=== PATIENT | female | born 1955 | race Caucasian/White ===

== ENCOUNTER → 2018-12-05 16:39 | Outpatient (CLI) | payer OTHER, SELFPAY ==
--- NOTE | 2018-12-05 16:43 | US_ITS ---
STUDY: RENAL ULTRASOUND - COMPLETE REASON FOR EXAM: Female, 63 years old. Recurrent UTI TECHNIQUE: Ultrasound evaluation of the kidneys was performed with real-time and static garcia-scale imaging. COMPARISON: None. FINDINGS: RIGHT KIDNEY: Normal location of the right kidney, which is normal in size. The right kidney measures 11.5 x 6.8 x 6.7 cm. There is a normal cortex of the right kidney. The renal cortex measures 1.5 cm. There is no right renal mass or cyst. There are no right renal calculi. There is moderate hydronephrosis of the right kidney. DISTAL RIGHT URETER: There is non-visualization of the distal right ureter. There is no demonstrated right ureterovesical junction calculus. There is a visualized right ureteral jet. LEFT KIDNEY: Normal location of the left kidney, which is normal in size. The left kidney measures 11.8 x 6.5 x 5.5 cm. There is a normal cortex of the left kidney. The renal cortex measures 1.5 cm. There is no left renal mass or cyst. There are no left renal calculi. There is no left hydronephrosis. DISTAL LEFT URETER: There is non-visualization of the distal left ureter. There is no demonstrated left ureterovesical junction calculus. There is a visualized left ureteral jet. AORTA: There is no demonstrated aneurysm.. I.V.C.: The IVC is patent. BLADDER: The distended urinary bladder has a volume of 147 ml. The empty urinary bladder has a volume of 7.4 ml. There is a normal wall thickness of the distended urinary bladder. There is no demonstrated mass within the urinary bladder. There are no demonstrated bladder calculi. US/Kidney and Bladder IMPRESSION: Moderate right-sided hydronephrosis persistent after voiding. Electronically Signed: Russell Rondon, at 8:15 EDT Tel , Service support ,
== END ==
PROVIDERS: Family Provider Family Medicine; PCP Family Medicine; Referring Provider Urology; Visit Provider Urology
DX: Z87.440 Personal history of urinary (tract) infections (principal)
CPT/HCPCS: 76770

== ENCOUNTER 2018-12-14 08:37 | Inpatient (IN) | payer OTHER, SELFPAY ==
[2018-12-14] VITALS (8 sets, daily range): BP systolic 93–168; BP diastolic 66–82; PULSE 62–121; RESP 16–18; TEMP 36.8–37.2; O2SAT 94–98; BMI 37.3; BMI 101.7
--- NOTE | 2018-12-14 08:52 | CT_ITS ---
STUDY: CT ABDOMEN AND PELVIS WITHOUT CONTRAST REASON FOR EXAM: Female, 63 years old. Left abdominal pain. Recurrent UTIs. RADIATION DOSAGE (If Supplied By Facility): CTDIvol = ( 21.76 ) mGy, DLP = ( 1174.31 ) mGycm TECHNIQUE: Transaxial images were obtained from the dome of the diaphragm to the symphysis pubis without oral contrast, and without intravenous contrast. Sagittal and coronal images were reconstructed. Individualized dose optimization techniques were used for this CT. COMPARISON: Renal ultrasound, December 04, 2018. FINDINGS: The visualized lung bases are unremarkable. The visualized portions of the heart are within normal limits. Liver is mildly enlarged but uniform in density. Normal gallbladder and extrahepatic biliary system. Normal spleen. Normal pancreas. There is a 1.8 x 0.9 x 1 cm hypodense mass in the right adrenal gland. There is a 2.4 x 2.2 x 2.1 cm hypoechoic mass in left adrenal gland. Both suggest adenomas. The right kidney is of normal size cortical thickness. There is marked hydronephrosis. There is a 1.7 x 1.1 x 1.2 cm obstructing calculus at the UPJ. Normal distal ureter. The left kidney is of normal size and cortical thickness. There is mild stranding of the perinephric fat. There is mild hydronephrosis with a 8 mm obstructing calculus in the upper ureter at the level of the L3 vertebra (image 94, series 2). The distal ureter is unremarkable. There is evidence of gastric bypass surgery. Normal small intestine. Normal colon. The appendix is visualized and appears normal. There is diffuse atherosclerotic calcification of the abdominal aorta, without a demonstrated aneurysm. There is an IVC filter in place. Normal retroperitoneum. Normal urinary bladder. S is small in size with multiple calcifications along its periphery and within the broad ligament. No adnexal mass. There is no pelvic lymphadenopathy. No free air or free fluid is seen within the peritoneal cavity. Surgical clips in the right lower abdominal wall. The abdominal wall is otherwise unremarkable. There is flattening of the lumbar lordosis with diffuse degenerative changes. There are mild degenerative changes bilateral hips. CT/Abdomen/Pelvis without Cont IMPRESSION: 1. Large obstructing right UPJ calculus with marked right obstructive uropathy. 2. Left upper ureteral calculus with mild left obstructive uropathy. 3. Bilateral adrenal adenomas 4. Status post gastric bypass surgery. 5. Degenerative changes of the lumbar spine and hips. N.B. : The above information has been verbally conveyed by Dell Burnett DO to Asad Kline MD, on 12/14/2018 09:37:02 (ET). Electronically Signed: Dell Burnett DO at 9:37 EDT Tel [phone], Service support ,
--- NOTE | 2018-12-14 08:53 | ED.VISSUMM ---
- ER Visit Summary Date of Service: 12/14/18 Chief Complaint: Abdominal pain History of Present Illness: The patient is a 63 F with left lower quadrant and left flank pain. Symptoms started fairly suddenly last night around 7 PM. Associated with nausea, hematuria, chills. Patient has a history of kidney stones. She tried Tylenol with no improvement. Patient also reports a history of UTIs and also a right kidney blockage. She sees Dr. Wharton. Physical Examination: Afebrile and vital signs unremarkable. Patient alert and oriented. No acute distress. Heart regular. Lungs clear. Abdomen tender in the left lower quadrant. No guarding or rebound. Skin appears normal without pallor or jaundice. Test Results: Laboratory studies, urinalysis, CT abdomen/pelvis pending. Emergency Department Course and Treatment: Patient treated with morphine and Zofran and IV fluids while awaiting results. CBC unremarkable. Glucose 133, BUN 20, creatinine 1.13. Urine shows leukocyte esterase, 5-10 white cells and 0-[address] shows a large right UPJ calculus measuring 1.7 cm. Left ureteral calculus measuring 8 mm. Bilateral adrenal adenomas and postoperative changes. Patient required multiple doses of pain medication and had continued severe pain. I attempted to call her urologist who was out of town. I spoke with Dr. Allen who will admit for further care. Treatment Plan: As above Disposition: Admission Impression: 1. Ureteral colic This note was generated with [email or web address] dictation software. It may contain incorrect words, spelling, and punctuation that were not noted in review of the chart prior to signing ED Disposition - Plan for ED Patient: Referrals: Jeet Diaz III, MD [Primary Care Provider] -
[2018-12-14] MEDS: 0.9% Normal Saline 1,000 ML 1000 ML IV (08:58)
[2018-12-14] MEDS: Morphine 4 MG/ML Syringe IV (08:58)
[2018-12-14] MEDS: Ondansetron 4 MG/2 ML Vial IV (08:59)
[2018-12-14 09:06] LABS: Bacteria 0 SEEN /hpf (None Seen); Mucous, Urine 0 SEEN /hpf (<or=2+)
[2018-12-14 09:12] LABS: Absolute Lymphocyte Count 2.08 X10^3/ul (0.83-4.51); Absolute Neutrophil Count 7.4 X10^3/uL (2.0-7.7); Basophil# 0.03 X10^3/uL; Basophil% 0.3 % (0-1); Eosinophil# 0.07 X10^3/uL; Eosinophils% 0.7 % (0-5); Hematocrit 39.5 % (37-47); Hemoglobin 13.7 g/dl (12.0-15.0); Lymphocyte # 2.08 X10^3/ul (4.0); Lymphocyte % 20.1 % (19-41); Mean Corp Hgb Conc 34.7 g/gl (32-36); Mean Corpuscular Hgb 31.1 pg (27.0-32.0); Mean Corpuscular Volume 89.8 fL (81-99); Mean Platelet Vol. 9.6 fl (6.2-12.0); Monocyte# 0.74 X10^3/uL; Monocyte% 7.2 % (0-10); Neutrophil # 7.39 X10^3/uL (2.7-7.7); Neutrophil % 71.5 % (47-70); POSITIVE COUNT NO; POSITIVE DIFFERENTIAL NO; POSITIVE MORPHOLOGY NO; Platelet Count 252 K/mm3 (150-450); RBC Distribution Width CV 13.5 % (11.6-14.6); White Blood Count 10.3 K/mm3 (4.4-11.0)
[2018-12-14 09:16] LABS: Color, Urine Yellow (Yellow); Glucose, Dipstick Normal (Normal); Ketone-Dipstick Negative (Negative); Leukocyte Esterase-Dipstick 500 /ul (Negative); Nitrite-Dipstick Negative (Negative); Occult Blood-Urine 150 /ul (Negative); Protein-Dipstick Negative (Negative); Urine Bilirubin Dipstick Negative (Negative); Urine Clarity Clear (Clear); Urine Urobilinogen Normal (Normal)
[2018-12-14 09:23] LABS: Squamous Epithelial Cells - UA 0-5 SEEN /hpf (5-10); White Blood Cells 5-10 SEEN /hpf (0-5)
[2018-12-14 09:24] LABS: Red Blood Cells-Urine 0-5 SEEN /hpf (0-5)
[2018-12-14 09:25] LABS: Anion Gap 7 (5-15); BUN 20 mg/dL (7-18); BUN/Creat Ratio 17.7 RATIO (10-20); Calcium,Total 9.3 mg/dL (8.5-10.1); Chloride 100 mmol/L (98-107); Creatinine, Serum 1.13 mg/dL (0.55-1.02); EST Glomerular Filtration Rate 52 mL/min (>60); Est Glom Filt Rate - Afr Amer 63 mL/min (>60); Estimated Creatinine Clearance 46.45 ml/min; Glucose 133 mg/dL (74-106); Potassium 3.5 mmol/L (3.5-5.1); Sodium Level 137 mmol/L (136-145)
[2018-12-14] MEDS: HYDROmorphone 1 MG/ML Syringe IV ×2 (09:25→10:29)
--- NOTE | 2018-12-14 10:11 | NURSING ---
Admission orders called in by Dr. Allen to this RN
--- NOTE | 2018-12-14 10:52 | PCM.HP.STD ---
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 admit for pain control, plan to placed stents today Past Medical History Allergies No Known Allergies Allergy (Verified 12/14/18 08:38) Home Medications: Ambulatory Orders Medication Instructions Recorded Biotin [Emil Biotin] 5,000 mcg PO DAILY 02/11/14 Calcium Citrate/Vitamin D3 1 each PO BID 02/11/14 [Calcium Citrate-Vit D3 Caplet] Cyanocobalamin [Vitamin B12] 500 mcg PO DAILY@79902/11/14 Ferrous Sulfate 325 mg PO DAILY@79902/11/14 Lisinopril/Hydrochlorothiazide 1 tablet PO DAILY 02/11/14 [Zestoretic 10/12.5 Tablet] Multivitamins,Therapeutic 1 tablet PO DAILY 02/11/14 [Multivitamin] Omeprazole [Prilosec] 20 mg PO BID 02/11/14 Venlafaxine HCl [Effexor] 75 mg PO BID 02/11/14 traZODone [Desyrel] 50 mg PO QHS 02/11/14 Apixaban [Eliquis] 5 mg PO BID 01/18/17 Cephalexin 250 mg PO QHS 12/14/18 Surgical History: no surgical history EMPLOYMENT EDUCATIONAL COORD History: No pertinent EMPLOYMENT EDUCATIONAL COORD history Lives: With Family Smoking Status: Former smoker Tobacco Use: Non-smoker Alcohol: None Drugs: None - *Family History Maternal History Items: No pertinent history Review of Systems Constitutional: Denies: Chills, Fever, Weight Change HEENT: Denies: Head Aches, Sinus Congestion, Sinus Drainage Cardiovascular: Denies: Chest Pain, Palpitations Respiratory: Denies: Cough, Shortness of breath at rest, Sputum production Gastrointestinal: Reports: Abdominal Pain. Denies: Nausea, Vomiting Genitourinary: Denies: Dysuria Musculoskeletal: Denies: Joint Pain, Joint Tenderness Skin: Denies: Rash, Wounds Neurological: Denies: Numbness, Tingling, Focal weakness Psychiatric: Denies: Anxiety, Depression, Homicidal Ideations, Suicidal Ideations Hematologic/ Lymphatic: Denies: Easy Bruising, Easy Bleeding VTE Information - Inpt Only VTE Present on Admission: No VTE Mechan Device Prophylaxis: SCD's Patient Problems: Active and Suspected Problems Renal calculus, bilateral (Acute) bilateral stones h/o DVT has IVC filter - Physical Exam General: Alert, Oriented x3, Cooperative HEENT: Atraumatic, PERRLA, EOMI, Normocephalic Neck: Supple, No JVD, Negative Carotid Bruits Lungs: Clear to auscultation, Normal air movement Cardiovascular: Regular rate, No murmurs Abdomen: Bowel Sounds Present, Soft, Non Tender Extremities: No edema, Capillary Refill Less than 3 Seconds Skin: No rashes, No breakdown Musculoskeletal: No Tenderness to Palpation of Joints or Extremities Neurological: Cranial nerves II-XII grossly intact Psych/Mental Status: Normal Affect, Appropriate Vital Signs Temp Pulse Resp BP Pulse Ox 98.4 F 121 H 17 163/73 H 96 12/14/18 09:41 12/14/18 09:41 12/14/18 08:41 12/14/18 09:41 12/14/18 09:41 Oxygen Delivery Method Room Air Weight: 101.6 kg Body Mass Index (BMI) 37.3 Finger Stick Blood Glucose 156 Laboratory Tests Past 24 Hrs 12/14/18 12/14/18 12/14/18 08:50 08:50 08:55 WBC 10.3 RBC 4.40 Hgb 13.7 Hct 39.5 MCV 89.8 MCH 31.1 MCHC 34.7 RDW 13.5 RDW Differential 44.0 H Plt Count 252 MPV 9.6 Immature Gran % (Auto) 0.200 Neut % (Auto) 71.5 H Lymph % (Auto) 20.1 [place] % (Auto) 7.2 Eos % (Auto) 0.7 Baso % (Auto) 0.3 Absolute Neuts (auto) 7.4 Absolute Lymphs (auto) 2.08 Total Counted Not Reportable Sodium 137 Potassium 3.5 Chloride 100 Carbon Dioxide 30.0 Anion Gap 7 BUN 20 H Creatinine 1.13 H Estim Creat Clear Calc 46.45 Est GFR (MDRD) Af Amer 63 Est GFR (MDRD) Non-Af 52 L BUN/Creatinine Ratio 17.7 Glucose 133 H Calcium 9.3 Urine Color Yellow Urine Clarity Clear Urine pH 5.0 Ur Specific [place] 1.010 Urine Protein Negative Urine Glucose (UA) Normal Urine Ketones Negative Urine Occult Blood 150 H Urine Nitrite Negative Urine Bilirubin Negative Urine Urobilinogen Normal Ur Leukocyte Esterase 500 H Urine RBC 0-5 SEEN Urine WBC 5-10 SEEN Ur Squamous Epith Cells 0-5 SEEN Urine Bacteria 0 SEEN Urine Mucus 0 SEEN Assessment/Plan All Active Problems Renal calculus, bilateral (Acute) NPO consult medical for medical management plan for stent placement b/L late today. obtain consent.
[2018-12-14] MEDS: Ketorolac 15 MG/ML Vial IV ×2 (11:18→18:10)
[2018-12-14] MEDS: 0.9% Normal Saline 1,000 ML 100 ML IV ×2 (11:19→21:23)
--- NOTE | 2018-12-14 11:31 | EKG12_ITS ---
Test Reason : PREOP Blood Pressure : / mmHG Vent. Rate : 052 BPM Atrial Rate : 052 BPM P-R Int : 226 ms QRS Dur : 096 ms QT Int : 422 ms P-R-T Axes : 063 047 033 degrees QTc Int : 392 ms Sinus bradycardia with 1st degree A-V block Otherwise normal ECG When compared with ECG of 20-JAN-2016 16:05, [place] interval has increased Confirmed by IVÁN ROONEY, ALAN ([id number]), restaurant expeditor YARIEL LEBRON ([id number]) on 12/23/2018 2:47:23 PM Referred By: Rajani Wharton Confirmed By:ALAN MINOR MD
[2018-12-14 12:21] LABS: Hemoglobin A1c 6.5 % (4.2-6.3)
[2018-12-14 12:32] LABS: Anion Gap 6 (5-15); BUN 21 mg/dL (7-18); BUN/Creat Ratio 17.9 RATIO (10-20); Calcium,Total 8.7 mg/dL (8.5-10.1); Chloride 103 mmol/L (98-107); Creatinine, Serum 1.17 mg/dL (0.55-1.02); EST Glomerular Filtration Rate 50 mL/min (>60); Est Glom Filt Rate - Afr Amer 60 mL/min (>60); Estimated Creatinine Clearance 44.86 ml/min; Glucose 134 mg/dL (74-106); Potassium 3.6 mmol/L (3.5-5.1); Sodium Level 140 mmol/L (136-145)
--- NOTE | 2018-12-14 12:54 | PCM.PN.HOSP ---
Patient Problems: Active and Suspected Problems Renal calculus, bilateral (Acute) bilateral stones h/o DVT has IVC filter Subjective: 63-year-old female with a history of anxiety and depression, high blood pressure, iron deficiency anemia, and a history of DVT status post IVC filter and is currently on Eliquis, presents to the hospital with left flank pain. It started around 7:00 last night and has not improved. In the ER she had a CT scan of her abdomen and pelvis which demonstrated a right UPJ and a left ureteral calculus. The one on the right is 1.7 cm and the one on the left is 8 mm. She was admitted to Dr. Allen for intervention and stent placement, and medicine was consulted for medical management. She states that she is in her usual health and has not had any changes in her current medical history. Her blood pressures are controlled at home on her current medication and her lab work is unremarkable, she does have a slight increase in her troponin, not enough to indicate an AK I however given her bilateral stones is likely due to obstructive uropathy. She denies any chest pain or an excessive history of bleeding prior to being started on Eliquis. Vitals/I&O's: Vital Signs Temp Pulse Resp BP Pulse Ox 98.5 F 62 18 168/81 H 94 12/14/18 10:52 12/14/18 10:52 12/14/18 10:52 12/14/18 10:52 12/14/18 10:52 Oxygen Delivery Method Room Air Weight: 224 lb 3.362 oz Body Mass Index (BMI) 37.3 Finger Stick Blood Glucose 156 General: Alert, Oriented x3, Cooperative, No apparent distress HEENT: Atraumatic, PERRLA, EOMI, Normocephalic Oral: Moist Mucosa Neck: Supple, No JVD Lungs: Clear to auscultation, Normal air movement, No rhonchi, No wheeze, No rales Cardiovascular: Regular rate, Regular Rhythm, Normal S1, Normal S2, No murmurs Abdomen: Soft, Non Tender, Non-Distended, No Hepato-splenomegaly Extremities: No edema, Capillary Refill Less than 3 Seconds Skin: No rashes, No breakdown Neurological: Neuro grossly intact, Sensory exam intact to light touch and pain Psych/Mental Status: Normal Affect, Appropriate Laboratory Results 12/14/18 08:50: WBC 10.3, RBC 4.40, Hgb 13.7, Hct 39.5, MCV 89.8, MCH 31.1, MCHC 34.7, RDW 13.5, RDW Differential 44.0 H, Plt Count 252, MPV 9.6, Immature Gran % (Auto) 0.200, Neut % (Auto) 71.5 H, Lymph % (Auto) 20.1, [place] % (Auto) 7.2, Eos % (Auto) 0.7, Baso % (Auto) 0.3, Absolute Neuts (auto) 7.4, Absolute Lymphs (auto) 2.08, Total Counted Not Reportable 12/14/18 08:50: Sodium 137, Potassium 3.5, Chloride 100, Carbon Dioxide 30.0, Anion Gap 7, BUN 20 H, Creatinine 1.13 H, Estim Creat Clear Calc 46.45, Est GFR (MDRD) Af Amer 63, Est GFR (MDRD) Non-Af 52 L, BUN/Creatinine Ratio 17.7, Glucose 133 H, Calcium 9.3 12/14/18 08:52: Hemoglobin A1c 6.5 H 12/14/18 08:55: Urine Color Yellow, Urine Clarity Clear, Urine pH 5.0, Ur Specific [place] 1.010, Urine Protein Negative, Urine Glucose (UA) Normal, Urine Ketones Negative, Urine Occult Blood 150 H, Urine Nitrite Negative, Urine Bilirubin Negative, Urine Urobilinogen Normal, Ur Leukocyte Esterase 500 H, Urine RBC 0-5 SEEN, Urine WBC 5-10 SEEN, Ur Squamous Epith Cells 0-5 SEEN, Urine Bacteria 0 SEEN, Urine Mucus 0 SEEN 12/14/18 11:30: Sodium 140, Potassium 3.6, Chloride 103, Carbon Dioxide 31.0, Anion Gap 6, BUN 21 H, Creatinine 1.17 H, Estim Creat Clear Calc 44.86, Est GFR (MDRD) Af Amer 60, Est GFR (MDRD) Non-Af 50 L, BUN/Creatinine Ratio 17.9, Glucose 134 H, Calcium 8.7 Current Medications Acetaminophen (Tylenol) 500 mg PO Q4H PRN PRN PRN Reason: Pain/Headache Docusate Sodium (Colace) 100 mg PO BID DANYELL Enoxaparin Sodium (Lovenox) 40 mg SC BID DANYELL Sodium Chloride () 1,000 mls @ 100 mls/hr IV .Q10H [facility] Last Admin: 12/14/18 11:19 Dose: 100 mls/hr Sodium Chloride () 1,000 mls @ 75 mls/hr IV .[id number] [facility] Last Admin: 12/14/18 12:27 Dose: Not Given Cefazolin Sodium () 1 gm in 50 mls @ 150 mls/hr IV SEND TO OR W/PATIENT ONE Stop: 12/14/18 13:19 Ketorolac Tromethamine (Toradol) 15 mg IV Q6H PRN PRN PRN Reason: PAIN Stop: 12/19/18 10:14 Last Admin: 12/14/18 11:18 Dose: 15 mg Magnesium Hydroxide (Milk Of Magnesia) 15 ml PO DAILY [facility] Morphine Sulfate () 2 - 4 mg IV Q3H PRN PRN PRN Reason: SEVERE PAIN (6-10/10) Ondansetron HCl (Zofran) 4 mg IV Q6H PRN PRN PRN Reason: NAUSEA Sodium Chloride () 5 - 15 ml IV UD PRN PRN Reason: SALINE FLUSH Medical Necessity - Tobacco Use Smoking Status: Former smoker Tobacco Use: Non-smoker Assessment/Plan All Active Problems Renal calculus, bilateral (Acute) 1. Right UPJ stone and left ureteral stone/worsening renal function -Pain meds per primary, proceed with stent placement low risk for surgery -Could likely discharge tonight if she recovers from anesthesia and is feeling well -Anticipate renal function returned to baseline once the stones are removed -Not quite bad enough to be considered an ORION. 2. History of DVT -She has an IVC filter in place can continue with Eliquis if okay with urology -I discussed with her that because she has had 2 provoked blood clots that she may not necessarily need to be on lifelong Eliquis and to follow-up with a slack cooper on discharge 3. HTN -Stable, there is a slight increase likely secondary to pain -Continue with her lisinopril and hydrochlorothiazide 4. Iron deficiency anemia -Hemoglobin is stable at 13.7 -Continue with home iron 5. GERD -Stable -Continue with home PPI 6. Depression/anxiety -Stable -Continue with Effexor and trazodone DVT: Eliquis Code Visit Inpatient E&M: [id number] [place] [address]
--- NOTE | 2018-12-14 13:01 | PN_ITS ---
Patient Problems: Active and Suspected Problems Renal calculus, bilateral (Acute) bilateral stones h/o DVT has IVC filter Subjective: 63-year-old female with a history of anxiety and depression, high blood pressure, iron deficiency anemia, and a history of DVT status post IVC filter and is currently on Eliquis, presents to the hospital with left flank pain. It started around 7:00 last night and has not improved. In the ER she had a CT scan of her abdomen and pelvis which demonstrated a right UPJ and a left ureteral calculus. The one on the right is 1.7 cm and the one on the left is 8 mm. She was admitted to Dr. Allen for intervention and stent placement, and medicine was consulted for medical management. She states that she is in her usual health and has not had any changes in her current medical history. Her blood pressures are controlled at home on her current medication and her lab work is unremarkable, she does have a slight increase in her troponin, not enough to indicate an AK I however given her bilateral stones is likely due to obstructive uropathy. She denies any chest pain or an excessive history of bleeding prior to being started on Eliquis. Vitals/I&O's: Vital Signs Temp Pulse Resp BP Pulse Ox 98.5 F 62 18 168/81 H 94 12/14/18 10:52 12/14/18 10:52 12/14/18 10:52 12/14/18 10:52 12/14/18 10:52 Oxygen Delivery Method Room Air Weight: 224 lb 3.362 oz Body Mass Index (BMI) 37.3 Finger Stick Blood Glucose 156 General: Alert, Oriented x3, Cooperative, No apparent distress HEENT: Atraumatic, PERRLA, EOMI, Normocephalic Oral: Moist Mucosa Neck: Supple, No JVD Lungs: Clear to auscultation, Normal air movement, No rhonchi, No wheeze, No rales Cardiovascular: Regular rate, Regular Rhythm, Normal S1, Normal S2, No murmurs Abdomen: Soft, Non Tender, Non-Distended, No Hepato-splenomegaly Extremities: No edema, Capillary Refill Less than 3 Seconds Skin: No rashes, No breakdown Neurological: Neuro grossly intact, Sensory exam intact to light touch and pain Psych/Mental Status: Normal Affect, Appropriate Laboratory Results 12/14/18 08:50: WBC 10.3, RBC 4.40, Hgb 13.7, Hct 39.5, MCV 89.8, MCH 31.1, MCHC 34.7, RDW 13.5, RDW Differential 44.0 H, Plt Count 252, MPV 9.6, Immature Gran % (Auto) 0.200, Neut % (Auto) 71.5 H, Lymph % (Auto) 20.1, [place] % (Auto) 7.2, Eos % (Auto) 0.7, Baso % (Auto) 0.3, Absolute Neuts (auto) 7.4, Absolute Lymphs (auto) 2.08, Total Counted Not Reportable 12/14/18 08:50: Sodium 137, Potassium 3.5, Chloride 100, Carbon Dioxide 30.0, Anion Gap 7, BUN 20 H, Creatinine 1.13 H, Estim Creat Clear Calc 46.45, Est GFR (MDRD) Af Amer 63, Est GFR (MDRD) Non-Af 52 L, BUN/Creatinine Ratio 17.7, Glucose 133 H, Calcium 9.3 12/14/18 08:52: Hemoglobin A1c 6.5 H 12/14/18 08:55: Urine Color Yellow, Urine Clarity Clear, Urine pH 5.0, Ur Specific [place] 1.010, Urine Protein Negative, Urine Glucose (UA) Normal, Urine Ketones Negative, Urine Occult Blood 150 H, Urine Nitrite Negative, Urine Bilirubin Negative, Urine Urobilinogen Normal, Ur Leukocyte Esterase 500 H, Urine RBC 0-5 SEEN, Urine WBC 5-10 SEEN, Ur Squamous Epith Cells 0-5 SEEN, Urine Bacteria 0 SEEN, Urine Mucus 0 SEEN 12/14/18 11:30: Sodium 140, Potassium 3.6, Chloride 103, Carbon Dioxide 31.0, Anion Gap 6, BUN 21 H, Creatinine 1.17 H, Estim Creat Clear Calc 44.86, Est GFR (MDRD) Af Amer 60, Est GFR (MDRD) Non-Af 50 L, BUN/Creatinine Ratio 17.9, Glucose 134 H, Calcium 8.7 Current Medications Acetaminophen (Tylenol) 500 mg PO Q4H PRN PRN PRN Reason: Pain/Headache Docusate Sodium (Colace) 100 mg PO BID DANYELL Enoxaparin Sodium (Lovenox) 40 mg SC BID DANYELL Sodium Chloride () 1,000 mls @ 100 mls/hr IV .Q10H [facility] Last Admin: 12/14/18 11:19 Dose: 100 mls/hr Sodium Chloride () 1,000 mls @ 75 mls/hr IV .[id number] [facility] Last Admin: 12/14/18 12:27 Dose: Not Given Cefazolin Sodium () 1 gm in 50 mls @ 150 mls/hr IV SEND TO OR W/PATIENT ONE Stop: 12/14/18 13:19 Ketorolac Tromethamine (Toradol) 15 mg IV Q6H PRN PRN PRN Reason: PAIN Stop: 12/19/18 10:14 Last Admin: 12/14/18 11:18 Dose: 15 mg Magnesium Hydroxide (Milk Of Magnesia) 15 ml PO DAILY [facility] Morphine Sulfate () 2 - 4 mg IV Q3H PRN PRN PRN Reason: SEVERE PAIN (6-10/10) Ondansetron HCl (Zofran) 4 mg IV Q6H PRN PRN PRN Reason: NAUSEA Sodium Chloride () 5 - 15 ml IV UD PRN PRN Reason: SALINE FLUSH Medical Necessity - Tobacco Use Smoking Status: Former smoker Tobacco Use: Non-smoker Assessment/Plan All Active Problems Renal calculus, bilateral (Acute) 1. Right UPJ stone and left ureteral stone/worsening renal function -Pain meds per primary, proceed with stent placement low risk for surgery -Could likely discharge tonight if she recovers from anesthesia and is feeling well -Anticipate renal function returned to baseline once the stones are removed -Not quite bad enough to be considered an ORION. 2. History of DVT -She has an IVC filter in place can continue with Eliquis if okay with urology -I discussed with her that because she has had 2 provoked blood clots that she may not necessarily need to be on lifelong Eliquis and to follow-up with a loftsman/woman on discharge 3. HTN -Stable, there is a slight increase likely secondary to pain -Continue with her lisinopril and hydrochlorothiazide 4. Iron deficiency anemia -Hemoglobin is stable at 13.7 -Continue with home iron 5. GERD -Stable -Continue with home PPI 6. Depression/anxiety -Stable -Continue with Effexor and trazodone DVT: Eliquis Code Visit Inpatient E&M: [id number] [place] [id number]
--- NOTE | 2018-12-14 14:18 | CM.UR ---
RN CM Assessment Met face to face with patient for initial transition planning/care coordination assessment. Introduced myself and my role. Verb understanding and agreement for assessment. Presentation: Left lower abd and left flank pain PCP: shiva Specialists: none previously Preferred [facility]acy: [facility] Insurance: [employer] Prescription Benefit: yes able to afford medications. LNOK: [place] Home: 1 story, 3 steps in--able to complete w/o difficulty. ADLs: Independent with all ADLs. Transportation: Drives self DME: cpap from [facility]. SNF/HHC: none Passport/waiver delivery mgr: NA Advance Directives: None on file. DPOA is Neymar. He was previously notified to bring them in. DC PLAN: Home, no needs anticipated. Elisabeth Chase RN, CCM.
[2018-12-14 14:48] LABS: Anion Gap 4 (5-15); BUN 20 mg/dL (7-18); BUN/Creat Ratio 17.4 RATIO (10-20); Calcium,Total 8.6 mg/dL (8.5-10.1); Chloride 105 mmol/L (98-107); Creatinine, Serum 1.15 mg/dL (0.55-1.02); EST Glomerular Filtration Rate 51 mL/min (>60); Est Glom Filt Rate - Afr Amer 62 mL/min (>60); Estimated Creatinine Clearance 45.64 ml/min; Glucose 106 mg/dL (74-106); Potassium 3.9 mmol/L (3.5-5.1); Sodium Level 140 mmol/L (136-145)
--- NOTE | 2018-12-14 15:45 | CALC_PTH ---
PATIENT: ART BLUE LOC: MS3 U#:[id number] AGE/SX: 63/F ROOM: MS305 RE12/14/[address]: Dr. Denzel Allen MD : [id number] BED: 1 DIS: 12/15/2018 SPEC #: [id number] RECD: 12/17/18 09:32 STATUS: WINTER STEPHEN #: [id number] CLAUDIO: 12/14/18 15:[address]: Denzel Allen DEPT: SURGICAL PATHOLOGY RECD BY: Nikos Peters ENTERED: 12/17/18 12:19 SP TYPE: Calculi OTHR DR: MD Dr. Kenney Talavera III, MD Tissues: CALCULI Procedures: Surgery Specimen Level I HEADER OPERATION: Cysto, insertion stent, laser stone lithotripsy, balloon dilation PRE-OP DIAGNOSIS: Bilateral renal calculus TISSUE SUBMITTED: Ureteral calculi GROSS DIAGNOSIS Ureteral calculus, removal: Unremarkable calculus (gross diagnosis only). AM:farzaneh 12/18/18 COMMENT If chemical analysis is requested on this specimen, please notify the laboratory. GROSS DESCRIPTION Received in fixative is one container labeled with the patient's name and designated ureteral calculus. The specimen consists of a single irregular dark rodriguez calculus measuring 0.2 x 0.1 x 0.1 cm. / AM:farzaneh 12/17/18 CPT: 52331
[2018-12-14 17:21] LABS: Anion Gap 2 (5-15); BUN 22 mg/dL (7-18); BUN/Creat Ratio 17.3 RATIO (10-20); Calcium,Total 8.9 mg/dL (8.5-10.1); Chloride 106 mmol/L (98-107); Creatinine, Serum 1.27 mg/dL (0.55-1.02); EST Glomerular Filtration Rate 45 mL/min (>60); Est Glom Filt Rate - Afr Amer 55 mL/min (>60); Estimated Creatinine Clearance 41.33 ml/min; Glucose 101 mg/dL (74-106); Potassium 4.3 mmol/L (3.5-5.1); Sodium Level 141 mmol/L (136-145)
[2018-12-14] MEDS: 0.9% NaCl Peripheral Flush Adult/Peds IV (18:11)
[2018-12-14 19:02] LABS: Anion Gap 4 (5-15); BUN 22 mg/dL (7-18); BUN/Creat Ratio 15.9 RATIO (10-20); Calcium,Total 8.7 mg/dL (8.5-10.1); Chloride 104 mmol/L (98-107); Creatinine, Serum 1.38 mg/dL (0.55-1.02); EST Glomerular Filtration Rate 41 mL/min (>60); Est Glom Filt Rate - Afr Amer 50 mL/min (>60); Estimated Creatinine Clearance 38.03 ml/min; Glucose 125 mg/dL (74-106); Sodium Level 139 mmol/L (136-145)
[2018-12-14] MEDS: Ciprofloxacin 400 MG/200 ML BAG 200 MG IV (21:23)
[2018-12-14] MEDS: Morphine 2 MG/ML Syringe IV (21:30)
[2018-12-14 21:31] LABS: Anion Gap 3 (5-15); BUN 23 mg/dL (7-18); BUN/Creat Ratio 15.5 RATIO (10-20); Calcium,Total 8.4 mg/dL (8.5-10.1); Chloride 105 mmol/L (98-107); Creatinine, Serum 1.48 mg/dL (0.55-1.02); EST Glomerular Filtration Rate 38 mL/min (>60); Est Glom Filt Rate - Afr Amer 46 mL/min (>60); Estimated Creatinine Clearance 35.46 ml/min; Glucose 123 mg/dL (74-106); Potassium 3.8 mmol/L (3.5-5.1); Sodium Level 138 mmol/L (136-145)
[2018-12-14 22:54] LABS: Anion Gap 4 (5-15); BUN 23 mg/dL (7-18); BUN/Creat Ratio 15.1 RATIO (10-20); Calcium,Total 8.3 mg/dL (8.5-10.1); Chloride 104 mmol/L (98-107); Creatinine, Serum 1.52 mg/dL (0.55-1.02); EST Glomerular Filtration Rate 37 mL/min (>60); Est Glom Filt Rate - Afr Amer 45 mL/min (>60); Estimated Creatinine Clearance 34.53 ml/min; Glucose 129 mg/dL (74-106); Potassium 3.8 mmol/L (3.5-5.1); Sodium Level 138 mmol/L (136-145)
[2018-12-15] VITALS (7 sets, daily range): BP systolic 121–144; BP diastolic 52–74; PULSE 59–82; RESP 16–18; TEMP 36.3–37.1; O2SAT 94–99; BMI 37.3; BMI 101.7
[2018-12-15] MEDS: Ketorolac 15 MG/ML Vial IV ×2 (00:19→06:27)
[2018-12-15] MEDS: Morphine 2 MG/ML Syringe IV (05:34)
[2018-12-15 06:03] LABS: Hemoglobin 11.4 g/dl (12.0-15.0); Mean Corp Hgb Conc 32.6 g/gl (32-36); Mean Corpuscular Hgb 30.2 pg (27.0-32.0); Mean Corpuscular Volume 92.6 fL (81-99); Platelet Count 222 K/mm3 (150-450); RBC Distribution Width CV 13.6 % (11.6-14.6); Red Blood Count 3.78 M/mm3 (4.2-5.4); White Blood Count 7.2 K/mm3 (4.4-11.0)
[2018-12-15 06:15] LABS: Scan Indicated on CBC? Y/N NO
--- NOTE | 2018-12-15 07:01 | PCM.PROGNOTE ---
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 This morning we plan to proceed with surgery we will go ahead and laser the stone since she has been off the Eliquis for 24 hours - Physical Exam General: Alert, Oriented x3, Cooperative HEENT: Atraumatic, PERRLA, EOMI, Normocephalic Neck: Supple, No JVD, Negative Carotid Bruits Lungs: Clear to auscultation, Normal air movement Cardiovascular: Regular rate, No murmurs Abdomen: Bowel Sounds Present, Soft, Non Tender Extremities: No edema, Capillary Refill Less than 3 Seconds Skin: No rashes, No breakdown Musculoskeletal: No Tenderness to Palpation of Joints or Extremities Neurological: Cranial nerves II-XII grossly intact Psych/Mental Status: Normal Affect, Appropriate Vital Signs Temp Pulse Resp BP Pulse Ox 98.8 F 60 16 144/72 H 98 12/15/18 06:28 12/15/18 06:28 12/15/18 06:28 12/15/18 06:28 12/15/18 06:28 Oxygen Delivery Method Room Air Weight: 101.7 kg Body Mass Index (BMI) 37.3 Finger Stick Blood Glucose 156 Intake and Output for Last 24 Hours 12/13/18 12/14/18 12/15/18 23:59 23:59 23:59 Intake Total 945 / 945 2127 / 2127 Output Total 1000 / 1000 675 / 675 Balance -55 / -55 1452 / 1452 Laboratory Tests Past 24 Hrs 12/14/18 12/14/18 12/14/18 08:50 08:50 08:52 WBC 10.3 RBC 4.40 Hgb 13.7 Hct 39.5 MCV 89.8 MCH 31.1 MCHC 34.7 RDW 13.5 RDW Differential 44.0 H Plt Count 252 MPV 9.6 Immature Gran % (Auto) 0.200 Neut % (Auto) 71.5 H Lymph % (Auto) 20.1 Marion % (Auto) 7.2 Eos % (Auto) 0.7 Baso % (Auto) 0.3 Absolute Neuts (auto) 7.4 Absolute Lymphs (auto) 2.08 Total Counted Not Reportable Sodium 137 Potassium 3.5 Chloride 100 Carbon Dioxide 30.0 Anion Gap 7 BUN 20 H Creatinine 1.13 H Estim Creat Clear Calc 46.45 Est GFR (MDRD) Af Amer 63 Est GFR (MDRD) Non-Af 52 L BUN/Creatinine Ratio 17.7 Glucose 133 H Hemoglobin A1c 6.5 H Calcium 9.3 Urine Color Urine Clarity Urine pH Ur Specific [place] Urine Protein Urine Glucose (UA) Urine Ketones Urine Occult Blood Urine Nitrite Urine Bilirubin Urine Urobilinogen Ur Leukocyte Esterase Urine RBC Urine WBC Ur Squamous Epith Cells Urine Bacteria Urine Mucus 12/14/18 12/14/18 12/14/18 08:55 11:30 14:20 WBC RBC Hgb Hct MCV MCH MCHC RDW RDW Differential Plt Count MPV Immature Gran % (Auto) Neut % (Auto) Lymph % (Auto) Marion % (Auto) Eos % (Auto) Baso % (Auto) Absolute Neuts (auto) Absolute Lymphs (auto) Total Counted Sodium 140 140 Potassium 3.6 3.9 Chloride 103 105 Carbon Dioxide 31.0 31.0 Anion Gap 6 4 L BUN 21 H 20 H Creatinine 1.17 H 1.15 H Estim Creat Clear Calc 44.86 45.64 Est GFR (MDRD) Af Amer 60 62 Est GFR (MDRD) Non-Af 50 L 51 L BUN/Creatinine Ratio 17.9 17.4 Glucose 134 H 106 Hemoglobin A1c Calcium 8.7 8.6 Urine Color Yellow Urine Clarity Clear Urine pH 5.0 Ur Specific [place] 1.010 Urine Protein Negative Urine Glucose (UA) Normal Urine Ketones Negative Urine Occult Blood 150 H Urine Nitrite Negative Urine Bilirubin Negative Urine Urobilinogen Normal Ur Leukocyte Esterase 500 H Urine RBC 0-5 SEEN Urine WBC 5-10 SEEN Ur Squamous Epith Cells 0-5 SEEN Urine Bacteria 0 SEEN Urine Mucus 0 SEEN 12/14/18 12/14/18 12/14/18 16:55 18:35 20:55 WBC RBC Hgb Hct MCV MCH MCHC RDW RDW Differential Plt Count MPV Immature Gran % (Auto) Neut % (Auto) Lymph % (Auto) Marion % (Auto) Eos % (Auto) Baso % (Auto) Absolute Neuts (auto) Absolute Lymphs (auto) Total Counted Sodium 141 139 138 Potassium 4.3 4.0 3.8 Chloride 106 104 105 Carbon Dioxide 33.0 H 31.0 30.0 Anion Gap 2 L 4 L 3 L BUN 22 H 22 H 23 H Creatinine 1.27 H 1.38 H 1.48 H Estim Creat Clear Calc 41.33 38.03 35.46 Est GFR (MDRD) Af Amer 55 L 50 L 46 L Est GFR (MDRD) Non-Af 45 L 41 L 38 L BUN/Creatinine Ratio 17.3 15.9 15.5 Glucose 101 125 H 123 H Hemoglobin A1c Calcium 8.9 8.7 8.4 L Urine Color Urine Clarity Urine pH Ur Specific [place] Urine Protein Urine Glucose (UA) Urine Ketones Urine Occult Blood Urine Nitrite Urine Bilirubin Urine Urobilinogen Ur Leukocyte Esterase Urine RBC Urine WBC Ur Squamous Epith Cells Urine Bacteria Urine Mucus 12/14/18 12/15/18 22:35 05:35 WBC 7.2 RBC 3.78 L Hgb 11.4 L Hct 35.0 L MCV 92.6 MCH 30.2 MCHC 32.6 RDW 13.6 RDW Differential 45.0 H Plt Count 222 MPV 10.0 Immature Gran % (Auto) Neut % (Auto) Lymph % (Auto) Marion % (Auto) Eos % (Auto) Baso % (Auto) Absolute Neuts (auto) Absolute Lymphs (auto) Total Counted Sodium 138 Potassium 3.8 Chloride 104 Carbon Dioxide 30.0 Anion Gap 4 L BUN 23 H Creatinine 1.52 H Estim Creat Clear Calc 34.53 Est GFR (MDRD) Af Amer 45 L Est GFR (MDRD) Non-Af 37 L BUN/Creatinine Ratio 15.1 Glucose 129 H Hemoglobin A1c Calcium 8.3 L Urine Color Urine Clarity Urine pH Ur Specific [place] Urine Protein Urine Glucose (UA) Urine Ketones Urine Occult Blood Urine Nitrite Urine Bilirubin Urine Urobilinogen Ur Leukocyte Esterase Urine RBC Urine WBC Ur Squamous Epith Cells Urine Bacteria Urine Mucus Medical Necessity - Tobacco Use Smoking Status: Former smoker Tobacco Use: Non-smoker Assessment/Plan All Active Problems Renal calculus, bilateral (Acute) 63-year-old female with bilateral renal calculi history of DVT and 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 Possible discharge later today this afternoon the patient is doing well.
--- NOTE | 2018-12-15 07:04 | DCINST_ITS ---
Discharge Diet: Light diet - advance as tolerated Discharge Activity: Return to Normal Activity Call your doctor if your incision/area has: Continuous Slow Oozing, Sudden Increased Bleeding, Increased Pain/ Swelling, Increased Redness, Foul Smelling Discharge, Swelling at the incision site Call your doctor if you observe: Fever of 101 or Higher, Inability to have a bowel movement, Calf discomfort, Uncontrolled pain Suture Line Care: Avoid Pulling/Pushing, Avoid Pinching/Bending Allergies/Adverse Reactions: Allergies No Known Allergies Allergy (Verified 12/14/18 08:38) Medications to take at Discharge Biotin [Emil Biotin] 5,000 mcg PO DAILY 02/11/14 Calcium Citrate/Vitamin D3 [Calcium Citrate-Vit D3 Caplet] 1 each PO BIDCM 02/11/14 Cyanocobalamin [Vitamin B12] 500 mcg PO DAILY@79902/11/14 Ferrous Sulfate 325 mg PO DAILY@79902/11/14 Lisinopril/Hydrochlorothiazide [Zestoretic 10/12.5 Tablet] 1 tablet PO DAILY 02/11/14 Multivitamins,Therapeutic [Multivitamin] 1 tablet PO DAILY 02/11/14 Omeprazole [Prilosec] 20 mg PO BID 02/11/14 Venlafaxine HCl [Effexor] 75 mg PO BID 02/11/14 traZODone [Desyrel] 50 mg PO QHS 02/11/14 Apixaban [Eliquis] 5 mg PO BID 01/18/17 Cephalexin 250 mg PO QHS 12/14/18 Primary Care Physician: Jeet Diaz III, MD [Primary Care Provider] - Test Results: Test results from this visit will be discussed in further detail at your follow- up appointment, if applicable. Please Follow Up With: Denzel Allen MD When: please call to make an appointment, to remove stent, KUB before.
[2018-12-15 07:05] LABS: Bedside Glucose 115 mg/dL (70-110)
[2018-12-15] MEDS: Cefazolin 1 GM/50 ML BAG IV (07:05)
--- NOTE | 2018-12-15 09:11 | OP.PCM_ITS ---
Problem List (1) Renal calculus, bilateral Status: Acute Comment: bilateral stones h/o DVT has IVC filter Report of Operation Date of Procedure: 12/15/18 Pre-Operative Diagnosis: Left ureteral calculi causing obstruction, hydronephrosis, severe pain, right ureteral calculi proximal causing obstruction and hydronephrosis and pain, history of recurrent bladder infections. Post-Operative Diagnosis: Same Surgery/Procedure Performed:: Cystoscopy, left retrograde pyelogram, balloon dilation of the left ureter, left ureteroscopy laser lithotripsy of stones, interpretation of fluoroscopic images, left stent placement. Cystoscopy, balloon dilation of the right ureter, right ureteroscopy laser lithotripsy of a very large stone in the proximal right ureter interpretation of fluoroscopic i mages, placement of a right axis sheath and right stent placement. Description of Surgical Findings:: Indication 63-year-old female admitted to the hospital bilateral obstruction with a stone coming down the left side and the large obstructing stone in the right kidney she was admitted for pain control her blood thinners were held for 24 hours and then we proceeded with surgery to laser the stones on both sides she was agreeable with proceeding with the procedure and agreeable with having the stones lasered the other option discussed with the patient was just placed in a stent and interval laser the stones at a later setting we talked about these options but she wanted to proceed with laser lithotripsy at this point I thought it be safe to proceed since she has been off her Eliquis for at least 24 hours. 63-year-old female taken back to the operating room at the smooth induction of general anesthesia she was placed in dorsolithotomy position the urethra vaginal area were prepped and draped in usual sterile fashion went into the bladder and performed a cystoscopy identified the left and right ureteral orifice identified the bladder trigone the bladder wall left and right posterior and anterior dome were all clear of any tumors no signs of any abnormalities into the bladder the urethra was normal vaginal area was a little mild atrophy normal for age. No significant rectocele or cystocele noted. I then cannulated the left ureteral orifice with a Glidewire and immediately got in a reflux of bloody urine from the left side could feel the wire hit the stone under fluoroscopy the stone had moved down to the distal ureter I then balloon dilated the distal ureter with a 15 Bulgarian 10 cm balloon dilator left the wire in place went up with a repeat ure teroscope and immediately encountered a stone about 6 mm in size in the distal left ureter. A 270 ?m laser fiber was then used to laser the stone little tiny pieces all the pieces then passed out of the ureter and had a basket some of the fragments in the distal ureter I then performed a retrograde pyelogram interpreted fluoroscopic images look like the contrast was going up nicely, went all the way to the kidney with the ureteroscope that and inspected the upper pole midpole lower pole no other major fragments of sloughing tissue within the knee but no other major stone seen in the left side worked my way down the ureter over the wire then backloaded the scope and place a stent in the left side stent left the string of the stent for extraction in the future. I then went to the other side on the right side identified the right ureteral orifice advanced a wire up could see the wire go up to the stone the wire then coiled did not go past the stone this is a very large 1.2 cm stone impacted in the proximal right ureter right at the UPJ I then advanced a 0.035 wire next to this 1 and this wire went past the stone and coiled in the kidney left is wire in place as a safety wire then over the working wire I balloon dilated the distal ureter but after balloon dilated the distal ureter I advanced an access sheath over the working wire the access sheath reached the stone in the UPJ but not past it I then pulled out the wire and the stylette within the access sheath and then went through the access sheath with the ureteroscope in order to get the stone started lasering the stone with a 270 ?m laser fiber used energy settings of 0.6 J and 6 Hz slowly increased by power up to 1 J and 10 Hz kept lasering focusing only on the middle part of the stone as the stone was impacted and with all the stone impacted in the ureter on the edges did not want did not want to laser the edges to avoid injury to the mucosa and the ureter as well as lasering the stone in the middle finally I reached the other side of the stone was able to break the stone in half when this happened and the stone broke loose from the ureter and migrated up into the kidney then I continued lasering the stone li ttle tiny fragments able to pick some smaller fragments trapped the center calyx and laser the little tiny fragments and then the much larger fragment was laser little tiny fragments again put the patient in Trendelenburg had all the stones migrated to the upper pole and then tracked the stone in the upper pole and then basically internally stones a tiny pieces of dust lasering for quite some long time after an extensive amount of lasering performed a retrograde pyelogram could see the anatomy interpreted the fluoroscopic images then backloaded pulled out the stylette worked my way down the ureter check the ureter with the ureteroscope no major injury or trauma along the course of the ureter then over the wire I place a stent it was a 6 Bulgarian by 26 cm stent stent coiled in the kidney bladder good position left the string on the stent drained the patient's bladder the patient is currently being extubated from anesthesia plan to see her back in 1 week we will let the stents leaving for 1 week to lateral stone fragments pass will need to see her in the office with an x-ray of the x-rays clear then we can pull the strings of the stent to get rid of the stent on both sides. She will be kept in the hospital for the rest of the day but if clinically she is doing well discharge her later today. Type of Anesthesia:: General - Admit VTE Documentation VTE Present on Admission: No VTE Mechan Device Prophylaxis: SCD's
[2018-12-15] MEDS: Ipratropium/Albuterol Sulfate 3 ML AMPUL.NEB INHALATION (09:30)
[2018-12-15 09:36] LABS: Bedside Glucose 141 mg/dL (70-110)
[2018-12-15] MEDS: 0.9% Normal Saline 1,000 ML 100 ML IV (12:25)
[2018-12-15] MEDS: Ciprofloxacin 400 MG/200 ML BAG 200 MG IV (12:28)
--- NOTE | 2018-12-15 12:58 | PCM.PN.HOSP ---
Patient Problems: Active and Suspected Problems Renal calculus, bilateral (Acute) bilateral stones h/o DVT has IVC filter Subjective: Doing well feels much better after her procedure. She states her diarrhea was secondary to the fact that she took a lot of milk of mag when she did not know why she was having abdominal pain Vitals/I&O's: Vital Signs Temp Pulse Resp BP Pulse Ox 97.8 F 59 L 18 121/52 H 94 12/15/18 10:15 12/15/18 10:15 12/15/18 10:15 12/15/18 10:15 12/15/18 10:15 Oxygen Flow Rate (L/min) 2 Oxygen Delivery Method Nasal Cannula Weight: 224 lb 3.362 oz Body Mass Index (BMI) 37.3 Finger Stick Blood Glucose 141 Intake and Output for Last 24 Hours 12/13/18 12/14/18 12/15/18 23:59 23:59 23:59 Intake Total 945 / 945 3182 / 3182 Output Total 1000 / 1000 1075 / 1075 Balance -55 / -55 2106 / 2106 General: Alert, Oriented x3, Cooperative, No apparent distress HEENT: Atraumatic, PERRLA, EOMI, Normocephalic Oral: Moist Mucosa Neck: Supple, No JVD Lungs: Clear to auscultation, Normal air movement, No rhonchi, No wheeze, No rales Cardiovascular: Regular rate, Regular Rhythm, Normal S1, Normal S2, No murmurs Abdomen: Soft, Non Tender, Non-Distended, No Hepato-splenomegaly Extremities: No edema, Capillary Refill Less than 3 Seconds Skin: No rashes, No breakdown Neurological: Neuro grossly intact, Sensory exam intact to light touch and pain Psych/Mental Status: Normal Affect, Appropriate Microbiology Past 72 Hours 12/15/18 04:36 Stool Stool Occult Blood (RIN) - Final Occult Blood Positive 12/15/18 04:36 Stool Stool Lactoferrin - Final 12/15/18 04:36 Stool C. difficile DNA Amplification - Final Laboratory Results 12/14/18 14:20: Sodium 140, Potassium 3.9, Chloride 105, Carbon Dioxide 31.0, Anion Gap 4 L, BUN 20 H, Creatinine 1.15 H, Estim Creat Clear Calc 45.64, Est GFR (MDRD) Af Amer 62, Est GFR (MDRD) Non-Af 51 L, BUN/Creatinine Ratio 17.4, Glucose 106, Calcium 8.6 12/14/18 16:55: Sodium 141, Potassium 4.3, Chloride 106, Carbon Dioxide 33.0 H, Anion Gap 2 L, BUN 22 H, Creatinine 1.27 H, Estim Creat Clear Calc 41.33, Est GFR (MDRD) Af Amer 55 L, Est GFR (MDRD) Non-Af 45 L, BUN/Creatinine Ratio 17.3, Glucose 101, Calcium 8.9 12/14/18 18:35: Sodium 139, Potassium 4.0, Chloride 104, Carbon Dioxide 31.0, Anion Gap 4 L, BUN 22 H, Creatinine 1.38 H, Estim Creat Clear Calc 38.03, Est GFR (MDRD) Af Amer 50 L, Est GFR (MDRD) Non-Af 41 L, BUN/Creatinine Ratio 15.9, Glucose 125 H, Calcium 8.7 12/14/18 20:55: Sodium 138, Potassium 3.8, Chloride 105, Carbon Dioxide 30.0, Anion Gap 3 L, BUN 23 H, Creatinine 1.48 H, Estim Creat Clear Calc 35.46, Est GFR (MDRD) Af Amer 46 L, Est GFR (MDRD) Non-Af 38 L, BUN/Creatinine Ratio 15.5, Glucose 123 H, Calcium 8.4 L 12/14/18 22:35: Sodium 138, Potassium 3.8, Chloride 104, Carbon Dioxide 30.0, Anion Gap 4 L, BUN 23 H, Creatinine 1.52 H, Estim Creat Clear Calc 34.53, Est GFR (MDRD) Af Amer 45 L, Est GFR (MDRD) Non-Af 37 L, BUN/Creatinine Ratio 15.1, Glucose 129 H, Calcium 8.3 L 12/15/18 05:35: WBC 7.2, RBC 3.78 L, Hgb 11.4 L, Hct 35.0 L, MCV 92.6, MCH 30.2, MCHC 32.6, RDW 13.6, RDW Differential 45.0 H, Plt Count 222, MPV 10.0 12/15/18 06:41: POC Glucose 115 H 12/15/18 09:26: POC Glucose 141 H Current Medications Acetaminophen (Tylenol) 500 mg PO Q4H PRN PRN PRN Reason: Pain/Headache Docusate Sodium (Colace) 100 mg PO BID [facility] Last Admin: 12/15/18 12:28 Dose: Not Given Sodium Chloride () 1,000 mls @ 100 mls/hr IV .Q10H [facility] Last Admin: 12/15/18 12:25 Dose: 100 mls/hr Sodium Chloride () 1,000 mls @ 75 mls/hr IV .[id number] [facility] Last Admin: 12/15/18 00:11 Dose: Not Given Ciprofloxacin (Cipro) 400 mg in 200 mls @ 200 mls/hr IV Q12 [facility] Last Admin: 12/15/18 12:28 Dose: 200 mls/hr Ketorolac Tromethamine (Toradol) 15 mg IV Q6H PRN PRN PRN Reason: PAIN Stop: 12/19/18 10:14 Last Admin: 12/15/18 06:27 Dose: 15 mg Magnesium Hydroxide (Milk Of Magnesia) 15 ml PO DAILY [facility] Last Admin: 12/15/18 12:31 Dose: Not Given Morphine Sulfate () 2 - 4 mg IV Q3H PRN PRN PRN Reason: SEVERE PAIN (6-10/10) Last Admin: 12/15/18 05:34 Dose: 2 mg Ondansetron HCl (Zofran) 4 mg IV Q6H PRN PRN PRN Reason: NAUSEA Sodium Chloride () 5 - 15 ml IV UD PRN PRN Reason: SALINE FLUSH Last Admin: 12/14/18 18:11 Dose: 10 ml Medical Necessity - Tobacco Use Smoking Status: Former smoker Tobacco Use: Non-smoker Assessment/Plan All Active Problems Renal calculus, bilateral (Acute) 1. Right UPJ stone and left ureteral stone/worsening renal function -Pain meds per primary, proceed with stent placement low risk for surgery -Okay to DC today after surgery -Anticipate renal function returned to baseline once the stones are removed -We will need an outpatient BMP from her PCP 2. History of DVT -She has an IVC filter in place can continue with Eliquis if okay with urology -I discussed with her that because she has had 2 provoked blood clots that she may not necessarily need to be on lifelong Eliquis and to follow-up with a bucket operator on discharge 3. HTN -Stable, there is a slight increase likely secondary to pain -Continue with her lisinopril and hydrochlorothiazide 4. Iron deficiency anemia -Hemoglobin is stable at 13.7 -Continue with home iron 5. GERD -Stable -Continue with home PPI 6. Depression/anxiety -Stable -Continue with Effexor and trazodone 7. Diarrhea -C. difficile and lactoferrin were negative -She took significant amount of milk of mag prior to coming in -Stool occult blood was positive, she needs to follow-up with her primary care physician as an outpatient for further evaluation and characterization DVT: Eliquis Code Visit Inpatient E&M: 64388 Subs Hosp L2
--- NOTE | 2018-12-15 13:01 | PN_ITS ---
Patient Problems: Active and Suspected Problems Renal calculus, bilateral (Acute) bilateral stones h/o DVT has IVC filter Subjective: Doing well feels much better after her procedure. She states her diarrhea was secondary to the fact that she took a lot of milk of mag when she did not know why she was having abdominal pain Vitals/I&O's: Vital Signs Temp Pulse Resp BP Pulse Ox 97.8 F 59 L 18 121/52 H 94 12/15/18 10:15 12/15/18 10:15 12/15/18 10:15 12/15/18 10:15 12/15/18 10:15 Oxygen Flow Rate (L/min) 2 Oxygen Delivery Method Nasal Cannula Weight: 224 lb 3.362 oz Body Mass Index (BMI) 37.3 Finger Stick Blood Glucose 141 Intake and Output for Last 24 Hours 12/13/18 12/14/18 12/15/18 23:59 23:59 23:59 Intake Total 945 / 945 3182 / 3182 Output Total 1000 / 1000 1075 / 1075 Balance -55 / -55 2106 / 2106 General: Alert, Oriented x3, Cooperative, No apparent distress HEENT: Atraumatic, PERRLA, EOMI, Normocephalic Oral: Moist Mucosa Neck: Supple, No JVD Lungs: Clear to auscultation, Normal air movement, No rhonchi, No wheeze, No rales Cardiovascular: Regular rate, Regular Rhythm, Normal S1, Normal S2, No murmurs Abdomen: Soft, Non Tender, Non-Distended, No Hepato-splenomegaly Extremities: No edema, Capillary Refill Less than 3 Seconds Skin: No rashes, No breakdown Neurological: Neuro grossly intact, Sensory exam intact to light touch and pain Psych/Mental Status: Normal Affect, Appropriate Microbiology Past 72 Hours 12/15/18 04:36 Stool Stool Occult Blood (RIN) - Final Occult Blood Positive 12/15/18 04:36 Stool Stool Lactoferrin - Final 12/15/18 04:36 Stool C. difficile DNA Amplification - Final Laboratory Results 12/14/18 14:20: Sodium 140, Potassium 3.9, Chloride 105, Carbon Dioxide 31.0, Anion Gap 4 L, BUN 20 H, Creatinine 1.15 H, Estim Creat Clear Calc 45.64, Est GFR (MDRD) Af Amer 62, Est GFR (MDRD) Non-Af 51 L, BUN/Creatinine Ratio 17.4, Glucose 106, Calcium 8.6 12/14/18 16:55: Sodium 141, Potassium 4.3, Chloride 106, Carbon Dioxide 33.0 H, Anion Gap 2 L, BUN 22 H, Creatinine 1.27 H, Estim Creat Clear Calc 41.33, Est GFR (MDRD) Af Amer 55 L, Est GFR (MDRD) Non-Af 45 L, BUN/Creatinine Ratio 17.3, Glucose 101, Calcium 8.9 12/14/18 18:35: Sodium 139, Potassium 4.0, Chloride 104, Carbon Dioxide 31.0, Anion Gap 4 L, BUN 22 H, Creatinine 1.38 H, Estim Creat Clear Calc 38.03, Est GFR (MDRD) Af Amer 50 L, Est GFR (MDRD) Non-Af 41 L, BUN/Creatinine Ratio 15.9, Glucose 125 H, Calcium 8.7 12/14/18 20:55: Sodium 138, Potassium 3.8, Chloride 105, Carbon Dioxide 30.0, Anion Gap 3 L, BUN 23 H, Creatinine 1.48 H, Estim Creat Clear Calc 35.46, Est GFR (MDRD) Af Amer 46 L, Est GFR (MDRD) Non-Af 38 L, BUN/Creatinine Ratio 15.5, Glucose 123 H, Calcium 8.4 L 12/14/18 22:35: Sodium 138, Potassium 3.8, Chloride 104, Carbon Dioxide 30.0, Anion Gap 4 L, BUN 23 H, Creatinine 1.52 H, Estim Creat Clear Calc 34.53, Est GFR (MDRD) Af Amer 45 L, Est GFR (MDRD) Non-Af 37 L, BUN/Creatinine Ratio 15.1, Glucose 129 H, Calcium 8.3 L 12/15/18 05:35: WBC 7.2, RBC 3.78 L, Hgb 11.4 L, Hct 35.0 L, MCV 92.6, MCH 30.2, MCHC 32.6, RDW 13.6, RDW Differential 45.0 H, Plt Count 222, MPV 10.0 12/15/18 06:41: POC Glucose 115 H 12/15/18 09:26: POC Glucose 141 H Current Medications Acetaminophen (Tylenol) 500 mg PO Q4H PRN PRN PRN Reason: Pain/Headache Docusate Sodium (Colace) 100 mg PO BID [facility] Last Admin: 12/15/18 12:28 Dose: Not Given Sodium Chloride () 1,000 mls @ 100 mls/hr IV .Q10H [facility] Last Admin: 12/15/18 12:25 Dose: 100 mls/hr Sodium Chloride () 1,000 mls @ 75 mls/hr IV .[id number] [facility] Last Admin: 12/15/18 00:11 Dose: Not Given Ciprofloxacin (Cipro) 400 mg in 200 mls @ 200 mls/hr IV Q12 [facility] Last Admin: 12/15/18 12:28 Dose: 200 mls/hr Ketorolac Tromethamine (Toradol) 15 mg IV Q6H PRN PRN PRN Reason: PAIN Stop: 12/19/18 10:14 Last Admin: 12/15/18 06:27 Dose: 15 mg Magnesium Hydroxide (Milk Of Magnesia) 15 ml PO DAILY [facility] Last Admin: 12/15/18 12:31 Dose: Not Given Morphine Sulfate () 2 - 4 mg IV Q3H PRN PRN PRN Reason: SEVERE PAIN (6-10/10) Last Admin: 12/15/18 05:34 Dose: 2 mg Ondansetron HCl (Zofran) 4 mg IV Q6H PRN PRN PRN Reason: NAUSEA Sodium Chloride () 5 - 15 ml IV UD PRN PRN Reason: SALINE FLUSH Last Admin: 12/14/18 18:11 Dose: 10 ml Medical Necessity - Tobacco Use Smoking Status: Former smoker Tobacco Use: Non-smoker Assessment/Plan All Active Problems Renal calculus, bilateral (Acute) 1. Right UPJ stone and left ureteral stone/worsening renal function -Pain meds per primary, proceed with stent placement low risk for surgery -Okay to DC today after surgery -Anticipate renal function returned to baseline once the stones are removed -We will need an outpatient BMP from her PCP 2. History of DVT -She has an IVC filter in place can continue with Eliquis if okay with urology -I discussed with her that because she has had 2 provoked blood clots that she may not necessarily need to be on lifelong Eliquis and to follow-up with a line construction engineer on discharge 3. HTN -Stable, there is a slight increase likely secondary to pain -Continue with her lisinopril and hydrochlorothiazide 4. Iron deficiency anemia -Hemoglobin is stable at 13.7 -Continue with home iron 5. GERD -Stable -Continue with home PPI 6. Depression/anxiety -Stable -Continue with Effexor and trazodone 7. Diarrhea -C. difficile and lactoferrin were negative -She took significant amount of milk of mag prior to coming in -Stool occult blood was positive, she needs to follow-up with her primary care physician as an outpatient for further evaluation and characterization DVT: Eliquis Code Visit Inpatient E&M: 49945 Subs Hosp L2
--- NOTE | 2018-12-15 14:23 | NURSING ---
pt is getting dressed to go home. Pt ate Lunch, tolerated it and has had no pain. Has voided 3 times since coming up to the floor. This nurse saw Dr. Vizcarra progress note and it stated that she can go from a medical stand point.
--- NOTE | 2018-12-17 14:09 | CASEMGMT ---
GURVINDER BOYER DC PHONE CALL DC DATE: 12/15/18 DC Disposition: Home LACE/STRATA: 03/25 Intro role of CM to patient. Pt states she is doing well, has urgency still, and does not feel like she is emptying her bladder. Continues to have pain, but has not taken pain medication. Denies bloody urine and states she does have urine flow. GURVINDER BOYER recommended if symptoms continue of feeling like she is not emptying her bladder or pain increases to notify Dr. Allen's nurse and may need to be seen sooner in office. Lillie MCDANIELN RN ACM
== END 2018-12-15 14:28 | disposition home or self-care (01) | DRG 661 ==
LOC: ED 08:58 → MS3 10:57
PROVIDERS: Anesthesiology; Admitting Provider Urology; Emergency Provider Emergency Medicine; Family Provider Family Medicine; PCP Family Medicine; Visit Provider Urology
DX: N13.2 Hydronephrosis with renal and ureteral calculous obstruction (principal); R31.9 Hematuria, unspecified; E11.9 Type 2 diabetes mellitus without complications; I10 Essential (primary) hypertension; D50.9 Iron deficiency anemia, unspecified; R19.7 Diarrhea, unspecified; G47.30 Sleep apnea, unspecified; K21.9 Gastro-esophageal reflux disease without esophagitis; F32.9 Major depressive disorder, single episode, unspecified; F41.9 Anxiety disorder, unspecified; Z78.0 Asymptomatic menopausal state; Z79.01 Long term (current) use of anticoagulants; Z79.899 Other long term (current) drug therapy; Z87.442 Personal history of urinary calculi; Z87.440 Personal history of urinary (tract) infections; Z86.711 Personal history of pulmonary embolism; Z86.718 Personal history of other venous thrombosis and embolism; Z87.11 Personal history of peptic ulcer disease; Z87.891 Personal history of nicotine dependence
CPT/HCPCS: 36415; 74176; 76000; 80048; 81001; 82274; 82962; 83036; 83630; 85025; 85027; 87493; 87506; 88300; 93005; 94640; 99284; J7030; A4216; C1726; C1769; C2617; J0744; J2405

== ENCOUNTER → 2018-12-23 14:17 | Outpatient (CLI) | payer OTHER, SELFPAY ==
[2018-12-15 06:28] VITALS: BMI 37.3
--- NOTE | 2018-12-23 14:21 | RAD_ITS ---
HISTORY: Bilateral kidney stones. 2 views of the abdomen. Most recent comparison is made 2018 CT scan. Findings: The IVC filter is unchanged. Bilateral ureteric stents are new. The right UPJ stone seen on the CT scan is not identified. Left upper quadrant and surgical clips related to gastric bypass persists. The left UPJ stone is not identified within the region of the left renal hilum. Multilevel degenerative disc disease. Levoscoliosis. Hip arthritis. Within the left hemipelvis, lateral to the left ureteric stent, there is a 4 mm calcification. This could represent the left UPJ stone from the CT scan. RAD/Abdomen Single View IMPRESSION: Apparent adequate position of bilateral ureteric stents. Large right UPJ stone not perceived. Left lateral to the left ureteric stent is a 4 mm calcification. It is feasible this is the left UPJ stone on CT scan of December 14, 2018. It is less likely that this is a left hemipelvic phlebolith. Many phleboliths were present on the previous CT. at 0150 Reported and signed by: Trell Connolly MD Electronically Signed: Trell Connolly MD at 1:49 EDT Tel , Service support ,
== END ==
PROVIDERS: Family Provider Family Medicine; PCP Family Medicine; Referring Provider Urology; Visit Provider Urology
DX: N20.0 Calculus of kidney (principal)
CPT/HCPCS: 74018

== ENCOUNTER → 2019-05-28 16:44 | Outpatient (CLI) | payer OTHER, SELFPAY ==
[2018-12-15 06:28] VITALS: BMI 37.3
[2019-05-28 19:15] LABS: M R Staph aureus DNA By PCR Negative (Negative); Probe Check PASS; Specimen Processing Control PASS; Staph aureus DNA By PCR NEGATIVE (Negative)
== END ==
PROVIDERS: Family Provider Family Medicine; PCP Family Medicine; Referring Provider Podiatrist; Visit Provider Podiatrist
DX: L60.0 Ingrowing nail (principal)
CPT/HCPCS: 87070; 87075; 87205; 87640

== ENCOUNTER → 2019-07-01 14:53 | Outpatient (CLI) | payer OTHER, SELFPAY ==
[2018-12-15 06:28] VITALS: BMI 37.3
--- NOTE | 2019-07-01 14:55 | RAD_ITS ---
STUDY: X-RAY - ABDOMEN/PELVIS REASON FOR EXAM: Female, 63 years old. Kidney stone follow-up TECHNIQUE: 3 AP supine views of the abdomen and pelvis. COMPARISON: December 23, 2018 FINDINGS: Normal visualized lung bases. There is moderate stool in the colon. There are persistent gaseous appearing loops of bowel in the left upper quadrant. This postoperative change in the pelvis. There is an IVC filter at the level of L1-L2. There is no demonstrated free abdominal air. The kidneys are obscured by bowel gas. The liver appears within normal limits of size. There are diffuse degenerative changes of the visualized lumbar spine. RAD/Abdomen Single View IMPRESSION: Kidneys are obscured by bowel gas. There is constipation possible mild ileus. Postoperative change. IVC filter. Electronically Signed: Malinda Randle MD at 18:04 EST Tel , Service support ,
== END ==
PROVIDERS: Family Provider Family Medicine; PCP Family Medicine; Referring Provider Urology; Visit Provider Urology
DX: N20.0 Calculus of kidney (principal)
CPT/HCPCS: 74018

== ENCOUNTER → 2019-08-12 08:48 | Outpatient (CLI) | payer OTHER, SELFPAY ==
[2018-12-15 06:28] VITALS: BMI 37.3
== END ==
PROVIDERS: PCP Family Medicine; Referring Provider Family Medicine; Visit Provider Family Medicine
DX: E11.9 Type 2 diabetes mellitus without complications (principal); E04.1 Nontoxic single thyroid nodule; I10 Essential (primary) hypertension; Z98.84 Bariatric surgery status
CPT/HCPCS: 36415

== ENCOUNTER → 2019-08-25 12:21 | Outpatient (CLI) | payer OTHER, SELFPAY ==
[2018-12-15 06:28] VITALS: BMI 37.3
--- NOTE | 2019-08-25 12:25 | US_ITS ---
STUDY: THYROID ULTRASOUND REASON FOR EXAM: Female, 63 years old. NODULES TECHNIQUE: Ultrasound evaluation of the thyroid was performed with real-time and static barrera-scale imaging. COMPARISON: CTA chest May 06, 2013 FINDINGS: RIGHT LOBE: The right lobe of the thyroid gland measures 5.6 x 2.4 x 2.3 cm. There is a homogeneous echotexture. There are number of nonspecific subcentimeter hypoechoic nodules or complicated cysts. Also seen is a complex, heterogeneous 2.6 x 1.6 x 2.0 cm nodule in the posterior midpole. LEFT LOBE: The left lobe of the thyroid gland measures 4.6 x 1.9 x 1.5 cm. There is a homogeneous echotexture. There is a well-defined 7 x 6 x 4 mm solid nodule with a hypoechoic rim in the lower pole. ISTHMUS: The isthmus measures 3 mm. The regional lymph nodes are normal. US/Thyroid IMPRESSION: Bilateral thyroid nodules, as described, more numerous on the right. Dominant 2.6 cm heterogeneous nodule also seen in the posterior right mid pole. This correlates to a TI-RADS score of 4, and due to its size, ultrasound-guided biopsy is advised. If additional imaging is clinically indicated, one could also consider nuclear medicine thyroid uptake and scan. Electronically Signed: Waldemar Zurita MD at 18:51 EST , Service support ,
== END ==
PROVIDERS: PCP Family Medicine; Referring Provider Family Medicine; Visit Provider Family Medicine
DX: E04.1 Nontoxic single thyroid nodule (principal)
CPT/HCPCS: 76536

== ENCOUNTER → 2019-09-18 | Outpatient (CLI) | payer OTHER, SELFPAY ==
--- NOTE | 2019-09-18 13:40 | ASPS_PTH ---
PATIENT: ART BLUE [facility] U#:[id number] AGE/SX: 63/F ROOM: RE09/18/[address]: Dr. Asad Guerin MD : [id number] BED: DIS: 09/18/2019 SPEC #: [id number] RECD: 09/18/19 15:47 STATUS: WINTER REHi #: [id number] CLAUDIO: 09/18/19 13:[address]: Asad Guerin DEPT: CYTOLOGY RECD BY: Jarad Gonzalez ENTERED: 09/19/19 08:51 SP TYPE: ASPIRATION OTHR DR: Dr. Milton Almanzar MD Tissues: Thyroid gland, NOS Procedures: Special Stain Group II Cytology Other HEADER OPERATION: Ultrasound-guided fine needle aspiration right thyroid PRE-OP DIAGNOSIS: Nontoxic multinodular goiter E04.2 TISSUE SUBMITTED: Fine needle aspiration right thyroid slides x12 DIAGNOSIS CYTOLOGY Right thyroid nodule, ultrasound-guided FNA (smears): Consistent with benign colloid nodule. Adequate for evaluation. See comment. KOSTA:farzaneh 09/22/19 COMMENT Correlation with clinical, radiologic findings and appropriate follow up are necessary. CYTOLOGY STUDY Slides are reviewed. CYTOLOGY GROSS Received are 12 smears labeled with the patient's name and designated per the requisition as right thyroid. Submitted for staining. / farzaneh 09/19/19 TC:5 CPT: 49399
[2019-09-18 13:43] VITALS: BMI 37.3
== END | disposition home or self-care (01) ==
LOC: LABSPEC 16:02
PROVIDERS: PCP Family Medicine; Referring Provider Surgery; Visit Provider Surgery
DX: E04.2 Nontoxic multinodular goiter (principal)
CPT/HCPCS: 88161; 88313

== ENCOUNTER → 2020-03-03 08:24 | Outpatient (CLI) | payer OTHER, SELFPAY ==
[2019-09-18 13:43] VITALS: BMI 37.3
[2020-03-03 10:04] LABS: Absolute Lymphocyte Count 2.39 X10^3/uL (0.83-4.51); Basophil# 0.04 X10^3/uL; Basophil% 0.6 % (0-1); Eosinophils% 1.4 % (0-5); Hematocrit 43.4 % (37-47); Lymphocyte # 2.39 X10^3/ul (4.0); Lymphocyte % 34.1 % (19-41); Mean Corp Hgb Conc 32.3 g/dL (32-36); Mean Corpuscular Hgb 30.8 pg (27.0-32.0); Mean Corpuscular Volume 95.4 fL (81-99); Mean Platelet Vol. 9.7 fl (6.2-12.0); Monocyte# 0.46 X10^3/uL; Monocyte% 6.6 % (0-10); NRBC Flagged by Analyzer 0 % (0-5); Neutrophil # 3.97 X10^3/uL (2.7-7.7); Neutrophil % 56.6 % (47-70); Platelet Count 279 K/mm3 (150-450); RBC Distribution Width CV 13.8 % (11.6-14.6); RBC Distribution Width SD 48.7 fl (35.1-43.9); Red Blood Count 4.55 M/mm3 (4.2-5.4)
[2020-03-03 10:45] LABS: Anion Gap 8 (5-15); BUN 20 mg/dL (7-18); BUN/Creat Ratio 26.6 RATIO (10-20); Calcium,Total 8.7 mg/dL (8.5-10.1); Chloride 102 mmol/L (98-107); Creatinine, Serum 0.75 mg/dL (0.55-1.02); EST Glomerular Filtration Rate 83 mL/min (>60); Est Glom Filt Rate - Afr Amer 100 mL/min (>60); Glucose 106 mg/dL (74-106); Potassium 4.1 mmol/L (3.5-5.1); Sodium Level 139 mmol/L (136-145)
== END ==
PROVIDERS: PCP Family Medicine; Referring Provider Family Medicine; Visit Provider Family Medicine
DX: I10 Essential (primary) hypertension (principal)
CPT/HCPCS: 36415; 80048; 85025

== ENCOUNTER → 2020-03-22 09:02 | Outpatient (CLI) | payer OTHER, SELFPAY ==
[2019-09-18 13:43] VITALS: BMI 37.3
== END ==
PROVIDERS: PCP Family Medicine; Referring Provider Family Medicine; Visit Provider Nurse Practitioner Family
DX: R53.83 Other fatigue (principal); R06.00 Dyspnea, unspecified
CPT/HCPCS: 36415

== ENCOUNTER → 2020-03-24 14:26 | Outpatient (CLI) | payer OTHER, SELFPAY ==
[2019-09-18 13:43] VITALS: BMI 37.3
== END ==
PROVIDERS: PCP Family Medicine; Referring Provider Family Medicine; Visit Provider Family Medicine
DX: R06.00 Dyspnea, unspecified (principal); R53.83 Other fatigue

== ENCOUNTER → 2020-04-06 06:10 | Outpatient (CLI) | payer OTHER, SELFPAY ==
[2019-09-18 13:43] VITALS: BMI 37.3
--- NOTE | 2020-04-06 08:38 | STRESSREP_ITS ---
Stress Test Report Date: 04-06-2020 Procedure: Pharmacologic stress nuclear imaging study Indications: Chest pain; this of breath/dyspnea; history of DVT/PE Consent: Per the patient Procedure: The patient underwent pharmacologic (Regadenoson) evaluation with a peak heart rate of 88 beats per minute (56 %predicted maximal heart rate) and a peak blood pressure of 122/70 mmHg. The baseline ECG demonstrated sinus bradycardia. The peak pharmacologic ECG demonstrated no obvious ECG changes. There were no cardiac dysrhythmias pretest, during pharmacologic infusion, or recovery. There was no complaint of chest discomfort during pharmacologic infusion or recovery. The examination was discontinued secondary to completion of protocol. Impression: 1. Pharmacologic (Regadenoson) evaluation 2. Peak pharmacologic ECG with no obvious ECG changes. 3. There were no cardiac dysrhythmias pretest, during pharmacologic infusion, or recovery. 4. Nuclear images pending Myocardial perfusion imaging study: Technique: The patient was injected with 14.5 millicuries of technetium 99m Cardiolite and subsequently rest SPECT Cardiolite nuclear imaging was obtained in the horizontal long, vertical long, and short axis views. The patient underwent pharmacologic (Regadenoson) evaluation with a peak heart rate of 88 beats per minute (56 % percent predicted maximal heart rate) and a peak blood pressure of 122/70 mmHg. The patient was injected with 44.6 millicuries of technetium 99m Cardiolite and subsequently stress SPECT Cardiolite nuclear imaging was obtained in the horizontal long, vertical long, and short axis views. A gated Cardiolite study at peak stress was obtained. Interpretation: Rest and stress SPECT Cardiolite nuclear imaging status post realignment, normalization, and attenuation correction demonstrate relative uniform tracer uptake and myocardial perfusion appearing within normal limits. There is end systolic thickening and brightening. The gated Cardiolite study demonstrates myocardial thickening and inward wall motion. The reported LVEF is 78 %. Impression: 1. Rest and stress SPECT Cardiolite nuclear imaging demonstrate relative uniform tracer uptake and myocardial perfusion appearing within normal limits. 2. The gated Cardiolite study reports an LVEF of 78 %. This note was generated with [employer] software. It may contain incorrect words, spelling, and punctuation that were not noted in checking the note before signing.
== END ==
PROVIDERS: PCP Family Medicine; Referring Provider Nurse Practitioner Family; Visit Provider Nurse Practitioner Family
DX: R07.89 Other chest pain (principal)
CPT/HCPCS: 78452; 93017; A9500; A4216; J2785

== ENCOUNTER → 2020-05-07 10:11 | Outpatient (CLI) | payer OTHER, SELFPAY ==
[2019-09-18 13:43] VITALS: BMI 37.3
== END ==
PROVIDERS: PCP Family Medicine; Referring Provider Family Medicine; Visit Provider Family Medicine
DX: E11.9 Type 2 diabetes mellitus without complications (principal); Z98.84 Bariatric surgery status
CPT/HCPCS: 36415

== ENCOUNTER → 2020-08-12 12:21 | Outpatient (CLI) | payer OTHER, SELFPAY ==
[2019-09-18 13:43] VITALS: BMI 37.3
--- NOTE | 2020-08-12 12:24 | RAD_ITS ---
HISTORY: NECK AND BILATERAL SHOULDER PAIN (MOSTLY LEFT) FOR 14 DAYS. NO INJURY. COMPARISON: None FINDINGS: # of images incl. paperwork: 6 XR Spine Cervical 4 or 5 Views: Calcific plaque within both carotid bulbs. Uncovertebral hypertrophy and mild facet arthropathy contribute to mild neural foraminal stenosis, on the left at the C4-C5, and C5-C6 levels, All 7 cervical vertebral bodies are identified. No acute cervical spine fracture or subluxation. Normal cervical spine alignment. Odontoid is intact. Klein some uncovertebral hypertrophy is present. This is mild RAD/Cerv Spine 4 or 5 Views IMPRESSION: No acute cervical spine fracture or subluxation. Some uncovertebral hypertrophy. Mild facet arthropathy. These contribute to Cause some neural foraminal stenosis, greatest on the left at the C4-C5 and C5-C6 levels at 0448 Reported and signed by: Trell Connolly MD Electronically Signed: Trell Connolly MD at 4:47 EST Tel , Service support ,
--- NOTE | 2020-08-12 12:24 | RAD_ITS ---
HISTORY: NECK AND SOME RIGHT SHOULDER PAIN FOR 14 DAYS. NO INJURY. Exam: Right Shoulder 4 views of the right shoulder. COMPARISON: None FINDINGS: # of images incl. paperwork: 4 XR Shoulder Min 2 Views: Calcific tendinosis at the insertion of the supraspinatus is mild The humeral head is well-positioned within the glenoid fossa. No fracture or subluxation. The acromioclavicular joint is mildly arthritic. The adjacent chest is unremarkable. RAD/Shoulder min 2 Views IMPRESSION: Minimal degenerative changes to the right shoulder without acute fracture or dislocation. at 0449 Reported and signed by: Trell Connolly MD Electronically Signed: Trell Connolly MD at 4:48 EST Tel , Service support ,
--- NOTE | 2020-08-12 12:30 | RAD_ITS ---
NECK AND LEFT SHOULDER PAIN FOR 14 DAYS. NO INJURY. COMPARISON: None FINDINGS: # of images incl. paperwork: 4 XR Shoulder Min 2 Views: Left BONE AND JOINTS: No acute fracture or subluxation. Mild acromioclavicular arthropathy. SOFT TISSUES: Unremarkable. No radiopaque foreign body. Visualized left upper lobe was unremarkable RAD/Shoulder min 2 Views IMPRESSION: No acute pathology Mild acromioclavicular arthropathy at 0459 Reported and signed by: Malinda Ulloa DO Electronically Signed: Malinda Ulloa DO at 4:58 EST Tel , Service support ,
== END ==
PROVIDERS: PCP Family Medicine; Visit Provider Family Medicine
DX: M54.12 Radiculopathy, cervical region (principal); M25.519 Pain in unspecified shoulder
CPT/HCPCS: 72050; 73030

== ENCOUNTER → 2020-10-27 10:14 | Outpatient (CLI) | payer OTHER, SELFPAY ==
[2020-09-15 08:55] VITALS: BMI 42.2
== END ==
PROVIDERS: PCP Family Medicine; Referring Provider Family Medicine; Visit Provider Family Medicine
DX: E11.9 Type 2 diabetes mellitus without complications (principal); I10 Essential (primary) hypertension; Z98.84 Bariatric surgery status
CPT/HCPCS: 36415

== ENCOUNTER → 2020-11-03 12:48 | Outpatient (CLI) | payer OTHER, SELFPAY ==
[2020-09-15 08:55] VITALS: BMI 42.2
--- NOTE | 2020-11-03 12:51 | US_ITS ---
STUDY: THYROID ULTRASOUND REASON FOR EXAM: Female, 64 years old. NODULES TECHNIQUE: Ultrasound evaluation of the thyroid was performed with real-time and static barrera-scale imaging. COMPARISON: 08/25/2019 FINDINGS: RIGHT LOBE: The right lobe of the thyroid gland measures 5.0 x 2.3 x 2.5 cm. There is a homogeneous echotexture. Nodule 1: No change in the 24 x 20 x 16 mm solid hypoechoic wider than tall smoothly marginated nodule with punctate echogenic foci (TR 5) for which ultrasound-guided biopsy is recommended if never performed. LEFT LOBE: The left lobe of the thyroid gland measures 4.8 x 1.5 x 1.2 cm. There is a homogeneous echotexture. Nodule 2: No change in the 7 x 4 x 6 mm solid hypoechoic wider than tall smoothly marginated nodule with no echogenic foci (TR 4) in the anterior left lobe consistent with an adenoma. ISTHMUS: The isthmus measures 3 mm thick. . The regional lymph nodes are normal. US/Thyroid IMPRESSION: No change in multinodular thyroid gland with a dominant 24 mm solid nodule right lobe for which ultrasound-guided biopsy is recommended if never performed. Electronically Signed: Clemente Young MD at 9:07 EDT Tel , Service support ,
== END ==
PROVIDERS: PCP Family Medicine; Referring Provider Family Medicine; Visit Provider Family Medicine
DX: E04.2 Nontoxic multinodular goiter (principal)
CPT/HCPCS: 76536

== ENCOUNTER → 2020-12-27 07:20 | Outpatient (CLI) | payer OTHER, SELFPAY ==
[2020-09-15 08:55] VITALS: BMI 42.2
--- NOTE | 2020-12-27 08:40 | NEURO ---
NCS and/or EMG Patient Report Ordering Doctor: Sean Vasquez DATE OF SERVICE: 12/27/20 Indication: Remote history of bilateral carpal tunnel syndrome status post decompression and resolution of symptoms. Recently, several months of left-sided neck and shoulder pain which has gradually subsided. Now with intermittent aching of the posterior are as well as tinging of the first three digits. Evaluate for cervical radiculopathy. Findings: Nerve conduction studies were performed in the left upper extremity. The left median motor study recording the abductor pollicis brevis showed a borderline amplitude, prolonged distal latency and borderline conduction velocity. The left ulnar motor study recording the abductor digiti minimi showed a normal amplitude, normal distal latency and normal conduction velocity. No conduction block or focal slowing was present across the elbow. The left median sensory response recording digit two showed a reduced amplitude, prolonged latency and markedly slowed conduction velocity. The left ulnar sensory response recording digit five showed a normal amplitude, latency and conduction velocity. The left radial sensory response recording over the extensor snuff box showed a normal amplitude, latency and conduction velocity. Left median ulnar lumbrical / interosseous motor latencies showed a prolongation compared to the ulnar response. Needle EMG of the left upper extremity muscles was performed. The cervical paraspinal muscles were not examined as the patient is on anticoagulation. No denervation was seen in any muscle. In the left abductor pollicis brevis, motor units were slightly large amplitude, long duration with slightly reduced recruitment. All other examined muscles revealed normal motor unit morphology, activation and recruitment patterns. Impression: This is an abnormal study. 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 The pathophysiology is predominantly demyelinating with some evidence of secondary sensory axonal loss. These findings are compatible with the clinical diagnosis of carpal tunnel syndrome. It is important to note that nerve conduction studies may never entirely normalize even following successful carpal tunnel release surgery. Neuromuscular ultrasound has been proven to be a reliable test to determine if impingement has recurred and could be considered in this case. There is no evidence of a superimposed left cervical radiculopathy. Please note: the electrodiagnosis of radiculopathy is made on the basis of excluding peripheral nerve lesions on nerve conduction studies and the needle EMG demonstrating denervation and/or reinnervation in the distribution of one or more nerve roots (i.e., acute and/or chronic axonal loss). Thus, electrodiagnostic studies are insensitive in detecting radiculopathy in the absence of axonal loss (e.g., in the setting of compression resulting in intermittent ischemia or mechanical deformation; or demyelination without axonal loss). Thus, clinical correlation is required in the interpretation of this negative electrodiagnostic study for radiculopathy. Jesse Puentes D.O.
== END ==
PROVIDERS: PCP Family Medicine; Referring Provider Orthopaedic Surgery; Visit Provider Orthopaedic Surgery
DX: M48.02 Spinal stenosis, cervical region (principal)
CPT/HCPCS: 95886; 95910

== ENCOUNTER → 2021-03-18 08:38 | Outpatient (CLI) | payer OTHER, SELFPAY | PROVIDERS: Visit Provider Family Medicine | DX: E11.9 Type 2 diabetes mellitus without complications (principal) ==

== ENCOUNTER → 2021-03-30 17:27 | Outpatient (CLI) | payer OTHER, SELFPAY ==
--- NOTE | 2021-03-30 18:01 | MRI_ITS ---
STUDY: MRI BRAIN WITH AND WITHOUT CONTRAST REASON FOR EXAM: Female, 65 years old. MENINGIOMA TECHNIQUE: Standardized multiplanar fat and water weighted pulse sequences were obtained. IV DOTAREM 22ML was administered for the contrast portion of the examination. COMPARISON: None. FINDINGS: Normal size of the ventricles and extra-axial spaces for the patient''s age. Normal white matter tracts of the supratentorial brain. Multiple T2/FLAIR hyperintensities throughout the subcortical and periventricular white matter. Mildly irregular appearance of the corpus callosum. There is no evidence for recent intracranial ischemia or other cause of cytotoxic edema on diffusion weighted imaging (DWI). Normal bilateral basal ganglia. Normal thalami. There is no extra-axial fluid accumulation. Normal flow voids within the major intracranial circulation suggesting patency by spin echo criteria. Normal venous enhancement. 6 x 5 x 4 mm enhancing dural based nodule over the high right frontal convexity. Normal sella turcica, pituitary gland, infundibular stalk, optic chiasm and hypothalamus. Normal tectal plate and pineal gland. Normal midbrain, floresita and medulla. Normal cerebellum. Normal basal cisterns. Normal bilateral temporal bones. Normal bilateral internal auditory canals. No demonstrated orbital abnormality, within the constraints of a routine brain study. Normal visualized paranasal sinuses. Normal calvarium and skull base. Normal visualized soft tissue structures. Normal visualized upper cervical spine. MRI/Brain W/WO Contrast IMPRESSION: Multiple T2/FLAIR hyperintensities throughout the subcortical and periventricular white matter and mild irregularity of the corpus callosum is concerning for demyelinating disease, though FLAIR hyperintensities can also be seen in migraines and chronic microvascular ischemic disease. 6 mm high right frontal convexity meningioma. Electronically Signed: Daren Sarmiento MD at 5:02 EDT Tel , Service support ,
== END ==
PROVIDERS: PCP Family Medicine; Visit Provider Family Medicine
DX: D32.9 Benign neoplasm of meninges, unspecified (principal)
CPT/HCPCS: 70553; A9575

== ENCOUNTER 2021-11-03 09:27 | Outpatient (CLI) | payer MEDICARE, OTHER, SELFPAY ==
--- NOTE | 2021-11-03 09:34 | RAD_ITS ---
STUDY: X-RAY CHEST REASON FOR EXAM: Female, 65 years old. ACUTE BRONCHITIS TECHNIQUE: PA and lateral views of the chest. COMPARISON: None. FINDINGS: The lungs are clear and expanded. There is no demonstrated pleural abnormality. Normal size heart. Normal mediastinum and luda. Normal visualized pulmonary arteries. There is atherosclerotic calcification of the aortic arch with tortuosity. There are degenerative changes of the visualized thoracic spine. Normal visualized ribs, clavicles, and shoulders. There is no demonstrated abnormality of the visualized soft tissue structures of the upper abdomen. RAD/Chest PA and Lateral IMPRESSION: No acute abnormality is seen. Electronically Signed: Karlo Portillo MD at 12:43 EDT ,
== END 2021-11-03 23:59 | disposition home or self-care (01) ==
LOC: MTRAD 09:30
PROVIDERS: PCP Family Medicine; Referring Provider Family Medicine; Visit Provider Family Medicine
DX: J20.9 Acute bronchitis, unspecified (principal)
CPT/HCPCS: 71046

== ENCOUNTER → 2021-11-23 | Outpatient (CLI) | payer MEDICARE, OTHER, SELFPAY ==
[2021-11-23 08:34] LABS: Mucous, Urine 0 SEEN /hpf (<or=2+); Red Blood Cells-Urine 0 SEEN /hpf (0-5)
[2021-11-23 10:00] LABS: Absolute Lymphocyte Count 2.07 X10^3/uL (0.83-4.51); Absolute Neutrophil Count 4.2 X10^3/uL (2.0-7.7); Basophil# 0.04 X10^3/uL; Basophil% 0.6 % (0-1); Eosinophil# 0.13 X10^3/uL; Eosinophils% 1.9 % (0-5); Hematocrit 39.1 % (37-47); Hemoglobin 12.5 g/dL (12.0-15.0); Lymphocyte # 2.07 X10^3/ul (0.83-4.51); Lymphocyte % 29.9 % (19-41); Mean Corpuscular Hgb 30.1 pg (27.0-32.0); Mean Corpuscular Volume 94.2 fL (81-99); Mean Platelet Vol. 10.6 fl (6.2-12.0); Monocyte# 0.46 X10^3/uL; Monocyte% 6.6 % (0-10); NRBC Flagged by Analyzer 0 % (0-5); Neutrophil % 60.6 % (47-70); Platelet Count 299 K/mm3 (150-450); RBC Distribution Width CV 13.7 % (11.6-14.6); RBC Distribution Width SD 47.2 fl (35.1-43.9); Red Blood Count 4.15 M/mm3 (4.2-5.4); White Blood Count 6.9 K/mm3 (4.4-11.0)
[2021-11-23 10:02] LABS: Color, Urine Yellow (Yellow); Glucose, Dipstick Normal (Normal); Ketone-Dipstick Negative (Negative); Leukocyte Esterase-Dipstick 500 /ul (Negative); Nitrite-Dipstick Negative (Negative); Occult Blood-Urine 10 /ul (Negative); Protein-Dipstick Negative (Negative); Urine Bilirubin Dipstick Negative (Negative); Urine Clarity Clear (Clear); Urine Urobilinogen Normal (Normal)
[2021-11-23 10:17] LABS: Vitamin B12 1434 pg/mL (211-911)
[2021-11-23 10:18] LABS: Microalbumin,Random Urine 15.1 mg/L (NO RANGE EST.)
[2021-11-23 10:19] LABS: Bacteria RARE /hpf (None Seen); Squamous Epithelial Cells - UA 5-10 SEEN /hpf (5-10); White Blood Cells 5-10 SEEN /hpf (0-5)
[2021-11-23 10:31] LABS: ALB/GLOB Ratio 0.8 RATIO (0.9-2.4); AST(SGOT) 23 U/L (15-37); Alanine Aminotransfer ALT/SGPT 38 U/L (13-56); Albumin, Serum 3.5 g/dL (3.2-5.0); Alkaline Phosphatase 64 U/L (45-117); Anion Gap 8 (5-15); BUN 19 mg/dL (7-18); BUN/Creat Ratio 23.1 RATIO (10-20); Calcium,Total 8.5 mg/dL (8.5-10.1); Chloride 103 mmol/L (98-107); Cholesterol 212 mg/dL (200); Creatinine, Serum 0.82 mg/dL (0.55-1.02); EST Glomerular Filtration Rate 74 mL/min (>60); Est Glom Filt Rate - Afr Amer 90 mL/min (>60); Ferritin 174 ng/mL (8-252); Globulin 4.2 g/dL (2.2-4.2); Glucose 138 mg/dL (74-106); High Density Lipoprotein 45 mg/dL; Iron 44 ug/dL (50-170); Magnesium 2.3 mg/dL (1.6-2.6); Phosphorus 3.4 mg/dL (2.5-4.9); Potassium 3.7 mmol/L (3.5-5.1); Protein, Total 7.7 g/dL (6.4-8.2); Sodium Level 138 mmol/L (136-145); Thyroid Stim Hormone (TSH) 1.69 uIU/mL (0.358-3.74); Triglycerides 201 mg/dL; Very Low Density Lipoprotein 40 mg/dL (5-40)
[2021-11-23 10:35] LABS: Hemoglobin A1c 6.3 % (3.8-5.6)
[2021-11-28 09:50] LABS: Zinc, Plasma or Serum 84 ug/dL (44-115)
== END | disposition home or self-care (01) ==
LOC: MFPLAB 08:30
PROVIDERS: PCP Family Medicine; Referring Provider Family Medicine; Visit Provider Family Medicine
DX: E11.9 Type 2 diabetes mellitus without complications (principal); Z98.84 Bariatric surgery status
CPT/HCPCS: 36415; 80053; 80061; 81001; 82043; 82570; 82607; 82728; 83036; 83540; 83735; 84100; 84443; 84630; 85025

== ENCOUNTER → 2021-12-06 | Outpatient (CLI) | payer MEDICARE, OTHER, SELFPAY ==
--- NOTE | 2021-12-06 12:56 | US_ITS ---
STUDY: THYROID ULTRASOUND REASON FOR EXAM: Female, 66 years old. MULTI THYROID NODULES TECHNIQUE: Ultrasound evaluation of the thyroid was performed with real-time and static barrera-scale imaging. COMPARISON: 11/03/2020 FINDINGS: RIGHT LOBE: The right lobe of the thyroid gland measures 5.1 x 2.2 x 2.4 cm. There is a homogeneous echotexture. Nodule 1: No change in the 24 x 17 x 17 mm solid hypoechoic wider than tall smoothly marginated nodule with no echogenic foci (TR 4) in the posterior right lobe for which ultrasound-guided biopsy is recommended if never performed. Nodule 2: No change in a 10 x 9 x 9 mm solid hypoechoic wider than tall ill-defined marginated nodular no echogenic foci (TR 4) in the posterior right lobe posterior to the larger nodule and follow-up ultrasound is recommended in 1 year. LEFT LOBE: The left lobe of the thyroid gland measures 4.6 x 1.6 x 1.2 cm. There is a homogeneous echotexture. Nodule 3: No change in 8 x 4 x 6 mm solid hypoechoic wider than tall ill-defined margin nodule no echogenic foci (TR 4) in the lateral left lobe consistent with an adenoma. ISTHMUS: The isthmus measures 4 mm thick. . The regional lymph nodes are normal. US/Thyroid IMPRESSION: No change in multinodular thyroid gland with a dominant nodule in the right lobe for which ultrasound-guided biopsy is recommended if never performed. Follow-up ultrasound is recommended in 1 year. Electronically Signed: Clemente Young MD at 17:39 EDT ,
== END | disposition home or self-care (01) ==
LOC: US 12:55
PROVIDERS: PCP Family Medicine; Visit Provider Family Medicine
DX: E04.2 Nontoxic multinodular goiter (principal)
CPT/HCPCS: 76536

== ENCOUNTER → 2022-02-14 | Outpatient (CLI) | payer MEDICARE, OTHER, SELFPAY ==
[2022-02-16 22:07] LABS: Free Kappa Light Chains 33.4 mg/L (3.3-19.4); Free Lambda Light Chains 25.9 mg/L (5.7-26.3)
== END | disposition home or self-care (01) ==
LOC: MTLAB 14:37
PROVIDERS: PCP Family Medicine; Referring Provider Psychiatry & Neurology Neurology; Visit Provider Psychiatry & Neurology Neurology
DX: G62.9 Polyneuropathy, unspecified (principal)
CPT/HCPCS: 36415; 82746; 83883

== ENCOUNTER → 2022-04-13 | Outpatient (CLI) | payer MEDICARE, OTHER, SELFPAY ==
--- NOTE | 2022-04-13 10:14 | BI_ITS ---
MAMMOGRAPHY - BILATERAL SCREENING 3-D TOMOSYNTHESIS REASON FOR EXAM: Female, 66 years old. screening PERTINENT HISTORY: No significant family history. TECHNIQUE: 2-D mammograms and 3-D Tomosynthesis of the breast (s) were performed. CAD was performed. COMPARISON: None. FINDINGS: The breast composition is composed of scattered fibroglandular density. Scattered benign calcifications are seen. No dense spiculated masses or suspicious microcalcifications are identified. No architectural distortion is identified. There is no skin thickening or retraction. There has been no significant change since the prior study. BI/SCRN MAMM (CAD)W/GAL BILAT IMPRESSION: No mammographic signs of malignancy. Routine yearly mammograms recommended. ASSESSMENT CATEGORY: BIRADS Category 1: Negative. A letter regarding these results will be sent to the patient by the facility within 30 days. FOLLOW UP RECOMMENDATION: Yearly follow up mammogram recommended. (A) Approximately 10% of breast cancers are not detected by mammography. A normal mammogram should not delay biopsy of a clinically suspicious abnormality. Electronically Signed: Clemente Young MD at 14:50 EDT ,
--- NOTE | 2022-04-13 10:15 | BD_ITS ---
STUDY: DUAL ENERGY X-RAY ABSORPTIOMETRY / DXA REASON FOR EXAM: Female, 66 years old. M810 TECHNIQUE: Bone Mineral Density (BMD) measurements of lumbar spine and bilateral hips were obtained. COMPARISON: None. FINDINGS: Lumbar Spine (L1-L4): g/cm2 (1.265) / T-score (2.1) / Z-score (3.9) Findings are suggestive of normal bone density with a low fracture risk. Left Femur Total: g/cm2 (1.031) / T-score (0.7) / Z-score (2.0) Left Femoral Neck: g/cm2 (0.888) / T-score (0.4) / Z-score (1.9) Right Femur Total: g/cm2 (1.070) / T-score (1.0) / Z-score (2.3) Right Femoral Neck: g/cm2 (0.865) / T-score (0.1) / Z-score (1.7) BD/Dexa Bone Density Study IMPRESSION: The patient is considered normal as outlined below according to World [employer] Organization (WHO) criteria with a low fracture risk. Reference Information: The T-score is the number of standard deviations above or below the standard which is normal for young adults at their peak bone mineral density. The World Health Organization (WHO) interprets the T-scores as follows: Above -1 Normal bone density Between -1 and -2.5 Osteopenia Equal to / or below -2.5 Osteoporosis As a practical clinical guideline, osteopenia may be graded as follows: Mild -1 through -1.5 Moderate -1.6 through -2.0 Severe -2.1 through -2.4 The Z-score is the number of standard deviations above or below age-matched controls. A Z-score of less than -1.5 would be considered abnormal. References: 1. NIH Osteoporosis and Related Bone Diseases www osteo.org 2. International Society for Clinical Densitometry www iscd.org 3. National Osteoporosis Foundation www nof.org Electronically Signed: Karlo Portillo MD at 15:42 EDT ,
== END | disposition home or self-care (01) ==
LOC: OPBD 10:11
PROVIDERS: PCP Family Medicine; Visit Provider Nurse Practitioner Family
DX: Z12.31 Encounter for screening mammogram for malignant neoplasm of breast (principal); M81.0 Age-related osteoporosis without current pathological fracture; Z13.820 Encounter for screening for osteoporosis
CPT/HCPCS: 77063; 77067; 77080

== ENCOUNTER → 2022-05-15 | Outpatient (CLI) | payer MEDICARE, OTHER, SELFPAY ==
[2022-05-18 15:08] LABS: Albumin 3.3 g/dL (2.9-4.4); Alpha-1-Globulins 0.2 g/dL (0.0-0.4); Alpha-2-Globulins 0.9 g/dL (0.4-1.0); Gamma Globulin 1.2 g/dL (0.4-1.8); Immunoglobulin A 173 mg/dL (87-352); Immunoglobulin G 1117 mg/dL (586-1602); Immunoglobulin M 109 mg/dL (26-217); PROEL- TOTAL PROTEIN 6.7 g/dL (6.0-8.5)
[2022-05-19 15:43] LABS: IMMUNOFIXATION RESULT,S Comment: (.); Immunofixation Urine Comment: (.)
== END | disposition home or self-care (01) ==
LOC: MTLAB 13:58
PROVIDERS: PCP Family Medicine; Referring Provider Psychiatry & Neurology Neurology; Visit Provider Psychiatry & Neurology Neurology
DX: G62.9 Polyneuropathy, unspecified (principal)
CPT/HCPCS: 36415; 82784; 84165; 86334; 86335

== ENCOUNTER → 2022-06-08 | Outpatient (CLI) | payer MEDICARE, OTHER, SELFPAY ==
--- NOTE | 2022-06-08 14:08 | RAD_ITS ---
STUDY: X-RAY - LUMBAR SPINE REASON FOR EXAM: Female, 66 years old. FACET ARTHROPATHY TECHNIQUE: 4 view(s) of the lumbar spine were obtained. COMPARISON: None FINDINGS: Normal lumbar lordosis. There is mild levo scoliosis. There is a normal alignment of the vertebrae. No acute fracture or subluxation. There is multilevel disc space narrowing and endplate spurring. There is multilevel spinal stenosis which appears to be aggravated by facet arthropathy at L4-5 and L5-S1... Inferior vena caval filter is noted. There is diffuse vascular opacification without evidence for aneurysm RAD/L/S Spine Min 4 Views IMPRESSION: Scoliosis and degenerative changes with probable multilevel spinal stenosis This may be further assessed with CT or MRI if indicated Electronically Signed: Sean Sims MD at 17:42 EST ,
--- NOTE | 2022-06-08 14:08 | RAD_ITS ---
STUDY: X-RAY - PELVIS AND BILATERAL HIPS REASON FOR EXAM: Female, 66 years old. HIP PAIN TECHNIQUE: AP view of the pelvis.? 2 views of the right hip, and 2 views of the left hip were obtained. COMPARISON: None. FINDINGS: There is a non-specific bowel gas pattern. Normal visualized soft tissue structures. Normal bilateral iliac wings, sacroiliac joints and visualized sacrum. Normal bilateral superior and inferior pubic rami. Normal pubic symphysis. Normal bilateral ischial tuberosities. Normal visualized right femoral head. Mild acetabular spurring is noted.. Narrowed superolateral aspect of the right hip joint. Normal visualized left femoral head. Minor acetabular spurring.. Normal left hip joint. RAD/Hips B/L min 2 views w/ Pelvis IMPRESSION: Degenerative osteoarthritic changes of the hips more severe on the right No acute fracture or other significant bony pathology. Electronically Signed: Sean Sims MD at 17:39 EST ,
[2022-06-08 18:01] LABS: Absolute Lymphocyte Count 2.62 X10^3/uL (0.83-4.51); Absolute Neutrophil Count 4.2 X10^3/uL (2.0-7.7); Basophil# 0.04 X10^3/uL; Basophil% 0.5 % (0-1); Eosinophil# 0.14 X10^3/uL; Eosinophils% 1.9 % (0-5); Hematocrit 38.9 % (37-47); Hemoglobin 12.5 g/dL (12.0-15.0); Lymphocyte # 2.62 X10^3/ul (0.83-4.51); Lymphocyte % 34.7 % (19-41); Mean Corp Hgb Conc 32.1 g/dL (32-36); Mean Corpuscular Hgb 30.2 pg (27.0-32.0); Mean Platelet Vol. 10.5 fl (6.2-12.0); Monocyte# 0.53 X10^3/uL; NRBC Flagged by Analyzer 0 % (0-5); Neutrophil # 4.18 X10^3/uL (2.7-7.7); Neutrophil % 55.5 % (47-70); Platelet Count 318 K/mm3 (150-450); RBC Distribution Width CV 13.6 % (11.6-14.6); RBC Distribution Width SD 46.7 fl (35.1-43.9); Red Blood Count 4.14 M/mm3 (4.2-5.4); White Blood Count 7.5 K/mm3 (4.4-11.0)
[2022-06-08 18:16] LABS: ALB/GLOB Ratio 0.9 RATIO (0.9-2.4); AST(SGOT) 24 U/L (15-37); Alanine Aminotransfer ALT/SGPT 33 U/L (13-56); Albumin, Serum 3.5 g/dL (3.2-5.0); Alkaline Phosphatase 67 U/L (45-117); Anion Gap 8 (5-15); BUN 21 mg/dL (7-18); BUN/Creat Ratio 26.8 RATIO (10-20); Calcium,Total 9.1 mg/dL (8.5-10.1); Chloride 104 mmol/L (98-107); Cholesterol 203 mg/dL (200); Creatinine, Serum 0.78 mg/dL (0.55-1.02); EST Glomerular Filtration Rate 78 mL/min (>60); Est Glom Filt Rate - Afr Amer 95 mL/min (>60); Ferritin 107 ng/mL (8-252); Globulin 4.1 g/dL (2.2-4.2); Glucose 139 mg/dL (74-106); High Density Lipoprotein 51 mg/dL; Iron 50 ug/dL (50-170); Magnesium 2.1 mg/dL (1.6-2.6); Potassium 3.6 mmol/L (3.5-5.1); Protein, Total 7.6 g/dL (6.4-8.2); Sodium Level 138 mmol/L (136-145); Triglycerides 168 mg/dL; Very Low Density Lipoprotein 34 mg/dL (5-40)
[2022-06-08 18:22] LABS: Hemoglobin A1c 7.1 % (3.8-5.6)
[2022-06-08 18:28] LABS: Vitamin B12 1183 pg/mL (211-911)
[2022-06-13 16:20] LABS: Zinc, Plasma or Serum 85 ug/dL (44-115)
== END | disposition home or self-care (01) ==
PROVIDERS: PCP Family Medicine; Referring Provider Family Medicine; Visit Provider Family Medicine
DX: M47.816 Spondylosis without myelopathy or radiculopathy, lumbar region (principal); E11.9 Type 2 diabetes mellitus without complications; M16.0 Bilateral primary osteoarthritis of hip; M41.9 Scoliosis, unspecified; M51.36 Other intervertebral disc degeneration, lumbar region; M25.559 Pain in unspecified hip; Z98.84 Bariatric surgery status
CPT/HCPCS: 36415; 72110; 73521; 80053; 80061; 82607; 82728; 83036; 83540; 83735; 84100; 84630; 85025

== ENCOUNTER → 2022-07-24 | Outpatient (CLI) | payer MEDICARE, OTHER, SELFPAY ==
--- NOTE | 2022-07-24 08:07 | MRI_ITS ---
HISTORY: Follow-up meningioma; mild cognitive impairment. TECHNIQUE: Multiplanar and multisequence MR images of the brain were obtained before and after the intravenous administration of 22 mL Clariscan. 352 images. COMPARISON: 03/30/2021. FINDINGS: BRAIN PARENCHYMA: Moderate chronic white matter changes again noted. No abnormal focus of restricted diffusion. No acute intracranial hemorrhage identified. CSF SPACES: Mild generalized volume loss similar to prior. No significant midline shift or other mass effect. 4 x 4 x 5 mm solidly enhancing and dural based extra-axial lesion of the right posterior frontal region again noted. No extra-axial fluid collection. VASCULAR SYSTEM: Major intracranial flow voids are maintained. PARANASAL SINUSES AND MASTOID AIR CELLS: No significant air fluid levels. ORBITS: Symmetric contents. MRI/Brain W/WO Contrast IMPRESSION: No significant interval change in size of small right posterior frontal meningioma. No evidence for acute infarct. Chronic involutional and white matter changes. Electronically Signed: Shikha Avendaño MD at 15:57 EST ,
[2022-07-25 07:55] LABS: CREATININE FINGERSTICK < 0.9 mg/dL (0.55-1.02); EGFR FINGERSTICK > 60.0000 mL/min (>60)
== END | disposition home or self-care (01) ==
PROVIDERS: PCP Family Medicine; Referring Provider Psychiatry & Neurology Neurology; Visit Provider Psychiatry & Neurology Neurology
DX: D32.0 Benign neoplasm of cerebral meninges (principal); G31.84 Mild cognitive impairment of uncertain or unknown etiology
CPT/HCPCS: 70553; A9575

== ENCOUNTER → 2022-08-31 | Outpatient (CLI) | payer MEDICARE, OTHER, SELFPAY ==
[2022-09-05 15:08] LABS: Albumin 3.4 g/dL (2.9-4.4); Alpha-1-Globulins 0.3 g/dL (0.0-0.4); Alpha-2-Globulins 0.9 g/dL (0.4-1.0); Free Lambda Light Chains 27.3 mg/L (5.7-26.3); Gamma Globulin 1.3 g/dL (0.4-1.8); Immunoglobulin A 184 mg/dL (87-352); Immunoglobulin G 1167 mg/dL (586-1602); Immunoglobulin M 103 mg/dL (26-217); PROEL- TOTAL PROTEIN 6.9 g/dL (6.0-8.5)
[2022-09-05 18:24] LABS: IMMUNOFIXATION RESULT,S Comment: (.)
== END | disposition home or self-care (01) ==
LOC: MFPLAB 10:33
PROVIDERS: PCP Family Medicine; Referring Provider Family Medicine; Visit Provider Psychiatry & Neurology Neurology
DX: G62.9 Polyneuropathy, unspecified (principal); G31.84 Mild cognitive impairment of uncertain or unknown etiology
CPT/HCPCS: 36415; 82784; 83883; 84165; 84425; 86334; 86335

== ENCOUNTER → 2022-11-06 | Outpatient (CLI) | payer MEDICARE, OTHER, SELFPAY ==
[2022-11-06 15:40] LABS: Hematocrit 38.5 % (37-47); Hemoglobin 12.5 g/dL (12.0-15.0); Mean Corp Hgb Conc 32.5 g/dL (32-36); Mean Corpuscular Hgb 31.3 pg (27.0-32.0); Mean Corpuscular Volume 96.3 fL (81-99); Mean Platelet Vol. 10.4 fl (6.2-12.0); Platelet Count 288 K/mm3 (150-450); RBC Distribution Width CV 13.2 % (11.6-14.6); RBC Distribution Width SD 47.3 fl (35.1-43.9); White Blood Count 8.5 K/mm3 (4.4-11.0)
[2022-11-06 16:13] LABS: Ferritin 143 ng/mL (8-252); Iron 58 ug/dL (50-170)
== END | disposition home or self-care (01) ==
LOC: MFPLAB 14:13
PROVIDERS: PCP Family Medicine; Visit Provider Psychiatry & Neurology Neurology
DX: Z86.39 Personal history of other endocrine, nutritional and metabolic disease (principal); Z86.2 Personal history of diseases of the blood and blood-forming organs and certain disorders involving the immune mechanism
CPT/HCPCS: 36415; 82728; 83540; 85027

== ENCOUNTER → 2022-12-25 | Outpatient (CLI) | payer MEDICARE, OTHER, SELFPAY ==
[2022-12-25 15:58] LABS: Thyroid Stim Hormone (TSH) 0.81 uIU/mL (0.358-3.74)
[2022-12-27 14:10] LABS: Albumin 3.4 g/dL (2.9-4.4); Alpha-1-Globulins 0.2 g/dL (0.0-0.4); Alpha-2-Globulins 0.9 g/dL (0.4-1.0); Immunoglobulin A 157 mg/dL (87-352); Immunoglobulin G 1074 mg/dL (586-1602); Immunoglobulin M 96 mg/dL (26-217); PROEL- TOTAL PROTEIN 6.6 g/dL (6.0-8.5)
== END | disposition home or self-care (01) ==
LOC: MFPLAB 11:28
PROVIDERS: PCP Family Medicine; Visit Provider Psychiatry & Neurology Neurology
DX: G31.84 Mild cognitive impairment of uncertain or unknown etiology (principal); G62.9 Polyneuropathy, unspecified
CPT/HCPCS: 36415; 82746; 82784; 84165; 84443; 86334

== ENCOUNTER 2023-01-18 14:00 | Outpatient (RCR) | payer MEDICARE, OTHER, SELFPAY ==
--- NOTE | 2022-12-27 11:33 | HP.PTEVAL ---
Patient's Visit Information ART BLUE is a 67 year old F referred to Physical Therapy by Dr. Jose Ramon Terry DO with a diagnosis of OA R HIP. Date of Evaluation: 12/27/22 Physical Therapist: Isabella Garcia PT, Cert MDT - Visit Plan Frequency: 2-3x /Week Duration: 4-6 Weeks Plan: AQUATIC THERAPY FOR PAIN RELEIF, POSTURE CORRECTION/STRENGTHENING, INSTRUCTION IN APPROPRIATE BODY MECHANICS AND ACTIVITY MODIFICATIONS. GAIT TRAINING. DLS STARTING WITH A NEUTRAL SPINE PROGRESSING ROM TOLERATED. ANA LE ROM, STRETCHING AND STRENGTHENING. HEP INSTRUCTION. - Subjective Work/Leisure: RETIRED. Disability: NO. Present symptoms: RIGHT HIP PAIN. R GROIN PAIN. PAIN SOMETIMES RADIATES TO KNEE IF HIP REALLY CATCHES. DIABETIC NEUROPATHY. Present since: ON AND OFF FOR YEARS BUT OVER THE LAST YEAR WORSENING AND BECOMING MORE CONSTANT. Pain Scale: WORST 8/10, LEAST 3/10. Currently: 3/10. Is it getting better, worse or staying the same: GETTING WORSE. Commenced as a result of: NO APPARENT REASON. Symptoms at onset: R GROIN PAIN. Worse: WALKING, TWISTING. Better: SITTING, LYING DOWN. Disturbed sleep: NO. Previous history/Previous treatment: NONE. Treatment this episode: 3 RIGHT HIP INJECTIONS BY DR. CRISOSTOMO WITH THE LAST ONE BEING A FEW MONTHS AGO. VERY TEMPORARY RELIEF THEREFORE REFERRED TO DR. TERRY. ONE CONSULT WITH DR. TERRY. WANTS HER TO TRY PT FOR 6 WKS THEN FOLLOW BACK UP WITH HIM TO ASSESS NEED FOR THR. X-RAY IS NOT BONE ON BONE PER PATIENT REPORT. Gait: GETTING AROUND WITH CANE AND FURNITURE WALKING FOR THE MOST PART. Bowel or Bladder Dysfunction: NO. Accidents: NO. Unexplained weight loss: NO. Imaging: R HIP X-RAY SHOWING ARTHRITIS PER PATIENT REPORT. PMH/Recent major surgery: NIDDM, DIABETIC NEUROPATHY, H/O DVT AND PE THEREFORE ON BLOOD THINNER, GASTRIC BYPASS, HTN, SLEEP APNEA. - Objective Sitting/Standing Posture: POOR. REDUCED LORDOSIS BUT NO RELEVANT LATERAL LUMBAR SHIFT. Active Correction of posture: NE. Other Observations: INDEP GAIT INTO PT LIMPING ON R LE AND USING STRAIGHT CANE INAPPROPRIATELY. Sensory deficit: ANA LE LIGHT TOUCH SENSATION GROSSLY INTACT AND SYMMETRICAL BUT PATIENT REPORTS ALTERED SENSATION FROM NEUROPATHY. ROM deficit: TIGHT ANA HIP ROTATORS AND C/O R GROIN PAIN WITH R HIP TESTING. Motor deficit: R LE: HIP 3+/5, KNEE 4/5, ANKLE 5/5. L LE: HIP 4/5, KNEE 4/5, ANKLE 5/5. Dural Signs: NEGATIVE ANA LE'S. Lumbar mvmt loss: flex - MIN. ext - BELEN. R SG - MOD. L SG - MOD. PATIENT C/O INCREASED R GROIN PAIN WITH LUMBAR ROM TESTING ALL PLANES. Core strength: POOR. TREATMENT: GAIT TRAINING WITH STRAIGHT CANE ON LEVEL SURFACES AND UP AND DOWN STEPS WITH STEP TO PATTERN. PATIENT COMMUNICATED/DEMONSTRATED A GOOD UNDERSTANDING OF ALL INSTRUCTIONS AFTER GIVEN AND NOTED IMPROVEMENT WITH PROPER TECHNIQUE. - Balance/Special Test Scores Lower Extremity Functional Score: 34 TUG Test Time Seconds: 23.70 30 Second Chair Rise Test Seconds: 5 - Goals Goal 1:: DECREASE C/O R HIP PAIN Goal Time Frame: 4-6 Weeks Goal 2:: PATIENT WILL COMPLETE 8 STANDS IN 30 SECS TO DEMONSTRATE IMPROVED FUNCTIONAL STRENGTH Goal 3:: PATIENT WILL COMPLETE TUG IN < 15 SECS TO DEMONSTRATE IMPROVED GAIT STABILITY Goal 4:: PATIENT WILL DEMONSTRATED INDEP AND SAFE GAIT UP AND DOWN STEPS RECIPRICALLY WITH LEAST ASSISTIVE DEVICE. Goal 5:: PATIENT WILL BE INDEP WITH A HEP FOR CONTINUED IMPROVEMENT ONCE FORMAL PHYSICAL THERAPY CONCLUDES. - Anticipated Interventions Patient/Client Instruction: Educate patient on: Condition, Plan of Care, Risk Factors For the Purpose of:: To improve self management Therapeutic Exercise to Include: Strength training, Body mechanics, Postural training, Flexibilty training, Gait and locomotor training, Neuromotor development, In an aquatic setting, Dynamic Lumbar Stabilization For the Purpose of:: To decrease pain, To increase ROM, To improve muscle performance and motor function, To increase tolerance to activity/condition/position, To improve ability of physical actions for home/community/work/leisure, To improve gait and locomotor functions Thank you for the opportunity to evaluate your patient. For Medicare and Medicare HMO plans, please review the plan of care and approve it. It will need to be FAXED BACK to us at [phone] for Medicare purposes. For Medicare only, by signing this I certify the plan of care. Please let me know if there are questions or concerns regarding this plan of care. Physician Signature: Date:
--- NOTE | 2023-01-31 13:59 | HP.PT.NRP ---
Patient Information Patient Information: ART BLUE was seen in my office for initial evaluation on 12/27/22. The following Plan of Care was established for this patient: POC Established Initial Frequency: 2-3x /Week Initial Duration: 4-6 Weeks Anticipated Interventions Patient/Client Instruction: Educate patient on: Condition, Plan of Care and Risk Factors For the Purpose of:: To improve self management Therapeutic Exercise to Include: Strength training, Body mechanics, Postural training, Flexibilty training, Gait and locomotor training, Neuromotor development, In an aquatic setting and Dynamic Lumbar Stabilization For the Purpose of:: To decrease pain, To increase ROM, To improve muscle performance and motor function, To increase tolerance to activity/condition/position, To improve ability of physical actions for home/community/work/leisure and To improve gait and locomotor functions Last Seen Last Seen: This patient was last seen in our office . Pertinent comments regarding their Physical therapy will appear below: PATIENT CALLED TO CANCEL REMAINING PT DUE TO PNEUMONIA. SHE APPEARED TO BE IMPROVING WITH PT PRIOR TO GETTING SICK. At this point I will be discontinuing this patient from physical therapy. I would be happy to see this patient again in the future if found appropriate by the physician. Thank you! Isabella Garcia, PT, Cert MDT Balance/Gait/Functional tests Balance/Special Test Scores Lower Extremity Functional Score: 34 TUG Test Time Seconds: 23.70 Tug Test: 20-30sec.=variable mobility 30 Second Chair Rise Test Seconds: 5
== END 2023-01-18 19:00 | disposition home or self-care (01) ==
LOC: PT 14:00
PROVIDERS: PCP Family Medicine; Referring Provider Orthopaedic Surgery; Visit Provider Orthopaedic Surgery
DX: M16.11 Unilateral primary osteoarthritis, right hip (principal)
CPT/HCPCS: 97113; 97116; 97162

== ENCOUNTER 2023-01-20 11:22 | Emergency (ER) | payer MEDICARE, OTHER, SELFPAY ==
[2023-01-20 11:23] VITALS: BP 130/64; PULSE 82; RESP 18; TEMP 37.1; O2SAT 94; BMI 40.1
--- NOTE | 2023-01-20 11:36 | CT_ITS ---
STUDY: CTA CHEST REASON FOR EXAM: Female, 67 years old. Back pain, SOB, H/O PE RADIATION DOSAGE (If Supplied By Facility): CTDIvol = ( 44.71 ) mGy, DLP = ( 531.34 ) mGycm TECHNIQUE: The examination was performed with the intravenous administration of IV 100mL Isovue-370. Post-processing of the angiographic images was performed, with multiplanar reformation and 3D reconstruction. Individualized dose optimization techniques were used for this CT. COMPARISON: Prior CT chests of 05/06/2013. FINDINGS: Normal enhancement of the main pulmonary artery and right and left pulmonary arteries. Normal enhancement of the bilateral peripheral pulmonary arteries. There is no demonstrated pulmonary embolism. Calcifications of the aortic root. Atherosclerotic calcifications of the thoracic aorta without evidence of aneurysm. There is no demonstrated aortic dissection. Normal heart and pericardium. Coronary calcifications. Normal mediastinum. Normal hilar regions. Normal visualized trachea and bronchi. Moderate stranding and atelectatic changes in both lower lobes markedly worse on the right side. Difficult to exclude underlying mass. Small right pleural effusion. Vague patchy small opacity in the right middle lobe could be due to scarring. Normal chest wall structures. No demonstrated acute osseous changes. Stable 2.8 cm left adrenal mass consistent with adenoma. 1.7 cm nodule in the right adrenal gland with small calcification again likely due to adenoma not included on the previous examination. CT/CTA Chest W/WO Contrast IMPRESSION: 1. No evidence of pulmonary embolism or aortic dissection. 2. Atelectatic changes in the right lower lobe. Follow-up exam is recommended to exclude underlying pulmonary nodule. 3. Coronary calcifications. 4. Left adrenal adenoma unchanged. Small right adrenal nodule probably due to adenoma.. Electronically Signed: Farhan Sams MD at 13:15 EDT ,
--- NOTE | 2023-01-20 11:36 | EKG12_ITS ---
Test Reason : sob Blood Pressure : / mmHG Vent. Rate : 068 BPM Atrial Rate : 068 BPM P-R Int : 186 ms QRS Dur : 086 ms QT Int : 362 ms P-R-T Axes : 063 057 035 degrees QTc Int : 384 ms Normal sinus rhythm Normal ECG Confirmed by IVÁN ROONEY, ALAN ([id number]), editor newspaper CLARI JAUREGUI ([id number]) on 01/22/2023 12:41:03 PM Referred By: Jovita Confirmed By:ALAN MINOR MD
--- NOTE | 2023-01-20 11:38 | EX.ED.DYSGE1 ---
HPI History of Present Illness Chief Complaint: Shortness of Breath Detail of Chief Complaint: Back pain, shortness of breath, fever Informant: patient Onset/Context/Timing Onset: Days Context: Gradual Onset Narrative Narrative: Patient presents with a 3-day history of right mid back pain with mild shortness of breath and fever. She reports her temperature up to 102.7 at home. She is had a very mild dry cough. She went to urgent care today and because of her history of pulmonary embolism was referred to the emergency room. She is currently on Coumadin. She denies any other obvious source of fever. [facility] Medical History Anxiety and depression Diabetes Gastric ulcer GERD (gastroesophageal reflux disease) Glaucoma High cholesterol History of DVT (deep vein thrombosis) History of kidney stones History of pneumonia History of UTI HTN (hypertension) Neuropathy Home Medications cyanocobalamin (vitamin B-12) 500 mcg tablet 500 mcg PO DAILY@0800 SUPPLEMENT 02/11/14 [History Last Taken 12/14/18] ferrous sulfate 325 mg (65 mg iron) tablet 325 mg PO DAILY@0800 SUPPLEMENT 02/11/14 [History Last Taken 12/14/18] lisinopril 10 mg-hydrochlorothiazide 12.5 mg tablet 1 tab PO DAILY BLOOD PRESSURE 02/11/14 [History Last Taken 12/14/18] multivitamin with folic acid 400 mcg tablet 1 tab PO DAILY SUPPLEMENT 02/11/14 [History Last Taken 12/14/18] omeprazole 20 mg capsule,delayed release 20 mg PO BID REFLUX 02/11/14 [History Last Taken 12/14/18] trazodone 50 mg tablet 50 mg PO QHS SLEEP 02/11/14 [History Last Taken 12/13/18] venlafaxine 75 mg tablet 75 mg PO BID DEPRESSION 02/11/14 [History Last Taken 12/14/18] biotin 10,000 mcg capsule 10,000 mcg PO DAILY HAIR LOSS 05/30/21 [History Last Taken Unknown] buspirone 5 mg tablet 5 mg PO TID PRN 05/30/21 [History Last Taken Unknown] calcium carbonate 600 mg-vitamin D3 12.5 mcg (500 unit) capsule (Calcium 600 with Vitamin D3) 1 cap PO BID 05/30/21 [History Last Taken Unknown] gabapentin 300 mg capsule 300 mg PO BID 05/30/21 [History Last Taken Unknown] metformin 1,000 mg tablet 1,000 mg PO DAILY 05/30/21 [History Last Taken Unknown] warfarin 10 mg tablet 10 mg PO DAILY 05/30/21 [History Last Taken Unknown] warfarin 3 mg tablet 3 mg PO .COMPLEX 05/30/21 [History Last Taken Unknown] baclofen 10 mg tablet 10 mg PO TID PRN restless legs #30 tabs 10/30/22 [Rx Last Taken Unknown] ropinirole 2 mg tablet 2 mg PO QHS #90 tabs 10/30/22 [Rx Last Taken Unknown] meclizine 25 mg tablet 25 mg PO BID PRN dizziness #60 tabs 12/26/22 [Rx Last Taken Unknown] doxycycline monohydrate 100 mg capsule 100 mg PO BID #20 CAPSULES 01/20/23 [Rx Last Taken Unknown] Allergy/AdvReac Type Severity Reaction Status Date / Time amoxicillin Allergy Mild rash Verified 01/20/23 11:26 atorvastatin AdvReac Mild myalgiias Verified 01/20/23 11:26 levofloxacin [From Levaquin] AdvReac Unknown Nausea Verified 01/20/23 11:26 Family History Mother Heart disease Hypertension Father Heart disease CVA (cerebral vascular accident) Brother Cancer Surgical History History of carpal tunnel release of both wrists History of colonoscopy (~2014) History of dilation and curettage History of [place]-en-Y gastric bypass History of umbilical hernia repair Status post biopsy of thyroid gland (~08/2019) Status post panniculectomy Social History household members: spouse housing: house Smoking Status: Former smoker Tobacco: How many years used: 40 Electronic Cigarette Use: not used how long ago did patient quit smoking: about a year and half ago second hand exposure: No alcohol intake: never substance use type: does not use what type of physical activity do you participate in: none do you feel safe at home: Yes ROS ROS ED Constitutional Constitutional ED: Reports fever(s); Denies chills Eyes Eyes: Denies change in vision or discharge from eye(s) ENT ENT ED: Denies discharge from eye(s), rhinorrhea or sore throat Cardiovascular Cardiovascular: Reports chest pain; Denies palpitations Respiratory/Chest Respiratory/Chest: Reports cough and dyspnea Gastrointestinal Gastrointestinal: Denies abdominal pain, nausea or vomiting Genitourinary Genitourinary ED: Denies difficulty urinating or dysuria Musculoskeletal Musculoskeletal: Reports back pain; Denies extremity pain Integumentary Denies Abrasions or rash Neurologic Neurologic: Denies headache(s) or weakness Psychiatric Psychiatric: Denies anxiety or depression Allergic/Immunologic Allergic/Immunologic ED: Denies lip swelling or urticaria EXAM Physical Exam Const Vital Signs: 01/20/23 11:23 01/20/23 11:55 01/20/23 11:55 Temperature 98.8 F 97.8 F Temperature Source Oral Temporal Pulse Rate 82 72 Respiratory Rate 18 18 Respiratory Effort Short of Breath Blood Pressure 130/64 H 132/81 H Blood Pressure Mean 86 98 Pulse Ox 94 90 Oxygen Delivery Method Room Air Room Air Room Air Positive well nourished and well developed General Appearance ED: well developed HEENT Reports moist mucous membranes Eyes PERRL and EOMs intact bilaterally Chest Wall inspection of chest normal and palpation of chest normal Resp normal respiratory effort and clear to auscultation bilaterally Cardio regular rate and regular rhythm GI non-tender Auscultation: normoactive bowel sounds Extremity normal to inspection Neuro oriented x3 and no sensory deficits noted Motor Exam: strength 5/5 throughout Psych mental status grossly normal Skin no rashes or lesions noted MDM MDM MDM Narrative Medical decision making narrative: 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 EKG obtained to evaluate for cardiac arrhythmia/ischemia. Labwork obtained to evaluate for leukocytosis, anemia, and electrolyte derangement. Given her history of pulmonary emboli a CTA of the chest was obtained to evaluate for infiltrate versus embolus. Lab Data Attestation: I reviewed the patient's lab results. Labs: Laboratory Results - last 24 hr 01/20/23 11:55 WBC 10.5 RBC 3.61 L Hgb 11.3 L Hct 34.6 L MCV 95.8 MCH 31.3 MCHC 32.7 RDW Std Deviation 49.1 H RDW Coeff of Les 13.9 Plt Count 262 MPV 10.1 Immature Gran % (Auto) 1.300 H Neut % (Auto) 68.6 Lymph % (Auto) 20.2 [place] % (Auto) 9.0 Eos % (Auto) 0.6 Baso % (Auto) 0.3 Absolute Neuts (auto) 7.2 Absolute Lymphs (auto) 2.12 Nucleated RBC % 0 PT 25.5 H INR 2.3 Sodium 138 Potassium 4.5 Chloride 106 Carbon Dioxide 29.0 Anion Gap 3 L BUN 35 H Creatinine 1.15 H Estim Creat Clear Calc 43.30 Est GFR (MDRD) Af Amer 61 Est GFR (MDRD) Non-Af 50 L BUN/Creatinine Ratio 30.4 H Glucose 112 H Calcium 9.0 Troponin I High Sens < 3 L Radiography Diagnostic Testing: Clinical Impression(s) from Imaging Studies Chest CTA 01/20/23 11:36 IMPRESSION: 1. No evidence of pulmonary embolism or aortic dissection. 2. Atelectatic changes in the right lower lobe. Follow-up exam is recommended to exclude underlying pulmonary nodule. 3. Coronary calcifications. 4. Left adrenal adenoma unchanged. Small right adrenal nodule probably due to adenoma.. Electronically Signed: Farhan Sams MD at 13:15 EDT , EKG Initial EKG: Attestation: I personally reviewed and interpreted this EKG as follows: Interpretation: Sinus Rhythm (Sinus at 68 with no acute ischemia. QTc is 384.) Differential Diagnosis Chest pain/SOB: pulmonary embolism Reason(s) PE less likely: Positive for patient taking oral anticoagulants and Other (No evidence of embolus on imaging studies.), ACS ACS: Positive for no evidence of ACS based on cardiac biomarkers and EKG without ischemia and pneumothorax Reason(s) pneumothorax less likely: Positive for bilateral breath sounds and Other (No evidence of pneumothorax on imaging studies.) Treatment and Re-Evaluation :: CBC was normal white count at 10.5 with 68% neutrophils. Hemoglobin is 11.3. INR is therapeutic at 2.3. Chemistry studies reveal a BUN of 35 and a creatinine 1.15. This is slightly elevated above her baseline. Troponin is less than 3. CTA of the chest reveals atelectasis with no evidence of pulmonary embolism. Given the patient's fever, shortness of breath, location of pain, and localized atelectasis in this area I will cover her for pneumonia. Given her antibiotic allergies she will be treated with doxycycline. Return instructions are given. Discharge Plan Triage Chief Complaint: Shortness of Breath ED Provider: Osiris Arana Dx/Rx/DC Orders Clinical Impression: Pneumonia Instructions: ED Pneumonia (Adult) Prescriptions: New doxycycline monohydrate 100 mg capsule 100 mg PO BID Qty: 20 0RF No Action buspirone 5 mg tablet 5 mg PO TID PRN warfarin 10 mg tablet 10 mg PO DAILY metformin 1,000 mg tablet 1,000 mg PO DAILY calcium carbonate-vitamin D3 [Calcium 600 with Vitamin D3] 600 mg(1,500mg) -500 unit capsule 1 cap PO BID warfarin 3 mg tablet 3 mg PO .COMPLEX Rx Instructions: 3 mg PO; TUES, THURS, SAT, SUN gabapentin 300 mg capsule 300 mg PO BID Patient Comments: TAKE 1 CAPSULE TWICE DAILY FOR 28 DAYS ropinirole 2 mg tablet 2 mg PO QHS Qty: 90 1RF baclofen 10 mg tablet 10 mg PO TID PRN (Reason: restless legs) Qty: 30 5RF venlafaxine 75 MG tablet 75 mg PO BID Patient Comments: ANXIETY/DEPRESSION trazodone 50 MG tablet 50 mg PO QHS Patient Comments: INSOMINIA cyanocobalamin (vitamin B-12) 500 MCG tablet 500 mcg PO DAILY@0800 Patient Comments: SUPPLEMENT ferrous sulfate 325 MG tablet 325 mg PO DAILY@0800 Patient Comments: SUPPLEMENT omeprazole 20 MG capsule 20 mg PO BID Patient Comments: ACID REFLUX lisinopril-hydrochlorothiazide 1 TABLET tablet 1 tab PO DAILY Patient Comments: BLOOD PRESSURE multivitamin with folic acid 1 TABLET tablet 1 tab PO DAILY Patient Comments: SUPPLEMENT biotin 10,000 mcg capsule 10,000 mcg PO DAILY Patient Comments: SUPPLEMENT meclizine 25 mg tablet 25 mg PO BID PRN (Reason: dizziness) Qty: 60 3RF Primary Care Provider: Deysi Castro Referrals: Deysi Castro, [Primary Care Provider] - 1-2 Weeks Disposition Disposition: Home, Self Care
[2023-01-20 11:55] VITALS: BP 132/81; PULSE 72; RESP 18; TEMP 36.6; O2SAT 90; O2SAT 93
[2023-01-20 12:05] LABS: Absolute Lymphocyte Count 2.12 X10^3/uL (0.83-4.51); Absolute Neutrophil Count 7.2 X10^3/uL (2.0-7.7); Basophil# 0.03 X10^3/uL; Basophil% 0.3 % (0-1); Eosinophil# 0.06 X10^3/uL; Eosinophils% 0.6 % (0-5); Hematocrit 34.6 % (37-47); Hemoglobin 11.3 g/dL (12.0-15.0); Lymphocyte # 2.12 X10^3/ul (0.83-4.51); Lymphocyte % 20.2 % (19-41); Mean Corp Hgb Conc 32.7 g/dL (32-36); Mean Corpuscular Hgb 31.3 pg (27.0-32.0); Mean Corpuscular Volume 95.8 fL (81-99); Mean Platelet Vol. 10.1 fl (6.2-12.0); Monocyte# 0.95 X10^3/uL; NRBC Flagged by Analyzer 0 % (0-5); Neutrophil # 7.21 X10^3/uL (2.7-7.7); Neutrophil % 68.6 % (47-70); Platelet Count 262 K/mm3 (150-450); RBC Distribution Width CV 13.9 % (11.6-14.6); RBC Distribution Width SD 49.1 fl (35.1-43.9); Red Blood Count 3.61 M/mm3 (4.2-5.4); White Blood Count 10.5 K/mm3 (4.4-11.0)
[2023-01-20 12:15] LABS: International Normalized Ratio 2.3; Prothrombin Time (Protime)PT. 25.5 SECONDS (11.7-14.9)
[2023-01-20 12:19] LABS: Anion Gap 3 (5-15); BUN 35 mg/dL (7-18); BUN/Creat Ratio 30.4 RATIO (10-20); Chloride 106 mmol/L (98-107); Creatinine, Serum 1.15 mg/dL (0.55-1.02); EST Glomerular Filtration Rate 50 mL/min (>60); Est Glom Filt Rate - Afr Amer 61 mL/min (>60); Glucose 112 mg/dL (74-106); Potassium 4.5 mmol/L (3.5-5.1); Sodium Level 138 mmol/L (136-145); Troponin-I HS < 3 pg/mL (3.0-54.0)
[2023-01-20] MEDS: 0.9% Normal Saline 1,000 ML 150 ML IV (12:44)
[2023-01-20 13:29] VITALS: PULSE 84; RESP 18; O2SAT 95
[2023-01-20] MEDS: Doxycycline 100 MG CAPSULE PO (13:34)
== END 2023-01-20 13:42 | disposition home or self-care (01) ==
PROVIDERS: Emergency Provider Emergency Medicine; PCP Family Medicine; Visit Provider Emergency Medicine
DX: J18.9 Pneumonia, unspecified organism (principal); E11.40 Type 2 diabetes mellitus with diabetic neuropathy, unspecified; M54.9 Dorsalgia, unspecified; E78.00 Pure hypercholesterolemia, unspecified; I10 Essential (primary) hypertension; Z87.891 Personal history of nicotine dependence; Z79.01 Long term (current) use of anticoagulants; Z86.711 Personal history of pulmonary embolism
CPT/HCPCS: 96360; 99285; 71275; 80048; 84484; 85025; 85610; 93005; J7030; Q9967; A4216

== ENCOUNTER 2023-01-23 03:02 | Inpatient (IN) | payer MEDICARE, OTHER, SELFPAY ==
[2023-01-23] VITALS (9 sets, daily range): BP systolic 118–171; BP diastolic 51–79; PULSE 73–95; RESP 15–20; TEMP 36.6–38.1; O2SAT 88–100; BMI 40.9; BMI 41.1
--- NOTE | 2023-01-23 03:29 | CT_ITS ---
EXAM: CT ANGIOGRAPHY CHEST WITHOUT AND WITH INTRAVENOUS CONTRAST CLINICAL INDICATION: Chest pain with inspiration/? Pulmonary infarction TECHNIQUE: Helically acquired angiography images were obtained of the chest without and with intravenous contrast. This CT exam was performed using one or more of the following dose reduction techniques: automated exposure control, adjustment of the mA and/or kV according to patient size, and/or use of iterative reconstruction technique. MIP reconstructed images were created and reviewed. CONTRAST: IV 100mL Isovue-370 RADIATION DOSE: Total DLP: 521.55 mGy-cm. COMPARISON: CTA of 3 days ago, 01/20/2023. FINDINGS: PULMONARY ARTERIES: Unremarkable. Normal in caliber. No evidence of pulmonary embolism. AORTA: Calcific thoracic aorta. Normal in caliber. No evidence of dissection. GREAT VESSELS OF AORTIC ARCH: Unremarkable. Normal in caliber. No evidence of dissection. LUNGS AND PLEURAL SPACES: Right pleural effusion has enlarged with a moderate large right pleural effusion now present. There is a small loculated collections of pleural fluid in the right major fissure, known as pseudotumors. There is increasing consolidation within the right lower lobe adjacent to the enlarging pleural effusion, most likely atelectasis though there could also be pneumonia in the right lower lobe. Discoid atelectasis noted within the dependent portion of the left lung. Multiple small foci of groundglass opacity have developed within the left upper lobe, more central than subpleural. No cavitary pulmonary lesions. No left pleural effusion. HEART: Coronary artery calcification is present. No significant pericardial effusion. MEDIASTINUM: Interval development of mild right hilar adenopathy. A borderline enlarged precarinal node is present, with this node showing a benign fatty hilum. Esophagus is unremarkable. No hiatal hernia. THYROID: Unremarkable. No thyroid lesions. BONES/JOINTS: Thoracic degenerative spurring. No suspicious lytic or blastic abnormality. UPPER abd: Liver demonstrates fatty infiltration. Visualized portions of the gallbladder, pancreas, spleen and left renal upper pole are unremarkable. Bilateral adrenal nodules are again noted, larger on the left, both of these adrenal nodule shows CT attenuation of near water, consistent with benign adrenal adenomas. There is been previous gastric surgery. No pneumoperitoneum. CT/CTA Chest W/WO Contrast IMPRESSION: Negative for PE. Enlarging right pleural effusion with increasing right lower lobe infiltrate due to compressive atelectasis and possible pneumonia. Groundglass opacities within the left upper lobe, primarily central, most likely due to developing pneumonia, possibly Covid pneumonia. Interval development of mild right hilar adenopathy. Electronically Signed: Manuel Bassett MD at 5:20 EDT ,
[2023-01-23 03:49] LABS: Absolute Neutrophil Count 7.5 X10^3/uL (2.0-7.7); Basophil# 0.05 X10^3/uL; Basophil% 0.5 % (0-1); Eosinophil# 0.19 X10^3/uL; Eosinophils% 1.9 % (0-5); Hematocrit 32.1 % (37-47); Hemoglobin 10.4 g/dL (12.0-15.0); Lymphocyte % 11.3 % (19-41); Mean Corp Hgb Conc 32.4 g/dL (32-36); Mean Corpuscular Hgb 30.8 pg (27.0-32.0); Mean Platelet Vol. 9.4 fl (6.2-12.0); Monocyte# 0.83 X10^3/uL; Monocyte% 8.5 % (0-10); NRBC Flagged by Analyzer 0 % (0-5); Neutrophil # 7.53 X10^3/uL (2.7-7.7); Neutrophil % 77.1 % (47-70); Platelet Count 293 K/mm3 (150-450); RBC Distribution Width CV 13.6 % (11.6-14.6); RBC Distribution Width SD 47.4 fl (35.1-43.9); Red Blood Count 3.38 M/mm3 (4.2-5.4); White Blood Count 9.8 K/mm3 (4.4-11.0)
[2023-01-23] MEDS: Ondansetron 4 MG/2 ML Vial IV (03:53)
[2023-01-23] MEDS: 0.9% Normal Saline 1,000 ML 999 ML IV (03:53)
[2023-01-23] MEDS: Morphine 4 MG/ML Syringe IV (03:53)
[2023-01-23] MEDS: Acetaminophen 500 MG Tablet 1000 MG PO ×3 (03:54→21:01)
[2023-01-23 03:57] LABS: Prothrombin Time (Protime)PT. 31.5 SECONDS (11.7-14.9)
[2023-01-23 03:59] LABS: Partial Thromboplast Time 80.7 Seconds (24.1-36.2)
[2023-01-23 04:11] LABS: Anion Gap 5 (5-15); BUN 21 mg/dL (7-18); BUN/Creat Ratio 24.6 RATIO (10-20); Calcium,Total 8.4 mg/dL (8.5-10.1); Chloride 103 mmol/L (98-107); Creatinine, Serum 0.86 mg/dL (0.55-1.02); EST Glomerular Filtration Rate 71 mL/min (>60); Est Glom Filt Rate - Afr Amer 85 mL/min (>60); Glucose 258 mg/dL (74-106); Potassium 3.9 mmol/L (3.5-5.1); Sodium Level 135 mmol/L (136-145)
[2023-01-23 04:12] LABS: Lactic Acid 1.6 mmol/L (0.4-1.9)
[2023-01-23] MEDS: HYDROmorphone 1 MG/ML Syringe IV (04:57)
[2023-01-23 05:33] LABS: AST(SGOT) 9 U/L (15-37); Alanine Aminotransfer ALT/SGPT 15 U/L (13-56); Albumin, Serum 2.4 g/dL (3.2-5.0); Alkaline Phosphatase 67 U/L (45-117); Bilirubin, Direct 0.12 mg/dL (0.00-0.30); Globulin 4.4 g/dL (2.2-4.2); Protein, Total 6.8 g/dL (6.4-8.2)
[2023-01-23] MEDS: Ketorolac 15 MG/ML Vial IV (05:43)
--- NOTE | 2023-01-23 07:35 | EDS_ITS ---
HPI History of Present Illness Chief Complaint: Shortness of Breath Informant: patient and spouse/S.O. Narrative Narrative: Patient is a 67-year-old female with past medical history of DVT and PE currently on Coumadin. She states on she began developing right-sided back pain/rib pain that was worse with inspiration. She states that she has been taking her blood thinner as directed and that there was no trauma or excessive activity. She states that she then developed a fever and with concern that she had developed a repeat blood clot came to the hospital on Sunday. She had a CT scan at that time which showed no PE but pneumonia and she was st arted on doxycycline and discharged home. Patient states she has had persistent low-grade fever with persistent and worsening right-sided chest/back pain that is worse with inspiration and increased shortness of breath and therefore returns for repeat evaluation. Patient denies any history of lung disorder or need for supplemental oxygen [facility] Medical History Anxiety and depression Diabetes Gastric ulcer GERD (gastroesophageal reflux disease) Glaucoma High cholesterol History of DVT (deep vein thrombosis) History of kidney stones History of pneumonia History of UTI HTN (hypertension) Neuropathy Home Medications cyanocobalamin (vitamin B-12) 500 mcg tablet 500 mcg PO DAILY@0800 SUPPLEMENT 02/11/14 [History Last Taken 01/22/23] ferrous sulfate 325 mg (65 mg iron) tablet 325 mg PO DAILY@0800 SUPPLEMENT 02/11/14 [History Last Taken 01/22/23] multivitamin with folic acid 400 mcg tablet 1 tab PO DAILY SUPPLEMENT 02/11/14 [History Last Taken 01/22/23] omeprazole 20 mg capsule,delayed release 20 mg PO BID REFLUX 02/11/14 [History Last Taken 01/22/23] trazodone 50 mg tablet 50 mg PO QHS SLEEP 02/11/14 [History Last Taken 01/22/23] venlafaxine 75 mg tablet 75 mg PO BID DEPRESSION 02/11/14 [History Last Taken 01/22/23] biotin 10,000 mcg capsule 10,000 mcg PO DAILY HAIR LOSS 05/30/21 [History Last Taken 01/22/23] buspirone 5 mg tablet 5 mg PO TID PRN anxiety 05/30/21 [History Last Taken 01/22/23] calcium carbonate 600 mg-vitamin D3 12.5 mcg (500 unit) capsule (Calcium 600 with Vitamin D3) 1 cap PO BID 05/30/21 [History Last Taken 01/22/23] gabapentin 300 mg capsule 300 mg PO BID 05/30/21 [History Last Taken 01/22/23] metformin 1,000 mg tablet 1,000 mg PO DAILY 05/30/21 [History Last Taken 01/22/23] warfarin 10 mg tablet 10 mg PO SUTUTHFRSA 05/30/21 [History Last Taken 01/21/23] baclofen 10 mg tablet 10 mg PO TID PRN restless legs #30 tabs 10/30/22 [Rx Last Taken Unknown] ropinirole 2 mg tablet 2 mg PO QHS #90 tabs 10/30/22 [Rx Last Taken 01/22/23] meclizine 25 mg tablet 25 mg PO BID PRN dizziness #60 tabs 12/26/22 [Rx Last Taken 01/22/23] doxycycline monohydrate 100 mg capsule 100 mg PO BID #20 CAPSULES 01/20/23 [Rx Last Taken 01/22/23] lisinopril 20 mg-hydrochlorothiazide 25 mg tablet 1 tab PO DAILY BP 01/23/23 [History Last Taken 01/22/23] warfarin 5 mg tablet (Jantoven) 7.5 mg PO MOWE 01/23/23 [History Last Taken 01/22/23] Allergy/AdvReac Type Severity Reaction Status Date / Time amoxicillin Allergy Mild rash Verified 01/23/23 03:07 atorvastatin AdvReac Mild myalgiias Verified 01/23/23 03:07 levofloxacin [From Levaquin] AdvReac Unknown Nausea Verified 01/23/23 03:07 Family History Mother Heart disease Hypertension Father Heart disease CVA (cerebral vascular accident) Brother Cancer Surgical History History of carpal tunnel release of both wrists History of colonoscopy (~2014) History of dilation and curettage History of [place]-en-Y gastric bypass History of umbilical hernia repair Status post biopsy of thyroid gland (~08/2019) Status post panniculectomy Social History household members: spouse housing: house Smoking Status: Former smoker Tobacco: How many years used: 40 Electronic Cigarette Use: not used how long ago did patient quit smoking: about a year and half ago second hand exposure: No alcohol intake: never substance use type: does not use what type of physical activity do you participate in: none do you feel safe at home: Yes ROS ROS ED Constitutional Constitutional ED: Reports fever(s); Denies chills ENT ENT ED: Denies sore throat Cardiovascular Cardiovascular: Reports chest pain; Denies palpitations or racing heartbeat Respiratory/Chest Respiratory/Chest: Reports cough and dyspnea Gastrointestinal Gastrointestinal: Denies abdominal pain, diarrhea, nausea or vomiting Genitourinary Genitourinary ED: Denies dysuria Musculoskeletal Musculoskeletal: Reports back pain; Denies myalgias Integumentary Denies rash Neurologic Neurologic: Denies headache(s) Hematologic/Lymphatic Hematologic/Lymphatic: Reports easy bleeding and easy bruising EXAM Physical Exam Const Vital Signs: 01/23/23 03:03 01/23/23 03:03 01/23/23 03:06 Temperature 100.5 F H 100.5 F H Temperature Source Oral Temporal Pulse Rate 95 93 Respiratory Rate 20 H 20 H Respiratory Effort Short of Breath Blood Pressure 171/70 H 171/70 H Blood Pressure Mean 103 103 Pulse Ox 92 91 Oxygen Delivery Method 01/23/23 05:48 Temperature Temperature Source Pulse Rate 81 Respiratory Rate 15 Respiratory Effort Blood Pressure 152/57 H Blood Pressure Mean 88 Pulse Ox 88 Oxygen Delivery Method Room Air Positive well nourished, well developed and obese General Appearance ED: well developed Nutritional Appearance: obese HEENT Reports moist mucous membranes HEENT Narrative: No tongue or lip swelling no oral lesions no airway edema or compromise Eyes PERRL and EOMs intact bilaterally General Eye ED: Negative for scleral icterus Neck supple and no JVD Chest Wall palpation of chest normal Resp Resp Narrative: Patient is tachypneic with shallow inspirations and splinting. Breath sounds a re diminished on the right with faint crackles. No nasal flaring retractions or accessory muscle use noted however. Cardio regular rate and regular rhythm Rate: other Other Details: Radial pulses are plus 2 out of 4 bilaterally are equal and symmetric GI normal to inspection, nondistended, normoactive bowel sounds, non-tender, non- distended and no masses GI Narrative: No voluntary guarding or rigidity no pulsatile mass or fluid wave Auscultation: normoactive bowel sounds Palpation: soft Extremity normal to inspection Extremity Narrative: Negative Homans' sign bilaterally Neuro oriented x3 and CN's II-XII intact bilaterally Sensorium / Orientation: alert Psych mental status grossly normal Skin no rashes or lesions noted General Skin Exam: Negative for jaundice MDM MDM MDM Narrative Medical decision making narrative: Patient presented to the ER with low-grade fever and tachypnea and a pulse ox of 88 to 90% on room air. She had previous history of DVT and PE and is currently on Coumadin but there was concern that she had a missed PE or pulmonary infarction from the previous day or potentially pneumothorax or worsening pneumonia or pleural effusion. A basic work-up was obtained and shows normal white count and lactic acid value. Her INR is therapeutic at 3. CTA revealed no PE or infarction but showed worsening pleural effusion and potential pneumonia. There is a concern this could be viral in nature based on the groundglass appearance so a rapid influenza and COVID test were obtained which were negative. As the patient desats to 88% at rest and does not have oxygen at home I do not feel she is safe to return home especially with her persistent pain and worsening symptoms and just a few days. Therefore medicine was contacted and after discussing the case they do agree to accept the patient at this time. They agree that symptoms could be viral in nature but as patient has a possibility of failing outpatient antibiotic therapy they recommend she be given Rocephin and Zithromax in the ER. This plan of care was discussed with the patient and she is agreeable to it History & Record Review Discussion w/independent historian: Patient Lab Data Labs: Laboratory Results - last 24 hr 01/23/23 03:40 WBC 9.8 RBC 3.38 L Hgb 10.4 L Hct 32.1 L MCV 95.0 MCH 30.8 MCHC 32.4 RDW Std Deviation 47.4 H RDW Coeff of Les 13.6 Plt Count 293 MPV 9.4 Immature Gran % (Auto) 0.700 Neut % (Auto) 77.1 H Lymph % (Auto) 11.3 L [place] % (Auto) 8.5 Eos % (Auto) 1.9 Baso % (Auto) 0.5 Absolute Neuts (auto) 7.5 Absolute Lymphs (auto) 1.10 Nucleated RBC % 0 PT 31.5 H INR 3.0 APTT 80.7 H Sodium 135 L Potassium 3.9 Chloride 103 Carbon Dioxide 27.0 Anion Gap 5 BUN 21 H Creatinine 0.86 Estim Creat Clear Calc 57.90 Est GFR (MDRD) Af Amer 85 Est GFR (MDRD) Non-Af 71 BUN/Creatinine Ratio 24.6 H Glucose 258 H Lactic Acid 1.6 Calcium 8.4 L Total Bilirubin 0.20 Direct Bilirubin 0.12 AST 9 L ALT 15 Alkaline Phosphatase 67 Total Protein 6.8 Albumin 2.4 L Globulin 4.4 H Radiography Diagnostic Testing: Clinical Impression(s) from Imaging Studies Chest CTA 01/23/23 03:29 IMPRESSION: Negative for PE. Enlarging right pleural effusion with increasing right lower lobe infiltrate due to compressive atelectasis and possible pneumonia. Groundglass opacities within the left upper lobe, primarily central, most likely due to developing pneumonia, possibly Covid pneumonia. Interval development of mild right hilar adenopathy. Electronically Signed: Manuel Bassett MD at 5:20 EDT , Discharge Plan Triage Chief Complaint: Shortness of Breath ED Provider: Max Lara Dx/Rx/DC Orders Clinical Impression: Pleural effusion, Hypoxia, Pneumonia Prescriptions: No Action buspirone 5 mg tablet 5 mg PO TID PRN (Reason: anxiety) warfarin 10 mg tablet 10 mg PO SUTUTHFRSA metformin 1,000 mg tablet 1,000 mg PO DAILY calcium carbonate-vitamin D3 [Calcium 600 with Vitamin D3] 600 mg(1,500mg) - 500 unit capsule 1 cap PO BID gabapentin 300 mg capsule 300 mg PO BID Patient Comments: TAKE 1 CAPSULE TWICE DAILY FOR 28 DAYS ropinirole 2 mg tablet 2 mg PO QHS Qty: 90 1RF baclofen 10 mg tablet 10 mg PO TID PRN (Reason: restless legs) Qty: 30 5RF venlafaxine 75 MG tablet 75 mg PO BID Patient Comments: ANXIETY/DEPRESSION trazodone 50 MG tablet 50 mg PO QHS Patient Comments: INSOMINIA cyanocobalamin (vitamin B-12) 500 MCG tablet 500 mcg PO DAILY@0800 Patient Comments: SUPPLEMENT ferrous sulfate 325 MG tablet 325 mg PO DAILY@0800 Patient Comments: SUPPLEMENT omeprazole 20 MG capsule 20 mg PO BID Patient Comments: ACID REFLUX multivitamin with folic acid 1 TABLET tablet 1 tab PO DAILY Patient Comments: SUPPLEMENT biotin 10,000 mcg capsule 10,000 mcg PO DAILY Patient Comments: SUPPLEMENT doxycycline monohydrate 100 mg capsule 100 mg PO BID Qty: 20 0RF Patient Comments: 7 DAYS REMAINING IN 10 DAY COURSE PER PT warfarin [Jantoven] 5 mg tablet 7.5 mg PO MOWE lisinopril-hydrochlorothiazide 20-25 mg tablet 1 tab PO DAILY meclizine 25 mg tablet 25 mg PO BID PRN (Reason: dizziness) Qty: 60 3RF Primary Care Provider: Deysi Castro Referrals: Deysi Castro, [Primary Care Provider] - Disposition Disposition: Acute Care Hospital [facility]
[2023-01-23] MEDS: Ceftriaxone 1 GM/50 ML BAG IV (08:38)
--- NOTE | 2023-01-23 10:58 | PCM.HP.STD ---
HPI - General General Date of Admission: 01/23/23 HPI Narrative ART BLUE, is a 67 F who presents to the hospital with some back pain. She was recently in the hospital and got a prescription for doxycycline secondary to what appears to be community-acquired pneumonia. She is taken about 3 days of this antibiotic and continues to have some back pain so she represented to the hospital. She did not have any hypoxia as the lowest her oxygen saturations were 88% while on room air. We will broaden her antibiotics given that doxycycline alone is not often successful. Of note she also had an interval enlargement of a right pleural effusion with possible loculation. [facility] Medical History Anxiety and depression Diabetes Gastric ulcer GERD (gastroesophageal reflux disease) Glaucoma High cholesterol History of DVT (deep vein thrombosis) History of kidney stones History of pneumonia History of UTI HTN (hypertension) Neuropathy Home Medications cyanocobalamin (vitamin B-12) 500 mcg tablet 500 mcg PO DAILY@0800 SUPPLEMENT 02/11/14 [History Last Taken 01/22/23] ferrous sulfate 325 mg (65 mg iron) tablet 325 mg PO BID SUPPLEMENT 02/11/14 [History Last Taken 01/22/23] multivitamin with folic acid 400 mcg tablet 1 tab PO DAILY SUPPLEMENT 02/11/14 [History Last Taken 01/22/23] omeprazole 20 mg capsule,delayed release 20 mg PO BID REFLUX 02/11/14 [History Last Taken 01/22/23] trazodone 50 mg tablet 50 mg PO QHS SLEEP 02/11/14 [History Last Taken 01/22/23] venlafaxine 75 mg tablet 75 mg PO BID DEPRESSION 02/11/14 [History Last Taken 01/22/23] biotin 10,000 mcg capsule 10,000 mcg PO DAILY HAIR LOSS 05/30/21 [History Last Taken 01/22/23] buspirone 5 mg tablet 5 mg PO TID PRN anxiety 05/30/21 [History Last Taken 01/22/23] calcium carbonate 600 mg-vitamin D3 12.5 mcg (500 unit) capsule (Calcium 600 with Vitamin D3) 1 cap PO BID 05/30/21 [History Last Taken 01/22/23] gabapentin 300 mg capsule 300 mg PO BID 05/30/21 [History Last Taken 01/22/23] metformin 1,000 mg tablet 500 mg PO BID 05/30/21 [History Last Taken 01/22/23] warfarin 10 mg tablet 10 mg PO SUTUTHFRSA 05/30/21 [History Last Taken 01/21/23] baclofen 10 mg tablet 10 mg PO TID PRN restless legs #30 tabs 10/30/22 [Rx Last Taken Unknown] ropinirole 2 mg tablet 2 mg PO QHS #90 tabs 10/30/22 [Rx Last Taken 01/22/23] meclizine 25 mg tablet 25 mg PO BID PRN dizziness #60 tabs 12/26/22 [Rx Last Taken 01/22/23] doxycycline monohydrate 100 mg capsule 100 mg PO BID #20 CAPSULES 01/20/23 [Rx Last Taken 01/22/23] lisinopril 20 mg-hydrochlorothiazide 25 mg tablet 1 tab PO DAILY BP 01/23/23 [History Last Taken 01/22/23] warfarin 5 mg tablet (Jantoven) 7.5 mg PO MOWE 01/23/23 [History Last Taken 01/22/23] Allergy/AdvReac Type Severity Reaction Status Date / Time amoxicillin Allergy Mild rash Verified 01/23/23 03:07 atorvastatin AdvReac Mild myalgiias Verified 01/23/23 03:07 levofloxacin [From Levaquin] AdvReac Unknown Nausea Verified 01/23/23 03:07 Family History Mother Heart disease Hypertension Father Heart disease CVA (cerebral vascular accident) Brother Cancer Surgical History History of carpal tunnel release of both wrists History of colonoscopy (~2014) History of dilation and curettage History of [place]-en-Y gastric bypass History of umbilical hernia repair Status post biopsy of thyroid gland (~08/2019) Status post panniculectomy Social History household members: spouse housing: house Smoking Status: Former smoker Tobacco: How many years used: 40 Electronic Cigarette Use: not used how long ago did patient quit smoking: about a year and half ago second hand exposure: No alcohol intake: never substance use type: does not use what type of physical activity do you participate in: none do you feel safe at home: Yes ROS Constitutional Constitutional: Denies chills, fatigue, fever(s) or malaise Eyes Eyes: Denies blurry vision ENT HEENT: Denies headache(s) or nasal discharge Cardiovascular Cardiovascular: Denies chest pain, dyspnea on exertion or syncope Respiratory/Chest Respiratory/Chest: Reports cough and shortness of breath at rest; Denies shortness of breath with exertion Gastrointestinal Gastrointestinal: Denies constipation, diarrhea, nausea or vomiting Genitourinary Genitourinary: Denies dysuria Neurologic Neurologic: Denies focal weakness, numbness or tremor(s) Psychiatric Psychiatric: Denies anxiety or depression Vital Signs Vital Signs Vital Signs: 01/23/23 03:03 01/23/23 03:03 01/23/23 03:06 Temperature 100.5 F H 100.5 F H Temperature Source Oral Temporal Pulse Rate 95 93 Respiratory Rate 20 H 20 H Respiratory Effort Short of Breath Respiratory Depth Respiratory Pattern Blood Pressure 171/70 H 171/70 H Blood Pressure Mean 103 103 Pulse Ox 92 91 Oxygen Delivery Method Oxygen Flow Rate (L/min) 01/23/23 05:48 01/23/23 08:39 01/23/23 09:35 Temperature 98 F Temperature Source Oral Pulse Rate 81 84 Respiratory Rate 15 17 Respiratory Effort Normal Non-Labored Respiratory Depth Normal Respiratory Pattern Normal Blood Pressure 152/57 H 138/79 H Blood Pressure Mean 88 98 Pulse Ox 88 95 98 Oxygen Delivery Method Room Air Nasal Cannula Oxygen Flow Rate (L/min) 2 Weight Weight: 246 lb 14.684 oz Body Mass Index (BMI) 41.1 Physical Exam Narrative General: Alert, Oriented x3, Cooperative, No apparent distress HEENT: Atraumatic, PERRLA, EOMI, Normocephalic Oral: Moist Mucosa Neck: Supple, No JVD Lungs: Diminished, Normal air movement, No rhonchi, No wheeze, No rales Cardiovascular: Regular rate, Regular Rhythm, Normal S1, Normal S2, No murmurs Abdomen: Soft, Non Tender, Non-Distended, No Hepato-splenomegaly Extremities: No edema, Capillary Refill Less than 3 Seconds Skin: No rashes, No breakdown Musculoskeletal: No Tenderness to Palpation of Joints or Extremities Neurological: Cranial nerves II-XII grossly intact, Motor Exam 5/5 strength throughout, Sensory exam intact to light touch and pain Psych/Mental Status: Normal Affect, Appropriate Results Lab / Micro Data 01/23/23 03:40 01/23/23 03:40 Labs: Laboratory Results - last 24 hr 01/23/23 03:40: WBC 9.8, RBC 3.38 L, Hgb 10.4 L, Hct 32.1 L, MCV 95.0, MCH 30.8, MCHC 32.4, RDW Std Deviation 47.4 H, RDW Coeff of Les 13.6, Plt Count 293, MPV 9.4, Immature Gran % (Auto) 0.700, Neut % (Auto) 77.1 H, Lymph % (Auto) 11.3 L, [place] % (Auto) 8.5, Eos % (Auto) 1.9, Baso % (Auto) 0.5, Absolute Neuts (auto) 7.5, Absolute Lymphs (auto) 1.10, Nucleated RBC % 0, PT 31.5 H, INR 3.0, APTT 80.7 H, Sodium 135 L, Potassium 3.9, Chloride 103, Carbon Dioxide 27.0, Anion Gap 5, BUN 21 H, Creatinine 0.86, Estim Creat Clear Calc 57.90, Est GFR (MDRD) Af Amer 85, Est GFR (MDRD) Non-Af 71, BUN/Creatinine Ratio 24.6 H, Glucose 258 H, Lactic Acid 1.6, Calcium 8.4 L, Total Bilirubin 0.20, Direct Bilirubin 0.12, AST 9 L, ALT 15, Alkaline Phosphatase 67, Total Protein 6.8, Albumin 2.4 L, Globulin 4.4 H Micro: Microbiology 01/23/23 05:45 Nasal Secretion SARS-CoV-2 & FLU Antigen (Rapid) - Final Radiology Impression Chest CTA 01/23/23 03:29 IMPRESSION: Negative for PE. Enlarging right pleural effusion with increasing right lower lobe infiltrate due to compressive atelectasis and possible pneumonia. Groundglass opacities within the left upper lobe, primarily central, most likely due to developing pneumonia, possibly Covid pneumonia. Interval development of mild right hilar adenopathy. Electronically Signed: Manuel Bassett MD at 5:20 EDT , Assessment & Plan Assessment/Plan (1) Pneumonia: PLAN: Plan 1. Community-acquired pneumonia with pleural effusion possible loculation ? We will schedule for thoracentesis and give her vitamin K since her INR is 3.0 with a recheck in the morning for possible procedure ? We will place her on cefepime and azithromycin ? She has had 2 CTAs in the last couple of days we will monitor renal function, both CTAs are negative for PEs given that she is therapeutic on her INR 2. History of DVT -She has an IVC filter in place can continue with Coumadin 3. HTN -Blood pressures are stable -Continue with her lisinopril and hydrochlorothiazide 4. Iron deficiency anemia -Hemoglobin is stable at 10.4 -Continue with home iron 5. GERD -Stable -Continue with home PPI 6. Depression/anxiety -Stable -Continue with Effexor and trazodone, as well as BuSpar 7. DM2 ? We will hold metformin ? Sliding scale insulin ? Accu-Cheks ACHS ? We will monitor and make adjustments as necessary DVT: Therapeutic INR 75 minutes was spent on direct patient care as well as chart review and collaboration with colleagues Charges/Coding Visit Charges Inpatient E&M: 00029 Init Hosp L3
[2023-01-23] MEDS: Venlafaxine HCl 75 MG Tablet PO ×2 (11:44→21:01)
[2023-01-23] MEDS: hydroCHLOROthiazide 25 MG Tablet PO (11:44)
[2023-01-23] MEDS: Calcium Carb/Vitamin D 1 TABLET Tablet PO ×2 (11:44→21:00)
[2023-01-23] MEDS: Pantoprazole Sodium 20 MG Tablet PO ×2 (11:44→21:01)
[2023-01-23 11:45] LABS: Bedside Glucose 282 mg/dL (74-106)
[2023-01-23] MEDS: Lisinopril 20 MG Tablet PO (11:45)
[2023-01-23] MEDS: Insulin Lispro 100 UNIT/ML INSULN.PEN SC ×2 (11:48→21:01)
[2023-01-23] MEDS: Gabapentin 300 MG Capsule PO ×2 (11:48→18:14)
--- NOTE | 2023-01-23 12:02 | US_ITS ---
PROCEDURE: ULTRASOUND GUIDED THORACENTESIS. DATE: January 24, 2023. INDICATION: Female, 67 years old. Right pleural effusion PHYSICIAN: Karlo Portillo M.D. PROCEDURE: The risks, benefits, and alternatives to the procedure were explained to the patient. The specific risks of bleeding, infection, and pneumothorax requiring chest tube insertion were discussed and accepted. Written informed consent was obtained. Ultrasonographic evaluation of the right lower pleural space was carried out. An adequate pocket was identified. The patient was placed in the sitting, upright position. The overlying skin was prepped and draped in sterile fashion. 1% lidocaine was administered subcutaneously for local anesthesia. Under ultrasound guidance, a 5 Nepali thoracentesis needle/catheter system was advanced into the right posterior lower pleural fluid collection. Approximately 240 mL of sheyla-colored fluid was drained. The catheter was removed, and a sterile dressing was applied. A specimen was collected and sent to the laboratory for analysis, as requested by the referring clinician. The patient tolerated the procedure well. A chest x-ray was ordered. US/Thoracentesis W US IMPRESSION: Ultrasound-guided right thoracentesis. Electronically Signed: Karlo Portillo MD at 14:37 EDT ,
[2023-01-23] MEDS: Phytonadione (Vit K1) 5 MG TABLET PO (12:59)
[2023-01-23 17:33] LABS: Bedside Glucose 101 mg/dL (74-106)
[2023-01-23] MEDS: traZODone 50 MG Tablet PO (21:00)
[2023-01-23] MEDS: Pramipexole Di-HCl 1 MG Tablet PO (21:01)
[2023-01-24] VITALS (9 sets, daily range): BP systolic 123–152; BP diastolic 55–74; PULSE 74–94; RESP 18–22; TEMP 36.3–37.3; O2SAT 93–96
--- NOTE | 2023-01-24 | FLU_PTH ---
PATIENT: ART BLUE LOC: MS3 U#:[id number] AGE/SX: 67/F ROOM: AR318 RE01/23/[address]: Dr. Neymar Masters DO : [id number] BED: 1 DIS: 01/25/2023 SPEC #: [id number] RECD: 01/24/23 14:01 STATUS: WINTER MITCHELL #: [id number] CLAUDIO: 01/24/23 00:[address]: Neymar Masters DEPT: CYTOLOGY RECD BY: Jarad Gonzalez ENTERED: 01/25/23 08:11 SP TYPE: Fluid OTHR DR: DO Dr. Kenney Cerrato MD Tissues: THORACIC FLUID Procedures: Special Stain Group II Surgery Specimen Level IV Cytospin Fluid HEADER OPERATION: Ultrasound-guided thoracentesis right PRE-OP DIAGNOSIS: Pleural effusion TISSUE SUBMITTED: Thoracentesis fluid for cytology DIAGNOSIS CYTOLOGY Thoracentesis fluid for cytology (cytospin and cell block): Negative for malignant cells. Acute inflammation. See comment. KOSTA:farzaneh 01/26/2023 COMMENT Correlation with clinical findings and appropriate follow up are necessary. CYTOLOGY STUDY Slides are reviewed. CYTOLOGY GROSS Received is 80 ml of hazy yellow fluid labeled with the patient's name and and designated per the requisition as thoracentesis. Submitted for cytology preparation including cell block. / farzaneh 01/25/2023 TC:2 CPT: 35177, 02094
[2023-01-24 01:55] LABS: Bedside Glucose 161 mg/dL (74-106)
[2023-01-24 05:02] LABS: Absolute Lymphocyte Count 1.54 X10^3/uL (0.83-4.51); Absolute Neutrophil Count 7.1 X10^3/uL (2.0-7.7); Basophil# 0.06 X10^3/uL; Basophil% 0.6 % (0-1); Eosinophil# 0.33 X10^3/uL; Eosinophils% 3.3 % (0-5); Hematocrit 32.7 % (37-47); Hemoglobin 10.4 g/dL (12.0-15.0); Lymphocyte # 1.54 X10^3/ul (0.83-4.51); Lymphocyte % 15.5 % (19-41); Mean Corp Hgb Conc 31.8 g/dL (32-36); Mean Corpuscular Hgb 30.5 pg (27.0-32.0); Mean Corpuscular Volume 95.9 fL (81-99); Mean Platelet Vol. 9.2 fl (6.2-12.0); Monocyte# 0.88 X10^3/uL; Monocyte% 8.9 % (0-10); NRBC Flagged by Analyzer 0 % (0-5); Neutrophil # 7.05 X10^3/uL (2.7-7.7); Neutrophil % 71.1 % (47-70); Platelet Count 328 K/mm3 (150-450); RBC Distribution Width CV 13.6 % (11.6-14.6); RBC Distribution Width SD 48.3 fl (35.1-43.9); Red Blood Count 3.41 M/mm3 (4.2-5.4); White Blood Count 9.9 K/mm3 (4.4-11.0)
[2023-01-24 05:20] LABS: Prothrombin Time (Protime)PT. 22.9 SECONDS (11.7-14.9)
[2023-01-24] MEDS: Acetaminophen 500 MG Tablet 1000 MG PO ×3 (05:27→22:48)
[2023-01-24 05:47] LABS: Anion Gap 2 (5-15); BUN 14 mg/dL (7-18); BUN/Creat Ratio 20.7 RATIO (10-20); Calcium,Total 8.3 mg/dL (8.5-10.1); Chloride 107 mmol/L (98-107); Creatinine, Serum 0.68 mg/dL (0.55-1.02); EST Glomerular Filtration Rate 93 mL/min (>60); Est Glom Filt Rate - Afr Amer 112 mL/min (>60); Glucose 144 mg/dL (74-106); LDH 159 U/L (84-246); Potassium 4.3 mmol/L (3.5-5.1); Sodium Level 138 mmol/L (136-145)
[2023-01-24] MEDS: Insulin Lispro 100 UNIT/ML INSULN.PEN SC ×2 (06:36→11:38)
[2023-01-24 06:49] LABS: Bedside Glucose 150 mg/dL (74-106)
--- NOTE | 2023-01-24 09:06 | PN.HOSP_ITS ---
Subjective Subjective Doing well, still having chest pain though the Tylenol has helped some Objective Data Objective Data Vital Signs: Vital Signs Temp Pulse Resp BP Pulse Ox O2 Del Method O2 Flow Rate 98.8 F 88 20 H 149/74 H 94 Nasal Cannula 2 01/24/23 08:03 01/24/23 08:03 01/24/23 08:03 01/24/23 08:03 01/24/23 08:03 01/24/23 08:03 01/24/23 08:03 Oxygen Flow Rate (L/min) 2 Oxygen Delivery Method Nasal Cannula Weight: 246 lb 14.684 oz Body Mass Index (BMI) 41.1 Intake & Output: Intake and Output for Last 24 Hours 01/23/23 01/24/23 01/25/23 03:59 03:59 03:59 Intake Total 2385 / 2385 60 / 60 Balance 2385 / 2385 60 / 60 Lab / Micro Data 01/24/23 04:40 01/24/23 04:40 Labs: Laboratory Results - last 24 hr 01/23/23 11:25: POC Glucose 282 H 01/23/23 17:10: POC Glucose 101 01/23/23 20:59: POC Glucose 161 H 01/24/23 04:40: WBC 9.9, RBC 3.41 L, Hgb 10.4 L, Hct 32.7 L, MCV 95.9, MCH 30.5, MCHC 31.8 L, RDW Std Deviation 48.3 H, RDW Coeff of Les 13.6, Plt Count 328, MPV 9.2, Immature Gran % (Auto) 0.600, Neut % (Auto) 71.1 H, Lymph % (Auto) 15.5 L, [place] % (Auto) 8.9, Eos % (Auto) 3.3, Baso % (Auto) 0.6, Absolute Neuts (auto) 7.1, Absolute Lymphs (auto) 1.54, Nucleated RBC % 0, PT 22.9 H, INR 2.0, Sodium 138, Potassium 4.3, Chloride 107, Carbon Dioxide 29.0, Anion Gap 2 L, BUN 14, Creatinine 0.68, Estim Creat Clear Calc 49.80, Est GFR (MDRD) Af Amer 112, Est GFR (MDRD) Non-Af 93, BUN/Creatinine Ratio 20.7 H, Glucose 144 H, Calcium 8.3 L, Lactate Dehydrogenase 159 01/24/23 06:30: POC Glucose 150 H Micro: Microbiology 01/23/23 05:45 Nasal Secretion SARS-CoV-2 & FLU Antigen (Rapid) - Final Physical Exam Narrative General: Alert, Oriented x3, Cooperative, No apparent distress HEENT: Atraumatic, PERRLA, EOMI, Normocephalic Oral: Moist Mucosa Neck: Supple, No JVD Lungs: Diminished, Normal air movement, No rhonchi, No wheeze, No rales Cardiovascular: Regular rate, Regular Rhythm, Normal S1, Normal S2, No murmurs Abdomen: Soft, Non Tender, Non-Distended, No Hepato-splenomegaly Extremities: No edema, Capillary Refill Less than 3 Seconds Skin: No rashes, No breakdown Musculoskeletal: No Tenderness to Palpation of Joints or Extremities Neurological: Cranial nerves II-XII grossly intact, Motor Exam 5/5 strength throughout, Sensory exam intact to light touch and pain Psych/Mental Status: Normal Affect, Appropriate Assessment & Plan Assessment/Plan (1) Pneumonia: PLAN: Plan 1. Community-acquired pneumonia with pleural effusion possible loculation ?Plan for thoracentesis today, INR is 2.0 after the 5 of vitamin K yesterday ? We will place her on cefepime and azithromycin ? She has had 2 CTAs in the last couple of days we will monitor renal function, both CTAs are negative for PEs given that she is therapeutic on her INR 2. History of DVT -She has an IVC filter in place can continue with Coumadin after thoracentesis 3. HTN -Blood pressures are stable -Continue with her lisinopril and hydrochlorothiazide 4. Iron deficiency anemia -Hemoglobin is stable at 10.4 -Continue with home iron 5. GERD -Stable -Continue with home PPI 6. Depression/anxiety -Stable -Continue with Effexor and trazodone, as well as BuSpar 7. DM2 ? We will hold metformin ? Sliding scale insulin ? Accu-Cheks ACHS ? We will monitor and make adjustments as necessary DVT: Therapeutic INR Charges/Coding Visit Charges Inpatient E&M: 24256 Subs Hosp L2
[2023-01-24] MEDS: Gabapentin 300 MG Capsule PO ×2 (09:22→18:23)
[2023-01-24] MEDS: Cyanocobalamin 500 MCG Tablet PO (09:22)
[2023-01-24] MEDS: Calcium Carb/Vitamin D 1 TABLET Tablet PO ×2 (09:23→22:48)
[2023-01-24] MEDS: hydroCHLOROthiazide 25 MG Tablet PO (09:23)
[2023-01-24] MEDS: Ferrous Sulfate 325 MG Tablet PO (09:23)
[2023-01-24] MEDS: Pantoprazole Sodium 20 MG Tablet PO ×2 (09:23→22:48)
[2023-01-24] MEDS: Venlafaxine HCl 75 MG Tablet PO ×2 (09:23→22:48)
[2023-01-24] MEDS: Lisinopril 20 MG Tablet PO (09:23)
[2023-01-24 11:54] LABS: Bedside Glucose 211 mg/dL (74-106)
--- NOTE | 2023-01-24 13:30 | RAD_ITS ---
STUDY: X-RAY CHEST REASON FOR EXAM: Female, 67 years old. Pneumothorax TECHNIQUE: A PA inspiration expiration views. COMPARISON: Comparison is made with prior chest radiograph dated November 03, 2021. FINDINGS: The patient is status post right thoracentesis. There is no evidence of pneumothorax. Pleural-parenchymal changes are seen at the right lung base. RAD/Chest Insp/Exp 2 View IMPRESSION: Status post right thoracentesis. No evidence of pneumothorax. Residual pleural parenchymal changes are seen at the right lung base. Electronically Signed: Karlo Portillo MD at 14:36 EDT ,
[2023-01-24] MEDS: Lidocaine 2% (20 ml mdv) 20 ML Vial INFILT (13:42)
--- NOTE | 2023-01-24 15:08 | CASEMGMT ---
GURVINDER BOYER Assessment: Face to Face with pt for initial transition planning/care coordination assessment. RN ROSALIND introduced self and role at [facility], pt voices understanding and consents to assessment. Pt is A/O x4 and answers all questions appropriately at this time. Pt sitting up in bed with oxygen on in no distress. Care providers, pharmacy, and demographics verified/updated. Admitting Dx: pna PCP:Matthew Specialists:Grady, neuro; [place]connor, eyes [facility]erred [facility] Insurance: [facility] Prescription Benefit: yes LNOK: Neymar Natarajan, Living Arrangements: Pt lives with in a single story home with 1 step to enter. Pt reports they are looking to add a rail to the entrance. She states she is I in ADL' s and denies concerns at home. Transportation: Pt drives self and denies concerns with transportation. DME/HHC/SNF: Pt has a CPAP. She does not use AD but has canes and walkers available should she need them. Pt states she has a BGM but it is very old and she does not have supplies. Pt would like rx for new one. Pt denies hx of HHC or SNF stays. Pt states no concerns with going home at time of dc. Pt had been going to [facility] for water therapy and would like to get back to this. Pt states no further concerns/needs. CM to follow. Advised pt to ask CM if any further question/concerns/needs arise, voices understanding. Pt Goal: Home and return to [facility] Plan: Home, follow for oxygen, rx for BGM
[2023-01-24 15:55] LABS: LDH,Body Fluid 669 Units/l (Not Establ.)
[2023-01-24 15:59] LABS: Body Fluid Mononuclear WBC # 0.403 10^3/uL; Body Fluid Mononuclear WBC % 27.3 %; Body Fluid Polynuclear WBC # 1.073 10^3/uL; Body Fluid Polynuclear WBC % 72.7 %; Body Fluid Total Cells Counted 1.476 10^3/ul; Red Cell Count/Body Fluid 0.003 10^6/ul; White Blood Count/Body Fluid 1.476 10^3/uL
[2023-01-24 16:12] LABS: Appearance/Body Fluid SL CLDY; Auto B Fluid Analyzer BKGD Ct COUNTS W/IN LIMITS (W/IN LIMITS); Color/Body Fluid LT YEL; Source- Body Fluid THORACENTESIS
[2023-01-24 16:14] LABS: Body Fluid QC Type(s) BF3Q
[2023-01-24] MEDS: traMADol 50 MG Tablet PO (16:40)
[2023-01-24 17:23] LABS: Bedside Glucose 127 mg/dL (74-106)
[2023-01-24] MEDS: traZODone 50 MG Tablet PO (22:48)
[2023-01-24] MEDS: Pramipexole Di-HCl 1 MG Tablet PO (22:48)
[2023-01-25 00:17] LABS: Bedside Glucose 136 mg/dL (74-106)
[2023-01-25 02:30] VITALS: BP 120/61; PULSE 74; RESP 20; TEMP 36.6; O2SAT 95
[2023-01-25 02:35] VITALS: RESP 20
[2023-01-25] MEDS: traMADol 50 MG Tablet PO ×2 (03:49→11:02)
[2023-01-25] MEDS: Acetaminophen 500 MG Tablet 1000 MG PO ×2 (06:35→13:39)
[2023-01-25 06:57] LABS: Bedside Glucose 146 mg/dL (74-106)
[2023-01-25 07:21] LABS: Absolute Lymphocyte Count 1.55 X10^3/uL (0.83-4.51); Absolute Neutrophil Count 7.3 X10^3/uL (2.0-7.7); Basophil# 0.05 X10^3/uL; Basophil% 0.5 % (0-1); Eosinophil# 0.28 X10^3/uL; Eosinophils% 2.7 % (0-5); Hematocrit 33.8 % (37-47); Hemoglobin 10.9 g/dL (12.0-15.0); Lymphocyte # 1.55 X10^3/ul (0.83-4.51); Lymphocyte % 14.7 % (19-41); Mean Corp Hgb Conc 32.2 g/dL (32-36); Mean Corpuscular Hgb 30.7 pg (27.0-32.0); Mean Corpuscular Volume 95.2 fL (81-99); Mean Platelet Vol. 9.4 fl (6.2-12.0); Monocyte# 1.01 X10^3/uL; Monocyte% 9.6 % (0-10); NRBC Flagged by Analyzer 0 % (0-5); Neutrophil # 7.29 X10^3/uL (2.7-7.7); Neutrophil % 69.2 % (47-70); Platelet Count 359 K/mm3 (150-450); RBC Distribution Width CV 13.3 % (11.6-14.6); RBC Distribution Width SD 47.3 fl (35.1-43.9); Red Blood Count 3.55 M/mm3 (4.2-5.4); White Blood Count 10.5 K/mm3 (4.4-11.0)
[2023-01-25 07:33] LABS: International Normalized Ratio 1.4; Prothrombin Time (Protime)PT. 16.9 SECONDS (11.7-14.9)
[2023-01-25 07:56] LABS: Anion Gap 5 (5-15); BUN 13 mg/dL (7-18); BUN/Creat Ratio 18.3 RATIO (10-20); Calcium,Total 8.4 mg/dL (8.5-10.1); Chloride 104 mmol/L (98-107); Creatinine, Serum 0.71 mg/dL (0.55-1.02); EST Glomerular Filtration Rate 88 mL/min (>60); Est Glom Filt Rate - Afr Amer 106 mL/min (>60); Glucose 137 mg/dL (74-106); Sodium Level 139 mmol/L (136-145)
[2023-01-25] MEDS: Cyanocobalamin 500 MCG Tablet PO (08:26)
[2023-01-25] MEDS: Ferrous Sulfate 325 MG Tablet PO (08:26)
[2023-01-25] MEDS: Calcium Carb/Vitamin D 1 TABLET Tablet PO (08:26)
[2023-01-25 08:30] VITALS: BP 132/70; PULSE 70; RESP 18; TEMP 37; O2SAT 95
[2023-01-25] MEDS: Baclofen 10 MG Tablet PO (08:30)
[2023-01-25] MEDS: Gabapentin 300 MG Capsule PO (08:30)
[2023-01-25] MEDS: hydroCHLOROthiazide 25 MG Tablet PO (11:03)
[2023-01-25] MEDS: busPIRone 5 MG Tablet PO (11:03)
[2023-01-25] MEDS: Lisinopril 20 MG Tablet PO (11:04)
[2023-01-25] MEDS: Venlafaxine HCl 75 MG Tablet PO (11:04)
[2023-01-25] MEDS: Pantoprazole Sodium 20 MG Tablet PO (11:04)
[2023-01-25] MEDS: Insulin Lispro 100 UNIT/ML INSULN.PEN SC (11:39)
[2023-01-25 12:01] LABS: Bedside Glucose 177 mg/dL (74-106)
--- NOTE | 2023-01-25 13:03 | PCM.DC ---
Discharge Instructions Diet Discharge Diet: 1800 Calorie Control Diet Activity Discharge Activity: Return to Normal Activity Weight Bearing Status: Full weight bearing Follow Up Care Test Results: Test results from this visit will be discussed in further detail at your follow-up appointment, if applicable. Discharge Plan Admission Admit Date/Time: 01/23/23 08:02 Primary Reason for Your Visit: hypoxia, right oleural effusion Attending Provider: Neymar Masters Primary Care Provider: Deysi Castro Consulting Providers: Kenney Vizcarra Instructions Patient Instructions: SARIAH RN Thoracentesis Dc Additional Instructions / Restrictions: Oxygen at 3 L/min via nasal cannula while ambulating Oxygen not needed at rest Discharge Orders/Prescriptions Prescriptions: New tramadol 50 mg Tablet 50 mg PO Q6H PRN (Reason: Pain Score 6-10) Qty: 25 0RF cefdinir 300 mg capsule 300 mg PO BID Qty: 15 0RF Rx Instructions: start in the evening of 01/25/23 Continued buspirone 5 mg tablet 5 mg PO TID PRN (Reason: anxiety) warfarin 10 mg tablet 10 mg PO SUTUTHFRSA metformin 1,000 mg tablet 500 mg PO BID calcium carbonate-vitamin D3 [Calcium 600 with Vitamin D3] 600 mg(1,500mg) -500 unit capsule 1 cap PO BID gabapentin 300 mg capsule 300 mg PO BID Patient Comments: TAKE 1 CAPSULE TWICE DAILY FOR 28 DAYS ropinirole 2 mg tablet 2 mg PO QHS Qty: 90 1RF baclofen 10 mg tablet 10 mg PO TID PRN (Reason: restless legs) Qty: 30 5RF Hold Instructions: not taking venlafaxine 75 MG tablet 75 mg PO BID Patient Comments: ANXIETY/DEPRESSION trazodone 50 MG tablet 50 mg PO QHS Patient Comments: INSOMINIA cyanocobalamin (vitamin B-12) 500 MCG tablet 500 mcg PO DAILY@0800 Patient Comments: SUPPLEMENT ferrous sulfate 325 MG tablet 325 mg PO BID Patient Comments: SUPPLEMENT omeprazole 20 MG capsule 20 mg PO BID Patient Comments: ACID REFLUX multivitamin with folic acid 1 TABLET tablet 1 tab PO DAILY Patient Comments: SUPPLEMENT biotin 10,000 mcg capsule 10,000 mcg PO DAILY Patient Comments: SUPPLEMENT warfarin [Jantoven] 5 mg tablet 7.5 mg PO MOWE lisinopril-hydrochlorothiazide 20-25 mg tablet 1 tab PO DAILY meclizine 25 mg tablet 25 mg PO BID PRN (Reason: dizziness) Qty: 60 3RF Discontinued doxycycline monohydrate 100 mg capsule 100 mg PO BID Qty: 20 0RF Patient Comments: 7 DAYS REMAINING IN 10 DAY COURSE PER PT Referrals / Follow Up: Deysi Castro DO [Primary Care Provider] - In 1 Week Disposition Disposition (needs filled in before D/C Order can be placed): Home, Self Care
[2023-01-25 13:07] VITALS: O2SAT 84; O2SAT 90; O2SAT 94
--- NOTE | 2023-01-25 13:18 | DS.PCM_ITS ---
Providers Date of Admission: 01/23/23 Date of Discharge: 01/25/23 Primary Care Physician: Deysi Castro DO Reason For Visit: PNEUMONIA Diagnosis Discharge Diagnosis (1) Pneumonia: Status: Inactive Code(s): J18.9 - Pneumonia, unspecified organism Plan 1. 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 #10 morbid obesity Medications at Discharge Home Medications cyanocobalamin (vitamin B-12) 500 mcg tablet 500 mcg PO DAILY@0800 SUPPLEMENT 02/11/14 ferrous sulfate 325 mg (65 mg iron) tablet 325 mg PO BID SUPPLEMENT 02/11/14 multivitamin with folic acid 400 mcg tablet 1 tab PO DAILY SUPPLEMENT 02/11/14 omeprazole 20 mg capsule,delayed release 20 mg PO BID REFLUX 02/11/14 trazodone 50 mg tablet 50 mg PO QHS SLEEP 02/11/14 venlafaxine 75 mg tablet 75 mg PO BID DEPRESSION 02/11/14 biotin 10,000 mcg capsule 10,000 mcg PO DAILY HAIR LOSS 05/30/21 buspirone 5 mg tablet 5 mg PO TID PRN anxiety 05/30/21 calcium carbonate 600 mg-vitamin D3 12.5 mcg (500 unit) capsule (Calcium 600 with Vitamin D3) 1 cap PO BID 05/30/21 gabapentin 300 mg capsule 300 mg PO BID 05/30/21 metformin 1,000 mg tablet 500 mg PO BID 05/30/21 warfarin 10 mg tablet 10 mg PO SUTUTHFRSA 05/30/21 baclofen 10 mg tablet 10 mg PO TID PRN restless legs #30 tabs 10/30/22 ropinirole 2 mg tablet 2 mg PO QHS #90 tabs 10/30/22 meclizine 25 mg tablet 25 mg PO BID PRN dizziness #60 tabs 12/26/22 lisinopril 20 mg-hydrochlorothiazide 25 mg tablet 1 tab PO DAILY BP 01/23/23 warfarin 5 mg tablet (Jantoven) 7.5 mg PO MOWE 01/23/23 cefdinir 300 mg capsule 300 mg PO BID #15 caps 01/25/23 tramadol 50 mg tablet 50 mg PO Q6H PRN Pain Score 6-10 #25 tabs 01/25/23 Hospital Course Operations None Procedures Thoracentesis (Right thoracentesis) Summary of Care Provided Minutes Spent on Discharge: 32 Hospital Course: This 67-year-old white female was seen in the emergency room at [facility] with complaints of right-sided chest discomfort and right- sided back pain. She also complained of a fever. She was recently seen in the emergency room and was given antibiotics secondary to a diagnosis of community- acquired pneumonia. She came back to the ER for evaluation of continued right- sided back pain. Work-up in the emergency room showed a white blood cell count to be normal at 9.8, hemoglobin was slightly low at 10.4, CT of the chest was performed which showed worsening right pleural effusion and potential right lung pneumonia, rapid influenza and COVID test were negative, patient's pulse ox was 88% at rest, she did not have oxygen at home and the emergency room physician felt it was necessary to admit her due to her hypoxia and worsening pneumonia. Patient was admitted to [place] [address], she was placed on IV Rocephin and Zithromax, she underwent a right thoracentesis with removal of 240 cc of sheyla-colored fluid. There were no complications from the thoracentesis. On 01/25/2023, patient was seen and examined: On examination she appeared in good health and spirits, she does not appear to be in any distress. Vital signs as documented. Skin warm and dry and without overt rashes. Neck without JVD, thyr oid appears normal, trachea is midline, neck is supple. Lungs-there was decreased breath sounds at the right base, no wheezes or rhonchi were noted. Heart exam notable for regular rhythm, normal sounds and absence of murmurs, rubs or gallops. Abdomen unremarkable and without evidence of organomegaly, masses, or abdominal aortic enlargement, bowel sounds are present in all 4 quadrants, no abdominal tenderness was noted. Extremities nonedematous, no cyanosis was noted, no clubbing was noted. Neuro: Cranial nerves II through XII are grossly intact, no focal motor deficits were noted, sensation to light touch and pinprick is intact, motor exam 5/5 throughout. Psych: Patient is alert and oriented x3, she does not appear anxious or depressed, she does not appear agitated. Patient appears stable for discharge home on 01/25/2023, unfortunately she needed 3 L of oxygen on ambulation only and this was set up for the patient. The exact organism which caused the patient's pneumonia was unclear. Patient was expected to use her oxygen during activities of daily living and an outside her home. Weight / BMI Weight Weight: 112 kg Body Mass Index (BMI) 41.1 ABG / Lab / Microbiology Data 01/25/23 06:33 01/25/23 06:33 Laboratory: Laboratory Results - last 24 hr 01/24/23 08:00: Fluid Glucose 126 H, Fluid Total Protein 4.0, Fluid LDH 669 01/24/23 16:44: POC Glucose 127 H 01/24/23 22:47: POC Glucose 136 H 01/24/23 : Fluid Source THORACENTESIS, Fluid Color LT YEL, Fluid Appearance SL CLDY, Fluid WBC 1.476, Fluid RBC 0.003, Fluid Tot Cell Count 1.476 H, Fld Polynuclear WBCs # 1.073, Fld Polynuclear WBCs % 72.7, Fluid Mononuclear WBCs 0.403, Fld Mononuclear WBCs % 27.3, Fl Pathologist Comment May follow, Fluid Comment 2 SEE COMMENT 01/25/23 06:33: WBC 10.5, RBC 3.55 L, Hgb 10.9 L, Hct 33.8 L, MCV 95.2, MCH 30.7, MCHC 32.2, RDW Std Deviation 47.3 H, RDW Coeff of Les 13.3, Plt Count 359, MPV 9.4, Immature Gran % (Auto) 3.300 H, Neut % (Auto) 69.2, Lymph % (Auto) 14.7 L, [place] % (Auto) 9.6, Eos % (Auto) 2.7, Baso % (Auto) 0.5, Absolute Neuts (auto) 7.3, Absolute Lymphs (auto) 1.55, Nucleated RBC % 0, PT 16.9 H, INR 1.4, Sodium 139, Potassium 4.0, Chloride 104, Carbon Dioxide 30.0, Anion Gap 5, BUN 13, Creatinine 0.71, Estim Creat Clear Calc 49.80, Est GFR (MDRD) Af Amer 106, Est GFR (MDRD) Non-Af 88, BUN/Creatinine Ratio 18.3, Glucose 137 H, Calcium 8.4 L 01/25/23 06:34: POC Glucose 146 H 01/25/23 11:36: POC Glucose 177 H Microbiology: Microbiology 01/24/23 Unknown Fluid - Pleural (Lung) Gram Stain - Final 01/23/23 05:45 Nasal Secretion SARS-CoV-2 & FLU Antigen (Rapid) - Final Radiography Diagnostic Testing: Radiology Impression Thoracentesis Ultrasound 01/23/23 12:02 IMPRESSION: Ultrasound-guided right thoracentesis. Electronically Signed: Karlo Portillo MD at 14:37 EDT , Chest X-Ray 01/24/23 13:30 IMPRESSION: Status post right thoracentesis. No evidence of pneumothorax. Residual pleural parenchymal changes are seen at the right lung base. Electronically Signed: Karlo Portillo MD at 14:36 EDT , D/C Instructions Discharge Diet: 1800 Calorie Control Diet Weight Bearing Status: Full weight bearing Meaningful Use Info Meaningful Use Diagnoses (Choose all that apply): None applicable Discharge Plan Admission Admit Date/Time: 01/23/23 08:02 Primary Reason for Your Visit: hypoxia, right oleural effusion Attending Provider: Neymar Masters Primary Care Provider: Deysi Castro Consulting Providers: Kenney Vizcarra Instructions Patient Instructions: SARIAH RN Thoracentesis Dc Additional Instructions / Restrictions: Oxygen at 3 L/min via nasal cannula while ambulating Oxygen not needed at rest Discharge Orders/Prescriptions Prescriptions: New tramadol 50 mg Tablet 50 mg PO Q6H PRN (Reason: Pain Score 6-10) Qty: 25 0RF cefdinir 300 mg capsule 300 mg PO BID Qty: 15 0RF Rx Instructions: start in the evening of 01/25/23 Continued buspirone 5 mg tablet 5 mg PO TID PRN (Reason: anxiety) warfarin 10 mg tablet 10 mg PO SUTUTHFRSA metformin 1,000 mg tablet 500 mg PO BID calcium carbonate-vitamin D3 [Calcium 600 with Vitamin D3] 600 mg(1,500mg) - 500 unit capsule 1 cap PO BID gabapentin 300 mg capsule 300 mg PO BID Patient Comments: TAKE 1 CAPSULE TWICE DAILY FOR 28 DAYS ropinirole 2 mg tablet 2 mg PO QHS Qty: 90 1RF baclofen 10 mg tablet 10 mg PO TID PRN (Reason: restless legs) Qty: 30 5RF Hold Instructions: not taking venlafaxine 75 MG tablet 75 mg PO BID Patient Comments: ANXIETY/DEPRESSION trazodone 50 MG tablet 50 mg PO QHS Patient Comments: INSOMINIA cyanocobalamin (vitamin B-12) 500 MCG tablet 500 mcg PO DAILY@0800 Patient Comments: SUPPLEMENT ferrous sulfate 325 MG tablet 325 mg PO BID Patient Comments: SUPPLEMENT omeprazole 20 MG capsule 20 mg PO BID Patient Comments: ACID REFLUX multivitamin with folic acid 1 TABLET tablet 1 tab PO DAILY Patient Comments: SUPPLEMENT biotin 10,000 mcg capsule 10,000 mcg PO DAILY Patient Comments: SUPPLEMENT warfarin [Jantoven] 5 mg tablet 7.5 mg PO MOWE lisinopril-hydrochlorothiazide 20-25 mg tablet 1 tab PO DAILY meclizine 25 mg tablet 25 mg PO BID PRN (Reason: dizziness) Qty: 60 3RF Discontinued doxycycline monohydrate 100 mg capsule 100 mg PO BID Qty: 20 0RF Patient Comments: 7 DAYS REMAINING IN 10 DAY COURSE PER PT Referrals / Follow Up: Deysi Castro DO [Primary Care Provider] - In 1 Week Disposition Disposition (needs filled in before D/C Order can be placed): Home, Self Care Charges/Coding Visit Charges Inpatient E&M: 37930 Disch Hosp >30min
--- NOTE | 2023-01-25 14:15 | CASEMGMT ---
Addendum entered by Linda Jade 01/25/23 14:44: GURVINDER BOYER into pt room, pt is agreeable to using [employer]. Pt has a pox at home. Referral sent to [employer] via [facility] at this time. Addendum entered by Linda Jade 01/25/23 14:40: TC to [facility], spoke with Umm, she is aware of [facility] and that pt is dc'ing today. They do not have anyone who can set up oxygen for pt today. Addendum entered by Linda Jade 01/25/23 14:35: Ref[facility] to [facility] at [facility] time. Original Note: GURVINDER BOYER into pt room, pt aware that she qualifies for home oxygen. Provided pt with a verbal local list of DME companies, pt [facility]. Discussed homegoing oxygen instructions with pt. Pt verbalized understanding. Provided pt with a rx for BGM. Pt denies further homegoing needs.
[2023-01-25 15:51] VITALS: BP 134/80; PULSE 74; RESP 18; TEMP 37.1; O2SAT 95
--- NOTE | 2023-01-25 16:32 | PCM.HOSP.N ---
Hospitalist Note Patient was ambulated on room air today, her pulse ox was 84%, her pulse ox at rest without oxygen was 90%. Patient required 3 L of oxygen via nasal cannula to maintain her pulse ox at 94% when ambulating. Patient is expected to wear her oxygen in her home and outside of her home during activities of daily living, she will require portable oxygen to fulfill this. Patient is aware and has agreed to use the oxygen accordingly.
[2023-01-26 10:19] LABS: Pathologist Comment/Body Fluid Reviewed
[2023-01-31 15:54] LABS: Glucose, Body Fluid 124 mg/dL (40-70)
== END 2023-01-25 16:43 | disposition home or self-care (01) | DRG 194 ==
LOC: ED 08:12 → MS3 13:15
PROVIDERS: Admitting Provider Family Medicine; Emergency Provider Emergency Medicine; PCP Family Medicine; Visit Provider Internal Medicine
DX: J15.9 Unspecified bacterial pneumonia (principal); Z68.41 Body mass index [BMI] 40.0-44.9, adult; J91.8 Pleural effusion in other conditions classified elsewhere; E11.40 Type 2 diabetes mellitus with diabetic neuropathy, unspecified; E78.00 Pure hypercholesterolemia, unspecified; D50.9 Iron deficiency anemia, unspecified; E66.9 Obesity, unspecified; I10 Essential (primary) hypertension; K21.9 Gastro-esophageal reflux disease without esophagitis; M54.9 Dorsalgia, unspecified; F32.A Depression, unspecified; F41.9 Anxiety disorder, unspecified; R09.02 Hypoxemia; Z79.84 Long term (current) use of oral hypoglycemic drugs; Z79.01 Long term (current) use of anticoagulants; Z20.822 Contact with and (suspected) exposure to COVID-19; Z87.891 Personal history of nicotine dependence; Z86.718 Personal history of other venous thrombosis and embolism; Z86.711 Personal history of pulmonary embolism
CPT/HCPCS: 32555; 36415; 71046; 71275; 80048; 80076; 82945; 82962; 83605; 83615; 84157; 84484; 85025; 85610; 85730; 87070; 87075; 87205; 87428; 88108; 88305; 88313; 89050; 93005; 96360; 99283; 99285; J7030; Q9967; A4216; J2405

== ENCOUNTER → 2023-01-30 | Outpatient (CLI) | payer MEDICARE, OTHER, SELFPAY ==
[2023-01-30 14:09] LABS: Erythrocyte Sedimentation Rate 36 mm/hr (0-30)
[2023-01-30 14:11] LABS: Absolute Lymphocyte Count 1.78 X10^3/uL (0.83-4.51); Absolute Neutrophil Count 10.5 X10^3/uL (2.0-7.7); Basophil# 0.07 X10^3/uL; Basophil% 0.5 % (0-1); Eosinophil# 0.13 X10^3/uL; Hematocrit 33.4 % (37-47); Hemoglobin 10.5 g/dL (12.0-15.0); Lymphocyte # 1.78 X10^3/ul (0.83-4.51); Lymphocyte % 13.3 % (19-41); Mean Corp Hgb Conc 31.4 g/dL (32-36); Mean Corpuscular Volume 95.4 fL (81-99); Mean Platelet Vol. 9.3 fl (6.2-12.0); Monocyte# 0.72 X10^3/uL; Monocyte% 5.4 % (0-10); NRBC Flagged by Analyzer 0 % (0-5); Neutrophil # 10.45 X10^3/uL (2.7-7.7); Neutrophil % 77.8 % (47-70); POSITIVE MORPHOLOGY YES; Platelet Count 301 K/mm3 (150-450); RBC Distribution Width CV 13.9 % (11.6-14.6); RBC Distribution Width SD 48.5 fl (35.1-43.9); White Blood Count 13.4 K/mm3 (4.4-11.0)
[2023-01-30 14:13] LABS: Differential Indicated SCAN CRITERIA MET
[2023-01-30 14:42] LABS: Differential Comment SCANNED
[2023-01-30 16:47] LABS: AST(SGOT) 14 U/L (15-37); Alanine Aminotransfer ALT/SGPT 27 U/L (13-56); Albumin, Serum 1.9 g/dL (3.2-5.0); Alkaline Phosphatase 99 U/L (45-117); Bilirubin, Direct 0.18 mg/dL (0.00-0.30); Globulin 5.8 g/dL (2.2-4.2); Protein, Total 7.7 g/dL (6.4-8.2); Rheumatoid Factor < 10.0 IU/mL (<15)
[2023-01-31 13:08] LABS: ANTINUCLEAR ANTIBODIES DIRECT Negative (Negative); Anti-Jo <0.2 AI (0.0-0.9); Anti-Scleroderma-70 AB <0.2 AI (0.0-0.9); Anti-dsDNA Ab <1 IU/mL (0-9); RNP Ab <0.2 AI (0.0-0.9); SJOGREN'S Anti-SS-A test < 0.2 AI (0.0-0.9); SJOGREN'S Anti-SS-B test < 0.2 AI (0.0-0.9)
[2023-02-01 08:12] LABS: Angiotensin Convert Enzyme 16 U/L (14-82); Anti-Smooth Muscle ABS 18 Units (0-19); CCP IgG Antibodies 7 units (0-19); Cytoplasmic Ab (C-ANCA) <1:20 titer (Neg:<1:20); Perinuclear Ab (P-ANCA) <1:20 titer (Neg:<1:20)
== END | disposition home or self-care (01) ==
LOC: MFPLAB 10:38
PROVIDERS: PCP Family Medicine; Visit Provider Internal Medicine Pulmonary Disease
DX: R07.1 Chest pain on breathing (principal); J91.8 Pleural effusion in other conditions classified elsewhere
CPT/HCPCS: 36415; 80076; 82164; 83516; 85025; 85652; 86038; 86140; 86200; 86225; 86235; 86256; 86431

== ENCOUNTER → 2023-02-02 | Outpatient (CLI) | payer MEDICARE, OTHER, SELFPAY ==
--- NOTE | 2023-02-02 12:44 | RAD_ITS ---
STUDY: X-RAY CHEST REASON FOR EXAM: Female, 67 years old. CHEST PAIN TECHNIQUE: PA and lateral views of the chest. COMPARISON: Comparison is made with prior study dated January 24, 2023. FINDINGS: Small right pleural effusion with infiltration in the right lower lobe and right middle lobe. Normal size heart. Normal mediastinum and luda. Normal visualized pulmonary arteries. There is atherosclerotic calcification of the aortic arch with tortuosity. There are diffuse degenerative changes of the visualized thoracic spine. Normal visualized ribs, clavicles, and shoulders. There is no demonstrated abnormality of the visualized soft tissue structures of the upper abdomen. RAD/Chest PA and Lateral IMPRESSION: Small right pleural effusion with underlying infiltration in the right lower lobe and right middle lobe. Electronically Signed: Karlo Portillo MD at 14:29 EDT ,
--- NOTE | 2023-02-02 12:48 | RAD_ITS ---
STUDY: X-RAY CHEST REASON FOR EXAM: Female, 67 years old. Pleural effusion -- R DECUB TECHNIQUE: [id number] decubitus view COMPARISON: Comparison is made with prior study done earlier today. FINDINGS: Small right pleural effusion with underlying atelectasis and/or infiltrate. RAD/Special CXR (Obl/Decub/A/L) IMPRESSION: Small right pleural effusion with underlying atelectasis and/or infiltrate. Electronically Signed: Karlo Portillo MD at 14:29 EDT ,
--- NOTE | 2023-02-02 12:50 | RAD_ITS ---
STUDY: X-RAY CHEST REASON FOR EXAM: Female, 67 years old. PLEURAL EFFUSION -- L TECHNIQUE: Left lateral decubitus. COMPARISON: Comparison is made with prior study done earlier. FINDINGS: No left pleural effusion is seen. Stable right pleural-parenchymal changes. RAD/Special CXR (Obl/Decub/A/L) IMPRESSION: No evidence of left pleural effusion. Electronically Signed: Karlo Portillo MD at 14:30 EDT ,
[2023-02-02 16:40] LABS: Color, Urine Yellow (Yellow); Glucose, Dipstick Normal (Normal); Ketone-Dipstick Negative (Negative); Leukocyte Esterase-Dipstick Negative /ul (Negative); Nitrite-Dipstick Negative (Negative); Occult Blood-Urine Negative /ul (Negative); Protein-Dipstick 15 mg/dl (Negative); Urine Bilirubin Dipstick Negative (Negative); Urine Clarity Clear (Clear); Urine Urobilinogen Normal (Normal)
== END | disposition home or self-care (01) ==
LOC: MTLAB 12:41
PROVIDERS: PCP Family Medicine; Referring Provider Internal Medicine Pulmonary Disease; Visit Provider Internal Medicine Pulmonary Disease
DX: R07.9 Chest pain, unspecified (principal); J91.8 Pleural effusion in other conditions classified elsewhere
CPT/HCPCS: 71046; 81002

== ENCOUNTER → 2023-02-22 | Outpatient (CLI) | payer MEDICARE, OTHER, SELFPAY ==
--- NOTE | 2023-02-22 11:56 | RAD_ITS ---
STUDY: X-RAY CHEST REASON FOR EXAM: Female, 67 years old. Recent pneumonia. Follow-up. TECHNIQUE: Frontal and lateral views of the chest. COMPARISON: Decubitus chest dated February 02, 2023 and chest x-ray dated February 02, 2023. FINDINGS: Stable cardiomegaly. Aortic tortuosity with calcification, unchanged. Decrease in right pleural effusion with minimal right pleural fluid remaining. No abnormality of the visualized soft tissue structures of the upper abdomen. RAD/Chest PA and Lateral IMPRESSION: Cardiomegaly with decreased right pleural effusion. Small right effusion remains. No active or acute cardiopulmonary disease. Electronically Signed: Chevy Benitez MD at 13:38 EDT ,
--- NOTE | 2023-02-22 12:56 | VDLE_ITS ---
Reason For Study: Hx DVT RIGHT GSV is normal. CFV is compressible, spontaneous, phasic, competent and demonstrates normal augmentation. FV is compressible, spontaneous, phasic, competent and demonstrates normal augmentation. POP V is compressible, spontaneous, phasic, competent and demonstrates normal augmentation. T/P Trunk is compressible. PTV is compressible. RT PerV is compressible. Procedure This is a venous duplex using B-mode, color flow and spectral Doppler. Exam performed in department. The exam was abbreviated due to the COVID 19 protocol. The exam was diagnostic. A preliminary report was called and/or faxed to Dr. Zepeda. VL/Venous Duplex US, Unilateral Interpretation Summary Deep veins of the right lower extremity are patent and compressible segmentally . There is no evidence of right lower extremity deep vein thrombosis. Valvular competence otilia ears intact within the proximal deep venous system on the right . The right great saphenous vein a ppears patent and compressible segmentally. Ordering Physician: Meir Zepeda Performed By: Dao Abdi RVT
== END | disposition home or self-care (01) ==
LOC: CVS 12:53
PROVIDERS: PCP Family Medicine; Referring Provider Family Medicine; Visit Provider Family Medicine
DX: Z86.718 Personal history of other venous thrombosis and embolism (principal); Z87.01 Personal history of pneumonia (recurrent)
CPT/HCPCS: 71046; 93971

== ENCOUNTER → 2023-03-12 | Outpatient (CLI) | payer MEDICARE, OTHER, SELFPAY ==
--- NOTE | 2023-03-12 10:35 | RAD_ITS ---
STUDY: X-RAY CHEST REASON FOR EXAM: Female, 67 years old. Shortness of breath. TECHNIQUE: Frontal and lateral views of the chest. COMPARISON: Chest dated February 22, 2023. FINDINGS: Interval development of right lower lobe opacity and moderate-sized right pleural effusion. Findings compatible with pneumonia and follow up chest imaging to resolution recommended. Normal size heart. Normal mediastinum and luda. Normal visualized pulmonary arteries. Normal visualized aortic arch and descending thoracic aorta. Normal visualized thoracic spine. Normal visualized ribs, clavicles, and shoulders. No abnormality of the visualized soft tissue structures of the upper abdomen. RAD/Chest PA and Lateral IMPRESSION: Findings compatible with right lower lobe pneumonia with effusion. Follow-up chest imaging to resolution recommended. Electronically Signed: Chevy Benitez MD at 11:57 EDT ,
[2023-03-12 12:46] LABS: Absolute Lymphocyte Count 2.46 X10^3/uL (0.83-4.51); Absolute Neutrophil Count 11.2 X10^3/uL (2.0-7.7); Basophil# 0.08 X10^3/uL; Basophil% 0.5 % (0-1); Eosinophil# 0.09 X10^3/uL; Eosinophils% 0.6 % (0-5); Hematocrit 32.8 % (37-47); Lymphocyte # 2.46 X10^3/ul (0.83-4.51); Lymphocyte % 16.2 % (19-41); Mean Corp Hgb Conc 30.5 g/dL (32-36); Mean Corpuscular Hgb 28.2 pg (27.0-32.0); Mean Corpuscular Volume 92.4 fL (81-99); Mean Platelet Vol. 9.7 fl (6.2-12.0); Monocyte# 1.26 X10^3/uL; Monocyte% 8.3 % (0-10); NRBC Flagged by Analyzer 0 % (0-5); Neutrophil % 73.5 % (47-70); Platelet Count 444 K/mm3 (150-450); RBC Distribution Width CV 14.7 % (11.6-14.6); RBC Distribution Width SD 49.7 fl (35.1-43.9); Red Blood Count 3.55 M/mm3 (4.2-5.4); White Blood Count 15.2 K/mm3 (4.4-11.0)
[2023-03-12 14:08] LABS: Anion Gap 9 (5-15); BUN 21 mg/dL (7-18); BUN/Creat Ratio 22.3 RATIO (10-20); Chloride 100 mmol/L (98-107); Creatinine, Serum 0.94 mg/dL (0.55-1.02); EST Glomerular Filtration Rate 63 mL/min (>60); Est Glom Filt Rate - Afr Amer 77 mL/min (>60); Glucose 191 mg/dL (74-106); Potassium 4.1 mmol/L (3.5-5.1); Sodium Level 133 mmol/L (136-145)
[2023-03-12 20:36] LABS: BNP,B-Type NATRIURETIC PEPTIDE 34.7 pg/mL (0-100)
== END | disposition home or self-care (01) ==
LOC: MTLAB 10:27
PROVIDERS: PCP Family Medicine; Referring Provider Nurse Practitioner Family; Visit Provider Nurse Practitioner Family
DX: R06.09 Other forms of dyspnea (principal)
CPT/HCPCS: 36415; 71046; 80048; 83880; 85025

== ENCOUNTER 2023-03-13 15:25 | Outpatient (CLI) | payer MEDICARE, OTHER, SELFPAY ==
[2023-03-13 18:07] LABS: INR Fingerstick 2.5; Prothrombin Time Fingerstick 27.2 SEC (11.7-14.9)
== END 2023-03-13 23:59 | disposition home or self-care (01) ==
LOC: PAT 04-12 15:25
PROVIDERS: PCP Family Medicine; Referring Provider Family Medicine; Visit Provider Internal Medicine Pulmonary Disease
DX: Z01.818 Encounter for other preprocedural examination (principal)
CPT/HCPCS: 36416; 85610

== ENCOUNTER → 2023-03-13 | Outpatient (CLI) | payer MEDICARE, OTHER, SELFPAY ==
--- NOTE | 2023-03-13 13:12 | CT_ITS ---
INDICATION: Shortness of breath EXAMINATION: CT CHEST WITHOUT CONTRAST TECHNIQUE: Helically acquired images were obtained of the chest. A radiation dose optimization technique was used for this scan. IV Contrast dosage and agent: None. RADIATION DOSAGE (If Supplied By Facility): CTDIvol = ( 20.14 ) mGy, DLP = ( 694.64 ) mGycm COMPARISON: CT of the chest of 02/02/2023. FINDINGS: LUNGS, PLEURA AND LARGE AIRWAYS: Persistent loculated right pleural effusion essentially unchanged since prior examination. Small pocket of air within the right pleural space likely due to recent intervention. Compressive atelectatic changes in the right lower lung. Right middle lobe focal stranding could be due to scarring. THYROID: No thyroid lesions. HEART AND PERICARDIUM: Heart size is normal. Calcifications of the mitral annulus. No pericardial effusion. Possible mild pericardial calcifications. CORONARY ARTERIES: Coronary artery calcification are seen. VESSELS: Atherosclerotic excretions of the thoracic aorta without evidence of aneurysm. MEDIASTINUM AND FABIOLA: Small mediastinal nodes. No evidence of adenopathy. Esophagus is unremarkable. No hiatal hernia. UPPER ABDOMEN: No acute pathology. BONES: No suspicious lytic or blastic abnormality. CT/Chest without Contrast IMPRESSION: 1. Persistent loculated right pleural effusion. 2. Compressive atelectatic changes in right lower lung. 3. Small pockets of air within the right pleural space could be due to recent intervention. 4. No new infiltrate is seen. Electronically Signed: Farhan Sams MD at 14:58 EDT ,
== END | disposition home or self-care (01) ==
LOC: CT 13:12
PROVIDERS: PCP Family Medicine; Referring Provider Internal Medicine Pulmonary Disease; Visit Provider Internal Medicine Pulmonary Disease
DX: J18.9 Pneumonia, unspecified organism (principal); J91.8 Pleural effusion in other conditions classified elsewhere; R06.02 Shortness of breath
CPT/HCPCS: 71250

== ENCOUNTER → 2023-03-28 | Outpatient (CLI) | payer MEDICARE, OTHER, SELFPAY ==
[2023-03-28 12:32] LABS: Hemoglobin 9.4 g/dL (12.0-15.0); Mean Corp Hgb Conc 30.3 g/dL (32-36); Mean Corpuscular Hgb 28.1 pg (27.0-32.0); Mean Corpuscular Volume 92.8 fL (81-99); Mean Platelet Vol. 9.1 fl (6.2-12.0); Platelet Count 525 K/mm3 (150-450); RBC Distribution Width CV 14.7 % (11.6-14.6); RBC Distribution Width SD 50.4 fl (35.1-43.9); Red Blood Count 3.34 M/mm3 (4.2-5.4); White Blood Count 8.4 K/mm3 (4.4-11.0)
[2023-03-28 12:37] LABS: Anion Gap 7 (5-15); BUN 27 mg/dL (7-18); BUN/Creat Ratio 17.3 RATIO (10-20); Calcium,Total 8.6 mg/dL (8.5-10.1); Chloride 108 mmol/L (98-107); Creatinine, Serum 1.56 mg/dL (0.55-1.02); EST Glomerular Filtration Rate 35 mL/min (>60); Est Glom Filt Rate - Afr Amer 43 mL/min (>60); Glucose 112 mg/dL (74-106); Potassium 3.9 mmol/L (3.5-5.1); Sodium Level 141 mmol/L (136-145)
== END | disposition home or self-care (01) ==
LOC: MFPLAB 10:03
PROVIDERS: PCP Family Medicine; Visit Provider Nurse Practitioner Family
DX: N17.9 Acute kidney failure, unspecified (principal); D64.9 Anemia, unspecified
CPT/HCPCS: 36415; 80048; 85027

== ENCOUNTER 2023-04-19 15:44 | Outpatient (CLI) | payer MEDICARE, OTHER, SELFPAY ==
--- NOTE | 2023-04-19 15:48 | RAD_ITS ---
STUDY: X-RAY CHEST REASON FOR EXAM: Female, 67 years old. PLEURAL EFFUSION TECHNIQUE: Frontal and lateral views of the chest. COMPARISON: 03/12/2023. FINDINGS: Grossly stable complex pulmonary densities in the lower right hemithorax consisting of probable pleural effusion and atelectasis or infiltrate. Findings appear chronic and there is probable pleural parenchymal scarring. Left lung remains clear. Normal size heart. Normal mediastinum and luda. Normal visualized pulmonary arteries. There is atherosclerotic calcification of the aortic arch with tortuosity. Normal visualized thoracic spine. Normal visualized ribs, clavicles, and shoulders. There is no demonstrated abnormality of the visualized soft tissue structures of the upper abdomen. RAD/Chest PA and Lateral IMPRESSION: No change. Stable complex pulmonary opacities in the lower right hemithorax. Electronically Signed: Tra Sherman MD at 19:58 EDT ,
== END 2023-04-19 23:59 | disposition home or self-care (01) ==
LOC: MTRAD 15:46
PROVIDERS: PCP Family Medicine; Referring Provider Internal Medicine Pulmonary Disease; Visit Provider Internal Medicine Pulmonary Disease
DX: J90 Pleural effusion, not elsewhere classified (principal); J91.8 Pleural effusion in other conditions classified elsewhere
CPT/HCPCS: 71046

== ENCOUNTER 2023-05-18 08:30 | Outpatient (RCR) | payer MEDICARE, OTHER, SELFPAY ==
[2023-04-27 10:48] VITALS: BP 152/63; PULSE 83; RESP 18; TEMP 35.8; BMI 39.1
--- NOTE | 2023-04-27 15:19 | HP.PCM_ITS ---
History of Present Illness Date of Service: 04/27/23 Chief Complaint: right lateral chest wound History of Wound: Elsa is a 67 yo woman that presents to the wound center today for evaluation and treatment of a nonhealing wound of her right chest wall from a chest tube. She was hospitalized the end of February and discharged on Mar.24 from [facility] for pneumonia and pleural effusion which need surgical debridement. The wound has not healed since the chest tube was removed Mar. . She has been applying Bacitracin. She states there is light drainage, no erythema or odor or fever or chills. [facility] Medical History Anemia Anxiety and depression Cerebral convexity meningioma Cerebrovascular small vessel disease Cervical radiculitis Claustrophobia CPAP (continuous positive airway pressure) dependence Depression Diabetes DVT (deep venous thrombosis) Encounter for screening for COVID-19 Fatigue Former smoker Gastric ulcer GERD (gastroesophageal reflux disease) Glaucoma High cholesterol History of DVT (deep vein thrombosis) History of edema History of iron deficiency History of kidney stones History of pneumonia History of stress test (~04/06/20) History of ulceration History of UTI HTN (hypertension) Hypoxia Leg cramps Mild cognitive impairment Neuropathy Peripheral vestibulopathy Pneumonia Post-menopausal Preop testing Pulmonary embolism Renal calculus, bilateral Right hip pain Shortness of breath on exertion Sleep apnea Wears glasses Home Medications cyanocobalamin (vitamin B-12) 500 mcg tablet 500 mcg PO DAILY@0800 SUPPLEMENT 02/11/14 [History Last Taken 01/22/23] ferrous sulfate 325 mg (65 mg iron) tablet 325 mg PO BID SUPPLEMENT 02/11/14 [History Last Taken 01/22/23] multivitamin with folic acid 400 mcg tablet 1 tab PO DAILY SUPPLEMENT 02/11/14 [History Last Taken 01/22/23] omeprazole 20 mg capsule,delayed release 20 mg PO BID REFLUX 02/11/14 [History Last Taken 01/22/23] trazodone 50 mg tablet 50 mg PO QHS SLEEP 02/11/14 [History Last Taken 01/22/23] venlafaxine 75 mg tablet 75 mg PO BID DEPRESSION 02/11/14 [History Last Taken 01/22/23] biotin 10,000 mcg capsule 10,000 mcg PO DAILY HAIR LOSS 05/30/21 [History Last T kai 01/22/23] buspirone 5 mg tablet 5 mg PO TID PRN anxiety 05/30/21 [History Last Taken 01/22/23] calcium carbonate 600 mg-vitamin D3 12.5 mcg (500 unit) capsule (Calcium 600 with Vitamin D3) 1 cap PO BID 05/30/21 [History Last Taken 01/22/23] gabapentin 300 mg capsule 100 mg PO BID 05/30/21 [History Last Taken 01/22/23] metformin 1,000 mg tablet 500 mg PO BID 05/30/21 [History Last Taken 01/22/23] lisinopril 20 mg-hydrochlorothiazide 25 mg tablet 1 tab PO DAILY BP 01/23/23 [History Last Taken 01/22/23] [facility] 7.5 mg PO DAILY 01/23/23 [History Last Taken 01/22/23] tramadol 50 mg tablet 50 mg PO Q6H PRN Pain Score 6-10 #25 tabs 01/25/23 [Rx Last Taken Unknown] meclizine 25 mg tablet 25 mg PO BID PRN dizziness #60 tabs 02/27/23 [Rx Last Taken Unknown] ropinirole 2 mg tablet 2 mg PO .COMPLEX #180 tabs 02/27/23 [Rx Last Taken Unknown] prednisone 10 mg tablets in a dose pack See Rx Instructions PO PER PKG DIR #21 tabs 03/11/23 [Rx Last Taken Unknown] Allergy/AdvReac Type Severity Reaction Status Date / Time amoxicillin Allergy Mild rash Verified 04/19/23 10:59 atorvastatin AdvReac Mild myalgiias Verified 04/19/23 10:59 levofloxacin [From Levaquin] AdvReac Unknown Nausea Verified 04/19/23 10:59 Family History Mother Heart disease Hypertension Father Heart disease CVA (cerebral vascular accident) Brother Cancer Surgical History History of carpal tunnel release of both wrists History of colonoscopy (~2014) History of dilation and curettage History of [place]-en-Y gastric bypass History of umbilical hernia repair Status post biopsy of thyroid gland (~08/2019) Status post panniculectomy Social History household members: spouse housing: house Smoking Status: Never smoker Tobacco: How many years used: 40 Electronic Cigarette Use: not used how long ago did patient quit smoking: about a year and half ago second hand exposure: No alcohol intake: never substance use type: does not use what type of physical activity do you participate in: none do you feel safe at home: Yes ROS Constitutional Constitutional: Denies chills, fatigue or fever(s) Eyes Eyes: Denies blurry vision, change in vision or loss of vision ENT HEENT: Denies dysphagia, hearing loss or sore throat Cardiovascular Cardiovascular: Denies chest pain, edema or palpitations Respiratory/Chest Respiratory/Chest: Denies dry cough, dyspnea, dyspnea on exertion, productive cough or wheezing Gastrointestinal Gastrointestinal: Denies diarrhea, nausea or vomiting Genitourinary Genitourinary: Denies dysuria or polyuria Musculoskeletal Musculoskeletal: Denies arthralgias, joint stiffness or muscle weakness Integumentary Integumentary: Reports erythema and wounds Neurologic Neurologic: Denies dizziness, memory loss or weakness Psychiatric Psychiatric: Denies homicidal ideation or suicidal ideation Endocrine Endocrinology: Denies polydipsia, polyphagia or polyuria Hematologic/Lymphatic Hematologic/Lymphatic: Denies easy bleeding or easy bruising Allergic/Immunologic Allergic/Immunologic: Denies throat swelling, tongue swelling or urticaria Vital Signs Vital Signs Vital Signs: 04/27/23 10:48 Temperature 96.4 F L Temperature Source Temporal Pulse Rate 83 Respiratory Rate 18 Blood Pressure 152/63 H Blood Pressure Mean 92 Blood Pressure Source Monitor Blood Pressure Position Semi-Fowlers Blood Pressure Location Left Arm Weight Weight: 106.594 kg Body Mass Index (BMI) 39.1 Physical Exam Const alert, oriented x3 and no apparent distress General Appearance: cooperative and comfortable HEENT normocephalic and head/scalp atraumatic Resp normal respiratory effort Effort and Inspection: able to speak in complete sentences Cardio regular rate and regular rhythm Skin Wounds: wounds noted Wound Narrative: as in clinical panel Psych mental status grossly normal, thought process normal, cooperative and affect normal Debridement Note Debridement Note Wound debrided: right chest wall Laterality: Right Type of Debridement: Excisional debridement Anesthesia Used: 4% Lidocaine Solution and 5% Lidocaine Gel Depth: Down to and including healthy tissue and in the subcutaneous layer Percentage of wound debrided: 100 Instrument Used: 3mm curette Tissue Removed: yellow slough, devitalized tissue Severity: Fat Layer Exposed Amount of bleeding with debridement: Mild Bleeding Controlled with: Compression and gauze Patient tolerated procedure: Patient tolerated procedure well Post-Debridement Measurements and Additional Note: Post-Debridement Measurements/Treatment WC - Nurse 1 - General Ulcer Assessment Start: 04/27/23 10:45 Freq: Status: Active Protocol: [email or web address] Activity Type Activity Date Activity User E-sign Co-sign Detail Recorded Client Recorded Date Recorded By Document 04/27/23 10:48 RB Desktop 04/27/23 10:54 RB Edit Result 04/27/23 10:48 RB (1) Desktop 04/27/23 11:25 RB (1) Height => 5 ft 5 in Weight => 106.594 kg Weight in Pounds => 235.0 lbs Body Mass Index (BMI) => 39.1 BMI Classification => Obese BSA - June => 2.12 04/27/23 10:48 WC - Today's Visit Information Type of service Initial Visit Arrival Mode Ambulatory Transfer Assistance None Patient Identification Verified (Name & Yes ) Patient Requires Transmission-Based No Precautions Height and Weight Height 5 ft 5 in Weight 106.594 kg Weight in Pounds 235.0 lbs Body Mass Index (BMI) 39.1 BMI Classification Obese BSA - June 2.12 Vital Signs Temperature (97.8 F-99.1 F) 96.4 F L Temperature Source Temporal Pulse Rate (60-100) 83 Pulse Location Monitor Respiratory Rate (12-18) 18 Respiratory rate source Observation Blood Pressure (90/60-120/80) 152/63 H Blood Pressure Mean 92 Source Monitor Position Semi-Fowlers Blood Pressure Location Left Arm History Since Last Visit- (Skip if this is Patient's initial visit) Have you changed medications since your No last visit? Any new allergies or adverse reactions No Had a fall/change in ADL's that may No increase risk of falls Signs or symptoms of abuse and/or No neglect since last visit Have you been in the hospital since your No last visit? Has dressing in place as prescribed Yes Has compression in place as prescribed No Has offloadiing in place as prescribed No Experienced any changes in pain level or No management Pain Scale: 0-10 Numeric Is Patient Pain Free? Yes Communication Assessment Preferred language [place] It Security Consulting Director Required No Able to Read Yes Able to Write Yes Communication Tools None Right Hearing Abillity Normal Left Hearing Abillity Normal Visual Assistive Devices Glasses Teaching Assessment Preferences Verbal,Written, Demonstration Barriers to Learning None Readiness To Learn Excellent Willingness to Engage in Self Management Med Activies Readiness to Engage in Self Management Med Activities Anxiety Level Calm Cooperation Cooperative Perception Coherent Interest in Health Problem Asks Questions Education Importance Acknowledges Need Does Patient Smoke tobacco or other No substances Smoking Status Never smoker Is Patient Diabetic Yes Functional Assessment Recent Decline in Ability to Perform Denies Any Declines Assistive Device With Patient No Culture/Methodist/Bag Bleacher Cultural/Methodist Needs that may affect No Treatment Plan Would you allow our hospital fisher pot to No meet you for the purpose of spiritual/ emotional support? Bag Bleacher to contact place of hinduism No Teaching: Wound Center *Welcome to the Wound Center -Person Taught Patient -Teaching Method Discussion -Response to teaching Verbalize understanding WC - Nurse 1 - General Ulcer Measurement Start: 04/27/23 10:45 Freq: Status: Active Protocol: Activity Type Activity Date Activity User E-sign Co-sign Detail Recorded Client Recorded Date Recorded By Document 04/27/23 10:48 RB Desktop 04/27/23 10:54 RB 04/27/23 10:48 Wound Center Nurse 1 1. R chest (rib cage) -Combined with other wound No -Current Size (cm) - Length 0.5 -Current Size (cm) - Width 1 -Current Size (cm) - Depth 0.1 -Total Square Cm 0.5 -Photo Taken Yes -Tunneling No -Undermining/Tunneling No -Circular Undermining No -Exudate Amt Medium -Exudate Type Serosanguineous -Wound Margin Distinct, Outline Attached -Granulation Amt Medium (34-66%) -Granulation Quality [place] -Slough/Fibrin Yes -Necrosis Amt Medium (34-66%) -Necrotic Tissue Type Adherent Slough -Structure Exposed N/A -Texture (Sybil-wound Skin Appearance) Assessed -Moisture (Sybil-wound Skin Appearance) Assessed -Color (Sybil-wound Skin Appearance) Assessed -Temperature (Sybil-wound Skin No Abnormality Appearance) (Pt Warm) -Tenderness on Palpation (Sybil-wound No Skin Appearance) -Ulcer Cleansing Wound Cleanser -Foul Odor after Cleansing No -Anesthetic Used 5% Lidocaine Gel CHERYL - Nurse 2 - General Ulcer CM Notes Start: 04/27/23 10:45 Freq: Status: Active Protocol: Activity Type Activity Date Activity User E-sign Co-sign Detail Recorded Client Recorded Date Recorded By Document 04/27/23 11:13 Desktop 04/27/23 11:19 04/27/23 11:13 Wound Center Nurse 2 -Time 11:13 -Correct Patient Yes -Correct Side, Site, Position Yes -Correct Procedure Yes -Procedure Performed Yes -Type of Procedure Debridement -Clinical Debridement Subcutaneous -Tissue Removed Subcutaneous -Post Debridement (cm) - Length 0.4 -Post Debridement (cm) - Width 0.9 -Post Debridement (cm) - Depth 0.1 -Total Square (Post) (cm) 0.36 -Area of Debridement (cm) - Length 0.4 -Area of Debridement (cm) - Width 0.9 -Total Square (Area) (cm) 0.36 -Wound/Ulcer Outcome Not Healed -Ulcer Cleansing Rinsed/ Irrigated with Saline -Foul Odor after Cleansing No -Bioengineered Tissue No -Bleeding Controlled with Pressure -Treatment Response Procedure Tolerated Well -Debridement - Subq, 1st 20sq cm Yes Pain Scale: 0-10 Numeric Is Patient Pain Free? Yes - Nurse 3 - General Ulcer D/C NN Start: 04/27/23 10:45 Freq: Status: Active Protocol: Activity Type Activity Date Activity User E-sign Co-sign Detail Recorded Client Recorded Date Recorded By Document 04/27/23 12:27 RB [id number] 04/27/23 12:28 RB 04/27/23 12:27 Wound Care Center Nurse 3 1. R chest (rib cage) -Ulcer Cleansing Rinsed/ Irrigated with Saline -Primary Dressing Applied Mepilex Border -Other Dressing hydrogel -Mepilex Border 4 Treatment Response Procedure Tolerated Well Pain Scale: 0-10 Numeric Is Patient Pain Free? Yes Teaching: Wound Center Dressing Your Wound -Person Taught Patient -Teaching Method Discussion, Demonstration -Response to teaching Verbalize understanding WC - Visit Discharge Discharge Condition Stable Ambulatory Status Ambulatory Transportation Private Auto Medication Reconcilliation completed & No provided to patient/care provider Clinical Summary of Care Provided Yes Assessment/Plan Assessment/Plan (1) Open wound of right chest wall: CODE(S): S21.101A - Unspecified open wound of right front wall of thorax without penetration into thoracic cavity, initial encounter QUALIFIERS: Encounter type: subsequent encounter Qualified Code(s): S21.101D - Unspecified open wound of right front wall of thorax without penetration into thoracic cavity, subsequent encounter (2) Nonhealing nonsurgical wound with fat layer exposed: CODE(S): T14.8XXA - Other injury of unspecified body region, initial encounter (3) Obesity: CODE(S): E66.9 - Obesity, unspecified QUALIFIERS: Obesity type: unspecified obesity type Obesity classification: adult class 2 (BMI 35 - 39.9) Serious obesity comorbidity presence: without serious comorbidity Body mass index: BMI 39.0-39.9 Qualified Code(s): E66.9 - Obesity, unspecified; Z68.39 - Body mass index [BMI] 39.0-39.9, adult (4) COPD (chronic obstructive pulmonary disease): CODE(S): J44.9 - Chronic obstructive pulmonary disease, unspecified QUALIFIERS: COPD type: unspecified COPD Qualified Code(s): J44.9 - Chronic obstructive pulmonary disease, unspecified PLAN: Plan Debridement performed today in clinic as annotated above. At home wound-care instructions: Apply hydrogel and foam dressing every other day. Keep dressing clean and dry. Off-loading: The patient was instructed to avoid pressure and friction on the affected areas. Reposition every 2 hours at minimum. Avoid prolonged standing and/or dangling of legs. When seated, feet should be elevated at chest level. Frequent ambulation is encouraged. Diet: Patient encouraged to increase protein intake while taking caution to avoid high carbohydrate and/or sugar intake. Labs/cultures/imaging: Follow-up: Return in 1 week for wound care follow up. Return sooner or report to the emergency room should symptoms worsen, or new symptoms arise. Note: [employer] speech recognition sausage maker software was used to create portions of this document. Sound-alike and misspelled words, as well as other sausage maker errors may be contained in the documentation.
[2023-05-04 10:33] VITALS: BP 135/56; PULSE 91; RESP 18; TEMP 36.2; BMI 39.1
--- NOTE | 2023-05-04 12:49 | PN.PCM_ITS ---
History of Present Illness Date of Service: 05/04/23 Chief Complaint: right lateral chest wound History of Wound: Elsa is a 67 yo woman that presents to the wound center today for evaluation and treatment of a nonhealing wound of her right chest wall from a chest tube. She was hospitalized the end of February and discharged on Mar.24 from [facility] for pneumonia and pleural effusion which need surgical debridement. The wound has not healed since the chest tube was removed Mar.24. She has been applying Bacitracin. She states there is light drainage, no erythema or odor or fever or chills. Subjective Subjective Elsa is here today for follow up of nonhealing wounds at site of chest tube insertion. She tolerated the hydrogel and the foam dressings well and the one area is healed. The other area is still open and draining lightly. She denies fever, chills, increased pain or erythema. Objective Data Objective Data Vital Signs: Vital Signs Temp Pulse Resp BP O2 Del Method 97.1 F L 91 18 135/56 H Room Air 05/04/23 10:33 05/04/23 10:33 05/04/23 10:33 05/04/23 10:33 05/04/23 10:33 Oxygen Delivery Method Room Air Weight: 106.594 kg Body Mass Index (BMI) 39.1 Physical Exam Const alert, oriented x3 and no apparent distress General Appearance: cooperative and comfortable HEENT normocephalic and head/scalp atraumatic Resp normal respiratory effort Effort and Inspection: able to speak in complete sentences Cardio regular rate and regular rhythm Skin Wounds: wounds noted Wound Narrative: as in clinical panel Psych mental status grossly normal, thought process normal, cooperative and affect normal Debridement Note Debridement Note Wound debrided: right chest wall Laterality: Right Type of Debridement: Selective debridement Anesthesia Used: 4% Lidocaine Solution and 5% Lidocaine Gel Depth: Down to and including healthy tissue and in the subcutaneous layer Percentage of wound debrided: 100 Instrument Used: - (gauze) Tissue Removed: yellow slough, devitalized tissue Severity: Fat Layer Exposed Amount of bleeding with debridement: Mild Bleeding Controlled with: Compression and gauze Patient tolerated procedure: Patient tolerated procedure well Post-Debridement Measurements and Additional Note: Post-Debridement Measurements/Treatment CHERYL - Nurse 1 - General Ulcer Assessment Start: 04/27/23 10:45 Freq: Status: Active Protocol: WC.LOWEXT Activity Type Activity Date Activity User E-sign Co-sign Detail Recorded Client Recorded Date Recorded By Document 04/27/23 10:48 RB Desktop 04/27/23 10:54 RB Edit Result 04/27/23 10:48 RB (1) Desktop 04/27/23 11:25 RB Document 05/04/23 10:33 KW Desktop 05/04/23 10:44 KW (1) Height => 5 ft 5 in Weight => 106.594 kg Weight in Pounds => 235.0 lbs Body Mass Index (BMI) => 39.1 BMI Classification => Obese BSA - June => 2.12 04/27/23 05/04/23 10:48 10:33 WC - Today's Visit Information Type of service Initial Visit Follow-up Visit (Physician/[employer] ) Arrival Mode Ambulatory Ambulatory Transfer Assistance None Patient Identification Verified (Name & Yes Yes ) Patient Requires Transmission-Based No Precautions Finger Stick Blood Sugar(mg/dl) (if 121 indicated): Blood Sugar Stated by Patient Height and Weight Height 5 ft 5 in Weight 106.594 kg Weight in Pounds 235.0 lbs Body Mass Index (BMI) 39.1 39.1 BMI Classification Obese Obese BSA - June 2.12 Vital Signs Temperature (97.8 F-99.1 F) 96.4 F L 97.1 F L Temperature Source Temporal Temporal Pulse Rate (60-100) 83 91 Pulse Location Monitor Monitor Respiratory Rate (12-18) 18 18 Respiratory rate source Observation Observation Oxygen Delivery Method Room Air Blood Pressure (90/60-120/80) 152/63 H 135/56 H Blood Pressure Mean (mm Hg) 92 82 Source Monitor Monitor Position Semi-Fowlers Semi-Fowlers Blood Pressure Location Left Arm Left Arm History Since Last Visit- (Skip if this is Patient's initial visit) Have you changed medications since your No No last visit? Any new allergies or adverse reactions No No Had a fall/change in ADL's that may No No increase risk of falls Signs or symptoms of abuse and/or No No neglect since last visit Have you been in the hospital since your No No last visit? Has dressing in place as prescribed Yes Yes Has compression in place as prescribed No N/A Has offloadiing in place as prescribed No N/A Experienced any changes in pain level or No management Left Footwear Regular Shoe Right Footwear Regular Shoe Pain Scale: 0-10 Numeric Is Patient Pain Free? Yes Yes Communication Assessment Preferred language Arabic Lead Caster Helper Required No Able to Read Yes Able to Write Yes Communication Tools None Right Hearing Abillity Normal Left Hearing Abillity Normal Visual Assistive Devices Glasses Teaching Assessment Preferences Verbal,Written, Demonstration Barriers to Learning None Readiness To Learn Excellent Willingness to Engage in Self Management Med Activies Readiness to Engage in Self Management Med Activities Anxiety Level Calm Cooperation Cooperative Perception Coherent Interest in Health Problem Asks Questions Education Importance Acknowledges Need Does Patient Smoke tobacco or other No substances Smoking Status Never smoker Is Patient Diabetic Yes Functional Assessment Recent Decline in Ability to Perform Denies Any Declines Assistive Device With Patient No Culture/Protestant/Towel Inspector Cultural/Protestant Needs that may affect No Treatment Plan Would you allow our hospital account manager b2b to No meet you for the purpose of spiritual/ emotional support? Towel Inspector to contact place of jainism No Teaching: Wound Center *Welcome to the Wound Center -Person Taught Patient -Teaching Method Discussion -Response to teaching Verbalize understanding WC - Nurse 1 - General Ulcer Measurement Start: 04/27/23 10:45 Freq: Status: Active Protocol: Activity Type Activity Date Activity User E-sign Co-sign Detail Recorded Client Recorded Date Recorded By Document 04/27/23 10:48 RB Desktop 04/27/23 10:54 RB Document 05/04/23 10:33 KW Desktop 05/04/23 10:44 KW 04/27/23 05/04/23 10:48 10:33 Wound Center Nurse 1 1. R chest (rib cage) -Combined with other wound No -Current Size (cm) - Length 0.5 0.5 -Current Size (cm) - Width 1 0.6 -Current Size (cm) - Depth 0.1 0.1 -Total Square Cm 0.5 0.30 -Photo Taken Yes -Tunneling No -Undermining/Tunneling No -Circular Undermining No -Exudate Amt Medium Small -Exudate Type Serosanguineous Yellow/Green -Wound Margin Distinct, Distinct, Outline Outline Attached Attached -Granulation Amt Medium (34-66%) Medium (34-66%) -Granulation Quality [place] Red -Slough/Fibrin Yes -Necrosis Amt Medium (34-66%) Small (1-33%) -Necrotic Tissue Type Adherent Slough Adherent Slough -Structure Exposed N/A -Texture (Sybil-wound Skin Appearance) Assessed Assessed, Localized Edema -Moisture (Sybil-wound Skin Appearance) Assessed Assessed -Color (Sybil-wound Skin Appearance) Assessed Assessed -Temperature (Sybil-wound Skin No Abnormality No Abnormality Appearance) (Pt Warm) (Pt Warm) -Tenderness on Palpation (Sybil-wound No Skin Appearance) -Ulcer Cleansing Wound Cleanser Rinsed/ Irrigated with Saline -Foul Odor after Cleansing No No -Anesthetic Used 5% Lidocaine 5% Lidocaine Gel Gel WC - Nurse 2 - General Ulcer CM Notes Start: 04/27/23 10:45 Freq: Status: Active Protocol: Activity Type Activity Date Activity User E-sign Co-sign Detail Recorded Client Recorded Date Recorded By Document 04/27/23 11:13 GM Desktop 04/27/23 11:19 GM Document 05/04/23 10:50 GM Desktop 05/04/23 10:56 GM 04/27/23 05/04/23 11:13 10:50 Wound Center Nurse 2 1. R chest (rib cage) -Time 11:13 10:50 -Correct Patient Yes Yes -Correct Side, Site, Position Yes Yes -Correct Procedure Yes Yes -Procedure Performed Yes Yes -Type of Procedure Debridement Debridement -Clinical Debridement Subcutaneous Subcutaneous -Tissue Removed Subcutaneous Subcutaneous -Post Debridement (cm) - Length 0.4 0.4 -Post Debridement (cm) - Width 0.9 0.5 -Post Debridement (cm) - Depth 0.1 0.1 -Total Square (Post) (cm) 0.36 0.20 -Area of Debridement (cm) - Length 0.4 0.4 -Area of Debridement (cm) - Width 0.9 0.5 -Total Square (Area) (cm) 0.36 0.20 -Tunneling No -Undermining/Tunneling No -Circular Undermining No -Wound/Ulcer Outcome Not Healed Not Healed -Ulcer Cleansing Rinsed/ Rinsed/ Irrigated with Irrigated with Saline Saline -Foul Odor after Cleansing No No -Bioengineered Tissue No No -Bleeding Controlled with Pressure Pressure -Treatment Response Procedure Procedure Tolerated Well Tolerated Well -Debridement - Subq, 1st 20sq cm Yes Yes Pain Scale: 0-10 Numeric Is Patient Pain Free? Yes Yes CHERYL - Nurse 3 - General Ulcer D/C NN Start: 04/27/23 10:45 Freq: Status: Active Protocol: Activity Type Activity Date Activity User E-sign Co-sign Detail Recorded Client Recorded Date Recorded By Document 04/27/23 12:27 RB [id number] 04/27/23 12:28 RB Document 05/04/23 11:01 Desktop 05/04/23 11:02 04/27/23 05/04/23 12:27 11:01 Wound Care Center Nurse 3 1. R chest (rib cage) -Ulcer Cleansing Rinsed/ Not Cleansed Irrigated with Saline -Foul Odor after Cleansing No -Primary Dressing Applied Mepilex Border Mepilex Border, Promogran -Other Dressing hydrogel -Mepilex Border 4 1 -Promogran 1 Treatment Response Procedure Tolerated Well Pain Scale: 0-10 Numeric Is Patient Pain Free? Yes Yes Teaching: Wound Center Dressing Your Wound -Person Taught Patient -Teaching Method Discussion, Demonstration -Response to teaching Verbalize understanding WC - Visit Discharge Discharge Condition Stable Stable Ambulatory Status Ambulatory Ambulatory Transportation Private Auto Private Auto Medication Reconcilliation completed & No provided to patient/care provider Clinical Summary of Care Provided Yes Assessment/Plan Assessment/Plan (1) Open wound of right chest wall: CODE(S): S21.101A - Unspecified open wound of right front wall of thorax without penetration into thoracic cavity, initial encounter QUALIFIERS: Encounter type: subsequent encounter Qualified Code(s): S21.101D - Unspecified open wound of right front wall of thorax without penetration into thoracic cavity, subsequent encounter (2) Nonhealing nonsurgical wound with fat layer exposed: CODE(S): T14.8XXA - Other injury of unspecified body region, initial encounter (3) Obesity: CODE(S): E66.9 - Obesity, unspecified QUALIFIERS: Obesity type: unspecified obesity type Obesity classification: adult class 2 (BMI 35 - 39.9) Serious obesity comorbidity presence: without serious comorbidity Body mass index: BMI 39.0-39.9 Qualified Code(s): E66.9 - Obesity, unspecified; Z68.39 - Body mass index [BMI] 39.0-39.9, adult (4) COPD (chronic obstructive pulmonary disease): CODE(S): J44.9 - Chronic obstructive pulmonary disease, unspecified QUALIFIERS: COPD type: unspecified COPD Qualified Code(s): J44.9 - Chronic obstructive pulmonary disease, unspecified PLAN: Plan Debridement performed today in clinic as annotated above. At home wound-care instructions: Apply Promogran and foam dressing every other day. Keep dressing clean and dry. Off-loading: The patient was instructed to avoid pressure and friction on the affected areas. Reposition every 2 hours at minimum. Avoid prolonged standing and/or dangling of legs. When seated, feet should be elevated at chest level. Frequent ambulation is encouraged. Diet: Patient encouraged to increase protein intake while taking caution to avoid high carbohydrate and/or sugar intake. Labs/cultures/imaging: Follow-up: Return in 1 week for wound care follow up. Return sooner or report to the emergency room should symptoms worsen, or new symptoms arise. Note: [employer] speech recognition renal technician software was used to create portions of this document. Sound-alike and misspelled words, as well as other renal technician errors may be contained in the documentation.
[2023-05-11 10:16] VITALS: BP 165/66; PULSE 78; RESP 18; TEMP 36.2; BMI 39.1
--- NOTE | 2023-05-11 11:04 | PN.PCM_ITS ---
History of Present Illness Date of Service: 05/11/23 Chief Complaint: right lateral chest wound History of Wound: Elsa is a 67 yo woman that presents to the wound center today for evaluation and treatment of a nonhealing wound of her right chest wall from a chest tube. She was hospitalized the end of February and discharged on Mar.24 from [facility] for pneumonia and pleural effusion which need surgical debridement. The wound has not healed since the chest tube was removed Mar.24. She has been applying Bacitracin. She states there is light drainage, no erythema or odor or fever or chills. Subjective Subjective Elsa is here today for follow up of nonhealing wounds at site of chest tube insertion. She did not tolerate the Promogran. It caused pain and burning so she went back to using hydrogel and foam dressing. The area is still open and draining lightly. She denies fever, chills, increased pain or erythema. Objective Data Objective Data Vital Signs: Vital Signs Temp Pulse Resp BP O2 Del Method 97.2 F L 78 18 165/66 H Room Air 05/11/23 10:16 05/11/23 10:16 05/11/23 10:16 05/11/23 10:16 05/04/23 10:33 Oxygen Delivery Method Room Air Weight: 106.594 kg Body Mass Index (BMI) 39.1 Physical Exam Const alert, oriented x3 and no apparent distress General Appearance: cooperative and comfortable HEENT normocephalic and head/scalp atraumatic Resp normal respiratory effort Effort and Inspection: able to speak in complete sentences Cardio regular rate and regular rhythm Skin Wounds: wounds noted Wound Narrative: as in clinical panel Psych mental status grossly normal, thought process normal, cooperative and affect normal Debridement Note Debridement Note Wound debrided: right chest wall Laterality: Right Type of Debridement: Selective debridement Anesthesia Used: 4% Lidocaine Solution and 5% Lidocaine Gel Depth: Down to and including healthy tissue and in the subcutaneous layer Percentage of wound debrided: 100 Instrument Used: - (gauze) Tissue Removed: yellow slough, devitalized tissue Severity: Fat Layer Exposed Amount of bleeding with debridement: Mild Bleeding Controlled with: Compression and gauze Patient tolerated procedure: Patient tolerated procedure well Post-Debridement Measurements and Additional Note: Post-Debridement Measurements/Treatment CHERYL - Nurse 1 - General Ulcer Assessment Start: 04/27/23 10:45 Freq: Status: Active Protocol: TONYAEXT Activity Type Activity Date Activity User E-sign Co-sign Detail Recorded Client Recorded Date Recorded By Document 04/27/23 10:48 RB Desktop 04/27/23 10:54 RB Edit Result 04/27/23 10:48 RB (1) Desktop 04/27/23 11:25 RB Document 05/04/23 10:33 KW Desktop 05/04/23 10:44 KW Document 05/11/23 10:16 RB Desktop 05/11/23 10:18 RB (1) Height => 5 ft 5 in Weight => 106.594 kg Weight in Pounds => 235.0 lbs Body Mass Index (BMI) => 39.1 BMI Classification => Obese BSA - June => 2.12 04/27/23 05/04/23 05/11/23 10:48 10:33 10:16 WC - Today's Visit Information Type of service Initial Visit Follow-up Visit Follow-up Visit (Physician/CREATIVE/ART DIRECTOR (Physician/CREATIVE/ART DIRECTOR ) ) Arrival Mode Ambulatory Ambulatory Ambulatory Transfer Assistance None None Patient Identification Verified (Name & Yes Yes Yes ) Patient Requires Transmission-Based No No Precautions Finger Stick Blood Sugar(mg/dl) (if 121 indicated): Blood Sugar Stated by Patient Height and Weight Height 5 ft 5 in Weight 106.594 kg Weight in Pounds 235.0 lbs Body Mass Index (BMI) 39.1 39.1 39.1 BMI Classification Obese Obese Obese BSA - June 2.12 Vital Signs Temperature (97.8 F-99.1 F) 96.4 F L 97.1 F L 97.2 F L Temperature Source Temporal Temporal Temporal Pulse Rate (60-100) 83 91 78 Pulse Location Monitor Monitor Monitor Respiratory Rate (12-18) 18 18 18 Respiratory rate source Observation Observation Observation Oxygen Delivery Method Room Air Blood Pressure (90/60-120/80) 152/63 H 135/56 H 165/66 H Blood Pressure Mean (mm Hg) 92 82 99 Source Monitor Monitor Monitor Position Semi-Fowlers Semi-Fowlers Semi-Fowlers Blood Pressure Location Left Arm Left Arm Left Arm History Since Last Visit- (Skip if this is Patient's initial visit) Have you changed medications since your No No No last visit? Any new allergies or adverse reactions No No No Had a fall/change in ADL's that may No No No increase risk of falls Signs or symptoms of abuse and/or No No No neglect since last visit Have you been in the hospital since your No No No last visit? Has dressing in place as prescribed Yes Yes Yes Has compression in place as prescribed No N/A No Has offloadiing in place as prescribed No N/A No Experienced any changes in pain level or No No management Left Footwear Regular Shoe Right Footwear Regular Shoe Pain Scale: 0-10 Numeric Is Patient Pain Free? Yes Yes Yes Communication Assessment Preferred language Malay Certified Credit Counselor Required No Able to Read Yes Able to Write Yes Communication Tools None Right Hearing Abillity Normal Left Hearing Abillity Normal Visual Assistive Devices Glasses Teaching Assessment Preferences Verbal,Written, Demonstration Barriers to Learning None Readiness To Learn Excellent Willingness to Engage in Self Management Med Activies Readiness to Engage in Self Management Med Activities Anxiety Level Calm Cooperation Cooperative Perception Coherent Interest in Health Problem Asks Questions Education Importance Acknowledges Need Does Patient Smoke tobacco or other No substances Smoking Status Never smoker Is Patient Diabetic Yes Functional Assessment Recent Decline in Ability to Perform Denies Any Declines Assistive Device With Patient No Culture/Orthodox/Chief Inspector Cultural/Orthodox Needs that may affect No Treatment Plan Would you allow our hospital elevator examiner and adjuster to No meet you for the purpose of spiritual/ emotional support? Chief Inspector to contact place of rastafarian No Teaching: Wound Center *Welcome to the Wound Center -Person Taught Patient -Teaching Method Discussion -Response to teaching Verbalize understanding WC - Nurse 1 - General Ulcer Measurement Start: 04/27/23 10:45 Freq: Status: Active Protocol: Activity Type Activity Date Activity User E-sign Co-sign Detail Recorded Client Recorded Date Recorded By Document 04/27/23 10:48 RB Desktop 04/27/23 10:54 RB Document 05/04/23 10:33 KW Desktop 05/04/23 10:44 KW Document 05/11/23 10:16 RB Desktop 05/11/23 10:18 RB 04/27/23 05/04/23 05/11/23 10:48 10:33 10:16 Wound Center Nurse 1 1. R chest (rib cage) -Combined with other wound No No -Current Size (cm) - Length 0.5 0.5 0.4 -Current Size (cm) - Width 1 0.6 0.5 -Current Size (cm) - Depth 0.1 0.1 0.1 -Total Square Cm 0.5 0.30 0.20 -Photo Taken Yes -Tunneling No No -Undermining/Tunneling No No -Circular Undermining No No -Exudate Amt Medium Small Medium -Exudate Type Serosanguineous Yellow/Green Serosanguineous -Wound Margin Distinct, Distinct, Distinct, Outline Outline Outline Attached Attached Attached -Granulation Amt Medium (34-66%) Medium (34-66%) Medium (34-66%) -Granulation Quality Prosper Red Prosper -Slough/Fibrin Yes Yes -Necrosis Amt Medium (34-66%) Small (1-33%) Medium (34-66%) -Necrotic Tissue Type Adherent Slough Adherent Slough Adherent Slough -Structure Exposed N/A N/A -Texture (Sybil-wound Skin Appearance) Assessed Assessed, Assessed, Localized Edema Scarring -Moisture (Sybil-wound Skin Appearance) Assessed Assessed Assessed -Color (Sybil-wound Skin Appearance) Assessed Assessed Assessed -Temperature (Sybil-wound Skin No Abnormality No Abnormality No Abnormality Appearance) (Pt Warm) (Pt Warm) (Pt Warm) -Tenderness on Palpation (Sybil-wound No No Skin Appearance) -Ulcer Cleansing Wound Cleanser Rinsed/ Wound Cleanser Irrigated with Saline -Foul Odor after Cleansing No No No -Anesthetic Used 5% Lidocaine 5% Lidocaine 5% Lidocaine Gel Gel Gel WC - Nurse 2 - General Ulcer CM Notes Start: 04/27/23 10:45 Freq: Status: Active Protocol: Activity Type Activity Date Activity User E-sign Co-sign Detail Recorded Client Recorded Date Recorded By Document 04/27/23 11:13 Desktop 04/27/23 11:19 Document 05/04/23 10:50 Desktop 05/04/23 10:56 Document 05/11/23 10:33 Desktop 05/11/23 10:38 04/27/23 05/04/23 05/11/23 11:13 10:50 10:33 Wound Center Nurse 2 1. R chest (rib cage) -Time 11:13 10:50 10:33 -Correct Patient Yes Yes Yes -Correct Side, Site, Position Yes Yes Yes -Correct Procedure Yes Yes Yes -Procedure Performed Yes Yes No -Type of Procedure Debridement Debridement -Clinical Debridement Subcutaneous Subcutaneous -Tissue Removed Subcutaneous Subcutaneous -Post Debridement (cm) - Length 0.4 0.4 0.3 -Post Debridement (cm) - Width 0.9 0.5 0.7 -Post Debridement (cm) - Depth 0.1 0.1 0.1 -Total Square (Post) (cm) 0.36 0.20 0.21 -Area of Debridement (cm) - Length 0.4 0.4 -Area of Debridement (cm) - Width 0.9 0.5 -Total Square (Area) (cm) 0.36 0.20 -Tunneling No -Undermining/Tunneling No -Circular Undermining No -Wound/Ulcer Outcome Not Healed Not Healed Not Healed -Ulcer Cleansing Rinsed/ Rinsed/ Rinsed/ Irrigated with Irrigated with Irrigated with Saline Saline Saline -Foul Odor after Cleansing No No No -Bioengineered Tissue No No No -Bleeding Controlled with Pressure Pressure Pressure -Treatment Response Procedure Procedure Procedure Tolerated Well Tolerated Well Tolerated Well -Debridement - Subq, 1st 20sq cm Yes Yes Pain Scale: 0-10 Numeric Is Patient Pain Free? Yes Yes Yes WC - Nurse 3 - General Ulcer D/C NN Start: 04/27/23 10:45 Freq: Status: Active Protocol: Activity Type Activity Date Activity User E-sign Co-sign Detail Recorded Client Recorded Date Recorded By Document 04/27/23 12:27 [id number] 04/27/23 12:28 RB Document 05/04/23 11:01 GM Desktop 05/04/23 11:02 GM Document 05/11/23 10:46 MW Desktop 05/11/23 10:46 MW 04/27/23 05/04/23 05/11/23 12:27 11:01 10:46 Wound Care Center Nurse 3 1. R chest (rib cage) -Ulcer Cleansing Rinsed/ Not Cleansed Rinsed/ Irrigated with Irrigated with Saline Saline -Foul Odor after Cleansing No No -Negative Pressure Wound Therapy N/A -Primary Dressing Applied Mepilex Border Mepilex Border, Aquacel Extra, Promogran Mepilex Border -Other Dressing hydrogel -Aquacel Extra 1 -Mepilex Border 4 1 1 -Promogran 1 Treatment Response Procedure Procedure Tolerated Well Tolerated Well Pain Scale: 0-10 Numeric Is Patient Pain Free? Yes Yes Yes Teaching: Wound Center Dressing Your Wound -Person Taught Patient Patient -Teaching Method Discussion, Discussion Demonstration -Response to teaching Verbalize Verbalize understanding understanding WC - Visit Discharge Discharge Condition Stable Stable Stable Ambulatory Status Ambulatory Ambulatory Ambulatory Transportation Private Auto Private Auto Private Auto Accompanied by self Medication Reconcilliation completed & No No provided to patient/care provider Clinical Summary of Care Provided Yes Yes Assessment/Plan Assessment/Plan (1) Open wound of right chest wall: CODE(S): S21.101A - Unspecified open wound of right front wall of thorax without penetration into thoracic cavity, initial encounter QUALIFIERS: Encounter type: subsequent encounter Qualified Code(s): S21.101D - Unspecified open wound of right front wall of thorax without penetration into thoracic cavity, subsequent encounter (2) Nonhealing nonsurgical wound with fat layer exposed: CODE(S): T14.8XXA - Other injury of unspecified body region, initial encou nter (3) Obesity: CODE(S): E66.9 - Obesity, unspecified QUALIFIERS: Obesity type: unspecified obesity type Obesity classification: adult class 2 (BMI 35 - 39.9) Serious obesity comorbidity presence: without serious comorbidity Body mass index: BMI 39.0-39.9 Qualified Code(s): E66.9 - Obesity, unspecified; Z68.39 - Body mass index [BMI] 39.0-39.9, adult (4) COPD (chronic obstructive pulmonary disease): CODE(S): J44.9 - Chronic obstructive pulmonary disease, unspecified QUALIFIERS: COPD type: unspecified COPD Qualified Code(s): J44.9 - Chronic obstructive pulmonary disease, unspecified PLAN: Plan Debridement performed today in clinic as annotated above. At home wound-care instructions: Apply hydrogel, then Aquacel extra and foam dressing every other day. Keep dressing clean and dry. Off-loading: The patient was instructed to avoid pressure and friction on the affected areas. Reposition every 2 hours at minimum. Avoid prolonged standing and/or dangling of legs. When seated, feet should be elevated at chest level. Frequent ambulation is encouraged. Diet: Patient encouraged to increase protein intake while taking caution to avoid high carbohydrate and/or sugar intake. Labs/cultures/imaging: Follow-up: Return in 1 week for wound care follow up. Return sooner or report to the emergency room should symptoms worsen, or new symptoms arise. Note: [employer] speech recognition learning and development administrator software was used to create portions of this document. Sound-alike and misspelled words, as well as other learning and development administrator errors may be contained in the documentation.
[2023-05-18 08:30] VITALS: BP 138/69; PULSE 74; RESP 18; TEMP 35.8; BMI 39.1
--- NOTE | 2023-05-18 13:53 | PCM.WC.PN ---
History of Present Illness Date of Service: 05/18/23 Chief Complaint: right lateral chest wound History of Wound: Elsa is a 67 yo woman that presents to the wound center today for evaluation and treatment of a nonhealing wound of her right chest wall from a chest tube. She was hospitalized the end of February and discharged on Mar.24 from [facility] for pneumonia and pleural effusion which need surgical debridement. The wound has not healed since the chest tube was removed Mar.24. She has been applying Bacitracin. She states there is light drainage, no erythema or odor or fever or chills. Subjective Subjective Elsa is here today for follow up of nonhealing wounds at site of chest tube insertion. She did ok with Aquacel but threw it away accidentally and she returned to using Promogran using hydrogel and foam dressing. The area is still open and draining lightly. She denies fever, chills, increased pain or erythema. Objective Data Objective Data Vital Signs: Vital Signs Temp Pulse Resp BP O2 Del Method 96.5 F L 74 18 138/69 H Room Air 05/18/23 08:30 05/18/23 08:30 05/18/23 08:30 05/18/23 08:30 05/18/23 08:30 Oxygen Delivery Method Room Air Weight: 106.594 kg Body Mass Index (BMI) 39.1 Physical Exam Const alert, oriented x3 and no apparent distress General Appearance: cooperative and comfortable HEENT normocephalic and head/scalp atraumatic Resp normal respiratory effort Effort and Inspection: able to speak in complete sentences Cardio regular rate and regular rhythm Skin Wounds: wounds noted Wound Narrative: as in clinical panel Psych mental status grossly normal, thought process normal, cooperative and affect normal Debridement Note Debridement Note Wound debrided: right chest wall Laterality: Right Type of Debridement: Excisional debridement Anesthesia Used: 4% Lidocaine Solution and 5% Lidocaine Gel Depth: Down to and including healthy tissue and in the subcutaneous layer Percentage of wound debrided: 100 Instrument Used: 3mm curette Tissue Removed: yellow slough, devitalized tissue Severity: Fat Layer Exposed Amount of bleeding with debridement: Mild Bleeding Controlled with: Compression and gauze Patient tolerated procedure: Patient tolerated procedure well Post-Debridement Measurements and Additional Note: Post-Debridement Measurements/Treatment WC - Nurse 1 - General Ulcer Assessment Start: 04/27/23 10:45 Freq: Status: Active Protocol: WC.LOWEXT Activity Type Activity Date Activity User E-sign Co-sign Detail Recorded Client Recorded Date Recorded By Document 04/27/23 10:48 RB Desktop 04/27/23 10:54 RB Edit Result 04/27/23 10:48 RB (1) Desktop 04/27/23 11:25 RB Document 05/04/23 10:33 KW Desktop 05/04/23 10:44 KW Document 05/11/23 10:16 RB Desktop 05/11/23 10:18 RB Document 05/18/23 08:30 MT Desktop 05/18/23 08:38 MT (1) Height => 5 ft 5 in Weight => 106.594 kg Weight in Pounds => 235.0 lbs Body Mass Index (BMI) => 39.1 BMI Classification => Obese BSA - June => 2.12 04/27/23 05/04/23 05/11/23 10:48 10:33 10:16 WC - Today's Visit Information Type of service Initial Visit Follow-up Visit Follow-up Visit (Physician/CASINO OPERATIONS SUPERVISOR (Physician/CASINO OPERATIONS SUPERVISOR ) ) Arrival Mode Ambulatory Ambulatory Ambulatory Transfer Assistance None None Accompanied by Patient Identification Verified (Name & Yes Yes Yes ) Patient Requires Transmission-Based No No Precautions Safety Precautions Finger Stick Blood Sugar(mg/dl) (if 121 indicated): Blood Sugar Stated by Patient Height and Weight Height 5 ft 5 in Weight 106.594 kg Weight in Pounds 235.0 lbs Body Mass Index (BMI) 39.1 39.1 39.1 BMI Classification Obese Obese Obese BSA - June 2.12 Vital Signs Temperature (97.8 F-99.1 F) 96.4 F L 97.1 F L 97.2 F L Temperature Source Temporal Temporal Temporal Pulse Rate (60-100) 83 91 78 Pulse Location Monitor Monitor Monitor Respiratory Rate (12-18) 18 18 18 Respiratory rate source Observation Observation Observation Oxygen Delivery Method Room Air Blood Pressure (90/60-120/80) 152/63 H 135/56 H 165/66 H Blood Pressure Mean (mm Hg) 92 82 99 Source Monitor Monitor Monitor Position Semi-Fowlers Semi-Fowlers Semi-Fowlers Blood Pressure Location Left Arm Left Arm Left Arm History Since Last Visit- (Skip if this is Patient's initial visit) Have you changed medications since your No No No last visit? Any new allergies or adverse reactions No No No Had a fall/change in ADL's that may No No No increase risk of falls Signs or symptoms of abuse and/or No No No neglect since last visit Have you been in the hospital since your No No No last visit? Has dressing in place as prescribed Yes Yes Yes Has compression in place as prescribed No N/A No Has offloadiing in place as prescribed No N/A No Experienced any changes in pain level or No No management Left Footwear Regular Shoe Right Footwear Regular Shoe Pain Scale: 0-10 Numeric Is Patient Pain Free? Yes Yes Yes Communication Assessment Preferred language Slovak Repairer Hairspring Required No Able to Read Yes Able to Write Yes Communication Tools None Right Hearing Abillity Normal Left Hearing Abillity Normal Visual Assistive Devices Glasses Teaching Assessment Preferences Verbal,Written, Demonstration Barriers to Learning None Readiness To Learn Excellent Willingness to Engage in Self Management Med Activies Readiness to Engage in Self Management Med Activities Anxiety Level Calm Cooperation Cooperative Perception Coherent Interest in Health Problem Asks Questions Education Importance Acknowledges Need Does Patient Smoke tobacco or other No substances Smoking Status Never smoker Is Patient Diabetic Yes Functional Assessment Recent Decline in Ability to Perform Denies Any Declines Assistive Device With Patient No Culture/Latter-Day/Box Person Cultural/Latter-Day Needs that may affect No Treatment Plan Would you allow our hospital signaler to No meet you for the purpose of spiritual/ emotional support? Box Person to contact place of zoroastrian No Teaching: Wound Center *Welcome to the Wound Center -Person Taught Patient -Teaching Method Discussion -Response to teaching Verbalize understanding 05/18/23 08:30 WC - Today's Visit Information Type of service Follow-up Visit (Physician/CASINO OPERATIONS SUPERVISOR ) Arrival Mode Ambulatory Transfer Assistance Accompanied by self Patient Identification Verified (Name & Yes ) Patient Requires Transmission-Based Precautions Safety Precautions Fall Prevention Finger Stick Blood Sugar(mg/dl) (if indicated): Blood Sugar Height and Weight Height Weight Weight in Pounds Body Mass Index (BMI) 39.1 BMI Classification Obese BSA - June Vital Signs Temperature (97.8 F-99.1 F) 96.5 F L Temperature Source Temporal Pulse Rate (60-100) 74 Pulse Location Monitor Respiratory Rate (12-18) 18 Respiratory rate source Observation Oxygen Delivery Method Room Air Blood Pressure (90/60-120/80) 138/69 H Blood Pressure Mean (mm Hg) 92 Source Monitor Position Sitting Blood Pressure Location Left Arm History Since Last Visit- (Skip if this is Patient's initial visit) Have you changed medications since your last visit? Any new allergies or adverse reactions Had a fall/change in ADL's that may increase risk of falls Signs or symptoms of abuse and/or neglect since last visit Have you been in the hospital since your last visit? Has dressing in place as prescribed Yes Has compression in place as prescribed N/A Has offloadiing in place as prescribed N/A Experienced any changes in pain level or No management Left Footwear Regular Shoe Right Footwear Regular Shoe Pain Scale: 0-10 Numeric Is Patient Pain Free? Yes Communication Assessment Preferred microfilm technician Required Able to Read Able to Write Communication Tools Right Hearing Abillity Left Hearing Abillity Visual Assistive Devices Teaching Assessment Preferences Barriers to Learning Readiness To Learn Willingness to Engage in Self Management Activies Readiness to Engage in Self Management Activities Anxiety Level Cooperation Perception Interest in Health Problem Education Importance Does Patient Smoke tobacco or other substances Smoking Status Is Patient Diabetic Functional Assessment Recent Decline in Ability to Perform Assistive Device With Patient Culture/Latter-Day/Box Person Cultural/Latter-Day Needs that may affect Treatment Plan Would you allow our hospital signaler to meet you for the purpose of spiritual/ emotional support? Box Person to contact place of zoroastrian Teaching: Wound Center *Welcome to the Wound Center -Person Taught -Teaching Method -Response to teaching WC - Nurse 1 - General Ulcer Measurement Start: 04/27/23 10:45 Freq: Status: Active Protocol: Activity Type Activity Date Activity User E-sign Co-sign Detail Recorded Client Recorded Date Recorded By Document 04/27/23 10:48 RB Desktop 04/27/23 10:54 RB Document 05/04/23 10:33 KW Desktop 05/04/23 10:44 KW Document 05/11/23 10:16 RB Desktop 05/11/23 10:18 RB Document 05/18/23 08:30 MT Desktop 05/18/23 08:38 MT 04/27/23 05/04/23 05/11/23 10:48 10:33 10:16 Wound Center Nurse 1 1. R chest (rib cage) -Combined with other wound No No -Current Size (cm) - Length 0.5 0.5 0.4 -Current Size (cm) - Width 1 0.6 0.5 -Current Size (cm) - Depth 0.1 0.1 0.1 -Total Square Cm 0.5 0.30 0.20 -Photo Taken Yes -Tunneling No No -Undermining/Tunneling No No -Circular Undermining No No -Exudate Amt Medium Small Medium -Exudate Type Serosanguineous Yellow/Green Serosanguineous -Wound Margin Distinct, Distinct, Distinct, Outline Outline Outline Attached Attached Attached -Granulation Amt Medium (34-66%) Medium (34-66%) Medium (34-66%) -Granulation Quality Jardine Red Jardine -Slough/Fibrin Yes Yes -Necrosis Amt Medium (34-66%) Small (1-33%) Medium (34-66%) -Necrotic Tissue Type Adherent Slough Adherent Slough Adherent Slough -Structure Exposed N/A N/A -Texture (Sybil-wound Skin Appearance) Assessed Assessed, Assessed, Localized Edema Scarring -Moisture (Sybil-wound Skin Appearance) Assessed Assessed Assessed -Color (Sybil-wound Skin Appearance) Assessed Assessed Assessed -Temperature (Sybil-wound Skin No Abnormality No Abnormality No Abnormality Appearance) (Pt Warm) (Pt Warm) (Pt Warm) -Tenderness on Palpation (Sybil-wound No No Skin Appearance) -Ulcer Cleansing Wound Cleanser Rinsed/ Wound Cleanser Irrigated with Saline -Foul Odor after Cleansing No No No -Anesthetic Used 5% Lidocaine 5% Lidocaine 5% Lidocaine Gel Gel Gel Lower Limb Edema Present 05/18/23 08:30 Wound Center Nurse 1 1. R chest (rib cage) -Combined with other wound -Current Size (cm) - Length 0.9 -Current Size (cm) - Width 1.6 -Current Size (cm) - Depth 0.1 -Total Square Cm 1.44 -Photo Taken -Tunneling No -Undermining/Tunneling No -Circular Undermining No -Exudate Amt Small -Exudate Type Serous -Wound Margin Flat & Intact -Granulation Amt Large (67-100%) -Granulation Quality Pale,Jardine,Red -Slough/Fibrin -Necrosis Amt None Present (0 %) -Necrotic Tissue Type -Structure Exposed -Texture (Sybil-wound Skin Appearance) Assessed -Moisture (Sybil-wound Skin Appearance) Assessed -Color (Sybil-wound Skin Appearance) Assessed -Temperature (Sybil-wound Skin No Abnormality Appearance) (Pt Warm) -Tenderness on Palpation (Sybil-wound No Skin Appearance) -Ulcer Cleansing -Foul Odor after Cleansing No -Anesthetic Used 5% Lidocaine Gel Lower Limb Edema Present NA WC - Nurse 2 - General Ulcer CM Notes Start: 04/27/23 10:45 Freq: Status: Active Protocol: Activity Type Activity Date Activity User E-sign Co-sign Detail Recorded Client Recorded Date Recorded By Document 04/27/23 11:13 GM Desktop 04/27/23 11:19 GM Document 05/04/23 10:50 GM Desktop 05/04/23 10:56 GM Document 05/11/23 10:33 GM Desktop 05/11/23 10:38 GM Document 05/18/23 09:05 GM Desktop 05/18/23 09:16 GM 04/27/23 05/04/23 05/11/23 11:13 10:50 10:33 Wound Center Nurse 2 1. R chest (rib cage) -Time 11:13 10:50 10:33 -Correct Patient Yes Yes Yes -Correct Side, Site, Position Yes Yes Yes -Correct Procedure Yes Yes Yes -Procedure Performed Yes Yes No -Type of Procedure Debridement Debridement -Clinical Debridement Subcutaneous Subcutaneous -Tissue Removed Subcutaneous Subcutaneous -Post Debridement (cm) - Length 0.4 0.4 0.3 -Post Debridement (cm) - Width 0.9 0.5 0.7 -Post Debridement (cm) - Depth 0.1 0.1 0.1 -Total Square (Post) (cm) 0.36 0.20 0.21 -Area of Debridement (cm) - Length 0.4 0.4 -Area of Debridement (cm) - Width 0.9 0.5 -Total Square (Area) (cm) 0.36 0.20 -Tunneling No -Undermining/Tunneling No -Circular Undermining No -Wound/Ulcer Outcome Not Healed Not Healed Not Healed -Ulcer Cleansing Rinsed/ Rinsed/ Rinsed/ Irrigated with Irrigated with Irrigated with Saline Saline Saline -Foul Odor after Cleansing No No No -Bioengineered Tissue No No No -Bleeding Controlled with Pressure Pressure Pressure -Treatment Response Procedure Procedure Procedure Tolerated Well Tolerated Well Tolerated Well -Debridement - Subq, 1st 20sq cm Yes Yes Pain Scale: 0-10 Numeric Is Patient Pain Free? Yes Yes Yes 05/18/23 09:05 Wound Center Nurse 2 1. R chest (rib cage) -Time 09:05 -Correct Patient Yes -Correct Side, Site, Position Yes -Correct Procedure Yes -Procedure Performed Yes -Type of Procedure Debridement -Clinical Debridement Subcutaneous -Tissue Removed Subcutaneous -Post Debridement (cm) - Length 0.8 -Post Debridement (cm) - Width 1.4 -Post Debridement (cm) - Depth 0.1 -Total Square (Post) (cm) 1.12 -Area of Debridement (cm) - Length 0.8 -Area of Debridement (cm) - Width 1.4 -Total Square (Area) (cm) 1.12 -Tunneling No -Undermining/Tunneling No -Circular Undermining No -Wound/Ulcer Outcome Not Healed -Ulcer Cleansing Rinsed/ Irrigated with Saline -Foul Odor after Cleansing No -Bioengineered Tissue No -Bleeding Controlled with Pressure -Treatment Response Procedure Tolerated Well -Debridement - Subq, 1st 20sq cm Yes Pain Scale: 0-10 Numeric Is Patient Pain Free? Yes - Nurse 3 - General Ulcer D/C NN Start: 04/27/23 10:45 Freq: Status: Active Protocol: Activity Type Activity Date Activity User E-sign Co-sign Detail Recorded Client Recorded Date Recorded By Document 04/27/23 12:27 RB [id number] 04/27/23 12:28 RB Document 05/04/23 11:01 Desktop 05/04/23 11:02 GM Document 05/11/23 10:46 MW Desktop 05/11/23 10:46 MW Document 05/18/23 09:25 RB Desktop 05/18/23 09:25 RB 04/27/23 05/04/23 05/11/23 12:27 11:01 10:46 Wound Care Center Nurse 3 1. R chest (rib cage) -Ulcer Cleansing Rinsed/ Not Cleansed Rinsed/ Irrigated with Irrigated with Saline Saline -Foul Odor after Cleansing No No -Negative Pressure Wound Therapy N/A -Primary Dressing Applied Mepilex Border Mepilex Border, Aquacel Extra, Promogran Mepilex Border -Other Dressing hydrogel -Aquacel Extra 1 -Mepilex Border 4 1 1 -Promogran 1 Treatment Response Procedure Procedure Tolerated Well Tolerated Well Pain Scale: 0-10 Numeric Is Patient Pain Free? Yes Yes Yes Teaching: Wound Center Dressing Your Wound -Person Taught Patient Patient -Teaching Method Discussion, Discussion Demonstration -Response to teaching Verbalize Verbalize understanding understanding WC - Visit Discharge Discharge Condition Stable Stable Stable Ambulatory Status Ambulatory Ambulatory Ambulatory Transportation Private Auto Private Auto Private Auto Accompanied by self Medication Reconcilliation completed & No No provided to patient/care provider Clinical Summary of Care Provided Yes Yes 05/18/23 09:25 Wound Care Center Nurse 3 1. R chest (rib cage) -Ulcer Cleansing Rinsed/ Irrigated with Saline -Foul Odor after Cleansing -Negative Pressure Wound Therapy -Primary Dressing Applied Aquacel Extra, Mepilex Border -Other Dressing -Aquacel Extra 1 -Mepilex Border 1 -Promogran Treatment Response Procedure Tolerated Well Pain Scale: 0-10 Numeric Is Patient Pain Free? Yes Teaching: Wound Center Dressing Your Wound -Person Taught Patient -Teaching Method Discussion, Demonstration -Response to teaching Verbalize understanding WC - Visit Discharge Discharge Condition Stable Ambulatory Status Ambulatory Transportation Private Auto Accompanied by Medication Reconcilliation completed & No provided to patient/care provider Clinical Summary of Care Provided Yes Assessment/Plan Assessment/Plan (1) Open wound of right chest wall: CODE(S): S21.101A - Unspecified open wound of right front wall of thorax without penetration into thoracic cavity, initial encounter QUALIFIERS: Encounter type: subsequent encounter Qualified Code(s): S21.101D - Unspecified open wound of right front wall of thorax without penetration into thoracic cavity, subsequent encounter (2) Nonhealing nonsurgical wound with fat layer exposed: CODE(S): T14.8XXA - Other injury of unspecified body region, initial encounter (3) Obesity: CODE(S): E66.9 - Obesity, unspecified QUALIFIERS: Obesity type: unspecified obesity type Obesity classification: adult class 2 (BMI 35 - 39.9) Serious obesity comorbidity presence: without serious comorbidity Body mass index: BMI 39.0-39.9 Qualified Code(s): E66.9 - Obesity, unspecified; Z68.39 - Body mass index [BMI] 39.0-39.9, adult (4) COPD (chronic obstructive pulmonary disease): CODE(S): J44.9 - Chronic obstructive pulmonary disease, unspecified QUALIFIERS: COPD type: unspecified COPD Qualified Code(s): J44.9 - Chronic obstructive pulmonary disease, unspecified PLAN: Plan Debridement performed today in clinic as annotated above. At home wound-care instructions: Apply Aquacel extra and foam dressing every other day. Keep dressing clean and dry. Off-loading: The patient was instructed to avoid pressure and friction on the affected areas. Reposition every 2 hours at minimum. Avoid prolonged standing and/or dangling of legs. When seated, feet should be elevated at chest level. Frequent ambulation is encouraged. Diet: Patient encouraged to increase protein intake while taking caution to avoid high carbohydrate and/or sugar intake. Labs/cultures/imaging: Wound culture taken. Follow-up: Return in 1 week for wound care follow up. Return sooner or report to the emergency room should symptoms worsen, or new symptoms arise. Note: The [employer] speech recognition licensed professional counselor software was used to create portions of this document. Sound-alike and misspelled words, as well as other licensed professional counselor errors may be contained in the documentation.
== END 2023-05-22 23:59 | disposition home or self-care (01) ==
LOC: WC 08:30
PROVIDERS: PCP Family Medicine; Referring Provider Internal Medicine Pulmonary Disease; Visit Provider Family Medicine
DX: T81.89XA Other complications of procedures, not elsewhere classified, initial encounter (principal); J44.9 Chronic obstructive pulmonary disease, unspecified; E11.40 Type 2 diabetes mellitus with diabetic neuropathy, unspecified; S21.101A Unspecified open wound of right front wall of thorax without penetration into thoracic cavity, initial encounter; Y83.8 Other surgical procedures as the cause of abnormal reaction of the patient, or of later complication, without mention of misadventure at the time of the procedure; I10 Essential (primary) hypertension; E78.00 Pure hypercholesterolemia, unspecified; E66.9 Obesity, unspecified; Z68.39 Body mass index [BMI] 39.0-39.9, adult; Z79.84 Long term (current) use of oral hypoglycemic drugs; Z79.01 Long term (current) use of anticoagulants; Z79.52 Long term (current) use of systemic steroids; Z79.899 Other long term (current) drug therapy; Z87.891 Personal history of nicotine dependence
CPT/HCPCS: 11042; 87070; 87075; 87077; 87186; 87205; 99213; G0463

== ENCOUNTER 2023-06-08 08:30 | Outpatient (RCR) | payer MEDICARE, OTHER, SELFPAY ==
[2023-05-23 00:24] VITALS: BP 138/69; PULSE 74; RESP 18; TEMP 35.8; BMI 39.1
[2023-05-25 09:18] VITALS: BP 151/68; PULSE 83; RESP 16; TEMP 35.9; BMI 39.1
--- NOTE | 2023-05-25 14:20 | PCM.WC.PN ---
History of Present Illness Date of Service: 05/25/23 Chief Complaint: right lateral chest wound History of Wound: Elsa is a 67 yo woman that presents to the wound center today for evaluation and treatment of a nonhealing wound of her right chest wall from a chest tube. She was hospitalized the end of February and discharged on Mar.24 from [facility] for pneumonia and pleural effusion which need surgical debridement. The wound has not healed since the chest tube was removed Mar.24. She has been applying Bacitracin. She states there is light drainage, no erythema or odor or fever or chills. Subjective Subjective Elsa is here today for follow up of nonhealing wounds at site of chest tube insertion. She has been tolerating Aquacel and foam dressing. The area is still open and draining moderately. Wound culture was positive for Prevotella anaerobe and Staph epidermidis. She was started on Clindamycin and is tolerating this well. She denies fever, chills, increased pain or erythema. Objective Data Objective Data Vital Signs: Vital Signs Temp Pulse Resp BP O2 Del Method 96.6 F L 83 16 151/68 H Room Air 05/25/23 09:18 05/25/23 09:18 05/25/23 09:18 05/25/23 09:18 05/25/23 09:18 Oxygen Delivery Method Room Air Weight: 106.594 kg Body Mass Index (BMI) 39.1 Physical Exam Const alert, oriented x3 and no apparent distress General Appearance: cooperative and comfortable HEENT normocephalic and head/scalp atraumatic Resp normal respiratory effort Effort and Inspection: able to speak in complete sentences Cardio regular rate and regular rhythm Skin Wounds: wounds noted Wound Narrative: as in clinical panel Psych mental status grossly normal, thought process normal, cooperative and affect normal Debridement Note Debridement Note Wound debrided: right chest wall Laterality: Right Type of Debridement: Excisional debridement Anesthesia Used: 4% Lidocaine Solution and 5% Lidocaine Gel Depth: Down to and including healthy tissue and in the subcutaneous layer Percentage of wound debrided: 100 Instrument Used: 3mm curette Tissue Removed: yellow slough, devitalized tissue Severity: Fat Layer Exposed Amount of bleeding with debridement: Mild Bleeding Controlled with: Compression and gauze Patient tolerated procedure: Patient tolerated procedure well Post-Debridement Measurements and Additional Note: Post-Debridement Measurements/Treatment WC - Nurse 1 - General Ulcer Assessment Start: 05/25/23 09:18 Freq: Status: Active Protocol: DARRYL Activity Type Activity Date Activity User E-sign Co-sign Detail Recorded Client Recorded Date Recorded By Document 05/25/23 09:18 [facility] [employer] 05/25/23 09:27 [facility] 05/25/23 09:18 - Today's Visit Information Type of service 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 ) Arrival Mode Ambulatory Transfer Assistance None Patient Identification Verified (Name & Yes ) Patient Requires Transmission-Based No Precautions Height and Weight Body Mass Index (BMI) 39.1 BMI Classification Obese Vital Signs Temperature (97.8 F-99.1 F) 96.6 F L Temperature Source Temporal Pulse Rate (60-100) 83 Pulse Location Monitor Respiratory Rate (12-18) 16 Respiratory rate source Observation Oxygen Delivery Method Room Air Blood Pressure (90/60-120/80) 151/68 H Blood Pressure Mean (mm Hg) 95 Source Monitor Position Sitting Blood Pressure Location Right Arm History Since Last Visit- (Skip if this is Patient's initial visit) Have you changed medications since your No last visit? Any new allergies or adverse reactions No Had a fall/change in ADL's that may No increase risk of falls Signs or symptoms of abuse and/or No neglect since last visit Have you been in the hospital since your No last visit? Has dressing in place as prescribed Yes Has compression in place as prescribed N/A Has offloadiing in place as prescribed N/A Experienced any changes in pain level or No management Left Footwear Regular Shoe Right Footwear Regular Shoe Pain Scale: 0-10 Numeric Is Patient Pain Free? Yes - Nurse 1 - General Ulcer Measurement Start: 05/25/23 09:18 Freq: Status: Active Protocol: Activity Type Activity Date Activity User E-sign Co-sign Detail Recorded Client Recorded Date Recorded By Document 05/25/23 09:18 [facility] [employer] 05/25/23 09:27 [facility] 05/25/23 09:18 Wound Center Nurse 1 1. R chest (rib cage) -Combined with other wound No -Current Size (cm) - Length 0.6 -Current Size (cm) - Width 1 -Current Size (cm) - Depth 0.1 -Total Square Cm 0.6 -Photo Taken No -Tunneling No -Undermining/Tunneling No -Circular Undermining No -Exudate Amt Medium -Exudate Type Serosanguineous -Wound Margin Distinct, Outline Attached -Granulation Amt Large (67-100%) -Granulation Quality Red -Slough/Fibrin No -Necrosis Amt None Present (0 %) -Texture (Sybil-wound Skin Appearance) Assessed, Scarring -Moisture (Sybil-wound Skin Appearance) Assessed -Color (Sybil-wound Skin Appearance) Assessed -Temperature (Sybil-wound Skin No Abnormality Appearance) (Pt Warm) -Tenderness on Palpation (Sybil-wound No Skin Appearance) -Ulcer Cleansing Rinsed/ Irrigated with Saline -Foul Odor after Cleansing No -Anesthetic Used 5% Lidocaine Gel - Nurse 2 - General Ulcer CM Notes Start: 05/25/23 09:18 Freq: Status: Active Protocol: Activity Type Activity Date Activity User E-sign Co-sign Detail Recorded Client Recorded Date Recorded By Document 05/25/23 10:00 Desktop 05/25/23 10:02 05/25/23 10:00 Wound Center Nurse 2 -Time 10:00 -Correct Patient Yes -Correct Side, Site, Position Yes -Correct Procedure Yes -Procedure Performed No -Type of Procedure Debridement -Post Debridement (cm) - Length 0.6 -Post Debridement (cm) - Width 1.0 -Post Debridement (cm) - Depth 0.1 -Total Square (Post) (cm) 0.60 -Area of Debridement (cm) - Length 0.6 -Area of Debridement (cm) - Width 1.0 -Total Square (Area) (cm) 0.60 -Wound/Ulcer Outcome Not Healed -Ulcer Cleansing Rinsed/ Irrigated with Saline -Foul Odor after Cleansing No Pain Scale: 0-10 Numeric Is Patient Pain Free? Yes - Nurse 3 - General Ulcer D/C NN Start: 05/25/23 09:18 Freq: Status: Active Protocol: Activity Type Activity Date Activity User E-sign Co-sign Detail Recorded Client Recorded Date Recorded By Document 05/25/23 10:14 RB Desktop 05/25/23 10:15 RB 05/25/23 10:14 Wound Care Center Nurse 3 1. R chest (rib cage) -Ulcer Cleansing Rinsed/ Irrigated with Saline -Primary Dressing Applied Aquacel Extra, Mepilex Border -Aquacel Extra 1 -Mepilex Border 1 Treatment Response Procedure Tolerated Well Pain Scale: 0-10 Numeric Is Patient Pain Free? Yes WC - Visit Discharge Discharge Condition Stable Ambulatory Status Ambulatory Transportation Private Auto Medication Reconcilliation completed & No provided to patient/care provider Clinical Summary of Care Provided Yes Assessment/Plan Assessment/Plan (1) Open wound of right chest wall: CODE(S): S21.101A - Unspecified open wound of right front wall of thorax without penetration into thoracic cavity, initial encounter QUALIFIERS: Encounter type: subsequent encounter Qualified Code(s): S21.101D - Unspecified open wound of right front wall of thorax without penetration into thoracic cavity, subsequent encounter (2) Nonhealing nonsurgical wound with fat layer exposed: CODE(S): T14.8XXA - Other injury of unspecified body region, initial encounter (3) Obesity: CODE(S): E66.9 - Obesity, unspecified QUALIFIERS: Obesity type: unspecified obesity type Obesity classification: adult class 2 (BMI 35 - 39.9) Serious obesity comorbidity presence: without serious comorbidity Body mass index: BMI 39.0-39.9 Qualified Code(s): E66.9 - Obesity, unspecified; Z68.39 - Body mass index [BMI] 39.0-39.9, adult (4) COPD (chronic obstructive pulmonary disease): CODE(S): J44.9 - Chronic obstructive pulmonary disease, unspecified QUALIFIERS: COPD type: unspecified COPD Qualified Code(s): J44.9 - Chronic obstructive pulmonary disease, unspecified (5) Ulcer of chest wall with fat layer exposed: CODE(S): L98.492 - Non-pressure chronic ulcer of skin of other sites with fat layer exposed PLAN: Plan Debridement performed today in clinic as annotated above. At home wound-care instructions: Apply Aquacel extra and foam dressing every other day. Keep dressing clean and dry. Off-loading: The patient was instructed to avoid pressure and friction on the affected areas. Reposition every 2 hours at minimum. Avoid prolonged standing and/or dangling of legs. When seated, feet should be elevated at chest level. Frequent ambulation is encouraged. Diet: Patient encouraged to increase protein intake while taking caution to avoid high carbohydrate and/or sugar intake. Labs/cultures/imaging: Wound culture positive for Prevotella and Staph epidermidis, taking Clindamycin. Follow-up: Return in 1 week for wound care follow up. Return sooner or report to the emergency room should symptoms worsen, or new symptoms arise. Note: [employer] speech recognition patient support tech software was used to create portions of this document. Sound-alike and misspelled words, as well as other patient support tech errors may be contained in the documentation.
[2023-06-01 10:02] VITALS: BP 140/60; PULSE 87; RESP 18; TEMP 35.8; BMI 39.1
--- NOTE | 2023-06-01 10:26 | PCM.WC.PN ---
History of Present Illness Date of Service: 06/01/23 Chief Complaint: right lateral chest wound History of Wound: Elsa is a 67 yo woman that presents to the wound center today for evaluation and treatment of a nonhealing wound of her right chest wall from a chest tube. She was hospitalized the end of February and discharged on Mar.24 from [facility] for pneumonia and pleural effusion which need surgical debridement. The wound has not healed since the chest tube was removed Mar.24. She has been applying Bacitracin. She states there is light drainage, no erythema or odor or fever or chills. Subjective Subjective Elsa is here today for follow up of nonhealing wounds at site of chest tube insertion. She has been tolerating Aquacel and foam dressing. The area is still open and draining moderately. Wound culture was positive for Prevotella anaerobe and Staph epidermidis. She was started on Clindamycin and is tolerating this well. She denies fever, chills, increased pain or erythema. Objective Data Objective Data Vital Signs: Vital Signs Temp Pulse Resp BP O2 Del Method 96.4 F L 87 18 140/60 H Room Air 06/01/23 10:02 06/01/23 10:02 06/01/23 10:02 06/01/23 10:02 05/25/23 09:18 Oxygen Delivery Method Room Air Weight: 106.594 kg Body Mass Index (BMI) 39.1 Physical Exam Const alert, oriented x3 and no apparent distress General Appearance: cooperative and comfortable HEENT normocephalic and head/scalp atraumatic Resp normal respiratory effort Effort and Inspection: able to speak in complete sentences Cardio regular rate and regular rhythm Skin Wounds: wounds noted Wound Narrative: as in clinical panel Psych mental status grossly normal, thought process normal, cooperative and affect normal Debridement Note Debridement Note Post-Debridement Measurements and Additional Note: Post-Debridement Measurements/Treatment WC - Nurse 1 - General Ulcer Assessment Start: 05/25/23 09:18 Freq: Status: Active Protocol: DARRYL Activity Type Activity Date Activity User E-sign Co-sign Detail Recorded Client Recorded Date Recorded By Document 05/25/23 09:18 [facility] Desktop 05/25/23 09:27 BMF Document 06/01/23 10:02 RB Desktop 06/01/23 10:03 RB 05/25/23 06/01/23 09:18 10:02 - Today's Visit Information Type of service Follow-up Visit 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 ) ) Arrival Mode Ambulatory Ambulatory Transfer Assistance None None Patient Identification Verified (Name & Yes Yes ) Patient Requires Transmission-Based No No Precautions Height and Weight Body Mass Index (BMI) 39.1 39.1 BMI Classification Obese Obese Vital Signs Temperature (97.8 F-99.1 F) 96.6 F L 96.4 F L Temperature Source Temporal Temporal Pulse Rate (60-100) 83 87 Pulse Location Monitor Monitor Respiratory Rate (12-18) 16 18 Respiratory rate source Observation Observation Oxygen Delivery Method Room Air Blood Pressure (90/60-120/80) 151/68 H 140/60 H Blood Pressure Mean (mm Hg) 95 86 Source Monitor Monitor Position Sitting Semi-Fowlers Blood Pressure Location Right Arm Left Arm History Since Last Visit- (Skip if this is Patient's initial visit) Have you changed medications since your No No last visit? Any new allergies or adverse reactions No No Had a fall/change in ADL's that may No No increase risk of falls Signs or symptoms of abuse and/or No No neglect since last visit Have you been in the hospital since your No No last visit? Has dressing in place as prescribed Yes Yes Has compression in place as prescribed N/A No Has offloadiing in place as prescribed N/A No Experienced any changes in pain level or No No management Left Footwear Regular Shoe Right Footwear Regular Shoe Pain Scale: 0-10 Numeric Is Patient Pain Free? Yes Yes - Nurse 1 - General Ulcer Measurement Start: 05/25/23 09:18 Freq: Status: Active Protocol: Activity Type Activity Date Activity User E-sign Co-sign Detail Recorded Client Recorded Date Recorded By Document 05/25/23 09:18 [facility] Desktop 05/25/23 09:27 BM Document 06/01/23 10:02 RB Desktop 06/01/23 10:03 RB 05/25/23 06/01/23 09:18 10:02 Wound Center Nurse 1 1. R chest (rib cage) -Combined with other wound No No -Current Size (cm) - Length 0.6 0.5 -Current Size (cm) - Width 1 0.6 -Current Size (cm) - Depth 0.1 0.1 -Total Square Cm 0.6 0.30 -Photo Taken No Yes -Tunneling No No -Undermining/Tunneling No No -Circular Undermining No No -Exudate Amt Medium Medium -Exudate Type Serosanguineous Serosanguineous -Wound Margin Distinct, Distinct, Outline Outline Attached Attached -Granulation Amt Large (67-100%) Medium (34-66%) -Granulation Quality Red [place] -Slough/Fibrin No Yes -Necrosis Amt None Present (0 Medium (34-66%) %) -Necrotic Tissue Type Adherent Slough -Structure Exposed N/A -Texture (Sybil-wound Skin Appearance) Assessed, Assessed Scarring -Moisture (Sybil-wound Skin Appearance) Assessed Assessed -Color (Sybil-wound Skin Appearance) Assessed Assessed -Temperature (Sybil-wound Skin No Abnormality No Abnormality Appearance) (Pt Warm) (Pt Warm) -Tenderness on Palpation (Sybil-wound No No Skin Appearance) -Ulcer Cleansing Rinsed/ Wound Cleanser Irrigated with Saline -Foul Odor after Cleansing No No -Anesthetic Used 5% Lidocaine 5% Lidocaine Gel Gel WC - Nurse 2 - General Ulcer CM Notes Start: 05/25/23 09:18 Freq: Status: Active Protocol: Activity Type Activity Date Activity User E-sign Co-sign Detail Recorded Client Recorded Date Recorded By Document 05/25/23 10:00 Desktop 05/25/23 10:02 Document 06/01/23 10:06 Desktop 06/01/23 10:13 05/25/23 06/01/23 10:00 10:06 Wound Center Nurse 2 1. R chest (rib cage) -Time 10:00 10:07 -Correct Patient Yes Yes -Correct Side, Site, Position Yes Yes -Correct Procedure Yes Yes -Procedure Performed No Yes -Type of Procedure Debridement Debridement -Clinical Debridement Subcutaneous -Tissue Removed Subcutaneous -Post Debridement (cm) - Length 0.6 0.7 -Post Debridement (cm) - Width 1.0 0.7 -Post Debridement (cm) - Depth 0.1 0.1 -Total Square (Post) (cm) 0.60 0.49 -Area of Debridement (cm) - Length 0.6 0.7 -Area of Debridement (cm) - Width 1.0 0.7 -Total Square (Area) (cm) 0.60 0.49 -Tunneling No -Undermining/Tunneling No -Circular Undermining No -Wound/Ulcer Outcome Not Healed Not Healed -Ulcer Cleansing Rinsed/ Rinsed/ Irrigated with Irrigated with Saline Saline -Foul Odor after Cleansing No No -Bleeding Controlled with Pressure -Treatment Response Procedure Tolerated Well -Debridement - Subq, 1st 20sq cm Yes Pain Scale: 0-10 Numeric Is Patient Pain Free? Yes Yes WC - Nurse 3 - General Ulcer D/C NN Start: 05/25/23 09:18 Freq: Status: Active Protocol: Activity Type Activity Date Activity User E-sign Co-sign Detail Recorded Client Recorded Date Recorded By Document 05/25/23 10:14 RB Desktop 05/25/23 10:15 RB 05/25/23 10:14 Wound Care Center Nurse 3 1. R chest (rib cage) -Ulcer Cleansing Rinsed/ Irrigated with Saline -Primary Dressing Applied Aquacel Extra, Mepilex Border -Aquacel Extra 1 -Mepilex Border 1 Treatment Response Procedure Tolerated Well Pain Scale: 0-10 Numeric Is Patient Pain Free? Yes WC - Visit Discharge Discharge Condition Stable Ambulatory Status Ambulatory Transportation Private Auto Medication Reconcilliation completed & No provided to patient/care provider Clinical Summary of Care Provided Yes Assessment/Plan Assessment/Plan (1) Open wound of right chest wall: CODE(S): S21.101A - Unspecified open wound of right front wall of thorax without penetration into thoracic cavity, initial encounter QUALIFIERS: Encounter type: subsequent encounter Qualified Code(s): S21.101D - Unspecified open wound of right front wall of thorax without penetration into thoracic cavity, subsequent encounter (2) Nonhealing nonsurgical wound with fat layer exposed: CODE(S): T14.8XXA - Other injury of unspecified body region, initial encounter (3) Obesity: CODE(S): E66.9 - Obesity, unspecified QUALIFIERS: Obesity type: unspecified obesity type Obesity classification: adult class 2 (BMI 35 - 39.9) Serious obesity comorbidity presence: without serious comorbidity Body mass index: BMI 39.0-39.9 Qualified Code(s): E66.9 - Obesity, unspecified; Z68.39 - Body mass index [BMI] 39.0-39.9, adult (4) COPD (chronic obstructive pulmonary disease): CODE(S): J44.9 - Chronic obstructive pulmonary disease, unspecified QUALIFIERS: COPD type: unspecified COPD Qualified Code(s): J44.9 - Chronic obstructive pulmonary disease, unspecified (5) Ulcer of chest wall with fat layer exposed: CODE(S): L98.492 - Non-pressure chronic ulcer of skin of other sites with fat layer exposed PLAN: Plan Debridement performed today in clinic as annotated above. At home wound-care instructions: Apply Aquacel extra and foam dressing every other day. Keep dressing clean and dry. Due to delayed healing with traditional wound care, she would benefit from application of advanced wound care product such as Epifix to promote and expedite healing of her nonhealing surgical wound. We will apply for approval to use this with her insurance. Off-loading: The patient was instructed to avoid pressure and friction on the affected areas. Reposition every 2 hours at minimum. Avoid prolonged standing and/or dangling of legs. When seated, feet should be elevated at chest level. Frequent ambulation is encouraged. Diet: Patient encouraged to increase protein intake while taking caution to avoid high carbohydrate and/or sugar intake. Labs/cultures/imaging: She will complete Clindamycin today. Follow-up: Return in 1 week for wound care follow up. Return sooner or report to the emergency room should symptoms worsen, or new symptoms arise. Note: [employer] speech recognition topographical surveyor software was used to create portions of this document. Sound-alike and misspelled words, as well as other topographical surveyor errors may be contained in the documentation.
[2023-06-08 08:29] VITALS: BP 153/72; PULSE 76; RESP 20; TEMP 36.2; BMI 39.1
--- NOTE | 2023-06-08 15:13 | PN.PCM_ITS ---
History of Present Illness Date of Service: 06/08/23 Chief Complaint: right lateral chest wound History of Wound: Elsa is a 67 yo woman that presents to the wound center today for evaluation and treatment of a nonhealing wound of her right chest wall from a chest tube. She was hospitalized the end of February and discharged on Mar.24 from [facility] for pneumonia and pleural effusion which need surgical debridement. The wound has not healed since the chest tube was removed Mar.24. She has been applying Bacitracin. She states there is light drainage, no erythema or odor or fever or chills. Subjective Subjective Elsa is here today for follow up of nonhealing wounds at site of chest tube insertion. She has been tolerating Aquacel and foam dressing. The area is still open and draining moderately. Wound culture was positive for Prevotella anaerobe and Staph epidermidis. She was started on Clindamycin and she tolerated this well. She reports increased pain this week and drainage. She denies fever, chills, increased pain or erythema. Objective Data Objective Data Vital Signs: Vital Signs Temp Pulse Resp BP O2 Del Method 97.1 F L 76 20 H 153/72 H Room Air 06/08/23 08:29 06/08/23 08:29 06/08/23 08:29 06/08/23 08:29 05/25/23 09:18 Oxygen Delivery Method Room Air Weight: 106.594 kg Body Mass Index (BMI) 39.1 Physical Exam Const alert, oriented x3 and no apparent distress General Appearance: cooperative and comfortable HEENT normocephalic and head/scalp atraumatic Resp normal respiratory effort Effort and Inspection: able to speak in complete sentences Cardio regular rate and regular rhythm Skin Wounds: wounds noted Wound Narrative: as in clinical panel Psych mental status grossly normal, thought process normal, cooperative and affect normal Debridement Note Debridement Note Wound debrided: right chest wall Laterality: Right Type of Debridement: Excisional debridement Anesthesia Used: 5% Lidocaine Gel, Cetacaine and - (6 ml lidocaine 1% without epi) Depth: Down to and including healthy tissue and in the subcutaneous layer Percentage of wound debrided: 100 Instrument Used: 3mm curette, #15 blade and Forceps Tissue Removed: yellow slough, devitalized tissue, overlying skin above undermining Severity: Fat Layer Exposed Amount of bleeding with debridement: Mild Bleeding Controlled with: Compression and gauze Patient tolerated procedure: Patient tolerated procedure well Post-Debridement Measurements and Additional Note: Post-Debridement Measurements/Treatment WC - Nurse 1 - General Ulcer Assessment Start: 05/25/23 09:18 Freq: Status: Active Protocol: DARRYL Activity Type Activity Date Activity User E-sign Co-sign Detail Recorded Client Recorded Date Recorded By Document 05/25/23 09:18 BMF Desktop 05/25/23 09:27 BMF Document 06/01/23 10:02 RB Desktop 06/01/23 10:03 RB Document 06/08/23 08:29 DL Desktop 06/08/23 08:35 DL 05/25/23 06/01/23 06/08/23 09:18 10:02 08:29 WC - Today's Visit Information Type of service Follow-up Visit Follow-up Visit Follow-up Visit (Physician/COLD REDUCTION ROLLER (Physician/COLD REDUCTION ROLLER (Physician/COLD REDUCTION ROLLER ) ) ) Arrival Mode Ambulatory Ambulatory Ambulatory Transfer Assistance None None None Patient Identification Verified (Name & Yes Yes Yes ) Patient Requires Transmission-Based No No No Precautions Height and Weight Body Mass Index (BMI) 39.1 39.1 39.1 BMI Classification Obese Obese Obese Vital Signs Temperature (97.8 F-99.1 F) 96.6 F L 96.4 F L 97.1 F L Temperature Source Temporal Temporal Temporal Pulse Rate (60-100) 83 87 76 Pulse Location Monitor Monitor Monitor Respiratory Rate (12-18) 16 18 20 H Respiratory rate source Observation Observation Observation Oxygen Delivery Method Room Air Blood Pressure (90/60-120/80) 151/68 H 140/60 H 153/72 H Blood Pressure Mean (mm Hg) 95 86 99 Source Monitor Monitor Monitor Position Sitting Semi-Fowlers Blood Pressure Location Right Arm Left Arm History Since Last Visit- (Skip if this is Patient's initial visit) Have you changed medications since your No No No last visit? Any new allergies or adverse reactions No No No Had a fall/change in ADL's that may No No No increase risk of falls Signs or symptoms of abuse and/or No No No neglect since last visit Have you been in the hospital since your No No No last visit? Has dressing in place as prescribed Yes Yes Yes Has compression in place as prescribed N/A No N/A Has offloadiing in place as prescribed N/A No N/A Experienced any changes in pain level or No No No management Left Footwear Regular Shoe Right Footwear Regular Shoe Pain Scale: 0-10 Numeric Is Patient Pain Free? Yes Yes Yes WC - Nurse 1 - General Ulcer Measurement Start: 05/25/23 09:18 Freq: Status: Active Protocol: Activity Type Activity Date Activity User E-sign Co-sign Detail Recorded Client Recorded Date Recorded By Document 05/25/23 09:18 BMF Desktop 05/25/23 09:27 BMF Document 06/01/23 10:02 RB Desktop 06/01/23 10:03 RB Document 06/08/23 08:29 DL Desktop 06/08/23 08:35 DL 05/25/23 06/01/23 06/08/23 09:18 10:02 08:29 Wound Center Nurse 1 1. R chest (rib cage) -Combined with other wound No No -Current Size (cm) - Length 0.6 0.5 0.7 -Current Size (cm) - Width 1 0.6 1.5 -Current Size (cm) - Depth 0.1 0.1 0.1 -Total Square Cm 0.6 0.30 1.05 -Photo Taken No Yes -Tunneling No No -Undermining/Tunneling No No -Circular Undermining No No -Exudate Amt Medium Medium Small -Exudate Type Serosanguineous Serosanguineous -Wound Margin Distinct, Distinct, Distinct, Outline Outline Outline Attached Attached Attached -Granulation Amt Large (67-100%) Medium (34-66%) Large (67-100%) -Granulation Quality Red Atlantic Atlantic -Slough/Fibrin No Yes -Necrosis Amt None Present (0 Medium (34-66%) None Present (0 %) %) -Necrotic Tissue Type Adherent Slough -Structure Exposed N/A N/A -Texture (Sybil-wound Skin Appearance) Assessed, Assessed Scarring Scarring -Moisture (Sybil-wound Skin Appearance) Assessed Assessed No Abnormality -Color (Sybil-wound Skin Appearance) Assessed Assessed Erythema -Temperature (Sybil-wound Skin No Abnormality No Abnormality No Abnormality Appearance) (Pt Warm) (Pt Warm) (Pt Warm) -Tenderness on Palpation (Sybil-wound No No Yes Skin Appearance) -Ulcer Cleansing Rinsed/ Wound Cleanser Rinsed/ Irrigated with Irrigated with Saline Saline -Foul Odor after Cleansing No No No -Anesthetic Used 5% Lidocaine 5% Lidocaine 5% Lidocaine Gel Gel Gel WC - Nurse 2 - General Ulcer CM Notes Start: 05/25/23 09:18 Freq: Status: Active Protocol: Activity Type Activity Date Activity User E-sign Co-sign Detail Recorded Client Recorded Date Recorded By Document 05/25/23 10:00 GM Desktop 05/25/23 10:02 GM Document 06/01/23 10:06 GM Desktop 06/01/23 10:13 GM Edit Result 06/01/23 10:06 GM (1) [id number] 06/01/23 10:32 GM Document 06/08/23 09:42 GM Desktop 06/08/23 09:48 GM (1) 1. R chest (rib cage) - Post Debridement (cm) - Length 0.7 => 1.0 - Post Debridement (cm) - Width 0.7 => 1.0 - Total Square (Post) (cm) 0.49 => 1.00 - Area of Debridement (cm) - Length 0.7 => 1.0 - Area of Debridement (cm) - Width 0.7 => 1.0 - Total Square (Area) (cm) 0.49 => 1.00 05/25/23 06/01/23 06/08/23 10:00 10:06 09:42 Wound Center Nurse 2 1. R chest (rib cage) -Time 10:00 10:07 09:30 -Correct Patient Yes Yes Yes -Correct Side, Site, Position Yes Yes Yes -Correct Procedure Yes Yes Yes -Procedure Performed No Yes Yes -Type of Procedure Debridement Debridement Debridement -Clinical Debridement Subcutaneous Subcutaneous -Tissue Removed Subcutaneous Subcutaneous -Post Debridement (cm) - Length 0.6 1.0 1.4 -Post Debridement (cm) - Width 1.0 1.0 1.8 -Post Debridement (cm) - Depth 0.1 0.1 0.3 -Total Square (Post) (cm) 0.60 1.00 2.52 -Area of Debridement (cm) - Length 0.6 1.0 1.4 -Area of Debridement (cm) - Width 1.0 1.0 1.8 -Total Square (Area) (cm) 0.60 1.00 2.52 -Tunneling No No -Undermining/Tunneling No No -Circular Undermining No No -Wound/Ulcer Outcome Not Healed Not Healed Not Healed -Ulcer Cleansing Rinsed/ Rinsed/ Rinsed/ Irrigated with Irrigated with Irrigated with Saline Saline Saline -Foul Odor after Cleansing No No No -Bioengineered Tissue No -Injectable Lidocaine w/ Epi (mls) 6 -Bleeding Controlled with Pressure Pressure -Treatment Response Procedure Procedure Tolerated Well Tolerated Well -Debridement - Subq, 1st 20sq cm Yes Yes Pain Scale: 0-10 Numeric Is Patient Pain Free? Yes Yes Yes - Nurse 3 - General Ulcer D/C NN Start: 05/25/23 09:18 Freq: Status: Active Protocol: Activity Type Activity Date Activity User E-sign Co-sign Detail Recorded Client Recorded Date Recorded By Document 05/25/23 10:14 RB Desktop 05/25/23 10:15 RB Document 06/01/23 10:25 NH Desktop 06/01/23 10:26 MT Document 06/08/23 09:56 RB Desktop 06/08/23 09:58 05/25/23 06/01/23 06/08/23 10:14 10:25 09:56 Wound Care Center Nurse 3 1. R chest (rib cage) -Ulcer Cleansing Rinsed/ Rinsed/ Irrigated with Irrigated with Saline Saline -Primary Dressing Applied Aquacel Extra, Mepilex Border Mepilex Border -Other Dressing aquacel extra bordered foam dressing -Aquacel Extra 1 -Mepilex Border 1 1 Treatment Response Procedure Procedure Tolerated Well Tolerated Well Pain Scale: 0-10 Numeric Is Patient Pain Free? Yes Yes Yes Teaching: Wound Center Dressing Your Wound -Person Taught Patient -Teaching Method Discussion -Response to teaching Verbalize understanding - Visit Discharge Discharge Condition Stable Stable Stable Ambulatory Status Ambulatory Ambulatory Ambulatory Transportation Private Auto Private Auto Private Auto Medication Reconcilliation completed & No No No provided to patient/care provider Clinical Summary of Care Provided Yes Yes Yes Assessment/Plan Assessment/Plan (1) Open wound of right chest wall: CODE(S): S21.101A - Unspecified open wound of right front wall of thorax without penetration into thoracic cavity, initial encounter QUALIFIERS: Encounter type: subsequent encounter Qualified Code(s): S21.101D - Unspecified open wound of right front wall of thorax without penetration into thoracic cavity, subsequent encounter (2) Nonhealing nonsurgical wound with fat layer exposed: CODE(S): T14.8XXA - Other injury of unspecified body region, initial encounter (3) Obesity: CODE(S): E66.9 - Obesity, unspecified QUALIFIERS: Obesity type: unspecified obesity type Obesity classification: adult class 2 (BMI 35 - 39.9) Serious obesity comorbidity presence: without serious comorbidity Body mass index: BMI 39.0-39.9 Qualified Code(s): E66.9 - Obesity, unspecified; Z68.39 - Body mass index [BMI] 39.0-39.9, adult (4) COPD (chronic obstructive pulmonary disease): CODE(S): J44.9 - Chronic obstructive pulmonary disease, unspecified QUALIFIERS: COPD type: unspecified COPD Qualified Code(s): J44.9 - Chronic obstructive pulmonary disease, unspecified (5) Ulcer of chest wall with fat layer exposed: CODE(S): L98.492 - Non-pressure chronic ulcer of skin of other sites with fat layer exposed PLAN: Plan Debridement performed today in clinic as annotated above. At home wound-care instructions: Apply Aquacel extra and foam dressing every other day. Keep dressing clean and dry. Due to delayed healing with traditional wound care, she would benefit from application of advanced wound care product such as Epifix to promote and expedite healing of her nonhealing surgical wound. We will apply for approval to use this with her insurance. Epifix was not started today due to increased drainage and pain and suspicion of infection. Larger excisional debridement of the ulcer was performed to expose the wound bed and clear out slough, a old blood that was trapped. Patient tolerated this well . Off-loading: The patient was instructed to avoid pressure and friction on the affected areas. Reposition every 2 hours at minimum. Avoid prolonged standing and/or dangling of legs. When seated, feet should be elevated at chest level. Frequent ambulation is encouraged. Diet: Patient encouraged to increase protein intake while taking caution to avoid high carbohydrate and/or sugar intake. Labs/cultures/imaging: Wound culture taken again today. Will treat based on results. Follow-up: Return in 2 weeks for wound care follow up. Return sooner or report to the emergency room should symptoms worsen, or new symptoms arise. Note: [employer] speech recognition barrel tester software was used to create portions of this document. Sound-alike and misspelled words, as well as other barrel tester errors may be contained in the documentation.
--- NOTE | 2023-06-13 08:36 | WC ---
Contacted patient with results of wound culture and to let her know that Dr. Veliz has ordered Flagyl 500 mg, 1 tab twice a day for 10 days. Rx was called to [facility] in [place], [place].
== END 2023-06-21 23:59 | disposition home or self-care (01) ==
LOC: WC 08:30
PROVIDERS: PCP Family Medicine; Referring Provider Internal Medicine Pulmonary Disease; Visit Provider Family Medicine
DX: T81.89XA Other complications of procedures, not elsewhere classified, initial encounter (principal); L98.492 Non-pressure chronic ulcer of skin of other sites with fat layer exposed; J44.9 Chronic obstructive pulmonary disease, unspecified; Y83.8 Other surgical procedures as the cause of abnormal reaction of the patient, or of later complication, without mention of misadventure at the time of the procedure; S21.101A Unspecified open wound of right front wall of thorax without penetration into thoracic cavity, initial encounter; E66.9 Obesity, unspecified; Z68.39 Body mass index [BMI] 39.0-39.9, adult; Z79.01 Long term (current) use of anticoagulants; Z79.84 Long term (current) use of oral hypoglycemic drugs; Z79.899 Other long term (current) drug therapy
CPT/HCPCS: 11042; 87070; 87075; 87077; 87205; 99213; G0463

== ENCOUNTER 2023-06-22 08:27 | Outpatient (RCR) | payer MEDICARE, OTHER, SELFPAY ==
[2023-06-22 00:37] VITALS: BP 153/72; PULSE 76; RESP 20; TEMP 36.2; BMI 39.1
[2023-06-22 10:09] VITALS: BP 137/61; PULSE 83; RESP 16; TEMP 35.9; BMI 39.1
--- NOTE | 2023-06-22 14:02 | PCM.WC.PN ---
History of Present Illness Date of Service: 06/22/23 Chief Complaint: right lateral chest wound History of Wound: Elsa is a 67 yo woman that presents to the wound center today for evaluation and treatment of a nonhealing wound of her right chest wall from a chest tube. She was hospitalized the end of February and discharged on Mar.24 from [facility] for pneumonia and pleural effusion which need surgical debridement. The wound has not healed since the chest tube was removed Mar.24. She has been applying Bacitracin. She states there is light drainage, no erythema or odor or fever or chills. Subjective Subjective Elsa is here today for follow up of nonhealing wounds at site of chest tube insertion. She has been tolerating Aquacel and foam dressing. The area is closed and there is no more drainage. She denies fever, chills, increased pain or erythema. Objective Data Objective Data Vital Signs: Vital Signs Temp Pulse Resp BP O2 Del Method 96.6 F L 83 16 137/61 H Room Air 06/22/23 10:06/22/23 10:06/22/23 10:09 06/22/23 10:09 06/22/23 10:09 Oxygen Delivery Method Room Air Weight: 106.594 kg Body Mass Index (BMI) 39.1 Physical Exam Const alert, oriented x3 and no apparent distress General Appearance: cooperative and comfortable HEENT normocephalic and head/scalp atraumatic Resp normal respiratory effort Effort and Inspection: able to speak in complete sentences Cardio regular rate and regular rhythm Skin Wounds: wounds noted Wound Narrative: as in clinical panel Psych mental status grossly normal, thought process normal, cooperative and affect normal Debridement Note Debridement Note Wound debrided: right chest wall Laterality: Right No debridement was completed: No debridement was completed today (wound healed) Post-Debridement Measurements and Additional Note: Post-Debridement Measurements/Treatment CHERYL - Nurse 1 - General Ulcer Assessment Start: 06/22/23 10:08 Freq: Status: Active Protocol: DARRYL Activity Type Activity Date Activity User E-sign Co-sign Detail Recorded Client Recorded Date Recorded By Document 06/22/23 10:09 [facility] Desktop 06/22/23 10:17 [facility] 06/22/23 10:09 - Today's Visit Information Type of service Follow-up Visit (Physician/MERCHANDISE SHOPPER ) Arrival Mode Ambulatory Transfer Assistance None Patient Identification Verified (Name & Yes ) Patient Requires Transmission-Based No Precautions Height and Weight Body Mass Index (BMI) 39.1 BMI Classification Obese Vital Signs Temperature (97.8 F-99.1 F) 96.6 F L Temperature Source Temporal Pulse Rate (60-100) 83 Pulse Location Monitor Respiratory Rate (12-18) 16 Respiratory rate source Observation Oxygen Delivery Method Room Air Blood Pressure (90/60-120/80) 137/61 H Blood Pressure Mean (mm Hg) 86 Source Monitor Position Sitting Blood Pressure Location Left Arm History Since Last Visit- (Skip if this is Patient's initial visit) Have you changed medications since your No last visit? Any new allergies or adverse reactions No Had a fall/change in ADL's that may No increase risk of falls Signs or symptoms of abuse and/or No neglect since last visit Have you been in the hospital since your No last visit? Has dressing in place as prescribed Yes Has compression in place as prescribed N/A Has offloadiing in place as prescribed N/A Experienced any changes in pain level or No management Left Footwear Regular Shoe Right Footwear Regular Shoe Pain Scale: 0-10 Numeric Is Patient Pain Free? Yes WC - Nurse 1 - General Ulcer Measurement Start: 06/22/23 10:08 Freq: Status: Active Protocol: Activity Type Activity Date Activity User E-sign Co-sign Detail Recorded Client Recorded Date Recorded By Document 06/22/23 10:09 [facility] Desktop 06/22/23 10:17 [facility] 06/22/23 10:09 Wound Center Nurse 1 1. R chest (rib cage) -Combined with other wound No -Current Size (cm) - Length 0.1 -Current Size (cm) - Width 0.1 -Current Size (cm) - Depth 0.1 -Total Square Cm 0.01 -Photo Taken No -Epithelialization Large 67-100% -Tunneling No -Undermining/Tunneling No -Circular Undermining No -Exudate Amt None Present -Texture (Sybil-wound Skin Appearance) Assessed, Scarring -Moisture (Sybil-wound Skin Appearance) Assessed -Color (Sybil-wound Skin Appearance) Assessed -Temperature (Sybil-wound Skin No Abnormality Appearance) (Pt Warm) -Tenderness on Palpation (Sybil-wound No Skin Appearance) -Ulcer Cleansing Rinsed/ Irrigated with Saline -Foul Odor after Cleansing No -Anesthetic Used 5% Lidocaine Gel - Nurse 2 - General Ulcer CM Notes Start: 06/22/23 10:08 Freq: Status: Active Protocol: Activity Type Activity Date Activity User E-sign Co-sign Detail Recorded Client Recorded Date Recorded By Document 06/22/23 10:29 Desktop 06/22/23 10:30 06/22/23 10:29 Wound Center Nurse 2 -Time 10:29 -Correct Patient Yes -Correct Side, Site, Position Yes -Correct Procedure Yes -Procedure Performed Yes -Type of Procedure Debridement -Clinical Debridement Epidermis / Dermis -Tissue Removed Epidermis -Post Debridement (cm) - Length 0.1 -Post Debridement (cm) - Width 0.1 -Post Debridement (cm) - Depth 0.1 -Total Square (Post) (cm) 0.01 -Area of Debridement (cm) - Length 0.1 -Area of Debridement (cm) - Width 0.1 -Total Square (Area) (cm) 0.01 -Tunneling No -Undermining/Tunneling No -Circular Undermining No -Wound/Ulcer Outcome Healed- Epithelialized -Ulcer Cleansing Rinsed/ Irrigated with Saline -Foul Odor after Cleansing No -Bioengineered Tissue No -Debridement - Open, 1st 20sq cm Yes Pain Scale: 0-10 Numeric Is Patient Pain Free? Yes - Nurse 3 - General Ulcer D/C NN Start: 06/22/23 10:08 Freq: Status: Active Protocol: Activity Type Activity Date Activity User E-sign Co-sign Detail Recorded Client Recorded Date Recorded By Document 06/22/23 10:31 [facility] 06/22/23 10:34 06/22/23 10:31 Wound Care Center Nurse 3 1. R chest (rib cage) -Ulcer Cleansing Not Cleansed -Foul Odor after Cleansing No -Negative Pressure Wound Therapy N/A -Primary Dressing Applied Mepilex Border -Mepilex Border 1 Pain Scale: 0-10 Numeric Is Patient Pain Free? Yes - Visit Discharge Discharge Condition Stable Ambulatory Status Ambulatory Transportation Private Auto Medication Reconcilliation completed & Yes provided to patient/care provider Clinical Summary of Care Provided Yes Assessment/Plan Assessment/Plan (1) Open wound of right chest wall: CODE(S): S21.101A - Unspecified open wound of right front wall of thorax without penetration into thoracic cavity, initial encounter QUALIFIERS: Encounter type: subsequent encounter Qualified Code(s): S21.101D - Unspecified open wound of right front wall of thorax without penetration into thoracic cavity, subsequent encounter (2) Nonhealing nonsurgical wound with fat layer exposed: CODE(S): T14.8XXA - Other injury of unspecified body region, initial encounter (3) Obesity: CODE(S): E66.9 - Obesity, unspecified QUALIFIERS: Obesity type: unspecified obesity type Obesity classification: adult class 2 (BMI 35 - 39.9) Serious obesity comorbidity presence: without serious comorbidity Body mass index: BMI 39.0-39.9 Qualified Code(s): E66.9 - Obesity, unspecified; Z68.39 - Body mass index [BMI] 39.0-39.9, adult (4) COPD (chronic obstructive pulmonary disease): CODE(S): J44.9 - Chronic obstructive pulmonary disease, unspecified QUALIFIERS: COPD type: unspecified COPD Qualified Code(s): J44.9 - Chronic obstructive pulmonary disease, unspecified (5) Ulcer of chest wall with fat layer exposed: CODE(S): L98.492 - Non-pressure chronic ulcer of skin of other sites with fat layer exposed PLAN: Plan Evaluation performed today in clinic as annotated above. It is possible that the area of the wound has an underlying sebaceous cyst or hidradenitis that has complicated her healing and it may return. We discussed this possibility and that surgical excision may be needed in the future if she continues to have problems in this area. At home wound-care instructions: Wound is healed. Pad and protect for the next week. Off-loading: The patient was instructed to avoid pressure and friction on the affected areas. Reposition every 2 hours at minimum. Avoid prolonged standing and/or dangling of legs. When seated, feet should be elevated at chest level. Frequent ambulation is encouraged. Diet: Patient encouraged to increase protein intake while taking caution to avoid high carbohydrate and/or sugar intake. Labs/cultures/imaging: Follow-up: She is discharged from treatment today and would be happy to see her in the future if needed. Note: [employer] speech recognition medical transcriptionist software was used to create portions of this document. Sound-alike and misspelled words, as well as other medical transcriptionist errors may be contained in the documentation.
== END 2023-06-25 15:26 | disposition home or self-care (01) ==
LOC: WC 08:27
PROVIDERS: PCP Family Medicine; Referring Provider Internal Medicine Pulmonary Disease; Visit Provider Family Medicine
DX: Z09 Encounter for follow-up examination after completed treatment for conditions other than malignant neoplasm (principal); J44.9 Chronic obstructive pulmonary disease, unspecified; E66.9 Obesity, unspecified; Z68.39 Body mass index [BMI] 39.0-39.9, adult
CPT/HCPCS: 97597

== ENCOUNTER → 2023-07-02 | Outpatient (CLI) | payer MEDICARE, OTHER, SELFPAY ==
--- NOTE | 2023-07-02 09:03 | RAD_ITS ---
STUDY: X-RAY - PELVIS REASON FOR EXAM: Female, 67 years old. Pain. Evaluate for inflammatory arthropathy. TECHNIQUE: One view of the pelvis was obtained. COMPARISON: December 25, 2022 FINDINGS: There is a non-specific bowel gas pattern. Clips projected over the pelvis and phleboliths. Osteopenia. Mild arthrosis of both sacroiliac joints. Mild arthrosis of the symphysis pubis. Moderate arthrosis of both hips. No acute abnormality or erosive changes. RAD/Pelvis 1 or 2 Views IMPRESSION: Stable osteopenia with osteoarthritic changes. No acute abnormality or erosive changes. Electronically Signed: Chevy Benitez MD at 12:42 EST ,
[2023-07-02 09:42] LABS: EXAGEN MAILED SPECIMEN
[2023-07-02 09:58] LABS: Absolute Lymphocyte Count 2.19 X10^3/uL (0.83-4.51); Absolute Neutrophil Count 5.7 X10^3/uL (2.0-7.7); Basophil# 0.04 X10^3/uL; Basophil% 0.5 % (0-1); Eosinophil# 0.11 X10^3/uL; Eosinophils% 1.3 % (0-5); Hematocrit 39.1 % (37-47); Hemoglobin 12.4 g/dL (12.0-15.0); Lymphocyte # 2.19 X10^3/ul (0.83-4.51); Lymphocyte % 25.5 % (19-41); Mean Corp Hgb Conc 31.7 g/dL (32-36); Mean Corpuscular Hgb 28.5 pg (27.0-32.0); Mean Corpuscular Volume 89.9 fL (81-99); Mean Platelet Vol. 9.8 fl (6.2-12.0); Monocyte# 0.51 X10^3/uL; Monocyte% 5.9 % (0-10); NRBC Flagged by Analyzer 0 % (0-5); Neutrophil # 5.68 X10^3/uL (2.7-7.7); Neutrophil % 66.2 % (47-70); Platelet Count 298 K/mm3 (150-450); RBC Distribution Width CV 15.4 % (11.6-14.6); RBC Distribution Width SD 51.2 fl (35.1-43.9); Red Blood Count 4.35 M/mm3 (4.2-5.4); White Blood Count 8.6 K/mm3 (4.4-11.0)
[2023-07-02 10:00] LABS: Erythrocyte Sedimentation Rate 29 mm/hr (0-30)
[2023-07-02 10:14] LABS: Color, Urine Yellow (Yellow); Glucose, Dipstick Normal (Normal); Ketone-Dipstick Negative (Negative); Leukocyte Esterase-Dipstick 100 /ul (Negative); Nitrite-Dipstick Negative (Negative); Occult Blood-Urine 10 /ul (Negative); Protein-Dipstick Negative (Negative); Urine Bilirubin Dipstick Negative (Negative); Urine Clarity Clear (Clear); Urine Urobilinogen Normal (Normal)
[2023-07-02 10:24] LABS: Protein:Creat Ratio 120 mg/g CRE (0-200)
[2023-07-02 10:49] LABS: Hepatitis B Surface Antibody Non-Reactive; Hepatitis B Surface Antigen Non-Reactive (Nonreactive); Hepatitis C Antibody Non-Reactive (Nonreactive)
[2023-07-02 11:02] LABS: ALB/GLOB Ratio 0.8 RATIO (0.9-2.4); AST(SGOT) 13 U/L (15-37); Alanine Aminotransfer ALT/SGPT 28 U/L (13-56); Albumin, Serum 3.3 g/dL (3.2-5.0); Alkaline Phosphatase 66 U/L (45-117); Anion Gap 7 (5-15); BUN 24 mg/dL (7-18); Calcium,Total 8.8 mg/dL (8.5-10.1); Chloride 104 mmol/L (98-107); Creatinine, Serum 0.92 mg/dL (0.55-1.02); EST Glomerular Filtration Rate 65 mL/min (>60); Est Glom Filt Rate - Afr Amer 78 mL/min (>60); Globulin 4.1 g/dL (2.2-4.2); Glucose 174 mg/dL (74-106); Protein, Total 7.4 g/dL (6.4-8.2); Sodium Level 138 mmol/L (136-145)
== END | disposition home or self-care (01) ==
LOC: MTLAB 08:37
PROVIDERS: PCP Family Medicine; Referring Provider Internal Medicine Rheumatology; Visit Provider Internal Medicine Rheumatology
DX: M06.4 Inflammatory polyarthropathy (principal); M79.7 Fibromyalgia; R76.8 Other specified abnormal immunological findings in serum; M47.897 Other spondylosis, lumbosacral region
CPT/HCPCS: 36415; 72170; 80053; 81002; 82570; 84156; 85025; 85652; 86140; 86706; 86803; 87340

== ENCOUNTER → 2023-07-25 | Outpatient (CLI) | payer MEDICARE, OTHER, SELFPAY | END | disposition home or self-care (01) | LOC: LABSPEC 10:59 | PROVIDERS: PCP Family Medicine; Referring Provider Internal Medicine Medical Oncology; Visit Provider Internal Medicine Medical Oncology | DX: R31.9 Hematuria, unspecified (principal) ==

== ENCOUNTER → 2023-09-24 | Outpatient (CLI) | payer MEDICARE, OTHER, SELFPAY ==
[2023-09-24 15:01] LABS: Absolute Lymphocyte Count 3.22 X10^3/uL (0.83-4.51); Absolute Neutrophil Count 5.1 X10^3/uL (2.0-7.7); Basophil# 0.06 X10^3/uL; Basophil% 0.7 % (0-1); Eosinophil# 0.14 X10^3/uL; Eosinophils% 1.5 % (0-5); Lymphocyte # 3.22 X10^3/ul (0.83-4.51); Lymphocyte % 35.4 % (19-41); Mean Corp Hgb Conc 32.5 g/dL (32-36); Mean Corpuscular Hgb 30.1 pg (27.0-32.0); Mean Corpuscular Volume 92.6 fL (81-99); Mean Platelet Vol. 9.7 fl (6.2-12.0); Monocyte# 0.55 X10^3/uL; Monocyte% 6.1 % (0-10); NRBC Flagged by Analyzer 0 % (0-5); Neutrophil # 5.07 X10^3/uL (2.7-7.7); Neutrophil % 55.7 % (47-70); Platelet Count 339 K/mm3 (150-450); RBC Distribution Width CV 13.5 % (11.6-14.6); RBC Distribution Width SD 46.1 fl (35.1-43.9); Red Blood Count 4.32 M/mm3 (4.2-5.4); White Blood Count 9.1 K/mm3 (4.4-11.0)
[2023-09-24 15:21] LABS: ALB/GLOB Ratio 0.8 RATIO (0.9-2.4); AST(SGOT) 20 U/L (15-37); Alanine Aminotransfer ALT/SGPT 29 U/L (13-56); Albumin, Serum 3.7 g/dL (3.2-5.0); Alkaline Phosphatase 70 U/L (45-117); Anion Gap 5 (5-15); BUN 31 mg/dL (7-18); Calcium,Total 9.7 mg/dL (8.5-10.1); Chloride 100 mmol/L (98-107); EST Glomerular Filtration Rate 59 mL/min (>60); Est Glom Filt Rate - Afr Amer 71 mL/min (>60); Globulin 4.4 g/dL (2.2-4.2); Glucose 120 mg/dL (74-106); LDH 169 U/L (84-246); Potassium 4.2 mmol/L (3.5-5.1); Protein, Total 8.1 g/dL (6.4-8.2); Sodium Level 136 mmol/L (136-145)
[2023-09-26 16:10] LABS: Albumin 3.7 g/dL (2.9-4.4); Alpha-1-Globulins 0.3 g/dL (0.0-0.4); Free Kappa Light Chains 43.3 mg/L (3.3-19.4); Free Lambda Light Chains 32.4 mg/L (5.7-26.3); Gamma Globulin 1.2 g/dL (0.4-1.8); Immunoglobulin A 208 mg/dL (87-352); Immunoglobulin G 1235 mg/dL (586-1602); Immunoglobulin M 124 mg/dL (26-217); PROEL- TOTAL PROTEIN 7.3 g/dL (6.0-8.5)
== END | disposition home or self-care (01) ==
LOC: MFPLAB 11:44
PROVIDERS: Internal Medicine Medical Oncology; PCP Family Medicine; Visit Provider Family Medicine
DX: D35.01 Benign neoplasm of right adrenal gland (principal); D35.02 Benign neoplasm of left adrenal gland; R31.21 Asymptomatic microscopic hematuria; R76.8 Other specified abnormal immunological findings in serum
CPT/HCPCS: 36415; 80053; 82784; 83615; 83883; 84165; 85025; 86334

== ENCOUNTER → 2023-10-01 | Outpatient (CLI) | payer MEDICARE, OTHER, SELFPAY ==
--- NOTE | 2023-10-01 08:30 | CT_ITS ---
STUDY: CT ABDOMEN AND PELVIS WITH CONTRAST REASON FOR EXAM: Female, 67 years old. BILATERAL ADRENAL ADENOMAS RADIATION DOSAGE (If Supplied By Facility): CTDIvol = ( 19.34 ) mGy, DLP = ( 2657.58 ) mGycm TECHNIQUE: Transaxial images were obtained from the dome of the diaphragm to the symphysis pubis without oral contrast. IV 100mL Isovue-300 was administered. Sagittal and coronal images were reconstructed. Individualized dose optimization techniques were used for this CT. COMPARISON: Comparison is made with prior study December 14, 2018. FINDINGS: The visualized lung bases are unremarkable. Coronary artery calcification. Prior aortic valve replacement. There is decreased attenuation of the liver consistent with steatosis. Hepatomegaly. Normal gallbladder and extrahepatic biliary system. Normal spleen. Normal pancreas. There is a small, circumscribed, smooth, low attenuation left adrenal mass, consistent with an adrenal adenoma. This measures 2.7 cm x 1.8 cm. This is essentially unchanged. Subtle signs of 1.5 cm x 1 cm hypodense nodule in the right adrenal gland. Stable bilateral adrenal adenomas. Adrenal gland. 4 mm nonobstructive calculus in the midpole calyx of the right kidney. Normal left kidney. Subtotal gastrectomy with gastric bypass surgery. Normal small intestine. Normal colon. The appendix is visualized and appears normal. There is scattered atherosclerotic calcification of the abdominal aorta, without a demonstrated aneurysm. There is an IVC filter in place. Normal retroperitoneum. Normal urinary bladder. There is evidence of prior anterior abdominal wall hernia repair. There are degenerative changes of the visualized lumbar spine. CT/Abdomen/Pelvis W IV Cont ONLY IMPRESSION: Mild hepatomegaly and diffuse fatty infiltration of the liver. Nonobstructive right intrarenal calculus. Stable bilateral fat containing nodules in both adrenal glands and kidneys with bilateral adenomas. Electronically Signed: Karlo Portillo MD at 15:18 EDT ,
== END | disposition home or self-care (01) ==
LOC: CT 08:17
PROVIDERS: PCP Family Medicine; Referring Provider Internal Medicine Medical Oncology; Visit Provider Internal Medicine Medical Oncology
DX: D35.02 Benign neoplasm of left adrenal gland (principal); D35.01 Benign neoplasm of right adrenal gland
CPT/HCPCS: 74177; Q9967; A4216

== ENCOUNTER → 2023-10-19 | Outpatient (CLI) | payer MEDICARE, OTHER, SELFPAY ==
[2023-10-19 09:59] LABS: Absolute Neutrophil Count 3.9 X10^3/uL (2.0-7.7); Basophil# 0.05 X10^3/uL; Basophil% 0.7 % (0-1); Eosinophil# 0.12 X10^3/uL; Eosinophils% 1.7 % (0-5); Hematocrit 38.1 % (37-47); Hemoglobin 12.2 g/dL (12.0-15.0); Lymphocyte % 35.4 % (19-41); Mean Corpuscular Volume 93.6 fL (81-99); Mean Platelet Vol. 9.8 fl (6.2-12.0); Monocyte# 0.42 X10^3/uL; Monocyte% 5.9 % (0-10); NRBC Flagged by Analyzer 0 % (0-5); Neutrophil # 3.94 X10^3/uL (2.7-7.7); Neutrophil % 55.9 % (47-70); Platelet Count 311 K/mm3 (150-450); RBC Distribution Width CV 13.2 % (11.6-14.6); RBC Distribution Width SD 45.4 fl (35.1-43.9); Red Blood Count 4.07 M/mm3 (4.2-5.4); White Blood Count 7.1 K/mm3 (4.4-11.0)
[2023-10-19 10:50] LABS: ALB/GLOB Ratio 0.8 RATIO (0.9-2.4); AST(SGOT) 18 U/L (15-37); Alanine Aminotransfer ALT/SGPT 26 U/L (13-56); Albumin, Serum 3.5 g/dL (3.2-5.0); Alkaline Phosphatase 67 U/L (45-117); Anion Gap 9 (5-15); BUN 19 mg/dL (7-18); BUN/Creat Ratio 19.8 RATIO (10-20); Calcium,Total 9.1 mg/dL (8.5-10.1); Chloride 101 mmol/L (98-107); Creatinine, Serum 0.96 mg/dL (0.55-1.02); EST Glomerular Filtration Rate 62 mL/min (>60); Est Glom Filt Rate - Afr Amer 75 mL/min (>60); Globulin 4.2 g/dL (2.2-4.2); Glucose 153 mg/dL (74-106); Potassium 3.8 mmol/L (3.5-5.1); Protein, Total 7.7 g/dL (6.4-8.2); Sodium Level 138 mmol/L (136-145); Thyroid Stim Hormone (TSH) 1.23 uIU/mL (0.358-3.74)
[2023-10-19 17:26] LABS: Bacteria 0 SEEN /hpf (None Seen); Mucous, Urine 0 SEEN /hpf (<or=2+); Squamous Epithelial Cells - UA 0 SEEN /hpf (5-10)
[2023-10-19 17:54] LABS: Glucose, Dipstick Normal (Normal); Ketone-Dipstick 5 mg/dl (Negative); Leukocyte Esterase-Dipstick 100 /ul (Negative); Nitrite-Dipstick Positive (Negative); Occult Blood-Urine 250 /ul (Negative); Protein-Dipstick 100 mg/dl (Negative); Specific Gravity, Urine 1.015 (1.002-1.030); Urine Clarity Cloudy (Clear); Urine Urobilinogen 1 mg/dl (Normal)
[2023-10-19 18:04] LABS: Color, Urine SEE COMMENT BELOW (Yellow); Urine Bilirubin Dipstick 1 mg/dL (Negative)
[2023-10-19 18:06] LABS: Red Blood Cells-Urine > 100 SEEN /hpf (0-5); White Blood Cells 10-25 SEEN /hpf (0-5)
== END | disposition home or self-care (01) ==
PROVIDERS: Physician Assistant Surgical; PCP Family Medicine; Referring Provider Internal Medicine Rheumatology; Visit Provider Internal Medicine Rheumatology
DX: M06.4 Inflammatory polyarthropathy (principal); R76.8 Other specified abnormal immunological findings in serum; M79.7 Fibromyalgia; R30.0 Dysuria; Z79.899 Other long term (current) drug therapy
CPT/HCPCS: 36415; 80053; 81001; 84443; 85025; 87086; 87088

== ENCOUNTER 2023-11-05 09:46 | Outpatient (RCR) | payer MEDICARE, OTHER, SELFPAY | END 2023-11-20 23:59 | LOC: NS 09:46 | PROVIDERS: PCP Family Medicine; Referring Provider Nurse Practitioner Family; Visit Provider Nurse Practitioner Family | DX: Z71.3 Dietary counseling and surveillance (principal); E11.59 Type 2 diabetes mellitus with other circulatory complications; E16.9 Disorder of pancreatic internal secretion, unspecified; E66.9 Obesity, unspecified; Z68.41 Body mass index [BMI] 40.0-44.9, adult | CPT/HCPCS: 97802 ==

== ENCOUNTER → 2023-11-17 | Outpatient (CLI) | payer MEDICARE, OTHER, SELFPAY ==
--- NOTE | 2023-11-17 08:55 | MRI_ITS ---
STUDY: MRI LUMBAR SPINE WITHOUT CONTRAST REASON FOR EXAM: Female, 68 years old. Pain TECHNIQUE: Standardized fat and water weighted pulse sequences were obtained in the sagittal and axial planes. COMPARISON: X-ray November 08, 2023 FINDINGS: The generalized signal intensity of the osseous structures is intact. There is no fracture. There is hemangioma of the L3 vertebra. T12-L1: Normal endplates. Normal disc height, hydration and morphology. Normal bilateral facet joints. Normal central canal and bilateral lateral recesses. Normal bilateral intervertebral neural foramina. Normal lumbar lordosis. There is no substantial scoliosis. Normal conus medullaris that terminates at the L1 level. L1-2: Normal endplates. Normal disc height, hydration and morphology. There is mild spurring of the bilateral facet joints. Normal central canal and bilateral lateral recesses. Normal bilateral intervertebral neural foramina. L2-3: Disc space narrowing. Disc bulge and spurring. Facet spurring with ligamentum flavum hypertrophy. Moderate canal stenosis. Mild foraminal narrowing. L3-4: Disc bulge and spurring. Facet and ligamentum flavum upper chest. Mild canal stenosis. Mild foraminal narrowing. L4-5: Disc bulge and spurring with central disc protrusion, series 10 image 12. Facet spurring and ligamentum flavum upper chest. Moderate canal stenosis. Bilateral foraminal narrowing. L5-S1: Disc bulge with central right paracentral disc protrusion displacing the descending S1 nerve root, series 10 image 6. Facet spurring and ligamentum flavum hypertrophy. Moderate canal stenosis. Right greater than left foraminal narrowing. Normal visualized sacral ala. Normal visualized paraspinous soft tissue structures. MRI/Spine Lumbar (Routine) IMPRESSION: Degenerative change with disc herniations, canal stenosis, and foraminal narrowing. Electronically Signed: Jorge Daigle MD at 11:57 EDT ,
== END | disposition home or self-care (01) ==
LOC: MRI 08:45
PROVIDERS: PCP Family Medicine; Referring Provider Orthopaedic Surgery Orthopaedic Surgery of the Spine; Visit Provider Orthopaedic Surgery Orthopaedic Surgery of the Spine
DX: M54.16 Radiculopathy, lumbar region (principal)
CPT/HCPCS: 72148

== ENCOUNTER → 2023-11-20 | Outpatient (CLI) | payer MEDICARE, OTHER, SELFPAY ==
--- NOTE | 2023-11-20 15:15 | RAD_ITS ---
EXAM: XR ABDOMEN, 1 VIEW CLINICAL INDICATION: KUB- KIDNEY STONE TECHNIQUE: Frontal supine view of the abdomen/pelvis. COMPARISON: No relevant prior studies available. FINDINGS: LOWER THORAX: Lung bases are clear as imaged. GASTROINTESTINAL TRACT: Limited assessment for urolithiasis due to extensive overlying stool and bowel gas which can be seen in volume fecal retention in the colon consistent with constipation. Surgical clips project over the area of the GE junction/stomach. Non-obstructive. No bowel or stomach distention. ORGANS: Infrarenal IVC filter identified. No organomegaly. No abnormal calcifications. BONES/JOINTS: Moderate hip osteoarthrosis bilaterally. Degenerative changes of the spine. Enthesopathy along the iliac crests. SOFT TISSUES: Surgical clips are identified involving the lower abdomen bilaterally and right pelvis. VASCULATURE: Multiple phleboliths in the pelvis. RAD/Abdomen Single View IMPRESSION: Very limited access for urolithiasis due to extensive overlying stool and bowel gas. If still concerned, recommend stone protocol CT abdomen pelvis. Electronically Signed: Max Bautista MD at 4:57 EDT ,
[2023-11-20 15:37] LABS: Absolute Lymphocyte Count 3.19 X10^3/uL (0.83-4.51); Absolute Neutrophil Count 5.1 X10^3/uL (2.0-7.7); Basophil# 0.04 X10^3/uL; Basophil% 0.4 % (0-1); Eosinophil# 0.15 X10^3/uL; Eosinophils% 1.7 % (0-5); Hemoglobin 12.2 g/dL (12.0-15.0); Lymphocyte # 3.19 X10^3/ul (0.83-4.51); Lymphocyte % 35.2 % (19-41); Mean Corp Hgb Conc 32.1 g/dL (32-36); Mean Corpuscular Hgb 29.7 pg (27.0-32.0); Mean Corpuscular Volume 92.5 fL (81-99); Mean Platelet Vol. 9.8 fl (6.2-12.0); Monocyte% 5.5 % (0-10); NRBC Flagged by Analyzer 0 % (0-5); Neutrophil # 5.12 X10^3/uL (2.7-7.7); Neutrophil % 56.6 % (47-70); Platelet Count 309 K/mm3 (150-450); RBC Distribution Width CV 13.5 % (11.6-14.6); RBC Distribution Width SD 45.8 fl (35.1-43.9); Red Blood Count 4.11 M/mm3 (4.2-5.4); White Blood Count 9.1 K/mm3 (4.4-11.0)
[2023-11-20 15:59] LABS: ALB/GLOB Ratio 0.8 RATIO (0.9-2.4); AST(SGOT) 16 U/L (15-37); Alanine Aminotransfer ALT/SGPT 27 U/L (13-56); Albumin, Serum 3.4 g/dL (3.2-5.0); Alkaline Phosphatase 61 U/L (45-117); Anion Gap 6 (5-15); BUN 33 mg/dL (7-18); BUN/Creat Ratio 33.2 RATIO (10-20); Calcium,Total 9.2 mg/dL (8.5-10.1); Chloride 102 mmol/L (98-107); EST Glomerular Filtration Rate 59 mL/min (>60); Est Glom Filt Rate - Afr Amer 72 mL/min (>60); Globulin 4.1 g/dL (2.2-4.2); Glucose 177 mg/dL (74-106); Protein, Total 7.5 g/dL (6.4-8.2); Sodium Level 135 mmol/L (136-145)
== END | disposition home or self-care (01) ==
PROVIDERS: PCP Family Medicine; Referring Provider Internal Medicine Rheumatology; Visit Provider Internal Medicine Rheumatology
DX: M06.4 Inflammatory polyarthropathy (principal); M79.7 Fibromyalgia; R76.8 Other specified abnormal immunological findings in serum; N20.0 Calculus of kidney; Z79.899 Other long term (current) drug therapy
CPT/HCPCS: 36415; 74018; 80053; 85025

== ENCOUNTER → 2023-12-10 | Outpatient (CLI) | payer MEDICARE, OTHER, SELFPAY ==
--- NOTE | 2023-12-10 | CYSPIN_PTH ---
PATIENT: ART BLUE [facility] U#:[id number] AGE/SX: 68/F ROOM: RE12/10/[address]: Dr. Rajani Wharton MD : [id number] BED: DIS: 12/10/2023 SPEC #: [id number] RECD: 12/11/23 10:07 STATUS: WINTER MITCHELL #: [id number] CLAUDIO: 12/10/23 00:[address]: Rajani Wharton DEPT: CYTOLOGY RECD BY: Maria L Carr Tissues: Urine Procedures: Pap Stain (control) Special Stain Group II Cytospin Fluid HEADER OPERATION: Not noted PRE-OP DIAGNOSIS: Gross hematuria TISSUE SUBMITTED: Urine for cytology DIAGNOSIS CYTOLOGY Urine for cytology (cytospin): Negative for high-grade urothelial carcinoma. Abundant fungal organisms present. Acute inflammation. See comment. TAVIA/ 12/11/2023 COMMENT The Aniya System Category II for urine cytology diagnostic categorization was used in the evaluation of this case. CYTOLOGY STUDY Slides are reviewed. CYTOLOGY GROSS Received is 30 ml of gold cloudy fluid labeled with the patient's name and and designated per the requisition as urine. Submitted for cytology preparation. Mr 12/11/2023 TC:2 CPT: 33922
[2023-12-10 18:11] LABS: Cytology, Body Fluid / CSF SEE PATHOLOGY REPORT
== END | disposition home or self-care (01) ==
PROVIDERS: PCP Urology; Referring Provider Urology; Visit Provider Urology
DX: R31.0 Gross hematuria (principal)
CPT/HCPCS: 88108; 88313

== ENCOUNTER 2024-01-11 11:00 | Outpatient (RCR) | payer MEDICARE, OTHER, SELFPAY ==
--- NOTE | 2023-12-14 16:23 | HP.PTEVAL_ITS ---
Patient's Visit Information Visit Information Visit Information: ART BLUE is a 68 year old F referred to Physical Therapy by Dr. Juve Johnson MD with a diagnosis of LUMBAR RADICULOPATHY. Date of Evaluation: 12/14/23 Physical Therapist: Isabella Garcia PT, Cert MDT Visit Plan Frequency: 2-3x /Week Duration: 4-6 Months Plan: AQUATIC THERAPY FOR PAIN RELEIF, POSTURE CORRECTION/STRENGTHENING, IN STRUCTION IN APPROPRIATE BODY MECHANICS AND ACTIVITY MODIFICATIONS. GAIT TRAINING. DLS STARTING WITH A NEUTRAL SPINE PROGRESSING ROM TOLERATED. ANA LE ROM, STRETCHING AND STRENGTHENING. HEP INSTRUCTION. Subjective Subjective: Work/Leisure: RETIRED Present symptoms: INTERMITTENT LOW BACK PAIN. ANA LEG PAIN ESPECIALLY IN CALVES. DIABETIC NEUROPATHY - TINGLING IN TOES. R>L HIP PAIN AND R GROIN PAIN. Present since: CHRONIC Pain Scale: WORST 8/10, LEAST 3/10 Currently: 5/10 Is it getting better, worse or staying the same: STAYING THE SAME Commenced as a result of: RA/FIBROMYALGIA Worse: LEANING OVER TO DO DISHES, STANDING, WALKING, SWEEPING Better: RECLINER, TRAMADOL, AQUATIC THERAPY IN THE PAST Disturbed sleep: NOT LATELY Previous history/Previous treatment: AQUATIC THERAPY, MEDICATION, JESS'S FROM DR. CRISOSTOMO - STOPPED HELPING - LAST WAS A FEW YEARS AGO - DR. CRISOSTOMO RECOMMENDED A SURGEON. NO BACK SURGERY. NO HIP SURGERY. Treatment this episode: TRAMADOL, RA MEDICATIONS. NO SURGERY RECOMMENDED AT THIS TIME. Coughing/sneezing/straining: NEGATIVE FOR INCREASED PAIN. Gait: NO AD'S. TIME AND DISTANCE LIMITED DUE TO PAIN. STEPS ARE PAINFUL. ONE AT A TIME. HAS TO HAVE HR. Bowel or Bladder Dysfunction: NO Accidents: NO Unexplained weight loss: NO Imaging: Degenerative change with disc herniations, canal stenosis, and foraminal narrowing. PMH/Recent major surgery: RA, NIDDM, DIABETIC NEUROPATHY, H/O DVT AND PE THEREFORE ON BLOOD THINNER, GASTRIC BYPASS, HTN, SLEEP APNEA. FIBROMYALGIA. Objective Objective: Sitting/Standing Posture: POOR. REDUCED LORDOSIS BUT NO RELEVANT LATERAL LUMBAR SHIFT. R ILIAC CREST HIGHER THAN L. Other Observations: INDEP GAIT INTO PT WITH A MILD LIMP ON THE R LE AND NO AD. NO LOB. Sensory deficit: ANA LE LIGHT TOUCH SENSATION GROSSLY INTACT AND SYMMETRICAL BUT PATIENT REPORTS ALTERED SENSATION FROM NEUROPATHY. ROM deficit: TIGHT ANA HIP ROTATORS AND C/O R GROIN PAIN WITH R HIP TESTING. Motor deficit: R LE: HIP 4-/5, KNEE 4/5, ANKLE 5/5. L LE: HIP 4/5, KNEE 4/5, ANKLE 5/5. Dural Signs: NEGATIVE ANA LE'S. Lumbar mvmt loss: flex - MIN. ext - BELEN. R SG - MOD. L SG - MOD. PATIENT C/O INCREASED R GROIN PAIN WITH LUMBAR ROM TESTING INTO L SG. Core strength: POOR. Palpation: TENDERNESS WITH PALPATION OF R LATERAL HIP REGION. 30 SEC STS TEST: 6 WITH ONE UE ASSIST. Balance/Special Test Scores Oswestry Low Back Score: 19 Goals Goal 1:: DECREASE C/O LOW BACK AND ANA LE PAIN BY AT LEAST 25% TO EASE ADL'S. Goal Time Frame: 4-6 Weeks Goal 2:: PATIENT WILL COMPLETE 8 STANDS IN 30 SECS WITHOUT UE ASSIST TO DEMONSTRATE IMPROVED FUNCTIONAL STRENGTH Goal Time Frame: 4-6 Weeks Goal 3:: PATIENT WILL SCORE AT LEAST 5 POINTS HIGHER ON THE BACK OSWESTRY QUESTIONNAIRE Goal Time Frame: 4-6 Weeks Goal 4:: PATIENT WILL BE INDEP WITH A WATER AND/OR HEP FOR CONTINUED IMPROVEMENT ONCE FORMAL PHYSICAL THERAPY CONCLUDES. Goal Time Frame: 4-6 Weeks Rehabilitation Potential Physical Therapy Diagnosis: LOW BACK AND LE STIFFNESS. CORE AND LE WEAKNESS. Rehabilitation Potential: Fair Anticipated Interventions Patient/Client Instruction: Educate patient on: Condition, Plan of Care and Risk Factors For the Purpose of:: To improve self management Therapeutic Exercise to Include: Strength training, Body mechanics, Postural training, Flexibilty training, Neuromotor development, In an aquatic setting and Dynamic Lumbar Stabilization For the Purpose of:: To decrease pain, To improve muscle performance and motor function, To increase tolerance to activity/condition/position, To improve ability of physical actions for home/community/work/leisure, To improve gait and locomotor functions and To increase flexibility/ROM Text: Thank you for the opportunity to evaluate your patient. For Medicare and Medicare HMO plans, please review the plan of care and approve it. It will need to be FAXED BACK to us at [phone] for Medicare purposes. For Medicare only, by signing this I certify the plan of care. Please let me know if there are questions or concerns regarding this plan of care. Physician Signature: D ate:
--- NOTE | 2024-01-11 12:01 | HP.PTREVAL ---
Re-Evaluation Intro: Dr. Juve Johnson MD, It has been my pleasure to treat ART BLUE over the last 8 visits for LUMBAR RADICULOPATHY. Please see the progress note below for an update on the physical therapy plan of care! Subjective Subjective: PATIENT REPORTS THE WATER EX HAS BEEN HELPING HER ANA CALF PAIN. SHE REPORTS SHE FEELS STRONGER AND HER BALANCE EVEN FEELS BETTER. APPT WITH DR. SHEIKH NEXT SUNDAY FOR R HIP PAIN (HAS BEEN 1 YEAR SINCE SHE SAW HIM). STATES HER R HIP PAIN IS CONTINUING TO GET WORSE DESPITE THE WATER THERAPY. Objective Objective/Function: THIS PATIENT PRESENTS TO PT LIMPING ON HER R LE. SHE REPORTS SHE HAS A CANE AND A WALKER AT HOME AND SHE USES THEM OFF AND ON IN THE HOUSE BUT NOT OUT IN PUBLIC. SHE STATES SHE DOESN'T REALLY KNOW HOW TO USE THEM. UPON EXAM TODAY HER TEST RESULTS ARE SIMILAR TO INITIAL EVAL EXCEPT SHE IS HAVING GREATER PAIN, WEAKNESS AND STIFFNESS IN THE R HIP. ROM deficit: TIGHT ANA HIP ROTATORS AND C/O R GROIN PAIN WITH R HIP TESTING IR > ER. Motor deficit: R LE: HIP 3+/5, KNEE 4/5, ANKLE 5/5. L LE: HIP 4/5, KNEE 4/5, ANKLE 5/5. Dural Signs: NEGATIVE ANA LE'S. Lumbar mvmt loss: flex - MOD. ext - BELEN. R SG - MOD. L SG - MOD. PATIENT C/O INCREASED R GROIN PAIN WITH LUMBAR ROM TESTING INTO L SG AND R LATERAL HIP PAIN WITH LUMBAR FLEXION TESTING TODAY. Core strength: FAIR Palpation: TENDERNESS WITH PALPATION OF R LATERAL HIP REGION. 30 SEC STS TEST: NT DUE TO R HIP PAIN TODAY. ABLE TO TRANSFER SIT TO STAND WITH ONE UE ASSIST BUT INCREASES R HIP PAIN. PATIENT RECEPTIVE TO GAIT TRAINING AND DEMO'S MUCH IMPROVED GAIT PATTERN AND PAIN REDUCTION WITH USE OF CANE. Plan Plan Plan: HOLD PT PENDING OUTCOME OF ORTHO CONSULT. PATIENT AGREEABLE. RE-CHECK WITH PT IF FURTHER PT ORDERED FOR NEW POC. Balance/Gait/Functional tests Balance/Special Test Scores Oswestry Low Back Score: 21 Goals Goals Goal 1:: DECREASE C/O LOW BACK AND ANA LE PAIN BY AT LEAST 25% TO EASE ADL'S. Goal Time Frame: 4-6 Weeks Goal Progress: R HIP IS GETTING WORSE Goal 2:: PATIENT WILL COMPLETE 8 STANDS IN 30 SECS WITHOUT UE ASSIST TO DEMONSTRATE IMPROVED FUNCTIONAL STRENGTH Goal Time Frame: 4-6 Weeks Goal Progress: Not Progressing Goal 3:: PATIENT WILL SCORE AT LEAST 5 POINTS HIGHER ON THE BACK OSWESTRY QUESTIONNAIRE Goal Time Frame: 4-6 Weeks Goal Progress: Not Progressing Goal 4:: PATIENT WILL BE INDEP WITH A WATER AND/OR HEP FOR CONTINUED IMPROVEMENT ONCE FORMAL PHYSICAL THERAPY CONCLUDES. Goal Time Frame: 4-6 Weeks Goal Progress: Not Progressing Anticipated Interventions Anticipated Interventions Patient/Client Instruction: Educate patient on: Condition, Plan of Care and Risk Factors For the Purpose of:: To improve self management Therapeutic Exercise to Include: Strength training, Body mechanics, Postural training, Flexibilty training, Neuromotor development, In an aquatic setting and Dynamic Lumbar Stabilization For the Purpose of:: To decrease pain, To improve muscle performance and motor function, To increase tolerance to activity/condition/position, To improve ability of physical actions for home/community/work/leisure, To improve gait and locomotor functions and To increase flexibility/ROM Re-Evaluation Ending Re-evaluation ending: Please do not hesitate to contact me at [phone] by phone or if you have questions or concerns regarding this new plan of care! Sincerely, Isabella Garcia, PT, Cert MDT
--- NOTE | 2024-05-29 15:26 | HP.PT.NRP ---
Patient Information Patient Information: ART BLUE was seen in my office for initial evaluation on 12/14/23. The following Plan of Care was established for this patient: POC Established Initial Frequency: 2-3x /Week Initial Duration: 4-6 Months Anticipated Interventions Patient/Client Instruction: Educate patient on: Condition, Plan of Care and Risk Factors For the Purpose of:: To improve self management Therapeutic Exercise to Include: Strength training, Body mechanics, Postural training, Flexibilty training, Neuromotor development, In an aquatic setting and Dynamic Lumbar Stabilization For the Purpose of:: To decrease pain, To improve muscle performance and motor function, To increase tolerance to activity/condition/position, To improve ability of physical actions for home/community/work/leisure, To improve gait and locomotor functions and To increase flexibility/ROM Last Seen Last Seen: This patient was last seen in our office 01/11/24. Pertinent comments regarding their Physical therapy will appear below: It has been my pleasure to see this patient for a total of 8 visits. This patient has not returned to Physical Therapy for more visits and is appropriate to return to MD for further follow-up as needed. At this point I will be discontinuing this patient from physical therapy. I would be happy to see this patient again in the future if found appropriate by the physician. Thank you! Isabella Garcia, PT, Cert MDT Balance/Gait/Functional tests Balance/Special Test Scores Oswestry Low Back Score: 21
== END 2024-01-11 19:00 | disposition home or self-care (01) ==
LOC: PT 11:00
PROVIDERS: PCP Urology; Referring Provider Orthopaedic Surgery Orthopaedic Surgery of the Spine; Visit Provider Orthopaedic Surgery Orthopaedic Surgery of the Spine
DX: M54.16 Radiculopathy, lumbar region (principal)
CPT/HCPCS: 97113; 97162; 97530

== ENCOUNTER → 2024-01-21 | Outpatient (CLI) | payer MEDICARE, OTHER, SELFPAY ==
[2024-01-21 12:21] LABS: Absolute Lymphocyte Count 2.22 X10^3/uL (0.83-4.51); Absolute Neutrophil Count 5.1 X10^3/uL (2.0-7.7); Basophil# 0.05 X10^3/uL; Basophil% 0.6 % (0-1); Eosinophil# 0.14 X10^3/uL; Eosinophils% 1.7 % (0-5); Hematocrit 38.5 % (37-47); Hemoglobin 12.5 g/dL (12.0-15.0); Lymphocyte # 2.22 X10^3/ul (0.83-4.51); Lymphocyte % 27.7 % (19-41); Mean Corp Hgb Conc 32.5 g/dL (32-36); Mean Corpuscular Hgb 30.6 pg (27.0-32.0); Mean Corpuscular Volume 94.4 fL (81-99); Mean Platelet Vol. 9.7 fl (6.2-12.0); Monocyte# 0.51 X10^3/uL; Monocyte% 6.4 % (0-10); NRBC Flagged by Analyzer 0 % (0-5); Neutrophil # 5.06 X10^3/uL (2.7-7.7); Neutrophil % 63.2 % (47-70); Platelet Count 321 K/mm3 (150-450); RBC Distribution Width CV 14.5 % (11.6-14.6); RBC Distribution Width SD 49.8 fl (35.1-43.9); Red Blood Count 4.08 M/mm3 (4.2-5.4)
[2024-01-21 12:36] LABS: ALB/GLOB Ratio 0.9 RATIO (0.9-2.4); AST(SGOT) 13 U/L (15-37); Alanine Aminotransfer ALT/SGPT 29 U/L (13-56); Albumin, Serum 3.4 g/dL (3.2-5.0); Alkaline Phosphatase 71 U/L (45-117); Anion Gap 3 (5-15); BUN 18 mg/dL (7-18); Calcium,Total 9.2 mg/dL (8.5-10.1); Chloride 102 mmol/L (98-107); Creatinine, Serum 0.95 mg/dL (0.55-1.02); EST Glomerular Filtration Rate 63 mL/min (>60); Est Glom Filt Rate - Afr Amer 76 mL/min (>60); Globulin 3.9 g/dL (2.2-4.2); Glucose 112 mg/dL (74-106); Potassium 4.1 mmol/L (3.5-5.1); Protein, Total 7.3 g/dL (6.4-8.2); Sodium Level 137 mmol/L (136-145)
== END | disposition home or self-care (01) ==
LOC: MTLAB 10:52
PROVIDERS: PCP Urology; Referring Provider Internal Medicine Rheumatology; Visit Provider Internal Medicine Rheumatology
DX: M06.4 Inflammatory polyarthropathy (principal); R76.8 Other specified abnormal immunological findings in serum; M79.7 Fibromyalgia; Z79.899 Other long term (current) drug therapy
CPT/HCPCS: 36415; 80053; 85025

== ENCOUNTER → 2024-03-17 | Outpatient (CLI) | payer MEDICARE, OTHER, SELFPAY ==
[2024-03-17 10:23] LABS: Absolute Neutrophil Count 4.4 X10^3/uL (2.0-7.7); Basophil# 0.04 X10^3/uL; Basophil% 0.6 % (0-1); Eosinophil# 0.13 X10^3/uL; Eosinophils% 1.9 % (0-5); Hematocrit 35.6 % (37-47); Hemoglobin 11.3 g/dL (12.0-15.0); Lymphocyte % 28.5 % (19-41); Mean Corp Hgb Conc 31.7 g/dL (32-36); Mean Corpuscular Hgb 30.2 pg (27.0-32.0); Mean Corpuscular Volume 95.2 fL (81-99); Mean Platelet Vol. 9.7 fl (6.2-12.0); Monocyte# 0.38 X10^3/uL; Monocyte% 5.4 % (0-10); NRBC Flagged by Analyzer 0 % (0-5); Neutrophil # 4.43 X10^3/uL (2.7-7.7); Platelet Count 281 K/mm3 (150-450); RBC Distribution Width CV 14.3 % (11.6-14.6); RBC Distribution Width SD 49.5 fl (35.1-43.9); Red Blood Count 3.74 M/mm3 (4.2-5.4)
[2024-03-17 10:51] LABS: ALB/GLOB Ratio 0.8 RATIO (0.9-2.4); AST(SGOT) 20 U/L (15-37); Alanine Aminotransfer ALT/SGPT 34 U/L (13-56); Alkaline Phosphatase 66 U/L (45-117); Anion Gap 8 (5-15); BUN 27 mg/dL (7-18); BUN/Creat Ratio 32.3 RATIO (10-20); Calcium,Total 8.6 mg/dL (8.5-10.1); Chloride 103 mmol/L (98-107); Creatinine, Serum 0.84 mg/dL (0.55-1.02); EST Glomerular Filtration Rate 72 mL/min (>60); Est Glom Filt Rate - Afr Amer 87 mL/min (>60); Glucose 184 mg/dL (74-106); Potassium 3.8 mmol/L (3.5-5.1); Sodium Level 139 mmol/L (136-145)
== END | disposition home or self-care (01) ==
LOC: MTLAB 08:58
PROVIDERS: PCP Family Medicine; Referring Provider Internal Medicine Rheumatology; Visit Provider Internal Medicine Rheumatology
DX: M06.4 Inflammatory polyarthropathy (principal); R76.8 Other specified abnormal immunological findings in serum; M79.7 Fibromyalgia; Z79.899 Other long term (current) drug therapy
CPT/HCPCS: 36415; 80053; 85025

== ENCOUNTER → 2024-04-09 | Outpatient (CLI) | payer MEDICARE, OTHER, SELFPAY ==
--- NOTE | 2024-04-09 10:37 | RAD_ITS ---
STUDY: X-RAY CHEST REASON FOR EXAM: Female, 68 years old. Shortness of breath with cough. TECHNIQUE: Frontal and lateral views of the chest. COMPARISON: April 19, 2023 FINDINGS: The lungs are clear and expanded. Resolution of right pleural effusion is present study. Mild cardiomegaly unchanged. Normal mediastinum and luda. Normal visualized pulmonary arteries. Aortic tortuosity with calcification unchanged. Normal visualized thoracic spine. Normal visualized ribs, clavicles, and shoulders. No abnormality of the visualized soft tissue structures of the upper abdomen. RAD/Chest PA and Lateral IMPRESSION: Resolution of right pleural effusion. At present, no active or acute cardiopulmonary disease. Electronically Signed: Chevy Benitez MD at 10:58 EDT ,
== END | disposition home or self-care (01) ==
PROVIDERS: PCP Family Medicine; Referring Provider Internal Medicine Pulmonary Disease; Visit Provider Internal Medicine Pulmonary Disease
DX: R06.02 Shortness of breath (principal); R05.9 Cough, unspecified
CPT/HCPCS: 71046; 87070; 87205

== ENCOUNTER → 2024-05-16 | Outpatient (CLI) | payer MEDICARE, OTHER, SELFPAY ==
--- NOTE | 2024-05-16 11:44 | RAD_ITS ---
INDICATION: TOE INJURY 2nd toe pain on left foot- luggage fell on it EXAMINATION/TECHNIQUE: X-RAY - LEFT FOOT XR Toes Min 2 Views 3 VIEWS COMPARISON: No relevant prior comparison study available FINDINGS: BONES: No acute fracture midshaft distal phalanx of the second digit not significantly displaced. Flexion at the PIP joints/hammertoe deformity of the second digit. JOINTS: No dislocation. SOFT TISSUES: Unremarkable. RAD/Toe(s) Min 2 Views IMPRESSION: Acute nondisplaced fracture distal phalanx second digit. Electronically Signed: Maia Mckee MD at 22:20 EDT ,
--- NOTE | 2024-05-16 11:44 | RAD_ITS ---
INDICATION: COUGH EXAMINATION/TECHNIQUE: X-RAY - XR Chest 2 Views COMPARISON: Prior study dated: 04/09/2024 FINDINGS: LINES/DEVICES: None. LUNGS: No consolidation. No pneumothorax. MEDIASTINUM: Aorta is atherosclerotic. CARDIAC SILHOUETTE: Not enlarged. BONES AND SOFT TISSUES: No acute abnormalities. RAD/Chest PA and Lateral IMPRESSION: No evidence of active intrathoracic disease. Electronically Signed: Maia Mckee MD at 22:17 EDT ,
== END | disposition home or self-care (01) ==
LOC: MTRAD 11:43
PROVIDERS: PCP Family Medicine; Referring Provider Family Medicine; Visit Provider Family Medicine
DX: R05.8 Other specified cough (principal); S99.922A Unspecified injury of left foot, initial encounter; X58.XXXA Exposure to other specified factors, initial encounter
CPT/HCPCS: 71046; 73660

== ENCOUNTER → 2024-06-06 | Outpatient (CLI) | payer MEDICARE, OTHER, SELFPAY ==
[2024-06-06 12:30] LABS: ALB/GLOB Ratio 0.9 RATIO (0.9-2.4); AST(SGOT) 24 U/L (15-37); Alanine Aminotransfer ALT/SGPT 27 U/L (13-56); Albumin, Serum 3.3 g/dL (3.2-5.0); Alkaline Phosphatase 66 U/L (45-117); Anion Gap 7 (5-15); BUN 23 mg/dL (7-18); BUN/Creat Ratio 22.8 RATIO (10-20); Calcium,Total 8.7 mg/dL (8.5-10.1); Chloride 105 mmol/L (98-107); Creatinine, Serum 1.01 mg/dL (0.55-1.02); EST Glomerular Filtration Rate 58 mL/min (>60); Est Glom Filt Rate - Afr Amer 70 mL/min (>60); Globulin 3.7 g/dL (2.2-4.2); Glucose 152 mg/dL (74-106); Potassium 4.2 mmol/L (3.5-5.1); Sodium Level 141 mmol/L (136-145)
[2024-06-06 12:37] LABS: Absolute Lymphocyte Count 2.54 X10^3/uL (0.83-4.51); Absolute Neutrophil Count 5.9 X10^3/uL (2.0-7.7); Basophil# 0.06 X10^3/uL; Basophil% 0.6 % (0-1); Eosinophil# 0.14 X10^3/uL; Eosinophils% 1.5 % (0-5); Hematocrit 35.6 % (37-47); Hemoglobin 11.6 g/dL (12.0-15.0); Lymphocyte # 2.54 X10^3/ul (0.83-4.51); Lymphocyte % 27.1 % (19-41); Mean Corp Hgb Conc 32.6 g/dL (32-36); Mean Corpuscular Hgb 31.9 pg (27.0-32.0); Mean Corpuscular Volume 97.8 fL (81-99); Monocyte# 0.65 X10^3/uL; Monocyte% 6.9 % (0-10); NRBC Flagged by Analyzer 0 % (0-5); Neutrophil # 5.89 X10^3/uL (2.7-7.7); Neutrophil % 62.7 % (47-70); Platelet Count 339 K/mm3 (150-450); RBC Distribution Width CV 14.7 % (11.6-14.6); RBC Distribution Width SD 52.5 fl (35.1-43.9); Red Blood Count 3.64 M/mm3 (4.2-5.4); White Blood Count 9.4 K/mm3 (4.4-11.0)
== END | disposition home or self-care (01) ==
LOC: MTLAB 10:51
PROVIDERS: PCP Family Medicine; Referring Provider Internal Medicine Rheumatology; Visit Provider Internal Medicine Rheumatology
DX: M06.4 Inflammatory polyarthropathy (principal); R76.8 Other specified abnormal immunological findings in serum; M79.7 Fibromyalgia; Z79.899 Other long term (current) drug therapy
CPT/HCPCS: 36415; 80053; 85025

== ENCOUNTER → 2024-07-07 | Outpatient (CLI) | payer MEDICARE, OTHER, SELFPAY ==
--- NOTE | 2024-07-07 12:54 | CT_ITS ---
EXAM: CT CHEST, LUNG CANCER SCREENING WITHOUT INTRAVENOUS CONTRAST CLINICAL INDICATION: screening TECHNIQUE: Helically acquired images were obtained of the chest without intravenous contrast using low dose (LDCT) lung cancer screening protocol. This CT exam was performed using one or more of the following dose reduction techniques: automated exposure control, adjustment of the mA and/or kV according to patient size, and/or use of iterative reconstruction technique. COMPARISON: No relevant prior studies available. FINDINGS: LUNGS AND PLEURAL SPACES: There is mild scarring in the lung bases. No mass. No pleural effusion or thickening. No pneumothorax. HEART: Unremarkable. Heart size is normal. No pericardial effusion. No significant coronary artery calcifications. MEDIASTINUM: Unremarkable. No mediastinal or hilar adenopathy. Esophagus is unremarkable. No hiatal hernia. THYROID: Unremarkable. No thyroid lesions. BONES/JOINTS: Unremarkable. No suspicious lytic or blastic abnormality. VASCULATURE: Unremarkable. Thoracic aorta is non-dilated. LYMPH NODES: Unremarkable. No enlarged lymph nodes. CT/Low Dose CT Lung Screening IMPRESSION: Minimal scarring lung bases. There is no acute pulmonary abnormality. Lung-RADS score: 1 - Recommend continued annual screening with a low-dose CT (LDCT) in 12 months. Electronically Signed: Willie Hua MD at 17:02 [facility] ,
== END | disposition home or self-care (01) ==
LOC: CT 12:51
PROVIDERS: PCP Family Medicine; Referring Provider Nurse Practitioner Family; Visit Provider Nurse Practitioner Family
DX: Z12.2 Encounter for screening for malignant neoplasm of respiratory organs (principal); F17.210 Nicotine dependence, cigarettes, uncomplicated
CPT/HCPCS: 71271

== ENCOUNTER → 2024-07-09 | Outpatient (CLI) | payer MEDICARE, OTHER, SELFPAY ==
[2024-07-09 14:19] LABS: Synovial Fld Mononuclear WBC # 0.268 10^3/ul; Synovial Fld Mononuclear WBC % 45.5 %; Synovial Fld Polynuclear WBC # 0.322 10^3/uL; Synovial Fld Polynuclear WBC % 54.5 %
[2024-07-09 14:44] LABS: AUTO B FLUID DILUENT BKGD CT WBC <0.1 RBC <0.01 (W<.1,R<.01); Appearance /Synovial Fluid Cloudy (CLEAR); Color / Synovial Fluid Red (Pale Yellow); Source / Synovial Fluid RIGHT HIP
[2024-07-09 15:17] LABS: Body Fluid QC Type(s) BF1Q; Lymph 11 %; Monocyte /Synovial Fluid 13 %; Neutrophil 68 % (0-25); Other Cell /Synovial Fluid 8 %
[2024-07-11 13:55] LABS: Pathologist Comment Reviewed
== END | disposition home or self-care (01) ==
LOC: LABSPEC 12:07
PROVIDERS: PCP Family Medicine; Referring Provider Internal Medicine Rheumatology; Visit Provider Internal Medicine Rheumatology
DX: M06.4 Inflammatory polyarthropathy (principal); M25.551 Pain in right hip; R76.8 Other specified abnormal immunological findings in serum; M79.7 Fibromyalgia
CPT/HCPCS: 89050; 89051

== ENCOUNTER → 2024-08-01 | Outpatient (CLI) | payer MEDICARE, OTHER, SELFPAY ==
[2024-08-01 15:23] LABS: Absolute Lymphocyte Count 2.59 X10^3/uL (0.83-4.51); Absolute Neutrophil Count 3.4 X10^3/uL (2.0-7.7); Basophil# 0.07 X10^3/uL; Eosinophil# 0.15 X10^3/uL; Eosinophils% 2.2 % (0-5); Hemoglobin 12.2 g/dL (12.0-15.0); Lymphocyte # 2.59 X10^3/ul (0.83-4.51); Mean Corpuscular Hgb 31.1 pg (27.0-32.0); Mean Corpuscular Volume 94.4 fL (81-99); Mean Platelet Vol. 9.7 fl (6.2-12.0); Monocyte# 0.51 X10^3/uL; Monocyte% 7.5 % (0-10); NRBC Flagged by Analyzer 0 % (0-5); Neutrophil # 3.43 X10^3/uL (2.7-7.7); Neutrophil % 50.3 % (47-70); Platelet Count 382 K/mm3 (150-450); RBC Distribution Width CV 14.5 % (11.6-14.6); RBC Distribution Width SD 49.3 fl (35.1-43.9); Red Blood Count 3.92 M/mm3 (4.2-5.4); White Blood Count 6.8 K/mm3 (4.4-11.0)
[2024-08-01 15:39] LABS: Vitamin B12 > 2000 pg/mL (211-911)
[2024-08-01 15:47] LABS: Iron 57 ug/dL (50-170); Iron Binding Capacity,Total 304 ug/dL (250-450); PERCENT IRON SATURATION 18.8 % (15.0-55.0)
[2024-08-01 19:41] LABS: Hemoglobin A1c 7.2 % (3.8-5.6)
== END | disposition home or self-care (01) ==
LOC: MFPLAB 11:38
PROVIDERS: PCP Family Medicine; Referring Provider Family Medicine; Visit Provider Family Medicine
DX: D64.9 Anemia, unspecified (principal); E11.9 Type 2 diabetes mellitus without complications
CPT/HCPCS: 36415; 82607; 83036; 83540; 83550; 85025

== ENCOUNTER → 2024-08-04 | Outpatient (CLI) | payer MEDICARE, OTHER, SELFPAY ==
--- NOTE | 2024-08-04 10:42 | BD_ITS ---
STUDY: DUAL ENERGY X-RAY ABSORPTIOMETRY / DXA REASON FOR EXAM: Female, 68 years old. V76.12ScreeningBONE DENSITY REASON FOR EXAM TECHNIQUE: Bone Mineral Density (BMD) measurements of lumbar spine and bilateral hips were obtained. COMPARISON: Comparison is made with prior study April 13, 2022. FINDINGS: Lumbar Spine (L1-L4): g/cm2 (1.330) / T-score (2.1) / Z-score (4.1) Findings are suggestive of normal bone density with a low fracture risk. Left Femur Total: g/cm2 (1.069) / T-score (1.0) / Z-score (2.4) Left Femoral Neck: g/cm2 (0.882) / T-score (0.3) / Z-score (2.0) Right Femur Total: g/cm2 (1.070) / T-score (1.0) / Z-score (2.4) Right Femoral Neck: g/cm2 (0.881) / T-score (0.3) / Z-score (2.0) The T-Scores on the most recent prior examination were: Lumbar Spine (L1-L4): There has been improvement of bone density since the previous examination. Left Femur Total: which represents an improvement of 3.6%. Right Femur Total: which represents no significant change. . BD/Dexa Bone Density Study IMPRESSION: The patient is considered normal as outlined below according to World [employer] Organization (WHO) criteria with a low fracture risk. There has been improvement of bone density since the previous examination. Reference Information: The T-score is the number of standard deviations above or below the standard which is normal for young adults at their peak bone mineral density. The World Health Organization (WHO) interprets the T-scores as follows: Above -1 Normal bone density Between -1 and -2.5 Osteopenia Equal to / or below -2.5 Osteoporosis As a practical clinical guideline, osteopenia may be graded as follows: Mild -1 through -1.5 Moderate -1.6 through -2.0 Severe -2.1 through -2.4 The Z-score is the number of standard deviations above or below age-matched controls. A Z-score of less than -1.5 would be considered abnormal. References: 1. NIH Osteoporosis and Related Bone Diseases www osteo.org 2. International Society for Clinical Densitometry www iscd.org 3. National Osteoporosis Foundation www nof.org Electronically Signed: Karlo Portillo MD at 14:42 EST ,
== END | disposition home or self-care (01) ==
LOC: OPBD 10:41
PROVIDERS: PCP Family Medicine; Referring Provider Nurse Practitioner Family; Visit Provider Nurse Practitioner Family
DX: Z13.820 Encounter for screening for osteoporosis (principal); M81.0 Age-related osteoporosis without current pathological fracture
CPT/HCPCS: 77080

== ENCOUNTER → 2024-08-28 | Outpatient (CLI) | payer MEDICARE, OTHER, SELFPAY ==
[2024-08-28 15:30] LABS: Absolute Lymphocyte Count 2.19 X10^3/uL (0.83-4.51); Absolute Neutrophil Count 5.8 X10^3/uL (2.0-7.7); Basophil# 0.05 X10^3/uL; Basophil% 0.6 % (0-1); Eosinophil# 0.15 X10^3/uL; Eosinophils% 1.7 % (0-5); Hematocrit 36.8 % (37-47); Hemoglobin 11.9 g/dL (12.0-15.0); Lymphocyte # 2.19 X10^3/ul (0.83-4.51); Lymphocyte % 25.2 % (19-41); Mean Corp Hgb Conc 32.3 g/dL (32-36); Mean Corpuscular Hgb 31.1 pg (27.0-32.0); Mean Corpuscular Volume 96.1 fL (81-99); Mean Platelet Vol. 10.3 fl (6.2-12.0); Monocyte% 4.6 % (0-10); NRBC Flagged by Analyzer 0 % (0-5); Neutrophil # 5.84 X10^3/uL (2.7-7.7); Neutrophil % 67.3 % (47-70); Platelet Count 329 K/mm3 (150-450); RBC Distribution Width CV 15.1 % (11.6-14.6); RBC Distribution Width SD 51.8 fl (35.1-43.9); Red Blood Count 3.83 M/mm3 (4.2-5.4); White Blood Count 8.7 K/mm3 (4.4-11.0)
[2024-08-28 15:49] LABS: ALB/GLOB Ratio 0.8 RATIO (0.9-2.4); AST(SGOT) 18 U/L (15-37); Alanine Aminotransfer ALT/SGPT 30 U/L (13-56); Albumin, Serum 3.4 g/dL (3.2-5.0); Alkaline Phosphatase 62 U/L (45-117); Anion Gap 8 (5-15); BUN 14 mg/dL (7-18); BUN/Creat Ratio 13.6 RATIO (10-20); Calcium,Total 9.1 mg/dL (8.5-10.1); Chloride 102 mmol/L (98-107); Creatinine, Serum 1.03 mg/dL (0.55-1.02); EST Glomerular Filtration Rate 57 mL/min (>60); Est Glom Filt Rate - Afr Amer 69 mL/min (>60); Glucose 180 mg/dL (74-106); Potassium 4.2 mmol/L (3.5-5.1); Protein, Total 7.4 g/dL (6.4-8.2); Sodium Level 136 mmol/L (136-145)
== END | disposition home or self-care (01) ==
LOC: MTLAB 11:00
PROVIDERS: PCP Family Medicine; Referring Provider Internal Medicine Rheumatology; Visit Provider Internal Medicine Rheumatology
DX: M06.4 Inflammatory polyarthropathy (principal); Z79.899 Other long term (current) drug therapy
CPT/HCPCS: 36415; 80053; 85025

== ENCOUNTER → 2024-09-29 | Outpatient (CLI) | payer MEDICARE, OTHER, SELFPAY ==
--- NOTE | 2024-09-29 13:45 | CT_ITS ---
EXAM: CT Abdomen and Pelvis With Intravenous Contrast CLINICAL INDICATION: TECHNIQUE: Axial computed tomography images of the abdomen and pelvis with intravenous contrast. This CT exam was performed using one or more of the following dose reduction techniques: automated exposure control, adjustment of the mA and/or kV according to patient size, and/or use of iterative reconstruction technique. COMPARISON: CT Abdomen Pelvis dated 10/01/2023 FINDINGS: LUNG BASES: Partially visualized lung emphysema. No consolidation. ABDOMEN: LIVER: Hepatomegaly with fatty infiltration. GALLBLADDER AND BILE DUCTS: Unremarkable. No calcified stones. No ductal dilation. PANCREAS: Unremarkable. No mass. No ductal dilation. SPLEEN: Unremarkable. No splenomegaly. ADRENALS: Unremarkable. No mass. KIDNEYS AND URETERS: 5 mm calculus of the right renal pelvis without obstruction. STOMACH AND BOWEL: Colonic diverticulosis without acute diverticulitis. No obstruction. PELVIS: APPENDIX: No findings to suggest acute appendicitis. BLADDER: Unremarkable. No mass. REPRODUCTIVE: Unremarkable as visualized. ABDOMEN and PELVIS: INTRAPERITONEAL SPACE: Unremarkable. No free air. No significant fluid collection. BONES/JOINTS: Degenerative disc disease throughout the lumbar spine. Degenerative facet arthropathy throughout the lumbar spine, most prominent in the lower lumbar spine. No acute fracture. No dislocation. SOFT TISSUES: Unremarkable. VASCULATURE: Indwelling IVC filter. Scattered calcified atherosclerotic disease of aorta. No abdominal aortic aneurysm. LYMPH NODES: Unremarkable. No enlarged lymph nodes. CT/Abdomen/Pelvis W IV Cont ONLY IMPRESSION: 1. Hepatomegaly with fatty infiltration. 2. 5 mm calculus of the right renal pelvis without obstruction. 3. Colonic diverticulosis without acute diverticulitis. 4. Degenerative changes lumbar spine as described. Reading [facility]
== END | disposition home or self-care (01) ==
LOC: CT 13:44
PROVIDERS: PCP Family Medicine; Referring Provider Internal Medicine Medical Oncology; Visit Provider Internal Medicine Medical Oncology
DX: R16.0 Hepatomegaly, not elsewhere classified (principal); N20.0 Calculus of kidney; K57.90 Diverticulosis of intestine, part unspecified, without perforation or abscess without bleeding
CPT/HCPCS: 74177

== ENCOUNTER → 2024-10-23 | Outpatient (CLI) | payer MEDICARE, OTHER, SELFPAY ==
[2024-10-23 16:17] LABS: Absolute Lymphocyte Count 2.17 X10^3/uL (0.83-4.51); Basophil# 0.05 X10^3/uL; Basophil% 0.4 % (0-1); Eosinophil# 0.13 X10^3/uL; Eosinophils% 1.2 % (0-5); Hematocrit 38.1 % (37-47); Hemoglobin 12.6 g/dL (12.0-15.0); Lymphocyte # 2.17 X10^3/ul (0.83-4.51); Lymphocyte % 19.5 % (19-41); Mean Corp Hgb Conc 33.1 g/dL (32-36); Mean Corpuscular Volume 93.8 fL (81-99); Mean Platelet Vol. 10.4 fl (6.2-12.0); Monocyte# 0.69 X10^3/uL; Monocyte% 6.2 % (0-10); NRBC Flagged by Analyzer 0 % (0-5); Neutrophil # 8.01 X10^3/uL (2.7-7.7); Neutrophil % 71.8 % (47-70); Platelet Count 362 K/mm3 (150-450); RBC Distribution Width CV 14.7 % (11.6-14.6); Red Blood Count 4.06 M/mm3 (4.2-5.4); White Blood Count 11.2 K/mm3 (4.4-11.0)
[2024-10-23 16:54] LABS: ALB/GLOB Ratio 1.4 RATIO (0.9-2.4); AST(SGOT) 21 U/L (<=31); Alanine Aminotransfer ALT/SGPT 20 U/L (<=34); Albumin, Serum 4.3 g/dL (3.4-4.8); Alkaline Phosphatase 57 U/L (35-104); Anion Gap 15 (5-15); BUN 18 mg/dL (4-19); BUN/Creat Ratio 21.9 RATIO (10-20); Calcium,Total 9.5 mg/dL (7.6-11.0); Carbon Dioxide 23.9 mmol/L (21.0-32.0); Chloride 100 mmol/L (98-108); Creatinine, Serum 0.84 mg/dL (0.70-1.20); EST Glomerular Filtration Rate 76 (>60); Globulin 3.2 g/dL (2.2-4.2); Glucose 124 mg/dL (70-99); Potassium 4.2 mmol/L (3.3-5.1); Protein, Total 7.4 g/dL (5.9-8.4); Sodium Level 139 mmol/L (133-145); Total Bilirubin 0.27 mg/dL (0.00-1.30)
== END | disposition home or self-care (01) ==
LOC: MTLAB 11:37
PROVIDERS: PCP Family Medicine; Referring Provider Internal Medicine Rheumatology; Visit Provider Internal Medicine Rheumatology
DX: M06.4 Inflammatory polyarthropathy (principal); M25.551 Pain in right hip; R76.8 Other specified abnormal immunological findings in serum; M79.7 Fibromyalgia
CPT/HCPCS: 36415; 80053; 85025

== ENCOUNTER → 2024-11-13 | Outpatient (CLI) | payer MEDICARE, OTHER, SELFPAY ==
[2024-11-13 13:01] LABS: International Normalized Ratio 1.1; Prothrombin Time (Protime)PT. 13.9 SECONDS (11.7-14.9)
== END | disposition home or self-care (01) ==
LOC: MTLAB 08:58
PROVIDERS: PCP Family Medicine; Referring Provider Clinical Nurse Specialist Adult Health; Visit Provider Clinical Nurse Specialist Adult Health
DX: Z79.01 Long term (current) use of anticoagulants (principal)
CPT/HCPCS: 36415; 85610

== ENCOUNTER → 2025-01-07 | Outpatient (CLI) | payer MEDICARE, OTHER, SELFPAY ==
--- NOTE | 2025-01-07 15:19 | RAD_ITS ---
PROCEDURE: ABDOMEN SINGLE VIEW 01/07/2025 REASON FOR EXAM: LOOKING FOR KIDNEY STONES TECHNIQUE: ABDOMEN SINGLE VIEW COMPARISON: 09/29/2024. FINDINGS: Suspected 4 mm right renal stone. No definite calcifications overlying the left kidney. Normal visualized lung bases. There is an unremarkable bowel gas pattern. There is no demonstrated free abdominal air. Normal visualized liver. Normal visualized spleen. Metallic clips are noted in the pelvis. The soft tissue structures of the pelvis are unremarkable. Diffuse spondylosis. Degenerative joint disease. RAD/Abdomen Single View IMPRESSION: Suspected 4 mm right renal stone. No definite calcifications overlying the left kidney. Reading [facility]
[2025-01-07 17:58] LABS: Hematocrit 36.1 % (37-47); Hemoglobin 11.9 g/dL (12.0-15.0); Mean Corpuscular Hgb 30.7 pg (27.0-32.0); Mean Corpuscular Volume 93.3 fL (81-99); Mean Platelet Vol. 10.2 fl (6.2-12.0); Platelet Count 345 K/mm3 (150-450); RBC Distribution Width CV 14.6 % (11.6-14.6); RBC Distribution Width SD 49.4 fl (35.1-43.9); Red Blood Count 3.87 M/mm3 (4.2-5.4); White Blood Count 8.4 K/mm3 (4.4-11.0)
[2025-01-07 18:33] LABS: ALB/GLOB Ratio 1.4 RATIO (0.9-2.4); AST(SGOT) 20 U/L (<=31); Alanine Aminotransfer ALT/SGPT 19 U/L (<=34); Albumin, Serum 4.2 g/dL (3.4-4.8); Alkaline Phosphatase 61 U/L (35-104); Anion Gap 14 (5-15); BUN 20 mg/dL (4-19); Calcium,Total 9.3 mg/dL (7.6-11.0); Chloride 98 mmol/L (98-108); Creatinine, Serum 0.79 mg/dL (0.70-1.20); EST Glomerular Filtration Rate 81 (>60); Globulin 2.9 g/dL (2.2-4.2); Glucose 135 mg/dL (70-99); Potassium 3.8 mmol/L (3.3-5.1); Protein, Total 7.1 g/dL (5.9-8.4); Sodium Level 138 mmol/L (133-145); Total Bilirubin 0.29 mg/dL (0.00-1.30)
--- OUTSIDE RECORDS SUMMARY | 2025-01-07 22:18 | XMS RPT_ITS | CCD ---
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 Autumn Almanzar Primary Care Provider Dr. Autumn Almanzar Referring Provider Dr. Gilberto Rasmussen Attending Provider Autumn Almanzar Primary Care Provider OSIRIS KIM Attending UnavailALLYSON Beasley Referring Unavailable AUTUMN ALMANZAR Primary Care UnavailAutumn Espana Primary Care Provider Dr. Autumn Almanzar Primary Care Provider Dr. Autumn Almanzar Referring Provider Dr. Gilberto Rasmussen Attending Provider Dr. Gilberto Rasmussen Attending Provider Dr. Gilberto Rasmussen Referring Provider DO Deysi Castro Primary Care Provider DO Deysi Castro Referring Provider Dr. Jose Ramon Terry Attending Provider Dr. Librado Benjamin Attending Provider Dr. Max Lara Emergency Provider Dr. Kenney Vizcarra Admit Provider Dr. Kenney Vizcarra Attending Provider Dr. Kenney Vizcarra Other Provider Dr. Neymar Mastesr Attending Provider Dr. Neymar Masters Other Provider Autumn Almanzar Primary Care Provider Gerard South Unavailable Matthew, DO Deysi M Primary Care Provider Dr. Gilberto Rasmussen Attending Provider Dr. Gilberto Rasmussen Referring Provider Roof ASSOCIATE BIOLOGICAL SALES, ASSOCIATE BIOLOGICAL SALES-C Autumn Tanner Attending Provider COTY Guevara Cristina Attending Provider Unavailable Doreen Baig ([facility]) Primary Care Provider Maryam vailable Matthew, DO Deysi M Primary Care Provider Dr. Gilberto Rasmussen Attending Provider Dr. Gilberto Rasmussen Referring Provider Dr. Jose Ramon Mckenzie Attending Provider Matthew, DO Deysi M Primary Care Provider Dr. Gilberto Rasmussen Attending Provider Dr. Gilberto Rasmussen Referring Provider Matthew, DO Deysi M Referring Provider Matthew, DO Deysi M Primary Care Provider Dr. Gilberto Rasmussen Attending Provider Dr. Gilberto Rasmussen Referring Provider Matthew, DO Deysi M Referring Provider Roof ASSOCIATE BIOLOGICAL SALES, ASSOCIATE BIOLOGICAL SALES-C Autumn Tanner Attending Provider COTY Guevara Cristina Attending Provider Unavailable Dr. Jose Ramon Mckenzie Attending Provider Matthew, DO Deysi M Primary Care Provider Matthew, DO Deysi M Referring Provider Dr. Gilberto Rasmussen Attending Provider Dr. Gilberto Rasmussen Referring Provider Scott LANE PA Jovan Baeza Attending Provider Matthew, DO Deysi M Primary Care Provider Matthew, DO Deysi M Referring Provider Matthew, DO Deysi M Primary Care Provider Dr. Gilberto Rasmussen Attending Provider Dr. Gilberto Rasmussen Referring Provider Matthew, DO Deysi M Referring Provider ARIANA Ackerman Attending Provider Dr. Jose Ramon Mckenzie Attending Provider ARIANA Leija Attending Provider Matthew, DO Deyis M Primary Care Provider Dr. Gilberto Rasmussen Attending Provider Dr. Gilberto Rasmussen Referring Provider Dr. Juve Johnson Attending Provider Dr. Librado Benjamin Attending Provider Matthew, DO Deysi M Primary Care Provider Matthew, DO Deysi M Referring Provider Matthew, DO Deysi M Primary Care Provider Meir Zepeda MD Primary Care Provider Aj ASSOCIATE BIOLOGICAL SALES-C, Josefa Attending Provider Aj ASSOCIATE BIOLOGICAL SALES-C, Josefa Referring Provider Dr. Doris Yip MD Attending Provider Dr. Doris Yip MD Referring Provider Dr. Gilberto Rasmussen MD Attending Provider Dr. Gilberto Rasmussen MD Referring Provider Meir Zepeda MD Attending Provider Meir Zepeda MD Referring Provider [phone] Deysi Castro DO Primary Care Provider [phone] Magaly ROONEY, Dr. Albright Attending Provider Magaly ROONEY, Dr. Albright Referring Provider Rachelle ROONEY, Meir Primary Care Provider Aj ASSOCIATE BIOLOGICAL SALES-C, Josefa Attending Provider Aj ASSOCIATE BIOLOGICAL SALES-C, Josefa Referring Provider Theodora ROONEY, Dr. George Attending Provider Theodora ROONEY, Dr. George Referring Provider Alex ROONEY, Dr. An Attending Provider Cassidy ROONEY, Dr. Pavon Attending Provider MUSA Diaz. Candida Attending Provider [phone] MUSA Diaz. [facility] Referring Provider Rachelle ROONEY, [facility] Primary Care Provider [phone] Grady ROONEY, Dr. Macias Attending Provider [phone] Grady ROONEY, Dr. Macias Referring Provider [phone] Rachelle ROONEY, Meir Referring Provider [phone] Dr. Jose Ramon Terry DO Attending Provider Rachelle ROONEY, Meir Primary Care Provider [phone] RACHELLE, CHALON Primary Care Unavailable MOOMAW, LEONARDO Attending Unavailable RACHELLE, CHALON Primary Care Unavailable MOOMAW, LEONARDO Referring Unavailable Wyneski, Rajani Primary Care Unavailable Juve Johnson Attending Unavailable Juve Johnson Referring Unavailable Rachelle, Chalon Primary Care Unavailable Doris Yip Referring Unavailable Doris Yip Attending Unavailable Rachelle, Chalon Primary Care Unavailable Gilberto Rasmussen Referring Unavailable Gilberto Rasmussen Attending Unavailable Rachelle, Chalon Referring Unavailable Rachelle, Chaldaniel Attending Unavailable Rachelle, Chalon Primary Care Unavailable Rachelle, Chalon Primary Care Unavailable Jose Ramon Terry Attending Unavailable Jose Ramon Terry Referring Unavailable Rachelle, Chalon Primary Care Unavailable Aj ASSOCIATE BIOLOGICAL SALES, Josefa Attending Unavailable Aj ASSOCIATE BIOLOGICAL SALES, Josefa Referring Unavailable Rachelle, Chalon Primary Care Unavailable Aj ASSOCIATE BIOLOGICAL SALES, Josefa Attending Unavailable Aj ASSOCIATE BIOLOGICAL SALES, Josefa Referring Unavailable Librado Benjamin Attending Unavailable Wyneski, Rajani Primary Care Unavailable Wyneski, Rajani Primary Care Unavailable Baddour, Gilberto Referring Unavailable Baddour, Gilberto Attending Unavailable Wyneski, Rajani Primary Care Unavailable Wyneski, Rajani Referring Unavailable Jose Ramon Terry Attending Unavailable Rachelle, Chalon Referring Unavailable Rachelle, Chalon Primary Care Unavailable PraJose Ramon tanner Attending Unavailable Rachelle, Chalon Attending Unavailable Rachelle, Chalon Referring Unavailable Rachelle, Chalon Primary Care Unavailable Rachelle, Chalon Primary Care Unavailable Vellanki, Doris Attending Unavailable Vellanki, Doris Referring Unavailable Rachelle, Chalon Primary Care Unavailable Vellanki, Doris Referring Unavailable Vellanki, Doris Attending Unavailable Burbank, Candida Attending Unavailable Burbank, Candida Referring Unavailable Rachelle, Chalon Primary Care Unavailable Rachelle, Chalon Primary Care Unavailable Vellanki, Doris Referring Unavailable Vellanki, Doris Attending Unavailable Jose Ramon Mckenzie Attending Unavailable PraJose Ramon tanner Referring Unavailable Deysi Castro Primary Care Unavailable Rachelle, Chalon Primary Care Unavailable Baddour, Gilberto Attending Unavailable Baddour, Gilberto Referring Unavailable Rachelle, Chalon Primary Care Unavailable Baddour, Gilberto Referring Unavailable Baddour, Gilberto Attending Unavailable Rachelle, Chalon Primary Care Unavailable Baddour, Gilberto Referring Unavailable Baddour, Gilberto Attending Unavailable Juve Johnson Attending Unavailable Rachelle, Chalon Referring Unavailable Rachelle, Chalon Primary Care Unavailable Rachelle, Chalon Primary Care Unavailable Vellanki, Doris Referring Unavailable Vellanki, Doris Attending Unavailable Vellanki, Doris Referring Unavailable Vellanki, Doris Attending Unavailable Wyneski, Rajani Primary Care Unavailable Rachelle, Chalon Referring Unavailable Rachelle, Chalon Primary Care Unavailable Baddour, Gilberto Attending Unavailable Rachelle, Chalon Primary Care Unavailable Baddour, Gilberto Referring Unavailable Baddour, Gilberto Attending Unavailable Rachelle, Chalon Primary Care Unavailable Baddour, Gilberto Referring Unavailable Baddour, Gilberto Attending Unavailable Rachelle, Chalon Primary Care Unavailable Librado Benjamin Attending Unavailable Rachelle, Chalon Referring Unavailable Rachelle, Chalon Primary Care Unavailable Jose Ramon Terry Attending Unavailable Archelle, Chalon Primary Care Unavailable Librado Benjamin Attending Unavailable Rachelle, Chalon Primary Care Unavailable Gilberto Rasmussen Referring Unavailable Gilberto Rasmussen Attending Unavailable Rachelle, Chalon Primary Care Unavailable Gilberto Rasmussen Attending Unavailable Gilberto Rasmussen Referring Unavailable Rachelle, Chalon Primary Care Unavailable SibiliaGerard V Attending Unavailable SibGerard tafoya V Referring Unavailable Rachelle, Chalon Primary Care Unavailable Jose Ramon Mckenzie Attending Unavailable Jose Ramon Mckenzie Referring Unavailable Allergies Allergy Classification Reported Allergen(s) Allergy Type Date of Onset Reaction(s) Facility (20 sources) Amoxicillin Drug Allergy 1 [facility] (20 sources) atorvastatin Drug Allergy 1 myalgiias [facility] Comment on above: muscle pain (20 sources) levoFLOXacin; Translations: [LEVOFLOXACIN] Drug Allergy 1 GI Upset, Vomiting [facility] Work Phone: (6 sources) Amoxicillin / Clavulanate; Translations: [AMOXICILLIN-POT CLAVULANATE] Drug Allergy 5 Rash [facility] Work Phone: (15 sources) atorvastatin; Translations: [ATORVASTATIN CALCIUM] Drug Allergy 5 Myalgia [facility] (15 sources) Sulfamethoxazole / Trimethoprim; Translations: [SULFAMETHOXAZOLE-TR IMETHOPRIM] Drug Allergy 9 GI Upset [facility] (1 source) Amoxicillin Drug Allergy 5 [facility] (1 source) atorvastatin Drug Allergy 5 [facility] (1 source) levoFLOXacin Drug Allergy 5 [facility] Medications Current Medications Medication Drug Class(es) Dates Sig (Normalized) Sig (Original) acetaminophen 325 mg / HYDROcodone bitartrate 5 mg oral tablet (20 sources) Opioid Agonist Start: 03-24-2023 End: 03-31-2023 take 1 tablet by mouth every six hours as needed for pain HYDROcodone-acetami nophen (NORCO) 5-325 mg per tablet Indications: Empyema (HCC) , Postoperative pain , Pain, acute post-thoracotomy Take 1 tablet by mouth every 6 hours as needed for pain for up to 7 days. 28 tablet 0 03/24/2023 03/31/2023 Active Start: 12-15-2018 End: 09-10-2019 Hydrocodone-Acetaminophen 1 EACH tablet Discontinued 1 NMA PO EVERY 4 HOURS NEEDED as needed for Pain December 15, 2018 7:04am September 10, 2019 2:41pm Start: 12-15-2018 End: 09-10-2019 Hydrocodone-Acetaminophen Di scontinued 1 EACH PO EVERY 4 HOURS NEEDED December 15, 2018 7:04am September 10, 2019 2:41pm Comment on above: Take 1 tablet by surjit every 6 hours as needed for pain for up to 7 days. amoxicillin 875 mg / clavulanate 125 mg oral tablet (3 sources) Penicillin-class Antibacterial Start: 3 End: 3 take 1 tablet by mouth twice daily amoxicillin-clav ulanic acid (AUGMENTIN) 875-125 mg per tablet Take 1 tablet by mouth twice daily for 18 days. 36 tablet 0 03/24/2023 04/11/2023 Active Comment on above: Take 1 tablet by surjit twice daily for 18 days. biotin 10 mg oral capsule (20 sources) Start: 4 take 1 capsule by mouth once daily Biotin 10,000 mcg cap Take 1 capsule by mouth once daily. 0 05/13/2014 Active Start: 02-11-2014 End: 05-30-2021 Biotin 10,000 MCG capsule Discontinued 5000 ug PO DAILY February 11, 2014 12:00am May 30, 2021 9:22am Start: 02-11-2014 End: 05-30-2021 take 5000 ug by mouth once daily Biotin Discontinued 5000 MCG PO DAILY February 11, 2014 12:00am May 30, 2021 9:22am Comment on above: Take by mouth. Take 1 capsule by mo [facility] once daily. calcium carbonate 1500 mg / cholecalciferol 500 unt oral capsule (20 sources) Vitamin D Start: 05-30-2021 Calcium Carbonate-Vitamin D3 (Calcium 600 With Vitamin D3) 600 mg(1,500mg) -500 unit capsule Active 1 NMA PO TWICE A DAY May 30, 2021 1:00am Start: 05-30-2021 take 1 capsule by mo [facility] twice daily Calcium Carbonate-Vitamin D3 (Calcium 600 With Vitamin D3) 600 mg(1,500mg) -500 unit capsule Active 1 CAP PO TWICE A DAY May 30, 2021 1:00am Start: 03-28-2007 take 1 tablet by surjit th twice daily Calcium Carb-Cholecalciferol (VINCENT-600 WITH VITAMIN D) 600 (1,500)-200 mg-unit ORAL Tab Take one(1) tablet twice daily. 0 03/28/2007 Active Comment on above: Take one(1) tablet t wice daily. COMPOUNDED PRESCRIPTION (13 sources) Start: 015 COMPOUNDED PRESCRIPTION cpap supplies: DX: sleep apnea 1 Each 0 04/28/2015 Active Comment on above: cpap supplies: DX: s leep apnea dapagliflozin 10 mg oral tablet (3 sources) Sodium-Glucose Cotransporter 2 Inhibitor take 1 tablet by mouth once daily at breakfast dapagliflozin propanediol (FARXIGA) 10 mg tablet Take 10 mg by mouth daily with breakfast. Active DULoxetine 60 mg delayed release oral capsule (7 sources) Serotonin and Norepinephrine Reuptake Inhibitor Start: 024 take 1 capsule by mouth once daily Duloxetine (Cymbalta) 60 mg capsule,delayed release(DR/EC) Active 60 mg PO DAILY January 18, 2024 12:00am ferrous sulfate 325 mg oral tablet (20 sources) Start: 014 take 1 tablet by mouth twice daily Ferrous Sulfate 325 MG tablet Active 325 mg PO TWICE A DAY February 11, 2014 12:00am Start: 02-11-2014 take 325 mg by mouth once viviana y Ferrous Sulfate Active 325 MG PO DAILY@0800 February 11, 2014 12:00am Start: 08-15-2010 take 1 tablet by surjit th twice daily at mealtime Ferrous Sulfate 325 mg (65 mg Iron) ORAL tablet Take 1 tablet by mouth twice daily. TAKE WITH FOOD 0 08/15/2010 Active Start: 08-15-2010 take 1 tablet by surjit th once daily at mealtime Ferrous Sulfate 325 mg (65 mg Iron) ORAL tablet Take one(1) tablet daily with food. 0 08/15/2010 Active Comment on above: Take one(1) tablet d aily with food. Take 1 tablet by surjit th twice daily. TAKE WITH FOOD gabapentin 300 mg oral capsule (20 sources) Anti-epileptic Agent Start: 10-06-2024 take 1 capsule by mouth three times daily Gabapentin 300 mg capsule Active 300 mg PO THREE TIMES A DAY October 06, 2024 11:32am Start: 01-18-2024 End: 10-06-2024 take 1 capsule by mouth once daily Gabapentin 300 mg capsule Discontinued 300 mg PO DAILY January 18, 2024 12:00am October 06, 2024 11:36am Start: 03-24-2023 End: 04-23-2023 take 1 capsule by mouth every twelve hours in the evening gabapentin (NEURONTIN) 100 mg capsule Take 1 capsule by mouth every 12 hours for 30 days. 60 capsule 03/24/2023 3:09 PM EDT 03/24/2023 Active Start: 05-30-2021 End: 07-10-2023 Gabapentin 300 mg capsule Discontinued 100 mg PO TWICE A DAY May 30, 2021 1:00am July 10, 2023 3:06pm Start: 05-30-2021 End: 07-10-2023 take 100 mg by mouth twice daily Gabapentin Discontinued 100 MG PO TWICE A DAY May 30, 2021 1:00am July 10, 2023 3:06pm Start: 05-30-2021 take 300 mg by mouth twice daily Gabapentin Active 300 MG PO TWICE A DAY May 30, 2021 1:00am Comment on above: Take 1 capsule by mo [facility] every 12 hours for 30 days. hydroCHLOROthiazide 12.5 mg / lisinopril 20 mg oral tablet (20 sources) Thiazide Diuretic, Angiotensin Converting Enzyme Inhibitor Start: 10-06-2024 Lisinopril-Hydroc hlorothiazide 20-12.5 mg tablet Active 1 {tbl} PO daily October 06, 2024 12:00am Start: 01-23-2023 End: 10-06-2024 Lisinopril-Hydrochlorothiazi de 20-25 mg tablet Discontinued 1 {tbl} PO DAILY January 23, 2023 12:00am October 06, 2024 11:33am Start: 01-23-2023 [facility] Lisinopril-Hydrochlorothiazide Active 1 TABLET PO DAILY January 23, 2023 12:00am Start: 11-01-2018 take 10-12.5 mg by mouth once lisinopril-hydrochlorothiazide (PRINZIDE,ZESTORETIC) 10-12.5 mg per tablet Take 1 tablet by mouth once daily. 90 tablet 3 11/01/2018 Active Start: 02-11-2014 End: 01-23-2023 Lisinopril-Hydrochlorothiazi de 1 TABLET tablet Discontinued 1 {tbl} PO DAILY February 11, 2014 12:00am January 23, 2023 8:01am Start: 02-11-2014 End: 01-23-2023 take 1 tablet by mouth once daily Lisinopril-Hydrochlorothiazide Discontin ued 1 TABLET PO DAILY February 11, 2014 12:00am January 23, 2023 8:01am Comment on above: Take 1 tablet by surjit th once daily. hydroxychloroquine sulfate 200 mg oral tablet (11 sources) Antimalarial, Antirheumatic Agent Start: 07-03-20 End: 10-07-19 hydrOXYchloroQUINE (PLAQUENIL) 200 mg tablet 07/03/2023 Active Start: 07-03-2023 take 1 tablet by surjit th twice daily Hydroxychloroquine 200 mg tablet Active 200 mg PO TWICE A DAY January 18, 2024 12:00am loratadine 10 mg oral tablet (4 sources) Start: 08-01-2024 take 1 tablet by mouth once daily as needed Loratadine 10 mg tablet Active 10 mg PO daily as needed for sinus symptoms/ear pressure 90 August 01, 2024 1:00am meclizine hydrochloride 25 mg oral tablet (20 sources) Antiemetic Start: 02-14-2022 End: 08-01-2024 take 1 tablet by mouth twice daily meclizine (ANTIVERT) 25 mg tab Take 25 mg by mouth twice daily. 02/28/2023 Active Comment on above: Take 25 mg by mouth twice daily. metFORMIN hydrochloride 1000 mg oral tablet (20 sources) Biguanide Start: 10-06-2024 take 1 tablet by mouth twice daily Metformin 1,000 mg tablet Active 1000 mg PO TWICE A DAY October 06, 2024 11:33am Start: 02-11-2022 take 1 tablet by surjit th twice daily at mealtime metFORMIN (GLUCOPHAGE) 500 mg tablet Take 500 mg by mouth twice daily with meals. 02/11/2022 Active Start: 05-30-2021 End: 10-06-2024 Metformin 1,000 mg tablet Discontinued 500 mg PO TWICE A DAY May 30, 2021 1:00am October 06, 2024 11:36am Start: 05-30-2021 take 500 mg by mouth twice kvng ly Metformin Active 500 MG PO TWICE A DAY May 30, 2021 1:00am Start: 05-30-2021 take 1000 mg by mouth once kvng ly Metformin Active 1000 MG PO DAILY May 30, 2021 1:00am Comment on above: Take 500 mg by mouth twice daily with meals. multivitamin (DAILY VITAMIN) ORAL Tab (13 sources) Start: 03-28-2007 take 1 tablet by mouth once daily multivitamin (DAILY VITAMIN) ORAL Tab Take 1 tablet by mouth once daily. 0 03/28/2007 Active Start: 03-28-2007 take 1 tablet by surjit th once daily multivitamin (DAILY VITAMIN) ORAL Tab Take one(1) tablet daily. 0 03/28/2007 Active Comment on above: Take one(1) tablet d aily. Take 1 tablet by surjit th once daily. Multivitamin With Folic Acid (20 sources) Start: 02-11-2014 take 1 tablet by mouth once daily Multivitamin With Folic Acid Active 1 TABLET PO DAILY February 11, 2014 9:06am Start: 02-11-2014 take 1 tablet by surjit th once daily Multivitamin With Folic Acid Active 1 TABLET PO DAILY February 10, 2014 11:00pm Start: 02-11-2014 take 1 tablet by surjit th once daily Multivitamin With Folic Acid Active 1 TABLET PO DAILY February 11, 2014 12:00am Multivitamin With Folic Acid 1 TABLET tablet (4 sources) Start: 02-11-2014 take 1 tablet by mouth once daily Multivitamin With Folic Acid 1 TABLET tablet Active 1 {tbl} PO DAILY February 11, 2014 12:00am omeprazole 20 mg delayed release oral capsule (20 sources) Proton Pump Inhibitor Start: 02-11-2014 End: 11-07-2024 omeprazole (PRILOSEC) 20 mg capsule TAKE 1 CAPSULE TWICE A DAY 30 MINUTES BEFORE MEALS 180 capsule 3 11/01/2018 Active Comment on above: TAKE 1 CAPSULE TWICE A DAY 30 MINUTES BEFORE MEALS polyethylene glycol 3350 67953 mg powder for oral solution (13 sources) Osmotic Laxative Start: 10-26-2015 polyethylene glycol 3350 (MIRALAX) 17 gram/dose powder 17 g/8 oz water daily as needed for constipation 1 Bottle 5 10/26/2015 Active Comment on above: 17 g/8 oz water viviana y as needed for constipation polyethylene glycol 3350 949482 mg / potassium chloride 2970 mg / sodium bicarbonate 6740 mg / sodium chloride 5860 mg / sodium sulfate 56799 mg powder for oral solution (1 source) Osmotic Laxative Start: 04-28-2022 End: 04-28-2022 peg 3350-Electrolytes (GOLYTELY) 236-22.74-6.74 -5.86 gram suspension Take 4,000 mL by mouth one time only for 1 dose. 1 Each 0 04/28/2022 04/28/2022 Active Comment on above: Take 4,000 mL by surjit th one time only for 1 dose. rOPINIRole 2 mg oral tablet (20 sources) Nonergot Dopamine Agonist Start: 04-25-2022 End: 08-21-2024 take 2 tablets by mouth once daily at bedtime rOPINIRole (REQUIP) 2 mg tablet Take 4 mg by mouth daily at bedtime. 03/08/2023 Active Start: 02-14-2022 End: 04-25-2022 take 1 tablet by mouth once daily Ropinirole 0.5 mg tablet Discontinued 0.5 mg PO DAILY February 14, 2022 12:00am April 25, 2022 4:41pm Start: 10-21-2018 rOPINIRole (RE QUIP) 0.5 mg tablet Take by mouth twice daily. 0 10/21/2018 Active Comment on above: Take by mouth twice daily. Take 4 mg by mouth d aily at bedtime. tiZANidine 4 mg oral tablet (20 sources) Central alpha-2 Adrenergic Agonist Start: 11-06-2023 End: 08-21-2024 take 2 tablets by mouth at bedtime Tizanidine 4 mg tablet Active 8 mg PO AT BEDTIME August 21, 2024 4:42pm Start: 11-06-2023 take 8 mg by mouth at bedtime Tizanidine Active 8 MG PO AT BEDTIME November 06, 2023 2:19pm Start: 07-10-2023 End: 11-06-2023 take 1-2 tablets by mouth at bedtime as needed Tizanidine 4 mg tablet Discontinued 0 PO AT BEDTIME as needed for muscle spasticity/leg restlessness July 10, 2023 1:00am November 06, 2023 2:21pm Take 1 to 2 tablets orally at bedtime PRN Start: 07-10-2023 End: 11-06-2023 take 1-2 tablets by mouth at bedtime as needed Tizanidine Discontinued 0 PO AT BEDTIME 180 July 10, 2023 1:00am November 06, 2023 2:21pm Take 1 to 2 tablets orally at bedtime PRN traMADol hydrochloride 50 mg oral tablet (20 sources) Opioid Agonist Start: 01-25-2023 take 1 tablet by mouth every six hours as needed for pain Tramadol 50 mg Tablet Active 50 mg PO EVERY 6 HOURS as needed for Pain Score 6-10 January 25, 2023 12:00am On Hold: Ordered traZODone hydrochloride 50 mg oral tablet (20 sources) Serotonin Reuptake Inhibitor Start: 02-11-2014 take 1 tablet by mouth once daily at bedtime traZODone (DESYREL) 50 mg tablet Take 1 tablet by mouth daily at bedtime. 90 tablet 3 11/01/2018 Active take 1 tablet by surjit th once daily at bedtime traZODone (DESYREL) 100 mg tablet Take 1 00 mg by mouth daily at bedtime. Active Comment on above: Take 1 tablet by surjit th daily at bedtime. vitamin b12 0.5 mg oral tablet (20 sources) Vitamin B12 Start: End: take 1 tablet by mouth once daily cyanocobalamin 500 mcg ORAL Tab Take one (1) tablet daily 0 08/15/2010 Active Comment on above: Take one (1) tablet daily warfarin sodium 5 mg oral tablet (20 sources) Vitamin K Antagonist Start: take 2 tablets by mouth once daily Warfarin (Jantoven) 5 mg tablet Active 10 mg PO DAILY October 06, 2024 11:35am Start: 01-23-2023 Warfarin (Warf skyalr 5 Mg Tablet) 5 mg tablet Active 7.5 MG PO MOWE January 23, 2023 12:00am Start: 05-30-2021 Warfarin Activ e 3 MG PO .COMPLEX May 30, 2021 1:00am 3 mg PO; TUES, THURS, SAT, SUN Start: 09-15-2020 End: 05-30-2021 Warfarin 10 mg tablet Discon tinued 10 mg PO .COMPLEX September 15, 2020 1:00am May 30, 2021 9:22am 10 mg PO Tuesdays and ; on Tuesdays and Saturdays Start: 09-15-2020 End: 05-30-2021 Warfarin 7.5 mg tablet Disco ntinued 7.5 mg PO .all other days September 15, 2020 1:00am May 30, 2021 9:20am Start: 10-21-2018 take 9 mg by mouth once daily warfarin (COUMADIN) 5 mg tablet Take 9 mg by mouth once daily. 10/21/2018 Active Start: 10-21-2018 End: 10-06-2024 take 7.5 mg by mouth once daily Warfarin (Jantoven) 5 mg tablet Discontinued 7.5 mg PO DAILY January 23, 2023 12:00am October 06, 2024 11:36am Start: 10-21-2018 warfarin (COUM SUSHMA) 5 mg tablet Comment on above: Take 7.5 mg by mouth once daily. Completed/Discontinued Medications Medication Drug Class(es) Dates Sig (Normalized) Sig (Original) ALPRAZolam 0.5 mg oral tablet (20 sources) Benzodiazepine Start: 06-29-2022 End: 10-30-2022 Alprazolam 0.5 mg tablet Discontinued 0.5 mg PO .COMPLEX 1 June 29, 2022 1:00am October 30, 2022 2:24pm 0.5 mg orally x1 to be taken 30 minutes prior to MRI apixaban 5 mg oral tablet (20 sources) Factor Xa Inhibitor Start: 01-18-2017 End: 04-28-2022 take 1 tablet by mouth twice daily Apixaban 5 MG tablet Discontinued 5 mg PO TWICE A DAY January 18, 2017 12:00am September 15, 2020 10:02am Comment on above: Take 1 tablet by surjit twice daily. baclofen 20 mg oral tablet (20 sources) gamma-Aminobutyric Acid-ergic Agonist Start: 02-27-2023 End: 03-01-2023 take 1 tablet by mouth three times daily Baclofen 20 mg tablet Discontinued 20 mg PO THREE TIMES A DAY 270 February 27, 2023 12:00am March 01, 2023 3:11pm Start: 10-30-2022 End: 02-27-2023 take 1 tablet by mouth three times daily as needed Baclofen 10 mg tablet Discontinued 10 mg PO THREE TIMES A DAY as needed for restless legs October 30, 2022 12:00am February 27, 2023 10:49pm busPIRone hydrochloride 5 mg oral tablet (20 sources) Start: 03-10-2019 End: 05-30-2021 take 1 tablet by mouth three times daily Buspirone 5 mg tablet Discontinued 5 mg PO THREE TIMES A DAY September 10, 2019 1:00am May 30, 2021 9:22am take 1 tablet by surjit th every twelve hours as needed busPIRone (BUSPAR) 15 mg tablet Take 15 mg by mouth twice daily as needed (anxiety). Active Comment on above: TAKE 1 TABLET BY SURJIT TH THREE TIMES DAILY NEEDED (ANXIETY). Take 15 mg by mouth twice daily as needed (anxiety). calcium citrate 1500 mg / cholecalciferol 250 unt oral tablet (20 sources) Vitamin D Start: 02-11-2014 End: 05-30-2021 Calcium Citrate-Vitamin D3 1 EACH tablet Discontinued 1 NMA PO TWICE DAILY WITH MEALS February 11, 2014 12:00am May 30, 2021 9:21am Start: 02-11-2014 End: 05-30-2021 Calcium Citrate-Vitamin D3 D iscontinued 1 EACH PO TWICE DAILY WITH MEALS February 11, 2014 12:00am May 30, 2021 9:21am cefdinir 300 mg oral capsule (20 sources) Cephalosporin Antibacterial Start: 01-25-2023 End: 03-11-2023 take 1 capsule by mouth twice daily in the evening Cefdinir 300 mg capsule Discontinued 300 mg PO TWICE A DAY January 25, 2023 12:00am March 11, 2023 9:27am start in the evening of 01/25/23 cephalexin 250 mg oral capsule (20 sources) Cephalosporin Antibacterial Start: 01-18-2024 End: 10-06-2024 take 1 capsule by mouth at bedtime Cephalexin 250 mg capsule Discontinued 250 mg PO AT BEDTIME January 18, 2024 12:00am October 06, 2024 11:32am Start: 12-14-2018 End: 09-10-2019 take 1 capsule by mouth at bedtime Cephalexin 250 MG capsule Discontinued 250 mg PO AT BEDTIME December 14, 2018 12:00am September 10, 2019 2:41pm ciprofloxacin 500 mg oral tablet (20 sources) Quinolone Antimicrobial Start: 12-15-2018 End: 09-10-2019 take 1 tablet by mouth twice daily Ciprofloxacin Hcl 500 MG tablet Discontinued 500 mg PO TWICE A DAY December 15, 2018 12:00am September 10, 2019 2:41pm dexamethasone 4 mg oral tablet (20 sources) Corticosteroid Start: 06-13-2021 End: 06-27-2022 take 1 tablet by mouth once daily Dexamethasone 4 mg tablet Discontinued 4 mg PO DAILY June 13, 2021 1:00am June 27, 2022 9:37am doxycycline monohydrate 100 mg oral capsule (20 sources) Tetracycline-class Drug Start: 01-20-2023 End: 01-25-2023 take 1 capsule by mouth twice daily Doxycycline Monohydrate 100 mg capsule Discontinued 100 mg PO TWICE A DAY January 20, 2023 12:00am January 25, 2023 1:06pm Estradiol (4 sources) Estrogen Start: 01-18-2024 End: 11-07-2024 Estradiol 0.01 % (0.1 mg/gram) cream Discontinued VAGINAL January 18, 2024 12:00am November 07, 2024 1:52pm Start: 01-18-2024 Estradiol 0.01 % (0.1 mg/gram) cream Active VAGINAL January 18, 2024 12:00am furosemide 40 mg oral tablet (1 source) Loop Diuretic Start: 11-01-2018 End: 04-28-2022 take 1 tablet by mouth once daily furosemide (LASIX) 40 mg tablet Take 1 tablet by mouth once daily. 90 tablet 3 11/01/2018 04/28/2022 Discontinued (Other) Comment on above: Take 1 tablet by surjit once daily. 3 ml insulin lispro 100 unt/ml pen injector (4 sources) Insulin Analog Start: 03-24-2023 insulin lispro (HUMALOG KWIKPEN INSULIN) 100 unit/mL Inject 0-10 Units subcutaneously three times daily before meals. If Blood Glucose (mg/dL) is 111-150 Give 0 units 151-200 Give 2 unit 201-250 Give 4 units 251-300 Give 6 units 301-350 Give 8 units 351-400 Give 10 units 301-350 Give 8 units 351-400 Give 10 units >400 give 10units and notify PCP 15 mL 1 03/24/2023 Active Comment on above: Inject 0-10 Units eagle bcutaneously three times daily before meals. If Blood Glucose (mg/dL) is <110 Give 0 units 111-150 Give 0 units 151-200 Give 2 unit 201-250 Give 4 units 251-300 Give 6 units 301-350 Give 8 units 351-400 Give 10 units 301-350 Give 8 units 351-400 Give 10 units >400 give 10units and notify PCP methotrexate 2.5 mg oral tablet (7 sources) Folate Analog Metabolic Inhibitor Start: 10-06-2024 End: 11-07-2024 Methotrexate Sodium 2.5 mg tablet Discontinued 0 PO .qsat October 06, 2024 12:00am November 07, 2024 1:52pm 8 tabs orally QSAT; Start: 09-01-2024 methotrexate 2 .5 mg tablet 09/01/2024 Active methylPREDNISolone acetate 40 mg/ml injectable suspension (3 sources) Corticosteroid Start: 09-15-2020 End: 09-15-2020 Depo-Medrol (methylprednisolone acetate) 40 mg/mL suspension for injection Discontinued 40 MG INTRAARTIC ONCE 1 September 15, 2020 9:50am September 15, 2020 10:25am Mupirocin (1 source) RNA Synthetase Inhibitor Antibacterial Start: 03-10-2019 End: 04-28-2022 mupirocin (BACTROBAN) 2% oint Use 0.5 g in the nose twice daily. 6 g 1 03/10/2019 04/28/2022 Discontinued Comment on above: Use 0.5 g in the nos e twice daily. nitrofurantoin, macrocrystals 25 mg / nitrofurantoin, monohydrate 75 mg oral capsule (19 sources) Nitrofuran Antibacterial Start: 10-19-2023 End: 10-26-2023 take 1 capsule by mouth every twelve hours at mealtime Nitrofurantoin Monohyd/M-Cryst 100 mg capsule Discontinued 1 NMA PO Q12H 14 7 October 19, 2023 12:00am October 25, 2023 12:00am October 26, 2023 12:06am administer with a meal/food; swallow whole; do not open, crush, dissolve , or chew Start: 07-25-2023 End: 07-30-2023 take 1 capsule by mouth every twelve hours at mealtime Nitrofurantoin Monohyd/M-Cryst (Macrobid) 100 mg capsule Discontinued 100 mg PO Q12H 10 July 25, 2023 1:00am July 29, 2023 1:00am July 30, 2023 1:04am must administer with a meal/food Drug Treatment Unknown - unknown (1 source) No information a vailable. predniSONE 10 mg oral tablet (18 sources) Start: 03-11-2023 End: 10-06-2024 Prednisone 10 mg tablets,dos e pack Discontinued 0 PO per package directions March 11, 2023 12:00am October 06, 2024 11:34am On Hold: DUE TO UPCOMING PROCEDURE PO PER PKG DIR Start: 03-11-2023 Prednisone Act zach 0 PO per package directions March 10, 2023 11:00pm On Hold: DUE TO UPCOMING PROCEDURE PO PER PKG DIR Start: 03-11-2023 Prednisone Act zach 0 PO per package directions March 11, 2023 12:00am On Hold: DUE TO UPCOMING PROCEDURE PO PER PKG DIR varenicline 1 mg oral tablet (1 source) Partial Cholinergic Nicotinic Agonist Start: 04-22-2019 End: 04-28-2022 take 1 tablet by mouth twice daily varenicline (CHANTIX CONTINUING MONTH BOX) 1 mg tablet Indications: Tobacco use disorder Take 1 tablet by mouth twice daily. 1 Package 1 04/22/2019 04/28/2022 Discontinued Comment on above: Take 1 tablet by surjit th twice daily. venlafaxine 75 mg oral tablet (20 sources) Serotonin and Norepinephrine Reuptake Inhibitor Start: 02-11-2014 End: 07-10-2023 take 1 tablet by mouth twice daily Venlafaxine 75 MG tablet Discontinued 75 mg PO TWICE A DAY February 11, 2014 12:00am July 10, 2023 3:07pm Comment on above: Take 1 tablet by surjit th twice daily. Problems Active Problems Problem Classification Problem Date Documented Date Episodic/Chronic Anxiety disorders (20 sources) Claustrophobia; Translations: [Claustrophobia] Onset: 08-15-2010 06-29-2022 Chronic Calculus of urinary tract (20 sources) Kidney stone; Translations: [Calculus of kidney] 12-14-2018 Episodic Comment on above: bilateral stonesh/o DVT has IVC filter Chronic obstructive pulmonary disease and bronchiectasis (20 sources) Chronic obstructive lung disease; Translations: [Chronic obstructive pulmonary disease, unspecified] Onset: 05-13-2014 Resolved: 09-02-2016 04-27-2023 Chronic Chronic ulcer of skin (20 sources) Skin ulcer; Translations: [Non-pressure chronic ulcer of skin of other sites with fat layer exposed] 05-25-2023 Chronic Diabetes mellitus with complications (16 sources) Type 2 diabetes mellitus; Translations: [Type 2 diabetes mellitus with other diabetic kidney complication] Onset: 06-15-2015 06-15-2015 Chronic Diabetes mellitus without complication (5 sources) Type 2 diabetes mellitus without complication; Translations: [Type 2 diabetes mellitus without complications] Onset: 06-15-2015 03-17-2023 Chronic Diseases of white blood cells (8 sources) Leukocytosis; Translations: [Elevated white blood cell count, unspecified] Onset: 03-17-2023 03-17-2023 Chronic Disorders of lipid metabolism (13 sources) Hyperlipidemia; Translations: [Hyperlipidemia, unspecified] Onset: 05-13-2014 03-15-2015 Chronic Esophageal disorders (13 sources) Gastroesophageal reflux disease; Translations: [Gastro-esophageal reflux disease without esophagitis] Onset: 03-14-2012 03-14-2012 Chronic Essential hypertension (13 sources) Benign essential hypertension; Translations: [Essential (primary) hypertension] Onset: 08-15-2010 08-15-2010 Chronic Genitourinary symptoms and ill-defined conditions (20 sources) Blood in urine; Translations: [Hematuria, unspecified] 04-19-2023 Episodic Immunizations and screening for infectious disease (20 sources) Patient encounter status; Translations: [Encounter for screening for COVID-19] Episodic Comment on above: Labs 10/01/2023 revie wed. [facility] mildly elevated.No M-spike. Labs 09/29/2024 revie wed. [facility] mildly elevated.No M-spike. Malaise and fatigue (1 source) Chronic fatigue, unspecified; Translations: [Chronic fatigue, unspecified] Onset: 12-08-2024 Chronic Malaise and fatigue (20 sources) Fatigue; Translations: [Other fatigue] Onset: 10-06-2024 10-30-2022 Episodic Mood disorders (5 sources) Depressive disorder; Translations: [Depression] Onset: 08-15-2010 08-15-2010 Chronic Neoplasms of unspecified nature or uncertain behavior (20 sources) Monoclonal gammopathy (clinical); Translations: [Monoclonal gammopathy] Onset: 10-06-2024 02-27-2023 Chronic Nutritional deficiencies (20 sources) Iron deficiency; Translations: [Iron deficiency] Episodic Open wounds of head; neck; and trunk (20 sources) Open wound of right chest wall; Translations: [Unspecified open wound of right front wall of thorax without penetration into thoracic cavity, initial encounter] 04-27-2023 Episodic Osteoarthritis (20 sources) Unilateral primary osteoarthritis, right hip; Translations: [Osteoarthrosis, unspecified whether generalized or localized, pelvic region and thigh] Onset: 11-21-2024 12-25-2022 Chronic Other aftercare (2 sources) Surgical follow-up; Translations: [Encounter for follow-up examination after completed treatment for conditions other than malignant neoplasm] 03-30-2023 Episodic Other aftercare (1 source) snf (current) use of anticoagulants; Translations: [snf (current) use of anticoagulants] Onset: 11-18-2024 Episodic Other and ill-defined cerebrovascular disease (20 sources) Small vessel cerebrovascular disease; Translations: [Cerebrovascular disease, unspecified] 02-14-2022 Chronic Other and ill-defined cerebrovascular disease (10 sources) Cerebrovascular disease, unspecified; Translations: [Unspecified cerebrovascular disease] Chronic Other and unspecified benign neoplasm (5 sources) Cerebral meningioma; Translations: [Benign neoplasm of cerebral meninges] Chronic Other and unspecified benign neoplasm (10 sources) Benign neoplasm of cerebral meninges; Translations: [Benign neoplasm of cerebral meninges] Chronic Other and unspecified benign neoplasm (13 sources) Neoplasm of meninges; Translations: [Benign neoplasm of meninges, unspecified] Onset: 12-26-2017 12-26-2017 Chronic Other and unspecified benign neoplasm (20 sources) Intracranial meningioma; Translations: [Benign neoplasm of cerebral meninges] 02-14-2022 Chronic Other and unspecified benign neoplasm (2 sources) History of polyp of colon; Translations: [Personal history of colonic polyps] Episodic Other and unspecified benign neoplasm (1 source) Personal history of colonic polyps; Translations: [History of colonic polyps] Onset: 06-28-2022 Episodic Other and unspecified benign neoplasm (20 sources) Bilateral adenoma of adrenal glands; Translations: [Benign neoplasm of right adrenal gland] 04-19-2023 Episodic Comment on above: CT 10/01/2023 reviewe d, shows R pleural thickening and stable bilateral adrenal nodules. CT 09/29/2024 reviewe d, shows fatty liver and no adrenal mass. Other and unspecified benign neoplasm (11 sources) Benign neoplasm of right adrenal gland; Translations: [Benign neoplasm of adrenal gland] Onset: 10-06-2024 04-19-2023 Episodic Other and unspecified benign neoplasm (1 source) Benign neoplasm of left adrenal gland; Translations: [Benign neoplasm of left adrenal gland] Onset: 10-06-2024 Episodic Other connective tissue disease (19 sources) Pain in right lower limb; Translations: [Pain in right leg] 02-27-2023 Episodic Other connective tissue disease (19 sources) Neurogenic claudication; Translations: [Other symptoms and signs involving the nervous system] 02-27-2023 Episodic Other connective tissue disease (18 sources) Muscle pain; Translations: [Myalgia, unspecified site] 03-01-2023 Episodic Other connective tissue disease (6 sources) Myalgia, unspecified site; Translations: [Myalgia and myositis, unspecified] 03-01-2023 Episodic Other connective tissue disease (4 sources) Trochanteric bursitis; Translations: [Trochanteric bursitis, right hip] 01-18-2024 Episodic Other hereditary and degenerative nervous system conditions (20 sources) Restless legs; Translations: [Restless legs syndrome] 06-29-2022 Chronic Other hereditary and degenerative nervous system conditions (20 sources) Restless legs syndrome; Translations: [Restless legs syndrome (RLS)] Onset: 08-21-2024 Chronic Other hereditary and degenerative nervous system conditions (20 sources) Impaired cognition; Translations: [Mild cognitive impairment, so stated] 06-29-2022 Chronic Other hereditary and degenerative nervous system conditions (2 sources) Mild cognitive impairment, so stated; Translations: [Mild cognitive impairment, so stated] 06-27-2022 Chronic Other injuries and conditions due to external causes (11 sources) Open wound with complication; Translations: [Other injury of unspecified body region, initial encounter] 04-27-2023 Episodic Other injuries and conditions due to external causes (16 sources) Other injury of unspecified body region, initial encounter; Translations: [Open wound(s) (multiple) of unspecified site(s), complicated] 05-22-2023 Episodic Other injuries and conditions due to external causes (4 sources) Open wound; Translations: [Other injury of unspecified body region, initial encounter] 04-27-2023 Episodic Other liver diseases (6 sources) Steatosis of liver; Translations: [Fatty (change of) liver, not elsewhere classified] 10-10-2024 Chronic Other liver diseases (1 source) Hepatomegaly, not elsewhere classified; Translations: [Hepatomegaly, not elsewhere classified] Onset: 10-07-2024 Episodic Other lower respiratory disease (1 source) Pleuritic pain; Translations: [Pleurodynia] Episodic Other lower respiratory disease (20 sources) Hypoxia; Translations: [Hypoxemia] 01-23-2023 Episodic Other lower respiratory disease (2 sources) Hypoxemia; Translations: [Hypoxemia] 01-23-2023 Episodic Other lower respiratory disease (18 sources) Dyspnea on exertion; Translations: [Other forms of dyspnea] 03-11-2023 Episodic Other nervous system disorders (20 sources) Polyneuropathy; Translations: [Polyneuropathy, unspecified] 02-14-2022 Chronic Other nervous system disorders (20 sources) Polyneuropathy, unspecified; Translations: [Unspecified hereditary and idiopathic peripheral neuropathy] Chronic Other non-traumatic joint disorders (20 sources) Hip pain; Translations: [Pain in right hip] 12-25-2022 Episodic Other non-traumatic joint disorders (4 sources) Acute ankle pain; Translations: [Pain in left ankle and joints of left foot] 12-27-2024 Episodic Other non-traumatic joint disorders (1 source) Pain in left ankle and joints of left foot; Translations: [Acute left ankle pain] Onset: 12-27-2024 Episodic Other nutritional; endocrine; and metabolic disorders (14 sources) Obese class II; Translations: [Obesity, unspecified] Onset: 09-09-2018 09-09-2018 Chronic Other nutritional; endocrine; and metabolic disorders (20 sources) Obesity, unspecified; Translations: [Obesity, unspecified] Onset: 09-10-2018 12-25-2022 Chronic Other nutritional; endocrine; and metabolic disorders (20 sources) Obesity; Translations: [Obesity, unspecified] 12-25-2022 Chronic Other nutritional; endocrine; and metabolic disorders (8 sources) Body mass index 40+ - severely obese; Translations: [Morbid (severe) obesity due to excess calories] Onset: 03-21-2023 03-21-2023 Chronic Other nutritional; endocrine; and metabolic disorders (20 sources) History of iron deficiency; Translations: [Personal history of other endocrine, nutritional and metabolic disease] 10-30-2022 Episodic Other nutritional; endocrine; and metabolic disorders (20 sources) Personal history of other endocrine, nutritional and metabolic disease; Translations: [Personal history of diseases of blood and blood-forming organs] 10-30-2022 Episodic Rheumatoid arthritis and related disease (1 source) Inflammatory polyarthropathy; Translations: [Inflammatory polyarthropathy] Onset: 10-28-2024 Chronic Spondylosis; intervertebral disc disorders; other back problems (13 sources) Degeneration of lumbar intervertebral disc; Translations: [Other intervertebral disc degeneration, lumbar region] 11-08-2023 Chronic Spondylosis; intervertebral disc disorders; other back problems (20 sources) Cervical radiculitis; Translations: [Radiculopathy, cervical region] 09-15-2020 Episodic Unclassified (1 source) No current problems or disability 02-15-2017 Unclassified (13 sources) Chronic deep venous thrombosis of lower extremity; Translations: [DVT, recurrent, lower extremity, chronic] Onset: 08-19-2015 08-19-2015 Unclassified (2 sources) Primary osteoarthritis of right hip; Translations: [M16.11 - Unilateral primary osteoarthritis, right hip] Unclassified (1 source) Low back pain, unspecified; Translations: [Low back pain, unspecified] Onset: 11-07-2024 Unclassified (1 source) Other specified cough; Translations: [Other specified cough] Onset: 06-09-2024 Past or Other Problems Problem Classification Problem Date Documented Da te Episodic/Chronic Abdominal hernia (3 sources) Disorder of abdominal wall; Translations: [Ventral hernia without obstruction or gangrene] Onset: 08-15-2010 Resolved: 05-13-2014 05-13-2014 Episodic Acute and unspecified renal failure (8 sources) Acute injury of kidney; Translations: [Acute kidney failure, unspecified] Onset: 03-19-2023 03-20-2023 Episodic Acute posthemorrhagic anemia (8 sources) Acute posthemorrhagic anemia; Translations: [Acute posthemorrhagic anemia] Onset: 03-17-2023 03-17-2023 Episodic Bacterial infection; unspecified site (8 sources) Streptococcal infectious disease; Translations: [Streptococcal infection, unspecified site] Onset: 03-17-2023 03-18-2023 Episodic Conditions associated with dizziness or vertigo (20 sources) Vertiginous syndrome; Translations: [Unspecified disorder of vestibular function, unspecified ear] Onset: 08-21-2024 Episodic Deficiency and other anemia (1 source) Anemia, unspecified; Translations: [Anemia, unspecified] Onset: 08-28-2024 Episodic Gastroduodenal ulcer (except hemorrhage) (3 sources) Acute gastrojejunal ulcer; Translations: [Acute gastrojejunal ulcer without hemorrhage or perforation] Onset: 06-16-2008 Resolved: 12-28-2014 12-28-2014 Episodic Other aftercare (13 sources) Long-term current use of anticoagulant; Translations: [snf (current) use of anticoagulants] Onset: 02-08-2016 02-08-2016 Episodic Other aftercare (8 sources) Insulin dose changed; Translations: [snf (current) use of insulin] Onset: 03-23-2023 03-23-2023 Episodic Other connective tissue disease (3 sources) Tendinitis of wrist; Translations: [Other enthesopathies, not elsewhere classified] Onset: 12-11-2013 Resolved: 05-13-2014 05-13-2014 Episodic Other connective tissue disease (3 sources) Right rotator cuff syndrome; Translations: [Unspecified rotator cuff tear or rupture of right shoulder, not specified as traumatic] Onset: 10-16-2016 Resolved: 09-09-2018 09-09-2018 Episodic Other connective tissue disease (3 sources) Pain in bilateral legs; Translations: [Pain in right leg] Onset: 11-22-2016 Resolved: 09-09-2018 09-09-2018 Episodic Other connective tissue disease (3 sources) Radicular pain; Translations: [Neuralgia and neuritis, unspecified] Onset: 03-30-2017 Resolved: 09-09-2018 09-09-2018 Episodic Other lower respiratory disease (7 sources) Other forms of dyspnea; Translations: [Other respiratory abnormalities] 03-11-2023 Episodic Other lower respiratory disease (1 source) Shortness of breath; Translations: [Shortness of breath] Onset: 05-06-2024 Episodic Other nervous system disorders (3 sources) Carpal tunnel syndrome of left wrist; Translations: [Carpal tunnel syndrome, left upper limb] Onset: 10-31-2013 Resolved: 05-13-2014 05-13-2014 Chronic Other nervous system disorders (3 sources) Carpal tunnel syndrome of right wrist; Translations: [Carpal tunnel syndrome, right upper limb] Onset: 05-13-2014 Resolved: 09-09-2018 09-09-2018 Chronic Other nervous system disorders (8 sources) Postoperative pain ; Translations: [Other acute postprocedural pain] Onset: 03-16-2023 03-17-2023 Episodic Other non-traumatic joint disorders (1 source) Pain in right hip; Translations: [Pain in right hip] Onset: 01-18-2024 Episodic Other nutritional; endocrine; and metabolic disorders (3 sources) Morbid obesity; Translations: [Morbid (severe) obesity due to excess calories] Onset: 08-15-2010 Resolved: 09-09-2018 09-09-2018 Chronic Other nutritional; endocrine; and metabolic disorders (3 sources) Excess panniculus of abdomen; Translations: [Localized adiposity] Onset: 03-15-2015 Resolved: 09-09-2018 09-09-2018 Chronic Other screening for suspected conditions (not mental disorders or infectious disease) (20 sources) Encounter for screening for malignant neoplasm of colon; Translations: [Serum total protein abnormal] Onset: 06-28-2022 04-12-2023 Episodic Comment on above: Discussed evaluation of abnormal serum protein, evaluation and management, Pt agrees to proceed. Otitis media and related conditions (3 sources) Disorder of left Eustachian tube; Translations: [Unspecified Eustachian tube disorder, left ear] Onset: 11-05-2017 Resolved: 09-09-2018 09-09-2018 Episodic Phlebitis; thrombophlebitis and thromboembolism (20 sources) Deep venous thrombosis of lower extremity; Translations: [Acute embolism and thrombosis of right femoral vein] Onset: 06-15-2015 06-15-2015 Episodic Pleurisy; pneumothorax; pulmonary collapse (20 sources) Pleural effusion; Translations: [Pleural effusion, not elsewhere classified] Onset: 03-14-2023 01-23-2023 Episodic Pneumonia (except that caused by tuberculosis or sexually transmitted disease) (20 sources) Pneumonia; Translations: [Pneumonia, unspecified organism] Onset: 03-17-2023 01-20-2023 Episodic Pulmonary heart disease (13 sources) H/O: pulmonary embolus; Translations: [Personal history of pulmonary embolism] Onset: 06-15-2015 06-15-2015 Episodic Residual codes; unclassified (13 sources) Other specified health status; Translations: [Other drug allergy] Onset: 10-16-2016 10-16-2016 Episodic Screening and history of mental health and substance abuse codes (8 sources) Tobacco use and exposure - finding; Translations: [Personal history of nicotine dependence] Onset: 03-14-2023 03-17-2023 Episodic Results Test Name Value Interpretation Reference Range Facility OV 12-27-2024 [facility] Office Visit ([facility]) ART BLUE ([id number]) 1955 F Date Time Provider Department 12/27/24 10:00 AM LEONARDO DHILLON [facility] During your visit today, we recorded the following information about you: Temperature Pulse Respiration Blood pressure 97.1 degrees 86/minute 21/minute 110/58 Weight 106.8 kg Leonardo Dhillon APRN.CNP 12/27/2024 12:59 PM Signed This note was created using [employer]birds[employer]. Subjective Art Blue is a 69 year old female. HPI Patient complains of ongoing left ankle pain over the last 5 months however about 2 days ago she fell and then while walking she felt a popping sensation in her left ankle. She does note a history of osteoarthritis in that ankle and notes that her right hip is scheduled for replacement. Review of Systems As above Objective BP 110/58 Pulse 86 Temp 36.2 ?C (97.1 ?F) Resp 21 Wt 106.8 kg (235 lb 7.2 oz) SpO2 96% BMI 38.59 kg/m? Physical Exam Vitals and nursing note reviewed. Constitutional: General: She is not in acute distress. Appearance: Normal appearance. She is not ill-appearing. HENT: Head: Normocephalic. Pulmonary: Effort: Pulmonary effort is normal. Musculoskeletal: General: Normal range of motion. Comments: Diffuse tenderness of the left ankle with no obvious swelling or deformities noted. No pain on the tibia or left knee Skin: General: Skin is warm. Neurological: General: No focal deficit present. Mental Status: She is alert and oriented to person, place, and time. Psychiatric: Mood and Affect: Mood normal. Behavior: Behavior normal. Assessment and Plan ASSESSMENT/PLAN: 1. Acute left ankle pain - ICD9: 719.47, ICD10: M25.572 X-ray of the left ankle showed no acute abnormalities. Discussed with patient that symptoms are most likely related to some sort of a sprain/strain combined with her history of arthritis in that ankle. Recommended slowly resuming activities as tolerated and using ibuprofen or Tylenol as needed for pain. Patient comfortable with plan. - XR ANKLE GENERAL 3V AP/LAT/OBL LEFT Leonardo Dhillon APRN.DYNAMICS AX CONSULTANT Allergies As of Date: 12/27/2024 Noted Allergy Reaction BACTRIM (SULFAMETHOXAZOLE-TR IMETH*09/13/2018 8 - GI Upset LEVOFLOXACIN 05/30/2021 8 - GI Upset 11 - Vomiting LIPITOR (ATORVASTATIN CALCIUM) 03/18/2015 17 - Myalgia Date Reviewed: 12/27/2024 Reviewed by: Leonardo Dhillon APRN.DYNAMICS AX CONSULTANT - Fully Assessed Reason for Visit: Minor Injuries (Sprains, Strains, Minor Joint Pain) [4230] Cmt: Left ankle pain x 5 months, fell 2 days ago and now pain is worse Primary Visit Diagnosis:Acute left ankle pain [M25.572] Order(s):XR ANKLE GENERAL 3V AP/LAT/OBL LEFT [6417920] Order #: [id number] FUTURE Prescriptions as of 12/27/2024 - hydrOXYchloroQUINE (PLAQUENIL) 200 mg tablet - methotrexate 2.5 mg tablet - DULoxetine (CYMBALTA) 60 mg capsule Take 60 mg by mouth once daily. - traZODone (DESYREL) 100 mg tablet Take 100 mg by mouth daily at bedtime. - dapagliflozin propanediol (FARXIGA) 10 mg tablet Take 10 mg by mouth daily with breakfast. - gabapentin (NEURONTIN) 100 mg capsule Take 1 capsule by mouth every 12 hours for 30 days. - meclizine (ANTIVERT) 25 mg tab Take 25 mg by mouth twice daily. - rOPINIRole (REQUIP) 2 mg tablet Take 4 mg by mouth daily at bedtime. - busPIRone (BUSPAR) 15 mg tablet Take 15 mg by mouth twice daily as needed (anxiety). - lisinopril-hydroCHLO ROthiazide (ZESTORETIC) 20-25 mg per tablet Take 1 tablet by mouth once daily. - metFORMIN (GLUCOPHAGE) 500 mg tablet Take 500 mg by mouth twice daily with meals. - warfarin (COUMADIN) 5 mg tablet Take 9 mg by mouth once daily. - traZODone (DESYREL) 50 mg tablet Take 1 tablet by mouth daily at bedtime. - omeprazole (PRILOSEC) 20 mg capsule TAKE 1 CAPSULE TWICE A DAY 30 MINUTES BEFORE MEALS - polyethylene glycol 3350 (MIRALAX) 17 gram/dose powder 17 g/8 oz water daily as needed for constipation - COMPOUNDED PRESCRIPTION cpap supplies: DX: sleep apnea - Biotin 10,000 mcg cap Take 1 capsule by mouth once daily. - Ferrous Sulfate 325 mg (65 mg Iron) ORAL tablet Take 1 tablet by mouth twice daily. TAKE WITH FOOD - cyanocobalamin 500 mcg ORAL Tab Take one (1) tablet daily - multivitamin (DAILY VITAMIN) ORAL Tab Take 1 tablet by mouth once daily. - Calcium Carb-Cholecalciferol (VINCENT-600 WITH VITAMIN D) 600 (1,500)-200 mg-unit ORAL Tab Take one(1) tablet twice daily. Problem List As Of Date 12/27/2024 Noted Resolved ULCER GASTROJEJUNAL, ACUTE( Without obstruction*06/16/20 08 12/28/2014 Primary hypertension [I10] 08/15/2010 Anxiety and depression [F41.9, F32.A] 08/15/2010 Morbid obesity (HCC) [E66.01] 08/15/2010 09/09/2018 Abdominal wall hernia [K43.9] 08/15/2010 05/13/2014 GERD (gastroesophageal reflux disease) [K21.9] 03/14/2012 Left carpal tunnel syndrome [G56.02] 10/31/2013 05/13/2014 W (more content not included)... Normal [facility] XR ANKLE 3V AP/LAT/OBL LTon 12-27-2024 XR ANKLE 3V AP/LAT/OBL LT * * *Final Rep ort* * * DATE OF EXAM: Dec 27 2024 10:37AM WOX 5298 - XR ANKLE 3V AP/LAT/OBL LT / PROCEDURE REASON: Acute left ankle pain * * * * Physician Interpretation * * * * EXAMINATION: Left ankle HISTORY: Recent injury TECHNIQUE: 3 views RESULTS: Ankle mortise is normal. No swelling or joint effusion. No fracture. Calcaneal spurring. IMPRESSION: No acute bony or joint space wound care nurse: [facility] Transcribe Date/Time: Dec 27 2024 12:42P Dictated by : GURWINDER MCKEE MD This examination was interpreted and the report reviewed and electronically signed by: GURWINDER MCKEE MD on Dec 27 2024 12:42PM EST [id number] Normal [facility] XR Ankle - left AP and Later al and obliqueon 12-27-2024 IMPRESSION: No acute bony or joint space wound care nurse: [facility] Transcribe Date/Time: Dec 27 2024 12:42P Dictated by : GURWINDER MCKEE MD This examination was interpreted and the report reviewed and electronically signed by: GURWINDER MCKEE MD on Dec 27 2024 12:42PM EST DIVISION OF RADIOLOGY * * *Final Report* * * DATE OF EXAM: Dec 27 2024 10:37AM WOX 5298 - XR ANKLE 3V AP/LAT/OBL LT / PROCEDURE REASON: Acute left ankle pain * * * * Physician Interpretation * * * * EXAMINATION: Left ankle HISTORY: Recent injury TECHNIQUE: 3 views RESULTS: Ankle mortise is normal. No swelling or joint effusion. No fracture. Calcaneal spurring. DIVISION OF RADIOLOGY Provider, [facility] [place] - 12/27/2024 * * *Final Report* * * DATE OF EXAM: Dec 27 2024 10:37AM WOX 5298 - XR ANKLE 3V AP/LAT/OBL LT / PROCEDURE REASON: Acute left ankle pain * * * * Physician Interpretation * * * * EXAMINATION: Left ankle HISTORY: Recent injury TECHNIQUE: 3 views RESULTS: Ankle mortise is normal. No swelling or joint effusion. No fracture. Calcaneal spurring. IMPRESSION IMPRESSION: No acute bony or joint space wound care nurse: [facility] Transcribe Date/Time: Dec 27 2024 12:42P Dictated by : GURWINDER MCKEE MD This examination was interpreted and the report reviewed and electronically signed by: GURWINDER MCKEE MD on Dec 27 2024 12:42PM EST [facility] Radiology Study observation (narrative) [facility] XR Ankle - left AP and Later al and obliqueOrdered By: [facility] Provider on 12-27-2024 [facility] Inital Evaluation (1) - PTon 12-16-2024 Inital Evaluation (1) - PT [facility] [address] [place] [address]. [address] [place] [address] / REHABILITATION SERVICES INITIAL EVALUATION MR#: [id number] Acct: [id number] Name: ART BLUE Rep #: [id number] : 1955 69 From: Jesse Thrasher DPT Referring Dr.: Dr. Jose Ramon Terry DO Status: R EG RCR Insurance: MEDICARE PART A B [facility] Patient's Visit Information Visit Information Visit Information: ART BLUE is a 69 year old F referred to Physical Therapy by Dr. Jose Ramon Terry DO with a diagnosis of R hip OA. Date of Evaluation: 12/11/24 Physical Therapist: Jesse Thrasher DPT Visit Plan Frequency: 2x /Week Duration: 6 Weeks Plan: In aquatic settin) hip and core strengthening. PRogress as tolerated. 2) add in functional strengthening in pool. Subjective Subjective: Pt. is here today with her initial evaluation with R hip OA. Pt. reports having increasing pain for the past few months, both groin and her lateral hip as well. pt. reports a few months back getting an injection in her lateral hip which did help the lateral pain, did not help her groin pain. She was instructed to go to PT to improve her strength and ROM prior to having surgical intervention. Pt. has difficulty sleeping as well. Pt. is hopeful to reduce symptoms in order to get back to all household activities without limitations.. Pain R hip: Pain Intensity (Out of 10): 7 Pain Intensity Range: 2 and 7 Objective Objective: POSTURE: Pt. has a general flexed posture in stance. Increased wt. shift to L side in stance as well. Lacks hip extension. PALPATION: Pt. has marked tenderness at R greater trochanter and gluteral musculature. pt. has hip flexor pain as well. NEURO: pt. has normal sensation in BLEs and normal DTR. Pt. does have peripheral neuropathy. ROM: R hip: flexion 90deg increase NW, IR at 90deg of flex 5deg increase NW, ER 40at 90deg of flexion. Normal HS length. MMT: RLE: knee: ext 34.0#, flexion 28.5#; hip: flexion 7.9#, abd 3# LLE: knee: ext 34.6#, flexion 32.5#; hip: flex 20.0#, abd 15# GAIT: Pt. ambulates with SPC today (but typically uses rollator). Pt. has trunk sway to R side during R stance phase. Pt. TU.1sec with SPC 30sec sit to stand rep test: 6 with use of UEs. STAIRS: Pt. is able to complete with step to pattern loading LLE only with use of BHR. Balance/Special Test Scores Lower Extremity Functional Score: 24 Goals Goal 1:: LTG: Pt to be I with HEP. Goal Time Frame: 4-6 Weeks Goal 2:: LTG: Pt. to be able to ambulate without antalgic pattern Goal Time Frame: 4-6 Weeks Goal 3:: LTG: pt. to have symmetrical BLE strength. Goal Time Frame: 4-6 Weeks Goal 4:: LTG: Pt. to complete 30sec sit to stand rep test with at least 13 reps Goal Time Frame: 4-6 Weeks Goal 5:: LTG: Pt. to complete TUG with time less than 20sec. Goal Time Frame: 4-6 Weeks Rehabilitation Potential Physical Therapy Diagnosis: Pt. has signs and symptoms consistent with R hip OA. Pt. has marked hypomobility, weakness, difficulty with walking. Pt. Rehabilitation Potential: Good Anticipated Interventions Patient/Client Instruction: Educate patient on: Condition, Plan of Care, Risk Factors and Benefits of Fitness Program For the Purpose of:: To facilitate caregiver knowledge, To improve self management, To prevent re- injury and To improve ability to perform tasks related to life management Therapeutic Exercise to Include: Strength training, Endurance training, Balance training, Coordination, Postural training, Flexibilty training, Gait and locomotor training, In an aquatic setting, Passive ROM and Active ROM For the Purpose of:: To decrease pain, To increase ROM, To increase oxygenation perfusion, To improve muscle performance and motor function, To improve ability to perform ADL's and To increase tolerance to activity/condition/p osition Text: Thank you for the opportunity to evaluate your patient. For Medicare and Medicare HMO plans, please review the plan of care and approve it. It will need to be FAXED BACK to us at [phone] for Medicare purposes. For Medicare only, by signing this I certify the plan of care. Please let me know if there are questions or concerns regarding this plan of care. Physician Signature: D ate: 12/16/24 1308 CC: Dr. Meir Zepeda MD; Dr. Jose Ramon Terry DO CLS Signed Normal [facility] Office Visit Reporton 2024 Office Visit Report [facility] [address] [place] [address] OFFICE VISIT Date of Service: 12/08/24 MR#: [id number] Acct: [id number] Patient: ART BLUE Rep #: [id number] : 1955 Provider: Dr. Gilberto maynard MD Age/Sex: 69/F Location: [facility] Status: Signed Intake Vital Signs 11/21/24 10:15 12/08/24 11:57 Height 5 ft 5 in Weight: 230 lb 8 oz BMI 38.3 BP 147/71 H Blood Pressure Location Rt brachial Position Sitting Respiration 17 Pulse 80 Pulse Source Monitor Temp 98.0 F Temp Source Temporal Pulse Oximetry (%) 96 Oxygen Delivery Method room air Intake Visit Reasons: B12 inject Chief Complaint: Allergies amoxicillin Allergy (Mild, Verified 11/21/24 10:16) rash atorvastatin Adverse Reaction (Mild, Verified 11/21/24 10:16) myalgiias levofloxacin (From Levaquin) Adverse Reaction (Unknown, Verified 11/21/24 10:16) Nausea Have you fallen in the past year?: No Office Meds cyanocobalamin (vitamin B-12) 1,000 mcg/mL injection solution Performing Provider: Gilberto Rasmussen MD Performing Location: [facility] Administered by: Chinyere Mandel on 12/08/24 11:42 Dose Route Admin Location Dispensed Lot Number Expiration Date [facility] Man ufacturer 1,500 mcg IM left deltoid 1.5 mL [id number] 12/20/26 [id number] SANDOVAL HENSON Comments: The patient presents for B12 injection for treatment of fatigue. She has fatigue. Her last B12 injection was of benefit for fatigue. The patient is awake and alert. B12 1500mcg IM was administered today. There were no complications Assessment and Plan Assessment and Plan (1) Fatigue: Status: Chronic Qualifiers: Fatigue type: chronic, unspecified Qualified Code(s): R53.82 - Chronic fatigue, unspecified Orders: Orders Vitamin B12 Today R53.82 - Chronic fatigue, unspecified Clinical Quality Measures Falls Risk Screening/Assistive Devices Have you fallen in the past year?: No 12/08/24 1745 Date Gilberto Rasmussen MD Cosigner Signature: Date (if applicable) CC: Normal [facility] HIP, UNI W/ Pelvis 2-3 Views on 11-21-2024 HIP, UNI W/ Pelvis 2-3 Views [facility] Services [address], [place] [address] HIP, UNI W/ Pelvis 2-3 Views MR#: [id number] Acct: [id number] Name: ART BLUE Rep #: [id number] : 1955 F 69 From: Gerard Roman MD PCP: Dr. Meir Zepeda MD Status: DEP AMB Study: HIP, UNI W/ Pelvis 2-3 Views Date of Exam: 09/16 Exam# [id number] Ordering Dr: Jose Ramon Terry DO PROCEDURE: HIP, UNI W/ PELVIS 2-3 VIEWS 11/21/2024 REASON FOR EXAM: CHRONIC PAIN TECHNIQUE: AP pelvis and two views right hip, 3 total images COMPARISON: 01/18/2024 FINDINGS: No fracture or dislocation. The SI joints and pubic symphysis appear within limits. Osteoarthrosis at the right hip now appears severe with lateral idhr-ke-vfkz appearing contact and sclerosis with marginal osteophyte formation. Partially imaged what appears to be an inferior vena cava filter suggested. L2-3 and L3-4 spondylosis/discogen ic change suggested. RAD/HIP, UNI W/ Pelvis 2-3 Views IMPRESSION: Osteoarthrosis at the right hip now appears severe with lateral prcf-kr-wcso appearing contact and sclerosis with marginal osteophyte formation. Reading Location: [facility] CC: Dr. Meir Zepeda MD; Dr. Jose Ramon Terry DO Tube Builder: Signed Normal [facility] Orthopedic Visit Reporton Orthopedic Visit Report [facility] [address] [place] [address] OFFICE VISIT Date of Service: 11/21/24 MR#: [id number] Acct: [id number] Name: ART BLUE Rep #: [id number] : 1955 Provider: Dr. Jose Ramon evans DO Age/Sex: 69/F Location: [facility] Status: Signed Intake Vital Signs 11/06/24 11:37 11/21/24 10:15 Height 5 ft 5 in 5 ft 5 in Weight: 230 lb 8 oz BMI 38.3 Intake Visit Reasons: RIGHT HIP Chief Complaint: Allergies amoxicillin Allergy (Mild, Verified 11/21/24 10:16) rash atorvastatin Adverse Reaction (Mild, Verified 11/21/24 10:16) myalgiias levofloxacin (From Levaquin) Adverse Reaction (Unknown, Verified 11/21/24 10:16) Nausea Medications ???Medication ???Instructions ???Recorded ???Confirmed ???Type ferrous sulfate 325 mg (65 mg 325 mg PO BID SUPPLEMENT 02/11/14 11/21/24 History iron) tablet multivitamin with folic acid 400 1 tab PO DAILY SUPPLEMENT 02/11/14 11/21/24 History mcg tablet trazodone 50 mg tablet 50 mg PO QHS SLEEP 02/11/14 History Held on 04/27/23. Instructions: MD Ordered biotin 10,000 mcg capsule 10,000 mcg PO DAILY HAIR LOSS 03/1211/21/24 History buspirone 5 mg tablet 5 mg PO TID PRN anxiety 05/30/21 0 11/21/24 History calcium 600 mg (as 1 cap PO BID 05/30/21 11/21/24 His tory carbonate)-vitamin D3 12.5 mcg (500 unit) capsule (Calcium with Vit D3) tramadol 50 mg tablet 50 mg PO Q6H PRN Pain Score 6-10 0 01/25/23 11/21/24 Rx Held on 04/27/23. #25 tabs Instructions: MD Ordered duloxetine 60 mg capsule,delayed 60 mg PO DAILY 01/18/24 11/21/24 H istory release (Cymbalta) hydroxychloroquine 200 mg tablet 200 mg PO BID 01/18/24 11/21/24 Hi story loratadine 10 mg tablet 10 mg PO QDAY PRN sinus 08/01/24 0 11/21/24 Rx symptoms/ear pressure #90 tabs meclizine 25 mg tablet 25 mg PO BID PRN dizziness #180 11/21/24 Rx tabs ropinirole 2 mg tablet 2 mg PO .COMPLEX #180 tabs 08/21/ 5 11/21/24 Rx tizanidine 4 mg tablet 8 mg (2 x 4 mg) PO QHS muscle 07/2511/21/24 Rx spasticity/leg restlessness #180 tabs gabapentin 300 mg capsule 300 mg PO TID 10/06/24 11/21/24 Hi story lisinopril 20 1 tab PO QDAY 10/06/24 11/21/24 Hi story mg-hydrochlorothiazi de 12.5 mg tablet metformin 1,000 mg tablet 1,000 mg PO BID 10/06/24 11/21/24 History warfarin 5 mg tablet (Jantoven) 10 mg PO DAILY 10/06/24 11/21/24 H istory Have you fallen in the past year?: Yes PFSH Medical History Contact with or exposure to other viral diseases Preop testing Post-menopausal Wears glasses Depression Anemia Pulmonary embolism DVT (deep venous thrombosis) History of ulceration CPAP (continuous positive airway pressure) dependence Sleep apnea Former smoker Shortness of breath on exertion Leg cramps History of edema History of stress test ( 04/06/20) Hypoxia Pneumonia Right hip pain History of iron deficiency Fatigue Claustrophobia Mild cognitive impairment Peripheral vestibulopathy Encounter for screening for COVID-19 Cerebrovascular small vessel disease Cerebral convexity meningioma Neuropathy History of pneumonia History of kidney stones High cholesterol Glaucoma History of UTI Cervical radiculitis History of DVT (deep vein thrombosis) Diabetes Anxiety and depression HTN (hypertension) Gastric ulcer GERD (gastroesophageal reflux disease) Renal calculus, bilateral Surgical History Status post biopsy of thyroid gland ( 08/2019) History of colonoscopy ( 2014) History of dilation and curettage History of carpal tunnel release of both wrists Status post panniculectomy History of [place]-en-Y gastric bypass History of umbilical hernia repair Family History Mother Heart disease Hypertension Father Heart disease CVA (cerebral vascular accident) Brother Cancer Social History household members: spouse housing: house Smoking Status: Former smoker Tobacco: How many years used: 40 Electronic Cigarette Use: not used how long ago did patient quit smoking: about a year and half ago second hand exposure: No alcohol intake: never substance use type: does not use what type of physical activity do you participate in: none do you feel safe at home: Yes HPI RIGHT HIP Details: This documentation accurately reflects the service provided and the decisions made by me, Dr. Jose Ramon Terry, 11/21/24 0753. Part of today???s visit was documented by Zuri TYLER, acting as scribe. ART BLUE is a 69 year old F here today for vasile (more content not included)... Normal [facility] normalized rat io (INR) calculationOrdered By: Candida Diaz on 2024 INR Coag (Bld) [Relative time] 1.1 {INR} [facility] Prothrombin Time w/INRon INR Coag (PPP) [Relative time] 1.1 {INR} Normal [facility] Comment on above: Performed By: #### L 300.3900 ####[facility] [id number] [place], [address] PT Coag (PPP) [Time] 13.9 s Normal 11.7-14.9 [facility] Comment on above: Performed By: #### L 300.3900 ####[facility] [id number] [place], [address] Prothrombin timeOrdered By: Candida Diaz on 2024 PT Coag (PPP) [Time] 13.9 s 11.7-14.9 [facility] L/S Spine Min 4 Viewson 10-21 L/S Spine Min 4 Views [facility] Imaging Services [address] [place] [address] L/S Spine Min 4 Views MR#: [id number] Acct: [id number] Name: ART BLUE Rep #: [id number] : 1955 F 68 From: Gerard Roman MD PCP: Dr. Meir Zepeda MD Status: DEP AMB Study: L/S Spine Min 4 Views Date of Exam: 11/07/24 Exam# [id number] Ordering Dr: Angela Bailey PROCEDURE: L/S SPINE MIN 4 VIEWS 11/07/2024 REASON FOR EXAM: CHRONIC PAIN TECHNIQUE: Four views, AP, lateral and flexion-extension views FINDINGS: 5 teb-ifq-agnokbq lumbar vertebral body types identified. Note of an inferior vena cava filter and surgical clips along the left of the thoracolumbar spine. Slight leftward curvature. No fracture or malalignment. L2-3 moderate disc space narrowing with degenerative endplate changes. L3-4 moderate disc space narrowing with degenerative endplate changes. Spondylosis/discogen ic change at L5-S1. Heavy appearing aortoiliac atherosclerotic calcification. No instability is identified on the flexion-extension views however there is not much change in degree of positioning between the neutral, flexion or extension. Bilateral hip osteoarthrosis appears greater on the right with possible tpgb-xa-rgxa contact, not well evaluated. RAD/L/S Spine Min 4 Views IMPRESSION: Spondylosis/discogen ic changes above. Reading Location: [id number] CC: ARIANA Field; Dr. Meir Zepeda MD Tube Builder: Signed Normal [facility] Orthopedic Visit Reporton Orthopedic Visit Report [facility] [address] [place] [address] OFFICE VISIT Date of Service: 11/07/24 MR#: [id number] Acct: [id number] Name: ART BLUE Rep #: [id number] : 1955 Provider: Dr. Juve Johnson MD Age/Sex: 68/F Location: [facility] Status: Signed Intake Vital Signs 10/06/24 11:30 11/06/24 11:37 Height 5 ft 5 in 5 ft 5 in Weight: 235 lb BMI 39.1 BP 112/60 Blood Pressure Location Lt brachial Position Sitting Respiration 17 Pulse 99 Pulse Source Monitor Temp 97.8 F Temp Source Temporal Pulse Oximetry (%) 96 Oxygen Delivery Method room air Intake Visit Reasons: LUMBAR SPINE Chief Complaint: School Office Assistant Required: No Accompanied by: Self Is patient in pain?: Yes (low back pain, BLE) Pain scale (1-10): 7 Allergies amoxicillin Allergy (Mild, Verified 11/07/24 13:51) rash atorvastatin Adverse Reaction (Mild, Verified 11/07/24 13:51) myalgiias levofloxacin (From Levaquin) Adverse Reaction (Unknown, Verified 11/07/24 13:51) Nausea Medications ???Medication ???Instructions ???Recorded ???Confirmed ???Type ferrous sulfate 325 mg (65 mg 325 mg PO BID SUPPLEMENT 02/11/14 11/07/24 History iron) tablet multivitamin with folic acid 400 1 tab PO DAILY SUPPLEMENT 02/11/14 11/07/24 History mcg tablet trazodone 50 mg tablet 50 mg PO QHS SLEEP 02/11/14 History Held on 04/27/23. Instructions: MD Ordered biotin 10,000 mcg capsule 10,000 mcg PO DAILY HAIR LOSS 03/1211/07/24 History buspirone 5 mg tablet 5 mg PO TID PRN anxiety 05/30/21 0 11/07/24 History calcium 600 mg (as 1 cap PO BID 05/30/21 11/07/24 His tory carbonate)-vitamin D3 12.5 mcg (500 unit) capsule (Calcium with Vit D3) tramadol 50 mg tablet 50 mg PO Q6H PRN Pain Score 6-10 0 01/25/23 11/07/24 Rx Held on 04/27/23. #25 tabs Instructions: MD Ordered duloxetine 60 mg capsule,delayed 60 mg PO DAILY 01/18/24 11/07/24 H istory release (Cymbalta) hydroxychloroquine 200 mg tablet 200 mg PO BID 01/18/24 11/07/24 Hi story loratadine 10 mg tablet 10 mg PO QDAY PRN sinus 08/01/24 0 11/07/24 Rx symptoms/ear pressure #90 tabs meclizine 25 mg tablet 25 mg PO BID PRN dizziness #180 11/07/24 Rx tabs ropinirole 2 mg tablet 2 mg PO .COMPLEX #180 tabs 08/21/2 5 11/07/24 Rx tizanidine 4 mg tablet 8 mg (2 x 4 mg) PO QHS muscle 07/2511/07/24 Rx spasticity/leg restlessness #180 tabs gabapentin 300 mg capsule 300 mg PO TID 10/06/24 11/07/24 Hi story lisinopril 20 1 tab PO QDAY 10/06/24 11/07/24 Hi story mg-hydrochlorothiazi de 12.5 mg tablet metformin 1,000 mg tablet 1,000 mg PO BID 10/06/24 11/07/24 History warfarin 5 mg tablet (Jantoven) 10 mg PO DAILY 10/06/24 11/07/24 H istory Have you fallen in the past year?: Yes PFSH Medical History Contact with or exposure to other viral diseases Preop testing Post-menopausal Wears glasses Depression Anemia Pulmonary embolism DVT (deep venous thrombosis) History of ulceration CPAP (continuous positive airway pressure) dependence Sleep apnea Former smoker Shortness of breath on exertion Leg cramps History of edema History of stress test ( 04/06/20) Hypoxia Pneumonia Right hip pain History of iron deficiency Fatigue Claustrophobia Mild cognitive impairment Peripheral vestibulopathy Encounter for screening for COVID-19 Cerebrovascular small vessel disease Cerebral convexity meningioma Neuropathy History of pneumonia History of kidney stones High cholesterol Glaucoma History of UTI Cervical radiculitis History of DVT (deep vein thrombosis) Diabetes Anxiety and depression HTN (hypertension) Gastric ulcer GERD (gastroesophageal reflux disease) Renal calculus, bilateral Surgical History Status post biopsy of thyroid gland ( 08/2019) History of colonoscopy ( 2014) History of dilation and curettage History of carpal tunnel release of both wrists Status post panniculectomy History of [place]-en-Y gastric bypass History of umbilical hernia repair Family History Mother Heart disease Hypertension Father Heart disease CVA (cerebral vascular accident) Brother Cancer Social History (Updated 11/07/24 @ 13:53 by Grace Laboy) household members: spouse housing: house Smoking Status: Former smoker Tobacco: How many years used: 40 Electronic Cigarette Use: not used how long ago did patient quit smoking: about a year and half ago second hand exposure: No alcohol intake: never substance use type: does not use what type of physical acti (more content not included)... Normal [facility] Office Visit Reporton 2024 Office Visit Report [facility] [address] [place] [address] OFFICE VISIT Date of Service: 11/06/24 MR#: [id number] Acct: [id number] Patient: ART BLUE Rep #: [id number] : 1955 Provider: Dr. Gilberto maynard MD Age/Sex: 68/F Location: [facility] Status: Signed Intake Vital Signs 09/02/24 11:00 10/06/24 11:30 11/06/24 11:37 Height 5 ft 5 in 5 ft 5 in 5 ft 5 in Weight: 242 lb 235 lb BMI 40.2 39.1 BP 117/73 112/60 Blood Pressure Location Lt brachial Lt brachial Position Sitting Sitting Respiration 18 17 Pulse 79 99 Pulse Source Monitor Monitor Temp 98.2 F 97.8 F Temp Source Temporal Pulse Oximetry (%) 96 96 Oxygen Delivery Method room air room air Intake Visit Reasons: B12 inject Chief Complaint: Allergies amoxicillin Allergy (Mild, Verified 10/06/24 11:31) rash atorvastatin Adverse Reaction (Mild, Verified 10/06/24 11:31) myalgiias levofloxacin (From Levaquin) Adverse Reaction (Unknown, Verified 10/06/24 11:31) Nausea Have you fallen in the past year?: Yes Office Meds cyanocobalamin (vitamin B-12) 1,000 mcg/mL injection solution Performing Provider: Gilberto Rasmussen MD Performing Location: [facility] Administered by: Chinyere Mandel on 11/06/24 11:40 Dose Route Admin Location Dispensed Lot Number Expiration Date NDC Man ufacturer 1,500 mcg IM left deltoid 1.5 mL [id number] 10/20/26 99322-292-44 SANDOVAL HENSON Comments: The patient presents for B12 injection for treatment of fatigue. She has fatigue. Her last B12 injection was of benefit for fatigue. The patient is awake and alert. B12 1500mcg IM was a dministered today. There were no complications. Assessment and Plan Assessment and Plan (1) Fatigue: Status: Chronic Qualifiers: Fatigue type: chronic, unspecified Qualified Code(s): R53.82 - Chronic fatigue, unspecified Orders: Orders Vitamin B12 Today R53.82 - Chronic fatigue, unspecified Clinical Quality Measures Falls Risk Screening/Assistive Devices Have you fallen in the past year?: Yes 11/06/24 1503 Date Gilberto Steward Signature: Date (if applicable) CC: Normal [facility] Absolute lymphocyte countOrd ered By: Doris Yip on 10-23-2024 Lymphocytes Auto (Unsp spec) [#/Vol] 2.17 10*3/uL 0.83-4.51 [facility] Absolute neutrophil countOrd ered By: Doris Yip on 10-23-2024 Neutrophils (Bld) [#/Vol] 8.0 10*3/uL High 2.0-7.7 [facility] Anion gap in Serum or Plasma Ordered By: Doris Yip on 10-23-2024 Anion gap [Moles/Vol] 15 mmol/L 5-15 [facility] Automated lymphocyte count a s percentage of total leukocytesOrdered By: Doris Yip on 10-23-2024 Lymphocytes/100 WBC Auto (Unsp spec) 19.5 % 19-41 [facility] BUN/creatinine ratioOrdered By: [facility] Theodora on 10-23-2024 Urea nitrogen/Creatinine [Mass ratio] 21.9 mg/mg High 10-20 [facility] Basophil percentageOrdered B y: Doris Yip on 10-23-2024 Basophils/100 WBC (Bld) 0.4 % 0-1 [facility] Bilirubin, totalOrdered By: Dorisasher Yip on 10-23-2024 Bilirubin [Mass/Vol] 0.27 mg/dL 0.00-1.30 [facility] CBC W/Diff, Automatedon Absolute Lymph 2.17 X10 3/uL Normal 0.83-4.51 [facility] Comment on above: Performed By: #### L 100.0100, L500.4050 ####[facility] [address] [place], [address] Absolute Neut 8.0 X10 3/uL High 2.0-7.7 [facility] Comment on above: Performed By: #### L 100.0100, L500.4050 ####[facility] [address] [place], [address] Basophils/100 WBC (Bld) 0.4 % Normal 0-1 [facility] Comment on above: Performed By: #### L 100.0100, L500.4050 ####[facility] [address] [place], [address] Eosinophils/100 WBC (Bld) 1.2 % Normal 0-5 [facility] Comment on above: Performed By: #### L 100.0100, L500.4050 ####[facility] [address] [place], [address] Erythrocyte distribution width (RBC) [Ratio] 14.7 % High 11.6-14.6 [facility] Comment on above: Performed By: #### L 100.0100, L500.4050 ####[facility] [address] [place], [address] Hematocrit (Bld) [Volume fraction] 38.1 % Normal 37-47 [facility] Comment on above: Performed By: #### L 100.0100, L500.4050 ####[facility] [address] [place], [address] Hemoglobin (Bld) [Mass/Vol] 12.6 g/dL Normal 12.0-15. 0 [facility] Comment on above: Performed By: #### L 100.0100, L500.4050 ####[facility] [address] [place], [address] IG% 0.900 Normal 0.0-0.9 [facility] Comment on above: Result Comment: IG% - Immature Granulocytes (promyelocytes, myelocytes and metamyelocytes) > 1% indicates that a LEFT SHIFT is Present. Performed By: #### L 100.0100, L500.4050 ####[facility] [address] [place], [address] Lymphocytes/100 WBC (Bld) 19.5 % Normal 19-41 [facility] Comment on above: Performed By: #### L 100.0100, L500.4050 ####[facility] [address] [place], [address] MCH (RBC) [Entitic mass] 31.0 pg Normal 27.0-32.0 [facility] Comment on above: Performed By: #### L 100.0100, L500.4050 ####[facility] [address] [place], [address] MCHC (RBC) [Mass/Vol] 33.1 g/dL Normal 32-36 [facility] Comment on above: Performed By: #### L 100.0100, L500.4050 ####[facility] [address] [place], [address] MCV (RBC) [Entitic vol] 93.8 fL Normal 81-99 [facility] Comment on above: Performed By: #### L 100.0100, L500.4050 ####[facility] [address] [place], [address] Monocytes/100 WBC (Bld) 6.2 % Normal 0-10 [facility] Comment on above: Performed By: #### L 100.0100, L500.4050 ####[facility] [address] [place], [address] Neutrophils/100 WBC (Bld) 71.8 % High 47-70 [facility] Comment on above: Performed By: #### L 100.0100, L500.4050 ####[facility] [address] [place], [address] Nucleated RBC (Bld) [#/Vol] 0 10*3/uL Normal 0-5 [facility] Comment on above: Performed By: #### L 100.0100, L500.4050 ####[facility] [address] [place], [address] Platelet mean volume (Bld) [Entitic vol] 10.4 fL Normal 6.2-12.0 [facility] Comment on above: Performed By: #### L 100.0100, L500.4050 ####[facility] [address] [place], [address] Platelets (Bld) [#/Vol] 362 10*3/uL Normal 150-450 [facility] Comment on above: Performed By: #### L 100.0100, L500.4050 ####[facility] [address] [place], [address] RBC (Bld) [#/Vol] 4.06 10*6/uL Low 4.2-5.4 [facility] Comment on above: Performed By: #### L 100.0100, L500.4050 ####[facility] [address] [place], [address] RDW SD 50.0 fl High 35.1-43.9 [facility] Comment on above: Performed By: #### L 100.0100, L500.4050 ####[facility] [address] [place], [address] WBC (Bld) [#/Vol] 11.2 10*3/uL High 4.4-11.0 [facility] Comment on above: Performed By: #### L 100.0100, L500.4050 ####[facility] [address] [place], [address] Carbon dioxide, total [Moles /volume] in Central venous bloodOrdered By: Doris Yip on 10-23-2024 CO2 [Moles/Vol] 23.9 mmol/L 21.0-32.0 [facility] Chloride assayOrdered By: Ariana Yip on 10-23-2024 Chloride [Moles/Vol] 100 mmol/L 98-108 [facility] Prof ilon 10-23-2024 Albumin [Mass/Vol] 4.3 g/dL Normal 3.4-4.8 [facility] Comment on above: Performed By: #### L 100.0100, L500.4050 ####[facility] [address] [place], [address] Albumin/Globulin [Mass ratio] 1.4 {ratio} Normal 0.9-2.4 [facility] Comment on above: Performed By: #### L 100.0100, L500.4050 ####[facility] [address] [place], [address] ALK PHOS 57 U/L Normal 35-104 [facility] Comment on above: Performed By: #### L 100.0100, L500.4050 ####[facility] [address] [place], [address] ALT [Catalytic activity/Vol] 20 U/L Normal <=34 [facility] Comment on above: Performed By: #### L 100.0100, L500.4050 ####[facility] [address] [place], [address] AST [Catalytic activity/Vol] 21 U/L Normal <=31 [facility] Comment on above: Performed By: #### L 100.0100, L500.4050 ####[facility] [address] [place], [address] Bilirubin [Mass/Vol] 0.27 mg/dL Normal 0.00-1.30 [facility] Comment on above: Performed By: #### L 100.0100, L500.4050 ####[facility] [address] [place], [address] BUN/CRE 21.9 RATIO High 10-20 [facility] Comment on above: Performed By: #### L 100.0100, L500.4050 ####[facility] [address] [place], [address] Calcium [Mass/Vol] 9.5 mg/dL Normal 7.6-11.0 [facility] Comment on above: Performed By: #### L 100.0100, L500.4050 ####[facility] [address] [place], [address] Chloride [Moles/Vol] 100 mmol/L Normal 98-108 [facility] Comment on above: Performed By: #### L 100.0100, L500.4050 ####[facility] [address] [place], [address] CO2 [Moles/Vol] 23.9 mmol/L Normal 21.0-32.0 [facility] Comment on above: Performed By: #### L 100.0100, L500.4050 ####[facility] [address] [place], [address] Creatinine [Mass/Vol] 0.84 mg/dL Normal 0.70-1.20 [facility] Comment on above: Performed By: #### L 100.0100, L500.4050 ####[facility] [address] [place], [address] GAP 15 Normal 5-15 [facility] Comment on above: Performed By: #### L 100.0100, L500.4050 ####[facility] [address] [place], [address] GFR/1.73 sq M.predicted among non-blacks MDRD (S/P/Bld) [Vol rate/Area] 76 mL/min/{1.73_m2} Normal >60 [facility] Comment on above: Result Comment: mL/m in/1.73m2 CKD-EPI Creatinine Equation (2020) Performed By: #### L 100.0100, L500.4050 ####[facility] [address] [place], [address] Globulin (S) [Mass/Vol] 3.2 g/dL Normal 2.2-4.2 [facility] Comment on above: Performed By: #### L 100.0100, L500.4050 ####[facility] [address] [place], [address] Glucose [Mass/Vol] 124 mg/dL High 70-99 [facility] Comment on above: Performed By: #### L 100.0100, L500.4050 ####[facility] [address] [place], [address] Potassium [Moles/Vol] 4.2 mmol/L Normal 3.3-5.1 [facility] Comment on above: Performed By: #### L 100.0100, L500.4050 ####[facility] [address] [place], [address] Sodium [Moles/Vol] 139 mmol/L Normal 133-145 [facility] Comment on above: Performed By: #### L 100.0100, L500.4050 ####[facility] [address] [place], [address] T PROT 7.4 g/dL Normal 5.9-8.4 [facility] Comment on above: Performed By: #### L 100.0100, L500.4050 ####[facility] [address] [place], [address] Urea nitrogen [Mass/Vol] 18 mg/dL Normal 4-19 [facility] Comment on above: Performed By: #### L 100.0100, L500.4050 ####[facility] [address] [place], [address] Eosinophil percentageOrdered By: Doris Yip on 10-23-2024 Eosinophils/100 WBC (Bld) 1.2 % 0-5 [facility] Erythrocyte distribution wid th (RBC) [Ratio]Ordered By: Doris Yip on 10-23-2024 Erythrocyte distribution width (RBC) [Entitic vol] 50.0 fL High 35.1-43.9 [facility] Erythrocyte distribution wid th ratioOrdered By: Doris Yip on 10-23-2024 Erythrocyte distribution width (RBC) [Ratio] 14.7 % High 11.6-14.6 [facility] Erythrocyte distribution wid th standard deviationOrdered By: Doris Yip on 10-23-2024 Erythrocyte distribution width (RBC) [Ratio] 50.0 fl High 35.1-43.9 [facility] GFR/1.73 sq M.predicted [place] g non-blacks MDRD (S/P/Bld) [Vol rate/Area]Ordered By: Doris Yip on 10-23-2024 Estimated GFR (MDRD) Non-Af Amer 76 >60 [facility] Comment on above: mL/min/1.73m2 CKD-EP I Creatinine Equation (2020) Glomerular filtration rate ( GFR) estimation/1.73 sq m using serum, plasma, or whole bOrdered By: Doris Yip on 10-23-2024 GFR/1.73 sq M.predicted among non-blacks MDRD (S/P/Bld) [Vol rate/Area] 76 mL/min/{1.73_m2} >60 [facility] Comment on above: mL/min/1.73m2 CKD-EP I Creatinine Equation (2020) Hematocrit Auto (Bld) [Volum e fraction]Ordered By: Doris Yip on 10-23-2024 Hematocrit (Bld) [Volume fraction] 38.1 % 37-47 [facility] Hemoglobin measurementOrdere d By: Doris Yip on 10-23-2024 Hemoglobin (Bld) [Mass/Vol] 12.6 g/dL 12.0-15. 0 [facility] Immature granulocytes/100 WB C Auto (Bld)Ordered By: Doris Yip on 10-23-2024 Immature granulocytes/100 WBC (Bld) 0.900 % 0.0-0.9 [facility] Comment on above: IG% - Immature Granu locytes (promyelocytes, myelocytes and metamyelocytes) > 1% indicates that a LEFT SHIFT is Present. Laboratory - Chemistry and C hemistry - challengeOrdered By: Doris Yip on 10-23-2024 AST [Catalytic activity/Vol] 21 U/L <32 [facility] Lymphocytes Auto (Unsp spec) [#/Vol]Ordered By: Doris Yip on 10-23-2024 Lymphocytes (Bld) [#/Vol] 2.17 10*3/uL 0.83-4.5 1 [facility] Lymphocytes/100 WBC Auto (Un sp spec)Ordered By: Doris Yip on 10-23-2024 Lymphocytes/100 WBC (Bld) 19.5 % 19-41 [facility] MCV (mean corpuscular volume ) determinationOrdered By: Doris Yip on 10-23-2024 MCV (RBC) [Entitic vol] 93.8 fL 81-99 [facility] Mean corpuscular hemoglobin (MCH) determinationOrdered By: Doris Yip on 10-23-2024 MCH (RBC) [Entitic mass] 31.0 pg 27.0-32.0 [facility] Mean corpuscular hemoglobin concentration (MCHC) determinationOrdered By: Doris Yip on 10-23-2024 MCHC (RBC) [Mass/Vol] 33.1 g/dL 32-36 [facility] Mean platelet volume determi nationOrdered By: Doris Yip on 10-23-2024 Platelet mean volume (Bld) [Entitic vol] 10.4 fL 6.2-12.0 [facility] Monocyte percentageOrdered B y: Doris Yip on 10-23-2024 Monocytes/100 WBC (Bld) 6.2 % 0-10 [facility] Neutrophil percentageOrdered By: Doris Yip on 10-23-2024 Neutrophils/100 WBC (Bld) 71.8 % High 47-70 [facility] Nucleated red blood cell per centageOrdered By: Doris Yip on 10-23-2024 Nucleated RBC/100 WBC (Bld) [Ratio] 0 % 0-5 [facility] Platelet countOrdered By: Ariana Yip on 10-23-2024 Platelets (Bld) [#/Vol] 362 10*3/uL 150-450 [facility] Potassium (Unsp spec) [Mass/ Vol]Ordered By: Doris Yip on 10-23-2024 Potassium [Moles/Vol] 4.2 mmol/L 3.3-5.1 [facility] Potassium measurement (mass/ volume)Ordered By: Doris Yip on 10-23-2024 Potassium (Unsp spec) [Mass/Vol] 4.2 mmol/L 3.3-5.1 [facility] RBC Auto (Bld) [#/Vol]Ordere d By: Doris Yip on 10-23-2024 RBC (Bld) [#/Vol] 4.06 10*6/uL Low 4.2-5.4 [facility] Serum creatinine measurement (mass/volume)Ordered By: Doris Yip on 10-23-2024 Creatinine [Mass/Vol] 0.84 mg/dL 0.70-1.20 [facility] Serum globulin measurementOr dered By: Doris Yip on 10-23-2024 Globulin (S) [Mass/Vol] 3.2 g/dL 2.2-4.2 [facility] Serum glucose measurement (m ass/volume)Ordered By: Doris Yip on 10-23-2024 Glucose [Mass/Vol] 124 mg/dL High 70-99 [facility] Serum or plasma alanine reyes otransferase (ALT) measurementOrdered By: Doris Yip on 10-23-2024 ALT [Catalytic activity/Vol] 20 U/L <35 [facility] Serum or plasma albumin jatin urement (mass/volume)Ordered By: Doris Yip on 10-23-2024 Albumin [Mass/Vol] 4.3 g/dL 3.4-4.8 [facility] Serum or plasma albumin/glob ulin mass ratioOrdered By: Doris Yip on 10-23-2024 Albumin/Globulin [Mass ratio] 1.4 {ratio} 0.9-2.4 [facility] Serum or plasma alkaline lana sphatase measurementOrdered By: Doris Yip on 10-23-2024 ALP [Catalytic activity/Vol] 57 U/L 35-104 [facility] Serum or plasma calcium jatin urement (mass/volume)Ordered By: Doris Yip on 10-23-2024 Calcium [Mass/Vol] 9.5 mg/dL 7.6-11.0 [facility] Serum or plasma urea nitroge n measurement (mass/volume)Ordered By: Doris Yip on 10-23-2024 Urea nitrogen [Mass/Vol] 18 mg/dL 4-19 [facility] Sodium levelOrdered By: Katherine Yip on 10-23-2024 Sodium [Moles/Vol] 139 mmol/L 133-145 [facility] Total proteinOrdered By: Liyah Yip on 10-23-2024 Protein [Mass/Vol] 7.4 g/dL 5.9-8.4 [facility] White blood cell (WBC) count Ordered By: Doris Yip on 10-23-2024 WBC (Bld) [#/Vol] 11.2 10*3/uL High 4.4-11.0 [facility] Oncology Visit Reporton 09-20 Oncology Visit Report [facility] [address] [place] [id number] OFFICE VISIT Date of Service: 10/06/24 1128 MR#: [id number] Acct: [id number] Name: ART BLUE Rep #: [id number] : 1955 From: Jose Ramon Mckenzie MD Age/Sex: 68/F Location: [facility] Status: Signed HPI Subjective Date of Service 10/06/24 Chief Complaint F/u for bilateral adenoma History of Present Illness 68y.o. woman was found to have abnormal serum proteins and referred for further evaluation. She was admitted at [facility] for pneumonia and pleural effusion, had chest tube placed in February 2023. Was found to have abnormal Free light chains, bilateral adrenal nodules. Had CT on 10/04/2023 which showed fatty infiltration, stable bilateral fat containing nodules in both adrenal glands. She is on observation, comes for follow-up. And blood work and comes for follow up. Feeling better now. [facility] Medical History Contact with or exposure to other viral diseases Preop testing Post-menopausal Wears glasses Depression Anemia Pulmonary embolism DVT (deep venous thrombosis) History of ulceration CPAP (continuous positive airway pressure) dependence Sleep apnea Former smoker Shortness of breath on exertion Leg cramps History of edema History of stress test ( 04/06/20) Hypoxia Pneumonia Right hip pain History of iron deficiency Fatigue Claustrophobia Mild cognitive impairment Peripheral vestibulopathy Encounter for screening for COVID-19 Cerebrovascular small vessel disease Cerebral convexity meningioma Neuropathy History of pneumonia History of kidney stones High cholesterol Glaucoma History of UTI Cervical radiculitis History of DVT (deep vein thrombosis) Diabetes Anxiety and depression HTN (hypertension) Gastric ulcer GERD (gastroesophageal reflux disease) Renal calculus, bilateral Surgical History Status post biopsy of thyroid gland ( 08/2019) History of colonoscopy ( 2014) History of dilation and curettage History of carpal tunnel release of both wrists Status post panniculectomy History of [place]-en-Y gastric bypass History of umbilical hernia repair Family History Mother Heart disease Hypertension Father Heart disease CVA (cerebral vascular accident) Brother Cancer Social History household members: spouse housing: house Smoking Status: Never smoker Tobacco: How many years used: 40 Electronic Cigarette Use: not used how long ago did patient quit smoking: about a year and half ago second hand exposure: No alcohol intake: never substance use type: does not use what type of physical activity do you participate in: none do you feel safe at home: Yes Intake Vital Signs 07/31/24 13:30 10/02/24 11:48 10/06/24 11:30 Height 5 ft 5 in 5 ft 5 in 5 ft 5 in Weight: 109.769 kg BMI 40.2 BP 117/73 Blood Pressure Location Lt brachial Position Sitting Respiration 18 Pulse 79 Pulse Source Monitor Temp 98.2 F Temperature Source Temporal Artery Pulse Oximetry (%) 96 Oxygen Delivery Method room air Intake Is patient in pain?: Yes (bilateral legs (Chronic)) Pain scale (1-10): 6 Allergies amoxicillin Allergy (Mild, Verified 10/06/24 11:31) rash atorvastatin Adverse Reaction (Mild, Verified 10/06/24 11:31) myalgiias levofloxacin (From Levaquin) Adverse Reaction (Unknown, Verified 10/06/24 11:31) Nausea Medications ???Medication ???Instructions ???Recorded ???Confirmed ???Type ferrous sulfate 325 mg (65 mg 325 mg PO BID SUPPLEMENT 02/11/14 10/06/24 History iron) tablet multivitamin with folic acid 400 1 tab PO DAILY SUPPLEMENT 02/11/14 10/06/24 History mcg tablet omeprazole 20 mg capsule,delayed 20 mg PO BID REFLUX 02/11/1410/06 History release trazodone 50 mg tablet 50 mg PO QHS SLEEP 02/11/14 History Held on 04/27/23. Instructions: MD Ordered biotin 10,000 mcg capsule 10,000 mcg PO DAILY HAIR LOSS 03/1210/06/24 History buspirone 5 mg tablet 5 mg PO TID PRN anxiety 05/30/21 0 10/06/24 History calcium 600 mg (as 1 cap PO BID 05/30/21 10/06/24 His tory carbonate)-vitamin D3 12.5 mcg (500 unit) capsule (Calcium with Vit D3) tramadol 50 mg tablet 50 mg PO Q6H PRN Pain Score 6-10 0 01/25/23 10/06/24 Rx Held on 04/27/23. #25 tabs Instructions: Ordered duloxetine 60 mg capsule,delayed 60 mg PO DAILY 01/18/24 10/06/24 H istory release (Cymbalta) estradiol 0.01% (0.1 mg/gram) vaginal 01/18/24 10/06/24 History vaginal cream hydroxychloroquine 200 mg tablet 200 mg PO BID 01/18/24 10/06/24 Hi s (more content not included)... Normal [facility] Office Visit Reporton 2024 Office Visit Report [facility] [address] [place] [address] OFFICE VISIT Date of Service: 10/02/24 MR#: [id number] Acct: [id number] Patient: ART BLUE Rep #: [id number] : 1955 Provider: Dr. Gilberto maynard MD Age/Sex: 68/F Location: [facility] Status: Signed Intake Vital Signs 07/31/24 13:30 09/02/24 11:00 10/02/24 11:48 Height 5 ft 5 in 5 ft 5 in 5 ft 5 in Weight: 243 lb 240 lb BMI 40.4 39.9 BP 114/50 L 118/58 L Blood Pressure Location Lt brachial Lt brachial Position Sitting Sitting Respiration 17 17 Pulse 107 H 80 Pulse Source Monitor Monitor Temp 97.8 F 97.8 F Temp Source Temporal Temporal Pulse Oximetry (%) 96 97 Oxygen Delivery Method room air room air Intake Visit Reasons: B12 inject Chief Complaint: Allergies amoxicillin Allergy (Mild, Verified 07/31/24 13:34) rash atorvastatin Adverse Reaction (Mild, Verified 07/31/24 13:34) myalgiias levofloxacin (From Levaquin) Adverse Reaction (Unknown, Verified 07/31/24 13:34) Nausea Patient : Yes Have you fallen in the past year?: Yes Office Meds cyanocobalamin (vitamin B-12) 1,000 mcg/mL injection solution Performing Provider: Gilberto Rasmussen MD Performing Location: [facility] Administered by: Chinyere Mandel on 10/02/24 11:54 Dose Route Admin Location Dispensed Lot Number Expiration Date SCC Man ufacturer 1,500 mcg IM right deltoid 1.5 mL [id number] 10/20/26 23915-625-87 VITRUVI THERA Comments: The patient presents for B12 injection for treatment of fatigue. She has fatigue. Her last B12 injection was of benefit for fatigue. The patient is awake and alert. B12 1500mcg IM was administered today. There were no complications. Assessment and Plan Assessment and Plan (1) Fatigue: Status: Chronic Qualifiers: Fatigue type: chronic, unspecified Qualified Code(s): R53.82 - Chronic fatigue, unspecified Orders: Orders Vitamin B12 Today R53.82 - Chronic fatigue, unspecified Clinical Quality Measures Falls Risk Screening/Assistive Devices Have you fallen in the past year?: Yes 10/02/24 1617 Date Gilberto Steward Signature: Date (if applicable) CC: Normal [facility] OVIDIO + Protein Elect, Serumon 10-01-2024 Albumin [Mass/Vol] 3.3 g/dL Normal 2.9-4.4 [facility] Comment on above: Order Comment: N Performed By: #### L 3130.0010, L3100.3425, L501.9520, L500.4050, L504.2610, L100.0100, L506.0400 ####[facility] [address] [place], [address] Albumin/Globulin [Mass ratio] 1.0 {ratio} Normal 0.7-1.7 [facility] Comment on above: Order Comment: N Performed By: #### L 3130.0010, L3100.3425, L501.9520, L500.4050, L504.2610, L100.0100, L506.0400 ####[facility] [address] [place], [address] QBWLU-9-MXAL 0.3 g/dL Normal 0.0-0.4 [facility] Comment on above: Order Comment: N Performed By: #### L 3130.0010, L3100.3425, L501.9520, L500.4050, L504.2610, L100.0100, L506.0400 ####[facility] [address] [place], [address] ALDAH-5-HVNZ 1.1 g/dL High 0.4-1.0 [facility] Comment on above: Order Comment: N Performed By: #### L 3130.0010, L3100.3425, L501.9520, L500.4050, L504.2610, L100.0100, L506.0400 ####[facility] [address] [place], [address] BETA GLOBULIN 1.2 g/dL Normal 0.7-1.3 [facility] Comment on above: Order Comment: N Performed By: #### L 3130.0010, L3100.3425, L501.9520, L500.4050, L504.2610, L100.0100, L506.0400 ####[facility] [address] [place], [place], [phone] GAMMA GLOBULIN 1.1 g/dL Normal 0.4-1.8 [facility] Comment on above: Order Comment: N Performed By: #### L 3130.0010, L3100.3425, L501.9520, L500.4050, L504.2610, L100.0100, L506.0400 ####[facility] [address] [place], [place], [phone] Globulin (S) [Mass/Vol] 3.6 g/dL Normal 2.2-3.9 [facility] Comment on above: Order Comment: N Performed By: #### L 3130.0010, L3100.3425, L501.9520, L500.4050, L504.2610, L100.0100, L506.0400 ####[facility] [address] [place], [address] OVIDIO RESULT,S Comment: Normal . [facility] Comment on above: Order Comment: N Result Comment: Pres ence of monoclonal protein is unclear at this time. Suggest repeat in 3 to 6 months if clinically indicated. Performed By: #### L 3130.0010, L3100.3425, L501.9520, L500.4050, L504.2610, L100.0100, L506.0400 ####[facility] [address] [place], [address] IMMUNOGLOB A QN 158 mg/dL Normal 87-352 [facility] Comment on above: Order Comment: N Performed By: #### L 3130.0010, L3100.3425, L501.9520, L500.4050, L504.2610, L100.0100, L506.0400 ####[facility] [address] [place], [address] IMMUNOGLOB G QN 1030 mg/dL Normal 586-1602 [facility] Comment on above: Order Comment: N Performed By: #### L 3130.0010, L3100.3425, L501.9520, L500.4050, L504.2610, L100.0100, L506.0400 ####[facility] [address] [place], [address] IMMUNOGLOB M QN 95 mg/dL Normal 26-217 [facility] Comment on above: Order Comment: N Performed By: #### L 3130.0010, L3100.3425, L501.9520, L500.4050, L504.2610, L100.0100, L506.0400 ####[facility] [address] [place], [address] M-Thomas Comment: Normal Not Observed [facility] Comment on above: Order Comment: N Result Comment: SPE shows an asymmetrical gamma. Performed By: #### L 3130.0010, L3100.3425, L501.9520, L500.4050, L504.2610, L100.0100, L506.0400 ####[facility] [address] [place], [place], [id number] NOTE: Comment Normal . [facility] Comment on above: Order Comment: N Result Comment: Prot ein electrophoresis scan will follow via computer, mail, or machine fastener delivery. Performed By: #### L 3130.0010, L3100.3425, L501.9520, L500.4050, L504.2610, L100.0100, L506.0400 ####[facility] [address] [place], [address] Protein [Mass/Vol] 6.9 g/dL Normal 6.0-8.5 [facility] Comment on above: Order Comment: N Performed By: #### L 3130.0010, L3100.3425, L501.9520, L500.4050, L504.2610, L100.0100, L506.0400 ####[facility] [address] [place], [address] [place] [employer] Chainson 10-01-2024 FR KAPPA LT CHN 33.6 mg/L Abnormal 3.3-19.4 [facility] Comment on above: Performed By: #### L 3130.0010, L3100.3425, L501.9520, L500.4050, L504.2610, L100.0100, L506.0400 ####[facility] [address] [place], [address] FR LAMBDA LT CH 27.4 mg/L Abnormal 5.7-26.3 [facility] Comment on above: Performed By: #### L 3130.0010, L3100.3425, L501.9520, L500.4050, L504.2610, L100.0100, L506.0400 ####[facility] [address] [place], [address] KAPPA/LAMBDA % 1.23 Normal 0.26-1.65 [facility] Comment on above: Result Comment: Perf ormed at: - [facility] [place] [id number] Hand Carver: Herb Kincaid PhD, Phone: [phone] Performed By: #### L 2485.5990, L3100.2245, L501.1820, L500.4050, L504.2610, L100.0100, L506.0400 ####[facility] [address] [place], [place], [address] Abdomen/Pelvis W IV Cont ONL Yon 09-29-2024 Abdomen/Pelvis W IV Cont ONLY [facility] Imaging Services [address] [place], [place] [id number] Abdomen/Pelvis W IV Cont ONLY MR#: [id number] Acct: [id number] Name: ART BLUE Rep #: [id number] : [id number] F 68 From: Neymar Rueda MD PCP: Dr. Meir Zepeda MD Status: REG CLI Study: Abdomen/Pelvis W IV Cont ONLY Date of Exam: Exam# [id number] Ordering Dr: Jose Ramon Mckenzie MD EXAM: CT Abdomen and Pelvis With Intravenous Contrast CLINICAL INDICATION: TECHNIQUE: Axial computed tomography images of the abdomen and pelvis with intravenous contrast. This CT exam was performed using one or more of the following dose reduction techniques: automated exposure control, adjustment of the mA and/or kV according to patient size, and/or use of iterative reconstruction technique. COMPARISON: CT Abdomen Pelvis dated 10/01/2023 FINDINGS: LUNG BASES: Partially visualized lung emphysema. No consolidation. ABDOMEN: LIVER: Hepatomegaly with fatty infiltration. GALLBLADDER AND BILE DUCTS: Unremarkable. No calcified stones. No ductal dilation. PANCREAS: Unremarkable. No mass. No ductal dilation. SPLEEN: Unremarkable. No splenomegaly. ADRENALS: Unremarkable. No mass. KIDNEYS AND URETERS: 5 mm calculus of the right renal pelvis without obstruction. STOMACH AND BOWEL: Colonic diverticulosis without acute diverticulitis. No obstruction. PELVIS: APPENDIX: No findings to suggest acute appendicitis. BLADDER: Unremarkable. No mass. REPRODUCTIVE: Unremarkable as visualized. ABDOMEN and PELVIS: INTRAPERITONEAL SPACE: Unremarkable. No free air. No significant fluid collection. BONES/JOINTS: Degenerative disc disease throughout the lumbar spine. Degenerative facet arthropathy throughout the lumbar spine, most prominent in the lower lumbar spine. No acute fracture. No dislocation. SOFT TISSUES: Unremarkable. VASCULATURE: Indwelling IVC filter. Scattered calcified atherosclerotic disease of aorta. No abdominal aortic aneurysm. LYMPH NODES: Unremarkable. No enlarged lymph nodes. CT/Abdomen/Pelvis W IV Cont ONLY IMPRESSION: 1. Hepatomegaly with fatty infiltration. 2. 5 mm calculus of the right renal pelvis without obstruction. 3. Colonic diverticulosis without acute diverticulitis. 4. Degenerative changes lumbar spine as described. Reading Location: [facility] CC: Dr. Meir Zepeda MD; Dr. Jose Ramon Mckenzie MD Tube Builder: Signed Normal [facility] Absolute lymphocyte countOrd ered By: Jose Ramon Mckenzie on 09-29-2024 Lymphocytes Auto (Unsp spec) [#/Vol] 2.28 10*3/uL 0.83-4.51 [facility] Absolute neutrophil countOrd ered By: Jose Ramon Mckenzie on 09-29-2024 Neutrophils (Bld) [#/Vol] 6.2 10*3/uL 2.0-7.7 [facility] Addendum DocumentOrdered By: Jose Ramon Mckenzie on 09-29-2024 Serum Immunofixation Comments Comment . [facility] Comment on above: Protein electrophore sis scan will follow via computer,mail, or machine fastener delivery. Albumin Elph [Mass/Vol]Order ed By: Jose Ramon Mckenzie on 09-29-2024 Albumin [Mass/Vol] 3.3 g/dL 2.9-4.4 [facility] Alpha 1 globulin Elph [Mass/ Vol]Ordered By: Jose Ramon Mckenzie on 09-29-2024 Ldxnl-5-Qpdisadlk (OVIDIO) 0.3 g/dL 0.0-0.4 [facility] Xovsl-5-Yxxprhmja (OVIDIO) 1.1 g/dL High 0.4-1.0 [facility] Anion gap in Serum or Plasma Ordered By: Jose Ramon Mckenzie on 09-29-2024 Anion gap [Moles/Vol] 13 mmol/L 5-15 [facility] Automated lymphocyte count a s percentage of total leukocytesOrdered By: Jose Ramon Mckenzie on 09-29-2024 Lymphocytes/100 WBC Auto (Unsp spec) 25.0 % - [facility] BUN/creatinine ratioOrdered By: Jose Ramon Mckenzie on 09-29-2024 Urea nitrogen/Creatinine [Mass ratio] 16.0 mg/mg - [facility] Basophil percentageOrdered B y: Jose Ramon Mckenzie on 09-29-2024 Basophils/100 WBC (Bld) 0.5 % 0-1 [facility] Beta globulin Elph [Mass/Vol ]Ordered By: Jose Ramon Grovekristian on 09-29-2024 Beta-Globulins (OVIDIO) 1.2 g/dL 0.7-1.3 [facility] Bilirubin, totalOrdered By: Jose Ramon Grovekristian on 09-29-2024 Bilirubin [Mass/Vol] 0.32 mg/dL 0.00-1.30 [facility] CBC W/Diff, Automatedon 09-20 Absolute Lymph 2.28 X10 3/uL Normal 0.83-4.51 [facility] Comment on above: Performed By: #### L 3130.0010, L3100.3425, L501.9520, L500.4050, L504.2610, L100.0100, L506.0400 #### [facility] [address] [place], [address] Absolute Neut 6.2 X10 3/uL Normal 2.0-7.7 [facility] Comment on above: Performed By: #### L 3130.0010, L3100.3425, L501.9520, L500.4050, L504.2610, L100.0100, L506.0400 #### [facility] [address] [place], [address] Basophils/100 WBC (Bld) 0.5 % Normal 0-1 [facility] Comment on above: Performed By: #### L 3130.0010, L3100.3425, L501.9520, L500.4050, L504.2610, L100.0100, L506.0400 #### [facility] [address] [place], [address] Eosinophils/100 WBC (Bld) 1.4 % Normal 0-5 [facility] Comment on above: Performed By: #### L 3130.0010, L3100.3425, L501.9520, L500.4050, L504.2610, L100.0100, L506.0400 #### [facility] [address] [place], [address] Erythrocyte distribution width (RBC) [Ratio] 15.4 % High 11.6-14.6 [facility] Comment on above: Performed By: #### L 3130.0010, L3100.3425, L501.9520, L500.4050, L504.2610, L100.0100, L506.0400 #### [facility] [address] [place], [address] Hematocrit (Bld) [Volume fraction] 37.3 % Normal 37-47 [facility] Comment on above: Performed By: #### L 3130.0010, L3100.3425, L501.9520, L500.4050, L504.2610, L100.0100, L506.0400 #### [facility] [address] [place], [address] Hemoglobin (Bld) [Mass/Vol] 12.2 g/dL Normal 12.0-15. 0 [facility] Comment on above: Performed By: #### L 3130.0010, L3100.3425, L501.9520, L500.4050, L504.2610, L100.0100, L506.0400 #### [facility] [address] [place], [address] IG% 0.400 Normal 0.0-0.9 [facility] Comment on above: Result Comment: IG% - Immature Granulocytes (promyelocytes, myelocytes and metamyelocytes) > 1% indicates that a LEFT SHIFT is Present. Performed By: #### L 3130.0010, L3100.3425, L501.9520, L500.4050, L504.2610, L100.0100, L506.0400 #### [facility] [address] [place], [address] Lymphocytes/100 WBC (Bld) 25.0 % Normal 19-41 [facility] Comment on above: Performed By: #### L 3130.0010, L3100.3425, L501.9520, L500.4050, L504.2610, L100.0100, L506.0400 #### [facility] [address] [place], [address] MCH (RBC) [Entitic mass] 31.0 pg Normal 27.0-32.0 [facility] Comment on above: Performed By: #### L 3130.0010, L3100.3425, L501.9520, L500.4050, L504.2610, L100.0100, L506.0400 #### [facility] [address] [place], [address] MCHC (RBC) [Mass/Vol] 32.7 g/dL Normal 32-36 [facility] Comment on above: Performed By: #### L 3130.0010, L3100.3425, L501.9520, L500.4050, L504.2610, L100.0100, L506.0400 #### [facility] [address] [place], [address] MCV (RBC) [Entitic vol] 94.7 fL Normal 81-99 [facility] Comment on above: Performed By: #### L 3130.0010, L3100.3425, L501.9520, L500.4050, L504.2610, L100.0100, L506.0400 #### [facility] [address] [place], [address] Monocytes/100 WBC (Bld) 4.5 % Normal 0-10 [facility] Comment on above: Performed By: #### L 3130.0010, L3100.3425, L501.9520, L500.4050, L504.2610, L100.0100, L506.0400 #### [facility] [address] [place], [address] Neutrophils/100 WBC (Bld) 68.2 % Normal 47-70 [facility] Comment on above: Performed By: #### L 3130.0010, L3100.3425, L501.9520, L500.4050, L504.2610, L100.0100, L506.0400 #### [facility] [address] [place], [address] Nucleated RBC (Bld) [#/Vol] 0 10*3/uL Normal 0-5 [facility] Comment on above: Performed By: #### L 3130.0010, L3100.3425, L501.9520, L500.4050, L504.2610, L100.0100, L506.0400 #### [facility] [address], [address] Platelet mean volume (Bld) [Entitic vol] 9.4 fL Normal 6.2-12.0 [facility] Comment on above: Performed By: #### L 3130.0010, L3100.3425, L501.9520, L500.4050, L504.2610, L100.0100, L506.0400 #### [facility] [address] [place], [address] Platelets (Bld) [#/Vol] 335 10*3/uL Normal 150-450 [facility] Comment on above: Performed By: #### L 3130.0010, L3100.3425, L501.9520, L500.4050, L504.2610, L100.0100, L506.0400 #### [facility] [address] [place], [address] RBC (Bld) [#/Vol] 3.94 10*6/uL Low 4.2-5.4 [facility] Comment on above: Performed By: #### L 3130.0010, L3100.3425, L501.9520, L500.4050, L504.2610, L100.0100, L506.0400 #### [facility] [address] [place], [address] RDW SD 53.1 fl High 35.1-43.9 [facility] Comment on above: Performed By: #### L 3130.0010, L3100.3425, L501.9520, L500.4050, L504.2610, L100.0100, L506.0400 #### [facility] [address] [place], [address] WBC (Bld) [#/Vol] 9.1 10*3/uL Normal 4.4-11.0 [facility] Comment on above: Performed By: #### L 3130.0010, L3100.3425, L501.9520, L500.4050, L504.2610, L100.0100, L506.0400 #### [facility] [address] [place], [address] Carbon dioxide, total [Moles /volume] in Central venous bloodOrdered By: Jose Ramon Mckenzie on 09-29-2024 CO2 [Moles/Vol] 26.5 mmol/L 21.0-32.0 [facility] Chloride assayOrdered By: Lilly Mckenzie on 09-29-2024 Chloride [Moles/Vol] 100 mmol/L 98-108 [facility] Comprehensive Metabolic Prof ilon 09-29-2024 Albumin [Mass/Vol] 4.2 g/dL Normal 3.4-4.8 [facility] Comment on above: Performed By: #### L 3130.0010, L3100.3425, L501.9520, L500.4050, L504.2610, L100.0100, L506.0400 #### [facility] [address] [place], [address] Albumin/Globulin [Mass ratio] 1.4 {ratio} Normal 0.9-2.4 [facility] Comment on above: Performed By: #### L 3130.0010, L3100.3425, L501.9520, L500.4050, L504.2610, L100.0100, L506.0400 #### [facility] [address] [place], [address] ALK PHOS 65 U/L Normal 35-104 [facility] Comment on above: Performed By: #### L 3130.0010, L3100.3425, L501.9520, L500.4050, L504.2610, L100.0100, L506.0400 #### [facility] [address] [place], [address] ALT [Catalytic activity/Vol] 22 U/L Normal <=34 [facility] Comment on above: Performed By: #### L 3130.0010, L3100.3425, L501.9520, L500.4050, L504.2610, L100.0100, L506.0400 #### [facility] [address] [place], [address] AST [Catalytic activity/Vol] 22 U/L Normal <=31 [facility] Comment on above: Performed By: #### L 3130.0010, L3100.3425, L501.9520, L500.4050, L504.2610, L100.0100, L506.0400 #### [facility] [address] [place], [address] Bilirubin [Mass/Vol] 0.32 mg/dL Normal 0.00-1.30 [facility] Comment on above: Performed By: #### L 3130.0010, L3100.3425, L501.9520, L500.4050, L504.2610, L100.0100, L506.0400 #### [facility] [address] [place], [address] BUN/CRE 16.0 RATIO Normal 10-20 [facility] Comment on above: Performed By: #### L 3130.0010, L3100.3425, L501.9520, L500.4050, L504.2610, L100.0100, L506.0400 #### [facility] [address] [place], [address] Calcium [Mass/Vol] 9.5 mg/dL Normal 7.6-11.0 [facility] Comment on above: Performed By: #### L 3130.0010, L3100.3425, L501.9520, L500.4050, L504.2610, L100.0100, L506.0400 #### [facility] [address] [place], [address] Chloride [Moles/Vol] 100 mmol/L Normal 98-108 [facility] Comment on above: Performed By: #### L 3130.0010, L3100.3425, L501.9520, L500.4050, L504.2610, L100.0100, L506.0400 #### [facility] [address] [place], [address] CO2 [Moles/Vol] 26.5 mmol/L Normal 21.0-32.0 [facility] Comment on above: Performed By: #### L 3130.0010, L3100.3425, L501.9520, L500.4050, L504.2610, L100.0100, L506.0400 #### [facility] [address] [place], [address] Creatinine [Mass/Vol] 0.93 mg/dL Normal 0.70-1.20 [facility] Comment on above: Performed By: #### L 3130.0010, L3100.3425, L501.9520, L500.4050, L504.2610, L100.0100, L506.0400 #### [facility] [address] [place], [address] ECRCL 72.90 ml/min Normal 50-250 [facility] Comment on above: Performed By: #### L 3130.0010, L3100.3425, L501.9520, L500.4050, L504.2610, L100.0100, L506.0400 #### [facility] [address] [place], [address] GAP 13 Normal 5-15 [facility] Comment on above: Performed By: #### L 3130.0010, L3100.3425, L501.9520, L500.4050, L504.2610, L100.0100, L506.0400 #### [facility] [address] [place], [address] GFR/1.73 sq M.predicted among non-blacks MDRD (S/P/Bld) [Vol rate/Area] 68 mL/min/{1.73_m2} Normal >60 [facility] Comment on above: Result Comment: mL/m in/1.73m2 CKD-EPI Creatinine Equation (2020) Performed By: #### L 3130.0010, L3100.3425, L501.9520, L500.4050, L504.2610, L100.0100, L506.0400 #### [facility] [address] [place], [address] Globulin (S) [Mass/Vol] 3.0 g/dL Normal 2.2-4.2 [facility] Comment on above: Performed By: #### L 3130.0010, L3100.3425, L501.9520, L500.4050, L504.2610, L100.0100, L506.0400 #### [facility] [address] [place], [address] Glucose [Mass/Vol] 138 mg/dL High 70-99 [facility] Comment on above: Performed By: #### L 3130.0010, L3100.3425, L501.9520, L500.4050, L504.2610, L100.0100, L506.0400 #### [facility] [address] [place], [address] Potassium [Moles/Vol] 4.0 mmol/L Normal 3.3-5.1 [facility] Comment on above: Performed By: #### L 3130.0010, L3100.3425, L501.9520, L500.4050, L504.2610, L100.0100, L506.0400 #### [facility] [address] [place], [address] Sodium [Moles/Vol] 139 mmol/L Normal 133-145 [facility] Comment on above: Performed By: #### L 3130.0010, L3100.3425, L501.9520, L500.4050, L504.2610, L100.0100, L506.0400 #### [facility] [address] [place], [address] T PROT 7.2 g/dL Normal 5.9-8.4 [facility] Comment on above: Performed By: #### L 3130.0010, L3100.3425, L501.9520, L500.4050, L504.2610, L100.0100, L506.0400 #### [facility] [address] [place], [address] Urea nitrogen [Mass/Vol] 15 mg/dL Normal 4-19 [facility] Comment on above: Performed By: #### L 3130.0010, L3100.3425, L501.9520, L500.4050, L504.2610, L100.0100, L506.0400 #### [facility] [address] [place], [address] Eosinophil percentageOrdered By: Jose Ramon Mckenzie on 09-29-2024 Eosinophils/100 WBC (Bld) 1.4 % 0-5 [facility] Erythrocyte distribution wid th ratioOrdered By: Jose Ramon Mckenzie on 09-29-2024 Erythrocyte distribution width (RBC) [Ratio] 15.4 % High 11.6-14.6 [facility] Erythrocyte distribution wid th standard deviationOrdered By: Jose Ramon Mckenzie on 09-29-2024 Erythrocyte distribution width (RBC) [Entitic vol] 53.1 fL High 35.1-43.9 [facility] Erythrocyte distribution width (RBC) [Ratio] 53.1 fl High 35.1-43.9 [facility] Estimation of creatinine lillian aranceOrdered By: Jose Ramon Mckenzie on 09-29-2024 Estimated Creatinine Clearance Calc 72.90 ml/min 50-250 [facility] GFR/1.73 sq M.predicted [place] g non-blacks MDRD (S/P/Bld) [Vol rate/Area]Ordered By: Jose Ramon Mckenzie on 09-29-2024 Estimated GFR (MDRD) Non-Af Amer 68 >60 [facility] Comment on above: mL/min/1.73m2 CKD-EP I Creatinine Equation (2020) Gamma globulin Elph [Mass/Vo l]Ordered By: Jose Ramon Mckenzie on 09-29-2024 Gamma Globulins (OVIDIO) 1.1 g/dL 0.4-1.8 [facility] Glomerular filtration rate ( GFR) estimation/1.73 sq m using serum, plasma, or whole bOrdered By: Jose Ramon Mckenzie on 09-29-2024 GFR/1.73 sq M.predicted among non-blacks MDRD (S/P/Bld) [Vol rate/Area] 68 mL/min/{1.73_m2} >60 [facility] Comment on above: mL/min/1.73m2 CKD-EP I Creatinine Equation (2020) Hematocrit Auto (Bld) [Volum e fraction]Ordered By: Jose Ramon Mckenzie on 09-29-2024 Hematocrit (Bld) [Volume fraction] 37.3 % 37-47 [facility] Hemoglobin measurementOrdere d By: Jose Ramon Mckenzie on 09-29-2024 Hemoglobin (Bld) [Mass/Vol] 12.2 g/dL 12.0-15. 0 [facility] IgA [Mass/Vol]Ordered By: Lilly Grove on 09-29-2024 Immunoglobulin A 158 mg/dL 87-352 [facility] IgG [Mass/Vol]Ordered By: Lilly [place] on 09-29-2024 Immunoglobulin G 1030 mg/dL [phone] [facility] Immature granulocytes/100 WB C Auto (Bld)Ordered By: Jose Ramon Mckenzie on 09-29-2024 Immature granulocytes/100 WBC (Bld) 0.400 % 0.0-0.9 [facility] Comment on above: IG% - Immature Granu locytes (promyelocytes, myelocytes and metamyelocytes) > 1% indicates that a LEFT SHIFT is Present. Immunoglobulin M measurement Ordered By: Jose Ramon Mckenzie on 09-29-2024 Immunoglobulin M 95 mg/dL 26-217 [facility] Immunoglobulin light chains. kappa [Mass/Vol]Ordered By: Jose Ramon Mckenzie on 09-29-2024 Free [place] Light Chains, Quant 33.6 mg/L High 3.3-19.4 [facility] Immunoglobulin light chains. kappa/Immunoglobulin light chains.lambda (S) [Mass ratio]Ordered By: Jose Ramon Mckenzie on 09-29-2024 Free [place]/Lambda Light Chain Ratio 1.23 0.26-1.65 [facility] Comment on above: Performed at: [address] [id number] Director: Herb Kincaid PhD, Phone: [phone] Interpretation IEP [Interp]O rdered By: Jose Ramon Mckenzie on 09-29-2024 Immunofixation Screen Comment: . [facility] Comment on above: Presence of monoclon al protein is unclear at this time. Suggestrepeat in 3 to 6 months if clinically indicated. Interpretation of serum or p lasma protein pattern by immunofixation (narrative resultOrdered By: Jose Ramon Mckenzie on 09-29-2024 Protein Fractions Immunofixation Arnav [Interp] Comment: g/dL Not Observed [facility] Comment on above: SPE shows an asymmet rical gamma. LDHon 09-29-2024 LDH 167 U/L Normal 84-246 [facility] Comment on above: Order Comment: 1 Performed By: #### L 3130.0010, L3100.3425, L501.9520, L500.4050, L504.2610, L100.0100, L506.0400 #### [facility] [address] [place], [address] Laboratory - Chemistry and C hemistry - challengeOrdered By: Jose Ramon Mckenzie on 09-29-2024 AST [Catalytic activity/Vol] 22 U/L <32 [facility] Lactate dehydrogenase (LDH) measurementOrdered By: Jose Ramon Mckenzie on 09-29-2024 LDH [Catalytic activity/Vol] 167 U/L 84-246 [facility] Lambda free light chain jatin urementOrdered By: Jose Ramon Mckenzie on 09-29-2024 Free Lambda Light Chains, Quant 27.4 mg/L High 5.7-26.3 [facility] Lymphocytes Auto (Unsp spec) [#/Vol]Ordered By: Jose Ramon Mckenzie on 09-29-2024 Lymphocytes (Bld) [#/Vol] 2.28 10*3/uL 0.83-4.5 1 [facility] Lymphocytes/100 WBC Auto (Un sp spec)Ordered By: Jose Ramon Mckenzie on 09-29-2024 Lymphocytes/100 WBC (Bld) 25.0 % 19-41 [facility] MCV (mean corpuscular volume ) determinationOrdered By: Jose Ramon Mckenzie on 09-29-2024 MCV (RBC) [Entitic vol] 94.7 fL 81-99 [facility] Mean corpuscular hemoglobin (MCH) determinationOrdered By: Jose Ramon Mckenzie on 09-29-2024 MCH (RBC) [Entitic mass] 31.0 pg 27.0-32.0 [facility] Mean corpuscular hemoglobin concentration (MCHC) determinationOrdered By: Jose Ramon Mckenzie on 09-29-2024 MCHC (RBC) [Mass/Vol] 32.7 g/dL 32-36 [facility] Mean platelet volume determi nationOrdered By: Jose Ramon Mckenzie on 09-29-2024 Platelet mean volume (Bld) [Entitic vol] 9.4 fL 6.2-12.0 [facility] Monocyte percentageOrdered B y: Jose Ramon Mckenzie on 09-29-2024 Monocytes/100 WBC (Bld) 4.5 % 0-10 [facility] Neutrophil percentageOrdered By: Jose Ramon Mckenzie on 09-29-2024 Neutrophils/100 WBC (Bld) 68.2 % 47-70 [facility] No Panel InformationOrdered By: Jose Ramon Mckenzie on 09-29-2024 Addendum Document Comment . [facility] Comment on above: Protein electrophore sis scan will follow via computer,mail, or machine fastener delivery. Nucleated red blood cell per centageOrdered By: Joes Ramon Mckenzie on 09-29-2024 Nucleated RBC/100 WBC (Bld) [Ratio] 0 % 0-5 [facility] Platelet countOrdered By: Lilly Mckenzie on 09-29-2024 Platelets (Bld) [#/Vol] 335 10*3/uL 150-450 [facility] Potassium (Unsp spec) [Mass/ Vol]Ordered By: Jose Ramon Mckenzie on 09-29-2024 Potassium [Moles/Vol] 4.0 mmol/L 3.3-5.1 [facility] Potassium measurement (mass/ volume)Ordered By: Jose Ramon Mckenzie on 09-29-2024 Potassium (Unsp spec) [Mass/Vol] 4.0 mmol/L 3.3-5.1 [facility] Protein Fractions Immunofixa tion Arnav [Interp]Ordered By: Jose Ramon Mckenzie on 09-29-2024 M-Thomas (OVIDIO) Comment: g/dL Not Observed [facility] Comment on above: SPE shows an asymmet rical gamma. RBC Auto (Bld) [#/Vol]Ordere d By: Jose Ramon Mckenzie on 09-29-2024 RBC (Bld) [#/Vol] 3.94 10*6/uL Low 4.2-5.4 [facility] Serum albumin/globulin ratio Ordered By: Jose Ramon Mckenzie on 09-29-2024 Albumin/Globulin (OVIDIO) 1.0 0.7-1.7 [facility] Serum creatinine measurement (mass/volume)Ordered By: Jose Ramon Mckenzie on 09-29-2024 Creatinine [Mass/Vol] 0.93 mg/dL 0.70-1.20 [facility] Serum globulin measurement ( mass/volume)Ordered By: Jose Ramon Mckenzie on 09-29-2024 Globulin (S) [Mass/Vol] 3.6 g/dL 2.2-3.9 [facility] Serum glucose measurement (m ass/volume)Ordered By: Jose Ramon Mckenzie on 09-29-2024 Glucose [Mass/Vol] 138 mg/dL High 70-99 [facility] Serum immunoglobulin kappa l ight chains/immunoglobulin lambda light chains mass ratioOrdered By: Jose Ramon Mckenzie on 09-29-2024 Immunoglobulin light chains.kappa/Immunoglobulin light chains.lambda (S) [Mass ratio] 1.23 0.26-1.65 [facility] Comment on above: Performed at: [address] Director: Herb Kincaid PhD, Phone: [phone] Serum or plasma IgA measurem ent (mass/volume)Ordered By: Jose Ramon Mckenzie on 09-29-2024 IgA [Mass/Vol] 158 mg/dL 87-352 [facility] Serum or plasma IgG measurem ent (mass/volume)Ordered By: Jose Ramon Mckenzie on 09-29-2024 IgG [Mass/Vol] 1030 mg/dL [phone] [facility] Serum or plasma alanine reyes otransferase (ALT) measurementOrdered By: Jose Ramon Mckenzie on 09-29-2024 ALT [Catalytic activity/Vol] 22 U/L <35 [facility] Serum or plasma albumin jatin urement (mass/volume)Ordered By: Jose Ramon Mckenzie on 09-29-2024 Albumin [Mass/Vol] 4.2 g/dL 3.4-4.8 [facility] Serum or plasma albumin/glob ulin mass ratioOrdered By: Jose Ramon Mckenzie on 09-29-2024 Albumin/Globulin [Mass ratio] 1.4 {ratio} 0.9-2.4 [facility] Serum or plasma alkaline lana sphatase measurementOrdered By: Jose Ramon Mckenzie on 09-29-2024 ALP [Catalytic activity/Vol] 65 U/L 35-104 [facility] Serum or plasma alpha 1 glob ulin measurement by electrophoresis (mass/volume)Ordered By: Jose Ramon Mckenzie on 09-29-2024 Alpha 1 globulin Elph [Mass/Vol] 0.3 g/dL 0.0-0.4 [facility] Alpha 1 globulin Elph [Mass/Vol] 1.1 g/dL High 0.4-1.0 [facility] Serum or plasma beta globuli n measurement by electrophoresis (mass/volume)Ordered By: Jose Ramon Mckenzie on 09-29-2024 Beta globulin Elph [Mass/Vol] 1.2 g/dL 0.7-1.3 [facility] Serum or plasma calcium jatin urement (mass/volume)Ordered By: Jose Ramon Mckenzie on 09-29-2024 Calcium [Mass/Vol] 9.5 mg/dL 7.6-11.0 [facility] Serum or plasma gamma globul in measurement by electrophoresis (mass/volume)Ordered By: Jose Ramon Mckenzie on 09-29-2024 Gamma globulin Elph [Mass/Vol] 1.1 g/dL 0.4-1.8 [facility] Serum or plasma immunoelectr ophoresis interpretation (nominal result)Ordered By: Jose Ramon Mckenzie on 09-29-2024 Interpretation IEP [Interp] Comment: . [facility] Comment on above: Presence of monoclon al protein is unclear at this time. Suggestrepeat in 3 to 6 months if clinically indicated. Serum or plasma immunoglobul in kappa light chains measurement (mass/volume)Ordered By: Jose Ramon Mckenzie on 09-29-2024 Immunoglobulin light chains.kappa [Mass/Vol] 33.6 mg/L High 3.3-19.4 [facility] Serum or plasma protein jatin urement (mass/volume)Ordered By: Jose Ramon Mckenzie on 09-29-2024 Protein [Mass/Vol] 6.9 g/dL 6.0-8.5 [facility] Serum or plasma urea nitroge n measurement (mass/volume)Ordered By: Jose Ramon Mckenzie on 09-29-2024 Urea nitrogen [Mass/Vol] 15 mg/dL 4-19 [facility] Sodium levelOrdered By: Pancho Mckenzie on 09-29-2024 Sodium [Moles/Vol] 139 mmol/L 133-145 [facility] T4 Free Directon 09-29-2024 T4 FREE DIRECT 1.00 ng/dL Normal 0.76-1.46 [facility] Comment on above: Performed By: #### L 3130.0010, L3100.3425, L501.9520, L500.4050, L504.2610, L100.0100, L506.0400 #### [facility] [address] [place], [address] T4 freeOrdered By: Jose Ramon allan on 09-29-2024 Free T4 [Mass/Vol] 1.00 ng/dL 0.76-1.46 [facility] TSH DL <= 0.005 mIU/L QnOrde red By: Jose Ramon Mckenzie on 09-29-2024 Thyroid Stimulating Hormone (TSH) 0.814 uIU/mL 0.300-4.200 [facility] TSH Qn 0.814 uIU/mL 0.300-4.200 [facility] Thyroid Stim Hormone (TSH)on 09-29-2024 TSH 0.814 uIU/mL Normal 0.300-4.200 [facility] Comment on above: Performed By: #### L 3130.0010, L3100.3425, L501.9520, L500.4050, L504.2610, L100.0100, L506.0400 #### [facility] [address] [place], [address] Total proteinOrdered By: Eugene Mckenzie on 09-29-2024 Protein [Mass/Vol] 7.2 g/dL 5.9-8.4 [facility] White blood cell (WBC) count Ordered By: Jose Ramon Mckenzie on 09-29-2024 WBC (Bld) [#/Vol] 9.1 10*3/uL 4.4-11.0 Robyn ulloa [facility] Office Visit Reporton 2024 Office Visit Report [facility] [address] [address] OFFICE VISIT Date of Service: 09/02/24 MR#: [id number] Acct: [id number] Patient: ART BLUE Rep #: [id number] Provider: Dr. Gilberto maynard MD Age/Sex: 68/F Location: [facility] Status: Signed Intake Vital Signs 07/31/24 13:30 09/02/24 11:00 Height 5 ft 5 in 5 ft 5 in Weight: 243 lb BMI 40.4 BP 114/50 L Blood Pressure Location Lt brachial Position Sitting Respiration 17 Pulse 107 H Pulse Source Monitor Temp 97.8 F Temp Source Temporal Pulse Oximetry (%) 96 Oxygen Delivery Method room air Intake Visit Reasons: B12 inject Chief Complaint: Allergies amoxicillin Allergy (Mild, Verified 07/31/24 13:34) rash atorvastatin Adverse Reaction (Mild, Verified 07/31/24 13:34) myalgiias levofloxacin (From Levaquin) Adverse Reaction (Unknown, Verified 07/31/24 13:34) Nausea Have you fallen in the past year?: Yes Office Meds cyanocobalamin (vitamin B-12) 1,000 mcg/mL injection solution Performing Provider: Gilberto Rasmussen MD Performing Location: [facility] Administered by: Chinyere Mandel on 09/02/24 11:02 Dose Route Admin Location Dispensed Lot Number Expiration Date [facility] Man ufacturer 1,500 mcg IM left deltoid 1.5 mL [id number] 10/20/26 59036-980-22 SANDOVAL HENSON Comments: The patient presents for B12 injection for treatment of fatigue. She has fatigue. Her last B12 injection was of benefit for fatigue. The patient is awake and alert. B12 1500mcg IM was administered today. Assessment and Plan Assessment and Plan (1) Fatigue: Status: Chronic Qualifiers: Fatigue type: chronic, unspecified Qualified Code(s): R53.82 - Chronic fatigue, unspecified Orders: Orders Vitamin B12 Today R53.82 - Chronic fatigue, unspecified Clinical Quality Measures Falls Risk Screening/Assistive Devices Have you fallen in the past year?: Yes 09/02/241824 Date Gilberto Steward Signature: Date (if applicable) CC: Normal [facility] Absolute lymphocyte countOrd ered By: Doris Yip on 08-28-2024 Lymphocytes Auto (Unsp spec) [#/Vol] 2.19 10*3/uL 0.83-4.51 [facility] Absolute neutrophil countOrd ered By: Doris Yip on 08-28-2024 Neutrophils (Bld) [#/Vol] 5.8 10*3/uL 2.0-7.7 [facility] Albumin to globulin ratioOrd ered By: Doris Yip on 08-28-2024 Albumin/Globulin [Mass ratio] 0.8 {ratio} Low 0.9-2.4 [facility] Automated lymphocyte count a s percentage of total leukocytesOrdered By: Doris Yip on 08-28-2024 Lymphocytes/100 WBC Auto (Unsp spec) 25.2 % 19-41 [facility] Basophil percentageOrdered B y: Doris Yip on 08-28-2024 Basophils/100 WBC (Bld) 0.6 % 0-1 [facility] Bilirubin, totalOrdered By: Doris Yip on 08-28-2024 Bilirubin [Mass/Vol] 0.30 mg/dL 0.20-1.00 [facility] Comment on above: For patients on eltr ombopag therapy, use of Dim[place] TBIL is not recommended. Blood urea nitrogen (BUN)/cr eatinine ratioOrdered By: Doris Yip on 08-28-2024 Urea nitrogen/Creatinine [Mass ratio] 13.6 mg/mg 10-20 [facility] CBC W/Diff, Automatedon Absolute Lymph 2.19 X10 3/uL Normal 0.83-4.51 [facility] Comment on above: Performed By: #### L 500.4050, L100.0100 #### [facility] [address] [place], [address] Absolute Neut 5.8 X10 3/uL Normal 2.0-7.7 [facility] Comment on above: Performed By: #### L 500.4050, L100.0100 #### [facility] [address] [place], [address] Basophils/100 WBC (Bld) 0.6 % Normal 0-1 [facility] Comment on above: Performed By: #### L 500.4050, L100.0100 #### [facility] [address] [place], [address] Eosinophils/100 WBC (Bld) 1.7 % Normal 0-5 [facility] Comment on above: Performed By: #### L 500.4050, L100.0100 #### [facility] [address] [place], [address] Erythrocyte distribution width (RBC) [Ratio] 15.1 % High 11.6-14.6 [facility] Comment on above: Performed By: #### L 500.4050, L100.0100 #### [facility] [address] [place], [address] Hematocrit (Bld) [Volume fraction] 36.8 % Low 37-47 [facility] Comment on above: Performed By: #### L 500.4050, L100.0100 #### [facility] [address] [place], [address] Hemoglobin (Bld) [Mass/Vol] 11.9 g/dL Low 12.0-15. 0 [facility] Comment on above: Performed By: #### L 500.4050, L100.0100 #### [facility] [address] [place], [address] IG% 0.600 Normal 0.0-0.9 [facility] Comment on above: Result Comment: IG% - Immature Granulocytes (promyelocytes, myelocytes and metamyelocytes) > 1% indicates that a LEFT SHIFT is Present. Performed By: #### L 500.4050, L100.0100 #### [facility] [address] [place], [address] Lymphocytes/100 WBC (Bld) 25.2 % Normal 19-41 [facility] Comment on above: Performed By: #### L 500.4050, L100.0100 #### [facility] [address] [place], [address] MCH (RBC) [Entitic mass] 31.1 pg Normal 27.0-32.0 [facility] Comment on above: Performed By: #### L 500.4050, L100.0100 #### [facility] [address] [place], [address] MCHC (RBC) [Mass/Vol] 32.3 g/dL Normal 32-36 [facility] Comment on above: Performed By: #### L 500.4050, L100.0100 #### [facility] [address] [place], [address] MCV (RBC) [Entitic vol] 96.1 fL Normal 81-99 [facility] Comment on above: Performed By: #### L 500.4050, L100.0100 #### [facility] [address] [place], [address] Monocytes/100 WBC (Bld) 4.6 % Normal 0-10 [facility] Comment on above: Performed By: #### L 500.4050, L100.0100 #### [facility] [address] [place], [address] Neutrophils/100 WBC (Bld) 67.3 % Normal 47-70 [facility] Comment on above: Performed By: #### L 500.4050, L100.0100 #### [facility] [address] [place], [address] Nucleated RBC (Bld) [#/Vol] 0 10*3/uL Normal 0-5 [facility] Comment on above: Performed By: #### L 500.4050, L100.0100 #### [facility] [address] [place], [address] Platelet mean volume (Bld) [Entitic vol] 10.3 fL Normal 6.2-12.0 [facility] Comment on above: Performed By: #### L 500.4050, L100.0100 #### [facility] [address] [place], [address] Platelets (Bld) [#/Vol] 329 10*3/uL Normal 150-450 [facility] Comment on above: Performed By: #### L 500.4050, L100.0100 #### [facility] [address] [place], [address] RBC (Bld) [#/Vol] 3.83 10*6/uL Low 4.2-5.4 [facility] Comment on above: Performed By: #### L 500.4050, L100.0100 #### [facility] [address] [place], [address] RDW SD 51.8 fl High 35.1-43.9 [facility] Comment on above: Performed By: #### L 500.4050, L100.0100 #### [facility] [address] [place], [address] WBC (Bld) [#/Vol] 8.7 10*3/uL Normal 4.4-11.0 [facility] Comment on above: Performed By: #### L 500.4050, L100.0100 #### [facility] [address] [place], [address] Carbon dioxide measurementOr dered By: Doris Yip on 08-28-2024 CO2 [Moles/Vol] 26.0 mmol/L 21.0-32.0 [facility] Chloride measurementOrdered By: Doris Yip on 08-28-2024 Chloride [Moles/Vol] 102 mmol/L 98-107 [facility] Comprehensive Metabolic Prof ilon 08-28-2024 Albumin [Mass/Vol] 3.4 g/dL Normal 3.2-5.0 [facility] Comment on above: Performed By: #### L 500.4050, L100.0100 #### [facility] [address] [place], [address] Albumin/Globulin [Mass ratio] 0.8 {ratio} Low 0.9-2.4 [facility] Comment on above: Performed By: #### L 500.4050, L100.0100 #### [facility] [address] [place], [address] ALK P 62 U/L Normal 45-117 [facility] Comment on above: Performed By: #### L 500.4050, L100.0100 #### [facility] [address] [place], [address] ALT [Catalytic activity/Vol] 30 U/L Normal 13-56 [facility] Comment on above: Performed By: #### L 500.4050, L100.0100 #### [facility] [address] [place], [address] AST [Catalytic activity/Vol] 18 U/L Normal 15-37 [facility] Comment on above: Performed By: #### L 500.4050, L100.0100 #### [facility] [address] [place], [address] Bilirubin [Mass/Vol] 0.30 mg/dL Normal 0.20-1.00 [facility] Comment on above: Result Comment: For patients on eltrombopag therapy, use of Dim[place] TBIL is not recommended. Performed By: #### L 500.4050, L100.0100 #### [facility] [address] [place], [address] BUN/CRE 13.6 RATIO Normal 10-20 [facility] Comment on above: Performed By: #### L 500.4050, L100.0100 #### [facility] [address] [place], [address] CA,Total 9.1 mg/dL Normal 8.5-10.1 [facility] Comment on above: Performed By: #### L 500.4050, L100.0100 #### [facility] [address] [place], [address] Chloride [Moles/Vol] 102 mmol/L Normal 98-107 [facility] Comment on above: Performed By: #### L 500.4050, L100.0100 #### [facility] [address] [place], [address] CO2 [Moles/Vol] 26.0 mmol/L Normal 21.0-32.0 [facility] Comment on above: Performed By: #### L 500.4050, L100.0100 #### [facility] [address] [place], [address] Creatinine [Mass/Vol] 1.03 mg/dL High 0.55-1.02 [facility] Comment on above: Result Comment: The validity of the calculated GFR GFRAA in patients over 70 years has not been determined. Clinical correlation is essential. Performed By: #### L 500.4050, L100.0100 #### [facility] [address] [place], [address] EST GFR - AA 69 mL/min Normal >60 [facility] Comment on above: Result Comment: Afri can [place] GFR Calc Performed By: #### L 500.4050, L100.0100 #### [facility] [address] [place], [address] GAP 8 Normal 5-15 [facility] Comment on above: Performed By: #### L 500.4050, L100.0100 #### [facility] [address] [place], [address] GFR/1.73 sq M.predicted among non-blacks MDRD (S/P/Bld) [Vol rate/Area] 57 mL/min/{1.73_m2} Low >60 [facility] Comment on above: Result Comment: Non- GFR Calc Performed By: #### L 500.4050, L100.0100 #### [facility] [address] [place], [address] Globulin (S) [Mass/Vol] 4.0 g/dL Normal 2.2-4.2 [facility] Comment on above: Performed By: #### L 500.4050, L100.0100 #### [facility] [address] [place], [address] Glucose [Mass/Vol] 180 mg/dL High 74-106 [facility] Comment on above: Result Comment: Fast ing Glucose result greater than or equal to 126 mg/dL suggests DIABETES MELLITUS per A.D.A. criteria. Performed By: #### L 500.4050, L100.0100 #### [facility] [address] [place], [address] Potassium [Moles/Vol] 4.2 mmol/L Normal 3.5-5.1 [facility] Comment on above: Performed By: #### L 500.4050, L100.0100 #### [facility] [address] [place], [address] Sodium [Moles/Vol] 136 mmol/L Normal 136-145 [facility] Comment on above: Performed By: #### L 500.4050, L100.0100 #### [facility] [address] [place], [address] T PROT 7.4 g/dL Normal 6.4-8.2 [facility] Comment on above: Performed By: #### L 500.4050, L100.0100 #### [facility] [address] [place], [address] Urea nitrogen [Mass/Vol] 14 mg/dL Normal 7-18 [facility] Comment on above: Performed By: #### L 500.4050, L100.0100 #### [facility] [address] [place], [address] Eosinophil percentageOrdered By: Doris Yip on 08-28-2024 Eosinophils/100 WBC (Bld) 1.7 % 0-5 [facility] Erythrocyte distribution wid th ratioOrdered By: Doris Yip on 08-28-2024 Erythrocyte distribution width (RBC) [Ratio] 15.1 % High 11.6-14.6 [facility] Erythrocyte distribution wid th standard deviationOrdered By: Doris Yip on 08-28-2024 Erythrocyte distribution width (RBC) [Entitic vol] 51.8 fL High 35.1-43.9 [facility] Erythrocyte distribution width (RBC) [Ratio] 51.8 fl High 35.1-43.9 [facility] Estimated glomerular filtrat ion rate (GFR) AmericanOrdered By: Doris Yip on 08-28-2024 Estimated GFR (MDRD) Amer 69 mL/min >60 [facility] Comment on above: GFR Calc Glomerular filtration rate ( GFR) estimationOrdered By: Doris Yip on 08-28-2024 Estimated GFR (MDRD) Non-Af Amer 57 mL/min Low >60 [facility] Comment on above: Non- GFR Calc GFR/1.73 sq M.predicted among non-blacks MDRD (S/P/Bld) [Vol rate/Area] 57 mL/min/{1.73_m2} Low >60 [facility] Comment on above: Non- GFR Calc Glucose measurementOrdered B y: Doris Yip on 08-28-2024 Glucose [Mass/Vol] 180 mg/dL High 74-106 [facility] Comment on above: Fasting Glucose resu lt greater than or equal to 126 mg/dL suggests DIABETES MELLITUS per A.D.A. criteria. Hematocrit Auto (Bld) [Volum e fraction]Ordered By: Doris Yip on 08-28-2024 Hematocrit (Bld) [Volume fraction] 36.8 % Low 37-47 [facility] Hemoglobin measurementOrdere d By: Doris Yip on 08-28-2024 Hemoglobin (Bld) [Mass/Vol] 11.9 g/dL Low 12.0-15. 0 [facility] Immature granulocytes/100 WB C Auto (Bld)Ordered By: Doris Yip on 08-28-2024 Immature granulocytes/100 WBC (Bld) 0.600 % 0.0-0.9 [facility] Comment on above: IG% - Immature Granu locytes (promyelocytes, myelocytes and metamyelocytes) > 1% indicates that a LEFT SHIFT is Present. Laboratory - Chemistry and C hemistry - challengeOrdered By: Doris Yip on 08-28-2024 AST [Catalytic activity/Vol] 18 U/L 15-37 [facility] Lymphocytes Auto (Unsp spec) [#/Vol]Ordered By: Doris Yip on 08-28-2024 Lymphocytes (Bld) [#/Vol] 2.19 10*3/uL 0.83-4.5 1 [facility] Lymphocytes/100 WBC Auto (Un sp spec)Ordered By: Doris Yip on 08-28-2024 Lymphocytes/100 WBC (Bld) 25.2 % 19-41 [facility] MCV (mean corpuscular volume ) determinationOrdered By: Doris Yip on 08-28-2024 MCV (RBC) [Entitic vol] 96.1 fL 81-99 [facility] Mean corpuscular hemoglobin (MCH) determinationOrdered By: Doris Yip on 08-28-2024 MCH (RBC) [Entitic mass] 31.1 pg 27.0-32.0 [facility] Mean corpuscular hemoglobin concentration (MCHC) determinationOrdered By: Doris Yip on 08-28-2024 MCHC (RBC) [Mass/Vol] 32.3 g/dL 32-36 [facility] Mean platelet volume determi nationOrdered By: Doris Yip on 08-28-2024 Platelet mean volume (Bld) [Entitic vol] 10.3 fL 6.2-12.0 [facility] Monocyte percentageOrdered B y: Doris Yip on 08-28-2024 Monocytes/100 WBC (Bld) 4.6 % 0-10 [facility] Neutrophil percentageOrdered By: Doris Yip on 08-28-2024 Neutrophils/100 WBC (Bld) 67.3 % 47-70 [facility] Nucleated red blood cell per centageOrdered By: Doris Yip on 08-28-2024 Nucleated RBC/100 WBC (Bld) [Ratio] 0 % 0-5 [facility] Platelet countOrdered By: Ariana Yip on 08-28-2024 Platelets (Bld) [#/Vol] 329 10*3/uL 150-450 [facility] Potassium measurementOrdered By: Doris Yip on 08-28-2024 Potassium [Moles/Vol] 4.2 mmol/L 3.5-5.1 [facility] RBC Auto (Bld) [#/Vol]Ordere d By: Doris Yip on 08-28-2024 RBC (Bld) [#/Vol] 3.83 10*6/uL Low 4.2-5.4 [facility] Serum anion gap measurementO rdered By: Doris Yip on 08-28-2024 Anion gap [Moles/Vol] 8 mmol/L 5-15 [facility] Serum globulin measurementOr dered By: Doris Yip on 08-28-2024 Globulin (S) [Mass/Vol] 4.0 g/dL 2.2-4.2 [facility] Serum or plasma alanine reyes otransferase (ALT) measurementOrdered By: Doris Yip on 08-28-2024 ALT [Catalytic activity/Vol] 30 U/L 13-56 [facility] Serum or plasma albumin jatin urement (mass/volume)Ordered By: Doris Yip on 08-28-2024 Albumin [Mass/Vol] 3.4 g/dL 3.2-5.0 [facility] Serum or plasma alkaline lana sphatase measurementOrdered By: Doris Yip on 08-28-2024 ALP [Catalytic activity/Vol] 62 U/L 45-117 [facility] Serum or plasma calcium jatin urement (mass/volume)Ordered By: Doris Yip on 08-28-2024 Calcium [Mass/Vol] 9.1 mg/dL 8.5-10.1 [facility] Serum or plasma creatinine m easurement (mass/volume)Ordered By: Doris Yip on 08-28-2024 Creatinine [Mass/Vol] 1.03 mg/dL High 0.55-1.02 [facility] Comment on above: The validity of the calculated GFR & GFRAA in patients over 70 years has not been determined. Clinical correlation is essential. Serum or plasma urea nitroge n measurement (mass/volume)Ordered By: Doris Yip on 08-28-2024 Urea nitrogen [Mass/Vol] 14 mg/dL 7-18 [facility] Sodium levelOrdered By: Katherine Yip on 08-28-2024 Sodium [Moles/Vol] 136 mmol/L 136-145 [facility] Total proteinOrdered By: Liyah Yip on 08-28-2024 Protein [Mass/Vol] 7.4 g/dL 6.4-8.2 [facility] White blood cell (WBC) count Ordered By: Doris Yip on 08-28-2024 WBC (Bld) [#/Vol] 8.7 10*3/uL 4.4-11.0 [facility] Dexa Bone Density Studyon Dexa Bone Density Study [facility] Imaging Services [address] [place] [id number] Dexa Bone Density Study MR#: [id number] Acct: [id number] Name: ART BLUE Rep #: [id number] : 1955 F 68 From: Karlo moran MD PCP: Dr. Meir Zepeda MD Status: [facility] Study: Dexa Bone Density Study Date of Exam: 08/04/24 Exam# [id number] Ordering Dr: Josefa Rocha NP [employer] [id number] STUDY: DUAL ENERGY X-RAY ABSORPTIOMETRY / DXA REASON FOR EXAM: Female, 68 years old. V76.12ScreeningBONE DENSITY REASON FOR EXAM TECHNIQUE: Bone Mineral Density (BMD) measurements of lumbar spine and bilateral hips were obtained. COMPARISON: Comparison is made with prior study April 13, 2022. FINDINGS: Lumbar Spine (L1-L4): g/cm2 (1.330) / T-score (2.1) / Z-score (4.1) Findings are suggestive of normal bone density with a low fracture risk. Left Femur Total: g/cm2 (1.069) / T-score (1.0) / Z-score (2.4) Left Femoral Neck: g/cm2 (0.882) / T-score (0.3) / Z-score (2.0) Right Femur Total: g/cm2 (1.070) / T-score (1.0) / Z-score (2.4) Right Femoral Neck: g/cm2 (0.881) / T-score (0.3) / Z-score (2.0) The T-Scores on the most recent prior examination were: Lumbar Spine (L1-L4): There has been improvement of bone density since the previous examination. Left Femur Total: which represents an improvement of 3.6%. Right Femur Total: which represents no significant change. . BD/Dexa Bone Density Study IMPRESSION: The patient is considered normal as outlined below according to World [employer] Organization (WHO) criteria with a low fracture risk. There has been improvement of bone density since the previous examination. Reference Information: The T-score is the number of standard deviations above or below the standard which is normal for young adults at their peak bone mineral density. The World Health Organization (WHO) interprets the T-scores as follows: Above -1 Normal bone density Between -1 and -2.5 Osteopenia Equal to / or below -2.5 Osteoporosis As a practical clinical guideline, osteopenia may be graded as follows: Mild -1 through -1.5 Moderate -1.6 through -2.0 Severe -2.1 through -2.4 The Z-score is the number of standard deviations above or below age-matched controls. A Z-score of less than -1.5 would be considered abnormal. References: 1. NIH Osteoporosis and Related Bone Diseases www osteo.org 2. International Society for Clinical Densitometry www iscd.org 3. National Osteoporosis Foundation www nof.org Electronically Signed: Karlo Portillo MD at 14:42 EST , CC: UTE Rocha; Dr. Meir Zepeda MD Tube Builder: Signed Normal [facility] Absolute neutrophil countOrd ered By: Meir Zepeda on 08-01-2024 Neutrophils (Bld) [#/Vol] 3.4 10*3/uL 2.0-7.7 [facility] Basophil percentageOrdered B y: Meir Zepeda on 08-01-2024 Basophils/100 WBC (Bld) 1.0 % 0-1 [facility] CBC W/Diff, Automatedon 07-23 Absolute Lymph 2.59 X10 3/uL Normal 0.83-4.51 [facility] Comment on above: Order Comment: Order Date: 08/01/24Order Info: 0184-1 - CBCD Performed By: #### L 100.0100, L503.0105, L503.6030, L501.9985 ####[facility] [address] [place], [address] Absolute Neut 3.4 X10 3/uL Normal 2.0-7.7 [facility] Comment on above: Order Comment: Order Date: 08/01/24Order Info: 0184-1 - CBCD Performed By: #### L 100.0100, L503.0105, L503.6030, L501.9985 ####[facility] [address] [place], [address] Basophils/100 WBC (Bld) 1.0 % Normal 0-1 [facility] Comment on above: Order Comment: Order Date: 08/01/24Order Info: 0184-1 - CBCD Performed By: #### L 100.0100, L503.0105, L503.6030, L501.9985 ####[facility] [address] [place], [address] Eosinophils/100 WBC (Bld) 2.2 % Normal 0-5 [facility] Comment on above: Order Comment: Order Date: 08/01/24Order Info: 0184-1 - CBCD Performed By: #### L 100.0100, L503.0105, L503.6030, L501.9985 ####[facility] [address] [place], [address] Erythrocyte distribution width (RBC) [Ratio] 14.5 % Normal 11.6-14.6 [facility] Comment on above: Order Comment: Order Date: 08/01/24Order Info: 0184-1 - CBCD Performed By: #### L 100.0100, L503.0105, L503.6030, L501.9985 ####[facility] [address] [place], [address] Hematocrit (Bld) [Volume fraction] 37.0 % Normal 37-47 [facility] Comment on above: Order Comment: Order Date: 08/01/24Order Info: 0184-1 - CBCD Performed By: #### L 100.0100, L503.0105, L503.6030, L501.9985 ####[facility] [address] [place], [address] Hemoglobin (Bld) [Mass/Vol] 12.2 g/dL Normal 12.0-15. 0 [facility] Comment on above: Order Comment: Order Date: 08/01/24Order Info: 0184-1 - CBCD Performed By: #### L 100.0100, L503.0105, L503.6030, L501.9985 ####[facility] [address] [place], [address] IG% 1.000 High 0.0-0.9 [facility] Comment on above: Order Comment: Order Date: 08/01/24Order Info: 0184-1 - CBCD Result Comment: IG% - Immature Granulocytes (promyelocytes, myelocytes and metamyelocytes) > 1% indicates that a LEFT SHIFT is Present. Performed By: #### L 100.0100, L503.0105, L503.6030, L501.9985 ####[facility] [address] [place], [address] Lymphocytes/100 WBC (Bld) 38.0 % Normal 19-41 [facility] Comment on above: Order Comment: Order Date: 08/01/24Order Info: 0184-1 - CBCD Performed By: #### L 100.0100, L503.0105, L503.6030, L501.9985 ####[facility] [address] [place], [address] MCH (RBC) [Entitic mass] 31.1 pg Normal 27.0-32.0 [facility] Comment on above: Order Comment: Order Date: 08/01/24Order Info: 0184-1 - CBCD Performed By: #### L 100.0100, L503.0105, L503.6030, L501.9985 ####[facility] [address] [place], [address] MCHC (RBC) [Mass/Vol] 33.0 g/dL Normal 32-36 [facility] Comment on above: Order Comment: Order Date: 08/01/24Order Info: 0184-1 - CBCD Performed By: #### L 100.0100, L503.0105, L503.6030, L501.9985 ####[facility] [address] [place], [address] MCV (RBC) [Entitic vol] 94.4 fL Normal 81-99 [facility] Comment on above: Order Comment: Order Date: 08/01/24Order Info: 0184-1 - CBCD Performed By: #### L 100.0100, L503.0105, L503.6030, L501.9985 ####[facility] [address] [place], [address] Monocytes/100 WBC (Bld) 7.5 % Normal 0-10 [facility] Comment on above: Order Comment: Order Date: 08/01/24Order Info: 0184-1 - CBCD Performed By: #### L 100.0100, L503.0105, L503.6030, L501.9985 ####[facility] [address] [place], [address] Neutrophils/100 WBC (Bld) 50.3 % Normal 47-70 [facility] Comment on above: Order Comment: Order Date: 08/01/24Order Info: 0184-1 - CBCD Performed By: #### L 100.0100, L503.0105, L503.6030, L501.9985 ####[facility] [address] [place], [address] Nucleated RBC (Bld) [#/Vol] 0 10*3/uL Normal 0-5 [facility] Comment on above: Order Comment: Order Date: 08/01/24Order Info: 0184-1 - CBCD Performed By: #### L 100.0100, L503.0105, L503.6030, L501.9985 ####[facility] [address] [place], [address] Platelet mean volume (Bld) [Entitic vol] 9.7 fL Normal 6.2-12.0 [facility] Comment on above: Order Comment: Order Date: 08/01/24Order Info: 0184-1 - CBCD Performed By: #### L 100.0100, L503.0105, L503.6030, L501.9985 ####[facility] [address] [place], [address] Platelets (Bld) [#/Vol] 382 10*3/uL Normal 150-450 [facility] Comment on above: Order Comment: Order Date: 08/01/24Order Info: 0184-1 - CBCD Performed By: #### L 100.0100, L503.0105, L503.6030, L501.9985 ####[facility] [address] [place], [address] RBC (Bld) [#/Vol] 3.92 10*6/uL Low 4.2-5.4 [facility] Comment on above: Order Comment: Order Date: 08/01/24Order Info: 0184-1 - CBCD Performed By: #### L 100.0100, L503.0105, L503.6030, L501.9985 ####[facility] [address] [place], [address] RDW SD 49.3 fl High 35.1-43.9 [facility] Comment on above: Order Comment: Order Date: 08/01/24Order Info: 0184-1 - CBCD Performed By: #### L 100.0100, L503.0105, L503.6030, L501.9985 ####[facility] [address] [place], [address] WBC (Bld) [#/Vol] 6.8 10*3/uL Normal 4.4-11.0 [facility] Comment on above: Order Comment: Order Date: 08/01/24Order Info: 0184-1 - CBCD Performed By: #### L 100.0100, L503.0105, L503.6030, L501.9985 ####[facility] [address] [place], [address] Eosinophil percentageOrdered By: Meir Zepeda on 08-01-2024 Eosinophils/100 WBC (Bld) 2.2 % 0-5 [facility] Erythrocyte distribution wid th ratioOrdered By: Meir Zepeda on 08-01-2024 Erythrocyte distribution width (RBC) [Ratio] 14.5 % 11.6-14.6 [facility] Erythrocyte distribution wid th standard deviationOrdered By: Meir Rachelle on 08-01-2024 Erythrocyte distribution width (RBC) [Entitic vol] 49.3 fL High 35.1-43.9 [facility] Hematocrit Auto (Bld) [Volum e fraction]Ordered By: Meir Rachelle on 08-01-2024 Hematocrit (Bld) [Volume fraction] 37.0 % 37-47 [facility] Hemoglobin A1con 08-01-2024 HbA1c (Bld) [Mass fraction] 7.2 % High 3.8-5.6 [facility] Comment on above: Order Comment: Order Date: 08/01/24Order Info: [id number] - A1C Result Comment: Norm al < 5.7 % Prediabetic 5.7 - 6.4 % Diabetic >or= 6.5 % Please note range changes. Performed By: #### L 100.0100, L503.0105, L503.6030, L501.9985 ####[facility] [address] [place], [address] Hemoglobin A1c percentageOrd ered By: Meir Braunke on 08-01-2024 HbA1c (Bld) [Mass fraction] 7.2 % High 3.8-5.6 [facility] Comment on above: Normal < 5.7 % Predi abetic 5.7 - 6.4 % Diabetic >or= 6.5 % Please note range changes. Hemoglobin measurementOrdere d By: Meir Rachelle on 08-01-2024 Hemoglobin (Bld) [Mass/Vol] 12.2 g/dL 12.0-15. 0 [facility] Immature granulocytes/100 WB C Auto (Bld)Ordered By: Gladisdaniel Rachelle on 08-01-2024 Immature granulocytes/100 WBC (Bld) 1.000 % High 0.0-0.9 [facility] Comment on above: IG% - Immature Granu locytes (promyelocytes, myelocytes and metamyelocytes) > 1% indicates that a LEFT SHIFT is Present. Iron (Unsp spec) [Mass/Mass] Ordered By: Meir Zepeda on 08-01-2024 Iron [Mass/Vol] 57 ug/dL 50-170 [facility] Iron saturation [Mass fracti on]Ordered By: Gladisdaniel Rachelle on 08-01-2024 Iron Saturation 18.8 % 15.0-55.0 [facility] Iron+Iron Binding Capacityon 08-01-2024 Iron [Mass/Vol] 57 ug/dL Normal 50-170 [facility] Comment on above: Order Comment: Order Date: 08/01/24Order Info: [id number] - IBC Performed By: #### L 100.0100, L503.0105, L503.6030, L501.9985 ####[facility] [address] [place], [place], [id number] IRON SATURATION 18.8 Normal 15.0-55.0 [facility] Comment on above: Order Comment: Order Date: 08/01/24Order Info: [id number] - IBC Performed By: #### L 100.0100, L503.0105, L503.6030, L501.9985 ####[facility] [address] [place], [address] TIBC 304 ug/dL Normal 250-450 [facility] Comment on above: Order Comment: Order Date: 08/01/24Order Info: [id number] - IBC Performed By: #### L 100.0100, L503.0105, L503.6030, L501.9985 ####[facility] [address] [place], [address] Lymphocytes Auto (Unsp spec) [#/Vol]Ordered By: Meir Zepeda on 08-01-2024 Lymphocytes (Bld) [#/Vol] 2.59 10*3/uL 0.83-4.5 1 [facility] Lymphocytes/100 WBC Auto (Un sp spec)Ordered By: Meir Zepeda on 08-01-2024 Lymphocytes/100 WBC (Bld) 38.0 % 19-41 [facility] MCV (mean corpuscular volume ) determinationOrdered By: Meir Zepeda on 08-01-2024 MCV (RBC) [Entitic vol] 94.4 fL 81-99 [facility] Mean corpuscular hemoglobin (MCH) determinationOrdered By: Meir Zepeda on 08-01-2024 MCH (RBC) [Entitic mass] 31.1 pg 27.0-32.0 [facility] Mean corpuscular hemoglobin concentration (MCHC) determinationOrdered By: Meir Zepeda on 08-01-2024 MCHC (RBC) [Mass/Vol] 33.0 g/dL 32-36 [facility] Mean platelet volume determi nationOrdered By: Meir Zepeda on 08-01-2024 Platelet mean volume (Bld) [Entitic vol] 9.7 fL 6.2-12.0 [facility] Monocyte percentageOrdered B y: Meir Zepeda on 08-01-2024 Monocytes/100 WBC (Bld) 7.5 % 0-10 [facility] Neutrophil percentageOrdered By: Meir Zepeda on 08-01-2024 Neutrophils/100 WBC (Bld) 50.3 % 47-70 [facility] Nucleated red blood cell per centageOrdered By: Meir Zepeda on 08-01-2024 Nucleated RBC/100 WBC (Bld) [Ratio] 0 % 0-5 [facility] Platelet countOrdered By: Jose Zepeda on 08-01-2024 Platelets (Bld) [#/Vol] 382 10*3/uL 150-450 [facility] RBC Auto (Bld) [#/Vol]Ordere d By: Meir Zepeda on 08-01-2024 RBC (Bld) [#/Vol] 3.92 10*6/uL Low 4.2-5.4 [facility] TIBCOrdered By: Meir Zepeda on 08-01-2024 Total Iron Binding Capacity 304 ug/dL 250-450 [facility] Vitamin B12on 08-01-2024 Cobalamin (Vitamin B12) [Mass/Vol] pg/mL High 211-911 [facility] Comment on above: Order Comment: Order Date: 08/01/24Order Info: [id number] - B12 Performed By: #### L 100.0100, L503.0105, L503.6030, L501.9985 ####[facility] [address] [place], [place], [id number] Vitamin B12 measurementOrder ed By: Meir Zepeda on 08-01-2024 Vitamin B12 Level > 2000 pg/mL High 211-911 [facility] White blood cell (WBC) count Ordered By: Meir Zepeda on 08-01-2024 WBC (Bld) [#/Vol] 6.8 10*3/uL 4.4-11.0 [facility] Neurology Visit Reporton Neurology Visit Report [facility] [address] [place] [address], [address] [place], [place] [address] OFFICE VISIT Date of Service: 07/31/24 MR#: [id number] Acct: [id number] Name: ART BLUE Rep #: [id number] : 1955 Provider: Dr. Gilberto maynard MD Age/Sex: 68/F Location: [facility]. Status: Signed HPI HPI Chief Complaint: Details: Interim History: Art returns for follow-up visit. She has a history of hypertension, diabetes mellitus, hyperlipidemia, obstructive sleep apnea on CPAP, [place]-en-Y gastric bypass surgery in 2007 for treatment of morbid obesity, pulmonary embolism in 2007, status post IVC filter placement, lower extremity DVT in 2014, gastric ulcer and renal calculi. In 2018, she had headaches that, for a period of time, occurred daily. Her headaches were frontal headaches. She did not have associated photophobia, phonophobia or nausea. She was having neck pain at that time. She received physical therapy for her neck pain and her daily headaches subsided after about 1 month. Ajovy was of benefit however was discontinued due to cost. Since 2018, she has been having only mild headaches and these have diminished and generally occur about 2 days per month. Her headaches are relieved with acetaminophen. She denied having any significant headaches prior to 2018. She states that her chronic neck pain has subsided. She previously had left upper extremity radicular pain, numbness and tingling. She previously saw a painter and decorator apprentice, Dr. Johnson, and received a cervical injection and her neck pain diminished. She had had some left upper extremity radicular pain, numbness and tingling. Gabapentin, initiated in 2020, has been of benefit for her pain. She has occasional pain in the knees and ankles. She has had right hip pain for which she has had a hip injection. She was seen by an orthopedic surgeon in 2022 and physical therapy was recommended; right hip replacement may be a future consideration. Since January 2023, she has been experiencing right calf region pain that occurs when she stands for more than 10 minutes; this pain subsides when she sits. She denied having low back pain. A right lower extremity venous ultrasound did not reveal evidence of a DVT. She reported having had 4 falls in 2022. She stated that her right leg becomes tremulous prior to her falls she is otherwise vague with regard to other precipitating symptoms though she may be experiencing some slight lightheadedness prior to the falls. She had community-acquired pneumonia in January 2023 with associated right pleural effusion for which she was hospitalized and was treated with an antibiotic and underwent thoracentesis. She has occasional momentary vertigo and disequilibrium with rapid position change and had an exacerbation of the symptoms in 2021; these symptoms have diminished in frequency. Meclizine was of benefit; she now uses this medication infrequently. She had had periods of exacerbations of positional vertigo and lightheadedness over prior years. She reports having periods of pressure sensation in the ears. 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 A head MRI in March 2021 revealed a right frontal convexity meningioma measuring 6 mm and moderate bilateral periventricular and subcortical chronic small vessel ischemic changes. She does not have any history of clinically manifested stroke. She denied having any history of acute vision loss. She has narrow angle glaucoma and mild cataracts. She has restless legs syndrome; her leg restlessness is worse in the evening and night. Ropinirole has been of modest benefit in reducing her leg restlessness however her leg restlessness remains prominent at times and increasing her dose of ropinirole from 2 mg nightly to 2 mg q5PM and 2 mg nightly was not of added benefit however she wishes to retry this dose increase. Baclofen was not well-tolerated and was discontinued. Tizanidine is of benefit for her leg restlessness. Her serum iron level was at the low end of the normal range. She is taking an ffsi-erf-bmrhcxc oral iron supplement for a history of iron deficiency. A prior serum immunofixation revealed an IgG monoclonal protein, lambda type. Her last serum immunofixation (September 2023) was normal. She is on warfarin for her history of DVT and pulmonary embolism. Mini-Mental status exam score was 29/30 in June 2022. She is seeing a beater out and has been diagnosed with fibromyalgia and rheumatoid arthritis. She takes methotrexate, hydroxychloroquine, and tramadol. She takes duloxetine and trazodone. She takes gabapentin 100 mg twice daily for musculoskeletal pain (300 mg 3 times daily was not of added benefit). Aquatic therapy was of benefit for her hip pain. B12 1500 mcg IM injections have been of benefit for her fatigue. She has fatig (more content not included)... Normal [facility] Synovial Fluid RBC, WBC AND Diffon 07-11-2024 PATH COM/Ushi Reviewed Normal [facility] Comment on above: Result Comment: Nega tive for malignant cells. BLOODY SPECIMEN Clinical correlation necessary. Gonzalez Benavidez M.D. 07/11/24 AMENDED REPORT 07/11/24 1355 PATH COM/SYFL previously reported as: May follow Performed By: #### L 200.0400 ####[facility] [address] [place], [address] Appearance (Syn fld)Ordered By: Doris Yip on 07-09-2024 Synovial Fluid Appearance Cloudy CLEAR [facility] Cells Counted Total (Syn fld ) [#]Ordered By: Doris Yip on 07-09-2024 Synovial Fluid Total Cells Counted 0.6350 10^3/uL High 0.000-0.000 [facility] Comment on above: This is the Total Nu mber of Nucleated Cell Types in the Body Fluid. Color (Syn fld)Ordered By: Sheyla Yip on 07-09-2024 Synovial Fluid Color Red Pale Yellow [facility] Lymphocytes/100 WBC (Bld)Ord ered By: Doris Yip on 07-09-2024 Synovial Fluid Lymphocytes 11 % [facility] Monocytes/100 WBC (Syn fld)O rdered By: Doris Yip on 07-09-2024 Synovial Fluid Monocytes 13 % [facility] Mononuclear cells Auto (Syn fld) [#/Vol]Ordered By: Doris Yip on 07-09-2024 Synovial Fluid Mononuclear WBCs 0.268 10^3/ul [facility] Mononuclear cells/100 WBC (S yn fld)Ordered By: Doris Yip on 07-09-2024 Synovial Fluid Mononuclear WBCs % 45.5 % [facility] Neutrophils/100 WBC (Syn fld )Ordered By: Doris Yip on 07-09-2024 Synovial Fluid Neutrophils 68 % High 0-25 [facility] Other cells/100 WBC Nom (Syn fld)Ordered By: Doris Yip on 07-09-2024 Synovial Fluid Other Cells 8 % [facility] Pathologist review Arnav (Unsp spec) [Interp]Ordered By: Doris Yip on 07-09-2024 Synovial Fluid Pathologist Comment Reviewed [facility] Comment on above: Previous reported re sult: May follow Edited by: AYLIN on 07/11/24:1355Negative for malignant cells.BLOODY SPECIMENClinical correlation necessary.Gonzalez Benavidez M.D. 07/11/24 AMENDED REPORT 07/11/24 8055 PATH COM/SYFL previously reported as: May follow Polymorphonuclear cells Auto (Syn fld) [#/Vol]Ordered By: Doris Yip on 07-09-2024 Synovial Fluid Polynuclear WBCs 0.322 10^3/uL [facility] Polymorphonuclear cells/100 WBC Auto (Syn fld)Ordered By: Doris Yip on 07-09-2024 Synovial Fluid Polynuclear WBCs % 54.5 % [facility] RBC (Syn fld) [#/Vol]Ordered By: Doris Yip on 07-09-2024 Synovial Fluid RBC 0.190 10^6/uL High 0-0 [facility] Specimen source Nom (Body fl d)Ordered By: Doris Yip on 07-09-2024 Synovial Fluid Source RIGHT HIP [facility] WBC Auto (Syn fld) [#/Vol]Or dered By: Doris Yip on 07-09-2024 Synovial Fluid WBC 0.5900 10^3/uL High 0.000-0.002 [facility] Low Dose CT Lung Screeningon 07-07-[address] Lung Screening [facility] Imaging Services [address] [place], [place] [address] Low Dose CT Lung Screening MR#: [id number] Acct: [id number] Name: ART BLUE Rep #: [id number] : 1955 F 68 From: Willie Hua MD PCP: Dr. Meir Zepeda MD Status: [facility] Study: Low Dose CT Lung Screening Date of Exam: 07/07 Exam# [id number] Ordering Dr: Josefa Rocha ASSOCIATE [employer]ICAL SALES ASSOCIATE [employer]-C [id number] EXAM: CT CHEST, LUNG CANCER SCREENING WITHOUT INTRAVENOUS CONTRAST CLINICAL INDICATION: screening TECHNIQUE: Helically acquired images were obtained of the chest without intravenous contrast using low dose (LDCT) lung cancer screening protocol. This CT exam was performed using one or more of the following dose reduction techniques: automated exposure control, adjustment of the mA and/or kV according to patient size, and/or use of iterative reconstruction technique. COMPARISON: No relevant prior studies available. FINDINGS: LUNGS AND PLEURAL SPACES: There is mild scarring in the lung bases. No mass. No pleural effusion or thickening. No pneumothorax. HEART: Unremarkable. Heart size is normal. No pericardial effusion. No significant coronary artery calcifications. MEDIASTINUM: Unremarkable. No mediastinal or hilar adenopathy. Esophagus is unremarkable. No hiatal hernia. THYROID: Unremarkable. No thyroid lesions. BONES/JOINTS: Unremarkable. No suspicious lytic or blastic abnormality. VASCULATURE: Unremarkable. Thoracic aorta is non-dilated. LYMPH NODES: Unremarkable. No enlarged lymph nodes. CT/Low Dose CT Lung Screening IMPRESSION: Minimal scarring lung bases. There is no acute pulmonary abnormality. Lung-RADS score: 1 - Recommend continued annual screening with a low-dose CT (LDCT) in 12 months. Electronically Signed: Willie Hua MD at 17:02 EST , CC: UTE Rocha; Dr. Meir Zepeda MD Tube Builder: Signed Normal [facility] CBC W/Diff, Automatedon 05-23 Absolute Lymph 2.54 X10 3/uL Normal 0.83-4.51 [facility] Comment on above: Performed By: #### L 500.4050, L100.0100 ####[facility] [address] [place], [address] Absolute Neut 5.9 X10 3/uL Normal 2.0-7.7 [facility] Comment on above: Performed By: #### L 500.4050, L100.0100 ####[facility] [address] [place], [address] Basophils/100 WBC (Bld) 0.6 % Normal 0-1 [facility] Comment on above: Performed By: #### L 500.4050, L100.0100 ####[facility] [address] [place], [address] Eosinophils/100 WBC (Bld) 1.5 % Normal 0-5 [facility] Comment on above: Performed By: #### L 500.4050, L100.0100 ####[facility] [address] [place], [address] Erythrocyte distribution width (RBC) [Ratio] 14.7 % High 11.6-14.6 [facility] Comment on above: Performed By: #### L 500.4050, L100.0100 ####[facility] [address] [place], [address] Hematocrit (Bld) [Volume fraction] 35.6 % Low 37-47 [facility] Comment on above: Performed By: #### L 500.4050, L100.0100 ####[facility] [address] [place], [address] Hemoglobin (Bld) [Mass/Vol] 11.6 g/dL Low 12.0-15. 0 [facility] Comment on above: Performed By: #### L 500.4050, L100.0100 ####[facility] [address] [place], [address] IG% 1.200 High 0.0-0.9 [facility] Comment on above: Result Comment: IG% - Immature Granulocytes (promyelocytes, myelocytes and metamyelocytes) > 1% indicates that a LEFT SHIFT is Present. Performed By: #### L 500.4050, L100.0100 ####[facility] [address] [place], [address] Lymphocytes/100 WBC (Bld) 27.1 % Normal 19-41 [facility] Comment on above: Performed By: #### L 500.4050, L100.0100 ####[facility] [address] [place], [address] MCH (RBC) [Entitic mass] 31.9 pg Normal 27.0-32.0 [facility] Comment on above: Performed By: #### L 500.4050, L100.0100 ####[facility] [address] [place], [address] MCHC (RBC) [Mass/Vol] 32.6 g/dL Normal 32-36 [facility] Comment on above: Performed By: #### L 500.4050, L100.0100 ####[facility] [address] [place], [address] MCV (RBC) [Entitic vol] 97.8 fL Normal 81-99 [facility] Comment on above: Performed By: #### L 500.4050, L100.0100 ####[facility] [address] [place], [address] Monocytes/100 WBC (Bld) 6.9 % Normal 0-10 [facility] Comment on above: Performed By: #### L 500.4050, L100.0100 ####[facility] [address] [place], [address] Neutrophils/100 WBC (Bld) 62.7 % Normal 47-70 [facility] Comment on above: Performed By: #### L 500.4050, L100.0100 ####[facility] [address] [place], [address] Nucleated RBC (Bld) [#/Vol] 0 10*3/uL Normal 0-5 [facility] Comment on above: Performed By: #### L 500.4050, L100.0100 ####[facility] [address] [place], [address] Platelet mean volume (Bld) [Entitic vol] 10.0 fL Normal 6.2-12.0 [facility] Comment on above: Performed By: #### L 500.4050, L100.0100 ####[facility] [address] [place], [address] Platelets (Bld) [#/Vol] 339 10*3/uL Normal 150-450 [facility] Comment on above: Performed By: #### L 500.4050, L100.0100 ####[facility] [address] [place], [address] RBC (Bld) [#/Vol] 3.64 10*6/uL Low 4.2-5.4 [facility] Comment on above: Performed By: #### L 500.4050, L100.0100 ####[facility] [address] [place], [address] RDW SD 52.5 fl High 35.1-43.9 [facility] Comment on above: Performed By: #### L 500.4050, L100.0100 ####[facility] [address] [place], [address] WBC (Bld) [#/Vol] 9.4 10*3/uL Normal 4.4-11.0 [facility] Comment on above: Performed By: #### L 500.4050, L100.0100 ####[facility] [address] [place], [address] Comprehensive Metabolic Prof [facility] 06-06-2024 Albumin [Mass/Vol] 3.3 g/dL Normal 3.2-5.0 [facility] Comment on above: Performed By: #### L 500.4050, L100.0100 ####[facility] [address] [place], [address] Albumin/Globulin [Mass ratio] 0.9 {ratio} Normal 0.9-2.4 [facility] Comment on above: Performed By: #### L 500.4050, L100.0100 ####[facility] [address] [place], [address] ALK P 66 U/L Normal 45-117 [facility] Comment on above: Performed By: #### L 500.4050, L100.0100 ####[facility] [address] [place], [address] ALT [Catalytic activity/Vol] 27 U/L Normal 13-56 [facility] Comment on above: Performed By: #### L 500.4050, L100.0100 ####[facility] [address] [place], [address] AST [Catalytic activity/Vol] 24 U/L Normal 15-37 [facility] Comment on above: Performed By: #### L 500.4050, L100.0100 ####[facility] [address] [place], [address] Bilirubin [Mass/Vol] 0.30 mg/dL Normal 0.20-1.00 [facility] Comment on above: Result Comment: For patients on eltrombopag therapy, use of Dimension [place] TBIL is not recommended. Performed By: #### L 500.4050, L100.0100 ####[facility] [address] [place], [address] BUN/CRE 22.8 RATIO High 10-20 [facility] Comment on above: Performed By: #### L 500.4050, L100.0100 ####[facility] [address] [place], [address] CA,Total 8.7 mg/dL Normal 8.5-10.1 [facility] Comment on above: Performed By: #### L 500.4050, L100.0100 ####[facility] [address] [place], [address] Chloride [Moles/Vol] 105 mmol/L Normal 98-107 [facility] Comment on above: Performed By: #### L 500.4050, L100.0100 ####[facility] [address] [place], [address] CO2 [Moles/Vol] 29.0 mmol/L Normal 21.0-32.0 [facility] Comment on above: Performed By: #### L 500.4050, L100.0100 ####[facility] [address] [place], [address] Creatinine [Mass/Vol] 1.01 mg/dL Normal 0.55-1.02 [facility] Comment on above: Result Comment: The validity of the calculated GFR GFRAA in patients over 70 years has not been determined. Clinical correlation is essential. Performed By: #### L 500.4050, L100.0100 ####[facility] [address] [place], [address] EST GFR - AA 70 mL/min Normal >60 [facility] Comment on above: Result Comment: Afri can [place] GFR Calc Performed By: #### L 500.4050, L100.0100 ####[facility] [address] [place], [address] GAP 7 Normal 5-15 [facility] Comment on above: Performed By: #### L 500.4050, L100.0100 ####[facility] [address] [place], [address] GFR/1.73 sq M.predicted among non-blacks MDRD (S/P/Bld) [Vol rate/Area] 58 mL/min/{1.73_m2} Low >60 [facility] Comment on above: Result Comment: Non- GFR Calc Performed By: #### L 500.4050, L100.0100 ####[facility] [address] [place], [address] Globulin (S) [Mass/Vol] 3.7 g/dL Normal 2.2-4.2 [facility] Comment on above: Performed By: #### L 500.4050, L100.0100 ####[facility] [address] [place], [address] Glucose [Mass/Vol] 152 mg/dL High 74-106 [facility] Comment on above: Result Comment: Fast ing Glucose result greater than or equal to 126 mg/dL suggests DIABETES MELLITUS per A.D.A. criteria. Performed By: #### L 500.4050, L100.0100 ####[facility] [address] [place], [address] Potassium [Moles/Vol] 4.2 mmol/L Normal 3.5-5.1 [facility] Comment on above: Performed By: #### L 500.4050, L100.0100 ####[facility] [address] [place], [address] Sodium [Moles/Vol] 141 mmol/L Normal 136-145 [facility] Comment on above: Performed By: #### L 500.4050, L100.0100 ####[facility] [address] [place], [address] T PROT 7.0 g/dL Normal 6.4-8.2 [facility] Comment on above: Performed By: #### L 500.4050, L100.0100 ####[facility] [address] [place], [address] Urea nitrogen [Mass/Vol] 23 mg/dL High 7-18 [facility] Comment on above: Performed By: #### L 500.4050, L100.0100 ####[facility] [address] [place], [address] Office Visit Reporton 2023 Office Visit Report [facility] [address] [place] [address] OFFICE VISIT Date of Service: 05/22/24 MR#: [id number] Acct: [id number] Patient: ART BLUE Rep #: [id number] : 1955 Provider: Dr. Gilberto maynard MD Age/Sex: 68/F Location: [facility] Status: Signed Intake Vital Signs 03/18/24 11:00 04/21/24 10:59 05/22/24 11:33 Height 5 ft 5 in 5 ft 5 in 5 ft 5 in Weight: 249 lb BMI 41.4 BP 122/70 H 162/76 H Blood Pressure Location Lt brachial Lt brachial Position Sitting Sitting Respiration 17 17 Pulse 76 94 Pulse Source Monitor Monitor Temp 97.8 F 97.8 F Temp Source Temporal Temporal Pulse Oximetry (%) 96 96 Oxygen Delivery Method room air room air Intake Visit Reasons: B12 inject Chief Complaint: Allergies amoxicillin Allergy (Mild, Verified 01/18/24 09:24) rash atorvastatin Adverse Reaction (Mild, Verified 01/18/24 09:24) myalgiias levofloxacin (From Levaquin) Adverse Reaction (Unknown, Verified 01/18/24 09:24) Nausea Have you fallen in the past year?: No Office Meds cyanocobalamin (vitamin B-12) 1,000 mcg/mL injection solution Performing Provider: Gilberto Rasmussen MD Performing Location: [facility] Administered by: Chinyere Mandel on 05/22/24 11:05 Dose Route Admin Location Dispensed Lot Number Expiration Date NDC Man ufacturer 1,500 mcg IM left deltoid 1.5 mL [id number] 08/22/26 50235-765-43 SORAYA HENSNO Comments: The patient presents for B12 injection for treatment of fatigue. She has fatigue. Her last B12 injection was of benefit for fatigue. The patient is awake and alert. B12 1500mcg IM was administered today. There were no complications. Assessment and Plan Assessment and Plan (1) Fatigue: Status: Chronic Qualifiers: Fatigue type: chronic, unspecified Qualified Code(s): R53.82 - Chronic fatigue, unspecified Orders: Orders Vitamin B12 Today R53.82 - Chronic fatigue, unspecified Clinical Quality Measures Falls Risk Screening/Assistive Devices Have you fallen in the past year?: No 05/22/24 1639 Date Gilberto Steward Signature: Date (if applicable) CC: Normal [facility] Chest PA and Lateralon 05-16 Chest PA and Lateral [facility] Imaging Services [address] [place] [address] Chest PA and Lateral MR#: [id number] Acct: [id number] Name: ART BLUE Rep #: [id number] : 1955 F 68 From: Maia Caldwell PCP: Dr. Meir Zepeda MD Status: [facility] Study: Chest PA and Lateral Date of Exam: 05/16/24 Exam# [id number] Ordering Dr: Meir Zepeda MD [id number] INDICATION: COUGH EXAMINATION/TECHNIQU E: X-RAY - XR Chest 2 Views COMPARISON: Prior study dated: 04/09/2024 ____ FINDINGS: LINES/DEVICES: None. LUNGS: No consolidation. No pneumothorax. MEDIASTINUM: Aorta is atherosclerotic. CARDIAC SILHOUETTE: Not enlarged. BONES AND SOFT TISSUES: No acute abnormalities. ____ RAD/Chest PA and Lateral IMPRESSION: No evidence of active intrathoracic disease. Electronically Signed: Maia Mckee MD at 22:17 EDT , CC: Dr. Meir Zepeda MD Tube Builder: Signed Normal [facility] Toe(s) Min 2 Viewson 024 Toe(s) Min 2 Views [facility] Imaging Services [address] [place] [address] Toe(s) Min 2 Views MR#: [id number] Acct: [id number] Name: ART BLUE Rep #: [id number] : 1955 F 68 From: Maia Caldwell PCP: Dr. Meir Zepeda MD Status: REG CLI Study: Toe(s) Min 2 Views Date of Exam: 05/16/24 Exam# [id number] Ordering Dr: Meir Zepeda MD [id number] INDICATION: TOE INJURY 2nd toe pain on left foot- luggage fell on it EXAMINATION/TECHNIQU E: X-RAY - LEFT FOOT XR Toes Min 2 Views 3 VIEWS COMPARISON: No relevant prior comparison study available ____ FINDINGS: BONES: No acute fracture midshaft distal phalanx of the second digit not significantly displaced. Flexion at the PIP joints/hammertoe deformity of the second digit. JOINTS: No dislocation. SOFT TISSUES: Unremarkable. ____ RAD/Toe(s) Min 2 Views IMPRESSION: Acute nondisplaced fracture distal phalanx second digit. Electronically Signed: Maia Mckee MD at 22:20 EDT , CC: Dr. Meir Zepeda MD Tube Builder: Signed Normal [facility] Office Visit Reporton 2023 Office Visit Report [facility] Services [address] [address] OFFICE VISIT Date of Service: 04/21/24 MR#: [id number] Acct: [id number] Patient: ART BLUE Rep #: [id number] : 1955 Provider: Dr. Gilberto maynard MD Age/Sex: 68/F Location: [facility] Status: Signed Intake Vital Signs 02/19/24 10:02 03/18/24 11:00 04/21/24 10:59 Height 5 ft 5 in 5 ft 5 in 5 ft 5 in Weight: 252 lb 249 lb BMI 41.9 41.4 BP 116/60 122/70 H Blood Pressure Location Lt brachial Lt brachial Position Sitting Sitting Respiration 17 17 Pulse 85 76 Pulse Source Monitor Monitor Temp 98.0 F 97.8 F Temp Source Temporal Temporal Pulse Oximetry (%) 95 96 Oxygen Delivery Method room air room air Intake Visit Reasons: B12 inject Chief Complaint: Allergies amoxicillin Allergy (Mild, Verified 01/18/24 09:24) rash atorvastatin Adverse Reaction (Mild, Verified 01/18/24 09:24) myalgiias levofloxacin (From Levaquin) Adverse Reaction (Unknown, Verified 01/18/24 09:24) Nausea Have you fallen in the past year?: No Office Meds cyanocobalamin (vitamin B-12) 1,000 mcg/mL injection solution Performing Provider: Gilberto Rasmussen MD Performing Location: [facility] Administered by: Chinyere Mandel on 04/21/24 11:06 Dose Route Admin Location Dispensed Lot Number Expiration Date NDC Man ufacturer 1,500 mcg IM right deltoid 1.5 mL [id number] 05/22/26 80678-969-32 SORAYA HENSON Comments: The patient presents for B12 injection for treatment of fatigue. She has fatigue. Her last B12 injection was of benefit for fatigue. The patient is awake and alert. B12 1500mcg IM was administered today. There were no complications. Assessment and Plan Assessment and Plan (1) Fatigue: Status: Chronic Qualifiers: Fatigue type: chronic, unspecified Qualified Code(s): R53.82 - Chronic fatigue, unspecified Orders: Orders Vitamin B12 Today R53.82 - Chronic fatigue, unspecified Clinical Quality Measures Falls Risk Screening/Assistive Devices Have you fallen in the past year?: No 04/21/24 1651 Date Gilberto Rasmussen MD Cosigner Signature: Date (if applicable) CC: Normal [facility] Respiratory Cultureon 2023 RESPC Mixed normal respiratory maine. No Streptococcus pneumoniae, beta-hemolytic Streptococcus or Staphylococcus aureus isolated. Normal [facility] Comment on above: Performed By: #### M 100.2400, M100.1999 ####[facility] [address] [facility] [place], [address] Chest PA and Lateralon 04-09 Chest PA and Lateral [facility] Imaging Services [address] [place], [place] [address] Chest PA and Lateral MR#: [id number] Acct: [id number] Name: ART BLUE Rep #: [id number] : 1955 F 68 From: Chevy Benitez MD PCP: Dr. Meir Zepeda MD Status: [facility] CLI Study: Chest PA and Lateral Date of Exam: 04/09/24 Exam# [id number] Ordering Dr: Gerard Pereyra MD [id number] STUDY: X-RAY CHEST REASON FOR EXAM: Female, 68 years old. Shortness of breath with cough. TECHNIQUE: Frontal and lateral views of the chest. COMPARISON: April 19, 2023 FINDINGS: The lungs are clear and expanded. Resolution of right pleural effusion is present study. Mild cardiomegaly unchanged. Normal mediastinum and luda. Normal visualized pulmonary arteries. Aortic tortuosity with calcification unchanged. Normal visualized thoracic spine. Normal visualized ribs, clavicles, and shoulders. No abnormality of the visualized soft tissue structures of the upper abdomen. RAD/Chest PA and Lateral IMPRESSION: Resolution of right pleural effusion. At present, no active or acute cardiopulmonary disease. Electronically Signed: Chevy Benitez MD at 10:58 EDT Reading Location ID and State: [facility] / [place] , Service support , CC: Dr. Meir Zepeda MD; Dr. Gerard Pereyra MD Tube Builder: Signed Normal [facility] Gram Stainon 04-09-2024 GS Acceptable Specimen? Yes (<25 Epithelial cells per/lpf) Gram Stain 4+ White Blood Cells Rare Gram positive cocci Rare Epithelial cells Normal [facility] Comment on above: Performed By: #### M 100.5150, M100.2000 ####[facility] [address] [place], [address] Office Visit Reporton 2023 Office Visit Report [facility] [address] [address] OFFICE VISIT Date of Service: 03/18/24 MR#: [id number] Acct: [id number] Patient: ART BLUE Rep #: [id number] : 1955 Provider: Dr. Gilberto maynard MD Age/Sex: 68/F Location: [facility] Status: Signed Intake Vital Signs 01/17/24 10:15 02/19/24 10:02 03/18/24 11:00 Height 5 ft 5 in 5 ft 5 in 5 ft 5 in Weight: 245 lb 3 oz 252 lb BMI 40.8 41.9 BP 118/60 116/60 Blood Pressure Location Lt brachial Lt brachial Position Sitting Sitting Respiration 17 17 Pulse 90 85 Pulse Source Monitor Monitor Temp 97.8 F 98.0 F Temp Source Temporal Temporal Pulse Oximetry (%) 97 95 Oxygen Delivery Method room air room air Intake Visit Reasons: B12 Chief Complaint: Allergies amoxicillin Allergy (Mild, Verified 01/18/24 09:24) rash atorvastatin Adverse Reaction (Mild, Verified 01/18/24 09:24) myalgiias levofloxacin (From Levaquin) Adverse Reaction (Unknown, Verified 01/18/24 09:24) Nausea Have you fallen in the past year?: No Office Meds cyanocobalamin (vitamin B-12) 1,000 mcg/mL injection solution Performing Provider: Gilberto Rasmussen MD Performing Location: [facility] Administered by: Chinyere Mandel on 03/18/24 11:01 Dose Route Admin Location Dispensed Lot Number Expiration Date [facility] Man ufacturer 1,500 mcg IM left deltoid 1.5 mL [id number] 05/22/26 37712-795-71 SORAYA HENSON Comments: The patient presents for B12 injection for treatment of fatigue. She has fatigue. Her last B12 injection was of benefit for fatigue. The patient is awake and alert. B12 1500mcg IM was administered today. There were no complications Assessment and Plan Assessment and Plan (1) Fatigue: Status: Chronic Qualifiers: Fatigue type: chronic, unspecified Qualified Code(s): R53.82 - Chronic fatigue, unspecified Orders: Orders Vitamin B12 Today R53.82 - Chronic fatigue, unspecified Clinical Quality Measures Falls Risk Screening/Assistive Devices Have you fallen in the past year?: No 03/18/24 1156 Date Gilberto Rasmussen MD [facility] Signature: Date (if applicable) CC: Normal [facility] CBC W/Diff, Automatedon 08- Absolute Lymph 2.00 X10 3/uL Normal 0.83-4.51 [facility] Comment on above: Performed By: #### L 100.0100, L500.4050 ####[facility] [address] [place], [address] Absolute Neut 4.4 X10 3/uL Normal 2.0-7.7 [facility] Comment on above: Performed By: #### L 100.0100, L500.4050 ####[facility] [address] [place], [address] Basophils/100 WBC (Bld) 0.6 % Normal 0-1 [facility] Comment on above: Performed By: #### L 100.0100, L500.4050 ####[facility] [address] [place], [address] Eosinophils/100 WBC (Bld) 1.9 % Normal 0-5 [facility] Comment on above: Performed By: #### L 100.0100, L500.4050 ####[facility] [address] [place], [address] Erythrocyte distribution width (RBC) [Ratio] 14.3 % Normal 11.6-14.6 [facility] Comment on above: Performed By: #### L 100.0100, L500.4050 ####[facility] [address] [place], [address] Hematocrit (Bld) [Volume fraction] 35.6 % Low 37-47 [facility] Comment on above: Performed By: #### L 100.0100, L500.4050 ####[facility] [address] [place], [address] Hemoglobin (Bld) [Mass/Vol] 11.3 g/dL Low 12.0-15. 0 [facility] Comment on above: Performed By: #### L 100.0100, L500.4050 ####[facility] [address] [place], [address] IG% 0.600 Normal 0.0-0.9 [facility] Comment on above: Result Comment: IG% - Immature Granulocytes (promyelocytes, myelocytes and metamyelocytes) > 1% indicates that a LEFT SHIFT is Present. Performed By: #### L 100.0100, L500.4050 ####[facility] [address] [place], [address] Lymphocytes/100 WBC (Bld) 28.5 % Normal 19-41 [facility] Comment on above: Performed By: #### L 100.0100, L500.4050 ####[facility] [address] [place], [address] MCH (RBC) [Entitic mass] 30.2 pg Normal 27.0-32.0 [facility] Comment on above: Performed By: #### L 100.0100, L500.4050 ####[facility] [address] [place], [address] MCHC (RBC) [Mass/Vol] 31.7 g/dL Low 32-36 [facility] Comment on above: Performed By: #### L 100.0100, L500.4050 ####[facility] [address] [place], [address] MCV (RBC) [Entitic vol] 95.2 fL Normal 81-99 [facility] Comment on above: Performed By: #### L 100.0100, L500.4050 ####[facility] [address] [place], [address] Monocytes/100 WBC (Bld) 5.4 % Normal 0-10 [facility] Comment on above: Performed By: #### L 100.0100, L500.4050 ####[facility] [address] [place], [address] Neutrophils/100 WBC (Bld) 63.0 % Normal 47-70 [facility] Comment on above: Performed By: #### L 100.0100, L500.4050 ####[facility] [address] [place], [address] Nucleated RBC (Bld) [#/Vol] 0 10*3/uL Normal 0-5 [facility] Comment on above: Performed By: #### L 100.0100, L500.4050 ####[facility] [address] [place], [address] Platelet mean volume (Bld) [Entitic vol] 9.7 fL Normal 6.2-12.0 [facility] Comment on above: Performed By: #### L 100.0100, L500.4050 ####[facility] [address] [place], [address] Platelets (Bld) [#/Vol] 281 10*3/uL Normal 150-450 [facility] Comment on above: Performed By: #### L 100.0100, L500.4050 ####[facility] [address] [place], [address] RBC (Bld) [#/Vol] 3.74 10*6/uL Low 4.2-5.4 [facility] Comment on above: Performed By: #### L 100.0100, L500.4050 ####[facility] [address] [place], [address] RDW SD 49.5 fl High 35.1-43.9 [facility] Comment on above: Performed By: #### L 100.0100, L500.4050 ####[facility] [address] [place], [address] WBC (Bld) [#/Vol] 7.0 10*3/uL Normal 4.4-11.0 [facility] Comment on above: Performed By: #### L 100.0100, L500.4050 ####[facility] [address] [place], [address] Comprehensive Metabolic Prof ildaniel 03-17-2024 Albumin [Mass/Vol] 3.0 g/dL Low 3.2-5.0 [facility] Comment on above: Performed By: #### L 100.0100, L500.4050 ####[facility] [address] [place], [address] Albumin/Globulin [Mass ratio] 0.8 {ratio} Low 0.9-2.4 [facility] Comment on above: Performed By: #### L 100.0100, L500.4050 ####[facility] [address] [place], [address] ALK P 66 U/L Normal 45-117 [facility] Comment on above: Performed By: #### L 100.0100, L500.4050 ####[facility] [address] [place], [address] ALT [Catalytic activity/Vol] 34 U/L Normal 13-56 [facility] Comment on above: Performed By: #### L 100.0100, L500.4050 ####[facility] [address] [place], [address] AST [Catalytic activity/Vol] 20 U/L Normal 15-37 [facility] Comment on above: Performed By: #### L 100.0100, L500.4050 ####[facility] [address] [place], [address] Bilirubin [Mass/Vol] 0.20 mg/dL Normal 0.20-1.00 [facility] Comment on above: Result Comment: For patients on eltrombopag therapy, use of Dimension [place] TBIL is not recommended. Performed By: #### L 100.0100, L500.4050 ####[facility] [address] [place], [address] BUN/CRE 32.3 RATIO High 10-20 [facility] Comment on above: Performed By: #### L 100.0100, L500.4050 ####[facility] [address] [place], [address] CA,Total 8.6 mg/dL Normal 8.5-10.1 [facility] Comment on above: Performed By: #### L 100.0100, L500.4050 ####[facility] [address] [place], [address] Chloride [Moles/Vol] 103 mmol/L Normal 98-107 [facility] Comment on above: Performed By: #### L 100.0100, L500.4050 ####[facility] [address] [place], [address] CO2 [Moles/Vol] 28.0 mmol/L Normal 21.0-32.0 [facility] Comment on above: Performed By: #### L 100.0100, L500.4050 ####[facility] [address] [place], [address] Creatinine [Mass/Vol] 0.84 mg/dL Normal 0.55-1.02 [facility] Comment on above: Result Comment: The validity of the calculated GFR GFRAA in patients over 70 years has not been determined. Clinical correlation is essential. Performed By: #### L 100.0100, L500.4050 ####[facility] [address] [place], [address] EST GFR - AA 87 mL/min Normal >60 [facility] Comment on above: Result Comment: Afri can [place] GFR Calc Performed By: #### L 100.0100, L500.4050 ####[facility] [address] [place], [address] GAP 8 Normal 5-15 [facility] Comment on above: Performed By: #### L 100.0100, L500.4050 ####[facility] [address] [place], [address] GFR/1.73 sq M.predicted among non-blacks MDRD (S/P/Bld) [Vol rate/Area] 72 mL/min/{1.73_m2} Normal >60 [facility] Comment on above: Result Comment: Non- GFR Calc Performed By: #### L 100.0100, L500.4050 ####[facility] [address] [place], [address] Globulin (S) [Mass/Vol] 4.0 g/dL Normal 2.2-4.2 [facility] Comment on above: Performed By: #### L 100.0100, L500.4050 ####[facility] [address] [place], [address] Glucose [Mass/Vol] 184 mg/dL High 74-106 [facility] Comment on above: Result Comment: Fast ing Glucose result greater than or equal to 126 mg/dL suggests DIABETES MELLITUS per A.D.A. criteria. Performed By: #### L 100.0100, L500.4050 ####[facility] [address] [place], [address] Potassium [Moles/Vol] 3.8 mmol/L Normal 3.5-5.1 [facility] Comment on above: Performed By: #### L 100.0100, L500.4050 ####[facility] [address] [place], [address] Sodium [Moles/Vol] 139 mmol/L Normal 136-145 [facility] Comment on above: Performed By: #### L 100.0100, L500.4050 ####[facility] [address] [place], [address] T PROT 7.0 g/dL Normal 6.4-8.2 [facility] Comment on above: Performed By: #### L 100.0100, L500.4050 ####[facility] [address] [place], [address] Urea nitrogen [Mass/Vol] 27 mg/dL High 7-18 [facility] Comment on above: Performed By: #### L 100.0100, L500.4050 ####[facility] [address] [place], [address] Office Visit Reporton 2023 Office Visit Report [facility] [address] [place] [address] OFFICE VISIT Date of Service: 02/19/24 MR#: [id number] Acct: [id number] Patient: ART BLUE Rep #: [id number] : 1955 Provider: Dr. Gilberto maynard MD Age/Sex: 68/F Location: [facility] Status: Signed Intake Vital Signs 12/10/23 14:03 01/17/24 10:15 02/19/24 10:02 Height 5 ft 5 in 5 ft 5 in 5 ft 5 in Weight: 245 lb 245 lb 3 oz BMI 40.7 40.8 BP 108/60 118/60 Blood Pressure Location Lt brachial Lt brachial Position Sitting Sitting Respiration 17 17 Pulse 90 90 Pulse Source Monitor Monitor Temp 97.8 F 97.8 F Temp Source Temporal Temporal Pulse Oximetry (%) 97 97 Oxygen Delivery Method room air room air Intake Visit Reasons: B12 inject Chief Complaint: Allergies amoxicillin Allergy (Mild, Verified 01/18/24 09:24) rash atorvastatin Adverse Reaction (Mild, Verified 01/18/24 09:24) myalgiias levofloxacin (From Levaquin) Adverse Reaction (Unknown, Verified 01/18/24 09:24) Nausea Have you fallen in the past year?: No Office Meds cyanocobalamin (vitamin B-12) 1,000 mcg/mL injection solution Performing Provider: Gilberto Rasmussen MD Performing Location: [facility] Administered by: Chinyere Mandel on 02/19/24 10:04 Dose Route Admin Location Dispensed Lot Number Expiration Date ANDREASC Андрей ufacturer 1,500 mcg IM right deltoid 1.5 mL [id number] 05/22/26 [id number] SORAYA HENSON Comments: The patient presents for B12 injection for treatment of fatigue. She has fatigue. Her last B12 injection was of benefit for fatigue. The patient is awake and alert. B12 1500mcg IM was administered today. There were no complications. Assessment and Plan Assessment and Plan (1) Fatigue: Status: Chronic Qualifiers: Fatigue type: chronic, unspecified Qualified Code(s): R53.82 - Chronic fatigue, unspecified Orders: Orders Vitamin B12 Today R53.82 - Chronic fatigue, unspecified Clinical Quality Measures Falls Risk Screening/Assistive Devices Have you fallen in the past year?: No 02/19/24 1050 Date Gilberto Steward Signature: Date (if applicable) CC: Normal [facility] CBC W/Diff, Automatedon 07-0 Absolute Lymph 2.22 X10 3/uL Normal 0.83-4.51 [facility] Comment on above: Performed By: #### L 500.4050, L100.0100 ####[facility] [address] [place], [address] Absolute Neut 5.1 X10 3/uL Normal 2.0-7.7 [facility] Comment on above: Performed By: #### L 500.4050, L100.0100 ####[facility] [address] [place], [address] Basophils/100 WBC (Bld) 0.6 % Normal 0-1 [facility] Comment on above: Performed By: #### L 500.4050, L100.0100 ####[facility] [address] [place], [address] Eosinophils/100 WBC (Bld) 1.7 % Normal 0-5 [facility] Comment on above: Performed By: #### L 500.4050, L100.0100 ####[facility] [address] [place], [address] Erythrocyte distribution width (RBC) [Ratio] 14.5 % Normal 11.6-14.6 [facility] Comment on above: Performed By: #### L 500.4050, L100.0100 ####[facility] [address] [place], [address] Hematocrit (Bld) [Volume fraction] 38.5 % Normal 37-47 [facility] Comment on above: Performed By: #### L 500.4050, L100.0100 ####[facility] [address] [place], [address] Hemoglobin (Bld) [Mass/Vol] 12.5 g/dL Normal 12.0-15. 0 [facility] Comment on above: Performed By: #### L 500.4050, L100.0100 ####[facility] [address] [place], [address] IG% 0.400 Normal 0.0-0.9 [facility] Comment on above: Result Comment: IG% - Immature Granulocytes (promyelocytes, myelocytes and metamyelocytes) > 1% indicates that a LEFT SHIFT is Present. Performed By: #### L 500.4050, L100.0100 ####[facility] [address] [place], [address] Lymphocytes/100 WBC (Bld) 27.7 % Normal 19-41 [facility] Comment on above: Performed By: #### L 500.4050, L100.0100 ####[facility] [address] [place], [address] MCH (RBC) [Entitic mass] 30.6 pg Normal 27.0-32.0 [facility] Comment on above: Performed By: #### L 500.4050, L100.0100 ####[facility] [address] [place], [address] MCHC (RBC) [Mass/Vol] 32.5 g/dL Normal 32-36 [facility] Comment on above: Performed By: #### L 500.4050, L100.0100 ####[facility] [address] [place], [address] MCV (RBC) [Entitic vol] 94.4 fL Normal 81-99 [facility] Comment on above: Performed By: #### L 500.4050, L100.0100 ####[facility] [address] [place], [address] Monocytes/100 WBC (Bld) 6.4 % Normal 0-10 [facility] Comment on above: Performed By: #### L 500.4050, L100.0100 ####[facility] [address] [place], [address] Neutrophils/100 WBC (Bld) 63.2 % Normal 47-70 [facility] Comment on above: Performed By: #### L 500.4050, L100.0100 ####[facility] [address] [place], [address] Nucleated RBC (Bld) [#/Vol] 0 10*3/uL Normal 0-5 [facility] Comment on above: Performed By: #### L 500.4050, L100.0100 ####[facility] [address] [place], [address] Platelet mean volume (Bld) [Entitic vol] 9.7 fL Normal 6.2-12.0 [facility] Comment on above: Performed By: #### L 500.4050, L100.0100 ####[facility] [address] [place], [address] Platelets (Bld) [#/Vol] 321 10*3/uL Normal 150-450 [facility] Comment on above: Performed By: #### L 500.4050, L100.0100 ####[facility] [address] [place], [address] RBC (Bld) [#/Vol] 4.08 10*6/uL Low 4.2-5.4 [facility] Comment on above: Performed By: #### L 500.4050, L100.0100 ####[facility] [address] [place], [address] RDW SD 49.8 fl High 35.1-43.9 [facility] Comment on above: Performed By: #### L 500.4050, L100.0100 ####[facility] [address] [place], [address] WBC (Bld) [#/Vol] 8.0 10*3/uL Normal 4.4-11.0 [facility] Comment on above: Performed By: #### L 500.4050, L100.0100 ####[facility] [address] [place], [address] Comprehensive Metabolic Prof [facility] 01-21-2024 Albumin [Mass/Vol] 3.4 g/dL Normal 3.2-5.0 [facility] Comment on above: Performed By: #### L 500.4050, L100.0100 ####[facility] [address] [place], [address] Albumin/Globulin [Mass ratio] 0.9 {ratio} Normal 0.9-2.4 [facility] Comment on above: Performed By: #### L 500.4050, L100.0100 ####[facility] [address] [place], [address] ALK P 71 U/L Normal 45-117 [facility] Comment on above: Performed By: #### L 500.4050, L100.0100 ####[facility] [address] [place], [address] ALT [Catalytic activity/Vol] 29 U/L Normal 13-56 [facility] Comment on above: Performed By: #### L 500.4050, L100.0100 ####[facility] [address] [place], [address] AST [Catalytic activity/Vol] 13 U/L Low 15-37 [facility] Comment on above: Performed By: #### L 500.4050, L100.0100 ####[facility] [address] [place], [address] Bilirubin [Mass/Vol] 0.30 mg/dL Normal 0.20-1.00 [facility] Comment on above: Result Comment: For patients on eltrombopag therapy, use of Dimension [place] TBIL is not recommended. Performed By: #### L 500.4050, L100.0100 ####[facility] [address] [place], [address] BUN/CRE 19.0 RATIO Normal 10-20 [facility] Comment on above: Performed By: #### L 500.4050, L100.0100 ####[facility] [address] [place], [address] CA,Total 9.2 mg/dL Normal 8.5-10.1 [facility] Comment on above: Performed By: #### L 500.4050, L100.0100 ####[facility] [address] [place], [address] Chloride [Moles/Vol] 102 mmol/L Normal 98-107 [facility] Comment on above: Performed By: #### L 500.4050, L100.0100 ####[facility] [address] [place], [address] CO2 [Moles/Vol] 32.0 mmol/L Normal 21.0-32.0 [facility] Comment on above: Performed By: #### L 500.4050, L100.0100 ####[facility] [address] [place], [address] Creatinine [Mass/Vol] 0.95 mg/dL Normal 0.55-1.02 [facility] Comment on above: Result Comment: The validity of the calculated GFR GFRAA in patients over 70 years has not been determined. Clinical correlation is essential. Performed By: #### L 500.4050, L100.0100 ####[facility] [address] [place], [address] EST GFR - AA 76 mL/min Normal >60 [facility] Comment on above: Result Comment: Afri can [place] GFR Calc Performed By: #### L 500.4050, L100.0100 ####[facility] [address] [place], [address] GAP 3 Low 5-15 [facility] Comment on above: Performed By: #### L 500.4050, L100.0100 ####[facility] [address] [place], [address] GFR/1.73 sq M.predicted among non-blacks MDRD (S/P/Bld) [Vol rate/Area] 63 mL/min/{1.73_m2} Normal >60 [facility] Comment on above: Result Comment: Non- GFR Calc Performed By: #### L 500.4050, L100.0100 ####[facility] [address] [place], [address] Globulin (S) [Mass/Vol] 3.9 g/dL Normal 2.2-4.2 [facility] Comment on above: Performed By: #### L 500.4050, L100.0100 ####[facility] [address] [place], [address] Glucose [Mass/Vol] 112 mg/dL High 74-106 [facility] Comment on above: Result Comment: Fast ing Glucose result from 100 to 125 mg/dL suggests IMPAIRED HOMEOSTASIS per A.D.A. criteria. Performed By: #### L 500.4050, L100.0100 ####[facility] [address] [place], [address] Potassium [Moles/Vol] 4.1 mmol/L Normal 3.5-5.1 [facility] Comment on above: Performed By: #### L 500.4050, L100.0100 ####[facility] [address] [place], [address] Sodium [Moles/Vol] 137 mmol/L Normal 136-145 [facility] Comment on above: Performed By: #### L 500.4050, L100.0100 ####[facility] [address] [place], [address] T PROT 7.3 g/dL Normal 6.4-8.2 [facility] Comment on above: Performed By: #### L 500.4050, L100.0100 ####[facility] [address] [place], [address] Urea nitrogen [Mass/Vol] 18 mg/dL Normal 7-18 [facility] Comment on above: Performed By: #### L 500.4050, L100.0100 ####[facility] [address] [place], [address] HIP, UNI W/ Pelvis 2-3 Views on 01-18-2024 HIP, UNI W/ Pelvis 2-3 Views [facility] [address] [place] [address] HIP, UNI W/ Pelvis 2-3 Views MR#: [id number] Acct: [id number] Name: ART BLUE Rep #: [id number] : 1955 F 68 From: Chevy Benitez MD PCP: Dr. Rajani Wharton MD Status: DEP AMB Study: HIP, UNI W/ Pelvis 2-3 Views Date of Exam: Exam# [id number] Ordering Dr: Jose Ramon Terry DO [id number] STUDY: X-RAY - PELVIS AND RIGHT HIP REASON FOR EXAM: Female, 68 years old. Pain. TECHNIQUE: 3 views of the pelvis and hip. COMPARISON: X-ray of the pelvis dated July 02, 2023 X-rays of the right hip dated December 25, 2022 FINDINGS: Normal bowel gas pattern with air seen to the rectosigmoid. Phleboliths. Clips projected over pelvis. Vascular calcification. Osteopenia. Mild lower lumbosacral spondylosis. Stable mild arthrosis of both sacroiliac joints. Stable mild arthrosis of the symphysis pubis. Moderate arthrosis of both hips unchanged.. RAD/HIP, UNI W/ Pelvis 2-3 Views IMPRESSION: Stable osteopenia with osteoarthritic changes as described. No interval acute abnormality or erosive changes. Electronically Signed: Chevy Benitez MD at 10:35 EDT , CC: Dr. Rajani Wharton MD; Dr. Jose Ramon Terry DO Tube Builder: Signed Normal [facility] Orthopedic Visit Reporton Orthopedic Visit Report [facility] [address] [facility] [address] [address] [place] [address] OFFICE VISIT Date of Service: 01/18/24 MR#: [id number] Acct: [id number] Name: ART BLUE Rep #: [id number] : 1955 Provider: Dr. Jose Ramon evans DO Age/Sex: 68/F [facility] [place] Status: Signed Intake Vital Signs 12/10/23 14:03 01/17/24 10:15 Height 5 ft 5 in 5 ft 5 in Weight: 245 lb BMI 40.7 BP 108/60 Blood Pressure Location Lt brachial Position Sitting Respiration 17 Pulse 90 Pulse Source Monitor Temp 97.8 F Temp Source Temporal Pulse Oximetry (%) 97 Oxygen Delivery Method room air Intake Visit Reasons: RIGHT HIP Chief Complaint: Accompanied by: Self Allergies amoxicillin Allergy (Mild, Verified 01/18/24 09:24) rash atorvastatin Adverse Reaction (Mild, Verified 01/18/24 09:24) myalgiias levofloxacin (From Levaquin) Adverse Reaction (Unknown, Verified 01/18/24 09:24) Nausea Medications ???Medication ???Instructions ???Recorded ???Confirmed ???Type ferrous sulfate 325 mg (65 mg 325 mg PO BID SUPPLEMENT 02/11/14 11/08/23 History iron) tablet multivitamin with folic acid 400 1 tab PO DAILY SUPPLEMENT 02/11/14 11/08/23 History mcg tablet omeprazole 20 mg capsule,delayed 20 mg PO BID REFLUX 02/11/14 01/18/24 History release trazodone 50 mg tablet 50 mg PO QHS SLEEP 02/11/14 01/18/24 History biotin 10,000 mcg capsule 10,000 mcg PO DAILY HAIR LOSS 05/30/21 11/08/23 History buspirone 5 mg tablet 5 mg PO TID PRN anxiety 05/30/21 11/08/23 History calcium carbonate 600 mg-vitamin 1 cap PO BID 05/30/21 11/08/23 History D3 12.5 mcg (500 unit) capsule (Calcium 600 with Vitamin D3) metformin 1,000 mg tablet 500 mg PO BID 05/30/21 01/18/24 History lisinopril 20 1 tab PO DAILY BP 01/23/23 01/18/24 History mg-hydrochlorothiazi de 25 mg tablet warfarin 5 mg tablet () 7.5 mg PO DAILY 01/23/23 01/18/24 History tramadol 50 mg tablet 50 mg PO Q6H PRN Pain Score 6-10 01/25/23 11/08/23 Rx #25 tabs prednisone 10 mg tablets in a dose See Rx Instructions PO PER PKG DIR 03/11/23 11/08/23 Rx pack #21 tabs meclizine 25 mg tablet 25 mg PO BID PRN dizziness #180 07/10/23 01/18/24 Rx tabs ropinirole 2 mg tablet 2 mg PO QHS #90 tabs 11/06/23 01/18/24 Rx tizanidine 4 mg tablet 8 mg (2 x 4 mg) PO QHS muscle 11/06/23 11/08/23 Rx spasticity/leg restlessness #180 tabs cephalexin 250 mg capsule 250 mg PO QHS 01/18/24 01/18/24 History duloxetine 60 mg capsule,delayed 60 mg PO DAILY 01/18/24 01/18/24 History release (Cymbalta) estradiol 0.01% (0.1 mg/gram) vaginal 01/18/24 01/18/24 History vaginal cream gabapentin 300 mg capsule 300 mg PO DAILY 01/18/24 01/18/24 History hydroxychloroquine 200 mg tablet 200 mg PO BID 01/18/24 01/18/24 History hydroxychloroquine 200 mg tablet 200 mg PO DAILY 01/18/24 01/18/24 History (Plaquenil) Have you fallen in the past year?: No [facility] Medical History Contact with or exposure to other viral diseases Preop testing Post-menopausal Wears glasses Depression Anemia Pulmonary embolism DVT (deep venous thrombosis) History of ulceration CPAP (continuous positive airway pressure) dependence Sleep apnea Former smoker Shortness of breath on exertion Leg cramps History of edema History of stress test ( 04/06/20) Hypoxia Pneumonia Right hip pain History of iron deficiency Fatigue Claustrophobia Mild cognitive impairment Peripheral vestibulopathy Encounter for screening for COVID-19 Cerebrovascular small vessel disease Cerebral convexity meningioma Neuropathy History of pneumonia History of kidney stones High cholesterol Glaucoma History of UTI Cervical radiculitis History of DVT (deep vein thrombosis) Diabetes Anxiety and depression HTN (hypertension) Gastric ulcer GERD (gastroesophageal reflux disease) Renal calculus, bilateral Surgical History Status post biopsy of thyroid gland ( 08/2019) History of colonoscopy ( 2014) History of dilation and curettage History of carpal tunnel release of both wrists Status post panniculectomy History of [place]-en-Y gastric bypass History of umbilical hernia repair Family History Mother Heart disease Hypertension Father Heart disease CVA (cerebral vascular accident) Brother Cancer Social History household members: spouse housing: house Smoking Status: Never smoker Tobacco: How many years used: 40 Electronic Cigarette Use: not used how long ago did patient quit smoking: about a year and half ago second hand exposure: No al (more content not included)... Normal [facility] Office Visit Reporton 2023 Office Visit Report [facility] [address] [place] [address] OFFICE VISIT Date of Service: 01/17/24 MR#: [id number] Acct: [id number] Patient: ART BLUE Rep #: [id number] : 1955 Provider: Dr. Gilberto maynard MD Age/Sex: 68/F Location: [facility] [place] Status: Signed Intake Vital Signs 11/06/23 13:53 12/10/23 14:03 01/17/24 10:15 Height 5 ft 5 in 5 ft 5 in 5 ft 5 in Weight: 241 lb 6 oz 245 lb BMI 40.1 40.7 BP 102/60 108/60 Blood Pressure Location Lt brachial Lt brachial Position Sitting Sitting Respiration 17 17 Pulse 88 90 Pulse Source Monitor Monitor Temp 97.8 F 97.8 F Temp Source Temporal Temporal Pulse Oximetry (%) 96 97 Oxygen Delivery Method room air room air Intake Visit Reasons: B12 inject Chief Complaint: Allergies amoxicillin Allergy (Mild, Verified 11/23/23 10:22) rash atorvastatin Adverse Reaction (Mild, Verified 11/23/23 10:22) myalgiias levofloxacin (From Levaquin) Adverse Reaction (Unknown, Verified 11/23/23 10:22) Nausea Have you fallen in the past year?: No Office Meds cyanocobalamin (vitamin B-12) 1,000 mcg/mL injection solution Performing Provider: Gilberto Rasmussen MD Performing Location: [facility] Administered by: Chinyerealexandre Mandel on 01/17/24 10:24 Dose Route Admin Location Dispensed Lot Number Expiration Date [facility] Man ufacturer 1,500 mcg IM LEFT DELTOID 1.5 mL [id number] 04/21/26 [id number] SORAYA HENSON Comments: The patient presents for B12 injection for treatment of fatigue. She has fatigue. Her last B12 injection was of benefit for fatigue. The patient is awake and alert. B12 1500mcg IM was administered today. There were no complications. Assessment and Plan Assessment and Plan (1) Fatigue: Status: Chronic Qualifiers: Fatigue type: chronic, unspecified Qualified Code(s): R53.82 - Chronic fatigue, unspecified Orders: Orders Vitamin B12 Today R53.82 - Chronic fatigue, unspecified Clinical Quality Measures Falls Risk Screening/Assistive Devices Have you fallen in the past year?: No 01/17/24 1418 Date Gilberto Rasmussen MD Cosigner Signature: Date (if applicable) CC: Normal [facility] Re-Evaluation - PT (1)on Re-Evaluation - PT (1) [facility] Physical Therapy Health[address] [place] [address] / REEVALUATION / MEDICARE RECERTIFICATION PHYSICAL THERAPY MR#: [id number] Acct: [id number] Name: ART BLUE Rep #: [id number] : 1955 68 From: Isabella Garcia PT, Cert. MDT Referring Dr.: Dr. Juve Johnson MD Status:REG RCR Insurance: MEDICARE PART A B [facility] Re-Evaluation Intro: Dr. Juve Johnson MD, It has been my pleasure to treat ART BLUE over the last 8 visits for LUMBAR RADICULOPATHY. Please see the progress note below for an update on the physical therapy plan of care! Subjective Subjective: PATIENT REPORTS THE WATER EX HAS BEEN HELPING HER ANA CALF PAIN. SHE REPORTS SHE FEELS STRONGER AND HER BALANCE EVEN FEELS BETTER. APPT WITH DR. TERRY NEXT SUNDAY FOR R HIP PAIN (HAS BEEN 1 YEAR SINCE SHE SAW HIM). STATES HER R HIP PAIN IS CONTINUING TO GET WORSE DESPITE THE WATER THERAPY. Objective Objective/Function: THIS PATIENT PRESENTS TO PT LIMPING ON HER R LE. SHE REPORTS SHE HAS A CANE AND A WALKER AT HOME AND SHE USES THEM OFF AND ON IN THE HOUSE BUT NOT OUT IN PUBLIC. SHE STATES SHE DOESN'T REALLY KNOW HOW TO USE THEM. UPON EXAM TODAY HER TEST RESULTS ARE SIMILAR TO INITIAL EVAL EXCEPT SHE IS HAVING GREATER PAIN, WEAKNESS AND STIFFNESS IN THE R HIP. ROM deficit: TIGHT ANA HIP ROTATORS AND C/O R GROIN PAIN WITH R HIP TESTING IR > ER. Motor deficit: R LE: HIP 3+/5, KNEE 4/5, ANKLE 5/5. L LE: HIP 4/5, KNEE 4/5, ANKLE 5/5. Dural Signs: NEGATIVE ANA LE'S. Lumbar mvmt loss: flex - MOD. ext - BELEN. R SG - MOD. L SG - MOD. PATIENT C/O INCREASED R GROIN PAIN WITH LUMBAR ROM TESTING INTO L SG AND R LATERAL HIP PAIN WITH LUMBAR FLEXION TESTING TODAY. Core strength: FAIR Palpation: TENDERNESS WITH PALPATION OF R LATERAL HIP REGION. 30 SEC STS TEST: NT DUE TO R HIP PAIN TODAY. ABLE TO TRANSFER SIT TO STAND WITH ONE UE ASSIST BUT INCREASES R HIP PAIN. PATIENT RECEPTIVE TO GAIT TRAINING AND DEMO'S MUCH IMPROVED GAIT PATTERN AND PAIN REDUCTION WITH USE OF CANE. Plan Plan Plan: HOLD PT PENDING OUTCOME OF ORTHO CONSULT. PATIENT AGREEABLE. RE-CHECK WITH PT IF FURTHER PT ORDERED FOR NEW POC. Balance/Gait/Functio nal tests Balance/Special Test Scores Oswestry Low Back Score: 21 Goals Goals Goal 1:: DECREASE C/O LOW BACK AND ANA LE PAIN BY AT LEAST 25% TO EASE ADL'S. Goal Time Frame: 4-6 Weeks Goal Progress: R HIP IS GETTING WORSE Goal 2:: PATIENT WILL COMPLETE 8 STANDS IN 30 SECS WITHOUT UE ASSIST TO DEMONSTRATE IMPROVED FUNCTIONAL STRENGTH Goal Time Frame: 4-6 Weeks Goal Progress: Not Progressing Goal 3:: PATIENT WILL SCORE AT LEAST 5 POINTS HIGHER ON THE BACK OSWESTRY QUESTIONNAIRE Goal Time Frame: 4-6 Weeks Goal Progress: Not Progressing Goal 4:: PATIENT WILL BE INDEP WITH A WATER AND/OR HEP FOR CONTINUED IMPROVEMENT ONCE FORMAL PHYSICAL THERAPY CONCLUDES. Goal Time Frame: 4-6 Weeks Goal Progress: Not Progressing Anticipated Interventions Anticipated Interventions Patient/Client Instruction: Educate patient on: Condition, Plan of Care and Risk Factors For the Purpose of:: To improve self management Therapeutic Exercise to Include: Strength training, Body mechanics, Postural training, Flexibilty training, Neuromotor development, In an aquatic setting and Dynamic Lumbar Stabilization For the Purpose of:: To decrease pain, To improve muscle performance and motor function, To increase tolerance to activity/condition/p osition, To improve ability of physical actions for home/community/work/ leisure, To improve gait and locomotor functions and To increase flexibility/ROM Re-Evaluation Ending Re-evaluation ending: Please do not hesitate to contact me at [phone] by phone or if you have questions or concerns regarding this new plan of care! Sincerely, Isabella Garcia, PT, Cert MDT 01/11/24 1202 CC: Dr. Juve Johnson MD; Dr. Rajani Wharton MD RYAN Signed For Medicare only, by signing this I certify the plan of care. Physicians Signature Date Normal [facility] Absolute lymphocyte countOrd ered By: Doris Yip on 11-20-2023 Lymphocytes Auto (Unsp spec) [#/Vol] 3.19 10*3/uL 0.83-4.51 [facility] Automated lymphocyte count a s percentage of total leukocytesOrdered By: Doris Yip on 11-20-2023 Lymphocytes/100 WBC Auto (Unsp spec) 35.2 % 19-41 [facility] Basophil percentageOrdered B y: Doris Yip on 11-20-2023 Basophils/100 WBC (Bld) 0.4 % 0-1 [facility] Bilirubin [Mass/Vol] 0.30 mg/dL 0.20-1.00 [facility] Comment on above: For patients on eltr ombopag therapy, use of Dimension [place] TBIL is not recommended. Chloride [Moles/Vol] 102 mmol/L 98-107 [facility] Eosinophils/100 WBC (Bld) 1.7 % 0-5 [facility] Glucose [Mass/Vol] 177 mg/dL 74-106 [facility] Comment on above: Fasting Glucose resu lt greater than or equal to 126 mg/dL suggests DIABETES MELLITUS per A.D.A. criteria. Hemoglobin (Bld) [Mass/Vol] 12.2 g/dL 12.0-15. 0 [facility] Monocytes/100 WBC (Bld) 5.5 % 0-10 [facility] Neutrophils (Bld) [#/Vol] 5.1 10*3/uL 2.0-7.7 [facility] Neutrophils/100 WBC (Bld) 56.6 % 47-70 [facility] Potassium [Moles/Vol] 4.0 mmol/L 3.5-5.1 [facility] Protein [Mass/Vol] 7.5 g/dL 6.4-8.2 [facility] Sodium [Moles/Vol] 135 mmol/L 136-145 [facility] WBC (Bld) [#/Vol] 9.1 10*3/uL 4.4-11.0 [facility] Determination of erythrocyte mean corpuscular volume (MCV)Ordered By: Doris Yip on 11-20-2023 MCV (RBC) [Entitic vol] 92.5 fL 81-99 [facility] Erythrocyte distribution wid th ratioOrdered By: Doris Yip on 11-20-2023 Erythrocyte distribution width (RBC) [Ratio] 13.5 % 11.6-14.6 [facility] Erythrocyte distribution wid th standard deviationOrdered By: Doris Yip on 11-20-2023 Erythrocyte distribution width (RBC) [Entitic vol] 45.8 fL 35.1-43.9 [facility] Hematocrit Auto (Bld) [Volum e fraction]Ordered By: Doris Yip on 11-20-2023 Hematocrit (Bld) [Volume fraction] 38.0 % 37-47 [facility] Immature granulocytes/100 WB C Auto (Bld)Ordered By: Dorisasher Yip on 11-20-2023 Immature granulocytes/100 WBC (Bld) 0.600 % 0.0-0.9 [facility] Comment on above: IG% - Immature Granu locytes (promyelocytes, myelocytes and metamyelocytes) > 1% indicates that a LEFT SHIFT is Present. Laboratory - Chemistry and C hemistry - challengeOrdered By: [facility] Theodora on 11-20-2023 Albumin/Globulin [Mass ratio] 0.8 {ratio} 0.9-2.4 [facility] ALP [Catalytic activity/Vol] 61 U/L 45-117 [facility] ALT [Catalytic activity/Vol] 27 U/L 13-56 [facility] CO2 [Moles/Vol] 27.0 mmol/L 21.0-32.0 [facility] Globulin (S) [Mass/Vol] 4.1 g/dL 2.2-4.2 [facility] Urea nitrogen/Creatinine [Mass ratio] 33.2 mg/mg 10-20 [facility] Laboratory - Hematology and Cell countsOrdered By: Dorisasher Yip on 11-20-2023 MCH (RBC) [Entitic mass] 29.7 pg 27.0-32.0 [facility] MCHC (RBC) [Mass/Vol] 32.1 g/dL 32-36 [facility] Nucleated RBC/100 WBC (Bld) [Ratio] 0 % 0-5 [facility] Platelet mean volume (Bld) [Entitic vol] 9.8 fL 6.2-12.0 [facility] Platelets (Bld) [#/Vol] 309 10*3/uL 150-450 [facility] No Panel InformationOrdered By: Doris Yip on 11-20-2023 Estimated GFR (MDRD) Amer 72 mL/min >60 [facility] Comment on above: GFR Calc Estimated GFR (MDRD) Non-Af Amer 59 mL/min >60 [facility] Comment on above: Non- GFR Calc RBC Auto (Bld) [#/Vol]Ordere d By: Doris Yip on 11-20-2023 RBC (Bld) [#/Vol] 4.11 10*6/uL 4.2-5.4 [facility] Serum or plasma calcium jatin urement (mass/volume)Ordered By: Doris Yip on 11-20-2023 Calcium [Mass/Vol] 9.2 mg/dL 8.5-10.1 [facility] Serum or plasma creatinine m easurement (mass/volume)Ordered By: Doris Yip on 11-20-2023 Creatinine [Mass/Vol] 1.00 mg/dL 0.55-1.02 [facility] Comment on above: The validity of the calculated GFR & GFRAA in patients over 70 years has not been determined. Clinical correlation is essential. Serum or plasma urea nitroge n measurement (mass/volume)Ordered By: Doris Yip on 11-20-2023 Urea nitrogen [Mass/Vol] 33 mg/dL 7-18 [facility] Thin prep Papanicolaou smear with manual screeningOrdered By: Doris Yip on 11-20-2023 Thin prep Papanicolaou smear with manual screening 3.4 g/dL 3.2-5.0 [facility] Thin prep Papanicolaou smear with manual screening 16 U/L 15-37 [facility] Thin prep Papanicolaou smear with manual screening 6 5-15 [facility] Absolute lymphocyte countOrd ered By: Doris Yip on 10-19-2023 Lymphocytes Auto (Unsp spec) [#/Vol] 2.50 10*3/uL 0.83-4.51 [facility] Automated lymphocyte count a s percentage of total leukocytesOrdered By: Doris Yip on 10-19-2023 Lymphocytes/100 WBC Auto (Unsp spec) 35.4 % 19-41 [facility] Basophil percentageOrdered B y: Bernard Dawn on 10-19-2023 Basophil percentage 10-25 SEEN /hpf 0-5 [facility] Basophil percentageOrdered B y: Doris Yip on 10-19-2023 Basophils/100 WBC (Bld) 0.7 % 0-1 [facility] Bilirubin [Mass/Vol] 0.50 mg/dL 0.20-1.00 [facility] Comment on above: For patients on eltr ombopag therapy, use of Dim[place] TBIL is not recommended. Chloride [Moles/Vol] 101 mmol/L 98-107 [facility] Eosinophils/100 WBC (Bld) 1.7 % 0-5 [facility] Glucose [Mass/Vol] 153 mg/dL 74-106 [facility] Comment on above: Fasting Glucose resu lt greater than or equal to 126 mg/dL suggests DIABETES MELLITUS per A.D.A. criteria. Hemoglobin (Bld) [Mass/Vol] 12.2 g/dL 12.0-15. 0 [facility] Monocytes/100 WBC (Bld) 5.9 % 0-10 [facility] Neutrophils (Bld) [#/Vol] 3.9 10*3/uL 2.0-7.7 [facility] Neutrophils/100 WBC (Bld) 55.9 % 47-70 [facility] Potassium [Moles/Vol] 3.8 mmol/L 3.5-5.1 [facility] Protein [Mass/Vol] 7.7 g/dL 6.4-8.2 [facility] Sodium [Moles/Vol] 138 mmol/L 136-145 [facility] WBC (Bld) [#/Vol] 7.1 10*3/uL 4.4-11.0 [facility] Bilirubin Test strip Ql (U)O rdered By: Bernard Dawn on 10-19-2023 Bilirubin Ql (U) 1 mg/dL Negative [facility] Comment on above: COLOR OF URINE MAY A FFECT DIPSTICK RESULTS. Culture, urineOrdered By: Karen Dawn on 10-19-2023 Bacteria identified Cx Nom (U) Mixed Gram Pos & Gram Neg Org [facility] Determination of erythrocyte mean corpuscular volume (MCV)Ordered By: Doris Yip on 10-19-2023 MCV (RBC) [Entitic vol] 93.6 fL 81-99 [facility] Erythrocyte distribution wid th ratioOrdered By: Doris Yip on 10-19-2023 Erythrocyte distribution width (RBC) [Ratio] 13.2 % 11.6-14.6 [facility] Erythrocyte distribution wid th standard deviationOrdered By: Dorisasher Yip on 10-19-2023 Erythrocyte distribution width (RBC) [Entitic vol] 45.4 fL 35.1-43.9 [facility] Hematocrit Auto (Bld) [Volum e fraction]Ordered By: Dorisasher Yip on 10-19-2023 Hematocrit (Bld) [Volume fraction] 38.1 % 37-47 [facility] Immature granulocytes/100 WB C Auto (Bld)Ordered By: [facility] Theodora on 10-19-2023 Immature granulocytes/100 WBC (Bld) 0.400 % 0.0-0.9 [facility] Comment on above: IG% - Immature Granu locytes (promyelocytes, myelocytes and metamyelocytes) > 1% indicates that a LEFT SHIFT is Present. Ketones Test strip Ql (U)Ord ered By: Bernard Dawn on 10-19-2023 Ketones Ql (U) 5 mg/dl Negative [facility] Laboratory - Chemistry and C hemistry - challengeon 10-19-2023 Bilirubin Ql (U) Negative [facility] Glucose Ql (U) Negative [facility] Ketones Ql (U) Negative [facility] pH (U) 6.0 [pH] [facility] Specific gravity (U) [Rel density] 1.030 [facility] Urobilinogen (U) [Mass/Vol] 0.7535274 mg/dL [facility] Laboratory - Chemistry and C hemistry - challengeOrdered By: Doris Yip on 10-19-2023 Albumin/Globulin [Mass ratio] 0.8 {ratio} 0.9-2.4 [facility] ALP [Catalytic activity/Vol] 67 U/L 45-117 [facility] ALT [Catalytic activity/Vol] 26 U/L 13-56 [facility] CO2 [Moles/Vol] 28.0 mmol/L 21.0-32.0 [facility] Globulin (S) [Mass/Vol] 4.2 g/dL 2.2-4.2 [facility] Urea nitrogen/Creatinine [Mass ratio] 19.8 mg/mg 10-20 [facility] Laboratory - Hematology and Cell countson 10-19-2023 Hemoglobin Ql (U) Hemolyzed [facility] Laboratory - Hematology and Cell countsOrdered By: Doris Yip on 10-19-2023 MCH (RBC) [Entitic mass] 30.0 pg 27.0-32.0 [facility] MCHC (RBC) [Mass/Vol] 32.0 g/dL 32-36 [facility] Nucleated RBC/100 WBC (Bld) [Ratio] 0 % 0-5 [facility] Platelet mean volume (Bld) [Entitic vol] 9.8 fL 6.2-12.0 [facility] Platelets (Bld) [#/Vol] 311 10*3/uL 150-450 [facility] Laboratory - Specimen inform ationon 10-19-2023 Clarity (U) Cloudy [facility] Color (U) RED [facility] Laboratory - Urinalysison Nitrite Ql (U) Negative [facility] Protein Ql (U) 2+ [facility] Mucus LM Ql (Urine sed)Order ed By: Bernard Dawn on 10-19-2023 Mucus Ql (Urine sed) 0 SEEN /hpf [facility] Nitrite Test strip Ql (U)Ord ered By: Bernard Dawn on 10-19-2023 Nitrite Ql (U) Positive Negative [facility] No Panel InformationOrdered By: Bernard Dawn on 10-19-2023 Urine RBC > 100 SEEN /hpf 0-5 [facility] No Panel Informationon 10-18 Urine Leukocytes Positive [facility] Urine Non-Hemolyzed Blood Large [facility] No Panel InformationOrdered By: Doris Yip on 10-19-2023 Estimated GFR (MDRD) Amer 75 mL/min >60 [facility] Comment on above: GFR Calc Estimated GFR (MDRD) Non-Af Amer 62 mL/min >60 [facility] Comment on above: Non- GFR Calc Protein Test strip Ql (U)Ord ered By: Bernard Dawn on 10-19-2023 Protein Ql (U) 100 mg/dl Negative [facility] RBC Auto (Bld) [#/Vol]Ordere d By: Doris Yip on 10-19-2023 RBC (Bld) [#/Vol] 4.07 10*6/uL 4.2-5.4 [facility] Serum or plasma calcium jatin urement (mass/volume)Ordered By: Doris Yip on 10-19-2023 Calcium [Mass/Vol] 9.1 mg/dL 8.5-10.1 [facility] Serum or plasma creatinine m easurement (mass/volume)Ordered By: Doris Yip on 10-19-2023 Creatinine [Mass/Vol] 0.96 mg/dL 0.55-1.02 [facility] Comment on above: The validity of the calculated GFR & GFRAA in patients over 70 years has not been determined. Clinical correlation is essential. Serum or plasma thyroid stim ulating hormone (TSH) measurement (units/volume)Ordered By: Doris Yip on 10-19-2023 TSH Qn 1.23 uIU/mL 0.358-3.74 [facility] Serum or plasma urea nitroge n measurement (mass/volume)Ordered By: Doris Yip on 10-19-2023 Urea nitrogen [Mass/Vol] 19 mg/dL 7-18 [facility] Squamous epithelial cells de tection in urine sediment by light microscopyOrdered By: Bernard Dawn on 10-19-2023 Epithelial cells.squamous LM Ql (Urine sed) 0 SEEN /hpf 5-10 [facility] Thin prep Papanicolaou smear with manual screeningOrdered By: Doris Yip on 10-19-2023 Thin prep Papanicolaou smear with manual screening 3.5 g/dL 3.2-5.0 [facility] Thin prep Papanicolaou smear with manual screening 18 U/L 15-37 [facility] Thin prep Papanicolaou smear with manual screening 9 5-15 [facility] Urine blood detectionOrdered By: Bernard Dawn on 10-19-2023 RBC Ql (U) 250 /ul Negative [facility] Urine clarityOrdered By: Constantine Dawn on 10-19-2023 Clarity (U) Cloudy Clear [facility] Urine color determinationOrd ered By: Bernard Dawn on 10-19-2023 Color (U) SEE COMMENT BELOW Yellow [facility] Comment on above: Visual Urine Color: YELLOW RED Urine glucose detectionOrder ed By: Bernard Dawn on 10-19-2023 Glucose Ql (U) Normal mg/dl Normal [facility] Urine leukocyte esterase det ection by dipstickOrdered By: Bernard Dawn on 10-19-2023 Leukocyte esterase Test strip Ql (U) 100 /ul Negative [facility] Urine pHOrdered By: Bernard morales on 10-19-2023 pH (U) 5.0 [pH] 5.0 - 8.0 [facility] Urine sediment bacteria coun t by microscopy (number/high power field)Ordered By: Bernard Dawn on 10-19-2023 Bacteria LM.HPF (Urine sed) [#/Area] 0 /[HPF] None Seen [facility] Urine specific gravity measu rementOrdered By: Bernard Dawn on 10-19-2023 Specific gravity (U) [Rel density] 1.015 1.002-1.030 [facility] Urine urobilinogen measureme ntOrdered By: Bernard Dawn on 10-19-2023 Urobilinogen Ql (U) 1 mg/dl Normal [facility] Basophil percentageOrdered B y: Jose Ramon Mckenzie on 10-08-2023 Basophil percentage 0-5 SEEN /hpf 0-5 [facility] Bilirubin Test strip Ql (U)O rdered By: Jose Ramon Mckenzie on 10-08-2023 Bilirubin Ql (U) Negative Negative [facility] Epithelial cells.squamous LM Ql (Urine sed)Ordered By: Jose Ramon Mckenzie on 10-08-2023 Epithelial cells.squamous LM.HPF (Urine sed) [#/Area] 0 /[HPF] 5-10 [facility] Glucose Ql (U)Ordered By: Lilly Mckenzie on 10-08-2023 Urine Glucose (UA) Normal mg/dl Normal [facility] Ketones Test strip Ql (U)Ord ered By: Jose Ramon Mckenzie on 10-08-2023 Ketones Ql (U) Negative Negative [facility] Microscopic analysis of urin e for red blood cells (RBC)Ordered By: Jose Ramon Mckenzie on 10-08-2023 Microscopic analysis of urine for red blood cells (RBC) 0-5 SEEN /hpf 0-5 [facility] Urine RBC 0-5 SEEN /hpf 0-5 [facility] Mucus LM Ql (Urine sed)Order ed By: Jose Ramon Mckenzie on 10-08-2023 Mucus Ql (Urine sed) 0 SEEN /hpf [facility] Nitrite Test strip Ql (U)Ord ered By: Jose Ramon Mckenzie on 10-08-2023 Nitrite Ql (U) Negative Negative [facility] Protein Test strip Ql (U)Ord ered By: Jose Ramon Mckenzie on 10-08-2023 Protein Ql (U) 15 mg/dl High Negative [facility] Squamous epithelial cells de tection in urine sediment by light microscopyOrdered By: Jose Ramon Mckenzie on 10-08-2023 Epithelial cells.squamous LM Ql (Urine sed) 0-5 SEEN /hpf 5-10 [facility] Urine blood detectionOrdered By: Jose Ramon Mckenzie on 10-08-2023 RBC Ql (U) 10 /ul Negative [facility] Urine Occult Blood 10 /ul High Negative [facility] Urine clarityOrdered By: Eugene Mckenzie on 10-08-2023 Clarity (U) Sl. Cloudy Clear [facility] Urine color determinationOrd ered By: Jose Ramon Mckenzie on 10-08-2023 Color (U) Yellow Yellow [facility] Urine glucose detectionOrder ed By: Jose Ramon Mckenzie on 10-08-2023 Glucose Ql (U) Normal mg/dl Normal [facility] Urine leukocyte esterase det ection by dipstickOrdered By: Jose Ramon Mckenzie on 10-08-2023 Leukocyte esterase Test strip Ql (U) 25 /ul High Negative [facility] Urine pHOrdered By: Jose Ramon meyer on 10-08-2023 pH (U) 5.0 [pH] 5.0 - 8.0 [facility] Urine sediment bacteria coun t by microscopy (number/high power field)Ordered By: Jose Ramon Mckenzie on 10-08-2023 Bacteria LM.HPF (Urine sed) [#/Area] 0 /[HPF] None Seen [facility] Urine specific gravity measu rementOrdered By: Jose Ramon Mckenzie on 10-08-2023 Specific gravity (U) [Rel density] 1.015 1.002-1.030 [facility] Urine urobilinogen measureme ntOrdered By: Jose Ramon Mckenzie on 10-08-2023 Urobilinogen Ql (U) Normal mg/dl Normal [facility] Urobilinogen Ql (U)Ordered B y: Jose Ramon Mckenzie on 10-08-2023 Urine Urobilinogen Normal mg/dl Normal [facility] White blood cell countOrdere d By: Jose Ramon Mckenzie on 10-08-2023 Urine WBC 0-5 SEEN /hpf 0-5 [facility] Absolute lymphocyte countOrd ered By: Jose Ramon [facility] on 10-01-2023 Lymphocytes Auto (Unsp spec) [#/Vol] 2.62 10*3/uL 0.83-4.51 [facility] Albumin Elph [Mass/Vol]Order ed By: Jose Ramon [facility] on 10-01-2023 Albumin [Mass/Vol] 3.5 g/dL 2.9-4.4 [facility] Automated lymphocyte count a s percentage of total leukocytesOrdered By: Jose Ramon [place] on 10-01-2023 Lymphocytes/100 WBC Auto (Unsp spec) 34.5 % 19-41 [facility] Basophil percentageOrdered B y: Jose Ramon [facility] on 10-01-2023 Basophils/100 WBC (Bld) 0.5 % 0-1 [facility] Bilirubin [Mass/Vol] 0.50 mg/dL 0.20-1.00 [facility] Comment on above: For patients on eltr ombopag therapy, use of Dim[place] TBIL is not recommended. Chloride [Moles/Vol] 103 mmol/L 98-107 [facility] Eosinophils/100 WBC (Bld) 1.8 % 0-5 [facility] Glucose [Mass/Vol] 154 mg/dL 74-106 [facility] Comment on above: Fasting Glucose resu lt greater than or equal to 126 mg/dL suggests DIABETES MELLITUS per A.D.A. criteria. Hemoglobin (Bld) [Mass/Vol] 12.2 g/dL 12.0-15. 0 [facility] LDH [Catalytic activity/Vol] 158 U/L 84-246 [facility] Monocytes/100 WBC (Bld) 5.5 % 0-10 [facility] Neutrophils (Bld) [#/Vol] 4.3 10*3/uL 2.0-7.7 [facility] Neutrophils/100 WBC (Bld) 57.2 % 47-70 [facility] Potassium [Moles/Vol] 3.7 mmol/L 3.5-5.1 [facility] Protein [Mass/Vol] 7.8 g/dL 6.4-8.2 [facility] Sodium [Moles/Vol] 140 mmol/L 136-145 [facility] WBC (Bld) [#/Vol] 7.6 10*3/uL 4.4-11.0 [facility] Determination of erythrocyte mean corpuscular volume (MCV)Ordered By: Jose Ramon Mckenzie on 10-01-2023 MCV (RBC) [Entitic vol] 92.8 fL 81-99 [facility] Erythrocyte distribution wid th ratioOrdered By: Jose Ramon Mckenzie on 10-01-2023 Erythrocyte distribution width (RBC) [Ratio] 13.4 % 11.6-14.6 [facility] Erythrocyte distribution wid th standard deviationOrdered By: Jose Ramon Mckenzie on 10-01-2023 Erythrocyte distribution width (RBC) [Entitic vol] 45.7 fL 35.1-43.9 [facility] Hematocrit Auto (Bld) [Volum e fraction]Ordered By: Jose Ramon Mckenzie on 10-01-2023 Hematocrit (Bld) [Volume fraction] 37.1 % 37-47 [facility] Immature granulocytes/100 WB C Auto (Bld)Ordered By: Jose Ramon Mckenzie on 10-01-2023 Immature granulocytes/100 WBC (Bld) 0.500 % 0.0-0.9 [facility] Comment on above: IG% - Immature Granu locytes (promyelocytes, myelocytes and metamyelocytes) > 1% indicates that a LEFT SHIFT is Present. Interpretation of serum or p lasma protein pattern by immunofixation (narrative resultOrdered By: Jose Ramon Mckenzie on 10-01-2023 Protein Fractions Immunofixation Arnav [Interp] Not Observed g/dL Not Observed [facility] Laboratory - Chemistry and C hemistry - challengeOrdered By: Jose Ramon Mckenzie on 10-01-2023 Albumin/Globulin [Mass ratio] 0.8 {ratio} 0.9-2.4 [facility] ALP [Catalytic activity/Vol] 68 U/L 45-117 [facility] ALT [Catalytic activity/Vol] 27 U/L 13-56 [facility] CO2 [Moles/Vol] 32.0 mmol/L 21.0-32.0 [facility] Urea nitrogen/Creatinine [Mass ratio] 29.5 mg/mg 10-20 [facility] Laboratory - Hematology and Cell countsOrdered By: Jose Ramon Mckenzie on 10-01-2023 MCH (RBC) [Entitic mass] 30.5 pg 27.0-32.0 [facility] MCHC (RBC) [Mass/Vol] 32.9 g/dL 32-36 [facility] Nucleated RBC/100 WBC (Bld) [Ratio] 0 % 0-5 [facility] Platelet mean volume (Bld) [Entitic vol] 9.2 fL 6.2-12.0 [facility] Platelets (Bld) [#/Vol] 296 10*3/uL 150-450 [facility] No Panel InformationOrdered By: Jose Ramon Mckenzie on 10-01-2023 Addendum Document Comment . [facility] Comment on above: Protein electrophore sis scan will follow via computer,mail, or machine fastener delivery. Estimated Creatinine Clearance Calc 64.84 ml/min [facility] Estimated GFR (MDRD) Amer 67 mL/min >60 [facility] Comment on above: GFR Calc Estimated GFR (MDRD) Non-Af Amer 56 mL/min >60 [facility] Comment on above: Non- GFR Calc Free Lambda Light Chains, Quant 31.5 mg/L 5.7-26.3 [facility] Immunoglobulin M 112 mg/dL 26-217 [facility] RBC Auto (Bld) [#/Vol]Ordere d By: Jose Ramon Mckenzie on 10-01-2023 RBC (Bld) [#/Vol] 4.00 10*6/uL 4.2-5.4 [facility] Serum [id number]-[id number] measu rement by electrophoresisOrdered By: Jose Ramon Mckenzie on 10-01-2023 Alpha 1 globulin Elph [Mass/Vol] 0.2 g/dL 0.0-0.4 [facility] Alpha 1 globulin Elph [Mass/Vol] 1.0 g/dL 0.4-1.0 [facility] Serum globulin measurement ( mass/volume)Ordered By: Jose Ramon Mckenzie on 10-01-2023 Globulin (S) [Mass/Vol] 3.4 g/dL 2.2-3.9 [facility] Serum immunoglobulin kappa l ight chains/immunoglobulin lambda light chains mass ratioOrdered By: Jose Ramon Mckenzie on 10-01-2023 Immunoglobulin light chains.kappa/Immunoglobulin light chains.lambda (S) [Mass ratio] 1.32 0.26-1.65 [facility] Comment on above: Performed at: [address] [id number] Director: Herb Kincaid PhD, Phone: [phone] Serum or plasma IgA measurem ent (mass/volume)Ordered By: Jose Ramon Mckenzie on 10-01-2023 IgA [Mass/Vol] 192 mg/dL 87-352 [facility] Serum or plasma IgG measurem ent (mass/volume)Ordered By: Jose Ramon Mckenzie on 10-01-2023 IgG [Mass/Vol] 1099 mg/dL [phone] [facility] Serum or plasma beta globuli n measurement by electrophoresis (mass/volume)Ordered By: Jose Ramon Mckenzie on 10-01-2023 Beta globulin Elph [Mass/Vol] 1.1 g/dL 0.7-1.3 [facility] Serum or plasma calcium jatin urement (mass/volume)Ordered By: Jose Ramon Mckenzie on 10-01-2023 Calcium [Mass/Vol] 9.1 mg/dL 8.5-10.1 [facility] Serum or plasma creatinine m easurement (mass/volume)Ordered By: Jose Ramon Mckenzie on 10-01-2023 Creatinine [Mass/Vol] 1.05 mg/dL 0.55-1.02 [facility] Comment on above: The validity of the calculated GFR & GFRAA in patients over 70 years has not been determined. Clinical correlation is essential. Serum or plasma gamma globul in measurement by electrophoresis (mass/volume)Ordered By: Jose Ramon Mckenzie on 10-01-2023 Gamma globulin Elph [Mass/Vol] 1.1 g/dL 0.4-1.8 [facility] Serum or plasma immunoelectr ophoresis interpretation (nominal result)Ordered By: Jose Ramon Mckenzie on 10-01-2023 Interpretation IEP [Interp] Comment . [facility] Comment on above: No monoclonality det ected. Serum or plasma immunoglobul in kappa light chains measurement (mass/volume)Ordered By: Jose Ramon Mckenzie on 10-01-2023 Immunoglobulin light chains.kappa [Mass/Vol] 41.6 mg/L 3.3-19.4 [facility] Serum or plasma urea nitroge n measurement (mass/volume)Ordered By: Jose Ramon Mckenzie on 10-01-2023 Urea nitrogen [Mass/Vol] 31 mg/dL 7-18 [facility] Thin prep Papanicolaou smear with manual screeningOrdered By: Jose Ramon Mckenzie on 10-01-2023 Thin prep Papanicolaou smear with manual screening 3.4 g/dL 3.2-5.0 [facility] Thin prep Papanicolaou smear with manual screening 13 U/L 15-37 [facility] Thin prep Papanicolaou smear with manual screening 5 5-15 [facility] Thin prep Papanicolaou smear with manual screening 1.1 0.7-1.7 [facility] Total protein bloodOrdered B y: Jose Ramon Mckenzie on 10-01-2023 Protein [Mass/Vol] 6.9 g/dL 6.0-8.5 [facility] Absolute lymphocyte countOrd ered By: Jose Ramon Mckenzie on 09-24-2023 Lymphocytes Auto (Unsp spec) [#/Vol] 3.22 10*3/uL 0.83-4.51 [facility] Albumin Elph [Mass/Vol]Order ed By: Jose Ramon Mckenzie on 09-24-2023 Albumin [Mass/Vol] 3.7 g/dL 2.9-4.4 [facility] Automated lymphocyte count a s percentage of total leukocytesOrdered By: Jose Ramon Mckenzie on 09-24-2023 Lymphocytes/100 WBC Auto (Unsp spec) 35.4 % 19-41 [facility] Basophil percentageOrdered B y: Jose Ramon Mckenzie on 09-24-2023 Basophils/100 WBC (Bld) 0.7 % 0-1 [facility] Bilirubin [Mass/Vol] 0.50 mg/dL 0.20-1.00 [facility] Comment on above: For patients on eltr ombopag therapy, use of [place] TBIL is not recommended. Chloride [Moles/Vol] 100 mmol/L 98-107 [facility] Eosinophils/100 WBC (Bld) 1.5 % 0-5 [facility] Glucose [Mass/Vol] 120 mg/dL 74-106 [facility] Comment on above: Fasting Glucose resu lt from 100 to 125 mg/dL suggests IMPAIRED HOMEOSTASIS per A.D.A. criteria. Hemoglobin (Bld) [Mass/Vol] 13.0 g/dL 12.0-15. 0 [facility] LDH [Catalytic activity/Vol] 169 U/L 84-246 [facility] Monocytes/100 WBC (Bld) 6.1 % 0-10 [facility] Neutrophils (Bld) [#/Vol] 5.1 10*3/uL 2.0-7.7 [facility] Neutrophils/100 WBC (Bld) 55.7 % 47-70 [facility] Potassium [Moles/Vol] 4.2 mmol/L 3.5-5.1 [facility] Protein [Mass/Vol] 8.1 g/dL 6.4-8.2 [facility] Sodium [Moles/Vol] 136 mmol/L 136-145 [facility] WBC (Bld) [#/Vol] 9.1 10*3/uL 4.4-11.0 [facility] Determination of erythrocyte mean corpuscular volume (MCV)Ordered By: Jose Ramon Mckenzie on 09-24-2023 MCV (RBC) [Entitic vol] 92.6 fL 81-99 [facility] Erythrocyte distribution wid th ratioOrdered By: Jose Ramon Mckenzie on 09-24-2023 Erythrocyte distribution width (RBC) [Ratio] 13.5 % 11.6-14.6 [facility] Erythrocyte distribution wid th standard deviationOrdered By: Jose Ramon Mckenzie on 09-24-2023 Erythrocyte distribution width (RBC) [Entitic vol] 46.1 fL 35.1-43.9 [facility] Hematocrit Auto (Bld) [Volum e fraction]Ordered By: Jose Ramon Mckenzie on 09-24-2023 Hematocrit (Bld) [Volume fraction] 40.0 % 37-47 [facility] Immature granulocytes/100 WB C Auto (Bld)Ordered By: Jose Ramon Mckenzie on 09-24-2023 Immature granulocytes/100 WBC (Bld) 0.600 % 0.0-0.9 [facility] Comment on above: IG% - Immature Granu locytes (promyelocytes, myelocytes and metamyelocytes) > 1% indicates that a LEFT SHIFT is Present. Interpretation of serum or p lasma protein pattern by immunofixation (narrative resultOrdered By: Jose Ramon Mckenzie on 09-24-2023 Protein Fractions Immunofixation Arnav [Interp] Not Observed g/dL Not Observed [facility] Laboratory - Chemistry and C hemistry - challengeOrdered By: Jose Ramon Mckenzie on 09-24-2023 Albumin/Globulin [Mass ratio] 0.8 {ratio} 0.9-2.4 [facility] ALP [Catalytic activity/Vol] 70 U/L 45-117 [facility] ALT [Catalytic activity/Vol] 29 U/L 13-56 [facility] CO2 [Moles/Vol] 31.0 mmol/L 21.0-32.0 [facility] Urea nitrogen/Creatinine [Mass ratio] 31.0 mg/mg 10-20 [facility] Laboratory - Hematology and Cell countsOrdered By: Jose Ramon Mckenzie on 09-24-2023 MCH (RBC) [Entitic mass] 30.1 pg 27.0-32.0 [facility] MCHC (RBC) [Mass/Vol] 32.5 g/dL 32-36 [facility] Nucleated RBC/100 WBC (Bld) [Ratio] 0 % 0-5 [facility] Platelet mean volume (Bld) [Entitic vol] 9.7 fL 6.2-12.0 [facility] Platelets (Bld) [#/Vol] 339 10*3/uL 150-450 [facility] No Panel InformationOrdered By: Jose Ramon Mckenzie on 09-24-2023 Addendum Document Comment . [facility] Comment on above: Protein electrophore sis scan will follow via computer,mail, or machine fastener delivery. Estimated GFR (MDRD) Amer 71 mL/min >60 [facility] Comment on above: GFR Calc Estimated GFR (MDRD) Non-Af Amer 59 mL/min >60 [facility] Comment on above: Non- GFR Calc Free Lambda Light Chains, Quant 32.4 mg/L 5.7-26.3 [facility] Immunoglobulin M 124 mg/dL 26-217 [facility] RBC Auto (Bld) [#/Vol]Ordere d By: Jose Ramon Mckenzie on 09-24-2023 RBC (Bld) [#/Vol] 4.32 10*6/uL 4.2-5.4 [facility] Serum inaqe-0-cuwktnax measu rement by electrophoresisOrdered By: Jose Ramon Mckenzie on 09-24-2023 Alpha 1 globulin Elph [Mass/Vol] 0.3 g/dL 0.0-0.4 [facility] Alpha 1 globulin Elph [Mass/Vol] 1.0 g/dL 0.4-1.0 [facility] Serum globulin measurement ( mass/volume)Ordered By: Jose Ramon Mckenzie on 09-24-2023 Globulin (S) [Mass/Vol] 3.6 g/dL 2.2-3.9 [facility] Serum immunoglobulin kappa l ight chains/immunoglobulin lambda light chains mass ratioOrdered By: Jose Ramon Mckenzie on 09-24-2023 Immunoglobulin light chains.kappa/Immunoglobulin light chains.lambda (S) [Mass ratio] 1.34 0.26-1.65 [facility] Comment on above: Performed at: [address] [id number] Director: Herb Kincaid PhD, Phone: [phone] Serum or plasma IgA measurem ent (mass/volume)Ordered By: Jose Ramon Mckenzie on 09-24-2023 IgA [Mass/Vol] 208 mg/dL 87-352 [facility] Serum or plasma IgG measurem ent (mass/volume)Ordered By: Jose Ramon Mckenzie on 09-24-2023 IgG [Mass/Vol] 1235 mg/dL [phone] [facility] Serum or plasma beta globuli n measurement by electrophoresis (mass/volume)Ordered By: Jose Ramon Mckenzie on 09-24-2023 Beta globulin Elph [Mass/Vol] 1.1 g/dL 0.7-1.3 [facility] Serum or plasma calcium jatin urement (mass/volume)Ordered By: Jose Ramon Mckenzie on 09-24-2023 Calcium [Mass/Vol] 9.7 mg/dL 8.5-10.1 [facility] Serum or plasma creatinine m easurement (mass/volume)Ordered By: Jose Ramon Mckenzie on 09-24-2023 Creatinine [Mass/Vol] 1.00 mg/dL 0.55-1.02 [facility] Comment on above: The validity of the calculated GFR & GFRAA in patients over 70 years has not been determined. Clinical correlation is essential. Serum or plasma gamma globul in measurement by electrophoresis (mass/volume)Ordered By: Jose Ramon Mckenzie on 09-24-2023 Gamma globulin Elph [Mass/Vol] 1.2 g/dL 0.4-1.8 [facility] Serum or plasma immunoelectr ophoresis interpretation (nominal result)Ordered By: Jose Ramon Mckenzie on 09-24-2023 Interpretation IEP [Interp] Comment . [facility] Comment on above: No monoclonality det ected. Serum or plasma immunoglobul in kappa light chains measurement (mass/volume)Ordered By: Jose Ramon Mckenzie on 09-24-2023 Immunoglobulin light chains.kappa [Mass/Vol] 43.3 mg/L 3.3-19.4 [facility] Serum or plasma urea nitroge n measurement (mass/volume)Ordered By: Jose Ramon Mckenzie on 09-24-2023 Urea nitrogen [Mass/Vol] 31 mg/dL 7-18 [facility] Thin prep Papanicolaou smear with manual screeningOrdered By: Jose Ramon Mckenzie on 09-24-2023 Thin prep Papanicolaou smear with manual screening 3.7 g/dL 3.2-5.0 [facility] Thin prep Papanicolaou smear with manual screening 20 U/L 15-37 [facility] Thin prep Papanicolaou smear with manual screening 5 5-15 [facility] Thin prep Papanicolaou smear with manual screening 1.1 0.7-1.7 [facility] Total protein bloodOrdered B y: Jose Ramon Mckenzie on 09-24-2023 Protein [Mass/Vol] 7.3 g/dL 6.0-8.5 [facility] Laboratory - Chemistry and C hemistry - challengeon 07-25-2023 Bilirubin Ql (U) Negative [facility] Glucose Ql (U) Negative [facility] Ketones Ql (U) Negative [facility] pH (U) 6.5 [pH] [facility] Specific gravity (U) [Rel density] 1.010 [facility] Urobilinogen (U) [Mass/Vol] Negative [facility] Laboratory - Hematology and Cell countson 07-25-2023 Hemoglobin Ql (U) Negative [facility] Laboratory - Specimen inform ationon 07-25-2023 Clarity (U) Clear [facility] Color (U) YELLOW [facility] Laboratory - Urinalysison Nitrite Ql (U) Negative [facility] Protein Ql (U) Negative [facility] No Panel Informationon 07-25 Influenza Types A,B Rapid (Clinic) Negative [facility] POC SARS CoV-2 Antigen Negative [facility] Urine Leukocytes Positive [facility] Urine Non-Hemolyzed Blood [facility] Absolute lymphocyte countOrd ered By: Doris Yip on 07-02-2023 Lymphocytes Auto (Unsp spec) [#/Vol] 2.19 10*3/uL 0.83-4.51 [facility] Basophil percentageOrdered B y: Doris Yip on 07-02-2023 Basophils/100 WBC (Bld) 0.5 % 0-1 [facility] Bilirubin [Mass/Vol] 0.30 mg/dL 0.20-1.00 [facility] Comment on above: For patients on eltr ombopag therapy, use of Dim[place] TBIL is not recommended. Chloride [Moles/Vol] 104 mmol/L 98-107 [facility] Eosinophils/100 WBC (Bld) 1.3 % 0-5 [facility] Glucose [Mass/Vol] 174 mg/dL 74-106 [facility] Comment on above: Fasting Glucose resu lt greater than or equal to 126 mg/dL suggests DIABETES MELLITUS per A.D.A. criteria. Neutrophils (Bld) [#/Vol] 5.7 10*3/uL 2.0-7.7 [facility] Neutrophils/100 WBC (Bld) 66.2 % 47-70 [facility] Potassium [Moles/Vol] 4.0 mmol/L 3.5-5.1 [facility] Protein [Mass/Vol] 7.4 g/dL 6.4-8.2 [facility] Sodium [Moles/Vol] 138 mmol/L 136-145 [facility] WBC (Bld) [#/Vol] 8.6 10*3/uL 4.4-11.0 [facility] Bilirubin Test strip Ql (U)O rdered By: Doris Yip on 07-02-2023 Bilirubin Ql (U) Negative Negative [facility] Blood erythrocytes count (nu mber/volume)Ordered By: Doris Yip on 07-02-2023 RBC (Bld) [#/Vol] 4.35 10*6/uL 4.2-5.4 [facility] Blood hemoglobin measurement (mass/volume)Ordered By: Doris Yip on 07-02-2023 Hemoglobin (Bld) [Mass/Vol] 12.4 g/dL 12.0-15. 0 [facility] Blood lymphocytes/100 leukoc ytesOrdered By: Doris Yip on 07-02-2023 Lymphocytes/100 WBC (Bld) 25.5 % 19-41 [facility] Blood monocytes/100 leukocyt esOrdered By: Doris Yip on 07-02-2023 Monocytes/100 WBC (Bld) 5.9 % 0-10 [facility] Blood platelet mean volumeOr dered By: Doris Yip on 07-02-2023 Platelet mean volume (Bld) [Entitic vol] 9.8 fL 6.2-12.0 [facility] Determination of erythrocyte mean corpuscular volume (MCV)Ordered By: Doris Yip on 07-02-2023 MCV (RBC) [Entitic vol] 89.9 fL 81-99 [facility] Erythrocyte sedimentation ra teOrdered By: Doris Yip on 07-02-2023 ESR (Bld) [Velocity] 29 mm/h 0-30 [facility] Hematocrit Auto (Bld) [Volum e fraction]Ordered By: Doris Yip on 07-02-2023 Hematocrit (Bld) [Volume fraction] 39.1 % 37-47 [facility] Ketones Test strip Ql (U)Ord ered By: Doris Yip on 07-02-2023 Ketones Ql (U) Negative Negative [facility] Laboratory - Chemistry and C hemistry - challengeOrdered By: Doris Yip on 07-02-2023 ALP [Catalytic activity/Vol] 66 U/L 45-117 [facility] ALT [Catalytic activity/Vol] 28 U/L 13-56 [facility] CO2 [Moles/Vol] 27.0 mmol/L 21.0-32.0 [facility] Globulin (S) [Mass/Vol] 4.1 g/dL 2.2-4.2 [facility] Urea nitrogen/Creatinine [Mass ratio] 26.0 mg/mg 10-20 [facility] Laboratory - Hematology and Cell countsOrdered By: Doris Yip on 07-02-2023 Erythrocyte distribution width (RBC) [Entitic vol] 51.2 fL 35.1-43.9 [facility] Erythrocyte distribution width (RBC) [Ratio] 15.4 % 11.6-14.6 [facility] Immature granulocytes/100 WBC (Bld) 0.600 % 0.0-0.9 [facility] Comment on above: IG% - Immature Granu locytes (promyelocytes, myelocytes and metamyelocytes) > 1% indicates that a LEFT SHIFT is Present. MCH (RBC) [Entitic mass] 28.5 pg 27.0-32.0 [facility] Nucleated RBC/100 WBC (Bld) [Ratio] 0 % 0-5 [facility] MCHC Auto (RBC) [Mass/Vol]Or dered By: Doris Yip on 07-02-2023 MCHC (RBC) [Mass/Vol] 31.7 g/dL 32-36 [facility] Nitrite Test strip Ql (U)Ord ered By: Doris Yip on 07-02-2023 Nitrite Ql (U) Negative Negative [facility] No Panel InformationOrdered By: Doris Yip on 07-02-2023 Miscellaneous Test Comment MAILED SPECIMEN [facility] Estimated GFR (MDRD) Amer 78 mL/min >60 [facility] Comment on above: GFR Calc Estimated GFR (MDRD) Non-Af Amer 65 mL/min >60 [facility] Comment on above: Non- GFR Calc Hepatitis B Surface Antigen Non-Reactive Nonrea ctive [facility] Hepatitis C Antibody Non-Reactive Nonreactive [facility] [facility] Comment on above: Non Reactive: < 0.8 Equivocal: >/= 0.8 to < 1.0 Reactive: >/= 1.0The CDC recommends that a reactive/equivocal HCV antibody result be followed up by the HCV Nucleic Acid Amplificationtest (445593) Platelets bldOrdered By: Liyah Yip on 07-02-2023 Platelets (Bld) [#/Vol] 298 10*3/uL 150-450 [facility] Protein Test strip Ql (U)Ord ered By: Doris Yip on 07-02-2023 Protein Ql (U) Negative Negative [facility] Serum hepatitis B virus surf regi antibody IgG detectionOrdered By: Doris Yip on 07-02-2023 HBV surface IgG Ql (S) Non-Reactive [facility] Comment on above: Non Reactive: Incons istent with immunity less than <10 mIU/mL Reactive: Consistent with immunity greater than or equal to 10 mIU/mL Serum or plasma C reactive p rotein measurement (mass/volume)Ordered By: Doris Yip on 07-02-2023 CRP [Mass/Vol] 11.40 mg/L 0.0-3.0 [facility] Comment on above: C-Reactive Protein ( CRP) provides useful information for thediagnosis, therapy and monitoring of inflammatory processesand associated diseases. For the evaluation of Relative Riskfor Cardiovascular Disease, a High Sensitivity CRP (HSCRP)should be ordered. Serum or plasma albumin jatin urement (mass/volume)Ordered By: Doris Yip on 07-02-2023 Albumin [Mass/Vol] 3.3 g/dL 3.2-5.0 [facility] Serum or plasma albumin/glob ulin mass ratioOrdered By: Doris Yip on 07-02-2023 Albumin/Globulin [Mass ratio] 0.8 {ratio} 0.9-2.4 [facility] Serum or plasma calcium jatin urement (mass/volume)Ordered By: Doris Yip on 07-02-2023 Calcium [Mass/Vol] 8.8 mg/dL 8.5-10.1 [facility] Serum or plasma creatinine m easurement (mass/volume)Ordered By: Doris Ypi on 07-02-2023 Creatinine [Mass/Vol] 0.92 mg/dL 0.55-1.02 [facility] Comment on above: The validity of the calculated GFR & GFRAA in patients over 70 years has not been determined. Clinical correlation is essential. Serum or plasma urea nitroge n measurement (mass/volume)Ordered By: Doris Yip on 07-02-2023 Urea nitrogen [Mass/Vol] 24 mg/dL 7-18 [facility] Thin prep Papanicolaou smear with manual screeningOrdered By: Doris Yip on 07-02-2023 Thin prep Papanicolaou smear with manual screening 13 U/L 15-37 [facility] Thin prep Papanicolaou smear with manual screening 7 5-15 [facility] Urine blood detectionOrdered By: Doris Yip on 07-02-2023 RBC Ql (U) 10 /ul Negative [facility] Urine clarityOrdered By: Liyah Yip on 07-02-2023 Clarity (U) Clear Clear [facility] Urine color determinationOrd ered By: Doris Yip on 07-02-2023 Color (U) Yellow Yellow [facility] Urine creatinine measurement (mass/volume)Ordered By: Doris Yip on 07-02-2023 Creatinine (U) [Mass/Vol] 100.00 mg/dL NO RANGE EST. [facility] Urine glucose detectionOrder ed By: Doris Yip on 07-02-2023 Glucose Ql (U) Normal mg/dl Normal [facility] Urine leukocyte esterase det ection by dipstickOrdered By: Doris Yip on 07-02-2023 Leukocyte esterase Test strip Ql (U) 100 /ul Negative [facility] Urine pHOrdered By: Doris berman on 07-02-2023 pH (U) 5.0 [pH] 5.0 - 8.0 [facility] Urine protein measurement (m ass/volume)Ordered By: Doris Yip on 07-02-2023 Protein (U) [Mass/Vol] 12.0 mg/dL 0.0-11.8 [facility] Urine protein/creatinine mas s ratioOrdered By: Doris Yip on 07-02-2023 Protein/Creatinine (U) [Mass ratio] 120 mg/g CRE 0-200 [facility] Urine specific gravity measu rementOrdered By: Doris Yip on 07-02-2023 Specific gravity (U) [Rel density] 1.020 1.002-1.030 [facility] Urobilinogen Auto test strip Ql (U)Ordered By: Doris Yip on 07-02-2023 Urobilinogen Ql (U) Normal mg/dl Normal [facility] Anaerobic cultureOrdered By: Mari Veliz on 06-08-2023 Bacteria identified Anaer cx Nom (Unsp spec) [facility] Bacteria identified Anaer cx Nom (Unsp spec) [facility] Bacteria identified Cx Nom ( Wound)Ordered By: Mari Veliz on 06-08-2023 Wound Culture Corynebacterium minutissimum [facility] Wound Culture Corynebacterium minutissum [facility] Gram stain for investigation of transfusion reactionOrdered By: Mari Veliz on 06-08-2023 Microscopic observation Gram stain Nom (Unsp spec) [facility] Microscopic observation Gram stain Nom (Unsp spec) [facility] Bacteria identified Anaer cx Nom (Unsp spec)Ordered By: Mari Veliz on 05-18-2023 Anaerobic Culture Prevotella bivia [facility] Bacteria identified Cx Nom ( Wound)Ordered By: Mari Veliz on 05-18-2023 Wound Culture Staphylococcus epidermidis [facility] Wound Culture Staphylococcus epidermidis [facility] Gram stain for investigation of transfusion reactionOrdered By: Mari Veliz on 05-18-2023 Microscopic observation Gram stain Nom (Unsp spec) [facility] Microscopic observation Gram stain Nom (Unsp spec) [facility] XR CHEST 2V FRONTAL/LATon [facility] Absolute lymphocyte countOrd ered By: Jose Ramon Mckenzie on 04-13-2023 Lymphocytes Auto (Unsp spec) [#/Vol] 2.40 10*3/uL 0.83-4.51 [facility] Basophil percentageOrdered B y: Jose Ramon Mckenzie on 04-13-2023 Basophil percentage 0-5 SEEN /hpf 0-5 [facility] Basophil percentage 3.4 mg/dL 2.5-4.9 [facility] Basophils/100 WBC (Bld) 0.5 % 0-1 [facility] Bilirubin [Mass/Vol] 0.30 mg/dL 0.20-1.00 [facility] Comment on above: For patients on eltr ombopag therapy, use of Dimension [place] TBIL is not recommended. Chloride [Moles/Vol] 105 mmol/L 98-107 [facility] Eosinophils/100 WBC (Bld) 1.8 % 0-5 [facility] Glucose [Mass/Vol] 144 mg/dL 74-106 [facility] Comment on above: Fasting Glucose resu lt greater than or equal to 126 mg/dL suggests DIABETES MELLITUS per A.D.A. criteria. LDH [Catalytic activity/Vol] 166 U/L 84-246 [facility] Neutrophils (Bld) [#/Vol] 3.2 10*3/uL 2.0-7.7 [facility] Neutrophils/100 WBC (Bld) 50.5 % 47-70 [facility] Potassium [Moles/Vol] 3.9 mmol/L 3.5-5.1 [facility] Protein [Mass/Vol] 7.9 g/dL 6.4-8.2 [facility] Sodium [Moles/Vol] 138 mmol/L 136-145 [facility] WBC (Bld) [#/Vol] 6.3 10*3/uL 4.4-11.0 [facility] Bilirubin Test strip Ql (U)O rdered By: Jose Ramon Mckenzie on 04-13-2023 Bilirubin Ql (U) Negative Negative [facility] Blood erythrocytes count (nu mber/volume)Ordered By: Jose Ramon Mckenzie on 04-13-2023 RBC (Bld) [#/Vol] 3.96 10*6/uL 4.2-5.4 [facility] Blood hemoglobin measurement (mass/volume)Ordered By: Jose Ramon Mckenzie on 04-13-2023 Hemoglobin (Bld) [Mass/Vol] 10.9 g/dL 12.0-15. 0 [facility] Blood lymphocytes/100 leukoc ytesOrdered By: Jose Ramon Mckenzie on 04-13-2023 Lymphocytes/100 WBC (Bld) 38.4 % 19-41 [facility] Blood monocytes/100 leukocyt esOrdered By: Jose Ramon Mckenzie on 04-13-2023 Monocytes/100 WBC (Bld) 8.0 % 0-10 [facility] Blood platelet mean volumeOr dered By: Jose Ramon Mckenzie on 04-13-2023 Platelet mean volume (Bld) [Entitic vol] 9.1 fL 6.2-12.0 [facility] Determination of erythrocyte mean corpuscular volume (MCV)Ordered By: Jose Ramon Mckenzie on 04-13-2023 MCV (RBC) [Entitic vol] 89.1 fL 81-99 [facility] Erythropoietin (EPO) QnOrder ed By: Jose Ramon Mckenzie on 04-13-2023 Erythropoietin 25.8 mIU/mL High 2.6-18.5 [facility] Comment on above: [employer] el DxI 800 Immunoassay SystemValues obtained with different assay methods or kits cannotbe used interchangeably. Results cannot be interpreted asabsolute evidence of the presence or absence of malignantdisease.Performed at: [facility] [id number] Director: Herb Kincaid PhD, Phone: [phone] Folate [Mass/Vol]Ordered By: Jose Ramon Mckenzie on 04-13-2023 Folate 23.70 ng/mL 3.1-55.4 [facility] HBV core Ab Ql (S)Ordered By : Jose Ramon Mckenzie on 04-13-2023 Hepatitis B Core Total Antibody Negative Negative [facility] HBV surface Ag IA QlOrdered By: Jose Ramon Mckenzie on 04-13-2023 Hepatitis B Surface Antigen Negative Negative [facility] Hematocrit Auto (Bld) [Volum e fraction]Ordered By: Jose Ramon Mckenzie on 04-13-2023 Hematocrit (Bld) [Volume fraction] 35.3 % 37-47 [facility] Hemoglobin (Reticulocytes) [ Entitic mass]Ordered By: Jose Ramon Mckenzie on 04-13-2023 Reticulocyte Hemoglobin Equivalent 32.3 pg 30-35 [facility] Hemoglobin in reticulocytes (mass per reticulocyte)Ordered By: Jose Ramon Mckenzie on 04-13-2023 Hemoglobin (Reticulocytes) [Entitic mass] 32.3 pg 30-35 [facility] Interpretation of serum or p lasma protein pattern by immunofixation (narrative resultOrdered By: Jose Ramon Mckenzie on 04-13-2023 Protein Fractions Immunofixation Arnav [Interp] See comment [facility] Comment on above: NOT OBSERVED Iron (Unsp spec) [Mass/Mass] Ordered By: Jose Ramon Mckenzie on 04-13-2023 Iron [Mass/Vol] 55 ug/dL 50-170 [facility] Iron measurement (mass/mass) Ordered By: Jose Ramon Mckenzie on 04-13-2023 Iron (Unsp spec) [Mass/Mass] 55 ug/dL 50-170 [facility] Iron saturation [Mass fracti on]Ordered By: Jose Ramon Mckenzie on 04-13-2023 Iron Saturation 20.3 % 15.0-55.0 [facility] Ketones Test strip Ql (U)Ord ered By: Jose Ramon Mckenzie on 04-13-2023 Ketones Ql (U) Negative Negative [facility] Laboratory - Chemistry and C hemistry - challengeOrdered By: Jose Ramon Mckenzie on 04-13-2023 ALP [Catalytic activity/Vol] 103 U/L 45-117 [facility] ALT [Catalytic activity/Vol] 23 U/L 13-56 [facility] Amylase [Catalytic activity/Vol] 40 U/L 5-55 [facility] CO2 [Moles/Vol] 28.0 mmol/L 21.0-32.0 [facility] Cobalamin (Vitamin B12) [Mass/Vol] 936 pg/mL High 211-911 [facility] Free T4 [Mass/Vol] 0.98 ng/dL 0.76-1.46 [facility] Magnesium [Mass/Vol] 1.9 mg/dL 1.6-2.6 [facility] Urea nitrogen/Creatinine [Mass ratio] 22.8 mg/mg 10-20 [facility] Laboratory - Hematology and Cell countsOrdered By: Jose Ramon Mckenzie on 04-13-2023 Erythrocyte distribution width (RBC) [Entitic vol] 51.5 fL 35.1-43.9 [facility] Erythrocyte distribution width (RBC) [Ratio] 15.8 % 11.6-14.6 [facility] Immature granulocytes/100 WBC (Bld) 0.800 % 0.0-0.9 [facility] Comment on above: IG% - Immature Granu locytes (promyelocytes, myelocytes and metamyelocytes) > 1% indicates that a LEFT SHIFT is Present. MCH (RBC) [Entitic mass] 27.5 pg 27.0-32.0 [facility] Nucleated RBC/100 WBC (Bld) [Ratio] 0 % 0-5 [facility] MCHC Auto (RBC) [Mass/Vol]Or dered By: Jose Ramon Mckenzie on 04-13-2023 MCHC (RBC) [Mass/Vol] 30.9 g/dL 32-36 [facility] Mucus LM Ql (Urine sed)Order ed By: Jose Ramon Mckenzie on 04-13-2023 Mucus Ql (Urine sed) 0 SEEN /hpf [facility] Nitrite Test strip Ql (U)Ord ered By: Jose Ramon Mckenzie on 04-13-2023 Nitrite Ql (U) Negative Negative [facility] No Panel InformationOrdered By: Jose Ramon Mckenzie on 04-13-2023 Addendum Document Comment . [facility] Comment on above: Protein electrophore sis scan will follow via computer,mail, or machine fastener delivery. Estimated GFR (MDRD) Amer 70 mL/min >60 [facility] Comment on above: GFR Calc Estimated GFR (MDRD) Non-Af Amer 58 mL/min >60 [facility] Comment on above: Non- GFR Calc Free Lambda Light Chains, Quant 37.5 mg/L 5.7-26.3 [facility] Free Triiodothyronine (T3) pg/dL 3.1 pg/mL 2.18-3.98 [facility] Hepatitis B Surface Antibody Non-Reactive . [facility] Comment on above: Non Reactive: Incons istent with immunity, less than 10 mIU/mL Reactive: Consistent with immunity, greater than 9.9 mIU/mL Hepatitis C Antibody Comment Comment . [facility] Comment on above: Not infected with HC V unless early or acute infection issuspected (which may be delayed in an immunocompromisedindividual), or other evidence exists to indicate HCVinfection. Immature Reticulocyte Fraction 21.40 % High 3.00-15.90 [facility] Reticulocyte Count 2.47 % High 0.5-1.5 [facility] Thyroid Stimulating Hormone (TSH) 1.48 uIU/mL 0.358-3.74 [facility] Total Iron Binding Capacity 271 ug/dL 250-450 [facility] Platelets bldOrdered By: Eugene Mckenzie on 04-13-2023 Platelets (Bld) [#/Vol] 281 10*3/uL 150-450 [facility] Protein Test strip Ql (U)Ord ered By: Jose Ramon Mckenzie on 04-13-2023 Protein Ql (U) 15 mg/dl Negative [facility] Serum [id number] measu rement by electrophoresisOrdered By: Jose Ramon Mckenzie on 04-13-2023 Alpha 1 globulin Elph [Mass/Vol] 0.3 g/dL 0.0-0.4 [facility] Alpha 1 globulin Elph [Mass/Vol] 1.1 g/dL 0.4-1.0 [facility] Serum globulin measurement ( mass/volume)Ordered By: Jose Ramon Mckenzie on 04-13-2023 Globulin (S) [Mass/Vol] 4.1 g/dL 2.2-3.9 [facility] Serum hepatitis B virus core antibody detectionOrdered By: Jose Ramon Mckenzie on 04-13-2023 HBV core Ab Ql (S) Negative Negative [facility] Serum immunoglobulin kappa l ight chains/immunoglobulin lambda light chains mass ratioOrdered By: Jose Ramon Mckenzie on 04-13-2023 Immunoglobulin light chains.kappa/Immunoglobulin light chains.lambda (S) [Mass ratio] 1.55 0.26-1.65 [facility] Serum or plasma IgA measurem ent (mass/volume)Ordered By: Jose Ramon Mckenzie on 04-13-2023 IgA [Mass/Vol] 274 mg/dL 87-352 [facility] Serum or plasma IgG measurem ent (mass/volume)Ordered By: Jose Ramon Mckenzie on 04-13-2023 IgG [Mass/Vol] 1459 mg/dL 586-1602 [facility] Serum or plasma IgM measurem ent (mass/volume)Ordered By: Jose Ramon Mckenzie on 04-13-2023 IgM [Mass/Vol] 121 mg/dL 26-217 [facility] Serum or plasma albumin jatin urement (mass/volume)Ordered By: Jose Ramon Mckenzie on 04-13-2023 Albumin [Mass/Vol] 3.0 g/dL 2.9-4.4 [facility] Serum or plasma albumin/glob ulin mass ratioOrdered By: Jose Ramon Mckenzie on 04-13-2023 Albumin/Globulin [Mass ratio] 0.6 {ratio} 0.9-2.4 [facility] Serum or plasma beta globuli n measurement by electrophoresis (mass/volume)Ordered By: Jose Ramon Mckenzie on 04-13-2023 Beta globulin Elph [Mass/Vol] 1.1 g/dL 0.7-1.3 [facility] Serum or plasma calcium jatin urement (mass/volume)Ordered By: Jose Ramon [place] on 04-13-2023 Calcium [Mass/Vol] 8.9 mg/dL 8.5-10.1 [facility] Serum or plasma creatinine m easurement (mass/volume)Ordered By: Jose Ramon Mckenzie on 04-13-2023 Creatinine [Mass/Vol] 1.01 mg/dL 0.55-1.02 [facility] Comment on above: The validity of the calculated GFR & GFRAA in patients over 70 years has not been determined. Clinical correlation is essential. Serum or plasma erythropoiet in (EPO) measurement (units/volume)Ordered By: Jose Ramon [place] on 04-13-2023 Erythropoietin (EPO) Qn 25.8 mIU/mL [facility] 2.6-18.5 [facility] Comment on above: [employer] DxI 800 Immunoassay SystemValues obtained with different assay methods or kits cannotbe used interchangeably. Results cannot be interpreted asabsolute evidence of the presence or absence of malignantdisease.Performed at: [facility] [id number] Director: Herb Kincaid PhD, Phone: [phone] Serum or plasma ferritin karina surement (mass/volume)Ordered By: Jose Ramon Mckenzie on 04-13-2023 Ferritin [Mass/Vol] 334 ng/mL High 8-252 [facility] Serum or plasma folate measu rement (mass/volume)Ordered By: Jose Ramon Mckenzie on 04-13-2023 Folate [Mass/Vol] 23.70 ng/mL 3.1-55.4 [facility] Serum or plasma gamma globul in measurement by electrophoresis (mass/volume)Ordered By: Jose Ramon Mckenzie on 04-13-2023 Gamma globulin Elph [Mass/Vol] 1.5 g/dL 0.4-1.8 [facility] Serum or plasma hepatitis B virus surface antigen detection by immunoassayOrdered By: Jose Ramon Mckenzie on 04-13-2023 HBV surface Ag IA Ql Negative Negative [facility] Serum or plasma immunoelectr ophoresis interpretation (nominal result)Ordered By: Jose Ramon Mckenzie on 04-13-2023 Interpretation IEP [Interp] Comment . [facility] Comment on above: No monoclonality det ected. Serum or plasma immunoglobul in kappa light chains measurement (mass/volume)Ordered By: Jose Ramon Mckenzie on 04-13-2023 Immunoglobulin light chains.kappa [Mass/Vol] 58.1 mg/L 3.3-19.4 [facility] Serum or plasma iron saturat ion measurement (mass fraction)Ordered By: Jose Ramon Mckenzie on 04-13-2023 Iron saturation [Mass fraction] 20.3 % 15.0-55.0 [facility] Serum or plasma urea nitroge n measurement (mass/volume)Ordered By: Jose Ramon Mckenzie on 04-13-2023 Urea nitrogen [Mass/Vol] 23 mg/dL 7-18 [facility] Squamous epithelial cells de tection in urine sediment by light microscopyOrdered By: Jose Ramon Mckenzie on 04-13-2023 Epithelial cells.squamous LM Ql (Urine sed) 0-5 SEEN /hpf 5-10 [facility] Thin prep Papanicolaou smear with manual screeningOrdered By: Jose Ramon Mckenzie on 04-13-2023 Thin prep Papanicolaou smear with manual screening 13 U/L 15-37 [facility] Thin prep Papanicolaou smear with manual screening 5 5-15 [facility] Thin prep Papanicolaou smear with manual screening 0.8 0.7-1.7 [facility] Total protein bloodOrdered B y: Jose Ramon Mckenzie on 04-13-2023 Protein [Mass/Vol] 7.1 g/dL 6.0-8.5 [facility] Trichomonas screening testOr dered By: Jose Ramon Mckenzie on 04-13-2023 Phosphorus Level 3.4 mg/dL 2.5-4.9 [facility] Urine blood detectionOrdered By: Jose Ramon Mckenzie on 04-13-2023 RBC Ql (U) 10 /ul Negative [facility] RBC Ql (U) 0-5 SEEN /hpf 0-5 [facility] Urine clarityOrdered By: Eugene Mckenzie on 04-13-2023 Clarity (U) Sl. Cloudy Clear [facility] Urine color determinationOrd ered By: Jose Ramon Mckenzie on 04-13-2023 Color (U) Yellow Yellow [facility] Urine glucose detectionOrder ed By: Jose Ramon Mckenzie on 04-13-2023 Glucose Ql (U) Normal mg/dl Normal [facility] Urine leukocyte esterase det ection by dipstickOrdered By: Jose Ramon Mckenzie on 04-13-2023 Leukocyte esterase Test strip Ql (U) 25 /ul Negative [facility] Urine pHOrdered By: Jose Ramon meyer on 04-13-2023 pH (U) 6.0 [pH] 5.0 - 8.0 [facility] Urine sediment bacteria coun t by microscopy (number/high power field)Ordered By: Jose Ramon Mckenzie on 04-13-2023 Bacteria LM.HPF (Urine sed) [#/Area] 0 /[HPF] None Seen [facility] Urine specific gravity measu rementOrdered By: Jose Ramon Mckenzie on 04-13-2023 Specific gravity (U) [Rel density] 1.015 1.002-1.030 [facility] Urobilinogen Auto test strip Ql (U)Ordered By: Jose Ramon Mckenzie on 04-13-2023 Urobilinogen Ql (U) Normal mg/dl Normal [facility] XR CHEST 2V FRONTAL/LATon [facility] Basophil percentageOrdered B y: Kathleen De Leon on 03-28-2023 Chloride [Moles/Vol] 108 mmol/L 98-107 [facility] Glucose [Mass/Vol] 112 mg/dL 74-106 [facility] Comment on above: Fasting Glucose resu lt from 100 to 125 mg/dL suggests IMPAIRED HOMEOSTASIS per A.D.A. criteria. Potassium [Moles/Vol] 3.9 mmol/L 3.5-5.1 [facility] Sodium [Moles/Vol] 141 mmol/L 136-145 [facility] WBC (Bld) [#/Vol] 8.4 10*3/uL 4.4-11.0 [facility] Blood erythrocytes count (nu mber/volume)Ordered By: Kathleen De Leon on 03-28-2023 RBC (Bld) [#/Vol] 3.34 10*6/uL 4.2-5.4 [facility] Blood hemoglobin measurement (mass/volume)Ordered By: Kathleen De Leon on 03-28-2023 Hemoglobin (Bld) [Mass/Vol] 9.4 g/dL 12.0-15. 0 [facility] Blood platelet mean volumeOr dered By: Kathleen De Leon on 03-28-2023 Platelet mean volume (Bld) [Entitic vol] 9.1 fL 6.2-12.0 [facility] Determination of erythrocyte mean corpuscular volume (MCV)Ordered By: Kathleen De Leon on 03-28-2023 MCV (RBC) [Entitic vol] 92.8 fL 81-99 [facility] Hematocrit Auto (Bld) [Volum e fraction]Ordered By: Kathleen De Leon on 03-28-2023 Hematocrit (Bld) [Volume fraction] 31.0 % 37-47 [facility] Laboratory - Chemistry and C hemistry - challengeOrdered By: Kathleen De Leon on 03-28-2023 CO2 [Moles/Vol] 26.0 mmol/L 21.0-32.0 [facility] Urea nitrogen/Creatinine [Mass ratio] 17.3 mg/mg 10-20 [facility] - Hematology and Cell countsOrdered By: Kathleen De Leon on 03-28-2023 Erythrocyte distribution width (RBC) [Entitic vol] 50.4 fL 35.1-43.9 [facility] Erythrocyte distribution width (RBC) [Ratio] 14.7 % 11.6-14.6 [facility] MCH (RBC) [Entitic mass] 28.1 pg 27.0-32.0 [facility] MCHC Auto (RBC) [Mass/Vol]Or dered By: Kathleen De Leon on 03-28-2023 MCHC (RBC) [Mass/Vol] 30.3 g/dL 32-36 [facility] No Panel InformationOrdered By: Kathleen De Leon on 03-28-2023 Estimated GFR (MDRD) Amer 43 mL/min >60 [facility] Comment on above: GFR Calc Estimated GFR (MDRD) Non-Af Amer 35 mL/min >60 [facility] Comment on above: Non- GFR Calc Platelets bldOrdered By: Greg gomez [place] on 03-28-2023 Platelets (Bld) [#/Vol] 525 10*3/uL 150-450 [facility] Serum or plasma calcium jatin urement (mass/volume)Ordered By: Kathleen De Leon on 03-28-2023 Calcium [Mass/Vol] 8.6 mg/dL 8.5-10.1 [facility] Serum or plasma creatinine m easurement (mass/volume)Ordered By: Kathleen De Leon on 03-28-2023 Creatinine [Mass/Vol] 1.56 mg/dL 0.55-1.02 [facility] Comment on above: The validity of the calculated GFR & GFRAA in patients over 70 years has not been determined. Clinical correlation is essential. Serum or plasma urea nitroge n measurement (mass/volume)Ordered By: Kathleen De Leon on 03-28-2023 Urea nitrogen [Mass/Vol] 27 mg/dL 7-18 [facility] Thin prep Papanicolaou smear with manual screeningOrdered By: Kathleen De Leon on 03-28-2023 Thin prep Papanicolaou smear with manual screening 7 5-15 [facility] Laboratory - CoagulationOrde red By: Gerard Pereyra on 03-13-2023 INR Coag (Bld) [Relative time] 2.5 {INR} [facility] Comment on above: Critical Value > 4.0 Whole blood prothrombin time Ordered By: Gerard Pereyra on 03-13-2023 PT Coag (Bld) [Time] 27.2 s 11.7-14.9 [facility] Absolute lymphocyte countOrd ered By: Autumn Caldwell on 03-12-2023 Lymphocytes Auto (Unsp spec) [#/Vol] 2.46 10*3/uL 0.83-4.51 [facility] Basophil percentageOrdered B y: Autumn Caldwell on 03-12-2023 Basophils/100 WBC (Bld) 0.5 % 0-1 [facility] Chloride [Moles/Vol] 100 mmol/L 98-107 [facility] Eosinophils/100 WBC (Bld) 0.6 % 0-5 [facility] Glucose [Mass/Vol] 191 mg/dL 74-106 [facility] Comment on above: Fasting Glucose resu lt greater than or equal to 126 mg/dL suggests DIABETES MELLITUS per A.D.A. criteria. Neutrophils (Bld) [#/Vol] 11.2 10*3/uL 2.0-7.7 [facility] Neutrophils/100 WBC (Bld) 73.5 % 47-70 [facility] Potassium [Moles/Vol] 4.1 mmol/L 3.5-5.1 [facility] Sodium [Moles/Vol] 133 mmol/L 136-145 [facility] WBC (Bld) [#/Vol] 15.2 10*3/uL 4.4-11.0 [facility] Blood erythrocytes count (nu mber/volume)Ordered By: Autumn Caldwell on 03-12-2023 RBC (Bld) [#/Vol] 3.55 10*6/uL 4.2-5.4 [facility] Blood hemoglobin measurement (mass/volume)Ordered By: Autumn Caldwell on 03-12-2023 Hemoglobin (Bld) [Mass/Vol] 10.0 g/dL 12.0-15. 0 [facility] Blood lymphocytes/100 leukoc ytesOrdered By: Autumn Caldwell on 03-12-2023 Lymphocytes/100 WBC (Bld) 16.2 % 19-41 [facility] Blood monocytes/100 leukocyt esOrdered By: Autumn Caldwell on 03-12-2023 Monocytes/100 WBC (Bld) 8.3 % 0-10 [facility] Blood platelet mean volumeOr dered By: Autumn Caldwell on 03-12-2023 Platelet mean volume (Bld) [Entitic vol] 9.7 fL 6.2-12.0 [facility] Determination of erythrocyte mean corpuscular volume (MCV)Ordered By: Autumn Caldwell on 03-12-2023 MCV (RBC) [Entitic vol] 92.4 fL 81-99 [facility] Hematocrit Auto (Bld) [Volum e fraction]Ordered By: Autumn Caldwell on 03-12-2023 Hematocrit (Bld) [Volume fraction] 32.8 % 37-47 [facility] Laboratory - Chemistry and C hemistry - challengeOrdered By: Autumn Caldwell on 03-12-2023 CO2 [Moles/Vol] 24.0 mmol/L 21.0-32.0 [facility] Natriuretic peptide B (Bld) [Mass/Vol] 34.7 pg/mL 0-100 [facility] Urea nitrogen/Creatinine [Mass ratio] 22.3 mg/mg 10-20 [facility] Laboratory - Hematology and Cell countsOrdered By: Autumn Caldwell on 03-12-2023 Erythrocyte distribution width (RBC) [Entitic vol] 49.7 fL 35.1-43.9 [facility] Erythrocyte distribution width (RBC) [Ratio] 14.7 % 11.6-14.6 [facility] Immature granulocytes/100 WBC (Bld) 0.900 % 0.0-0.9 [facility] Comment on above: IG% - Immature Granu locytes (promyelocytes, myelocytes and metamyelocytes) > 1% indicates that a LEFT SHIFT is Present. MCH (RBC) [Entitic mass] 28.2 pg 27.0-32.0 [facility] Nucleated RBC/100 WBC (Bld) [Ratio] 0 % 0-5 [facility] MCHC Auto (RBC) [Mass/Vol]Or dered By: Autumn Caldwell on 03-12-2023 MCHC (RBC) [Mass/Vol] 30.5 g/dL 32-36 [facility] No Panel InformationOrdered By: Autumn Caldwell on 03-12-2023 Estimated GFR (MDRD) Amer 77 mL/min >60 [facility] Comment on above: GFR Calc Estimated GFR (MDRD) Non-Af Amer 63 mL/min >60 [facility] Comment on above: Non- GFR Calc Platelets bldOrdered By: Wilmer Caldwell on 03-12-2023 Platelets (Bld) [#/Vol] 444 10*3/uL 150-450 [facility] Serum or plasma calcium jatin urement (mass/volume)Ordered By: Autumn Caldwell on 03-12-2023 Calcium [Mass/Vol] 9.0 mg/dL 8.5-10.1 [facility] Serum or plasma creatinine m easurement (mass/volume)Ordered By: Autumn Caldwell on 03-12-2023 Creatinine [Mass/Vol] 0.94 mg/dL 0.55-1.02 [facility] Comment on above: The validity of the calculated GFR & GFRAA in patients over 70 years has not been determined. Clinical correlation is essential. Serum or plasma urea nitroge n measurement (mass/volume)Ordered By: Autumn Caldwell on 03-12-2023 Urea nitrogen [Mass/Vol] 21 mg/dL 7-18 [facility] Thin prep Papanicolaou smear with manual screeningOrdered By: Autumn Caldwell on 03-12-2023 Thin prep Papanicolaou smear with manual screening 9 5-15 [facility] Bilirubin Test strip Ql (U)O rdered By: Gerard Pereyra on 02-02-2023 Bilirubin Ql (U) Negative Negative [facility] Ketones Test strip Ql (U)Ord ered By: Gerard Pereyra on 02-02-2023 Ketones Ql (U) Negative Negative [facility] Nitrite Test strip Ql (U)Ord ered By: Gerard Pereyra on 02-02-2023 Nitrite Ql (U) Negative Negative [facility] Protein Test strip Ql (U)Ord ered By: Gerard Pereyra on 02-02-2023 Protein Ql (U) 15 mg/dl Negative [facility] Urine blood detectionOrdered By: Gerard Pereyra on 02-02-2023 RBC Ql (U) Negative Negative [facility] Urine clarityOrdered By: Christo Pereyra on 02-02-2023 Clarity (U) Clear Clear [facility] Urine color determinationOrd ered By: Gerard Pereyra on 02-02-2023 Color (U) Yellow Yellow [facility] Urine glucose detectionOrder ed By: Gerard Pereyra on 02-02-2023 Glucose Ql (U) Normal mg/dl Normal [facility] Urine leukocyte esterase det ection by dipstickOrdered By: Gerard Pereyra on 02-02-2023 Leukocyte esterase Test strip Ql (U) Negative Negative [facility] Urine pHOrdered By: Gerard garcia on 02-02-2023 pH (U) 7.0 [pH] 5.0 - 8.0 [facility] Urine specific gravity measu rementOrdered By: Gerard Pereyra on 02-02-2023 Specific gravity (U) [Rel density] 1.010 1.002-1.030 [facility] Urobilinogen Auto test strip Ql (U)Ordered By: Gerard Pereyra on 02-02-2023 Urobilinogen Ql (U) Normal mg/dl Normal [facility] Absolute lymphocyte countOrd ered By: Gerard Pereyra on 01-30-2023 Lymphocytes Auto (Unsp spec) [#/Vol] 1.78 10*3/uL 0.83-4.51 [facility] Atypical perinuclear antineu trophil cytoplasmic antibodies measurementOrdered By: Gerard Pereyra on 01-30-2023 Neutrophil cytoplasmic Ab.perinuclear.atypical IF (S) [Titer] 1:320 titer Neg:<1:20 [facility] Comment on above: The atypical pANCA p attern has been observed in asignificant percentage of patients with ulcerative colitis,primary sclerosing cholangitis and autoimmune hepatitis. Basophil percentageOrdered B y: Gerard Pereyra on 01-30-2023 Basophil percentage < 0.2 AI 0.0-0.9 [facility] Basophils/100 WBC (Bld) 0.5 % 0-1 [facility] Bilirubin [Mass/Vol] 0.40 mg/dL 0.20-1.00 [facility] Comment on above: For patients on eltr ombopag therapy, use of Dim[place] TBIL is not recommended. Eosinophils/100 WBC (Bld) 1.0 % 0-5 [facility] Neutrophils (Bld) [#/Vol] 10.5 10*3/uL 2.0-7.7 [facility] Neutrophils/100 WBC (Bld) 77.8 % 47-70 [facility] Protein [Mass/Vol] 7.7 g/dL 6.4-8.2 [facility] WBC (Bld) [#/Vol] 13.4 10*3/uL 4.4-11.0 [facility] Blood erythrocytes count (nu mber/volume)Ordered By: Gerard Pereyra on 01-30-2023 RBC (Bld) [#/Vol] 3.50 10*6/uL 4.2-5.4 [facility] Blood hemoglobin measurement (mass/volume)Ordered By: Gerard Pereyra on 01-30-2023 Hemoglobin (Bld) [Mass/Vol] 10.5 g/dL 12.0-15. 0 [facility] Blood lymphocytes/100 leukoc ytesOrdered By: Gerard Pereyra on 01-30-2023 Lymphocytes/100 WBC (Bld) 13.3 % 19-41 [facility] Blood manual differential co mment interpretation (narrative result)Ordered By: Gerard Pereyra on 01-30-2023 Manual differential comment Arnav (Bld) [Interp] SCANNED [facility] Blood monocytes/100 leukocyt esOrdered By: Gerard Pereyra on 01-30-2023 Monocytes/100 WBC (Bld) 5.4 % 0-10 [facility] Blood platelet mean volumeOr dered By: Gerard Pereyra on 01-30-2023 Platelet mean volume (Bld) [Entitic vol] 9.3 fL 6.2-12.0 [facility] Determination of erythrocyte mean corpuscular volume (MCV)Ordered By: Gerard Pereyra on 01-30-2023 MCV (RBC) [Entitic vol] 95.4 fL 81-99 [facility] Direct bilirubinOrdered By: Gerard Pereyra on 01-30-2023 Bilirubin.direct [Mass/Vol] 0.18 mg/dL 0.00-0.3 0 [facility] Erythrocyte sedimentation ra teOrdered By: Gerard Pereyra on 01-30-2023 ESR (Bld) [Velocity] 36 mm/h 0-30 [facility] Hematocrit Auto (Bld) [Volum e fraction]Ordered By: Gerard Pereyra on 01-30-2023 Hematocrit (Bld) [Volume fraction] 33.4 % 37-47 [facility] Laboratory - Chemistry and C hemistry - challengeOrdered By: Gerard Pereyra on 01-30-2023 ALP [Catalytic activity/Vol] 99 U/L 45-117 [facility] ALT [Catalytic activity/Vol] 27 U/L 13-56 [facility] Globulin (S) [Mass/Vol] 5.8 g/dL 2.2-4.2 [facility] Laboratory - Hematology and Cell countsOrdered By: Gerard Pereyra on 01-30-2023 Erythrocyte distribution width (RBC) [Entitic vol] 48.5 fL 35.1-43.9 [facility] Erythrocyte distribution width (RBC) [Ratio] 13.9 % 11.6-14.6 [facility] Immature granulocytes/100 WBC (Bld) 2.000 % 0.0-0.9 [facility] Comment on above: IG% - Immature Granu locytes (promyelocytes, myelocytes and metamyelocytes) > 1% indicates that a LEFT SHIFT is Present. MCH (RBC) [Entitic mass] 30.0 pg 27.0-32.0 [facility] Nucleated RBC/100 WBC (Bld) [Ratio] 0 % 0-5 [facility] MCHC Auto (RBC) [Mass/Vol]Or dered By: Gerard Pereyra on 01-30-2023 MCHC (RBC) [Mass/Vol] 31.4 g/dL 32-36 [facility] No Panel InformationOrdered By: Gerard Pereyra on 01-30-2023 Anti-Nuclear Antibody Screen Negative Negative [facility] Comment on above: Performed at: [facility] [place] [id number] Director: Herb Kincaid PhD, Phone: [phone] [employer] Antibody <0.2 AI 0.0-0.9 [facility] Platelets bldOrdered By: Christo Pereyra on 01-30-2023 Platelets (Bld) [#/Vol] 301 10*3/uL 150-450 [facility] Serum DNA double strand anti body assay (units/volume)Ordered By: Gerard Pereyra on 01-30-2023 DNA double strand Ab Qn (S) [IU]/mL 0-9 [facility] Comment on above: Negative <5 Equivoca l 5 - 9 Positive >9 Serum Lilly-1 antibody assay (u nits/volume)Ordered By: Gerard Pereyra on 01-30-2023 Lilly-1 extractable nuclear Ab Qn (S) <0.2 AI 0.0-0.9 [facility] Serum Scl-70 extractable nuc lear antibody assay (units/volume)Ordered By: Gerard Pereyra on 01-30-2023 SCL-70 extractable nuclear Ab Qn (S) <0.2 AI 0.0-0.9 [facility] Serum classic neutrophil cyt oplasmic antibody assay (units/volume)Ordered By: Gerard Pereyra on 01-30-2023 Neutrophil cytoplasmic Ab.classic Qn (S) <1:20 titer Neg:<1:20 [facility] Serum cyclic citrullinated p eptide IgG antibody assay (units/volume)Ordered By: Gerard Pereyra on 01-30-2023 Cyclic citrullinated peptide IgG Qn 7 units 0-19 [facility] Comment on above: Negative <20 Weak po sitive 20 - 39 Moderate positive 40 - 59 Strong positive >59Performed at: [facility] [place] [id number] Director: Herb Kincaid PhD, Phone: [phone] Serum or plasma C reactive p rotein measurement (mass/volume)Ordered By: Gerard Pereyra on 01-30-2023 CRP [Mass/Vol] 278.00 mg/L 0.0-3.0 [facility] Comment on above: C-Reactive Protein ( CRP) provides useful information for thediagnosis, therapy and monitoring of inflammatory processesand associated diseases. For the evaluation of Relative Riskfor Cardiovascular Disease, a High Sensitivity CRP (HSCRP)should be ordered. Serum or plasma actin IgG an tibody assay (units/volume)Ordered By: Gerard Pereyra on 01-30-2023 Actin IgG Qn 18 Units 0-19 [facility] Comment on above: Negative 0 - 19 Weak positive 20 - 30 Moderate to strong positive >30 Actin Antibodies are found in 52-85% of patients with autoimmune hepatitis or chronic active hepatitis and in 22% of patients with primary biliary cirrhosis. Serum or plasma albumin jatin urement (mass/volume)Ordered By: Gerard Pereyra on 01-30-2023 Albumin [Mass/Vol] 1.9 g/dL 3.2-5.0 [facility] Serum or plasma angiotensin converting enzyme measurement (enzymatic activity/volume)Ordered By: Gerard Pereyra on 01-30-2023 Angiotensin converting enzyme [Catalytic activity/Vol] 16 U/L 14-82 [facility] Serum perinuclear neutrophil cytoplasmic antibody titer by immunofluorescenceOrdered By: Gerard Pereyra on 01-30-2023 Neutrophil cytoplasmic Ab.perinuclear IF (S) [Titer] <1:20 titer Neg:<1:20 [facility] Comment on above: The presence of posi tive fluorescence exhibiting P-ANCA orC-ANCA patterns alone is not specific for the diagnosis ofWegener's Granulomatosis (WG) or microscopic polyangiitis.Decisions about treatment should not be based solely onANCA IFA results. The [employer]CA [employer] Consensusrecommends follow up testing of positive sera with both ID-3 and MPO-ANCA enzyme immunoassays. As many as 5% serumsamples are positive only by EIA. Ref. AM J Clin [id number];111:507-513. Serum rheumatoid factor dete ctionOrdered By: Gerard Pereyra on 01-30-2023 Rheumatoid factor Ql (S) < 10.0 IU/mL <15 [facility] Thin prep Papanicolaou smear with manual screeningOrdered By: Wales Hafsa on 01-30-2023 Thin prep Papanicolaou smear with manual screening 14 U/L 15-37 [facility] Absolute lymphocyte countOrd ered By: Kenney Vizcarra on 01-25-2023 Lymphocytes Auto (Unsp spec) [#/Vol] 1.55 10*3/uL 0.83-4.51 [facility] Basophil percentageOrdered B y: Kenney Vizcarra on 01-25-2023 Basophils/100 WBC (Bld) 0.5 % 0-1 [facility] Chloride [Moles/Vol] 104 mmol/L 98-107 [facility] Eosinophils/100 WBC (Bld) 2.7 % 0-5 [facility] Glucose [Mass/Vol] 137 mg/dL 74-106 [facility] Comment on above: Fasting Glucose resu lt greater than or equal to 126 mg/dL suggests DIABETES MELLITUS per A.D.A. criteria. Neutrophils (Bld) [#/Vol] 7.3 10*3/uL 2.0-7.7 [facility] Neutrophils/100 WBC (Bld) 69.2 % 47-70 [facility] Potassium [Moles/Vol] 4.0 mmol/L 3.5-5.1 [facility] Sodium [Moles/Vol] 139 mmol/L 136-145 [facility] WBC (Bld) [#/Vol] 10.5 10*3/uL 4.4-11.0 [facility] Blood erythrocytes count (nu mber/volume)Ordered By: Kenney Vizcarra on 01-25-2023 RBC (Bld) [#/Vol] 3.55 10*6/uL 4.2-5.4 [facility] Blood hemoglobin measurement (mass/volume)Ordered By: Kenney Vizcarra on 01-25-2023 Hemoglobin (Bld) [Mass/Vol] 10.9 g/dL 12.0-15. 0 [facility] Blood lymphocytes/100 leukoc ytesOrdered By: Kenney Vizcarra on 01-25-2023 Lymphocytes/100 WBC (Bld) 14.7 % 19-41 [facility] Blood monocytes/100 leukocyt esOrdered By: Kenney Vizcarra on 01-25-2023 Monocytes/100 WBC (Bld) 9.6 % 0-10 [facility] Blood platelet mean volumeOr dered By: Kenney Vizcarra on 01-25-2023 Platelet mean volume (Bld) [Entitic vol] 9.4 fL 6.2-12.0 [facility] Determination of erythrocyte mean corpuscular volume (MCV)Ordered By: Kenney Vizcarra on 01-25-2023 MCV (RBC) [Entitic vol] 95.2 fL 81-99 [facility] Glucose Glucometer (BldC) [M ass/Vol]Ordered By: Neymar Masters on 01-25-2023 Glucose [Mass/Vol] 177 mg/dL 74-106 [facility] Comment on above: MANAGEMENT OF PATIEN T CARE PER NURSING PROTOCOL Hematocrit Auto (Bld) [Volum e fraction]Ordered By: Kenney Vizcarra on 01-25-2023 Hematocrit (Bld) [Volume fraction] 33.8 % 37-47 [facility] INR in Blood by Coagulation assayOrdered By: Kenney Vizcarra on 01-25-2023 INR Coag (Bld) [Relative time] 1.4 {INR} [facility] Laboratory - Chemistry and C hemistry - challengeOrdered By: Kenney Vizcarra on 07-06-2023 CO2 [Moles/Vol] 30.0 mmol/L 21.0-32.0 [facility] Urea nitrogen/Creatinine [Mass ratio] 18.3 mg/mg 10-20 [facility] Laboratory - CoagulationOrde red By: Kenney Vizcarra on 01-25-2023 PT Coag (PPP) [Time] 16.9 s 11.7-14.9 [facility] Laboratory - Hematology and Cell countsOrdered By: Kenney Vizcarra on 01-25-2023 Erythrocyte distribution width (RBC) [Entitic vol] 47.3 fL 35.1-43.9 [facility] Erythrocyte distribution width (RBC) [Ratio] 13.3 % 11.6-14.6 [facility] Immature granulocytes/100 WBC (Bld) 3.300 % 0.0-0.9 [facility] Comment on above: IG% - Immature Granu locytes (promyelocytes, myelocytes and metamyelocytes) > 1% indicates that a LEFT SHIFT is Present. MCH (RBC) [Entitic mass] 30.7 pg 27.0-32.0 [facility] Nucleated RBC/100 WBC (Bld) [Ratio] 0 % 0-5 [facility] MCHC Auto (RBC) [Mass/Vol]Or dered By: Kenney Vizcarra on 01-25-2023 MCHC (RBC) [Mass/Vol] 32.2 g/dL 32-36 [facility] No Panel InformationOrdered By: Kenney Vizcarra on 01-25-2023 Estimated Creatinine Clearance Calc 49.80 ml/min [facility] Estimated GFR (MDRD) Amer 106 mL/min >60 [facility] Comment on above: GFR Calc Estimated GFR (MDRD) Non-Af Amer 88 mL/min >60 [facility] Comment on above: Non- GFR Calc Platelets bldOrdered By: Brian Vizcarra on 01-25-2023 Platelets (Bld) [#/Vol] 359 10*3/uL 150-450 [facility] Serum or plasma calcium jatin urement (mass/volume)Ordered By: Kenney Vizcarra on 01-25-2023 Calcium [Mass/Vol] 8.4 mg/dL 8.5-10.1 [facility] Serum or plasma creatinine m easurement (mass/volume)Ordered By: Kenney Vizcarra on 01-25-2023 Creatinine [Mass/Vol] 0.71 mg/dL 0.55-1.02 [facility] Comment on above: The validity of the calculated GFR & GFRAA in patients over 70 years has not been determined. Clinical correlation is essential. Serum or plasma urea nitroge n measurement (mass/volume)Ordered By: Kenney Vizcarra on 01-25-2023 Urea nitrogen [Mass/Vol] 13 mg/dL 7-18 [facility] Thin prep Papanicolaou smear with manual screeningOrdered By: Kenney Vizcarra on 01-25-2023 Thin prep Papanicolaou smear with manual screening 5 5-15 [facility] Anaerobic cultureOrdered By: Kenney Vizcarra on 01-24-2023 Bacteria identified Anaer cx Nom (Unsp spec) No growth in 5 days. [facility] Bacterial body fluid culture Ordered By: Kenney Vizcarra on 01-24-2023 Bacteria identified Cx Nom (Body fld) No growth aerobically. [facility] Basophil percentageOrdered B y: Kenney Vizcarra on 01-24-2023 LDH [Catalytic activity/Vol] 159 U/L 84-246 [facility] Body fluid appearanceOrdered By: Kenney Vizcarra on 01-24-2023 Appearance (Body fld) SL CLDY [facility] Body fluid color determinati onOrdered By: Kenney Vizcarra on 01-24-2023 Color (Body fld) LT YEL [facility] Body fluid erythrocytes coun t (number/volume)Ordered By: Kenney Vizcarra on 01-24-2023 RBC (Body fld) [#/Vol] 3 10*3/uL [facility] Body fluid lactate dehydroge nase measurement (enzymatic activity/volume) by pyruvateOrdered By: Kenney Vizcarra on 01-24-2023 LDH Pyruvate to lactate reaction (Body fld) [Catalytic activity/Vol] 669 Units/l Not Establ. [facility] Body fluid leukocytes count (number/volume)Ordered By: Kenney Vizcarra on 01-24-2023 WBC (Body fld) [#/Vol] 1.476 10*3/uL [facility] Body fluid protein measureme nt (mass/volume)Ordered By: Kenney Vizcarra on 01-24-2023 Protein (Body fld) [Mass/Vol] 4.0 g/dL Not Establ. [facility] Gram stain for investigation of transfusion reactionOrdered By: Kenney Vizcarra on 01-24-2023 Microscopic observation Gram stain Nom (Unsp spec) [facility] Mononuclear cells Auto (Body fld) [#/Vol]Ordered By: Kenney Vizcarra on 01-24-2023 Mononuclear cells (Body fld) [#/Vol] 0.403 10*3/uL [facility] No Panel InformationOrdered By: Kenney Vizcarra on 01-24-2023 Body Fluid Comment 2 SEE COMMENT [facility] Body Fluid Mononuclear WBCs (%) 27.3 % [facility] Body Fluid Pathologist Comment May follow [facility] Body Fluid Pathologist Comment Reviewed [facility] Comment on above: Previous reported re sult: May follow Edited by: HILARY on 01/26/23:1019Negative for malignant cells.Acute inflammation.Gonzalez Benavidez M.D. 01/26/23 AMENDED REPORT 01/26/23 1019 PATH COMM/BF previously reported as: May follow Body Fluid Polynuclear WBCs (#) 1.073 10^3/uL [facility] Body Fluid Polynuclear WBCs (%) 72.7 % [facility] Body Fluid Glucose 126 mg/dL 40-70 [facility] Body Fluid Glucose 124 mg/dL 40-70 [facility] Comment on above: Previous reported re sult: 126 mg/dLEdited by: MARCIA on 01/31/23:1554 AMENDED REPORT 01/31/23 1554 GLU,BF previously reported as: 126 H mg/dL Specimen source identificati on of body fluidOrdered By: Kenney Vizcarra on 01-24-2023 Specimen source Nom (Body fld) THORACENTESIS [facility] Total cell countOrdered By: Kenney Vizcarra on 01-24-2023 Cells counted Molgen (Bld/Tiss) [#] 1.476 10^3/ul 0.000-0.000 [facility] Comment on above: This is the Total Nu mber of Nucleated Cell Types in the Body Fluid. Absolute lymphocyte countOrd ered By: Max Lara on 01-23-2023 Lymphocytes Auto (Unsp spec) [#/Vol] 1.10 10*3/uL 0.83-4.51 [facility] Basophil percentageOrdered B y: Max Lara on 01-23-2023 Basophils/100 WBC (Bld) 0.5 % 0-1 [facility] Bilirubin [Mass/Vol] 0.20 mg/dL 0.20-1.00 [facility] Comment on above: For patients on eltr ombopag therapy, use of Dim[place] TBIL is not recommended. Chloride [Moles/Vol] 103 mmol/L 98-107 [facility] Eosinophils/100 WBC (Bld) 1.9 % 0-5 [facility] Glucose [Mass/Vol] 258 mg/dL 74-106 [facility] Comment on above: Glucose result great er than or equal to 200 mg/dLsuggests DIABETES MELLITUS per A.D.A. criteria. Lactate [Moles/Vol] 1.6 mmol/L 0.4-2.0 [facility] Neutrophils (Bld) [#/Vol] 7.5 10*3/uL 2.0-7.7 [facility] Neutrophils/100 WBC (Bld) 77.1 % 47-70 [facility] Potassium [Moles/Vol] 3.9 mmol/L 3.5-5.1 [facility] Protein [Mass/Vol] 6.8 g/dL 6.4-8.2 [facility] Sodium [Moles/Vol] 135 mmol/L 136-145 [facility] WBC (Bld) [#/Vol] 9.8 10*3/uL 4.4-11.0 [facility] Blood erythrocytes count (nu mber/volume)Ordered By: Max Lara on 01-23-2023 RBC (Bld) [#/Vol] 3.38 10*6/uL 4.2-5.4 [facility] Blood hemoglobin measurement (mass/volume)Ordered By: Max Lara on 01-23-2023 Hemoglobin (Bld) [Mass/Vol] 10.4 g/dL 12.0-15. 0 [facility] Blood lymphocytes/100 leukoc ytesOrdered By: Max Lara on 01-23-2023 Lymphocytes/100 WBC (Bld) 11.3 % 19-41 [facility] Blood monocytes/100 leukocyt esOrdered By: Max Lara on 01-23-2023 Monocytes/100 WBC (Bld) 8.5 % 0-10 [facility] Blood platelet mean volumeOr dered By: Max Lara on 01-23-2023 Platelet mean volume (Bld) [Entitic vol] 9.4 fL 6.2-12.0 [facility] Determination of erythrocyte mean corpuscular volume (MCV)Ordered By: Max Lara on 01-23-2023 MCV (RBC) [Entitic vol] 95.0 fL 81-99 [facility] Direct bilirubinOrdered By: Max Lara on 01-23-2023 Bilirubin.direct [Mass/Vol] 0.12 mg/dL 0.00-0.3 0 [facility] Hematocrit Auto (Bld) [Volum e fraction]Ordered By: Max Lara on 01-23-2023 Hematocrit (Bld) [Volume fraction] 32.1 % 37-47 [facility] INR in Blood by Coagulation assayOrdered By: Max Lara on 01-23-2023 INR Coag (Bld) [Relative time] 3.0 {INR} [facility] Influenza virus A and B and SARS-CoV-2 (COVID-19) Ag panel - Upper respiratory specimOrdered By: Max Lara on 01-23-2023 SARS-CoV-2 (COVID-19) RNA SEEMA+probe Ql (Resp) [facility] Laboratory - Chemistry and C hemistry - challengeOrdered By: Max Lara on 01-23-2023 ALP [Catalytic activity/Vol] 67 U/L 45-117 [facility] ALT [Catalytic activity/Vol] 15 U/L 13-56 [facility] CO2 [Moles/Vol] 27.0 mmol/L 21.0-32.0 [facility] Globulin (S) [Mass/Vol] 4.4 g/dL 2.2-4.2 [facility] Urea nitrogen/Creatinine [Mass ratio] 24.6 mg/mg 10-20 [facility] - CoagulationOrde red By: Max Lara on 01-23-2023 aPTT Coag (Bld) [Time] 80.7 s 24.1-36.2 [facility] PT Coag (PPP) [Time] 31.5 s 11.7-14.9 [facility] - Hematology and Cell countsOrdered By: Max Lara on 01-23-2023 Erythrocyte distribution width (RBC) [Entitic vol] 47.4 fL 35.1-43.9 [facility] Erythrocyte distribution width (RBC) [Ratio] 13.6 % 11.6-14.6 [facility] Immature granulocytes/100 WBC (Bld) 0.700 % 0.0-0.9 [facility] Comment on above: IG% - Immature Granu locytes (promyelocytes, myelocytes and metamyelocytes) > 1% indicates that a LEFT SHIFT is Present. MCH (RBC) [Entitic mass] 30.8 pg 27.0-32.0 [facility] Nucleated RBC/100 WBC (Bld) [Ratio] 0 % 0-5 [facility] MCHC Auto (RBC) [Mass/Vol]Or dered By: Max Lara on 01-23-2023 MCHC (RBC) [Mass/Vol] 32.4 g/dL 32-36 [facility] No Panel InformationOrdered By: Max Lara on 01-23-2023 Estimated Creatinine Clearance Calc 57.90 ml/min [facility] Estimated GFR (MDRD) Amer 85 mL/min >60 [facility] Comment on above: GFR Calc Estimated GFR (MDRD) Non-Af Amer 71 mL/min >60 [facility] Comment on above: Non- GFR Calc Platelets bldOrdered By: Felix Lara on 01-23-2023 Platelets (Bld) [#/Vol] 293 10*3/uL 150-450 [facility] Serum or plasma albumin jatin urement (mass/volume)Ordered By: Max Lara on 01-23-2023 Albumin [Mass/Vol] 2.4 g/dL 3.2-5.0 [facility] Serum or plasma calcium jatin urement (mass/volume)Ordered By: Max Lara on 01-23-2023 Calcium [Mass/Vol] 8.4 mg/dL 8.5-10.1 [facility] Serum or plasma creatinine m easurement (mass/volume)Ordered By: Max Lara on 01-23-2023 Creatinine [Mass/Vol] 0.86 mg/dL 0.55-1.02 [facility] Comment on above: The validity of the calculated GFR & GFRAA in patients over 70 years has not been determined. Clinical correlation is essential. Serum or plasma urea nitroge n measurement (mass/volume)Ordered By: Max Lara on 01-23-2023 Urea nitrogen [Mass/Vol] 21 mg/dL 7-18 [facility] Thin prep Papanicolaou smear with manual screeningOrdered By: Max Lara on 01-23-2023 Thin prep Papanicolaou smear with manual screening 9 U/L 15-37 [facility] Thin prep Papanicolaou smear with manual screening 5 5-15 [facility] Absolute lymphocyte countOrd ered By: Osiris Arana on 01-20-2023 Lymphocytes Auto (Unsp spec) [#/Vol] 2.12 10*3/uL 0.83-4.51 [facility] Basophil percentageOrdered B y: Osiris Arana on 01-20-2023 Basophils/100 WBC (Bld) 0.3 % 0-1 [facility] Chloride [Moles/Vol] 106 mmol/L 98-107 [facility] Eosinophils/100 WBC (Bld) 0.6 % 0-5 [facility] Glucose [Mass/Vol] 112 mg/dL 74-106 [facility] Comment on above: Fasting Glucose resu lt from 100 to 125 mg/dL suggests IMPAIRED HOMEOSTASIS per A.D.A. criteria. Neutrophils (Bld) [#/Vol] 7.2 10*3/uL 2.0-7.7 [facility] Neutrophils/100 WBC (Bld) 68.6 % 47-70 [facility] Potassium [Moles/Vol] 4.5 mmol/L 3.5-5.1 [facility] Sodium [Moles/Vol] 138 mmol/L 136-145 [facility] WBC (Bld) [#/Vol] 10.5 10*3/uL 4.4-11.0 [facility] Blood erythrocytes count (nu mber/volume)Ordered By: Osiris Arana on 01-20-2023 RBC (Bld) [#/Vol] 3.61 10*6/uL 4.2-5.4 [facility] Blood hemoglobin measurement (mass/volume)Ordered By: Osiris Arana on 01-20-2023 Hemoglobin (Bld) [Mass/Vol] 11.3 g/dL 12.0-15. 0 [facility] Blood lymphocytes/100 leukoc ytesOrdered By: Osiris Arana on 01-20-2023 Lymphocytes/100 WBC (Bld) 20.2 % 19-41 [facility] Blood monocytes/100 leukocyt esOrdered By: Osiris Arana on 01-20-2023 Monocytes/100 WBC (Bld) 9.0 % 0-10 [facility] Blood platelet mean volumeOr dered By: Osiris Arana on 01-20-2023 Platelet mean volume (Bld) [Entitic vol] 10.1 fL 6.2-12.0 [facility] Determination of erythrocyte mean corpuscular volume (MCV)Ordered By: Osiris Arana on 01-20-2023 MCV (RBC) [Entitic vol] 95.8 fL 81-99 [facility] Hematocrit Auto (Bld) [Volum e fraction]Ordered By: Osiris Arana on 01-20-2023 Hematocrit (Bld) [Volume fraction] 34.6 % 37-47 [facility] INR in Blood by Coagulation assayOrdered By: Osiris Arana on 01-20-2023 INR Coag (Bld) [Relative time] 2.3 {INR} [facility] - Chemistry and C hemistry - challengeOrdered By: Osiris Arana on 01-20-2023 CO2 [Moles/Vol] 29.0 mmol/L 21.0-32.0 [facility] Urea nitrogen/Creatinine [Mass ratio] 30.4 mg/mg 10-20 [facility] - CoagulationOrde red By: Osiris Arana on 01-20-2023 PT Coag (PPP) [Time] 25.5 s 11.7-14.9 [facility] - Hematology and Cell countsOrdered By: Osiris Arana on 01-20-2023 Erythrocyte distribution width (RBC) [Entitic vol] 49.1 fL 35.1-43.9 [facility] Erythrocyte distribution width (RBC) [Ratio] 13.9 % 11.6-14.6 [facility] Immature granulocytes/100 WBC (Bld) 1.300 % 0.0-0.9 [facility] Comment on above: IG% - Immature Granu locytes (promyelocytes, myelocytes and metamyelocytes) > 1% indicates that a LEFT SHIFT is Present. MCH (RBC) [Entitic mass] 31.3 pg 27.0-32.0 [facility] Nucleated RBC/100 WBC (Bld) [Ratio] 0 % 0-5 [facility] MCHC Auto (RBC) [Mass/Vol]Or dered By: Osiris Arana on 01-20-2023 MCHC (RBC) [Mass/Vol] 32.7 g/dL 32-36 [facility] No Panel InformationOrdered By: Osiris Arana on 01-20-2023 Estimated Creatinine Clearance Calc 43.30 ml/min [facility] Estimated GFR (MDRD) Amer 61 mL/min >60 [facility] Comment on above: GFR Calc Estimated GFR (MDRD) Non-Af Amer 50 mL/min >60 [facility] Comment on above: Non- GFR Calc Troponin I High Sensitivity < 3 pg/mL 3.0-54.0 [facility] Comment on above: Please Note: New Arti t Units and Gender Specific Reference Ranges. For more information see Policy Stat Procedure [place] High Sensitivity Troponin (TNIH) and attachments. Platelets bldOrdered By: Anastacia Arana on 01-20-2023 Platelets (Bld) [#/Vol] 262 10*3/uL 150-450 [facility] Serum or plasma calcium jatin urement (mass/volume)Ordered By: Osiris Arana on 01-20-2023 Calcium [Mass/Vol] 9.0 mg/dL 8.5-10.1 [facility] Serum or plasma creatinine m easurement (mass/volume)Ordered By: Osiris Arana on 01-20-2023 Creatinine [Mass/Vol] 1.15 mg/dL 0.55-1.02 [facility] Comment on above: The validity of the calculated GFR & GFRAA in patients over 70 years has not been determined. Clinical correlation is essential. Serum or plasma urea nitroge n measurement (mass/volume)Ordered By: Osiris Arana on 01-20-2023 Urea nitrogen [Mass/Vol] 35 mg/dL 7-18 [facility] Thin prep Papanicolaou smear with manual screeningOrdered By: Osiris Arana on 01-20-2023 Thin prep Papanicolaou smear with manual screening 3 5-15 [facility] Albumin Elph [Mass/Vol]Order ed By: Dr. Rasmussen on 12-25-2022 Albumin [Mass/Vol] 3.4 g/dL 2.9-4.4 [facility] Interpretation of serum or p lasma protein pattern by immunofixation (narrative resultOrdered By: Dr. Rasmussen on 12-25-2022 Protein Fractions Immunofixation Arnav [Interp] See comment [facility] Comment on above: Due to the small yelena ntity of monoclonal protein, unable toquantitate the M-spike. No Panel InformationOrdered By: Dr. Rasmussen on 12-25-2022 Addendum Document Comment . [facility] Comment on above: Protein electrophore sis scan will follow via computer,mail, or machine fastener delivery.Performed at: - [facility] [id number] Director: Herb Kincaid PhD, Phone: [phone] Thyroid Stimulating Hormone (TSH) 0.81 uIU/mL 0.358-3.74 [facility] Serum [id number] measu rement by electrophoresisOrdered By: Dr. Rasmussen on 12-25-2022 Alpha 1 globulin Elph [Mass/Vol] 0.2 g/dL 0.0-0.4 [facility] Alpha 1 globulin Elph [Mass/Vol] 0.9 g/dL 0.4-1.0 [facility] Serum globulin measurement ( mass/volume)Ordered By: Dr. Rasmussen on 12-25-2022 Globulin (S) [Mass/Vol] 3.2 g/dL 2.2-3.9 [facility] Serum or plasma IgA measurem ent (mass/volume)Ordered By: Dr. Rasmussen on 12-25-2022 IgA [Mass/Vol] 157 mg/dL 87-352 [facility] Serum or plasma IgG measurem ent (mass/volume)Ordered By: Dr. Rasmussen on 12-25-2022 IgG [Mass/Vol] 1074 mg/dL 586-1602 [facility] Serum or plasma IgM measurem ent (mass/volume)Ordered By: Dr. Rasmussen on 12-25-2022 IgM [Mass/Vol] 96 mg/dL 26-217 [facility] Serum or plasma beta globuli n measurement by electrophoresis (mass/volume)Ordered By: Dr. Rasmussen on 12-25-2022 Beta globulin Elph [Mass/Vol] 1.0 g/dL 0.7-1.3 [facility] Serum or plasma folate measu rement (mass/volume)Ordered By: Dr. Rasmussen on 12-25-2022 Folate [Mass/Vol] 18.90 ng/mL 3.1-55.4 [facility] Serum or plasma gamma globul in measurement by electrophoresis (mass/volume)Ordered By: Dr. Rasmussen on 12-25-2022 Gamma globulin Elph [Mass/Vol] 1.0 g/dL 0.4-1.8 [facility] Serum or plasma immunoelectr ophoresis interpretation (nominal result)Ordered By: Dr. Rasmussen on 12-25-2022 Interpretation IEP [Interp] Comment . [facility] Comment on above: Immunofixation shows IgG monoclonal protein with lambdalight chain specificity. Thin prep Papanicolaou smear with manual screeningOrdered By: Dr. Rasmussen on 12-25-2022 Thin prep Papanicolaou smear with manual screening 1.1 0.7-1.7 [facility] Total protein bloodOrdered B y: Dr. Rasmussen on 12-25-2022 Protein [Mass/Vol] 6.6 g/dL 6.0-8.5 [facility] Basophil percentageOrdered B y: Dr. Rasmussen on 11-06-2022 WBC (Bld) [#/Vol] 8.5 10*3/uL 4.4-11.0 [facility] Blood erythrocytes count (nu mber/volume)Ordered By: Dr. Rasmussen on 11-06-2022 RBC (Bld) [#/Vol] 4.00 10*6/uL 4.2-5.4 [facility] Blood hemoglobin measurement (mass/volume)Ordered By: Dr. Rasmussen on 11-06-2022 Hemoglobin (Bld) [Mass/Vol] 12.5 g/dL 12.0-15. 0 [facility] Blood platelet mean volumeOr dered By: Dr. Rasmussen on 11-06-2022 Platelet mean volume (Bld) [Entitic vol] 10.4 fL 6.2-12.0 [facility] Determination of erythrocyte mean corpuscular volume (MCV)Ordered By: Dr. Rasmussen on 11-06-2022 MCV (RBC) [Entitic vol] 96.3 fL 81-99 [facility] Hematocrit Auto (Bld) [Volum e fraction]Ordered By: Dr. Rasmussen on 11-06-2022 Hematocrit (Bld) [Volume fraction] 38.5 % 37-47 [facility] Iron measurement (mass/mass) Ordered By: Dr. Rasmussen on 11-06-2022 Iron (Unsp spec) [Mass/Mass] 58 ug/dL 50-170 [facility] - Hematology and Cell countsOrdered By: Dr. Rasmussen on 11-06-2022 Erythrocyte distribution width (RBC) [Entitic vol] 47.3 fL 35.1-43.9 [facility] Erythrocyte distribution width (RBC) [Ratio] 13.2 % 11.6-14.6 [facility] MCH (RBC) [Entitic mass] 31.3 pg 27.0-32.0 [facility] MCHC Auto (RBC) [Mass/Vol]Or dered By: Dr. Rasmussen on 11-06-2022 MCHC (RBC) [Mass/Vol] 32.5 g/dL 32-36 [facility] Platelets bldOrdered By: Dr. Rasmussen on 11-06-2022 Platelets (Bld) [#/Vol] 288 10*3/uL 150-450 [facility] Serum or plasma ferritin karina surement (mass/volume)Ordered By: Dr. Rasmussen on 11-06-2022 Ferritin [Mass/Vol] 143 ng/mL 8-252 [facility] Albumin Elph [Mass/Vol]Order ed By: Dr. Rasmussen on 08-31-2022 Albumin [Mass/Vol] 3.4 g/dL 2.9-4.4 [facility] Basophil percentageOrdered B y: Dr. Rasmussen on 08-31-2022 Basophil percentage Comment . [facility] Comment on above: No monoclonality det ected.Performed at: [facility] [id number] Director: Herb Kincaid PhD, Phone: [phone] at: [facility] [id number] Director: Kimberly Langford MD, Phone: [phone] Interpretation of serum or p lasma protein pattern by immunofixation (narrative resultOrdered By: Dr. Rasmussen on 08-31-2022 Protein Fractions Immunofixation Arnav [Interp] See comment [facility] Comment on above: NOT OBSERVED No Panel InformationOrdered By: Dr. Rasmussen on 08-31-2022 Addendum Document Comment . [facility] Comment on above: Protein electrophore sis scan will follow via computer,mail, or machine fastener delivery. Free Lambda Light Chains, Quant 27.3 mg/L 5.7-26.3 [facility] Whole Blood Vitamin B1 Level 191.0 nmol/L 66.5-200.0 [facility] Serum [id number]-[id number] measu rement by electrophoresisOrdered By: Dr. Rasmussen on 08-31-2022 Alpha 1 globulin Elph [Mass/Vol] 0.3 g/dL 0.0-0.4 [facility] Alpha 1 globulin Elph [Mass/Vol] 0.9 g/dL 0.4-1.0 [facility] Serum globulin measurement ( mass/volume)Ordered By: Dr. Rasmussen on 08-31-2022 Globulin (S) [Mass/Vol] 3.5 g/dL 2.2-3.9 [facility] Serum immunoglobulin kappa l ight chains/immunoglobulin lambda light chains mass ratioOrdered By: Dr. Rasmussen on 08-31-2022 Immunoglobulin light chains.kappa/Immunoglobulin light chains.lambda (S) [Mass ratio] 1.47 0.26-1.65 [facility] Serum or plasma IgA measurem ent (mass/volume)Ordered By: Dr. Rasmussen on 08-31-2022 IgA [Mass/Vol] 184 mg/dL 87-352 [facility] Serum or plasma IgG measurem ent (mass/volume)Ordered By: Dr. Rasmussen on 08-31-2022 IgG [Mass/Vol] 1167 mg/dL 586-1602 [facility] Serum or plasma IgM measurem ent (mass/volume)Ordered By: Dr. Rasmussen on 08-31-2022 IgM [Mass/Vol] 103 mg/dL 26-217 [facility] Serum or plasma beta globuli n measurement by electrophoresis (mass/volume)Ordered By: Dr. Rasmussen on 08-31-2022 Beta globulin Elph [Mass/Vol] 1.0 g/dL 0.7-1.3 [facility] Serum or plasma gamma globul in measurement by electrophoresis (mass/volume)Ordered By: Dr. Rasmussen on 08-31-2022 Gamma globulin Elph [Mass/Vol] 1.3 g/dL 0.4-1.8 [facility] Serum or plasma immunoelectr ophoresis interpretation (nominal result)Ordered By: Dr. Rasmussen on 08-31-2022 Interpretation IEP [Interp] Comment: . [facility] Comment on above: Presence of monoclon al protein is unclear at this time. Suggestrepeat in 3 to 6 months if clinically indicated. Serum or plasma immunoglobul in kappa light chains measurement (mass/volume)Ordered By: Dr. Rasmussen on 08-31-2022 Immunoglobulin light chains.kappa [Mass/Vol] 40.0 mg/L 3.3-19.4 [facility] Thin prep Papanicolaou smear with manual screeningOrdered By: Dr. Rasmussen on 08-31-2022 Thin prep Papanicolaou smear with manual screening 1.0 0.7-1.7 [facility] Total protein bloodOrdered B y: Dr. Rasmussen on 08-31-2022 Protein [Mass/Vol] 6.9 g/dL 6.0-8.5 [facility] Basophil percentageOrdered B y: Dr. Rasmussen on 07-24-2022 Basophil percentage < 0.9 mg/dL 0.55-1.02 [facility] No Panel InformationOrdered By: Dr. Rasmussen on 07-24-2022 Bedside Estimated GFR (eGFR) > 60.0000 mL/min >60 [facility] ANES POSTPROC EVALon 022 ANES POSTPROC EVAL HNO ID: [id number] Author: Osiris Kim MD Service: ? Author Type: Anesthesiologist Type: Anesthesia Postprocedure Evaluation Filed: 06/28/2022 1:23 PM Note Text: POST ANESTHESIA EVALUATION NOTE : 1955 Procedure Summary Date: 06/28/22 Room / Location: [facility] Endoscopy Anesthesia Start: 1132 Anesthesia Stop: 1221 Procedure: COLONOSCOPY SCREENING Diagnosis: History of colonic polyps (High risk colon cancer surveillance: Personal history of colonic polyps) Scheduled Providers: Asad Guerin MD; Nuris Lazcano APRN.SECURITIES SUPERVISOR; Osiris Kim MD Responsible Provider: Osiris Kim MD Anesthesia Type: MAC ASA Status: 3 Anesthesia Type: MAC Last Vitals Vitals Value Taken Time BP 138/63 06/28/22 1245 Temp 36.8 ?C (98.2 ?F) 06/28/22 1219 Pulse 63 06/28/22 1250 Resp 27 06/28/22 1249 SpO2 93 % 06/28/22 1250 Vitals shown include unvalidated device data. Post Anesthesia Patient Status Patient Evaluation: PACU. PACU/ICU Patient Condition: stable. Anticipated Disposition: phase 2 then home. Neurological Status: aware and responsive. Pulmonary Status: breathing comfortably on room air Airway Control: returned to baseline unsupported. Cardiovascular Status: stable. Pain Management: clinically adequate - multimodal analgesia pain management approach Postoperative Hydration: acceptable. Intraoperative Events: no significant anesthesia events Post Operative Nausea/Vomiting Status: no significant post operative nausea or vomiting Recommendation: continue current plan of care. Anesthesia Observations No Documentation SIGNATURE: Osiris Kim MD PATIENT NAME: Art Blue DATE: June 28, 2022 TIME: 1:23 PM CSN: [id number] Normal [facility] ANES PRE-OPon 06-28-2022 ANES PRE-OP HNO ID: [id number] Author: Osiris Kim MD Service: ? Author Type: Anesthesiologist Type: Anesthesia Preprocedure Evaluation Filed: 06/28/2022 10:52 AM Note Text: ANESTHESIOLOGY DAY OF SURGERY NOTE : 1955 Procedure Information Date/Time: 06/28/22 1300 Scheduled providers: Asad Guerin MD; Nuris Lazcano APRN.SECURITIES SUPERVISOR; Osiris Kim MD Procedure: COLONOSCOPY SCREENING Location: [facility] Endoscopy Estimated body mass index is 41.1 kg/m? as calculated from the following: Height as of 05/10/22: 165.1 cm (5' 5). Weight as of 05/10/22: 112 kg (247 lb). 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 Tracheostomy tube not present Mallampati: II. TM distance: >3 FB. Neck ROM: full ROM without neurological symptoms. Mouth opening: adequate. Short neck: no. Thick neck: no Rodriguez present: no DENTAL Dental findings: teeth intact. Additional exam findings: yes. CARDIOVASCULAR Rhythm: regular Rate: normal PULMONARY Breath sounds clear to auscultation. ABDOMINAL Obese: obesity present. II - ANESTHESIA PLAN ASA Score: 3 Anesthetic Plan: MAC The patient is not a current smoker. NPO Status: adequate Beta Gracie Monitoring Plan Monitoring plan: standard ASA. Post Procedure Analgesic Plan Postoperative analgesic plan: multimodal analgesia. Informed Consent Anesthetic risks, benefits, alternatives, personnel and consent discussed: yes. Patient / Responsible Democrat agrees to proceed: yes Patient / Surrogate agrees to blood products: blood products not planned DNR status not reviewed with patient and/or family prior to surgery. Significant changes in the patient condition since the History and Physical, not otherwise documented in primary service progress note: no. Potential Anesthesia issues that may suggest increased risk of complications or contraindication to planned procedure: none. Vitals Value Taken Time BP 143/69 06/28/22 1048 Pulse 73 06/28/22 1048 Resp 16 06/28/22 1048 Temp 36.1 ?C (97 ?F) 06/28/22 1044 SpO2 96 % 06/28/22 1048 Outpatient Medications as of 06/28/2022 Medication Sig - metFORMIN (GLUCOPHAGE) 500 mg tablet - warfarin (COUMADIN) 5 mg tablet - gabapentin (NEURONTIN) 300 mg capsule - rOPINIRole (REQUIP) 0.5 mg tablet Take by mouth twice daily. - venlafaxine (EFFEXOR) 75 mg tablet Take 1 tablet by mouth twice daily. - lisinopril-hydrochlo rothiazide (PRINZIDE,ZESTORETIC ) 10-12.5 mg per tablet Take 1 tablet by mouth once daily. - traZODone (DESYREL) 50 mg tablet Take 1 tablet by mouth daily at bedtime. - omeprazole (PRILOSEC) 20 mg capsule TAKE 1 CAPSULE TWICE A DAY 30 MINUTES BEFORE MEALS - Calcium Carb-Cholecalciferol (VINCENT-600 WITH VITAMIN D) 600 (1,500)-200 mg-unit ORAL Tab Take one(1) tablet twice daily. - busPIRone (BUSPAR) 5 mg tablet TAKE 1 TABLET BY MOUTH THREE TIMES DAILY NEEDED (ANXIETY). - polyethylene glycol 3350 (MIRALAX) 17 gram/dose powder 17 g/8 oz water daily as needed for constipation - COMPOUNDED PRESCRIPTION cpap supplies: DX: sleep apnea - Biotin 10,000 mcg cap Take by mouth. - Ferrous Sulfate 325 mg (65 mg Iron) ORAL tablet Take one(1) tablet daily with food. - cyanocobalamin 500 mcg ORAL Tab Take one (1) tablet daily - multivitamin (DAILY VITAMIN) ORAL Tab Take one(1) tablet daily. Facility-Administere d Medications as of 06/28/2022 Medication Dose Route Frequency - lactated ringers iv infusion 30 mL/hr INTRAVENOUS CONTINUOUS I have interviewed and examined the patient. I have reviewed the medical record and/or the pre-anesthesia evaluation, pertinent labs, and test results. This contains updated information obtained within 48 hours of Surgery/Procedure. SIGNATURE: Osiris Kim MD PATIENT NAME: Art Blue DATE: June 28, 2022 TIME: 10:50 AM CSN: [id number] Normal [facility] COLONOSCOPY SCREENINGon 12-0 [facility] Colonoscopyon 06-28-2022 Colonoscopy [facility] Gastrointestinal Endoscopy Patient Name: Art Blue Procedure Date: 06/28/2022 11:25 AM Date of : 1955 Admit Type: Outpatient Age: 66 Room: [facility] Gender: Female Note Status: Finalized Attending MD: Asad Guerin MD Procedure: Colonoscopy Indications: High risk colon cancer surveillance: Personal history of colonic polyps Providers: Asad Guerin MD Patient Profile: This is a 66 year old female. Refer to note in patient chart for documentation of history and physical. Last Colonoscopy: December 2013. Referring Physician: Allyson Whitmore (pa) (Referring MD) Medicines: See the Anesthesia note for documentation of the administered medications Complications: No immediate complications. Estimated blood loss: None. Requesting Provider: Procedure: Pre-Anesthesia Assessment: - Prior to the procedure, a History and Physical was performed, and patient medications and allergies were reviewed. The patient's tolerance of previous anesthesia was also reviewed. The risks and benefits of the procedure and the sedation options and risks were discussed with the patient. All questions were answered, and informed consent was obtained. Prior Anticoagulants: The patient has taken Coumadin (warfarin), last dose was 1 day prior to procedure. ASA Grade Assessment: III - A patient with severe systemic disease. After reviewing the risks and benefits, the patient was deemed in satisfactory condition to undergo the procedure. After I obtained informed consent, the scope was passed under direct vision. Throughout the procedure, the patient's blood pressure, pulse, and oxygen saturations were monitored continuously. The Colonoscope was introduced through the anus with the intention of advancing to the cecum. The scope was advanced to the hepatic flexure before the procedure was aborted. Medications were given. The colonoscopy was extremely difficult due to a tortuous colon. Successful completion of the procedure was aided by using manual pressure. The patient tolerated the procedure well. The quality of the bowel preparation was good. No anatomical landmarks were photographed. Moderate Sedation: MAC anesthesia was administered by the anesthesia team. Total Procedure Duration: 0 hours 34 minutes 20 seconds Findings: The perianal and digital rectal examinations were normal. A few small-mouthed diverticula were found in the sigmoid colon. The exam was otherwise without abnormality. Impression: - Diverticulosis in the sigmoid colon. - The examination was otherwise normal. - No specimens collected. Recommendation: - Patient has a contact number available for emergencies. The signs and symptoms of potential delayed complications were discussed with the patient. Return to normal activities tomorrow. Written discharge instructions were provided to the patient. - Resume previous diet. - Continue present medications. - Repeat colonoscopy in 5 years for surveillance. - Perform an air contrast barium enema today. - Resume anticoagulant at prior dose. Procedure Code(s): --- Professional --- 69071, 53, Colonoscopy, flexible; diagnostic, including collection of specimen(s) by brushing or washing, when performed (separate procedure) Diagnosis Code(s): --- Professional --- Z12.11, Encounter for screening for malignant neoplasm of colon Z86.010, Personal history of colonic polyps K57.30, Diverticulosis of large intestine without perforation or abscess without bleeding CPT copyright 2020 [employer]. All rights reserved. The codes documented in this report are preliminary and upon psychiatric aides teacher review may be revised to meet current compliance requirements. Attending Participation: I personally performed the entire procedure. Scope In: 11:38:38 AM Scope Out: 12:12:58 PM MD Asad Carrillo MD 06/28/2022 12:22:59 PM This report has been signed electronically by Asad Guerin MD Number of Addenda: 0 Note Initiated On: 06/28/2022 11:25 AM Estimated Blood Loss: Estimated blood loss: none. Normal [facility] GLUCOSE, BLOOD (POC)on 06-28 Glucose [Mass/Vol] 122 mg/dL Abnormal 74 - 99 mg/dL [facility] HISTORY PHYSICALon 2 HISTORY PHYSICAL HNO ID: [id number] Author: Asad Guerin MD Service: General Surgery Author Type: Physician Type: HANDP Filed: 06/28/2022 11:34 AM Note Text: HISTORY AND PHYSICAL Art Blue 1955 REFERRING PHYSICIAN: Autumn Almanzar, * CHIEF COMPLAINT: Consult (colonoscopy) HPI: The patient is a 66 year old female referred for endoscopy. Art notes a history of colon polyps. Patient denies any change in bowel habits, weight changes, blood in stools, black tarry stools or abdominal pain. Denies family history of colon issues. The patient notes no upper GI complaints. Art has undergone prior endoscopy. The patient had a colonoscopy in December [address] Guerin with removal of adenomatous polyp. She also had a colonoscopy with Dr. Guerin in 2016 at [facility] which was incomplete. Per operative report, the scope could not be advanced past the hepatic flexure at that time and patient required a completion barium enema. Report of barium enema not available for review. Patient did not recall difficulties from that colonoscopy or any abnormalities with the barium enema. Patient's past medical history is significant for chronic kidney disease, diabetes, hypertension, GERD, DVT, PE, meningioma. She follows with Dr. Almanzar in primary care. Patient denies chest pain, shortness of breath or recent hospitalizations. Denies problems with sedation in the past. 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 Essential hypertension, benign 08/15/2010 GERD (gastroesophageal reflux disease) 03/14/2012 Hemorrhage of gastrointestinal tract, unspecified Hyperlipidemia LDL goal < 100 05/13/2014 Incisional hernia 02/12/14 Meningioma (HCC) 12/26/2017 12/26/17: 5 mm. 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) 06/15/2015 Type II or unspecified type diabetes mellitus without mention of complication, uncontrolled PAST SURGICAL HISTORY PAST SURGICAL HISTORY Procedure Laterality Date ESOPHAGOGASTRODUODEN OSCOPY TRANSORAL DIAGNOSTIC 05/27/08 GASTRIC BYPASS 05/28/2006 IRIDOTOMY/IRIDECTOMY BY LASER 2004 bilat NEUROPLASTY AND/TRANSPOS MEDIAN NRV CARPAL TUNNE 10/31/2013 Carpal tunnel decomp Left PAST SURGICAL HISTORY OF abdiel REPAIR INCISIONAL HERNIA 02/12/[address] Guerin CURRENT MEDICATIONS Current Outpatient Medications Medication Sig metFORMIN (GLUCOPHAGE) 500 mg tablet warfarin (COUMADIN) 5 mg tablet gabapentin (NEURONTIN) 300 mg capsule rOPINIRole (REQUIP) 0.5 mg tablet Take by mouth twice daily. busPIRone (BUSPAR) 5 mg tablet TAKE 1 TABLET BY MOUTH THREE TIMES DAILY NEEDED (ANXIETY). venlafaxine (EFFEXOR) 75 mg tablet Take 1 tablet by mouth twice daily. lisinopril-hydrochlo rothiazide (PRINZIDE,ZESTORETIC ) 10-12.5 mg per tablet Take 1 tablet by mouth once daily. traZODone (DESYREL) 50 mg tablet Take 1 tablet by mouth daily at bedtime. omeprazole (PRILOSEC) 20 mg capsule TAKE 1 CAPSULE TWICE A DAY 30 MINUTES BEFORE MEALS COMPOUNDED PRESCRIPTION cpap supplies: DX: sleep apnea Biotin 10,000 mcg cap Take by mouth. Ferrous Sulfate 325 mg (65 mg Iron) ORAL tablet Take one(1) tablet daily with food. cyanocobalamin 500 mcg ORAL Tab Take one (1) tablet daily multivitamin (DAILY VITAMIN) ORAL Tab Take one(1) tablet daily. Calcium Carb-Cholecalciferol (VINCENT-600 WITH VITAMIN D) 600 (1,500)-200 mg-unit ORAL Tab Take one(1) tablet twice daily. polyethylene glycol 3350 (MIRALAX) 17 gram/dose powder 17 g/8 oz water daily as needed for constipation No current facility-administere d medications for this visit. ALLERGIES: Augmentin [Amoxicillin-Pot Clavulanate], Bactrim [Sulfamethoxazole-Tr imethoprim], and Lipitor [Atorvastatin Calcium] PERSONAL HISTORY: SOCIAL HISTORY Social History Tobacco Use Smoking status: Former Packs/day: 1.50 Years: 35.00 Pack years: 52.50 Types: Cigarettes, Cigars Smokeless tobacco: Never Tobacco comments: 01/20/14 Vaping Use Vaping Use: Never used Substance Use Topics Alcohol use: No Drug use: No FAMILY HISTORY: FAMILY HISTORY FAMILY HISTORY Problem Relation Age of Onset Hypertension Mother Arthritis Mother Heart Father Hypertension Father Hypertension Brother Cancer Brother something in his face REVIEW OF SYMPTOMS: The review of systems data was entered by the nurse and reviewed by hi Nursing Notes: Em Park RN 04/28/2022 11:01 AM Signed REVIEW OF SYSTEMS: General: The patient NOTES fatigue, denies weight loss, denies weight gain, NOTES feeling hot, and denies feelings of (more content not included)... [facility] XR COLON ROUTINE DOUBLE CONT [facility] 06-28-2022 XR COLON ROUTINE DOUBLE CONTRAST * * *Final Report* * * DATE OF EXAM: Jun 28 2022 2:20PM MDX [id number] - XR COLON ROUTINE DOUBLE CONTRAST / PROCEDURE REASON: FAILED COLONSCOPY * * * * Physician Interpretation * * * * PROCEDURE: Air contrast barium enema INDICATION: FAILED COLONOSCOPY.. Screening for colon cancer COMPARISON: None Fluoroscopic Radiation Summary: Plane A, Air Kerma: 246.0 mGy Dose Area Product (DAP): 0.0 mGy*cm^2 Fluoro time: 2:19 min:sec FINDINGS: The fashion design professor image demonstrates a large amount of colonic gas from earlier colonoscopy. This made filling of the colon difficult. However, thick barium was instilled using gravity through the rectum. After turning the patient multiple times, contrast did reach the cecum and filled the appendix. IVC filter is noted. There are a few scattered sigmoid and right colonic diverticula. No mass, sizable polyp or stricture is seen. IMPRESSION: Mild colonic diverticulosis. Tube Builder: PSCB Transcribe Date/Time: Jun 28 2022 4:25P Dictated by : RAMONITA GONZALEZ MD This examination was interpreted and the report reviewed and electronically signed by: RAMONITA GONZALEZ MD on Jun 28 2022 4:29PM EST [id number] CN [facility] Absolute lymphocyte countOrd ered By: Dr. Almanzar on 06-08-2022 Lymphocytes Auto (Unsp spec) [#/Vol] 2.62 10*3/uL 0.83-4.51 [facility] Basophil percentageOrdered B y: Dr. Almanzar on 06-08-2022 Basophil percentage 3.0 mg/dL 2.5-4.9 [facility] Basophils/100 WBC (Bld) 0.5 % 0-1 [facility] Bilirubin [Mass/Vol] 0.30 mg/dL 0.20-1.00 [facility] Comment on above: For patients on eltr ombopag therapy, use of Dimension [place] TBIL is not recommended. Chloride [Moles/Vol] 104 mmol/L 98-107 [facility] Cholesterol [Mass/Vol] 203 mg/dL <200 [facility] Comment on above: <200 mg/dL Desirable 200-240 mg/dL Borderline >240 mg/dL High Risk Eosinophils/100 WBC (Bld) 1.9 % 0-5 [facility] Glucose [Mass/Vol] 139 mg/dL 74-106 [facility] Comment on above: Fasting Glucose resu lt greater than or equal to 126 mg/dL suggests DIABETES MELLITUS per A.D.A. criteria. Neutrophils (Bld) [#/Vol] 4.2 10*3/uL 2.0-7.7 [facility] Neutrophils/100 WBC (Bld) 55.5 % 47-70 [facility] Potassium [Moles/Vol] 3.6 mmol/L 3.5-5.1 [facility] Protein [Mass/Vol] 7.6 g/dL 6.4-8.2 [facility] Sodium [Moles/Vol] 138 mmol/L 136-145 [facility] Triglyceride [Mass/Vol] 168 mg/dL <199 [facility] Comment on above: The drugs N-Acetylcy steine and Metamizole may falsely depress this assay.Serum Triglycerides Reference Interval Normal <150 mg/dL Borderline high 150 - 199 mg/dL High 200 - 499 mg/dL Very High > or = 500 mg/dL WBC (Bld) [#/Vol] 7.5 10*3/uL 4.4-11.0 [facility] Blood erythrocytes count (nu mber/volume)Ordered By: Dr. Almanzar on 06-08-2022 RBC (Bld) [#/Vol] 4.14 10*6/uL 4.2-5.4 [facility] Blood hemoglobin measurement (mass/volume)Ordered By: Dr. Almanzar on 06-08-2022 Hemoglobin (Bld) [Mass/Vol] 12.5 g/dL 12.0-15. 0 [facility] Blood lymphocytes/100 leukoc ytesOrdered By: Dr. Almanzar on 06-08-2022 Lymphocytes/100 WBC (Bld) 34.7 % 19-41 [facility] Blood monocytes/100 leukocyt esOrdered By: Dr. Almanzar on 06-08-2022 Monocytes/100 WBC (Bld) 7.0 % 0-10 [facility] Blood platelet mean volumeOr dered By: Dr. Almanzar on 06-08-2022 Platelet mean volume (Bld) [Entitic vol] 10.5 fL 6.2-12.0 [facility] Determination of erythrocyte mean corpuscular volume (MCV)Ordered By: Dr. Almanzar on 06-08-2022 MCV (RBC) [Entitic vol] 94.0 fL 81-99 [facility] Hematocrit Auto (Bld) [Volum e fraction]Ordered By: Dr. Almanzar on 06-08-2022 Hematocrit (Bld) [Volume fraction] 38.9 % 37-47 [facility] Iron measurement (mass/mass) Ordered By: Dr. Almanzar on 06-08-2022 Iron (Unsp spec) [Mass/Mass] 50 ug/dL 50-170 [facility] Laboratory - Chemistry and C hemistry - challengeOrdered By: Dr. Almanzar on 06-08-2022 ALP [Catalytic activity/Vol] 67 U/L 45-117 [facility] ALT [Catalytic activity/Vol] 33 U/L 13-56 [facility] CO2 [Moles/Vol] 26.0 mmol/L 21.0-32.0 [facility] Cobalamin (Vitamin B12) [Mass/Vol] 1183 pg/mL 211-911 [facility] Globulin (S) [Mass/Vol] 4.1 g/dL 2.2-4.2 [facility] Magnesium [Mass/Vol] 2.1 mg/dL 1.6-2.6 [facility] Urea nitrogen/Creatinine [Mass ratio] 26.8 mg/mg 10-20 [facility] Laboratory - Hematology and Cell countsOrdered By: Dr. Almanzar on 06-08-2022 Erythrocyte distribution width (RBC) [Entitic vol] 46.7 fL 35.1-43.9 [facility] Erythrocyte distribution width (RBC) [Ratio] 13.6 % 11.6-14.6 [facility] Immature granulocytes/100 WBC (Bld) 0.400 % 0.0-0.9 [facility] Comment on above: IG% - Immature Granu locytes (promyelocytes, myelocytes and metamyelocytes) > 1% indicates that a LEFT SHIFT is Present. MCH (RBC) [Entitic mass] 30.2 pg 27.0-32.0 [facility] Nucleated RBC/100 WBC (Bld) [Ratio] 0 % 0-5 [facility] MCHC Auto (RBC) [Mass/Vol]Or dered By: Dr. Almanzar on 06-08-2022 MCHC (RBC) [Mass/Vol] 32.1 g/dL 32-36 [facility] No Panel InformationOrdered By: Dr. Almanzar on 06-08-2022 Estimated GFR (MDRD) Amer 95 mL/min >60 [facility] Comment on above: GFR Calc Estimated GFR (MDRD) Non-Af Amer 78 mL/min >60 [facility] Comment on above: Non- GFR Calc Platelets bldOrdered By: Dr. Almanzar on 06-08-2022 Platelets (Bld) [#/Vol] 318 10*3/uL 150-450 [facility] Serum or plasma albumin jatin urement (mass/volume)Ordered By: Dr. Almanzar on 06-08-2022 Albumin [Mass/Vol] 3.5 g/dL 3.2-5.0 [facility] Serum or plasma albumin/glob ulin mass ratioOrdered By: Dr. Almanzar on 06-08-2022 Albumin/Globulin [Mass ratio] 0.9 {ratio} 0.9-2.4 [facility] Serum or plasma calcium jatin urement (mass/volume)Ordered By: Dr. Almanzar on 06-08-2022 Calcium [Mass/Vol] 9.1 mg/dL 8.5-10.1 [facility] Serum or plasma cholesterol in HDL measurement (mass/volume)Ordered By: Dr. Almanzar on 06-08-2022 Cholesterol in HDL [Mass/Vol] 51 mg/dL >40 [facility] Comment on above: The drugs N-Acetylcy steine and Metamizole may falsely depress this assay. Reference Range HDL <40 mg/dL Low HDL Cholesterol HDL >or= 60 mg/dL High HDL Cholesterol Serum or plasma cholesterol in VLDL measurement (mass/volume)Ordered By: Dr. Almanzar on 06-08-2022 Cholesterol in VLDL [Mass/Vol] 34 mg/dL 5-40 [facility] Serum or plasma creatinine m easurement (mass/volume)Ordered By: Dr. Almanzar on 06-08-2022 Creatinine [Mass/Vol] 0.78 mg/dL 0.55-1.02 [facility] Comment on above: The validity of the calculated GFR & GFRAA in patients over 70 years has not been determined. Clinical correlation is essential. Serum or plasma ferritin karina surement (mass/volume)Ordered By: Dr. Almanzar on 06-08-2022 Ferritin [Mass/Vol] 107 ng/mL 8-252 [facility] Serum or plasma low density lipoprotein (LDL) cholesterol measurement (mass/volume)Ordered By: Dr. Almanzar on 06-08-2022 Cholesterol in LDL [Mass/Vol] 118 mg/dL 0-130 [facility] Serum or plasma urea nitroge n measurement (mass/volume)Ordered By: Dr. Almanzar on 06-08-2022 Urea nitrogen [Mass/Vol] 21 mg/dL 7-18 [facility] Serum or plasma zinc measure ment (mass/volume)Ordered By: Dr. Almanzar on 06-08-2022 Zinc [Mass/Vol] 85 ug/dL 44-115 [facility] Comment on above: Detection Limit = 5P erformed at: - [facility] [id number] Director: Kimberly Langford MD, Phone: [phone] Thin prep Papanicolaou smear with manual screeningOrdered By: Dr. Almanzar on 06-08-2022 Thin prep Papanicolaou smear with manual screening 24 U/L 15-37 [facility] Thin prep Papanicolaou smear with manual screening 8 5-15 [facility] Whole blood hemoglobin A1c/t otal hemoglobin ratio (mass fraction)Ordered By: Dr. Almanzar on 06-08-2022 HbA1c (Bld) [Mass fraction] 7.1 % 3.8-5.6 [facility] Comment on above: Normal < 5.7 % Predi abetic 5.7 - 6.4 % Diabetic >or= 6.5 % Please note range changes. Albumin Elph [Mass/Vol]Order ed By: Dr. Rasmussen on 05-15-2022 Albumin [Mass/Vol] 3.3 g/dL 2.9-4.4 [facility] Basophil percentageOrdered B y: Dr. Rasmussen on 05-15-2022 Basophil percentage Comment: . [facility] Comment on above: Presence of monoclon al protein is unclear at this time. Suggestrepeat in 3 to 6 months if clinically indicated.Performed at: [facility] [id number] Director: Herb Kincaid PhD, Phone: [phone] Interpretation of serum or p lasma protein pattern by immunofixation (narrative resultOrdered By: Dr. Rasmussen on 05-15-2022 Protein Fractions Immunofixation Arnav [Interp] See comment [facility] Comment on above: Result: Not Observed No Panel InformationOrdered By: Dr. Rasmussen on 05-15-2022 Addendum Document Comment . [facility] Comment on above: Protein electrophore sis scan will follow via computer,mail, or machine fastener delivery. Serum [id number] measu rement by electrophoresisOrdered By: Dr. Rasmussen on 05-15-2022 Alpha 1 globulin Elph [Mass/Vol] 0.2 g/dL 0.0-0.4 [facility] Alpha 1 globulin Elph [Mass/Vol] 0.9 g/dL 0.4-1.0 [facility] Serum globulin measurement ( mass/volume)Ordered By: Dr. Rasmussen on 05-15-2022 Globulin (S) [Mass/Vol] 3.4 g/dL 2.2-3.9 [facility] Serum or plasma IgA measurem ent (mass/volume)Ordered By: Dr. Rasmussen on 05-15-2022 IgA [Mass/Vol] 173 mg/dL 87-352 [facility] Serum or plasma IgG measurem ent (mass/volume)Ordered By: Dr. Rasmussen on 05-15-2022 IgG [Mass/Vol] 1117 mg/dL 586-1602 [facility] Serum or plasma IgM measurem ent (mass/volume)Ordered By: Dr. Rasmussen on 05-15-2022 IgM [Mass/Vol] 109 mg/dL 26-217 [facility] Serum or plasma beta globuli n measurement by electrophoresis (mass/volume)Ordered By: Dr. Rasmussen on 05-15-2022 Beta globulin Elph [Mass/Vol] 1.1 g/dL 0.7-1.3 [facility] Serum or plasma gamma globul in measurement by electrophoresis (mass/volume)Ordered By: Dr. Rasmussen on 05-15-2022 Gamma globulin Elph [Mass/Vol] 1.2 g/dL 0.4-1.8 [facility] Serum or plasma immunoelectr ophoresis interpretation (nominal result)Ordered By: Dr. Rasmussen on 05-15-2022 Interpretation IEP [Interp] Comment: . [facility] Comment on above: Presence of monoclon al protein is unclear at this time. Suggestrepeat in 3 to 6 months if clinically indicated. Thin prep Papanicolaou smear with manual screeningOrdered By: Dr. Rasmussen on 05-15-2022 Thin prep Papanicolaou smear with manual screening 1.0 0.7-1.7 [facility] Total protein bloodOrdered B y: Dr. Rasmussen on 05-15-2022 Protein [Mass/Vol] 6.7 g/dL 6.0-8.5 [facility] No Panel Informationon 02-14 Free Lambda Light Chains, Quant 25.9 mg/L 5.7-26.3 [facility] Work Phone: Serum immunoglobulin kappa l ight chains/immunoglobulin lambda light chains mass ratioon 02-14-2022 Immunoglobulin light chains.kappa/Immunoglobulin light chains.lambda (S) [Mass ratio] 1.29 0.26-1.65 [facility] Work Phone: Comment on above: Performed at: - [address] [id number] Director: eHrb Kincaid PhD, Phone: [phone] Serum or plasma folate measu rement (mass/volume)on 02-14-2022 Folate [Mass/Vol] 38.00 ng/mL 3.1-55.4 [facility] Work Phone: Comment on above: Slight Hemolysis, Re sult may be falsely increased. Serum or plasma immunoglobul in kappa light chains measurement (mass/volume)on 02-14-2022 Immunoglobulin light chains.kappa [Mass/Vol] 33.4 mg/L 3.3-19.4 [facility] Work Phone: Absolute lymphocyte counton 11-23-2021 Lymphocytes Auto (Unsp spec) [#/Vol] 2.07 10*3/uL 0.83-4.51 [facility] Work Phone: Basophil percentageon 2021 Basophil percentage 5-10 SEEN /hpf 0-5 [facility] Work Phone: Basophil percentage 3.4 mg/dL 2.5-4.9 [facility] Work Phone: Basophils/100 WBC (Bld) 0.6 % 0-1 [facility] Work Phone: Bilirubin [Mass/Vol] 0.40 mg/dL 0.20-1.00 [facility] Work Phone: Comment on above: For patients on eltr ombopag therapy, use of Dimension [place] TBIL is not recommended. Chloride [Moles/Vol] 103 mmol/L 98-107 [facility] Work Phone: Cholesterol [Mass/Vol] 212 mg/dL <200 [facility] Work Phone: Comment on above: <200 mg/dL Desirable 200-240 mg/dL Borderline >240 mg/dL High Risk Eosinophils/100 WBC (Bld) 1.9 % 0-5 [facility] Work Phone: Glucose [Mass/Vol] 138 mg/dL 74-106 [facility] Work Phone: Comment on above: Fasting Glucose resu lt greater than or equal to 126 mg/dL suggests DIABETES MELLITUS per A.D.A. criteria. Neutrophils (Bld) [#/Vol] 4.2 10*3/uL 2.0-7.7 [facility] Work Phone: Neutrophils/100 WBC (Bld) 60.6 % 47-70 [facility] Work Phone: Potassium [Moles/Vol] 3.7 mmol/L 3.5-5.1 [facility] Work Phone: Protein [Mass/Vol] 7.7 g/dL 6.4-8.2 [facility] Work Phone: Sodium [Moles/Vol] 138 mmol/L 136-145 [facility] Work Phone: Triglyceride [Mass/Vol] 201 mg/dL <199 [facility] Work Phone: Comment on above: The drugs N-Acetylcy steine and Metamizole may falsely depress this assay.Serum Triglycerides Reference Interval Normal <150 mg/dL Borderline high 150 - 199 mg/dL High 200 - 499 mg/dL Very High > or = 500 mg/dL WBC (Bld) [#/Vol] 6.9 10*3/uL 4.4-11.0 [facility] Work Phone: Bilirubin Test strip Ql (U)o n 11-23-2021 Bilirubin Ql (U) Negative Negative [facility] Work Phone: Blood erythrocytes count (nu mber/volume)on 11-23-2021 RBC (Bld) [#/Vol] 4.15 10*6/uL 4.2-5.4 [facility] Work Phone: Blood hemoglobin measurement (mass/volume)on 11-23-2021 Hemoglobin (Bld) [Mass/Vol] 12.5 g/dL 12.0-15. 0 [facility] Work Phone: Blood lymphocytes/100 leukoc yteson 11-23-2021 Lymphocytes/100 WBC (Bld) 29.9 % 19-41 [facility] Work Phone: Blood monocytes/100 leukocyt eson 11-23-2021 Monocytes/100 WBC (Bld) 6.6 % 0-10 [facility] Work Phone: Blood platelet mean volumeon 11-23-2021 Platelet mean volume (Bld) [Entitic vol] 10.6 fL 6.2-12.0 [facility] Work Phone: Determination of erythrocyte mean corpuscular volume (MCV)on 11-23-2021 MCV (RBC) [Entitic vol] 94.2 fL 81-99 [facility] Work Phone: Hematocrit Auto (Bld) [Volum e fraction]on 11-23-2021 Hematocrit (Bld) [Volume fraction] 39.1 % 37-47 [facility] Work Phone: Iron measurement (mass/mass) on 11-23-2021 Iron (Unsp spec) [Mass/Mass] 44 ug/dL 50-170 [facility] Work Phone: Ketones Test strip Ql (U)on 11-23-2021 Ketones Ql (U) Negative Negative [facility] Work Phone: Laboratory - Chemistry and C hemistry - challengeon 11-23-2021 ALP [Catalytic activity/Vol] 64 U/L 45-117 [facility] Work Phone: ALT [Catalytic activity/Vol] 38 U/L 13-56 [facility] Work Phone: CO2 [Moles/Vol] 27.0 mmol/L 21.0-32.0 [facility] Work Phone: [phone] Cobalamin (Vitamin B12) [Mass/Vol] 1434 pg/mL 211-911 [facility] Work Phone: Globulin (S) [Mass/Vol] 4.2 g/dL 2.2-4.2 [facility] Work Phone: Magnesium [Mass/Vol] 2.3 mg/dL 1.6-2.6 [facility] Work Phone: Urea nitrogen/Creatinine [Mass ratio] 23.1 mg/mg 10-20 [facility] Work Phone: Laboratory - Hematology and Cell countson 11-23-2021 Erythrocyte distribution width (RBC) [Entitic vol] 47.2 fL 35.1-43.9 [facility] Work Phone: Erythrocyte distribution width (RBC) [Ratio] 13.7 % 11.6-14.6 [facility] Work Phone: Immature granulocytes/100 WBC (Bld) 0.400 % 0.0-0.9 [facility] Work Phone: Comment on above: IG% - Immature Granu locytes (promyelocytes, myelocytes and metamyelocytes) > 1% indicates that a LEFT SHIFT is Present. MCH (RBC) [Entitic mass] 30.1 pg 27.0-32.0 [facility] Work Phone: Nucleated RBC/100 WBC (Bld) [Ratio] 0 % 0-5 [facility] Work Phone: MCHC Auto (RBC) [Mass/Vol]on 11-23-2021 MCHC (RBC) [Mass/Vol] 32.0 g/dL 32-36 [facility] Work Phone: Mucus LM Ql (Urine sed)on Mucus Ql (Urine sed) 0 SEEN /hpf [facility] Work Phone: Nitrite Test strip Ql (U)on 11-23-2021 Nitrite Ql (U) Negative Negative [facility] Work Phone: No Panel Informationon 11-23 Estimated GFR (MDRD) Amer 90 mL/min >60 [facility] Work Phone: Comment on above: GFR Calc Estimated GFR (MDRD) Non-Af Amer 74 mL/min >60 [facility] Work Phone: Comment on above: Non- GFR Calc Thyroid Stimulating Hormone (TSH) 1.69 uIU/mL 0.358-3.74 [facility] Work Phone: Urine Microalbumin/Creatinine Ratio 33.0 mg/g CRE <30 [facility] Work Phone: Platelets bldon 11-23-2021 Platelets (Bld) [#/Vol] 299 10*3/uL 150-450 [facility] Work Phone: Protein Test strip Ql (U)on 11-23-2021 Protein Ql (U) Negative Negative [facility] Work Phone: Serum or plasma albumin jatin urement (mass/volume)on 11-23-2021 Albumin [Mass/Vol] 3.5 g/dL 3.2-5.0 [facility] Work Phone: Serum or plasma albumin/glob ulin mass ratioon 11-23-2021 Albumin/Globulin [Mass ratio] 0.8 {ratio} 0.9-2.4 [facility] Work Phone: Serum or plasma calcium jatin urement (mass/volume)on 11-23-2021 Calcium [Mass/Vol] 8.5 mg/dL 8.5-10.1 [facility] Work Phone: Serum or plasma cholesterol in HDL measurement (mass/volume)on 11-23-2021 Cholesterol in HDL [Mass/Vol] 45 mg/dL >40 [facility] Work Phone: Comment on above: The drugs N-Acetylcy steine and Metamizole may falsely depress this assay. Reference Range HDL <40 mg/dL Low HDL Cholesterol HDL >or= 60 mg/dL High HDL Cholesterol Serum or plasma cholesterol in VLDL measurement (mass/volume)on 11-23-2021 Cholesterol in VLDL [Mass/Vol] 40 mg/dL 5-40 [facility] Work Phone: Serum or plasma creatinine m easurement (mass/volume)on 11-23-2021 Creatinine [Mass/Vol] 0.82 mg/dL 0.55-1.02 [facility] Work Phone: Comment on above: The validity of the calculated GFR & GFRAA in patients over 70 years has not been determined. Clinical correlation is essential. Serum or plasma ferritin karina surement (mass/volume)on 11-23-2021 Ferritin [Mass/Vol] 174 ng/mL 8-252 [facility] Work Phone: Serum or plasma low density lipoprotein (LDL) cholesterol measurement (mass/volume)on 11-23-2021 Cholesterol in LDL [Mass/Vol] 127 mg/dL 0-130 [facility] Work Phone: Serum or plasma urea nitroge n measurement (mass/volume)on 11-23-2021 Urea nitrogen [Mass/Vol] 19 mg/dL 7-18 [facility] Work Phone: Serum or plasma zinc measure ment (mass/volume)on 11-23-2021 Zinc [Mass/Vol] 84 ug/dL 44-115 [facility] Work Phone: Comment on above: Detection Limit = 5P erformed at: - Lab[address] [id number] Director: Kimberly Langford MD, Phone: [phone] Squamous epithelial cells de tection in urine sediment by light microscopyon 11-23-2021 Epithelial cells.squamous LM Ql (Urine sed) 5-10 SEEN /hpf 5-10 [facility] Work Phone: Thin prep Papanicolaou smear with manual screeningon 11-23-2021 Thin prep Papanicolaou smear with manual screening 23 U/L 15-37 [facility] Work Phone: Thin prep Papanicolaou smear with manual screening 8 5-15 [facility] Work Phone: Thin prep Papanicolaou smear with manual screening 15.1 mg/L NO RANGE EST. [facility] Work Phone: Urine blood detectionon RBC Ql (U) 10 /ul Negative [facility] Work Phone: RBC Ql (U) 0 SEEN /hpf 0-5 [facility] Work Phone: Urine clarityon 11-23-2021 Clarity (U) Clear Clear [facility] Work Phone: Urine color determinationon 11-23-2021 Color (U) Yellow Yellow [facility] Work Phone: Urine creatinine measurement (mass/volume)on 11-23-2021 Creatinine (U) [Mass/Vol] 45.70 mg/dL NO RANGE EST. [facility] Work Phone: Urine glucose detectionon Glucose Ql (U) Normal mg/dl Normal [facility] Work Phone: Urine leukocyte esterase det ection by dipstickon 11-23-2021 Leukocyte esterase Test strip Ql (U) 500 /ul Negative [facility] Work Phone: Urine pHon 11-23-2021 pH (U) 6.0 [pH] 5.0 - 8.0 [facility] Work Phone: Urine sediment bacteria coun t by microscopy (number/high power field)on 11-23-2021 Bacteria LM.HPF (Urine sed) [#/Area] RARE /hpf None Seen [facility] Work Phone: Urine specific gravity measu rementon 11-23-2021 Specific gravity (U) [Rel density] 1.010 1.002-1.030 [facility] Work Phone: Urobilinogen Auto test strip Ql (U)on 11-23-2021 Urobilinogen Ql (U) Normal mg/dl Normal [facility] Work Phone: Whole blood hemoglobin A1c/t otal hemoglobin ratio (mass fraction)on 11-23-2021 HbA1c (Bld) [Mass fraction] 6.3 % 3.8-5.6 [facility] Work Phone: Comment on above: Normal < 5.7 % Predi abetic 5.7 - 6.4 % Diabetic >or= 6.5 % Please note range changes. COVID PCR, SCREENING CONGREG ATE01-15-2020 CORONAVIRUS 2019,PCR NOT DETECTED Normal Not Detected [facility] Comment on above: Result Comment: This assay is designed to detect the N, ORF1ab and/or S genes of SARS-CoV-2 via nucleic acid amplification. A Negative (NOT DETECTED) result does not preclude 2019-nCoV infection since the adequacy of sample collection and/or low viral burden may result in presence of viral nucleic acids below the clinical sensitivity of this test method. Negative (NOT DETECTED) result should not be used as the sole basis for treatment or other patient management decisions. Rather negative results should be combined with clinical observations, patient history, and epidemiological information to make patient management decisions. Fact sheet for providers: https://www.fda.gov/media/450046/download Fact sheet for patients: https://www.fda.gov/media/197508/download This test has received FDA Emergency Use Authorization (EUA) and has been verified by [facility] ([facility]). This test is only authorized for the duration of time that circumstances exist to justify the authorization of the emergency use of in vitro diagnostic tests for the detection of SARS-CoV-2 virus and/or diagnosis of COVID-19 infection under section 564(b)(1) of the Act, 21 U.S.C. 360bbb-3(b)(1), unless the authorization is terminated or revoked sooner. [facility] ([facility]) is certified under CLIA-88 as qualified to perform high complexity testing. This tests analytical performance characteristics have been determined by [facility]. Testing is performed at [facility] is located at [address] [place] [address] (CLIA License #[id number], CAP #[id number]). Performed By: #### C VCLA #### [facility] [address] [place] [address] COVID PCR, SCREENING CONGREG ATE01-14-2020 Lab Specimen Source Nasal, Nasopharyngeal Normal [facility] Comment on above: Performed By: #### C VCLA #### [facility] [address] [place] [address] Lab Report: Bedside Glucoseo n 01-24-2017 Glucose 118 mg/dL High 70-110 [facility] Work Phone: Vital Signs Date Time Vital Sign Value Performing Clinician Facility 12-27-2024 10:17-0400 Body mass index (BMI) [Ratio] 38.59 kg/m2 Leonardo Moomaw SE[employer]ER P[employer] PR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.[employer] CONSULTANT Work Phone: [facility] 12-27-2024 10:17-0400 Body temperature 97.11 [degF] Leonardo Moomaw SEWER PIPE PR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.[employer] CONSULTANT Work Phone: [facility] 12-27-2024 10:17-0400 Body weight 106.8 kg Leonardo Moomaw SEWER PIPE PR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.DY[employer] CONSULTANT Work Phone: [facility] 12-27-2024 10:17-0400 Diastolic blood pressure 58 mm[Hg] Leonardo Moomaw SEWER PIPE PR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.DY[employer] CONSULTANT Work Phone: [facility] 12-27-2024 10:17-0400 Heart rate 86 /min Leonardo Moomaw SEWER PIPE PR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.DYNAM[employer] AX CONSULTANT Work Phone: [facility] 12-27-2024 10:17-0400 Respiratory rate 21 /min Leonardo Moomaw SEWER PIPE PR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.DY[employer] AX CONSULTANT Work Phone: [facility] 12-27-2024 10:17-0400 SaO2% (BldA) [Mass fraction] 96 % Leonardo Moomaw SEWER PIPE PR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.DY[employer] AX CONSULTANT Work Phone: [facility] 12-27-2024 10:17-0400 Systolic blood pressure 110 mm[Hg] Leonardo Moomaw SEWER PIPE PR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.DYNAM[employer] AX CONSULTANT Work Phone: [facility] 12-08-2024 11:57-0400 Body temperature 98 [degF] Meir Zepeda MD Work Phone: [facility] 12-08-2024 11:57-0400 Diastolic blood pressure 71 mm[Hg] Meir Zepeda MD Work Phone: [facility] 12-08-2024 11:57-0400 Heart rate 80 /min Meir Zepeda MD Work Phone: [facility] 12-08-2024 11:57-0400 Respiratory rate 17 /min Meir Zepeda MD Work Phone: [facility] 12-08-2024 11:57-0400 SaO2% (BldA) [Mass fraction] 96 % Meir Zepeda MD Work Phone: [facility] 12-08-2024 11:57-0400 Systolic blood pressure 147 mm[Hg] Meir Zepeda MD Work Phone: [facility] 11-21-2024 10:15-0400 Body height 165.1 cm Meir Zepeda MD Work Phone: [facility] 11-21-2024 10:15-0400 Body mass index (BMI) [Ratio] 38.3 kg/m2 Meir Zepeda MD Work Phone: [facility] 11-21-2024 10:15-0400 Body weight 104.55 kg Meir Zepeda MD Work Phone: [facility] 11-06-2024 11:37-0400 Body height 165.[address] Gilberto Rasmussen MD Work Phone: [facility] 11-06-2024 11:37-0400 Body mass index (BMI) [Ratio] 39.1 kg/m2 Dr. Gilberto Rasmussen MD Work Phone: [facility] 11-06-2024 11:37-0400 Body temperature 97.8 [degF] Dr. Gilberto Rasmussen MD Work Phone: [facility] 11-06-2024 11:37-0400 Body weight 106.[address] Gilberto Rasmussen MD Work Phone: [facility] 11-06-2024 11:37-0400 Diastolic blood pressure 60 mm[Hg] Dr. Gilberto Rasmussen MD Work Phone: [facility] 11-06-2024 11:37-0400 Heart rate 99 /min Dr. Gilberto Rasmussen MD Work Phone: [facility] 11-06-2024 11:37-0400 Respiratory rate 17 /min Dr. Gilberto Rasmussen MD Work Phone: [facility] 11-06-2024 11:37-0400 SaO2% (BldA) [Mass fraction] 96 % Dr. Gilberto Rasmussen MD Work Phone: [facility] 11-06-2024 11:37-0400 Systolic blood pressure 112 mm[Hg] Dr. Gilberto Rasmussen MD Work Phone: [facility] 10-06-2024 11:30-0400 Body height 165.1 cm Meir Zepeda MD Work Phone: [facility] 10-06-2024 11:30-0400 Body mass index (BMI) [Ratio] 40.2 kg/m2 Meir Zepeda MD Work Phone: [facility] 10-06-2024 11:30-0400 Body temperature 98.2 [degF] Meir Zepeda MD Work Phone: [facility] 10-06-2024 11:30-0400 Body weight 109.76 kg Meir Zepeda MD Work Phone: [facility] 10-06-2024 11:30-0400 Diastolic blood pressure 73 mm[Hg] Meir Zepeda MD Work Phone: [facility] 10-06-2024 11:30-0400 Heart rate 79 /min Meir Zepeda MD Work Phone: [facility] 10-06-2024 11:30-0400 Respiratory rate 18 /min Meir Zepeda MD Work Phone: [facility] 10-06-2024 11:30-0400 SaO2% (BldA) [Mass fraction] 96 % Meir Zepeda MD Work Phone: [facility] 10-06-2024 11:30-0400 Systolic blood pressure 117 mm[Hg] Meir Zepeda MD Work Phone: [facility] 10-02-2024 11:48-0400 Body mass index (BMI) [Ratio] 39.9 kg/m2 Meir Zepeda MD Work Phone: [facility] 10-02-2024 11:48-0400 Body temperature 97.8 [degF] Meir Zepeda MD Work Phone: [facility] 10-02-2024 11:48-0400 Body weight 108.86 kg Meir Zepeda MD Work Phone: [facility] 10-02-2024 11:48-0400 Diastolic blood pressure 58 mm[Hg] Meir Zepeda MD Work Phone: [facility] 10-02-2024 11:48-0400 Heart rate 80 /min Meir Zepeda MD Work Phone: [facility] 10-02-2024 11:48-0400 Respiratory rate 17 /min Meir Zepeda MD Work Phone: [facility] 10-02-2024 11:48-0400 SaO2% (BldA) [Mass fraction] 97 % Meir Zepeda MD Work Phone: [facility] 10-02-2024 11:48-0400 Systolic blood pressure 118 mm[Hg] Meir Zepeda MD Work Phone: [facility] 09-02-2024 11:00-0500 Body mass index (BMI) [Ratio] 40.4 kg/m2 Meri Zepeda MD Work Phone: [facility] 09-02-2024 11:00-0500 Body temperature 97.8 [degF] Meir Zepeda MD Work Phone: [facility] 09-02-2024 11:00-0500 Body weight 110.22 kg Meir Zepeda MD Work Phone: [facility] 09-02-2024 11:00-0500 Diastolic blood pressure 50 mm[Hg] Meir Zepeda MD Work Phone: [facility] 09-02-2024 11:00-0500 Heart rate 107 /min Meir Zepeda MD Work Phone: [facility] 09-02-2024 11:00-0500 Respiratory rate 17 /min Meir Zepeda MD Work Phone: [facility] 09-02-2024 11:00-0500 SaO2% (BldA) [Mass fraction] 96 % Meir Zepeda MD Work Phone: [facility] 09-02-2024 11:00-0500 Systolic blood pressure 114 mm[Hg] Meir Zepeda MD Work Phone: [facility] 07-31-2024 14:23-0500 Diastolic blood pressure 76 mm[Hg] Meir Zepeda MD Work Phone: [facility] 07-31-2024 14:23-0500 Heart rate 96 /min Meir Zepeda MD Work Phone: [facility] 07-31-2024 14:23-0500 Systolic blood pressure 148 mm[Hg] Meir Zepeda MD Work Phone: [facility] 07-31-2024 13:30-0500 Body mass index (BMI) [Ratio] 41.1 kg/m2 Meir Zepeda MD Work Phone: [facility] 07-31-2024 13:30-0500 Body temperature 97.3 [degF] Meir Zepeda MD Work Phone: [facility] 07-31-2024 13:30-0500 Body weight 112.03 kg Meir Zepeda MD Work Phone: [facility] 07-31-2024 13:30-0500 Respiratory rate 15 /min Meir Zepeda MD Work Phone: [facility] 07-31-2024 13:30-0500 SaO2% (BldA) [Mass fraction] 97 % Meir Zepeda MD Work Phone: [facility] 11-06-2023 13:53-0400 Body height 165.1 cm DO Deysi Castro Work Phone: [facility] 11-06-2023 13:53-0400 Body mass index (BMI) [Ratio] 39.9 kg/m2 DO Deysi Matthew Work Phone: [facility] 11-06-2023 13:53-0400 Body temperature 97.8 [degF] DO Deysi Matthew Work Phone: [facility] 11-06-2023 13:53-0400 Body weight 108.86 kg DO Deysi Matthew Work Phone: [facility] 11-06-2023 13:53-0400 Diastolic blood pressure 50 mm[Hg] DO Deysi Matthew Work Phone: [facility] 11-06-2023 13:53-0400 Heart rate 88 /min DO Deysi Matthew Work Phone: [facility] 11-06-2023 13:53-0400 Respiratory rate 17 /min DO Deysi Matthew Work Phone: [facility] 11-06-2023 13:53-0400 SaO2% (BldA) [Mass fraction] 98 % DO Deysi Matthew Work Phone: [facility] 11-06-2023 13:53-0400 Systolic blood pressure 110 mm[Hg] DO Deysi Matthew Work Phone: [facility] 11-05-2023 10:00-0400 Body weight 109.13 kg DO Deysi Matthew Work Phone: [facility] 10-19-2023 16:09-0400 Body height 165.1 cm DO Deysi Matthew Work Phone: [facility] 10-19-2023 16:09-0400 Body mass index (BMI) [Ratio] 39.9 kg/m2 DO Deysi Matthew Work Phone: [facility] 10-19-2023 16:09-0400 Body temperature 98 [degF] DO Deysi Matthew Work Phone: [facility] 10-19-2023 16:09-0400 Body weight 108.86 kg DO Edysi Matthew Work Phone: [facility] 10-19-2023 16:09-0400 Heart rate 74 /min DO Deysi Matthew Work Phone: [facility] 10-19-2023 16:09-0400 Respiratory rate 17 /min DO Deysi Matthew Work Phone: [facility] 10-19-2023 16:09-0400 SaO2% (BldA) [Mass fraction] 98 % DO Deysi Matthew Work Phone: [facility] 10-11-2023 13:15-0400 Body mass index (BMI) [Ratio] 41.2 kg/m2 DO Deysi Matthew Work Phone: [facility] 10-11-2023 13:15-0400 Body temperature 97.8 [degF] DO Deysi Matthew Work Phone: [facility] 10-11-2023 13:15-0400 Body weight 112.49 kg DO Deysi Matthew Work Phone: [facility] 10-11-2023 13:15-0400 Diastolic blood pressure 70 mm[Hg] DO Deysi Matthew Work Phone: [facility] 10-11-2023 13:15-0400 Heart rate 89 /min DO Deysi Matthew Work Phone: [facility] 10-11-2023 13:15-0400 Respiratory rate 17 /min DO Deysi Matthew Work Phone: [facility] 10-11-2023 13:15-0400 SaO2% (BldA) [Mass fraction] 95 % DO Deysi Matthew Work Phone: [facility] 10-11-2023 13:15-0400 Systolic blood pressure 138 mm[Hg] DO Deysi Matthew Work Phone: [facility] 10-08-2023 11:29-0400 Body mass index (BMI) [Ratio] 40.8 kg/m2 DO Deysi Matthew Work Phone: [facility] 10-08-2023 11:29-0400 Body temperature 98.2 [degF] DO Deysi Matthew Work Phone: [facility] 10-08-2023 11:29-0400 Body weight 111.15 kg DO Deysi Matthew Work Phone: [facility] 10-08-2023 11:29-0400 Diastolic blood pressure 73 mm[Hg] DO Deysi Matthew Work Phone: [facility] 10-08-2023 11:29-0400 Heart rate 79 /min DO Deysi Matthew Work Phone: [facility] 10-08-2023 11:29-0400 Respiratory rate 18 /min DO Deysi Matthew Work Phone: [facility] 10-08-2023 11:29-0400 SaO2% (BldA) [Mass fraction] 97 % DO Deysi Matthew Work Phone: [facility] 10-08-2023 11:29-0400 Systolic blood pressure 107 mm[Hg] DO Deysi Matthew Work Phone: [facility] 09-11-2023 13:20-0500 Body height 165.1 cm DO Deysi Matthew Work Phone: [facility] 09-11-2023 13:20-0500 Body mass index (BMI) [Ratio] 39.9 kg/m2 DO Deysi Matthew Work Phone: [facility] 09-11-2023 13:20-0500 Body temperature 97.8 [degF] DO Deysi Matthew Work Phone: [facility] 09-11-2023 13:20-0500 Body weight 108.86 kg DO Deysi Matthew Work Phone: [facility] 09-11-2023 13:20-0500 Diastolic blood pressure 60 mm[Hg] DO Deysi Matthew Work Phone: [facility] 09-11-2023 13:20-0500 Heart rate 91 /min DO Deysi Matthew Work Phone: [facility] 09-11-2023 13:20-0500 Respiratory rate 17 /min DO Deysi Matthew Work Phone: [facility] 09-11-2023 13:20-0500 SaO2% (BldA) [Mass fraction] 97 % DO Deysi Matthew Work Phone: [facility] 09-11-2023 13:20-0500 Systolic blood pressure 116 mm[Hg] DO Deysi Matthew Work Phone: [facility] 08-09-2023 13:08-0500 Body temperature 98 [degF] DO Deysi Matthew Work Phone: [facility] 08-09-2023 13:08-0500 Body weight 110.73 kg DO Deysi Matthew Work Phone: [facility] 08-09-2023 13:08-0500 Diastolic blood pressure 77 mm[Hg] DO Deysi Matthew Work Phone: [facility] 08-09-2023 13:08-0500 Heart rate 98 /min DO Deysi Matthew Work Phone: [facility] 08-09-2023 13:08-0500 Respiratory rate 14 /min DO Deysi Matthew Work Phone: [facility] 08-09-2023 13:08-0500 SaO2% (BldA) [Mass fraction] 98 % DO Deysi Matthew Work Phone: [facility] 08-09-2023 13:08-0500 Systolic blood pressure 118 mm[Hg] DO Deysi Matthew Work Phone: [facility] 07-25-2023 08:45-0500 Body temperature 97.9 [degF] DO Deysi Matthew Work Phone: [facility] 07-25-2023 08:45-0500 Diastolic blood pressure 72 mm[Hg] DO Deysi Matthew Work Phone: [facility] 07-25-2023 08:45-0500 Heart rate 96 /min DO Deysi Matthew Work Phone: [facility] 07-25-2023 08:45-0500 Respiratory rate 17 /min DO Deysi Matthew Work Phone: [facility] 07-25-2023 08:45-0500 SaO2% (BldA) [Mass fraction] 96 % DO Deysi Matthew Work Phone: [facility] 07-25-2023 08:45-0500 Systolic blood pressure 148 mm[Hg] DO Deysi Matthew Work Phone: [facility] 07-10-2023 13:31-0500 Body height 165.1 cm DO Deysi Matthew Work Phone: [facility] 07-10-2023 13:31-0500 Body mass index (BMI) [Ratio] 41.5 kg/m2 DO Deysi Matthew Work Phone: [facility] 07-10-2023 13:31-0500 Body temperature 97.8 [degF] DO Deysi Matthew Work Phone: [facility] 07-10-2023 13:31-0500 Body weight 113.11 kg DO Deysi Matthew Work Phone: [facility] 07-10-2023 13:31-0500 Diastolic blood pressure 60 mm[Hg] DO Deysi Matthew Work Phone: [facility] 07-10-2023 13:31-0500 Heart rate 81 /min DO Deysi Matthew Work Phone: [facility] 07-10-2023 13:31-0500 Respiratory rate 17 /min DO Deysi Matthew Work Phone: [facility] 07-10-2023 13:31-0500 SaO2% (BldA) [Mass fraction] 97 % DO Deysi Matthew Work Phone: [facility] 07-10-2023 13:31-0500 Systolic blood pressure 138 mm[Hg] DO Deysi Matthew Work Phone: [facility] 06-22-2023 10:09-0500 Body mass index (BMI) [Ratio] 39.1 kg/m2 DO Deysi Matthew Work Phone: [facility] 06-22-2023 10:09-0500 Body temperature 96.6 [degF] DO Deysi Matthew Work Phone: [facility] 06-22-2023 10:09-0500 Diastolic blood pressure 61 mm[Hg] DO Deysi Matthew Work Phone: [facility] 06-22-2023 10:09-0500 Heart rate 83 /min DO Deysi Matthew Work Phone: [facility] 06-22-2023 10:09-0500 Respiratory rate 16 /min DO Deysi Matthew Work Phone: [facility] 06-22-2023 10:09-0500 Systolic blood pressure 137 mm[Hg] DO Deysi Matthew Work Phone: [facility] 06-22-2023 00:37-0500 Body weight 106.59 kg DO Deysi Matthew Work Phone: [facility] 06-08-2023 08:29-0500 Body mass index (BMI) [Ratio] 39.1 kg/m2 DO Deysi Matthew Work Phone: [facility] 06-08-2023 08:29-0500 Body temperature 97.1 [degF] DO Deysi Matthew Work Phone: [facility] 06-08-2023 08:29-0500 Diastolic blood pressure 72 mm[Hg] DO Deysi Matthew Work Phone: [facility] 06-08-2023 08:29-0500 Heart rate 76 /min DO Deysi Matthew Work Phone: [facility] 06-08-2023 08:29-0500 Respiratory rate 20 /min DO Deysi Matthew Work Phone: [facility] 06-08-2023 08:29-0500 Systolic blood pressure 153 mm[Hg] DO Deysi Matthew Work Phone: [facility] 05-23-2023 00:24-0400 Body weight 106.59 kg DO Deysi Matthew Work Phone: [facility] 05-18-2023 08:30-0400 Body mass index (BMI) [Ratio] 39.1 kg/m2 DO Deysi Matthew Work Phone: [facility] 05-18-2023 08:30-0400 Body temperature 96.5 [degF] DO Deysi Matthew Work Phone: [facility] 05-18-2023 08:30-0400 Diastolic blood pressure 69 mm[Hg] DO Deysi Matthew Work Phone: [facility] 05-18-2023 08:30-0400 Heart rate 74 /min DO Deysi Matthew Work Phone: [facility] 05-18-2023 08:30-0400 Respiratory rate 18 /min DO Deyis Matthew Work Phone: [facility] 05-18-2023 08:30-0400 Systolic blood pressure 138 mm[Hg] DO Deysi Matthew Work Phone: [facility] 04-27-2023 10:48-0400 Body height 165.1 cm DO Deysi Mattehw Work Phone: [facility] 04-27-2023 10:48-0400 Body weight 106.59 kg DO Deysi Matthew Work Phone: [facility] 04-19-2023 10:57-0400 Body height 165.1 cm DO Deysi Matthew Work Phone: [facility] 04-19-2023 10:57-0400 Body mass index (BMI) [Ratio] 40.1 kg/m2 DO Deysi Matthew Work Phone: [facility] 04-19-2023 10:57-0400 Body temperature 98.3 [degF] DO Deysi Matthew Work Phone: [facility] 04-19-2023 10:57-0400 Body weight 109.31 kg DO Deysi Matthew Work Phone: [facility] 04-19-2023 10:57-0400 Diastolic blood pressure 71 mm[Hg] DO Deysi Mathtew Work Phone: [facility] 04-19-2023 10:57-0400 Heart rate 82 /min DO Deysi Matthew Work Phone: [facility] 04-19-2023 10:57-0400 Respiratory rate 16 /min DO Deysi Matthew Work Phone: [facility] 04-19-2023 10:57-0400 SaO2% (BldA) [Mass fraction] 97 % DO Deysi Matthew Work Phone: [facility] 04-19-2023 10:57-0400 Systolic blood pressure 139 mm[Hg] DO Deysi Matthew Work Phone: [facility] 04-12-2023 15:50-0400 Body mass index (BMI) [Ratio] 39.9 kg/m2 DO Deysi Matthew Work Phone: [facility] 04-12-2023 15:50-0400 Body temperature 98.3 [degF] DO Deysi Matthew Work Phone: [facility] 04-12-2023 15:50-0400 Body weight 108.86 kg DO Deysi Matthew Work Phone: [facility] 04-12-2023 15:50-0400 Diastolic blood pressure 89 mm[Hg] DO Deysi Castro Work Phone: [facility] 04-12-2023 15:50-0400 Heart rate 81 /min DO Deysi Castro Work Phone: [facility] 04-12-2023 15:50-0400 Respiratory rate 18 /min DO Deysi Castro Work Phone: [facility] 04-12-2023 15:50-0400 SaO2% (BldA) [Mass fraction] 97 % DO Deysi Castro Work Phone: [facility] 04-12-2023 15:50-0400 Systolic blood pressure 156 mm[Hg] DO Deysi Castro Work Phone: [facility] 04-06-2023 10:09-0400 Body height 165.1 cm Chanel Martinez APRN.[employer] CONSULTANT Work Phone: [facility] 04-06-2023 10:09-0400 Body temperature 97.5 [degF] Chanel Martinez SEWER PIPE PR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.[employer] CONSULTANT Work Phone: [facility] 04-06-2023 10:09-0400 Body weight 109.77 kg Chanel Martinez APRN.[employer] AX CONSULTANT Work Phone: [facility] 04-06-2023 10:09-0400 Diastolic blood pressure 83 mm[Hg] Chanel Mratinez APRN.[employer] CONSULTANT Work Phone: [facility] 04-06-2023 10:09-0400 Heart rate 83 /min Chanel Martinez APRN.[employer] CONSULTANT Work Phone: [facility] 04-06-2023 10:09-0400 Respiratory rate 14 /min Chanel Martinez APRN.[employer] CONSULTANT Work Phone: [facility] 04-06-2023 10:09-0400 SaO2% (BldA) [Mass fraction] 96 % Chanel Martinez APRN.[employer] AX CONSULTANT Work Phone: [facility] 09-15-2023 10:09-0400 Systolic blood pressure 172 mm[Hg] Chanel Martinez APRNDiamondDYNAMICS AX CONSULTANT Work Phone: [facility] 03-11-2023 09:26-0400 Body height 165.1 cm DO Deysi Matthew Work Phone: [facility] 03-11-2023 09:26-0400 Body mass index (BMI) [Ratio] 40.2 kg/m2 DO Deysi Matthew Work Phone: [facility] 03-11-2023 09:26-0400 Body temperature 98.6 [degF] DO Deysimindi Mayfieldnger Work Phone: [facility] 03-11-2023 09:26-0400 Body weight 109.79 kg DO Deysi Matthew Work Phone: [facility] 03-11-2023 09:26-0400 Diastolic blood pressure 70 mm[Hg] DO Deysimindi Mayfieldnger Work Phone: [facility] 03-11-2023 09:26-0400 Heart rate 103 /min DO Deysi Mayfieldnger Work Phone: [facility] 03-11-2023 09:26-0400 Respiratory rate 17 /min DO Deysimindi Mayfieldnger Work Phone: [facility] 03-11-2023 09:26-0400 SaO2% (BldA) [Mass fraction] 90 % DO Deysi Matthew Work Phone: [facility] 03-11-2023 09:26-0400 Systolic blood pressure 122 mm[Hg] DO Deysimindi Mayfieldnger Work Phone: [facility] 03-01-2023 14:19-0400 Body mass index (BMI) [Ratio] 40.8 kg/m2 DO Deysi Matthew Work Phone: [facility] 03-01-2023 14:19-0400 Body temperature 97.8 [degF] DO Deysimindi Mayfieldnger Work Phone: [facility] 03-01-2023 14:19-0400 Body weight 111.41 kg DO Deysi Matthew Work Phone: [facility] 03-01-2023 14:19-0400 Diastolic blood pressure 60 mm[Hg] DO Deysi Matthew Work Phone: [facility] 03-01-2023 14:19-0400 Heart rate 92 /min DO Deysi Matthew Work Phone: [facility] 03-01-2023 14:19-0400 Respiratory rate 17 /min DO Deysi Matthew Work Phone: [facility] 03-01-2023 14:19-0400 SaO2% (BldA) [Mass fraction] 96 % DO Deysi Matthew Work Phone: [facility] 03-01-2023 14:19-0400 Systolic blood pressure 122 mm[Hg] DO Deysi Matthew Work Phone: [facility] 02-27-2023 14:39-0400 Body height 165.1 cm DO Deysi Matthew Work Phone: [facility] 02-27-2023 14:39-0400 Body mass index (BMI) [Ratio] 40.8 kg/m2 DO Deysi Matthew Work Phone: [facility] 02-27-2023 14:39-0400 Body temperature 98.2 [degF] DO Deysi Matthew Work Phone: [facility] 02-27-2023 14:39-0400 Body weight 111.41 kg DO Deysi Matthew Work Phone: [facility] 02-27-2023 14:39-0400 Diastolic blood pressure 54 mm[Hg] DO Deysi Matthew Work Phone: [facility] 02-27-2023 14:39-0400 Heart rate 96 /min DO Deysi Matthew Work Phone: [facility] 02-27-2023 14:39-0400 Respiratory rate 17 /min DO Deysi Matthew Work Phone: [facility] 02-27-2023 14:39-0400 SaO2% (BldA) [Mass fraction] 96 % DO Deysi Castro Work Phone: [facility] 02-27-2023 14:39-0400 Systolic blood pressure 118 mm[Hg] DO Deysi Castro Work Phone: [facility] 01-25-2023 15:51-0400 Body temperature 98.8 [degF] Dr. Gilberto Rasmussen Work Phone: [facility] 01-25-2023 15:51-0400 Diastolic blood pressure 80 mm[Hg] Dr. Gilberto Rasmussen Work Phone: [facility] 01-25-2023 15:51-0400 Heart rate 74 /min Dr. Gilberto Rasmussen Work Phone: [facility] 01-25-2023 15:51-0400 Inhaled oxygen flow rate 3 L/min Dr. Gilberto Rasmussen Work Phone: [facility] 01-25-2023 15:51-0400 Respiratory rate 18 /min Dr. Gilberto Rasmussen Work Phone: [facility] 01-25-2023 15:51-0400 SaO2% (BldA) [Mass fraction] 95 % Dr. Gilberto Rasmussen Work Phone: [facility] 01-25-2023 15:51-0400 Systolic blood pressure 134 mm[Hg] Dr. Gilberto Rasmussen Work Phone: [facility] 01-23-2023 09:35-0400 Body height 165.[address] Gilberto Rasmussen Work Phone: [facility] 01-23-2023 09:35-0400 Body mass index (BMI) [Ratio] 41.1 kg/m2 Dr. Gilberto Rasmussen Work Phone: [facility] 01-23-2023 09:35-0400 Body weight [address] Gilberto Rasmussen Work Phone: 5(143)168-115810 [place] [address] 01-23-2023 08:39-0400 Body temperature 98 [degF] Dr. Gilberto Rasmussen Work Phone: 7(798)165-616910 [place] [address] 01-23-2023 08:39-0400 Diastolic blood pressure 79 mm[Hg] Dr. Gilberto Rasmussen Work Phone: 6(883)756-251710 [place] [address] 01-23-2023 08:39-0400 Heart rate 84 /min Dr. Gilberto Rasmussen Work Phone: 1(686)084-385910 [place] [address] 01-23-2023 08:39-0400 Respiratory rate 17 /min Dr. Gilberto Rasmussen Work Phone: 5(335)623-205710 [place] [address] 01-23-2023 08:39-0400 SaO2% (BldA) [Mass fraction] 95 % Dr. Gilberto Rasmussen Work Phone: 4(402)175-160610 [place] [address] 01-23-2023 08:39-0400 Systolic blood pressure 138 mm[Hg] Dr. Gilberto Rasmussen Work Phone: 9(039)610-991410 [place] [address] 01-23-2023 03:03-0400 Body height 165.[address] Gilberto Rasmussen Work Phone: 9(664)833-969010 [place] [address] 01-23-2023 03:03-0400 Body mass index (BMI) [Ratio] 40.9 kg/m2 Dr. Gilberto Rasmussen Work Phone: 2(964)249-326510 [place] [address] 01-23-2023 03:03-0400 Body weight 111.[address] Gilberto Rasmussen Work Phone: 9(092)872-540710 [place] [address] 01-20-2023 13:29-0400 Heart rate 84 /min Dr. Gilberto Rasmussen Work Phone: 3(083)966-057410 [place] [address] 01-20-2023 13:29-0400 Respiratory rate 18 /min Dr. Gilberto Rasmussen Work Phone: 4(780)131-249810 [place] [address] 01-20-2023 13:29-0400 SaO2% (BldA) [Mass fraction] 95 % Dr. Gilberto Rasmussen Work Phone: [facility] 01-20-2023 11:55-0400 Body temperature 97.8 [degF] Dr. Gilberto Rasmussen Work Phone: [facility] 01-20-2023 11:55-0400 Diastolic blood pressure 81 mm[Hg] Dr. Gilberto Rasmussen Work Phone: [facility] 01-20-2023 11:55-0400 Systolic blood pressure 132 mm[Hg] Dr. Gilberto Rasmussen Work Phone: [facility] 01-20-2023 11:23-0400 Body height 165.[address] Gilberto Rasmussen Work Phone: [facility] 01-20-2023 11:23-0400 Body mass index (BMI) [Ratio] 40.1 kg/m2 Dr. Gilberto Rasmussen Work Phone: [facility] 01-20-2023 11:23-0400 Body weight 109.[address] Gilberto Rasmussen Work Phone: [facility] 01-20-2023 11:06-0400 Body temperature 97.7 [degF] Sean Villalba APRN.[employer] AX CONSULTANT Work Phone: [facility] 01-20-2023 11:06-0400 Body weight 109.77 kg Sean Villalba APRN.DYNAM[employer] AX CONSULTANT Work Phone: [facility] 01-20-2023 11:06-0400 Diastolic blood pressure 60 mm[Hg] Sean Villalba SEWER PIPE PR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.[employer] AX CONSULTANT Work Phone: [facility] 01-20-2023 11:06-0400 Heart rate 95 /min Sean Villalba SEWER PIPE PR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.DY[employer] AX CONSULTANT Work Phone: [facility] 01-20-2023 11:06-0400 Respiratory rate 20 /min Sean Villalba SEWER PIPE PR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.DY[employer] AX CONSULTANT Work Phone: [facility] 01-20-2023 11:06-0400 SaO2% (BldA) [Mass fraction] 94 % Sean Villalba SEWER PIPE PR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.DY[employer] AX CONSULTANT Work Phone: [facility] 01-20-2023 11:06-0400 Systolic blood pressure 116 mm[Hg] Sean Estesramón SEWER PIPE PR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.DYNAM[employer] AX CONSULTANT Work Phone: [facility] 01-01-2023 09:19-0400 Body mass index (BMI) [Ratio] 39.3 kg/m2 Dr. Gilberto Rasmussen Work Phone: [facility] 01-01-2023 09:19-0400 Body temperature 97.8 [degF] Dr. Gilberto Rasmussen Work Phone: [facility] 01-01-2023 09:19-0400 Body weight 107.[address] Gilberto Rasmussen Work Phone: [facility] 01-01-2023 09:19-0400 Diastolic blood pressure 68 mm[Hg] Dr. Gilberto Rasmussen Work Phone: [facility] 01-01-2023 09:19-0400 Heart rate 110 /min Dr. Gilberto Rasmussen Work Phone: [facility] 01-01-2023 09:19-0400 Respiratory rate 17 /min Dr. Gilberto Rasmussen Work Phone: [facility] 01-01-2023 09:19-0400 SaO2% (BldA) [Mass fraction] 97 % Dr. Gilberto Rasmussen Work Phone: [facility] 01-01-2023 09:19-0400 Systolic blood pressure 110 mm[Hg] Dr. Gilberto Rasmussen Work Phone: [facility] 11-29-2022 09:18-0400 Body height 165.[address] Gilberto Rasmussen Work Phone: [facility] 11-29-2022 09:18-0400 Body mass index (BMI) [Ratio] 39.9 kg/m2 Dr. Gilberto Rasmussen Work Phone: 1(163)784-605610 [place] [address] 11-29-2022 09:18-0400 Body temperature 97.8 [degF] Dr. Gilberto Rasmussen Work Phone: 7(452)875-142710 [place] [address] 11-29-2022 09:18-0400 Body weight 109.[address] Gilberto Rasmussen Work Phone: 8(456)400-357410 [place] [address] 11-29-2022 09:18-0400 Diastolic blood pressure 60 mm[Hg] Dr. Gilberto Rasmussen Work Phone: 9(167)935-720510 [place] [address] 11-29-2022 09:18-0400 Heart rate 81 /min Dr. Gilberto Rasmussen Work Phone: 5(450)368-321010 [place] [address] 11-29-2022 09:18-0400 Respiratory rate 17 /min Dr. Gilberto Rasmussen Work Phone: 5(237)417-748510 [place] [address] 11-29-2022 09:18-0400 SaO2% (BldA) [Mass fraction] 94 % Dr. Gilberto Rasmussen Work Phone: 4(354)856-811110 [place] [address] 11-29-2022 09:18-0400 Systolic blood pressure 108 mm[Hg] Dr. Gilberto Rasmussen Work Phone: 3(808)002-081310 [place] [address] 10-30-2022 14:18-0400 Body mass index (BMI) [Ratio] 40.7 kg/m2 Dr. Gilberto Rasmussen Work Phone: 5(345)850-206810 [place] [address] 10-30-2022 14:18-0400 Body temperature 97.8 [degF] Dr. Gilberto Rasmussen Work Phone: 2(265)591-469010 [place] [address] 10-30-2022 14:18-0400 Body weight 111.[address] Gilberto Rasmussen Work Phone: 2(766)796-493810 [place] [address] 10-30-2022 14:18-0400 Diastolic blood pressure 60 mm[Hg] Dr. Gilberto Rasmussen Work Phone: 0(625)897-974310 [place] [address] 10-30-2022 14:18-0400 Heart rate 88 /min Dr. Gilberto Rasmussen Work Phone: [facility] 10-30-2022 14:18-0400 Respiratory rate 16 /min Dr. Gilberto Rasmussen Work Phone: [facility] 10-30-2022 14:18-0400 SaO2% (BldA) [Mass fraction] 96 % Dr. Gilberto Rasmussen Work Phone: [facility] 10-30-2022 14:18-0400 Systolic blood pressure 118 mm[Hg] Dr. Gilberto Rasmussen Work Phone: [facility] 06-28-2022 12:45-0500 Diastolic blood pressure 63 mm[Hg] Asad Guerin MD Work Phone: [facility] 06-28-2022 12:45-0500 Heart rate 74 /min Asad Guerin MD Work Phone: [facility] 06-28-2022 12:45-0500 Respiratory rate 29 /min Asad Guerin MD Work Phone: [facility] 06-28-2022 12:45-0500 SaO2% (BldA) [Mass fraction] 94 % Asad Guerin MD Work Phone: [facility] 06-28-2022 12:45-0500 Systolic blood pressure 138 mm[Hg] Asad Guerin MD Work Phone: [facility] 06-28-2022 12:19-0500 Body temperature 98.2 [degF] Asad Guerin MD Work Phone: [facility] 06-27-2022 08:31-0500 Body height 165.[address] Autumn Almanzar Work Phone: [facility] 06-27-2022 08:31-0500 Body mass index (BMI) [Ratio] 41.2 kg/m2 Dr. Autumn Almanzar Work Phone: [facility] 06-27-2022 08:31-0500 Body temperature 98.2 [degF] Dr. Autumn Almanzar Work Phone: [facility] 06-27-2022 08:31-0500 Body weight 112.[address] Autumn Almanzar Work Phone: [facility] 06-27-2022 08:31-0500 Diastolic blood pressure 60 mm[Hg] Dr. Autumn Almanzar Work Phone: [facility] 06-27-2022 08:31-0500 Heart rate 86 /min Dr. Autumn Almanzar Work Phone: [facility] 06-27-2022 08:31-0500 Respiratory rate 16 /min Dr. Autumn Almanzar Work Phone: [facility] 06-27-2022 08:31-0500 SaO2% (BldA) [Mass fraction] 96 % Dr. Autumn Almanzar Work Phone: [facility] 06-27-2022 08:31-0500 Systolic blood pressure 120 mm[Hg] Dr. Autumn Almanzar Work Phone: [facility] 05-10-2022 10:24-0400 Body height 165.1 cm Manuela Dukes APRN.[employer] AX CONSULTANT Work Phone: [facility] 05-10-2022 10:24-0400 Body weight 112.04 kg Manuela Dukes APRN.DYNAM[employer] AX CONSULTANT Work Phone: [facility] 05-10-2022 10:24-0400 Diastolic blood pressure 68 mm[Hg] Manuela Dukes APRN.DYNAM[employer] AX CONSULTANT Work Phone: [facility] 05-10-2022 10:24-0400 Systolic blood pressure 124 mm[Hg] Manuela Dukes APRN.DYNAM[employer] AX CONSULTANT Work Phone: [facility] 04-28-2022 10:59-0400 Body height 165.1 cm Allyson Whitmore PA-C Work Phone: [facility] 04-28-2022 10:59-0400 Body temperature 97.3 [degF] Allyson Whitmore PA-C Work Phone: [facility] 04-28-2022 10:59-0400 Body weight 112.58 kg Allyson Greshamf PA-C Work Phone: [facility] 04-28-2022 10:59-0400 Diastolic blood pressure 76 mm[Hg] Allysonlamar Greshamf PA-C Work Phone: [facility] 04-28-2022 10:59-0400 Heart rate 81 /min Allysonlamar Greshamf PA-C Work Phone: [facility] 04-28-2022 10:59-0400 SaO2% (BldA) [Mass fraction] 94 % Allysonlamar Greshamf PA-C Work Phone: [facility] 04-28-2022 10:59-0400 Systolic blood pressure 124 mm[Hg] Allyosn Whitmore PA-C Work Phone: [facility] 02-14-2022 20:17-0400 Diastolic blood pressure 68 mm[Hg] Dr. Autumn Almanzar Work Phone: [facility] Work Phone: 02-14-2022 20:17-0400 Systolic blood pressure 142 mm[Hg] Dr. Autumn Almanzar Work Phone: [facility] Work Phone: 02-14-2022 13:50-0400 Body temperature 98.2 [degF] Dr. Autumn Almanzar Work Phone: [facility] Work Phone: 02-14-2022 13:50-0400 Heart rate 73 /min Dr. Autumn Almanzar Work Phone: [facility] Work Phone: 02-14-2022 13:50-0400 Respiratory rate 14 /min Dr. Autumn Almanzar Work Phone: [facility] Work Phone: 02-14-2022 13:50-0400 SaO2% (BldA) [Mass fraction] 96 % Dr. Autumn Almanzar Work Phone: [facility] Work Phone: Encounters Encounter Date Encounter Type Care Provider Facility Start: 01-01-2025 ambulatory [facility] Facility:[facility] Start: 12-27-2024 End: 12-29-2024 Follow-up encounter Leonardo Dhillon APRN.[employer] AX CONSULTANT Work Phone: [facility] Start: 12-27-2024 End: 12-27-2024 Subsequent hospital visit by physician [facility] Work Phone: Radiology Comment on above: Acute left ankle bebo n [M25.572] Start: 12-27-2024 End: 12-27-2024 Patient encounter procedure Leonardo Dhillon APRN.DYNAM[employer] AX CONSULTANT Work Phone: [facility] Comment on above: Acute left ankle bebo n (Primary Dx) Start: 12-27-2024 End: 12-27-2024 ambulatory [facility] Facility:[facility] Start: 12-08-2024 End: 12-08-[address] Gilberto Rasmussen MD -[facility] Work Phone: Start: 12-08-2024 End: 12-08-2024 ambulatory Meir Zepeda MD Work Phone: [facility] Work Phone: Start: 11-21-2024 End: 11-21-[address] Jose Ramon Terry DO -[facility] Work Phone: Start: 11-21-2024 End: 11-21-2024 ambulatory [facility] Facility:[facility] Start: 2024 End: [address] Gilberto Rasmussen MD Work Phone: [facility] Work Phone: Start: 2024 End: 2024 Patient encounter procedure Candida Diaz [place] Work Phone: Start: 2024 End: 2024 ambulatory Candida Burbank Facility:[facility] Start: 11-07-2024 End: 11-07-[address] Juve Johnson MD -[facility] Work Phone: Start: 11-07-2024 End: 11-07-2024 ambulatory Juve Johnson Facility:[facility] Start: 11-06-2024 End: 11-06-[address] Gilberto Rasmussen MD -[facility] Work Phone: Start: 11-06-2024 End: 11-06-2024 ambulatory Chalon Rachelle Facility:[facility] Start: 10-23-2024 End: 10-23-2024 ambulatory Meir Zepeda MD Work Phone: [facility] Work Phone: Start: 10-23-2024 End: 10-23-[address] Doris Yip MD -[facility] Work Phone: Start: 10-23-2024 End: 10-23-2024 ambulatory Chalon Rachelle Facility:[facility] Start: 10-06-2024 End: 10-06-[address] Jose Ramon Mckenzie MD -[facility] Work Phone: Start: 10-06-2024 End: 10-06-2024 ambulatory Chalon Rachelle Facility:[facility] Start: 10-02-2024 End: 10-02-[address] Gilberto Rasmussen MD -[facility] Work Phone: Start: 10-02-2024 End: 10-02-2024 ambulatory Chalon Rachelle Facility:[facility] Start: 09-29-2024 End: 09-29-[address] Jose Ramon Mckenzie MD -[facility] Work Phone: Start: 09-29-[address] Jose Ramon Mckenzie MD -[facility] Start: 09-29-2024 End: 09-29-2024 ambulatory Meir Zepeda MD Work Phone: [facility] Work Phone: Start: 09-29-2024 End: 09-29-2024 ambulatory Chalon Rachelle Facility:[facility] Start: 09-02-2024 End: 09-02-[address] Gilberto Rasmussen MD -[facility] Work Phone: Start: 09-02-2024 End: 09-02-2024 ambulatory Chalon Rachelle Facility:[facility] Start: 08-28-2024 End: 08-28-[address] Doris Yip MD -Laboratory, [place] Work Phone: Start: 08-28-2024 End: 08-28-2024 ambulatory Chalon Rachelle Facility:[facility] Start: 08-04-2024 End: 08-04-2024 Patient encounter procedure Josefa UNGER -[facility] Work Phone: Start: 08-04-2024 End: 08-04-2024 ambulatory Chalon Archelle Facility:[facility] Start: 08-01-2024 End: 08-01-[address] [facility] Start: 07-31-2024 End: 07-31-[address] Gilberto Rasmussen MD -[facility] Work Phone: Start: 07-31-2024 End: 08-01-2024 ambulatory Chalon Rachelle Facility:[facility] Start: 07-09-2024 End: 07-09-[address] Doris Yip MD -[facility], [facility] Work Phone: Start: 07-09-2024 End: 07-09-2024 ambulatory Chalon Rachelle Facility:[facility] Start: 07-07-2024 End: 07-07-2024 Patient encounter procedure Josefa UNGER -Cat Scan, [facility] Work Phone: Start: 07-07-2024 End: 07-07-2024 ambulatory Chalon Rachelle Facility:[facility] Start: 06-06-2024 End: 06-06-2024 ambulatory Chalon Rachelle Facility:[facility] Start: 05-22-2024 End: 05-22-2024 ambulatory Chalon Rachelle Facility:[facility] Start: 05-16-2024 End: 05-16-2024 ambulatory Chalon Rachelle Facility:[facility] Start: 04-21-2024 End: 04-21-2024 ambulatory Chalon Rachelle Facility:[facility] Start: 04-09-2024 End: 04-09-2024 ambulatory Chalon Rachelle Facility:[facility] Start: 03-18-2024 End: 03-18-2024 ambulatory Chalon Rachelle Facility:[facility] Start: 03-17-2024 End: 03-17-2024 ambulatory Chalon Rachelle Facility:[facility] Start: 02-19-2024 End: 02-19-2024 ambulatory Chalon Rachelle Facility:[facility] Start: 01-21-2024 End: 01-21-2024 ambulatory Doris Yip Facility:[facility] Start: 01-18-2024 End: 01-18-2024 ambulatory Rajani Dio Facility:[facility] Start: 01-17-2024 End: 01-17-2024 ambulatory Rajani Wharton Facility:[facility] Start: 01-11-2024 End: 01-11-2024 ambulatory Rajanigerber Wharton Facility:[facility] Start: 11-23-2023 End: 11-23-2023 Patient encounter procedure DO Deysi Castro Work Phone: [facility] Work Phone: Start: 11-20-2023 End: 11-20-2023 ambulatory DO Deysi Castro Work Phone: [facility] Work Phone: Start: 11-20-2023 End: 11-20-2023 Patient encounter procedure DO Deysi Castro Work Phone: [facility] Work Phone: Start: 11-17-2023 End: 11-17-2023 ambulatory DO Deysi Castro Work Phone: [facility] Work Phone: Start: 11-17-2023 End: 11-17-2023 Patient encounter procedure DO Deysi Mayfieldnger Work Phone: [facility] Work Phone: Start: 11-08-2023 End: 11-08-2023 Patient encounter procedure DO Deysi Mayfieldnger Work Phone: [facility] Work Phone: Start: 11-06-2023 End: 11-06-2023 Patient encounter procedure DO Deysi Mayfieldnger Work Phone: [facility] Work Phone: Start: 11-05-2023 End: 11-20-2023 ambulatory DO Deysi Castro Work Phone: [facility] Work Phone: Start: 11-05-2023 End: 11-20-2023 Discharged Recurring DO [facility] Castro [facility] Start: 10-19-2023 End: 10-19-2023 Patient encounter procedure DO Deysi Matthew Work Phone: [facility] Work Phone: Start: 10-19-2023 End: 10-19-2023 ambulatory DO Deysi Albaer Work Phone: [facility] Work Phone: Start: 10-19-2023 End: 10-19-2023 Patient encounter procedure DO Deysi Albaer Work Phone: [facility] Work Phone: Start: 10-11-2023 End: 10-11-2023 Patient encounter procedure DO Deysi Albaer Work Phone: [facility] Work Phone: Start: 10-08-2023 Registered Recurring DO Jennie n Matthew Work Phone: [facility] Start: 10-08-2023 End: 10-08-2023 Patient encounter procedure DO Deysi Mayfieldnger Work Phone: [facility] Work Phone: Start: 10-01-2023 End: 10-01-2023 ambulatory DO Deysi Albaer Work Phone: [facility] Work Phone: Start: 10-01-2023 End: 10-01-2023 Patient encounter procedure DO Deysi Albaer Work Phone: [facility] Work Phone: Start: 10-01-2023 Registered Recurring DO Jennie merrill Matthew Work Phone: [facility] Start: 09-24-2023 End: 09-24-2023 ambulatory DO Deysi Albaer Work Phone: [facility] Work Phone: Start: 09-24-2023 End: 09-24-2023 Patient encounter procedure DO Deysi Albaer Work Phone: [facility] Start: 09-11-2023 End: 09-11-2023 Patient encounter procedure DO Deysi Albaer Work Phone: [facility] Work Phone: Start: 08-09-2023 End: 08-09-2023 Patient encounter procedure DO Deysi Albaer Work Phone: [facility] Work Phone: Start: 07-25-2023 End: 07-25-2023 ambulatory DO Deysi M Matthew Work Phone: [facility] Work Phone: Start: 07-25-2023 End: 07-25-2023 Patient encounter procedure DO Deysi Castro [facility] Work [facility]: Start: 07-25-2023 End: 07-25-2023 Patient encounter procedure DO Deysi Castro Work Phone: [facility] Work Phone: Start: 07-10-2023 End: 07-10-2023 Patient encounter procedure DO Deysi Castro Work Phone: [facility] Work Phone: Start: 07-02-2023 End: 07-02-2023 ambulatory DO Deysi Castro Work Phone: [facility] Work Phone: Start: 07-02-2023 End: 07-02-2023 Patient encounter procedure DO Deysi Castro Work Phone: [facility] [place] Work Phone: Start: 06-22-2023 End: 06-25-2023 ambulatory DO Deysi Castro Work Phone: [facility] Work Phone: Start: 06-22-2023 End: 06-25-2023 Discharged Recurring DO Deysi Castro Work Phone: [facility] Work Phone: Start: 06-08-2023 End: 06-21-2023 ambulatory DO Deysi Castro Work Phone: [facility] Work Phone: Start: 06-08-2023 End: 06-21-2023 Discharged Recurring DO Deysi Albaer Work Phone: [facility] Work Phone: Start: 05-18-2023 End: 05-22-2023 ambulatory DO Deysi Albaer Work Phone: [facility] Work Phone: Start: 05-18-2023 End: 05-22-2023 Discharged Recurring DO Deysi Mayfieldnger [facility] Phone: [facility] Work Phone: Start: 05-03-2023 End: 05-03-2023 Subsequent hospital visit by physician Xr [facility] Work Phone: Radiology Comment on above: Empyema with no fist alicia (HCC) [J86.9] Start: 04-19-2023 End: 04-19-2023 Patient encounter procedure DO Deysi Mayfieldnger Work Phone: [facility] Work Phone: Start: 04-19-2023 End: 04-19-2023 Patient encounter procedure DO Deysi Mayfieldnger Work Phone: [facility] Work Phone: Start: 04-17-2023 REFILL - MYCMJT Sophia Christiansen Medical Records Comment on above: Medication Refill De nied Start: 04-13-2023 Registered Recurring DO Jennie Castro Work Phone: [facility] Start: 04-12-2023 End: 04-12-2023 Patient encounter procedure DO Deysimindi Mayfieldnger Work Phone: [facility] Work Phone: Start: 04-06-2023 End: 04-06-2023 Patient encounter procedure Chanel Martinez APRN.CNP Work Phone: [facility] Comment on above: Empyema with no fist alicia (HCC) (Primary Dx) Start: 04-06-2023 End: 04-06-2023 Subsequent hospital visit by physician Xr Chest [facility] J1 Work Phone: Radiology Comment on above: Surgery follow-up [Z 09] Start: 03-30-2023 Follow-up encounter Jeanne ashby MD Work Phone: [facility] Comment on above: Surgery follow-up (P rimary Dx) Start: 03-28-2023 End: 03-28-2023 Patient encounter procedure DO Deysi Castro Work Phone: [facility] Start: 03-15-2023 Non-patient / Non-visit DO Micaela Castro Work Phone: [facility] Work Phone: Start: 03-13-2023 End: 03-13-2023 ambulatory DO Deysi Castro Work Phone: [facility] Work Phone: Start: 03-13-2023 End: 03-13-2023 Patient encounter procedure DO Deysi Castro Work Phone: [facility]-Pre-Admission Testing Work Phone: Start: 03-13-2023 End: 03-13-2023 ambulatory DO Deysi Castro Work Phone: [facility] Work Phone: Start: 03-13-2023 End: 03-13-2023 Patient encounter procedure DO Deysi Castro Work Phone: [facility] Work Phone: Start: 03-12-2023 End: 03-12-2023 ambulatory DO Deysi Castro Work Phone: [facility] Work Phone: Start: 03-12-2023 End: 03-12-2023 Patient encounter procedure DO Deysi Castro Work Phone: [facility] Work Phone: Start: 03-11-2023 End: 03-11-2023 Patient encounter procedure DO Deysi Castro Work Phone: [facility] Work Phone: Start: 03-01-2023 End: 03-01-2023 Patient encounter procedure DO Deysi Castro Work Phone: [facility] Work Phone: Start: 02-27-2023 End: 02-27-2023 Patient encounter procedure DO Deysi Castro Work Phone: [facility] Work Phone: Start: 02-22-2023 End: 02-22-2023 ambulatory DO Deysi Castro Work Phone: [facility] Work Phone: Start: 02-22-2023 End: 02-22-2023 Patient encounter procedure DO Deysi Castro [facility] Work [facility]: Start: 02-20-2023 Telephone encounter Autumn Almanzar Work Phone: NOC Comment on above: Appointment Start: 02-02-2023 End: 02-02-[address] Gilberto Rasmussen Work Phone: [facility] Work Phone: Start: 02-02-2023 End: 02-02-[address] Gilberto Rasmussen Work Phone: [facility] Work Phone: Start: 01-30-2023 End: 01-30-[address] Gilberto Rasmussen Work Phone: [facility] Work Phone: Start: 01-30-2023 End: 01-30-[address] Gilberto Rasmussen Work Phone: [facility] Start: 01-25-2023 Non-patient / Non-visit Dr. Ra sarah Rasmussen Work Phone: [facility] Work Phone: Start: 01-24-2023 Non-patient / Non-visit Dr. Ra sarah Rasmussen Work Phone: [facility] Work Phone: Start: 01-23-2023 Non-patient / Non-visit Dr. Ra sarah Rasmussen Work Phone: [facility] Work Phone: Start: 01-23-2023 End: 01-25-2023 Evaluation and management of inpatient Dr. Gilberto Rasmussen [facility] Work Phone: Start: 01-23-[address] Manasa Rasmussen Work Phone: [facility] Work Phone: Start: 01-20-2023 End: 01-20-2023 Emergency department patient visit Dr. Gilberto Rasmussen Work Phone: [facility]-Emergency Department Work Phone: Start: 01-20-2023 End: 01-20-2023 Patient encounter procedure Sean Villalba APRN.DYNAMICS AX CONSULTANT Work Phone: [facility] Comment on above: Pleuritic pain (Prim jazmyn Dx) Start: 01-18-2023 End: 01-18-[address] Gilberto Rasmussen Work Phone: [facility] Work Phone: Start: 01-18-2023 End: 01-18-[address] Gilberto Rasmussen Work Phone: [facility]-Physical Therapy Work Phone: Start: 01-18-[address] Junior Rasmussen [facility] Start: 01-01-2023 End: 01-01-[address] Gilberto Rasmussen Work Phone: [facility] Work Phone: Start: 12-27-[address] Junior Rasmussen Work Phone: [facility]-Physical Therapy Start: 12-25-2022 End: 12-25-[address] Gilberto Rasmussen Work Phone: [facility] Work Phone: Start: 12-25-2022 End: 12-25-[address] Gilberto Rasmussen Work Phone: [facility] Start: 12-25-2022 End: 12-25-[address] Gilberto Rasmussen Work Phone: [facility] Start: 11-29-2022 End: 11-29-[address] Gilberto Rasmussen Work Phone: [facility] Neurology Start: 11-06-2022 End: 11-06-[address] Gilberto Rasmussen Work Phone: [facility] Start: 10-30-2022 End: 10-30-[address] Gilberto Rasmussen Work Phone: [facility] Start: 08-31-2022 End: 08-31-[address] Autumn Almanzar Work Phone: [facility] Work Phone: Start: 08-31-2022 End: 08-31-[address] Autumn Almanzar Work Phone: [facility] Start: 07-24-2022 End: 07-24-[address] Autumn Almanzar Work Phone: [facility] Work Phone: Start: 07-24-2022 End: 07-24-[address] Autumn Almanzar Work Phone: [facility] Start: 06-28-2022 ambulatory OSIRIS ARIANA SANCHEZ Fa cility:[facility] Start: 06-28-2022 End: 06-28-2022 Subsequent hospital visit by physician Asad Guerin MD Work Phone: [facility] Endoscopy Comment on above: History of colonic p olyps [Z86.010] Start: 06-27-2022 End: 06-27-[address] Autumn Almanzar Work Phone: [facility] Start: 06-08-2022 End: 06-08-2022 ambulatory [facility] Work Phone: Start: 06-08-2022 End: 06-08-2022 Patient encounter procedure [facility] Start: 05-15-2022 End: 05-15-[address] Autumn Almanzar Work Phone: [facility] Work Phone: Start: 05-15-2022 End: 05-15-[address] Autumn Almanzar Work Phone: [facility] Start: 05-10-2022 End: 05-10-2022 Patient encounter procedure Manuela Dukes APRN.[employer] CONSULTANT Work Phone: OB/Gynecology Comment on above: Encounter for routin e gynecologic examination in Medicare patient (Primary Dx); Encounter for Papanicolaou smear for cervical cancer screening Start: 05-10-2022 End: 05-10-2022 Patient encounter status Manuela Dukes APRN.[employer] CONSULTANT Work Phone: OB/Gynecology Start: 04-28-2022 End: 04-28-2022 Patient encounter procedure Allyson Whitmore PA-C Work Phone: General Surgery Comment on above: History of colonic p olyps (Primary Dx); Encounter for screening for malignant neoplasm of colon Start: 04-13-2022 End: 04-13-[address] Autumn Almaznar Work Phone: [facility] Work Phone: Start: 04-13-2022 End: 04-13-[address] Autumn Almanzar Work Phone: [facility]-Outpatient Bone Densitometry Start: 02-14-2022 End: 02-14-[address] 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 Gilberto Rasmussen MD Work Phone: Start: 09-29-2024 Computed tomography of abdomen and pelvis with intravenous contrast Meir Zepeda MD Work Phone: Start: 09-29-2024 Albumin/Globulin ratio Meir Zepeda MD Work Phone: Start: 09-29-2024 Estimated creatinine clearance Meir Zepeda MD Work Phone: Start: 09-29-2024 Immunoglobulin M measurement Meir Zepeda MD Work Phone: Start: 09-29-2024 Urine lambda light c mary measurement Meir Zepeda MD Work Phone: Start: 08-28-2024 Measurement of renal function Meir Zepeda MD Work Phone: Comment on above: GFR Calc Start: 08-04-2024 Dual energy X-ray absorptiometry Meir Zepeda MD Work Phone: Start: 07-09-2024 Anaerobic microbial culture Meir Zepeda MD Work Phone: Start: 07-09-2024 Bacterial culture Mendel Zepeda MD Work Phone: Start: 07-09-2024 Gram stain microscopy C paoal Zepeda MD Work Phone: Start: 07-07-2024 CT of chest Meir bennett MD Work Phone: Start: 11-20-2023 Diagnostic radiograp hy of abdomen DO Deysi Castro Work Phone: Start: 11-17-2023 MRI of lumbar spine DO Deysi Castro Work Phone: Start: 11-08-2023 X-ray of lumbosacral spine DO Deysi Castro Work Phone: Start: 10-19-2023 Urine culture DO Jennie Castro Work Phone: Start: 10-08-2023 Urnls dip stick/tabl et reagent auto microscopy Meir Zepeda MD Work Phone: Start: 10-01-2023 Computed tomography of abdomen and pelvis with intravenous contrast DO Deysi Albaer Work Phone: Start: 07-02-2023 Pelvis X-ray DO Deysi Albaer Work Phone: Start: 06-08-2023 Anaerobic microbial culture DO Deysi Albaer Work Phone: Start: 06-08-2023 Investigation of transfusion reaction DO Deysi Albaer Work Phone: Start: 06-08-2023 Microbial culture, routine DO Deysi Albaer Work Phone: Start: 05-18-2023 Anaerobic microbial culture DO Deysi Albaer Work Phone: Start: 05-18-2023 Investigation of transfusion reaction DO Deysi Castro Work Phone: Start: 05-18-2023 Microbial culture, routine DO Deysi Castro Work Phone: Start: 05-03-2023 Radiologic exam ches t 2 views Chanel Martinez DYNAMICS AX CONSULTANT Work Phone: Start: 04-19-2023 Plain chest X-ray DO Medhat Castro Work Phone: Start: 04-13-2023 Trichomonas screening test Meir Zepeda MD Work Phone: Start: 04-06-2023 Radiologic exam ches t 2 views Jeanne Ellison MD Work Phone: Start: 03-13-2023 CT of chest without contrast DO Deysi Castro Work Phone: Start: 03-12-2023 Plain chest X-ray DO Medhat Castro Work Phone: Start: 02-22-2023 Plain chest X-ray DO Medhat Castro Work Phone: Start: 02-02-2023 End: 02-02-2023 Plain chest X-ray Dr. Gilberto Rasmussen Work Phone: Start: 01-24-[address] Gilberto Rasmussen Work Phone: Start: 01-24-[address] Laverne Rasmussen Work Phone: Start: 01-24-2023 Investigation of transfusion reaction Dr. Gilberto Rasmussen Work Phone: Start: 01-24-2023 Plain chest X-ray Dr. Laverne Rasmussen Work Phone: Start: 01-23-2023 SARS-CoV-2 & FLU Ant igen (Rapid) Dr. Gilberto Rasmussen Work Phone: Start: 01-23-2023 Ultrasonic guidance for thoracentesis Dr. Gilberto Rasmussen Work Phone: Start: 01-23-2023 CT angiography of ch est with contrast Dr. Gilberto Rasmussen Work Phone: Start: 01-20-2023 CT angiography of ch est with contrast Dr. Gilberto Rasmussen Work Phone: Start: 12-25-2022 Plain x-ray of pelvi s and lower extremity Dr. Gilberto Rasmussen Work Phone: Start: 07-24-2022 MRI of brain with contrast Dr. Autmun Almanzar Work Phone: Start: 06-28-2022 Radiologic exam colo n double contrast study Asad Guerin MD Work Phone: Start: 06-28-2022 Gluc bld gluc mntr d ev cleared fda spec home use Osiris Kim MD Work Phone: Start: 06-28-2022 Colonoscopy flx dx w /collj spec when pfrmd Allyson Whitmore PA-C Work Phone: Start: 06-28-2022 Colonoscopy Asad perez MD Work Phone: Start: 06-08-2022 Plain x-ray of pelvi s and lower extremity Start: 06-08-2022 X-ray of lumbosacral spine Start: 04-13-2022 Dual energy X-ray absorptiometry Dr. Autumn Almanzar Work Phone: Start: 04-13-2022 Screening mammography Paulette Almanzar Work Phone: Start: 12-06-2021 US scan of thyroid Start: 11-03-2021 Plain chest X-ray Start: 06-18-2019 Mammography Allyson quinonez PA-C Work Phone: Start: 01-24-2017 Colonoscopy Allyson quinonez PA-C Work Phone: Plan of Treatment Date Care Activity Detail Author Start: 06-28-2027 Colonoscopy COLONOSCOPY [facility] Start: 06-28-2027 COLORECTAL CANCER SCREENING COLORECTAL CANCER SCREENING [facility] Start: 06-28-2027 Screening for malign ant neoplasm of colon [facility] Start: 12-27-2025 BP Controlled (<130/80) BP Controlle d (<130/80) [facility] Start: 06-28-2025 Colonoscopy COLONOSCOPY [facility] Start: 06-28-2025 COLORECTAL CANCER SCREENING COLORECTAL CANCER SCREENING [facility] Start: 11-21-2024 Patient referral [facility] Work Phone: Start: 07-23-2024 Advance Directive Discussion Advance Directive Discussion [facility] Start: 03-23-2024 Covid-19 Vaccine () Covid-19 Vaccine () [facility] Start: 03-13-2024 3 comp foot exam completed DIABETIC FOOT EXAM [facility] Start: 03-13-2024 Diabetic foot examination Diabetic F oot Exam [facility] Start: 01-21-2024 BP CONTROLLED (<130/80) BP CONTROLLE D (<130/80) [facility] Start: 11-20-2023 Diagnostic radiograp hy of abdomen Abdomen Single View [facility] Start: 11-20-2023 XR Abdomen Single view [facility] Start: 11-08-2023 Patient referral [facility] Work Phone: Start: 06-14-2023 Hemoglobin A1c measurement HbA1C [facility] Start: 06-14-2023 Hemoglobin A1c/Hemoglobin.total in Blood HBA1C [facility] Start: 06-09-2023 Urine microalbumin profile [facility] Start: 05-18-2023 Anaerobic microbial culture Anaerobic Culture [facility] Start: 05-10-2023 BP CONTROLLED (<130/80) BP CONTROLLE D (<130/80) [facility] Start: 05-10-2023 Screening for malign ant neoplasm of cervix Cervical Cancer Screening [facility] Start: 04-28-2023 BP CONTROLLED (<130/80) BP CONTROLLE D (<130/80) [facility] Start: 04-19-2023 Patient referral [facility] Work Phone: Start: 03-23-2023 Covid-19 Vaccine () Covid-19 Vaccine () [facility] Start: 03-23-2023 Influenza vaccination C [facility] Start: 02-27-2023 Patient referral [facility] Work Phone: Start: 01-30-2023 [facility] Start: 01-26-2023 Prothrombin time [facility] Start: 01-25-2023 Patient discharge [facility] Start: 01-24-2023 [facility] Start: 01-24-2023 Anaerobic Culture Anaerobic Culture [facility] Start: 01-24-2023 Body Fluid Culture Body Fluid Cultur e [facility] Start: 01-24-2023 Vital signs measurements [facility] Start: 01-23-2023 Following clinical pathway protocol [facility] Start: 01-23-2023 Ambulation without limitation [facility] Start: 01-23-2023 Assessment of risk o f venous thromboembolism [facility] Start: 01-23-2023 Care regimes management [facility] Start: 01-23-2023 Insertion of cathete r into peripheral vein [facility] Start: 01-23-2023 Providing care accor ding to standard [facility] Start: 01-23-2023 [facility] Start: 01-23-2023 Verification routine [facility] Start: 01-23-2023 Admission procedure [facility] Start: 01-20-2023 Emergency dept visit high severity&threat funcj EMERGENCY DEPT VISIT HI MDM [facility] Start: 01-20-2023 Iv infusion hydratio n initial 31 min-1 hour HYDRATION IV INFUSION INIT [facility] Start: 12-25-2022 Patient referral [facility] Work Phone: Start: 12-14-2022 Shingrix Vaccine (2 of 2) Aguillon grix Vaccine (2 of 2) [facility] Start: 09-16-2022 COVID-19 VACCINE (5 - Moderna series) COVID-19 VACCINE (5 - Moderna series) [facility] Start: 07-23-2022 ADVANCE DIRECTIVE DISCUSSION ADVANCE DIRECTIVE DISCUSSION [facility] Start: 04-13-2022 Dual energy X-ray absorptiometry Dexa Bone Density Study [facility] Work Phone: Start: 02-14-2022 [place] and lambda lig ht chains [facility] Work Phone: Start: 2021 ADVANCE DIRECTIVE DISCUSSION ADVANCE DIRECTIVE DISCUSSION [facility] Start: 2021 BONE DENSITY BONE DENSITY [facility] Start: 2021 Bone Density Screening Bone Density Screening [facility] Start: 2021 Screening for osteoporosis Bone Density Screening [facility] Start: 07-29-2021 COVID-19 VACCINE (4 - Booster for Moderna series) COVID-19 VACCINE (4 - Booster for Moderna series) [facility] Start: 06-18-2020 Mammography [facility] Start: 06-18-2020 Screening for malign ant neoplasm of breast Mammogram Screening [facility] Start: 04-11-2020 ANNUAL PCP TEAM 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 MANAGER BRIAN DISEASE VISIT ANNUAL PCP TEAM CHRONIC DISEASE VISIT [facility] Start: 04-04-2020 Glaucoma screening Dilated Retinal E xam [facility] Start: 04-04-2020 Hepatitis C antibody , confirmatory test DILATED RETINAL EXAM [facility] Start: 03-14-2020 Hepatitis B screening URINE ALBUMIN:CREATININE RATIO [facility] Start: 03-10-2020 3 comp foot exam completed DIABETIC FOOT EXAM [facility] Start: 01-25-2020 Colonoscopy COLONOSCOPY [facility] Start: 01-25-2020 COLORECTAL CANCER SCREENING COLORECTAL CANCER SCREENING [facility] Start: 09-14-2019 Hemoglobin A1c/Hemoglobin.total in Blood HBA1C [facility] Start: 09-14-2019 Hepatitis B surface antibody level LDL CHOLESTEROL [facility] Start: 2016 Hepatitis B Vaccine (1 of 3 - Risk 3-dose series) Hepatitis B Vaccine (1 of 3 - Risk 3-dose series) [facility] Start: 2016 RSV Vaccine (1 - 1-d ose 60+ series) RSV Vaccine (1 - 1-dose 60+ series) [facility] Start: 2006 SHINGRIX VACCINE (1 of 2) AGUILLON GRIX VACCINE (1 of 2) [facility] Start: 2001 COLOGUARD (FIT-DNA) COLOGUARD (FIT-D NA) [facility] Start: [address] COLONOGRAPHY [facility] Start: 2001 FECAL OCCULT BLOOD FECAL OCCULT BLOO D [facility] Start: 2001 Screening for malign ant neoplasm of colon [facility] Start: 2001 SIGMOIDOSCOPY SIGMOIDOSCOPY [facility] Start: 1974 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 Annual PCP Team Chronic Disease Visit [facility] Start: 1974 BP Controlled (<130/80) BP Controlle d (<130/80) [facility] Start: 1974 HIV SCREENING HIV SCREENING [facility] Start: 1962 Pneumococcal Vaccine : 65+ (1 - PCV) Pneumococcal Vaccine: 65+ (1 - PCV) [facility] Start: 1962 PNEUMOCOCCAL: 65+ (1 - PCV) PNEUMOCOCCAL: 65+ (1 - PCV) [facility] Angiotensin converti ng enzyme [Enzymatic activity/volume] in Serum or Plasma [facility] Bacteria identified in Body fluid by Culture [facility] Bacteria identified in Unspecified specimen by Anaerobe culture [facility] Cyclic citrullinated peptide IgG Ab [Units/volume] in Serum or Plasma [facility] Folate [Mass/volume] in Serum or Plasma [facility] INR in Blood by Coagulation assay [facility] [place] and lambda lig ht chains [facility] [place]/lambda light c mary ratio [facility] Work Phone: Lambda light chains. free [Mass/volume] in Serum or Plasma [facility] Work Phone: Neutrophil cytoplasm ic Ab.classic [Units/volume] in Serum [facility] P-ANCA measurement [facility] PAP FLUID CERVICAL SCREENING PAP FLUID CERVICAL SCREENING Lab Routine Encounter for routine gynecologic examination in Medicare patient Encounter for Papanicolaou smear for cervical cancer screening Ordered: 05/10/2022 [facility] Work Phone: Comment on above: Ordered: 05/10/2022 Patient Education [facility] Work Phone: Patient referral [facility] Work Phone: End: 04-28-2024 Radiologic exam chest 2 views XR CHEST 2V FRONTAL/LAT Radiology Routine Surgery follow-up 1 Occurrences starting 03/30/2023 until 04/28/2024 [facility] Work Phone: Comment on above: 1 Occurrences starti ng 03/30/2023 until 04/28/2024 End: 05-05-2024 Radiologic exam chest 2 views XR CHEST 2V FRONTAL/LAT Radiology Routine 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) 1 Occurrences starting 04/06/2023 until 05/05/2024 [facility] Work Phone: Comment on above: 1 Occurrences starti ng 04/06/2023 until 05/05/2024 Serum immunofixation [facility] Smooth muscle Ab [Presence] in Serum [facility] Thiamine measurement [facility] Thyroid stimulating hormone measurement [facility] Urine immunofixation [facility] Urine kappa light ch ain measurement [facility] Work Phone: [facility] Work Phone: [facility] Immunizations Immunization Date Immunization Notes Care Provider Kyler joyner 10-19-[address] Gilberto Rasmussen Work Phone: [facility] 04-21-2022 influenza, injectabl e, quadrivalent, preservative free DO Deysi Castro Work Phone: [facility] 04-21-2022 influenza, seasonal, injectable Dr. Gilberto Rasmussen Work Phone: [facility] 04-21-2022 influenza virus vaccine, unspecified formulation Chanel Martinez APRN.CNP Work Phone: [facility] 06-03-2021 Covid (Moderna) Dr. Gilberto Rasmussen Work Phone: [facility] 04-01-2021 Influenza, injectabl e, Madin Lashae Canine Kidney, preservative free, quadrivalent Dr. Gilberto Rasmussen Work Phone: [facility] 10-29-2020 Stephanid (Moderna) Dr. Gilberto Rasmussen Work Phone: [facility] 10-01-2020 Covid (Moderna) Dr. Gilberto Rasmussen Work Phone: [facility] 04-23-2020 influenza, injectabl e, quadrivalent, preservative free DO Deysi Matthew Work Phone: [facility] 04-23-2020 influenza, seasonal, injectable Dr. Gilberto Rasmussen Work Phone: [facility] 06-03-2018 influenza, injectabl e, quadrivalent, preservative free DO Deysi Matthew Work Phone: [facility] 06-03-2018 influenza, seasonal, injectable Allyson Haim PA-C Work Phone: [facility] 04-16-2016 influenza, injectabl e, quadrivalent, preservative free Allyson Haim PA-C Work Phone: [facility] 04-16-2016 influenza, seasonal, injectable Dr. Gilberto Rasmussen Work Phone: [facility] 05-22-2014 influenza, injectabl e, quadrivalent, preservative free DO Deysi Matthew Work Phone: [facility] 05-22-2014 influenza, seasonal, injectable Allyson Haim PA-C Work Phone: [facility] 06-09-2013 influenza virus vaccine, unspecified formulation Allyson Haim PA-C Work Phone: [facility] 06-09-2013 tetanus toxoid, redu bryanna diphtheria toxoid, and acellular pertussis vaccine, adsorbed Allyson Haim PA-C Work Phone: [facility] Payers Date Payer Category Payer Self-pay [id number] 2021 Medicare [id number] 2021 Private Health Insurance [id number] 2021 Medicare [id number] 2021 Unknown [id number] 2013 Unknown [id number] Private Health Insurance [id number] Unknown [id number] Unknown [id number] Unknown [id number] 2.16.8 40.1.042601.3.579.2.462 Unknown [id number] 2.16.8 40.1.479917.3.579.2.462 Unknown [id number] 2.16.8 40.1.077131.3.579.2.462 Unknown [id number] 2.16.8 40.1.995735.3.579.2.462 Unknown [id number] 2.16.8 40.1.851479.3.579.2.462 Unknown [id number] 2.16.8 40.1.872484.3.579.2.462 Unknown [id number] 2.16.8 40.1.844123.3.579.2.462 Unknown [id number] 2.16.8 40.1.411165.3.579.2.462 Unknown [id number] 2.16.8 40.1.819605.3.579.2.462 Unknown [id number] 2.16.8 40.1.006721.3.579.2.462 Unknown [id number] 2.16.8 40.1.389649.3.579.2.462 Unknown [id number] 2.16.8 40.1.045008.3.579.2.462 Unknown [id number] 2.16.8 40.1.945662.3.579.2.462 Unknown [id number] 2.16.8 40.1.306065.3.579.2.462 Unknown [id number] 2.16.8 40.1.455596.3.579.2.462 Unknown [id number] 2.16.8 40.1.841109.3.579.2.462 Unknown [id number] 2.16.8 40.1.268528.3.579.2.462 Unknown [id number] 2.16.8 40.1.217143.3.579.2.462 Unknown [id number] 2.16.8 40.1.325498.3.579.2.462 Unknown [id number] 2.16.8 40.1.111279.3.579.2.462 Unknown [id number] 2.16.8 40.1.138855.3.579.2.462 Unknown [id number] 2.16.8 40.1.893968.3.579.2.462 Unknown [id number] 2.16.8 40.1.706143.3.579.2.462 Unknown [id number] 2.16.8 40.1.159038.3.579.2.462 Unknown [id number] 2.16.8 40.1.548727.3.579.2.462 Unknown [id number] 2.16.8 40.1.923777.3.579.2.462 Unknown [id number] 2.16.8 40.1.212625.3.579.2.462 Unknown [id number] 2.16.8 40.1.969730.3.579.2.462 Unknown [id number] 2.16.8 40.1.891675.3.579.2.462 Unknown [id number] 2.16.8 40.1.477316.3.579.2.462 Unknown [id number] 2.16.8 40.1.018873.3.579.2.462 Unknown [id number] 2.16.8 40.1.806013.3.579.2.462 Unknown [id number] 2.16.8 40.1.297111.3.579.2.462 Social History Date Type Detail Facility Start: 06-13-2021 End: 04-27-2023 Tobacco smoking status NHIS Unknown if ever smoked [facility] Start: 12-14-2018 None [facility] Start: 12-14-2018 With Family [facility] Start: 12-15-2018 Non-smoker [facility] Start: 1955 Sex Assigned At Female C [facility] Start: 11-05-2017 End: 01-20-2023 Tobacco smoking status NHIS Ex-smoker [facility] History of tobacco use Current smoker [facility] History of tobacco use Cigarette Smoker C [facility] History of tobacco use Cigar Smoker [facility] Start: 11-05-2017 End: 03-14-2023 Cigarettes smoked current (pack per day) - Reported 1.5 [facility] Start: 11-05-2017 End: 01-20-2023 Tobacco use and exposure Smokeless tobacco non-user [facility] Start: 04-28-2022 End: 04-23-2023 Alcohol intake Current non-drinker of alcohol (finding) [facility] Start: 05-18-2014 End: 01-20-2023 Tobacco Comment 01/20/14 [facility] Start: 04-18-2022 End: 04-28-2022 Exposure to SARS-CoV-2 (event) Not sure [facility] Start: 01-20-2023 End: 03-14-2023 Tobacco use panel [facility] Adult Depression Screening Assessment 0 [facility] Start: 12-26-2021 Gender identity Identifies as female gender (finding) [facility] Start: 12-26-2021 Sexual orientation Heterosexual (fin maryjane) [facility] Start: 11-06-2023 Tobacco smoking stat us NHIS Never smoked tobacco (finding) [facility] Start: 10-07-2024 End: 11-18-2024 Sex Female (finding) [facility] Medical Equipment Procedure Code Equipment Code Equipment Origin al Text Equipment Identifier Dates Cystoscopic insertion of stent STENT,URETERAL 6FR PIG 6X26 FDA Start: 12-14-2018 Cystoscopic insertion of stent STENT,URETERAL 6FR PIG 6X26 FDA Start: 12-14-2018 Cystoscopic insertion of stent STENT,URETERAL 6FR PIG 6X26 FDA Start: 12-14-2018 Cystoscopic insertion of stent STENT,URETERAL 6FR PIG 6X26 FDA Start: 12-14-2018 Cystoscopic insertion of stent STENT,URETERAL 6FR PIG 6X26 FDA Start: 12-14-2018 Cystoscopic insertion of stent STENT,URETERAL 6FR PIG 6X26 FDA Start: 12-14-2018 Cystoscopic insertion of stent STENT,URETERAL 6FR PIG 6X26 FDA Start: 12-14-2018 Cystoscopic insertion of stent STENT,URETERAL 6FR PIG 6X26 FDA Start: 12-14-2018 Cystoscopic insertion of stent STENT,URETERAL 6FR PIG 6X26 FDA Start: 12-14-2018 Cystoscopic insertion of stent STENT,URETERAL 6FR PIG 6X26 FDA Start: 12-14-2018 Cystoscopic insertion of stent STENT,URETERAL 6FR PIG 6X26 FDA Start: 12-14-2018 Cystoscopic insertion of stent STENT,URETERAL 6FR PIG 6X26 FDA Start: 12-14-2018 Cystoscopic insertion of stent STENT,URETERAL 6FR PIG 6X26 FDA Start: 12-14-2018 Cystoscopic insertion of stent STENT,URETERAL 6FR PIG 6X26 FDA Start: 12-14-2018 Cystoscopic insertion of stent STENT,URETERAL 6FR PIG 6X26 FDA Start: 12-14-2018 Cystoscopic insertion of stent STENT,URETERAL 6FR PIG 6X26 FDA Start: 12-14-2018 Cystoscopic insertion of stent STENT,URETERAL 6FR PIG 6X26 FDA Start: 12-14-2018 Cystoscopic insertion of stent STENT,URETERAL 6FR PIG 6X26 FDA Start: 12-14-2018 Cystoscopic insertion of stent STENT,URETERAL 6FR PIG 6X26 FDA Start: 12-14-2018 Cystoscopic insertion of stent STENT,URETERAL 6FR PIG 6X26 FDA Start: 12-14-2018 Cystoscopic insertion of stent STENT,URETERAL 6FR PIG 6X26 FDA Start: 12-14-2018 Cystoscopic insertion of stent STENT,URETERAL 6FR PIG 6X26 FDA Start: 12-14-2018 Cystoscopic insertion of stent STENT,URETERAL 6FR PIG 6X26 FDA Start: 12-14-2018 Cystoscopic insertion of stent STENT,URETERAL 6FR PIG 6X26 FDA Start: 12-14-2018 Cystoscopic insertion of stent STENT,URETERAL 6FR PIG 6X26 FDA Start: 12-14-2018 Cystoscopic insertion of stent STENT,URETERAL 6FR PIG 6X26 FDA Start: 12-14-2018 Cystoscopic insertion of stent STENT,URETERAL 6FR PIG 6X26 FDA Start: 12-14-2018 Cystoscopic insertion of stent STENT,URETERAL 6FR PIG 6X26 FDA Start: 12-14-2018 Cystoscopic insertion of stent STENT,URETERAL 6FR PIG 6X26 FDA Start: 12-14-2018 Cystoscopic insertion of stent STENT,URETERAL 6FR PIG 6X26 FDA Start: 12-14-2018 Cystoscopic insertion of stent STENT,URETERAL 6FR PIG 6X26 FDA Start: 12-14-2018 Cystoscopic insertion of stent STENT,URETERAL 6FR PIG 6X26 FDA Start: 12-14-2018 Cystoscopic insertion of stent STENT,URETERAL 6FR PIG 6X26 FDA Start: 12-14-2018 Cystoscopic insertion of stent STENT,URETERAL 6FR PIG 6X26 FDA Start: 12-14-2018 Cystoscopic insertion of stent STENT,URETERAL 6FR PIG 6X26 FDA Start: 12-14-2018 Cystoscopic insertion of stent STENT,URETERAL 6FR PIG 6X26 FDA Start: 12-14-2018 Cystoscopic insertion of stent STENT,URETERAL 6FR PIG 6X26 FDA Start: 12-14-2018 Cystoscopic insertion of stent STENT,URETERAL 6FR PIG 6X26 FDA Start: 12-14-2018 Cystoscopic insertion of stent STENT,URETERAL 6FR PIG 6X26 FDA Start: 12-14-2018 Cystoscopic insertion of stent STENT,URETERAL 6FR PIG 6X26 FDA Start: 12-14-2018 Cystoscopic insertion of stent STENT,URETERAL 6FR PIG 6X26 FDA Start: 12-14-2018 Cystoscopic insertion of stent STENT,URETERAL 6FR PIG 6X26 FDA Start: 12-14-2018 Cystoscopic insertion of stent STENT,URETERAL 6FR PIG 6X26 FDA Start: 12-14-2018 Cystoscopic insertion of stent STENT,URETERAL 6FR PIG 6X26 FDA Start: 12-14-2018 Cystoscopic insertion of stent STENT,URETERAL 6FR PIG 6X26 FDA Start: 12-14-2018 Cystoscopic insertion of stent STENT,URETERAL 6FR PIG 6X26 FDA Start: 12-14-2018 Cystoscopic insertion of stent STENT,URETERAL 6FR PIG 6X26 FDA Start: 12-14-2018 Cystoscopic insertion of stent STENT,URETERAL 6FR PIG 6X26 FDA Start: 12-14-2018 Cystoscopic insertion of stent STENT,URETERAL 6FR PIG 6X26 FDA Start: 12-14-2018 Cystoscopic insertion of stent STENT,URETERAL 6FR PIG 6X26 FDA Start: 12-14-2018 Cystoscopic insertion of stent STENT,URETERAL 6FR PIG 6X26 FDA Start: 12-14-2018 Cystoscopic insertion of stent STENT,URETERAL 6FR PIG 6X26 FDA Start: 12-14-2018 Cystoscopic insertion of stent STENT,URETERAL 6FR PIG 6X26 FDA Start: 12-14-2018 Cystoscopic insertion of stent STENT,URETERAL 6FR PIG 6X26 FDA Start: 12-14-2018 Cystoscopic insertion of stent STENT,URETERAL 6FR PIG 6X26 FDA Start: 12-14-2018 Cystoscopic insertion of stent STENT,URETERAL 6FR PIG 6X26 FDA Start: 12-14-2018 Cystoscopic insertion of stent STENT,URETERAL 6FR PIG 6X26 FDA Start: 12-14-2018 Cystoscopic insertion of stent STENT,URETERAL 6FR PIG 6X26 FDA Start: 12-14-2018 Cystoscopic insertion of stent STENT,URETERAL 6FR PIG 6X26 FDA Start: 12-14-2018 Cystoscopic insertion of stent STENT,URETERAL 6FR PIG 6X26 FDA Start: 12-14-2018 Cystoscopic insertion of stent STENT,URETERAL 6FR PIG 6X26 FDA Start: 12-14-2018 Cystoscopic insertion of stent STENT,URETERAL 6FR PIG 6X26 FDA Start: 12-14-2018 Cystoscopic insertion of stent STENT,URETERAL 6FR PIG 6X26 FDA Start: 12-14-2018 Cystoscopic insertion of stent STENT,URETERAL 6FR PIG 6X26 FDA Start: 12-14-2018 Cystoscopic insertion of stent STENT,URETERAL 6FR PIG 6X26 FDA Start: 12-14-2018 Cystoscopic insertion of stent STENT,URETERAL 6FR PIG 6X26 FDA Start: 12-14-2018 Cystoscopic insertion of stent STENT,URETERAL 6FR PIG 6X26 FDA Start: 12-14-2018 Cystoscopic insertion of stent STENT,URETERAL 6FR PIG 6X26 FDA Start: 12-14-2018 Cystoscopic insertion of stent STENT,URETERAL 6FR PIG 6X26 FDA Start: 12-14-2018 Cystoscopic insertion of stent STENT,URETERAL 6FR PIG 6X26 FDA Start: 12-14-2018 use 3 times a da y or as directedwith insulin pens Start: 03-24-2023 Comment on above: use 3 times a day or as directedwith insulin pens Goals Date Patient Goal Desired Activity /State Functional Status Date Assessment Result Facility 03-24-2023 Are you deaf, or do you have serious difficulty hearing No 03/24/2023 3:30 PM EDLudmila Kendrick RN No [facility] 03-24-2023 Are you blind, or do you have serious difficulty seeing, even when wearing glasses No 03/24/2023 3:30 PM EDLudmila Kendrick, GURVINDER No [facility] 03-24-2023 Do you have serious difficulty walking or climbing stairs No 03/24/2023 3:30 PM EDT Ludmila Mlaone, GURVINDER No [facility] 03-24-2023 Do you have difficul ty dressing or bathing No 03/24/2023 3:30 PM EDT Ludmila Malone, GURVINDER No [facility] 03-24-2023 Because of a physica l, mental, or emotional condition, do you have difficulty doing errands alone such as visiting a physician's office or shopping No 03/24/2023 3:30 PM EDLudmila Kendrick, GURVINDER No [facility] 01-25-2023 Functional status Ambulates [facility] Work Phone: Mental Status Date Assessment Result Facility 03-24-2023 Because of a physica l, mental, or emotional condition, do you have serious difficulty concentrating, remembering, or making decisions No 03/24/2023 3:30 PM EDT Ludmila Malone RN No [facility] 01-25-2023 Cognitive function Voice/Name [facility] Work Phone: 01-24-2023 Cognitive function Level Of Cons ciousness Awake;Alert;Appropriate;Fol lows Commands [facility] Work Phone: Clinical Notes 11-05-2017 to 12-29-2024 Telephone Encounter - Lucy Trujillo RN - 12/29/2024 8:46 AM EDTTelephone Encounter - Lucy Trujillo RN - 12/29/2024 8:46 AM EDTCMohit pena RT(R) - 12/27/2024 10:30 AM EDT Note Date & Type Note Facility 12-29-2024 Telephone encounter Note Patient notified of results and provider's instructions. Patient verbalizes understanding. Lucy Trujillo RN [facility] 12-29-2024 Miscellaneous Notes Patient notified of results and provider's instructions. Patient verbalizes understanding. Lucy Trujillo RN Left message for patient to return call for results.Larisa West LPN Attempted to contact patient to inform her that the x-ray of her ankle showed no sign of fracture or dislocation. I do feel that symptoms are more consistent with a generalized sprain/strain and she should resume activities as tolerated and follow-up with her family doctor as needed. documented in this encounter [facility] 12-29-2024 Telephone encounter Note Left message for patient to return call for results.Larisa West LPN [facility] 12-27-2024 Telephone encounter Note Attempted to contact patient to inform her that the x-ray of her ankle showed no sign of fracture or dislocation. I do feel that symptoms are more consistent with a generalized sprain/strain and she should resume activities as tolerated and follow-up with her family doctor as needed. [facility] Work Phone: 12-27-2024 History of Presen t illness Narrative Radiology Service Progress Note PATIENT NAME: Art Blue DATE OF SERVICE: December 27, 2024 TIME: 10:31 AM PATIENT IDENTITY VERIFICATION COMPLETED USING TWO (2) IDENTIFIERS: Name and Date of confirmed by patient verbally. FALL SCREENING: Has the patient had 2 falls in the last year or 1 fall with injury or currently using an Ambulatory Assistive Device (Walker, Cane, Wheelchair, Crutches, etc.)? Yes, Patient High Risk for Falls What interventions were put in place to prevent falls during this visit? Increased Observations by Caregivers PATIENT GENDER DATA: Assigned female at . status: : No status: NO. PATIENT RELEVANT IMPLANT DATA REVIEWED: Not Applicable PATIENT PRESENTS WITH AN IMPLANTABLE OR ATTACHED RETAIL EXPERIENCE SPECIALIST: No RADIOLOGY DEPARTMENT: General X-ray: Exam(s) Completed: Lower Extremity X-Ray(s): Ankle, Left PERIPHERAL IV DATA: Not applicable SIGNED BY: RT Muna(Laverne) December 27, 2024 10:31 AM documented in this encounter [facility] 12-27-2024 Note HNO ID: [id number] Author: [place] RT(Laverne) Service: ? Author Type: Technologist Type: Progress Notes Filed: 12/27/2024 10:37 Note Text: Radiology Service Progress Note PATIENT NAME: Art Blue DATE OF SERVICE: December 27, 2024 TIME: 10:31 AM PATIENT IDENTITY VERIFICATION COMPLETED USING TWO (2) IDENTIFIERS: Name and Date of confirmed by patient verbally. FALL SCREENING: Has the patient had 2 falls in the last year or 1 fall with injury or currently using an Ambulatory Assistive Device (Walker, Cane, Wheelchair, Crutches, etc.)? Yes, Patient High Risk for Falls What interventions were put in place to prevent falls during this visit? Increased Observations by Caregivers PATIENT GENDER DATA: Assigned female at . status: : No status: NO. PATIENT RELEVANT IMPLANT DATA REVIEWED: Not Applicable PATIENT PRESENTS WITH AN IMPLANTABLE OR ATTACHED RETAIL EXPERIENCE SPECIALIST: No RADIOLOGY DEPARTMENT: General X-ray: Exam(s) Completed: Lower Extremity X-Ray(s): Ankle, Left PERIPHERAL IV DATA: Not applicable SIGNED BY: RT Muna(R) December 27, 2024 10:31 AM [facility] 12-27-2024 Note HNO ID: [id number] Author: LEONARDO DHILLON APRN.DYNAMICS AX CONSULTANT Service: ? Author Type: Nurse Practitioner Type: Progress Notes Filed: 12/27/2024 12:59 Note Text: This note was created using [email or web address]. Subjective Art Blue is a 69 year old female. HPI Patient complains of ongoing left ankle pain over the last 5 months however about 2 days ago she fell and then while walking she felt a popping sensation in her left ankle. She does note a history of osteoarthritis in that ankle and notes that her right hip is scheduled for replacement. Review of Systems As above Objective BP 110/58 Pulse 86 Temp 36.2 ?C (97.1 ?F) Resp 21 Wt 106.8 kg (235 lb 7.2 oz) SpO2 96% BMI 38.59 kg/m? Physical Exam Vitals and nursing note reviewed. Constitutional: General: She is not in acute distress. Appearance: Normal appearance. She is not ill-appearing. HENT: Head: Normocephalic. Pulmonary: Effort: Pulmonary effort is normal. Musculoskeletal: General: Normal range of motion. Comments: Diffuse tenderness of the left ankle with no obvious swelling or deformities noted. No pain on the tibia or left knee Skin: General: Skin is warm. Neurological: General: No focal deficit present. Mental Status: She is alert and oriented to person, place, and time. Psychiatric: Mood and Affect: Mood normal. Behavior: Behavior normal. Assessment and Plan ASSESSMENT/PLAN: 1. Acute left ankle pain - ICD9: 719.47, ICD10: M25.572 X-ray of the left ankle showed no acute abnormalities. Discussed with patient that symptoms are most likely related to some sort of a sprain/strain combined with her history of arthritis in that ankle. Recommended slowly resuming activities as tolerated and using ibuprofen or Tylenol as needed for pain. Patient comfortable with plan. - XR ANKLE GENERAL 3V AP/LAT/OBL LEFT Leonardo Dhillon APRN.CNP [facility] 12-27-2024 History of Presen t illness Narrative This note was created using [email or web address]. Subjective Art Blue is a 69 year old female. HPI Patient complains of ongoing left ankle pain over the last 5 months however about 2 days ago she fell and then while walking she felt a popping sensation in her left ankle. She does note a history of osteoarthritis in that ankle and notes that her right hip is scheduled for replacement. Review of Systems As above Objective BP 110/58 Pulse 86 Temp 36.2 C (97.1 F) Resp 21 Wt 106.8 kg (235 lb 7.2 oz) SpO2 96% BMI 38.59 kg/m Physical Exam Vitals and nursing note reviewed. Constitutional: General: She is not in acute distress. Appearance: Normal appearance. She is not ill-appearing. HENT: Head: Normocephalic. Pulmonary: Effort: Pulmonary effort is normal. Musculoskeletal: General: Normal range of motion. Comments: Diffuse tenderness of the left ankle with no obvious swelling or deformities noted. No pain on the tibia or left knee Skin: General: Skin is warm. Neurological: General: No focal deficit present. Mental Status: She is alert and oriented to person, place, and time. Psychiatric: Mood and Affect: Mood normal. Behavior: Behavior normal. Assessment and Plan ASSESSMENT/PLAN: 1. Acute left ankle pain - ICD9: 719.47, ICD10: M25.572 X-ray of the left ankle showed no acute abnormalities. Discussed with patient that symptoms are most likely related to some sort of a sprain/strain combined with her history of arthritis in that ankle. Recommended slowly resuming activities as tolerated and using ibuprofen or Tylenol as needed for pain. Patient comfortable with plan. - XR ANKLE GENERAL 3V AP/LAT/OBL LEFT Leonardo Dhillon APRN.ERAN documented in this encounter [facility] 09-29-2024 Radiology Diagnostic study note [facility] Imaging Services [address] [place] [address] Abdomen/Pelvis W IV Cont ONLY MR#: [id number] Acct: [id number] Name: ART BLUE Rep #: [id number] : [id number] F 68 From: Candice Rueda MD PCP: Dr. Meir Zepeda MD Status: REG CL I Study:Abdomen/Pelvis W IV Cont ONLY Date of E xam: 09/29/24 Exam# [id number] Ordering Dr: Eugene Mckenzie MD EXAM: CT Abdomen and Pelvis With Intravenous Contrast CLINICAL INDICATION: TECHNIQUE: Axial computed tomography images of the abdomen and pelvis with intravenous contrast. This CT exam was performed using one or more of the following dose reduction techniques: automated exposure control, adjustment of the mA and/or kV according to patient size, and/or use of iterative reconstruction technique. COMPARISON: CT Abdomen Pelvis dated 10/01/2023 FINDINGS: LUNG BASES: Partially visualized lung emphysema. No consolidation. ABDOMEN: LIVER: Hepatomegaly with fatty infiltration. GALLBLADDER AND BILE DUCTS: Unremarkable. No calcified stones. No ductal dilation. PANCREAS: Unremarkable. No mass. No ductal dilation. SPLEEN: Unremarkable. No splenomegaly. ADRENALS: Unremarkable. No mass. KIDNEYS AND URETERS: 5 mm calculus of the right renal pelvis without obstruction. STOMACH AND BOWEL: Colonic diverticulosis without acute diverticulitis. No obstruction. PELVIS: APPENDIX: No findings to suggest acute appendicitis. BLADDER: Unremarkable. No mass. REPRODUCTIVE: Unremarkable as visualized. ABDOMEN and PELVIS: INTRAPERITONEAL SPACE: Unremarkable. No free air. No significant fluid collection. BONES/JOINTS: Degenerative disc disease throughout the lumbar spine. Degenerative facet arthropathy throughout the lumbar spine, most prominent in the lower lumbar spine. No acute fracture. No dislocation. SOFT TISSUES: Unremarkable. VASCULATURE: Indwelling IVC filter. Scattered calcified atherosclerotic disease of aorta. No abdominal aortic aneurysm. LYMPH NODES: Unremarkable. No enlarged lymph nodes. CT/Abdomen/Pelvis W IV Cont ONLY IMPRESSION: 1. Hepatomegaly with fatty infiltration. 2. 5 mm calculus of the right renal pelvis without obstruction. 3. Colonic diverticulosis without acute diverticulitis. 4. Degenerative changes lumbar spine as described. Reading Location: [facility] CC: Dr. Meir Zepeda MD; Dr. Jose Ramon Mckenzie MD ~ Tube Builder: Signed [facility] 09-02-2024 Evaluation note Diagnosis Onset Date Resolution Fatigue chronic September 02, 2024 10:44am Fatigue chronic October 02 11:25am Bilateral adrenal adenomas chronic October 06, 2024 10:58am Elevated serum immunoglobulin free light chain level chronic October 06 10:58am Fatty liver chronic October 06 025 10:58am Fatigue chronic November 06 11:28am Lumbar radiculopathy acute Apr l 2024 1:47pm Other intervertebral disc degeneration, lumbar region acute November 07, 2024 1:47pm Primary osteoarthritis of right hip acute November 07, 2024 1:47pm Spinal stenosis of lumbar region with neurogenic claudication acute November 072024 1:47pm Obesity acute November 21, 2024 9:59am Primary osteoarthritis of right hip acute November 21, 2024 9: 59am Spinal stenosis of lumbar region with neurogenic claudication acute November 21, 2024 9:59am Polyneuropathy chronic November 21, 025 9:59am [facility] Work Phone: 1(744) 419-101101-09-2025 Evaluation note* Diagnosis Onset Date Resolution Status Admit Date Peripheral vestibulopathy acute July 31, 2024 1:29pm Fatigue chronic July 31 025 1:29pm Restless legs syndrome chronic [facility] 2024 1:29pm Fatigue chronic September 02, 2024 10:44am Fatigue chronic October 02 11:25am Hematuria acute October 06 10:58am Bilateral adrenal adenomas chronic October 06, 2024 10:58am Elevated serum immunoglobuli n free light chain level chronic September 10:58am [facility] Work Phone: 1(848) 573-856501-09-2025 Evaluation note* Diagnosis Onset Date Resolution Status Admit Date Peripheral vestibulopathy acute July 31, 2024 1:29pm Fatigue chronic July 31, 2 025 1:29pm Restless legs syndrome chronic [facility] 2024 1:29pm Fatigue chronic September 02, 2024 10:44am Fatigue chronic October 02 11:25am Bilateral adrenal adenomas chronic October 06, 2024 10:58am Elevated serum immunoglobuli n free light chain level chronic September 10:58am Fatty liver chronic October 06 10:58am [facility] Work Phone: 1([phone]) 818-894301-09-2025 Evaluation note* Diagnosis Onset Date Resolution Status Admit Date Peripheral vestibulopathy acute July 31, 2024 1:29pm Fatigue chronic July 31 1:29pm Restless legs syndrome chronic [facility] 2024 1:29pm Fatigue chronic September 02, 2024 10:44am Fatigue chronic October 02 11:25am Bilateral adrenal adenomas chronic October 06, 2024 10:58am Elevated serum immunoglobuli n free light chain level chronic September 10:58am Fatty liver chronic October 06 10:58am Fatigue chronic November 06 11:28am Lumbar radiculopathy acute [facility] 2024 1:47pm Other intervertebral disc degeneration, lumbar region acute [facility] 2024 1:47pm Primary osteoarthritis of ri ght hip acute November 07, 2024 1:47pm Spinal stenosis of lumbar region with neurogenic claudication acute November 07, 2024 1:47pm [facility] Work Phone: 1(550) 327-339112-01-2023 Progress note Author Mari Veliz [facility] June 22, 2023 2:08pm Note Date/Time June 22, 2023 2 :08pm [facility] [address] [place] [phone] Progress Note - Wound Care 06/22/23 1402 MR#: [id number] Acct: [id number] Name: ART BLUE Rep #:[id number] : 1955 67 From: Mari Veliz DO PCP: Deysi Castro DO Status:REG R CR Location: History of Present Illness Date of Service: 06/22/23 Chief Complaint: right lateral chest wound History of Wound: Art is a 67 yo woman that presents to the wound center today for evaluation and treatment of a nonhealing wound of her right chest wallfrom a chest tube. She was hospitalized the end of February and discharged on Mar.24 from [facility] for pneumonia and pleural effusion which need surgical debridement. The wound has not healed since the chest tube was removed Mar.24. She has been applying Bacitracin. She states there is light drainage, no erythema or odor or fever or chills. Subjective Subjective Art is here today for follow up of nonhealing wounds at site of chest tube insertion. She has been tolerating Aquacel and foam dressing. The area is closedand there is no more drainage. She denies fever, chills, increased pain or erythema. Objective Data Objective Data Vital Signs: Vital Signs Temp Pulse Resp BP O2 Del Method 96.6 F L 83 16 137/61 H Room Air 06/22/23 10:06/22/23 10:06/22/23 10:06/22/23 10:06/22/23 10:09 Oxygen Delivery Method Room Air Weight: 106.594 kg Body Mass Index (BMI) 39.1 Physical Exam Const alert, oriented x3 and no apparent distress General Appearance: cooperative and comfortable HEENT normocephalic and head/scalp atraumatic Resp normal respiratory effort Effort and Inspection: able to speak in complete sentences Cardio regular rate and regular rhythm Skin Wounds: wounds noted Wound Narrative: as in clinical panel Psych mental status grossly normal, thought process normal, cooperative and affect normal Debridement Note Debridement Note Wound debrided: right chest wall Laterality: Right No debridement was completed: No debridement was completed today (wound healed) Post-Debridement Measurements and Additional Note: Post-Debridement Measurements/Treatment - Nurse 1 - General Ulcer Assessment Start: 06/22/23 10:08 Freq: Status: Active Protocol: WC.LOWEXT Activity Type Activity Date Activity User E-sign Co-sign Detail Recorded Client Recorded Date Recorded By Document 06/22/23 10:09 [facility] Desktop 06/22/23 10:17 [facility] 06/22/23 10:09 - Today's Visit Information Type of service Follow-up Visit (Physician/DYNAMICS AX CONSULTANT ) Arrival Mode Ambulatory Transfer Assistance None Patient Identification Verified (Name & Yes ) Patient Requires Transmission-Based No Precautions Height and Weight Body Mass Index (BMI) 39.1 BMI Classification Obese Vital Signs Temperature (97.8 F-99.1 F) 96.6 F L Temperature Source Temporal Pulse Rate (60-100) 83 Pulse Location Monitor Respiratory Rate (12-18) 16 Respiratory rate source Observation Oxygen Delivery Method Room Air Blood Pressure (90/60-120/80) 137/61 H Blood Pressure Mean (mm Hg) 86 Source Monitor Position Sitting Blood Pressure Location Left Arm History Since Last Visit- (Skip if this is Patient's initial visit) Have you changed medications since your No last visit? Any new allergies or adverse reactions No Had a fall/change in ADL's that may No increase risk of falls Signs or symptoms of abuse and/or No neglect since last visit Have you been in the hospital since your No last visit? Has dressing in place as prescribed Yes Has compression in place as prescribed N/A Has offloadiing in place as prescribed N/A Experienced any changes in pain level or No management Left Footwear Regular Shoe Right Footwear Regular Shoe Pain Scale: 0-10 Numeric Is Patient Pain Free? Yes WC - Nurse 1 - General Ulcer Measurement Start: 06/22/23 10:08 Freq: Status: Active Protocol: Activity Type Activity Date Activity User E-sign Co-sign Detail Recorded Client Recorded Date Recorded By Document 06/22/23 10:09 [facility] Desktop 06/22/23 10:17 [facility] 06/22/23 10:09 Wound Center Nurse 1 1. R chest (rib cage) -Combined with other wound No -Current Size (cm) - Length 0.1 -Current Size (cm) - Width 0.1 -Current Size (cm) - Depth 0.1 -Total Square Cm 0.01 -Photo Taken No -Epithelialization Large 67-100% -Tunneling No -Undermining/Tunneling No -Circular Undermining No -Exudate Amt None Present -Texture (Sybil-wound Skin Appearance) Assessed, Scarring -Moisture (Sybil-wound Skin Appearance) Assessed -Color (Sybil-wound Skin Appearance) Assessed -Temperature (Sybil-wound Skin No Abnormality Appearance) (Pt Warm) -Tenderness on Palpation (Sybil-wound No Skin Appearance) -Ulcer Cleansing Rinsed/ Irrigated with Saline -Foul Odor after Cleansing No -Anesthetic Used 5% Lidocaine Gel WC - Nurse 2 - General Ulcer CM Notes Start: 06/22/23 10:08 Freq: Status: Active Protocol: Activity Type Activity Date Activity User E-sign Co-sign Detail Recorded Client Recorded Date Recorded By Document 06/22/23 10:29 Desktop 06/22/23 10:30 GM 06/22/23 10:29 Wound Center Nurse 2 -Time 10:29 -Correct Patient Yes -Correct Side, Site, Position Yes -Correct Procedure Yes -Procedure Performed Yes -Type of Procedure Debridement -Clinical Debridement Epidermis / Dermis -Tissue Removed Epidermis -Post Debridement (cm) - Length 0.1 -Post Debridement (cm) - Width 0.1 -Post Debridement (cm) - Depth 0.1 -Total Square (Post) (cm) 0.01 -Area of Debridement (cm) - Length 0.1 -Area of Debridement (cm) - Width 0.1 -Total Square (Area) (cm) 0.01 -Tunneling No -Undermining/Tunneling No -Circular Undermining No -Wound/Ulcer Outcome Healed- Epithelialized -Ulcer Cleansing Rinsed/ Irrigated with Saline -Foul Odor after Cleansing No -Bioengineered Tissue No -Debridement - Open, 1st 20sq cm Yes Pain Scale: 0-10 Numeric Is Patient Pain Free? Yes - Nurse 3 - General Ulcer D/C NN Start: 06/22/23 10:08 Freq: Status: Active Protocol: Activity Type Activity Date Activity User E-sign Co-sign Detail Recorded Client Recorded Date Recorded By Document 06/22/23 10:31 Desktop 06/22/23 10:34 06/22/23 10:31 Wound Care Center Nurse 3 1. R chest (rib cage) -Ulcer Cleansing Not Cleansed -Foul Odor after Cleansing No -Negative Pressure Wound Therapy N/A -Primary Dressing Applied Mepilex Border -Mepilex Border 1 Pain Scale: 0-10 Numeric Is Patient Pain Free? Yes WC - Visit Discharge Discharge Condition Stable Ambulatory Status Ambulatory Transportation Private Auto Medication Reconcilliation completed & Yes provided to patient/care provider Clinical Summary of Care Provided Yes Assessment/Plan Assessment/Plan (1) Open wound of right chest wall: CODE(S): S21.101A - Unspecified open wound of right front wall of thorax without penetration into thoracic cavity, initial encounter QUALIFIERS: Encounter type: subsequent encounter Qualified Code(s): S21.101D - Unspecified open wound of right front wall of thorax withoutpenetration into thoracic cavity, subsequent encounter (2) Nonhealing nonsurgical wound with fat layer exposed: CODE(S): T14.8XXA - Other injury of unspecified body region, initial encounter (3) Obesity: CODE(S): E66.9 - Obesity, unspecified QUALIFIERS: Obesity type: unspecified obesity type Obesity classification: adult class 2 (BMI 35 - 39.9) Serious obesity comorbidity presence: without serious comorbidity Body mass index: BMI 39.0-39.9 QualifiedCode(s): E66.9 - Obesity, unspecified; Z68.39 - Body mass index [BMI] 39.0-39.9, adult (4) COPD (chronic obstructive pulmonary disease): CODE(S): J44.9 - Chronic obstructive pulmonary disease, unspecified QUALIFIERS: COPD type: unspecified COPD Qualified Code(s): J44.9 - Chronic obstructive pulmonary disease, unspecified (5) Ulcer of chest wall with fat layer exposed: CODE(S): L98.492 - Non-pressure chronic ulcer of skin of other sites with fat layer exposed PLAN: Plan Evaluation performed today in clinic as annotated above. It is possible that the area of the wound has an underlying sebaceous cyst or hidradenitis that has complicated her healing and it may return. We discussed this possibility and that surgical excision may be needed in the future if she continues to have problems in this area. At home wound-care instructions: Wound is healed. Pad and protect for the next week. Off-loading: The patient was instructed to avoid pressure and friction on the affected areas. Reposition every 2 hours at minimum. Avoid prolonged standing and/or dangling of legs. When seated, feet should be elevated at chest level. Frequent ambulation is encouraged. Diet: Patient encouraged to increase protein intake while taking caution to avoid high carbohydrate and/or sugar intake. Labs/cultures/imaging: Follow-up: She is discharged from treatment today and would be happy to see her in the future if needed. Note: [employer] speech recognition home visits nurse software was used to create portions of this document. Sound-alike and misspelled words, as well as other home visits nurse errors may be contained in the documentation. 06/22/23 1408 <Electronically signed by Mari Veliz DO> Cosigner Signature (if applicable): CC: ~ Signed [facility] Work Phone: 1(156) 864-742311-17-2023 Progress note Author Mari Veliz [facility] June 08, 2023 3:20pm Note Date/Time June 08, 2023 3:15pm [facility] [address] [place] [address] Progress Note - Wound Care 06/08/23 1513 MR#: [id number] Acct: [id number] Name: ART BLUE Rep #:[id number] : 1955 67 From: Mari Veliz DO PCP: Deysi Castro DO Status:REG R CR Location: History of Present Illness Date of Service: 06/08/23 Chief Complaint: right lateral chest wound History of Wound: Art is a 67 yo woman that presents to the wound center today for evaluation and treatment of a nonhealing wound of her right chest wallfrom a chest tube. She was hospitalized the end of February and discharged on Mar.24 from [facility] for pneumonia and pleural effusion which need surgical debridement. The wound has not healed since the chest tube was removed Mar.24. She has been applying Bacitracin. She states there is light drainage, no erythema or odor or fever or chills. Subjective Subjective Art is here today for follow up of nonhealing wounds at site of chest tube insertion. She has been tolerating Aquacel and foam dressing. The area is still open and draining moderately. Wound culture was positive for Prevotella anaerobeand Staph epidermidis. She was started on Clindamycin and she tolerated this well. She reports increased pain this week and drainage. She denies fever, chills, increased pain or erythema. Objective Data Objective Data Vital Signs: Vital Signs Temp Pulse Resp BP O2 Del Method 97.1 F L 76 20 H 153/72 H Room Air 06/08/23 08:29 06/08/23 08:29 06/08/23 08:29 06/08/23 08:29 05/25/23 09:18 Oxygen Delivery Method Room Air Weight: 106.594 kg Body Mass Index (BMI) 39.1 Physical Exam Const alert, oriented x3 and no apparent distress General Appearance: cooperative and comfortable HEENT normocephalic and head/scalp atraumatic Resp normal respiratory effort Effort and Inspection: able to speak in complete sentences Cardio regular rate and regular rhythm Skin Wounds: wounds noted Wound Narrative: as in clinical panel Psych mental status grossly normal, thought process normal, cooperative and affect normal Debridement Note Debridement Note Wound debrided: right chest wall Laterality: Right Type of Debridement: Excisional debridement Anesthesia Used: 5% Lidocaine Gel, Cetacaine and - (6 ml lidocaine 1% without epi) Depth: Down to and including healthy tissue and in the subcutaneous layer Percentage of wound debrided: 100 Instrument Used: 3mm curette, #15 blade and Forceps Tissue Removed: yellow slough, devitalized tissue, overlying skin above undermining Severity: Fat Layer Exposed Amount of bleeding with debridement: Mild Bleeding Controlled with: Compression and gauze Patient tolerated procedure: Patient tolerated procedure well Post-Debridement Measurements and Additional Note: Post-Debridement Measurements/Treatment - Nurse 1 - General Ulcer Assessment Start: 05/25/23 09:18 Freq: Status: Active Protocol: DARRYL Activity Type Activity Date Activity User E-sign Co-sign Detail Recorded Client Recorded Date Recorded By Document 05/25/23 09:18 [facility] Desktop 05/25/23 09:27 BMF Document 06/01/23 10:02 RB Desktop 06/01/23 10:03 RB Document 06/08/23 08:29 DL Desktop 06/08/23 08:35 DL 05/25/23 06/01/23 06/08/23 09:18 10:02 08:29 - Today's Visit Information Type of service Follow-up Visit Follow-up Visit Follow-up Visit (Physician/DYNAMICS AX CONSULTANT (Physician/DYNAMICS AX CONSULTANT (Physician/DYNAMICS AX CONSULTANT ) ) ) Arrival Mode Ambulatory Ambulatory Ambulatory Transfer Assistance None None None Patient Identification Verified (Name & Yes Yes Yes ) Patient Requires Transmission-Based No No No Precautions Height and Weight Body Mass Index (BMI) 39.1 39.1 39.1 BMI Classification Obese Obese Obese Vital Signs Temperature (97.8 F-99.1 F) 96.6 F L 96.4 F L 97.1 F L Temperature Source Temporal Temporal Temporal Pulse Rate (60-100) 83 87 76 Pulse Location Monitor Monitor Monitor Respiratory Rate (12-18) 16 18 20 H Respiratory rate source Observation Observation Observation Oxygen Delivery Method Room Air Blood Pressure (90/60-120/80) 151/68 H 140/60 H 153/72 H Blood Pressure Mean (mm Hg) 95 86 99 Source Monitor Monitor Monitor Position Sitting Semi-Fowlers Blood Pressure Location Right Arm Left Arm History Since Last Visit- (Skip if this is Patient's initial visit) Have you changed medications since your No No No last visit? Any new allergies or adverse reactions No No No Had a fall/change in ADL's that may No No No increase risk of falls Signs or symptoms of abuse and/or No No No neglect since last visit Have you been in the hospital since your No No No last visit? Has dressing in place as prescribed Yes Yes Yes Has compression in place as prescribed N/A No N/A Has offloadiing in place as prescribed N/A No N/A Experienced any changes in pain level or No No No management Left Footwear Regular Shoe Right Footwear Regular Shoe Pain Scale: 0-10 Numeric Is Patient Pain Free? Yes Yes Yes WC - Nurse 1 - General Ulcer Measurement Start: 05/25/23 09:18 Freq: Status: Active Protocol: Activity Type Activity Date Activity User E-sign Co-sign Detail Recorded Client Recorded Date Recorded By Document 05/25/23 09:18 [facility] Desktop 05/25/23 09:27 BM Document 06/01/23 10:02 RB Desktop 06/01/23 10:03 RB Document 06/08/23 08:29 DL Desktop 06/08/23 08:35 DL 05/25/23 06/01/23 06/08/23 09:18 10:02 08:29 Wound Center Nurse 1 1. R chest (rib cage) -Combined with other wound No No -Current Size (cm) - Length 0.6 0.5 0.7 -Current Size (cm) - Width 1 0.6 1.5 -Current Size (cm) - Depth 0.1 0.1 0.1 -Total Square Cm 0.6 0.30 1.05 -Photo Taken No Yes -Tunneling No No -Undermining/Tunneling No No -Circular Undermining No No -Exudate Amt Medium Medium Small -Exudate Type Serosanguineous Serosanguineous -Wound Margin Distinct, Distinct, Distinct, Outline Outline Outline Attached Attached Attached -Granulation Amt Large (67-100%) Medium (34-66%) Large (67-100%) -Granulation Quality Red Wanchese Wanchese -Slough/Fibrin No Yes -Necrosis Amt None Present (0 Medium (34-66%) None Present (0 %) %) -Necrotic Tissue Type Adherent Slough -Structure Exposed N/A N/A -Texture (Sybil-wound Skin Appearance) Assessed, Assessed Scarring Scarring -Moisture (Sybil-wound Skin Appearance) Assessed Assessed No Abnormality -Color (Sybil-wound Skin Appearance) Assessed Assessed Erythema -Temperature (Sybil-wound Skin No Abnormality No Abnormality No Abnormality Appearance) (Pt Warm) (Pt Warm) (Pt Warm) -Tenderness on Palpation (Sybil-wound No No Yes Skin Appearance) -Ulcer Cleansing Rinsed/ Wound Cleanser Rinsed/ Irrigated with Irrigated with Saline Saline -Foul Odor after Cleansing No No No -Anesthetic Used 5% Lidocaine 5% Lidocaine 5% Lidocaine Gel Gel Gel WC - Nurse 2 - General Ulcer CM Notes Start: 05/25/23 09:18 Freq: Status: Active Protocol: Activity Type Activity Date Activity User E-sign Co-sign Detail Recorded Client Recorded Date Recorded By Document 05/25/23 10:00 GM Desktop 05/25/23 10:02 GM Document 06/01/23 10:06 GM Desktop 06/01/23 10:13 GM Edit Result 06/01/23 10:06 GM (1) [id number] 06/01/23 10:32 GM Document 06/08/23 09:42 GM Desktop 06/08/23 09:48 GM (1) 1. R chest (rib cage) - Post Debridement (cm) - Length 0.7 => 1.0 - Post Debridement (cm) - Width 0.7 => 1.0 - Total Square (Post) (cm) 0.49 => 1.00 - Area of Debridement (cm) - Length 0.7 => 1.0 - Area of Debridement (cm) - Width 0.7 => 1.0 - Total Square (Area) (cm) 0.49 => 1.00 05/25/23 06/01/23 06/08/23 10:00 10:06 09:42 Wound Center Nurse 2 1. R chest (rib cage) -Time 10:00 10:07 09:30 -Correct Patient Yes Yes Yes -Correct Side, Site, Position Yes Yes Yes -Correct Procedure Yes Yes Yes -Procedure Performed No Yes Yes -Type of Procedure Debridement Debridement Debridement -Clinical Debridement Subcutaneous Subcutaneous -Tissue Removed Subcutaneous Subcutaneous -Post Debridement (cm) - Length 0.6 1.0 1.4 -Post Debridement (cm) - Width 1.0 1.0 1.8 -Post Debridement (cm) - Depth 0.1 0.1 0.3 -Total Square (Post) (cm) 0.60 1.00 2.52 -Area of Debridement (cm) - Length 0.6 1.0 1.4 -Area of Debridement (cm) - Width 1.0 1.0 1.8 -Total Square (Area) (cm) 0.60 1.00 2.52 -Tunneling No No -Undermining/Tunneling No No -Circular Undermining No No -Wound/Ulcer Outcome Not Healed Not Healed Not Healed -Ulcer Cleansing Rinsed/ Rinsed/ Rinsed/ Irrigated with Irrigated with Irrigated with Saline Saline Saline -Foul Odor after Cleansing No No No -Bioengineered Tissue No -Injectable Lidocaine w/ Epi (mls) 6 -Bleeding Controlled with Pressure Pressure -Treatment Response Procedure Procedure Tolerated Well Tolerated Well -Debridement - Subq, 1st 20sq cm Yes Yes Pain Scale: 0-10 Numeric Is Patient Pain Free? Yes Yes Yes - Nurse 3 - General Ulcer D/C NN Start: 05/25/23 09:18 Freq: Status: Active Protocol: Activity Type Activity Date Activity User E-sign Co-sign Detail Recorded Client Recorded Date Recorded By Document 05/25/23 10:14 Desktop 05/25/23 10:15 RB Document 06/01/23 10:25 NM Desktop 06/01/23 10:26 NM Document 06/08/23 09:56 Desktop 06/08/23 09:58 RB 05/25/23 06/01/23 06/08/23 10:14 10:25 09:56 Wound Care Center Nurse 3 1. R chest (rib cage) -Ulcer Cleansing Rinsed/ Rinsed/ Irrigated with Irrigated with Saline Saline -Primary Dressing Applied Aquacel Extra, Mepilex Border Mepilex Border -Other Dressing aquacel extra bordered foam dressing -Aquacel Extra 1 -Mepilex Border 1 1 Treatment Response Procedure Procedure Tolerated Well Tolerated Well Pain Scale: 0-10 Numeric Is Patient Pain Free? Yes Yes Yes Teaching: Wound Center Dressing Your Wound -Person Taught Patient -Teaching Method Discussion -Response to teaching Verbalize understanding WC - Visit Discharge Discharge Condition Stable Stable Stable Ambulatory Status Ambulatory Ambulatory Ambulatory Transportation Private Auto Private Auto Private Auto Medication Reconcilliation completed & No No No provided to patient/care provider Clinical Summary of Care Provided Yes Yes Yes Assessment/Plan Assessment/Plan (1) Open wound of right chest wall: CODE(S): S21.101A - Unspecified open wound of right front wall of thorax without penetration into thoracic cavity, initial encounter QUALIFIERS: Encounter type: subsequent encounter Qualified Code(s): S21.101D - Unspecified open wound of right front wall of thorax withoutpenetration into thoracic cavity, subsequent encounter (2) Nonhealing nonsurgical wound with fat layer exposed: CODE(S): T14.8XXA - Other injury of unspecified body region, initial encounter (3) Obesity: CODE(S): E66.9 - Obesity, unspecified QUALIFIERS: Obesity type: unspecified obesity type Obesity classification: adult class 2 (BMI 35 - 39.9) Serious obesity comorbidity presence: without serious comorbidity Body mass index: BMI 39.0-39.9 QualifiedCode(s): E66.9 - Obesity, unspecified; Z68.39 - Body mass index [BMI] 39.0-39.9, adult (4) COPD (chronic obstructive pulmonary disease): CODE(S): J44.9 - Chronic obstructive pulmonary disease, unspecified QUALIFIERS: COPD type: unspecified COPD Qualified Code(s): J44.9 - Chronic obstructive pulmonary disease, unspecified (5) Ulcer of chest wall with fat layer exposed: CODE(S): L98.492 - Non-pressure chronic ulcer of skin of other sites with fat layer exposed PLAN: Plan Debridement performed today in clinic as annotated above. At home wound-care instructions: Apply Aquacel extra and foam dressing every other day. Keep dressing clean and dry. Due to delayed healing with traditional wound care, she would benefit from application of advanced wound care product such as Epifix to promote and expedite healing of her nonhealing surgical wound. We will apply for approval to use this with her insurance. Epifix was not started today due to increased drainage and pain and suspicion of infection. Larger excisional debridement of the ulcer was performed to expose the wound bed and clear out slough, a old blood that was trapped. Patient tolerated this well. Off-loading: The patient was instructed to avoid pressure and friction on the affected areas. Reposition every 2 hours at minimum. Avoid prolonged standing and/or dangling of legs. When seated, feet should be elevated at chest level. Frequent ambulation is encouraged. Diet: Patient encouraged to increase protein intake while taking caution to avoid high carbohydrate and/or sugar intake. Labs/cultures/imaging: Wound culture taken again today. Will treat based on results. Follow-up: Return in 2 weeks for wound care follow up. Return sooner or report to the emergency room should symptoms worsen, or new symptoms arise. Note: [employer] speech recognition home visits nurse software was used to create portions of this document. Sound-alike and misspelled words, as well as other home visits nurse errors may be contained in the documentation. 06/08/23 1520 <Electronically signed by Mari Veliz DO> Cosigner Signature (if applicable): CC: ~ Signed [facility] Work Phone: 1(432) 475-873011-10-2023 Progress note Author Mari Veliz [facility] June 01, 2023 12:17pm Note Date/Time June 01, 2023 10:29am [facility] [address] [place] [id number] Progress Note - Wound Care 06/01/23 1026 MR#: [id number] Acct: [id number] Name: ART BLUE Rep #:[id number] 3 : 1955 67 From: Mari Veliz DO PCP: Deysi Castro DO Status:REG R CR Location: History of Present Illness Date of Service: 06/01/23 Chief Complaint: right lateral chest wound History of Wound: Art is a 67 yo woman that presents to the wound center today for evaluation and treatment of a nonhealing wound of her right chest wallfrom a chest tube. She was hospitalized the end of February and discharged on Mar.24 from [facility] for pneumonia and pleural effusion which need surgical debridement. The wound has not healed since the chest tube was removed Mar.24. She has been applying Bacitracin. She states there is light drainage, no erythema or odor or fever or chills. Subjective Subjective Art is here today for follow up of nonhealing wounds at site of chest tube insertion. She has been tolerating Aquacel and foam dressing. The area is still open and draining moderately. Wound culture was positive for Prevotella anaerobeand Staph epidermidis. She was started on Clindamycin and is tolerating this well. She denies fever, chills, increased pain or erythema. Objective Data Objective Data Vital Signs: Vital Signs Temp Pulse Resp BP O2 Del Method 96.4 F L 87 18 140/60 H Room Air 06/01/23 10:02 06/01/23 10:02 06/01/23 10:02 06/01/23 10:02 05/25/23 09:18 Oxygen Delivery Method Room Air Weight: 106.594 kg Body Mass Index (BMI) 39.1 Physical Exam Const alert, oriented x3 and no apparent distress General Appearance: cooperative and comfortable HEENT normocephalic and head/scalp atraumatic Resp normal respiratory effort Effort and Inspection: able to speak in complete sentences Cardio regular rate and regular rhythm Skin Wounds: wounds noted Wound Narrative: as in clinical panel Psych mental status grossly normal, thought process normal, cooperative and affect normal Debridement Note Debridement Note Post-Debridement Measurements and Additional Note: Post-Debridement Measurements/Treatment - Nurse 1 - General Ulcer Assessment Start: 05/25/23 09:18 Freq: Status: Active Protocol: [email or web address] Activity Type Activity Date Activity User E-sign Co-sign Detail Recorded Client Recorded Date Recorded By Document 05/25/23 09:18 [facility] Desktop 05/25/23 09:27 [facility] Document 06/01/23 10:02 RB Desktop 06/01/23 10:03 05/25/23 06/01/23 09:18 10:02 - Today's Visit Information Type of service Follow-up Visit Follow-up Visit (Physician/DYNAMICS AX CONSULTANT (Physician/DYNAMICS AX CONSULTANT ) ) Arrival Mode Ambulatory Ambulatory Transfer Assistance None None Patient Identification Verified (Name & Yes Yes ) Patient Requires Transmission-Based No No Precautions Height and Weight Body Mass Index (BMI) 39.1 39.1 BMI Classification Obese Obese Vital Signs Temperature (97.8 F-99.1 F) 96.6 F L 96.4 F L Temperature Source Temporal Temporal Pulse Rate (60-100) 83 87 Pulse Location Monitor Monitor Respiratory Rate (12-18) 16 18 Respiratory rate source Observation Observation Oxygen Delivery Method Room Air Blood Pressure (90/60-120/80) 151/68 H 140/60 H Blood Pressure Mean (mm Hg) 95 86 Source Monitor Monitor Position Sitting Semi-Fowlers Blood Pressure Location Right Arm Left Arm History Since Last Visit- (Skip if this is Patient's initial visit) Have you changed medications since your No No last visit? Any new allergies or adverse reactions No No Had a fall/change in ADL's that may No No increase risk of falls Signs or symptoms of abuse and/or No No neglect since last visit Have you been in the hospital since your No No last visit? Has dressing in place as prescribed Yes Yes Has compression in place as prescribed N/A No Has offloadiing in place as prescribed N/A No Experienced any changes in pain level or No No management Left Footwear Regular Shoe Right Footwear Regular Shoe Pain Scale: 0-10 Numeric Is Patient Pain Free? Yes Yes WC - Nurse 1 - General Ulcer Measurement Start: 05/25/23 09:18 Freq: Status: Active Protocol: Activity Type Activity Date Activity User E-sign Co-sign Detail Recorded Client Recorded Date Recorded By Document 05/25/23 09:18 [facility] Desktop 05/25/23 09:27 [facility] Document 06/01/23 10:02 RB Desktop 06/01/23 10:03 RB 05/25/23 06/01/23 09:18 10:02 Wound Center Nurse 1 1. R chest (rib cage) -Combined with other wound No No -Current Size (cm) - Length 0.6 0.5 -Current Size (cm) - Width 1 0.6 -Current Size (cm) - Depth 0.1 0.1 -Total Square Cm 0.6 0.30 -Photo Taken No Yes -Tunneling No No -Undermining/Tunneling No No -Circular Undermining No No -Exudate Amt Medium Medium -Exudate Type Serosanguineous Serosanguineous -Wound Margin Distinct, Distinct, Outline Outline Attached Attached -Granulation Amt Large (67-100%) Medium (34-66%) -Granulation Quality [place] -Slough/Fibrin No Yes -Necrosis Amt None Present (0 Medium (34-66%) %) -Necrotic Tissue Type Adherent Slough -Structure Exposed N/A -Texture (Sybil-wound Skin Appearance) Assessed, Assessed Scarring -Moisture (Sybil-wound Skin Appearance) Assessed Assessed -Color (Sybil-wound Skin Appearance) Assessed Assessed -Temperature (Sybil-wound Skin No Abnormality No Abnormality Appearance) (Pt Warm) (Pt Warm) -Tenderness on Palpation (Sybil-wound No No Skin Appearance) -Ulcer Cleansing Rinsed/ Wound Cleanser Irrigated with Saline -Foul Odor after Cleansing No No -Anesthetic Used 5% Lidocaine 5% Lidocaine Gel Gel CHERYL - Nurse 2 - General Ulcer CM Notes Start: 05/25/23 09:18 Freq: Status: Active Protocol: Activity Type Activity Date Activity User E-sign Co-sign Detail Recorded Client Recorded Date Recorded By Document 05/25/23 10:00 GM Desktop 05/25/23 10:02 GM Document 06/01/23 10:06 GM Desktop 06/01/23 10:13 GM 05/25/23 06/01/23 10:00 10:06 Wound Center Nurse 2 1. R chest (rib cage) -Time 10:00 10:07 -Correct Patient Yes Yes -Correct Side, Site, Position Yes Yes -Correct Procedure Yes Yes -Procedure Performed No Yes -Type of Procedure Debridement Debridement -Clinical Debridement Subcutaneous -Tissue Removed Subcutaneous -Post Debridement (cm) - Length 0.6 0.7 -Post Debridement (cm) - Width 1.0 0.7 -Post Debridement (cm) - Depth 0.1 0.1 -Total Square (Post) (cm) 0.60 0.49 -Area of Debridement (cm) - Length 0.6 0.7 -Area of Debridement (cm) - Width 1.0 0.7 -Total Square (Area) (cm) 0.60 0.49 -Tunneling No -Undermining/Tunneling No -Circular Undermining No -Wound/Ulcer Outcome Not Healed Not Healed -Ulcer Cleansing Rinsed/ Rinsed/ Irrigated with Irrigated with Saline Saline -Foul Odor after Cleansing No No -Bleeding Controlled with Pressure -Treatment Response Procedure Tolerated Well -Debridement - Subq, 1st 20sq cm Yes Pain Scale: 0-10 Numeric Is Patient Pain Free? Yes Yes CHERYL - Nurse 3 - General Ulcer D/C NN Start: 05/25/23 09:18 Freq: Status: Active Protocol: Activity Type Activity Date Activity User E-sign Co-sign Detail Recorded Client Recorded Date Recorded By Document 05/25/23 10:14 RB Desktop 05/25/23 10:15 RB 05/25/23 10:14 Wound Care Center Nurse 3 1. R chest (rib cage) -Ulcer Cleansing Rinsed/ Irrigated with Saline -Primary Dressing Applied Aquacel Extra, Mepilex Border -Aquacel Extra 1 -Mepilex Border 1 Treatment Response Procedure Tolerated Well Pain Scale: 0-10 Numeric Is Patient Pain Free? Yes WC - Visit Discharge Discharge Condition Stable Ambulatory Status Ambulatory Transportation Private Auto Medication Reconcilliation completed & No provided to patient/care provider Clinical Summary of Care Provided Yes Assessment/Plan Assessment/Plan (1) Open wound of right chest wall: CODE(S): S21.101A - Unspecified open wound of right front wall of thorax without penetration into thoracic cavity, initial encounter QUALIFIERS: Encounter type: subsequent encounter Qualified Code(s): S21.101D - Unspecified open wound of right front wall of thorax withoutpenetration into thoracic cavity, subsequent encounter (2) Nonhealing nonsurgical wound with fat layer exposed: CODE(S): T14.8XXA - Other injury of unspecified body region, initial encounter (3) Obesity: CODE(S): E66.9 - Obesity, unspecified QUALIFIERS: Obesity type: unspecified obesity type Obesity classification: adult class 2 (BMI 35 - 39.9) Serious obesity comorbidity presence: without serious comorbidity Body mass index: BMI 39.0-39.9 QualifiedCode(s): E66.9 - Obesity, unspecified; Z68.39 - Body mass index [BMI] 39.0-39.9, adult (4) COPD (chronic obstructive pulmonary disease): CODE(S): J44.9 - Chronic obstructive pulmonary disease, unspecified QUALIFIERS: COPD type: unspecified COPD Qualified Code(s): J44.9 - Chronic obstructive pulmonary disease, unspecified (5) Ulcer of chest wall with fat layer exposed: CODE(S): L98.492 - Non-pressure chronic ulcer of skin of other sites with fat layer exposed PLAN: Plan Debridement performed today in clinic as annotated above. At home wound-care instructions: Apply Aquacel extra and foam dressing every other day. Keep dressing clean and dry. Due to delayed healing with traditional wound care, she would benefit from application of advanced wound care product such as Epifix to promote and expedite healing of her nonhealing surgical wound. We will apply for approval to use this with her insurance. Off-loading: The patient was instructed to avoid pressure and friction on the affected areas. Reposition every 2 hours at minimum. Avoid prolonged standing and/or dangling of legs. When seated, feet should be elevated at chest level. Frequent ambulation is encouraged. Diet: Patient encouraged to increase protein intake while taking caution to avoid high carbohydrate and/or sugar intake. Labs/cultures/imaging: She will complete Clindamycin today. Follow-up: Return in 1 week for wound care follow up. Return sooner or report to the emergency room should symptoms worsen, or new symptoms arise. Note: [employer] speech recognition home visits nurse software was used to create portions of this document. Sound-alike and misspelled words, as well as other home visits nurse errors may be contained in the documentation. 06/01/23 1217 <Electronically signed by Mari Veliz DO> Cosigner Signature (if applicable): CC: ~ Signed [facility] Work Phone: 1(974) 465-781511-03-2023 Progress note [facility] May 25, 2023 2:25pm Note Date/Time May 25, 2023 2 :25pm [facility] [address] [place] [id number] Progress Note - Wound Care 05/25/23 1420 MR#: [id number] Acct: [id number] Name: ART BLUE Rep #:[id number] 1 : 1955 67 From: Mari Veliz DO PCP: Deysi Castro DO Status:REG R CR Location: History of Present Illness Date of Service: 05/25/23 Chief Complaint: right lateral chest wound History of Wound: Art is a 67 yo woman that presents to the wound center today for evaluation and treatment of a nonhealing wound of her right chest wallfrom a chest tube. She was hospitalized the end of February and discharged on Mar.24 from [facility] for pneumonia and pleural effusion which need surgical debridement. The wound has not healed since the chest tube was removed Mar.24. She has been applying Bacitracin. She states there is light drainage, no erythema or odor or fever or chills. Subjective Subjective Art is here today for follow up of nonhealing wounds at site of chest tube insertion. She has been tolerating Aquacel and foam dressing. The area is still open and draining moderately. Wound culture was positive for Prevotella anaerobeand Staph epidermidis. She was started on Clindamycin and is tolerating this well. She denies fever, chills, increased pain or erythema. Objective Data Objective Data Vital Signs: Vital Signs Temp Pulse Resp BP O2 Del Method 96.6 F L 83 16 151/68 H Room Air 05/25/23 09:18 05/25/23 09:18 05/25/23 09:18 05/25/23 09:18 05/25/23 09:18 Oxygen Delivery Method Room Air Weight: 106.594 kg Body Mass Index (BMI) 39.1 Physical Exam Const alert, oriented x3 and no apparent distress General Appearance: cooperative and comfortable HEENT normocephalic and head/scalp atraumatic Resp normal respiratory effort Effort and Inspection: able to speak in complete sentences Cardio regular rate and regular rhythm Skin Wounds: wounds noted Wound Narrative: as in clinical panel Psych mental status grossly normal, thought process normal, cooperative and affect normal Debridement Note Debridement Note Wound debrided: right chest wall Laterality: Right Type of Debridement: Excisional debridement Anesthesia Used: 4% Lidocaine Solution and 5% Lidocaine Gel Depth: Down to and including healthy tissue and in the subcutaneous layer Percentage of wound debrided: 100 Instrument Used: 3mm curette Tissue Removed: yellow slough, devitalized tissue Severity: Fat Layer Exposed Amount of bleeding with debridement: Mild Bleeding Controlled with: Compression and gauze Patient tolerated procedure: Patient tolerated procedure well Post-Debridement Measurements and Additional Note: Post-Debridement Measurements/Treatment - Nurse 1 - General Ulcer Assessment Start: 05/25/23 09:18 Freq: Status: Active Protocol: DARRYL Activity Type Activity Date Activity User E-sign Co-sign Detail Recorded Client Recorded Date Recorded By Document 05/25/23 09:18 [facility] Desktop 05/25/23 09:27 [facility] 05/25/23 09:18 - Today's Visit Information Type of service Follow-up Visit (Physician/DYNAMICS AX CONSULTANT ) Arrival Mode Ambulatory Transfer Assistance None Patient Identification Verified (Name & Yes ) Patient Requires Transmission-Based No Precautions Height and Weight Body Mass Index (BMI) 39.1 BMI Classification Obese Vital Signs Temperature (97.8 F-99.1 F) 96.6 F L Temperature Source Temporal Pulse Rate (60-100) 83 Pulse Location Monitor Respiratory Rate (12-18) 16 Respiratory rate source Observation Oxygen Delivery Method Room Air Blood Pressure (90/60-120/80) 151/68 H Blood Pressure Mean (mm Hg) 95 Source Monitor Position Sitting Blood Pressure Location Right Arm History Since Last Visit- (Skip if this is Patient's initial visit) Have you changed medications since your No last visit? Any new allergies or adverse reactions No Had a fall/change in ADL's that may No increase risk of falls Signs or symptoms of abuse and/or No neglect since last visit Have you been in the hospital since your No last visit? Has dressing in place as prescribed Yes Has compression in place as prescribed N/A Has offloadiing in place as prescribed N/A Experienced any changes in pain level or No management Left Footwear Regular Shoe Right Footwear Regular Shoe Pain Scale: 0-10 Numeric Is Patient Pain Free? Yes WC - Nurse 1 - General Ulcer Measurement Start: 05/25/23 09:18 Freq: Status: Active Protocol: Activity Type Activity Date Activity User E-sign Co-sign Detail Recorded Client Recorded Date Recorded By Document 05/25/23 09:18 [facility] Desktop 05/25/23 09:27 [facility] 05/25/23 09:18 Wound Center Nurse 1 1. R chest (rib cage) -Combined with other wound No -Current Size (cm) - Length 0.6 -Current Size (cm) - Width 1 -Current Size (cm) - Depth 0.1 -Total Square Cm 0.6 -Photo Taken No -Tunneling No -Undermining/Tunneling No -Circular Undermining No -Exudate Amt Medium -Exudate Type Serosanguineous -Wound Margin Distinct, Outline Attached -Granulation Amt Large (67-100%) -Granulation Quality Red -Slough/Fibrin No -Necrosis Amt None Present (0 %) -Texture (Sybil-wound Skin Appearance) Assessed, Scarring -Moisture (Sybil-wound Skin Appearance) Assessed -Color (Sybil-wound Skin Appearance) Assessed -Temperature (Sybil-wound Skin No Abnormality Appearance) (Pt Warm) -Tenderness on Palpation (Sybil-wound No Skin Appearance) -Ulcer Cleansing Rinsed/ Irrigated with Saline -Foul Odor after Cleansing No -Anesthetic Used 5% Lidocaine Gel - Nurse 2 - General Ulcer CM Notes Start: 05/25/23 09:18 Freq: Status: Active Protocol: Activity Type Activity Date Activity User E-sign Co-sign Detail Recorded Client Recorded Date Recorded By Document 05/25/23 10:00 Desktop 05/25/23 10:02 05/25/23 10:00 Wound Center Nurse 2 -Time 10:00 -Correct Patient Yes -Correct Side, Site, Position Yes -Correct Procedure Yes -Procedure Performed No -Type of Procedure Debridement -Post Debridement (cm) - Length 0.6 -Post Debridement (cm) - Width 1.0 -Post Debridement (cm) - Depth 0.1 -Total Square (Post) (cm) 0.60 -Area of Debridement (cm) - Length 0.6 -Area of Debridement (cm) - Width 1.0 -Total Square (Area) (cm) 0.60 -Wound/Ulcer Outcome Not Healed -Ulcer Cleansing Rinsed/ Irrigated with Saline -Foul Odor after Cleansing No Pain Scale: 0-10 Numeric Is Patient Pain Free? Yes - Nurse 3 - General Ulcer D/C NN Start: 05/25/23 09:18 Freq: Status: Active Protocol: Activity Type Activity Date Activity User E-sign Co-sign Detail Recorded Client Recorded Date Recorded By Document 05/25/23 10:14 Desktop 05/25/23 10:15 05/25/23 10:14 Wound Care Center Nurse 3 1. R chest (rib cage) -Ulcer Cleansing Rinsed/ Irrigated with Saline -Primary Dressing Applied Aquacel Extra, Mepilex Border -Aquacel Extra 1 -Mepilex Border 1 Treatment Response Procedure Tolerated Well Pain Scale: 0-10 Numeric Is Patient Pain Free? Yes - Visit Discharge Discharge Condition Stable Ambulatory Status Ambulatory Transportation Private Auto Medication Reconcilliation completed & No provided to patient/care provider Clinical Summary of Care Provided Yes Assessment/Plan Assessment/Plan (1) Open wound of right chest wall: CODE(S): S21.101A - Unspecified open wound of right front wall of thorax without penetration into thoracic cavity, initial encounter QUALIFIERS: Encounter type: subsequent encounter Qualified Code(s): S21.101D - Unspecified open wound of right front wall of thorax withoutpenetration into thoracic cavity, subsequent encounter (2) Nonhealing nonsurgical wound with fat layer exposed: CODE(S): T14.8XXA - Other injury of unspecified body region, initial encounter (3) Obesity: CODE(S): E66.9 - Obesity, unspecified QUALIFIERS: Obesity type: unspecified obesity type Obesity classification: adult class 2 (BMI 35 - 39.9) Serious obesity comorbidity presence: without serious comorbidity Body mass index: BMI 39.0-39.9 QualifiedCode(s): E66.9 - Obesity, unspecified; Z68.39 - Body mass index [BMI] 39.0-39.9, adult (4) COPD (chronic obstructive pulmonary disease): CODE(S): J44.9 - Chronic obstructive pulmonary disease, unspecified QUALIFIERS: COPD type: unspecified COPD Qualified Code(s): J44.9 - Chronic obstructive pulmonary disease, unspecified (5) Ulcer of chest wall with fat layer exposed: CODE(S): L98.492 - Non-pressure chronic ulcer of skin of other sites with fat layer exposed PLAN: Plan Debridement performed today in clinic as annotated above. At home wound-care instructions: Apply Aquacel extra and foam dressing every other day. Keep dressing clean and dry. Off-loading: The patient was instructed to avoid pressure and friction on the affected areas. Reposition every 2 hours at minimum. Avoid prolonged standing and/or dangling of legs. When seated, feet should be elevated at chest level. Frequent ambulation is encouraged. Diet: Patient encouraged to increase protein intake while taking caution to avoid high carbohydrate and/or sugar intake. Labs/cultures/imaging: Wound culture positive for Prevotella and Staph epidermidis, taking Clindamycin. Follow-up: Return in 1 week for wound care follow up. Return sooner or report to the emergency room should symptoms worsen, or new symptoms arise. Note: [employer] speech recognition home visits nurse software was used to create portions of this document. Sound-alike and misspelled words, as well as other home visits nurse errors may be contained in the documentation. 05/25/23 6524 <Electronically signed by Mari Veliz DO> Cosigner Signature (if applicable): CC: ~ Signed [facility] Work Phone: 1(387) 222-283010-27-2023 Progress note Author Mari Veliz [facility] May 18, 2023 1:56pm Note Date/Time May 18, 2023 1 :56pm [facility] [address] [place] [address] Progress Note - Wound Care 05/18/23 1353 MR#: [id number] Acct: [id number] Name: ART BLUE Rep #:[id number] : 1955 67 From: Mari Veliz DO PCP: Deysi Castro, DO Status:REG R CR Location: History of Present Illness Date of Service: 05/18/23 Chief Complaint: right lateral chest wound History of Wound: Art is a 67 yo woman that presents to the wound center today for evaluation and treatment of a nonhealing wound of her right chest wallfrom a chest tube. She was hospitalized the end of February and discharged on Mar.24 from [facility] for pneumonia and pleural effusion which need surgical debridement. The wound has not healed since the chest tube was removed Mar.24. She has been applying Bacitracin. She states there is light drainage, no erythema or odor or fever or chills. Subjective Subjective Art is here today for follow up of nonhealing wounds at site of chest tube insertion. She did ok with Aquacel but threw it away accidentally and she returned to using Promogran using hydrogel and foam dressing. The area is still open and draining lightly. She denies fever, chills, increased pain or erythema. Objective Data Objective Data Vital Signs: Vital Signs Temp Pulse Resp BP O2 Del Method 96.5 F L 74 18 138/69 H Room Air 05/18/23 08:30 05/18/23 08:30 05/18/23 08:30 05/18/23 08:30 05/18/23 08:30 Oxygen Delivery Method Room Air Weight: 106.594 kg Body Mass Index (BMI) 39.1 Physical Exam Const alert, oriented x3 and no apparent distress General Appearance: cooperative and comfortable HEENT normocephalic and head/scalp atraumatic Resp normal respiratory effort Effort and Inspection: able to speak in complete sentences Cardio regular rate and regular rhythm Skin Wounds: wounds noted Wound Narrative: as in clinical panel Psych mental status grossly normal, thought process normal, cooperative and affect normal Debridement Note Debridement Note Wound debrided: right chest wall Laterality: Right Type of Debridement: Excisional debridement Anesthesia Used: 4% Lidocaine Solution and 5% Lidocaine Gel Depth: Down to and including healthy tissue and in the subcutaneous layer Percentage of wound debrided: 100 Instrument Used: 3mm curette Tissue Removed: yellow slough, devitalized tissue Severity: Fat Layer Exposed Amount of bleeding with debridement: Mild Bleeding Controlled with: Compression and gauze Patient tolerated procedure: Patient tolerated procedure well Post-Debridement Measurements and Additional Note: Post-Debridement Measurements/Treatment - Nurse 1 - General Ulcer Assessment Start: 04/27/23 10:45 Freq: Status: Active Protocol: DARRYL Activity Type Activity Date Activity User E-sign Co-sign Detail Recorded Client Recorded Date Recorded By Document 04/27/23 10:48 RB Desktop 04/27/23 10:54 RB Edit Result 04/27/23 10:48 RB (1) Desktop 04/27/23 11:25 RB Document 05/04/23 10:33 KW Desktop 05/04/23 10:44 KW Document 05/11/23 10:16 RB Desktop 05/11/23 10:18 RB Document 05/18/23 08:30 MT Desktop 05/18/23 08:38 MT (1) Height => 5 ft 5 in Weight => 106.594 kg Weight in Pounds => 235.0 lbs Body Mass Index (BMI) => 39.1 BMI Classification => Obese BSA - June => 2.12 04/27/23 05/04/23 05/11/23 10:48 10:33 10:16 - Today's Visit Information Type of service Initial Visit Follow-up Visit Follow-up Visit (Physician/DYNAMICS AX CONSULTANT (Physician/DYNAMICS AX CONSULTANT ) ) Arrival Mode Ambulatory Ambulatory Ambulatory Transfer Assistance None None Accompanied by Patient Identification Verified (Name & Yes Yes Yes ) Patient Requires Transmission-Based No No Precautions Safety Precautions Finger Stick Blood Sugar(mg/dl) (if 121 indicated): Blood Sugar Stated by Patient Height and Weight Height 5 ft 5 in Weight 106.594 kg Weight in Pounds 235.0 lbs Body Mass Index (BMI) 39.1 39.1 39.1 BMI Classification Obese Obese Obese BSA - June 2.12 Vital Signs Temperature (97.8 F-99.1 F) 96.4 F L 97.1 F L 97.2 F L Temperature Source Temporal Temporal Temporal Pulse Rate (60-100) 83 91 78 Pulse Location Monitor Monitor Monitor Respiratory Rate (12-18) 18 18 18 Respiratory rate source Observation Observation Observation Oxygen Delivery Method Room Air Blood Pressure (90/60-120/80) 152/63 H 135/56 H 165/66 H Blood Pressure Mean (mm Hg) 92 82 99 Source Monitor Monitor Monitor Position Semi-Fowlers Semi-Fowlers Semi-Fowlers Blood Pressure Location Left Arm Left Arm Left Arm History Since Last Visit- (Skip if this is Patient's initial visit) Have you changed medications since your No No No last visit? Any new allergies or adverse reactions No No No Had a fall/change in ADL's that may No No No increase risk of falls Signs or symptoms of abuse and/or No No No neglect since last visit Have you been in the hospital since your No No No last visit? Has dressing in place as prescribed Yes Yes Yes Has compression in place as prescribed No N/A No Has offloadiing in place as prescribed No N/A No Experienced any changes in pain level or No No management Left Footwear Regular Shoe Right Footwear Regular Shoe Pain Scale: 0-10 Numeric Is Patient Pain Free? Yes Yes Yes Communication Assessment Preferred language Citizen Of [place] [employer] Office Assistant Required No Able to Read Yes Able to Write Yes Communication Tools None Right Hearing Abillity Normal Left Hearing Abillity Normal Visual Assistive Devices Glasses Teaching Assessment Preferences Verbal,Written, Demonstration Barriers to Learning None Readiness To Learn Excellent Willingness to Engage in Self Management Med Activies Readiness to Engage in Self Management Med Activities Anxiety Level Calm Cooperation Cooperative Perception Coherent Interest in Health Problem Asks Questions Education Importance Acknowledges Need Does Patient Smoke tobacco or other No substances Smoking Status Never smoker Is Patient Diabetic Yes Functional Assessment Recent Decline in Ability to Perform Denies Any Declines Assistive Device With Patient No Culture/Pentecostalism/Claims Adjuster Cultural/Pentecostalism Needs that may affect No Treatment Plan Would you allow our hospital technical mgr to No meet you for the purpose of spiritual/ emotional support? Claims Adjuster to contact place of gnosticist No Teaching: Wound Center *Welcome to the Wound Center -Person Taught Patient -Teaching Method Discussion -Response to teaching Verbalize understanding 05/18/23 08:30 WC - Today's Visit Information Type of service Follow-up Visit (Physician/DYNAMICS AX CONSULTANT ) Arrival Mode Ambulatory Transfer Assistance Accompanied by self Patient Identification Verified (Name & Yes ) Patient Requires Transmission-Based Precautions Safety Precautions Fall Prevention Finger Stick Blood Sugar(mg/dl) (if indicated): Blood Sugar Height and Weight Height Weight Weight in Pounds Body Mass Index (BMI) 39.1 BMI Classification Obese BSA - June Vital Signs Temperature (97.8 F-99.1 F) 96.5 F L Temperature Source Temporal Pulse Rate (60-100) 74 Pulse Location Monitor Respiratory Rate (12-18) 18 Respiratory rate source Observation Oxygen Delivery Method Room Air Blood Pressure (90/60-120/80) 138/69 H Blood Pressure Mean (mm Hg) 92 Source Monitor Position Sitting Blood Pressure Location Left Arm History Since Last Visit- (Skip if this is Patient's initial visit) Have you changed medications since your last visit? Any new allergies or adverse reactions Had a fall/change in ADL's that may increase risk of falls Signs or symptoms of abuse and/or neglect since last visit Have you been in the hospital since your last visit? Has dressing in place as prescribed Yes Has compression in place as prescribed N/A Has offloadiing in place as prescribed N/A Experienced any changes in pain level or No management Left Footwear Regular Shoe Right Footwear Regular Shoe Pain Scale: 0-10 Numeric Is Patient Pain Free? Yes Communication Assessment Preferred office 365 consultant Required Able to Read Able to Write Communication Tools Right Hearing Abillity Left Hearing Abillity Visual Assistive Devices Teaching Assessment Preferences Barriers to Learning Readiness To Learn Willingness to Engage in Self Management Activies Readiness to Engage in Self Management Activities Anxiety Level Cooperation Perception Interest in Health Problem Education Importance Does Patient Smoke tobacco or other substances Smoking Status Is Patient Diabetic Functional Assessment Recent Decline in Ability to Perform Assistive Device With Patient Culture/Pentecostalism/Claims Adjuster Cultural/Pentecostalism Needs that may affect Treatment Plan Would you allow our hospital technical mgr to meet you for the purpose of spiritual/ emotional support? Claims Adjuster to contact place of gnosticist Teaching: Wound Center *Welcome to the Wound Center -Person Taught -Teaching Method -Response to teaching - Nurse 1 - General Ulcer Measurement Start: 04/27/23 10:45 Freq: Status: Active Protocol: Activity Type Activity Date Activity User E-sign Co-sign Detail Recorded Client Recorded Date Recorded By Document 04/27/23 10:48 RB Desktop 04/27/23 10:54 RB Document 05/04/23 10:33 KW Desktop 05/04/23 10:44 KW Document 05/11/23 10:16 RB Desktop 05/11/23 10:18 RB Document 05/18/23 08:30 MT Desktop 05/18/23 08:38 MT 04/27/23 05/04/23 05/11/23 10:48 10:33 10:16 Wound Center Nurse 1 1. R chest (rib cage) -Combined with other wound No No -Current Size (cm) - Length 0.5 0.5 0.4 -Current Size (cm) - Width 1 0.6 0.5 -Current Size (cm) - Depth 0.1 0.1 0.1 -Total Square Cm 0.5 0.30 0.20 -Photo Taken Yes -Tunneling No No -Undermining/Tunneling No No -Circular Undermining No No -Exudate Amt Medium Small Medium -Exudate Type Serosanguineous Yellow/Green Serosanguineous -Wound Margin Distinct, Distinct, Distinct, Outline Outline Outline Attached Attached Attached -Granulation Amt Medium (34-66%) Medium (34-66%) Medium (34-66%) -Granulation Quality Wanchese Red Wanchese -Slough/Fibrin Yes Yes -Necrosis Amt Medium (34-66%) Small (1-33%) Medium (34-66%) -Necrotic Tissue Type Adherent Slough Adherent Slough Adherent Slough -Structure Exposed N/A N/A -Texture (Sybil-wound Skin Appearance) Assessed Assessed, Assessed, Localized Edema Scarring -Moisture (Sybil-wound Skin Appearance) Assessed Assessed Assessed -Color (Sybil-wound Skin Appearance) Assessed Assessed Assessed -Temperature (Sybil-wound Skin No Abnormality No Abnormality No Abnormality Appearance) (Pt Warm) (Pt Warm) (Pt Warm) -Tenderness on Palpation (Sybil-wound No No Skin Appearance) -Ulcer Cleansing Wound Cleanser Rinsed/ Wound Cleanser Irrigated with Saline -Foul Odor after Cleansing No No No -Anesthetic Used 5% Lidocaine 5% Lidocaine 5% Lidocaine Gel Gel Gel Lower Limb Edema Present 05/18/23 08:30 Wound Center Nurse 1 1. R chest (rib cage) -Combined with other wound -Current Size (cm) - Length 0.9 -Current Size (cm) - Width 1.6 -Current Size (cm) - Depth 0.1 -Total Square Cm 1.44 -Photo Taken -Tunneling No -Undermining/Tunneling No -Circular Undermining No -Exudate Amt Small -Exudate Type Serous -Wound Margin Flat & Intact -Granulation Amt Large (67-100%) -Granulation Quality Pale,Wanchese,Red -Slough/Fibrin -Necrosis Amt None Present (0 %) -Necrotic Tissue Type -Structure Exposed -Texture (Sybil-wound Skin Appearance) Assessed -Moisture (Sybil-wound Skin Appearance) Assessed -Color (Sybil-wound Skin Appearance) Assessed -Temperature (Sybil-wound Skin No Abnormality Appearance) (Pt Warm) -Tenderness on Palpation (Sybil-wound No Skin Appearance) -Ulcer Cleansing -Foul Odor after Cleansing No -Anesthetic Used 5% Lidocaine Gel Lower Limb Edema Present NA WC - Nurse 2 - General Ulcer CM Notes Start: 04/27/23 10:45 Freq: Status: Active Protocol: Activity Type Activity Date Activity User E-sign Co-sign Detail Recorded Client Recorded Date Recorded By Document 04/27/23 11:13 GM Desktop 04/27/23 11:19 GM Document 05/04/23 10:50 GM Desktop 05/04/23 10:56 GM Document 05/11/23 10:33 GM Desktop 05/11/23 10:38 GM Document 05/18/23 09:05 GM Desktop 05/18/23 09:16 GM 04/27/23 05/04/23 05/11/23 11:13 10:50 10:33 Wound Center Nurse 2 1. R chest (rib cage) -Time 11:13 10:50 10:33 -Correct Patient Yes Yes Yes -Correct Side, Site, Position Yes Yes Yes -Correct Procedure Yes Yes Yes -Procedure Performed Yes Yes No -Type of Procedure Debridement Debridement -Clinical Debridement Subcutaneous Subcutaneous -Tissue Removed Subcutaneous Subcutaneous -Post Debridement (cm) - Length 0.4 0.4 0.3 -Post Debridement (cm) - Width 0.9 0.5 0.7 -Post Debridement (cm) - Depth 0.1 0.1 0.1 -Total Square (Post) (cm) 0.36 0.20 0.21 -Area of Debridement (cm) - Length 0.4 0.4 -Area of Debridement (cm) - Width 0.9 0.5 -Total Square (Area) (cm) 0.36 0.20 -Tunneling No -Undermining/Tunneling No -Circular Undermining No -Wound/Ulcer Outcome Not Healed Not Healed Not Healed -Ulcer Cleansing Rinsed/ Rinsed/ Rinsed/ Irrigated with Irrigated with Irrigated with Saline Saline Saline -Foul Odor after Cleansing No No No -Bioengineered Tissue No No No -Bleeding Controlled with Pressure Pressure Pressure -Treatment Response Procedure Procedure Procedure Tolerated Well Tolerated Well Tolerated Well -Debridement - Subq, 1st 20sq cm Yes Yes Pain Scale: 0-10 Numeric Is Patient Pain Free? Yes Yes Yes 05/18/23 09:05 Wound Center Nurse 2 1. R chest (rib cage) -Time 09:05 -Correct Patient Yes -Correct Side, Site, Position Yes -Correct Procedure Yes -Procedure Performed Yes -Type of Procedure Debridement -Clinical Debridement Subcutaneous -Tissue Removed Subcutaneous -Post Debridement (cm) - Length 0.8 -Post Debridement (cm) - Width 1.4 -Post Debridement (cm) - Depth 0.1 -Total Square (Post) (cm) 1.12 -Area of Debridement (cm) - Length 0.8 -Area of Debridement (cm) - Width 1.4 -Total Square (Area) (cm) 1.12 -Tunneling No -Undermining/Tunneling No -Circular Undermining No -Wound/Ulcer Outcome Not Healed -Ulcer Cleansing Rinsed/ Irrigated with Saline -Foul Odor after Cleansing No -Bioengineered Tissue No -Bleeding Controlled with Pressure -Treatment Response Procedure Tolerated Well -Debridement - Subq, 1st 20sq cm Yes Pain Scale: 0-10 Numeric Is Patient Pain Free? Yes - Nurse 3 - General Ulcer D/C NN Start: 04/27/23 10:45 Freq: Status: Active Protocol: Activity Type Activity Date Activity User E-sign Co-sign Detail Recorded Client Recorded Date Recorded By Document 04/27/23 12:27 RB [id number] 04/27/23 12:28 RB Document 05/04/23 11:01 GM Desktop 05/04/23 11:02 GM Document 05/11/23 10:46 MW Desktop 05/11/23 10:46 MW Document 05/18/23 09:25 RB Desktop 05/18/23 09:25 RB 04/27/23 05/04/23 05/11/23 12:27 11:01 10:46 Wound Care Center Nurse 3 1. R chest (rib cage) -Ulcer Cleansing Rinsed/ Not Cleansed Rinsed/ Irrigated with Irrigated with Saline Saline -Foul Odor after Cleansing No No -Negative Pressure Wound Therapy N/A -Primary Dressing Applied Mepilex Border Mepilex Border, Aquacel Extra, Promogran Mepilex Border -Other Dressing hydrogel -Aquacel Extra 1 -Mepilex Border 4 1 1 -Promogran 1 Treatment Response Procedure Procedure Tolerated Well Tolerated Well Pain Scale: 0-10 Numeric Is Patient Pain Free? Yes Yes Yes Teaching: Wound Center Dressing Your Wound -Person Taught Patient Patient -Teaching Method Discussion, Discussion Demonstration -Response to teaching Verbalize Verbalize understanding understanding WC - Visit Discharge Discharge Condition Stable Stable Stable Ambulatory Status Ambulatory Ambulatory Ambulatory Transportation Private Auto Private Auto Private Auto Accompanied by self Medication Reconcilliation completed & No No provided to patient/care provider Clinical Summary of Care Provided Yes Yes 05/18/23 09:25 Wound Care Center Nurse 3 1. R chest (rib cage) -Ulcer Cleansing Rinsed/ Irrigated with Saline -Foul Odor after Cleansing -Negative Pressure Wound Therapy -Primary Dressing Applied Aquacel Extra, Mepilex Border -Other Dressing -Aquacel Extra 1 -Mepilex Border 1 -Promogran Treatment Response Procedure Tolerated Well Pain Scale: 0-10 Numeric Is Patient Pain Free? Yes Teaching: Wound Center Dressing Your Wound -Person Taught Patient -Teaching Method Discussion, Demonstration -Response to teaching Verbalize understanding WC - Visit Discharge Discharge Condition Stable Ambulatory Status Ambulatory Transportation Private Auto Accompanied by Medication Reconcilliation completed & No provided to patient/care provider Clinical Summary of Care Provided Yes Assessment/Plan Assessment/Plan (1) Open wound of right chest wall: CODE(S): S21.101A - Unspecified open wound of right front wall of thorax without penetration into thoracic cavity, initial encounter QUALIFIERS: Encounter type: subsequent encounter Qualified Code(s): S21.101D - Unspecified open wound of right front wall of thorax withoutpenetration into thoracic cavity, subsequent encounter (2) Nonhealing nonsurgical wound with fat layer exposed: CODE(S): T14.8XXA - Other injury of unspecified body region, initial encounter (3) Obesity: CODE(S): E66.9 - Obesity, unspecified QUALIFIERS: Obesity type: unspecified obesity type Obesity classification: adult class 2 (BMI 35 - 39.9) Serious obesity comorbidity presence: without serious comorbidity Body mass index: BMI 39.0-39.9 QualifiedCode(s): E66.9 - Obesity, unspecified; Z68.39 - Body mass index [BMI] 39.0-39.9, adult (4) COPD (chronic obstructive pulmonary disease): CODE(S): J44.9 - Chronic obstructive pulmonary disease, unspecified QUALIFIERS: COPD type: unspecified COPD Qualified Code(s): J44.9 - Chronic obstructive pulmonary disease, unspecified PLAN: Plan Debridement performed today in clinic as annotated above. At home wound-care instructions: Apply Aquacel extra and foam dressing every other day. Keep dressing clean and dry. Off-loading: The patient was instructed to avoid pressure and friction on the affected areas. Reposition every 2 hours at minimum. Avoid prolonged standing and/or dangling of legs. When seated, feet should be elevated at chest level. Frequent ambulation is encouraged. Diet: Patient encouraged to increase protein intake while taking caution to avoid high carbohydrate and/or sugar intake. Labs/cultures/imaging: Wound culture taken. Follow-up: Return in 1 week for wound care follow up. Return sooner or report to the emergency room should symptoms worsen, or new symptoms arise. Note: [employer] speech recognition home visits nurse software was used to create portions of this document. Sound-alike and misspelled words, as well as other home visits nurse errors may be contained in the documentation. 05/18/23 1356 <Electronically signed by Mari Veliz DO> Cosigner Signature (if applicable): CC: ~ Signed [facility] Work Phone: [phone] [phone] Progress note Author Mari Veliz [facility] May 11, 2023 11:07am Note Date/Time May 11, 2023 1 1:07am [facility] [address] [place] [id number] Progress Note - Wound Care 05/11/23 1104 MR#: [id number] Acct: [id number] Name: ART BLUE Rep #:[id number] 4 : 1955 67 From: Mari Veliz DO PCP: Deysi Castro, DO Status:REG R CR Location: History of Present Illness Date of Service: 05/11/23 Chief Complaint: right lateral chest wound History of Wound: Art is a 67 yo woman that presents to the wound center today for evaluation and treatment of a nonhealing wound of her right chest wallfrom a chest tube. She was hospitalized the end of February and discharged on Mar.24 from [facility] for pneumonia and pleural effusion which need surgical debridement. The wound has not healed since the chest tube was removed Mar.24. She has been applying Bacitracin. She states there is light drainage, no erythema or odor or fever or chills. Subjective Subjective Art is here today for follow up of nonhealing wounds at site of chest tube insertion. She did not tolerate the Promogran. It caused pain and burning so shewent back to using hydrogel and foam dressing. The area is still open and draining lightly. She denies fever, chills, increased pain or erythema. Objective Data Objective Data Vital Signs: Vital Signs Temp Pulse Resp BP O2 Del Method 97.2 F L 78 18 165/66 H Room Air 05/11/23 10:16 05/11/23 10:16 05/11/23 10:16 05/11/23 10:16 05/04/23 10:33 Oxygen Delivery Method Room Air Weight: 106.594 kg Body Mass Index (BMI) 39.1 Physical Exam Const alert, oriented x3 and no apparent distress General Appearance: cooperative and comfortable HEENT normocephalic and head/scalp atraumatic Resp normal respiratory effort Effort and Inspection: able to speak in complete sentences Cardio regular rate and regular rhythm Skin Wounds: wounds noted Wound Narrative: as in clinical panel Psych mental status grossly normal, thought process normal, cooperative and affect normal Debridement Note Debridement Note Wound debrided: right chest wall Laterality: Right Type of Debridement: Selective debridement Anesthesia Used: 4% Lidocaine Solution and 5% Lidocaine Gel Depth: Down to and including healthy tissue and in the subcutaneous layer Percentage of wound debrided: 100 Instrument Used: - (gauze) Tissue Removed: yellow slough, devitalized tissue Severity: Fat Layer Exposed Amount of bleeding with debridement: Mild Bleeding Controlled with: Compression and gauze Patient tolerated procedure: Patient tolerated procedure well Post-Debridement Measurements and Additional Note: Post-Debridement Measurements/Treatment WC - Nurse 1 - General Ulcer Assessment Start: 04/27/23 10:45 Freq: Status: Active Protocol: DARRYL Activity Type Activity Date Activity User E-sign Co-sign Detail Recorded Client Recorded Date Recorded By Document 04/27/23 10:48 RB Desktop 04/27/23 10:54 RB Edit Result 04/27/23 10:48 RB (1) Desktop 04/27/23 11:25 RB Document 05/04/23 10:33 KW Desktop 05/04/23 10:44 KW Document 05/11/23 10:16 RB Desktop 05/11/23 10:18 RB (1) Height => 5 ft 5 in Weight => 106.594 kg Weight in Pounds => 235.0 lbs Body Mass Index (BMI) => 39.1 BMI Classification => Obese BSA - Juen => 2.12 04/27/23 05/04/23 05/11/23 10:48 10:33 10:16 - Today's Visit Information Type of service Initial Visit Follow-up Visit Follow-up Visit (Physician/DYNAMICS AX CONSULTANT (Physician/DYNAMICS AX CONSULTANT ) ) Arrival Mode Ambulatory Ambulatory Ambulatory Transfer Assistance None None Patient Identification Verified (Name & Yes Yes Yes ) Patient Requires Transmission-Based No No Precautions Finger Stick Blood Sugar(mg/dl) (if 121 indicated): Blood Sugar Stated by Patient Height and Weight Height 5 ft 5 in Weight 106.594 kg Weight in Pounds 235.0 lbs Body Mass Index (BMI) 39.1 39.1 39.1 BMI Classification Obese Obese Obese BSA - June 2.12 Vital Signs Temperature (97.8 F-99.1 F) 96.4 F L 97.1 F L 97.2 F L Temperature Source Temporal Temporal Temporal Pulse Rate (60-100) 83 91 78 Pulse Location Monitor Monitor Monitor Respiratory Rate (12-18) 18 18 18 Respiratory rate source Observation Observation Observation Oxygen Delivery Method Room Air Blood Pressure (90/60-120/80) 152/63 H 135/56 H 165/66 H Blood Pressure Mean (mm Hg) 92 82 99 Source Monitor Monitor Monitor Position Semi-Fowlers Semi-Fowlers Semi-Fowlers Blood Pressure Location Left Arm Left Arm Left Arm History Since Last Visit- (Skip if this is Patient's initial visit) Have you changed medications since your No No No last visit? Any new allergies or adverse reactions No No No Had a fall/change in ADL's that may No No No increase risk of falls Signs or symptoms of abuse and/or No No No neglect since last visit Have you been in the hospital since your No No No last visit? Has dressing in place as prescribed Yes Yes Yes Has compression in place as prescribed No N/A No Has offloadiing in place as prescribed No N/A No Experienced any changes in pain level or No No management Left Footwear Regular Shoe Right Footwear Regular Shoe Pain Scale: 0-10 Numeric Is Patient Pain Free? Yes Yes Yes Communication Assessment Preferred language Citizen Of [place] School Office Assistant Required No Able to Read Yes Able to Write Yes Communication Tools None Right Hearing Abillity Normal Left Hearing Abillity Normal Visual Assistive Devices Glasses Teaching Assessment Preferences Verbal,Written, Demonstration Barriers to Learning None Readiness To Learn Excellent Willingness to Engage in Self Management Med Activies Readiness to Engage in Self Management Med Activities Anxiety Level Calm Cooperation Cooperative Perception Coherent Interest in Health Problem Asks Questions Education Importance Acknowledges Need Does Patient Smoke tobacco or other No substances Smoking Status Never smoker Is Patient Diabetic Yes Functional Assessment Recent Decline in Ability to Perform Denies Any Declines Assistive Device With Patient No Culture/Pentecostalism/Claims Adjuster Cultural/Pentecostalism Needs that may affect No Treatment Plan Would you allow our hospital technical mgr to No meet you for the purpose of spiritual/ emotional support? Claims Adjuster to contact place of gnosticist No Teaching: Wound Center *Welcome to the Wound Center -Person Taught Patient -Teaching Method Discussion -Response to teaching Verbalize understanding WC - Nurse 1 - General Ulcer Measurement Start: 04/27/23 10:45 Freq: Status: Active Protocol: Activity Type Activity Date Activity User E-sign Co-sign Detail Recorded Client Recorded Date Recorded By Document 04/27/23 10:48 RB Desktop 04/27/23 10:54 RB Document 05/04/23 10:33 KW Desktop 05/04/23 10:44 KW Document 05/11/23 10:16 RB Desktop 05/11/23 10:18 RB 04/27/23 05/04/23 05/11/23 10:48 10:33 10:16 Wound Center Nurse 1 1. R chest (rib cage) -Combined with other wound No No -Current Size (cm) - Length 0.5 0.5 0.4 -Current Size (cm) - Width 1 0.6 0.5 -Current Size (cm) - Depth 0.1 0.1 0.1 -Total Square Cm 0.5 0.30 0.20 -Photo Taken Yes -Tunneling No No -Undermining/Tunneling No No -Circular Undermining No No -Exudate Amt Medium Small Medium -Exudate Type Serosanguineous Yellow/Green Serosanguineous -Wound Margin Distinct, Distinct, Distinct, Outline Outline Outline Attached Attached Attached -Granulation Amt Medium (34-66%) Medium (34-66%) Medium (34-66%) -Granulation Quality Wanchese Red Wanchese -Slough/Fibrin Yes Yes -Necrosis Amt Medium (34-66%) Small (1-33%) Medium (34-66%) -Necrotic Tissue Type Adherent Slough Adherent Slough Adherent Slough -Structure Exposed N/A N/A -Texture (Sybil-wound Skin Appearance) Assessed Assessed, Assessed, Localized Edema Scarring -Moisture (Sybil-wound Skin Appearance) Assessed Assessed Assessed -Color (Sybil-wound Skin Appearance) Assessed Assessed Assessed -Temperature (Sybil-wound Skin No Abnormality No Abnormality No Abnormality Appearance) (Pt Warm) (Pt Warm) (Pt Warm) -Tenderness on Palpation (Sybil-wound No No Skin Appearance) -Ulcer Cleansing Wound Cleanser Rinsed/ Wound Cleanser Irrigated with Saline -Foul Odor after Cleansing No No No -Anesthetic Used 5% Lidocaine 5% Lidocaine 5% Lidocaine Gel Gel Gel WC - Nurse 2 - General Ulcer CM Notes Start: 04/27/23 10:45 Freq: Status: Active Protocol: Activity Type Activity Date Activity User E-sign Co-sign Detail Recorded Client Recorded Date Recorded By Document 04/27/23 11:13 GM Desktop 04/27/23 11:19 GM Document 05/04/23 10:50 Desktop 05/04/23 10:56 GM Document 05/11/23 10:33 GM Desktop 05/11/23 10:38 GM 04/27/23 05/04/23 05/11/23 11:13 10:50 10:33 Wound Center Nurse 2 1. R chest (rib cage) -Time 11:13 10:50 10:33 -Correct Patient Yes Yes Yes -Correct Side, Site, Position Yes Yes Yes -Correct Procedure Yes Yes Yes -Procedure Performed Yes Yes No -Type of Procedure Debridement Debridement -Clinical Debridement Subcutaneous Subcutaneous -Tissue Removed Subcutaneous Subcutaneous -Post Debridement (cm) - Length 0.4 0.4 0.3 -Post Debridement (cm) - Width 0.9 0.5 0.7 -Post Debridement (cm) - Depth 0.1 0.1 0.1 -Total Square (Post) (cm) 0.36 0.20 0.21 -Area of Debridement (cm) - Length 0.4 0.4 -Area of Debridement (cm) - Width 0.9 0.5 -Total Square (Area) (cm) 0.36 0.20 -Tunneling No -Undermining/Tunneling No -Circular Undermining No -Wound/Ulcer Outcome Not Healed Not Healed Not Healed -Ulcer Cleansing Rinsed/ Rinsed/ Rinsed/ Irrigated with Irrigated with Irrigated with Saline Saline Saline -Foul Odor after Cleansing No No No -Bioengineered Tissue No No No -Bleeding Controlled with Pressure Pressure Pressure -Treatment Response Procedure Procedure Procedure Tolerated Well Tolerated Well Tolerated Well -Debridement - Subq, 1st 20sq cm Yes Yes Pain Scale: 0-10 Numeric Is Patient Pain Free? Yes Yes Yes - Nurse 3 - General Ulcer D/C NN Start: 04/27/23 10:45 Freq: Status: Active Protocol: Activity Type Activity Date Activity User E-sign Co-sign Detail Recorded Client Recorded Date Recorded By Document 04/27/23 12:27 RB [id number] 04/27/23 12:28 RB Document 05/04/23 11:01 Desktop 05/04/23 11:02 Document 05/11/23 10:46 MW Desktop 05/11/23 10:46 MW 04/27/23 05/04/23 05/11/23 12:27 11:01 10:46 Wound Care Center Nurse 3 1. R chest (rib cage) -Ulcer Cleansing Rinsed/ Not Cleansed Rinsed/ Irrigated with Irrigated with Saline Saline -Foul Odor after Cleansing No No -Negative Pressure Wound Therapy N/A -Primary Dressing Applied Mepilex Border Mepilex Border, Aquacel Extra, Promogran Mepilex Border -Other Dressing hydrogel -Aquacel Extra 1 -Mepilex Border 4 1 1 -Promogran 1 Treatment Response Procedure Procedure Tolerated Well Tolerated Well Pain Scale: 0-10 Numeric Is Patient Pain Free? Yes Yes Yes Teaching: Wound Center Dressing Your Wound -Person Taught Patient Patient -Teaching Method Discussion, Discussion Demonstration -Response to teaching Verbalize Verbalize understanding understanding WC - Visit Discharge Discharge Condition Stable Stable Stable Ambulatory Status Ambulatory Ambulatory Ambulatory Transportation Private Auto Private Auto Private Auto Accompanied by self Medication Reconcilliation completed & No No provided to patient/care provider Clinical Summary of Care Provided Yes Yes Assessment/Plan Assessment/Plan (1) Open wound of right chest wall: CODE(S): S21.101A - Unspecified open wound of right front wall of thorax without penetration into thoracic cavity, initial encounter QUALIFIERS: Encounter type: subsequent encounter Qualified Code(s): S21.101D - Unspecified open wound of right front wall of thorax withoutpenetration into thoracic cavity, subsequent encounter (2) Nonhealing nonsurgical wound with fat layer exposed: CODE(S): T14.8XXA - Other injury of unspecified body region, initial encounter (3) Obesity: CODE(S): E66.9 - Obesity, unspecified QUALIFIERS: Obesity type: unspecified obesity type Obesity classification: adult class 2 (BMI 35 - 39.9) Serious obesity comorbidity presence:without serious comorbidity Body mass index: BMI 39.0-39.9 Qualified Code(s): E66.9 - Obesity, unspecified; Z68.39 - Body mass index [BMI] 39.0-39.9, adult (4) COPD (chronic obstructive pulmonary disease): CODE(S): J44.9 - Chronic obstructive pulmonary disease, unspecified QUALIFIERS: COPD type: unspecified COPD Qualified Code(s): J44.9 - Chronic obstructive pulmonary disease, unspecified PLAN: Plan Debridement performed today in clinic as annotated above. At home wound-care instructions: Apply hydrogel, then Aquacel extra and foam dressing every other day. Keep dressing clean and dry. Off-loading: The patient was instructed to avoid pressure and friction on the affected areas. Reposition every 2 hours at minimum. Avoid prolonged standing and/or dangling of legs. When seated, feet should be elevated at chest level. Frequent ambulation is encouraged. Diet: Patient encouraged to increase protein intake while taking caution to avoid high carbohydrate and/or sugar intake. Labs/cultures/imaging: Follow-up: Return in 1 week for wound care follow up. Return sooner or report to the emergency room should symptoms worsen, or new symptoms arise. Note: [employer] speech recognition home visits nurse software was used to create portions of this document. Sound-alike and misspelled words, as well as other home visits nurse errors may be contained in the documentation. 05/11/23 1107 <Electronically signed by Mari Veliz DO> Cosigner Signature (if applicable): CC: ~ Signed [facility] Work Phone: 1(624) 358-182910-13-[address] [facility] May 04, 2023 12:52pm Note Date/Time May 04, 2023 1 2:52pm [facility] [address] [place] [address] Progress Note - Wound Care 05/04/23 1249 MR#: [id number] Acct: [id number] Name: ART BLUE Rep #:[id number] : 1955 67 From: Mari Veliz DO PCP: Deysi Castro DO Status:REG R CR Location: History of Present Illness Date of Service: 05/04/23 Chief Complaint: right lateral chest wound History of Wound: Art is a 67 yo woman that presents to the wound center today for evaluation and treatment of a nonhealing wound of her right chest wallfrom a chest tube. She was hospitalized the end of February and discharged on Mar.24 from [facility] for pneumonia and pleural effusion which need surgical debridement. The wound has not healed since the chest tube was removed Mar.24. She has been applying Bacitracin. She states there is light drainage, no erythema or odor or fever or chills. Subjective Subjective Art is here today for follow up of nonhealing wounds at site of chest tube insertion. She tolerated the hydrogel and the foam dressings well and the one area is healed. The other area is still open and draining lightly. She denies fever, chills, increased pain or erythema. Objective Data Objective Data Vital Signs: Vital Signs Temp Pulse Resp BP O2 Del Method 97.1 F L 91 18 135/56 H Room Air 05/04/23 10:33 05/04/23 10:33 05/04/23 10:33 05/04/23 10:33 05/04/23 10:33 Oxygen Delivery Method Room Air Weight: 106.594 kg Body Mass Index (BMI) 39.1 Physical Exam Const alert, oriented x3 and no apparent distress General Appearance: cooperative and comfortable HEENT normocephalic and head/scalp atraumatic Resp normal respiratory effort Effort and Inspection: able to speak in complete sentences Cardio regular rate and regular rhythm Skin Wounds: wounds noted Wound Narrative: as in clinical panel Psych mental status grossly normal, thought process normal, cooperative and affect normal Debridement Note Debridement Note Wound debrided: right chest wall Laterality: Right Type of Debridement: Selective debridement Anesthesia Used: 4% Lidocaine Solution and 5% Lidocaine Gel Depth: Down to and including healthy tissue and in the subcutaneous layer Percentage of wound debrided: 100 Instrument Used: - (gauze) Tissue Removed: yellow slough, devitalized tissue Severity: Fat Layer Exposed Amount of bleeding with debridement: Mild Bleeding Controlled with: Compression and gauze Patient tolerated procedure: Patient tolerated procedure well Post-Debridement Measurements and Additional Note: Post-Debridement Measurements/Treatment - Nurse 1 - General Ulcer Assessment Start: 04/27/23 10:45 Freq: Status: Active Protocol: DARRYL Activity Type Activity Date Activity User E-sign Co-sign Detail Recorded Client Recorded Date Recorded By Document 04/27/23 10:48 RB Desktop 04/27/23 10:54 RB Edit Result 04/27/23 10:48 RB (1) Desktop 04/27/23 11:25 RB Document 05/04/23 10:33 KW Desktop 05/04/23 10:44 KW (1) Height => 5 ft 5 in Weight => 106.594 kg Weight in Pounds => 235.0 lbs Body Mass Index (BMI) => 39.1 BMI Classification => Obese BSA - June => 2.12 04/27/23 05/04/23 10:48 10:33 - Today's Visit Information Type of service Initial Visit Follow-up Visit (Physician/DYNAMICS AX CONSULTANT ) Arrival Mode Ambulatory Ambulatory Transfer Assistance None Patient Identification Verified (Name & Yes Yes ) Patient Requires Transmission-Based No Precautions Finger Stick Blood Sugar(mg/dl) (if 121 indicated): Blood Sugar Stated by Patient Height and Weight Height 5 ft 5 in Weight 106.594 kg Weight in Pounds 235.0 lbs Body Mass Index (BMI) 39.1 39.1 BMI Classification Obese Obese BSA - June 2.12 Vital Signs Temperature (97.8 F-99.1 F) 96.4 F L 97.1 F L Temperature Source Temporal Temporal Pulse Rate (60-100) 83 91 Pulse Location Monitor Monitor Respiratory Rate (12-18) 18 18 Respiratory rate source Observation Observation Oxygen Delivery Method Room Air Blood Pressure (90/60-120/80) 152/63 H 135/56 H Blood Pressure Mean (mm Hg) 92 82 Source Monitor Monitor Position Semi-Fowlers Semi-Fowlers Blood Pressure Location Left Arm Left Arm History Since Last Visit- (Skip if this is Patient's initial visit) Have you changed medications since your No No last visit? Any new allergies or adverse reactions No No Had a fall/change in ADL's that may No No increase risk of falls Signs or symptoms of abuse and/or No No neglect since last visit Have you been in the hospital since your No No last visit? Has dressing in place as prescribed Yes Yes Has compression in place as prescribed No N/A Has offloadiing in place as prescribed No N/A Experienced any changes in pain level or No management Left Footwear Regular Shoe Right Footwear Regular Shoe Pain Scale: 0-10 Numeric Is Patient Pain Free? Yes Yes Communication Assessment Preferred language Citizen Of [place] School Office Assistant Required No Able to Read Yes Able to Write Yes Communication Tools None Right Hearing Abillity Normal Left Hearing Abillity Normal Visual Assistive Devices Glasses Teaching Assessment Preferences Verbal,Written, Demonstration Barriers to Learning None Readiness To Learn Excellent Willingness to Engage in Self Management Med Activies Readiness to Engage in Self Management Med Activities Anxiety Level Calm Cooperation Cooperative Perception Coherent Interest in Health Problem Asks Questions Education Importance Acknowledges Need Does Patient Smoke tobacco or other No substances Smoking Status Never smoker Is Patient Diabetic Yes Functional Assessment Recent Decline in Ability to Perform Denies Any Declines Assistive Device With Patient No Culture/Pentecostalism/Claims Adjuster Cultural/Pentecostalism Needs that may affect No Treatment Plan Would you allow our hospital technical mgr to No meet you for the purpose of spiritual/ emotional support? Claims Adjuster to contact place of gnosticist No Teaching: Wound Center *Welcome to the Wound Center -Person Taught Patient -Teaching Method Discussion -Response to teaching Verbalize understanding WC - Nurse 1 - General Ulcer Measurement Start: 04/27/23 10:45 Freq: Status: Active Protocol: Activity Type Activity Date Activity User E-sign Co-sign Detail Recorded Client Recorded Date Recorded By Document 04/27/23 10:48 RB Desktop 04/27/23 10:54 RB Document 05/04/23 10:33 KW Desktop 05/04/23 10:44 KW 04/27/23 05/04/23 10:48 10:33 Wound Center Nurse 1 1. R chest (rib cage) -Combined with other wound No -Current Size (cm) - Length 0.5 0.5 -Current Size (cm) - Width 1 0.6 -Current Size (cm) - Depth 0.1 0.1 -Total Square Cm 0.5 0.30 -Photo Taken Yes -Tunneling No -Undermining/Tunneling No -Circular Undermining No -Exudate Amt Medium Small -Exudate Type Serosanguineous Yellow/Green -Wound Margin Distinct, Distinct, Outline Outline Attached Attached -Granulation Amt Medium (34-66%) Medium (34-66%) -Granulation Quality [place] Red -Slough/Fibrin Yes -Necrosis Amt Medium (34-66%) Small (1-33%) -Necrotic Tissue Type Adherent Slough Adherent Slough -Structure Exposed N/A -Texture (Sybil-wound Skin Appearance) Assessed Assessed, Localized Edema -Moisture (Sybil-wound Skin Appearance) Assessed Assessed -Color (Sybil-wound Skin Appearance) Assessed Assessed -Temperature (Sybil-wound Skin No Abnormality No Abnormality Appearance) (Pt Warm) (Pt Warm) -Tenderness on Palpation (Sybil-wound No Skin Appearance) -Ulcer Cleansing Wound Cleanser Rinsed/ Irrigated with Saline -Foul Odor after Cleansing No No -Anesthetic Used 5% Lidocaine 5% Lidocaine Gel Gel WC - Nurse 2 - General Ulcer CM Notes Start: 04/27/23 10:45 Freq: Status: Active Protocol: Activity Type Activity Date Activity User E-sign Co-sign Detail Recorded Client Recorded Date Recorded By Document 04/27/23 11:13 Desktop 04/27/23 11:19 Document 05/04/23 10:50 Desktop 05/04/23 10:56 04/27/23 05/04/23 11:13 10:50 Wound Center Nurse 2 1. R chest (rib cage) -Time 11:13 10:50 -Correct Patient Yes Yes -Correct Side, Site, Position Yes Yes -Correct Procedure Yes Yes -Procedure Performed Yes Yes -Type of Procedure Debridement Debridement -Clinical Debridement Subcutaneous Subcutaneous -Tissue Removed Subcutaneous Subcutaneous -Post Debridement (cm) - Length 0.4 0.4 -Post Debridement (cm) - Width 0.9 0.5 -Post Debridement (cm) - Depth 0.1 0.1 -Total Square (Post) (cm) 0.36 0.20 -Area of Debridement (cm) - Length 0.4 0.4 -Area of Debridement (cm) - Width 0.9 0.5 -Total Square (Area) (cm) 0.36 0.20 -Tunneling No -Undermining/Tunneling No -Circular Undermining No -Wound/Ulcer Outcome Not Healed Not Healed -Ulcer Cleansing Rinsed/ Rinsed/ Irrigated with Irrigated with Saline Saline -Foul Odor after Cleansing No No -Bioengineered Tissue No No -Bleeding Controlled with Pressure Pressure -Treatment Response Procedure Procedure Tolerated Well Tolerated Well -Debridement - Subq, 1st 20sq cm Yes Yes Pain Scale: 0-10 Numeric Is Patient Pain Free? Yes Yes - Nurse 3 - General Ulcer D/C NN Start: 04/27/23 10:45 Freq: Status: Active Protocol: Activity Type Activity Date Activity User E-sign Co-sign Detail Recorded Client Recorded Date Recorded By Document 04/27/23 12:27 RB [id number] 04/27/23 12:28 RB Document 05/04/23 11:01 Desktop 05/04/23 11:02 04/27/23 05/04/23 12:27 11:01 Wound Care Center Nurse 3 1. R chest (rib cage) -Ulcer Cleansing Rinsed/ Not Cleansed Irrigated with Saline -Foul Odor after Cleansing No -Primary Dressing Applied Mepilex Border Mepilex Border, Promogran -Other Dressing hydrogel -Mepilex Border 4 1 -Promogran 1 Treatment Response Procedure Tolerated Well Pain Scale: 0-10 Numeric Is Patient Pain Free? Yes Yes Teaching: Wound Center Dressing Your Wound -Person Taught Patient -Teaching Method Discussion, Demonstration -Response to teaching Verbalize understanding - Visit Discharge Discharge Condition Stable Stable Ambulatory Status Ambulatory Ambulatory Transportation Private Auto Private Auto Medication Reconcilliation completed & No provided to patient/care provider Clinical Summary of Care Provided Yes Assessment/Plan Assessment/Plan (1) Open wound of right chest wall: CODE(S): S21.101A - Unspecified open wound of right front wall of thorax without penetration into thoracic cavity, initial encounter QUALIFIERS: Encounter type: subsequent encounter Qualified Code(s): S21.101D - Unspecified open wound of right front wall of thorax withoutpenetration into thoracic cavity, subsequent encounter (2) Nonhealing nonsurgical wound with fat layer exposed: CODE(S): T14.8XXA - Other injury of unspecified body region, initial encounter (3) Obesity: CODE(S): E66.9 - Obesity, unspecified QUALIFIERS: Obesity type: unspecified obesity type Obesity classification: adult class 2 (BMI 35 - 39.9) Serious obesity comorbidity presence: without serious comorbidity Body mass index: BMI 39.0-39.9 QualifiedCode(s): E66.9 - Obesity, unspecified; Z68.39 - Body mass index [BMI] 39.0-39.9, adult (4) COPD (chronic obstructive pulmonary disease): CODE(S): J44.9 - Chronic obstructive pulmonary disease, unspecified QUALIFIERS: COPD type: unspecified COPD Qualified Code(s): J44.9 - Chronic obstructive pulmonary disease, unspecified PLAN: Plan Debridement performed today in clinic as annotated above. At home wound-care instructions: Apply Promogran and foam dressing every other day. Keep dressing clean and dry. Off-loading: The patient was instructed to avoid pressure and friction on the affected areas. Reposition every 2 hours at minimum. Avoid prolonged standing and/or dangling of legs. When seated, feet should be elevated at chest level. Frequent ambulation is encouraged. Diet: Patient encouraged to increase protein intake while taking caution to avoid high carbohydrate and/or sugar intake. Labs/cultures/imaging: Follow-up: Return in 1 week for wound care follow up. Return sooner or report to the emergency room should symptoms worsen, or new symptoms arise. Note: [employer] speech recognition home visits nurse software was used to create portions of this document. Sound-alike and misspelled words, as well as other home visits nurse errors may be contained in the documentation. 05/04/23 1252 <Electronically signed by Mari Malys DO> Cosigner Signature (if applicable): CC: ~ Signed [facility] Work Phone: 1(825) 435-980110-12-2023 History of Present illness Narrative* Sahara Hoyt RT(R) - 05/03/2023 10:30 AM EDT Radiology Service Progress Note PATIENT NAME: Art Blue DATE OF SERVICE: May 03, 2023 TIME: 10:18 AM PATIENT IDENTITY VERIFICATION COMPLETED USING TWO (2) IDENTIFIERS: Name and Date of confirmedby patient verbally. FALL SCREENING: Has the patient had 2 falls in the last year or 1 fall with injury or currently using an Ambulatory Assistive Device (Walker, Cane, Wheelchair, Crutches, etc.)? No PATIENT GENDER DATA: Female. status: : No status: NO. PATIENT RELEVANT IMPLANT DATA REVIEWED: Not Applicable RADIOLOGY DEPARTMENT: General X-ray: Exam(s) Completed: Chest X-Ray PERIPHERAL IV DATA: Not applicable SIGNED BY: RT Wolf(R) May 03, 2023 10:18 AM [facility] History and physical note Author Mari Veliz [facility] April 27, 2023 3:35pm Note Date/Time April 27, 2023 3: 35pm [facility] [address] [place] [id number] H&P Exam - Wound Care 04/27/23 1519 MR#: [id number] Acct: [id number] Name: ART BLUE Rep #:[id number] 2 : 1955 67 From: Mari Veliz DO PCP: Deysi Castro DO Status:REG R CR Location: History of Present Illness Date of Service: 04/27/23 Chief Complaint: right lateral chest wound History of Wound: Art is a 67 yo woman that presents to the wound center today for evaluation and treatment of a nonhealing wound of her right chest wallfrom a chest tube. She was hospitalized the end of February and discharged on Mar.24 from [facility] for pneumonia and pleural effusion which need surgical debridement. The wound has not healed since the chest tube was removed Mar.24. She has been applying Bacitracin. She states there is light drainage, no erythema or odor or fever or chills. [facility] Medical History Anemia Anxiety and depression Cerebral convexity meningioma Cerebrovascular small vessel disease Cervical radiculitis Claustrophobia CPAP (continuous positive airway pressure) dependence Depression Diabetes DVT (deep venous thrombosis) Encounter for screening for COVID-19 Fatigue Former smoker Gastric ulcer GERD (gastroesophageal reflux disease) Glaucoma High cholesterol History of DVT (deep vein thrombosis) History of edema History of iron deficiency History of kidney stones History of pneumonia History of stress test (~04/06/20) History of ulceration History of UTI HTN (hypertension) Hypoxia Leg cramps Mild cognitive impairment Neuropathy Peripheral vestibulopathy Pneumonia Post-menopausal Preop testing Pulmonary embolism Renal calculus, bilateral Right hip pain Shortness of breath on exertion Sleep apnea Wears glasses Home Medications cyanocobalamin (vitamin B-12) 500 mcg tablet 500 mcg PO DAILY@0800 SUPPLEMENT 02/11/14 [History Last Taken 01/22/23] ferrous sulfate 325 mg (65 mg iron) tablet 325 mg PO BID SUPPLEMENT 02/11/14 [History Last Taken 01/22/23] multivitamin with folic acid 400 mcg tablet 1 tab PO DAILY SUPPLEMENT 02/11/14 [History Last Taken 01/22/23] omeprazole 20 mg capsule,delayed release 20 mg PO BID REFLUX 02/11/14 [History Last Taken 01/22/23] trazodone 50 mg tablet 50 mg PO QHS SLEEP 02/11/14 [History Last Taken 01/22/23] venlafaxine 75 mg tablet 75 mg PO BID DEPRESSION 02/11/14 [History Last Taken 01/22/23] biotin 10,000 mcg capsule 10,000 mcg PO DAILY HAIR LOSS 05/30/21 [History Last Taken 01/22/23] buspirone 5 mg tablet 5 mg PO TID PRN anxiety 05/30/21 [History Last Taken 01/22/23] calcium carbonate 600 mg-vitamin D3 12.5 mcg (500 unit) capsule (Calcium 600 with Vitamin D3) 1 cap PO BID 05/30/21 [History Last Taken 01/22/23] gabapentin 300 mg capsule 100 mg PO BID 05/30/21 [History Last Taken 01/22/23] metformin 1,000 mg tablet 500 mg PO BID 05/30/21 [History Last Taken 01/22/23] lisinopril 20 mg-hydrochlorothiazide 25 mg tablet 1 tab PO DAILY BP 01/23/23 [History Last Taken 01/22/23] warfarin 5 mg tablet (Marialuisa) 7.5 mg PO DAILY 01/23/23 [History Last Taken 01/22/23] tramadol 50 mg tablet 50 mg PO Q6H PRN Pain Score 6-10 #25 tabs 01/25/23 [Rx Last Taken Unknown] meclizine 25 mg tablet 25 mg PO BID PRN dizziness #60 tabs 02/27/23 [Rx Last Taken Unknown] ropinirole 2 mg tablet 2 mg PO .COMPLEX #180 tabs 02/27/23 [Rx Last Taken Unknown] prednisone 10 mg tablets in a dose pack See Rx Instructions PO PER PKG DIR #21 tabs 03/11/23 [Rx Last Taken Unknown] Allergy/AdvReac Type Severity Reaction Status Date / Time amoxicillin Allergy Mild rash Verified 04/19/23 10:59 atorvastatin AdvReac Mild myalgiias Verified 04/19/23 10:59 levofloxacin [From Levaquin] AdvReac Unknown Nausea Verified 04/19/23 10:59 Family History Mother Heart disease Hypertension Father Heart disease CVA (cerebral vascular accident) Brother Cancer Surgical History History of carpal tunnel release of both wrists History of colonoscopy (~2014) History of dilation and curettage History of [place]-en-Y gastric bypass History of umbilical hernia repair Status post biopsy of thyroid gland (~08/2019) Status post panniculectomy Social History household members: spouse housing: house Smoking Status: Never smoker Tobacco: How many years used: 40 Electronic Cigarette Use: not used how long ago did patient quit smoking: about a year and half ago second hand exposure: No alcohol intake: never substance use type: does not use what type of physical activity do you participate in: none do you feel safe at home: Yes ROS Constitutional Constitutional: Denies chills, fatigue or fever(s) Eyes Eyes: Denies blurry vision, change in vision or loss of vision ENT HEENT: Denies dysphagia, hearing loss or sore throat Cardiovascular Cardiovascular: Denies chest pain, edema or palpitations Respiratory/Chest Respiratory/Chest: Denies dry cough, dyspnea, dyspnea on exertion, productive cough or wheezing Gastrointestinal Gastrointestinal: Denies diarrhea, nausea or vomiting Genitourinary Genitourinary: Denies dysuria or polyuria Musculoskeletal Musculoskeletal: Denies arthralgias, joint stiffness or muscle weakness Integumentary Integumentary: Reports erythema and wounds Neurologic Neurologic: Denies dizziness, memory loss or weakness Psychiatric Psychiatric: Denies homicidal ideation or suicidal ideation Endocrine Endocrinology: Denies polydipsia, polyphagia or polyuria Hematologic/Lymphatic Hematologic/Lymphatic: Denies easy bleeding or easy bruising Allergic/Immunologic Allergic/Immunologic: Denies throat swelling, tongue swelling or urticaria Vital Signs Vital Signs Vital Signs: 04/27/23 10:48 Temperature 96.4 F L Temperature Source Temporal Pulse Rate 83 Respiratory Rate 18 Blood Pressure 152/63 H Blood Pressure Mean 92 Blood Pressure Source Monitor Blood Pressure Position Semi-Fowlers Blood Pressure Location Left Arm Weight Weight: 106.594 kg Body Mass Index (BMI) 39.1 Physical Exam Const alert, oriented x3 and no apparent distress General Appearance: cooperative and comfortable HEENT normocephalic and head/scalp atraumatic Resp normal respiratory effort Effort and Inspection: able to speak in complete sentences Cardio regular rate and regular rhythm Skin Wounds: wounds noted Wound Narrative: as in clinical panel Psych mental status grossly normal, thought process normal, cooperative and affect normal Debridement Note Debridement Note Wound debrided: right chest wall Laterality: Right Type of Debridement: Excisional debridement Anesthesia Used: 4% Lidocaine Solution and 5% Lidocaine Gel Depth: Down to and including healthy tissue and in the subcutaneous layer Percentage of wound debrided: 100 Instrument Used: 3mm curette Tissue Removed: yellow slough, devitalized tissue Severity: Fat Layer Exposed Amount of bleeding with debridement: Mild Bleeding Controlled with: Compression and gauze Patient tolerated procedure: Patient tolerated procedure well Post-Debridement Measurements and Additional Note: Post-Debridement Measurements/Treatment WC - Nurse 1 - General Ulcer Assessment Start: 04/27/23 10:45 Freq: Status: Active Protocol: CHERYL.LOWEXT Activity Type Activity Date Activity User E-sign Co-sign Detail Recorded Client Recorded Date Recorded By Document 04/27/23 10:48 RB Desktop 04/27/23 10:54 RB Edit Result 04/27/23 10:48 RB (1) Desktop 04/27/23 11:25 RB (1) Height => 5 ft 5 in Weight => 106.594 kg Weight in Pounds => 235.0 lbs Body Mass Index (BMI) => 39.1 BMI Classification => Obese BSA - June => 2.12 04/27/23 10:48 WC - Today's Visit Information Type of service Initial Visit Arrival Mode Ambulatory Transfer Assistance None Patient Identification Verified (Name & Yes ) Patient Requires Transmission-Based No Precautions Height and Weight Height 5 ft 5 in Weight 106.594 kg Weight in Pounds 235.0 lbs Body Mass Index (BMI) 39.1 BMI Classification Obese BSA - June 2.12 Vital Signs Temperature (97.8 F-99.1 F) 96.4 F L Temperature Source Temporal Pulse Rate (60-100) 83 Pulse Location Monitor Respiratory Rate (12-18) 18 Respiratory rate source Observation Blood Pressure (90/60-120/80) 152/63 H Blood Pressure Mean 92 Source Monitor Position Semi-Fowlers Blood Pressure Location Left Arm History Since Last Visit- (Skip if this is Patient's initial visit) Have you changed medications since your No last visit? Any new allergies or adverse reactions No Had a fall/change in ADL's that may No increase risk of falls Signs or symptoms of abuse and/or No neglect since last visit Have you been in the hospital since your No last visit? Has dressing in place as prescribed Yes Has compression in place as prescribed No Has offloadiing in place as prescribed No Experienced any changes in pain level or No management Pain Scale: 0-10 Numeric Is Patient Pain Free? Yes Communication Assessment Preferred language Citizen Of [place] School Office Assistant Required No Able to Read Yes Able to Write Yes Communication Tools None Right Hearing Abillity Normal Left Hearing Abillity Normal Visual Assistive Devices Glasses Teaching Assessment Preferences Verbal,Written, Demonstration Barriers to Learning None Readiness To Learn Excellent Willingness to Engage in Self Management Med Activies Readiness to Engage in Self Management Med Activities Anxiety Level Calm Cooperation Cooperative Perception Coherent Interest in Health Problem Asks Questions Education Importance Acknowledges Need Does Patient Smoke tobacco or other No substances Smoking Status Never smoker Is Patient Diabetic Yes Functional Assessment Recent Decline in Ability to Perform Denies Any Declines Assistive Device With Patient No Culture/Pentecostalism/Claims Adjuster Cultural/Pentecostalism Needs that may affect No Treatment Plan Would you allow our hospital technical mgr to No meet you for the purpose of spiritual/ emotional support? Claims Adjuster to contact place of gnosticist No Teaching: Wound Center *Welcome to the Wound Center -Person Taught Patient -Teaching Method Discussion -Response to teaching Verbalize understanding CHERYL - Nurse 1 - General Ulcer Measurement Start: 04/27/23 10:45 Freq: Status: Active Protocol: Activity Type Activity Date Activity User E-sign Co-sign Detail Recorded Client Recorded Date Recorded By Document 04/27/23 10:48 RB Desktop 04/27/23 10:54 RB 04/27/23 10:48 Wound Center Nurse 1 1. R chest (rib cage) -Combined with other wound No -Current Size (cm) - Length 0.5 -Current Size (cm) - Width 1 -Current Size (cm) - Depth 0.1 -Total Square Cm 0.5 -Photo Taken Yes -Tunneling No -Undermining/Tunneling No -Circular Undermining No -Exudate Amt Medium -Exudate Type Serosanguineous -Wound Margin Distinct, Outline Attached -Granulation Amt Medium (34-66%) -Granulation Quality [place] -Slough/Fibrin Yes -Necrosis Amt Medium (34-66%) -Necrotic Tissue Type Adherent Slough -Structure Exposed N/A -Texture (Sybil-wound Skin Appearance) Assessed -Moisture (Sybil-wound Skin Appearance) Assessed -Color (Sybil-wound Skin Appearance) Assessed -Temperature (Sybil-wound Skin No Abnormality Appearance) (Pt Warm) -Tenderness on Palpation (Sybil-wound No Skin Appearance) -Ulcer Cleansing Wound Cleanser -Foul Odor after Cleansing No -Anesthetic Used 5% Lidocaine Gel HCERYL - Nurse 2 - General Ulcer CM Notes Start: 04/27/23 10:45 Freq: Status: Active Protocol: Activity Type Activity Date Activity User E-sign Co-sign Detail Recorded Client Recorded Date Recorded By Document 04/27/23 11:13 Desktop 04/27/23 11:19 04/27/23 11:13 Wound Center Nurse 2 -Time 11:13 -Correct Patient Yes -Correct Side, Site, Position Yes -Correct Procedure Yes -Procedure Performed Yes -Type of Procedure Debridement -Clinical Debridement Subcutaneous -Tissue Removed Subcutaneous -Post Debridement (cm) - Length 0.4 -Post Debridement (cm) - Width 0.9 -Post Debridement (cm) - Depth 0.1 -Total Square (Post) (cm) 0.36 -Area of Debridement (cm) - Length 0.4 -Area of Debridement (cm) - Width 0.9 -Total Square (Area) (cm) 0.36 -Wound/Ulcer Outcome Not Healed -Ulcer Cleansing Rinsed/ Irrigated with Saline -Foul Odor after Cleansing No -Bioengineered Tissue No -Bleeding Controlled with Pressure -Treatment Response Procedure Tolerated Well -Debridement - Subq, 1st 20sq cm Yes Pain Scale: 0-10 Numeric Is Patient Pain Free? Yes - Nurse 3 - General Ulcer D/C NN Start: 04/27/23 10:45 Freq: Status: Active Protocol: Activity Type Activity Date Activity User E-sign Co-sign Detail Recorded Client Recorded Date Recorded By Document 04/27/23 12:27 [id number] 04/27/23 12:28 RB 04/27/23 12:27 Wound Care Center Nurse 3 1. R chest (rib cage) -Ulcer Cleansing Rinsed/ Irrigated with Saline -Primary Dressing Applied Mepilex Border -Other Dressing hydrogel -Mepilex Border 4 Treatment Response Procedure Tolerated Well Pain Scale: 0-10 Numeric Is Patient Pain Free? Yes Teaching: Wound Center Dressing Your Wound -Person Taught Patient -Teaching Method Discussion, Demonstration -Response to teaching Verbalize understanding WC - Visit Discharge Discharge Condition Stable Ambulatory Status Ambulatory Transportation Private Auto Medication Reconcilliation completed & No provided to patient/care provider Clinical Summary of Care Provided Yes Assessment/Plan Assessment/Plan (1) Open wound of right chest wall: CODE(S): S21.101A - Unspecified open wound of right front wall of thorax without penetration into thoracic cavity, initial encounter QUALIFIERS: Encounter type: subsequent encounter Qualified Code(s): S21.101D - Unspecified open wound of right front wall of thorax withoutpenetration into thoracic cavity, subsequent encounter (2) Nonhealing nonsurgical wound with fat layer exposed: CODE(S): T14.8XXA - Other injury of unspecified body region, initial encounter (3) Obesity: CODE(S): E66.9 - Obesity, unspecified QUALIFIERS: Obesity type: unspecified obesity type Obesity classification: adult class 2 (BMI 35 - 39.9) Serious obesity comorbidity presence: without serious comorbidity Body mass index: BMI 39.0-39.9 QualifiedCode(s): E66.9 - Obesity, unspecified; Z68.39 - Body mass index [BMI] 39.0-39.9, adult (4) COPD (chronic obstructive pulmonary disease): CODE(S): J44.9 - Chronic obstructive pulmonary disease, unspecified QUALIFIERS: COPD type: unspecified COPD Qualified Code(s): J44.9 - Chronic obstructive pulmonary disease, unspecified PLAN: Plan Debridement performed today in clinic as annotated above. At home wound-care instructions: Apply hydrogel and foam dressing every other day. Keep dressing clean and dry. Off-loading: The patient was instructed to avoid pressure and friction on the affected areas. Reposition every 2 hours at minimum. Avoid prolonged standing and/or dangling of legs. When seated, feet should be elevated at chest level. Frequent ambulation is encouraged. Diet: Patient encouraged to increase protein intake while taking caution to avoid high carbohydrate and/or sugar intake. Labs/cultures/imaging: Follow-up: Return in 1 week for wound care follow up. Return sooner or report to the emergency room should symptoms worsen, or new symptoms arise. Note: [employer] speech recognition home visits nurse software was used to create portions of this document. Sound-alike and misspelled words, as well as other home visits nurse errors may be contained in the documentation. 04/27/23 1535 <Electronically signed by Mari Veliz DO> Cosigner Signature (if applicable): CC: ~ Signed [facility] Work Phone: 1(381) 504-590409-15-2023 History of Present illness Narrative* Chanel Martinez APRN.DYNAMICS AX CONSULTANT - 04/06/2023 10:06 AM EDT Images from the original note were not included. [facility] - OUTPATIENT THORACIC SURGERY CLINIC NOTE PT NAME: [facility] NO: [id number] THORACIC SURGEON: Jeanne Perez M.D. DATE OF SERVICE: April 06, 2023 PRINCIPAL DX: Right empyema (streptococcus anginosus) SURGICAL HX: 03/15/2023: Right VATS converted to right thoracotomy decortication and washout Surgical Pathology: FINAL DIAGNOSIS A - PLEURAL FLUID RIGHT Negative for malignant cells. Marked acute inflammation. REASON FOR VISIT: First post-operative visit HPI: rAt Blue is a 67 year old female with history of T2DM, HT, PE/DVTs on coumadin with IVC filter. She presented with fevers and shortness of breath. CT was concerning for empyema. She underwent R VATS converted to R thoracotomy decortication and washout (03/15) with Dr Jeanne Ellison. 2 chest tube removed (03/21 and 03/22). Dischagred 03/24 on Augmentin until 04/11/23. PHYSICAL EXAM: VITAL SIGNS: BP 172/83 Pulse 83 Temp 36.4 C (97.5 F) (Oral) Resp 14 Ht 165.1 cm (5' 5) Wt 109.8 kg (242 lb) SpO2 96% BMI 40.27 kg/m Room air Incision location: Right Thoracoport sites, Right Thoracotomy Incision, and Right Old chest tube sites Incision Assessment: Well approximated and no drainage, swelling, erythema or warmth Drain/Tubes: N/A GENERAL: well appearing, alert, no acute distress, well-hydrated, well nourished HEENT: normocephalic, midline, anicteric sclera. LUNGS: clear to auscultationon left, diminished right base, no wheezing or rhonchi HEART: RRR without murmur ABDOMEN: Soft, non-tender, non distended. No masses EXTREMITIES: No clubbing, cyanosis or edema. MUSCULOSKELETAL: Muscular strength intact. SKIN: turgor normal, no suspicious rashes or lesions NEURO: Gait slow/halted Sensation grossly intact. IMAGING/TESTS: CXR 04/06/23: PENDING INTERVAL HISTORY: Art Blue returns for first post op visit. She has been doing fairly well. She has had adequate pain management with the use of occasional [place]. Does not need a refill at this time. She denies any SOB, fevers, chills. Tolerating Augmentin. No c/o nausea or vomiting. She has been toleratingdiet and has been moving her bowels regularly. Incisions are healing well and sutures and zeina are removed. We have discussed increasing aerobic activity daily, as well as maintaining weight restriction of 5-10 lbs for the first month after surgery. We have also discussed no driving while on narcotics. BP is elevated. She has been off HTN medication since hospitalization. She will discuss with her PCP to hopefully get her back on medication. She also has a follow up with nephrology 04/23/23 CXR shows residual right effusion. Pathology has been reviewed, which showed inflammation. She will get a CXR in [place] in 4 weeks and will have a phone visit the next day. IMPRESSION: 67 year old female s/p Right VATS converted to right thoracotomy decortication and washout 03/15/23 for right empyema PLAN: - CXR in [place] in 4 weeks and will have a phone visit the next day. - Complete Augmentin as prescribed Chanel Martinez APRN.ERAN documented [facility] History of Present illness Narrative* Ericka Pina RT(R) - 04/06/2023 9:30 AM EDT Radiology Service Progress Note PATIENT NAME: Art Blue DATE OF SERVICE: April 06, 2023 TIME: 9:18 AM PATIENT IDENTITY VERIFICATION COMPLETED USING TWO (2) IDENTIFIERS: Name and Date of confirmedby patient verbally. FALL SCREENING: Has the patient had 2 falls in the last year or 1 fall with injury or currently using an Ambulatory Assistive Device (Walker, Cane, Wheelchair, Crutches, etc.)? No PATIENT GENDER DATA: Female. status: : No status: NO. PATIENT RELEVANT IMPLANT DATA REVIEWED: Not Applicable RADIOLOGY DEPARTMENT: General X-ray: Exam(s) Completed: Chest X-Ray PERIPHERAL IV DATA: Not applicable SIGNED BY: RT Lisandro(R) April 06, 2023 9:18 AM documented in this encounterGuernsey [facility]08-01-2023 Miscellaneous Notes* Telephone Encounter - Willard Pearl - 02/20/2023 3:06 PM EDT Reason for call: Ms Rivas called and she would like to schedule an appointment with Contact Name (If not the pt): Evelyn (Pulm Office) Home and cell number: [phone] Diagnosis: Hypoxemia; pneumonia; R. Pleural Effusion Willard Boudreaux documented in this encounterGuernsey [facility]07-12-2023 Discharge summary Author Isabella Garcia [facility] January 31, 2023 2:00pm Note Date/Time January 31, 2023 2:00 pm [facility] Physical Therapy [facility] [address] [place] [address] / REHABILITATION SERVICES DISCHARGE SUMMARY MR#: [id number] Acct: [id number] Name: ART BLUE Rep #: [id number] : 1955 67 From: Isabella Garcia PT, Cert. MDT Referring Dr.: Dr. JoseR amon Terry, DO Status: REG RCR Insurance: MEDICARE PART A B [facility] Patient Information Patient Information: ART BLUE was seen in my office for initial evaluation on 12/27/22. The following Plan of Care was established for this patient: POC Established Initial Frequency: 2-3x /Week Initial Duration: 4-6 Weeks Anticipated Interventions Patient/Client Instruction: Educate patient on: Condition, Plan of Care and Risk Factors For the Purpose of:: To improve self management Therapeutic Exercise to Include: Strength training, Body mechanics, Postural training, Flexibilty training, Gait and locomotor training, Neuromotor development, In an aquatic setting and Dynamic Lumbar Stabilization For the Purpose of:: To decrease pain, To increase ROM, To improve muscle performance and motor function, To increase tolerance to activity/condition/position, To improve ability of physical actions for home/community/work/leisure and To improve gait and locomotor functions Last Seen Last Seen: This patient was last seen in our office . Pertinent comments regarding their Physical therapy will appear below: PATIENT CALLED TO CANCEL REMAINING PT DUE TO PNEUMONIA. SHE APPEARED TO BE IMPROVING WITH PT PRIOR TO GETTING SICK. At this point I will be discontinuing this patient from physical therapy. I would be happy to see this patient again in the future if found appropriate by the physician. Thank you! Isabella Garcia, PT, Cert MDT Balance/Gait/Functional tests Balance/Special Test Scores Lower Extremity Functional Score: 34 TUG Test Time Seconds: 23.70 Tug Test: 20-30sec.=variable mobility 30 Second Chair Rise Test Seconds: 5 <Electronically signed by Isabella Garcia PT, Cert. MDT> 01/31/23 1400 CC: Dr. Jose Ramon Terry DO; Deysi Castro DO ~ [facility] Work Phone: 1(176) 421-540307-06-2023 Discharge summary Author Neymar Peraltahutch[facility] hospitalryan [facility] January 25, 2023 1:18pm Note Date/Time January 25, 2023 1:06p [facility] Medical Records Department [address] [place] [id number] Instructions for Home/Discharge Instructions 01/25/23 1303 MR#: [id number] Acct: [id number] Name: ART BLUE Rep #:[id number] : 1955 67 From: Neymar Masters DO PCP: Deysi Castro DO Status:ADM I N Discharge Instructions Diet Discharge Diet: 1800 Calorie Control Diet Activity Discharge Activity: Return to Normal Activity Weight Bearing Status: Full weight bearing Follow Up Care Test Results: Test results from this visit will be discussed in further detail at your follow- up appointment, if applicable. Discharge Plan Admission Admit Date/Time: 01/23/23 08:02 Primary Reason for Your Visit: hypoxia, right oleural effusion Attending Provider: Neymar Masters Primary Care Provider: Deysi Castro Consulting Providers: Kenney Vizcarra Instructions Patient Instructions: SARIAH RN Thoracentesis Dc Additional Instructions / Restrictions: Oxygen at 3 L/min via nasal cannula while ambulating Oxygen not needed at rest Discharge Orders/Prescriptions Prescriptions: New tramadol 50 mg Tablet 50 mg PO Q6H PRN (Reason: Pain Score 6-10) Qty: 25 0RF cefdinir 300 mg capsule 300 mg PO BID Qty: 15 0RF Rx Instructions: start in the evening of 01/25/23 Continued buspirone 5 mg tablet 5 mg PO TID PRN (Reason: anxiety) warfarin 10 mg tablet 10 mg PO SUTUTHFRSA metformin 1,000 mg tablet 500 mg PO BID calcium carbonate-vitamin D3 [Calcium 600 with Vitamin D3] 600 mg(1,500mg) -500 unit capsule 1 cap PO BID gabapentin 300 mg capsule 300 mg PO BID Patient Comments: TAKE 1 CAPSULE TWICE DAILY FOR 28 DAYS ropinirole 2 mg tablet 2 mg PO QHS Qty: 90 1RF baclofen 10 mg tablet 10 mg PO TID PRN (Reason: restless legs) Qty: 30 5RF Hold Instructions: not taking venlafaxine 75 MG tablet 75 mg PO BID Patient Comments: ANXIETY/DEPRESSION trazodone 50 MG tablet 50 mg PO QHS Patient Comments: INSOMINIA cyanocobalamin (vitamin B-12) 500 MCG tablet 500 mcg PO DAILY@0800 Patient Comments: SUPPLEMENT ferrous sulfate 325 MG tablet 325 mg PO BID Patient Comments: SUPPLEMENT omeprazole 20 MG capsule 20 mg PO BID Patient Comments: ACID REFLUX multivitamin with folic acid 1 TABLET tablet 1 tab PO DAILY Patient Comments: SUPPLEMENT biotin 10,000 mcg capsule 10,000 mcg PO DAILY Patient Comments: SUPPLEMENT warfarin [Jantoven] 5 mg tablet 7.5 mg PO MOWE lisinopril-hydrochlorothiazide 20-25 mg tablet 1 tab PO DAILY meclizine 25 mg tablet 25 mg PO BID PRN (Reason: dizziness) Qty: 60 3RF Discontinued doxycycline monohydrate 100 mg capsule 100 mg PO BID Qty: 20 0RF Patient Comments: 7 DAYS REMAINING IN 10 DAY COURSE PER PT Referrals / Follow Up: Deysi Castro DO [Primary Care Provider] - In 1 Week Disposition Disposition (needs filled in before D/C Order can be placed): Home, Self Care 01/25/23 1318<Electronically signed by Neymar Masters DO>Neymar Masters DO CC: Dr. Kenney Vizcarra MD; Deysi Castro DO ~ Signed [facility] Work Phone: 1(997) 417-231407-05-2023 Progress note Author Kenney Vizcarra [facility] January 24, 2023 9:07am Note Date/Time January 24, 2023 9:07a [facility] Medical Records Department [address] [place] [address] Progress Note - Hospitalist 01/24/23905 MR#: [id number] Acct: [id number] Name: ART BLUE Rep #:[id number] : 1955 67 From: Kenney castillo MD PCP: Deysi Castro, DO Status:ADM I N Location: [place] [address] Subjective Subjective Doing well, still having chest pain though the Tylenol has helped some Objective Data Objective Data Vital Signs: Vital Signs Temp Pulse Resp BP Pulse Ox O2 Del Method O2 Flow Rate 98.8 F 88 20 H 149/74 H 94 Nasal Cannula 2 01/24/23 08:03 01/24/23 08:03 01/24/23 08:03 01/24/23 08:03 01/24/23 08:03 01/24/23 08:03 01/24/23 08:03 Oxygen Flow Rate (L/min) 2 Oxygen Delivery Method Nasal Cannula Weight: 246 lb 14.684 oz Body Mass Index (BMI) 41.1 Intake & Output: Intake and Output for Last 24 Hours 01/23/23 01/24/23 01/25/23 03:59 03:59 03:59 Intake Total 2385 / 2385 60 / 60 Balance 2385 / 2385 60 / 60 Lab / Micro Data 01/24/23 04:40 01/24/23 04:40 Labs: Laboratory Results - last 24 hr 01/23/23 11:25: POC Glucose 282 H 01/23/23 17:10: POC Glucose 101 01/23/23 20:59: POC Glucose 161 H 01/24/23 04:40: WBC 9.9, RBC 3.41 L, Hgb 10.4 L, Hct 32.7 L, MCV 95.9, MCH 30.5,MCHC 31.8 L, RDW Std Deviation 48.3 H, RDW Coeff of Les 13.6, Plt Count 328, MPV9.2, Immature Gran % (Auto) 0.600, Neut % (Auto) 71.1 H, Lymph % (Auto) 15.5 L, Kimball % (Auto) 8.9, Eos % (Auto) 3.3, Baso % (Auto) 0.6, Absolute Neuts (auto) 7.1, Absolute Lymphs (auto) 1.54, Nucleated RBC % 0, PT 22.9 H, INR 2.0, Sodium 138, Potassium 4.3, Chloride 107, Carbon Dioxide 29.0, Anion Gap 2 L, BUN 14, Creatinine 0.68, Estim Creat Clear Calc 49.80, Est GFR (MDRD) Af Amer 112, Est GFR (MDRD) Non-Af 93, BUN/Creatinine Ratio 20.7 H, Glucose 144 H, Calcium 8.3 L,Lactate Dehydrogenase 159 01/24/23 06:30: POC Glucose 150 H Micro: Microbiology 01/23/23 05:45 Nasal Secretion SARS-CoV-2 & FLU Antigen (Rapid) - Final Physical Exam Narrative General: Alert, Oriented x3, Cooperative, No apparent distress HEENT: Atraumatic, PERRLA, EOMI, Normocephalic Oral: Moist Mucosa Neck: Supple, No JVD Lungs: Diminished, Normal air movement, No rhonchi, No wheeze, No rales Cardiovascular: Regular rate, Regular Rhythm, Normal S1, Normal S2, No murmurs Abdomen: Soft, Non Tender, Non-Distended, No Hepato-splenomegaly Extremities: No edema, Capillary Refill Less than 3 Seconds Skin: No rashes, No breakdown Musculoskeletal: No Tenderness to Palpation of Joints or Extremities Neurological: Cranial nerves II-XII grossly intact, Motor Exam 5/5 strength throughout, Sensory exam intact to light touch and pain Psych/Mental Status: Normal Affect, Appropriate Assessment & Plan Assessment/Plan (1) Pneumonia: PLAN: Plan 1. Community-acquired pneumonia with pleural effusion possible loculation ?Plan for thoracentesis today, INR is 2.0 after the 5 of vitamin K yesterday ? We will place her on cefepime and azithromycin ? She has had 2 CTAs in the last couple of days we will monitor renal function, both CTAs are negative for PEs given that she is therapeutic on her INR 2. History of DVT -She has an IVC filter in place can continue with Coumadin after thoracentesis 3. HTN -Blood pressures are stable -Continue with her lisinopril and hydrochlorothiazide 4. Iron deficiency anemia -Hemoglobin is stable at 10.4 -Continue with home iron 5. GERD -Stable -Continue with home PPI 6. Depression/anxiety -Stable -Continue with Effexor and trazodone, as well as BuSpar 7. DM2 ? We will hold metformin ? Sliding scale insulin ? Accu-Cheks ACHS ? We will monitor and make adjustments as necessary DVT: Therapeutic INR Charges/Coding Visit Charges Inpatient E&M: 40235 Subs Hosp L2 01/24/23 0907 <Electronically signed by Kenney Vizcarra MD> Cosigner Signature (if applicable): CC: ~ Signed [facility] Work Phone: 1(197) 736-476007-04-2023 History and physical note Author Kenney Vizcarra [facility] January 23, 2023 12:08pm Note Date/Time January 23, 2023 11:02 am [facility] Medical Records Department [address] [place] [id number] H&P Exam - Hospitalist 01/23/23 1058 MR#: [id number] Acct: [id number] Name: ART BLUE Rep #:[id number] : 1955 67 From: Kenney castillo MD PCP: Deysi Castro DO Status:ADM I NO Location: [facility] [place] NK263-1 HPI - General General Date of Admission: 01/23/23 HPI Narrative ART BLUE, is a 67 F who presents to the hospital with some back pain. She was recently in the hospital and got a prescription for doxycycline secondary to what appears to be community-acquired pneumonia. She is taken about 3 days of this antibiotic and continues to have some back pain so she represented to the hospital. She did not have any hypoxia as the lowest her oxygen saturations were 88% while on room air. We will broaden her antibiotics given that doxycycline alone is not often successful. Of note she also had an interval enlargement of a right pleural effusion with possible loculation. [facility] Medical History Anxiety and depression Diabetes Gastric ulcer GERD (gastroesophageal reflux disease) Glaucoma High cholesterol History of DVT (deep vein thrombosis) History of kidney stones History of pneumonia History of UTI HTN (hypertension) Neuropathy Home Medications cyanocobalamin (vitamin B-12) 500 mcg tablet 500 mcg PO DAILY@0800 SUPPLEMENT 02/11/14 [History Last Taken 01/22/23] ferrous sulfate 325 mg (65 mg iron) tablet 325 mg PO BID SUPPLEMENT 02/11/14 [History Last Taken 01/22/23] multivitamin with folic acid 400 mcg tablet 1 tab PO DAILY SUPPLEMENT 02/11/14 [History Last Taken 01/22/23] omeprazole 20 mg capsule,delayed release 20 mg PO BID REFLUX 02/11/14 [History Last Taken 01/22/23] trazodone 50 mg tablet 50 mg PO QHS SLEEP 02/11/14 [History Last Taken 01/22/23] venlafaxine 75 mg tablet 75 mg PO BID DEPRESSION 02/11/14 [History Last Taken 01/22/23] biotin 10,000 mcg capsule 10,000 mcg PO DAILY HAIR LOSS 05/30/21 [History Last Taken 01/22/23] buspirone 5 mg tablet 5 mg PO TID PRN anxiety 05/30/21 [History Last Taken 01/22/23] calcium carbonate 600 mg-vitamin D3 12.5 mcg (500 unit) capsule (Calcium 600 with Vitamin D3) 1 cap PO BID 05/30/21 [History Last Taken 01/22/23] gabapentin 300 mg capsule 300 mg PO BID 05/30/21 [History Last Taken 01/22/23] metformin 1,000 mg tablet 500 mg PO BID 05/30/21 [History Last Taken 01/22/23] warfarin 10 mg tablet 10 mg PO SUTUTHFRSA 05/30/21 [History Last Taken 01/21/23] baclofen 10 mg tablet 10 mg PO TID PRN restless legs #30 tabs 10/30/22 [Rx Last Taken Unknown] ropinirole 2 mg tablet 2 mg PO QHS #90 tabs 10/30/22 [Rx Last Taken 01/22/23] meclizine 25 mg tablet 25 mg PO BID PRN dizziness #60 tabs 12/26/22 [Rx Last Taken 01/22/23] doxycycline monohydrate 100 mg capsule 100 mg PO BID #20 CAPSULES 01/20/23 [Rx Last Taken 01/22/23] lisinopril 20 mg-hydrochlorothiazide 25 mg tablet 1 tab PO DAILY BP 01/23/23 [History Last Taken 01/22/23] warfarin 5 mg tablet (Jantoven) 7.5 mg PO MOWE 01/23/23 [History Last Taken 01/22/23] Allergy/AdvReac Type Severity Reaction Status Date / Time amoxicillin Allergy Mild rash Verified 01/23/23 03:07 atorvastatin AdvReac Mild myalgiias Verified 01/23/23 03:07 levofloxacin [From Levaquin] AdvReac Unknown Nausea Verified 01/23/23 03:07 Family History Mother Heart disease Hypertension Father Heart disease CVA (cerebral vascular accident) Brother Cancer Surgical History History of carpal tunnel release of both wrists History of colonoscopy (~2014) History of dilation and curettage History of [place]-en-Y gastric bypass History of umbilical hernia repair Status post biopsy of thyroid gland (~08/2019) Status post panniculectomy Social History household members: spouse housing: house Smoking Status: Former smoker Tobacco: How many years used: 40 Electronic Cigarette Use: not used how long ago did patient quit smoking: about a year and half ago second hand exposure: No alcohol intake: never substance use type: does not use what type of physical activity do you participate in: none do you feel safe at home: Yes ROS Constitutional Constitutional: Denies chills, fatigue, fever(s) or malaise Eyes Eyes: Denies blurry vision ENT HEENT: Denies headache(s) or nasal discharge Cardiovascular Cardiovascular: Denies chest pain, dyspnea on exertion or syncope Respiratory/Chest Respiratory/Chest: Reports cough and shortness of breath at rest; Denies shortness of breath with exertion Gastrointestinal Gastrointestinal: Denies constipation, diarrhea, nausea or vomiting Genitourinary Genitourinary: Denies dysuria Neurologic Neurologic: Denies focal weakness, numbness or tremor(s) Psychiatric Psychiatric: Denies anxiety or depression Vital Signs Vital Signs Vital Signs: 01/23/23 03:03 01/23/23 03:03 01/23/23 03:06 Temperature 100.5 F H 100.5 F H Temperature Source Oral Temporal Pulse Rate 95 93 Respiratory Rate 20 H 20 H Respiratory Effort Short of Breath Respiratory Depth Respiratory Pattern Blood Pressure 171/70 H 171/70 H Blood Pressure Mean 103 103 Pulse Ox 92 91 Oxygen Delivery Method Oxygen Flow Rate (L/min) 01/23/23 05:48 01/23/23 08:39 01/23/23 09:35 Temperature 98 F Temperature Source Oral Pulse Rate 81 84 Respiratory Rate 15 17 Respiratory Effort Normal Non-Labored Respiratory Depth Normal Respiratory Pattern Normal Blood Pressure 152/57 H 138/79 H Blood Pressure Mean 88 98 Pulse Ox 88 95 98 Oxygen Delivery Method Room Air Nasal Cannula Oxygen Flow Rate (L/min) 2 Weight Weight: 246 lb 14.684 oz Body Mass Index (BMI) 41.1 Physical Exam Narrative General: Alert, Oriented x3, Cooperative, No apparent distress HEENT: Atraumatic, PERRLA, EOMI, Normocephalic Oral: Moist Mucosa Neck: Supple, No JVD Lungs: Diminished, Normal air movement, No rhonchi, No wheeze, No rales Cardiovascular: Regular rate, Regular Rhythm, Normal S1, Normal S2, No murmurs Abdomen: Soft, Non Tender, Non-Distended, No Hepato-splenomegaly Extremities: No edema, Capillary Refill Less than 3 Seconds Skin: No rashes, No breakdown Musculoskeletal: No Tenderness to Palpation of Joints or Extremities Neurological: Cranial nerves II-XII grossly intact, Motor Exam 5/5 strength throughout, Sensory exam intact to light touch and pain Psych/Mental Status: Normal Affect, Appropriate Results Lab / Micro Data 01/23/23 03:40 01/23/23 03:40 Labs: Laboratory Results - last 24 hr 01/23/23 03:40: WBC 9.8, RBC 3.38 L, Hgb 10.4 L, Hct 32.1 L, MCV 95.0, MCH 30.8,MCHC 32.4, RDW Std Deviation 47.4 H, RDW Coeff of Les 13.6, Plt Count 293, MPV 9.4, Immature Gran % (Auto) 0.700, Neut % (Auto) 77.1 H, Lymph % (Auto) 11.3 L, Kimball % (Auto) 8.5, Eos % (Auto) 1.9, Baso % (Auto) 0.5, Absolute Neuts (auto) 7.5, Absolute Lymphs (auto) 1.10, Nucleated RBC % 0, PT 31.5 H, INR 3.0, APTT 80.7 H, Sodium 135 L, Potassium 3.9, Chloride 103, Carbon Dioxide 27.0, Anion Gap 5, BUN 21 H, Creatinine 0.86, Estim Creat Clear Calc 57.90, Est GFR (MDRD) Af Amer 85, Est GFR (MDRD) Non-Af 71, BUN/Creatinine Ratio 24.6 H, Glucose 258 H, Lactic Acid 1.6, Calcium 8.4 L, Total Bilirubin 0.20, Direct Bilirubin 0.12, AST 9 L, ALT 15, Alkaline Phosphatase 67, Total Protein 6.8, Albumin 2.4 L, Globulin 4.4 H Micro: Microbiology 01/23/23 05:45 Nasal Secretion SARS-CoV-2 & FLU Antigen (Rapid) - Final Radiology Impression Chest CTA 01/23/23 03:29 IMPRESSION: Negative for PE. Enlarging right pleural effusion with increasing right lower lobe infiltrate due to compressive atelectasis and possible pneumonia. Groundglass opacities within the left upper lobe, primarily central, most likely due to developing pneumonia, possibly Covid pneumonia. Interval development of mild right hilar adenopathy. Electronically Signed: Manuel Bassett MD at 5:20 EDT , Assessment & Plan Assessment/Plan (1) Pneumonia: PLAN: Plan 1. Community-acquired pneumonia with pleural effusion possible loculation ? We will schedule for thoracentesis and give her vitamin K since her INR is 3.0with a recheck in the morning for possible procedure ? We will place her on cefepime and azithromycin ? She has had 2 CTAs in the last couple of days we will monitor renal function, both CTAs are negative for PEs given that she is therapeutic on her INR 2. History of DVT -She has an IVC filter in place can continue with Coumadin 3. HTN -Blood pressures are stable -Continue with her lisinopril and hydrochlorothiazide 4. Iron deficiency anemia -Hemoglobin is stable at 10.4 -Continue with home iron 5. GERD -Stable -Continue with home PPI 6. Depression/anxiety -Stable -Continue with Effexor and trazodone, as well as BuSpar 7. DM2 ? We will hold metformin ? Sliding scale insulin ? Accu-Cheks ACHS ? We will monitor and make adjustments as necessary DVT: Therapeutic INR 75 minutes was spent on direct patient care as well as chart review and collaboration with colleagues Charges/Coding Visit Charges Inpatient E&M: 07306 Init Hosp L3 01/23/23 1208 <Electronically signed by Kenney Vizcarra MD> Cosigner Signature (if applicable): CC: Dr. Kenney Vizcarra MD; Deysi Castro DO~ Signed [facility] Work Phone: [phone]) 723-940207-04-2023 Discharge summary Author Max Lara [facility] January 23, 2023 8:12am Note Date/Time January 23, 2023 7:39a [facility] Medical Records Department [address] [place] [address] Emergency Department Summary 01/23/23 MR#: [id number] Acct: [id number] Name: ART BLUE Rep #:[id number] : [id number] 67 From: Max Lara DO PCP: Deysi Castro DO Status:REG E R Location: ED HPI History of Present Illness Chief Complaint: Shortness of Breath Informant: patient and spouse/S.O. Narrative Narrative: Patient is a 67-year-old female with past medical history of DVT and PE currently on Coumadin. She states on she began developing right-sided back pain/rib pain that was worse with inspiration. She states that she has been taking her blood thinner as directed and that there was no trauma or excessive activity. She states that she then developed a fever and with concernthat she had developed a repeat blood clot came to the hospital on Sunday. She had a CT scan at that time which showed no PE but pneumonia and she was started on doxycycline and discharged home. Patient states she has had persistent low-grade fever with persistent and worsening right-sided chest/back pain that is worse with inspiration and increased shortness of breath and therefore returns for repeat evaluation. Patient denies any history of lung disorder or need for supplemental oxygen [facility] Medical History Anxiety and depression Diabetes Gastric ulcer GERD (gastroesophageal reflux disease) Glaucoma High cholesterol History of DVT (deep vein thrombosis) History of kidney stones History of pneumonia History of UTI HTN (hypertension) Neuropathy Home Medications cyanocobalamin (vitamin B-12) 500 mcg tablet 500 mcg PO DAILY@0800 SUPPLEMENT 02/11/14 [History Last Taken 01/22/23] ferrous sulfate 325 mg (65 mg iron) tablet 325 mg PO DAILY@0800 SUPPLEMENT 02/11/14 [History Last Taken 01/22/23] multivitamin with folic acid 400 mcg tablet 1 tab PO DAILY SUPPLEMENT 02/11/14 [History Last Taken 01/22/23] omeprazole 20 mg capsule,delayed release 20 mg PO BID REFLUX 02/11/14 [History Last Taken 01/22/23] trazodone 50 mg tablet 50 mg PO QHS SLEEP 02/11/14 [History Last Taken 01/22/23] venlafaxine 75 mg tablet 75 mg PO BID DEPRESSION 02/11/14 [History Last Taken 01/22/23] biotin 10,000 mcg capsule 10,000 mcg PO DAILY HAIR LOSS 05/30/21 [History Last Taken 01/22/23] buspirone 5 mg tablet 5 mg PO TID PRN anxiety 05/30/21 [History Last Taken 01/22/23] calcium carbonate 600 mg-vitamin D3 12.5 mcg (500 unit) capsule (Calcium 600 with Vitamin D3) 1 cap PO BID 05/30/21 [History Last Taken 01/22/23] gabapentin 300 mg capsule 300 mg PO BID 05/30/21 [History Last Taken 01/22/23] metformin 1,000 mg tablet 1,000 mg PO DAILY 05/30/21 [History Last Taken 01/22/23] warfarin 10 mg tablet 10 mg PO SUTUTHFRSA 05/30/21 [History Last Taken 01/21/23] baclofen 10 mg tablet 10 mg PO TID PRN restless legs #30 tabs 10/30/22 [Rx Last Taken Unknown] ropinirole 2 mg tablet 2 mg PO QHS #90 tabs 10/30/22 [Rx Last Taken 01/22/23] meclizine 25 mg tablet 25 mg PO BID PRN dizziness #60 tabs 12/26/22 [Rx Last Taken 01/22/23] doxycycline monohydrate 100 mg capsule 100 mg PO BID #20 CAPSULES 01/20/23 [Rx Last Taken 01/22/23] lisinopril 20 mg-hydrochlorothiazide 25 mg tablet 1 tab PO DAILY BP 01/23/23 [History Last Taken 01/22/23] warfarin 5 mg tablet (Jantoven) 7.5 mg PO MOWE 01/23/23 [History Last Taken 01/22/23] Allergy/AdvReac Type Severity Reaction Status Date / Time amoxicillin Allergy Mild rash Verified 01/23/23 03:07 atorvastatin AdvReac Mild myalgiias Verified 01/23/23 03:07 levofloxacin [From Levaquin] AdvReac Unknown Nausea Verified 01/23/23 03:07 Family History Mother Heart disease Hypertension Father Heart disease CVA (cerebral vascular accident) Brother Cancer Surgical History History of carpal tunnel release of both wrists History of colonoscopy (~2014) History of dilation and curettage History of [place]-en-Y gastric bypass History of umbilical hernia repair Status post biopsy of thyroid gland (~08/2019) Status post panniculectomy Social History household members: spouse housing: house Smoking Status: Former smoker Tobacco: How many years used: 40 Electronic Cigarette Use: not used how long ago did patient quit smoking: about a year and half ago second hand exposure: No alcohol intake: never substance use type: does not use what type of physical activity do you participate in: none do you feel safe at home: Yes ROS ROS ED Constitutional Constitutional ED: Reports fever(s); Denies chills ENT ENT ED: Denies sore throat Cardiovascular Cardiovascular: Reports chest pain; Denies palpitations or racing heartbeat Respiratory/Chest Respiratory/Chest: Reports cough and dyspnea Gastrointestinal Gastrointestinal: Denies abdominal pain, diarrhea, nausea or vomiting Genitourinary Genitourinary ED: Denies dysuria Musculoskeletal Musculoskeletal: Reports back pain; Denies myalgias Integumentary Denies rash Neurologic Neurologic: Denies headache(s) Hematologic/Lymphatic Hematologic/Lymphatic: Reports easy bleeding and easy bruising EXAM Physical Exam Const Vital Signs: 01/23/23 03:03 01/23/23 03:03 01/23/23 03:06 Temperature 100.5 F H 100.5 F H Temperature Source Oral Temporal Pulse Rate 95 93 Respiratory Rate 20 H 20 H Respiratory Effort Short of Breath Blood Pressure 171/70 H 171/70 H Blood Pressure Mean 103 103 Pulse Ox 92 91 Oxygen Delivery Method 01/23/23 05:48 Temperature Temperature Source Pulse Rate 81 Respiratory Rate 15 Respiratory Effort Blood Pressure 152/57 H Blood Pressure Mean 88 Pulse Ox 88 Oxygen Delivery Method Room Air Positive well nourished, well developed and obese General Appearance ED: well developed Nutritional Appearance: obese HEENT Reports moist mucous membranes HEENT Narrative: No tongue or lip swelling no oral lesions no airway edema or compromise Eyes PERRL and EOMs intact bilaterally General Eye ED: Negative for scleral icterus Neck supple and no JVD Chest Wall palpation of chest normal Resp Resp Narrative: Patient is tachypneic with shallow inspirations and splinting. Breath sounds are diminished on the right with faint crackles. No nasal flaring retractions or accessory muscle use noted however. Cardio regular rate and regular rhythm Rate: other Other Details: Radial pulses are plus 2 out of 4 bilaterally are equal and symmetric GI normal to inspection, nondistended, normoactive bowel sounds, non-tender, non-distended and no masses GI Narrative: No voluntary guarding or rigidity no pulsatile mass or fluid wave Auscultation: normoactive bowel sounds Palpation: soft Extremity normal to inspection Extremity Narrative: Negative Homans' sign bilaterally Neuro oriented x3 and CN's II-XII intact bilaterally Sensorium / Orientation: alert Psych mental status grossly normal Skin no rashes or lesions noted General Skin Exam: Negative for jaundice MDM MDM MDM Narrative Medical decision making narrative: Patient presented to the ER with low-grade fever and tachypnea and a pulse ox of88 to 90% on room air. She had previous history of DVT and PE and is currently on Coumadin but there was concern that she had a missed PE or pulmonary infarction from the previous day or potentially pneumothorax or worsening pneumonia or pleural effusion. A basic work-up was obtained and shows normal white count and lactic acid value. Her INR is therapeutic at 3. CTA revealed no PE or infarction but showed worsening pleural effusion and potential pneumonia. There is a concern this could be viral in nature based on the groundglass appearance so a rapid influenza and COVID test were obtained which were negative. As the patient desats to 88% at rest and does not have oxygen at home I do not feel she is safe to return home especially with her persistent pain and worsening symptoms and just a few days. Therefore medicine was contacted and after discussing the case they do agree to accept the patient at this time. They agree that symptoms could be viral in nature but as patient hasa possibility of failing outpatient antibiotic therapy they recommend she be given Rocephin and Zithromax in the ER. This plan of care was discussed with the patient and she is agreeable to it History & Record Review Discussion w/independent historian: Patient Lab Data Labs: Laboratory Results - last 24 hr 01/23/23 03:40 WBC 9.8 RBC 3.38 L Hgb 10.4 L Hct 32.1 L MCV 95.0 MCH 30.8 MCHC 32.4 RDW Std Deviation 47.4 H RDW Coeff of Les 13.6 Plt Count 293 MPV 9.4 Immature Gran % (Auto) 0.700 Neut % (Auto) 77.1 H Lymph % (Auto) 11.3 L Kimball % (Auto) 8.5 Eos % (Auto) 1.9 Baso % (Auto) 0.5 Absolute Neuts (auto) 7.5 Absolute Lymphs (auto) 1.10 Nucleated RBC % 0 PT 31.5 H INR 3.0 APTT 80.7 H Sodium 135 L Potassium 3.9 Chloride 103 Carbon Dioxide 27.0 Anion Gap 5 BUN 21 H Creatinine 0.86 Estim Creat Clear Calc 57.90 Est GFR (MDRD) Af Amer 85 Est GFR (MDRD) Non-Af 71 BUN/Creatinine Ratio 24.6 H Glucose 258 H Lactic Acid 1.6 Calcium 8.4 L Total Bilirubin 0.20 Direct Bilirubin 0.12 AST 9 L ALT 15 Alkaline Phosphatase 67 Total Protein 6.8 Albumin 2.4 L Globulin 4.4 H Radiography Diagnostic Testing: Clinical Impression(s) from Imaging Studies Chest CTA 01/23/23 03:29 IMPRESSION: Negative for PE. Enlarging right pleural effusion with increasing right lower lobe infiltrate due to compressive atelectasis and possible pneumonia. Groundglass opacities within the left upper lobe, primarily central, most likely due to developing pneumonia, possibly Covid pneumonia. Interval development of mild right hilar adenopathy. Electronically Signed: Manuel Bassett MD at 5:20 EDT , Discharge Plan Triage Chief Complaint: Shortness of Breath ED Provider: Max Lara Dx/Rx/DC Orders Clinical Impression: Pleural effusion, Hypoxia, Pneumonia Prescriptions: No Action buspirone 5 mg tablet 5 mg PO TID PRN (Reason: anxiety) warfarin 10 mg tablet 10 mg PO SUTUTHFRSA metformin 1,000 mg tablet 1,000 mg PO DAILY calcium carbonate-vitamin D3 [Calcium 600 with Vitamin D3] 600 mg(1,500mg) -500 unit capsule 1 cap PO BID gabapentin 300 mg capsule 300 mg PO BID Patient Comments: TAKE 1 CAPSULE TWICE DAILY FOR 28 DAYS ropinirole 2 mg tablet 2 mg PO QHS Qty: 90 1RF baclofen 10 mg tablet 10 mg PO TID PRN (Reason: restless legs) Qty: 30 5RF venlafaxine 75 MG tablet 75 mg PO BID Patient Comments: ANXIETY/DEPRESSION trazodone 50 MG tablet 50 mg PO QHS Patient Comments: INSOMINIA cyanocobalamin (vitamin B-12) 500 MCG tablet 500 mcg PO DAILY@0800 Patient Comments: SUPPLEMENT ferrous sulfate 325 MG tablet 325 mg PO DAILY@0800 Patient Comments: SUPPLEMENT omeprazole 20 MG capsule 20 mg PO BID Patient Comments: ACID REFLUX multivitamin with folic acid 1 TABLET tablet 1 tab PO DAILY Patient Comments: SUPPLEMENT biotin 10,000 mcg capsule 10,000 mcg PO DAILY Patient Comments: SUPPLEMENT doxycycline monohydrate 100 mg capsule 100 mg PO BID Qty: 20 0RF Patient Comments: 7 DAYS REMAINING IN 10 DAY COURSE PER PT warfarin [Jantoven] 5 mg tablet 7.5 mg PO MOWE lisinopril-hydrochlorothiazide 20-25 mg tablet 1 tab PO DAILY meclizine 25 mg tablet 25 mg PO BID PRN (Reason: dizziness) Qty: 60 3RF Primary Care Provider: Deysi Castro Referrals: Deysi Castro, DO [Primary Care Provider] - Disposition Disposition: Acute Care Hospital [facility] What to do if you have Problems For any increased pain, shortness of breath, bleeding, nausea or vomiting, chestpain, or any unexpected problems, contact your Primary Care Provider. Call [facility] ([phone]) or report to the closest Emergency Room. Call 911 if necessary. 01/23/23 0812 <Electronically signed by Max Lara DO> Cosigner Signature (if applicable): CC: Deysi Castro DO ~ Signed [facility] Work Phone: [phone] 234-148607-01-2023 History of Present illness Narrative* Sean Villalba, 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.[employer] CONSULTANT - 01/20/2023 11:15 AM EDT Subjective HPI Nontoxic-appearing female presents urgent care chief complaint shortness of breath dry cough pleuritic pain. Duration of symptoms 2 days. Associated symptoms listed above. Most prominent symptom today is pleuritic pain and cough. States she did have intermittent fever last night. No fever today. Presents today for evaluation. History of DVTs in the past. Is not on Coumadin due to recurrent clots.Does have a Abdiel filter. Denies any fever body aches chills productive cough hemoptysis nausea vomiting abdominal pain change in bowel or bladder habits. Past medical history prescription medication use and allergies reviewed. 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 Essential hypertension, benign 08/15/2010 GERD (gastroesophageal reflux disease) 03/14/2012 Hemorrhage of gastrointestinal tract, unspecified Hyperlipidemia LDL goal < 100 05/13/2014 Incisional hernia 02/12/14 Meningioma (HCC) 12/26/2017 12/26/17: 5 mm. 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) 06/15/2015 Type II or unspecified type diabetes mellitus without mention of complication, uncontrolled PAST SURGICAL HISTORY Procedure Laterality Date COLONOSCOPY 06/28/2022 repeat in 5 years ESOPHAGOGASTRODUODENOSCOPY TRANSORAL DIAGNOSTIC 05/27/2008 GASTRIC BYPASS 05/28/2006 IRIDOTOMY/IRIDECTOMY BY LASER 07/23/2004 bilat NEUROPLASTY &/TRANSPOS MEDIAN NRV CARPAL TUNNE 10/31/2013 Carpal tunnel decomp Left PAST SURGICAL HISTORY OF [place] PAST SURGICAL HISTORY OF 2015 panelectomy REPAIR INCISIONAL HERNIA 02/12/[address] Guerin ALLERGIES Augmentin [Amoxicillin-Pot Clavulanate], Bactrim [Sulfamethoxazole- Trimethoprim], Levofloxacin, and Lipitor [Atorvastatin Calcium] MEDICATIONS metFORMIN (GLUCOPHAGE) 500 mg tablet warfarin (COUMADIN) 5 mg tablet gabapentin (NEURONTIN) 300 mg capsule rOPINIRole (REQUIP) 0.5 mg tablet Take by mouth twice daily. busPIRone (BUSPAR) 5 mg tablet TAKE 1 TABLET BY MOUTH THREE TIMES DAILY NEEDED (ANXIETY). venlafaxine (EFFEXOR) 75 mg tablet Take 1 tablet by mouth twice daily. lisinopril-hydrochlorothiazide (PRINZIDE,ZESTORETIC) 10-12.5 mg per tablet Take 1 tablet by mouth once daily. traZODone (DESYREL) 50 mg tablet Take 1 tablet by mouth daily at bedtime. omeprazole (PRILOSEC) 20 mg capsule TAKE 1 CAPSULE TWICE A DAY 30 MINUTES BEFORE MEALS polyethylene glycol 3350 (MIRALAX) 17 gram/dose powder 17 g/8 oz water daily as needed for constipation COMPOUNDED PRESCRIPTION cpap supplies: DX: sleep apnea Biotin 10,000 mcg cap Take by mouth. Ferrous Sulfate 325 mg (65 mg Iron) ORAL tablet Take one(1) tablet daily with food. cyanocobalamin 500 mcg ORAL Tab Take one (1) tablet daily multivitamin (DAILY VITAMIN) ORAL Tab Take one(1) tablet daily. Calcium Carb-Cholecalciferol (VINCENT-600 WITH VITAMIN D) 600 (1,500)-200 mg-unit ORAL Tab Take one(1) tablet twice daily. FAMILY HISTORY Problem Relation Age of Onset Hypertension Mother Arthritis Mother Heart Father Hypertension Father Hypertension Brother Cancer Brother something in his face Social History Tobacco Use Smoking status: Former Packs/day: 1.50 Years: 35.00 Pack years: 52.50 Types: Cigarettes, Cigars Smokeless tobacco: Never Tobacco comments: 01/20/14 Vaping Use Vaping Use: Never used Substance Use Topics Alcohol use: No Drug use: No BP 116/60 Pulse 95 Temp 36.5 C (97.7 F) Resp 20 Wt 109.8 kg (242 lb) SpO2 94% BMI 40.27kg/m Review of Systems Constitutional: Negative for chills, fever and malaise/fatigue. HENT: Negative for congestion, ear discharge, ear pain, sinus pain and sore throat. Eyes: Negative for blurred vision, pain, discharge and redness. Respiratory: Positive for cough and shortness of breath. Negative for hemoptysis, sputum production, wheezing and stridor. Cardiovascular: Positive for chest pain. Gastrointestinal: Negative for abdominal pain, diarrhea, nausea and vomiting. Musculoskeletal: Negative for myalgias. Skin: Negative for itching and rash. Neurological: Negative for dizziness and headaches. Objective Physical Exam Constitutional: General: She is not in acute distress. Appearance: She is not diaphoretic. HENT: Head: Normocephalic. Jaw: No trismus, tenderness, swelling or pain on movement. Mouth/Throat: Mouth: Mucous membranes are moist. Pharynx: Oropharynx is clear. Uvula midline. No pharyngeal swelling, oropharyngeal exudate, posterior oropharyngeal erythema or uvula swelling. Eyes: Conjunctiva/sclera: Conjunctivae normal. Pupils: Pupils are equal, round, and reactive to light. Cardiovascular: Rate and Rhythm: Normal rate and regular rhythm. Heart sounds: Normal heart sounds. Pulmonary: Effort: Pulmonary effort is normal. No tachypnea, accessory muscle usage or respiratory distress. Breath sounds: Normal breath sounds. No stridor. No wheezing, rhonchi or rales. Abdominal: General: There is no distension. Palpations: Abdomen is soft. Tenderness: There is no abdominal tenderness. There is no guarding or rebound. Musculoskeletal: Cervical back: Normal range of motion and neck supple. No edema, erythema, rigidity or tenderness. No pain with movement. Normal range of motion. Lymphadenopathy: Cervical: No cervical adenopathy. Skin: General: Skin is warm and dry. Neurological: Mental Status: She is alert and oriented to person, place, and time. ASSESSMENT/PLAN: 1. Pleuritic pain - ICD9: 786.52, ICD10: R07.81 Diagnosed with pleuritic pain. With patient's history. States she has been on the border of the therapeutic range of Coumadin recently. With patient standing symptoms recommend patient be seen ED forfurther evaluation care. Patient verbalized understand agrees plan of care. Sean Villalba APRN.ERAN documented in this encounterGu[facility]12-[facility]-2022 NoteHNO ID: [id number] Author: Carmela Skinner RN Service: Nursing Author Type: Registered Nurse Type: Nursing Progress Note Filed: 06/28/2022 12:58 PM Note Text: Other: 1250-xray took Pt for barium enemaTrihealth Bethesda North [id number] History and physical note* Asad Guerin MD - 06/28/2022 1:00 PM EST Images from the original note were not included. HISTORY AND PHYSICAL Art Delgado 1955 REFERRING PHYSICIAN: Autumn Almanzar, * CHIEF COMPLAINT: Consult (colonoscopy) HPI: The patient is a 66 year old female referred for endoscopy. Art notes a history of colon polyps. Patient denies any change in bowel habits, weight changes, blood in stools, black tarry stools or abdominal pain. Denies family history of colon issues. The patient notes no upper GI complaints. Art has undergone prior endoscopy. The patient had a colonoscopy in December [address] Guerin with removal of adenomatous polyp. She also had a colonoscopy with Dr. Guerin in 2016 at [facility] which was incomplete. Per operative report, the scope could not be advanced past the hepatic flexure at that time and patient required a completion barium enema. Report of barium enema not available for review. Patient did not recall difficulties from that colonoscopy or any abnormalities withthe barium enema. Patient's past medical history is significant for chronic kidney disease, diabetes, hypertension, GERD, DVT, PE, meningioma. She follows with Dr. Almanzar in primary care. Patient denies chest pain, shortness of breath or recent hospitalizations. Denies problems with sedation in the past. 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 Essential hypertension, benign 08/15/2010 GERD (gastroesophageal reflux disease) 03/14/2012 Hemorrhage of gastrointestinal tract, unspecified Hyperlipidemia LDL goal < 100 05/13/2014 Incisional hernia 02/12/14 Meningioma (HCC) 12/26/2017 12/26/17: 5 mm. 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) 06/15/2015 Type II or unspecified type diabetes mellitus without mention of complication, uncontrolled PAST SURGICAL HISTORY PAST SURGICAL HISTORY Procedure Laterality Date ESOPHAGOGASTRODUODENOSCOPY TRANSORAL DIAGNOSTIC 05/27/08 GASTRIC BYPASS 05/28/2006 IRIDOTOMY/IRIDECTOMY BY LASER 2004 bilat NEUROPLASTY &/TRANSPOS MEDIAN NRV CARPAL TUNNE 10/31/2013 Carpal tunnel decomp Left PAST SURGICAL HISTORY OF abdiel REPAIR INCISIONAL HERNIA 02/12/[address] Guerin CURRENT MEDICATIONS Current Outpatient Medications Medication Sig metFORMIN (GLUCOPHAGE) 500 mg tablet warfarin (COUMADIN) 5 mg tablet gabapentin (NEURONTIN) 300 mg capsule rOPINIRole (REQUIP) 0.5 mg tablet Take by mouth twice daily. busPIRone (BUSPAR) 5 mg tablet TAKE 1 TABLET BY MOUTH THREE TIMES DAILY NEEDED (ANXIETY). venlafaxine (EFFEXOR) 75 mg tablet Take 1 tablet by mouth twice daily. lisinopril-hydrochlorothiazide (PRINZIDE,ZESTORETIC) 10-12.5 mg per tablet Take 1 tablet by mouth once daily. traZODone (DESYREL) 50 mg tablet Take 1 tablet by mouth daily at bedtime. omeprazole (PRILOSEC) 20 mg capsule TAKE 1 CAPSULE TWICE A DAY 30 MINUTES BEFORE MEALS COMPOUNDED PRESCRIPTION cpap supplies: DX: sleep apnea Biotin 10,000 mcg cap Take by mouth. Ferrous Sulfate 325 mg (65 mg Iron) ORAL tablet Take one(1) tablet daily with food. cyanocobalamin 500 mcg ORAL Tab Take one (1) tablet daily multivitamin (DAILY VITAMIN) ORAL Tab Take one(1) tablet daily. Calcium Carb-Cholecalciferol (VINCENT-600 WITH VITAMIN D) 600 (1,500)-200 mg-unit ORAL Tab Take one(1) tablet twice daily. polyethylene glycol 3350 (MIRALAX) 17 gram/dose powder 17 g/8 oz water daily as needed for constipation No current facility-administered medications for this visit. ALLERGIES: Augmentin [Amoxicillin-Pot Clavulanate], Bactrim [Sulfamethoxazole- Trimethoprim], and Lipitor [Atorvastatin Calcium] PERSONAL HISTORY: SOCIAL HISTORY Social History Tobacco Use Smoking status: Former Packs/day: 1.50 Years: 35.00 Pack years: 52.50 Types: Cigarettes, Cigars Smokeless tobacco: Never Tobacco comments: 01/20/14 Vaping Use Vaping Use: Never used Substance Use Topics Alcohol use: No Drug use: No FAMILY HISTORY: FAMILY HISTORY FAMILY HISTORY Problem Relation Age of Onset Hypertension Mother Arthritis Mother Heart Father Hypertension Father Hypertension Brother Cancer Brother something in his face REVIEW OF SYMPTOMS: The review of systems data was entered by the nurse and reviewed by hi Nursing Notes: Em Park RN 04/28/2022 11:01 AM Signed REVIEW OF SYSTEMS: General: The patient NOTES fatigue, denies weight loss, denies weight gain, NOTES feeling hot, and denies feelings of cold. Eyes: The patient NOTES glaucoma, NOTES eye injury/surgery, wears glasses or contacts. Ear/Nose/Throat: The patient denies allergies, denies hayfever, denies ear infections, and denies bloody noses. Cardiovascular: The patient denies chest pain, denies heart disease, NOTES high blood pressure,denies cardiac stent, denies prior heart attack, denies irregular heart beat, denies high cholesterol, denies poor circulation, denies heart failure, other cardiac issues, denies claudication, denies coldfeet, denies peripheral arterial stent. Respiratory: The patient denies tuberculosis, denies pneumonia, denies frequent cough, NOTES pulmonary embolism, denies shortness of breath, and denies coughing up blood. Gastrointestinal: The patient denies difficulty swallowing, NOTES acid reflux, NOTES ulcers, deniesvomiting, denies jaundice/hepatitis, denies gallbladder problems, denies black or tarry stools, denies hemorrhoids, denies bleeding from rectum, denies diverticulitis, NOTES constipation, denies diarrhea, NOTES loss of stool control, and NOTES hernias. Kidney/Bladder: The patient NOTES kidney stones, denies urine infections, and denies bloody urine. Skin: The patient denies a history of skin cancer, denies bleeding/changing moles, and denies a history of skin rash. Neurologic: The patient denies a history of epilepsy/convulsions, denies headaches, denies head/spinal injuries, and denies stroke/TIA. Psychiatric: The patient denies psychiatric medications, NOTES depression, and denies voices, denies substance abuse. Endocrine: The patient denies thyroid disorders, NOTES diabetes, and denies hormonal problems. Hematologic: The patient NOTES a history of bruising, denies bleeding, and NOTES anemia, NOTES blood clots. Infections: The patient NOTES a history of measles and mumps, denies rheumatic fever, and denies sexually transmitted diseases. Musculoskeletal: The patient denies back pain/injury, denies back problems, denies sciatica, deniesknee/foot trouble, NOTES arthritis, or denies gout. When was patient's last Mammogram screening? 2021 Last Colonoscopy: 2016 Em Park RN I have confirmed and edited as necessary, the PFSH and ROS obtained by others. Allyson Whitmore PA-C PHYSICAL EXAMINATION: General: The patient is 66 year old female, well nourished, well hydrated in no acute distress. Thepatient is oriented to time, place, and person. VITALS: Blood pressure 124/76, pulse 81, temperature 36.3 C (97.3 F), height 165.1 cm (5' 5), weight 112.6 kg (248 lb 3.2 oz), SpO2 94 %. Body mass index is 41.3 kg/m . HEENT: Normal cephalic, ataumatic, pupils are equally round, sclera are anicteric, mucous membranesare moist, oropharynx is clear. Neck has no masses, asymmetry or lymphadenopathy. Respiratory: Clear to auscultation and percussion. Normal respiratory excursion and pattern. Cardiac: Examination is regular rate and rhythm. Normal S1/S2 Abdominal exam: Soft, nontender, with no palpable masses. No hepatosplenomegaly. No palpable hernias. Extremities: no clubbing, cyanosis or edema. No adenopathy. LABORATORY VALUES: As Noted RADIOLOGIC STUDIES: As Noted Assessment IMPRESSION: encounter for high-risk surveillance colonoscopy due to personal history of colon polyps. History of prior incomplete colonoscopy in 2017 PLAN: I have reviewed my findings with the surgeon. Will plan for lower endoscopy with Monitored Anesthetic Care. We discussed the risks and benefits of the planned endoscopy. I have informed the patient that complications can occur including failure to complete the endoscopy and perforation. The patient had the opportunity to ask questions concerning the planned endoscopy. My staff has also explained the procedure to the patient in understandable terms and has given the patient printed material concerning the procedure. The patient freely consents to surgery. The patient was offered a surgery/procedure at a [facility]. I have counseled the patient regarding the risk of exposure to and/or potential harm posed by the COVID-19 virus with having a surgery/procedure at this time versus the risk of delaying the surgery/procedure. It is not possible to know either the risk of delaying the surgery or procedure or chance of getting an infection with perfect accuracy, but a joint decision was made between the patient and myself to proceed at this time with endoscopy. I plan to use Golytely bowel preparation Patient instructed to contact PCP for instructions regarding diabetic medication, which may requireadjustment during bowel preparation and/or day of procedure Patient to remain on her anticoagulation for the endoscopy procedure We will plan for Monitored Anesthetic Care. History of abdominal surgeries, prior incomplete colonoscopy, medications which may decrease effectiveness of sedation Diagnoses: (Z86.010) History of colonic polyps (primary encounter diagnosis) (Z12.11) Encounter for screening for malignant neoplasm of colon Consultation requested by Dr. Almanzar for an opinion regarding history of colon polyps and need for colonoscopy. My final recommendations will be communicated back to the requesting physician by wayof shared Medical record or letter to requesting physician via US mail.;l Allyson Whitmore PA-C UPDATED HISTORY AND PHYSICAL EXAMINATION SERVICE DATE: 06/28/2022 SERVICE TIME: 11:33 AM PHYSICAL EXAM MUST BE COMPLETED ON ADMISSION The History and Physical (completed in the past 30 days) has been reviewed and the patient has beenexamined. The contents accurately reflect the patient's condition with the following additions or revisions since the H&P was completed. Examination indicates no changes. This H&P can be found in the attached. SIGNATURE: Asad Guerin III, MD PATIENT NAME: Art Blue DATE: June 28, 2022 TIME: 10:49 AM documented in this encounterGu[facility]12-[facility]-2022 Nurse Note* Carmela Skinner RN - 06/28/2022 12:58 PM EST Other: 1250-xray took Pt for barium enema documented in this encounterGu[facility]10-19-2022 History of Present illness Narrative* Manuela Dukes APRN.[employer] CONSULTANT - 05/10/2022 10:19 AM EDT [employer] offered: Patient declines. Art is a 66 year old who presents for an annual gynecologic exam without complaints. Enjoying long-term with . Postmenopausal: Yes HRT use: No. 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 Essential hypertension, benign 08/15/2010 GERD (gastroesophageal reflux disease) 03/14/2012 Hemorrhage of gastrointestinal tract, unspecified Hyperlipidemia LDL goal < 100 05/13/2014 Incisional hernia 02/12/14 Meningioma (HCC) 12/26/2017 12/26/17: 5 mm. 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) 06/15/2015 Type II or unspecified type diabetes mellitus without mention of complication, uncontrolled PAST SURGICAL HISTORY Procedure Laterality Date ESOPHAGOGASTRODUODENOSCOPY TRANSORAL DIAGNOSTIC 05/27/2008 GASTRIC BYPASS 05/28/2006 IRIDOTOMY/IRIDECTOMY BY LASER 07/23/2004 bilat NEUROPLASTY &/TRANSPOS MEDIAN NRV CARPAL TUNNE 10/31/2013 Carpal tunnel decomp Left PAST SURGICAL HISTORY OF chandler PAST SURGICAL HISTORY OF 2015 panelectomy REPAIR INCISIONAL HERNIA 02/12/[address] Guerin FAMILY HISTORY Problem Relation Age of Onset Hypertension Mother Arthritis Mother Heart Father Hypertension Father Hypertension Brother Cancer Brother something in his face SOCIAL HISTORY Social History Tobacco Use Smoking status: Former Packs/day: 1.50 Years: 35.00 Pack years: 52.50 Types: Cigarettes, Cigars Smokeless tobacco: Never Tobacco comments: 01/20/14 Vaping Use Vaping Use: Never used Substance Use Topics Alcohol use: No Drug use: No REVIEW OF SYSTEMS Abdomen: No abdominal pain, nausea, vomiting, diarrhea, or constipation. No bloating, early satiety, indigestion, or increased flatulence. Bladder: No dysuria, gross hematuria, urinary frequency, urinary urgency, or incontinence Breast: No breast lumps, nipple d/c, overlying skin changes, redness or skin retraction Allergies and current medication updated:Yes EXAM: BP 124/68 Ht 5' 5 (1.65m) Wt 247 lb (112.0kg) BMI 41.10 kg/(m^2). GENERAL: pleasant, female in no apparent distress HEENT: Normocephalic, atraumatic, mucus membranes moist, and no lesions NECK: Supple, full range of motion, no adenopathy, and thyroid normal DERMATOLOGY: Normal, without lesions, non-icteric, and non-hirsute BREAST: soft, non-tender, symmetric, no dominant mass, normal nipple-areolar complex, no lymphadenopathy, and no nipple discharge CHEST: Normal inspiratory effort ABDOMEN: soft and non-tender PELVIC: external genitalia normal, normal Bartholin's glands, urethra, [place]'s glands, no vulvar lesions, no cervical lesions, physiologic discharge present, normal appearing perineal body and perianal region BIMANUAL: non-tender and difficult exam due to body habitus RECTOVAGINAL: deferred. NEURO: alert and oriented x3,exam grossly non-focal EXTREMITIES: normal ASSESSMENT/PLAN: 1) Health maintenance: Pap done Mammogram up to date - done at [facility] Nutrition, exercise and routine health maintenance exams reviewed. Calcium/Vitamin D supplementation information provided. Colon cancer screening: upcoming BMD: up to date, normal [facility] 2) Follow up one year or sooner as needed Manuela Dukes APRN.[employer] CONSULTANT documented in this encounterGuernsey [facility]10-07-2022 History of Present illness Narrative* Allyson Whitmore PA-C - 04/28/2022 11:00 AM EDT HISTORY AND PHYSICAL Art Blue 1955 REFERRING PHYSICIAN: Autumn Alamnzar, * CHIEF COMPLAINT: Consult (colonoscopy) HPI: The patient is a 66 year old female referred for endoscopy. Art notes a history of colon polyps. Patient denies any change in bowel habits, weight changes, blood in stools, black tarry stools or abdominal pain. Denies family history of colon issues. The patient notes no upper GI complaints. Art has undergone prior endoscopy. The patient had a colonoscopy in December [address] Guerin with removal of adenomatous polyp. She also had a colonoscopy with Dr. Guerin in 2016 at [facility] which was incomplete. Per operative report, the scope could not be advanced past the hepatic flexure at that time and patient required a completion barium enema. Report of barium enema not available for review. Patient did not recall difficulties from that colonoscopy or any abnormalities withthe barium enema. Patient's past medical history is significant for chronic kidney disease, diabetes, hypertension, GERD, DVT, PE, meningioma. She follows with Dr. Almanzar in primary care. Patient denies chest pain, shortness of breath or recent hospitalizations. Denies problems with sedation in the past. 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 Essential hypertension, benign 08/15/2010 GERD (gastroesophageal reflux disease) 03/14/2012 Hemorrhage of gastrointestinal tract, unspecified Hyperlipidemia LDL goal < 100 05/13/2014 Incisional hernia 02/12/14 Meningioma (HCC) 12/26/2017 12/26/17: 5 mm. 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) 06/15/2015 Type II or unspecified type diabetes mellitus without mention of complication, uncontrolled PAST SURGICAL HISTORY Procedure Laterality Date ESOPHAGOGASTRODUODENOSCOPY TRANSORAL DIAGNOSTIC 05/27/08 GASTRIC BYPASS 05/28/2006 IRIDOTOMY/IRIDECTOMY BY LASER 2004 bilat NEUROPLASTY &/TRANSPOS MEDIAN NRV CARPAL TUNNE 10/31/2013 Carpal tunnel decomp Left PAST SURGICAL HISTORY OF abdiel REPAIR INCISIONAL HERNIA 02/12/[address] Guerin Current Outpatient Medications Medication Sig metFORMIN (GLUCOPHAGE) 500 mg tablet warfarin (COUMADIN) 5 mg tablet gabapentin (NEURONTIN) 300 mg capsule rOPINIRole (REQUIP) 0.5 mg tablet Take by mouth twice daily. busPIRone (BUSPAR) 5 mg tablet TAKE 1 TABLET BY MOUTH THREE TIMES DAILY NEEDED (ANXIETY). venlafaxine (EFFEXOR) 75 mg tablet Take 1 tablet by mouth twice daily. lisinopril-hydrochlorothiazide (PRINZIDE,ZESTORETIC) 10-12.5 mg per tablet Take 1 tablet by mouth once daily. traZODone (DESYREL) 50 mg tablet Take 1 tablet by mouth daily at bedtime. omeprazole (PRILOSEC) 20 mg capsule TAKE 1 CAPSULE TWICE A DAY 30 MINUTES BEFORE MEALS COMPOUNDED PRESCRIPTION cpap supplies: DX: sleep apnea Biotin 10,000 mcg cap Take by mouth. Ferrous Sulfate 325 mg (65 mg Iron) ORAL tablet Take one(1) tablet daily with food. cyanocobalamin 500 mcg ORAL Tab Take one (1) tablet daily multivitamin (DAILY VITAMIN) ORAL Tab Take one(1) tablet daily. Calcium Carb-Cholecalciferol (VINCENT-600 WITH VITAMIN D) 600 (1,500)-200 mg-unit ORAL Tab Take one(1) tablet twice daily. polyethylene glycol 3350 (MIRALAX) 17 gram/dose powder 17 g/8 oz water daily as needed for constipation No current facility-administered medications for this visit. ALLERGIES: Augmentin [Amoxicillin-Pot Clavulanate], Bactrim [Sulfamethoxazole- Trimethoprim], and Lipitor [Atorvastatin Calcium] PERSONAL HISTORY: Social History Tobacco Use Smoking status: Former Packs/day: 1.50 Years: 35.00 Pack years: 52.50 Types: Cigarettes, Cigars Smokeless tobacco: Never Tobacco comments: 01/20/14 Vaping Use Vaping Use: Never used Substance Use Topics Alcohol use: No Drug use: No FAMILY HISTORY: FAMILY HISTORY Problem Relation Age of Onset Hypertension Mother Arthritis Mother Heart Father Hypertension Father Hypertension Brother Cancer Brother something in his face REVIEW OF SYMPTOMS: The review of systems data was entered by the nurse and reviewed by hi Nursing Notes: Em Park RN 04/28/2022 11:01 AM Signed REVIEW OF SYSTEMS: General: The patient NOTES fatigue, denies weight loss, denies weight gain, NOTES feeling hot, and denies feelings of cold. Eyes: The patient NOTES glaucoma, NOTES eye injury/surgery, wears glasses or contacts. Ear/Nose/Throat: The patient denies allergies, denies hayfever, denies ear infections, and denies bloody noses. Cardiovascular: The patient denies chest pain, denies heart disease, NOTES high blood pressure,denies cardiac stent, denies prior heart attack, denies irregular heart beat, denies high cholesterol, denies poor circulation, denies heart failure, other cardiac issues, denies claudication, denies coldfeet, denies peripheral arterial stent. Respiratory: The patient denies tuberculosis, denies pneumonia, denies frequent cough, NOTES pulmonary embolism, denies shortness of breath, and denies coughing up blood. Gastrointestinal: The patient denies difficulty swallowing, NOTES acid reflux, NOTES ulcers, deniesvomiting, denies jaundice/hepatitis, denies gallbladder problems, denies black or tarry stools, denies hemorrhoids, denies bleeding from rectum, denies diverticulitis, NOTES constipation, denies diarrhea, NOTES loss of stool control, and NOTES hernias. Kidney/Bladder: The patient NOTES kidney stones, denies urine infections, and denies bloody urine. Skin: The patient denies a history of skin cancer, denies bleeding/changing moles, and denies a history of skin rash. Neurologic: The patient denies a history of epilepsy/convulsions, denies headaches, denies head/spinal injuries, and denies stroke/TIA. Psychiatric: The patient denies psychiatric medications, NOTES depression, and denies voices, denies substance abuse. Endocrine: The patient denies thyroid disorders, NOTES diabetes, and denies hormonal problems. Hematologic: The patient NOTES a history of bruising, denies bleeding, and NOTES anemia, NOTES blood clots. Infections: The patient NOTES a history of measles and mumps, denies rheumatic fever, and denies sexually transmitted diseases. Musculoskeletal: The patient denies back pain/injury, denies back problems, denies sciatica, deniesknee/foot trouble, NOTES arthritis, or denies gout. When was patient's last Mammogram screening? 2021 Last Colonoscopy: 2016 Em Park RN I have confirmed and edited as necessary, the PFSH and ROS obtained by others. Allyson Whitmore PA-C PHYSICAL EXAMINATION: General: The patient is 66 year old female, well nourished, well hydrated in no acute distress. Thepatient is oriented to time, place, and person. VITALS: Blood pressure 124/76, pulse 81, temperature 36.3 C (97.3 F), height 165.1 cm (5' 5), weight 112.6 kg (248 lb 3.2 oz), SpO2 94 %. Body mass index is 41.3 kg/m . HEENT: Normal cephalic, ataumatic, pupils are equally round, sclera are anicteric, mucous membranesare moist, oropharynx is clear. Neck has no masses, asymmetry or lymphadenopathy. Respiratory: Clear to auscultation and percussion. Normal respiratory excursion and pattern. Cardiac: Examination is regular rate and rhythm. Normal S1/S2 Abdominal exam: Soft, nontender, with no palpable masses. No hepatosplenomegaly. No palpable hernias. Extremities: no clubbing, cyanosis or edema. No adenopathy. LABORATORY VALUES: As Noted RADIOLOGIC STUDIES: As Noted Assessment IMPRESSION: encounter for high-risk surveillance colonoscopy due to personal history of colon polyps. History of prior incomplete colonoscopy in 2017 PLAN: I have reviewed my findings with the surgeon. Will plan for lower endoscopy with Monitored Anesthetic Care. We discussed the risks and benefits of the planned endoscopy. I have informed the patient that complications can occur including failure to complete the endoscopy and perforation. The patient had the opportunity to ask questions concerning the planned endoscopy. My staff has also explained the procedure to the patient in understandable terms and has given the patient printed material concerning the procedure. The patient freely consents to surgery. The patient was offered a surgery/procedure at a [facility] facility. I have counseled the patient regarding the risk of exposure to and/or potential harm posed by the COVID-19 virus with having a surgery/procedure at this time versus the risk of delaying the surgery/procedure. It is not possible to know either the risk of delaying the surgery or procedure or chance of getting an infection with perfect accuracy, but a joint decision was made between the patient and myself to proceed at this time with endoscopy. I plan to use Golytely bowel preparation Patient instructed to contact PCP for instructions regarding diabetic medication, which may requireadjustment during bowel preparation and/or day of procedure Patient to remain on her anticoagulation for the endoscopy procedure We will plan for Monitored Anesthetic Care. History of abdominal surgeries, prior incomplete colonoscopy, medications which may decrease effectiveness of sedation Diagnoses: (Z86.010) History of colonic polyps (primary encounter diagnosis) (Z12.11) Encounter for screening for malignant neoplasm of colon Consultation requested by Dr. Almanzar for an opinion regarding history of colon polyps and need for colonoscopy. My final recommendations will be communicated back to the requesting physician by wayof shared Medical record or letter to requesting physician via US mail.;l Allyson Whitmore PA-C documented [facility] Note* Em Park RN - 04/28/2022 10:56 AM EDT REVIEW OF SYSTEMS: General: The patient NOTES fatigue, denies weight loss, denies weight gain, NOTES feeling hot, and denies feelings of cold. Eyes: The patient NOTES glaucoma, NOTES eye injury/surgery, wears glasses or contacts. Ear/Nose/Throat: The patient denies allergies, denies hayfever, denies ear infections, and denies bloody noses. Cardiovascular: The patient denies chest pain, denies heart disease, NOTES high blood pressure,denies cardiac stent, denies prior heart attack, denies irregular heart beat, denies high cholesterol, denies poor circulation, denies heart failure, other cardiac issues, denies claudication, denies coldfeet, denies peripheral arterial stent. Respiratory: The patient denies tuberculosis, denies pneumonia, denies frequent cough, NOTES pulmonary embolism, denies shortness of breath, and denies coughing up blood. Gastrointestinal: The patient denies difficulty swallowing, NOTES acid reflux, NOTES ulcers, deniesvomiting, denies jaundice/hepatitis, denies gallbladder problems, denies black or tarry stools, denies hemorrhoids, denies bleeding from rectum, denies diverticulitis, NOTES constipation, denies diarrhea, NOTES loss of stool control, and NOTES hernias. Kidney/Bladder: The patient NOTES kidney stones, denies urine infections, and denies bloody urine. Skin: The patient denies a history of skin cancer, denies bleeding/changing moles, and denies a history of skin rash. Neurologic: The patient denies a history of epilepsy/convulsions, denies headaches, denies head/spinal injuries, and denies stroke/TIA. Psychiatric: The patient denies psychiatric medications, NOTES depression, and denies voices, denies substance abuse. Endocrine: The patient denies thyroid disorders, NOTES diabetes, and denies hormonal problems. Hematologic: The patient NOTES a history of bruising, denies bleeding, and NOTES anemia, NOTES blood clots. Infections: The patient NOTES a history of measles and mumps, denies rheumatic fever, and denies sexually transmitted diseases. Musculoskeletal: The patient denies back pain/injury, denies back problems, denies sciatica, deniesknee/foot trouble, NOTES arthritis, or denies gout. When was patient's last Mammogram screening? 2021 Last Colonoscopy: 2016 Em Park RN documented [facility] History of Past illness Narrative* Problem Noted Date Resolved Date Eustachian tube disorder, left 11/05/2017 0 09/09/2018 Radicular pain in left arm 03/30/201709/09 Pain in both lower extremities 11/22/2016 0 09/09/2018 Rotator cuff syndrome of right shoulder 10/17/19 17 09/09/2018 Symptomatic abdominal panniculus 03/15/2015 09/09/2018 COPD (chronic obstructive pulmonary disease) 09/02/2016 Carpal tunnel syndrome of right wrist 05/13/2014 09/09/2018 Wrist tendonitis 12/11/2013 05/13/2014 Left carpal tunnel syndrome 10/31/201304/23 Morbid obesity 08/15/2010 09/09/2018 Abdominal wall hernia 08/15/2010 05/13/2014 ULCER GASTROJEJUNAL, ACUTE( Without obstruction) 06/16/2008 12/28/2014 documented as of this encounter (statuses as of 04/28/2022) [facility] of Past illness Narrative* Problem Noted Date Resolved Date Eustachian tube disorder, left 11/05/2017 0 09/09/2018 Radicular pain in left arm 03/30/201709/09 Pain in both lower extremities 11/22/2016 0 09/09/2018 Rotator cuff syndrome of right shoulder 10/17/19 17 09/09/2018 Symptomatic abdominal panniculus 03/15/2015 09/09/2018 COPD (chronic obstructive pulmonary disease) 09/02/2016 Carpal tunnel syndrome of right wrist 05/13/2014 09/09/2018 Wrist tendonitis 12/11/2013 05/13/2014 Left carpal tunnel syndrome 10/31/201304/23 Morbid obesity 08/15/2010 09/09/2018 Abdominal wall hernia 08/15/2010 05/13/2014 ULCER GASTROJEJUNAL, ACUTE( Without obstruction) 06/16/2008 12/28/2014 documented as of this encounter (statuses as of 05/10/2022) [facility] of Past illness Narrative* Problem Noted Date Resolved Date Eustachian tube disorder, left 11/05/2017 0 09/09/2018 Radicular pain in left arm 03/30/201709/09 Pain in both lower extremities 11/22/2016 0 09/09/2018 Rotator cuff syndrome of right shoulder 10/17/19 17 09/09/2018 Symptomatic abdominal panniculus 03/15/2015 09/09/2018 COPD (chronic obstructive pulmonary disease) 09/02/2016 Carpal tunnel syndrome of right wrist 05/13/2014 09/09/2018 Wrist tendonitis 12/11/2013 05/13/2014 Left carpal tunnel syndrome 10/31/201304/23 Morbid obesity 08/15/2010 09/09/2018 Abdominal wall hernia 08/15/2010 05/13/2014 ULCER GASTROJEJUNAL, ACUTE( Without obstruction) 06/16/2008 12/28/2014 documented as of this encounter (statuses as of 06/29/2022) [facility] of [facility] illness Narrative* Problem Noted Date Resolved Date Eustachian tube disorder, left 11/05/2017 0 09/09/2018 Radicular pain in left arm 03/30/201709/09 Pain in both lower extremities 11/22/2016 0 09/09/2018 Rotator cuff syndrome of right shoulder 10/17/19 17 09/09/2018 Symptomatic abdominal panniculus 03/15/2015 09/09/2018 COPD (chronic obstructive pulmonary disease) 09/02/2016 Carpal tunnel syndrome of right wrist 05/13/2014 09/09/2018 Wrist tendonitis 12/11/2013 05/13/2014 Left carpal tunnel syndrome 10/31/201304/23 Morbid obesity 08/15/2010 09/09/2018 Abdominal wall hernia 08/15/2010 05/13/2014 ULCER GASTROJEJUNAL, ACUTE( Without obstruction) 06/16/2008 12/28/2014 documented as of this encounter (statuses as of 01/20/2023) [facility] of [facility] illness Narrative* Problem Noted Date Diagnosed Date Resolved Date Eustachian tube disorder, left 11/05/2017 09/09/2018 Radicular pain in left arm 03/30/2017 0 09/09/2018 Pain in both lower extremities 11/22/2016 09/09/2018 Rotator cuff syndrome of right shoulder 10/16/2016 09/09/2018 Symptomatic abdominal panniculus 03/15/2015 09/09/2018 COPD (chronic obstructive pulmonary disease) 4 09/02/2016 Carpal tunnel syndrome of right wrist 05/13/2014 09/09/2018 Wrist tendonitis 12/11/2013 05/13/2014 Left carpal tunnel syndrome 10/31/2013 05/13/2014 Morbid obesity 08/15/2010 09/09/2018 Abdominal wall hernia 08/15/20102013 ULCER GASTROJEJUNAL, ACUTE( Without obstruction) 06/16/2008 12/28/2014 documented as of this encounter (statuses as of 02/21/2023) [facility] of [facility] illness Narrative* Problem Noted Date Diagnosed Date Resolved Date Eustachian tube disorder, left 11/05/2017 09/09/2018 Radicular pain in left arm 03/30/2017 0 09/09/2018 Pain in both lower extremities 11/22/2016 09/09/2018 Rotator cuff syndrome of right shoulder 10/16/2016 09/09/2018 Symptomatic abdominal panniculus 03/15/2015 09/09/2018 COPD (chronic obstructive pulmonary disease) 4 09/02/2016 Carpal tunnel syndrome of right wrist 05/13/2014 09/09/2018 Wrist tendonitis 12/11/2013 05/13/2014 Left carpal tunnel syndrome 10/31/2013 05/13/2014 Morbid obesity 08/15/2010 09/09/2018 Abdominal wall hernia 08/15/20102013 ULCER GASTROJEJUNAL, ACUTE( Without obstruction) 06/16/2008 12/28/2014 documented as of this encounter (statuses as of 03/30/2023) [facility] of [facility] illness Narrative* Problem Noted Date Diagnosed Date Resolved Date Eustachian tube disorder, left 11/05/2017 09/09/2018 Radicular pain in left arm 03/30/2017 0 09/09/2018 Pain in both lower extremities 11/22/2016 09/09/2018 Rotator cuff syndrome of right shoulder 10/16/2016 09/09/2018 Symptomatic abdominal panniculus 03/15/2015 09/09/2018 COPD (chronic obstructive pulmonary disease) 4 09/02/2016 Carpal tunnel syndrome of right wrist 05/13/2014 09/09/2018 Wrist tendonitis 12/11/2013 05/13/2014 Left carpal tunnel syndrome 10/31/2013 05/13/2014 Morbid obesity 08/15/2010 09/09/2018 Abdominal wall hernia 08/15/20102013 ULCER GASTROJEJUNAL, ACUTE( Without obstruction) 06/16/2008 12/28/2014 documented as of this encounter (statuses as of 04/06/2023) [facility] of [facility] illness Narrative* Problem Noted Date Diagnosed Date Resolved Date Eustachian tube disorder, left 11/05/2017 09/09/2018 Radicular pain in left arm 03/30/2017 0 09/09/2018 Pain in both lower extremities 11/22/2016 09/09/2018 Rotator cuff syndrome of right shoulder 10/16/2016 09/09/2018 Symptomatic abdominal panniculus 03/15/2015 09/09/2018 COPD (chronic obstructive pulmonary disease) 4 09/02/2016 Carpal tunnel syndrome of right wrist 05/13/2014 09/09/2018 Wrist tendonitis 12/11/2013 05/13/2014 Left carpal tunnel syndrome 10/31/2013 05/13/2014 Morbid obesity 08/15/2010 09/09/2018 Abdominal wall hernia 08/15/20102013 ULCER GASTROJEJUNAL, ACUTE( Without obstruction) 06/16/2008 12/28/2014 documented as of this encounter (statuses as of 04/07/2023) [facility] of [facility] illness Narrative* Problem Noted Date Diagnosed Date Resolved Date Eustachian tube disorder, left 11/05/2017 09/09/2018 Radicular pain in left arm 03/30/2017 0 09/09/2018 Pain in both lower extremities 11/22/2016 09/09/2018 Rotator cuff syndrome of right shoulder 10/16/2016 09/09/2018 Symptomatic abdominal panniculus 03/15/2015 09/09/2018 COPD (chronic obstructive pulmonary disease) 4 09/02/2016 Carpal tunnel syndrome of right wrist 05/13/2014 09/09/2018 Wrist tendonitis 12/11/2013 05/13/2014 Left carpal tunnel syndrome 10/31/2013 05/13/2014 Morbid obesity 08/15/2010 09/09/2018 Abdominal wall hernia 08/15/20102013 ULCER GASTROJEJUNAL, ACUTE( Without obstruction) 06/16/2008 12/28/2014 documented as of this encounter (statuses as of 04/17/2023) [facility] of [facility] illness Narrative* Problem Noted Date Diagnosed Date Resolved Date Eustachian tube disorder, left 11/05/2017 09/09/2018 Radicular pain in left arm 03/30/2017 0 09/09/2018 Pain in both lower extremities 11/22/2016 09/09/2018 Rotator cuff syndrome of right shoulder 10/16/2016 09/09/2018 Symptomatic abdominal panniculus 03/15/2015 09/09/2018 COPD (chronic obstructive pulmonary disease) 4 09/02/2016 Carpal tunnel syndrome of right wrist 05/13/2014 09/09/2018 Wrist tendonitis 12/11/2013 05/13/2014 Left carpal tunnel syndrome 10/31/2013 05/13/2014 Morbid obesity 08/15/2010 09/09/2018 Abdominal wall hernia 08/15/20102013 ULCER GASTROJEJUNAL, ACUTE( Without obstruction) 06/16/2008 12/28/2014 documented as of this encounter (statuses as of 05/27/2023) [facility] January 23, 2023 8:12am Note Date/Time January 23, 2023 7:39a [facility] Medical Records Department [address] [place] [address] Emergency Department Summary 01/23/23 MR#: [id number] Acct: [id number] Name: ART BLUE Rep #:[id number] : 1955 67 From: Max Lara DO PCP: Deysi Castro DO Status:REG E R Location: ED HPI History of Present Illness Chief Complaint: Shortness of Breath Informant: patient and spouse/S.O. Narrative Narrative: Patient is a 67-year-old female with past medical history of DVT and PE currently on Coumadin. She states on she began developing right-sided back pain/rib pain that was worse with inspiration. She states that she has been taking her blood thinner as directed and that there was no trauma or excessive activity. She states that she then developed a fever and with concernthat she had developed a repeat blood clot came to the hospital on Sunday. She had a CT scan at that time which showed no PE but pneumonia and she was started on doxycycline and discharged home. Patient states she has had persistent low-grade fever with persistent and worsening right-sided chest/back pain that is worse with inspiration and increased shortness of breath and therefore returns for repeat evaluation. Patient denies any history of lung disorder or need for supplemental oxygen [facility] Medical History Anxiety and depression Diabetes Gastric ulcer GERD (gastroesophageal reflux disease) Glaucoma High cholesterol History of DVT (deep vein thrombosis) History of kidney stones History of pneumonia History of UTI HTN (hypertension) Neuropathy Home Medications cyanocobalamin (vitamin B-12) 500 mcg tablet 500 mcg PO DAILY@0800 SUPPLEMENT 02/11/14 [History Last Taken 01/22/23] ferrous sulfate 325 mg (65 mg iron) tablet 325 mg PO DAILY@0800 SUPPLEMENT 02/11/14 [History Last Taken 01/22/23] multivitamin with folic acid 400 mcg tablet 1 tab PO DAILY SUPPLEMENT 02/11/14 [History Last Taken 01/22/23] omeprazole 20 mg capsule,delayed release 20 mg PO BID REFLUX 02/11/14 [History Last Taken 01/22/23] trazodone 50 mg tablet 50 mg PO QHS SLEEP 02/11/14 [History Last Taken 01/22/23] venlafaxine 75 mg tablet 75 mg PO BID DEPRESSION 02/11/14 [History Last Taken 01/22/23] biotin 10,000 mcg capsule 10,000 mcg PO DAILY HAIR LOSS 05/30/21 [History Last Taken 01/22/23] buspirone 5 mg tablet 5 mg PO TID PRN anxiety 05/30/21 [History Last Taken 01/22/23] calcium carbonate 600 mg-vitamin D3 12.5 mcg (500 unit) capsule (Calcium 600 with Vitamin D3) 1 cap PO BID 05/30/21 [History Last Taken 01/22/23] gabapentin 300 mg capsule 300 mg PO BID 05/30/21 [History Last Taken 01/22/23] metformin 1,000 mg tablet 1,000 mg PO DAILY 05/30/21 [History Last Taken 01/22/23] warfarin 10 mg tablet 10 mg PO SUTUTHFRSA 05/30/21 [History Last Taken 01/21/23] baclofen 10 mg tablet 10 mg PO TID PRN restless legs #30 tabs 10/30/22 [Rx Last Taken Unknown] ropinirole 2 mg tablet 2 mg PO QHS #90 tabs 10/30/22 [Rx Last Taken 01/22/23] meclizine 25 mg tablet 25 mg PO BID PRN dizziness #60 tabs 12/26/22 [Rx Last Taken 01/22/23] doxycycline monohydrate 100 mg capsule 100 mg PO BID #20 CAPSULES 01/20/23 [Rx Last Taken 01/22/23] lisinopril 20 mg-hydrochlorothiazide 25 mg tablet 1 tab PO DAILY BP 01/23/23 [History Last Taken 01/22/23] warfarin 5 mg tablet (Jultoven) 7.5 mg PO MOWE 01/23/23 [History Last Taken 01/22/23] Allergy/AdvReac Type Severity Reaction Status Date / Time amoxicillin Allergy Mild rash Verified 01/23/23 03:07 atorvastatin AdvReac Mild myalgiias Verified 01/23/23 03:07 levofloxacin [From Levaquin] AdvReac Unknown Nausea Verified 01/23/23 03:07 Family History Mother Heart disease Hypertension Father Heart disease CVA (cerebral vascular accident) Brother Cancer Surgical History History of carpal tunnel release of both wrists History of colonoscopy (~2014) History of dilation and curettage History of [place]-en-Y gastric bypass History of umbilical hernia repair Status post biopsy of thyroid gland (~08/2019) Status post panniculectomy Social History household members: spouse housing: house Smoking Status: Former smoker Tobacco: How many years used: 40 Electronic Cigarette Use: not used how long ago did patient quit smoking: about a year and half ago second hand exposure: No alcohol intake: never substance use type: does not use what type of physical activity do you participate in: none do you feel safe at home: Yes ROS ROS ED Constitutional Constitutional ED: Reports fever(s); Denies chills ENT ENT ED: Denies sore throat Cardiovascular Cardiovascular: Reports chest pain; Denies palpitations or racing heartbeat Respiratory/Chest Respiratory/Chest: Reports cough and dyspnea Gastrointestinal Gastrointestinal: Denies abdominal pain, diarrhea, nausea or vomiting Genitourinary Genitourinary ED: Denies dysuria Musculoskeletal Musculoskeletal: Reports back pain; Denies myalgias Integumentary Denies rash Neurologic Neurologic: Denies headache(s) Hematologic/Lymphatic Hematologic/Lymphatic: Reports easy bleeding and easy bruising EXAM Physical Exam Const Vital Signs: 01/23/23 03:03 01/23/23 03:03 01/23/23 03:06 Temperature 100.5 F H 100.5 F H Temperature Source Oral Temporal Pulse Rate 95 93 Respiratory Rate 20 H 20 H Respiratory Effort Short of Breath Blood Pressure 171/70 H 171/70 H Blood Pressure Mean 103 103 Pulse Ox 92 91 Oxygen Delivery Method 01/23/23 05:48 Temperature Temperature Source Pulse Rate 81 Respiratory Rate 15 Respiratory Effort Blood Pressure 152/57 H Blood Pressure Mean 88 Pulse Ox 88 Oxygen Delivery Method Room Air Positive well nourished, well developed and obese General Appearance ED: well developed Nutritional Appearance: obese HEENT Reports moist mucous membranes HEENT Narrative: No tongue or lip swelling no oral lesions no airway edema or compromise Eyes PERRL and EOMs intact bilaterally General Eye ED: Negative for scleral icterus Neck supple and no JVD Chest Wall palpation of chest normal Resp Resp Narrative: Patient is tachypneic with shallow inspirations and splinting. Breath sounds are diminished on the right with faint crackles. No nasal flaring retractions or accessory muscle use noted however. Cardio regular rate and regular rhythm Rate: other Other Details: Radial pulses are plus 2 out of 4 bilaterally are equal and symmetric GI normal to inspection, nondistended, normoactive bowel sounds, non-tender, non-distended and no masses GI Narrative: No voluntary guarding or rigidity no pulsatile mass or fluid wave Auscultation: normoactive bowel sounds Palpation: soft Extremity normal to inspection Extremity Narrative: Negative Homans' sign bilaterally Neuro oriented x3 and CN's II-XII intact bilaterally Sensorium / Orientation: alert Psych mental status grossly normal Skin no rashes or lesions noted General Skin Exam: Negative for jaundice MDM MDM MDM Narrative Medical decision making narrative: Patient presented to the ER with low-grade fever and tachypnea and a pulse ox of88 to 90% on room air. She had previous history of DVT and PE and is currently on Coumadin but there was concern that she had a missed PE or pulmonary infarction from the previous day or potentially pneumothorax or worsening pneumonia or pleural effusion. A basic work-up was obtained and shows normal white count and lactic acid value. Her INR is therapeutic at 3. CTA revealed no PE or infarction but showed worsening pleural effusion and potential pneumonia. There is a concern this could be viral in nature based on the groundglass appearance so a rapid influenza and COVID test were obtained which were negative. As the patient desats to 88% at rest and does not have oxygen at home I do not feel she is safe to return home especially with her persistent pain and worsening symptoms and just a few days. Therefore medicine was contacted and after discussing the case they do agree to accept the patient at this time. They agree that symptoms could be viral in nature but as patient hasa possibility of failing outpatient antibiotic therapy they recommend she be given Rocephin and Zithromax in the ER. This plan of care was discussed with the patient and she is agreeable to it History & Record Review Discussion w/independent historian: Patient Lab Data Labs: Laboratory Results - last 24 hr 01/23/23 03:40 WBC 9.8 RBC 3.38 L Hgb 10.4 L Hct 32.1 L MCV 95.0 MCH 30.8 MCHC 32.4 RDW Std Deviation 47.4 H RDW Coeff of Les 13.6 Plt Count 293 MPV 9.4 Immature Gran % (Auto) 0.700 Neut % (Auto) 77.1 H Lymph % (Auto) 11.3 L Kimball % (Auto) 8.5 Eos % (Auto) 1.9 Baso % (Auto) 0.5 Absolute Neuts (auto) 7.5 Absolute Lymphs (auto) 1.10 Nucleated RBC % 0 PT 31.5 H INR 3.0 APTT 80.7 H Sodium 135 L Potassium 3.9 Chloride 103 Carbon Dioxide 27.0 Anion Gap 5 BUN 21 H Creatinine 0.86 Estim Creat Clear Calc 57.90 Est GFR (MDRD) Af Amer 85 Est GFR (MDRD) Non-Af 71 BUN/Creatinine Ratio 24.6 H Glucose 258 H Lactic Acid 1.6 Calcium 8.4 L Total Bilirubin 0.20 Direct Bilirubin 0.12 AST 9 L ALT 15 Alkaline Phosphatase 67 Total Protein 6.8 Albumin 2.4 L Globulin 4.4 H Radiography Diagnostic Testing: Clinical Impression(s) from Imaging Studies Chest CTA 01/23/23 03:29 IMPRESSION: Negative for PE. Enlarging right pleural effusion with increasing right lower lobe infiltrate due to compressive atelectasis and possible pneumonia. Groundglass opacities within the left upper lobe, primarily central, most likely due to developing pneumonia, possibly Covid pneumonia. Interval development of mild right hilar adenopathy. Electronically Signed: Manuel Bassett MD at 5:20 EDT , Discharge Plan Triage Chief Complaint: Shortness of Breath ED Provider: Max Lara Dx/Rx/DC Orders Clinical Impression: Pleural effusion, Hypoxia, Pneumonia Prescriptions: No Action buspirone 5 mg tablet 5 mg PO TID PRN (Reason: anxiety) warfarin 10 mg tablet 10 mg PO SUTUTHFRSA metformin 1,000 mg tablet 1,000 mg PO DAILY calcium carbonate-vitamin D3 [Calcium 600 with Vitamin D3] 600 mg(1,500mg) -500 unit capsule 1 cap PO BID gabapentin 300 mg capsule 300 mg PO BID Patient Comments: TAKE 1 CAPSULE TWICE DAILY FOR 28 DAYS ropinirole 2 mg tablet 2 mg PO QHS Qty: 90 1RF baclofen 10 mg tablet 10 mg PO TID PRN (Reason: restless legs) Qty: 30 5RF venlafaxine 75 MG tablet 75 mg PO BID Patient Comments: ANXIETY/DEPRESSION trazodone 50 MG tablet 50 mg PO QHS Patient Comments: INSOMINIA cyanocobalamin (vitamin B-12) 500 MCG tablet 500 mcg PO DAILY@0800 Patient Comments: SUPPLEMENT ferrous sulfate 325 MG tablet 325 mg PO DAILY@0800 Patient Comments: SUPPLEMENT omeprazole 20 MG capsule 20 mg PO BID Patient Comments: ACID REFLUX multivitamin with folic acid 1 TABLET tablet 1 tab PO DAILY Patient Comments: SUPPLEMENT biotin 10,000 mcg capsule 10,000 mcg PO DAILY Patient Comments: SUPPLEMENT doxycycline monohydrate 100 mg capsule 100 mg PO BID Qty: 20 0RF Patient Comments: 7 DAYS REMAINING IN 10 DAY COURSE PER PT warfarin [Jantoven] 5 mg tablet 7.5 mg PO MOWE lisinopril-hydrochlorothiazide 20-25 mg tablet 1 tab PO DAILY meclizine 25 mg tablet 25 mg PO BID PRN (Reason: dizziness) Qty: 60 3RF Primary Care Provider: Deysi Castro Referrals: Deysi Castro, [Primary Care Provider] - Disposition Disposition: Acute Care Hospital [facility] What to do if you have Problems For any increased pain, shortness of breath, bleeding, nausea or vomiting, chestpain, or any unexpected problems, contact your Primary Care Provider. Call [facility] ([phone]) or report to the closest Emergency Room. Call 911 if necessary. 01/23/23811 <Electronically signed by Max Lara DO> Cosigner Signature (if applicable): CC: Deysi Castro DO ~ Signed [facility] Work Phone: Evaluation noteNo assessment information available [facility] Work Phone: Evaluation note* Diagnosis Onset Date Resolution Status Iron deficiency acute Peripheral vestibulopathy ac belkofski Restless legs syndrome acute Cerebral convexity meningioma chronic Cerebrovascular small vessel disease chronic Polyneuropathy chronic [facility] Work Phone: Evaluation note* Diagnosis History of colonic polyps- Primary Personal history of colonic polyps Encounter for screening for malignant neoplasm of colon Special screening for malignant neoplasms, colon [facility] Diagnosis Encounter for routine gynecologic examination in Medicare patient- Primary Encounter for Papanicolaou smear for cervical cancer screening [facility] Diagnosis Encounter for screening for malignant neoplasm of colon- Primary Special screening for malignant neoplasms, colon History of colonic polyps Personal history of colonic polyps Obesity, Class II, BMI 35-39.9 Obesity, unspecified [facility] Diagnosis Onset Date Resolution Status Mild cognitive impairment ac belkofski Cerebral convexity meningioma chronic Cerebrovascular small vessel disease chronic Polyneuropathy chronic Restless legs syndrome chron ic [facility] Work Phone: Evaluation note* Diagnosis Onset Date Resolution Status Fatigue acute Cerebral convexity meningioma chronic Cerebrovascular small vessel disease chronic Polyneuropathy chronic Restless legs syndrome chron ic History of iron deficiency r esolved Fatigue acute Obesity acute Osteoarthritis of right hip noneactive [facility] Work Phone: Evaluation note* Diagnosis Onset Date Resolution Status Cerebral convexity meningioma chronic Cerebrovascular small vessel disease chronic Fatigue chronic Polyneuropathy chronic Restless legs syndrome chron ic History of iron deficiency r esolved Fatigue chronic Obesity acute Osteoarthritis of right hip noneactive Fatigue chronic [facility] Work Phone: Evaluation note* Diagnosis Pleuritic pain- Primary Painful respiration [facility] Diagnosis Onset Date Resolution Status Cerebral convexity meningioma chronic Cerebrovascular small vessel disease chronic Fatigue chronic Polyneuropathy chronic Restless legs syndrome chron ic History of iron deficiency r esolved Fatigue chronic Obesity acute Osteoarthritis of right hip noneactive Fatigue chronic Hypoxia acute Pleural effusion acute Pneumonia acute [facility] Work Phone: Evaluation note* Diagnosis Onset Date Resolution Status Cerebral convexity meningioma chronic Cerebrovascular small vessel disease chronic Fatigue chronic Polyneuropathy chronic Restless legs syndrome chron ic History of iron deficiency r esolved Fatigue chronic Obesity acute Osteoarthritis of right hip noneactive Fatigue chronic Pleural effusion resolved [facility] Work Phone: Evaluation note* Diagnosis Onset Date Resolution Status Polyneuropathy chronic Restless legs syndrome chron ic History of iron deficiency r esolved Obesity acute Osteoarthritis of right hip noneactive Pleural effusion resolved [facility] Work Phone: Evaluation note* Diagnosis Onset Date Resolution Status Fatigue chronic Obesity acute Osteoarthritis of right hip noneactive Fatigue chronic Pleural effusion resolved Monoclonal gammopathy acute Fatigue chronic Polyneuropathy chronic Restless legs syndrome chron ic History of iron deficiency r esolved [facility] Work Phone: Evaluation note* Diagnosis Onset Date Resolution Status Fatigue chronic Obesity acute Osteoarthritis of right hip noneactive Fatigue chronic Pleural effusion resolved Monoclonal gammopathy acute Fatigue chronic Polyneuropathy chronic Restless legs syndrome chron ic History of iron deficiency r esolved Lumbar radiculopathy, right acute Myalgia acute Dyspnea on exertion acute [facility] Work Phone: Evaluation note* Diagnosis Surgery follow-up- Primary Follow-up examination, following unspecified surgery [facility]* Diagnosis 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)- Primary Empyema without mention of fistula [facility] Diagnosis Surgery follow-up Follow-up examination, following unspecified surgery [facility]* Diagnosis Onset Date Resolution Status Obesity acute Osteoarthritis of right hip noneactive Fatigue chronic Pleural effusion resolved Monoclonal gammopathy acute Fatigue chronic Polyneuropathy chronic Restless legs syndrome chron ic History of iron deficiency r esolved Lumbar radiculopathy, right acute Myalgia acute Dyspnea on exertion acute Abnormal serum total protein level acute Hematuria acute Bilateral adrenal adenomas c hronic Elevated serum immunoglobulin free light chain level chronic [facility] Work Phone: Evaluation note* Diagnosis Onset Date Resolution Status Pleural effusion resolved Monoclonal gammopathy acute Fatigue chronic Polyneuropathy chronic Restless legs syndrome chron ic History of iron deficiency r esolved Lumbar radiculopathy, right acute Myalgia acute Dyspnea on exertion acute Abnormal serum total protein level acute Hematuria acute Bilateral adrenal adenomas c hronic Elevated serum immunoglobulin free light chain level chronic Nonhealing nonsurgical wound with fat layer exposed acute Obesity acute Open wound of right chest wall acute COPD (chronic obstructive pulmonary disease) [facility] Work Phone: Evaluation note* Diagnosis 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) Empyema without mention of fistula [facility] Diagnosis Onset Date Resolution Status Monoclonal gammopathy acute Fatigue chronic Polyneuropathy chronic Restless legs syndrome chron ic History of iron deficiency r esolved Lumbar radiculopathy, right acute Myalgia acute Dyspnea on exertion acute Abnormal serum total protein level acute Hematuria acute Bilateral adrenal adenomas c hronic Elevated serum immunoglobulin free light chain level chronic Nonhealing nonsurgical wound with fat layer exposed acute Obesity acute Open wound of right chest wall acute COPD (chronic obstructive pulmonary disease) chronic Nonhealing nonsurgical wound with fat layer exposed acute Obesity acute Open wound of right chest wall acute Ulcer of chest wall with fat layer exposed acute COPD (chronic obstructive pulmonary disease) [facility] Work Phone: Evaluation note* Diagnosis Onset Date Resolution Status Monoclonal gammopathy acute Fatigue chronic Polyneuropathy chronic Restless legs syndrome chron ic History of iron deficiency r esolved Lumbar radiculopathy, right acute Myalgia acute Dyspnea on exertion acute Abnormal serum total protein level acute Hematuria acute Bilateral adrenal adenomas c hronic Elevated serum immunoglobulin free light chain level chronic Nonhealing nonsurgical wound with fat layer exposed acute Obesity acute Open wound of right chest wall acute COPD (chronic obstructive pulmonary disease) chronic Nonhealing nonsurgical wound with fat layer exposed acute Obesity acute Open wound of right chest wall acute Ulcer of chest wall with fat layer exposed acute COPD (chronic obstructive pulmonary disease) chronic Nonhealing nonsurgical wound with fat layer exposed acute Obesity acute Open wound of right chest wall acute Ulcer of chest wall with fat layer exposed acute COPD (chronic obstructive pulmonary disease) chronic [facility] Work Phone: Evaluation note* Diagnosis Onset Date Resolution Status Abnormal serum total protein level acute Hematuria acute Bilateral adrenal adenomas c hronic Elevated serum immunoglobulin free light chain level chronic Nonhealing nonsurgical wound with fat layer exposed acute Obesity acute Open wound of right chest wall acute COPD (chronic obstructive pulmonary disease) chronic Nonhealing nonsurgical wound with fat layer exposed acute Obesity acute Open wound of right chest wall acute Ulcer of chest wall with fat layer exposed acute COPD (chronic obstructive pulmonary disease) chronic Nonhealing nonsurgical wound with fat layer exposed acute Obesity acute Open wound of right chest wall acute Ulcer of chest wall with fat layer exposed acute COPD (chronic obstructive pulmonary disease) chronic Peripheral vestibulopathy ac belkofski Fatigue chronic Polyneuropathy chronic Restless legs syndrome chron ic History of iron deficiency r esolved [facility] Work Phone: Evaluation note* Diagnosis Onset Date Resolution Status Nonhealing nonsurgical wound with fat layer exposed acute Obesity acute Open wound of right chest wall acute Ulcer of chest wall with fat layer exposed acute COPD (chronic obstructive pulmonary disease) chronic Nonhealing nonsurgical wound with fat layer exposed acute Obesity acute Open wound of right chest wall acute Ulcer of chest wall with fat layer exposed acute COPD (chronic obstructive pulmonary disease) chronic Peripheral vestibulopathy ac belkofski Fatigue chronic Polyneuropathy chronic Restless legs syndrome chron ic History of iron deficiency r esolved Fatigue chronic Fatigue chronic [facility] Work Phone: Evaluation note* Diagnosis Onset Date Resolution Status Peripheral vestibulopathy ac belkofski Fatigue chronic Polyneuropathy chronic Restless legs syndrome chron ic History of iron deficiency r esolved Fatigue chronic Fatigue chronic Hematuria acute Bilateral adrenal adenomas c hronic Elevated serum immunoglobulin free light chain level chronic Fatigue chronic Dysuria acute [facility] Work Phone: Evaluation note* Diagnosis Onset Date Resolution Status Fatigue chronic Fatigue chronic Hematuria acute Bilateral adrenal adenomas c hronic Elevated serum immunoglobulin free light chain level chronic Fatigue chronic Dysuria acute Peripheral vestibulopathy ac belkofski Fatigue chronic Polyneuropathy chronic Restless legs syndrome chron ic History of iron deficiency r esolved Lumbar radiculopathy acute Other intervertebral disc degeneration, lumbar region acute [facility] Work Phone: Evaluation note* Diagnosis Onset Date Resolution Status Fatigue chronic Fatigue chronic Hematuria acute Bilateral adrenal adenomas c hronic Elevated serum immunoglobulin free light chain level chronic Fatigue chronic Dysuria acute Peripheral vestibulopathy ac belkofski Fatigue chronic Polyneuropathy chronic Restless legs syndrome chron ic History of iron deficiency r esolved Lumbar radiculopathy acute Other intervertebral disc degeneration, lumbar region acute Lumbar radiculopathy acute Other intervertebral disc degeneration, lumbar region acute Spinal stenosis of lumbar re gion with neurogenic claudication acute [facility] Work Phone: Evaluation note* Diagnosis Onset Date Resolution Status Dyspnea on exertion acute Abnormal serum total protein level acute Hematuria acute Bilateral adrenal adenomas c hronic Elevated serum immunoglobulin free light chain level chronic Nonhealing nonsurgical wound with fat layer exposed acute Obesity acute Open wound of right chest wall acute COPD (chronic obstructive pulmonary disease) chronic Nonhealing nonsurgical wound with fat layer exposed acute Obesity acute Open wound of right chest wall acute Ulcer of chest wall with fat layer exposed acute COPD (chronic obstructive pulmonary disease) chronic Nonhealing nonsurgical wound with fat layer exposed acute Obesity acute Open wound of right chest wall acute Ulcer of chest wall with fat layer exposed acute COPD (chronic obstructive pulmonary disease) chronic [facility] Work Phone: Evaluation note* Diagnosis Acute left ankle pain- Primary Acute [facility] Discharge instructionsAmbulatory Orders* Physical Therapy Referral Location: None Selected * Hematology & Oncology Location: None Selected [facility] Work Phone: Progress note Author Neymar Masters [facility] January 25, 2023 4:33pm Note Date/Time January 25, 2023 4:33p [facility] Medical Records Department [address] [place] [address] Progress Note - Hospitalist 01/25/231631 MR#: [id number] Acct: [id number] Name: ART BLUE Rep #:[id number] : 1955 67 From: Neymar Masters DO PCP: Deysi Castro, DO Status:ADM I N Location: [place] [address] Hospitalist Note Patient was ambulated on room air today, her pulse ox was 84%, her pulse ox at rest without oxygen was 90%. Patient required 3 L of oxygen via nasal cannula to maintain her pulse ox at 94% when ambulating. Patient is expected to wear her oxygen in her home and outside of her home during activities of daily living, she will require portable oxygen to fulfill this. Patient is aware and has agreed to use the oxygen accordingly. 01/25/231632 <Electronically signed by Neymar Masters DO> Cosigner Signature (if applicable): CC: ~ Signed [facility] Work Phone: Relnnq for referral (narrative)* Outpatient Procedure (Routine) - Closed Specialty Diagnoses / Procedures Referred By Tato sierra Referred To Contact [facility] Diagnoses History of colonic polyps Procedures COLONOSCOPY SCREENING COLONOSCOPY FLX DX W/COLLJ SPEC WHEN Allyson Red PA-C [address] [place] [address] [facility] [address] [place] [address] Referral ID Status Reason Start Date Expiration Date V isits Requested Visits Authorized [id number] Closed Auto-Generated Referral Financial Clearance Not Required 04/28/2022 04/28/2023 1 1 [facility] for referral (narrative)No reason for referral [facility] Work Phone: Recamq for visit Narrative* Outpatient Procedure (Routine) - Closed Specialty Diagnoses / Procedures Referred By Tato sierra Referred To Contact [facility] Diagnoses History of colonic polyps Procedures COLONOSCOPY SCREENING COLONOSCOPY FLX DX W/COLLJ SPEC WHEN Allyson Red PA-C [address] 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, [employer]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.[employer] [address] [place] [address] Phone: tel: fax: [place] [phone] Referral ID Status Reason Start Date Expiration Date V isits Requested Visits Authorized [id number] Closed Auto-Generate d Referral 12/27/2024 01/26/2026 1 1 [facility] Summary Purpose Family History No Family History Records Found Relationship Condition Age at Onset Recorded Date/T cristina mother Cardiac disease Unknown Hypertension Unknown father Cardiac disease Unknown Cerebrovascular accident (CVA) Unknown brother Malignant neoplasm Unknown Advance Directives No Advanced Directives Records Found Advance Directive Response Recorded Date/ Time Advance Directives No March 10:55am Living Will Yes April 05, 2021 10:55am Power of Clerk Specialist Yes March 10:55am Advance Directive Response Recorded Date/ Time Advance Directives No March 9:55am Living Will Yes April 05, 2021 9:55am Power of Clerk Specialist Yes March 9:55am Advance Directive Response Recorded Date/ Time Name of Medical Power of Clerk Specialist January 20, 2023 11:55am Advance Directives No March 10:55am Living Will Yes January 20, 2023 1 1:55am Power of Clerk Specialist Yes January 20, 2023 11:55am Advance Directive Response Recorded Date/ Time Name of Medical Power of Clerk Specialist January 20, 2023 11:55am Advance Directives No March 10:55am Living Will No January 23, 2023 3 :03am Power of Clerk Specialist No January 23, 2023 3:03am Advance Directive Response Recorded Date/ Time Name of Medical Power of Clerk Specialist January 20, 2023 11:55am Advance Directives No March 10:55am Living Will No January 23, 2023 9 :35am Power of Clerk Specialist No January 23, 2023 9:35am Advance Directive Response Recorded Date/ Time Name of Medical Power of Clerk Specialist January 20, 2023 11:55am Advance Directives No March 10:55am Living Will Yes March 13 1:48pm Power of Clerk Specialist Yes March 13 023 1:48pm Latest Code Status on File Code Status Date Activated Date Inactivated Comments Full Code 03/14/2023 6:28 AM 03/24/2023 7:10 PM Question Answer Comments Full Code Order Discussed With: Patient Advance Directive Response Recorded Date/ Time Name of Medical Power of Clerk Specialist January 20, 2023 11:55am Name of Medical Power of Clerk Specialist ON FILE March 13, 2023 1:48pm Advance Directives No March 10:55am Living Will Yes March 13 1:48pm Power of Clerk Specialist Yes March 13 023 1:48pm Advance Directive Response Recorded Date/ Time Name of Medical Power of Clerk Specialist ON FILE March 13, 2023 1:48pm Advance Directives No March 10:55am Living Will Yes March 13 1:48pm Power of Clerk Specialist Yes March 13 2 023 1:48pm Advance Directive Response Recorded Date/ Time Name of Medical Power of Clerk Specialist ON FILE March 13, 2023 12:48pm Advance Directives No March 9:55am Living Will Yes March 13 12:48pm Power of Clerk Specialist Yes March 13 023 12:48pm Advance Directive Response Recorded Date/ Time Advance Directives No March 9:55am Living Will Yes March 13 12:48pm Power of Clerk Specialist Yes March 13 023 12:48pm Advance Directive Response Recorded Date/ Time Advance Directives No March 10:55am Living Will Yes March 13 1:48pm Power of Clerk Specialist Yes March 13 023 1:48pm Advance Directive Response Recorded Date/ Time Living Will Yes March 13 1:48pm Power of Clerk Specialist Yes March 13 023 1:48pm Advance Directives No March 10:55am Advance Directive Response Recorded Date/ Time Living Will Yes March 13 1:48pm Do you have a Healthcare Power of Clerk Specialist? Yes March 13, 2023 1:48pm Advance Directives No March 10:55am Date Activated Date Inactivated Comments 03/14/2023 6:28 AM 03/24/2023 7:10 PM Question Answer Comments Full Code Order Discussed With: Patient Date Activated Date Inactivated Comments 03/14/2023 6:28 AM 03/24/2023 7:10 PM Question Answer Comments Full Code Order Discussed With: Patient Chief Complaint and Reason for Visit Chief Complaint NODULES Chief Complaint NODULES 6 M FU EORDER Reason for Visit Iron deficiency Peripheral vestibulopathy Restless legs syndrome Cerebral convexity meningioma Cerebrovascular small vessel disease Polyneuropathy Chief Complaint 6 M FU EORDER SCREENING/OSTEO Reason for Visit Iron deficiency Peripheral vestibulopathy Restless legs syndrome Cerebral convexity meningioma Cerebrovascular small vessel disease Polyneuropathy Chief Complaint 6 M FU EORDER SCREENING/OSTEO EORDER Reason for Visit Iron deficiency Peripheral vestibulopathy Restless legs syndrome Cerebral convexity meningioma Cerebrovascular small vessel disease Polyneuropathy Chief Complaint SCREENING/OSTEO EORDER XRAY HIP PAIN Chief Complaint SCREENING/OSTEO EORDER XRAY HIP PAIN 4 M FU PRIORITY Benign neoplasm of cerebral meninges Reason for Visit Mild cognitive impai rment Cerebral convexity meningioma Cerebrovascular small vessel disease Polyneuropathy Restless legs syndrome Chief Complaint EORDER XRAY HIP PAIN 4 M FU PRIORITY Benign neoplasm of cerebral meninges Reason for Visit Mild cognitive impai rment Cerebral convexity meningioma Cerebrovascular small vessel disease Polyneuropathy Restless legs syndrome Chief Complaint 4 M FU B12 inject RIGHT HIP RM 1 OA R HIP RX HERE Reason for Visit Fatigue Cerebral convexity meningioma Cerebrovascular small vessel disease Polyneuropathy Restless legs syndrome History of iron deficiency Fatigue Obesity Osteoarthritis of right hip Chief Complaint 4 M FU B12 inject RIGHT HIP RM 1 B12 inject OA R HIP RX HERE SOB Reason for Visit Cerebral convexity m eningioma Cerebrovascular small vessel disease Fatigue Polyneuropathy Restless legs syndrome History of iron deficiency Fatigue Obesity Osteoarthritis of right hip Fatigue Chief Complaint 4 M FU B12 inject RIGHT HIP RM 1 B12 inject OA R HIP RX HERE SOB PNEUMONIA Reason for Visit Cerebral convexity m eningioma Cerebrovascular small vessel disease Fatigue Polyneuropathy Restless legs syndrome History of iron deficiency Fatigue Obesity Osteoarthritis of right hip Fatigue Hypoxia Pleural effusion Pneumonia Chief Complaint 4 M FU B12 inject RIGHT HIP RM 1 B12 inject OA R HIP RX HERE SOB PNEUMONIA Pneumonia Pneumonia Pneumonia Reason for Visit Cerebral convexity m eningioma Cerebrovascular small vessel disease Fatigue Polyneuropathy Restless legs syndrome History of iron deficiency Fatigue Obesity Osteoarthritis of right hip Fatigue Hypoxia Pleural effusion Pneumonia Chief Complaint 4 M FU B12 inject RIGHT HIP RM 1 B12 inject OA R HIP RX HERE SOB PNEUMONIA Pneumonia Pneumonia Pneumonia Reason for Visit Cerebral convexity m eningioma Cerebrovascular small vessel disease Fatigue Polyneuropathy Restless legs syndrome History of iron deficiency Fatigue Obesity Osteoarthritis of right hip Fatigue Pleural effusion Chief Complaint 4 M FU B12 inject RIGHT HIP RM 1 B12 inject OA R HIP RX HERE SOB PNEUMONIA Pneumonia Pneumonia Pneumonia LABS AND XRAY Reason for Visit Polyneuropathy Restless legs syndrome History of iron deficiency Obesity Osteoarthritis of right hip Pleural effusion Chief Complaint B12 inject RIGHT HIP RM 1 B12 inject OA R HIP RX HERE SOB PNEUMONIA Pneumonia Pneumonia Pneumonia LABS AND XRAY HX OF VENOUS THROMBOSIS AND EMBOLISM 4 M FU Reason for Visit Fatigue Obesity Osteoarthritis of right hip Fatigue Pleural effusion Monoclonal gammopathy Fatigue Polyneuropathy Restless legs syndrome History of iron deficiency Chief Complaint B12 inject RIGHT HIP RM 1 B12 inject OA R HIP RX HERE SOB PNEUMONIA Pneumonia Pneumonia Pneumonia LABS AND XRAY HX OF VENOUS THROMBOSIS AND EMBOLISM 4 M FU trigger point injection COUGH, FEVER, BODY ACHE EORDER R06.00 SOB J91.8 Amb Documentation Reason for Visit Fatigue Obesity Osteoarthritis of right hip Fatigue Pleural effusion Monoclonal gammopathy Fatigue Polyneuropathy Restless legs syndrome History of iron deficiency Lumbar radiculopathy, right Myalgia Dyspnea on exertion Chief Complaint RIGHT HIP RM 1 B12 inject OA R HIP RX HERE SOB PNEUMONIA Pneumonia Pneumonia Pneumonia LABS AND XRAY HX OF VENOUS THROMBOSIS AND EMBOLISM 4 M FU trigger point injection COUGH, FEVER, BODY ACHE EORDER R06.00 SOB J91.8 Endoscopy- ADD EORDER- INR- PRE-OP-DR DANIEL Amb Documentation NEW PT - MGUS 1WK LABS PRIOR CHEST XRAY Reason for Visit Obesity Osteoarthritis of right hip Fatigue Pleural effusion Monoclonal gammopathy Fatigue Polyneuropathy Restless legs syndrome History of iron deficiency Lumbar radiculopathy, right Myalgia Dyspnea on exertion Abnormal serum total protein level Hematuria Bilateral adrenal adenomas Elevated serum immunoglobulin free light chain level Chief Complaint PNEUMONIA Pneumonia Pneumonia Pneumonia LABS AND XRAY HX OF VENOUS THROMBOSIS AND EMBOLISM 4 M FU trigger point injection COUGH, FEVER, BODY ACHE EORDER R06.00 SOB J91.8 Endoscopy- ADD EORDER- INR- PRE-OP-DR FREDY De La Vega Documentation NEW PT - MGUS 1WK LABS PRIOR CHEST XRAY WOUND Reason for Visit Pleural effusion Monoclonal gammopathy Fatigue Polyneuropathy Restless legs syndrome History of iron deficiency Lumbar radiculopathy, right Myalgia Dyspnea on exertion Abnormal serum total protein level Hematuria Bilateral adrenal adenomas Elevated serum immunoglobulin free light chain level Nonhealing nonsurgical wound with fat layer exposed Obesity Open wound of right chest wall COPD (chronic obstructive pulmonary disease) Chief Complaint HX OF VENOUS THROMBO SIS AND EMBOLISM 4 M FU trigger point injection COUGH, FEVER, BODY ACHE EORDER R06.00 SOB J91.8 Endoscopy- ADD EORDER- INR- PRE-OP-DR FREDY De La Vega Documentation NEW PT - MGUS 1WK LABS PRIOR CHEST XRAY WOUND WOUND Reason for Visit Monoclonal gammopath y Fatigue Polyneuropathy Restless legs syndrome History of iron deficiency Lumbar radiculopathy, right Myalgia Dyspnea on exertion Abnormal serum total protein level Hematuria Bilateral adrenal adenomas Elevated serum immunoglobulin free light chain level Nonhealing nonsurgical wound with fat layer exposed Obesity Open wound of right chest wall COPD (chronic obstructive pulmonary disease) Nonhealing nonsurgical wound with fat layer exposed Obesity Open wound of right chest wall Ulcer of chest wall with fat layer exposed COPD (chronic obstructive pulmonary disease) Chief Complaint 4 M FU trigger point injection COUGH, FEVER, BODY ACHE EORDER R06.00 SOB J91.8 Endoscopy- ADD EORDER- INR- PRE-OP-DR FREDY De La Vega Documentation NEW PT - MGUS 1WK LABS PRIOR CHEST XRAY WOUND WOUND WOUND Reason for Visit Monoclonal gammopath y Fatigue Polyneuropathy Restless legs syndrome History of iron deficiency Lumbar radiculopathy, right Myalgia Dyspnea on exertion Abnormal serum total protein level Hematuria Bilateral adrenal adenomas Elevated serum immunoglobulin free light chain level Nonhealing nonsurgical wound with fat layer exposed Obesity Open wound of right chest wall COPD (chronic obstructive pulmonary disease) Nonhealing nonsurgical wound with fat layer exposed Obesity Open wound of right chest wall Ulcer of chest wall with fat layer exposed COPD (chronic obstructive pulmonary disease) Nonhealing nonsurgical wound with fat layer exposed Obesity Open wound of right chest wall Ulcer of chest wall with fat layer exposed COPD (chronic obstructive pulmonary disease) Chief Complaint NEW PT - MGUS 6 MONTH, LABS PRIOR, REVIEW CT 1WK LABS PRIOR CHEST XRAY WOUND WOUND WOUND 4 M FU CONCERN FOR UTI Reason for Visit Abnormal serum total protein level Hematuria Bilateral adrenal adenomas Elevated serum immunoglobulin free light chain level Nonhealing nonsurgical wound with fat layer exposed Obesity Open wound of right chest wall COPD (chronic obstructive pulmonary disease) Nonhealing nonsurgical wound with fat layer exposed Obesity Open wound of right chest wall Ulcer of chest wall with fat layer exposed COPD (chronic obstructive pulmonary disease) Nonhealing nonsurgical wound with fat layer exposed Obesity Open wound of right chest wall Ulcer of chest wall with fat layer exposed COPD (chronic obstructive pulmonary disease) Peripheral vestibulopathy Fatigue Polyneuropathy Restless legs syndrome History of iron deficiency Chief Complaint WOUND WOUND 4 M FU CONCERN FOR UTI B12 inject B12 inject Reason for Visit Nonhealing nonsurgic al wound with fat layer exposed Obesity Open wound of right chest wall Ulcer of chest wall with fat layer exposed COPD (chronic obstructive pulmonary disease) Nonhealing nonsurgical wound with fat layer exposed Obesity Open wound of right chest wall Ulcer of chest wall with fat layer exposed COPD (chronic obstructive pulmonary disease) Peripheral vestibulopathy Fatigue Polyneuropathy Restless legs syndrome History of iron deficiency Fatigue Fatigue Chief Complaint WOUND WOUND 4 M FU CONCERN FOR UTI B12 inject B12 inject 6 MONTH, LABS PRIOR, REVIEW CT NEOPLASM OF LEFT/RIGHT ADRENAL GLANDS Reason for Visit Nonhealing nonsurgic al wound with fat layer exposed Obesity Open wound of right chest wall Ulcer of chest wall with fat layer exposed COPD (chronic obstructive pulmonary disease) Nonhealing nonsurgical wound with fat layer exposed Obesity Open wound of right chest wall Ulcer of chest wall with fat layer exposed COPD (chronic obstructive pulmonary disease) Peripheral vestibulopathy Fatigue Polyneuropathy Restless legs syndrome History of iron deficiency Fatigue Fatigue Chief Complaint 4 M FU CONCERN FOR UTI B12 inject B12 inject NEOPLASM OF LEFT/RIGHT ADRENAL GLANDS 6 MONTH, LABS PRIOR, REVIEW CT 6 MONTH, LABS PRIOR, REVIEW CT B12 inject PAIN- COPY PCP POSSIBLE UTI Reason for Visit Peripheral vestibulo jerel Fatigue Polyneuropathy Restless legs syndrome History of iron deficiency Fatigue Fatigue Hematuria Bilateral adrenal adenomas Elevated serum immunoglobulin free light chain level Fatigue Dysuria Chief Complaint CONCERN FOR UTI B12 inject B12 inject NEOPLASM OF LEFT/RIGHT ADRENAL GLANDS 6 MONTH, LABS PRIOR, REVIEW CT 6 MONTH, LABS PRIOR, REVIEW CT B12 inject PAIN- COPY PCP POSSIBLE UTI 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 Room 2 LUMBAR RADICULOPATHY PAIN- COPY PCP/ ADD KUB XRAY Reason for Visit Fatigue Fatigue Hematuria Bilateral adrenal adenomas Elevated serum immunoglobulin free light chain level Fatigue Dysuria Peripheral vestibulopathy Fatigue Polyneuropathy Restless legs syndrome History of iron deficiency Lumbar radiculopathy Other intervertebral disc degeneration, lumbar region Chief Complaint B12 inject B12 inject NEOPLASM OF LEFT/RIGHT ADRENAL GLANDS 6 MONTH, LABS PRIOR, REVIEW CT 6 MONTH, LABS PRIOR, REVIEW CT B12 inject PAIN- COPY PCP POSSIBLE UTI 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 Room 2 LUMBAR RADICULOPATHY PAIN- COPY PCP/ ADD KUB XRAY LUMBAR SPINE Reason for Visit Fatigue Fatigue Hematuria Bilateral adrenal adenomas Elevated serum immunoglobulin free light chain level Fatigue Dysuria Peripheral vestibulopathy Fatigue Polyneuropathy Restless legs syndrome History of iron deficiency Lumbar radiculopathy Other intervertebral disc degeneration, lumbar region Lumbar radiculopathy Other intervertebral disc degeneration, lumbar region Spinal stenosis of lumbar region with neurogenic claudication Chief Complaint COUGH, FEVER, BODY A KADY EORDER R06.00 SOB J91.8 Endoscopy- ADD EORDER- INR- PRE-OP-DR DANIEL Amb Documentation NEW PT - MGUS 1WK LABS PRIOR CHEST XRAY WOUND WOUND WOUND Reason for Visit Dyspnea on exertion Abnormal serum total protein level Hematuria Bilateral adrenal adenomas Elevated serum immunoglobulin free light chain level Nonhealing nonsurgical wound with fat layer exposed Obesity Open wound of right chest wall COPD (chronic obstructive pulmonary disease) Nonhealing nonsurgical wound with fat layer exposed Obesity Open wound of right chest wall Ulcer of chest wall with fat layer exposed COPD (chronic obstructive pulmonary disease) Nonhealing nonsurgical wound with fat layer exposed Obesity Open wound of right chest wall Ulcer of chest wall with fat layer exposed COPD (chronic obstructive pulmonary disease) Chief Complaint Admit Date Nicotine dependence, cigarettes, uncompl icated July 07, 2024 12:50pm 9 M FU July 31, 2024 1: 29pm OSTEO August 04, 2024 1 0:38am B12 inject September 02, 2024 10:44am 6 MONTH, LABS PRIOR, REVIEW CT September 1:07pm 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 2024 1:43pm B12 inject October 02, 2024 11: 25am 1YR LABS PRIOR REVIEW CT October 06 10:58am Reason for Visit Admit Date Peripheral vestibulopathy July 31 025 1:29pm Fatigue July 31, 2024 1: 29pm Restless legs syndrome July 31, 2024 1:29pm Fatigue September 02, 2024 10:44am Fatigue October 02, 2024 11: 25am Hematuria October 06, 2024 10: 58am Bilateral adrenal adenomas October 06 10:58am Elevated serum immunoglobulin free light chain level October 06, 2024 10:58am Reason for Visit Admit Date Peripheral vestibulopathy July 31 025 1:29pm Fatigue July 31, 2024 1: 29pm Restless legs syndrome July 31, 2024 1:29pm Fatigue September 02, 2024 10:44am Fatigue October 02, 2024 11: 25am Bilateral adrenal adenomas October 06 025 10:58am Elevated serum immunoglobulin free light chain level October 06, 2024 10:58am Fatty liver October 06, 2024 10: 58am Chief Complaint Admit Date 9 M FU July 31, 2024 1: 29pm OSTEO August 04, 2024 1 0:38am B12 inject September 02, 2024 10:44am 6 MONTH, LABS PRIOR, REVIEW CT September 1:07pm 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 2024 1:43pm B12 inject October 02, 2024 11: 25am 1YR LABS PRIOR REVIEW CT October 06 10:58am B12 inject November 06, 2024 11: 28am LUMBAR SPINE November 07, 2024 1:4 7pm Room 3 November 07, 2024 1:5 9pm Reason for Visit Admit Date Peripheral vestibulopathy July 31 025 1:29pm Fatigue July 31, 2024 1: 29pm Restless legs syndrome July 31, 2024 1:29pm Fatigue September 02, 2024 10:44am Fatigue October 02, 2024 11: 25am Bilateral adrenal adenomas March 17th, 2 025 10:58am Elevated serum immunoglobulin free light chain level October 06, 2024 10:58am Fatty liver October 06, 2024 10: 58am Fatigue November 06, 2024 11: 28am Lumbar radiculopathy November 07, 2024 1: 47pm Other intervertebral disc degeneration, lumbar region November 07, 2024 1:47pm Primary osteoarthritis of right hip Apri l 2024 1:47pm Spinal stenosis of lumbar re gion with neurogenic claudication November 07, 2024 1:47pm Chief Complaint Admit Date B12 inject September 02, 2024 10:44am 6 MONTH, LABS PRIOR, REVIEW CT September 1:07pm 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 2024 1:43pm B12 inject October 02, 2024 11: 25am 1YR LABS PRIOR REVIEW CT October 06 10:58am B12 inject November 06, 2024 11: 28am LUMBAR SPINE November 07, 2024 1:4 7pm Room 3 November 07, 2024 1:5 9pm RIGHT HIP November 21, 2024 9:59am RM 2 November 21, 2024 10:21a m B12 inject December 08, 2024 11:32 am Reason for Visit Admit Date Fatigue September 02, 2024 10:44am Fatigue October 02, 2024 11: 25am Bilateral adrenal adenomas October 06, 2 025 10:58am Elevated serum immunoglobulin free light chain level October 06, 2024 10:58am Fatty liver October 06, 2024 10: 58am Fatigue November 06, 2024 11: 28am Lumbar radiculopathy November 07, 2024 1: 47pm Other intervertebral disc degeneration, lumbar region November 07, 2024 1:47pm Primary osteoarthritis of right hip Apri l 2024 1:47pm Spinal stenosis of lumbar re gion with neurogenic claudication November 07, 2024 1:47pm Obesity November 21, 2024 9:59am Primary osteoarthritis of right hip November 21, 2024 9:59am Spinal stenosis of lumbar re gion with neurogenic claudication November 21, 2024 9:59am Polyneuropathy November 21, 2024 9:59am Medications Administered Section Inactive Administered Medications - up to 3 most recent administrations Medication Order MAR Action Action Date Dose Rate Site lactated ringers iv infusion 30 mL/hr, INTRAVENOUS, CONTINUOUS, Starting on Sun06/28/22 at 1100, Until Sun06/28/22 at 1220, Preprocedure New Bag/Syringe/Bottle 06/28/2022 10:53 AM EST 30 mL/hr 30 mL/hr Additional Source Comments INFORMATION SOURCE (unrecogn ized section and content) DATE CREATED AUTHOR 02/10/2020 [facility] DATE CREATED AUTHOR AUTHOR'S ORGANIZ ATION 06/29/2022 [facility] DATE CREATED AUTHOR AUTHOR'S ORGANIZ ATION 12/28/2024 [facility] DATE CREATED AUTHOR AUTHOR'S ORGANIZ ATION 01/04/2025 [facility] Goals (unrecognized section and content) Goals may be documented in a n alternate sectionGoals may be documented in an alternate sectionGoals may be documented in an alternate sectionGoals may be documented in an alternate sectionGoals may be documented in an alternate sectionGoals may be documented in an alternate sectionGoals may be documented in an alternate sectionGoals may be documented in an alternate sectionGoals may be documented in an alternate sectionGoals may be documented in an alternate sectionGoals may be documented in an alternate sectionGoals may be documented in an alternate sectionGoals may be documented in an alternate sectionGoals may be documented in an alternate sectionGoals may be documented in an alternate sectionGoals may be documented in an alternate sectionGoals may be documented in an alternate sectionGoals may be documented in an alternate sectionGoals may be documented in an alternate sectionGoals may be documented in an alternate sectionGoals may be documented in an alternate sectionGoals may be documented in an alternate sectionGoals may be documented in an alternate sectionGoals may be documented in an alternate sectionGoals may be documented in an alternate sectionGoals may be documented in an alternate section Source Comments (unrecognize d section and content) In the event this informatio n is protected by the Federal Confidentiality of Alcohol and Drug Abuse Patient Records regulations: The Federal rules restrict any use of the information to criminally investigate or prosecute any alcohol or drug abuse patient.[facility] the event this information is protected by the Federal Confidentiality of Alcohol and Drug Abuse Patient Records regulations: The Federal rules restrict any use of the information to criminally investigate or prosecute any alcohol or drug abuse patient.[facility] the event this information is protected by the Federal Confidentiality of Alcohol and Drug Abuse Patient Records regulations: The Federal rules restrict any use of the information to criminally investigate or prosecute any alcohol or drug abuse patient.[facility] the event this information is protected by the Federal Confidentiality of Alcohol and Drug Abuse Patient Records regulations: The Federal rules restrict any use of the information to criminally investigate or prosecute any alcohol or drug abuse patient.[facility] the event this information is protected by the Federal Confidentiality of Alcohol and Drug Abuse Patient Records regulations: The Federal rules restrict any use of the information to criminally investigate or prosecute any alcohol or drug abuse patient.[facility] the event this information is protected by the Federal Confidentiality of Alcohol and Drug Abuse Patient Records regulations: The Federal rules restrict any use of the information to criminally investigate or prosecute any alcohol or drug abuse patient.[facility] the event this information is protected by the Federal Confidentiality of Alcohol and Drug Abuse Patient Records regulations: The Federal rules restrict any use of the information to criminally investigate or prosecute any alcohol or drug abuse patient.[facility] the event this information is protected by the Federal Confidentiality of Alcohol and Drug Abuse Patient Records regulations: The Federal rules restrict any use of the information to criminally investigate or prosecute any alcohol or drug abuse patient.[facility] the event this information is protected by the Federal Confidentiality of Alcohol and Drug Abuse Patient Records regulations: The Federal rules restrict any use of the information to criminally investigate or prosecute any alcohol or drug abuse patient.[facility] HospitalIn the event this information is protected by the Federal Confidentiality of Alcohol and Drug Abuse Patient Records regulations: The Federal rules restrict any use of the information to criminally investigate or prosecute any alcohol or drug abuse patient.[facility] HospitalIn the event this information is protected by the Federal Confidentiality of Alcohol and Drug Abuse Patient Records regulations: The Federal rules restrict any use of the information to criminally investigate or prosecute any alcohol or drug abuse patient.[facility] Hospital[facility] the event this information is protected by the Federal Confidentiality of Alcohol and Drug Abuse Patient Records regulations: The Federal rules restrict any use of the information to criminally investigate or prosecute any alcohol or drug abuse patient.[facility] HospitalIn the event this information is protected by the Federal Confidentiality of Alcohol and Drug Abuse Patient Records regulations: The Federal rules restrict any use of the information to criminally investigate or prosecute any alcohol or drug abuse patient.[facility] Reason for Visit (unrecogniz ed section and content) Reason Comments Consult colonoscopy Reason Comments Well Woman Reason Comments Cough R sided mid back bebo n, SOB, intermittent fevers x2 days Reason Comments Appointment Reason Comments Established Patient Reason Comments Radio Main J1 Reason Onset Date Comments Refill Request 04/16/2023 Reason Comments Minor Injuries (Sprains, Str ains, Minor Joint Pain) Left ankle pain x 5 months, fell 2 days ago and now pain is worse Care Teams (unrecognized sec tion and content) 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 Jeet Diaz III, MD Family Provider Active Dr. Autumn Almanzar MD Primary Care Provider Active Team Status: Inactive Member Role Status Dates Dr. Autumn Almanzar MD Primary Care Provider, Referr ing Provider Active Dr. Gilberto Rasmussen MD Attending Provider Active Team Status: Inactive Member Role Status Dates Dr. Autumn Almanzar MD Primary Care Provider Active Josefa Rocha [employer]ATE [employer], [employer]-C Attending Provider Active Team Status: Inactive Member Role Status Dates Dr. Autumn Almanzar MD Primary Care Provider Active Dr. Gilberto Rasmussen MD Attending Provider, Referring Provider Active Team Status: Inactive Member Role Status Dates Dr. Autumn Almanzar MD Primary Care Pr ovider, Attending Provider, Referring Provider Active Team Status: Active Member Role Status Dates Dr. Jeet Diaz III, MD Family Provider Active Deysi Castro DO Primary Care Provider Active Team Status: Inactive Member Role Status Dates Deysi Castro DO Primary Care Provider, Referring Provider Active Dr. Gilberto Rasmussen MD Attending Provider Active Team Status: Inactive Member Role Status Dates Dr. Gilberto Rasmussen MD Attending Provider, Referring Provider Active Deysi Castro DO Primary Care Provider Active Team Status: Inactive Member Role Status Dates Deysi Castro DO Primary Care Provider Active Dr. Gilberto Rasmussen MD Attending Provider, Referring Provider Active Team Status: Inactive Member Role Status Dates Deysi Castro DO Primary Care Provider, Referring Provider Active Dr. Jose Ramon Terry , DO Attending Provider Active Team Status: Inactive Member Role Status Dates Deysi Castro DO Primary Care Provider Active Dr. Librado Benjamin MD Attending Provider Active Team Status: Inactive Member Role Status Dates Deysi Castro DO Primary Care Provider Active Dr. Gilberto Rasmussen MD Attending Provider Active Team Status: Active Member Role Status Dates Deysi Castro DO Primary Care Provider Active Dr. Jose Ramon Terry , Attending Provider, Referring Provider Active Team Status: Inactive Member Role Status Dates Deysi Castro DO Primary Care Provider Active Dr. 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 Max Lara , DO Emergency Provider Active Dr. Kenney Vizcarra MD Admit Provider, Attending Provider Active Team Status: Active Member Role Status Dates Deysi Castro DO Primary Care Provider Active Dr. Max Lara , DO Emergency Provider Active Dr. Kenney Vizcarra MD Admit Provi yecenia, Attending Provider, Other Provider Active Team Status: Active Member Role Status Dates Deysi Castro , DO Primary Care Provider Active Dr. Max Lara , DO Emergency Provider Active Dr. Kenney Vizcarra MD Admit Provider, Other Pro vider Active Dr. Neymar Masters , DO Attending Provider, Other Pro vider Active Team Status: Inactive Member Role Status Dates Deysi Castro , DO Primary Care Provider Active Dr. Max Lara , DO Emergency Provider Active Dr. Kenney Vizcarra MD Admit Provider, Other Pro vider Active Dr. Neymar Masters , DO Attending Provider Active Team Status: Inactive Member Role Status Dates Deysi Castro , DO Primary Care Provider Active Dr. Jose Ramon Terry , DO Attending Provider, Referring Provider Active Team Status: Inactive Member Role Status Dates Deysi Castro , DO Primary Care Provider Active Dr. Osiris Arana MD Attending Provider, Emergency Provider Active Team Status: Active Member Role Status Dates Deysi Castro , DO Primary Care Provider Active Dr. Gerard Pereyra MD Attending Provider Active Team Status: Active Member Role Status Dates Deysi Castro , Primary Care Provider Active Dr. Gerard Pereyra MD Attending Provider, Referrin g Provider Active Team Status: Inactive Member Role Status Dates Deysi Castro DO Primary Care Provider Active Dr. Gerard Pereyra MD Attending Provider Active Team Status: Inactive Member Role Status Dates Deysi Castro DO Primary Care Provider Active Dr. 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 Specialty Start Date End Date Autumn Almanzar [address] [facility] [address] [place] [address] PCP - General Family Medicine 04/12/22 Gerard Pereyra V [address] [place] [address] Internal Medicine 02/09/23 Team Status: Inactive Member Role Status Dates Deysi M Matthew , DO Primary Care Provider Active Meir Zepeda MD Attending Provider, Referring Provide r Active Team Status: Inactive Member Role Status Dates Deysi Baeza Matthew , DO Primary Care Provider, Referring Provider Active Autumn Caldwell [employer]OC[employer], ASSOC[employer]ATE [employer]-C Attending Provider Active Team Status: Active Member Role Status Dates Deysi Castro , Primary Care Provider Active Cristian Guevara LPN Attending Provider Active Team Status: Inactive Member Role Status Dates Deysi Castro , Primary Care Provider Active Autumn Caldwell [employer], [employer]-C Attending Provider, Referring Pro vider Active Truck [employer]or Relationship Specialty Start Date End Date Doreen Baig (Pss) PCP - General 03/13/23 Gerard Pereyra [address] [facility] [address] Internal Medicine 02/09/23 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 Jose Ramon Mckenzie MD Attending Provider Active Team Status: Inactive Member Role Status Dates Deysi Castro DO Primary Care Provider, Referring Provider Active Dr. Gerard Pereyra MD Attending Provider Active Team Status: Inactive Member Role Status Dates Deysimindi Castro , Primary Care Provider Active Kathleen De Leon NP-C Attending Provider Active Team Status: Active Member Role Status Dates Deysi Castro DO Primary Care Provider Active Dr. Jose Ramon Mckenzie MD Attending Provider, Referring Pro vider Active Team Status: Inactive Member Role Status Dates Deysi Castro DO Primary Care Provider Active Dr. Mari Veliz DO Attending Provider Active Dr. 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 Jose Ramon Mckenzie MD Attending Provider, Referring Pro vider Active Team Status: Inactive Member Role Status Petey Castro , DO Primary Care Provider Active Dr. Doris Yip MD Attending Provider, Referring Provider Active Team Status: Inactive Member Role Status Petey Castro , DO Primary Care Provider, Attending Provider Active Team Status: Inactive Member Role Status Petey Castro DO Primary Care Provider, Referring Provider Active Bernard Dawn PA, PA Attending Provider Active Team Status: Inactive Member Role Status Petey Castro DO Primary Care Provider, Referring Provider Active Dr. Juve Johnson MD Attending Provider Active Team Status: Active Member Role Status Petey Castro DO Primary Care Provider Active Dr. Juve Johnson MD Attending Provider, Referring Pr ovider Active Team Status: Active Member Role Status Petey Castro DO Primary Care Provider Active Dr. Doris Yip MD Attending Provider, Referring Provider Active Dr. Rajani Wharton MD Other Provider Active Team Status: Inactive Member Role Status Petey Castro DO Primary Care Provider Active Ami Barbour NP-C Attending Provider, Referring Pr ovider Active Team Status: Inactive Member Role Status Petey Castro DO Primary Care Provider Active Dr. Juve Johnson MD Attending Provider, Referring Pr ovider Active Team Status: Inactive Member Role Status Petey Castro DO Primary Care Provider Active Dr. Doris Yip MD Attending Provider, Referring Provider Active Dr. Rajani Wharton MD Other Provider Active Team Status: Active Member Role Status Petey Zepeda MD Primary Care Provider Active Team Status: Inactive Member Role Status Petey Zepeda MD Primary Care Provider Active St art: July 07, 2024 End: July 07, 2024 Josefa Rocha [employer]ES, ASSOC[employer]ATE [employer]-C Attending Provider Active S tart: July 07, 2024 End: July 07, 2024 Josefa Rocha [employer], ASSOC[employer]ATE [employer]-C Referring Provider Active S tart: July 07, 2024 End: July 07, 2024 Team Status: Inactive Member Role Status Petey Zepeda MD Primary Care Provider Active St art: July 09, 2024 End: July 09, 2024 Dr. Doris Yip MD Attending Provider Active Start: July 09, 2024 End: July 09, 2024 Dr. Doris Yip MD Referring Provider Active Start: July 09, 2024 End: July 09, 2024 Team Status: Inactive Member Role Status Dates Dr. Gilberot Rasmussen MD Attending Provider Active Start: July 31, 2024 End: July 31, 2024 Dr. Gilberto Rasmussen MD Referring Provider Active Start: July 31, 2024 End: July 31, 2024 Meir Zepeda MD Primary Care Provider Active St art: July 31, 2024 End: July 31, 2024 Team Status: Inactive Member Role Status Petey Zepeda MD Primary Care Provider Active St art: August 01, 2024 End: August 01, 2024 Meir Zepeda MD Attending Provider Active Start : August 01, 2024 End: August 01, 2024 Meir Zepeda MD Referring Provider Active Start : August 01, 2024 End: August 01, 2024 Team Status: Inactive Member Role Status Petey Zepeda MD Primary Care Provider Active St art: August 04, 2024 End: August 04, 2024 Josefa Rocha [employer]ES, ASSOCIATE [employer] SALES-C Attending Provider Active S tart: August 04, 2024 End: August 04, 2024 Josefa Rocha ASSOC[employer] SALES, ASSOC[employer]ATE [employer] SALES-C Referring Provider Active S tart: August 04, 2024 End: August 04, 2024 Team Status: Inactive Member Role Status Petey Zepeda MD Primary Care Provider Active St art: August 28, 2024 End: August 28, 2024 Dr. Doris Yip MD Attending Provider Active Start: August 28, 2024 End: August 28, 2024 Dr. Doris Yip MD Referring Provider Active Start: August 28, 2024 End: August 28, 2024 Team Status: Inactive Member Role Status Petey Zepeda MD Primary Care Provider Active St art: September 02, 2024 End: September 02, 2024 Dr. Gilberto Rasmussen MD Attending Provider Active Start: September 02, 2024 End: September 02, 2024 Dr. Gilberto Rasmussen MD Referring Provider Active Start: September 02, 2024 End: September 02, 2024 Team Status: Active Member Role Status Petey Castro DO Primary Care Provider Active Start: September 29, 2024 Dr. Jose Ramon Mckenzie MD Attending Provider Active S tart: September 29, 2024 Dr. Jose Ramon Mckenzie MD Referring Provider Active S tart: September 29, 2024 Team Status: Inactive Member Role Status Petey Zepeda MD Primary Care Provider Active St art: September 29, 2024 End: September 29, 2024 Dr. Jose Ramon Mckenzie MD Attending Provider Active S tart: September 29, 2024 End: September 29, 2024 Dr. Jose Ramon Mckenzie MD Referring Provider Active S tart: September 29, 2024 End: September 29, 2024 Team Status: Inactive Member Role Status Petey Zepeda MD Primary Care Provider Active St art: October 02, 2024 End: October 02, 2024 Meir Zepeda MD Referring Provider Active Start : October 02, 2024 End: October 02, 2024 Dr. Gilberto Rasmussen MD Attending Provider Active Start: October 02, 2024 End: October 02, 2024 Team Status: Inactive Member Role Status Petey Zepeda MD Primary Care Provider Active St art: October 06, 2024 End: October 06, 2024 Meir Zepeda MD Referring Provider Active Start : October 06, 2024 End: October 06, 2024 Dr. Jose Ramon Mckenzie MD Attending Provider Active S tart: October 06, 2024 End: October 06, 2024 Team Status: Inactive Member Role Status Petey Zepeda MD Primary Care Provider Active St art: October 23, 2024 End: October 23, 2024 Dr. Doris Yip MD Attending Provider Active Start: October 23, 2024 End: October 23, 2024 Dr. Doris Yip MD Referring Provider Active Start: October 23, 2024 End: October 23, 2024 Team Status: Inactive Member Role Status Petey Zepeda MD Primary Care Provider Active St art: October 02, 2024 End: October 02, 2024 Dr. Gilberto Rasmussen MD Attending Provider Active Start: October 02, 2024 End: October 02, 2024 Dr. Gilberto Rasmussen MD Referring Provider Active Start: October 02, 2024 End: October 02, 2024 Team Status: Inactive Member Role Status Petey Zepeda MD Primary Care Provider Active St art: November 06, 2024 End: November 06, 2024 Meir Zepeda MD Referring Provider Active Start : November 06, 2024 End: November 06, 2024 Dr. Gilberto Rasmussen MD Attending Provider Active Start: November 06, 2024 End: November 06, 2024 Team Status: Inactive Member Role Status Petey Zepeda MD Primary Care Provider Active St art: November 07, 2024 End: November 07, 2024 Meir Zepeda MD Referring Provider Active Start : November 07, 2024 End: November 07, 2024 Dr. Juve Johnson MD Attending Provider Active Start: November 07, 2024 End: November 07, 2024 Team Status: Inactive Member Role Status Petey Zepeda MD Primary Care Provider Active St art: November 07, 2024 End: November 07, 2024 Dr. Librado Benjamin MD Attending Provider Active S tart: November 07, 2024 End: November 07, 2024 Team Status: Inactive Member Role Status Petey Zepeda MD Primary Care Provider Active St art: 2024 End: 2024 ASSOCIATE BIOLOGICAL SALESDiamond Diaz Attending Provider Active Star t: 2024 End: 2024 NP. Candida Diaz Referring Provider Active Star t: 2024 End: 2024 Team Status: Inactive Member Role Status Petey Zepeda MD Primary Care Provider Active St art: November 06, 2024 End: November 06, 2024 Dr. Gilberto Rasmussen MD Attending Provider Active Start: November 06, 2024 End: November 06, 2024 Dr. Gilberto Rasmussen MD Referring Provider Active Start: November 06, 2024 End: November 06, 2024 Team Status: Inactive Member Role Status Petey Zepeda MD Primary Care Provider Active St art: November 21, 2024 End: November 21, 2024 Meir Zepeda MD Referring Provider Active Start : November 21, 2024 End: November 21, 2024 Dr. Jose Ramon Terry DO Attending Provider Active Start: November 21, 2024 End: November 21, 2024 Team Status: Inactive Member Role Status Petey Zepeda MD Primary Care Provider Active St art: November 21, 2024 End: November 21, 2024 Dr. Librado Benjamin MD Attending Provider Active S tart: November 21, 2024 End: November 21, 2024 Team Status: Inactive Member Role Status Petey Zepeda MD Primary Care Provider Active St art: December 08, 2024 End: December 08, 2024 Meir Zepeda MD Referring Provider Active Start : December 08, 2024 End: December 08, 2024 Dr. 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 Start Date End Date Meir Zepeda MD [address] [place], [place] [id number] PCP - General Internal Medicine 12/27/24 Gerard Pereyra V [address] [place] [place] [phone] Internal Medicine 02/09/23 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 This clinical summary was aggregated from multiple sources. Caution should be exercised in using it in the provision of clinical care. This summary normalizes information from multiple sources, and as a consequence, information in this document may materially change the coding, format and clinical context of patient data. In addition, data may be omitted in some cases. CLINICAL DECISIONS SHOULD BE BASED ON THE PRIMARY CLINICAL RECORDS. [facility]. provides no warranty or guarantee of the accuracy or completeness of information in this document.
[2025-01-08 09:31] LABS: Absolute Lymphocyte Count 2.56 X10^3/uL (0.83-4.51); Basophil# 0.06 X10^3/uL; Basophil% 0.7 % (0-1); Eosinophil# 0.13 X10^3/uL; Eosinophils% 1.6 % (0-5); Lymphocyte # 2.56 X10^3/ul (0.83-4.51); Lymphocyte % 30.9 % (19-41); Monocyte# 0.46 X10^3/uL; Monocyte% 5.6 % (0-10); NRBC Flagged by Analyzer 0 % (0-5); Neutrophil # 5.01 X10^3/uL (2.7-7.7); Neutrophil % 60.5 % (47-70)
== END | disposition home or self-care (01) ==
PROVIDERS: PCP Family Medicine; Referring Provider Internal Medicine Rheumatology; Visit Provider Internal Medicine Rheumatology
DX: M06.4 Inflammatory polyarthropathy (principal); R76.8 Other specified abnormal immunological findings in serum; M79.7 Fibromyalgia; R10.9 Unspecified abdominal pain; Z79.899 Other long term (current) drug therapy
CPT/HCPCS: 36415; 74018; 80053; 85025; 85027

== ENCOUNTER 2025-01-12 12:33 | Emergency (ER) | payer MEDICARE, OTHER, SELFPAY ==
[2025-01-12 12:34] VITALS: BP 165/77; PULSE 89; RESP 18; TEMP 36.1; O2SAT 97; BMI 39.2
[2025-01-12 13:45] LABS: Absolute Lymphocyte Count 2.56 X10^3/uL (0.83-4.51); Absolute Neutrophil Count 5.5 X10^3/uL (2.0-7.7); Basophil# 0.06 X10^3/uL; Basophil% 0.7 % (0-1); Eosinophils% 1.1 % (0-5); Hematocrit 37.4 % (37-47); Hemoglobin 12.3 g/dL (12.0-15.0); Lymphocyte # 2.56 X10^3/ul (0.83-4.51); Mean Corp Hgb Conc 32.9 g/dL (32-36); Mean Corpuscular Hgb 30.9 pg (27.0-32.0); Mean Platelet Vol. 9.9 fl (6.2-12.0); Monocyte# 0.57 X10^3/uL; Monocyte% 6.5 % (0-10); NRBC Flagged by Analyzer 0 % (0-5); Neutrophil # 5.46 X10^3/uL (2.7-7.7); Neutrophil % 61.9 % (47-70); Platelet Count 311 K/mm3 (150-450); RBC Distribution Width CV 14.4 % (11.6-14.6); RBC Distribution Width SD 49.1 fl (35.1-43.9); Red Blood Count 3.98 M/mm3 (4.2-5.4); White Blood Count 8.8 K/mm3 (4.4-11.0)
[2025-01-12 13:51] LABS: Bacteria 0 SEEN /hpf (None Seen); Mucous, Urine 0 SEEN /hpf (<or=2+); Red Blood Cells-Urine 0 SEEN /hpf (0-5); White Blood Cells 0 SEEN /hpf (0-5)
[2025-01-12 14:00] VITALS: BP 146/62; PULSE 82; RESP 16; O2SAT 98
[2025-01-12 14:05] LABS: Color, Urine Yellow (Yellow); Glucose, Dipstick Normal (Normal); Ketone-Dipstick Negative (Negative); Leukocyte Esterase-Dipstick Negative /ul (Negative); Nitrite-Dipstick Negative (Negative); Occult Blood-Urine Negative /ul (Negative); Protein-Dipstick 15 mg/dl (Negative); Specific Gravity, Urine 1.015 (1.002-1.030); Urine Bilirubin Dipstick Negative (Negative); Urine Clarity Sl. Cloudy (Clear); Urine Urobilinogen Normal (Normal)
[2025-01-12 14:13] LABS: Squamous Epithelial Cells - UA 0-5 SEEN /hpf (5-10)
[2025-01-12 14:33] LABS: ALB/GLOB Ratio 1.2 RATIO (0.9-2.4); AST(SGOT) 30 U/L (<=31); Alanine Aminotransfer ALT/SGPT 20 U/L (<=34); Alkaline Phosphatase 61 U/L (35-104); Anion Gap 12 (5-15); BUN 17 mg/dL (4-19); BUN/Creat Ratio 21.4 RATIO (10-20); Calcium,Total 9.7 mg/dL (7.6-11.0); Carbon Dioxide 25.5 mmol/L (21.0-32.0); Chloride 104 mmol/L (98-108); Creatinine, Serum 0.81 mg/dL (0.70-1.20); EST Glomerular Filtration Rate 79 (>60); Estimated Creatinine Clearance 80.84 ml/min (50-250); Globulin 3.2 g/dL (2.2-4.2); Glucose 118 mg/dL (70-99); Potassium 4.8 mmol/L (3.3-5.1); Protein, Total 7.3 g/dL (5.9-8.4); Sodium Level 142 mmol/L (133-145); Total Bilirubin 0.26 mg/dL (0.00-1.30)
--- NOTE | 2025-01-12 14:34 | CT_ITS ---
PROCEDURE: ABDOMEN/PELVIS WITHOUT CONT 01/12/2025 REASON FOR EXAM: LEFT FLANK PAIN TECHNIQUE: ABDOMEN/PELVIS WITHOUT CONT Noncontrast technique limits evaluation of the abdominal and pelvic viscera. Coronal and Sagittal reconstruction series were provided. One or more dose reduction techniques were used (e.g., Automated exposure control, adjustment of the mA and/or kV according to patient size, use of iterative reconstruction technique). Dose report: CTDI L volume: 21.3 mGy. DLP: 1131.89 COMPARISON: Prior study dated September 29, 2024. FINDINGS: Lung bases: Stable mild linear scarring at the right lung base. Coronary artery calcification. Liver: Normal size. No obvious mass. Gallbladder: Unremarkable Spleen: Normal size. Pancreas: Normal size. No surrounding inflammation. Adrenals: 1.6 cm adenoma in the right adrenal gland. 2.2 cm low-density lesion in the left adrenal gland. This is suggestive of adenoma. There has been no change. Kidneys: 6 mm nonobstructive calculus in the lower pole calyx of the right kidney. No evidence of ureteral obstruction. Bladder: Unremarkable. Reproductive Organs: Prior hysterectomy. Adnexal regions are unremarkable. Bowel: Evidence of prior gastric bypass surgery. Appendix: The appendix is not identified. There is no inflammatory process identified in the right lower quadrant to suggest appendicitis. Lymph nodes: Vasculature: Mild diffuse atherosclerotic calcifications are noted. A filter is seen within the inferior vena cava. Peritoneum / Retroperitoneum: Unremarkable Bones: Degenerative changes of the spine. CT/Abdomen/Pelvis without Cont IMPRESSION: Bilateral adrenal nodules as described suggestive of adenomas. Nonobstructive calculus in the lower pole calyx of the right kidney. No obstructive uropathy is seen at this time. Reading Location: [id number]
--- NOTE | 2025-01-12 14:35 | EX.ED.DYSGE1 ---
HPI History of Present Illness Chief Complaint: Flank Pain Detail of Chief Complaint: Left flank pain Informant: patient Narrative Narrative: Patient presents with left flank pain for about a week and a half. Pains been relatively continuous. She has history of kidney stones that required lithotripsy. Saw nurse practitioner for her primary care physician and had x-rays of her back and some blood work that apparently were unremarkable. Patient denies back injury. She describes some frequency. She denies hematuria. She denies fever. Currently rates her pain an 8 out of 10. No nausea or vomiting. [facility] Medical History (Updated 01/12/25 @ 15:[address] Juan Manuel Enamorado, DO) Fibromyalgia Rheumatoid arthritis Contact with or exposure to other viral diseases Preop testing Post-menopausal Wears glasses Depression Anemia Pulmonary embolism DVT (deep venous thrombosis) History of ulceration CPAP (continuous positive airway pressure) dependence Sleep apnea Former smoker Shortness of breath on exertion Leg cramps History of edema History of stress test (~04/06/20) Hypoxia Pneumonia Right hip pain History of iron deficiency Fatigue Claustrophobia Mild cognitive impairment Peripheral vestibulopathy Encounter for screening for COVID-19 Cerebrovascular small vessel disease Cerebral convexity meningioma Neuropathy History of pneumonia History of kidney stones High cholesterol Glaucoma History of UTI Cervical radiculitis History of DVT (deep vein thrombosis) Diabetes Anxiety and depression HTN (hypertension) Gastric ulcer GERD (gastroesophageal reflux disease) Renal calculus, bilateral Home Medications ?Medication ?Instructions ?Recorded ?Last Taken ?Type ferrous sulfate 325 mg (65 mg 325 mg PO BID SUPPLEMENT 02/11/14 01/22/23 History iron) tablet multivitamin with folic acid 400 1 tab PO DAILY SUPPLEMENT 02/11/14 01/22/23 History mcg tablet trazodone 50 mg tablet 50 mg PO QHS SLEEP 02/11/14 01/22/23 History Held on 04/27/23. Instructions: Ordered biotin 10,000 mcg capsule 10,000 mcg PO DAILY HAIR LOSS 05/30/21 01/22/23 History buspirone 5 mg tablet 5 mg PO TID PRN anxiety 05/30/21 01/22/23 History calcium 600 mg (as 1 cap PO BID 05/30/21 01/22/23 History carbonate)-vitamin D3 12.5 mcg (500 unit) capsule (Calcium with Vit D3) tramadol 50 mg tablet 50 mg PO Q6H PRN Pain Score 6-10 01/25/23 Unknown Rx Held on 04/27/23. #25 tabs Instructions: MD Ordered duloxetine 60 mg capsule,delayed 60 mg PO DAILY 01/18/24 Unknown History release (Cymbalta) hydroxychloroquine 200 mg tablet 200 mg PO BID 01/18/24 Unknown History loratadine 10 mg tablet 10 mg PO QDAY PRN sinus 08/01/24 Unknown Rx symptoms/ear pressure #90 tabs meclizine 25 mg tablet 25 mg PO BID PRN dizziness #180 08/01/24 Unknown Rx tabs ropinirole 2 mg tablet 2 mg PO .COMPLEX #180 tabs 08/21/24 Unknown Rx tizanidine 4 mg tablet 8 mg (2 x 4 mg) PO QHS muscle 08/21/24 Unknown Rx spasticity/leg restlessness #180 tabs gabapentin 300 mg capsule 300 mg PO TID 10/06/24 Unknown History lisinopril 20 1 tab PO QDAY 10/06/24 Unknown History mg-hydrochlorothiazide 12.5 mg tablet metformin 1,000 mg tablet 1,000 mg PO BID 10/06/24 Unknown History warfarin 5 mg tablet (Jantoven) 10 mg PO DAILY 10/06/24 Unknown History cyclobenzaprine 10 mg tablet 10 mg PO TID PRN Muscle Spasm #20 01/12/25 Unknown Rx TABLETS oxycodone-acetaminophen 5 mg-325 1 tab PO Q8H PRN pain 3 days #14 01/12/25 Unknown Rx mg tablet (Percocet) tabs Allergy/AdvReac Type Severity Reaction Status Date / Time amoxicillin Allergy Mild rash Verified 01/12/25 12:36 atorvastatin AdvReac Mild myalgiias Verified 01/12/25 12:36 levofloxacin (From Levaquin) AdvReac Unknown Nausea Verified 01/12/25 12:36 Family History Mother Heart disease Hypertension Father Heart disease CVA (cerebral vascular accident) Brother Cancer Surgical History Status post biopsy of thyroid gland (~08/2019) History of colonoscopy (~2014) History of dilation and curettage History of carpal tunnel release of both wrists Status post panniculectomy History of [place]-en-Y gastric bypass History of umbilical hernia repair Social History household members: spouse housing: house Smoking Status: Former smoker Tobacco: How many years used: 40 Electronic Cigarette Use: not used how long ago did patient quit smoking: about a year and half ago second hand exposure: No alcohol intake: never substance use type: does not use what type of physical activity do you participate in: none do you feel safe at home: Yes ROS ROS ED Review of Systems ROS Unobtainable: other Constitutional Constitutional ED: Reports lethargy; Denies chills, fever(s), sweats or weight loss Eyes Eyes: Denies blurry vision, change in vision or diplopia ENT ENT ED: Denies rhinorrhea or sore throat Cardiovascular Cardiovascular: Denies chest pain, orthopnea or racing heartbeat Respiratory/Chest Respiratory/Chest: Denies cough, dyspnea, dyspnea on exertion, orthopnea or sputum Gastrointestinal Gastrointestinal: Denies abdominal pain, diarrhea, nausea or vomiting Genitourinary Genitourinary ED: Denies dysuria, hematuria or urinary frequency Musculoskeletal Musculoskeletal: Reports back pain; Denies arthralgias, myalgias or neck pain Integumentary Denies abscess, Abrasions or rash Neurologic Neurologic: Denies headache(s) or weakness Psychiatric Psychiatric: Denies anxiety, depression or suicidal thoughts Endocrine Endocrinology: Denies polydipsia, polyphagia or polyuria Hematologic/Lymphatic Hematologic/Lymphatic: Denies easy bleeding, easy bruising or lymphadenopathy Allergic/Immunologic Allergic/Immunologic ED: Denies mouth swelling, tongue swelling or urticaria EXAM Physical Exam Const Vital Signs: 01/12/25 12:34 01/12/25 14:00 01/12/25 15:00 Temperature 96.9 F L 99.4 F H Temperature Source Oral Oral Pulse Rate 89 82 77 Respiratory Rate 18 16 12 Blood Pressure 165/77 H 146/62 H 160/81 H Blood Pressure Mean 106 90 107 Pulse Ox 97 98 97 Oxygen Delivery Method Room Air Room Air Room Air Positive well nourished and well developed General Appearance ED: well developed and NAD HEENT Reports TM's clear and moist mucous membranes normocephalic and atraumatic; Negative for trauma or tenderness Tympanic Membrane ED: Yes TM's clear Eyes PERRL and EOMs intact bilaterally General Eye ED: Negative for pale conjunctiva or scleral icterus Neck no lymphadenopathy, supple and no JVD General: Negative for tenderness Chest Wall inspection of chest normal and palpation of chest normal Chest: Negative for tenderness Resp normal respiratory effort and clear to auscultation bilaterally Effort and Inspection: Negative for respiratory distress or pain with movement Auscultation: Negative for rhonchi, wheezes or diminished lung sounds Cardio regular rate, regular rhythm, S1 normal heart sound, S2 normal heart sound and no murmurs Peripheral Pulses: pulses 2+ throughout GI normal to inspection, nondistended, normoactive bowel sounds, soft to palpation, non-distended and no masses GI Narrative: Mild left lower quadrant tenderness on exam. There is no rebound, rigidity, peritoneal signs Back/Spine no thoracic nor lumbar tenderness Back/Spine Narrative: CVA tenderness noted on the left. Extremity normal to inspection General Extremety ED: Negative for edema General Extremity: Negative for edema Neuro oriented x3, CN's II-XII intact bilaterally, no sensory deficits noted and gait normal Sensorium / Orientation: awake, alert, oriented to person, oriented to place and oriented to time Motor Exam: strength 5/5 throughout and strength abnormal Psych mental status grossly normal Skin no rashes or lesions noted and no wounds MDM MDM MDM Narrative Medical decision making narrative: Patient presents with left flank pain without trauma or radiculopathy. History of kidney stones. In the differential would be kidney stone versus UTI versus musculoskeletal back pain or other etiology. IV line established. She was given Toradol at her request 15 mg IV. CBC with differential obtained showed a white of 8.8 with hemoglobin 12.3 and platelet count of 311. Chemistries unremarkable. LFTs were normal. Urinalysis normal without signs of infection. CT scan of the abdomen pelvis showed no evidence of kidney stone or other acute process. This point suspect likely musculoskeletal etiology of her pain. Will write a prescription for Percocet as well as Flexeril. Advised to follow-up with her primary care physician within next 3 to 5 days. Patient apparently scheduled to have a left hip replacement and apparently her physicians wanted do an MRI of her back before that. Lab Data Attestation: I reviewed the patient's lab results. Labs: Laboratory Results - last 24 hr 01/12/25 01/12/25 13:35 13:40 WBC 8.8 RBC 3.98 L Hgb 12.3 Hct 37.4 MCV 94.0 MCH 30.9 MCHC 32.9 RDW Std Deviation 49.1 H RDW Coeff of Les 14.4 Plt Count 311 MPV 9.9 Immature Gran % (Auto) 0.800 Neut % (Auto) 61.9 Lymph % (Auto) 29.0 [place] % (Auto) 6.5 Eos % (Auto) 1.1 Baso % (Auto) 0.7 Absolute Neuts (auto) 5.5 Absolute Lymphs (auto) 2.56 Nucleated RBC % 0 Sodium 142 Potassium 4.8 Chloride 104 Carbon Dioxide 25.5 Anion Gap 12 BUN 17 Creatinine 0.81 Estim Creat Clear Calc 80.84 Est GFR (MDRD) Non-Af 79 BUN/Creatinine Ratio 21.4 H Glucose 118 H Calcium 9.7 Total Bilirubin 0.26 AST 30 ALT 20 Alkaline Phosphatase 61 Total Protein 7.3 Albumin 4.0 Globulin 3.2 Albumin/Globulin Ratio 1.2 Urine Color Yellow Urine Clarity Sl. Cloudy Urine pH 6.0 Ur Specific Wilmer 1.015 Urine Protein 15 H Urine Glucose (UA) Normal Urine Ketones Negative Urine Occult Blood Negative Urine Nitrite Negative Urine Bilirubin Negative Urine Urobilinogen Normal Ur Leukocyte Esterase Negative Urine RBC 0 SEEN Urine WBC 0 SEEN Ur Squamous Epith Cells 0-5 SEEN Urine Bacteria 0 SEEN Urine Mucus 0 SEEN Radiography Diagnostic Testing: Clinical Impression(s) from Imaging Studies Abdomen/Pelvis CT 01/12/25 14:34 IMPRESSION: Bilateral adrenal nodules as described suggestive of adenomas. Nonobstructive calculus in the lower pole calyx of the right kidney. No obstructive uropathy is seen at this time. Reading Location: [id number] Discharge Plan Triage Chief Complaint: Flank Pain ED Provider: Juan Manuel Enamorado Dx/Rx/DC Orders Clinical Impression: Back pain Instructions: ED Back Pain (Acute or Chronic) Prescriptions: New cyclobenzaprine 10 mg tablet 10 mg PO TID PRN (Reason: Muscle Spasm) Qty: 20 0RF oxycodone-acetaminophen [Percocet] 5-325 mg tablet 1 tab PO Q8H PRN (Reason: pain) 3 Days Qty: 14 0RF No Action buspirone 5 mg tablet 5 mg PO TID PRN (Reason: anxiety) calcium carbonate-vitamin D3 [Calcium 600 with Vitamin D3] 600 mg(1,500mg) -500 unit capsule 1 cap PO BID metformin 1,000 mg tablet 1,000 mg PO BID meclizine 25 mg tablet 25 mg PO BID PRN (Reason: dizziness) Qty: 180 1RF loratadine 10 mg tablet 10 mg PO QDAY PRN (Reason: sinus symptoms/ear pressure) Qty: 90 1RF duloxetine [Cymbalta] 60 mg capsule,delayed release(DR/EC) 60 mg PO DAILY hydroxychloroquine 200 mg tablet 200 mg PO BID gabapentin 300 mg capsule 300 mg PO TID lisinopril-hydrochlorothiazide 20-12.5 mg tablet 1 tab PO QDAY trazodone 50 MG tablet 50 mg PO QHS Patient Comments: INSOMINIA ferrous sulfate 325 MG tablet 325 mg PO BID Patient Comments: SUPPLEMENT multivitamin with folic acid 1 TABLET tablet 1 tab PO DAILY Patient Comments: SUPPLEMENT biotin 10,000 mcg capsule 10,000 mcg PO DAILY Patient Comments: SUPPLEMENT tramadol 50 mg Tablet 50 mg PO Q6H PRN (Reason: Pain Score 6-10) Qty: 25 0RF warfarin [Jantoven] 5 mg tablet 10 mg PO DAILY ropinirole 2 mg tablet 2 mg PO .COMPLEX Qty: 180 2RF Rx Instructions: Take 1 tablet orally q5PM and 1 tablet nightly as needed tizanidine 4 mg tablet 8 mg PO QHS Qty: 180 2RF Primary Care Provider: Meir Zepeda Referrals: Meir Zepeda MD [Primary Care Provider] - 3-5 Days Print Language: Bengali Disposition Disposition: Home, Self Care
[2025-01-12] MEDS: Ketorolac 15 MG/ML Vial IV (14:57)
[2025-01-12 15:00] VITALS: BP 160/81; PULSE 77; RESP 12; TEMP 37.4; O2SAT 97
== END 2025-01-12 15:38 | disposition home or self-care (01) ==
PROVIDERS: Emergency Provider Emergency Medicine; PCP Family Medicine; Visit Provider Emergency Medicine
DX: M54.9 Dorsalgia, unspecified (principal); E11.40 Type 2 diabetes mellitus with diabetic neuropathy, unspecified; R10.9 Unspecified abdominal pain; I10 Essential (primary) hypertension; Z87.891 Personal history of nicotine dependence; E78.00 Pure hypercholesterolemia, unspecified; K21.9 Gastro-esophageal reflux disease without esophagitis
CPT/HCPCS: 74176; 80053; 81001; 85025; 96374; 99283; A4216

== ENCOUNTER 2025-01-13 10:30 | Outpatient (RCR) | payer MEDICARE, OTHER, SELFPAY ==
--- NOTE | 2024-12-16 13:08 | HP.PTEVAL ---
Patient's Visit Information Visit Information Visit Information: ART BLUE is a 69 year old F referred to Physical Therapy by Dr. Jose Ramon Terry DO with a diagnosis of R hip OA. Date of Evaluation: 12/11/24 Physical Therapist: Jesse Thrasher DPT Visit Plan Frequency: 2x /Week Duration: 6 Weeks Plan: In aquatic settin) hip and core strengthening. PRogress as tolerated. 2) add in functional strengthening in pool. Subjective Subjective: Pt. is here today with her initial evaluation with R hip OA. Pt. reports having increasing pain for the past few months, both groin and her lateral hip as well. pt. reports a few months back getting an injection in her lateral hip which did help the lateral pain, did not help her groin pain. She was instructed to go to PT to improve her strength and ROM prior to having surgical intervention. Pt. has difficulty sleeping as well. Pt. is hopeful to reduce symptoms in order to get back to all household activities without limitations.. Pain R hip: Pain Intensity (Out of 10): 7 Pain Intensity Range: 2 and 7 Objective Objective: POSTURE: Pt. has a general flexed posture in stance. Increased wt. shift to L side in stance as well. Lacks hip extension. PALPATION: Pt. has marked tenderness at R greater trochanter and gluteral musculature. pt. has hip flexor pain as well. NEURO: pt. has normal sensation in BLEs and normal DTR. Pt. does have peripheral neuropathy. ROM: R hip: flexion 90deg increase NW, IR at 90deg of flex 5deg increase NW, ER 40at 90deg of flexion. Normal HS length. MMT: RLE: knee: ext 34.0#, flexion 28.5#; hip: flexion 7.9#, abd 3# LLE: knee: ext 34.6#, flexion 32.5#; hip: flex 20.0#, abd 15# GAIT: Pt. ambulates with SPC today (but typically uses rollator). Pt. has trunk sway to R side during R stance phase. Pt. TU.1sec with SPC 30sec sit to stand rep test: 6 with use of UEs. STAIRS: Pt. is able to complete with step to pattern loading LLE only with use of BHR. Balance/Special Test Scores Lower Extremity Functional Score: 24 Goals Goal 1:: LTG: Pt to be I with HEP. Goal Time Frame: 4-6 Weeks Goal 2:: LTG: Pt. to be able to ambulate without antalgic pattern Goal Time Frame: 4-6 Weeks Goal 3:: LTG: pt. to have symmetrical BLE strength. Goal Time Frame: 4-6 Weeks Goal 4:: LTG: Pt. to complete 30sec sit to stand rep test with at least 13 reps Goal Time Frame: 4-6 Weeks Goal 5:: LTG: Pt. to complete TUG with time less than 20sec. Goal Time Frame: 4-6 Weeks Rehabilitation Potential Physical Therapy Diagnosis: Pt. has signs and symptoms consistent with R hip OA. Pt. has marked hypomobility, weakness, difficulty with walking. Pt. Rehabilitation Potential: Good Anticipated Interventions Patient/Client Instruction: Educate patient on: Condition, Plan of Care, Risk Factors and Benefits of Fitness Program For the Purpose of:: To facilitate caregiver knowledge, To improve self management, To prevent re-injury and To improve ability to perform tasks related to life management Therapeutic Exercise to Include: Strength training, Endurance training, Balance training, Coordination, Postural training, Flexibilty training, Gait and locomotor training, In an aquatic setting, Passive ROM and Active ROM For the Purpose of:: To decrease pain, To increase ROM, To increase oxygenation perfusion, To improve muscle performance and motor function, To improve ability to perform ADL's and To increase tolerance to activity/condition/position Text: Thank you for the opportunity to evaluate your patient. For Medicare and Medicare HMO plans, please review the plan of care and approve it. It will need to be FAXED BACK to us at [phone] for Medicare purposes. For Medicare only, by signing this I certify the plan of care. Please let me know if there are questions or concerns regarding this plan of care. Physician Signature: Date:
--- NOTE | 2025-01-13 10:58 | HP.PTDCSUM ---
Discharge Summary D/C summary: It has been my pleasure to treat [facility] referred by Dr. Jose Ramon Terry DO, with the diagnosis of R hip OA for a total of 10 visit(s). Discharge Date: 01/13/25 Please see the following information for a summary of their discharge status. Subjective Subjective: Pt. reports overall doing a little bit better, but very painful today. Pt. reports she is having a flare up of her fibro. Pt. reports not as much pain in her hip today. Pt. is to see physician in February about potential hip surgery. Pain R hip: Pain Intensity (Out of 10): 5 L foot: Pain Intensity (Out of 10): 5 whole body: Pain Intensity (Out of 10): 8 Overall Improvement % Improvement: 30 Objective Objective/Function: MMT: LLE: knee: ext 36.5#, flex 30.4#; hip flex 21.9# RLE: knee: ext 43.0#, flex 20.7#; hip: flex 15.9# GAIT: pt. continues to have an antalgic gait pattern. with use of single point cane. Pt. still having issues with pain, but also compounded by her fibro. She is planning on having surgery later this year. She is going to use the pool to continue with her exercises until then. Goals Goal 1:: LTG: Pt to be I with HEP. Goal Progress: Goal Met Goal 2:: LTG: Pt. to be able to ambulate without antalgic pattern Goal Progress: Progressing Goal 3:: LTG: pt. to have symmetrical BLE strength. Goal Progress: Progressing Goal 4:: LTG: Pt. to complete 30sec sit to stand rep test with at least 13 reps Goal Progress: Progressing Goal 5:: LTG: Pt. to complete TUG with time less than 20sec. Goal Progress: Goal Met Plan Plan: Pt. to be DC from PT at this point in time. D/C Information d/c sentence: If there are questions or concerns regarding this patient's physical therapy, please feel free to call me at [phone]. Thank you for the referral of this patient. Sincerely, Jesse Christiansen Sipos, DPT Balance/Gait/Functional tests Balance/Special Test Scores Lower Extremity Functional Score: 29 TUG Test Time Seconds: 15.5 Tug Test: <20 sec.=mostly independent 30 Second Chair Rise Test Seconds: 11 Improvement % Improvement: 30
== END 2025-01-13 19:00 | disposition home or self-care (01) ==
LOC: PT 10:30
PROVIDERS: PCP Family Medicine; Referring Provider Orthopaedic Surgery; Visit Provider Orthopaedic Surgery
DX: M16.11 Unilateral primary osteoarthritis, right hip (principal)
CPT/HCPCS: 97113; 97161; 97530

== ENCOUNTER → 2025-02-19 | Outpatient (CLI) | payer MEDICARE, OTHER, SELFPAY ==
[2025-02-19 16:20] LABS: Anion Gap 16 (5-15); BUN 27 mg/dL (4-19); BUN/Creat Ratio 27.8 RATIO (10-20); Calcium,Total 9.8 mg/dL (7.6-11.0); Carbon Dioxide 26.0 mmol/L (21.0-32.0); Chloride 96 mmol/L (98-108); Cholesterol 209 mg/dL (<=200); Glucose 123 mg/dL (70-99); Low Density Lipoprotein Calc. 123 mg/dL; Potassium 4.4 mmol/L (3.3-5.1); Triglycerides 167 mg/dL; Very Low Density Lipoprotein 33 mg/dL (5-40); Vitamin D,25 Hydroxy 34.7 ng/mL (30-100); cholesterol:hdl ratio screen 3.98
== END | disposition home or self-care (01) ==
LOC: MFPLAB 11:30
PROVIDERS: PCP Family Medicine; Referring Provider Family Medicine; Visit Provider Family Medicine
DX: E11.59 Type 2 diabetes mellitus with other circulatory complications (principal); Z98.84 Bariatric surgery status; Z86.718 Personal history of other venous thrombosis and embolism
CPT/HCPCS: 36415; 80048; 80061; 82306

== ENCOUNTER → 2025-03-09 | Outpatient (CLI) | payer MEDICARE, OTHER, SELFPAY ==
--- NOTE | 2025-03-09 14:47 | VDLE_ITS ---
Reason For Study Reason For Study: Pain RLE RIGHT LEFT GSV is normal. CFV is compressible, spontaneous, phasic, competent, Chronic SVT/wall thickening noted Rt SFJ. and demonstrates normal augmentation. CFV is compressible, spontaneous, phasic, competent and demonstrates normal augmentation. FV is compressible, spontaneous, phasic, competent and demonstrates normal augmentation. POP V is compressible, spontaneous, phasic, competent and demonstrates normal augmentation. T/P Trunk is compressible. PTV is compressible. RT PerV is compressible. Procedure This is a venous duplex using B-mode, color flow and spectral Doppler. Exam performed in department. A preliminary report was called and/or faxed to Dr. Reis. VL/Venous Duplex US, Unilateral Interpretation Summary Deep veins of the right lower extremity are patent and compressible segmentally . There is no evidence of right lower extremity deep vein thrombosis. Valvular competence appears intact within the p roximal deep venous system on the right . The right great saphenous vein appears patent and compressible segmentally. Chr onic vein wall thickening is noted in the proximal right great saphenous vein at the sapheno-femoral junction. The left c ommon femoral vein is patent and compressible . Ordering Physician: Jose Ramon Terry Referring Physician: Meir Zepeda Performed By: Griselda Caldwell RDCS, RVT
== END | disposition home or self-care (01) ==
LOC: CVS 14:47
PROVIDERS: PCP Family Medicine; Referring Provider Orthopaedic Surgery; Visit Provider Orthopaedic Surgery
DX: M79.604 Pain in right leg (principal); Z86.718 Personal history of other venous thrombosis and embolism; Z86.711 Personal history of pulmonary embolism
CPT/HCPCS: 93971

== ENCOUNTER → 2025-03-13 | Outpatient (CLI) | payer MEDICARE, OTHER, SELFPAY ==
--- NOTE | 2025-03-13 14:15 | CT_ITS ---
PROCEDURE: EXTREMITY LOWER WITHOUT CONTRA 03/13/2025 REASON FOR EXAM: TEMPLATING FOR RIGHT DUNCAN TECHNIQUE: LEXA right hip noncontrasted CT, templating for right DUNCAN.. Coronal and Sagittal reconstruction series were provided. One or more dose reduction techniques were used (e.g., Automated exposure control, adjustment of the mA and/or kV according to patient size, use of iterative reconstruction technique). RADIATION DOSE SUMMARY: CTDlvol: 27.88 mGy DLP: 790.99 mGycm COMPARISON: Right hip and pelvis series of 11/21/2024. FINDINGS: Degenerative changes are prominently seen of the visualized portions of the lower lumbar spine. Mild sacroiliac joint degenerative changes are noted. Prominent calcification of the visualized distal aorta and iliac arteries, without evidence of aneurysmal dilation in visualized areas. Limited imaging of the left hip demonstrates mild degenerative changes. Much more advanced right hip degenerative changes are seen, with severe superior joint narrowing and osseous reactive changes. Limited imaging of the right knee shows no joint effusion. At least mild degenerative changes are present. CT/Extremity Lower without Contra IMPRESSION: Successful LEXA right hip CT, as noted. Reading Location: [place] [id number]
== END | disposition home or self-care (01) ==
LOC: CT 14:09
PROVIDERS: PCP Family Medicine; Referring Provider Orthopaedic Surgery; Visit Provider Orthopaedic Surgery
DX: M16.11 Unilateral primary osteoarthritis, right hip (principal)
CPT/HCPCS: 73700

== ENCOUNTER 2025-03-24 10:28 | Inpatient (IN) | payer MEDICARE, OTHER, SELFPAY ==
--- NOTE | 2025-03-13 16:05 | PAT.ANESEVAL ---
Pre-Assessment Diagnosis/Proposed Procedure Planned Operative Procedure(s): RIGHT TOTAL H IP ARTHROPLASTY Anesthesia History Anesthesia History - director agricultural services: Anesthesia History - director agricultural services Hx Hospitalization No 03/10/25 15:14 Any Problems With Anesthesia No 03/10/25 15:14 Cholinesterase deficiency No 03/10/25 15:14 You/Your Family Experience No 03/10/25 15:14 fever (hyperthermia) with Relationship Recent Exposure to Contagious No 04/05/21 10:55 Disease Does patient have nerve No 03/10/25 15:14 stimulator Patient instructed to have device shut off --Does patient have Pacemaker or ICD? When Was Last Pacemaker Check QUESTION #4 FULL TEXT: You/Your Family Experience fever (hyperthermia) with Anesthesia Last Oral Intake Last Oral intake: Last Oral Intake NPO since Meds taken in AM with sips of water? Meds patient instructed to take am of surgery PONV PONV - director agricultural services: PONV - director agricultural services Female Yes 03/10/25 15:14 HX of Motion Sickness Yes 03/10/25 15:14 HX of N/V After Surgery No 03/10/25 15:14 Non-Smoker Yes 03/10/25 15:14 Duration of Surgery greater Yes 03/10/25 15:14 than 60 minutes Number of Risk Factors 4 03/10/25 15:14 PONV Score Severe Risk 03/10/25 15:14 Height & Weight Height & Weight: Anesthesia: Height & Weight Height 5 ft 5 in 02/25/25 09:53 Respiratory Assessment Respiratory Assessment - director agricultural services: Respiratory Tract Infection Hx - director agricultural services Hx Respiratory Tract Infection No 03/10/25 15:14 STOP Sleep Apnea STOP Sleep Apnea - director agricultural services: STOP Sleep Apnea - director agricultural services Hx Hypertension Yes: CONTROLLED WITH MED 03/10/25 15:14 Hx Sleep Apnea Yes 03/10/25 15:14 CPAP Yes 03/10/25 15:14 BIPAP No 03/10/25 15:14 Do you snore loudly (louder than talking or can be heard Do you often feel tired/ fatigued/ sleepy during daytime? Has anyone observed you stop breathing during sleep? STOP Results Positive 03/10/25 15:14 QUESTION #5 FULL TEXT : Do you snore loudly (louder than talking or can be heard through closed doors)? 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 Specify any problems Hx of Preganancy in last 3 No 03/10/25 15:14 Months Nurse Filling Out Transfusion DSCHRIBER 03/10/25 15:14 & Questions: Date: 03/10/25 03/10/25 15:14 Time: 15:18 03/10/25 15:14 Patient unable to answer at this time (ie. confused, unrespo /Reproduction History /Reproductive History - director agricultural services: /Reproductive Hx- director agricultural services Hx Now No 03/10/25 15:14 Gestational Age (in weeks): EDC: Hx Hx Para Hx Section SAB No 03/10/25 15:14 PFSH Medical History (Updated 03/10/25 @ 15:33 by Gloria Coleman) Diabetes Ambulates with cane Fatty liver Restless legs Syncope Dietary restriction Chronic constipation Gastric reflux History of pain when walking History of GI bleed History of pneumonia Fibromyalgia Rheumatoid arthritis Post-menopausal Wears glasses Depression Anemia Pulmonary embolism DVT (deep venous thrombosis) CPAP (continuous positive airway pressure) dependence Former smoker Shortness of breath on exertion Leg cramps History of edema History of stress test (~04/06/20) Hypoxia Right hip pain History of iron deficiency Fatigue Claustrophobia Mild cognitive impairment Peripheral vestibulopathy Encounter for screening for COVID-19 Cerebrovascular small vessel disease Cerebral convexity meningioma Neuropathy High cholesterol Glaucoma Cervical radiculitis HTN (hypertension) Renal calculus, bilateral Home Medications ?Medication ?Instructions ?Recorded ?Last Taken ?Type ferrous sulfate 325 mg (65 mg 325 mg PO BID SUPPLEMENT 02/11/14 01/22/23 History iron) tablet multivitamin with folic acid 400 1 tab PO DAILY SUPPLEMENT 02/11/14 01/22/23 History mcg tablet trazodone 50 mg tablet 100 mg PO QHS SLEEP 02/11/14 01/22/23 History Held on 04/27/23. Instructions: Ordered biotin 10,000 mcg capsule 10,000 mcg PO DAILY HAIR LOSS 05/30/21 01/22/23 History calcium 600 mg (as 1 cap PO BID SUPPLEMENT 05/30/21 01/22/23 History carbonate)-vitamin D3 12.5 mcg (500 unit) capsule (Calcium with Vit D3) tramadol 50 mg tablet 50 mg PO Q6H PRN Pain Score 6-10 01/25/23 Unknown Rx Held on 04/27/23. #25 tabs Instructions: Ordered hydroxychloroquine 200 mg tablet 200 mg PO BID OA 01/18/24 Unknown History loratadine 10 mg tablet 10 mg PO QDAY PRN sinus 08/01/24 Unknown Rx symptoms/ear pressure #90 tabs gabapentin 300 mg capsule 300 mg PO BID PAIN 10/06/24 Unknown History lisinopril 20 1 tab PO QDAY BP 10/06/24 Unknown History mg-hydrochlorothiazide 12.5 mg tablet metformin 1,000 mg tablet 1,000 mg PO BID DIABETES 10/06/24 Unknown History warfarin 5 mg tablet (Jantoven) 10 mg PO SUTUWETHSA BLOOD THINNER 10/06/24 Unknown History duloxetine 30 mg capsule,delayed 30 mg PO QPM DEPRESSION #90 caps 01/29/25 Unknown Rx release duloxetine 60 mg capsule,delayed 60 mg PO QAM DEPRESSION #90 caps 01/29/25 Unknown Rx release (Cymbalta) meclizine 25 mg tablet 25 mg PO BID PRN dizziness #180 01/30/25 Unknown Rx tabs methotrexate sodium 2.5 mg tablet 20 mg PO SA OA 02/25/25 02/21/25 History CPAP - Continuous Positive Airway 03/10/25 Unknown History Pressure([facility] INFORMATIONAL USE ONLY) omeprazole 20 mg capsule,delayed 20 mg PO DAILY GERD 03/10/25 Unknown History release ropinirole 2 mg tablet 2 mg PO 1700 RLS 03/10/25 Unknown History ropinirole 2 mg tablet 2 mg PO QHS RLS 03/10/25 Unknown History tizanidine 4 mg tablet 8 mg PO QHS muscle spasticity/leg 03/10/25 Unknown History restlessness warfarin 4 mg tablet 8 mg PO MOFR BLOOD THINNER 03/10/25 Unknown History Allergy/AdvReac Type Severity Reaction Status Date / Time amoxicillin Allergy Mild rash Verified 03/10/25 15:03 atorvastatin AdvReac Mild myalgiias Verified 03/10/25 15:03 levofloxacin (From Levaquin) AdvReac Unknown Nausea Verified 03/10/25 15:03 Family History Mother Heart disease Hypertension Father Heart disease CVA (cerebral vascular accident) Brother Cancer Surgical History (Updated 03/10/25 @ 15:33 by Gloria Coleman) Hx of superior vena cava filter placement History of cystoscopy Status post biopsy of thyroid gland (~08/2019) History of colonoscopy (~2014) History of dilation and curettage History of carpal tunnel release of both wrists Status post panniculectomy History of [place]-en-Y gastric bypass History of umbilical hernia repair Social History household members: spouse housing: house Smoking Status: Former smoker Tobacco: How many years used: 40 Electronic Cigarette Use: not used how long ago did patient quit smoking: about a year and half ago second hand exposure: No alcohol intake: never substance use type: does not use what type of physical activity do you participate in: none do you feel safe at home: Yes Audit: Pertinent Findings Pertinent Findings EKG Perinent findings: March 12, 2025. Sinus rhythm. Normal EKG. Stress test pertinent findings: April 06, 2020. EF is 78%. Rest and stress nuclear imaging demonstrate uniform tracer uptake and myocardial perfusion appearing within normal limits. Recommendation Anesthesia Recommendation Anesthesia recommendation: OPTIMIZED for anesthesia
[2025-03-16 11:31] LABS: Magnesium 1.9 mg/dL (1.5-2.2)
[2025-03-24] VITALS (18 sets, daily range): BP systolic 117–176; BP diastolic 53–89; PULSE 76–95; RESP 12–19; TEMP 36.2–37.2; O2SAT 94–100; BMI 37.5
--- OUTSIDE RECORDS SUMMARY | 2025-03-24 05:33 | XMS RPT_ITS | CCD ---
Author Organization [facility] Care Team Providers Care Tile And Marble Setter Name Role Phone WSANurse Unavailable Unavailable Dr. [...] Dr. Kenney Vizcarra Other Provider Dr. Neymar Masters Attending Provider Dr. Neymar Masters Other Provider Autumn Almanzar Primary Care Provider Gerard South Unavailable Matthew, DO Deysi M Primary Care Provider Dr. Gilberto Rasmussen Attending Provider Dr. Gilberto Rasmussen Referring Provider Roof CARDIAC TECHNICIAN, CARDIAC TECHNICIAN-C Autumn Tanner Attending Provider Paola, MUFFLER HAND Cristina Attending Provider Unavailable Doreen Baig ([facility]) Primary Care Provider Maryam vailable Matthew, DO Deysi M Primary Care Provider Dr. Gilberto Rasmussen Attending Provider Dr. Gilberto Rasmussen Referring Provider Dr. Jose Ramon Mckenzie Attending Provider Matthew, DO Dyesi M Primary Care Provider Dr. Gilberto Rasmussen Attending Provider Dr. Gilberto Rasmussen Referring Provider Matthew, DO Deysi M Referring Provider Matthew, DO Deysi M Primary Care Provider Dr. Gilberto Rasmussen Attending Provider Dr. Gilberto Rasmussen Referring Provider Matthew, DO Deysi M Referring Provider Roof CARDIAC TECHNICIAN, CARDIAC TECHNICIAN-C Autumn Tanner Attending Provider Paola, MUFFLER HAND Cristina Attending Provider Unavailable Dr. Jose Ramon Mckenzie Attending Provider Matthew, DO Deysi M Primary Care Provider Matthew, DO Deysi M Referring Provider Dr. Gilberto Rasmussen Attending Provider Dr. Gilberto Rasmussen Referring Provider ARIANA Ackerman Attending Provider Matthew, DO Deysi M Primary Care Provider Mathtew, DO Deysi M Referring Provider Matthew, DO Deysi M Primary Care Provider Dr. Gilberto Rasmussen Attending Provider Dr. Gilberto Rasmussen Referring Provider Matthew, DO Deysi M Referring Provider ARIANA Ackerman Attending Provider Dr. Jose Ramon Mckenzie Attending Provider ARIANA Leija Attending Provider Matthew, DO Deysi M Primary Care Provider Dr. Gilberto Rasmussen Attending Provider Dr. Gilberto Rasmussen Referring Provider Dr. Juve Johnson Attending Provider Dr. Librado Benjamin Attending Provider Matthew, DO Deysi M Primary Care Provider Matthew, DO Deysi M Referring Provider Matthew, DO Deysi M Primary Care Provider Meir Bush MD Primary Care Provider Aj CARDIAC TECHNICIAN-C, Josefa Attending Provider Aj CARDIAC TECHNICIAN-C, Josefa Referring Provider Theodora ROONEY, Dr. George Attending Provider Dr. Doris Yip MD Referring Provider Dr. Gilberto Rasmussen MD Attending Provider Dr. Gilberto Rasmussen MD Referring Provider Meir Bush MD Attending Provider Meir Bush MD Referring Provider Matthew DO, Deysi Baeza Primary Care Provider Magaly ROONEY, Dr. Albright Attending Provider Magaly ROONEY, Dr. Albright Referring Provider Rachelle ROONEY, Meir Primary Care Provider Aj CARDIAC TECHNICIAN-C, Josefa Attending Provider Aj CARDIAC TECHNICIAN-C, Josefa Referring Provider Theodora ROONEY, Dr. George Attending Provider Theodora ROONEY, Dr. George Referring Provider Alex ROONEY, Dr. An Attending Provider Cassidy ROONEY, Dr. Pavon Attending Provider MUSA Diaz. Candida Attending Provider MUSA Diaz. Candida Referring Provider Rachelle ROONEY, Meir Primary Care Provider Grady ROONEY, Dr. Macias Attending Provider Grady ROONEY, Dr. Macias Referring Provider Rachelle ROONEY, Meir Referring Provider Harrison RICHTER, Dr. Albright Attending Provider Rachelle ROONEY, Meir Primary Care Provider Rachelle ROONEY, Meir Primary Care Provider Grady ROONEY, Dr. Macias Attending Provider Grady ROONEY, Dr. Macias Referring Provider Theodora ROONEY, Dr. George Attending Provider Theodora ROONEY, Dr. George [facility], Indira Other Provider Dr. Jose Ramon Terry DO Referring Provider Dr. Juan Manuel Enamorado DO Emergency Provider [phone] Harrison RICHTER, Dr. Albright Referring Provider Rachelle MD, Chalon Primary Care Provider Magaly ROONEY, Dr. Albright Attending Provider Kelsea RICHTER, Dr. Zambrano Attending Provider Rachelle ROONEY, Chalon Primary Care Provider Grady ROONEY, Dr. Macias Attending Provider Grady ROONEY, Dr. Macias Referring Provider [phone] Rachelle ROONEY, Chalon Referring Provider [phone] Theodora ROONEY, Dr. George Attending Provider Theodora ROONEY, Dr. George Referring Provider Dio ROONEY, Dr. Gerard Attending Provider Rachelle ROONEY, Chaldaniel Attending Provider Rachelle ROONEY, Chalon Primary Care Provider Rachlele ROONEY, Chalon Referring Provider [phone] Cassidy ROONEY, Dr. Pavon Attending Provider Grady ROONEY, Dr. Macias Attending Provider [phone] Grady ROONEY, Dr. Macias Referring Provider Dio ROONEY, Dr. Gerard Attending Provider Rachelle ROONEY, Chalon Primary Care Provider Rachelle, Chalon Primary Care Unavailable Doris Yip Referring Unavailable Doris Yip Attending Unavailable Rachelle, Chalon Primary Care Unavailable Jose Ramon Mckenzie Attending Unavailable Jose Ramon Mckenzie Referring Unavailable Rachelle, Chalon Primary Care Unavailable Librado Benjamin Attending Unavailable Rachelle, Chalon Primary Care Unavailable Aj CARDIAC TECHNICIAN, Josefa Attending Unavailable Aj CARDIAC TECHNICIAN, Josefa Referring Unavailable Rachelle, Chalon Primary Care Unavailable Harrison, Jose Ramon Referring Unavailable Jose Ramon Terry Attending Unavailable Rachelle, Chalon Attending Unavailable Rachelle, Chalon Referring Unavailable Rachelle, Chalon Primary Care Unavailable Rachelle, Chalon Attending Unavailable Rachelle, Chalon Referring Unavailable Rachelle, Chalon Primary Care Unavailable Rachelle, Chalon Referring Unavailable Rachelle, Chalon Primary Care Unavailable Angela Bailey Attending Unavailable Rachelle, Chalon Primary Care Unavailable [place], Candida Attending Unavailable [place], Candida Referring Unavailable Rachelle, Chalon Referring Unavailable Rachelle, Chalon Attending Unavailable Rachelle, Chalon Primary Care Unavailable Rachelle, Chalon Primary Care Unavailable Vellanki, Doris Attending Unavailable Vellanki, Doris Referring Unavailable McMorrow CARDIAC TECHNICIAN, Indira Consulting Unavailable Rachelle, Chalon Primary Care Unavailable Borruso, Jose Ramon Attending Unavailable Borruso, Jose Ramon Referring Unavailable Rachelle, Chalon Primary Care Unavailable Ungur Remus Attending Unavailable Rachelle, Chalon Primary Care Unavailable Sibilia, Gerard V Attending Unavailable Sibilia, Gerard V Referring Unavailable Rachelle, Chalon Primary Care Unavailable Borruso, Jose Ramon Referring Unavailable Nathalyso, Jose Ramon Attending Unavailable Mgaaly, Jose Ramon Attending Unavailable Jose Ramon Mckenzie Referring Unavailable Deysi Castro Primary Care Unavailable Rachelle, Chalon Primary Care Unavailable Baddour, Gilberto Referring Unavailable Baddour, Gilberto Attending Unavailable Rachelle, Chalon Primary Care Unavailable Baddour, Gilberto Referring Unavailable Baddour, Gilberto Attending Unavailable Rachelle, Chalon Primary Care Unavailable Librado Benjamin Attending Unavailable Rachelle, Chalon Referring Unavailable Rachelle, Chalon Primary Care Unavailable Borruso, Jose Ramon Attending Unavailable Rachelel, Chalon Primary Care Unavailable Borruso, Jose Ramon Referring Unavailable Borruso, Jose Ramon Admitting Unavailable Jaskaranruso, Jose Ramon Attending Unavailable Juarez Muñoz Consulting Unavailable Rachelle, Chalon Primary Care Unavailable Aj CARDIAC TECHNICIAN, Josefa Attending Unavailable Aj CARDIAC TECHNICIAN, Josefa Referring Unavailable Rachelle, Chalon Primary Care Unavailable Vellanki, Doris Referring Unavailable Vellanki, Doris Attending Unavailable Rachelle, Chalon Primary Care Unavailable Baddour, Gilberto Attending Unavailable Baddour, Gilberto Referring Unavailable Rachelle, Chalon Primary Care Unavailable Baddour, Gilberto Referring Unavailable Baddour, Gilberto Attending Unavailable Rachelle, Chalon Primary Care Unavailable Baddour, Gilberto Referring Unavailable Baddour, Gilberto Attending Unavailable Rachelle, Chalon Primary Care Unavailable Baddour, Gilberto Referring Unavailable Baddour, Gilberto Attending Unavailable Rachelle, Chalon Referring Unavailable Rachelle, Chalon Primary Care Unavailable Baddour, Gilberto Attending Unavailable Rachelle, Chalon Referring Unavailable Rachelle, Chalon Primary Care Unavailable Borruso, Jose Ramon Attending Unavailable Rachelle, Chalon Primary Care Unavailable Baddour, Gilberto Referring Unavailable Baddour, Gilberto Attending Unavailable Juve Johnson Attending Unavailable Rachelle, Chalon Referring Unavailable Rachelle, Chalon Primary Care Unavailable Rachelle, Chalon Primary Care Unavailable Baddour, Gilberto Referring Unavailable Baddour, Gilberto Attending Unavailable Rachelle, Chalon Referring Unavailable Rachelle, Chalon Primary Care Unavailable Jose Ramon Mckenzie Attending Unavailable Rachelle, Chalon Primary Care Unavailable Vellanki, Doris Referring Unavailable Vellanki, Doris Attending Unavailable Rachelle, Chalon Primary Care Unavailable Vellanki, Doris Attending Unavailable Vellanki, Doris Referring Unavailable MANUELA MONTANA Attending Unavailable RACHELLE, CHALON Primary Care Unavailable RACHELLE, CHALON Referring Unavailable RACHELLE, CHALON Primary Care Unavailable MOOMAW, LEONARDO Referring Unavailable RACHELLE, CHALON Primary Care Unavailable MOOMAW, LEONARDO Attending Unavailable RACHELLE, CHALON Primary Care Unavailable Allergies Allergy Classification Reported Allergen(s) Allergy Type Date of Onset Reaction(s) Facility (20 sources) Amoxicillin Drug Allergy 1 [facility] (20 sources) atorvastatin Drug Allergy 1 myalgiias [facility] Comment on above: muscle pain (20 sources) levoFLOXacin; Translations: [LEVOFLOXACIN] Drug Allergy 1 GI Upset, Vomiting [facility] Work Phone: (6 sources) Amoxicillin / Clavulanate; Translations: [AMOXICILLIN-POT CLAVULANATE] Drug Allergy 5 Rash [facility] Work Phone: (17 sources) atorvastatin; Translations: [ATORVASTATIN CALCIUM] Drug Allergy 5 Myalgia [facility] (17 sources) Sulfamethoxazole / Trimethoprim; Translations: [SULFAMETHOXAZOLE-TR IMETHOPRIM] Drug Allergy 9 GI Upset [facility] (1 source) Amoxicillin Drug Allergy 5 [facility] Repository (1 source) atorvastatin Drug Allergy 5 [facility] (1 source) levoFLOXacin Drug Allergy 5 [facility] Medications Current Medications Medication Drug [...] 15, 2018 7:04am September 10, 2019 2:41pm Personal history of urinary calculi Start: 12-15-2018 End: 09-10-2019 Hydrocodone-Acetaminophen Di scontinued 1 EACH PO EVERY 4 HOURS NEEDED December 15, 2018 7:04am September 10, 2019 2:41pm Comment on above: Take 1 tablet by surjit th every 6 hours as needed for pain for up to 7 days. amoxicillin 875 mg / clavulanate 125 mg oral tablet (3 sources) Penicillin-class Antibacterial Start: 3 End: 3 take 1 tablet by mouth twice daily amoxicillin-clavu lanic acid (AUGMENTIN) 875-125 mg per tablet Take 1 tablet by mouth twice daily for 18 days. 36 tablet 0 03/24/2023 04/11/2023 Active Comment on above: Take 1 tablet by surjit twice daily for 18 days. biotin 10 mg oral capsule (20 sources) Start: 4 take 1 capsule by mouth once daily Biotin 10,000 mcg capsule Active 55938 ug PO DAILY May 30, 2021 9:15am HAIR LOSS Start: 02-11-2014 End: 05-30-2021 Biotin 10,000 MCG capsule Discontinued 5000 ug PO DAILY February 11, 2014 12:00am May 30, 2021 9:22am HAIR LOSS Start: 02-11-2014 End: 05-30-2021 take 5000 ug by mouth once daily Biotin Discontinued 5000 MCG PO DAILY February 11, 2014 12:00am May 30, 2021 9:22am Comment on above: Take by mouth. Take 1 capsule by mo [facility] once daily. calcium carbonate 1500 mg / cholecalciferol 500 unt oral capsule (20 sources) Vitamin D Start: 05-30-2021 Calcium Carbonate-Vitamin D3 (Calcium 600 With Vitamin D3) 600 mg(1,500mg) -500 unit capsule Active 1 NMA PO TWICE A DAY May 30, 2021 1:00am SUPPLEMENT Start: 05-30-2021 take 1 capsule by mo [facility] twice daily Calcium Carbonate-Vitamin D3 (Calcium 600 With Vitamin D3) 600 mg(1,500mg) -500 unit capsule Active 1 CAP PO TWICE A DAY May 30, 2021 1:00am Start: 03-28-2007 take 1 tablet by surjit once daily Calcium Carb-Cholecalciferol (VINCENT-600 WITH VITAMIN D) 600 (1,500)-200 mg-unit ORAL Tab Take 1 tablet by mouth once daily. 0 03/28/2007 Active Start: 03-28-2007 take 1 tablet by surjit th twice daily Calcium Carb-Cholecalciferol (VINCENT-600 WITH VITAMIN D) 600 (1,500)-200 mg-unit ORAL Tab Take one(1) tablet twice daily. 0 03/28/2007 Active Comment on above: Take one(1) tablet t wice daily. COMPOUNDED PRESCRIPTION (15 sources) Start: 04-28-20 15 COMPOUNDED PRESCRIPTION cpap supplies: DX: sleep apnea 1 Each 0 04/28/2015 Active Comment on above: cpap supplies: DX: s leep apnea Cpap - Continuous Positive Airway Pressure([facility] Informational Use Only) device (2 sources) Start: 03-10-20 25 Cpap - Continuous Positive Airway Pressure([facility] Informational Use Only) device Active 0 .ROUTE March 10, 2025 12:00am SLEEP APNEA As directed cyanocobalamin, vitamin B-12, (B-12 KIT INJECTION) (1 source) cyanocobalamin, vitamin B-12, (B-12 KIT INJECTION) 1 mL by INJECTION(UNSPECIFIE D PARENTERAL ROUTES) route once every month. Active DULoxetine 30 mg delayed release oral capsule (20 sources) Serotonin and Norepinephrine Reuptake Inhibitor Start: 01-30-20 25 take 1 capsule by mouth once daily in the evening Duloxetine 30 mg capsule,delayed release(DR/EC) Active 30 mg PO EVERY EVENING 90 January 29, 2025 12:00am DEPRESSION Start: 01-18-2024 End: 01-29-2025 take 1 capsule by mouth once daily in the morning Duloxetine (Cymbalta) 60 mg capsule,delayed release(DR/EC) Active 60 mg PO EVERY MORNING 90 1 January 29, 2025 11:32am DEPRESSION ferrous sulfate 325 mg oral tablet (20 sources) Start: 02-11-2014 take 1 tablet by mouth twice daily Ferrous Sulfate 325 MG tablet Active 325 mg PO TWICE A DAY February 11, 2014 12:00am SUPPLEMENT Start: 02-11-2014 take 325 mg by mouth once viviana y Ferrous Sulfate Active 325 MG PO DAILY@0800 February 11, 2014 12:00am Start: 08-15-2010 take 1 tablet by surjit twice daily at mealtime Ferrous Sulfate 325 mg (65 mg Iron) ORAL tablet Take 1 tablet by mouth twice daily. TAKE WITH FOOD 0 08/15/2010 Active Start: 08-15-2010 take 1 tablet by surjit once daily at mealtime Ferrous Sulfate 325 mg (65 mg Iron) ORAL tablet Take one(1) tablet daily with food. 0 08/15/2010 Active Comment on above: Take one(1) tablet d aily with food. Take 1 tablet by surjit twice daily. TAKE WITH FOOD gabapentin 300 mg oral capsule (20 sources) Anti-epileptic Agent Start: 10-06-2024 take 1 capsule by mouth twice daily Gabapentin 300 mg capsule Active 300 mg PO TWICE A DAY October 06, 2024 11:32am PAIN Start: 10-06-2024 take 1 capsule by mo [facility] three times daily Gabapentin 300 mg capsule [...] on above: Take 1 capsule by mo [facility] every 12 hours for 30 days. hydroCHLOROthiazide 12.5 mg / lisinopril 20 mg oral tablet (20 sources) Thiazide Diuretic, Angiotensin Converting Enzyme Inhibitor Start: 10-06-2024 Lisinopril-Hydroc hlorothiazide 20-12.5 mg tablet Active 1 {tbl} PO daily October 06, 2024 12:00am BP Start: 01-23-2023 End: 10-06-2024 Lisinopril-Hydrochlorothiazi de 20-25 mg tablet Discontinued 1 {tbl} PO DAILY January 23, 2023 12:00am October 06, 2024 11:33am BP Start: 01-23-2023 take 1 tablet by surjit once daily Lisinopril-Hydrochlorothiazide Active 1 TABLET PO DAILY January 23, 2023 12:00am Start: 11-01-2018 take 10-12.5 mg by mouth once lisinopril-hydrochlorothiazide (PRINZIDE,ZESTORETIC) 10-12.5 mg per tablet Take 1 tablet by mouth once daily. 90 tablet 3 11/01/2018 Active Start: 02-11-2014 End: 01-23-2023 Lisinopril-Hydrochlorothiazi de 1 TABLET tablet Discontinued 1 {tbl} PO DAILY February 11, 2014 12:00am January 23, 2023 8:01am BLOOD PRESSURE Start: 02-11-2014 End: 01-23-2023 take 1 tablet by mouth once daily Lisinopril-Hydrochlorothiazide Discontin ued 1 TABLET PO DAILY February 11, 2014 12:00am January 23, 2023 8:01am Comment on above: Take 1 tablet by surjit th once daily. loratadine 10 mg oral tablet (13 sources) Start: take 1 tablet by mouth once daily as needed Loratadine 10 mg tablet Active 10 mg PO daily as needed for sinus symptoms/ear pressure 90 1 August 01, 2024 1:00am metFORMIN hydrochloride 1000 mg oral tablet (20 sources) Biguanide Start: take 1 tablet by mouth twice daily Metformin 1,000 mg tablet Active 1000 mg PO TWICE A DAY October 06, 2024 11:33am DIABETES Start: 02-11-2022 take 1 tablet by surjit [...] mg by mouth twice daily with meals. methotrexate 2.5 mg oral tablet (20 sources) Folate Analog Metabolic Inhibitor Start: 02-25-2025 Methotrexate Sodium 2.5 mg tablet Active 20 mg PO SA February 25, 2025 12:00am OA Start: 10-06-2024 End: 11-07-2024 Methotrexate Sodium 2.5 mg t ablet Discontinued 0 PO .qsat October 06, 2024 12:00am November 07, 2024 1:52pm 8 tabs orally QSAT; Start: 09-01-2024 methotrexate 2 .5 mg tablet 09/01/2024 Active multivitamin (DAILY VITAMIN) ORAL Tab (15 sources) Start: 03-28-2007 take 1 tablet by [...] Multivitamin With Folic Acid 1 TABLET tablet (13 sources) Start: 02-11-2014 take 1 tablet by mouth once daily Multivitamin With Folic Acid 1 TABLET tablet Active 1 {tbl} PO DAILY February 11, 2014 12:00am SUPPLEMENT Start: 02-11-2014 take 1 tablet by surjit th once daily Multivitamin With Folic Acid 1 TABLET tablet Active 1 {tbl} PO DAILY February 11, 2014 12:00am omeprazole 20 mg delayed release oral capsule (20 sources) Proton Pump Inhibitor Start: 03-10-2025 take 1 capsule by mouth once daily Omeprazole 20 mg capsule,delayed release(DR/EC) Active 20 mg PO DAILY March 10, 2025 12:00am GERD Start: 02-11-2014 End: 11-07-2024 take 1 capsule by mouth twice daily Omeprazole 20 MG capsule Discontinued 20 mg PO TWICE A DAY February 11, 2014 12:00am November 07, 2024 1:52pm REFLUX Comment on above: TAKE 1 CAPSULE TWICE A DAY 30 MINUTES BEFORE MEALS polyethylene glycol 3350 04378 mg powder for oral solution (15 sources) Osmotic Laxative Start: 10-26-19 16 polyethylene glycol 3350 (MIRALAX) 17 gram/dose powder 17 g/8 oz water daily as needed for constipation 1 Bottle 5 10/26/2015 Active Comment on above: 17 g/8 oz water viviana y as needed for constipation polyethylene glycol 3350 628966 mg / potassium chloride 2970 mg / sodium bicarbonate 6740 mg / sodium chloride 5860 mg / sodium sulfate 97665 mg powder for oral solution (1 source) Osmotic Laxative Start: 04-28-20 End: 04-28-20 22 peg 3350-Electrolytes (GOLYTELY) 236-22.74-6.74 -5.86 gram suspension Take 4,000 mL by mouth one time only for 1 dose. 1 Each 0 04/28/2022 04/28/2022 Active Comment on above: Take 4,000 mL by surjit th one time only for 1 dose. tiZANidine 4 mg oral tablet (20 sources) Central alpha-2 Adrenergic Agonist Start: 01-31-20 End: 03-10-20 take 1-2 tablets by mouth once daily Tizanidine 4 mg tablet Active 8 mg PO AT BEDTIME March 10, 2025 12:00am muscle spasticity/leg restlessness Take 1 to 2 tablets orally nightly. Start: 11-06-2023 End: 01-30-2025 take 2 tablets by mouth at bedtime Tizanidine 4 mg tablet Discontinued 8 mg PO AT BEDTIME 180 2 August 21, 2024 4:42pm January 30, 2025 1:03pm muscle spasticity/leg restlessness Start: 11-06-2023 take 8 mg by mouth at bedtime Tizanidine Active 8 MG PO AT BEDTIME 180 November 06, 2023 2:19pm Start: 07-10-2023 End: 11-06-2023 take 1-2 tablets by mouth at bedtime as needed Tizanidine 4 mg tablet Discontinued 0 PO AT BEDTIME as needed for muscle spasticity/leg restlessness 180 1 July 10, 2023 1:00am November 06, 2023 2:21pm Take 1 to 2 tablets orally at bedtime PRN traMADol hydrochloride 50 mg oral tablet (20 sources) Opioid Agonist Start: 01-25-2023 take 1 tablet by mouth every six hours as needed for pain Tramadol 50 mg Tablet Active 50 mg PO EVERY 6 HOURS as needed for Pain Score 6-10 25 0 January 25, 2023 12:00am On Hold: Ordered traZODone hydrochloride 50 mg oral tablet (20 sources) Serotonin Reuptake Inhibitor Start: 02-11-2014 take 2 tablets by mouth at bedtime Trazodone 50 MG tablet Active 100 mg PO AT BEDTIME February 11, 2014 12:00am SLEEP On Hold: Ordered Start: 02-11-2014 End: 03-13-2025 take 1 tablet by mouth once daily at bedtime traZODone (DESYREL) 50 mg tablet Take 1 tablet by mouth daily at bedtime. 90 tablet 3 11/01/2018 03/13/2025 Discontinued take 1 tablet by surjit th once daily at bedtime traZODone (DESYREL) 100 mg tablet Take 100 mg by mouth daily at bedtime. Active Comment on above: Take 1 tablet by daily at bedtime. warfarin sodium 4 mg oral tablet (20 sources) Vitamin K Antagonist Start: 03-10-2025 Warfarin 4 mg tablet Active 8 mg PO MOFR March 10, 2025 12:00am BLOOD THINNER Start: 10-06-2024 Warfarin (Jant oven) 5 mg tablet Active 10 mg PO SUTUWETHSA October 06, 2024 11:35am BLOOD THINNER Start: 01-23-2023 Warfarin (Warf skylar 5 Mg Tablet) 5 mg tablet Active 7.5 MG PO MOWE January 23, 2023 12:00am Start: 05-30-2021 Warfarin Activ e 3 MG PO .COMPLEX May 30, 2021 1:00am 3 mg PO; , , SUN, SUN Start: 09-15-2020 End: 05-30-2021 Warfarin 10 mg tablet Discon tinued 10 mg PO .COMPLEX September 15, 2020 1:00am May 30, 2021 9:22am 10 mg PO Tuesdays and ; on Tuesdays and Saturdays Start: 09-15-2020 End: 05-30-2021 Warfarin 7.5 mg tablet Disco ntinued 7.5 mg PO .all other days September 15, 2020 1:00am May 30, 2021 9:20am Start: 10-21-2018 End: 10-06-2024 take 7.5 mg by mouth once daily Warfarin (Jantoven) 5 mg tablet Discontinued 7.5 mg PO DAILY January 23, 2023 12:00am October 06, 2024 11:36am Start: 10-21-2018 take 9 mg by mouth once daily warfarin (COUMADIN) 5 mg tablet Take 9 mg by mouth once daily. 10/21/2018 Active Start: 10-21-2018 warfarin (COUM SUSHMA) 5 mg tablet Comment on above: Take 7.5 mg by mouth once daily. Completed/Discontinued Medications Medication Drug Class(es) Dates Sig (Normalized) Sig (Original) acetaminophen 325 mg / oxyCODONE hydrochloride 5 mg oral tablet (9 sources) Opioid Agonist Start: 01-12-2025 End: 02-25-2025 Oxycodone-Acetamino phen (Percocet) 5-325 mg tablet Discontinued 1 {tbl} PO Q8H as needed for pain 14 3 0 January 12, 2025 February 25, 2025 9:56am Back pain Dorsalgia, unspecified ALPRAZolam 0.5 mg oral tablet (20 sources) Benzodiazepine Start: 06-29-2022 End: 10-30-2022 Alprazolam 0.5 mg tablet Discontinued 0.5 mg PO .COMPLEX 1 0 June 29, 2022 1:00am October 30, 2022 2:24pm Claustrophobia Claustrophobia 0.5 mg orally x1 to be taken 30 minutes prior to MRI apixaban 5 mg oral tablet (20 sources) Factor Xa Inhibitor Start: 01-18-2017 End: 04-28-2022 take 1 tablet by mouth twice daily Apixaban 5 MG tablet Discontinued 5 mg PO TWICE A DAY January 18, 2017 12:00am September 15, 2020 10:02am BLOOD THINNER Comment on above: Take 1 tablet by surjit twice daily. baclofen 20 mg oral tablet (20 sources) gamma-Aminobutyric Acid-ergic Agonist Start: 02-27-2023 End: 03-01-2023 take 1 tablet by mouth three times daily Baclofen 20 mg tablet Discontinued 20 mg PO THREE TIMES A DAY 270 1 February 27, 2023 12:00am March 01, 2023 3:11pm Start: 10-30-2022 End: 02-27-2023 take 1 tablet by mouth three times daily as needed Baclofen 10 mg tablet Discontinued 10 mg PO THREE TIMES A DAY as needed for restless legs 30 5 October 30, 2022 12:00am February 27, 2023 10:49pm busPIRone hydrochloride 5 mg oral tablet (20 sources) Start: 03-10-2019 End: 03-10-2025 take 1 tablet by mouth three times daily as needed for anxiety Buspirone 5 mg tablet Discontinued 5 mg PO THREE TIMES A DAY as needed for anxiety May 30, 2021 9:17am March 10, 2025 3:04pm End: 03-13-2025 take 1 tablet by mouth every twelve hours as needed busPIRone (BUSPAR) 15 mg tablet Take 15 mg by mouth twice daily as needed (anxiety). 03/13/2025 Discontinued (Discontinued by Patient) Comment on above: TAKE 1 TABLET BY [...] 11, 2014 12:00am May 30, 2021 9:21am SUPPLEMENT Start: 02-11-2014 End: 05-30-2021 Calcium Citrate-Vitamin D3 D iscontinued 1 EACH PO TWICE DAILY WITH MEALS February 11, 2014 12:00am May 30, 2021 9:21am cefdinir 300 mg oral capsule (20 sources) Cephalosporin Antibacterial Start: 01-25-2023 End: 03-11-2023 take 1 capsule by mouth twice daily in the evening Cefdinir 300 mg capsule Discontinued 300 mg PO TWICE A DAY 15 0 January 25, 2023 12:00am March 11, 2023 [...] 14, 2018 12:00am September 10, 2019 2:41pm RECURRENT UTI ciprofloxacin 500 mg oral tablet (20 sources) Quinolone Antimicrobial Start: 12-15-2018 End: 09-10-2019 take 1 tablet by mouth twice daily Ciprofloxacin Hcl 500 MG tablet Discontinued 500 mg PO TWICE A DAY 14 0 December 15, 2018 12:00am September 10, 2019 2:41pm cyclobenzaprine hydrochloride 10 mg oral tablet (9 sources) Muscle Relaxant Start: 01-12-2025 End: 03-10-2025 take 1 tablet by mouth three times daily as needed for muscle spasms Cyclobenzaprine 10 mg tablet Discontinued 10 mg PO THREE TIMES A DAY as needed for Muscle Spasm 20 0 January 12, 2025 12:00am March 10, 2025 3:04pm dapagliflozin 10 mg oral tablet (5 sources) Sodium-Glucose Cotransporter 2 Inhibitor End: 03-13-2025 take 1 tablet by mouth once daily at breakfast dapagliflozin propanediol (FARXIGA) 10 mg tablet Take 10 mg by mouth daily with breakfast. 03/13/2025 Discontinued dexamethasone 4 mg oral tablet (20 sources) Corticosteroid Start: 06-13-2021 End: 06-27-2022 take 1 tablet by mouth once daily Dexamethasone 4 mg tablet Discontinued 4 mg PO DAILY 5 0 June 13, 2021 1:00am June 27, 2022 9:37am doxycycline monohydrate 100 mg oral capsule (20 sources) Tetracycline-class Drug Start: 01-20-2023 End: 01-25-2023 take 1 capsule by mouth twice daily Doxycycline Monohydrate 100 mg capsule Discontinued 100 mg PO TWICE A DAY 20 January 20, 2023 12:00am January 25, 2023 1:06pm Estradiol (13 sources) Estrogen Start: 01-18-2024 End: 11-07-2024 Estradiol [...] Take 1 tablet by surjit once daily. hydroxychloroquine sulfate 200 mg oral tablet (20 sources) Antimalarial, Antirheumatic Agent Start: 07-03-2023 take 1 tablet by mouth twice daily Hydroxychloroquine 200 mg tablet Active 200 mg PO TWICE A DAY January 18, 2024 12:00am OA Start: 07-03-2023 End: 10-06-2024 take 1 tablet by mouth once daily Hydroxychloroquine (Plaquenil) 200 mg tablet Discontinued 200 mg PO DAILY January 18, 2024 12:00am October 06, 2024 11:33am 3 ml insulin lispro 100 unt/ml pen [...] units >400 give 10units and notify PCP meclizine hydrochloride 25 mg oral tablet (20 sources) Antiemetic Start: 02-14-2022 End: 01-30-2025 take 1 tablet by mouth twice daily as needed for dizziness Meclizine 25 mg tablet Discontinued 25 mg PO TWICE A DAY as needed for dizziness 180 1 February 12, 2024 4:55pm August 01, 2024 9:55pm Comment on above: Take 25 mg by mouth twice daily. methylPREDNISolone acetate 40 mg/ml injectable suspension (3 sources) Corticosteroid Start: 09-15-2020 End: 09-15-2020 Depo-Medrol (methylprednisolon e acetate) 40 mg/mL suspension for injection Discontinued [...] / nitrofurantoin, monohydrate 75 mg oral capsule (20 sources) Nitrofuran Antibacterial Start: 10-19-2023 End: 10-26-2023 take 1 capsule by mouth every twelve hours at mealtime Nitrofurantoin Monohyd/M-Cryst 100 mg capsule Discontinued 1 NMA PO Q12H 14 7 0 October 19, 2023 12:00am October 25, 2023 12:00am October 26, 2023 12:06am administer with a meal/food; swallow whole; do not open, crush, dissolve , or chew Start: 07-25-2023 End: 07-30-2023 take 1 capsule by mouth every twelve hours at mealtime Nitrofurantoin Monohyd/M-Cryst (Macrobid) 100 mg capsule Discontinued 100 mg PO Q12H 10 5 0 July 25, 2023 1:00am July 29, 2023 1:00am July 30, 2023 1:04am must administer with a meal/food Drug Treatment Unknown - unknown (1 source) No information a vailable. predniSONE 10 mg oral tablet (20 sources) Start: 03-11-2023 End: 10-06-2024 Prednisone 10 [...] TO UPCOMING PROCEDURE PO PER PKG DIR rOPINIRole 2 mg oral tablet (20 sources) Nonergot Dopamine Agonist Start: 04-25-2022 End: 03-10-2025 Ropinirole 2 mg tablet Discontinued 2 mg PO .COMPLEX 180 2 August 21, 2024 4:40pm January 30, 2025 1:03pm Take 1 tablet orally q5PM and 1 tablet nightly as needed Start: 02-14-2022 End: 04-25-2022 take 1 tablet by mouth once daily Ropinirole 0.5 mg tablet Discontinued 0.5 mg PO DAILY 30 5 February 14, 2022 12:00am April 25, 2022 4:41pm Start: 10-21-2018 rOPINIRole (RE QUIP) 0.5 mg tablet Take by mouth twice daily. 0 10/21/2018 Active Comment on above: Take by mouth twice daily. Take 4 mg by mouth d aily at bedtime. varenicline 1 mg oral tablet (1 source) Partial Cholinergic Nicotinic Agonist Start: 04-22-20 End: 04-28-20 take 1 tablet by mouth twice daily varenicline (CHANTIX CONTINUING MONTH BOX) 1 mg tablet Indications: Tobacco use disorder Take 1 tablet by mouth twice daily. 1 Package 1 04/22/2019 04/28/2022 Discontinued Comment on above: Take 1 tablet by surjit th twice daily. venlafaxine 75 mg oral tablet (20 sources) Serotonin and Norepinephrine Reuptake Inhibitor Start: 02-12-20 End: 07-10-20 take 1 tablet by mouth twice daily Venlafaxine 75 MG tablet Discontinued 75 mg PO TWICE A DAY February 11, 2014 12:00am July 10, 2023 3:07pm DEPRESSION Comment on above: Take 1 tablet by surjit twice daily. vitamin b12 0.5 mg oral tablet (20 sources) Vitamin B12 Start: 08-15-19 End: 03-13-20 take 1 tablet by mouth once daily Cyanocobalamin (Vitamin B-12) 500 MCG tablet Discontinued 500 ug PO DAILY@0800 February 11, 2014 12:00am July 10, 2023 3:23pm SUPPLEMENT Comment on above: Take one (1) tablet daily Problems Active Problems Problem Classification Problem Date Documented Da te Episodic/Chronic Abdominal pain (1 source) Unspecified abdominal pain; Translations: [Unspecified abdominal pain] Onset: 5 Episodic Anxiety disorders (20 sources) Claustrophobia; Translations: [Claustrophobia] Onset: 1 06-29-2022 Chronic Calculus of urinary tract (20 sources) Kidney stone; Translations: [Calculus of kidney] 12-14-2018 Episodic Comment on above: bilateral stonesh/o DVT has IVC filter Chronic obstructive pulmonary disease and bronchiectasis (20 sources) Chronic obstructive lung disease; Translations: [Chronic obstructive pulmonary disease, unspecified] Onset: 4 Resolved: 7 04-27-2023 Chronic Chronic ulcer of skin (20 sources) Skin ulcer; Translations: [Non-pressure chronic ulcer of skin of other sites with fat layer exposed] 05-25-2023 Chronic Conditions associated with dizziness or vertigo (20 sources) Vertiginous syndrome; Translations: [Unspecified disorder of vestibular function, unspecified ear] Onset: 5 Episodic Diabetes mellitus with complications (20 sources) Type 2 diabetes mellitus; Translations: [Type 2 diabetes mellitus with other diabetic kidney complication] Onset: 5 06-15-2015 Chronic Diabetes mellitus without complication (5 sources) Type 2 diabetes mellitus without complication; Translations: [Type 2 diabetes mellitus without complications] Onset: 5 03-17-2023 Chronic Diseases of white blood cells (10 sources) Leukocytosis; Translations: [Elevated white blood cell count, unspecified] Onset: 3 03-17-2023 Chronic Disorders of lipid metabolism (15 sources) Hyperlipidemia; Translations: [Hyperlipidemia, unspecified] Onset: 4 03-15-2015 Chronic Esophageal disorders (15 sources) Gastroesophageal reflux disease; Translations: [Gastro-esophageal reflux disease without esophagitis] Onset: 2 03-14-2012 Chronic Essential hypertension (15 sources) Benign essential hypertension; Translations: [Essential (primary) hypertension] Onset: 1 08-15-2010 Chronic Genitourinary symptoms and ill-defined conditions [...] fatigue, unspecified; Translations: [Chronic fatigue, unspecified] Onset: 5 Chronic Mood disorders (5 sources) Depressive disorder; Translations: [Depression] Onset: 1 08-15-2010 Chronic Neoplasms of unspecified nature or uncertain behavior (20 sources) Monoclonal gammopathy (clinical); Translations: [Monoclonal gammopathy] Onset: 5 02-27-2023 Chronic Nutritional deficiencies (20 sources) Iron [...] or localized, pelvic region and thigh] Onset: 5 12-25-2022 Chronic Other aftercare (2 sources) Surgical follow-up; Translations: [Encounter for follow-up examination after completed treatment for conditions other than malignant neoplasm] 03-30-2023 Episodic Other aftercare (1 source) Drug-induced immunodeficiency ; Translations: [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)] 03-13-2025 Episodic Other aftercare (1 source) Other terminal supervisor (current) drug therapy; Translations: [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)] Onset: Episodic Other and ill-defined cerebrovascular disease (20 [...] meninges] Chronic Other and unspecified benign neoplasm (15 sources) Neoplasm of meninges; Translations: [Benign neoplasm of meninges, unspecified] Onset: 8 12-26-2017 Chronic Other and unspecified benign neoplasm (20 sources) Intracranial meningioma; Translations: [Benign neoplasm of cerebral meninges] 02-14-2022 Chronic Other and unspecified benign neoplasm (2 sources) History of polyp of colon; Translations: [Personal history of colonic polyps] Episodic Other and unspecified benign neoplasm (1 source) Personal history of colonic polyps; Translations: [History of colonic polyps] Onset: 2 Episodic Other and unspecified benign neoplasm (20 sources) Bilateral adenoma of adrenal glands; Translations: [Benign neoplasm of right adrenal gland] 04-19-2023 Episodic Comment on above: CT 10/01/2023 reviewe d, shows R pleural thickening and stable bilateral adrenal nodules. CT 09/29/2024 reviewe d, shows fatty liver and no adrenal mass. Other connective tissue disease (20 sources) Pain in right lower limb; Translations: [Pain in right leg] 02-27-2023 Episodic Other connective tissue disease (20 sources) Neurogenic claudication; Translations: [Other symptoms and signs involving the nervous system] 02-27-2023 Episodic Other connective tissue disease (20 sources) Muscle pain; Translations: [Myalgia, unspecified site] 03-01-2023 Episodic Other connective tissue disease (6 sources) Myalgia, unspecified site; Translations: [Myalgia and myositis, unspecified] 03-01-2023 Episodic Other connective tissue disease (13 sources) Trochanteric bursitis; Translations: [Trochanteric bursitis, right hip] 01-18-2024 Episodic Other connective tissue disease (10 sources) Fibromyalgia; Translations: [Fibromyalgia] 01-30-2025 Episodic Other connective tissue disease (1 source) Pain in right leg; Translations: [Pain in right leg] Onset: 5 Episodic Other connective tissue disease (1 source) Fibromyalgia; Translations: [Fibromyalgia] Onset: 5 Episodic Other hereditary and degenerative nervous system conditions (20 sources) Restless legs; Translations: [Restless legs syndrome] 06-29-2022 Chronic Other hereditary and degenerative nervous system conditions (20 sources) Restless legs syndrome; Translations: [Restless legs syndrome (RLS)] Onset: 5 Chronic Other hereditary and degenerative nervous system [...] injuries and conditions due to external causes (13 sources) Open wound; Translations: [Other injury of unspecified body region, initial encounter] 04-27-2023 Episodic Other liver diseases (19 sources) Steatosis of liver; Translations: [Fatty (change of) liver, not elsewhere classified] 10-10-2024 Chronic Other lower respiratory disease (1 source) Pleuritic pain; Translations: [Pleurodynia] Episodic Other lower respiratory disease (20 sources) Hypoxia; Translations: [Hypoxemia] 01-23-2023 Episodic Other lower respiratory disease (2 sources) Hypoxemia; Translations: [Hypoxemia] 01-23-2023 Episodic Other lower respiratory disease (20 sources) Dyspnea on exertion; Translations: [Other forms [...] foot; Translations: [Acute left ankle pain] Onset: Episodic Other nutritional; endocrine; and metabolic disorders (16 sources) Obese class II; Translations: [Obesity, unspecified] Onset: 9 09-09-2018 Chronic Other nutritional; endocrine; and metabolic disorders (20 sources) Obesity, unspecified; Translations: [Obesity, unspecified] Onset: 9 12-25-2022 Chronic Other nutritional; endocrine; and metabolic disorders (20 sources) Obesity; Translations: [Obesity, unspecified] 12-25-2022 Chronic Other nutritional; endocrine; and metabolic disorders (10 sources) Body mass index 40+ - severely obese; Translations: [Morbid (severe) obesity due to excess calories] Onset: 3 03-21-2023 Chronic Other nutritional; endocrine; and metabolic disorders (20 sources) History of iron deficiency; Translations: [Personal history of other endocrine, nutritional and metabolic disease] 10-30-2022 Episodic Other nutritional; endocrine; and metabolic disorders (20 sources) Personal history of other endocrine, nutritional and metabolic disease; Translations: [Personal history of diseases of blood and blood-forming organs] 10-30-2022 Episodic Other screening for suspected conditions (not mental disorders or infectious disease) (20 sources) Encounter for screening for malignant neoplasm of colon; Translations: [Serum total protein abnormal] Onset: 2 04-12-2023 Episodic Comment on above: Discussed evaluation of abnormal serum protein, evaluation and management, Pt agrees to proceed. Phlebitis; thrombophlebitis and thromboembolism (20 sources) Deep venous thrombosis of lower extremity; Translations: [Acute embolism and thrombosis of right femoral vein] Onset: 5 06-15-2015 Episodic Pleurisy; pneumothorax; pulmonary collapse (20 sources) Pleural effusion; Translations: [Pleural effusion, not elsewhere classified] Onset: 3 01-23-2023 Episodic Pneumonia (except that caused by tuberculosis or sexually transmitted disease) (20 sources) Pneumonia; Translations: [Pneumonia, unspecified organism] Onset: 3 01-20-2023 Episodic Pulmonary heart disease (16 sources) H/O: pulmonary embolus; Translations: [Personal history of pulmonary embolism] Onset: 5 06-15-2015 Episodic Residual codes; unclassified (1 source) Other specified personal risk factors, not elsewhere classified; Translations: [Encounter for gynecologic examination for high-risk patient covered by Medicare] Onset: 5 Episodic Rheumatoid arthritis and related disease (1 source) Inflammatory polyarthropathy; Translations: [Inflammatory polyarthropathy] Onset: 5 Chronic Spondylosis; intervertebral disc disorders; other back problems (20 sources) Degeneration of lumbar intervertebral disc; Translations: [Other intervertebral disc degeneration, lumbar region] 11-08-2023 Chronic Spondylosis; intervertebral disc disorders; other back problems (20 sources) Cervical radiculitis; Translations: [Radiculopathy, cervical region] 09-15-2020 Episodic Unclassified (1 source) No current problems or disability 02-15-2017 Unclassified (15 sources) Chronic deep venous thrombosis of lower extremity; Translations: [DVT, recurrent, lower extremity, chronic] Onset: 6 08-19-2015 Unclassified (20 sources) Primary osteoarthritis of right hip; Translations: [M16.11 - Unilateral primary osteoarthritis, right hip] Unclassified (1 source) Low back pain, unspecified; Translations: [Low back pain, unspecified] Onset: 5 Unclassified (1 source) Other specified cough; Translations: [Other specified cough] Onset: 4 Unclassified (1 source) 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); Translations: [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)] Onset: 5 Past or Other Problems Problem Classification Problem Date Documented Date Episodic/Chronic Abdominal hernia (5 sources) Disorder of abdominal wall; Translations: [Ventral hernia without obstruction or gangrene] Onset: 08-15-2010 Resolved: 05-13-2014 05-13-2014 Episodic Acute and unspecified renal failure (10 sources) Acute injury of kidney; Translations: [Acute kidney failure, unspecified] Onset: 03-19-2023 03-20-2023 Episodic Acute posthemorrhagic anemia (10 sources) Acute posthemorrhagic anemia; Translations: [Acute posthemorrhagic anemia] Onset: 03-17-2023 03-17-2023 Episodic Bacterial infection; unspecified site (10 sources) Streptococcal infectious disease; Translations: [Streptococcal infection, unspecified site] Onset: 03-17-2023 03-18-2023 Episodic Deficiency and other anemia (1 source) Anemia, unspecified; Translations: [Anemia, unspecified] Onset: 08-28-2024 Episodic Gastroduodenal ulcer (except hemorrhage) (5 sources) Acute gastrojejunal ulcer; Translations: [Acute gastrojejunal ulcer without hemorrhage or perforation] Onset: 06-16-2008 Resolved: 12-28-2014 12-28-2014 Episodic Malaise and fatigue (20 sources) Fatigue; Translations: [Other fatigue] Onset: 10-06-2024 10-30-2022 Episodic Other aftercare (15 sources) Long-term current use of anticoagulant; Translations: [ocean transportation intermediary (current) use of anticoagulants] Onset: 02-08-2016 02-08-2016 Episodic Other aftercare (10 sources) Insulin dose changed; Translations: [ocean transportation intermediary (current) use of insulin] Onset: 03-23-2023 03-23-2023 Episodic Other aftercare (1 source) ocean transportation intermediary (current) use of anticoagulants; Translations: [ocean transportation intermediary (current) use of anticoagulants] Onset: 11-18-2024 Episodic Other and unspecified benign neoplasm (11 sources) Benign neoplasm of right adrenal gland; Translations: [Benign neoplasm of adrenal gland] Onset: 10-06-2024 04-19-2023 Episodic Other and unspecified benign neoplasm (1 source) Benign neoplasm of left adrenal gland; Translations: [Benign neoplasm of left adrenal gland] Onset: 10-06-2024 Episodic Other connective tissue disease (5 sources) Tendinitis of wrist; Translations: [Other enthesopathies, not elsewhere classified] Onset: 12-11-2013 Resolved: 05-13-2014 05-13-2014 Episodic Other connective tissue disease (5 sources) Right rotator cuff syndrome; Translations: [Unspecified rotator cuff tear or rupture of right shoulder, not specified as traumatic] Onset: 10-16-2016 Resolved: 09-09-2018 09-09-2018 Episodic Other connective tissue disease (5 sources) Pain in bilateral legs; Translations: [Pain in right leg] Onset: 11-22-2016 Resolved: 09-09-2018 09-09-2018 Episodic Other connective tissue disease (5 sources) Radicular pain; Translations: [Neuralgia and neuritis, unspecified] Onset: 03-30-2017 Resolved: 09-09-2018 09-09-2018 Episodic Other liver diseases (1 source) Hepatomegaly, not elsewhere classified; Translations: [Hepatomegaly, not elsewhere classified] Onset: 10-07-2024 Episodic Other lower respiratory disease (7 sources) Other forms of dyspnea; Translations: [Other respiratory abnormalities] 03-11-2023 Episodic Other lower respiratory disease (1 source) Shortness of breath; Translations: [Shortness of breath] Onset: 05-06-2024 Episodic Other nervous system disorders (5 sources) Carpal tunnel syndrome of left wrist; Translations: [Carpal tunnel syndrome, left upper limb] Onset: 10-31-2013 Resolved: 05-13-2014 05-13-2014 Chronic Other nervous system disorders (5 sources) Carpal tunnel syndrome of right wrist; Translations: [Carpal tunnel syndrome, right upper limb] Onset: 05-13-2014 Resolved: 09-09-2018 09-09-2018 Chronic Other nervous system disorders (10 sources) Postoperative pain ; Translations: [Other acute postprocedural pain] Onset: 03-16-2023 03-17-2023 Episodic Other nutritional; endocrine; and metabolic disorders (5 sources) Morbid obesity; Translations: [Morbid (severe) obesity due to excess calories] Onset: 08-15-2010 Resolved: 09-09-2018 09-09-2018 Chronic Other nutritional; endocrine; and metabolic disorders (5 sources) Excess panniculus of abdomen; Translations: [Localized adiposity] Onset: 03-15-2015 Resolved: 09-09-2018 09-09-2018 Chronic Otitis media and related conditions (5 sources) Disorder of left Eustachian tube; Translations: [Unspecified Eustachian tube disorder, left ear] Onset: 11-05-2017 Resolved: 09-09-2018 09-09-2018 Episodic Residual codes; unclassified (15 sources) Other specified health status; Translations: [Other drug allergy] Onset: 10-16-2016 10-16-2016 Episodic Screening and history of mental health and substance abuse codes (10 sources) Tobacco use and exposure - finding; Translations: [Personal history of nicotine dependence] Onset: 03-14-2023 03-17-2023 Episodic Unclassified (1 source) Patient encounter status 03-13-2025 Results Test Name Value Interpretation Reference Range Facility CNCOon 03-21-2025 CNCO Letter Text Normal [facility] Fructosamineon 03-17-2025 FRUCTOSAMINE 235 umol/L Normal 0-285 [facility] Comment on above: Result Comment: Publ ished reference interval for apparently healthysubjects between age 20 and 60 is 205 - 285 umol/L and in apoorly controlled diabetic population is 228 - 563 umol/Lwith a mean of 396 umol/L.Performed at: [address] [id number] Director: Herb Kincaid PhD, Phone: [phone] Performed By: #### L 3400.7584, M100.651, L501.5200, BTSPAT ####[facility] [id number] [place], [place], [address] MRSA/SAID NASAL SCREENon MRSA+SAID SCRN Reason for Exam: Surgery MRSA MRSA Negative S. AUREUS S. aureus Negative Normal [facility] Comment on above: Performed By: #### L 3400.0100, M100.651, L501.5200, BTSPAT ####[facility] [id number] [place], [address] Magnesiumon 03-16-2025 Magnesium [Mass/Vol] 1.9 mg/dL Normal 1.5-2.2 [facility] Comment on above: Performed By: #### L 3400.0100, M100.651, L501.5200, BTSPAT ####[facility] [id number] [place], [address] Type AND Screen - PAT ONLYon 03-16-2025 Ab SCREEN GEL Negative Normal [facility] Comment on above: Order Comment: Surge ry Date: 03/24/25Reason for Laboratory Test PREOPRESULTS FOR MG GO TO Kamilla MUÑOZ AND ALL OTHER LAB RESULTS GOTO DR. [id number] TOTAL HIP Performed By: #### L 3400.0100, M100.651, L501.5200, BTSPAT ####[facility] [id number] [place], [address] CNOVon 03-13-2025 CNOV Office Visit (OBGYWM) ART BLUE ([id number]) 1955 F Date Time Provider Department 03/13/25 10:00 AM MANUELA [place] During your visit today, we recorded the following information about you: Pulse Respiration Blood pressure Weight 84/minute 14/minute 122/80 104.3 kg Height 1.651 m Manuela Montana APRN.[employer] 03/13/2025 11:30 AM Signed Art is a 69 year old who presents for an annual gynecologic exam without complaints. - Scheduled for hip replacement surgery in 9 days at [facility]. Plans to stay in a facility for rehabilitation post-surgery due to her 's severe neuropathy, which limits his ability to assist at home. Postmenopausal: Yes since age Late 40's, early 50's HRT use: No. Last Pap: 05/10/2022 normal HPV: 05/10/2022 negative History of abnormal pap: Yes - cryo ' Last mammogram: 2024 normal History of abnormal mammogram: No Sexually active: No Vaginal dryness: No Menopause symptoms: None Bothersome pelvic pain: No Documentation from previous visit of 05/10/2022 was copied and pasted, documentation has been reviewed and edited as necessary for today's visit. OB History Gravida1 Para1 Term0 Preterm1 AB0 Living1 SAB0 IAB0 Ectopic0 Multiple0 Live Births0 Coutierier History LMP: Postmenopausal Age at Menarche: 13 Age at First : Age at Menopause: Coutierier History Comments: Sexual Activity: Not Currently; Male; [...] LDL goal < 100 05/13/2014 Incisional hernia 02/12/2014 Meningioma (HCC) 12/26/2017 12/26/17: 5 mm. 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) 06/15/2015 Type II or unspecified type diabetes mellitus without mention of complication, uncontrolled PAST SURGICAL HISTORY Procedure Laterality Date COLONOSCOPY 06/28/2022 repeat in 5 years ESOPHAGOGASTRODUODEN OSCOPY TRANSORAL DIAGNOSTIC 05/27/2008 GASTRIC BYPASS 05/28/2006 [place]-en-Y gastric bypass IRIDOTOMY/IRIDECTOMY BY LASER 07/23/2004 bilat NEUROPLASTY AND/TRANSPOS MEDIAN NRV CARPAL TUNNE 10/31/2013 Carpal tunnel decomp Left PAST SURGICAL HISTORY OF vulcan PAST SURGICAL HISTORY OF 2015 panelectomy REPAIR INCISIONAL HERNIA 02/12/[address] Guerin FAMILY HISTORY Problem Relation Age of Onset Hypertension Mother Arthritis Mother Heart Father Hypertension Father Hypertension Brother Cancer Brother something in his face SOCIAL HISTORY Social History Tobacco Use Smoking status: Former Current packs/day: 1.50 Average packs/day: 1.5 packs/day for 35.0 years (52.5 ttl pk-yrs) Types: Cigarettes, Cigars Smokeless tobacco: Never Tobacco comments: 01/20/14 Vaping Use Vaping status: Never Used Substance Use Topics Alcohol use: Not Currently Drug use: Not Currently Types: Marijuana REVIEW OF SYSTEMS Abdomen: No abdominal pain, nausea, vomiting, diarrhea, or constipation. No bloating, early satiety, indigestion, or increased flatulence. Bladder: No dysuria, gross hematuria, urinary frequency, urinary urgency, or incontinence Breast: No breast lumps, nipple d/c, overlying skin changes, redness or skin retraction Allergies and current medication updated:Yes SENSITIVE EXAM: The sensitive examination was discussed with the Patient or Patient's Authorized Fire Hydrant Operator. As applicable, any other physician, advance practice provider, medical student, or other health professional student that will be observing or involved in the sensitive examination for educational or training purposes was discussed with the Patient or Authorized Fire Hydrant Operator. The Patient or Authorized Fire Hydrant Operator has agreed to proceed with the sensitive examination. (Sensitive examination includes inspection and/or palpation of the breasts, pelvis, prostate and anorectal regions). EXAM: BP 122/80 Pulse 84 Resp 14 Ht 5' 5 (1.65m) Wt 230 lb (104.3kg) SpO2 96% BMI 38.27 kg/(m2). GENERAL: pleasant, female in no apparent distress HEENT: Normocephalic, atraumatic, mucus membranes moist, and no lesions NECK: Supple, full range of motion, no adenopathy, and thyroid normal DERMATOLOGY: Normal, without lesions, non-icteric, and non-hirsute BREAST: soft, non-tender, symmetric, no dominant ma (more content not included)... Normal [facility] Extremity Lower without Cont raon 03-13-2025 Extremity Lower without Contra Normal [facility] MR/PAT.ANEon 03-13-2025 MR/PAT.ANE Normal [facility] PAP TESTon 03-13-2025 ADEQUACY Satisfactory for interpretation. Normal [facility] Comment on above: Order Comment: Speci men Type: FLUID SPECIMEN Ordering Facility: [facility] Address: [address] [place] [address] Performed By: #### L [id number] #### [facility] CLIA [id number] [address] [address], [address] [place] [address] STATES OF [facility] CLIA [id number] [address] [place] [address] [place] CASE REPORT Normal [facility] Comment on above: Order Comment: Speci men Type: FLUID SPECIMEN Ordering Facility: [facility] Address: [address] [place] [address] Result Comment: Gyne cologic Cytology Report Case: [id number] Authorizing Provider: Manuela Montana APRN.[employer] WARRANT OFFICER Collected: 03/13/2025 10:43 AM Ordering Location: OB/Gynecology Received: 03/13/2025 11:58 AM First Screen: Aramouni, Nikole, CT, ASCP Specimen: Pap Test, ThinPrep, Cervix Performed By: #### L [id number] #### [facility] CLIA [id number] [address] [place] [address], [address] [place] [address] [place] [facility] CLIA [id number] [address] [place] [address] [place] CLINICAL HISTORY, CYTOLOGY, FIRE PROTECTION ENGINEER Post Menopausal Normal [facility] Comment on above: Order Comment: Speci men Type: FLUID SPECIMEN Ordering Facility: [facility] Address: [address] [place] [address] Performed By: #### L [id number] #### [facility] CLIA [id number] [address] [place] [address] [address] [place] [id number] [place] [facility] CLIA [id number] [address] [place] [address] [place] CYTOLOGY PAP OTHER INTERPRETATION Atrophic specimen. Normal [facility] Comment on above: Order Comment: Speci men Type: FLUID SPECIMEN Ordering Facility: [facility] Address: [address] [place] [address] Performed By: #### L [id number] #### [facility] CLIA [id number] [address] [place] [address] [address] [place] [id number] [place] [facility] CLIA [id number] [address] [place] [address] [place] [facility] Normal [facility] Comment on above: Order Comment: Speci men Type: FLUID SPECIMEN Ordering Facility: [facility] Address: [address] [place] [address] Result Comment: Tech nical component, gas controller screening performed at: [facility], [address] [place] [address], [address], [place] [address] CLIA: [id number] Diagnostic interpretation performed at: [facility], [address] [place] [address], [address], [place] [address] CLIA# [id number] Senior Consulting Manager: Alfa Padilla MD Performed By: #### L [id number] #### [facility] CLIA [id number] [address] [place] [address] [address] [place] [id number] [place] [facility] CLIA [id number] [address] [place] [address] [place] INTERPRETATION, CYTOLOGY, FIRE PROTECTION ENGINEER Normal [facility] Comment on above: Order Comment: Speci men Type: FLUID SPECIMEN Ordering Facility: [facility] Address: [address] [place] [address] Result Comment: Nega tive for intraepithelial lesion or malignancy. at 0913 EDT Performed By: #### L [id number] #### [facility] CLIA [id number] [address] [place] [address] 3, [address] [place], [place] [id number] [place] [facility] CLIA [id number] [address] [place] [address] [place] PAP DISCLAIMER COMMENT The Pap Smear is a screening test for cervical cancer. False negative results occur with all screening tests, emphasizing the need for rescreening at recommended intervals, and clinical correlation. Normal [facility] Comment on above: Order Comment: Speci men Type: FLUID SPECIMEN Ordering Facility: [facility] Address: [address] [place] [address] Performed By: #### L [id number] #### [facility] CLIA [id number] [address] [place] [address], [address] [place] [address] LAB CLIA [id number] [address] [place] [address] [place] PAP INTERACTIVE ACCOUNT MANAGER COMMENT This specimen has been analyzed by the FDA-approved Anti-Microbial SolutionsTM System, which uses digital imaging and an enhanced artificial intelligence image analysis algorithm to identify byrd of interest on the microscopic slide, to assist the insulation helper and pathologist in evaluating cells on ThinPrep Pap tests. Following analysis, byrd of interest on the microscopic slide selected by the algorithm are reviewed by a insulation helper. If a sample requires hierarchical review, the pathologist will review the same byrd of interest selected by the algorithm prior to final interpretation. Normal [facility] Comment on above: Order Comment: Speci men Type: FLUID SPECIMEN Ordering Facility: [facility] Address: [address] [place] [address] Performed By: #### L [id number] #### [facility] CLIA [id number] [address] [place] [address], [address] [place], [place] [id number] [facility] CLIA [id number] [address] [place] [address] [place] Office Visit Reporton 2024 Office Visit Report Normal [facility] Venous Duplex US, Unilateral on 03-09-2025 Venous Duplex US, Unilateral Normal [facility] Venous duplex ultrasound rep ortOrdered By: Addi Hassan on 03-09-2025 US Vein [facility] [address] [place] [address] Venous Duplex US, Unilateral 03/09/25 1454 MR#: [id number] Acct: [id number] Name: ART BLUE Rep #:[id number] : 1955 69 From: Addi Hassan MD Attending Dr: Dr. Jose Ramon Terry, Status: REG CLI Ordering Dr: Jose Ramon Terry DO Date: 03/09/25 Location: [facility] Sex: F C Admitted: Reason For Study Reason For Study: Pain RLE RIGHT LEFT GSV is normal. CFV is compressible, spontaneous, phasic, competent, Chronic SVT/wall thickening noted Rt SFJ. and demonstrates normal augmentation. CFV is compressible, spontaneous, phasic, competent and demonstrates normal augmentation. FV is compressible, spontaneous, phasic, competent and demonstrates normal augmentation. POP V is compressible, spontaneous, phasic, competent and demonstrates normal augmentation. T/P Trunk is compressible. PTV is compressible. RT PerV is compressible. Procedure This is a venous duplex using B-mode, color flow and spectral Doppler. Exam performed in department. A preliminary report was called and/or faxed to Dr. Reis. VL/Venous Duplex US, Unilateral Interpretation Summary Deep veins of the right lower extremity are patent and compressible segmentally.There is no evidence of right lower extremity deep vein thrombosis. Valvular competence appears intact within the proximal deep venous system on the right . The right great saphenous vein appears patent and compressible segmentally. Chronic vein wall thickening is noted in the proximal right great saphenous vein at the sapheno-femoral junction. The left common femoral vein is patent and compressible . Ordering Physician: Jose Ramon Terry Referring Physician: Meir Bush Performed By: Griselda Caldwell RDCS, RVT 03/09/251842 Date _ Addi Hassan MD CC: Dr. Meir Bush MD; Dr. Jose Ramon Terry, DO ~ Date Dictated: 03/09/25 1454 Date Transcribed: 03/09/251842 Investment Underwriter: Signed [facility] Other Phone: Orthopedic Visit Reporton Orthopedic Visit Report Normal W [facility] VALENTIN SCREENING W TOMOon 02-23 VALENTIN SCREENING W GAL * * *Final Report* * * DATE OF EXAM: Feb 23 2025 3:22PM [facility] 0582 - VALENTIN SCREENING W GAL / PROCEDURE REASON: screening * * * * Physician Interpretation * * * * RESULT: [place] [address] #[id number] - VALENTIN SCREENING W GAL HISTORY: 69 year-old patient presents for screening. Patient is asymptomatic in both breasts. Patient states no personal history of breast cancer. COMPARISON STUDIES: The present examination has been compared to prior imaging studies dated 01/10/2016 (mammogram), 04/09/2017 (mammogram), 05/06/2018 (mammogram) and 06/18/2019 (mammogram). MAMMOGRAM TECHNIQUE: The study was acquired using full field digital technology and interpreted from soft copy. Digital Breast Tomosynthesis (DBT) images were obtained and used to assist in the interpretation of this examination. MAMMOGRAM FINDINGS: There are scattered areas of fibroglandular density. No suspicious masses, calcifications or other abnormalities are seen in either breast. There are no significant interval changes. IMPRESSION: There is no mammographic evidence of malignancy in either breast. Routine screening mammogram is recommended. Annual mammogram will be due in 1 year. BI-RADS Category 1: Negative RISK: Based on the Tyrer-Cuzick (TC) risk assessment model, this patient has a 5.9% lifetime risk of developing breast cancer, meaning they are at average risk for developing breast cancer. However, this is only an estimate based on available history provided on the patient's questionnaire. We encourage all patients to talk with their providers about these results, further recommendations for managing breast health, and appropriate supplemental screening options if the patient has dense breast tissue. Interpreting Radiologist: Rae Jung M.D. Electronically signed on: 02/24/2025 Investment Underwriter: JOHAN Transcribe Date/Time: Feb 23 2025 2:25P Dictated by: RAE JUNG MD This examination was interpreted and the report reviewed and electronically signed by: RAE JUNG MD on Feb 24 2025 8:25AM EST [id number] Normal [facility] Anion gap in Serum or Plasma Ordered By: Meir Bush on 02-19-2025 Anion gap [Moles/Vol] 16 mmol/L High 5-15 [facility] BUN/creatinine ratioOrdered By: Meir Bush on 02-19-2025 Urea nitrogen/Creatinine [Mass ratio] 27.8 mg/mg High 10-20 [facility] Basic Metabolic Profile (BMP )on 02-19-2025 BUN/CRE 27.8 RATIO High [facility] Comment on above: Performed By: #### L 506.1001, L500.4100, L500.2500 ####[facility] [address] [place], [address] Calcium [Mass/Vol] 9.8 mg/dL Normal 7.6-11.0 [facility] Comment on above: Performed By: #### L 506.1001, L500.4100, L500.2500 ####[facility] [address] [place], [address] Chloride [Moles/Vol] 96 mmol/L Low 98-108 [facility] Comment on above: Performed By: #### L 506.1001, L500.4100, L500.2500 ####[facility] [address] [place], [address] CO2 [Moles/Vol] 26.0 mmol/L Normal 21.0-32.0 [facility] Comment on above: Performed By: #### L 506.1001, L500.4100, L500.2500 ####[facility] [address] [place], [address] Creatinine [Mass/Vol] 0.98 mg/dL Normal 0.70-1.20 [facility] Comment on above: Performed By: #### L 506.1001, L500.4100, L500.2500 ####[facility] [address] [place], [address] GAP 16 High 5-15 [facility] Comment on above: Performed By: #### L 506.1001, L500.4100, L500.2500 ####[facility] [address] [place], [address] GFR/1.73 sq M.predicted among non-blacks MDRD (S/P/Bld) [Vol rate/Area] 63 mL/min/{1.73_m2} Normal >60 [facility] Comment on above: Result Comment: mL/m in/1.73m2 CKD-EPI Creatinine Equation (2020) Performed By: #### L 506.1001, L500.4100, L500.2500 ####[facility] [address] [place], [address] Glucose [Mass/Vol] 123 mg/dL High 70-99 [facility] Comment on above: Performed By: #### L 506.1001, L500.4100, L500.2500 ####[facility] [address] [place], [address] Potassium [Moles/Vol] 4.4 mmol/L Normal 3.3-5.1 [facility] Comment on above: Performed By: #### L 506.1001, L500.4100, L500.2500 ####[facility] [address] [place], [address] Sodium [Moles/Vol] 138 mmol/L Normal 133-145 [facility] Comment on above: Performed By: #### L 506.1001, L500.4100, L500.2500 ####[facility] [address] [place], [address] Urea nitrogen [Mass/Vol] 27 mg/dL High 4-19 [facility] Comment on above: Performed By: #### L 506.1001, L500.4100, L500.2500 ####[facility] [address] [place], [address] Calculated very low density lipoprotein (VLDL) cholesterol measurementOrdered By: Meir Bush on 02-19-2025 Calculated very low density lipoprotein (VLDL) cholesterol measurement 33 mg/dL 5-40 [facility] Carbon dioxide, total [Moles /volume] in Central venous bloodOrdered By: Meir Bush on 02-19-2025 CO2 [Moles/Vol] 26.0 mmol/L 21.0-32.0 [facility] Chloride assayOrdered By: Jose Bush on 02-19-2025 Chloride [Moles/Vol] 96 mmol/L Low 98-108 [facility] Glomerular filtration rate ( GFR) estimation/1.73 sq m using serum, plasma, or whole bOrdered By: Meir Bush on 02-19-2025 GFR/1.73 sq M.predicted among non-blacks MDRD (S/P/Bld) [Vol rate/Area] 63 mL/min/{1.73_m2} >60 [facility] Comment on above: mL/min/1.73m2 CKD-EP I Creatinine Equation (2020) LDL calc ser/plasOrdered By: Meir Bush on 02-19-2025 Cholesterol in LDL [Mass/Vol] 123 mg/dL [facility] Comment on above: Gvuiywfeva=920-484 m g/dL & Higher Kwxj=554 mg/dL or greaterFriedwald Equation for LDL-C Lipid Profileon 02-19-2025 CHOL:HDL 3.98 Normal [facility] Comment on above: Performed By: #### L 506.1001, L500.4100, L500.2500 ####[facility] [address] [place], [address] Cholesterol [Mass/Vol] 209 mg/dL High <=200 [facility] Comment on above: Result Comment: Chol esterol level, Desirable <200 mg/dLBorderline high cholesterol 200-239 mg/dLHigh cholesterol >=240 mg/dLRecommendations of the NCEP Adult Treatment Panel for thefollowing risk-cutoff thresholds for the [place] Americanpulation. Performed By: #### L 506.1001, L500.4100, L500.2500 ####[facility] [address] [place], [address] Cholesterol in HDL [Mass/Vol] 53 mg/dL Normal [facility] Comment on above: Result Comment: Florencia onal Cholesterol Education Program (NCEP) guidelines:<40 mg/dL: Low HDL-cholesterol (major risk factor for CHD)>= 60 mg/dL: High HDL-cholesterol (negative risk factor forCHD)HDL-cholesterol is affected by a number of factors, e.g.smoking, exercise, hormones, sex and age. Performed By: #### L 506.1001, L500.4100, L500.2500 ####[facility] [address] [place], [address] Cholesterol in LDL [Mass/Vol] 123 mg/dL Normal [facility] Comment on above: Result Comment: Bord trznkp=722-370 mg/dL Higher Beue=019 mg/dL or greaterFriedwald Equation for LDL-C Performed By: #### L 506.1001, L500.4100, L500.2500 ####[facility] [address] [place], [address] Cholesterol in VLDL [Mass/Vol] 33 mg/dL Normal 5-40 [facility] Comment on above: Performed By: #### L 506.1001, L500.4100, L500.2500 ####[facility] [address] [place], [address] Triglyceride [Mass/Vol] 167 mg/dL Normal [facility] Comment on above: Result Comment: The drugs N-Acetylcysteine and Metamizole may falselydepress this assay.Normal range: <150 mg/dLBorderline High: 150-199 mg/dLHigh: 200-499 mg/dLVery High: >500 mg/dL Performed By: #### L 506.1001, L500.4100, L500.2500 ####[facility] [address] [facility] [address] [place], [place], [id number] Potassium measurement (mass/ volume)Ordered By: Meir Bush on 02-19-2025 Potassium (Unsp spec) [Mass/Vol] 4.4 mmol/L 3.3-5.1 [facility] Screening total cholesterol/ high density lipoprotein (HDL) cholesterol ratioOrdered By: Meir Bush on 02-19-2025 Cholesterol.total/Cholester ol in HDL [Mass ratio] 3.98 {ratio} [facility] Serum creatinine measurement (mass/volume)Ordered By: Meir Bush on 02-19-2025 Creatinine [Mass/Vol] 0.98 mg/dL 0.70-1.20 [facility] Serum glucose measurement (m ass/volume)Ordered By: Meir Bush on 02-19-2025 Glucose [Mass/Vol] 123 mg/dL High 70-99 [facility] Serum or plasma calcium jatin urement (mass/volume)Ordered By: Meir Bush on 02-19-2025 Calcium [Mass/Vol] 9.8 mg/dL 7.6-11.0 [facility] Serum or plasma cholesterol in HDL measurement (mass/volume)Ordered By: Meir Bush on 02-19-2025 Cholesterol in HDL [Mass/Vol] 53 mg/dL >40 [facility] Comment on above: National Cholesterol Education Program (NCEP) guidelines:<40 mg/dL: Low HDL-cholesterol (major risk factor for CHD)>= 60 mg/dL: High HDL-cholesterol (negative risk factor for CHD)HDL-cholesterol is affected by a number of factors, e.g. smoking, exercise, hormones, sex and age. Serum or plasma cholesterol measurement (mass/volume)Ordered By: Meir Bush on 02-19-2025 Cholesterol [Mass/Vol] 209 mg/dL High <201 [facility] Comment on above: Cholesterol level, D esirable <200 mg/dLBorderline high cholesterol 200-239 mg/dLHigh cholesterol >=240 mg/dLRecommendations of the NCEP Adult Treatment Panel for the following risk-cutoff thresholds for the [place] population. Serum or plasma urea nitroge n measurement (mass/volume)Ordered By: Meir Bush on 02-19-2025 Urea nitrogen [Mass/Vol] 27 mg/dL High 4-19 [facility] Sodium levelOrdered By: Gladis Bush on 02-19-2025 Sodium [Moles/Vol] 138 mmol/L 133-145 [facility] Triglycerides measurementOrd ered By: Meir Bush on 02-19-2025 Triglyceride [Mass/Vol] 167 mg/dL <199 [facility] Comment on above: The drugs N-Acetylcy steine and Metamizole may falsely depress this assay. Normal range: <150 mg/dLBorderline High: 150-199 mg/dLHigh: 200-499 mg/dLVery High: >500 mg/dL Vitamin D,25 Hydroxyon 02-19 Vitamin D 25-OH 34.7 ng/mL Normal 30-100 [facility] Comment on above: Result Comment: Norma min D StatusDeficiency: <20 ng/mL (50nmol/L)Insufficiency: 20-30 ng/mL (50-75 nmol/L)Sufficiency: 30-100 ng/mL (75-250 nmol/L)Toxicity: >100 ng/mL (>250 nmol/L) Performed By: #### L 506.1001, L500.4100, L500.2500 ####[facility] [address] [place], [place], [id number] Neurology Visit Reporton Neurology Visit Report Normal [facility] PT D/C Summary (1)on 025 PT D/C Summary (1) Normal [facility] Abdomen/Pelvis without Conto n 01-12-2025 Abdomen/Pelvis without Cont Normal [facility] Absolute lymphocyte countOrd ered By: ED PROVIDER on 01-12-2025 Lymphocytes Auto (Unsp spec) [#/Vol] 2.56 10*3/uL 0.83-4.51 [facility] Absolute neutrophil countOrd ered By: ED PROVIDER on 01-12-2025 Neutrophils (Bld) [#/Vol] 5.5 10*3/uL 2.0-7.7 [facility] Anion gap in Serum or Plasma Ordered By: Juan Manuel Enamorado on 01-12-2025 Anion gap [Moles/Vol] 12 mmol/L 5-15 [facility] Automated lymphocyte count a s percentage of total leukocytesOrdered By: ED PROVIDER on 01-12-2025 Lymphocytes/100 WBC Auto (Unsp spec) 29.0 % 19-41 [facility] BUN/creatinine ratioOrdered By: Juan Manuel Enamorado on 01-12-2025 Urea nitrogen/Creatinine [Mass ratio] 21.4 mg/mg High 10-20 [facility] Basophil percentageOrdered B y: ED PROVIDER on 01-12-2025 Basophils/100 WBC (Bld) 0.7 % 0-1 W [facility] Bilirubin Test strip Ql (U)O rdered By: ED PROVIDER on 01-12-2025 Bilirubin Ql (U) Negative Negative [facility] Bilirubin, totalOrdered By: Juan Manuel Enamorado on 01-12-2025 Bilirubin [Mass/Vol] 0.26 mg/dL 0.00-1.30 [facility] CBC W/Diff, Automatedon 12-22 Absolute Lymph 2.56 X10 3/uL Normal 0.83-4.51 [facility] Comment on above: Performed By: #### L 500.4050, L100.0100 ####[facility] [address] [place], [address] Absolute Neut 5.5 X10 3/uL Normal 2.0-7.7 [facility] Comment on above: Performed By: #### L 500.4050, L100.0100 ####[facility] [address] [place], [address] Basophils/100 WBC (Bld) 0.7 % Normal 0-1 [facility] Comment on above: Performed By: #### L 500.4050, L100.0100 ####[facility] [address] [place], [address] Eosinophils/100 WBC (Bld) 1.1 % Normal 0-5 [facility] Comment on above: Performed By: #### L 500.4050, L100.0100 ####[facility] [address] [place], [address] Erythrocyte distribution width (RBC) [Ratio] 14.4 % Normal 11.6-14.6 [facility] Comment on above: Performed By: #### L 500.4050, L100.0100 ####[facility] [address] [place], [address] Hematocrit (Bld) [Volume fraction] 37.4 % Normal 37-47 [facility] Comment on above: Performed By: #### L 500.4050, L100.0100 ####[facility] [address] [place], [address] Hemoglobin (Bld) [Mass/Vol] 12.3 g/dL Normal 12.0-15. 0 [facility] Comment on above: Performed By: #### L 500.4050, L100.0100 ####[facility] [address] [place], [address] IG% 0.800 Normal 0.0-0.9 [facility] [facility] Comment on above: Result Comment: IG% - Immature Granulocytes (promyelocytes, myelocytes andmetamyelocytes) > 1% indicates that a LEFT SHIFT is Present. Performed By: #### L 500.4050, L100.0100 ####[facility] [address] [place], [address] Lymphocytes/100 WBC (Bld) 29.0 % Normal 19-41 [facility] Comment on above: Performed By: #### L 500.4050, L100.0100 ####[facility] [address] [place], [address] MCH (RBC) [Entitic mass] 30.9 pg Normal 27.0-32.0 [facility] Comment on above: Performed By: #### L 500.4050, L100.0100 ####[facility] [address] [place], [address] MCHC (RBC) [Mass/Vol] 32.9 g/dL Normal 32-36 [facility] Comment on above: Performed By: #### L 500.4050, L100.0100 ####[facility] [address] [place], [address] MCV (RBC) [Entitic vol] 94.0 fL Normal 81-99 [facility] Comment on above: Performed By: #### L 500.4050, L100.0100 ####[facility] [address] [place], [address] Monocytes/100 WBC (Bld) 6.5 % Normal 0-10 [facility] Comment on above: Performed By: #### L 500.4050, L100.0100 ####[facility] [address] [place], [address] Neutrophils/100 WBC (Bld) 61.9 % Normal 47-70 [facility] Comment on above: Performed By: #### L 500.4050, L100.0100 ####[facility] [address] [place], [address] Nucleated RBC (Bld) [#/Vol] 0 10*3/uL Normal 0-5 [facility] Comment on above: Performed By: #### L 500.4050, L100.0100 ####[facility] [address] [place], [address] Platelet mean volume (Bld) [Entitic vol] 9.9 fL Normal 6.2-12.0 [facility] Comment on above: Performed By: #### L 500.4050, L100.0100 ####[facility] [address] [place], [address] Platelets (Bld) [#/Vol] 311 10*3/uL Normal 150-450 [facility] Comment on above: Performed By: #### L 500.4050, L100.0100 ####[facility] [address] [place], [address] RBC (Bld) [#/Vol] 3.98 10*6/uL Low 4.2-5.4 [facility] Comment on above: Performed By: #### L 500.4050, L100.0100 ####[facility] [address] [place], [address] RDW SD 49.1 fl High 35.1-43.9 [facility] Comment on above: Performed By: #### L 500.4050, L100.0100 ####[facility] [address] [place], [address] WBC (Bld) [#/Vol] 8.8 10*3/uL Normal 4.4-11.0 [facility] Comment on above: Performed By: #### L 500.4050, L100.0100 ####[facility] [address] [place], [address] Carbon dioxide, total [Moles /volume] in Central venous bloodOrdered By: Juan Manuel Enamorado on 01-12-2025 CO2 [Moles/Vol] 25.5 mmol/L 21.0-32.0 [facility] Chloride assayOrdered By: Edith Enamorado on 01-12-2025 Chloride [Moles/Vol] 104 mmol/L 98-108 [facility] Comprehensive Metabolic Prof ilon 01-12-2025 Albumin [Mass/Vol] 4.0 g/dL Normal 3.4-4.8 [facility] Comment on above: Performed By: #### L 500.4050, L100.0100 ####[facility] [address] [place], [address] Albumin/Globulin [Mass ratio] 1.2 {ratio} Normal 0.9-2.4 [facility] Comment on above: Performed By: #### L 500.4050, L100.0100 ####[facility] [address] [place], [address] ALK PHOS 61 U/L Normal 35-104 [facility] Comment on above: Performed By: #### L 500.4050, L100.0100 ####[facility] [address] [place], [address] ALT [Catalytic activity/Vol] 20 U/L Normal <=34 [facility] Comment on above: Performed By: #### L 500.4050, L100.0100 ####[facility] [address] [place], [address] AST [Catalytic activity/Vol] 30 U/L Normal <=31 [facility] Comment on above: Result Comment: Hemo lysis present, Results??could be affected.?? Performed By: #### L 500.4050, L100.0100 ####[facility] [address] [place], [address] Bilirubin [Mass/Vol] 0.26 mg/dL Normal 0.00-1.30 [facility] Comment on above: Performed By: #### L 500.4050, L100.0100 ####[facility] [address] [place], [address] BUN/CRE 21.4 RATIO High 10-20 [facility] Comment on above: Performed By: #### L 500.4050, L100.0100 ####[facility] [address] [place], [address] Calcium [Mass/Vol] 9.7 mg/dL Normal 7.6-11.0 [facility] Comment on above: Performed By: #### L 500.4050, L100.0100 ####[facility] [address] [place], [address] Chloride [Moles/Vol] 104 mmol/L Normal 98-108 [facility] Comment on above: Performed By: #### L 500.4050, L100.0100 ####[facility] [address] [place], [address] CO2 [Moles/Vol] 25.5 mmol/L Normal 21.0-32.0 [facility] Comment on above: Performed By: #### L 500.4050, L100.0100 ####[facility] [address] [place], [address] Creatinine [Mass/Vol] 0.81 mg/dL Normal 0.70-1.20 [facility] Comment on above: Performed By: #### L 500.4050, L100.0100 ####[facility] [address] [place], [address] ECRCL 80.84 ml/min Normal 50-250 [facility] Comment on above: Performed By: #### L 500.4050, L100.0100 ####[facility] [address] [place], [address] GAP 12 Normal 5-15 [facility] Comment on above: Performed By: #### L 500.4050, L100.0100 ####[facility] [address] [place], [address] GFR/1.73 sq M.predicted among non-blacks MDRD (S/P/Bld) [Vol rate/Area] 79 mL/min/{1.73_m2} Normal >60 [facility] Comment on above: Result Comment: mL/m in/1.73m2 CKD-EPI Creatinine Equation (2020) Performed By: #### L 500.4050, L100.0100 ####[facility] [address] [place], [address] Globulin (S) [Mass/Vol] 3.2 g/dL Normal 2.2-4.2 [facility] Comment on above: Performed By: #### L 500.4050, L100.0100 ####[facility] [address] [place], [address] Glucose [Mass/Vol] 118 mg/dL High 70-99 [facility] Comment on above: Performed By: #### L 500.4050, L100.0100 ####[facility] [address] [place], [address] Potassium [Moles/Vol] 4.8 mmol/L Normal 3.3-5.1 [facility] Comment on above: Result Comment: Hemo lysis present, Results??could be affected.?? Performed By: #### L 500.4050, L100.0100 ####[facility] [address] [place], [address] Sodium [Moles/Vol] 142 mmol/L Normal 133-145 [facility] Comment on above: Performed By: #### L 500.4050, L100.0100 ####[facility] [address] [place], [address] T PROT 7.3 g/dL Normal 5.9-8.4 [facility] Comment on above: Performed By: #### L 500.4050, L100.0100 ####[facility] [address] [place], [place], [address] Urea nitrogen [Mass/Vol] 17 mg/dL Normal 4-19 [facility] Comment on above: Performed By: #### L 500.4050, L100.0100 ####[facility] [address] [place], [address] Emergency Department Summary on 01-12-2025 Emergency Department Summary Normal [facility] Eosinophil percentageOrdered By: ED PROVIDER on 01-12-2025 Eosinophils/100 WBC (Bld) 1.1 % 0-5 [facility] Erythrocyte distribution wid th ratioOrdered By: ED PROVIDER on 01-12-2025 Erythrocyte distribution width (RBC) [Ratio] 14.4 % 11.6-14.6 [facility] Erythrocyte distribution wid th standard deviationOrdered By: ED PROVIDER on 01-12-2025 Erythrocyte distribution width (RBC) [Ratio] 49.1 fl High 35.1-43.9 [facility] Glomerular filtration rate ( GFR) estimation/1.73 sq m using serum, plasma, or whole bOrdered By: Juan Manuel Enamorado on 01-12-2025 GFR/1.73 sq M.predicted among non-blacks MDRD (S/P/Bld) [Vol rate/Area] 79 mL/min/{1.73_m2} >60 [facility] Comment on above: mL/min/1.73m2 CKD-EP I Creatinine Equation (2020) Hematocrit Auto (Bld) [Volum e fraction]Ordered By: ED PROVIDER on 01-12-2025 Hematocrit (Bld) [Volume fraction] 37.4 % 37-47 [facility] Hemoglobin measurementOrdere d By: ED PROVIDER on 01-12-2025 Hemoglobin (Bld) [Mass/Vol] 12.3 g/dL 12.0-15. 0 [facility] Immature granulocytes/100 WB C Auto (Bld)Ordered By: ED PROVIDER on 01-12-2025 Immature granulocytes/100 WBC (Bld) 0.800 % 0.0-0.9 [facility] Comment on above: IG% - Immature Granu locytes (promyelocytes, myelocytes and metamyelocytes) > 1% indicates that a LEFT SHIFT is Present. Ketones Test strip Ql (U)Ord ered By: ED PROVIDER on 01-12-2025 Ketones Ql (U) Negative Negative [facility] Laboratory - Chemistry and C hemistry - challengeOrdered By: Juan Manuel Enamorado on 01-12-2025 AST [Catalytic activity/Vol] 30 U/L <32 [facility] Comment on above: Hemolysis present, R esults could be affected. MCV (mean corpuscular volume ) determinationOrdered By: ED PROVIDER on 01-12-2025 MCV (RBC) [Entitic vol] 94.0 fL 81-99 [facility] Mean corpuscular hemoglobin (MCH) determinationOrdered By: ED PROVIDER on 01-12-2025 MCH (RBC) [Entitic mass] 30.9 pg 27.0-32.0 [facility] Mean corpuscular hemoglobin concentration (MCHC) determinationOrdered By: ED PROVIDER on 01-12-2025 MCHC (RBC) [Mass/Vol] 32.9 g/dL 32-36 [facility] Mean platelet volume determi nationOrdered By: ED PROVIDER on 01-12-2025 Platelet mean volume (Bld) [Entitic vol] 9.9 fL 6.2-12.0 [facility] Microscopic analysis of urin e for red blood cells (RBC)Ordered By: ED PROVIDER on 01-12-2025 Microscopic analysis of urine for red blood cells (RBC) 0 SEEN /hpf 0-5 [facility] Monocyte percentageOrdered B y: ED PROVIDER on 01-12-2025 Monocytes/100 WBC (Bld) 6.5 % 0-10 [facility] Mucus LM Ql (Urine sed)Order ed By: ED PROVIDER on 01-12-2025 Mucus Ql (Urine sed) 0 SEEN /hpf [facility] Neutrophil percentageOrdered By: ED PROVIDER on 01-12-2025 Neutrophils/100 WBC (Bld) 61.9 % 47-70 [facility] Nitrite Test strip Ql (U)Ord ered By: ED PROVIDER on 01-12-2025 Nitrite Ql (U) Negative Negative [facility] Nucleated red blood cell per centageOrdered By: ED PROVIDER on 01-12-2025 Nucleated RBC/100 WBC (Bld) [Ratio] 0 % 0-5 [facility] Platelet countOrdered By: ED PROVIDER on 01-12-2025 Platelets (Bld) [#/Vol] 311 10*3/uL 150-450 [facility] Potassium measurement (mass/ volume)Ordered By: Juan Manuel Enamorado on 01-12-2025 Potassium (Unsp spec) [Mass/Vol] 4.8 mmol/L 3.3-5.1 [facility] Comment on above: Hemolysis present, R esults could be affected. Protein Test strip Ql (U)Ord ered By: ED PROVIDER on 01-12-2025 Protein Ql (U) 15 mg/dl High Negative [facility] RBC Auto (Bld) [#/Vol]Ordere d By: ED PROVIDER on 01-12-2025 RBC (Bld) [#/Vol] 3.98 10*6/uL Low 4.2-5.4 [facility] Serum creatinine measurement (mass/volume)Ordered By: Juan Manuel Enamorado on 01-12-2025 Creatinine [Mass/Vol] 0.81 mg/dL 0.70-1.20 [facility] Serum globulin measurementOr dered By: Juan Manuel Enamorado on 01-12-2025 Globulin (S) [Mass/Vol] 3.2 g/dL 2.2-4.2 [facility] Serum glucose measurement (m ass/volume)Ordered By: Juan Manuel Enamorado on 01-12-2025 Glucose [Mass/Vol] 118 mg/dL High 70-99 [facility] Serum or plasma alanine reyes otransferase (ALT) measurementOrdered By: Juan Manuel Enamorado on 01-12-2025 ALT [Catalytic activity/Vol] 20 U/L <35 [facility] Serum or plasma albumin jatin urement (mass/volume)Ordered By: Juan Manuel Enamorado on 01-12-2025 Albumin [Mass/Vol] 4.0 g/dL 3.4-4.8 [facility] Serum or plasma albumin/glob ulin mass ratioOrdered By: Juan Manuel Enamorado on 01-12-2025 Albumin/Globulin [Mass ratio] 1.2 {ratio} 0.9-2.4 [facility] Serum or plasma alkaline lana sphatase measurementOrdered By: Juan Manuel Kelsea on 01-12-2025 ALP [Catalytic activity/Vol] 61 U/L 35-104 [facility] Serum or plasma calcium jatin urement (mass/volume)Ordered By: Remus Ungfarzana on 01-12-2025 Calcium [Mass/Vol] 9.7 mg/dL 7.6-11.0 [facility] Serum or plasma urea nitroge n measurement (mass/volume)Ordered By: Remus Ungfarzana on 01-12-2025 Urea nitrogen [Mass/Vol] 17 mg/dL 4-19 [facility] Sodium levelOrdered By: Aleemack s Kelsea on 01-12-2025 Sodium [Moles/Vol] 142 mmol/L 133-145 [facility] Squamous epithelial cells de tection in urine sediment by light microscopyOrdered By: ED PROVIDER on 01-12-2025 Epithelial cells.squamous LM Ql (Urine sed) 0-5 SEEN /hpf - [facility] Total proteinOrdered By: Rem us Kelsea on 01-12-2025 Protein [Mass/Vol] 7.3 g/dL 5.9-8.4 [facility] Urinalysis, Completeon 01-12 EPI,SQUAMOUS 0-5 SEEN Normal -10 [facility] Comment on above: Order Comment: CLEAN CATCH Performed By: #### L 400.0001 ####[facility] [address] [place], [place], [address] BACTERIA 0 SEEN Normal None Seen [facility] Comment on above: Order Comment: CLEAN CATCH Performed By: #### L 400.0001 ####[facility] [address] [place], [address] Mucus Ql (Urine sed) 0 SEEN Normal [facility] Comment on above: Order Comment: CLEAN CATCH Performed By: #### L 400.0001 ####[facility] [address] [place], [address] RBC 0 SEEN Normal 0-5 [facility] Comment on above: Order Comment: CLEAN CATCH Performed By: #### L 400.0001 ####[facility] [address] [place], [place], [address] WBC 0 SEEN Normal 0-5 [facility] Comment on above: Order Comment: CLEAN CATCH Performed By: #### L 400.0001 ####[facility] [address] [place], [place], [id number] Urine clarityOrdered By: ED PROVIDER on 01-12-2025 Clarity (U) Sl. Cloudy Clear [facility] Urine color determinationOrd ered By: ED PROVIDER on 01-12-2025 Color (U) Yellow Yellow [facility] Urine glucose detectionOrder ed By: ED PROVIDER on 01-12-2025 Glucose Ql (U) Normal mg/dl Normal [facility] Urine leukocyte esterase det ection by dipstickOrdered By: ED PROVIDER on 01-12-2025 Leukocyte esterase Test strip Ql (U) Negative Negative [facility] Urine pHOrdered By: ED PROVI YECENIA on 01-12-2025 pH (U) 6.0 [pH] 5.0 - 8.0 [facility] Urine sediment bacteria coun t by microscopy (number/high power field)Ordered By: ED PROVIDER on 01-12-2025 Bacteria LM.HPF (Urine sed) [#/Area] 0 /[HPF] None Seen [facility] Urine specific gravity measu rementOrdered By: ED PROVIDER on 01-12-2025 Specific gravity (U) [Rel density] 1.015 1.002-1.030 [facility] Urine urobilinogen measureme ntOrdered By: ED PROVIDER on 01-12-2025 Urobilinogen Ql (U) Normal mg/dl Normal [facility] White blood cell (WBC) count Ordered By: ED PROVIDER on 01-12-2025 WBC (Bld) [#/Vol] 8.8 10*3/uL 4.4-11.0 [facility] White blood cell countOrdere d By: ED PROVIDER on 01-12-2025 White blood cell count 0 SEEN /hpf 0-5 [facility] CBC W/Diff, Automatedon 06-1 9-2025 Absolute Lymph 2.56 X10 3/uL Normal 0.83-4.51 [facility] Comment on above: Order Comment: Order Date: 01/07/25Order Info: [id number] - CBCCC TO DR. YIP Performed By: #### L 100.0100 ####[facility] [address] [place], [address] Absolute Neut 5.0 X10 3/uL Normal 2.0-7.7 [facility] Comment on above: Order Comment: Order Date: 01/07/25Order Info: [id number] - CBCCC TO DR. YIP Performed By: #### L 100.0100 ####[facility] [address] [place], [address] Basophils/100 WBC (Bld) 0.7 % Normal 0-1 [facility] Comment on above: Order Comment: Order Date: 01/07/25Order Info: [id number] - CBCCC TO DR. YIP Performed By: #### L 100.0100 ####[facility] [address] [place], [address] Eosinophils/100 WBC (Bld) 1.6 % Normal 0-5 [facility] Comment on above: Order Comment: Order Date: 01/07/25Order Info: [id number] - CBCCC TO DR. YIP Performed By: #### L 100.0100 ####[facility] [address] [place], [address] IG% 0.700 Normal 0.0-0.9 [facility] Comment on above: Order Comment: Order Date: 01/07/25Order Info: [id number] - CBCCC TO DR. YIP Result Comment: IG% - Immature Granulocytes (promyelocytes, myelocytes andmetamyelocytes) > 1% indicates that a LEFT SHIFT is Present. Performed By: #### L 100.0100 ####[facility] [address] [place], [address] Lymphocytes/100 WBC (Bld) 30.9 % Normal 19-41 [facility] Comment on above: Order Comment: Order Date: 01/07/25Order Info: [id number] - CBCCC TO DR. YIP Performed By: #### L 100.0100 ####[facility] [address] [place], [address] Monocytes/100 WBC (Bld) 5.6 % Normal 0-10 [facility] Comment on above: Order Comment: Order Date: 01/07/25Order Info: [id number] - CBCCC TO DR. YIP Performed By: #### L 100.0100 ####[facility] [address] [place], [address] Neutrophils/100 WBC (Bld) 60.5 % Normal 47-70 [facility] Comment on above: Order Comment: Order Date: 01/07/25Order Info: [id number] - CBCCC TO DR. YIP Performed By: #### L 100.0100 ####[facility] [address] [place], [address] Nucleated RBC (Bld) [#/Vol] 0 10*3/uL Normal 0-5 [facility] Comment on above: Order Comment: Order Date: 01/07/25Order Info: [id number] - CBCCC TO DR. YIP Performed By: #### L 100.0100 ####[facility] [address] [place], [address] Abdomen Single Viewon 2024 Abdomen Single View Normal [facility] Absolute lymphocyte countOrd ered By: Indira Valdez on 01-07-2025 Lymphocytes Auto (Unsp spec) [#/Vol] 2.56 10*3/uL 0.83-4.51 [facility] Absolute neutrophil countOrd ered By: Indira Delaneyorrefra on 01-07-2025 Neutrophils (Bld) [#/Vol] 5.0 10*3/uL 2.0-7.7 [facility] Anion gap in Serum or Plasma Ordered By: Indira [facility] on 01-07-2025 Anion gap [Moles/Vol] 14 mmol/L 5-15 [facility] Automated lymphocyte count a s percentage of total leukocytesOrdered By: on 01-07-2025 Lymphocytes/100 WBC Auto (Unsp spec) 30.9 % 19-41 [facility] BUN/creatinine ratioOrdered By: [facility] on 01-07-2025 Urea nitrogen/Creatinine [Mass ratio] 25.0 mg/mg High 10-20 [facility] Basophil percentageOrdered B y: Indira [facility] on 01-07-2025 Basophils/100 WBC (Bld) 0.7 % 0-1 [facility] Bilirubin, totalOrdered By: [facility] on 01-07-2025 Bilirubin [Mass/Vol] 0.29 mg/dL 0.00-1.30 [facility] CBC-Complete Blood Cnt No Di ffon 01-07-2025 Erythrocyte distribution width (RBC) [Ratio] 14.6 % Normal 11.6-14.6 [facility] Comment on above: Order Comment: Order Date: 01/07/25Order Info: [id number] - CBCCC TO DR. YIP Performed By: #### L 100.0500 ####[facility] [address] [place], [place], [phone] Hematocrit (Bld) [Volume fraction] 36.1 % Low 37-47 [facility] Comment on above: Order Comment: Order Date: 01/07/25Order Info: [id number] - CBCCC TO DR. YIP Performed By: #### L 100.0500 ####[facility] [address] [place], [address] Hemoglobin (Bld) [Mass/Vol] 11.9 g/dL Low 12.0-15. 0 [facility] Comment on above: Order Comment: Order Date: 01/07/25Order Info: [id number] - CBCCC TO DR. YIP Performed By: #### L 100.0500 ####[facility] [address] [place], [address] MCH (RBC) [Entitic mass] 30.7 pg Normal 27.0-32.0 [facility] Comment on above: Order Comment: Order Date: 01/07/25Order Info: [id number] - CBCCC TO DR. YIP Performed By: #### L 100.0500 ####[facility] [address] [place], [address] MCHC (RBC) [Mass/Vol] 33.0 g/dL Normal 32-36 [facility] Comment on above: Order Comment: Order Date: 01/07/25Order Info: [id number] - CBCCC TO DR. YIP Performed By: #### L 100.0500 ####[facility] [address] [place], [address] MCV (RBC) [Entitic vol] 93.3 fL Normal 81-99 [facility] Comment on above: Order Comment: Order Date: 01/07/25Order Info: [id number] - CBCCC TO DR. YIP Performed By: #### L 100.0500 ####[facility] [address] [place], [address] Platelet mean volume (Bld) [Entitic vol] 10.2 fL Normal 6.2-12.0 [facility] Comment on above: Order Comment: Order Date: 01/07/25Order Info: [id number] - CBCCC TO DR. YIP Performed By: #### L 100.0500 ####[facility] [address] [place], [address] Platelets (Bld) [#/Vol] 345 10*3/uL Normal 150-450 [facility] Comment on above: Order Comment: Order Date: 01/07/25Order Info: [id number] - CBCCC TO DR. YIP Performed By: #### L 100.0500 ####[facility] [address] [place], [address] RBC (Bld) [#/Vol] 3.87 10*6/uL Low 4.2-5.4 [facility] Comment on above: Order Comment: Order Date: 01/07/25Order Info: [id number] - CBCCC TO DR. YIP Performed By: #### L 100.0500 ####[facility] [address] [place], [place], [phone] RDW SD 49.4 fl High 35.1-43.9 [facility] Comment on above: Order Comment: Order Date: 01/07/25Order Info: [id number] - CBCCC TO DR. YIP Performed By: #### L 100.0500 ####[facility] [address] [place], [place], [address]) WBC (Bld) [#/Vol] 8.4 10*3/uL Normal 4.4-11.0 [facility] Comment on above: Order Comment: Order Date: 01/07/25Order Info: [id number] - CBCCC TO DR. YIP Performed By: #### L 100.0500 ####[facility] [address] [place], [place], [address] Carbon dioxide, total [Moles /volume] in Central venous bloodOrdered By: Indira McMorrow on 01-07-2025 CO2 [Moles/Vol] 26.0 mmol/L 21.0-32.0 [facility] Chloride assayOrdered By: An gel McMorrow on 01-07-2025 Chloride [Moles/Vol] 98 mmol/L 98-108 [facility] Comprehensive Metabolic Prof ilon 01-07-2025 Albumin [Mass/Vol] 4.2 g/dL Normal 3.4-4.8 [facility] Comment on above: Order Comment: Order Date: 01/07/25Order Info: [id number] - CMPCC CMP AND CBC TO DR. YIP Performed By: #### L 500.4050 ####[facility] [address] [place], [address] Albumin/Globulin [Mass ratio] 1.4 {ratio} Normal 0.9-2.4 [facility] Comment on above: Order Comment: Order Date: 01/07/25Order Info: [id number] - CMPCC CMP AND CBC TO DR. YIP Performed By: #### L 500.4050 ####[facility] [address] [place], [address] ALK PHOS 61 U/L Normal 35-104 [facility] Comment on above: Order Comment: Order Date: 01/07/25Order Info: [id number] - CMPCC CMP AND CBC TO DR. YIP Performed By: #### L 500.4050 ####[facility] [address] [place], [address] ALT [Catalytic activity/Vol] 19 U/L Normal <=34 [facility] Comment on above: Order Comment: Order Date: 01/07/25Order Info: [id number] - CMPCC CMP AND CBC TO DR. YIP Performed By: #### L 500.4050 ####[facility] [address] [place], [address] AST [Catalytic activity/Vol] 20 U/L Normal <=31 [facility] Comment on above: Order Comment: Order Date: 01/07/25Order Info: 0786-1 - CMPCC CMP AND CBC TO DR. YIP Performed By: #### L 500.4050 ####[facility] [address] [place], [address] Bilirubin [Mass/Vol] 0.29 mg/dL Normal 0.00-1.30 [facility] Comment on above: Order Comment: Order Date: 01/07/25Order Info: 0786-1 - CMPCC CMP AND CBC TO DR. YIP Performed By: #### L 500.4050 ####[facility] [address] [place], [address] BUN/CRE 25.0 RATIO High 10-20 [facility] Comment on above: Order Comment: Order Date: 01/07/25Order Info: 0786-1 - CMPCC CMP AND CBC TO DR. YIP Performed By: #### L 500.4050 ####[facility] [address] [place], [address] Calcium [Mass/Vol] 9.3 mg/dL Normal 7.6-11.0 [facility] Comment on above: Order Comment: Order Date: 01/07/25Order Info: 0786-1 - CMPCC CMP AND CBC TO DR. YIP Performed By: #### L 500.4050 ####[facility] [address] [place], [address] Chloride [Moles/Vol] 98 mmol/L Normal 98-108 [facility] Comment on above: Order Comment: Order Date: 01/07/25Order Info: 0786-1 - CMPCC CMP AND CBC TO DR. YIP Performed By: #### L 500.4050 ####[facility] [address] [place], [address] CO2 [Moles/Vol] 26.0 mmol/L Normal 21.0-32.0 [facility] Comment on above: Order Comment: Order Date: 01/07/25Order Info: 0786-1 - CMPCC CMP AND CBC TO DR. YIP Performed By: #### L 500.4050 ####[facility] [address] [place], [address] Creatinine [Mass/Vol] 0.79 mg/dL Normal 0.70-1.20 [facility] Comment on above: Order Comment: Order Date: 01/07/25Order Info: 0786-1 - CMPCC CMP AND CBC TO DR. YIP Performed By: #### L 500.4050 ####[facility] [address] [place], [address] GAP 14 Normal 5-15 [facility] Comment on above: Order Comment: Order Date: 01/07/25Order Info: 0786-1 - CMPCC CMP AND CBC TO DR. YIP Performed By: #### L 500.4050 ####[facility] [address] [place], [address] GFR/1.73 sq M.predicted among non-blacks MDRD (S/P/Bld) [Vol rate/Area] 81 mL/min/{1.73_m2} Normal >60 [facility] Comment on above: Order Comment: Order Date: 01/07/25Order Info: 0786-1 - CMPCC CMP AND CBC TO DR. YIP Result Comment: mL/m in/1.73m2 CKD-EPI Creatinine Equation (2020) Performed By: #### L 500.4050 ####[facility] [address] [place], [address] Globulin (S) [Mass/Vol] 2.9 g/dL Normal 2.2-4.2 [facility] Comment on above: Order Comment: Order Date: 01/07/25Order Info: 0786-1 - CMPCC CMP AND CBC TO DR. YIP Performed By: #### L 500.4050 ####[facility] [address] [place], [address] Glucose [Mass/Vol] 135 mg/dL High 70-99 [facility] Comment on above: Order Comment: Order Date: 01/07/25Order Info: 0786-1 - CMPCC CMP AND CBC TO DR. YIP Performed By: #### L 500.4050 ####[facility] [address] [place], [address] Potassium [Moles/Vol] 3.8 mmol/L Normal 3.3-5.1 [facility] Comment on above: Order Comment: Order Date: 01/07/25Order Info: 0786-1 - CMPCC CMP AND CBC TO DR. YIP Performed By: #### L 500.4050 ####[facility] [address] [place], [place], [address] Sodium [Moles/Vol] 138 mmol/L Normal 133-145 [facility] Comment on above: Order Comment: Order Date: 01/07/25Order Info: 0786-1 - CMPCC CMP AND CBC TO DR. YIP Performed By: #### L 500.4050 ####[facility] [address] [place], [place], [address] T PROT 7.1 g/dL Normal 5.9-8.4 [facility] Comment on above: Order Comment: Order Date: 01/07/25Order Info: 0786-1 - CMPCC CMP AND CBC TO DR. YIP Performed By: #### L 500.4050 ####[facility] [address] [place], [place], [address] Urea nitrogen [Mass/Vol] 20 mg/dL High 4-19 [facility] Comment on above: Order Comment: Order Date: 01/07/25Order Info: 0786-1 - CMPCC CMP AND CBC TO DR. YIP Performed By: #### L 500.4050 ####[facility] [address] [place], [place], [address] Eosinophil percentageOrdered By: Indira Valdez on 01-07-2025 Eosinophils/100 WBC (Bld) 1.6 % 0-5 [facility] Erythrocyte distribution wid th ratioOrdered By: Indira Valdez on 01-07-2025 Erythrocyte distribution width (RBC) [Ratio] 14.6 % 11.6-14.6 [facility] Erythrocyte distribution wid th standard deviationOrdered By: Indira Valdez on 01-07-2025 Erythrocyte distribution width (RBC) [Ratio] 49.4 fl High 35.1-43.9 [facility] Glomerular filtration rate ( GFR) estimation/1.73 sq m using serum, plasma, or whole bOrdered By: Indira Valdez on 01-07-2025 GFR/1.73 sq M.predicted among non-blacks MDRD (S/P/Bld) [Vol rate/Area] 81 mL/min/{1.73_m2} >60 [facility] Comment on above: mL/min/1.73m2 CKD-EP I Creatinine Equation (2020) Hematocrit Auto (Bld) [Volum e fraction]Ordered By: [facility] 01-07-2025 Hematocrit (Bld) [Volume fraction] 36.1 % Low 37-47 [facility] Hemoglobin measurementOrdere d By: [facility] 01-07-2025 Hemoglobin (Bld) [Mass/Vol] 11.9 g/dL Low 12.0-15. 0 [facility] Immature granulocytes/100 WB C Auto (Bld)Ordered By: [facility] 01-07-2025 Immature granulocytes/100 WBC (Bld) 0.700 % 0.0-0.9 [facility] Comment on above: IG% - Immature Granu locytes (promyelocytes, myelocytes and metamyelocytes) > 1% indicates that a LEFT SHIFT is Present. Laboratory - Chemistry and C hemistry - challengeOrdered By: [facility] 01-07-2025 AST [Catalytic activity/Vol] 20 U/L <32 [facility] MCV (mean corpuscular volume ) determinationOrdered By: [facility] 01-07-2025 MCV (RBC) [Entitic vol] 93.3 fL 81-99 W [facility] Mean corpuscular hemoglobin (MCH) determinationOrdered By: [facility] 01-07-2025 MCH (RBC) [Entitic mass] 30.7 pg 27.0-32.0 [facility] Mean corpuscular hemoglobin concentration (MCHC) determinationOrdered By: [facility] 01-07-2025 MCHC (RBC) [Mass/Vol] 33.0 g/dL 32-36 [facility] Mean platelet volume determi nationOrdered By: [facility] 01-07-2025 Platelet mean volume (Bld) [Entitic vol] 10.2 fL 6.2-12.0 [facility] Monocyte percentageOrdered B y: [facility] 01-07-2025 Monocytes/100 WBC (Bld) 5.6 % 0-10 [facility] Neutrophil percentageOrdered By: Indira [facility] 01-07-2025 Neutrophils/100 WBC (Bld) 60.5 % 47-70 [facility] Nucleated red blood cell per centageOrdered By: Indira efra on 01-07-2025 Nucleated RBC/100 WBC (Bld) [Ratio] 0 % 0-5 [facility] Platelet countOrdered By: Luz gross orr on 01-07-2025 Platelets (Bld) [#/Vol] 345 10*3/uL 150-450 [facility] Potassium measurement (mass/ volume)Ordered By: Indira [facility] 01-07-2025 Potassium (Unsp spec) [Mass/Vol] 3.8 mmol/L 3.3-5.1 [facility] RBC Auto (Bld) [#/Vol]Ordere d By: Indira Elainapavel 01-07-2025 RBC (Bld) [#/Vol] 3.87 10*6/uL Low 4.2-5.4 [facility] Serum creatinine measurement (mass/volume)Ordered By: Indira [facility] 01-07-2025 Creatinine [Mass/Vol] 0.79 mg/dL 0.70-1.20 [facility] Serum globulin measurementOr dered By: Indira Lillianaefra 01-07-2025 Globulin (S) [Mass/Vol] 2.9 g/dL 2.2-4.2 [facility] Serum glucose measurement (m ass/volume)Ordered By: Indira [facility] 01-07-2025 Glucose [Mass/Vol] 135 mg/dL High 70-99 [facility] Serum or plasma alanine reyes otransferase (ALT) measurementOrdered By: Indira [facility] 01-07-2025 ALT [Catalytic activity/Vol] 19 U/L <35 [facility] Serum or plasma albumin jatin urement (mass/volume)Ordered By: Indira Elainaefra 01-07-2025 Albumin [Mass/Vol] 4.2 g/dL 3.4-4.8 [facility] Serum or plasma albumin/glob ulin mass ratioOrdered By: Indira Delaneyefra 01-07-2025 Albumin/Globulin [Mass ratio] 1.4 {ratio} 0.9-2.4 [facility] Serum or plasma alkaline lana sphatase measurementOrdered By: [facility]01-07-2025 ALP [Catalytic activity/Vol] 61 U/L 35-104 [facility] Serum or plasma calcium jatin urement (mass/volume)Ordered By: Indira [facility]01-07-2025 Calcium [Mass/Vol] 9.3 mg/dL 7.6-11.0 [facility] Serum or plasma urea nitroge n measurement (mass/volume)Ordered By: Indira [facility]01-07-2025 Urea nitrogen [Mass/Vol] 20 mg/dL High 4-19 [facility] Sodium levelOrdered By: Jonelle wang 01-07-2025 Sodium [Moles/Vol] 138 mmol/L 133-145 [facility] Total proteinOrdered By: Amilcar melchor 01-07-2025 Protein [Mass/Vol] 7.1 g/dL 5.9-8.4 [facility] White blood cell (WBC) count Ordered By: 01-07-2025 WBC (Bld) [#/Vol] 8.4 10*3/uL 4.4-11.0 [facility] CNOVon 12-27-2024 CNOV Office Visit (UCWSTR) ART BLUE ([id number]) 1955 F Date Time Provider Department 12/27/24 10:00 AM LEONARDO DHILLON [facility] During your visit today, we recorded the following information about you: Temperature Pulse Respiration Blood pressure 97.1 degrees 86/minute 21/minute 110/58 Weight 106.8 kg Leonardo Dhillon APRN.CNP 12/27/2024 12:59 PM Signed This note was created using NoteWriter. Subjective Art Blue is a 69 year [...] ANKLE GENERAL 3V AP/LAT/OBL LEFT Leonardo Dhillon APRN.[employer] Allergies As of Date: 12/27/2024 Noted Allergy Reaction BACTRIM (SULFAMETHOXAZOLE-TR IMETH*09/13/2018 8 - GI Upset LEVOFLOXACIN 05/30/2021 8 - GI Upset 11 - Vomiting LIPITOR (ATORVASTATIN CALCIUM) 03/18/2015 17 - Myalgia Date Reviewed: 12/27/2024 Reviewed by: Leonardo Dhillon APRN.[employer] - Fully Assessed Reason for Visit: Minor Injuries (Sprains, Strains, Minor Joint Pain) [4230] Cmt: Left ankle pain x 5 months, fell 2 days ago and now pain is worse Primary Visit Diagnosis:Acute left ankle pain [M25.572] Order(s):XR ANKLE GENERAL 3V AP/LAT/OBL LEFT [3735782] Order #: [id number] FUTURE Prescriptions as of 12/27/2024 - hydrOXYchloroQUINE [...] 05/13/2014 W (more content not included)... Normal [facility] XR ANKLE 3V AP/LAT/OBL LTon 12-27-2024 XR [...] IMPRESSION: No acute bony or joint space accounting consultant: [facility] Transcribe Date/Time: Dec 27 2024 12:42P Dictated by : GURWINDER MCKEE MD This examination was interpreted and the report reviewed and electronically signed by: GURWINDER MCKEE MD on Dec 27 2024 12:42PM EST [id number] Normal [facility] XR Ankle - left AP and Later al and obliqueon 12-27-2024 IMPRESSION: No acute bony or joint space accounting consultant: [facility] Transcribe Date/Time: Dec 27 2024 12:42P [...] fracture. Calcaneal spurring. DIVISION OF RADIOLOGY Provider, [facility] - 12/27/2024 * * *Final Report* * [...] IMPRESSION: No acute bony or joint space accounting consultant: [facility] Transcribe Date/Time: Dec 27 2024 12:42P Dictated by : GURWINDER MCKEE MD This examination was interpreted and the report reviewed and electronically signed by: GURWINDER MCKEE MD on Dec 27 2024 12:42PM EST [facility] Study observation (narrative) [facility] XR Ankle - left AP and Later al and obliqueOrdered By: [facility]cf Provider on 12-27-2024 [facility] Inital Evaluation (1) - PTon 12-16-2024 Inital Evaluation (1) - PT Normal [facility] Office Visit Reporton 2024 Office Visit Report Normal [facility] HIP, UNI W/ Pelvis 2-3 Views on 11-21-2024 HIP, UNI W/ Pelvis 2-3 Views Normal [facility] Orthopedic Visit Reporton Orthopedic Visit Report Normal W [facility] International normalized rat io (INR) calculationOrdered By: Candida Diaz on 2024 INR Coag (Bld) [Relative time] 1.1 {INR} [facility] Prothrombin Time w/INRon INR Coag (PPP) [Relative time] 1.1 {INR} Normal [facility] Comment on above: Performed By: #### L 445.2561 ####[facility] [address] [place], [address] PT Coag (PPP) [Time] 13.9 s Normal 11.7-14.9 [facility] Comment on above: Performed By: #### L 300.7864 ####[facility] [address] [place], [address] Prothrombin timeOrdered By: Candida Diaz on 2024 PT Coag (PPP) [Time] 13.9 s 11.7-14.9 [facility] L/S Spine Min 4 Viewson 10-21 L/S Spine Min 4 Views Normal [facility] Orthopedic Visit Reporton Orthopedic Visit Report Normal W [facility] Office Visit Reporton 2024 Office Visit Report Normal [facility] Absolute lymphocyte countOrd ered By: Doris Yip on 10-23-2024 Lymphocytes Auto (Unsp spec) [#/Vol] 2.17 10*3/uL 0.83-4.51 [facility] Absolute neutrophil countOrd ered By: Doris Yip on 10-23-2024 Neutrophils (Bld) [#/Vol] 8.0 10*3/uL High 2.0-7.7 [facility] Anion gap in Serum or Plasma Ordered By: Doris Yip on 10-23-2024 Anion gap [Moles/Vol] 15 mmol/L 5-15 [facility] Automated lymphocyte count a s percentage of total leukocytesOrdered By: Doris Yip on 10-23-2024 Lymphocytes/100 WBC Auto (Unsp spec) 19.5 % 19-41 [facility] BUN/creatinine ratioOrdered By: Doris Yip on 10-23-2024 Urea nitrogen/Creatinine [Mass ratio] 21.9 mg/mg High 10-20 [facility] Basophil percentageOrdered B y: Doris Yip on 10-23-2024 Basophils/100 WBC (Bld) 0.4 % 0-1 [facility] Bilirubin, totalOrdered By: Doris Yip on 10-23-2024 Bilirubin [Mass/Vol] 0.27 mg/dL 0.00-1.30 [facility] CBC W/Diff, Automatedon Absolute Lymph 2.17 X10 3/uL Normal 0.83-4.51 [facility] Comment on above: Performed By: #### L 100.0100, L500.4050 ####[facility] [address] [place], [address] Absolute Neut 8.0 X10 3/uL High 2.0-7.7 [facility] Comment on above: Performed By: #### L 100.0100, L500.4050 ####[facility] [address] [place], [address] Basophils/100 WBC (Bld) 0.4 % Normal 0-1 [facility] Comment on above: Performed By: #### L 100.0100, L500.4050 ####[facility] [address] [place], [address] Eosinophils/100 WBC (Bld) 1.2 % Normal 0-5 [facility] Comment on above: Performed By: #### L 100.0100, L500.4050 ####[facility] [address] [place], [address] Erythrocyte distribution width (RBC) [Ratio] 14.7 % High 11.6-14.6 [facility] Comment on above: Performed By: #### L 100.0100, L500.4050 ####[facility] [address] [place], [address] Hematocrit (Bld) [Volume fraction] 38.1 % Normal 37-47 [facility] Comment on above: Performed By: #### L 100.0100, L500.4050 ####[facility] [address] [place], [address] Hemoglobin (Bld) [Mass/Vol] 12.6 g/dL Normal 12.0-15. 0 [facility] Comment on above: Performed By: #### L 100.0100, L500.4050 ####[facility] [address] [place], [address] IG% 0.900 Normal 0.0-0.9 [facility] Comment on above: Result Comment: IG% - Immature Granulocytes (promyelocytes, myelocytes andmetamyelocytes) > 1% indicates that a LEFT SHIFT is Present. Performed By: #### L 100.0100, L500.4050 ####[facility] [address] [place], [address] Lymphocytes/100 WBC (Bld) 19.5 % Normal 19-41 [facility] Comment on above: Performed By: #### L 100.0100, L500.4050 ####[facility] [address] [place], [address] MCH (RBC) [Entitic mass] 31.0 pg Normal 27.0-32.0 [facility] Comment on above: Performed By: #### L 100.0100, L500.4050 ####[facility] [address] [place], [address] MCHC (RBC) [Mass/Vol] 33.1 g/dL Normal 32-36 [facility] Comment on above: Performed By: #### L 100.0100, L500.4050 ####[facility] [address] [place], [address] MCV (RBC) [Entitic vol] 93.8 fL Normal 81-99 [facility] Comment on above: Performed By: #### L 100.0100, L500.4050 ####[facility] [address] [place], [address] Monocytes/100 WBC (Bld) 6.2 % Normal 0-10 [facility] Comment on above: Performed By: #### L 100.0100, L500.4050 ####[facility] [address] [place], [address] Neutrophils/100 WBC (Bld) 71.8 % High 47-70 [facility] Comment on above: Performed By: #### L 100.0100, L500.4050 ####[facility] [address] [place], [address] Nucleated RBC (Bld) [#/Vol] 0 10*3/uL Normal 0-5 [facility] Comment on above: Performed By: #### L 100.0100, L500.4050 ####[facility] [address] [place], [address] Platelet mean volume (Bld) [Entitic vol] 10.4 fL Normal 6.2-12.0 [facility] Comment on above: Performed By: #### L 100.0100, L500.4050 ####[facility] [address] [place], [address] Platelets (Bld) [#/Vol] 362 10*3/uL Normal 150-450 [facility] Comment on above: Performed By: #### L 100.0100, L500.4050 ####[facility] [address] [place], [address] RBC (Bld) [#/Vol] 4.06 10*6/uL Low 4.2-5.4 [facility] Comment on above: Performed By: #### L 100.0100, L500.4050 ####[facility] [address] [place], [address] RDW SD 50.0 fl High 35.1-43.9 [facility] Comment on above: Performed By: #### L 100.0100, L500.4050 ####[facility] [address] [place], [address] WBC (Bld) [#/Vol] 11.2 10*3/uL High 4.4-11.0 [facility] Comment on above: Performed By: #### L 100.0100, L500.4050 ####[facility] [address] [place], [address] Carbon dioxide, total [Moles /volume] in Central venous bloodOrdered By: Doris Yip on 10-23-2024 CO2 [Moles/Vol] 23.9 mmol/L 21.0-32.0 [facility] Chloride assayOrdered By: Ariana Yip on 10-23-2024 Chloride [Moles/Vol] 100 mmol/L 98-108 [facility] Comprehensive Metabolic Prof ilon 10-23-2024 Albumin [Mass/Vol] 4.3 g/dL Normal 3.4-4.8 [facility] Comment on above: Performed By: #### L 100.0100, L500.4050 ####[facility] [address] [place], [address] Albumin/Globulin [Mass ratio] 1.4 {ratio} Normal 0.9-2.4 [facility] Comment on above: Performed By: #### L 100.0100, L500.4050 ####[facility] [address] [place], [address] ALK PHOS 57 U/L Normal 35-104 [facility] Comment on above: Performed By: #### L 100.0100, L500.4050 ####[facility] [address] [place], [address] ALT [Catalytic activity/Vol] 20 U/L Normal <=34 [facility] Comment on above: Performed By: #### L 100.0100, L500.4050 ####[facility] [address] [place], [address] AST [Catalytic activity/Vol] 21 U/L Normal <=31 [facility] Comment on above: Performed By: #### L 100.0100, L500.4050 ####[facility] [address] [place], [address] Bilirubin [Mass/Vol] 0.27 mg/dL Normal 0.00-1.30 [facility] Comment on above: Performed By: #### L 100.0100, L500.4050 ####[facility] [address] [place], [address] BUN/CRE 21.9 RATIO High 10-20 [facility] Comment on above: Performed By: #### L 100.0100, L500.4050 ####[facility] [address] [place], [address] Calcium [Mass/Vol] 9.5 mg/dL Normal 7.6-11.0 [facility] Comment on above: Performed By: #### L 100.0100, L500.4050 ####[facility] [address] [place], [address] Chloride [Moles/Vol] 100 mmol/L Normal 98-108 [facility] Comment on above: Performed By: #### L 100.0100, L500.4050 ####[facility] [address] [place], [address] CO2 [Moles/Vol] 23.9 mmol/L Normal 21.0-32.0 [facility] Comment on above: Performed By: #### L 100.0100, L500.4050 ####[facility] [address] [place], [address] Creatinine [Mass/Vol] 0.84 mg/dL Normal 0.70-1.20 [facility] Comment on above: Performed By: #### L 100.0100, L500.4050 ####[facility] [address] [place], [address] GAP 15 Normal 5-15 [facility] Comment on above: Performed By: #### L 100.0100, L500.4050 ####[facility] [address] [place], [address] GFR/1.73 sq M.predicted among non-blacks MDRD (S/P/Bld) [Vol rate/Area] 76 mL/min/{1.73_m2} Normal >60 [facility] Comment on above: Result Comment: mL/m in/1.73m2 CKD-EPI Creatinine Equation (2020) Performed By: #### L 100.0100, L500.4050 ####[facility] [address] [place], [address] Globulin (S) [Mass/Vol] 3.2 g/dL Normal 2.2-4.2 [facility] Comment on above: Performed By: #### L 100.0100, L500.4050 ####[facility] [address] [place], [address] Glucose [Mass/Vol] 124 mg/dL High 70-99 [facility] Comment on above: Performed By: #### L 100.0100, L500.4050 ####[facility] [address] [place], [address] Potassium [Moles/Vol] 4.2 mmol/L Normal 3.3-5.1 [facility] Comment on above: Performed By: #### L 100.0100, L500.4050 ####[facility] [address] [place], [address] Sodium [Moles/Vol] 139 mmol/L Normal 133-145 [facility] Comment on above: Performed By: #### L 100.0100, L500.4050 ####[facility] [address] [place], [address] T PROT 7.4 g/dL Normal 5.9-8.4 [facility] Comment on above: Performed By: #### L 100.0100, L500.4050 ####[facility] [address] [place], [place], [address] Urea nitrogen [Mass/Vol] 18 mg/dL Normal 4-19 [facility] Comment on above: Performed By: #### L 100.0100, L500.4050 ####[facility] [address] [place], [address] Eosinophil percentageOrdered By: Doris Yip on 10-23-2024 Eosinophils/100 WBC (Bld) 1.2 % 0-5 [facility] Erythrocyte distribution wid th (RBC) [Ratio]Ordered By: Doris Yip on 10-23-2024 Erythrocyte distribution width (RBC) [Entitic vol] 50.0 fL High 35.1-43.9 [facility] Erythrocyte distribution wid th ratioOrdered By: [facility] Theodora on 10-23-2024 Erythrocyte distribution width (RBC) [Ratio] 14.7 % High 11.6-14.6 [facility] Erythrocyte distribution wid th standard deviationOrdered By: [facility] Theodora on 10-23-2024 Erythrocyte distribution width (RBC) [Ratio] 50.0 fl High 35.1-43.9 [facility] GFR/1.73 sq M.predicted [place] g non-blacks MDRD (S/P/Bld) [Vol rate/Area]Ordered By: Doris Yip on 10-23-2024 Estimated GFR (MDRD) Non-Af Amer 76 >60 [facility] Comment on above: mL/min/1.73m2 CKD-EP I Creatinine Equation (2020) Glomerular filtration rate ( GFR) estimation/1.73 sq m using serum, plasma, or whole bOrdered By: Doris Yip on 10-23-2024 GFR/1.73 sq M.predicted among non-blacks MDRD (S/P/Bld) [Vol rate/Area] 76 mL/min/{1.73_m2} >60 [facility] Comment on above: mL/min/1.73m2 CKD-EP I Creatinine Equation (2020) Hematocrit Auto (Bld) [Volum e fraction]Ordered By: Doris Yip on 10-23-2024 Hematocrit (Bld) [Volume fraction] 38.1 % 37-47 [facility] Hemoglobin measurementOrdere d By: Doris Yip on 10-23-2024 Hemoglobin (Bld) [Mass/Vol] 12.6 g/dL 12.0-15. 0 [facility] Immature granulocytes/100 WB C Auto (Bld)Ordered By: Doris Yip on 10-23-2024 Immature granulocytes/100 WBC (Bld) 0.900 % 0.0-0.9 [facility] Comment on above: IG% - Immature Granu locytes (promyelocytes, myelocytes and metamyelocytes) > 1% indicates that a LEFT SHIFT is Present. Laboratory - Chemistry and C hemistry - challengeOrdered By: Doris Yip on 10-23-2024 AST [Catalytic activity/Vol] 21 U/L <32 [facility] Lymphocytes Auto (Unsp spec) [#/Vol]Ordered By: Doris Yip on 10-23-2024 Lymphocytes (Bld) [#/Vol] 2.17 10*3/uL 0.83-4.5 1 [facility] Lymphocytes/100 WBC Auto (Un sp spec)Ordered By: Doris Yip on 10-23-2024 Lymphocytes/100 WBC (Bld) 19.5 % 19-41 [facility] MCV (mean corpuscular volume ) determinationOrdered By: Doris Yip on 10-23-2024 MCV (RBC) [Entitic vol] 93.8 fL 81-99 [facility] Mean corpuscular hemoglobin (MCH) determinationOrdered By: Doris Yip on 10-23-2024 MCH (RBC) [Entitic mass] 31.0 pg 27.0-32.0 [facility] Mean corpuscular hemoglobin concentration (MCHC) determinationOrdered By: Doris Yip on 10-23-2024 MCHC (RBC) [Mass/Vol] 33.1 g/dL 32-36 [facility] Mean platelet volume determi nationOrdered By: Doris Yip on 10-23-2024 Platelet mean volume (Bld) [Entitic vol] 10.4 fL 6.2-12.0 [facility] Monocyte percentageOrdered B y: Doris Yip on 10-23-2024 Monocytes/100 WBC (Bld) 6.2 % 0-10 [facility] Neutrophil percentageOrdered By: Doris Yip on 10-23-2024 Neutrophils/100 WBC (Bld) 71.8 % High 47-70 [facility] Nucleated red blood cell per centageOrdered By: Doris Yip on 10-23-2024 Nucleated RBC/100 WBC (Bld) [Ratio] 0 % 0-5 [facility] Platelet countOrdered By: Ariana Yip on 10-23-2024 Platelets (Bld) [#/Vol] 362 10*3/uL 150-450 [facility] Potassium (Unsp spec) [Mass/ Vol]Ordered By: Doris Yip on 10-23-2024 Potassium [Moles/Vol] 4.2 mmol/L 3.3-5.1 [facility] Potassium measurement (mass/ volume)Ordered By: Doris Yip on 10-23-2024 Potassium (Unsp spec) [Mass/Vol] 4.2 mmol/L 3.3-5.1 [facility] RBC Auto (Bld) [#/Vol]Ordere d By: Doris Yip on 10-23-2024 RBC (Bld) [#/Vol] 4.06 10*6/uL Low 4.2-5.4 [facility] Serum creatinine measurement (mass/volume)Ordered By: Doris Yip on 10-23-2024 Creatinine [Mass/Vol] 0.84 mg/dL 0.70-1.20 [facility] Serum globulin measurementOr dered By: Doris Yip on 10-23-2024 Globulin (S) [Mass/Vol] 3.2 g/dL 2.2-4.2 [facility] Serum glucose measurement (m ass/volume)Ordered By: Doris Yip on 10-23-2024 Glucose [Mass/Vol] 124 mg/dL High 70-99 [facility] Serum or plasma alanine reyes otransferase (ALT) measurementOrdered By: Doris Yip on 10-23-2024 ALT [Catalytic activity/Vol] 20 U/L <35 [facility] Serum or plasma albumin jatin urement (mass/volume)Ordered By: Doris Yip on 10-23-2024 Albumin [Mass/Vol] 4.3 g/dL 3.4-4.8 [facility] Serum or plasma albumin/glob ulin mass ratioOrdered By: Doris Yip on 10-23-2024 Albumin/Globulin [Mass ratio] 1.4 {ratio} 0.9-2.4 [facility] Serum or plasma alkaline lana sphatase measurementOrdered By: Doris Yip on 10-23-2024 ALP [Catalytic activity/Vol] 57 U/L 35-104 [facility] Serum or plasma calcium jatin urement (mass/volume)Ordered By: Doris Yip on 10-23-2024 Calcium [Mass/Vol] 9.5 mg/dL 7.6-11.0 [facility] Serum or plasma urea nitroge n measurement (mass/volume)Ordered By: Doris Yip on 10-23-2024 Urea nitrogen [Mass/Vol] 18 mg/dL 4-19 [facility] Sodium levelOrdered By: Katherine Yip on 10-23-2024 Sodium [Moles/Vol] 139 mmol/L 133-145 [facility] Total proteinOrdered By: Liyah Yip on 10-23-2024 Protein [Mass/Vol] 7.4 g/dL 5.9-8.4 [facility] White blood cell (WBC) count Ordered By: Doris Yip on 10-23-2024 WBC (Bld) [#/Vol] 11.2 10*3/uL High 4.4-11.0 [facility] Oncology Visit Reporton 09-20 Oncology Visit Report Normal [facility] Office Visit Reporton 2024 Office Visit Report Normal [facility] OVIDIO + Protein Elect, Serumon 10-01-2024 Albumin [Mass/Vol] 3.3 g/dL Normal 2.9-4.4 [facility] Comment on above: Order Comment: N Performed By: #### L 501.9520, L500.4050, L504.2610, L3130.0010, L3100.3425, L100.0100, L506.0400 ####[facility] [address] [place], [address] Albumin/Globulin [Mass ratio] 1.0 {ratio} Normal 0.7-1.7 [facility] Comment on above: Order Comment: N Performed By: #### L 501.9520, L500.4050, L504.2610, L3130.0010, L3100.3425, L100.0100, L506.0400 ####[facility] [address] [place], [address] LZICA-4-XHLZ 0.3 g/dL Normal 0.0-0.4 [facility] Comment on above: Order Comment: N Performed By: #### L 501.9520, L500.4050, L504.2610, L3130.0010, L3100.3425, L100.0100, L506.0400 ####[facility] [address] [place], [address] RCIIE-8-XDOF 1.1 g/dL High 0.4-1.0 [facility] Comment on above: Order Comment: N Performed By: #### L 501.9520, L500.4050, L504.2610, L3130.0010, L3100.3425, L100.0100, L506.0400 ####[facility] [address] [place], [address] BETA GLOBULIN 1.2 g/dL Normal 0.7-1.3 [facility] Comment on above: Order Comment: N Performed By: #### L 501.9520, L500.4050, L504.2610, L3130.0010, L3100.3425, L100.0100, L506.0400 ####[facility] [address] [place], [address] GAMMA GLOBULIN 1.1 g/dL Normal 0.4-1.8 [facility] Comment on above: Order Comment: N Performed By: #### L 501.9520, L500.4050, L504.2610, L3130.0010, L3100.3425, L100.0100, L506.0400 ####[facility] [address] [place], [address] Globulin (S) [Mass/Vol] 3.6 g/dL Normal 2.2-3.9 [facility] Comment on above: Order Comment: N Performed By: #### L 501.9520, L500.4050, L504.2610, L3130.0010, L3100.3425, L100.0100, L506.0400 ####[facility] [address] [place], [address] OVIDIO RESULT,S Comment: Normal . [facility] Comment on above: Order Comment: N Result Comment: Pres ence of monoclonal protein is unclear at this time. Suggestrepeat in 3 to 6 months if clinically indicated. Performed By: #### L 501.9520, L500.4050, L504.2610, L3130.0010, L3100.3425, L100.0100, L506.0400 ####[facility] [address] [place], [address] IMMUNOGLOB A QN 158 mg/dL Normal 87-352 [facility] Comment on above: Order Comment: N Performed By: #### L 501.9520, L500.4050, L504.2610, L3130.0010, L3100.3425, L100.0100, L506.0400 ####[facility] [address] [place], [address] IMMUNOGLOB G QN 1030 mg/dL Normal 586-1602 [facility] Comment on above: Order Comment: N Performed By: #### L 501.9520, L500.4050, L504.2610, L3130.0010, L3100.3425, L100.0100, L506.0400 ####[facility] [address] [place], [address] IMMUNOGLOB M QN 95 mg/dL Normal 26-217 [facility] Comment on above: Order Comment: N Performed By: #### L 501.9520, L500.4050, L504.2610, L3130.0010, L3100.3425, L100.0100, L506.0400 ####[facility] [address] [place], [address] M-Thomas Comment: Normal Not Observed [facility] Comment on above: Order Comment: N Result Comment: SPE shows an asymmetrical gamma. Performed By: #### L 501.9520, L500.4050, L504.2610, L3130.0010, L3100.3425, L100.0100, L506.0400 ####[facility] [address] [place], [address] NOTE: Comment Normal . [facility] Comment on above: Order Comment: N Result Comment: Prot ein electrophoresis scan will follow via computer,mail, or chrome polisher delivery. Performed By: #### L 501.9520, L500.4050, L504.2610, L3130.0010, L3100.3425, L100.0100, L506.0400 ####[facility] [address] [place], [address] Protein [Mass/Vol] 6.9 g/dL Normal 6.0-8.5 [facility] Comment on above: Order Comment: N Performed By: #### L 501.9520, L500.4050, L504.2610, L3130.0010, L3100.3425, L100.0100, L506.0400 ####[facility] [address] [place], [address] Jardin De [place] Lambda Light Chainson 10-01-2024 FR KAPPA LT CHN 33.6 mg/L Abnormal 3.3-19.4 [facility] Comment on above: Performed By: #### L 501.9520, L500.4050, L504.2610, L3130.0010, L3100.3425, L100.0100, L506.0400 ####[facility] [address] [place], [place], [id number] FR LAMBDA LT CH 27.4 mg/L Abnormal 5.7-26.3 [facility] Comment on above: Performed By: #### L 501.9520, L500.4050, L504.2610, L3130.0010, L3100.3425, L100.0100, L506.0400 ####[facility] [address] [place], [place], [id number] KAPPA/LAMBDA % 1.23 Normal 0.26-1.65 [facility] Comment on above: Result Comment: Perf ormed at: - [facility] [address] Director: Herb Kincaid PhD, Phone: [phone] Performed By: #### L 501.9520, L500.4050, L504.2610, L3130.0010, L3100.3425, L100.0100, L506.0400 ####[facility] [address] [place], [place], [id number] Abdomen/Pelvis W IV Cont ONL Yon 09-29-2024 Abdomen/Pelvis W IV Cont ONLY Normal [facility] Absolute lymphocyte countOrd ered By: Jose Ramon Mckenzie on 09-29-2024 Lymphocytes Auto (Unsp spec) [#/Vol] 2.28 10*3/uL 0.83-4.51 [facility] Absolute neutrophil countOrd ered By: Jose Ramon Mckenzie on 09-29-2024 Neutrophils (Bld) [#/Vol] 6.2 10*3/uL 2.0-7.7 [facility] Addendum DocumentOrdered By: Jose Ramon Mckenzie on 09-29-2024 Serum Immunofixation Comments Comment . [facility] Comment on above: Protein electrophore sis scan will follow via computer,mail, or chrome polisher delivery. Albumin Elph [Mass/Vol]Order ed By: Jose Ramon Mckenzie on 09-29-2024 Albumin [Mass/Vol] 3.3 g/dL 2.9-4.4 [facility] Alpha 1 globulin Elph [Mass/ Vol]Ordered By: Jose Ramon Mckenzie on 09-29-2024 Hrhso-8-Onmjuwjfi (OVIDIO) 0.3 g/dL 0.0-0.4 [facility] Kerkk-3-Yrmojzkmb (OVIDIO) 1.1 g/dL High 0.4-1.0 [facility] Anion gap in Serum or Plasma Ordered By: Jose Ramon Mckenzie on 09-29-2024 Anion gap [Moles/Vol] 13 mmol/L 5- [facility] Automated lymphocyte count a s percentage of total leukocytesOrdered By: Jose Ramon Mckenzie on 09-29-2024 Lymphocytes/100 WBC Auto (Unsp spec) 25.0 % - [facility] BUN/creatinine ratioOrdered By: Jose Ramon Mckenzie on 09-29-2024 Urea nitrogen/Creatinine [Mass ratio] 16.0 mg/mg 10- [facility] Basophil percentageOrdered B y: Jose Ramon Mckenzie on 09-29-2024 Basophils/100 WBC (Bld) 0.5 % 0- W [facility] Beta globulin Elph [Mass/Vol ]Ordered By: Jose Ramon Mckenzie on 09-29-2024 Beta-Globulins (OVIDIO) 1.2 g/dL 0.7-1.3 [facility] Bilirubin, totalOrdered By: Jose Ramon Mckenzie on 09-29-2024 Bilirubin [Mass/Vol] 0.32 mg/dL 0.00-1.30 [facility] CBC W/Diff, Automatedon 09-20 Absolute Lymph 2.28 X10 3/uL Normal 0.83-4.51 [facility] Comment on above: Performed By: #### L 501.9520, L500.4050, L504.2610, L3130.0010, L3100.3425, L100.0100, L506.0400 ####[facility] [address] [place], [address] Absolute Neut 6.2 X10 3/uL Normal 2.0-7.7 [facility] Comment on above: Performed By: #### L 501.9520, L500.4050, L504.2610, L3130.0010, L3100.3425, L100.0100, L506.0400 ####[facility] [address] [place], [address] Basophils/100 WBC (Bld) 0.5 % Normal 0-1 [facility] Comment on above: Performed By: #### L 501.9520, L500.4050, L504.2610, L3130.0010, L3100.3425, L100.0100, L506.0400 ####[facility] [address] [place], [address] Eosinophils/100 WBC (Bld) 1.4 % Normal 0-5 [facility] Comment on above: Performed By: #### L 501.9520, L500.4050, L504.2610, L3130.0010, L3100.3425, L100.0100, L506.0400 ####[facility] [address] [place], [address] Erythrocyte distribution width (RBC) [Ratio] 15.4 % High 11.6-14.6 [facility] Comment on above: Performed By: #### L 501.9520, L500.4050, L504.2610, L3130.0010, L3100.3425, L100.0100, L506.0400 ####[facility] [address] [place], [address] Hematocrit (Bld) [Volume fraction] 37.3 % Normal 37-47 [facility] Comment on above: Performed By: #### L 501.9520, L500.4050, L504.2610, L3130.0010, L3100.3425, L100.0100, L506.0400 ####[facility] [address] [place], [address] Hemoglobin (Bld) [Mass/Vol] 12.2 g/dL Normal 12.0-15. 0 [facility] Comment on above: Performed By: #### L 501.9520, L500.4050, L504.2610, L3130.0010, L3100.3425, L100.0100, L506.0400 ####[facility] [address] [place], [address] IG% 0.400 Normal 0.0-0.9 [facility] Comment on above: Result Comment: IG% - Immature Granulocytes (promyelocytes, myelocytes andmetamyelocytes) > 1% indicates that a LEFT SHIFT is Present. Performed By: #### L 501.9520, L500.4050, L504.2610, L3130.0010, L3100.3425, L100.0100, L506.0400 ####[facility] [address] [place], [address] Lymphocytes/100 WBC (Bld) 25.0 % Normal 19-41 [facility] Comment on above: Performed By: #### L 501.9520, L500.4050, L504.2610, L3130.0010, L3100.3425, L100.0100, L506.0400 ####[facility] [address] [place], [address] MCH (RBC) [Entitic mass] 31.0 pg Normal 27.0-32.0 [facility] Comment on above: Performed By: #### L 501.9520, L500.4050, L504.2610, L3130.0010, L3100.3425, L100.0100, L506.0400 ####[facility] [address] [place], [address] MCHC (RBC) [Mass/Vol] 32.7 g/dL Normal 32-36 [facility] Comment on above: Performed By: #### L 501.9520, L500.4050, L504.2610, L3130.0010, L3100.3425, L100.0100, L506.0400 ####[facility] [address] [place], [address] MCV (RBC) [Entitic vol] 94.7 fL Normal 81-99 [facility] Comment on above: Performed By: #### L 501.9520, L500.4050, L504.2610, L3130.0010, L3100.3425, L100.0100, L506.0400 ####[facility] [address] [place], [address] Monocytes/100 WBC (Bld) 4.5 % Normal 0-10 [facility] Comment on above: Performed By: #### L 501.9520, L500.4050, L504.2610, L3130.0010, L3100.3425, L100.0100, L506.0400 ####[facility] [address] [place], [address] Neutrophils/100 WBC (Bld) 68.2 % Normal 47-70 [facility] Comment on above: Performed By: #### L 501.9520, L500.4050, L504.2610, L3130.0010, L3100.3425, L100.0100, L506.0400 ####[facility] [address] [place], [address] Nucleated RBC (Bld) [#/Vol] 0 10*3/uL Normal 0-5 [facility] Comment on above: Performed By: #### L 501.9520, L500.4050, L504.2610, L3130.0010, L3100.3425, L100.0100, L506.0400 ####[facility] [address] [place], [address] Platelet mean volume (Bld) [Entitic vol] 9.4 fL Normal 6.2-12.0 [facility] Comment on above: Performed By: #### L 501.9520, L500.4050, L504.2610, L3130.0010, L3100.3425, L100.0100, L506.0400 ####[facility] [address] [place], [address] Platelets (Bld) [#/Vol] 335 10*3/uL Normal 150-450 [facility] Comment on above: Performed By: #### L 501.9520, L500.4050, L504.2610, L3130.0010, L3100.3425, L100.0100, L506.0400 ####[facility] [address] [place], [address] RBC (Bld) [#/Vol] 3.94 10*6/uL Low 4.2-5.4 [facility] Comment on above: Performed By: #### L 501.9520, L500.4050, L504.2610, L3130.0010, L3100.3425, L100.0100, L506.0400 ####[facility] [address] [place], [address] RDW SD 53.1 fl High 35.1-43.9 [facility] Comment on above: Performed By: #### L 501.9520, L500.4050, L504.2610, L3130.0010, L3100.3425, L100.0100, L506.0400 ####[facility] [address] [place], [address] WBC (Bld) [#/Vol] 9.1 10*3/uL Normal 4.4-11.0 [facility] Comment on above: Performed By: #### L 501.9520, L500.4050, L504.2610, L3130.0010, L3100.3425, L100.0100, L506.0400 ####[facility] [address] [place], [address] Carbon dioxide, total [Moles /volume] in Central venous bloodOrdered By: Jose Ramon Mckenzie on 09-29-2024 CO2 [Moles/Vol] 26.5 mmol/L 21.0-32.0 [facility] Chloride assayOrdered By: Lilly Mckenzie on 09-29-2024 Chloride [Moles/Vol] 100 mmol/L 98-108 [facility] Comprehensive Metabolic Prof ilon 09-29-2024 Albumin [Mass/Vol] 4.2 g/dL Normal 3.4-4.8 [facility] Comment on above: Performed By: #### L 501.9520, L500.4050, L504.2610, L3130.0010, L3100.3425, L100.0100, L506.0400 ####[facility] [address] [place], [address] Albumin/Globulin [Mass ratio] 1.4 {ratio} Normal 0.9-2.4 [facility] Comment on above: Performed By: #### L 501.9520, L500.4050, L504.2610, L3130.0010, L3100.3425, L100.0100, L506.0400 ####[facility] [address] [place], [address] ALK PHOS 65 U/L Normal 35-104 [facility] Comment on above: Performed By: #### L 501.9520, L500.4050, L504.2610, L3130.0010, L3100.3425, L100.0100, L506.0400 ####[facility] [address] [place], [address] ALT [Catalytic activity/Vol] 22 U/L Normal <=34 [facility] Comment on above: Performed By: #### L 501.9520, L500.4050, L504.2610, L3130.0010, L3100.3425, L100.0100, L506.0400 ####[facility] [address] [place], [address] AST [Catalytic activity/Vol] 22 U/L Normal <=31 [facility] Comment on above: Performed By: #### L 501.9520, L500.4050, L504.2610, L3130.0010, L3100.3425, L100.0100, L506.0400 ####[facility] [address] [place], [address] Bilirubin [Mass/Vol] 0.32 mg/dL Normal 0.00-1.30 [facility] Comment on above: Performed By: #### L 501.9520, L500.4050, L504.2610, L3130.0010, L3100.3425, L100.0100, L506.0400 ####[facility] [address] [place], [address] BUN/CRE 16.0 RATIO Normal 10-20 [facility] Comment on above: Performed By: #### L 501.9520, L500.4050, L504.2610, L3130.0010, L3100.3425, L100.0100, L506.0400 ####[facility] [address] [place], [address] Calcium [Mass/Vol] 9.5 mg/dL Normal 7.6-11.0 [facility] Comment on above: Performed By: #### L 501.9520, L500.4050, L504.2610, L3130.0010, L3100.3425, L100.0100, L506.0400 ####[facility] [address] [place], [address] Chloride [Moles/Vol] 100 mmol/L Normal 98-108 [facility] Comment on above: Performed By: #### L 501.9520, L500.4050, L504.2610, L3130.0010, L3100.3425, L100.0100, L506.0400 ####[facility] [address] [place], [address] CO2 [Moles/Vol] 26.5 mmol/L Normal 21.0-32.0 [facility] Comment on above: Performed By: #### L 501.9520, L500.4050, L504.2610, L3130.0010, L3100.3425, L100.0100, L506.0400 ####[facility] [address] [place], [address] Creatinine [Mass/Vol] 0.93 mg/dL Normal 0.70-1.20 [facility] Comment on above: Performed By: #### L 501.9520, L500.4050, L504.2610, L3130.0010, L3100.3425, L100.0100, L506.0400 ####[facility] [address] [place], [address] ECRCL 72.90 ml/min Normal 50-250 [facility] Comment on above: Performed By: #### L 501.9520, L500.4050, L504.2610, L3130.0010, L3100.3425, L100.0100, L506.0400 ####[facility] [address] [place], [address] GAP 13 Normal 5-15 [facility] Comment on above: Performed By: #### L 501.9520, L500.4050, L504.2610, L3130.0010, L3100.3425, L100.0100, L506.0400 ####[facility] [address] [place], [address] GFR/1.73 sq M.predicted among non-blacks MDRD (S/P/Bld) [Vol rate/Area] 68 mL/min/{1.73_m2} Normal >60 [facility] Comment on above: Result Comment: mL/m in/1.73m2 CKD-EPI Creatinine Equation (2020) Performed By: #### L 501.9520, L500.4050, L504.2610, L3130.0010, L3100.3425, L100.0100, L506.0400 ####[facility] [address] [place], [address] Globulin (S) [Mass/Vol] 3.0 g/dL Normal 2.2-4.2 [facility] Comment on above: Performed By: #### L 501.9520, L500.4050, L504.2610, L3130.0010, L3100.3425, L100.0100, L506.0400 ####[facility] [address] [place], [address] Glucose [Mass/Vol] 138 mg/dL High 70-99 [facility] Comment on above: Performed By: #### L 501.9520, L500.4050, L504.2610, L3130.0010, L3100.3425, L100.0100, L506.0400 ####[facility] [address] [place], [address] Potassium [Moles/Vol] 4.0 mmol/L Normal 3.3-5.1 [facility] Comment on above: Performed By: #### L 501.9520, L500.4050, L504.2610, L3130.0010, L3100.3425, L100.0100, L506.0400 ####[facility] [address] [place], [address] Sodium [Moles/Vol] 139 mmol/L Normal 133-145 [facility] Comment on above: Performed By: #### L [id number], L500.4050, L504.2610, L3130.0010, L3100.3425, L100.0100, L506.0400 ####[facility] [address] [place], [place], [id number] T PROT 7.2 g/dL Normal 5.9-8.4 [facility] Comment on above: Performed By: #### L [id number], [id number], L504.2610, L3130.0010, L3100.3425, L100.0100, L506.0400 ####[facility] [address] [place], [place], [id number] Urea nitrogen [Mass/Vol] 15 mg/dL Normal 4-19 [facility] Comment on above: Performed By: #### L [id number], L500.4050, L504.2610, L3130.0010, L3100.3425, L100.0100, L506.0400 ####[facility] [address] [place], [place], [id number] Eosinophil percentageOrdered By: Jose Ramon Mckenzie on 09-29-2024 Eosinophils/100 WBC (Bld) 1.4 % 0-5 [facility] Erythrocyte distribution wid th ratioOrdered By: Jose Ramon Mckenzie on 09-29-2024 Erythrocyte distribution width (RBC) [Ratio] 15.4 % High 11.6-14.6 [facility] Erythrocyte distribution wid th standard deviationOrdered By: Jose Ramon Mckenzie on 09-29-2024 Erythrocyte distribution width (RBC) [Entitic vol] 53.1 fL High 35.1-43.9 [facility] Erythrocyte distribution width (RBC) [Ratio] 53.1 fl High 35.1-43.9 [facility] Estimation of creatinine lillian aranceOrdered By: Jose Ramon Mckenzie on 09-29-2024 Estimated Creatinine Clearance Calc 72.90 ml/min 50-250 [facility] GFR/1.73 sq M.predicted [place] g non-blacks MDRD (S/P/Bld) [Vol rate/Area]Ordered By: Jose Ramon Mckenzie on 09-29-2024 Estimated GFR (MDRD) Non-Af Amer 68 >60 [facility] Comment on above: mL/min/1.73m2 CKD-EP I Creatinine Equation (2020) Gamma globulin Elph [Mass/Vo l]Ordered By: Jose Ramon Mckenzie on 09-29-2024 Gamma Globulins (OVIDIO) 1.1 g/dL 0.4-1.8 [facility] Glomerular filtration rate ( GFR) estimation/1.73 sq m using serum, plasma, or whole bOrdered By: Jose Ramon Mckenzie on 09-29-2024 GFR/1.73 sq M.predicted among non-blacks MDRD (S/P/Bld) [Vol rate/Area] 68 mL/min/{1.73_m2} >60 [facility] Comment on above: mL/min/1.73m2 CKD-EP I Creatinine Equation (2020) Hematocrit Auto (Bld) [Volum e fraction]Ordered By: Jose Ramon Mckenzie on 09-29-2024 Hematocrit (Bld) [Volume fraction] 37.3 % 37-47 [facility] Hemoglobin measurementOrdere d By: Jose Ramon Mckenzie on 09-29-2024 Hemoglobin (Bld) [Mass/Vol] 12.2 g/dL 12.0-15. 0 [facility] IgA [Mass/Vol]Ordered By: Lilly Mckenzie on 09-29-2024 Immunoglobulin A 158 mg/dL 87-352 [facility] IgG [Mass/Vol]Ordered By: Lilly Mckenzie on 09-29-2024 Immunoglobulin G 1030 mg/dL [phone] [facility] Immature granulocytes/100 WB C Auto (Bld)Ordered By: Jose Ramon Mckenzie on 09-29-2024 Immature granulocytes/100 WBC (Bld) 0.400 % 0.0-0.9 [facility] Comment on above: IG% - Immature Granu locytes (promyelocytes, myelocytes and metamyelocytes) > 1% indicates that a LEFT SHIFT is Present. Immunoglobulin M measurement Ordered By: Jose Ramon Mckenzie on 09-29-2024 Immunoglobulin M 95 mg/dL 26-217 [facility] Immunoglobulin light chains. kappa [Mass/Vol]Ordered By: Jose Ramon Mckenzie on 09-29-2024 [place] Light Chains, Quant 33.6 mg/L High 3.3-19.4 [facility] Immunoglobulin light chains. kappa/Immunoglobulin light chains.lambda (S) [Mass ratio]Ordered By: Jose Ramon Mckenzie on 09-29-2024 [place]/Lambda Light Chain Ratio 1.23 0.26-1.65 [facility] Comment on above: Performed at: [address] [id number] Director: Herb Kincaid PhD, Phone: [phone] Interpretation IEP [Interp]O rdered By: Jose Ramon Mckenzie on 09-29-2024 Immunofixation Screen Comment: . [facility] Comment on above: Presence of monoclon al protein is unclear at this time. Suggestrepeat in 3 to 6 months if clinically indicated. Interpretation of serum or p lasma protein pattern by immunofixation (narrative resultOrdered By: Jose Ramon Mckenzie on 09-29-2024 Protein Fractions Immunofixation Arnav [Interp] Comment: g/dL Not Observed [facility] Comment on above: SPE shows an asymmet rical gamma. LDHon 09-29-2024 LDH 167 U/L Normal 84-246 [facility] Comment on above: Order Comment: 1 Performed By: #### L 501.9520, L500.4050, L504.2610, L3130.0010, L3100.3425, L100.0100, L506.0400 ####[facility] [address] [place], [address] Laboratory - Chemistry and C hemistry - challengeOrdered By: Jose Ramon Mckenzie on 09-29-2024 AST [Catalytic activity/Vol] 22 U/L <32 [facility] Lactate dehydrogenase (LDH) measurementOrdered By: Jose Ramon Mckenzie on 09-29-2024 LDH [Catalytic activity/Vol] 167 U/L 84-246 [facility] Lambda free light chain jatin urementOrdered By: Jose Ramon Mckenzie on 09-29-2024 Free [place] Light Chains, Quant 27.4 mg/L High 5.7-26.3 [facility] Lymphocytes Auto (Unsp spec) [#/Vol]Ordered By: Jose Ramon Mckenzie on 09-29-2024 Lymphocytes (Bld) [#/Vol] 2.28 10*3/uL 0.83-4.5 1 [facility] Lymphocytes/100 WBC Auto (Un sp spec)Ordered By: Jose Ramon Mckenzie on 09-29-2024 Lymphocytes/100 WBC (Bld) 25.0 % 19-41 [facility] MCV (mean corpuscular volume ) determinationOrdered By: Jose Ramon Mckenzie on 09-29-2024 MCV (RBC) [Entitic vol] 94.7 fL 81-99 [facility] Mean corpuscular hemoglobin (MCH) determinationOrdered By: Jose Ramon Mckenzie on 09-29-2024 MCH (RBC) [Entitic mass] 31.0 pg 27.0-32.0 [facility] Mean corpuscular hemoglobin concentration (MCHC) determinationOrdered By: Jose Ramon Mckenzie on 09-29-2024 MCHC (RBC) [Mass/Vol] 32.7 g/dL 32-36 [facility] Mean platelet volume determi nationOrdered By: Jose Ramon Mckenzie on 09-29-2024 Platelet mean volume (Bld) [Entitic vol] 9.4 fL 6.2-12.0 [facility] Monocyte percentageOrdered B y: Jose Ramon Mckenzie on 09-29-2024 Monocytes/100 WBC (Bld) 4.5 % 0-10 [facility] Neutrophil percentageOrdered By: Jose Ramon Mckenzie on 09-29-2024 Neutrophils/100 WBC (Bld) 68.2 % 47-70 [facility] No Panel InformationOrdered By: Jose Ramon Mckenzie on 09-29-2024 Addendum Document Comment . [facility] Comment on above: Protein electrophore sis scan will follow via computer,mail, or chrome polisher delivery. Nucleated red blood cell per centageOrdered By: Jose Ramon Mckenzie on 09-29-2024 Nucleated RBC/100 WBC (Bld) [Ratio] 0 % 0-5 [facility] Platelet countOrdered By: Lilly Mckenzie on 09-29-2024 Platelets (Bld) [#/Vol] 335 10*3/uL 150-450 [facility] Potassium (Unsp spec) [Mass/ Vol]Ordered By: Jose Ramon Mckenzie on 09-29-2024 Potassium [Moles/Vol] 4.0 mmol/L 3.3-5.1 [facility] Potassium measurement (mass/ volume)Ordered By: Jose Ramon Mckenzie on 09-29-2024 Potassium (Unsp spec) [Mass/Vol] 4.0 mmol/L 3.3-5.1 [facility] Protein Fractions Immunofixa tion Arnav [Interp]Ordered By: Jose Ramon Mckenzie on 09-29-2024 M-Thomas (OVIDIO) Comment: g/dL Not Observed [facility] Comment on above: SPE shows an asymmet rical gamma. RBC Auto (Bld) [#/Vol]Ordere d By: Jose Ramon Mckenzie on 09-29-2024 RBC (Bld) [#/Vol] 3.94 10*6/uL Low 4.2-5.4 [facility] Serum albumin/globulin ratio Ordered By: Jose Ramon Mckenzie on 09-29-2024 Albumin/Globulin (OVIDIO) 1.0 0.7-1.7 [facility] Serum creatinine measurement (mass/volume)Ordered By: Jose Ramon Mckenzie on 09-29-2024 Creatinine [Mass/Vol] 0.93 mg/dL 0.70-1.20 [facility] Serum globulin measurement ( mass/volume)Ordered By: Jose Ramon Mckenzie on 09-29-2024 Globulin (S) [Mass/Vol] 3.6 g/dL 2.2-3.9 [facility] Serum glucose measurement (m ass/volume)Ordered By: Jose Ramon Mckenzie on 09-29-2024 Glucose [Mass/Vol] 138 mg/dL High 70-99 [facility] Serum immunoglobulin kappa l ight chains/immunoglobulin lambda light chains mass ratioOrdered By: Jose Ramon Mckenzie on 09-29-2024 Immunoglobulin light chains.kappa/Immunoglobulin light chains.lambda (S) [Mass ratio] 1.23 0.26-1.65 [facility] Comment on above: Performed at: [address] [id number] Director: Herb Kincaid PhD, Phone: [phone] Serum or plasma IgA measurem ent (mass/volume)Ordered By: Jose Ramon Mckenzie on 09-29-2024 IgA [Mass/Vol] 158 mg/dL 87-352 [facility] Serum or plasma IgG measurem ent (mass/volume)Ordered By: Jose Ramon Mckenzie on 09-29-2024 IgG [Mass/Vol] 1030 mg/dL [phone] [facility] Serum or plasma alanine reyes otransferase (ALT) measurementOrdered By: Jose Ramon Mckenzie on 09-29-2024 ALT [Catalytic activity/Vol] 22 U/L <35 [facility] Serum or plasma albumin jatin urement (mass/volume)Ordered By: Jose Ramon Mckenzie on 09-29-2024 Albumin [Mass/Vol] 4.2 g/dL 3.4-4.8 [facility] Serum or plasma albumin/glob ulin mass ratioOrdered By: Jose Ramon Mckenzie on 09-29-2024 Albumin/Globulin [Mass ratio] 1.4 {ratio} 0.9-2.4 [facility] Serum or plasma alkaline lana sphatase measurementOrdered By: Jose Ramon Mckenzie on 09-29-2024 ALP [Catalytic activity/Vol] 65 U/L 35-104 [facility] Serum or plasma alpha 1 glob ulin measurement by electrophoresis (mass/volume)Ordered By: Jose Ramon Mckenzie on 09-29-2024 Alpha 1 globulin Elph [Mass/Vol] 0.3 g/dL 0.0-0.4 [facility] Alpha 1 globulin Elph [Mass/Vol] 1.1 g/dL High 0.4-1.0 [facility] Serum or plasma beta globuli n measurement by electrophoresis (mass/volume)Ordered By: Jose Ramon Mckenzie on 09-29-2024 Beta globulin Elph [Mass/Vol] 1.2 g/dL 0.7-1.3 [facility] Serum or plasma calcium jatin urement (mass/volume)Ordered By: Jose Ramon Mckenzie on 09-29-2024 Calcium [Mass/Vol] 9.5 mg/dL 7.6-11.0 [facility] Serum or plasma gamma globul in measurement by electrophoresis (mass/volume)Ordered By: Jose Ramon Mckenzie on 09-29-2024 Gamma globulin Elph [Mass/Vol] 1.1 g/dL 0.4-1.8 [facility] Serum or plasma immunoelectr ophoresis interpretation (nominal result)Ordered By: Jose Ramon Mckenzie on 09-29-2024 Interpretation IEP [Interp] Comment: . [facility] Comment on above: Presence of monoclon al protein is unclear at this time. Suggestrepeat in 3 to 6 months if clinically indicated. Serum or plasma immunoglobul in kappa light chains measurement (mass/volume)Ordered By: Jose Ramon Mckenzie on 09-29-2024 Immunoglobulin light chains.kappa [Mass/Vol] 33.6 mg/L High 3.3-19.4 [facility] Serum or plasma protein jatin urement (mass/volume)Ordered By: Jose Ramon Mckenzie on 09-29-2024 Protein [Mass/Vol] 6.9 g/dL 6.0-8.5 [facility] Serum or plasma urea nitroge n measurement (mass/volume)Ordered By: Jose Ramon cMkenzie on 09-29-2024 Urea nitrogen [Mass/Vol] 15 mg/dL 4-19 [facility] Sodium levelOrdered By: Pancho Mckenzie on 09-29-2024 Sodium [Moles/Vol] 139 mmol/L 133-145 [facility] T4 Free Directon 09-29-2024 T4 FREE DIRECT 1.00 ng/dL Normal 0.76-1.46 [facility] Comment on above: Performed By: #### L 501.9520, L500.4050, L504.2610, L3130.0010, L3100.3425, L100.0100, L506.0400 ####[facility] [address] [place], [place], [address] T4 freeOrdered By: Jose Ramon allan on 09-29-2024 Free T4 [Mass/Vol] 1.00 ng/dL 0.76-1.46 [facility] TSH DL <= 0.005 mIU/L QnOrde red By: Jose Ramon Mckenzie on 09-29-2024 Thyroid Stimulating Hormone (TSH) 0.814 uIU/mL 0.300-4.200 [facility] TSH Qn 0.814 uIU/mL 0.300-4.200 [facility] Thyroid Stim Hormone (TSH)on 09-29-2024 TSH 0.814 uIU/mL Normal 0.300-4.200 [facility] Comment on above: Performed By: #### L [id number], L500.4050, L504.2610, L3130.0010, L3100.3425, L100.0100, L506.0400 ####[facility] [address] [place], [address] Total proteinOrdered By: Eugene Mckenzie on 09-29-2024 Protein [Mass/Vol] 7.2 g/dL 5.9-8.4 [facility] White blood cell (WBC) count Ordered By: Jose Ramon Mckenzie on 09-29-2024 WBC (Bld) [#/Vol] 9.1 10*3/uL 4.4-11.0 [facility] Office Visit Reporton 2024 Office Visit Report Normal [facility] Absolute lymphocyte countOrd ered By: Dorisasher Yip on 08-28-2024 Lymphocytes Auto (Unsp spec) [#/Vol] 2.19 10*3/uL 0.83-4.51 [facility] Absolute neutrophil countOrd ered By: [facility] Theodora on 08-28-2024 Neutrophils (Bld) [#/Vol] 5.8 10*3/uL 2.0-7.7 [facility] Albumin to globulin ratioOrd ered By: Doris Yip on 08-28-2024 Albumin/Globulin [Mass ratio] 0.8 {ratio} Low 0.9-2.4 [facility] Automated lymphocyte count a s percentage of total leukocytesOrdered By: Doris Yip on 08-28-2024 Lymphocytes/100 WBC Auto (Unsp spec) 25.2 % 19-41 [facility] Basophil percentageOrdered B y: Doris Yip on 08-28-2024 Basophils/100 WBC (Bld) 0.6 % 0-1 [facility] Bilirubin, totalOrdered By: Doris Yip on 08-28-2024 Bilirubin [Mass/Vol] 0.30 mg/dL 0.20-1.00 [facility] Comment on above: For patients on eltr ombopag therapy, use of [place] TBIL is not recommended. Blood urea nitrogen (BUN)/cr eatinine ratioOrdered By: Doris Yip on 08-28-2024 Urea nitrogen/Creatinine [Mass ratio] 13.6 mg/mg 10-20 [facility] CBC W/Diff, Automatedon Absolute Lymph 2.19 X10 3/uL Normal 0.83-4.51 [facility] Comment on above: Performed By: #### L 100.0100, L500.4050 ####[facility] [address] [place], [address] Absolute Neut 5.8 X10 3/uL Normal 2.0-7.7 [facility] Comment on above: Performed By: #### L 100.0100, L500.4050 ####[facility] [address] [place], [address] Basophils/100 WBC (Bld) 0.6 % Normal 0-1 [facility] Comment on above: Performed By: #### L 100.0100, L500.4050 ####[facility] [address] [place], [address] Eosinophils/100 WBC (Bld) 1.7 % Normal 0-5 [facility] Comment on above: Performed By: #### L 100.0100, L500.4050 ####[facility] [address] [place], [address] Erythrocyte distribution width (RBC) [Ratio] 15.1 % High 11.6-14.6 [facility] Comment on above: Performed By: #### L 100.0100, L500.4050 ####[facility] [address] [place], [address] Hematocrit (Bld) [Volume fraction] 36.8 % Low 37-47 [facility] Comment on above: Performed By: #### L 100.0100, L500.4050 ####[facility] [address] [place], [address] Hemoglobin (Bld) [Mass/Vol] 11.9 g/dL Low 12.0-15. 0 [facility] Comment on above: Performed By: #### L 100.0100, L500.4050 ####[facility] [address] [place], [address] IG% 0.600 Normal 0.0-0.9 [facility] Comment on above: Result Comment: IG% - Immature Granulocytes (promyelocytes, myelocytes andmetamyelocytes) > 1% indicates that a LEFT SHIFT is Present. Performed By: #### L 100.0100, L500.4050 ####[facility] [address] [place], [address] Lymphocytes/100 WBC (Bld) 25.2 % Normal 19-41 [facility] Comment on above: Performed By: #### L 100.0100, L500.4050 ####[facility] [address] [place], [address] MCH (RBC) [Entitic mass] 31.1 pg Normal 27.0-32.0 [facility] Comment on above: Performed By: #### L 100.0100, L500.4050 ####[facility] [address] [place], [address] MCHC (RBC) [Mass/Vol] 32.3 g/dL Normal 32-36 [facility] Comment on above: Performed By: #### L 100.0100, L500.4050 ####[facility] [address] [place], [address] MCV (RBC) [Entitic vol] 96.1 fL Normal 81-99 [facility] Comment on above: Performed By: #### L 100.0100, L500.4050 ####[facility] [address] [place], [address] Monocytes/100 WBC (Bld) 4.6 % Normal 0-10 [facility] Comment on above: Performed By: #### L 100.0100, L500.4050 ####[facility] [address] [place], [address] Neutrophils/100 WBC (Bld) 67.3 % Normal 47-70 [facility] Comment on above: Performed By: #### L 100.0100, L500.4050 ####[facility] [address] [place], [address] Nucleated RBC (Bld) [#/Vol] 0 10*3/uL Normal 0-5 [facility] Comment on above: Performed By: #### L 100.0100, L500.4050 ####[facility] [address] [place], [address] Platelet mean volume (Bld) [Entitic vol] 10.3 fL Normal 6.2-12.0 [facility] Comment on above: Performed By: #### L 100.0100, L500.4050 ####[facility] [address] [place], [address] Platelets (Bld) [#/Vol] 329 10*3/uL Normal 150-450 [facility] Comment on above: Performed By: #### L 100.0100, L500.4050 ####[facility] [address] [place], [address] RBC (Bld) [#/Vol] 3.83 10*6/uL Low 4.2-5.4 [facility] Comment on above: Performed By: #### L 100.0100, L500.4050 ####[facility] [address] [place], [address] RDW SD 51.8 fl High 35.1-43.9 [facility] Comment on above: Performed By: #### L 100.0100, L500.4050 ####[facility] [address] [place], [address] WBC (Bld) [#/Vol] 8.7 10*3/uL Normal 4.4-11.0 [facility] Comment on above: Performed By: #### L 100.0100, L500.4050 ####[facility] [address] [place], [address] Carbon dioxide measurementOr dered By: Doris Yip on 08-28-2024 CO2 [Moles/Vol] 26.0 mmol/L 21.0-32.0 [facility] Chloride measurementOrdered By: Doris Yip on 08-28-2024 Chloride [Moles/Vol] 102 mmol/L 98-107 [facility] Comprehensive Metabolic Prof ilon 08-28-2024 Albumin [Mass/Vol] 3.4 g/dL Normal 3.2-5.0 [facility] Comment on above: Performed By: #### L 100.0100, L500.4050 ####[facility] [address] [place], [address] Albumin/Globulin [Mass ratio] 0.8 {ratio} Low 0.9-2.4 [facility] Comment on above: Performed By: #### L 100.0100, L500.4050 ####[facility] [address] [place], [address] ALK P 62 U/L Normal 45-117 [facility] Comment on above: Performed By: #### L 100.0100, L500.4050 ####[facility] [address] [place], [address] ALT [Catalytic activity/Vol] 30 U/L Normal 13-56 [facility] Comment on above: Performed By: #### L 100.0100, L500.4050 ####[facility] [address] [place], [address] AST [Catalytic activity/Vol] 18 U/L Normal 15-37 [facility] Comment on above: Performed By: #### L 100.0100, L500.4050 ####[facility] [address] [place], [address] Bilirubin [Mass/Vol] 0.30 mg/dL Normal 0.20-1.00 [facility] Comment on above: Result Comment: For patients on eltrombopag therapy, use of [place] TBIL is not recommended. Performed By: #### L 100.0100, L500.4050 ####[facility] [address] [place], [address] BUN/CRE 13.6 RATIO Normal 10-20 [facility] Comment on above: Performed By: #### L 100.0100, L500.4050 ####[facility] [address] [place], [address] CA,Total 9.1 mg/dL Normal 8.5-10.1 [facility] Comment on above: Performed By: #### L 100.0100, L500.4050 ####[facility] [address] [place], [address] Chloride [Moles/Vol] 102 mmol/L Normal 98-107 [facility] Comment on above: Performed By: #### L 100.0100, L500.4050 ####[facility] [address] [place], [address] CO2 [Moles/Vol] 26.0 mmol/L Normal 21.0-32.0 [facility] Comment on above: Performed By: #### L 100.0100, L500.4050 ####[facility] [address] [place], [address] Creatinine [Mass/Vol] 1.03 mg/dL High 0.55-1.02 [facility] Comment on above: Result Comment: The validity of the calculated GFR GFRAA in patients over70 years has not been determined. Clinical correlation isessential. Performed By: #### L 100.0100, L500.4050 ####[facility] [address] [place], [address] EST GFR - AA 69 mL/min Normal >60 [facility] Comment on above: Result Comment: Afri can Nigerien GFR Calc Performed By: #### L 100.0100, L500.4050 ####[facility] [address] [place], [address] GAP 8 Normal 5-15 [facility] Comment on above: Performed By: #### L 100.0100, L500.4050 ####[facility] [address] [place], [address] GFR/1.73 sq M.predicted among non-blacks MDRD (S/P/Bld) [Vol rate/Area] 57 mL/min/{1.73_m2} Low >60 [facility] Comment on above: Result Comment: Non- GFR Calc Performed By: #### L 100.0100, L500.4050 ####[facility] [address] [place], [address] Globulin (S) [Mass/Vol] 4.0 g/dL Normal 2.2-4.2 [facility] Comment on above: Performed By: #### L 100.0100, L500.4050 ####[facility] [address] [place], [address] Glucose [Mass/Vol] 180 mg/dL High 74-106 [facility] Comment on above: Result Comment: Fast ing Glucose result greater than or equal to 126 mg/dLsuggests DIABETES MELLITUS per A.D.A. criteria. Performed By: #### L 100.0100, L500.4050 ####[facility] [address] [place], [address] Potassium [Moles/Vol] 4.2 mmol/L Normal 3.5-5.1 [facility] Comment on above: Performed By: #### L 100.0100, L500.4050 ####[facility] [address] [place], [address] Sodium [Moles/Vol] 136 mmol/L Normal 136-145 [facility] Comment on above: Performed By: #### L 100.0100, L500.4050 ####[facility] [address] [place], [address] T PROT 7.4 g/dL Normal 6.4-8.2 [facility] Comment on above: Performed By: #### L 100.0100, L500.4050 ####[facility] [address] [place], [address] Urea nitrogen [Mass/Vol] 14 mg/dL Normal 7-18 [facility] Comment on above: Performed By: #### L 100.0100, L500.4050 ####[facility] [address] [place], [address] Eosinophil percentageOrdered By: Doris Yip on 08-28-2024 Eosinophils/100 WBC (Bld) 1.7 % 0-5 [facility] Erythrocyte distribution wid th ratioOrdered By: Doris Yip on 08-28-2024 Erythrocyte distribution width (RBC) [Ratio] 15.1 % High 11.6-14.6 [facility] Erythrocyte distribution wid th standard deviationOrdered By: Doris Yip on 08-28-2024 Erythrocyte distribution width (RBC) [Entitic vol] 51.8 fL High 35.1-43.9 [facility] Erythrocyte distribution width (RBC) [Ratio] 51.8 fl High 35.1-43.9 [facility] Estimated glomerular filtrat ion rate (GFR) AmericanOrdered By: Doris Yip on 08-28-2024 Estimated GFR (MDRD) Amer 69 mL/min >60 [facility] Comment on above: GFR Calc Glomerular filtration rate ( GFR) estimationOrdered By: Doris Yip on 08-28-2024 Estimated GFR (MDRD) Non-Af Amer 57 mL/min Low >60 [facility] Comment on above: Non- GFR Calc GFR/1.73 sq M.predicted among non-blacks MDRD (S/P/Bld) [Vol rate/Area] 57 mL/min/{1.73_m2} Low >60 [facility] Comment on above: Non- GFR Calc Glucose measurementOrdered B y: Doris Yip on 08-28-2024 Glucose [Mass/Vol] 180 mg/dL High 74-106 [facility] Comment on above: Fasting Glucose resu lt greater than or equal to 126 mg/dL suggests DIABETES MELLITUS per A.D.A. criteria. Hematocrit Auto (Bld) [Volum e fraction]Ordered By: Doris Yip on 08-28-2024 Hematocrit (Bld) [Volume fraction] 36.8 % Low 37-47 [facility] Hemoglobin measurementOrdere d By: Doris Yip on 08-28-2024 Hemoglobin (Bld) [Mass/Vol] 11.9 g/dL Low 12.0-15. 0 [facility] Immature granulocytes/100 WB C Auto (Bld)Ordered By: Doris Yip on 08-28-2024 Immature granulocytes/100 WBC (Bld) 0.600 % 0.0-0.9 [facility] Comment on above: IG% - Immature Granu locytes (promyelocytes, myelocytes and metamyelocytes) > 1% indicates that a LEFT SHIFT is Present. Laboratory - Chemistry and C hemistry - challengeOrdered By: Doris Yip on 08-28-2024 AST [Catalytic activity/Vol] 18 U/L 15-37 [facility] Lymphocytes Auto (Unsp spec) [#/Vol]Ordered By: Doris Yip on 08-28-2024 Lymphocytes (Bld) [#/Vol] 2.19 10*3/uL 0.83-4.5 1 [facility] Lymphocytes/100 WBC Auto (Un sp spec)Ordered By: Doris Yip on 08-28-2024 Lymphocytes/100 WBC (Bld) 25.2 % 19-41 [facility] MCV (mean corpuscular volume ) determinationOrdered By: Doris Yip on 08-28-2024 MCV (RBC) [Entitic vol] 96.1 fL 81-99 [facility] Mean corpuscular hemoglobin (MCH) determinationOrdered By: Doris Yip on 08-28-2024 MCH (RBC) [Entitic mass] 31.1 pg 27.0-32.0 [facility] Mean corpuscular hemoglobin concentration (MCHC) determinationOrdered By: Doris Yip on 08-28-2024 MCHC (RBC) [Mass/Vol] 32.3 g/dL 32-36 [facility] Mean platelet volume determi nationOrdered By: Doris Yip on 08-28-2024 Platelet mean volume (Bld) [Entitic vol] 10.3 fL 6.2-12.0 [facility] Monocyte percentageOrdered B y: Doris Yip on 08-28-2024 Monocytes/100 WBC (Bld) 4.6 % 0-10 [facility] Neutrophil percentageOrdered By: Doris Yip on 08-28-2024 Neutrophils/100 WBC (Bld) 67.3 % 47-70 [facility] Nucleated red blood cell per centageOrdered By: Doris Yip on 08-28-2024 Nucleated RBC/100 WBC (Bld) [Ratio] 0 % 0-5 [facility] Platelet countOrdered By: Ariana Yip on 08-28-2024 Platelets (Bld) [#/Vol] 329 10*3/uL 150-450 [facility] Potassium measurementOrdered By: Doris Yip on 08-28-2024 Potassium [Moles/Vol] 4.2 mmol/L 3.5-5.1 [facility] RBC Auto (Bld) [#/Vol]Ordere d By: Doris Yip on 08-28-2024 RBC (Bld) [#/Vol] 3.83 10*6/uL Low 4.2-5.4 [facility] Serum anion gap measurementO rdered By: Doris Yip on 08-28-2024 Anion gap [Moles/Vol] 8 mmol/L 5-15 [facility] Serum globulin measurementOr dered By: Doris Yip on 08-28-2024 Globulin (S) [Mass/Vol] 4.0 g/dL 2.2-4.2 [facility] Serum or plasma alanine reyes otransferase (ALT) measurementOrdered By: Doris Yip on 08-28-2024 ALT [Catalytic activity/Vol] 30 U/L 13-56 [facility] Serum or plasma albumin jatin urement (mass/volume)Ordered By: Doris Yip on 08-28-2024 Albumin [Mass/Vol] 3.4 g/dL 3.2-5.0 [facility] Serum or plasma alkaline lana sphatase measurementOrdered By: Doris Yip on 08-28-2024 ALP [Catalytic activity/Vol] 62 U/L 45-117 [facility] Serum or plasma calcium jatin urement (mass/volume)Ordered By: Doris Yip on 08-28-2024 Calcium [Mass/Vol] 9.1 mg/dL 8.5-10.1 [facility] Serum or plasma creatinine m easurement (mass/volume)Ordered By: Doris Yip on 08-28-2024 Creatinine [Mass/Vol] 1.03 mg/dL High 0.55-1.02 [facility] Comment on above: The validity of the calculated GFR & GFRAA in patients over 70 years has not been determined. Clinical correlation is essential. Serum or plasma urea nitroge n measurement (mass/volume)Ordered By: Doris Yip on 08-28-2024 Urea nitrogen [Mass/Vol] 14 mg/dL 7-18 [facility] Sodium levelOrdered By: Katherine Yip on 08-28-2024 Sodium [Moles/Vol] 136 mmol/L 136-145 [facility] Total proteinOrdered By: Liyah Yip on 08-28-2024 Protein [Mass/Vol] 7.4 g/dL 6.4-8.2 [facility] White blood cell (WBC) count Ordered By: Doris Yip on 08-28-2024 WBC (Bld) [#/Vol] 8.7 10*3/uL 4.4-11.0 [facility] Dexa Bone Density Studyon Dexa Bone Density Study Normal W [facility] Absolute neutrophil countOrd ered By: Meir Bush on 08-01-2024 Neutrophils (Bld) [#/Vol] 3.4 10*3/uL 2.0-7.7 [facility] Basophil percentageOrdered B y: Meir Bush on 08-01-2024 Basophils/100 WBC (Bld) 1.0 % 0-1 [facility] CBC W/Diff, Automatedon 07-23-2024 Absolute Lymph 2.59 X10 3/uL Normal 0.83-4.51 [facility] Comment on above: Order Comment: Order Date: 08/01/24Order Info: 0184-1 - CBCD Performed By: #### L 503.6030, L501.9985, L100.0100, L503.0105 ####[facility] [address] [place], [address] Absolute Neut 3.4 X10 3/uL Normal 2.0-7.7 [facility] Comment on above: Order Comment: Order Date: 08/01/24Order Info: 0184-1 - CBCD Performed By: #### L 503.6030, L501.9985, L100.0100, L503.0105 ####[facility] [address] [place], [address] Basophils/100 WBC (Bld) 1.0 % Normal 0-1 [facility] Comment on above: Order Comment: Order Date: 08/01/24Order Info: 0184-1 - CBCD Performed By: #### L 503.6030, L501.9985, L100.0100, L503.0105 ####[facility] [address] [place], [address] Eosinophils/100 WBC (Bld) 2.2 % Normal 0-5 [facility] Comment on above: Order Comment: Order Date: 08/01/24Order Info: 0184-1 - CBCD Performed By: #### L 503.6030, L501.9985, L100.0100, L503.0105 ####[facility] [address] [place], [address] Erythrocyte distribution width (RBC) [Ratio] 14.5 % Normal 11.6-14.6 [facility] Comment on above: Order Comment: Order Date: 08/01/24Order Info: [id number]- - CBCD Performed By: #### L 503.6030, L501.9985, L100.0100, L503.0105 ####[facility] [address] [place], [address] Hematocrit (Bld) [Volume fraction] 37.0 % Normal 37-47 [facility] Comment on above: Order Comment: Order Date: 08/01/24Order Info: [id number]- - CBCD Performed By: #### L 503.6030, L501.9985, L100.0100, L503.0105 ####[facility] [address] [place], [address] Hemoglobin (Bld) [Mass/Vol] 12.2 g/dL Normal 12.0-15. 0 [facility] Comment on above: Order Comment: Order Date: 08/01/24Order Info: [id number]- - CBCD Performed By: #### L 503.6030, L501.9985, L100.0100, L503.0105 ####[facility] [address] [place], [address] IG% 1.000 High 0.0-0.9 [facility] Comment on above: Order Comment: Order Date: 08/01/24Order Info: 0184-1 - CBCD Result Comment: IG% - Immature Granulocytes (promyelocytes, myelocytes andmetamyelocytes) > 1% indicates that a LEFT SHIFT is Present. Performed By: #### L 503.6030, L501.9985, L100.0100, L503.0105 ####[facility] [address] [place], [address] Lymphocytes/100 WBC (Bld) 38.0 % Normal 19-41 [facility] Comment on above: Order Comment: Order Date: 08/01/24Order Info: 0184-1 - CBCD Performed By: #### L 503.6030, L501.9985, L100.0100, L503.0105 ####[facility] [address] [place], [address] MCH (RBC) [Entitic mass] 31.1 pg Normal 27.0-32.0 [facility] Comment on above: Order Comment: Order Date: 08/01/24Order Info: [id number] - CBCD Performed By: #### L 503.6030, L501.9985, L100.0100, L503.0105 ####[facility] [address] [place], [address] MCHC (RBC) [Mass/Vol] 33.0 g/dL Normal 32-36 [facility] Comment on above: Order Comment: Order Date: 08/01/24Order Info: 0184-1 - CBCD Performed By: #### L 503.6030, L501.9985, L100.0100, L503.0105 ####[facility] [address] [place], [address] MCV (RBC) [Entitic vol] 94.4 fL Normal 81-99 [facility] Comment on above: Order Comment: Order Date: 08/01/24Order Info: 0184-1 - CBCD Performed By: #### L 503.6030, L501.9985, L100.0100, L503.0105 ####[facility] [address] [place], [address] Monocytes/100 WBC (Bld) 7.5 % Normal 0-10 [facility] Comment on above: Order Comment: Order Date: 08/01/24Order Info: 0184-1 - CBCD Performed By: #### L 503.6030, L501.9985, L100.0100, L503.0105 ####[facility] [address] [place], [address] Neutrophils/100 WBC (Bld) 50.3 % Normal 47-70 [facility] Comment on above: Order Comment: Order Date: 08/01/24Order Info: 0184-1 - CBCD Performed By: #### L 503.6030, L501.9985, L100.0100, L503.0105 ####[facility] [address] [place], [address] Nucleated RBC (Bld) [#/Vol] 0 10*3/uL Normal 0-5 [facility] Comment on above: Order Comment: Order Date: 08/01/24Order Info: 0184-1 - CBCD Performed By: #### L 503.6030, L501.9985, L100.0100, L503.0105 ####[facility] [address] [place], [address] Platelet mean volume (Bld) [Entitic vol] 9.7 fL Normal 6.2-12.0 [facility] Comment on above: Order Comment: Order Date: 08/01/24Order Info: 0184-1 - CBCD Performed By: #### L 503.6030, L501.9985, L100.0100, L503.0105 ####[facility] [address] [place], [address] Platelets (Bld) [#/Vol] 382 10*3/uL Normal 150-450 [facility] Comment on above: Order Comment: Order Date: 08/01/24Order Info: 0184-1 - CBCD Performed By: #### L 503.6030, L501.9985, L100.0100, L503.0105 ####[facility] [address] [place], [address] RBC (Bld) [#/Vol] 3.92 10*6/uL Low 4.2-5.4 [facility] Comment on above: Order Comment: Order Date: 08/01/24Order Info: 0184-1 - CBCD Performed By: #### L 503.6030, L501.9985, L100.0100, L503.0105 ####[facility] [address] [place], [address] RDW SD 49.3 fl High 35.1-43.9 [facility] Comment on above: Order Comment: Order Date: 08/01/24Order Info: 0184-1 - CBCD Performed By: #### L 503.6030, L501.9985, L100.0100, L503.0105 ####[facility] [address] [place], [address] WBC (Bld) [#/Vol] 6.8 10*3/uL Normal 4.4-11.0 [facility] Comment on above: Order Comment: Order Date: 08/01/24Order Info: 0184-1 - CBCD Performed By: #### L 503.6030, L501.9985, L100.0100, L503.0105 ####[facility] [address] [place], [address] Eosinophil percentageOrdered By: Meir Bush on 08-01-2024 Eosinophils/100 WBC (Bld) 2.2 % 0-5 [facility] Erythrocyte distribution wid th ratioOrdered By: Meir Bush on 08-01-2024 Erythrocyte distribution width (RBC) [Ratio] 14.5 % 11.6-14.6 [facility] Erythrocyte distribution wid th standard deviationOrdered By: Meir Bush on 08-01-2024 Erythrocyte distribution width (RBC) [Entitic vol] 49.3 fL High 35.1-43.9 [facility] Hematocrit Auto (Bld) [Volum e fraction]Ordered By: Meir Bush on 08-01-2024 Hematocrit (Bld) [Volume fraction] 37.0 % 37-47 [facility] Hemoglobin A1con 08-01-2024 HbA1c (Bld) [Mass fraction] 7.2 % High 3.8-5.6 [facility] Comment on above: Order Comment: Order Date: 08/01/24Order Info: [id number] - A1C Result Comment: Norm al < 5.7 % Prediabetic 5.7 - 6.4 % Diabetic >or= 6.5 % Please note range changes. Performed By: #### L 503.6030, L501.9985, L100.0100, L503.0105 ####[facility] [address] [place], [address] Hemoglobin A1c percentageOrd ered By: Meir Bush on 08-01-2024 HbA1c (Bld) [Mass fraction] 7.2 % High 3.8-5.6 [facility] Comment on above: Normal < 5.7 % Predi abetic 5.7 - 6.4 % Diabetic >or= 6.5 % Please note range changes. Hemoglobin measurementOrdere d By: Meir Bush on 08-01-2024 Hemoglobin (Bld) [Mass/Vol] 12.2 g/dL 12.0-15. 0 [facility] Immature granulocytes/100 WB C Auto (Bld)Ordered By: Meir Bush on 08-01-2024 Immature granulocytes/100 WBC (Bld) 1.000 % High 0.0-0.9 [facility] Comment on above: IG% - Immature Granu locytes (promyelocytes, myelocytes and metamyelocytes) > 1% indicates that a LEFT SHIFT is Present. Iron (Unsp spec) [Mass/Mass] Ordered By: Meir Bush on 08-01-2024 Iron [Mass/Vol] 57 ug/dL 50-170 [facility] Iron saturation [Mass fracti on]Ordered By: Meir Bush on 08-01-2024 Iron Saturation 18.8 % 15.0-55.0 [facility] Iron+Iron Binding Capacityon 08-01-2024 Iron [Mass/Vol] 57 ug/dL Normal 50-170 [facility] Comment on above: Order Comment: Order Date: 08/01/24Order Info: [id number] - IBC Performed By: #### L 503.6030, L501.9985, L100.0100, L503.0105 ####[facility] [address] [place], [address] IRON SATURATION 18.8 Normal 15.0-55.0 [facility] Comment on above: Order Comment: Order Date: 08/01/24Order Info: [id number] - IBC Performed By: #### L 503.6030, L501.9985, L100.0100, L503.0105 ####[facility] [address] [place], [address] TIBC 304 ug/dL Normal 250-450 [facility] Comment on above: Order Comment: Order Date: 08/01/24Order Info: [id number] - IBC Performed By: #### L 503.6030, L501.9985, L100.0100, L503.0105 ####[facility] [address] [place], [address] Lymphocytes Auto (Unsp spec) [#/Vol]Ordered By: Meir Bush on 08-01-2024 Lymphocytes (Bld) [#/Vol] 2.59 10*3/uL 0.83-4.5 1 [facility] Lymphocytes/100 WBC Auto (Un sp spec)Ordered By: Meir Bush on 08-01-2024 Lymphocytes/100 WBC (Bld) 38.0 % 19-41 [facility] MCV (mean corpuscular volume ) determinationOrdered By: Meir Bush on 08-01-2024 MCV (RBC) [Entitic vol] 94.4 fL 81-99 W [facility] Mean corpuscular hemoglobin (MCH) determinationOrdered By: Meir Bush on 08-01-2024 MCH (RBC) [Entitic mass] 31.1 pg 27.0-32.0 [facility] Mean corpuscular hemoglobin concentration (MCHC) determinationOrdered By: Meir Bush on 08-01-2024 MCHC (RBC) [Mass/Vol] 33.0 g/dL 32-36 [facility] Mean platelet volume determi nationOrdered By: Meir Bush on 08-01-2024 Platelet mean volume (Bld) [Entitic vol] 9.7 fL 6.2-12.0 [facility] Monocyte percentageOrdered B y: Meir Bush on 08-01-2024 Monocytes/100 WBC (Bld) 7.5 % 0-10 [facility] Neutrophil percentageOrdered By: Meir Bush on 08-01-2024 Neutrophils/100 WBC (Bld) 50.3 % 47-70 [facility] Nucleated red blood cell per centageOrdered By: Meir Bush on 08-01-2024 Nucleated RBC/100 WBC (Bld) [Ratio] 0 % 0-5 [facility] Platelet countOrdered By: Jose Bush on 08-01-2024 Platelets (Bld) [#/Vol] 382 10*3/uL 150-450 [facility] RBC Auto (Bld) [#/Vol]Ordere d By: Mier Bush on 08-01-2024 RBC (Bld) [#/Vol] 3.92 10*6/uL Low 4.2-5.4 [facility] TIBCOrdered By: Meir Bush on 08-01-2024 Total Iron Binding Capacity 304 ug/dL 250-450 [facility] Vitamin B12on 08-01-2024 Cobalamin (Vitamin B12) [Mass/Vol] pg/mL High 211-911 [facility] Comment on above: Order Comment: Order Date: 08/01/24Order Info: [id number] - B12 Performed By: #### L 503.6030, L501.9985, L100.0100, L503.0105 ####[facility] [address] [place], [address] Vitamin B12 measurementOrder ed By: Meir Bush on 08-01-2024 Vitamin B12 Level > 2000 pg/mL High 211-911 [facility] White blood cell (WBC) count Ordered By: Meir Bush on 08-01-2024 WBC (Bld) [#/Vol] 6.8 10*3/uL 4.4-11.0 [facility] Neurology Visit Reporton Neurology Visit Report Normal [facility] Synovial Fluid RBC, WBC AND Diffon 07-11-2024 PATH COM/SYFL Reviewed Normal [facility] Comment on above: Result Comment: Nega tive for malignant cells.BLOODY SPECIMENClinical correlation necessary.Gonzalez Benavidez M.D. 07/11/24 AMENDED REPORT 07/11/24 0575 PATH COM/SYFL previously reported as: November follow Performed By: #### L 200.0400 ####[facility] [address] [place], [address] Appearance (Syn fld)Ordered By: Doris Yip on 07-09-2024 Synovial Fluid Appearance Cloudy CLEAR [facility] Cells Counted Total (Syn fld ) [#]Ordered By: Doris Yip on 07-09-2024 Synovial Fluid Total Cells Counted 0.6350 10^3/uL High 0.000-0.000 [facility] Comment on above: This is the Total Nu mber of Nucleated Cell Types in the Body Fluid. Color (Syn fld)Ordered By: Sheyla Yip on 07-09-2024 Synovial Fluid Color Red Pale Yellow [facility] Lymphocytes/100 WBC (Bld)Ord ered By: Doris Yip on 07-09-2024 Synovial Fluid Lymphocytes 11 % [facility] Monocytes/100 WBC (Syn fld)O rdered By: Doris Yip on 07-09-2024 Synovial Fluid Monocytes 13 % [facility] Mononuclear cells Auto (Syn fld) [#/Vol]Ordered By: Doris Yip on 07-09-2024 Synovial Fluid Mononuclear WBCs 0.268 10^3/ul [facility] Mononuclear cells/100 WBC (S yn fld)Ordered By: Doris Yip on 07-09-2024 Synovial Fluid Mononuclear WBCs % 45.5 % [facility] Neutrophils/100 WBC (Syn fld )Ordered By: Doris Yip on 07-09-2024 Synovial Fluid Neutrophils 68 % High 0-25 [facility] Other cells/100 WBC Nom (Syn fld)Ordered By: Doris Yip on 07-09-2024 Synovial Fluid Other Cells 8 % [facility] Pathologist review Arnav (Unsp spec) [Interp]Ordered By: Doris Yip on 07-09-2024 Synovial Fluid Pathologist Comment Reviewed [facility] Comment on above: Previous reported re sult: May follow Edited by: AYLIN on 07/11/24:1355Negative for malignant cells.BLOODY SPECIMENClinical correlation necessary.Gonzalez Benavidez M.D. 07/11/24 AMENDED REPORT 07/11/24 1355 PATH COM/SYFL previously reported as: May follow Polymorphonuclear cells Auto (Syn fld) [#/Vol]Ordered By: Doris Yip on 07-09-2024 Synovial Fluid Polynuclear WBCs 0.322 10^3/uL [facility] Polymorphonuclear cells/100 WBC Auto (Syn fld)Ordered By: Doris Yip on 07-09-2024 Synovial Fluid Polynuclear WBCs % 54.5 % [facility] RBC (Syn fld) [#/Vol]Ordered By: Doris Yip on 07-09-2024 Synovial Fluid RBC 0.190 10^6/uL High 0-0 [facility] Specimen source Nom (Body fl d)Ordered By: Doris Yip on 07-09-2024 Synovial Fluid Source RIGHT HIP [facility] WBC Auto (Syn fld) [#/Vol]Or dered By: Doris Yip on 07-09-2024 Synovial Fluid WBC 0.5900 10^3/uL High 0.000-0.002 W [facility] Low Dose CT Lung Screeningon 07-07-[address] Lung Screening Normal [facility] CBC W/Diff, Automatedon 05-23 Absolute Lymph 2.54 X10 3/uL Normal 0.83-4.51 [facility] Comment on above: Performed By: #### L 100.0100, L500.4050 ####[facility] [address] [place], [address] Absolute Neut 5.9 X10 3/uL Normal 2.0-7.7 [facility] Comment on above: Performed By: #### L 100.0100, L500.4050 ####[facility] [address] [place], [address] Basophils/100 WBC (Bld) 0.6 % Normal 0-1 [facility] Comment on above: Performed By: #### L 100.0100, L500.4050 ####[facility] [address] [place], [address] Eosinophils/100 WBC (Bld) 1.5 % Normal 0-5 [facility] Comment on above: Performed By: #### L 100.0100, L500.4050 ####[facility] [address] [place], [address] Erythrocyte distribution width (RBC) [Ratio] 14.7 % High 11.6-14.6 [facility] Comment on above: Performed By: #### L 100.0100, L500.4050 ####[facility] [address] [place], [address] Hematocrit (Bld) [Volume fraction] 35.6 % Low 37-47 [facility] Comment on above: Performed By: #### L 100.0100, L500.4050 ####[facility] [address] [place], [address] Hemoglobin (Bld) [Mass/Vol] 11.6 g/dL Low 12.0-15. 0 [facility] Comment on above: Performed By: #### L 100.0100, L500.4050 ####[facility] [address] [place], [address] IG% 1.200 High 0.0-0.9 [facility] Comment on above: Result Comment: IG% - Immature Granulocytes (promyelocytes, myelocytes andmetamyelocytes) > 1% indicates that a LEFT SHIFT is Present. Performed By: #### L 100.0100, L500.4050 ####[facility] [address] [place], [address] Lymphocytes/100 WBC (Bld) 27.1 % Normal 19-41 [facility] Comment on above: Performed By: #### L 100.0100, L500.4050 ####[facility] [address] [place], [address] MCH (RBC) [Entitic mass] 31.9 pg Normal 27.0-32.0 [facility] Comment on above: Performed By: #### L 100.0100, L500.4050 ####[facility] [address] [place], [address] MCHC (RBC) [Mass/Vol] 32.6 g/dL Normal 32-36 [facility] Comment on above: Performed By: #### L 100.0100, L500.4050 ####[facility] [address] [place], [address] MCV (RBC) [Entitic vol] 97.8 fL Normal 81-99 [facility] Comment on above: Performed By: #### L 100.0100, L500.4050 ####[facility] [address] [place], [address] Monocytes/100 WBC (Bld) 6.9 % Normal 0-10 [facility] Comment on above: Performed By: #### L 100.0100, L500.4050 ####[facility] [address] [place], [address] Neutrophils/100 WBC (Bld) 62.7 % Normal 47-70 [facility] Comment on above: Performed By: #### L 100.0100, L500.4050 ####[facility] [address] [place], [address] Nucleated RBC (Bld) [#/Vol] 0 10*3/uL Normal 0-5 [facility] Comment on above: Performed By: #### L 100.0100, L500.4050 ####[facility] [address] [place], [address] Platelet mean volume (Bld) [Entitic vol] 10.0 fL Normal 6.2-12.0 [facility] Comment on above: Performed By: #### L 100.0100, L500.4050 ####[facility] [address] [place], [address] Platelets (Bld) [#/Vol] 339 10*3/uL Normal 150-450 [facility] Comment on above: Performed By: #### L 100.0100, L500.4050 ####[facility] [address] [place], [address] RBC (Bld) [#/Vol] 3.64 10*6/uL Low 4.2-5.4 [facility] Comment on above: Performed By: #### L 100.0100, L500.4050 ####[facility] [address] [place], [address] RDW SD 52.5 fl High 35.1-43.9 [facility] Comment on above: Performed By: #### L 100.0100, L500.4050 ####[facility] [address] [place], [address] WBC (Bld) [#/Vol] 9.4 10*3/uL Normal 4.4-11.0 [facility] Comment on above: Performed By: #### L 100.0100, L500.4050 ####[facility] [address] [place], [address] Comprehensive Metabolic Prof [facility] 06-06-2024 Albumin [Mass/Vol] 3.3 g/dL Normal 3.2-5.0 [facility] Comment on above: Performed By: #### L 100.0100, L500.4050 ####[facility] [address] [place], [address] Albumin/Globulin [Mass ratio] 0.9 {ratio} Normal 0.9-2.4 [facility] Comment on above: Performed By: #### L 100.0100, L500.4050 ####[facility] [address] [place], [address] ALK P 66 U/L Normal 45-117 [facility] Comment on above: Performed By: #### L 100.0100, L500.4050 ####[facility] [address] [place], [address] ALT [Catalytic activity/Vol] 27 U/L Normal 13-56 [facility] Comment on above: Performed By: #### L 100.0100, L500.4050 ####[facility] [address] [place], [address] AST [Catalytic activity/Vol] 24 U/L Normal 15-37 [facility] Comment on above: Performed By: #### L 100.0100, L500.4050 ####[facility] [address] [place], [address] Bilirubin [Mass/Vol] 0.30 mg/dL Normal 0.20-1.00 [facility] Comment on above: Result Comment: For patients on eltrombopag therapy, use of Dimension [place] TBIL is not recommended. Performed By: #### L 100.0100, L500.4050 ####[facility] [address] [place], [address] BUN/CRE 22.8 RATIO High 10-20 [facility] Comment on above: Performed By: #### L 100.0100, L500.4050 ####[facility] [address] [place], [address] CA,Total 8.7 mg/dL Normal 8.5-10.1 [facility] Comment on above: Performed By: #### L 100.0100, L500.4050 ####[facility] [address] [place], [address] Chloride [Moles/Vol] 105 mmol/L Normal 98-107 [facility] Comment on above: Performed By: #### L 100.0100, L500.4050 ####[facility] [address] [place], [address] CO2 [Moles/Vol] 29.0 mmol/L Normal 21.0-32.0 [facility] Comment on above: Performed By: #### L 100.0100, L500.4050 ####[facility] [address] [place], [address] Creatinine [Mass/Vol] 1.01 mg/dL Normal 0.55-1.02 [facility] Comment on above: Result Comment: The validity of the calculated GFR GFRAA in patients over70 years has not been determined. Clinical correlation isessential. Performed By: #### L 100.0100, L500.4050 ####[facility] [address] [place], [address] EST GFR - AA 70 mL/min Normal >60 [facility] Comment on above: Result Comment: Afri can Nigerien GFR Calc Performed By: #### L 100.0100, L500.4050 ####[facility] [address] [place], [address] GAP 7 Normal 5-15 [facility] Comment on above: Performed By: #### L 100.0100, L500.4050 ####[facility] [address] [place], [address] GFR/1.73 sq M.predicted among non-blacks MDRD (S/P/Bld) [Vol rate/Area] 58 mL/min/{1.73_m2} Low >60 [facility] Comment on above: Result Comment: Non- GFR Calc Performed By: #### L 100.0100, L500.4050 ####[facility] [address] [place], [address] Globulin (S) [Mass/Vol] 3.7 g/dL Normal 2.2-4.2 [facility] Comment on above: Performed By: #### L 100.0100, [id number] ####[facility] [address] [place], [address] Glucose [Mass/Vol] 152 mg/dL High 74-106 [facility] Comment on above: Result Comment: Fast ing Glucose result greater than or equal to 126 mg/dLsuggests DIABETES MELLITUS per A.D.A. criteria. Performed By: #### L 100.0100, [id number] ####[facility] [address] [place], [address] Potassium [Moles/Vol] 4.2 mmol/L Normal 3.5-5.1 [facility] Comment on above: Performed By: #### L 100.0100, [id number] ####[facility] [address] [place], [address] Sodium [Moles/Vol] 141 mmol/L Normal 136-145 [facility] Comment on above: Performed By: #### L 100.0100, [id number] ####[facility] [address] [place], [address] T PROT 7.0 g/dL Normal 6.4-8.2 [facility] Comment on above: Performed By: #### L 100.0100, [id number] ####[facility] [address] [place], [address] Urea nitrogen [Mass/Vol] 23 mg/dL High - [facility] Comment on above: Performed By: #### L 100.0100, [id number] ####[facility] [address] [place], [address] Office Visit Reporton 2023 Office Visit Report Normal [facility] Chest PA and Lateralon 05-16 Chest PA and Lateral Normal [facility] Toe(s) Min 2 Viewson 024 Toe(s) Min 2 Views Normal [facility] Office Visit Reporton 2023 Office Visit Report Normal [facility] Respiratory Cultureon 2023 RESPC Mixed normal respiratory maine. No Streptococcus pneumoniae, beta-hemolytic Streptococcus or Staphylococcus aureus isolated. Normal [facility] Comment on above: Performed By: #### M 100.1999, M100.2400 ####[facility] [address] [place], [address] Chest PA and Lateralon 04-09 Chest PA and Lateral Normal [facility] Gram Stainon 04-09-2024 GS Acceptable Specimen? Yes (<25 Epithelial cells per/lpf) Gram Stain 4+ White Blood Cells Rare Gram positive cocci Rare Epithelial cells Normal [facility] Comment on above: Performed By: #### M 100.1999, M100.2400 ####[facility] [address] [place], [address] Absolute lymphocyte countOrd ered By: Doris Yip on 11-20-2023 Lymphocytes Auto (Unsp spec) [#/Vol] 3.19 10*3/uL 0.83-4.51 [facility] Automated lymphocyte count a s percentage of total leukocytesOrdered By: Doris Yip on 11-20-2023 Lymphocytes/100 WBC Auto (Unsp spec) 35.2 % 19-41 [facility] Basophil percentageOrdered B y: Doris Yip on 11-20-2023 Basophils/100 WBC (Bld) 0.4 % 0-1 [facility] Bilirubin [Mass/Vol] 0.30 mg/dL 0.20-1.00 [facility] Comment on above: For patients on eltr ombopag therapy, use of [place] TBIL is not recommended. Chloride [Moles/Vol] 102 mmol/L 98-107 [facility] Eosinophils/100 WBC (Bld) 1.7 % 0-5 [facility] Glucose [Mass/Vol] 177 mg/dL 74-106 [facility] Comment on above: Fasting Glucose resu lt greater than or equal to 126 mg/dL suggests DIABETES MELLITUS per A.D.A. criteria. Hemoglobin (Bld) [Mass/Vol] 12.2 g/dL 12.0-15. 0 [facility] Monocytes/100 WBC (Bld) 5.5 % 0-10 [facility] Neutrophils (Bld) [#/Vol] 5.1 10*3/uL 2.0-7.7 [facility] Neutrophils/100 WBC (Bld) 56.6 % 47-70 [facility] Potassium [Moles/Vol] 4.0 mmol/L 3.5-5.1 [facility] Protein [Mass/Vol] 7.5 g/dL 6.4-8.2 [facility] Sodium [Moles/Vol] 135 mmol/L 136-145 [facility] WBC (Bld) [#/Vol] 9.1 10*3/uL 4.4-11.0 [facility] Determination of erythrocyte mean corpuscular volume (MCV)Ordered By: Doris Yip on 11-20-2023 MCV (RBC) [Entitic vol] 92.5 fL 81-99 [facility] Erythrocyte distribution wid th ratioOrdered By: Doris Yip on 11-20-2023 Erythrocyte distribution width (RBC) [Ratio] 13.5 % 11.6-14.6 [facility] Erythrocyte distribution wid th standard deviationOrdered By: Doris Yip on 11-20-2023 Erythrocyte distribution width (RBC) [Entitic vol] 45.8 fL 35.1-43.9 [facility] Hematocrit Auto (Bld) [Volum e fraction]Ordered By: Doris Yip on 11-20-2023 Hematocrit (Bld) [Volume fraction] 38.0 % 37-47 [facility] Immature granulocytes/100 WB C Auto (Bld)Ordered By: Doris Yip on 11-20-2023 Immature granulocytes/100 WBC (Bld) 0.600 % 0.0-0.9 [facility] Comment on above: IG% - Immature Granu locytes (promyelocytes, myelocytes and metamyelocytes) > 1% indicates that a LEFT SHIFT is Present. Laboratory - Chemistry and C hemistry - challengeOrdered By: Doris Yip on 11-20-2023 Albumin/Globulin [Mass ratio] 0.8 {ratio} 0.9-2.4 [facility] ALP [Catalytic activity/Vol] 61 U/L 45-117 [facility] ALT [Catalytic activity/Vol] 27 U/L 13-56 [facility] CO2 [Moles/Vol] 27.0 mmol/L 21.0-32.0 [facility] Globulin (S) [Mass/Vol] 4.1 g/dL 2.2-4.2 W [facility] Urea nitrogen/Creatinine [Mass ratio] 33.2 mg/mg 10-20 [facility] Laboratory - Hematology and Cell countsOrdered By: Doris Yip on 11-20-2023 MCH (RBC) [Entitic mass] 29.7 pg 27.0-32.0 [facility] MCHC (RBC) [Mass/Vol] 32.1 g/dL 32-36 [facility] Nucleated RBC/100 WBC (Bld) [Ratio] 0 % 0-5 [facility] Platelet mean volume (Bld) [Entitic vol] 9.8 fL 6.2-12.0 [facility] Platelets (Bld) [#/Vol] 309 10*3/uL 150-450 [facility] No Panel InformationOrdered By: Doris Yip on 11-20-2023 Estimated GFR (MDRD) Amer 72 mL/min >60 [facility] Comment on above: GFR Calc Estimated GFR (MDRD) Non-Af Amer 59 mL/min >60 [facility] Comment on above: Non- GFR Calc RBC Auto (Bld) [#/Vol]Ordere d By: Doris Yip on 11-20-2023 RBC (Bld) [#/Vol] 4.11 10*6/uL 4.2-5.4 [facility] Serum or plasma calcium jatin urement (mass/volume)Ordered By: Doris Yip on 11-20-2023 Calcium [Mass/Vol] 9.2 mg/dL 8.5-10.1 [facility] Serum or plasma creatinine m easurement (mass/volume)Ordered By: Doris Yip on 11-20-2023 Creatinine [Mass/Vol] 1.00 mg/dL 0.55-1.02 [facility] Comment on above: The validity of the calculated GFR & GFRAA in patients over 70 years has not been determined. Clinical correlation is essential. Serum or plasma urea nitroge n measurement (mass/volume)Ordered By: Doris Yip on 11-20-2023 Urea nitrogen [Mass/Vol] 33 mg/dL 7-18 [facility] Thin prep Papanicolaou smear with manual screeningOrdered By: Doris Yip on 11-20-2023 Thin prep Papanicolaou smear with manual screening 3.4 g/dL 3.2-5.0 [facility] Thin prep Papanicolaou smear with manual screening 16 U/L 15-37 [facility] Thin prep Papanicolaou smear with manual screening 6 5-15 [facility] Absolute lymphocyte countOrd ered By: Doris Yip on 10-19-2023 Lymphocytes Auto (Unsp spec) [#/Vol] 2.50 10*3/uL 0.83-4.51 [facility] Automated lymphocyte count a s percentage of total leukocytesOrdered By: Doris Yip on 10-19-2023 Lymphocytes/100 WBC Auto (Unsp spec) 35.4 % 19-41 [facility] Basophil percentageOrdered B y: Bernard Dawn on 10-19-2023 Basophil percentage 10-25 SEEN /hpf 0-5 [facility] Basophil percentageOrdered B y: Doris Yip on 10-19-2023 Basophils/100 WBC (Bld) 0.7 % 0-1 W [facility] Bilirubin [Mass/Vol] 0.50 mg/dL 0.20-1.00 [facility] Comment on above: For patients on eltr ombopag therapy, use of [place] TBIL is not recommended. Chloride [Moles/Vol] 101 mmol/L 98-107 [facility] Eosinophils/100 WBC (Bld) 1.7 % 0-5 [facility] Glucose [Mass/Vol] 153 mg/dL 74-106 [facility] Comment on above: Fasting Glucose resu lt greater than or equal to 126 mg/dL suggests DIABETES MELLITUS per A.D.A. criteria. Hemoglobin (Bld) [Mass/Vol] 12.2 g/dL 12.0-15. 0 [facility] Monocytes/100 WBC (Bld) 5.9 % 0-10 [facility] Neutrophils (Bld) [#/Vol] 3.9 10*3/uL 2.0-7.7 [facility] Neutrophils/100 WBC (Bld) 55.9 % 47-70 [facility] Potassium [Moles/Vol] 3.8 mmol/L 3.5-5.1 [facility] Protein [Mass/Vol] 7.7 g/dL 6.4-8.2 [facility] Sodium [Moles/Vol] 138 mmol/L 136-145 [facility] WBC (Bld) [#/Vol] 7.1 10*3/uL 4.4-11.0 [facility] Bilirubin Test strip Ql (U)O rdered By: Bernard Dawn on 10-19-2023 Bilirubin Ql (U) 1 mg/dL Negative [facility] Comment on above: COLOR OF URINE MAY A FFECT DIPSTICK RESULTS. Culture, urineOrdered By: Karen Dawn on 10-19-2023 Bacteria identified Cx Nom (U) Mixed Gram Pos & Gram Neg Org [facility] Determination of erythrocyte mean corpuscular volume (MCV)Ordered By: Doris Yip on 10-19-2023 MCV (RBC) [Entitic vol] 93.6 fL 81-99 W [facility] Erythrocyte distribution wid th ratioOrdered By: Doris Yip on 10-19-2023 Erythrocyte distribution width (RBC) [Ratio] 13.2 % 11.6-14.6 [facility] Erythrocyte distribution wid th standard deviationOrdered By: Doris Yip on 10-19-2023 Erythrocyte distribution width (RBC) [Entitic vol] 45.4 fL 35.1-43.9 [facility] Hematocrit Auto (Bld) [Volum e fraction]Ordered By: Doris Yip on 10-19-2023 Hematocrit (Bld) [Volume fraction] 38.1 % 37-47 [facility] Immature granulocytes/100 WB C Auto (Bld)Ordered By: Doris Yip on 10-19-2023 Immature granulocytes/100 WBC (Bld) 0.400 % 0.0-0.9 [facility] Comment on above: IG% - Immature Granu locytes (promyelocytes, myelocytes and metamyelocytes) > 1% indicates that a LEFT SHIFT is Present. Ketones Test strip Ql (U)Ord ered By: Bernard Danw on 10-19-2023 Ketones Ql (U) 5 mg/dl Negative [facility] Laboratory - Chemistry and C hemistry - challengeon 10-19-2023 Bilirubin Ql (U) Negative [facility] Glucose Ql (U) Negative [facility] Ketones Ql (U) Negative [facility] pH (U) 6.0 [pH] [facility] Specific gravity (U) [Rel density] 1.030 [facility] Urobilinogen (U) [Mass/Vol] 0.8127382 mg/dL [facility] Laboratory - Chemistry and C hemistry - challengeOrdered By: Dorisasher Yip on 10-19-2023 Albumin/Globulin [Mass ratio] 0.8 {ratio} 0.9-2.4 [facility] ALP [Catalytic activity/Vol] 67 U/L 45-117 [facility] ALT [Catalytic activity/Vol] 26 U/L 13-56 [facility] CO2 [Moles/Vol] 28.0 mmol/L 21.0-32.0 [facility] Globulin (S) [Mass/Vol] 4.2 g/dL 2.2-4.2 [facility] Urea nitrogen/Creatinine [Mass ratio] 19.8 mg/mg 10-20 [facility] Laboratory - Hematology and Cell countson 10-19-2023 Hemoglobin Ql (U) Hemolyzed [facility] Laboratory - Hematology and Cell countsOrdered By: Doris Yip on 10-19-2023 MCH (RBC) [Entitic mass] 30.0 pg 27.0-32.0 [facility] MCHC (RBC) [Mass/Vol] 32.0 g/dL 32-36 [facility] Nucleated RBC/100 WBC (Bld) [Ratio] 0 % 0-5 [facility] Platelet mean volume (Bld) [Entitic vol] 9.8 fL 6.2-12.0 [facility] Platelets (Bld) [#/Vol] 311 10*3/uL 150-450 [facility] Laboratory - Specimen inform ationon 10-19-2023 Clarity (U) Cloudy [facility] Color (U) RED [facility] Laboratory - Urinalysison Nitrite Ql (U) Negative [facility] Protein Ql (U) 2+ [facility] Mucus LM Ql (Urine sed)Order ed By: Bernard Dawn on 10-19-2023 Mucus Ql (Urine sed) 0 SEEN /hpf [facility] Nitrite Test strip Ql (U)Ord ered By: Bernard Dawn on 10-19-2023 Nitrite Ql (U) Positive Negative [facility] No Panel InformationOrdered By: Bernard Dawn on 10-19-2023 Urine RBC > 100 SEEN /hpf 0-5 [facility] No Panel Informationon 10-18 Urine Leukocytes Positive [facility] Urine Non-Hemolyzed Blood Large [facility] No Panel InformationOrdered By: Doris Yip on 10-19-2023 Estimated GFR (MDRD) Amer 75 mL/min >60 [facility] Comment on above: GFR Calc Estimated GFR (MDRD) Non-Af Amer 62 mL/min >60 [facility] Comment on above: Non- GFR Calc Protein Test strip Ql (U)Ord ered By: Bernard Dawn on 10-19-2023 Protein Ql (U) 100 mg/dl Negative [facility] RBC Auto (Bld) [#/Vol]Ordere d By: Doris Yip on 10-19-2023 RBC (Bld) [#/Vol] 4.07 10*6/uL 4.2-5.4 [facility] Serum or plasma calcium jatin urement (mass/volume)Ordered By: Doris Yip on 10-19-2023 Calcium [Mass/Vol] 9.1 mg/dL 8.5-10.1 [facility] Serum or plasma creatinine m easurement (mass/volume)Ordered By: Doris Yip on 10-19-2023 Creatinine [Mass/Vol] 0.96 mg/dL 0.55-1.02 [facility] Comment on above: The validity of the calculated GFR & GFRAA in patients over 70 years has not been determined. Clinical correlation is essential. Serum or plasma thyroid stim ulating hormone (TSH) measurement (units/volume)Ordered By: Doris Yip on 10-19-2023 TSH Qn 1.23 uIU/mL 0.358-3.74 [facility] Serum or plasma urea nitroge n measurement (mass/volume)Ordered By: Doris Yip on 10-19-2023 Urea nitrogen [Mass/Vol] 19 mg/dL 7-18 [facility] Squamous epithelial cells de tection in urine sediment by light microscopyOrdered By: Bernard Dawn on 10-19-2023 Epithelial cells.squamous LM Ql (Urine sed) 0 SEEN /hpf 5-10 [facility] Thin prep Papanicolaou smear with manual screeningOrdered By: Doris Yip on 10-19-2023 Thin prep Papanicolaou smear with manual screening 3.5 g/dL 3.2-5.0 [facility] Thin prep Papanicolaou smear with manual screening 18 U/L 15-37 [facility] Thin prep Papanicolaou smear with manual screening 9 5-15 [facility] Urine blood detectionOrdered By: Bernard Dawn on 10-19-2023 RBC Ql (U) 250 /ul Negative [facility] Urine clarityOrdered By: Constantine Dawn on 10-19-2023 Clarity (U) Cloudy Clear [facility] Urine color determinationOrd ered By: Bernard Dawn on 10-19-2023 Color (U) SEE COMMENT BELOW Yellow [facility] Comment on above: Visual Urine Color: YELLOW RED Urine glucose detectionOrder ed By: Bernard Dawn on 10-19-2023 Glucose Ql (U) Normal mg/dl Normal [facility] Urine leukocyte esterase det ection by dipstickOrdered By: Bernard Dawn on 10-19-2023 Leukocyte esterase Test strip Ql (U) 100 /ul Negative [facility] Urine pHOrdered By: Bernard morales on 10-19-2023 pH (U) 5.0 [pH] 5.0 - 8.0 [facility] Urine sediment bacteria coun t by microscopy (number/high power field)Ordered By: Bernard Dawn on 10-19-2023 Bacteria LM.HPF (Urine sed) [#/Area] 0 /[HPF] None Seen [facility] Urine specific gravity measu rementOrdered By: Bernard Dawn on 10-19-2023 Specific gravity (U) [Rel density] 1.015 1.002-1.030 [facility] Urine urobilinogen measureme ntOrdered By: Bernard Dawn on 10-19-2023 Urobilinogen Ql (U) 1 mg/dl Normal [facility] Basophil percentageOrdered B y: Jose Ramon Mckenzie on 10-08-2023 Basophil percentage 0-5 SEEN /hpf 0-5 [facility] Bilirubin Test strip Ql (U)O rdered By: Jose Ramon Mckenzie on 10-08-2023 Bilirubin Ql (U) Negative Negative [facility] Epithelial cells.squamous LM Ql (Urine sed)Ordered By: Jose Ramon Mckenzie on 10-08-2023 Epithelial cells.squamous LM.HPF (Urine sed) [#/Area] 0 /[HPF] 5-10 [facility] Glucose Ql (U)Ordered By: Lilly Mckenzie on 10-08-2023 Urine Glucose (UA) Normal mg/dl Normal [facility] Ketones Test strip Ql (U)Ord ered By: Jose Ramon Mckenzie on 10-08-2023 Ketones Ql (U) Negative Negative [facility] Microscopic analysis of urin e for red blood cells (RBC)Ordered By: Jose Ramon Mckenize on 10-08-2023 Microscopic analysis of urine for red blood cells (RBC) 0-5 SEEN /hpf 0-5 [facility] Urine RBC 0-5 SEEN /hpf 0-5 [facility] Mucus LM Ql (Urine sed)Order ed By: Jose Ramon Mckenzie on 10-08-2023 Mucus Ql (Urine sed) 0 SEEN /hpf [facility] Nitrite Test strip Ql (U)Ord ered By: Jose Ramon Mckenzie on 10-08-2023 Nitrite Ql (U) Negative Negative [facility] Protein Test strip Ql (U)Ord ered By: Jose Ramon Mckenzie on 10-08-2023 Protein Ql (U) 15 mg/dl High Negative [facility] Squamous epithelial cells de tection in urine sediment by light microscopyOrdered By: Jose Ramon Mckenzie on 10-08-2023 Epithelial cells.squamous LM Ql (Urine sed) 0-5 SEEN /hpf 5-10 [facility] Urine blood detectionOrdered By: Jose Ramon Mckenzie on 10-08-2023 RBC Ql (U) 10 /ul Negative [facility] Urine Occult Blood 10 /ul High Negative [facility] Urine clarityOrdered By: Eugene Mckenzie on 10-08-2023 Clarity (U) Sl. Cloudy Clear [facility] Urine color determinationOrd ered By: Jose Ramon Mckenzie on 10-08-2023 Color (U) Yellow Yellow [facility] Urine glucose detectionOrder ed By: Jose Ramon Mckenzie on 10-08-2023 Glucose Ql (U) Normal mg/dl Normal [facility] Urine leukocyte esterase det ection by dipstickOrdered By: Jose Ramon Mckenzie on 10-08-2023 Leukocyte esterase Test strip Ql (U) 25 /ul High Negative [facility] Urine pHOrdered By: Jose Ramon meyer on 10-08-2023 pH (U) 5.0 [pH] 5.0 - 8.0 [facility] Urine sediment bacteria coun t by microscopy (number/high power field)Ordered By: Jose Ramon Mckenzie on 10-08-2023 Bacteria LM.HPF (Urine sed) [#/Area] 0 /[HPF] None Seen [facility] Urine specific gravity measu rementOrdered By: Jose Ramon Mckenzie on 10-08-2023 Specific gravity (U) [Rel density] 1.015 1.002-1.030 [facility] Urine urobilinogen measureme ntOrdered By: Jose Ramon Mckenzie on 10-08-2023 Urobilinogen Ql (U) Normal mg/dl Normal [facility] Urobilinogen Ql (U)Ordered B y: Jose Ramon Mckenzie on 10-08-2023 Urine Urobilinogen Normal mg/dl Normal [facility] White blood cell countOrdere d By: Jose Ramon Mckenzie on 10-08-2023 Urine WBC 0-5 SEEN /hpf 0-5 [facility] Absolute lymphocyte countOrd ered By: Jose Ramon Mckenzie on 10-01-2023 Lymphocytes Auto (Unsp spec) [#/Vol] 2.62 10*3/uL 0.83-4.51 [facility] Albumin Elph [Mass/Vol]Order ed By: Jose Ramon Mckenzie on 10-01-2023 Albumin [Mass/Vol] 3.5 g/dL 2.9-4.4 [facility] Automated lymphocyte count a s percentage of total leukocytesOrdered By: Jose Ramon Mckenzie on 10-01-2023 Lymphocytes/100 WBC Auto (Unsp spec) 34.5 % 19-41 [facility] Basophil percentageOrdered B y: Jose Ramon Mckenzie on 10-01-2023 Basophils/100 WBC (Bld) 0.5 % 0-1 W [facility] Bilirubin [Mass/Vol] 0.50 mg/dL 0.20-1.00 [facility] Comment on above: For patients on eltr ombopag therapy, use of [place] TBIL is not recommended. Chloride [Moles/Vol] 103 mmol/L 98-107 [facility] Eosinophils/100 WBC (Bld) 1.8 % 0-5 [facility] Glucose [Mass/Vol] 154 mg/dL 74-106 [facility] Comment on above: Fasting Glucose resu lt greater than or equal to 126 mg/dL suggests DIABETES MELLITUS per A.D.A. criteria. Hemoglobin (Bld) [Mass/Vol] 12.2 g/dL 12.0-15. 0 [facility] LDH [Catalytic activity/Vol] 158 U/L 84-246 [facility] Monocytes/100 WBC (Bld) 5.5 % 0-10 W [facility] Neutrophils (Bld) [#/Vol] 4.3 10*3/uL 2.0-7.7 [facility] Neutrophils/100 WBC (Bld) 57.2 % 47-70 [facility] Potassium [Moles/Vol] 3.7 mmol/L 3.5-5.1 [facility] Protein [Mass/Vol] 7.8 g/dL 6.4-8.2 [facility] Sodium [Moles/Vol] 140 mmol/L 136-145 [facility] WBC (Bld) [#/Vol] 7.6 10*3/uL 4.4-11.0 [facility] Determination of erythrocyte mean corpuscular volume (MCV)Ordered By: Jose Ramon Mckenzie on 10-01-2023 MCV (RBC) [Entitic vol] 92.8 fL 81-99 [facility] Erythrocyte distribution wid th ratioOrdered By: Jose Ramon Mckenzie on 10-01-2023 Erythrocyte distribution width (RBC) [Ratio] 13.4 % 11.6-14.6 [facility] Erythrocyte distribution wid th standard deviationOrdered By: Jose Ramon Mckenzie on 10-01-2023 Erythrocyte distribution width (RBC) [Entitic vol] 45.7 fL 35.1-43.9 [facility] Hematocrit Auto (Bld) [Volum e fraction]Ordered By: Jose Ramon Mckenzie on 10-01-2023 Hematocrit (Bld) [Volume fraction] 37.1 % 37-47 [facility] Immature granulocytes/100 WB C Auto (Bld)Ordered By: Jose Ramon Mckenzie on 10-01-2023 Immature granulocytes/100 WBC (Bld) 0.500 % 0.0-0.9 [facility] Comment on above: IG% - Immature Granu locytes (promyelocytes, myelocytes and metamyelocytes) > 1% indicates that a LEFT SHIFT is Present. Interpretation of serum or p lasma protein pattern by immunofixation (narrative resultOrdered By: Jose Ramon Mckenzie on 10-01-2023 Protein Fractions Immunofixation Arnav [Interp] Not Observed g/dL Not Observed [facility] Laboratory - Chemistry and C hemistry - challengeOrdered By: Jose Ramon Mckenzie on 10-01-2023 Albumin/Globulin [Mass ratio] 0.8 {ratio} 0.9-2.4 [facility] ALP [Catalytic activity/Vol] 68 U/L 45-117 [facility] ALT [Catalytic activity/Vol] 27 U/L 13-56 [facility] CO2 [Moles/Vol] 32.0 mmol/L 21.0-32.0 [facility] Urea nitrogen/Creatinine [Mass ratio] 29.5 mg/mg 10-20 [facility] Laboratory - Hematology and Cell countsOrdered By: Jose Ramon Mckenzie on 10-01-2023 MCH (RBC) [Entitic mass] 30.5 pg 27.0-32.0 [facility] MCHC (RBC) [Mass/Vol] 32.9 g/dL 32-36 [facility] Nucleated RBC/100 WBC (Bld) [Ratio] 0 % 0-5 [facility] Platelet mean volume (Bld) [Entitic vol] 9.2 fL 6.2-12.0 [facility] Platelets (Bld) [#/Vol] 296 10*3/uL 150-450 [facility] No Panel InformationOrdered By: Jose Ramon Mckenzie on 10-01-2023 Addendum Document Comment . [facility] Comment on above: Protein electrophore sis scan will follow via computer,mail, or chrome polisher delivery. Estimated Creatinine Clearance Calc 64.84 ml/min [facility] [facility] Estimated GFR (MDRD) Amer 67 mL/min >60 [facility] Comment on above: GFR Calc Estimated GFR (MDRD) Non-Af Amer 56 mL/min >60 [facility] Comment on above: Non- GFR Calc Free Lambda Light Chains, Quant 31.5 mg/L 5.7-26.3 [facility] Immunoglobulin M 112 mg/dL 26-217 [facility] RBC Auto (Bld) [#/Vol]Ordere d By: Jose Ramon Mckenzie on 10-01-2023 RBC (Bld) [#/Vol] 4.00 10*6/uL 4.2-5.4 [facility] Serum [id number] measu rement by electrophoresisOrdered By: Jose Ramon Mckenzie on 10-01-2023 Alpha 1 globulin Elph [Mass/Vol] 0.2 g/dL 0.0-0.4 [facility] Alpha 1 globulin Elph [Mass/Vol] 1.0 g/dL 0.4-1.0 [facility] Serum globulin measurement ( mass/volume)Ordered By: Jose Ramon Mckenzie on 10-01-2023 Globulin (S) [Mass/Vol] 3.4 g/dL 2.2-3.9 [facility] Serum immunoglobulin kappa l ight chains/immunoglobulin lambda light chains mass ratioOrdered By: Jose Ramon Mckenzie on 10-01-2023 Immunoglobulin light chains.kappa/Immunoglobulin light chains.lambda (S) [Mass ratio] 1.32 0.26-1.65 [facility] Comment on above: Performed at: - [facility] [address] [id number] Director: Herb Kincaid PhD, Phone: [phone] Serum or plasma IgA measurem ent (mass/volume)Ordered By: Jose Ramon [place] on 10-01-2023 IgA [Mass/Vol] 192 mg/dL 87-352 [facility] Serum or plasma IgG measurem ent (mass/volume)Ordered By: Jose Ramon [facility] on 10-01-2023 IgG [Mass/Vol] 1099 mg/dL [phone] [facility] Serum or plasma beta globuli n measurement by electrophoresis (mass/volume)Ordered By: Jose Ramon [place] on 10-01-2023 Beta globulin Elph [Mass/Vol] 1.1 g/dL 0.7-1.3 [facility] Serum or plasma calcium jatin urement (mass/volume)Ordered By: [facility] on 10-01-2023 Calcium [Mass/Vol] 9.1 mg/dL 8.5-10.1 [facility] Serum or plasma creatinine m easurement (mass/volume)Ordered By: [facility] on 10-01-2023 Creatinine [Mass/Vol] 1.05 mg/dL 0.55-1.02 [facility] Comment on above: The validity of the calculated GFR & GFRAA in patients over 70 years has not been determined. Clinical correlation is essential. Serum or plasma gamma globul in measurement by electrophoresis (mass/volume)Ordered By: Jose Ramon [place] on 10-01-2023 Gamma globulin Elph [Mass/Vol] 1.1 g/dL 0.4-1.8 [facility] Serum or plasma immunoelectr ophoresis interpretation (nominal result)Ordered By: Jose Ramon [place] on 10-01-2023 Interpretation IEP [Interp] Comment . [facility] Comment on above: No monoclonality det ected. Serum or plasma immunoglobul in kappa light chains measurement (mass/volume)Ordered By: Jose Ramon Mckenzie on 10-01-2023 Immunoglobulin light chains.kappa [Mass/Vol] 41.6 mg/L 3.3-19.4 [facility] Serum or plasma urea nitroge n measurement (mass/volume)Ordered By: Jose Ramon Grovekristian on 10-01-2023 Urea nitrogen [Mass/Vol] 31 mg/dL 7-18 [facility] Thin prep Papanicolaou smear with manual screeningOrdered By: Jose Ramon Mckenzie on 10-01-2023 Thin prep Papanicolaou smear with manual screening 3.4 g/dL 3.2-5.0 [facility] Thin prep Papanicolaou smear with manual screening 13 U/L 15-37 [facility] Thin prep Papanicolaou smear with manual screening 5 5-15 [facility] Thin prep Papanicolaou smear with manual screening 1.1 0.7-1.7 [facility] Total protein bloodOrdered B y: Jose Ramon Grovekristian on 10-01-2023 Protein [Mass/Vol] 6.9 g/dL 6.0-8.5 [facility] Absolute lymphocyte countOrd ered By: Jose Ramon Grovekristian on 09-24-2023 Lymphocytes Auto (Unsp spec) [#/Vol] 3.22 10*3/uL 0.83-4.51 [facility] Albumin Elph [Mass/Vol]Order ed By: Jose Ramon Grovekristian on 09-24-2023 Albumin [Mass/Vol] 3.7 g/dL 2.9-4.4 [facility] Automated lymphocyte count a s percentage of total leukocytesOrdered By: Jose Ramon Mckenzie on 09-24-2023 Lymphocytes/100 WBC Auto (Unsp spec) 35.4 % 19-41 [facility] Basophil percentageOrdered B y: Jose Ramon Grovekristian on 09-24-2023 Basophils/100 WBC (Bld) 0.7 % 0-1 [facility] Bilirubin [Mass/Vol] 0.50 mg/dL 0.20-1.00 [facility] Comment on above: For patients on eltr ombopag therapy, use of [place] TBIL is not recommended. Chloride [Moles/Vol] 100 mmol/L 98-107 [facility] Eosinophils/100 WBC (Bld) 1.5 % 0-5 [facility] Glucose [Mass/Vol] 120 mg/dL 74-106 [facility] Comment on above: Fasting Glucose resu lt from 100 to 125 mg/dL suggests IMPAIRED HOMEOSTASIS per A.D.A. criteria. Hemoglobin (Bld) [Mass/Vol] 13.0 g/dL 12.0-15. 0 [facility] LDH [Catalytic activity/Vol] 169 U/L 84-246 [facility] Monocytes/100 WBC (Bld) 6.1 % 0-10 [facility] Neutrophils (Bld) [#/Vol] 5.1 10*3/uL 2.0-7.7 [facility] Neutrophils/100 WBC (Bld) 55.7 % 47-70 [facility] Potassium [Moles/Vol] 4.2 mmol/L 3.5-5.1 [facility] Protein [Mass/Vol] 8.1 g/dL 6.4-8.2 [facility] Sodium [Moles/Vol] 136 mmol/L 136-145 [facility] WBC (Bld) [#/Vol] 9.1 10*3/uL 4.4-11.0 [facility] Determination of erythrocyte mean corpuscular volume (MCV)Ordered By: Jose Ramon Mckenzie on 09-24-2023 MCV (RBC) [Entitic vol] 92.6 fL 81-99 [facility] Erythrocyte distribution wid th ratioOrdered By: Jose Ramon Mckenzie on 09-24-2023 Erythrocyte distribution width (RBC) [Ratio] 13.5 % 11.6-14.6 [facility] Erythrocyte distribution wid th standard deviationOrdered By: Jose Ramon Mckenzie on 09-24-2023 Erythrocyte distribution width (RBC) [Entitic vol] 46.1 fL 35.1-43.9 [facility] Hematocrit Auto (Bld) [Volum e fraction]Ordered By: Jose Ramon Mckenzie on 09-24-2023 Hematocrit (Bld) [Volume fraction] 40.0 % 37-47 [facility] Immature granulocytes/100 WB C Auto (Bld)Ordered By: Jos eRamon Mckenzie on 09-24-2023 Immature granulocytes/100 WBC (Bld) 0.600 % 0.0-0.9 [facility] Comment on above: IG% - Immature Granu locytes (promyelocytes, myelocytes and metamyelocytes) > 1% indicates that a LEFT SHIFT is Present. Interpretation of serum or p lasma protein pattern by immunofixation (narrative resultOrdered By: Jose Ramon Mckenzie on 09-24-2023 Protein Fractions Immunofixation Arnav [Interp] Not Observed g/dL Not Observed [facility] Laboratory - Chemistry and C hemistry - challengeOrdered By: Jose Ramon Mckenzie on 09-24-2023 Albumin/Globulin [Mass ratio] 0.8 {ratio} 0.9-2.4 [facility] ALP [Catalytic activity/Vol] 70 U/L 45-117 [facility] ALT [Catalytic activity/Vol] 29 U/L 13-56 [facility] CO2 [Moles/Vol] 31.0 mmol/L 21.0-32.0 [facility] Urea nitrogen/Creatinine [Mass ratio] 31.0 mg/mg 10-20 [facility] Laboratory - Hematology and Cell countsOrdered By: Jose Ramon Mckenzie on 09-24-2023 MCH (RBC) [Entitic mass] 30.1 pg 27.0-32.0 [facility] MCHC (RBC) [Mass/Vol] 32.5 g/dL 32-36 [facility] Nucleated RBC/100 WBC (Bld) [Ratio] 0 % 0-5 [facility] Platelet mean volume (Bld) [Entitic vol] 9.7 fL 6.2-12.0 [facility] Platelets (Bld) [#/Vol] 339 10*3/uL 150-450 [facility] No Panel InformationOrdered By: Jose Ramon Mckenzie on 09-24-2023 Addendum Document Comment . [facility] Comment on above: Protein electrophore sis scan will follow via computer,mail, or chrome polisher delivery. Estimated GFR (MDRD) Amer 71 mL/min >60 [facility] Comment on above: GFR Calc Estimated GFR (MDRD) Non-Af Amer 59 mL/min >60 [facility] Comment on above: Non- GFR Calc Free Lambda Light Chains, Quant 32.4 mg/L 5.7-26.3 [facility] Immunoglobulin M 124 mg/dL 26-217 [facility] RBC Auto (Bld) [#/Vol]Ordere d By: Jose Ramon Mckenzie on 09-24-2023 RBC (Bld) [#/Vol] 4.32 10*6/uL 4.2-5.4 [facility] Serum [id number] measu rement by electrophoresisOrdered By: Jose Ramon Mckenzie on 09-24-2023 Alpha 1 globulin Elph [Mass/Vol] 0.3 g/dL 0.0-0.4 [facility] Alpha 1 globulin Elph [Mass/Vol] 1.0 g/dL 0.4-1.0 [facility] Serum globulin measurement ( mass/volume)Ordered By: Jose Ramon Mckenzie on 09-24-2023 Globulin (S) [Mass/Vol] 3.6 g/dL 2.2-3.9 [facility] Serum immunoglobulin kappa l ight chains/immunoglobulin lambda light chains mass ratioOrdered By: Jose Ramon Mckenzie on 09-24-2023 Immunoglobulin light chains.kappa/Immunoglobulin light chains.lambda (S) [Mass ratio] 1.34 0.26-1.65 [facility] Comment on above: Performed at: [address] [id number] Director: Herb Kincaid PhD, Phone: [phone] Serum or plasma IgA measurem ent (mass/volume)Ordered By: Jose Ramon Mckenzie on 09-24-2023 IgA [Mass/Vol] 208 mg/dL 87-352 [facility] Serum or plasma IgG measurem ent (mass/volume)Ordered By: Jose Ramon Mckenzie on 09-24-2023 IgG [Mass/Vol] 1235 mg/dL [phone] [facility] Serum or plasma beta globuli n measurement by electrophoresis (mass/volume)Ordered By: Jose Ramon Mckenzie on 09-24-2023 Beta globulin Elph [Mass/Vol] 1.1 g/dL 0.7-1.3 [facility] Serum or plasma calcium jatin urement (mass/volume)Ordered By: Jose Ramon Mckenzie on 09-24-2023 Calcium [Mass/Vol] 9.7 mg/dL 8.5-10.1 [facility] Serum or plasma creatinine m easurement (mass/volume)Ordered By: Jose Ramon Mckenzie on 09-24-2023 Creatinine [Mass/Vol] 1.00 mg/dL 0.55-1.02 [facility] Comment on above: The validity of the calculated GFR & GFRAA in patients over 70 years has not been determined. Clinical correlation is essential. Serum or plasma gamma globul in measurement by electrophoresis (mass/volume)Ordered By: Jose Ramon Mckenzie on 09-24-2023 Gamma globulin Elph [Mass/Vol] 1.2 g/dL 0.4-1.8 [facility] Serum or plasma immunoelectr ophoresis interpretation (nominal result)Ordered By: Jose Ramon Mckenzie on 09-24-2023 Interpretation IEP [Interp] Comment . [facility] Comment on above: No monoclonality det ected. Serum or plasma immunoglobul in kappa light chains measurement (mass/volume)Ordered By: Jose Ramon Mckenzie on 09-24-2023 Immunoglobulin light chains.kappa [Mass/Vol] 43.3 mg/L 3.3-19.4 [facility] Serum or plasma urea nitroge n measurement (mass/volume)Ordered By: Jose Ramon Mckenzie on 09-24-2023 Urea nitrogen [Mass/Vol] 31 mg/dL 7-18 [facility] Thin prep Papanicolaou smear with manual screeningOrdered By: Jose Ramon Mckenzie on 09-24-2023 Thin prep Papanicolaou smear with manual screening 3.7 g/dL 3.2-5.0 [facility] Thin prep Papanicolaou smear with manual screening 20 U/L 15-37 [facility] Thin prep Papanicolaou smear with manual screening 5 5-15 [facility] Thin prep Papanicolaou smear with manual screening 1.1 0.7-1.7 [facility] Total protein bloodOrdered B y: Jose Ramon Mckenzie on 09-24-2023 Protein [Mass/Vol] 7.3 g/dL 6.0-8.5 [facility] Laboratory - Chemistry and C hemistry - challengeon 07-25-2023 Bilirubin Ql (U) Negative [facility] Glucose Ql (U) Negative [facility] Ketones Ql (U) Negative [facility] pH (U) 6.5 [pH] [facility] Specific gravity (U) [Rel density] 1.010 [facility] Urobilinogen (U) [Mass/Vol] Negative [facility] Laboratory - Hematology and Cell countson 07-25-2023 Hemoglobin Ql (U) Negative [facility] Laboratory - Specimen inform ationon 07-25-2023 Clarity (U) Clear [facility] Color (U) YELLOW [facility] Laboratory - Urinalysison Nitrite Ql (U) Negative [facility] Protein Ql (U) Negative [facility] No Panel Informationon 07-25 Influenza Types A,B Rapid (Clinic) Negative [facility] POC SARS CoV-2 Antigen Negative [facility] Urine Leukocytes Positive [facility] Urine Non-Hemolyzed Blood [facility] Absolute lymphocyte countOrd ered By: Doris Yip on 07-02-2023 Lymphocytes Auto (Unsp spec) [#/Vol] 2.19 10*3/uL 0.83-4.51 [facility] Basophil percentageOrdered B y: Doris Yip on 07-02-2023 Basophils/100 WBC (Bld) 0.5 % 0-1 [facility] Bilirubin [Mass/Vol] 0.30 mg/dL 0.20-1.00 [facility] Comment on above: For patients on eltr ombopag therapy, use of [place] TBIL is not recommended. Chloride [Moles/Vol] 104 mmol/L 98-107 [facility] Eosinophils/100 WBC (Bld) 1.3 % 0-5 [facility] Glucose [Mass/Vol] 174 mg/dL 74-106 [facility] Comment on above: Fasting Glucose resu lt greater than or equal to 126 mg/dL suggests DIABETES MELLITUS per A.D.A. criteria. Neutrophils (Bld) [#/Vol] 5.7 10*3/uL 2.0-7.7 [facility] Neutrophils/100 WBC (Bld) 66.2 % 47-70 [facility] Potassium [Moles/Vol] 4.0 mmol/L 3.5-5.1 [facility] Protein [Mass/Vol] 7.4 g/dL 6.4-8.2 [facility] Sodium [Moles/Vol] 138 mmol/L 136-145 [facility] WBC (Bld) [#/Vol] 8.6 10*3/uL 4.4-11.0 [facility] Bilirubin Test strip Ql (U)O rdered By: Doris Yip on 07-02-2023 Bilirubin Ql (U) Negative Negative [facility] Blood erythrocytes count (nu mber/volume)Ordered By: Doris Yip on 07-02-2023 RBC (Bld) [#/Vol] 4.35 10*6/uL 4.2-5.4 [facility] Blood hemoglobin measurement (mass/volume)Ordered By: Doris Yip on 07-02-2023 Hemoglobin (Bld) [Mass/Vol] 12.4 g/dL 12.0-15. 0 [facility] Blood lymphocytes/100 leukoc ytesOrdered By: Doris Yip on 07-02-2023 Lymphocytes/100 WBC (Bld) 25.5 % 19-41 [facility] Blood monocytes/100 leukocyt esOrdered By: Doris Yip on 07-02-2023 Monocytes/100 WBC (Bld) 5.9 % 0-10 [facility] Blood platelet mean volumeOr dered By: Doris Yip on 07-02-2023 Platelet mean volume (Bld) [Entitic vol] 9.8 fL 6.2-12.0 [facility] Determination of erythrocyte mean corpuscular volume (MCV)Ordered By: Doris Yip on 07-02-2023 MCV (RBC) [Entitic vol] 89.9 fL 81-99 [facility] Erythrocyte sedimentation ra teOrdered By: Doris Yip on 07-02-2023 ESR (Bld) [Velocity] 29 mm/h 0-30 [facility] Hematocrit Auto (Bld) [Volum e fraction]Ordered By: Doris Yip on 07-02-2023 Hematocrit (Bld) [Volume fraction] 39.1 % 37-47 [facility] Ketones Test strip Ql (U)Ord ered By: Doris Yip on 07-02-2023 Ketones Ql (U) Negative Negative [facility] Laboratory - Chemistry and C hemistry - challengeOrdered By: Doris Yip on 07-02-2023 ALP [Catalytic activity/Vol] 66 U/L 45-117 [facility] ALT [Catalytic activity/Vol] 28 U/L 13-56 [facility] CO2 [Moles/Vol] 27.0 mmol/L 21.0-32.0 [facility] Globulin (S) [Mass/Vol] 4.1 g/dL 2.2-4.2 [facility] Urea nitrogen/Creatinine [Mass ratio] 26.0 mg/mg 10-20 [facility] Laboratory - Hematology and Cell countsOrdered By: Doris Yip on 07-02-2023 Erythrocyte distribution width (RBC) [Entitic vol] 51.2 fL 35.1-43.9 [facility] Erythrocyte distribution width (RBC) [Ratio] 15.4 % 11.6-14.6 [facility] Immature granulocytes/100 WBC (Bld) 0.600 % 0.0-0.9 [facility] Comment on above: IG% - Immature Granu locytes (promyelocytes, myelocytes and metamyelocytes) > 1% indicates that a LEFT SHIFT is Present. MCH (RBC) [Entitic mass] 28.5 pg 27.0-32.0 [facility] Nucleated RBC/100 WBC (Bld) [Ratio] 0 % 0-5 [facility] MCHC Auto (RBC) [Mass/Vol]Or dered By: Doris Yip on 07-02-2023 MCHC (RBC) [Mass/Vol] 31.7 g/dL 32-36 [facility] Nitrite Test strip Ql (U)Ord ered By: Doris Yip on 07-02-2023 Nitrite Ql (U) Negative Negative [facility] No Panel InformationOrdered By: Doris Yip on 07-02-2023 Miscellaneous Test Comment MAILED SPECIMEN [facility] Estimated GFR (MDRD) Amer 78 mL/min >60 [facility] Comment on above: GFR Calc Estimated GFR (MDRD) Non-Af Amer 65 mL/min >60 [facility] Comment on above: Non- GFR Calc Hepatitis B Surface Antigen Non-Reactive Nonrea ctive [facility] Hepatitis C Antibody Non-Reactive Nonreactive [facility] Comment on above: Non Reactive: < 0.8 Equivocal: >/= 0.8 to < 1.0 Reactive: >/= 1.0The CDC recommends that a reactive/equivocal HCV antibody result be followed up by the HCV Nucleic Acid Amplificationtest (011778) Platelets bldOrdered By: Liyah Yip on 07-02-2023 Platelets (Bld) [#/Vol] 298 10*3/uL 150-450 [facility] Protein Test strip Ql (U)Ord ered By: Doris Yip on 07-02-2023 Protein Ql (U) Negative Negative [facility] Serum hepatitis B virus surf regi antibody IgG detectionOrdered By: Doris Yip on 07-02-2023 HBV surface IgG Ql (S) Non-Reactive [facility] Comment on above: Non Reactive: Incons istent with immunity less than <10 mIU/mL Reactive: Consistent with immunity greater than or equal to 10 mIU/mL Serum or plasma C reactive p rotein measurement (mass/volume)Ordered By: Doris Yip on 07-02-2023 CRP [Mass/Vol] 11.40 mg/L 0.0-3.0 [facility] Comment on above: C-Reactive Protein ( CRP) provides useful information for thediagnosis, therapy and monitoring of inflammatory processesand associated diseases. For the evaluation of Relative Riskfor Cardiovascular Disease, a High Sensitivity CRP (HSCRP)should be ordered. Serum or plasma albumin jatin urement (mass/volume)Ordered By: Doris Yip on 07-02-2023 Albumin [Mass/Vol] 3.3 g/dL 3.2-5.0 [facility] Serum or plasma albumin/glob ulin mass ratioOrdered By: Doris Yip on 07-02-2023 Albumin/Globulin [Mass ratio] 0.8 {ratio} 0.9-2.4 [facility] Serum or plasma calcium jatin urement (mass/volume)Ordered By: Doris Yip on 07-02-2023 Calcium [Mass/Vol] 8.8 mg/dL 8.5-10.1 [facility] Serum or plasma creatinine m easurement (mass/volume)Ordered By: Doris Yip on 07-02-2023 Creatinine [Mass/Vol] 0.92 mg/dL 0.55-1.02 [facility] Comment on above: The validity of the calculated GFR & GFRAA in patients over 70 years has not been determined. Clinical correlation is essential. Serum or plasma urea nitroge n measurement (mass/volume)Ordered By: Doris Yip on 07-02-2023 Urea nitrogen [Mass/Vol] 24 mg/dL 7-18 [facility] Thin prep Papanicolaou smear with manual screeningOrdered By: Doris Yip on 07-02-2023 Thin prep Papanicolaou smear with manual screening 13 U/L 15-37 [facility] Thin prep Papanicolaou smear with manual screening 7 5-15 [facility] Urine blood detectionOrdered By: Doris Yip on 07-02-2023 RBC Ql (U) 10 /ul Negative [facility] Urine clarityOrdered By: Liyah Yip on 07-02-2023 Clarity (U) Clear Clear [facility] Urine color determinationOrd ered By: Doris Yip on 07-02-2023 Color (U) Yellow Yellow [facility] Urine creatinine measurement (mass/volume)Ordered By: Doris Yip on 07-02-2023 Creatinine (U) [Mass/Vol] 100.00 mg/dL NO RANGE EST. [facility] Urine glucose detectionOrder ed By: Doris Yip on 07-02-2023 Glucose Ql (U) Normal mg/dl Normal [facility] Urine leukocyte esterase det ection by dipstickOrdered By: Doris Yip on 07-02-2023 Leukocyte esterase Test strip Ql (U) 100 /ul Negative [facility] Urine pHOrdered By: Doris berman on 07-02-2023 pH (U) 5.0 [pH] 5.0 - 8.0 [facility] Urine protein measurement (m ass/volume)Ordered By: Doris Yip on 07-02-2023 Protein (U) [Mass/Vol] 12.0 mg/dL 0.0-11.8 [facility] Urine protein/creatinine mas s ratioOrdered By: Doris Yip on 07-02-2023 Protein/Creatinine (U) [Mass ratio] 120 mg/g CRE 0-200 [facility] Urine specific gravity measu rementOrdered By: Doris Yip on 07-02-2023 Specific gravity (U) [Rel density] 1.020 1.002-1.030 [facility] Urobilinogen Auto test strip Ql (U)Ordered By: Doris Yip on 07-02-2023 Urobilinogen Ql (U) Normal mg/dl Normal [facility] Anaerobic cultureOrdered By: Mari Veliz on 06-08-2023 Bacteria identified Anaer cx Nom (Unsp spec) [facility] Bacteria identified Anaer cx Nom (Unsp spec) [facility] Bacteria identified Cx Nom ( Wound)Ordered By: Mari Veliz on 06-08-2023 Wound Culture Corynebacterium minutissimum [facility] Wound Culture Corynebacterium minutissimum [facility] Gram stain for investigation of transfusion reactionOrdered By: Mari Veliz on 06-08-2023 Microscopic observation Gram stain Nom (Unsp spec) [facility] Microscopic observation Gram stain Nom (Unsp spec) [facility] Bacteria identified Anaer cx Nom (Unsp spec)Ordered By: Mari Veliz on 05-18-2023 Anaerobic Culture Prevotella bivia [facility] Bacteria identified Cx Nom ( Wound)Ordered By: Mari Veliz on 05-18-2023 Wound Culture Staphylococcus epidermidis [facility] Wound Culture Staphylococcus epidermidis [facility] Gram stain for investigation of transfusion reactionOrdered By: Mari Veliz on 05-18-2023 Microscopic observation Gram stain Nom (Unsp spec) [facility] Microscopic observation Gram stain Nom (Unsp spec) [facility] XR CHEST 2V FRONTAL/LATon [facility] Absolute lymphocyte countOrd ered By: Jose Ramon Mckenzie on 04-13-2023 Lymphocytes Auto (Unsp spec) [#/Vol] 2.40 10*3/uL 0.83-4.51 [facility] Basophil percentageOrdered B y: Jose Ramon Mckenzie on 04-13-2023 Basophil percentage 0-5 SEEN /hpf 0-5 [facility] Basophil percentage 3.4 mg/dL 2.5-4.9 [facility] Basophils/100 WBC (Bld) 0.5 % 0-1 [facility] Bilirubin [Mass/Vol] 0.30 mg/dL 0.20-1.00 [facility] Comment on above: For patients on eltr ombopag therapy, use of [place] TBIL is not recommended. Chloride [Moles/Vol] 105 mmol/L 98-107 [facility] Eosinophils/100 WBC (Bld) 1.8 % 0-5 [facility] Glucose [Mass/Vol] 144 mg/dL 74-106 [facility] Comment on above: Fasting Glucose resu lt greater than or equal to 126 mg/dL suggests DIABETES MELLITUS per A.D.A. criteria. LDH [Catalytic activity/Vol] 166 U/L 84-246 [facility] Neutrophils (Bld) [#/Vol] 3.2 10*3/uL 2.0-7.7 [facility] Neutrophils/100 WBC (Bld) 50.5 % 47-70 [facility] Potassium [Moles/Vol] 3.9 mmol/L 3.5-5.1 [facility] Protein [Mass/Vol] 7.9 g/dL 6.4-8.2 [facility] Sodium [Moles/Vol] 138 mmol/L 136-145 [facility] WBC (Bld) [#/Vol] 6.3 10*3/uL 4.4-11.0 [facility] Bilirubin Test strip Ql (U)O rdered By: Jose Ramon Mckenzie on 04-13-2023 Bilirubin Ql (U) Negative Negative [facility] Blood erythrocytes count (nu mber/volume)Ordered By: Jose Ramon Mckenzie on 04-13-2023 RBC (Bld) [#/Vol] 3.96 10*6/uL 4.2-5.4 [facility] Blood hemoglobin measurement (mass/volume)Ordered By: Jose Ramon Mckenzie on 04-13-2023 Hemoglobin (Bld) [Mass/Vol] 10.9 g/dL 12.0-15. 0 [facility] Blood lymphocytes/100 leukoc ytesOrdered By: Jose Ramon Mckenzie on 04-13-2023 Lymphocytes/100 WBC (Bld) 38.4 % 19-41 [facility] Blood monocytes/100 leukocyt esOrdered By: Jose Ramon Mckenzie on 04-13-2023 Monocytes/100 WBC (Bld) 8.0 % 0-10 [facility] Blood platelet mean volumeOr dered By: Jose Ramon Mckenzie on 04-13-2023 Platelet mean volume (Bld) [Entitic vol] 9.1 fL 6.2-12.0 [facility] Determination of erythrocyte mean corpuscular volume (MCV)Ordered By: Jose Ramon Mckenzie on 04-13-2023 MCV (RBC) [Entitic vol] 89.1 fL 81-99 [facility] Erythropoietin (EPO) QnOrder ed By: Jose Ramon Mckenzie on 04-13-2023 Erythropoietin 25.8 mIU/mL High 2.6-18.5 [facility] Comment on above: Shark Punch el DxI 800 Immunoassay SystemValues obtained with different assay methods or kits cannotbe used interchangeably. Results cannot be interpreted asabsolute evidence of the presence or absence of malignantdisease.Performed at: [facility] [id number] Director: Herb Kincaid PhD, Phone: [phone] Folate [Mass/Vol]Ordered By: Jose Ramon Mckenzie on 04-13-2023 Folate 23.70 ng/mL 3.1-55.4 [facility] HBV core Ab Ql (S)Ordered By : Jose Ramon Mckenzie on 04-13-2023 Hepatitis B Core Total Antibody Negative Negative [facility] HBV surface Ag IA QlOrdered By: Jose Ramon Mckenzie on 04-13-2023 Hepatitis B Surface Antigen Negative Negative [facility] Hematocrit Auto (Bld) [Volum e fraction]Ordered By: Jose Ramon Mckenzie on 04-13-2023 Hematocrit (Bld) [Volume fraction] 35.3 % 37-47 [facility] Hemoglobin (Reticulocytes) [ Entitic mass]Ordered By: Jose Ramon Mckenzie on 04-13-2023 Reticulocyte Hemoglobin Equivalent 32.3 pg 30-35 [facility] Hemoglobin in reticulocytes (mass per reticulocyte)Ordered By: Jose Ramon Mckenzie on 04-13-2023 Hemoglobin (Reticulocytes) [Entitic mass] 32.3 pg 30-35 [facility] Interpretation of serum or p lasma protein pattern by immunofixation (narrative resultOrdered By: Jose Ramon Mckenzie on 04-13-2023 Protein Fractions Immunofixation Arnav [Interp] See comment [facility] Comment on above: NOT OBSERVED Iron (Unsp spec) [Mass/Mass] Ordered By: Jose Ramon Mckenzie on 04-13-2023 Iron [Mass/Vol] 55 ug/dL 50-170 [facility] Iron measurement (mass/mass) Ordered By: Jose Ramon Mckenzie on 04-13-2023 Iron (Unsp spec) [Mass/Mass] 55 ug/dL 50-170 [facility] Iron saturation [Mass fracti on]Ordered By: Jose Ramon Mckenzie on 04-13-2023 Iron Saturation 20.3 % 15.0-55.0 [facility] Ketones Test strip Ql (U)Ord ered By: Jose Ramon Mckenzie on 04-13-2023 Ketones Ql (U) Negative Negative [facility] Laboratory - Chemistry and C hemistry - challengeOrdered By: Jose Ramon Mckenzie on 04-13-2023 ALP [Catalytic activity/Vol] 103 U/L 45-117 [facility] ALT [Catalytic activity/Vol] 23 U/L 13-56 [facility] Amylase [Catalytic activity/Vol] 40 U/L 5-55 [facility] CO2 [Moles/Vol] 28.0 mmol/L 21.0-32.0 [facility] Cobalamin (Vitamin B12) [Mass/Vol] 936 pg/mL High 211-911 [facility] Free T4 [Mass/Vol] 0.98 ng/dL 0.76-1.46 [facility] Magnesium [Mass/Vol] 1.9 mg/dL 1.6-2.6 [facility] Urea nitrogen/Creatinine [Mass ratio] 22.8 mg/mg 10-20 [facility] Laboratory - Hematology and Cell countsOrdered By: Jose Ramon Mckenzie on 04-13-2023 Erythrocyte distribution width (RBC) [Entitic vol] 51.5 fL 35.1-43.9 [facility] Erythrocyte distribution width (RBC) [Ratio] 15.8 % 11.6-14.6 [facility] Immature granulocytes/100 WBC (Bld) 0.800 % 0.0-0.9 [facility] Comment on above: IG% - Immature Granu locytes (promyelocytes, myelocytes and metamyelocytes) > 1% indicates that a LEFT SHIFT is Present. MCH (RBC) [Entitic mass] 27.5 pg 27.0-32.0 [facility] Nucleated RBC/100 WBC (Bld) [Ratio] 0 % 0-5 [facility] MCHC Auto (RBC) [Mass/Vol]Or dered By: Jose Ramon Mckenzie on 04-13-2023 MCHC (RBC) [Mass/Vol] 30.9 g/dL 32-36 [facility] Mucus LM Ql (Urine sed)Order ed By: Jose Ramon Mckenzie on 04-13-2023 Mucus Ql (Urine sed) 0 SEEN /hpf [facility] Nitrite Test strip Ql (U)Ord ered By: Jose Ramon Mckenzie on 04-13-2023 Nitrite Ql (U) Negative Negative [facility] No Panel InformationOrdered By: Jose Ramon Mckenzie on 04-13-2023 Addendum Document Comment . [facility] Comment on above: Protein electrophore sis scan will follow via computer,mail, or chrome polisher delivery. Estimated GFR (MDRD) Amer 70 mL/min >60 [facility] Comment on above: GFR Calc Estimated GFR (MDRD) Non-Af Amer 58 mL/min >60 [facility] Comment on above: Non- GFR Calc Free Lambda Light Chains, Quant 37.5 mg/L 5.7-26.3 [facility] Free Triiodothyronine (T3) pg/dL 3.1 pg/mL 2.18-3.98 [facility] Hepatitis B Surface Antibody Non-Reactive . [facility] Comment on above: Non Reactive: Incons istent with immunity, less than 10 mIU/mL Reactive: Consistent with immunity, greater than 9.9 mIU/mL Hepatitis C Antibody Comment Comment . [facility] Comment on above: Not infected with HC V unless early or acute infection issuspected (which may be delayed in an immunocompromisedindividual), or other evidence exists to indicate HCVinfection. Immature Reticulocyte Fraction 21.40 % High 3.00-15.90 [facility] Reticulocyte Count 2.47 % High 0.5-1.5 [facility] Thyroid Stimulating Hormone (TSH) 1.48 uIU/mL 0.358-3.74 [facility] Total Iron Binding Capacity 271 ug/dL 250-450 [facility] Platelets bldOrdered By: Eugene Mckenzie on 04-13-2023 Platelets (Bld) [#/Vol] 281 10*3/uL 150-450 [facility] Protein Test strip Ql (U)Ord ered By: Jose Ramon Mckenzie on 04-13-2023 Protein Ql (U) 15 mg/dl Negative [facility] Serum [id number] measu rement by electrophoresisOrdered By: Jose Ramon Mckenzie on 04-13-2023 Alpha 1 globulin Elph [Mass/Vol] 0.3 g/dL 0.0-0.4 [facility] Alpha 1 globulin Elph [Mass/Vol] 1.1 g/dL 0.4-1.0 [facility] Serum globulin measurement ( mass/volume)Ordered By: Jose Ramon Mckenzie on 04-13-2023 Globulin (S) [Mass/Vol] 4.1 g/dL 2.2-3.9 [facility] Serum hepatitis B virus core antibody detectionOrdered By: Jose Ramon Mckenzie on 04-13-2023 HBV core Ab Ql (S) Negative Negative [facility] Serum immunoglobulin kappa l ight chains/immunoglobulin lambda light chains mass ratioOrdered By: Jose Ramon Mckenzie on 04-13-2023 Immunoglobulin light chains.kappa/Immunoglobulin light chains.lambda (S) [Mass ratio] 1.55 0.26-1.65 [facility] Serum or plasma IgA measurem ent (mass/volume)Ordered By: Jose Ramon Mckenzie on 04-13-2023 IgA [Mass/Vol] 274 mg/dL 87-352 [facility] Serum or plasma IgG measurem ent (mass/volume)Ordered By: Jose Ramon Mckenzie on 04-13-2023 IgG [Mass/Vol] 1459 mg/dL 586-1602 [facility] Serum or plasma IgM measurem ent (mass/volume)Ordered By: Jose Ramon Mckenzie on 04-13-2023 IgM [Mass/Vol] 121 mg/dL 26-217 [facility] Serum or plasma albumin jatin urement (mass/volume)Ordered By: Jose Ramon Mckenzie on 04-13-2023 Albumin [Mass/Vol] 3.0 g/dL 2.9-4.4 [facility] Serum or plasma albumin/glob ulin mass ratioOrdered By: Jose Ramon Mckenzie on 04-13-2023 Albumin/Globulin [Mass ratio] 0.6 {ratio} 0.9-2.4 [facility] Serum or plasma beta globuli n measurement by electrophoresis (mass/volume)Ordered By: Jose Ramon [place] on 04-13-2023 Beta globulin Elph [Mass/Vol] 1.1 g/dL 0.7-1.3 [facility] Serum or plasma calcium jatin urement (mass/volume)Ordered By: Jose Ramon Mckenzie on 04-13-2023 Calcium [Mass/Vol] 8.9 mg/dL 8.5-10.1 [facility] Serum or plasma creatinine m easurement (mass/volume)Ordered By: Jose Ramon Mckenzie on 04-13-2023 Creatinine [Mass/Vol] 1.01 mg/dL 0.55-1.02 [facility] Comment on above: The validity of the calculated GFR & GFRAA in patients over 70 years has not been determined. Clinical correlation is essential. Serum or plasma erythropoiet in (EPO) measurement (units/volume)Ordered By: Jose Ramon Mckenzie on 04-13-2023 Erythropoietin (EPO) Qn 25.8 mIU/mL High 2.6-18.5 [facility] Comment on above: Shark Punch el DxI 800 Immunoassay SystemValues obtained with different assay methods or kits cannotbe used interchangeably. Results cannot be interpreted asabsolute evidence of the presence or absence of malignantdisease.Performed at: [facility] [id number] Director: Herb Kincaid PhD, Phone: [phone] Serum or plasma ferritin karina surement (mass/volume)Ordered By: Jose Ramon Mckenzie on 04-13-2023 Ferritin [Mass/Vol] 334 ng/mL High 8-252 [facility] Serum or plasma folate measu rement (mass/volume)Ordered By: Jose Ramon Mckenzie on 04-13-2023 Folate [Mass/Vol] 23.70 ng/mL 3.1-55.4 [facility] Serum or plasma gamma globul in measurement by electrophoresis (mass/volume)Ordered By: Jose Ramon Mckenzie on 04-13-2023 Gamma globulin Elph [Mass/Vol] 1.5 g/dL 0.4-1.8 [facility] Serum or plasma hepatitis B virus surface antigen detection by immunoassayOrdered By: Jose Ramon Mckenzie on 04-13-2023 HBV surface Ag IA Ql Negative Negative [facility] Serum or plasma immunoelectr ophoresis interpretation (nominal result)Ordered By: Jose Ramon Mckenzie on 04-13-2023 Interpretation IEP [Interp] Comment . [facility] Comment on above: No monoclonality det ected. Serum or plasma immunoglobul in kappa light chains measurement (mass/volume)Ordered By: Jose Ramon Mckenzie on 04-13-2023 Immunoglobulin light chains.kappa [Mass/Vol] 58.1 mg/L 3.3-19.4 [facility] Serum or plasma iron saturat ion measurement (mass fraction)Ordered By: Jose Ramon Mckenzie on 04-13-2023 Iron saturation [Mass fraction] 20.3 % 15.0-55.0 [facility] Serum or plasma urea nitroge n measurement (mass/volume)Ordered By: Jose Ramon Mckenzie on 04-13-2023 Urea nitrogen [Mass/Vol] 23 mg/dL 7-18 [facility] Squamous epithelial cells de tection in urine sediment by light microscopyOrdered By: Jose Ramon Mckenzie on 04-13-2023 Epithelial cells.squamous LM Ql (Urine sed) 0-5 SEEN /hpf 5-10 [facility] Thin prep Papanicolaou smear with manual screeningOrdered By: Jose Ramon Mckenzie on 04-13-2023 Thin prep Papanicolaou smear with manual screening 13 U/L 15-37 [facility] Thin prep Papanicolaou smear with manual screening 5 5-15 [facility] Thin prep Papanicolaou smear with manual screening 0.8 0.7-1.7 [facility] Total protein bloodOrdered B y: Jose Ramon Mckenzie on 04-13-2023 Protein [Mass/Vol] 7.1 g/dL 6.0-8.5 [facility] Trichomonas screening testOr dered By: Jose Ramon Mckenzie on 04-13-2023 Phosphorus Level 3.4 mg/dL 2.5-4.9 [facility] Urine blood detectionOrdered By: Jose Ramon Mckenzie on 04-13-2023 RBC Ql (U) 10 /ul Negative [facility] RBC Ql (U) 0-5 SEEN /hpf 0-5 [facility] Urine clarityOrdered By: Eugeen Mckenzie on 04-13-2023 Clarity (U) Sl. Cloudy Clear [facility] Urine color determinationOrd ered By: Jose Ramon Mckenzie on 04-13-2023 Color (U) Yellow Yellow [facility] Urine glucose detectionOrder ed By: Jose Ramon Mckenzie on 04-13-2023 Glucose Ql (U) Normal mg/dl Normal [facility] Urine leukocyte esterase det ection by dipstickOrdered By: Jose Ramon Mckenzie on 04-13-2023 Leukocyte esterase Test strip Ql (U) 25 /ul Negative [facility] Urine pHOrdered By: Jose Ramon meyer on 04-13-2023 pH (U) 6.0 [pH] 5.0 - 8.0 [facility] Urine sediment bacteria coun t by microscopy (number/high power field)Ordered By: Jose Ramon Mckenzie on 04-13-2023 Bacteria LM.HPF (Urine sed) [#/Area] 0 /[HPF] None Seen [facility] Urine specific gravity measu rementOrdered By: Jose Ramon Mckenzie on 04-13-2023 Specific gravity (U) [Rel density] 1.015 1.002-1.030 [facility] Urobilinogen Auto test strip Ql (U)Ordered By: Jose Ramon Mckenzie on 04-13-2023 Urobilinogen Ql (U) Normal mg/dl Normal [facility] XR CHEST 2V FRONTAL/LATon [facility] Basophil percentageOrdered B y: Kathleen De Leon on 03-28-2023 Chloride [Moles/Vol] 108 mmol/L 98-107 [facility] Glucose [Mass/Vol] 112 mg/dL 74-106 [facility] Comment on above: Fasting Glucose resu lt from 100 to 125 mg/dL suggests IMPAIRED HOMEOSTASIS per A.D.A. criteria. Potassium [Moles/Vol] 3.9 mmol/L 3.5-5.1 [facility] Sodium [Moles/Vol] 141 mmol/L 136-145 [facility] WBC (Bld) [#/Vol] 8.4 10*3/uL 4.4-11.0 [facility] Blood erythrocytes count (nu mber/volume)Ordered By: Kathleen De Leon on 03-28-2023 RBC (Bld) [#/Vol] 3.34 10*6/uL 4.2-5.4 [facility] Blood hemoglobin measurement (mass/volume)Ordered By: Kathleen De Leon on 03-28-2023 Hemoglobin (Bld) [Mass/Vol] 9.4 g/dL 12.0-15. 0 [facility] Blood platelet mean volumeOr dered By: Kathleen De Leon on 03-28-2023 Platelet mean volume (Bld) [Entitic vol] 9.1 fL 6.2-12.0 [facility] Determination of erythrocyte mean corpuscular volume (MCV)Ordered By: Kathleen De Leon on 03-28-2023 MCV (RBC) [Entitic vol] 92.8 fL 81-99 [facility] Hematocrit Auto (Bld) [Volum e fraction]Ordered By: Kathleen De Leon on 03-28-2023 Hematocrit (Bld) [Volume fraction] 31.0 % 37-47 [facility] Laboratory - Chemistry and C hemistry - challengeOrdered By: [facility] Moises on 03-28-2023 CO2 [Moles/Vol] 26.0 mmol/L 21.0-32.0 [facility] Urea nitrogen/Creatinine [Mass ratio] 17.3 mg/mg 10-20 [facility] Laboratory - Hematology and Cell countsOrdered By: Kathleengail De Leon on 03-28-2023 Erythrocyte distribution width (RBC) [Entitic vol] 50.4 fL 35.1-43.9 [facility] Erythrocyte distribution width (RBC) [Ratio] 14.7 % 11.6-14.6 [facility] MCH (RBC) [Entitic mass] 28.1 pg 27.0-32.0 [facility] MCHC Auto (RBC) [Mass/Vol]Or dered By: Kathleen De Leon on 03-28-2023 MCHC (RBC) [Mass/Vol] 30.3 g/dL 32-36 [facility] No Panel InformationOrdered By: Kathleen De Leon on 03-28-2023 Estimated GFR (MDRD) Amer 43 mL/min >60 [facility] Comment on above: GFR Calc Estimated GFR (MDRD) Non-Af Amer 35 mL/min >60 [facility] Comment on above: Non- GFR Calc Platelets bldOrdered By: Greg De Leon on 03-28-2023 Platelets (Bld) [#/Vol] 525 10*3/uL 150-450 [facility] Serum or plasma calcium jatin urement (mass/volume)Ordered By: Kathleen De Leon on 03-28-2023 Calcium [Mass/Vol] 8.6 mg/dL 8.5-10.1 [facility] Serum or plasma creatinine m easurement (mass/volume)Ordered By: Kathleen De Leon on 03-28-2023 Creatinine [Mass/Vol] 1.56 mg/dL 0.55-1.02 [facility] Comment on above: The validity of the calculated GFR & GFRAA in patients over 70 years has not been determined. Clinical correlation is essential. Serum or plasma urea nitroge n measurement (mass/volume)Ordered By: Kathleen De Leon on 03-28-2023 Urea nitrogen [Mass/Vol] 27 mg/dL 7-18 [facility] Thin prep Papanicolaou smear with manual screeningOrdered By: Kathleen De Leon on 03-28-2023 Thin prep Papanicolaou smear with manual screening 7 5-15 [facility] Laboratory - CoagulationOrde red By: Gerard Pereyra on 03-13-2023 INR Coag (Bld) [Relative time] 2.5 {INR} [facility] Comment on above: Critical Value > 4.0 Whole blood prothrombin time Ordered By: Gerard Pereyra on 03-13-2023 PT Coag (Bld) [Time] 27.2 s 11.7-14.9 [facility] Absolute lymphocyte countOrd ered By: Autumn Caldwell on 03-12-2023 Lymphocytes Auto (Unsp spec) [#/Vol] 2.46 10*3/uL 0.83-4.51 [facility] Basophil percentageOrdered B y: Autumn Caldwell on 03-12-2023 Basophils/100 WBC (Bld) 0.5 % 0-1 [facility] Chloride [Moles/Vol] 100 mmol/L 98-107 [facility] Eosinophils/100 WBC (Bld) 0.6 % 0-5 [facility] Glucose [Mass/Vol] 191 mg/dL 74-106 [facility] Comment on above: Fasting Glucose resu lt greater than or equal to 126 mg/dL suggests DIABETES MELLITUS per A.D.A. criteria. Neutrophils (Bld) [#/Vol] 11.2 10*3/uL 2.0-7.7 [facility] Neutrophils/100 WBC (Bld) 73.5 % 47-70 [facility] Potassium [Moles/Vol] 4.1 mmol/L 3.5-5.1 [facility] Sodium [Moles/Vol] 133 mmol/L 136-145 [facility] WBC (Bld) [#/Vol] 15.2 10*3/uL 4.4-11.0 [facility] Blood erythrocytes count (nu mber/volume)Ordered By: Autumn Caldwell on 03-12-2023 RBC (Bld) [#/Vol] 3.55 10*6/uL 4.2-5.4 [facility] Blood hemoglobin measurement (mass/volume)Ordered By: Autumn Caldwell on 03-12-2023 Hemoglobin (Bld) [Mass/Vol] 10.0 g/dL 12.0-15. 0 [facility] Blood lymphocytes/100 leukoc ytesOrdered By: Autumn Caldwell on 03-12-2023 Lymphocytes/100 WBC (Bld) 16.2 % 19-41 [facility] Blood monocytes/100 leukocyt esOrdered By: Autumn Caldwell on 03-12-2023 Monocytes/100 WBC (Bld) 8.3 % 0-10 [facility] Blood platelet mean volumeOr dered By: Autumn Caldwell on 03-12-2023 Platelet mean volume (Bld) [Entitic vol] 9.7 fL 6.2-12.0 [facility] Determination of erythrocyte mean corpuscular volume (MCV)Ordered By: Autumn Caldwell on 03-12-2023 MCV (RBC) [Entitic vol] 92.4 fL 81-99 [facility] Hematocrit Auto (Bld) [Volum e fraction]Ordered By: Autumn Caldwell on 03-12-2023 Hematocrit (Bld) [Volume fraction] 32.8 % 37-47 [facility] Laboratory - Chemistry and C hemistry - challengeOrdered By: Autumn Caldwell on 03-12-2023 CO2 [Moles/Vol] 24.0 mmol/L 21.0-32.0 [facility] Natriuretic peptide B (Bld) [Mass/Vol] 34.7 pg/mL 0-100 [facility] Urea nitrogen/Creatinine [Mass ratio] 22.3 mg/mg 10-20 [facility] Laboratory - Hematology and Cell countsOrdered By: Autumn Caldwell on 03-12-2023 Erythrocyte distribution width (RBC) [Entitic vol] 49.7 fL 35.1-43.9 [facility] Erythrocyte distribution width (RBC) [Ratio] 14.7 % 11.6-14.6 [facility] Immature granulocytes/100 WBC (Bld) 0.900 % 0.0-0.9 [facility] Comment on above: IG% - Immature Granu locytes (promyelocytes, myelocytes and metamyelocytes) > 1% indicates that a LEFT SHIFT is Present. MCH (RBC) [Entitic mass] 28.2 pg 27.0-32.0 [facility] Nucleated RBC/100 WBC (Bld) [Ratio] 0 % 0-5 [facility] MCHC Auto (RBC) [Mass/Vol]Or dered By: Autumn Caldwell on 03-12-2023 MCHC (RBC) [Mass/Vol] 30.5 g/dL 32-36 [facility] No Panel InformationOrdered By: Autumn Caldwell on 03-12-2023 Estimated GFR (MDRD) Amer 77 mL/min >60 [facility] Comment on above: GFR Calc Estimated GFR (MDRD) Non-Af Amer 63 mL/min >60 [facility] Comment on above: Non- GFR Calc Platelets bldOrdered By: Wilmer Caldwell on 03-12-2023 Platelets (Bld) [#/Vol] 444 10*3/uL 150-450 [facility] Serum or plasma calcium jatin urement (mass/volume)Ordered By: Autumn Caldwell on 03-12-2023 Calcium [Mass/Vol] 9.0 mg/dL 8.5-10.1 [facility] Serum or plasma creatinine m easurement (mass/volume)Ordered By: Autumn Caldwell on 03-12-2023 Creatinine [Mass/Vol] 0.94 mg/dL 0.55-1.02 [facility] Comment on above: The validity of the calculated GFR & GFRAA in patients over 70 years has not been determined. Clinical correlation is essential. Serum or plasma urea nitroge n measurement (mass/volume)Ordered By: Autumn Caldwell on 03-12-2023 Urea nitrogen [Mass/Vol] 21 mg/dL 7-18 [facility] Thin prep Papanicolaou smear with manual screeningOrdered By: Autumn Caldwell on 03-12-2023 Thin prep Papanicolaou smear with manual screening 9 5-15 [facility] Bilirubin Test strip Ql (U)O rdered By: Gerard Pereyra on 02-02-2023 Bilirubin Ql (U) Negative Negative [facility] Ketones Test strip Ql (U)Ord ered By: Gerard Pereyra on 02-02-2023 Ketones Ql (U) Negative Negative [facility] Nitrite Test strip Ql (U)Ord ered By: Gerard Pereyra on 02-02-2023 Nitrite Ql (U) Negative Negative [facility] Protein Test strip Ql (U)Ord ered By: Gerard Pereyra on 02-02-2023 Protein Ql (U) 15 mg/dl Negative [facility] Urine blood detectionOrdered By: Gerard Pereyra on 02-02-2023 RBC Ql (U) Negative Negative [facility] Urine clarityOrdered By: Christo Pereyra on 02-02-2023 Clarity (U) Clear Clear [facility] Urine color determinationOrd ered By: Gerard Pereyra on 02-02-2023 Color (U) Yellow Yellow [facility] Urine glucose detectionOrder ed By: Gerard Pereyra on 02-02-2023 Glucose Ql (U) Normal mg/dl Normal [facility] Urine leukocyte esterase det ection by dipstickOrdered By: Gerard Pereyra on 02-02-2023 Leukocyte esterase Test strip Ql (U) Negative Negative [facility] Urine pHOrdered By: Gerard garcia on 02-02-2023 pH (U) 7.0 [pH] 5.0 - 8.0 [facility] Urine specific gravity measu rementOrdered By: Gerard Pereyra on 02-02-2023 Specific gravity (U) [Rel density] 1.010 1.002-1.030 [facility] Urobilinogen Auto test strip Ql (U)Ordered By: Gerard Pereyra on 02-02-2023 Urobilinogen Ql (U) Normal mg/dl Normal [facility] Absolute lymphocyte countOrd ered By: Gerard Pereyra on 01-30-2023 Lymphocytes Auto (Unsp spec) [#/Vol] 1.78 10*3/uL 0.83-4.51 [facility] Atypical perinuclear antineu trophil cytoplasmic antibodies measurementOrdered By: Gerard Pereyra on 01-30-2023 Neutrophil cytoplasmic Ab.perinuclear.atypical IF (S) [Titer] 1:320 titer Neg:<1:20 [facility] Comment on above: The atypical pANCA p attern has been observed in asignificant percentage of patients with ulcerative colitis,primary sclerosing cholangitis and autoimmune hepatitis. Basophil percentageOrdered B y: Gerard Pereyra on 01-30-2023 Basophil percentage < 0.2 AI 0.0-0.9 [facility] Basophils/100 WBC (Bld) 0.5 % 0-1 [facility] Bilirubin [Mass/Vol] 0.40 mg/dL 0.20-1.00 [facility] Comment on above: For patients on eltr ombopag therapy, use of Dimension [place] TBIL is not recommended. Eosinophils/100 WBC (Bld) 1.0 % 0-5 [facility] Neutrophils (Bld) [#/Vol] 10.5 10*3/uL 2.0-7.7 [facility] Neutrophils/100 WBC (Bld) 77.8 % 47-70 [facility] Protein [Mass/Vol] 7.7 g/dL 6.4-8.2 [facility] WBC (Bld) [#/Vol] 13.4 10*3/uL 4.4-11.0 [facility] Blood erythrocytes count (nu mber/volume)Ordered By: Gerard Pereyra on 01-30-2023 RBC (Bld) [#/Vol] 3.50 10*6/uL 4.2-5.4 [facility] Blood hemoglobin measurement (mass/volume)Ordered By: Gerard Pereyra on 01-30-2023 Hemoglobin (Bld) [Mass/Vol] 10.5 g/dL 12.0-15. 0 [facility] Blood lymphocytes/100 leukoc ytesOrdered By: Gerard Pereyra on 01-30-2023 Lymphocytes/100 WBC (Bld) 13.3 % 19-41 [facility] Blood manual differential co mment interpretation (narrative result)Ordered By: Gerard Pereyra on 01-30-2023 Manual differential comment Arnav (Bld) [Interp] SCANNED [facility] Blood monocytes/100 leukocyt esOrdered By: Gerard Pereyra on 01-30-2023 Monocytes/100 WBC (Bld) 5.4 % 0-10 [facility] Blood platelet mean volumeOr dered By: Gerard Pereyra on 01-30-2023 Platelet mean volume (Bld) [Entitic vol] 9.3 fL 6.2-12.0 [facility] [facility] Determination of erythrocyte mean corpuscular volume (MCV)Ordered By: Gerard Pereyra on 01-30-2023 MCV (RBC) [Entitic vol] 95.4 fL 81-99 [facility] Direct bilirubinOrdered By: Gerard Pereyra on 01-30-2023 Bilirubin.direct [Mass/Vol] 0.18 mg/dL 0.00-0.3 0 [facility] Erythrocyte sedimentation ra teOrdered By: Gerard Pereyra on 01-30-2023 ESR (Bld) [Velocity] 36 mm/h 0-30 [facility] Hematocrit Auto (Bld) [Volum e fraction]Ordered By: Gerard Pereyra on 01-30-2023 Hematocrit (Bld) [Volume fraction] 33.4 % 37-47 [facility] Laboratory - Chemistry and C hemistry - challengeOrdered By: Gerard Pereyra on 01-30-2023 ALP [Catalytic activity/Vol] 99 U/L 45-117 [facility] ALT [Catalytic activity/Vol] 27 U/L 13-56 [facility] Globulin (S) [Mass/Vol] 5.8 g/dL 2.2-4.2 [facility] Laboratory - Hematology and Cell countsOrdered By: Gerard Pereyra on 01-30-2023 Erythrocyte distribution width (RBC) [Entitic vol] 48.5 fL 35.1-43.9 [facility] Erythrocyte distribution width (RBC) [Ratio] 13.9 % 11.6-14.6 [facility] Immature granulocytes/100 WBC (Bld) 2.000 % 0.0-0.9 [facility] Comment on above: IG% - Immature Granu locytes (promyelocytes, myelocytes and metamyelocytes) > 1% indicates that a LEFT SHIFT is Present. MCH (RBC) [Entitic mass] 30.0 pg 27.0-32.0 [facility] Nucleated RBC/100 WBC (Bld) [Ratio] 0 % 0-5 [facility] MCHC Auto (RBC) [Mass/Vol]Or dered By: Gerard Pereyra on 01-30-2023 MCHC (RBC) [Mass/Vol] 31.4 g/dL 32-36 [facility] No Panel InformationOrdered By: Gerard Pereyra on 01-30-2023 Anti-Nuclear Antibody Screen Negative Negative [facility] Comment on above: Performed at: [address] [id number] Director: Herb Kincaid PhD, Phone: [phone] SOFTWARE SUPPORT ANALYST Antibody <0.2 AI 0.0-0.9 [facility] Platelets bldOrdered By: Christo Pereyra on 01-30-2023 Platelets (Bld) [#/Vol] 301 10*3/uL 150-450 [facility] Serum DNA double strand anti body assay (units/volume)Ordered By: Gerard Pereyra on 01-30-2023 DNA double strand Ab Qn (S) [IU]/mL 0-9 [facility] Comment on above: Negative <5 Equivoca l 5 - 9 Positive >9 Serum Lilly-1 antibody assay (u nits/volume)Ordered By: Gerard Pereyra on 01-30-2023 Lilly-1 extractable nuclear Ab Qn (S) <0.2 AI 0.0-0.9 [facility] Serum Scl-70 extractable nuc lear antibody assay (units/volume)Ordered By: Gerard Pereyra on 01-30-2023 SCL-70 extractable nuclear Ab Qn (S) <0.2 AI 0.0-0.9 [facility] Serum classic neutrophil cyt oplasmic antibody assay (units/volume)Ordered By: Gerard Pereyra on 01-30-2023 Neutrophil cytoplasmic Ab.classic Qn (S) <1:20 titer Neg:<1:20 [facility] Serum cyclic citrullinated p eptide IgG antibody assay (units/volume)Ordered By: Gerard Pereyra on 01-30-2023 Cyclic citrullinated peptide IgG Qn 7 units 0-19 [facility] Comment on above: Negative <20 Weak po sitive 20 - 39 Moderate positive 40 - 59 Strong positive >59Performed at: [facility] [employer] [id number] Director: Herb Kincaid PhD, Phone: [phone] Serum or plasma C reactive p rotein measurement (mass/volume)Ordered By: Gerard Pereyra on 01-30-2023 CRP [Mass/Vol] 278.00 mg/L 0.0-3.0 [facility] Comment on above: C-Reactive Protein ( CRP) provides useful information for thediagnosis, therapy and monitoring of inflammatory processesand associated diseases. For the evaluation of Relative Riskfor Cardiovascular Disease, a High Sensitivity CRP (HSCRP)should be ordered. Serum or plasma actin IgG an tibody assay (units/volume)Ordered By: Gerard Pereyra on 01-30-2023 Actin IgG Qn 18 Units 0-19 [facility] Comment on above: Negative 0 - 19 Weak positive 20 - 30 Moderate to strong positive >30 Actin Antibodies are found in 52-85% of patients with autoimmune hepatitis or chronic active hepatitis and in 22% of patients with primary biliary cirrhosis. Serum or plasma albumin jatin urement (mass/volume)Ordered By: Gerard Pereyra on 01-30-2023 Albumin [Mass/Vol] 1.9 g/dL 3.2-5.0 [facility] Serum or plasma angiotensin converting enzyme measurement (enzymatic activity/volume)Ordered By: Gerard Pereyra on 01-30-2023 Angiotensin converting enzyme [Catalytic activity/Vol] 16 U/L 14-82 [facility] Serum perinuclear neutrophil cytoplasmic antibody titer by immunofluorescenceOrdered By: Gerard Pereyra on 01-30-2023 Neutrophil cytoplasmic Ab.perinuclear IF (S) [Titer] <1:20 titer Neg:<1:20 [facility] Comment on above: The presence of posi tive fluorescence exhibiting P-ANCA orC-ANCA patterns alone is not specific for the diagnosis ofWegener's Granulomatosis (WG) or microscopic polyangiitis.Decisions about treatment should not be based solely onANCA IFA results. The [employer] ANCA Group Consensusrecommends follow up testing of positive sera with both MN-3 and MPO-ANCA enzyme immunoassays. As many as 5% serumsamples are positive only by EIA. Ref. AM J Clin Ckpocf1862;111:507-513. Serum rheumatoid factor dete ctionOrdered By: Gerard Pereyra on 01-30-2023 Rheumatoid factor Ql (S) < 10.0 IU/mL <15 [facility] Thin prep Papanicolaou smear with manual screeningOrdered By: Gerard Pereyra on 01-30-2023 Thin prep Papanicolaou smear with manual screening 14 U/L 15-37 [facility] Absolute lymphocyte countOrd ered By: Kenney Vizcarra on 01-25-2023 Lymphocytes Auto (Unsp spec) [#/Vol] 1.55 10*3/uL 0.83-4.51 [facility] Basophil percentageOrdered B y: Kenney Vizcarra on 01-25-2023 Basophils/100 WBC (Bld) 0.5 % 0-1 [facility] Chloride [Moles/Vol] 104 mmol/L 98-107 [facility] Eosinophils/100 WBC (Bld) 2.7 % 0-5 [facility] Glucose [Mass/Vol] 137 mg/dL 74-106 [facility] Comment on above: Fasting Glucose resu lt greater than or equal to 126 mg/dL suggests DIABETES MELLITUS per A.D.A. criteria. Neutrophils (Bld) [#/Vol] 7.3 10*3/uL 2.0-7.7 [facility] Neutrophils/100 WBC (Bld) 69.2 % 47-70 [facility] Potassium [Moles/Vol] 4.0 mmol/L 3.5-5.1 [facility] Sodium [Moles/Vol] 139 mmol/L 136-145 [facility] WBC (Bld) [#/Vol] 10.5 10*3/uL 4.4-11.0 [facility] Blood erythrocytes count (nu mber/volume)Ordered By: Kenney Vizcarra on 01-25-2023 RBC (Bld) [#/Vol] 3.55 10*6/uL 4.2-5.4 [facility] Blood hemoglobin measurement (mass/volume)Ordered By: Kenney Vizcarra on 01-25-2023 Hemoglobin (Bld) [Mass/Vol] 10.9 g/dL 12.0-15. 0 [facility] Blood lymphocytes/100 leukoc ytesOrdered By: Kenney Vizcarra on 01-25-2023 Lymphocytes/100 WBC (Bld) 14.7 % 19-41 [facility] Blood monocytes/100 leukocyt esOrdered By: Kenney Vizcarra on 01-25-2023 Monocytes/100 WBC (Bld) 9.6 % 0-10 [facility] Blood platelet mean volumeOr dered By: Kenney Vizcarra on 01-25-2023 Platelet mean volume (Bld) [Entitic vol] 9.4 fL 6.2-12.0 [facility] Determination of erythrocyte mean corpuscular volume (MCV)Ordered By: Kenney Vizcarra on 01-25-2023 MCV (RBC) [Entitic vol] 95.2 fL 81-99 [facility] Glucose Glucometer (BldC) [M ass/Vol]Ordered By: Neymar Masters on 01-25-2023 Glucose [Mass/Vol] 177 mg/dL 74-106 [facility] Comment on above: MANAGEMENT OF PATIEN T CARE PER NURSING PROTOCOL Hematocrit Auto (Bld) [Volum e fraction]Ordered By: Kenney Vizcarra on 01-25-2023 Hematocrit (Bld) [Volume fraction] 33.8 % 37-47 [facility] INR in Blood by Coagulation assayOrdered By: Kenney Vizcarra on 01-25-2023 INR Coag (Bld) [Relative time] 1.4 {INR} [facility] Laboratory - Chemistry and C hemistry - challengeOrdered By: Keneny Vizcarra on 01-25-2023 CO2 [Moles/Vol] 30.0 mmol/L 21.0-32.0 [facility] Urea nitrogen/Creatinine [Mass ratio] 18.3 mg/mg 10-20 [facility] Laboratory - CoagulationOrde red By: Kenney Vizcarra on 01-25-2023 PT Coag (PPP) [Time] 16.9 s 11.7-14.9 [facility] Laboratory - Hematology and Cell countsOrdered By: Kenney Vizcarra on 01-25-2023 Erythrocyte distribution width (RBC) [Entitic vol] 47.3 fL 35.1-43.9 [facility] Erythrocyte distribution width (RBC) [Ratio] 13.3 % 11.6-14.6 [facility] Immature granulocytes/100 WBC (Bld) 3.300 % 0.0-0.9 [facility] Comment on above: IG% - Immature Granu locytes (promyelocytes, myelocytes and metamyelocytes) > 1% indicates that a LEFT SHIFT is Present. MCH (RBC) [Entitic mass] 30.7 pg 27.0-32.0 [facility] Nucleated RBC/100 WBC (Bld) [Ratio] 0 % 0-5 [facility] MCHC Auto (RBC) [Mass/Vol]Or dered By: Kenney Vizcarra on 01-25-2023 MCHC (RBC) [Mass/Vol] 32.2 g/dL 32-36 [facility] No Panel InformationOrdered By: Kenney Vizcarra on 01-25-2023 Estimated Creatinine Clearance Calc 49.80 ml/min [facility] Estimated GFR (MDRD) Amer 106 mL/min >60 [facility] Comment on above: GFR Calc Estimated GFR (MDRD) Non-Af Amer 88 mL/min >60 [facility] Comment on above: Non- GFR Calc Platelets bldOrdered By: Brian Vizcarra on 01-25-2023 Platelets (Bld) [#/Vol] 359 10*3/uL 150-450 [facility] Serum or plasma calcium jatin urement (mass/volume)Ordered By: Kenney Vizcarra on 01-25-2023 Calcium [Mass/Vol] 8.4 mg/dL 8.5-10.1 [facility] Serum or plasma creatinine m easurement (mass/volume)Ordered By: Kenney Vizcarra on 01-25-2023 Creatinine [Mass/Vol] 0.71 mg/dL 0.55-1.02 [facility] Comment on above: The validity of the calculated GFR & GFRAA in patients over 70 years has not been determined. Clinical correlation is essential. Serum or plasma urea nitroge n measurement (mass/volume)Ordered By: Kenney Vizcarra on 01-25-2023 Urea nitrogen [Mass/Vol] 13 mg/dL 7-18 [facility] Thin prep Papanicolaou smear with manual screeningOrdered By: Kenney Vizcarra on 01-25-2023 Thin prep Papanicolaou smear with manual screening 5 5-15 [facility] Anaerobic cultureOrdered By: Kenney Vizcarra on 01-24-2023 Bacteria identified Anaer cx Nom (Unsp spec) No growth in 5 days. [facility] Bacterial body fluid culture Ordered By: Kenney Vizcarra on 01-24-2023 Bacteria identified Cx Nom (Body fld) No growth aerobically. [facility] Basophil percentageOrdered B y: Kenney Vizcarra on 01-24-2023 LDH [Catalytic activity/Vol] 159 U/L 84-246 [facility] Body fluid appearanceOrdered By: Kenney Vizcarra on 01-24-2023 Appearance (Body fld) SL CLDY [facility] Body fluid color determinati onOrdered By: Kenney Vizcarra on 01-24-2023 Color (Body fld) LT YEL [facility] Body fluid erythrocytes coun t (number/volume)Ordered By: Kenney Vizcarra on 01-24-2023 RBC (Body fld) [#/Vol] 3 10*3/uL [facility] Body fluid lactate dehydroge nase measurement (enzymatic activity/volume) by pyruvateOrdered By: Kenney Vizcarra on 01-24-2023 LDH Pyruvate to lactate reaction (Body fld) [Catalytic activity/Vol] 669 Units/l Not Establ. [facility] Body fluid leukocytes count (number/volume)Ordered By: Kenney Vizcarra on 01-24-2023 WBC (Body fld) [#/Vol] 1.476 10*3/uL [facility] Body fluid protein measureme nt (mass/volume)Ordered By: Kenney Vizcarra on 01-24-2023 Protein (Body fld) [Mass/Vol] 4.0 g/dL Not Establ. [facility] Gram stain for investigation of transfusion reactionOrdered By: Kenney Vizcarra on 01-24-2023 Microscopic observation Gram stain Nom (Unsp spec) [facility] Mononuclear cells Auto (Body fld) [#/Vol]Ordered By: Kenney Vizcarra on 01-24-2023 Mononuclear cells (Body fld) [#/Vol] 0.403 10*3/uL [facility] No Panel InformationOrdered By: Kenney Vizcarra on 01-24-2023 Body Fluid Comment 2 SEE COMMENT [facility] Body Fluid Mononuclear WBCs (%) 27.3 % [facility] Body Fluid Pathologist Comment May follow [facility] Body Fluid Pathologist Comment Reviewed [facility] Comment on above: Previous reported re sult: May follow Edited by: HILARY on 01/26/23:1019Negative for malignant cells.Acute inflammation.Gonzalez Benavidez M.D. 01/26/23 AMENDED REPORT 01/26/23 1019 PATH COMM/BF previously reported as: May follow Body Fluid Polynuclear WBCs (#) 1.073 10^3/uL [facility] Body Fluid Polynuclear WBCs (%) 72.7 % [facility] Body Fluid Glucose 126 mg/dL 40-70 [facility] Body Fluid Glucose 124 mg/dL 40-70 [facility] Comment on above: Previous reported re sult: 126 mg/dLEdited by: MARCIA on 01/31/23:1554 AMENDED REPORT 01/31/23 1554 GLU,BF previously reported as: 126 H mg/dL Specimen source identificati on of body fluidOrdered By: Kenney Vizcarra on 01-24-2023 Specimen source Nom (Body fld) THORACENTESIS [facility] Total cell countOrdered By: Kenney Vizcarra on 01-24-2023 Cells counted Molgen (Bld/Tiss) [#] 1.476 10^3/ul 0.000-0.000 [facility] Comment on above: This is the Total Nu mber of Nucleated Cell Types in the Body Fluid. Absolute lymphocyte countOrd ered By: Max Lara on 01-23-2023 Lymphocytes Auto (Unsp spec) [#/Vol] 1.10 10*3/uL 0.83-4.51 [facility] Basophil percentageOrdered B y: Max Lara on 01-23-2023 Basophils/100 WBC (Bld) 0.5 % 0-1 [facility] Bilirubin [Mass/Vol] 0.20 mg/dL 0.20-1.00 [facility] Comment on above: For patients on eltr ombopag therapy, use of Dimension [place] TBIL is not recommended. Chloride [Moles/Vol] 103 mmol/L 98-107 [facility] Eosinophils/100 WBC (Bld) 1.9 % 0-5 [facility] Glucose [Mass/Vol] 258 mg/dL 74-106 [facility] Comment on above: Glucose result great er than or equal to 200 mg/dLsuggests DIABETES MELLITUS per A.D.A. criteria. Lactate [Moles/Vol] 1.6 mmol/L 0.4-2.0 [facility] Neutrophils (Bld) [#/Vol] 7.5 10*3/uL 2.0-7.7 [facility] Neutrophils/100 WBC (Bld) 77.1 % 47-70 [facility] Potassium [Moles/Vol] 3.9 mmol/L 3.5-5.1 [facility] Protein [Mass/Vol] 6.8 g/dL 6.4-8.2 [facility] Sodium [Moles/Vol] 135 mmol/L 136-145 [facility] WBC (Bld) [#/Vol] 9.8 10*3/uL 4.4-11.0 [facility] Blood erythrocytes count (nu mber/volume)Ordered By: Max Lara on 01-23-2023 RBC (Bld) [#/Vol] 3.38 10*6/uL 4.2-5.4 [facility] Blood hemoglobin measurement (mass/volume)Ordered By: Max Lara on 01-23-2023 Hemoglobin (Bld) [Mass/Vol] 10.4 g/dL 12.0-15. 0 [facility] Blood lymphocytes/100 leukoc ytesOrdered By: Max Lara on 01-23-2023 Lymphocytes/100 WBC (Bld) 11.3 % 19-41 [facility] Blood monocytes/100 leukocyt esOrdered By: Max Lara on 01-23-2023 Monocytes/100 WBC (Bld) 8.5 % 0-10 [facility] Blood platelet mean volumeOr dered By: Max Lara on 01-23-2023 Platelet mean volume (Bld) [Entitic vol] 9.4 fL 6.2-12.0 [facility] Determination of erythrocyte mean corpuscular volume (MCV)Ordered By: Max Lara on 01-23-2023 MCV (RBC) [Entitic vol] 95.0 fL 81-99 [facility] Direct bilirubinOrdered By: Max Lara on 01-23-2023 Bilirubin.direct [Mass/Vol] 0.12 mg/dL 0.00-0.3 0 [facility] Hematocrit Auto (Bld) [Volum e fraction]Ordered By: Max Lara on 01-23-2023 Hematocrit (Bld) [Volume fraction] 32.1 % 37-47 [facility] INR in Blood by Coagulation assayOrdered By: Max Lara on 01-23-2023 INR Coag (Bld) [Relative time] 3.0 {INR} [facility] Influenza virus A and B and SARS-CoV-2 (COVID-19) Ag panel - Upper respiratory specimOrdered By: Max Lara on 01-23-2023 SARS-CoV-2 (COVID-19) RNA SEEMA+probe Ql (Resp) [facility] Laboratory - Chemistry and C hemistry - challengeOrdered By: Max Lara on 01-23-2023 ALP [Catalytic activity/Vol] 67 U/L 45-117 [facility] ALT [Catalytic activity/Vol] 15 U/L 13-56 [facility] CO2 [Moles/Vol] 27.0 mmol/L 21.0-32.0 [facility] Globulin (S) [Mass/Vol] 4.4 g/dL 2.2-4.2 [facility] Urea nitrogen/Creatinine [Mass ratio] 24.6 mg/mg 10-20 [facility] Laboratory - CoagulationOrde red By: Max Lara on 01-23-2023 aPTT Coag (Bld) [Time] 80.7 s 24.1-36.2 [facility] PT Coag (PPP) [Time] 31.5 s 11.7-14.9 [facility] Laboratory - Hematology and Cell countsOrdered By: Max Lara on 01-23-2023 Erythrocyte distribution width (RBC) [Entitic vol] 47.4 fL 35.1-43.9 [facility] Erythrocyte distribution width (RBC) [Ratio] 13.6 % 11.6-14.6 [facility] Immature granulocytes/100 WBC (Bld) 0.700 % 0.0-0.9 [facility] Comment on above: IG% - Immature Granu locytes (promyelocytes, myelocytes and metamyelocytes) > 1% indicates that a LEFT SHIFT is Present. MCH (RBC) [Entitic mass] 30.8 pg 27.0-32.0 [facility] Nucleated RBC/100 WBC (Bld) [Ratio] 0 % 0-5 [facility] MCHC Auto (RBC) [Mass/Vol]Or dered By: Max Lara on 01-23-2023 MCHC (RBC) [Mass/Vol] 32.4 g/dL 32-36 [facility] No Panel InformationOrdered By: Max Lara on 01-23-2023 Estimated Creatinine Clearance Calc 57.90 ml/min [facility] Estimated GFR (MDRD) Amer 85 mL/min >60 [facility] Comment on above: GFR Calc Estimated GFR (MDRD) Non-Af Amer 71 mL/min >60 [facility] Comment on above: Non- GFR Calc Platelets bldOrdered By: Felix Lara on 01-23-2023 Platelets (Bld) [#/Vol] 293 10*3/uL 150-450 [facility] Serum or plasma albumin jatin urement (mass/volume)Ordered By: Max Lara on 01-23-2023 Albumin [Mass/Vol] 2.4 g/dL 3.2-5.0 [facility] Serum or plasma calcium jatin urement (mass/volume)Ordered By: Max Lara on 01-23-2023 Calcium [Mass/Vol] 8.4 mg/dL 8.5-10.1 [facility] Serum or plasma creatinine m easurement (mass/volume)Ordered By: Max Lara on 01-23-2023 Creatinine [Mass/Vol] 0.86 mg/dL 0.55-1.02 [facility] Comment on above: The validity of the calculated GFR & GFRAA in patients over 70 years has not been determined. Clinical correlation is essential. Serum or plasma urea nitroge n measurement (mass/volume)Ordered By: Max Lara on 01-23-2023 Urea nitrogen [Mass/Vol] 21 mg/dL 7-18 [facility] Thin prep Papanicolaou smear with manual screeningOrdered By: Max Lara on 01-23-2023 Thin prep Papanicolaou smear with manual screening 9 U/L 15-37 [facility] Thin prep Papanicolaou smear with manual screening 5 5-15 [facility] Absolute lymphocyte countOrd ered By: Osiris Arana on 01-20-2023 Lymphocytes Auto (Unsp spec) [#/Vol] 2.12 10*3/uL 0.83-4.51 [facility] Basophil percentageOrdered B y: Osiris Arana on 01-20-2023 Basophils/100 WBC (Bld) 0.3 % 0-1 [facility] Chloride [Moles/Vol] 106 mmol/L 98-107 [facility] Eosinophils/100 WBC (Bld) 0.6 % 0-5 [facility] Glucose [Mass/Vol] 112 mg/dL 74-106 [facility] Comment on above: Fasting Glucose resu lt from 100 to 125 mg/dL suggests IMPAIRED HOMEOSTASIS per A.D.A. criteria. Neutrophils (Bld) [#/Vol] 7.2 10*3/uL 2.0-7.7 [facility] Neutrophils/100 WBC (Bld) 68.6 % 47-70 [facility] Potassium [Moles/Vol] 4.5 mmol/L 3.5-5.1 [facility] Sodium [Moles/Vol] 138 mmol/L 136-145 [facility] WBC (Bld) [#/Vol] 10.5 10*3/uL 4.4-11.0 [facility] Blood erythrocytes count (nu mber/volume)Ordered By: Osiris Arana on 01-20-2023 RBC (Bld) [#/Vol] 3.61 10*6/uL 4.2-5.4 [facility] Blood hemoglobin measurement (mass/volume)Ordered By: Osiris Arana on 01-20-2023 Hemoglobin (Bld) [Mass/Vol] 11.3 g/dL 12.0-15. 0 [facility] Blood lymphocytes/100 leukoc ytesOrdered By: Osiris Arana on 01-20-2023 Lymphocytes/100 WBC (Bld) 20.2 % 19-41 [facility] Blood monocytes/100 leukocyt esOrdered By: Osiris Arana on 01-20-2023 Monocytes/100 WBC (Bld) 9.0 % 0-10 [facility] Blood platelet mean volumeOr dered By: Osiris Arana on 01-20-2023 Platelet mean volume (Bld) [Entitic vol] 10.1 fL 6.2-12.0 [facility] Determination of erythrocyte mean corpuscular volume (MCV)Ordered By: Osiris Arana on 01-20-2023 MCV (RBC) [Entitic vol] 95.8 fL 81-99 [facility] Hematocrit Auto (Bld) [Volum e fraction]Ordered By: Osiris Arana on 01-20-2023 Hematocrit (Bld) [Volume fraction] 34.6 % 37-47 [facility] INR in Blood by Coagulation assayOrdered By: Osiris Arana on 01-20-2023 INR Coag (Bld) [Relative time] 2.3 {INR} [facility] Laboratory - Chemistry and C hemistry - challengeOrdered By: Osiris Arana on 01-20-2023 CO2 [Moles/Vol] 29.0 mmol/L 21.0-32.0 [facility] Urea nitrogen/Creatinine [Mass ratio] 30.4 mg/mg 10-20 [facility] Laboratory - CoagulationOrde red By: Osiris Arana on 01-20-2023 PT Coag (PPP) [Time] 25.5 s 11.7-14.9 [facility] Laboratory - Hematology and Cell countsOrdered By: Osiris Arana on 01-20-2023 Erythrocyte distribution width (RBC) [Entitic vol] 49.1 fL 35.1-43.9 [facility] Erythrocyte distribution width (RBC) [Ratio] 13.9 % 11.6-14.6 [facility] Immature granulocytes/100 WBC (Bld) 1.300 % 0.0-0.9 [facility] Comment on above: IG% - Immature Granu locytes (promyelocytes, myelocytes and metamyelocytes) > 1% indicates that a LEFT SHIFT is Present. MCH (RBC) [Entitic mass] 31.3 pg 27.0-32.0 [facility] Nucleated RBC/100 WBC (Bld) [Ratio] 0 % 0-5 [facility] MCHC Auto (RBC) [Mass/Vol]Or dered By: Osiris Arana on 01-20-2023 MCHC (RBC) [Mass/Vol] 32.7 g/dL 32-36 [facility] No Panel InformationOrdered By: Osiris Arana on 01-20-2023 Estimated Creatinine Clearance Calc 43.30 ml/min [facility] Estimated GFR (MDRD) Amer 61 mL/min >60 [facility] Comment on above: GFR Calc Estimated GFR (MDRD) Non-Af Amer 50 mL/min >60 [facility] Comment on above: Non- GFR Calc Troponin I High Sensitivity < 3 pg/mL 3.0-54.0 [facility] Comment on above: Please Note: New Arti t Units and Gender Specific Reference Ranges. For more information see Policy Stat Procedure [place] High Sensitivity Troponin (TNIH) and attachments. Platelets bldOrdered By: Anastacia Arana on 01-20-2023 Platelets (Bld) [#/Vol] 262 10*3/uL 150-450 [facility] Serum or plasma calcium jatin urement (mass/volume)Ordered By: Osiris Arana on 01-20-2023 Calcium [Mass/Vol] 9.0 mg/dL 8.5-10.1 [facility] Serum or plasma creatinine m easurement (mass/volume)Ordered By: Osiris Arana on 01-20-2023 Creatinine [Mass/Vol] 1.15 mg/dL 0.55-1.02 [facility] Comment on above: The validity of the calculated GFR & GFRAA in patients over 70 years has not been determined. Clinical correlation is essential. Serum or plasma urea nitroge n measurement (mass/volume)Ordered By: Osiris Arana on 01-20-2023 Urea nitrogen [Mass/Vol] 35 mg/dL 7-18 [facility] Thin prep Papanicolaou smear with manual screeningOrdered By: Osiris Arana on 01-20-2023 Thin prep Papanicolaou smear with manual screening 3 5-15 [facility] Albumin Elph [Mass/Vol]Order ed By: Dr. Rasmussen on 12-25-2022 Albumin [Mass/Vol] 3.4 g/dL 2.9-4.4 [facility] Interpretation of serum or p lasma protein pattern by immunofixation (narrative resultOrdered By: Dr. Rasmussen on 12-25-2022 Protein Fractions Immunofixation Arnav [Interp] See comment [facility] Comment on above: Due to the small yelena ntity of monoclonal protein, unable toquantitate the M-spike. No Panel InformationOrdered By: Dr. Rasmussen on 12-25-2022 Addendum Document Comment . [facility] Comment on above: Protein electrophore sis scan will follow via computer,mail, or chrome polisher delivery.Performed at: [address] [id number] Director: Herb Kincaid PhD, Phone: [phone] Thyroid Stimulating Hormone (TSH) 0.81 uIU/mL 0.358-3.74 [facility] Serum pdpzo-4-ufvxdphm measu rement by electrophoresisOrdered By: Dr. Rasmussen on 12-25-2022 Alpha 1 globulin Elph [Mass/Vol] 0.2 g/dL 0.0-0.4 [facility] Alpha 1 globulin Elph [Mass/Vol] 0.9 g/dL 0.4-1.0 [facility] Serum globulin measurement ( mass/volume)Ordered By: Dr. Rasmussen on 12-25-2022 Globulin (S) [Mass/Vol] 3.2 g/dL 2.2-3.9 [facility] Serum or plasma IgA measurem ent (mass/volume)Ordered By: Dr. Rasmussen on 12-25-2022 IgA [Mass/Vol] 157 mg/dL 87-352 [facility] Serum or plasma IgG measurem ent (mass/volume)Ordered By: Dr. Rasmussen on 12-25-2022 IgG [Mass/Vol] 1074 mg/dL 586-1602 [facility] Serum or plasma IgM measurem ent (mass/volume)Ordered By: Dr. Rasmussen on 12-25-2022 IgM [Mass/Vol] 96 mg/dL 26-217 [facility] Serum or plasma beta globuli n measurement by electrophoresis (mass/volume)Ordered By: Dr. Rasmussen on 12-25-2022 Beta globulin Elph [Mass/Vol] 1.0 g/dL 0.7-1.3 [facility] Serum or plasma folate measu rement (mass/volume)Ordered By: Dr. Rasmussen on 12-25-2022 Folate [Mass/Vol] 18.90 ng/mL 3.1-55.4 [facility] Serum or plasma gamma globul in measurement by electrophoresis (mass/volume)Ordered By: Dr. Rasmussen on 12-25-2022 Gamma globulin Elph [Mass/Vol] 1.0 g/dL 0.4-1.8 [facility] Serum or plasma immunoelectr ophoresis interpretation (nominal result)Ordered By: Dr. Rasmussen on 12-25-2022 Interpretation IEP [Interp] Comment . [facility] Comment on above: Immunofixation shows IgG monoclonal protein with lambdalight chain specificity. Thin prep Papanicolaou smear with manual screeningOrdered By: Dr. Rasmussen on 12-25-2022 Thin prep Papanicolaou smear with manual screening 1.1 0.7-1.7 [facility] Total protein bloodOrdered B y: Dr. Rasmussen on 12-25-2022 Protein [Mass/Vol] 6.6 g/dL 6.0-8.5 [facility] Basophil percentageOrdered B y: Dr. Rasmussen on 11-06-2022 WBC (Bld) [#/Vol] 8.5 10*3/uL 4.4-11.0 [facility] Blood erythrocytes count (nu mber/volume)Ordered By: Dr. Rsamussen on 11-06-2022 RBC (Bld) [#/Vol] 4.00 10*6/uL 4.2-5.4 [facility] Blood hemoglobin measurement (mass/volume)Ordered By: Dr. Rasmussen on 11-06-2022 Hemoglobin (Bld) [Mass/Vol] 12.5 g/dL 12.0-15. 0 [facility] Blood platelet mean volumeOr dered By: Dr. Rasmussen on 11-06-2022 Platelet mean volume (Bld) [Entitic vol] 10.4 fL 6.2-12.0 [facility] Determination of erythrocyte mean corpuscular volume (MCV)Ordered By: Dr. Rasmussen on 11-06-2022 MCV (RBC) [Entitic vol] 96.3 fL 81-99 [facility] Hematocrit Auto (Bld) [Volum e fraction]Ordered By: Dr. Rasmussen on 11-06-2022 Hematocrit (Bld) [Volume fraction] 38.5 % 37-47 [facility] Iron measurement (mass/mass) Ordered By: Dr. Rasmussen on 11-06-2022 Iron (Unsp spec) [Mass/Mass] 58 ug/dL 50-170 [facility] Laboratory - Hematology and Cell countsOrdered By: Dr. Rasmussen on 11-06-2022 Erythrocyte distribution width (RBC) [Entitic vol] 47.3 fL 35.1-43.9 [facility] Erythrocyte distribution width (RBC) [Ratio] 13.2 % 11.6-14.6 [facility] MCH (RBC) [Entitic mass] 31.3 pg 27.0-32.0 [facility] MCHC Auto (RBC) [Mass/Vol]Or dered By: Dr. Rasmussen on 11-06-2022 MCHC (RBC) [Mass/Vol] 32.5 g/dL 32-36 [facility] Platelets bldOrdered By: Dr. Rasmussen on 11-06-2022 Platelets (Bld) [#/Vol] 288 10*3/uL 150-450 [facility] Serum or plasma ferritin karina surement (mass/volume)Ordered By: Dr. Rasmussen on 11-06-2022 Ferritin [Mass/Vol] 143 ng/mL 8-252 [facility] Albumin Elph [Mass/Vol]Order ed By: Dr. Rasmussen on 08-31-2022 Albumin [Mass/Vol] 3.4 g/dL 2.9-4.4 [facility] Basophil percentageOrdered B y: Dr. Rasmussen on 08-31-2022 Basophil percentage Comment . [facility] Comment on above: No monoclonality det ected.Performed at: [facility] [employer] [address] [id number] Director: Herb Kincaid PhD, Phone: [phone] at: - [facility] [employer] [address] [id number] Director: Kimberly Langford MD, Phone: [phone] Interpretation of serum or p lasma protein pattern by immunofixation (narrative resultOrdered By: Dr. Rasmussen on 08-31-2022 Protein Fractions Immunofixation Arnav [Interp] See comment [facility] Comment on above: NOT OBSERVED No Panel InformationOrdered By: Dr. Rasmussen on 08-31-2022 Addendum Document Comment . [facility] Comment on above: Protein electrophore sis scan will follow via computer,mail, or chrome polisher delivery. Free Lambda Light Chains, Quant 27.3 mg/L 5.7-26.3 [facility] Whole Blood Vitamin B1 Level 191.0 nmol/L 66.5-200.0 [facility] Serum [id number] measu rement by electrophoresisOrdered By: Dr. Rasmussen on 08-31-2022 Alpha 1 globulin Elph [Mass/Vol] 0.3 g/dL 0.0-0.4 [facility] Alpha 1 globulin Elph [Mass/Vol] 0.9 g/dL 0.4-1.0 [facility] Serum globulin measurement ( mass/volume)Ordered By: Dr. Rasmussen on 08-31-2022 Globulin (S) [Mass/Vol] 3.5 g/dL 2.2-3.9 [facility] Serum immunoglobulin kappa l ight chains/immunoglobulin lambda light chains mass ratioOrdered By: Dr. Rasmussen on 08-31-2022 Immunoglobulin light chains.kappa/Immunoglobulin light chains.lambda (S) [Mass ratio] 1.47 0.26-1.65 [facility] Serum or plasma IgA measurem ent (mass/volume)Ordered By: Dr. Rasmussen on 08-31-2022 IgA [Mass/Vol] 184 mg/dL 87-352 [facility] Serum or plasma IgG measurem ent (mass/volume)Ordered By: Dr. Rasmussen on 08-31-2022 IgG [Mass/Vol] 1167 mg/dL 586-1602 [facility] Serum or plasma IgM measurem ent (mass/volume)Ordered By: Dr. Rasmussen on 08-31-2022 IgM [Mass/Vol] 103 mg/dL 26-217 [facility] Serum or plasma beta globuli n measurement by electrophoresis (mass/volume)Ordered By: Dr. Rasmussen on 08-31-2022 Beta globulin Elph [Mass/Vol] 1.0 g/dL 0.7-1.3 [facility] Serum or plasma gamma globul in measurement by electrophoresis (mass/volume)Ordered By: Dr. Rasmussen on 08-31-2022 Gamma globulin Elph [Mass/Vol] 1.3 g/dL 0.4-1.8 [facility] Serum or plasma immunoelectr ophoresis interpretation (nominal result)Ordered By: Dr. Rasmussen on 08-31-2022 Interpretation IEP [Interp] Comment: . [facility] Comment on above: Presence of monoclon al protein is unclear at this time. Suggestrepeat in 3 to 6 months if clinically indicated. Serum or plasma immunoglobul in kappa light chains measurement (mass/volume)Ordered By: Dr. Rasmussen on 08-31-2022 Immunoglobulin light chains.kappa [Mass/Vol] 40.0 mg/L 3.3-19.4 [facility] Thin prep Papanicolaou smear with manual screeningOrdered By: Dr. Rasmussen on 08-31-2022 Thin prep Papanicolaou smear with manual screening 1.0 0.7-1.7 [facility] Total protein bloodOrdered B y: Dr. Rasmussen on 08-31-2022 Protein [Mass/Vol] 6.9 g/dL 6.0-8.5 [facility] Basophil percentageOrdered B y: Dr. Rasmussen on 07-24-2022 Basophil percentage < 0.9 mg/dL 0.55-1.02 [facility] No Panel InformationOrdered By: Dr. Rasmussen on 07-24-2022 Bedside Estimated GFR (eGFR) > 60.0000 mL/min >60 [facility] ANES POSTPROC EVALon 022 ANES POSTPROC EVAL HNO ID: [id number] Author: Osiris Kim MD Service: ? Author Type: Anesthesiologist Type: Anesthesia Postprocedure Evaluation Filed: 06/28/2022 1:23 PM Note Text: POST ANESTHESIA EVALUATION NOTE : 1955 Procedure Summary Date: 06/28/22 Room / Location: [facility] Endoscopy Anesthesia Start: 1132 Anesthesia Stop: 1221 Procedure: COLONOSCOPY SCREENING Diagnosis: History of colonic polyps (High risk colon cancer surveillance: Personal history of colonic polyps) Scheduled Providers: Asad Guerin MD; Nuris Lazcano APRN.RAIL EQUIPMENT OPERATOR; Osiris Kim MD Responsible Provider: Osiris Kim [...] June 28, 2022 TIME: 1:23 PM CSN: [id number] Normal [facility] ANES PRE-OPon 06-28-2022 ANES PRE-OP HNO ID: [id number] Author: Osiris Kim MD Service: ? Author Type: Anesthesiologist Type: Anesthesia Preprocedure Evaluation Filed: 06/28/2022 10:52 AM Note Text: ANESTHESIOLOGY DAY OF SURGERY NOTE : 1955 Procedure Information Date/Time: 06/28/22 1300 Scheduled providers: Asad Guerin MD; Nuris Lazcano APRN.RAIL EQUIPMENT OPERATOR; Osiris Kim MD Procedure: COLONOSCOPY SCREENING Location: [facility] Estimated body mass index is [...] and consent discussed: yes. Patient / Responsible Republican agrees to proceed: yes Patient / Surrogate [...] June 28, 2022 TIME: 10:50 AM CSN: [id number] Normal [facility] COLONOSCOPY SCREENINGon 12-0 [facility] Colonoscopyon 06-28-2022 Colonoscopy [facility] Gastrointestinal Endoscopy Patient Name: Art Blue Procedure Date: 06/28/2022 11:25 AM Date of : 1955 Admit Type: Outpatient Age: 66 Room: [facility] Gender: Female Note Status: Finalized Attending MD: [...] prior dose. Procedure Code(s): --- Professional --- 72360, 53, Colonoscopy, flexible; diagnostic, including collection of specimen(s) by brushing or washing, when performed (separate procedure) Diagnosis Code(s): --- Professional --- Z12.11, Encounter for screening for malignant neoplasm of colon Z86.010, Personal history of colonic polyps K57.30, Diverticulosis of large intestine without perforation or abscess without bleeding CPT copyright 2020 [employer]. All rights reserved. The codes documented in this report are preliminary and upon cover marker review may be revised to meet current compliance requirements. Attending Participation: I personally performed the entire procedure. Scope In: 11:38:38 AM Scope Out: 12:12:58 PM MD Asad Carrillo MD 06/28/2022 12:22:59 PM This report has been signed electronically by Asad Guerin MD Number of Addenda: 0 Note Initiated On: 06/28/2022 11:25 AM Estimated Blood Loss: Estimated blood loss: none. Normal [facility] GLUCOSE, BLOOD (POC)on 06-28 Glucose [Mass/Vol] 122 mg/dL Abnormal 74 - 99 mg/dL [facility] HISTORY PHYSICALon HISTORY PHYSICAL HNO ID: [id number] Author: Asad Guerin MD Service: General Surgery [...] colonoscopy with Dr. Guerin in 2016 at [facility] which was incomplete. Per operative report, [...] entered by the nurse and reviewed by me Nursing Notes: Em Park RN 04/28/2022 11:01 AM Signed REVIEW OF SYSTEMS: General: The patient NOTES fatigue, denies weight loss, denies weight gain, NOTES feeling hot, and denies feelings of (more content not included)... [facility] XR COLON ROUTINE DOUBLE CONT Kin 06-28-2022 XR COLON ROUTINE DOUBLE CONTRAST * [...] mGy*cm^2 Fluoro time: 2:19 min:sec FINDINGS: The polygraph technician image demonstrates a large amount of colonic [...] stricture is seen. IMPRESSION: Mild colonic diverticulosis. Investment Underwriter: [facility] Transcribe Date/Time: Jun 28 2022 4:25P Dictated by : RAMONITA GONZALEZ MD This examination was interpreted and the report reviewed and electronically signed by: RAMONITA GONZALEZ MD on Jun 28 2022 4:29PM EST [id number] [facility] Absolute lymphocyte countOrd ered By: Dr. Almanzar on 06-08-2022 Lymphocytes Auto (Unsp spec) [#/Vol] 2.62 10*3/uL 0.83-4.51 [facility] Basophil percentageOrdered B y: Dr. Almanzar on 06-08-2022 Basophil percentage 3.0 mg/dL 2.5-4.9 [facility] Basophils/100 WBC (Bld) 0.5 % 0-1 [facility] Bilirubin [Mass/Vol] 0.30 mg/dL 0.20-1.00 [facility] Comment on above: For patients on eltr ombopag therapy, use of Dim[place] TBIL is not recommended. Chloride [Moles/Vol] 104 mmol/L 98-107 [facility] Cholesterol [Mass/Vol] 203 mg/dL <200 [facility] Comment on above: <200 mg/dL Desirable 200-240 mg/dL Borderline >240 mg/dL High Risk Eosinophils/100 WBC (Bld) 1.9 % 0-5 [facility] Glucose [Mass/Vol] 139 mg/dL 74-106 [facility] Comment on above: Fasting Glucose resu lt greater than or equal to 126 mg/dL suggests DIABETES MELLITUS per A.D.A. criteria. Neutrophils (Bld) [#/Vol] 4.2 10*3/uL 2.0-7.7 [facility] Neutrophils/100 WBC (Bld) 55.5 % 47-70 [facility] Potassium [Moles/Vol] 3.6 mmol/L 3.5-5.1 [facility] Protein [Mass/Vol] 7.6 g/dL 6.4-8.2 [facility] Sodium [Moles/Vol] 138 mmol/L 136-145 [facility] Triglyceride [Mass/Vol] 168 mg/dL <199 [facility] Comment on above: The drugs N-Acetylcy steine and Metamizole may falsely depress this assay.Serum Triglycerides Reference Interval Normal <150 mg/dL Borderline high 150 - 199 mg/dL High 200 - 499 mg/dL Very High > or = 500 mg/dL WBC (Bld) [#/Vol] 7.5 10*3/uL 4.4-11.0 [facility] Blood erythrocytes count (nu mber/volume)Ordered By: Dr. Almanzar on 06-08-2022 RBC (Bld) [#/Vol] 4.14 10*6/uL 4.2-5.4 [facility] Blood hemoglobin measurement (mass/volume)Ordered By: Dr. Almanzar on 06-08-2022 Hemoglobin (Bld) [Mass/Vol] 12.5 g/dL 12.0-15. 0 [facility] Blood lymphocytes/100 leukoc ytesOrdered By: Dr. Almanzar on 06-08-2022 Lymphocytes/100 WBC (Bld) 34.7 % 19-41 [facility] Blood monocytes/100 leukocyt esOrdered By: Dr. Almanzar on 06-08-2022 Monocytes/100 WBC (Bld) 7.0 % 0-10 [facility] Blood platelet mean volumeOr dered By: Dr. Almanzar on 06-08-2022 Platelet mean volume (Bld) [Entitic vol] 10.5 fL 6.2-12.0 [facility] Determination of erythrocyte mean corpuscular volume (MCV)Ordered By: Dr. Almanzar on 06-08-2022 MCV (RBC) [Entitic vol] 94.0 fL 81-99 [facility] Hematocrit Auto (Bld) [Volum e fraction]Ordered By: Dr. Almanzar on 06-08-2022 Hematocrit (Bld) [Volume fraction] 38.9 % 37-47 [facility] Iron measurement (mass/mass) Ordered By: Dr. Almanzar on 06-08-2022 Iron (Unsp spec) [Mass/Mass] 50 ug/dL 50-170 [facility] Laboratory - Chemistry and C hemistry - challengeOrdered By: Dr. Almanzar on 06-08-2022 ALP [Catalytic activity/Vol] 67 U/L 45-117 [facility] ALT [Catalytic activity/Vol] 33 U/L 13-56 [facility] CO2 [Moles/Vol] 26.0 mmol/L 21.0-32.0 [facility] Cobalamin (Vitamin B12) [Mass/Vol] 1183 pg/mL 211-911 [facility] Globulin (S) [Mass/Vol] 4.1 g/dL 2.2-4.2 [facility] Magnesium [Mass/Vol] 2.1 mg/dL 1.6-2.6 [facility] Urea nitrogen/Creatinine [Mass ratio] 26.8 mg/mg 10-20 [facility] Laboratory - Hematology and Cell countsOrdered By: Dr. Almanzar on 06-08-2022 Erythrocyte distribution width (RBC) [Entitic vol] 46.7 fL 35.1-43.9 [facility] Erythrocyte distribution width (RBC) [Ratio] 13.6 % 11.6-14.6 [facility] Immature granulocytes/100 WBC (Bld) 0.400 % 0.0-0.9 [facility] Comment on above: IG% - Immature Granu locytes (promyelocytes, myelocytes and metamyelocytes) > 1% indicates that a LEFT SHIFT is Present. MCH (RBC) [Entitic mass] 30.2 pg 27.0-32.0 [facility] Nucleated RBC/100 WBC (Bld) [Ratio] 0 % 0-5 [facility] MCHC Auto (RBC) [Mass/Vol]Or dered By: Dr. Almanzar on 06-08-2022 MCHC (RBC) [Mass/Vol] 32.1 g/dL 32-36 [facility] No Panel InformationOrdered By: Dr. Almanzar on 06-08-2022 Estimated GFR (MDRD) Amer 95 mL/min >60 [facility] Comment on above: GFR Calc Estimated GFR (MDRD) Non-Af Amer 78 mL/min >60 [facility] Comment on above: Non- GFR Calc Platelets bldOrdered By: Dr. Almanzar on 06-08-2022 Platelets (Bld) [#/Vol] 318 10*3/uL 150-450 [facility] Serum or plasma albumin jatin urement (mass/volume)Ordered By: Dr. Almanzar on 06-08-2022 Albumin [Mass/Vol] 3.5 g/dL 3.2-5.0 [facility] Serum or plasma albumin/glob ulin mass ratioOrdered By: Dr. Almanzar on 06-08-2022 Albumin/Globulin [Mass ratio] 0.9 {ratio} 0.9-2.4 [facility] Serum or plasma calcium jatin urement (mass/volume)Ordered By: Dr. Almanzar on 06-08-2022 Calcium [Mass/Vol] 9.1 mg/dL 8.5-10.1 [facility] Serum or plasma cholesterol in HDL measurement (mass/volume)Ordered By: Dr. Almanzar on 06-08-2022 Cholesterol in HDL [Mass/Vol] 51 mg/dL >40 [facility] Comment on above: The drugs N-Acetylcy steine and Metamizole may falsely depress this assay. Reference Range HDL <40 mg/dL Low HDL Cholesterol HDL >or= 60 mg/dL High HDL Cholesterol Serum or plasma cholesterol in VLDL measurement (mass/volume)Ordered By: Dr. Almanzar on 06-08-2022 Cholesterol in VLDL [Mass/Vol] 34 mg/dL 5-40 [facility] Serum or plasma creatinine m easurement (mass/volume)Ordered By: Dr. Almanzar on 06-08-2022 Creatinine [Mass/Vol] 0.78 mg/dL 0.55-1.02 [facility] Comment on above: The validity of the calculated GFR & GFRAA in patients over 70 years has not been determined. Clinical correlation is essential. Serum or plasma ferritin karina surement (mass/volume)Ordered By: Dr. Almanzar on 06-08-2022 Ferritin [Mass/Vol] 107 ng/mL 8-252 [facility] Serum or plasma low density lipoprotein (LDL) cholesterol measurement (mass/volume)Ordered By: Dr. Almanzar on 06-08-2022 Cholesterol in LDL [Mass/Vol] 118 mg/dL 0-130 [facility] Serum or plasma urea nitroge n measurement (mass/volume)Ordered By: Dr. Almanzar on 06-08-2022 Urea nitrogen [Mass/Vol] 21 mg/dL 7-18 [facility] Serum or plasma zinc measure ment (mass/volume)Ordered By: Dr. Almanzar on 06-08-2022 Zinc [Mass/Vol] 85 ug/dL 44-115 [facility] Comment on above: Detection Limit = 5P erformed at: - [facility] [id number] Director: Kimberly Langford MD, Phone: [phone] Thin prep Papanicolaou smear with manual screeningOrdered By: Dr. Almanzar on 06-08-2022 Thin prep Papanicolaou smear with manual screening 24 U/L 15-37 [facility] Thin prep Papanicolaou smear with manual screening 8 5-15 [facility] Whole blood hemoglobin A1c/t otal hemoglobin ratio (mass fraction)Ordered By: Dr. Almanzar on 06-08-2022 HbA1c (Bld) [Mass fraction] 7.1 % 3.8-5.6 [facility] Comment on above: Normal < 5.7 % Predi abetic 5.7 - 6.4 % Diabetic >or= 6.5 % Please note range changes. Albumin Elph [Mass/Vol]Order ed By: Dr. Rasmussen on 05-15-2022 Albumin [Mass/Vol] 3.3 g/dL 2.9-4.4 [facility] Basophil percentageOrdered B y: Dr. Rasmussen on 05-15-2022 Basophil percentage Comment: . [facility] Comment on above: Presence of monoclon al protein is unclear at this time. Suggestrepeat in 3 to 6 months if clinically indicated.Performed at: [employer] [id number] Director: Herb Kincaid PhD, Phone: [phone] Interpretation of serum or p lasma protein pattern by immunofixation (narrative resultOrdered By: Dr. Rasmussen on 05-15-2022 Protein Fractions Immunofixation Arnav [Interp] See comment [facility] Comment on above: Result: Not Observed No Panel InformationOrdered By: Dr. Rasmussen on 05-15-2022 Addendum Document Comment . [facility] Comment on above: Protein electrophore sis scan will follow via computer,mail, or chrome polisher delivery. Serum [id number] measu rement by electrophoresisOrdered By: Dr. Rasmussen on 05-15-2022 Alpha 1 globulin Elph [Mass/Vol] 0.2 g/dL 0.0-0.4 [facility] Alpha 1 globulin Elph [Mass/Vol] 0.9 g/dL 0.4-1.0 [facility] Serum globulin measurement ( mass/volume)Ordered By: Dr. Rasmussen on 05-15-2022 Globulin (S) [Mass/Vol] 3.4 g/dL 2.2-3.9 [facility] Serum or plasma IgA measurem ent (mass/volume)Ordered By: Dr. Rasmussen on 05-15-2022 IgA [Mass/Vol] 173 mg/dL 87-352 [facility] Serum or plasma IgG measurem ent (mass/volume)Ordered By: Dr. Rasmussen on 05-15-2022 IgG [Mass/Vol] 1117 mg/dL 586-1602 [facility] Serum or plasma IgM measurem ent (mass/volume)Ordered By: Dr. Rasmussen on 05-15-2022 IgM [Mass/Vol] 109 mg/dL [facility] Serum or plasma beta globuli n measurement by electrophoresis (mass/volume)Ordered By: Dr. Rasmussen on 05-15-2022 Beta globulin Elph [Mass/Vol] 1.1 g/dL 0.7-1.3 [facility] Serum or plasma gamma globul in measurement by electrophoresis (mass/volume)Ordered By: Dr. Rasmussen on 05-15-2022 Gamma globulin Elph [Mass/Vol] 1.2 g/dL 0.4-1.8 [facility] Serum or plasma immunoelectr ophoresis interpretation (nominal result)Ordered By: Dr. Rasmussen on 05-15-2022 Interpretation IEP [Interp] Comment: . [facility] Comment on above: Presence of monoclon al protein is unclear at this time. Suggestrepeat in 3 to 6 months if clinically indicated. Thin prep Papanicolaou smear with manual screeningOrdered By: Dr. Rasmussen on 05-15-2022 Thin prep Papanicolaou smear with manual screening 1.0 0.7-1.7 [facility] Total protein bloodOrdered B y: Dr. Rasmussen on 05-15-2022 Protein [Mass/Vol] 6.7 g/dL 6.0-8.5 [facility] No Panel Informationon 02-14 Free Lambda Light Chains, Quant 25.9 mg/L 5.7-26.3 [facility] Work Phone: Serum immunoglobulin kappa l ight chains/immunoglobulin lambda light chains mass ratioon 02-14-2022 Immunoglobulin light chains.kappa/Immunoglobulin light chains.lambda (S) [Mass ratio] 1.29 0.26-1.65 [facility] Work Phone: Comment on above: Performed at: [address] [id number] Director: Herb Kincaid PhD, Phone: [phone] Serum or plasma folate measu rement (mass/volume)on 02-14-2022 Folate [Mass/Vol] 38.00 ng/mL 3.1-55.4 [facility] Work Phone: Comment on above: Slight Hemolysis, Re sult may be falsely increased. Serum or plasma immunoglobul in kappa light chains measurement (mass/volume)on 02-14-2022 Immunoglobulin light chains.kappa [Mass/Vol] 33.4 mg/L 3.3-19.4 [facility] Work Phone: Absolute lymphocyte counton 11-23-2021 Lymphocytes Auto (Unsp spec) [#/Vol] 2.07 10*3/uL 0.83-4.51 [facility] Work Phone: Basophil percentageon 2021 Basophil percentage 5-10 SEEN /hpf 0-5 [facility] Work Phone: Basophil percentage 3.4 mg/dL 2.5-4.9 [facility]: Basophils/100 WBC (Bld) 0.6 % 0-1 [facility] Work Phone: Bilirubin [Mass/Vol] 0.40 mg/dL 0.20-1.00 [facility] Work Phone: Comment on above: For patients on eltr ombopag therapy, use of Dimension [place] TBIL is not recommended. Chloride [Moles/Vol] 103 mmol/L 98-107 [facility] Work Phone: Cholesterol [Mass/Vol] 212 mg/dL <200 [facility] Work Phone: Comment on above: <200 mg/dL Desirable 200-240 mg/dL Borderline >240 mg/dL High Risk Eosinophils/100 WBC (Bld) 1.9 % 0-5 [facility] Work Phone: Glucose [Mass/Vol] 138 mg/dL 74-106 [facility] Work Phone: Comment on above: Fasting Glucose resu lt greater than or equal to 126 mg/dL suggests DIABETES MELLITUS per A.D.A. criteria. Neutrophils (Bld) [#/Vol] 4.2 10*3/uL 2.0-7.7 [facility] Work Phone: Neutrophils/100 WBC (Bld) 60.6 % 47-70 [facility] Work Phone: Potassium [Moles/Vol] 3.7 mmol/L 3.5-5.1 [facility] Work Phone: Protein [Mass/Vol] 7.7 g/dL 6.4-8.2 [facility] Work Phone: Sodium [Moles/Vol] 138 mmol/L 136-145 [facility] Work Phone: Triglyceride [Mass/Vol] 201 mg/dL <199 [facility] Work Phone: Comment on above: The drugs N-Acetylcy steine and Metamizole may falsely depress this assay.Serum Triglycerides Reference Interval Normal <150 mg/dL Borderline high 150 - 199 mg/dL High 200 - 499 mg/dL Very High > or = 500 mg/dL WBC (Bld) [#/Vol] 6.9 10*3/uL 4.4-11.0 [facility] Work Phone: Bilirubin Test strip Ql (U)o n 11-23-2021 Bilirubin Ql (U) Negative Negative [facility] Work Phone: Blood erythrocytes count (nu mber/volume)on 11-23-2021 RBC (Bld) [#/Vol] 4.15 10*6/uL 4.2-5.4 [facility] Work Phone: Blood hemoglobin measurement (mass/volume)on 11-23-2021 Hemoglobin (Bld) [Mass/Vol] 12.5 g/dL 12.0-15. 0 [facility] Work Phone: Blood lymphocytes/100 leukoc yteson 11-23-2021 Lymphocytes/100 WBC (Bld) 29.9 % 19-41 [facility] Work Phone: Blood monocytes/100 leukocyt eson 11-23-2021 Monocytes/100 WBC (Bld) 6.6 % 0-10 [facility] Work Phone: Blood platelet mean volumeon 11-23-2021 Platelet mean volume (Bld) [Entitic vol] 10.6 fL 6.2-12.0 [facility] Work Phone: Determination of erythrocyte mean corpuscular volume (MCV)on 11-23-2021 MCV (RBC) [Entitic vol] 94.2 fL 81-99 [facility] Work Phone: Hematocrit Auto (Bld) [Volum e fraction]on 11-23-2021 Hematocrit (Bld) [Volume fraction] 39.1 % 37-47 [facility] Work Phone: Iron measurement (mass/mass) on 11-23-2021 Iron (Unsp spec) [Mass/Mass] 44 ug/dL 50-170 [facility] Work Phone: Ketones Test strip Ql (U)on 11-23-2021 Ketones Ql (U) Negative Negative [facility] Work Phone: Laboratory - Chemistry and C hemistry - challengeon 11-23-2021 ALP [Catalytic activity/Vol] 64 U/L 45-117 [facility] Work Phone: ALT [Catalytic activity/Vol] 38 U/L 13-56 [facility] Work Phone: CO2 [Moles/Vol] 27.0 mmol/L 21.0-32.0 [facility] Work Phone: Cobalamin (Vitamin B12) [Mass/Vol] 1434 pg/mL 211-911 [facility] Work Phone: [phone] Globulin (S) [Mass/Vol] 4.2 g/dL 2.2-4.2 [facility] Work Phone: Magnesium [Mass/Vol] 2.3 mg/dL 1.6-2.6 [facility]: Urea nitrogen/Creatinine [Mass ratio] 23.1 mg/mg 10-20 [facility] Work Phone: Laboratory - Hematology and Cell countson 11-23-2021 Erythrocyte distribution width (RBC) [Entitic vol] 47.2 fL 35.1-43.9 [facility] Work Phone: Erythrocyte distribution width (RBC) [Ratio] 13.7 % 11.6-14.6 [facility] Work Phone: Immature granulocytes/100 WBC (Bld) 0.400 % 0.0-0.9 [facility] Work Phone: Comment on above: IG% - Immature Granu locytes (promyelocytes, myelocytes and metamyelocytes) > 1% indicates that a LEFT SHIFT is Present. MCH (RBC) [Entitic mass] 30.1 pg 27.0-32.0 [facility] Work Phone: Nucleated RBC/100 WBC (Bld) [Ratio] 0 % 0-5 [facility] Work Phone: MCHC Auto (RBC) [Mass/Vol]on 11-23-2021 MCHC (RBC) [Mass/Vol] 32.0 g/dL 32-36 [facility] Work Phone: Mucus LM Ql (Urine sed)on Mucus Ql (Urine sed) 0 SEEN /hpf [facility] Work Phone: Nitrite Test strip Ql (U)on 11-23-2021 Nitrite Ql (U) Negative Negative [facility] Work Phone: No Panel Informationon 11-23 Estimated GFR (MDRD) Amer 90 mL/min >60 [facility] Work Phone: Comment on above: GFR Calc Estimated GFR (MDRD) Non-Af Amer 74 mL/min >60 [facility] Work Phone: Comment on above: Non- GFR Calc Thyroid Stimulating Hormone (TSH) 1.69 uIU/mL 0.358-3.74 [facility] Work Phone: Urine Microalbumin/Creatinine Ratio 33.0 mg/g CRE <30 [facility] Work Phone: Platelets bldon 11-23-2021 Platelets (Bld) [#/Vol] 299 10*3/uL 150-450 [facility] Work Phone: Protein Test strip Ql (U)on 11-23-2021 Protein Ql (U) Negative Negative [facility] Work Phone: Serum or plasma albumin jatin urement (mass/volume)on 11-23-2021 Albumin [Mass/Vol] 3.5 g/dL 3.2-5.0 [facility] Work Phone: Serum or plasma albumin/glob ulin mass ratioon 11-23-2021 Albumin/Globulin [Mass ratio] 0.8 {ratio} 0.9-2.4 [facility] Work Phone: Serum or plasma calcium jatin urement (mass/volume)on 11-23-2021 Calcium [Mass/Vol] 8.5 mg/dL 8.5-10.1 [facility] Work Phone: Serum or plasma cholesterol in HDL measurement (mass/volume)on 11-23-2021 Cholesterol in HDL [Mass/Vol] 45 mg/dL >40 [facility] Work Phone: Comment on above: The drugs N-Acetylcy steine and Metamizole may falsely depress this assay. Reference Range HDL <40 mg/dL Low HDL Cholesterol HDL >or= 60 mg/dL High HDL Cholesterol Serum or plasma cholesterol in VLDL measurement (mass/volume)on 11-23-2021 Cholesterol in VLDL [Mass/Vol] 40 mg/dL 5-40 [facility] Work Phone: Serum or plasma creatinine m easurement (mass/volume)on 11-23-2021 Creatinine [Mass/Vol] 0.82 mg/dL 0.55-1.02 [facility] Work Phone: Comment on above: The validity of the calculated GFR & GFRAA in patients over 70 years has not been determined. Clinical correlation is essential. Serum or plasma ferritin karina surement (mass/volume)on 11-23-2021 Ferritin [Mass/Vol] 174 ng/mL 8-252 [facility] Work Phone: Serum or plasma low density lipoprotein (LDL) cholesterol measurement (mass/volume)on 11-23-2021 Cholesterol in LDL [Mass/Vol] 127 mg/dL 0-130 [facility] Work Phone: Serum or plasma urea nitroge n measurement (mass/volume)on 11-23-2021 Urea nitrogen [Mass/Vol] 19 mg/dL 7-18 [facility] Work Phone: Serum or plasma zinc measure ment (mass/volume)on 11-23-2021 Zinc [Mass/Vol] 84 ug/dL 44-115 [facility] Work Phone: Comment on above: Detection Limit = 5P erformed at: - [facility] [id number] Director: Kimberly Langford MD, Phone: [phone] Squamous epithelial cells de tection in urine sediment by light microscopyon 11-23-2021 Epithelial cells.squamous LM Ql (Urine sed) 5-10 SEEN /hpf 5-10 [facility] Work Phone: Thin prep Papanicolaou smear with manual screeningon 11-23-2021 Thin prep Papanicolaou smear with manual screening 23 U/L 15-37 [facility] Work Phone: Thin prep Papanicolaou smear with manual screening 8 5-15 [facility] Work Phone: Thin prep Papanicolaou smear with manual screening 15.1 mg/L NO RANGE EST. [facility] Work Phone: Urine blood detectionon 05-0 RBC Ql (U) 10 /ul Negative [facility] Work Phone: RBC Ql (U) 0 SEEN /hpf 0-5 [facility] Work Phone: Urine clarityon 11-23-2021 Clarity (U) Clear Clear [facility] Work Phone: Urine color determinationon 11-23-2021 Color (U) Yellow Yellow [facility] Work Phone: Urine creatinine measurement (mass/volume)on 11-23-2021 Creatinine (U) [Mass/Vol] 45.70 mg/dL NO RANGE EST. [facility] Work Phone: Urine glucose detectionon Glucose Ql (U) Normal mg/dl Normal [facility] Work Phone: Urine leukocyte esterase det ection by dipstickon 11-23-2021 Leukocyte esterase Test strip Ql (U) 500 /ul Negative [facility] Work Phone: Urine pHon 11-23-2021 pH (U) 6.0 [pH] 5.0 - 8.0 [facility] Work Phone: Urine sediment bacteria coun t by microscopy (number/high power field)on 11-23-2021 Bacteria LM.HPF (Urine sed) [#/Area] RARE /hpf None Seen [facility] Work Phone: Urine specific gravity measu rementon 11-23-2021 Specific gravity (U) [Rel density] 1.010 1.002-1.030 [facility] Work Phone: Urobilinogen Auto test strip Ql (U)on 11-23-2021 Urobilinogen Ql (U) Normal mg/dl Normal [facility] Work Phone: Whole blood hemoglobin A1c/t otal hemoglobin ratio (mass fraction)on 11-23-2021 HbA1c (Bld) [Mass fraction] 6.3 % 3.8-5.6 [facility] Work Phone: Comment on above: Normal < 5.7 % Predi abetic 5.7 - 6.4 % Diabetic >or= 6.5 % Please note range changes. COVID PCR, SCREENING CONGREG ATEon 01-15-2020 CORONAVIRUS 2019,PCR NOT DETECTED Normal Not Detected [facility] Comment on above: Result Comment: This assay [...] patient management decisions. Fact sheet for providers: https://www.fda.gov/media/372091/download Fact sheet for patients: https://www.fda.gov/media/730514/download This test has received FDA Emergency Use Authorization (EUA) and has been verified by [facility]). This test is only authorized for the duration of time that circumstances exist to justify the authorization of the emergency use of in vitro diagnostic tests for the detection of SARS-CoV-2 virus and/or diagnosis of COVID-19 infection under section 564(b)(1) of the Act, 21 U.S.C. 360bbb-3(b)(1), unless the authorization is terminated or revoked sooner. [facility]) is certified under CLIA-88 as qualified to perform high complexity testing. This tests analytical performance characteristics have been determined by [facility]. Testing is performed at [facility] is located at [address] [place] [address] (CLIA License #[id number], CAP #[id number]). Performed By: #### C VCLA #### [facility] [address] [place] [address] COVID PCR, SCREENING CONGREG ATEon 01-14-2020 Lab Specimen Source Nasal, Nasopharyngeal Normal [facility] Comment on above: Performed By: #### C [facility] #### [facility] [address] [place] [address] Lab Report: Bedside Glucoseo n 01-24-2017 Glucose 118 mg/dL High 70-110 [facility] Work Phone: Vital Signs Date Time Vital Sign Value Performing Clinician Facility 03-13-2025 09:47-0400 Body height 165.1 cm Manuela Montana APRN.CNP Work Phone: [facility] 03-13-2025 09:47-0400 Body mass index (BMI) [Ratio] 38.27 kg/m2 Manuela Montana APRN.[employer] Work Phone: [facility] 03-13-2025 09:47-0400 Body weight 104.33 kg Manuela Montana APRN.[employer] Work Phone: [facility] 03-13-2025 09:47-0400 Diastolic blood pressure 80 mm[Hg] Manuela Montana APRN.[employer] Work Phone: [facility] 03-13-2025 09:47-0400 Heart rate 84 /min Manuela Montana APRN.[employer] Work Phone: [facility] 03-13-2025 09:47-0400 Respiratory rate 14 /min Manuela Montana APRN.[employer] Work Phone: [facility] 03-13-2025 09:47-0400 SaO2% (BldA) [Mass fraction] 96 % Manuela Montana APRN.[employer] Work Phone: [facility] 03-13-2025 09:47-0400 Systolic blood pressure 122 mm[Hg] Manuela Montana APRN.[employer] Work Phone: [facility] 03-09-2025 11:25-0400 Body temperature 98.4 [degF] Meir Bush MD Work Phone: [facility] 03-09-2025 11:25-0400 Diastolic blood pressure 75 mm[Hg] Meir Bush MD Work Phone: [facility] 03-09-2025 11:25-0400 Heart rate 83 /min Meir Bush MD Work Phone: [facility] 03-09-2025 11:25-0400 Respiratory rate 16 /min Meir Bush MD Work Phone: [facility] 03-09-2025 11:25-0400 SaO2% (BldA) [Mass fraction] 96 % Meir Bush MD Work Phone: [facility] 03-09-2025 11:25-0400 Systolic blood pressure 151 mm[Hg] Meir Bush MD Work Phone: [facility] 02-25-2025 09:53-0400 Body height 165.1 cm Meir Bush MD Work Phone: [facility] 02-25-2025 09:53-0400 Body mass index (BMI) [Ratio] 37 kg/m2 Meir Bush MD Work Phone: [facility] 02-25-2025 09:53-0400 Body weight 101.15 kg Meir Bush MD Work Phone: [facility] 01-29-2025 10:48-0400 Body height 165.1 cm Meir Bush MD Work Phone: [facility] 01-29-2025 10:48-0400 Body mass index (BMI) [Ratio] 38.6 kg/m2 Meir Bush MD Work Phone: [facility] 01-29-2025 10:48-0400 Body temperature 97.8 [degF] Meir Bush MD Work Phone: [facility] 01-29-2025 10:48-0400 Body weight 105.23 kg Meir Bush MD Work Phone: [facility] 01-29-2025 10:48-0400 Diastolic blood pressure 71 mm[Hg] Meir Bush MD Work Phone: [facility] 01-29-2025 10:48-0400 Heart rate 89 /min Meir Bush MD Work Phone: [facility] 01-29-2025 10:48-0400 Respiratory rate 15 /min Meir Bush MD Work Phone: [facility] 01-29-2025 10:48-0400 SaO2% (BldA) [Mass fraction] 97 % Meir Bush MD Work Phone: [facility] 01-29-2025 10:48-0400 Systolic blood pressure 130 mm[Hg] Meir Bush MD Work Phone: [facility] 01-12-2025 15:00-0400 Body temperature 99.4 [degF] Deysi Matthew DO Work Phone: [facility] 01-12-2025 15:00-0400 Diastolic blood pressure 81 mm[Hg] Deysi Matthew DO Work Phone: [facility] 01-12-2025 15:00-0400 Heart rate 77 /min Deysi Matthew DO Work Phone: [facility] 01-12-2025 15:00-0400 Respiratory rate 12 /min Deysi Matthew DO Work Phone: [facility] 01-12-2025 15:00-0400 SaO2% (BldA) [Mass fraction] 97 % Deysi Matthew DO Work Phone: [facility] 01-12-2025 15:00-0400 Systolic blood pressure 160 mm[Hg] Deysi Matthew DO Work Phone: [facility] 01-12-2025 12:34-0400 Body height 165.1 cm Deysi Matthew DO Work Phone: [facility] 01-12-2025 12:34-0400 Body mass index (BMI) [Ratio] 39.2 kg/m2 Deysi Matthew DO Work Phone: [facility] 01-12-2025 12:34-0400 Body weight 107.09 kg Deysi Matthew DO Work Phone: [facility] 12-27-2024 10:17-0400 Body mass index (BMI) [Ratio] 38.59 kg/m2 Leonardo Dhillon APRN.CNP Work Phone: [facility] 12-27-2024 10:17-0400 Body temperature 97.11 [degF] Leonardo Dhillon APRN.CNP Work Phone: [facility] 12-27-2024 10:17-0400 Body weight 106.8 kg Leonardo Moomaw INSTRUMENT REPAIR SPECIALIST.[employer]ER Work Phone: [facility] 12-27-2024 10:17-0400 Diastolic blood pressure 58 mm[Hg] Leonardo Moomaw INSTRUMENT REPAIR SPECIALIST.[employer]ICER Work Phone: [facility] 12-27-2024 10:17-0400 Heart rate 86 /min Leonardo Moomaw INSTRUMENT REPAIR SPECIALIST.[employer]ER Work Phone: [facility] 12-27-2024 10:17-0400 Respiratory rate 21 /min Leonardo Moomaw INSTRUMENT REPAIR SPECIALIST.[employer]ICER Work Phone: [facility] 12-27-2024 10:17-0400 SaO2% (BldA) [Mass fraction] 96 % Leonardo Moomaw INSTRUMENT REPAIR SPECIALIST.[employer]ICER Work Phone: [facility] 12-27-2024 10:17-0400 Systolic blood pressure 110 mm[Hg] Leonardo Moomaw INSTRUMENT REPAIR SPECIALIST.[employer] OFFICER Work Phone: [facility] 12-08-2024 11:57-0400 Body temperature 98 [degF] Meir Bush MD Work Phone: [facility] 12-08-2024 11:57-0400 Diastolic blood pressure 71 mm[Hg] Meir Bush MD Work Phone: [facility] 12-08-2024 11:57-0400 Heart rate 80 /min Meir Bush MD Work Phone: [facility] 12-08-2024 11:57-0400 Respiratory rate 17 /min Meir Bush MD Work Phone: [facility] 12-08-2024 11:57-0400 SaO2% (BldA) [Mass fraction] 96 % Meir Bush MD Work Phone: [facility] 12-08-2024 11:57-0400 Systolic blood pressure 147 mm[Hg] Meir Bush MD Work Phone: [facility] 11-21-2024 10:15-0400 Body height 165.1 cm Meir Bush MD Work Phone: [facility] 11-21-2024 10:15-0400 Body mass index (BMI) [Ratio] 38.3 kg/m2 Meir Bush MD Work Phone: [facility] 11-21-2024 10:15-0400 Body weight 104.55 kg Meir Bush MD Work Phone: [facility] 11-06-2024 11:37-0400 Body height 165.[address] Gilberto Rasmussen MD Work Phone: [facility] 11-06-2024 11:37-0400 Body mass index (BMI) [Ratio] 39.1 kg/m2 Dr. Gilberto Rasmussen MD Work Phone: [facility] 11-06-2024 11:37-0400 Body temperature 97.8 [degF] Dr. Gilberto Rasmussen MD Work Phone: [facility] 11-06-2024 11:37-0400 Body weight 106.[address] Gilberto Rasmussen MD Work Phone: [facility] 11-06-2024 11:37-0400 Diastolic blood pressure 60 mm[Hg] Dr. Gilberto Rasmussen MD Work Phone: [facility] 11-06-2024 11:37-0400 Heart rate 99 /min Dr. Gilberto Rasmussen MD Work Phone: [facility] 11-06-2024 11:37-0400 Respiratory rate 17 /min Dr. Gilberto Rasmussen MD Work Phone: [facility] 11-06-2024 11:37-0400 SaO2% (BldA) [Mass fraction] 96 % Dr. Gilberto Rasmussen MD Work Phone: [facility] 11-06-2024 11:37-0400 Systolic blood pressure 112 mm[Hg] Dr. Gilberto Rasmussen MD Work Phone: [facility] 10-06-2024 11:30-0400 Body height 165.1 cm Meir Bush MD Work Phone: [facility] 10-06-2024 11:30-0400 Body mass index (BMI) [Ratio] 40.2 kg/m2 Meir Bush MD Work Phone: [facility] 10-06-2024 11:30-0400 Body temperature 98.2 [degF] Meir Bush MD Work Phone: [facility] 10-06-2024 11:30-0400 Body weight 109.76 kg Meir Bush MD Work Phone: [facility] 10-06-2024 11:30-0400 Diastolic blood pressure 73 mm[Hg] Meir Bush MD Work Phone: [phone](458)[phone] [place] [address] 10-06-2024 11:30-0400 Heart rate 79 /min Meir Bush MD Work Phone: 4(423)[phone] [place] [address] 10-06-2024 11:30-0400 Respiratory rate 18 /min Meir Bush MD Work Phone: 0(657)[phone] [place] [address] 10-06-2024 11:30-0400 SaO2% (BldA) [Mass fraction] 96 % Meir Bush MD Work Phone: [facility] 10-06-2024 11:30-0400 Systolic blood pressure 117 mm[Hg] Meir Bush MD Work Phone: [facility] 10-02-2024 11:48-0400 Body mass index (BMI) [Ratio] 39.9 kg/m2 Meir Bush MD Work Phone: [facility] 10-02-2024 11:48-0400 Body temperature 97.8 [degF] Meir Bush MD Work Phone: [facility] 10-02-2024 11:48-0400 Body weight 108.86 kg Meir Bush MD Work Phone: [facility] 10-02-2024 11:48-0400 Diastolic blood pressure 58 mm[Hg] Meir Bush MD Work Phone: [facility] 10-02-2024 11:48-0400 Heart rate 80 /min Meir Bush MD Work Phone: [facility] 10-02-2024 11:48-0400 Respiratory rate 17 /min Meir Bush MD Work Phone: [facility] 10-02-2024 11:48-0400 SaO2% (BldA) [Mass fraction] 97 % Meir Bush MD Work Phone: [facility] 10-02-2024 11:48-0400 Systolic blood pressure 118 mm[Hg] Meir Bush MD Work Phone: [facility] 09-02-2024 11:00-0500 Body mass index (BMI) [Ratio] 40.4 kg/m2 Meir Bush MD Work Phone: [facility] 09-02-2024 11:00-0500 Body temperature 97.8 [degF] Meir Bush MD Work Phone: [facility] 09-02-2024 11:00-0500 Body weight 110.22 kg Meir Bush MD Work Phone: [facility] 09-02-2024 11:00-0500 Diastolic blood pressure 50 mm[Hg] Meir Bush MD Work Phone: [facility] 09-02-2024 11:00-0500 Heart rate 107 /min Meir Bush MD Work Phone: [facility] 09-02-2024 11:00-0500 Respiratory rate 17 /min Meir Bush MD Work Phone: [facility] 09-02-2024 11:00-0500 SaO2% (BldA) [Mass fraction] 96 % Meir Bush MD Work Phone: [facility] 09-02-2024 11:00-0500 Systolic blood pressure 114 mm[Hg] Meir Bush MD Work Phone: [facility] 07-31-2024 14:23-0500 Diastolic blood pressure 76 mm[Hg] Meir Bush MD Work Phone: [facility] 07-31-2024 14:23-0500 Heart rate 96 /min Meir Bush MD Work Phone: [facility] 07-31-2024 14:23-0500 Systolic blood pressure 148 mm[Hg] Meir Bush MD Work Phone: [facility] 07-31-2024 13:30-0500 Body mass index (BMI) [Ratio] 41.1 kg/m2 Meir Bush MD Work Phone: [facility] 07-31-2024 13:30-0500 Body temperature 97.3 [degF] Meir Bush MD Work Phone: [facility] 07-31-2024 13:30-0500 Body weight 112.03 kg Meir Bush MD Work Phone: [facility] 07-31-2024 13:30-0500 Respiratory rate 15 /min Meir Bush MD Work Phone: [facility] 07-31-2024 13:30-0500 SaO2% (BldA) [Mass fraction] 97 % Meir Bush MD Work Phone: [facility] 11-06-2023 13:53-0400 Body height 165.1 cm DO Deysi Castro Work Phone: [facility] 11-06-2023 13:53-0400 Body mass index (BMI) [Ratio] 39.9 kg/m2 DO Deysi Castro Work Phone: [facility] 11-06-2023 13:53-0400 Body temperature 97.8 [degF] DO Deysi Castro Work Phone: [facility] 11-06-2023 13:53-0400 Body weight 108.86 kg DO Deysi Castro Work Phone: [facility] 11-06-2023 13:53-0400 Diastolic blood pressure 50 mm[Hg] DO Deysi Matthew Work Phone: [facility] 11-06-2023 13:53-0400 Heart rate 88 /min DO Deysi Matthew Work Phone: [facility] 11-06-2023 13:53-0400 Respiratory rate 17 /min DO Deysi Matthew Work Phone: [facility] 11-06-2023 13:53-0400 SaO2% (BldA) [Mass fraction] 98 % DO Deysi Matthew Work Phone: [facility] 11-06-2023 13:53-0400 Systolic blood pressure 110 mm[Hg] DO Deysi Matthew Work Phone: [facility] 11-05-2023 10:00-0400 Body weight 109.13 kg DO Deysi Matthew Work Phone: [facility] 10-19-2023 16:09-0400 Body height 165.1 cm DO Deysi Matthew Work Phone: [facility] 10-19-2023 16:09-0400 Body mass index (BMI) [Ratio] 39.9 kg/m2 DO Deysi Matthew Work Phone: [facility] 10-19-2023 16:09-0400 Body temperature 98 [degF] DO Deysi Matthew Work Phone: [facility] 10-19-2023 16:09-0400 Body weight 108.86 kg DO Deysi Matthew Work Phone: [facility] 10-19-2023 16:09-0400 Heart rate 74 /min DO Deysi Matthew Work Phone: [facility] 10-19-2023 16:09-0400 Respiratory rate 17 /min DO Deysi Matthew Work Phone: [facility] 10-19-2023 16:09-0400 SaO2% (BldA) [Mass fraction] 98 % DO Deysi Matthew Work Phone: [facility] 10-11-2023 13:15-0400 Body mass index (BMI) [Ratio] 41.2 kg/m2 DO Deysi Matthew Work Phone: [facility] 10-11-2023 13:15-0400 Body temperature 97.8 [degF] DO Deysi Matthew Work Phone: [facility] 10-11-2023 13:15-0400 Body weight 112.49 kg DO Deysi Matthew Work Phone: [facility] 10-11-2023 13:15-0400 Diastolic blood pressure 70 mm[Hg] DO Deysi Matthew Work Phone: [facility] 10-11-2023 13:15-0400 Heart rate 89 /min DO Deysi Matthew Work Phone: [facility] 10-11-2023 13:15-0400 Respiratory rate 17 /min DO Deysi Matthew Work Phone: [facility] 10-11-2023 13:15-0400 SaO2% (BldA) [Mass fraction] 95 % DO Deysi Matthew Work Phone: [facility] 10-11-2023 13:15-0400 Systolic blood pressure 138 mm[Hg] DO Deysi Matthew Work Phone: [facility] 10-08-2023 11:29-0400 Body mass index (BMI) [Ratio] 40.8 kg/m2 DO Deysi Matthew Work Phone: [facility] 10-08-2023 11:29-0400 Body temperature 98.2 [degF] DO Deysi Matthew Work Phone: [facility] 10-08-2023 11:29-0400 Body weight 111.15 kg DO Deysi Matthew Work Phone: [facility] 10-08-2023 11:29-0400 Diastolic blood pressure 73 mm[Hg] DO Deysi Matthew Work Phone: [facility] 10-08-2023 11:29-0400 Heart rate 79 /min DO Deysi Matthew Work Phone: [facility] 10-08-2023 11:29-0400 Respiratory rate 18 /min DO Deysi Matthew Work Phone: [facility] 10-08-2023 11:29-0400 SaO2% (BldA) [Mass fraction] 97 % DO Deysi Matthew Work Phone: [facility] 10-08-2023 11:29-0400 Systolic blood pressure 107 mm[Hg] DO Deysi Matthew Work Phone: [facility] 09-11-2023 13:20-0500 Body height 165.1 cm DO Deysi Matthew Work Phone: [facility] 09-11-2023 13:20-0500 Body mass index (BMI) [Ratio] 39.9 kg/m2 DO Deysi Matthew Work Phone: [facility] 09-11-2023 13:20-0500 Body temperature 97.8 [degF] DO Deysi Matthew Work Phone: [facility] 09-11-2023 13:20-0500 Body weight 108.86 kg DO Deysi Matthew Work Phone: [facility] 09-11-2023 13:20-0500 Diastolic blood pressure 60 mm[Hg] DO Deysi Matthew Work Phone: [facility] 09-11-2023 13:20-0500 Heart rate 91 /min DO Deysi Matthew Work Phone: [facility] 09-11-2023 13:20-0500 Respiratory rate 17 /min DO Deysi Matthew Work Phone: [facility] 09-11-2023 13:20-0500 SaO2% (BldA) [Mass fraction] 97 % DO Deysi Matthew Work Phone: [facility] 09-11-2023 13:20-0500 Systolic blood pressure 116 mm[Hg] DO Deysi Matthew Work Phone: [facility] 08-09-2023 13:08-0500 Body temperature 98 [degF] DO Deysi Matthew Work Phone: [facility] 08-09-2023 13:08-0500 Body weight 110.73 kg DO Deysi Matthew Work Phone: [facility] 08-09-2023 13:08-0500 Diastolic blood pressure 77 mm[Hg] DO Deysi Matthew Work Phone: [facility] 08-09-2023 13:08-0500 Heart rate 98 /min DO Deysi Matthew Work Phone: [facility] 08-09-2023 13:08-0500 Respiratory rate 14 /min DO Deysi Matthew Work Phone: [facility] 08-09-2023 13:08-0500 SaO2% (BldA) [Mass fraction] 98 % DO Deysi Matthew Work Phone: [facility] 08-09-2023 13:08-0500 Systolic blood pressure 118 mm[Hg] DO Deysi Matthew Work Phone: [facility] 07-25-2023 08:45-0500 Body temperature 97.9 [degF] DO Deysi Matthew Work Phone: [facility] 07-25-2023 08:45-0500 Diastolic blood pressure 72 mm[Hg] DO Deysi Matthew Work Phone: [facility] 07-25-2023 08:45-0500 Heart rate 96 /min DO Deysi Matthew Work Phone: [facility] 07-25-2023 08:45-0500 Respiratory rate 17 /min DO Deysi Matthew Work Phone: [facility] 07-25-2023 08:45-0500 SaO2% (BldA) [Mass fraction] 96 % DO Deysi Matthew Work Phone: [facility] 07-25-2023 08:45-0500 Systolic blood pressure 148 mm[Hg] DO Deysi Matthew Work Phone: [facility] 07-10-2023 13:31-0500 Body height 165.1 cm DO Deysi Matthew Work Phone: [facility] 07-10-2023 13:31-0500 Body mass index (BMI) [Ratio] 41.5 kg/m2 DO Deysi Matthew Work Phone: [facility] 07-10-2023 13:31-0500 Body temperature 97.8 [degF] DO Deysi Matthew Work Phone: [facility] 07-10-2023 13:31-0500 Body weight 113.11 kg DO Deysi Matthew Work Phone: [facility] 07-10-2023 13:31-0500 Diastolic blood pressure 60 mm[Hg] DO Deysi Matthew Work Phone: [facility] 07-10-2023 13:31-0500 Heart rate 81 /min DO Deysi Matthew Work Phone: [facility] 07-10-2023 13:31-0500 Respiratory rate 17 /min DO Deysi Matthew Work Phone: [facility] 07-10-2023 13:31-0500 SaO2% (BldA) [Mass fraction] 97 % DO Deysi Matthew Work Phone: [facility] 07-10-2023 13:31-0500 Systolic blood pressure 138 mm[Hg] DO Deysi Matthew Work Phone: [facility] 06-22-2023 10:09-0500 Body mass index (BMI) [Ratio] 39.1 kg/m2 DO Deysi Matthew Work Phone: [facility] 06-22-2023 10:09-0500 Body temperature 96.6 [degF] DO Deysi Matthew Work Phone: [facility] 06-22-2023 10:09-0500 Diastolic blood pressure 61 mm[Hg] DO Deysi Matthew Work Phone: [facility] 06-22-2023 10:09-0500 Heart rate 83 /min DO Deysi Matthew Work Phone: [facility] 06-22-2023 10:09-0500 Respiratory rate 16 /min DO Deysi Matthew Work Phone: [facility] 06-22-2023 10:09-0500 Systolic blood pressure 137 mm[Hg] DO Deysi Matthew Work Phone: [facility] 06-22-2023 00:37-0500 Body weight 106.59 kg DO Deysi Matthew Work Phone: [facility] 06-08-2023 08:29-0500 Body mass index (BMI) [Ratio] 39.1 kg/m2 DO Deysi Matthew Work Phone: [facility] 06-08-2023 08:29-0500 Body temperature 97.1 [degF] DO Deysi Matthew Work Phone: [facility] 06-08-2023 08:29-0500 Diastolic blood pressure 72 mm[Hg] DO Deysi Matthew Work Phone: [facility] 06-08-2023 08:29-0500 Heart rate 76 /min DO Deysi Matthew Work Phone: [facility] 06-08-2023 08:29-0500 Respiratory rate 20 /min DO Deysi Matthew Work Phone: [facility] 06-08-2023 08:29-0500 Systolic blood pressure 153 mm[Hg] DO Deysi Matthew Work Phone: [facility] 05-23-2023 00:24-0400 Body weight 106.59 kg DO Deysi Matthew Work Phone: [facility] 05-18-2023 08:30-0400 Body mass index (BMI) [Ratio] 39.1 kg/m2 DO Deysi Matthew Work Phone: [facility] 05-18-2023 08:30-0400 Body temperature 96.5 [degF] DO Deysi Matthew Work Phone: [facility] 05-18-2023 08:30-0400 Diastolic blood pressure 69 mm[Hg] DO Deysi Matthew Work Phone: [facility] 05-18-2023 08:30-0400 Heart rate 74 /min DO Deysi Matthew Work Phone: [facility] 05-18-2023 08:30-0400 Respiratory rate 18 /min DO Deysi Matthew Work Phone: [facility] 05-18-2023 08:30-0400 Systolic blood pressure 138 mm[Hg] DO Dyesi Matthew Work Phone: [facility] 04-27-2023 10:48-0400 Body height 165.1 cm DO Deysi Matthew Work Phone: [facility] 04-27-2023 10:48-0400 Body weight 106.59 kg DO Deysi Matthew Work Phone: [facility] 04-19-2023 10:57-0400 Body height 165.1 cm DO Deysi Matthew Work Phone: [facility] 04-19-2023 10:57-0400 Body mass index (BMI) [Ratio] 40.1 kg/m2 DO Deysi Matthew Work Phone: [facility] 04-19-2023 10:57-0400 Body temperature 98.3 [degF] DO Deysi Matthew Work Phone: [facility] 09-28-2023 10:57-0400 Body weight 109.31 kg DO Deysi Matthew Work Phone: [facility] 04-19-2023 10:57-0400 Diastolic blood pressure 71 mm[Hg] DO Deysi Matthew Work Phone: [facility] 04-19-2023 10:57-0400 Heart rate 82 /min DO Deysi Matthew Work Phone: [facility] 04-19-2023 10:57-0400 Respiratory rate 16 /min DO Deysi Matthew Work Phone: [facility] 04-19-2023 10:57-0400 SaO2% (BldA) [Mass fraction] 97 % DO Deysi Matthew Work Phone: [facility] 04-19-2023 10:57-0400 Systolic blood pressure 139 mm[Hg] DO Deysi Matthew Work Phone: [facility] 04-12-2023 15:50-0400 Body mass index (BMI) [Ratio] 39.9 kg/m2 DO Deysi Matthew Work Phone: [facility] 04-12-2023 15:50-0400 Body temperature 98.3 [degF] DO Deysi Matthew Work Phone: [facility] 04-12-2023 15:50-0400 Body weight 108.86 kg DO Deysi Matthew Work Phone: [facility] 04-12-2023 15:50-0400 Diastolic blood pressure 89 mm[Hg] DO Deysi Matthew Work Phone: [facility] 04-12-2023 15:50-0400 Heart rate 81 /min DO Deysi Matthew Work Phone: [facility] 04-12-2023 15:50-0400 Respiratory rate 18 /min DO Deysi Matthew Work Phone: [facility] 04-12-2023 15:50-0400 SaO2% (BldA) [Mass fraction] 97 % DO Deysimindi Mayfieldnger Work Phone: [facility] 04-12-2023 15:50-0400 Systolic blood pressure 156 mm[Hg] DO Deysimindi Mayfieldnger Work Phone: [facility] 04-06-2023 10:09-0400 Body height 165.1 cm Chanel Martinez INSTRUMENT REPAIR SPECIALIST.[employer]ICER Work Phone: [facility] 04-06-2023 10:09-0400 Body temperature 97.5 [degF] Chanel Martinez INSTRUMENT REPAIR SPECIALIST.[employer]ICER Work Phone: [facility] 04-06-2023 10:09-0400 Body weight 109.77 kg Chanel Martinez INSTRUMENT REPAIR SPECIALIST.[employer] OFFICER Work Phone: [facility] 04-06-2023 10:09-0400 Diastolic blood pressure 83 mm[Hg] Chanel Martinez INSTRUMENT REPAIR SPECIALIST.[employer] OFFICER Work Phone: [facility] 04-06-2023 10:09-0400 Heart rate 83 /min Chanel Martinez INSTRUMENT REPAIR SPECIALIST.[employer] OFFICER Work Phone: [facility] 04-06-2023 10:09-0400 Respiratory rate 14 /min Chanel Martinez INSTRUMENT REPAIR SPECIALIST.[employer] OFFICER Work Phone: [facility] 04-06-2023 10:09-0400 SaO2% (BldA) [Mass fraction] 96 % Chanel Martinez INSTRUMENT REPAIR SPECIALIST.[employer] OFFICER Work Phone: [facility] 04-06-2023 10:09-0400 Systolic blood pressure 172 mm[Hg] Chanel Martinez INSTRUMENT REPAIR SPECIALIST.[employer] OFFICER Work Phone: [facility] 03-11-2023 09:26-0400 Body height 165.1 cm DO Deysimindi Mayfieldnger Work Phone: [facility] 03-11-2023 09:26-0400 Body mass index (BMI) [Ratio] 40.2 kg/m2 DO Deysimindi Mayfieldnger Work Phone: [facility] 03-11-2023 09:26-0400 Body temperature 98.6 [degF] DO Deysi Matthew Work Phone: [facility] 03-11-2023 09:26-0400 Body weight 109.79 kg DO Deysi Matthew Work Phone: [facility] 03-11-2023 09:26-0400 Diastolic blood pressure 70 mm[Hg] DO Deysi Matthew Work Phone: [facility] 03-11-2023 09:26-0400 Heart rate 103 /min DO Deysi Matthew Work Phone: [facility] 03-11-2023 09:26-0400 Respiratory rate 17 /min DO Deysi Matthew Work Phone: [facility] 03-11-2023 09:26-0400 SaO2% (BldA) [Mass fraction] 90 % DO Desyi Matthew Work Phone: [facility] 03-11-2023 09:26-0400 Systolic blood pressure 122 mm[Hg] DO Deysi Matthew Work Phone: [facility] 03-01-2023 14:19-0400 Body mass index (BMI) [Ratio] 40.8 kg/m2 DO Deysi Matthew Work Phone: [facility] 03-01-2023 14:19-0400 Body temperature 97.8 [degF] DO Deysi Matthew Work Phone: [facility] 03-01-2023 14:19-0400 Body weight 111.41 kg DO Deysi Matthew Work Phone: [facility] 03-01-2023 14:19-0400 Diastolic blood pressure 60 mm[Hg] DO Deysi Matthew Work Phone: [facility] 03-01-2023 14:19-0400 Heart rate 92 /min DO Deysi Matthew Work Phone: [facility] 03-01-2023 14:19-0400 Respiratory rate 17 /min DO Deysi Matthew Work Phone: [facility] 03-01-2023 14:19-0400 SaO2% (BldA) [Mass fraction] 96 % DO Deysi Matthew Work Phone: [facility] 03-01-2023 14:19-0400 Systolic blood pressure 122 mm[Hg] DO Deysi Matthew Work Phone: [facility] 02-27-2023 14:39-0400 Body height 165.1 cm DO Deysimindi Mayfieldnger Work Phone: [facility] 02-27-2023 14:39-0400 Body mass index (BMI) [Ratio] 40.8 kg/m2 DO Deysi Matthew Work Phone: [facility] 02-27-2023 14:39-0400 Body temperature 98.2 [degF] DO Deysi Mayfieldnger Work Phone: [facility] 02-27-2023 14:39-0400 Body weight 111.41 kg DO Deysimindi Mayfieldnger Work Phone: [facility] 02-27-2023 14:39-0400 Diastolic blood pressure 54 mm[Hg] DO Deysimindi Mayfieldnger Work Phone: [facility] 02-27-2023 14:39-0400 Heart rate 96 /min DO Deysimindi Mayfieldnger Work Phone: [facility] 02-27-2023 14:39-0400 Respiratory rate 17 /min DO Deysimindi Mayfieldnger Work Phone: [facility] 02-27-2023 14:39-0400 SaO2% (BldA) [Mass fraction] 96 % DO Deysi Matthew Work Phone: [facility] 02-27-2023 14:39-0400 Systolic blood pressure 118 mm[Hg] DO Deysimindi Mayfieldnger Work Phone: [facility] 01-25-2023 15:51-0400 Body temperature 98.8 [degF] Dr. Gilberto Rasmussen Work Phone: 8(529)577-061160 [place] [address] 01-25-2023 15:51-0400 Diastolic blood pressure 80 mm[Hg] Dr. Gilberto Rasmussen Work Phone: 4(174)291-140971 [place] [address] 01-25-2023 15:51-0400 Heart rate 74 /min Dr. Gilberto Rasmussen Work Phone: 1(974)765-654971 [place] [address] 01-25-2023 15:51-0400 Inhaled oxygen flow rate 3 L/min Dr. Gilberto Rasmussen Work Phone: 0(364)214-884571 [place] [address] 01-25-2023 15:51-0400 Respiratory rate 18 /min Dr. Gilberto Rasmussen Work Phone: 4(197)845-361971 [place] [address] 01-25-2023 15:51-0400 SaO2% (BldA) [Mass fraction] 95 % Dr. Gilberto Rasmussen Work Phone: 6(656)552-841871 [place] [address] 01-25-2023 15:51-0400 Systolic blood pressure 134 mm[Hg] Dr. Gilberto Rasmussen Work Phone: 9(966)825-221671 [place] [address] 01-23-2023 09:35-0400 Body height 165.[address] Gilberto Rasmussen Work Phone: 5(522)109-273871 [place] [address] 01-23-2023 09:35-0400 Body mass index (BMI) [Ratio] 41.1 kg/m2 Dr. Gilberto Rasmussen Work Phone: 5(470)468-600171 [place] [address] 01-23-2023 09:35-0400 Body weight [address] Gilberto Rasmussen Work Phone: 8(575)845-862971 [place] [address] 01-23-2023 08:39-0400 Body temperature 98 [degF] Dr. Gilberto Rasmussen Work Phone: 7(049)252-934971 [place] [address] 01-23-2023 08:39-0400 Diastolic blood pressure 79 mm[Hg] Dr. Gilberto Rasmussen Work Phone: 8(723)563-648271 [place] [address] 01-23-2023 08:39-0400 Heart rate 84 /min Dr. Gilberto Rasmussen Work Phone: 3(124)281-716460 [place] [address] 01-23-2023 08:39-0400 Respiratory rate 17 /min Dr. Gilberto Rasmussen Work Phone: 7(549)848-884171 [place] [address] 01-23-2023 08:39-0400 SaO2% (BldA) [Mass fraction] 95 % Dr. Gilberto Rasmussen Work Phone: 1(166)722-815071 [place] [address] 01-23-2023 08:39-0400 Systolic blood pressure 138 mm[Hg] Dr. Gilberto Rasmussen Work Phone: 1(458)257-415871 [place] [address] 01-23-2023 03:03-0400 Body height 165.[address] Gilberto Rasmussen Work Phone: 4(597)577-810071 [place] [address] 01-23-2023 03:03-0400 Body mass index (BMI) [Ratio] 40.9 kg/m2 Dr. Gilberto Rasmussen Work Phone: 4(195)814-788971 [place] [address] 01-23-2023 03:03-0400 Body weight 111.[address] Gilberto Rasmussen Work Phone: 8(876)897-983571 [place] [address] 01-20-2023 13:29-0400 Heart rate 84 /min Dr. Gilberto Rasmussen Work Phone: 6(249)518-432971 [place] [address] 01-20-2023 13:29-0400 Respiratory rate 18 /min Dr. Gilberto Rasmussen Work Phone: 4(802)950-211271 [place] [address] 01-20-2023 13:29-0400 SaO2% (BldA) [Mass fraction] 95 % Dr. Gilberto Rasmussen Work Phone: 0(460)925-393671 [place] [address] 01-20-2023 11:55-0400 Body temperature 97.8 [degF] Dr. Gilberto Rasmussen Work Phone: 2(252)030-821271 [place] [address] 01-20-2023 11:55-0400 Diastolic blood pressure 81 mm[Hg] Dr. Gilberto Rasmussen Work Phone: 1(641)918-500571 [place] [address] 01-20-2023 11:55-0400 Systolic blood pressure 132 mm[Hg] Dr. Gilberto Rasmussen Work Phone: [facility] 01-20-2023 11:23-0400 Body height 165.[address] Gilberto Rasmussen Work Phone: [facility] 01-20-2023 11:23-0400 Body mass index (BMI) [Ratio] 40.1 kg/m2 Dr. Gilberto Rasmussen Work Phone: [facility] 01-20-2023 11:23-0400 Body weight 109.[address] Gilberto Rasmussen Work Phone: [facility] 01-20-2023 11:06-0400 Body temperature 97.7 [degF] Sean Villalba INSTRUMENT REPAIR SPECIALIST.[employer]ICER Work Phone: [facility] 01-20-2023 11:06-0400 Body weight 109.77 kg Sean Villalba INSTRUMENT REPAIR SPECIALIST.[employer] OFFICER Work Phone: [facility] 01-20-2023 11:06-0400 Diastolic blood pressure 60 mm[Hg] Sean Villalba INSTRUMENT REPAIR SPECIALIST.[employer] OFFICER Work Phone: [facility] 01-20-2023 11:06-0400 Heart rate 95 /min Sean Villalba INSTRUMENT REPAIR SPECIALIST.[employer]ICER Work Phone: [facility] 01-20-2023 11:06-0400 Respiratory rate 20 /min Sean Villalba INSTRUMENT REPAIR SPECIALIST.[employer] OFFICER Work Phone: [facility] 01-20-2023 11:06-0400 SaO2% (BldA) [Mass fraction] 94 % Sean Villalba INSTRUMENT REPAIR SPECIALIST.[employer] OFFICER Work Phone: [facility] 01-20-2023 11:06-0400 Systolic blood pressure 116 mm[Hg] Sean Villalba INSTRUMENT REPAIR SPECIALIST.[employer]ICER Work Phone: [facility] 01-01-2023 09:19-0400 Body mass index (BMI) [Ratio] 39.3 kg/m2 Dr. Gilberto Rasmussen Work Phone: 1(682)471-466771 [place] [address] 01-01-2023 09:19-0400 Body temperature 97.8 [degF] Dr. Gilberto Rasmussen Work Phone: 7(391)198-794171 [place] [address] 01-01-2023 09:19-0400 Body weight 107.[address] Gilberto Rasmussen Work Phone: 8(650)647-974771 [place] [address] 01-01-2023 09:19-0400 Diastolic blood pressure 68 mm[Hg] Dr. Gilberto Rasmussen Work Phone: 8(616)842-134071 [place] [address] 01-01-2023 09:19-0400 Heart rate 110 /min Dr. Gilberto Rasmussen Work Phone: 2(248)091-731471 [place] [address] 01-01-2023 09:19-0400 Respiratory rate 17 /min Dr. Gilberto Rasmussen Work Phone: 8(903)102-048871 [place] [address] 01-01-2023 09:19-0400 SaO2% (BldA) [Mass fraction] 97 % Dr. Gilberto Rasmussen Work Phone: 0(836)343-986971 [place] [address] 01-01-2023 09:19-0400 Systolic blood pressure 110 mm[Hg] Dr. Gilberto Rasmussen Work Phone: 8(459)624-265771 [place] [address] 11-29-2022 09:18-0400 Body height 165.[address] Gilberto Rasmussen Work Phone: 2(817)643-034071 [place] [address] 11-29-2022 09:18-0400 Body mass index (BMI) [Ratio] 39.9 kg/m2 Dr. Gilberto Rasmussen Work Phone: 5(639)290-761271 [place] [address] 11-29-2022 09:18-0400 Body temperature 97.8 [degF] Dr. Gilberto Rasmussen Work Phone: 0(912)229-695771 [place] [address] 11-29-2022 09:18-0400 Body weight 109.[address] Gilberto Rasmussen Work Phone: 0(069)002-854471 [place] [address] 11-29-2022 09:18-0400 Diastolic blood pressure 60 mm[Hg] Dr. Gilberto Rasmussen Work Phone: [facility] 11-29-2022 09:18-0400 Heart rate 81 /min Dr. Gilberto Rasmussen Work Phone: 7(144)758-488160 [place] [address] 11-29-2022 09:18-0400 Respiratory rate 17 /min Dr. Gilberto Rasmussen Work Phone: 7(601)682-490271 [place] [address] 11-29-2022 09:18-0400 SaO2% (BldA) [Mass fraction] 94 % Dr. Gilberto Rasmussen Work Phone: 7(983)893-998560 [place] [address] 11-29-2022 09:18-0400 Systolic blood pressure 108 mm[Hg] Dr. Gilberto Rasmussen Work Phone: 5(787)487-385371 [place] [address] 10-30-2022 14:18-0400 Body mass index (BMI) [Ratio] 40.7 kg/m2 Dr. Gilberto Rasmussen Work Phone: 2(471)695-302471 [place] [address] 10-30-2022 14:18-0400 Body temperature 97.8 [degF] Dr. Gilberto Rasmussen Work Phone: 2(673)907-374371 [place] [address] 10-30-2022 14:18-0400 Body weight 111.[address] Gilberto Rasmussen Work Phone: 4(642)023-239771 [place] [address] 10-30-2022 14:18-0400 Diastolic blood pressure 60 mm[Hg] Dr. Gilberto Rasmussen Work Phone: 6(055)825-488460 [place] [address] 10-30-2022 14:18-0400 Heart rate 88 /min Dr. Gilberto Rasmussen Work Phone: 9(315)168-579660 [place] [address] 10-30-2022 14:18-0400 Respiratory rate 16 /min Dr. Gilberto Rasmussen Work Phone: 0(173)615-298771 [place] [address] 10-30-2022 14:18-0400 SaO2% (BldA) [Mass fraction] 96 % Dr. Gilberto Rasmussen Work Phone: 8(888)777-924671 [place] [address] 10-30-2022 14:18-0400 Systolic blood pressure 118 mm[Hg] Dr. Gilberto Rasmussen Work Phone: [facility] 06-28-2022 12:45-0500 Diastolic blood pressure 63 mm[Hg] Asad Guerin MD Work Phone: [facility] 06-28-2022 12:45-0500 Heart rate 74 /min Asad Guerin MD Work Phone: [facility] 06-28-2022 12:45-0500 Respiratory rate 29 /min Asad Guerin MD Work Phone: [facility] 06-28-2022 12:45-0500 SaO2% (BldA) [Mass fraction] 94 % Asad Guerin MD Work Phone: [facility] 06-28-2022 12:45-0500 Systolic blood pressure 138 mm[Hg] Asad Guerin MD Work Phone: [facility] 06-28-2022 12:19-0500 Body temperature 98.2 [degF] Asad Guerin MD Work Phone: [facility] 06-27-2022 08:31-0500 Body height 165.[address] Autumn Almanzar Work Phone: [facility] 06-27-2022 08:31-0500 Body mass index (BMI) [Ratio] 41.2 kg/m2 Dr. Autumn Almanzar Work Phone: [facility] 06-27-2022 08:31-0500 Body temperature 98.2 [degF] Dr. Autumn Almanzar Work Phone: [facility] 06-27-2022 08:31-0500 Body weight 112.[address] Autumn Almanzar Work Phone: [facility] 06-27-2022 08:31-0500 Diastolic blood pressure 60 mm[Hg] Dr. Autumn Almanzar Work Phone: [facility] 06-27-2022 08:31-0500 Heart rate 86 /min Dr. Autumn Almanzar Work Phone: [facility] 06-27-2022 08:31-0500 Respiratory rate 16 /min Dr. Autumn Almanzar Work Phone: [facility] 06-27-2022 08:31-0500 SaO2% (BldA) [Mass fraction] 96 % Dr. Autumn Almanzar Work Phone: [facility] 06-27-2022 08:31-0500 Systolic blood pressure 120 mm[Hg] Dr. Autumn Almanzar Work Phone: [facility] 05-10-2022 10:24-0400 Body height 165.1 cm Manuela [place] APRN.[employer]ER Work Phone: [facility] 05-10-2022 10:24-0400 Body weight 112.04 kg Manuela [place] APRN.[employer]ER Work Phone: [facility] 05-10-2022 10:24-0400 Diastolic blood pressure 68 mm[Hg] Manuela [place] APRN.[employer]ER Work Phone: [facility] 05-10-2022 10:24-0400 Systolic blood pressure 124 mm[Hg] Manuela [place] APRN.[employer]ER Work Phone: [facility] 04-28-2022 10:59-0400 Body height 165.1 cm Allyson Haim PA-C Work Phone: [facility] 04-28-2022 10:59-0400 Body temperature 97.3 [degF] Allyson Haim PA-C Work Phone: [facility] 04-28-2022 10:59-0400 Body weight 112.58 kg Allyson [place] PA-C Work Phone: [facility] 04-28-2022 10:59-0400 Diastolic blood pressure 76 mm[Hg] Allyson [place] PA-C Work Phone: [facility] 04-28-2022 10:59-0400 Heart rate 81 /min Allyson Haim PA-C Work Phone: [facility] 04-28-2022 10:59-0400 SaO2% (BldA) [Mass fraction] 94 % Allyson [place] PA-C Work Phone: [facility] 04-28-2022 10:59-0400 Systolic blood pressure 124 mm[Hg] Allyson LANE-C Work Phone: [facility] 02-14-2022 20:17-0400 Diastolic blood pressure 68 mm[Hg] Dr. Autumn Almanzar Work Phone: [facility] Work Phone: 02-14-2022 20:17-0400 Systolic blood pressure 142 mm[Hg] Dr. Autumn Almanzar Work Phone: [facility] Work Phone: 02-14-2022 13:50-0400 Body temperature 98.2 [degF] Dr. Autumn Almanzar Work Phone: [facility] Work Phone: 02-14-2022 13:50-0400 Heart rate 73 /min Dr. Autumn Almanzar Work Phone: [facility] Work Phone: 02-14-2022 13:50-0400 Respiratory rate 14 /min Dr. Autumn Almanzar Work Phone: [facility] Work Phone: 02-14-2022 13:50-0400 SaO2% (BldA) [Mass fraction] 96 % Dr. Autumn Almanzar Work Phone: [facility] Work Phone: Encounters Encounter Date Encounter Type Care Provider Facility Start: 03-20-2025 Encounter for other preprocedural examination Jose Ramon [facility] Start: 03-13-2025 End: 03-13-2025 ambulatory Meir Bush MD Work Phone: -Cat Scan [facility] Start: 03-13-2025 End: 03-13-2025 Patient encounter procedure Manuela Montana APRN.CNP Work Phone: OB/Gynecology Comment on above: Encounter for gyneco logic examination for high-risk patient covered by Medicare (Primary Dx); 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); Encounter for Papanicolaou smear for cervical cancer screening; Encounter for screening mammogram for breast cancer Start: 03-13-2025 End: 03-13-2025 ambulatory MANUELA MONTANA Facility:[facility] Start: 03-13-2025 End: 03-13-2025 ambulatory Meir Bush Facility:[facility] Start: 03-09-2025 End: 03-09-2025 ambulatory Meir Bush MD Work Phone: -Cardiovascular Services Start: 03-09-2025 End: 03-09-[address] Jose Ramon Terry DO -Cardiovascular Services Work Phone: Start: 03-09-2025 End: 03-09-[address] Gilberto Rasmussen MD -[facility] Work Phone: Start: 03-09-2025 End: 03-09-2025 ambulatory Meir Bush MD Work Phone: -[facility] Start: 03-09-2025 End: 03-09-2025 ambulatory Meir Bush Facility:[facility] Start: 02-25-2025 End: 02-25-[address] Jose Ramon Terry DO -[facility] Work Phone: Start: 02-25-2025 End: 02-25-2025 ambulatory Meir Bush MD Work Phone: -[facility] Start: 02-23-2025 ambulatory MEIR BUSH Facility:[facility] Start: 02-23-2025 End: 02-23-2025 Subsequent hospital visit by physician Screen Mammo [facility] Mammogram Start: 02-19-2025 End: 02-19-2025 ambulatory Meir Bush MD Work Phone: -[facility] Start: 02-19-2025 End: 02-19-[address] Meir Bush MD -[facility] Start: 02-19-2025 End: 02-19-2025 ambulatory Chalon Rachelle Facility:[facility] Start: 01-29-2025 End: 01-29-[address] Gilberto Rasmussen MD -[facility] Work Phone: Start: 01-29-2025 End: 01-29-2025 ambulatory Meir Bush MD Work Phone: -[facility] Start: 01-26-2025 ambulatory Meir Bush Facility:[facility] Start: 01-20-2025 Non-patient / Non-visit Dr. Rajani alexander MD -[facility] Work Phone: Start: 01-13-2025 End: 01-13-2025 ambulatory Deysi Castro DO Work Phone: [facility] Work Phone: Start: 01-13-2025 End: 01-13-[address] Jose Ramon Terry DO -Physical Therapy Work Phone: Start: 01-13-[address] Jose Ramon lopez DO -Physical Therapy Work Phone: Start: 01-12-2025 End: 01-12-2025 Emergency department patient visit Deysi Castro DO Work Phone: -Emergency Department Work Phone: Start: 01-08-[address] Jose Ramon lopez DO -Physical Therapy Work Phone: Start: 01-07-2025 End: 01-07-2025 ambulatory Deysi Castro DO Work Phone: [facility] Work Phone: Start: 01-07-2025 End: 01-07-[address] Doris Yip MD -[facility] [place] Work Phone: Start: 01-07-2025 End: 01-07-2025 ambulatory Chalon Rachelle Facility:[facility] Start: 12-27-2024 End: 12-29-2024 Follow-up encounter Leonardo Moomaw INSTRUMENT REPAIR SPECIALIST.[employer] OFFICER Work Phone: [facility] Start: 12-27-2024 End: 12-27-2024 [facility] Comment on above: Acute left ankle bebo n [M25.572] Start: 12-27-2024 End: 12-27-2024 Patient encounter procedure Leonardo Dhillon INSTRUMENT REPAIR SPECIALIST.[employer] OFFICER Work Phone: [facility] Comment on above: Acute left ankle bebo n (Primary Dx) Start: 12-27-2024 End: 12-27-2024 ambulatory LEONARDO DHILLON Facility:[facility] Start: 12-08-2024 End: 12-08-[address] Gilberto Rasmussen MD -[facility] Work Phone: Start: 12-08-2024 End: 12-08-2024 ambulatory Meir Bush MD Work Phone: [facility] Work Phone: Start: 11-21-2024 End: 11-21-[address] Jose Ramon Terry DO -[facility] Work Phone: Start: 11-21-2024 End: 11-21-2024 ambulatory Meir Bush Facility[facility] Start: 2024 End: [address] Gilberto Rasmussen MD Work Phone: [facility] Work Phone: Start: 2024 End: 2024 Patient encounter procedure Candida Cedeno [place] Work Phone: Start: 2024 End: 2024 ambulatory Meir Bush Facility:[facility] Start: 11-07-2024 End: 11-07-[address] Juve Johnson MD -[facility] Work Phone: Start: 11-07-2024 End: 11-07-2024 ambulatory Juve Johnson Facility:[facility] Start: 11-06-2024 End: 11-06-[address] Gilberto Rasmussen MD -[facility] Work Phone: Start: 11-06-2024 End: 11-06-2024 ambulatory Chalon Rachelle Facility:[facility] Start: 10-23-2024 End: 10-23-2024 ambulatory Meir Bush MD Work Phone: [facility] Work Phone: Start: 10-23-2024 End: 10-23-[address] Doris Yip MD -[facility] Work Phone: Start: 10-23-2024 End: 10-23-2024 ambulatory Chalon Rachelle Facility:[facility] Start: 10-06-2024 End: 10-06-[address] Jose Ramon Mckenzie MD -[facility] Work Phone: Start: 10-06-2024 End: 10-06-2024 ambulatory Chalon Rachelle Facility:[facility] Start: 10-02-2024 End: 10-02-[address] Gilberto Rasmussen MD -[facility] Work Phone: Start: 10-02-2024 End: 10-02-2024 ambulatory Chalon Rachelle Facility:[facility] Start: 09-29-2024 End: 09-29-[address] Jose Ramon Mckenzie MD -[facility] Work Phone: Start: 09-29-[address] Jose Ramon Mckenzie MD -[facility] Start: 09-29-2024 End: 09-29-2024 ambulatory Meir Bush MD Work Phone: [facility] Work Phone: Start: 09-29-2024 End: 09-29-2024 ambulatory Chalon Rachelle Facility:[facility] Start: 09-02-2024 End: 09-02-[address] Gilberto Rasmussen MD -[facility] Work Phone: Start: 09-02-2024 End: 09-02-2024 ambulatory Chalon Rachelle Facility:[facility] Start: 08-28-2024 End: 08-28-[address] Doris Yip MD -Laboratory, [place] Work Phone: Start: 08-28-2024 End: 08-28-2024 ambulatory Chalon Rachelle Facility:[facility] Start: 08-04-2024 End: 08-04-2024 Patient encounter procedure Josefa UNGER -Outpatient Bone Densitometry Work Phone: Start: 08-04-2024 End: 08-04-2024 ambulatory Chalon Rachelle Facility:[facility] Start: 08-01-2024 End: 08-01-[address] [facility] Start: 07-31-2024 End: 07-31-[address] Gilberto Rasmussen MD -[facility] Work Phone: Start: 07-31-2024 End: 08-01-2024 ambulatory Chalon Rachelle Facility:[facility] Start: 07-09-2024 End: 07-09-[address] Doris Yip MD -[facility], [place] Work Phone: Start: 07-09-2024 End: 07-09-2024 ambulatory Chalon Rachelle Facility:[facility] Start: 07-07-2024 End: 07-07-2024 Patient encounter procedure Josefa UNGER -Cat Scan, [facility] Work Phone: Start: 07-07-2024 End: 07-07-2024 ambulatory Chalon Rachelle Facility:[facility] Start: 06-06-2024 End: 06-06-2024 ambulatory Chalon Rachelle Facility:[facility] Start: 05-22-2024 End: 05-22-2024 ambulatory Chalon Rachelle Facility:[facility] Start: 05-16-2024 End: 05-16-2024 ambulatory Chalon Rachelle Facility:[facility] Start: 04-21-2024 End: 04-21-2024 ambulatory Chalon Rachelle Facility:[facility] Start: 04-09-2024 End: 04-09-2024 ambulatory Chalon [facility] Facility:[facility] Start: 11-23-2023 End: 11-23-2023 Patient encounter procedure DO Deysi Mayfieldnger Work Phone: [facility] Work Phone: Start: 11-20-2023 End: 11-20-2023 ambulatory DO Deysi Baeza Matthew Work Phone: [facility] Work Phone: Start: 11-20-2023 End: 11-20-2023 Patient encounter procedure DO Deysi Albaer Work Phone: [facility] Work Phone: Start: 11-17-2023 End: 11-17-2023 ambulatory DO Deysi Aryan Matthew Work Phone: [facility] Work Phone: Start: 11-17-2023 End: 11-17-2023 Patient encounter procedure DO Deysi Matthew Work Phone: [facility] Work Phone: Start: 11-08-2023 End: 11-08-2023 Patient encounter procedure DO Deysi Matthew Work Phone: [facility] Work Phone: Start: 11-06-2023 End: 11-06-2023 Patient encounter procedure DO Deysi Mayfieldnger Work Phone: [facility] Work Phone: Start: 11-05-2023 End: 11-20-2023 ambulatory DO Deysi Baeza Matthew Work Phone: [facility] Work Phone: Start: 11-05-2023 End: 11-20-2023 Discharged Recurring DO Deysi Castro Work Phone: [facility] Work Phone: Start: 10-19-2023 End: 10-19-2023 Patient encounter procedure DO Deysi Mayfieldnger Work Phone: [facility] Work Phone: Start: 10-19-2023 End: 10-19-2023 ambulatory DO Deysi Aryan Matthew Work Phone: [facility] Work Phone: Start: 10-19-2023 End: 10-19-2023 Patient encounter procedure DO Deysi Matthew Work Phone: [facility] Work Phone: Start: 10-11-2023 End: 10-11-2023 Patient encounter procedure DO Deysi Albaer Work Phone: [facility] Work Phone: Start: 10-08-2023 Registered Recurring DO Jennie Castro Work Phone: [facility] Start: 10-08-2023 End: 10-08-2023 Patient encounter procedure DO Deysi Albaer Work Phone: [facility] Work Phone: Start: 10-01-2023 End: 10-01-2023 ambulatory DO Deysi Albaer Work Phone: [facility] Work Phone: Start: 10-01-2023 End: 10-01-2023 Patient encounter procedure DO Deysi Castro Work Phone: [facility] Work Phone: Start: 10-01-2023 Registered Recurring DO Jennie Castro Work Phone: [facility] Start: 09-24-2023 End: 09-24-2023 ambulatory DO Deysi Castro Work Phone: [facility] Work Phone: Start: 09-24-2023 End: 09-24-2023 Patient encounter procedure DO Deysi Albaer Work Phone: [facility] Start: 09-11-2023 End: 09-11-2023 Patient encounter procedure DO Deysi Mayfiedlnger Work Phone: [facility] Work Phone: Start: 08-09-2023 End: 08-09-2023 Patient encounter procedure DO Deysi Mayfieldnger Work Phone: [facility] Work Phone: Start: 07-25-2023 End: 07-25-2023 ambulatory DO Deysi Albaer Work Phone: [facility] Work Phone: Start: 07-25-2023 End: 07-25-2023 Patient encounter procedure DO Deysi Albaer Work Phone: [facility] Work Phone: Start: 07-25-2023 End: 07-25-2023 Patient encounter procedure DO Deysi Albaer Work Phone: [facility] Work Phone: Start: 07-10-2023 End: 07-10-2023 Patient encounter procedure DO Deysi Albaer Work Phone: [facility] Work Phone: Start: 07-02-2023 End: 07-02-2023 ambulatory DO Deysi M Matthew Work Phone: [facility] Work Phone: Start: 07-02-2023 End: 07-02-2023 Patient encounter procedure DO Deysi Mayfieldnger Work Phone: [facility] Work Phone: Start: 06-22-2023 End: 06-25-2023 ambulatory DO Deysi Castro Work Phone: [facility] Work Phone: Start: 06-22-2023 End: 06-25-2023 Discharged Recurring DO Deysi Castro Work Phone: [facility] Work Phone: Start: 06-08-2023 End: 06-21-2023 ambulatory DO Deysi Castro Work Phone: [facility] Work Phone: Start: 06-08-2023 End: 06-21-2023 Discharged Recurring DO Deysi Castro Work Phone: [facility] Work Phone: Start: 05-18-2023 End: 05-22-2023 ambulatory DO Deysi Castro Work Phone: [facility] Work Phone: Start: 05-18-2023 End: 05-22-2023 Discharged Recurring DO Deysi Castro Work Phone: [facility] Work Phone: Start: 05-03-2023 End: 05-03-2023 Subsequent hospital visit by physician [facility] Work Phone: Radiology Comment on above: Empyema with no fist alicia (HCC) [J86.9] Start: 04-19-2023 End: 04-19-2023 Patient encounter procedure DO Deysi Castro Work Phone: [facility] Work Phone: Start: 04-19-2023 End: 04-19-2023 Patient encounter procedure DO Deysi Castro Work Phone: [facility] Work Phone: Start: 04-17-2023 REFILL - [facility] Comment on above: Medication Refill De nied Start: 04-13-2023 Registered Recurring DO Jennie Castro Work Phone: [facility] Start: 04-12-2023 End: 04-12-2023 Patient encounter procedure DO Deysi Castro Work Phone: [facility] Work Phone: Start: 04-06-2023 End: 04-06-2023 Patient encounter procedure Chanel Martinez GAGE Work Phone: [facility] Comment on above: [...] DO Deysi Castro Work Phone: [facility] Start: 03-15-2023 Non-patient / Non-visit DO Micaela Castro Work Phone: [facility] Work Phone: Start: 03-13-2023 End: 03-13-2023 ambulatory DO Deysi Castro Work Phone: [facility] Work Phone: Start: 03-13-2023 End: 03-13-2023 Patient encounter procedure DO Deysi Castro Work Phone: [facility]-Pre-Admission Testing Work Phone: Start: 03-13-2023 End: 03-13-2023 ambulatory DO Deysi Castro Work Phone: [facility] Work Phone: Start: 03-13-2023 End: 03-13-2023 Patient encounter procedure DO Deysi Castro Work Phone: [facility]-Cat Scan, [facility] Work Phone: Start: 03-12-2023 End: 03-12-2023 ambulatory DO Deysi Castro Work Phone: [facility] Work Phone: Start: 03-12-2023 End: 03-12-2023 Patient encounter procedure DO Deysi Castro Work Phone: [facility] Work Phone: Start: 03-11-2023 End: 03-11-2023 Patient encounter procedure DO Deysi Castro Work Phone: [facility] Work Phone: Start: 03-01-2023 End: 03-01-2023 Patient encounter procedure DO Deysi Castro Work Phone: [facility] Work Phone: Start: 02-27-2023 End: 02-27-2023 Patient encounter procedure DO Deysi Castro Work Phone: [facility] Work Phone: Start: 02-22-2023 End: 02-22-2023 ambulatory DO Deysi Castro Work Phone: [facility] Work Phone: Start: 02-22-2023 End: 02-22-2023 Patient encounter procedure DO Deysi Castro Work Phone: [facility]-Cardiovascula r Services Work Phone: Start: 02-20-2023 Telephone encounter Autumn Almanzar Work Phone: NOC Comment on above: Appointment Start: 02-02-2023 End: 02-02-[address] Gilberto Rasmussen Work Phone: [facility] Work Phone: Start: 02-02-2023 End: 02-02-[address] Gilberto Rasmussen Work Phone: [facility] Work Phone: Start: 01-30-2023 End: 01-30-[address] Gilberto Rasmussen Work Phone: [facility] Work Phone: Start: 01-30-2023 End: 01-30-[address] Gilberto Rasmussen Work Phone: [facility] Start: 01-25-2023 Non-patient / Non-visit Dr. Ra sarah Rasmussen Work Phone: [facility] Work Phone: Start: 01-24-2023 Non-patient / Non-visit Dr. Ra sarah Rasmussen Work Phone: [facility] Work Phone: Start: 01-23-2023 Non-patient / Non-visit Dr. Ra sarah Rasmussen Work Phone: [facility] Work Phone: Start: 01-23-2023 End: 01-25-2023 Evaluation and management of inpatient Dr[facility] Work [facility]: Start: 01-23-[address] Manasa Rasmussen Work Phone: [facility] Work Phone: Start: 01-20-2023 End: 01-20-2023 Emergency department patient visit Dr. Gilberto Rasmussen Work Phone: [facility]-Emergency Department Work Phone: Start: 01-20-2023 End: 01-20-2023 [facility] Work [facility]: [facility] Comment on above: Pleuritic pain (Prim jazmyn Dx) Start: 01-18-2023 End: 01-18-[address] Gilberto Rasmussen Work Phone: [facility] Work Phone: Start: 01-18-2023 End: 01-18-[address] Gilberto Rasmussen Work Phone: [facility]-Physical Therapy Work Phone: Start: 01-18-[address] Junior Rasmussen Work Phone: [facility]-Physical Therapy Work Phone: Start: 01-01-2023 End: 01-01-[address] Gilberto Rasmussen Work Phone: [facility] Work Phone: Start: 12-27-[address] Junior Rasmussen Work Phone: [facility]-Physical Therapy Start: 12-25-2022 End: 12-25-[address] Gilberto Rasmussen Work Phone: [facility] Work Phone: Start: 12-25-2022 End: 12-25-[address] Gilberto Rasmussen Work Phone: [facility] Start: 12-25-2022 End: 12-25-[address] Gilberto Rasmussen Work Phone: [facility] Start: 11-29-2022 End: 11-29-[address] Gilberto Rasmussen Work Phone: [facility] Start: 11-06-2022 End: 11-06-[address] Gilberto Rasmussen Work Phone: [facility] Start: 10-30-2022 End: 10-30-[address] Gilberto Rasmussen Work Phone: [facility] Start: 08-31-2022 End: 08-31-[address] Autumn Almanzar Work Phone: [facility] Work Phone: Start: 08-31-2022 End: 08-31-[address] Autumn Almanzar Work Phone: [facility] Start: 07-24-2022 End: 07-24-[address] Autumn Almanzar Work Phone: [facility] Work Phone: Start: 07-24-2022 End: 07-24-[address] Autumn Almanzar Work Phone: [facility] Start: 06-28-2022 ambulatory OSIRIS KIM Fa cility:[facility] Start: 06-28-2022 End: 06-28-2022 Subsequent hospital visit by physician Aasd Guerin MD Work Phone: [facility] Endoscopy Comment on above: History of colonic p olyps [Z86.010] Start: 06-27-2022 End: 06-27-[address] Autmun Almanzar Work Phone: [facility] Start: 06-08-2022 End: 06-08-2022 ambulatory [facility] Work Phone: Start: 06-08-2022 End: 06-08-2022 Patient encounter procedure [facility] Start: 05-15-2022 End: 05-15-[address] Autumn Almanzar Work Phone: [facility] Work Phone: Start: 05-15-2022 End: 05-15-[address] Autumn Almanzar Work Phone: [facility] Start: 05-10-2022 End: 05-10-2022 Patient encounter procedure Manuela Montana APRN.[employer] Work Phone: OB/Gynecology Comment on above: Encounter for routin e gynecologic examination in Medicare patient (Primary Dx); Encounter for Papanicolaou smear for cervical cancer screening Start: 05-10-2022 End: 05-10-2022 Patient encounter status Manuela Montana APRN.[employer] Work Phone: OB/Gynecology Start: 04-28-2022 End: 04-28-2022 Patient encounter procedure Allyson Whitmore PA-C Work Phone: General Surgery Comment on above: History of colonic p olyps (Primary Dx); Encounter for screening for malignant neoplasm of colon Start: 04-13-2022 End: 04-13-[address] Autumn Almanzar Work Phone: [facility] Work Phone: Start: 04-13-2022 End: 04-13-[address] Autumn Almanzar Work Phone: [facility]-Outpatient Bone Densitometry Start: 02-14-2022 End: 02-14-[address] Autumn Almanzar Work Phone: [facility] Start: 12-06-2021 End: 12-06-2021 Patient encounter procedure [facility]-Ultrasound, [facility] Start: 11-23-2021 End: 11-23-2021 [facility] Start: 11-03-2021 End: 11-03-2021 [facility] Date Procedure Procedure Detail Performing Clinician Start: 03-13-2025 MRI of lower extremity Meir Bush MD Work Phone: Start: 02-19-2025 Vitamin D, 25-hydrox y measurement Meir Bush MD Work Phone: Comment on above: Vitamin D StatusDefi ciency: <20 ng/mL (50nmol/L)Insufficiency: 20-30 ng/mL (50-75 nmol/L)Sufficiency: 30-100 ng/mL (75-250 nmol/L)Toxicity: >100 ng/mL (>250 nmol/L) Start: 01-12-2025 CT of abdomen and pe lvis without contrast Deysi Castro DO Work Phone: Start: 01-12-2025 Urnls dip stick/tabl et reagent auto microscopy Deysi Castro DO Work Phone: Start: 01-12-2025 Estimated creatinine clearance Deysi Castro DO Work Phone: Start: 01-07-2025 Plain X-ray abdomen Micaela Castro DO Work Phone: Start: 12-27-2024 Radex ankle complete minimum 3 views Leonardo Moomaw INSTRUMENT REPAIR SPECIALIST.[employer]ICER Work Phone: Start: 11-21-2024 Plain x-ray of pelvi s and lower extremity Meir Bush MD Work Phone: Start: 11-07-2024 X-ray of lumbosacral spine Dr. Gilberto Rasmussen MD Work Phone: Start: 09-29-2024 Computed tomography of abdomen and pelvis with intravenous contrast Meir Bush MD Work Phone: Start: 09-29-2024 Albumin/Globulin ratio Meir Bush MD Work Phone: Start: 09-29-2024 Estimated creatinine clearance Meir Bush MD Work Phone: Start: 09-29-2024 Immunoglobulin M measurement Meir Bush MD Work Phone: Start: 09-29-2024 Urine lambda light c mary measurement Meir Bush MD Work Phone: Start: 08-28-2024 Measurement of renal function Meir Bush MD Work Phone: Comment on above: GFR Calc Start: 08-04-2024 Dual energy X-ray absorptiometry Meir Bush MD Work Phone: Start: 07-09-2024 Anaerobic microbial culture Meir Bush MD Work Phone: Start: 07-09-2024 Bacterial culture Mendel Bush MD Work Phone: Start: 07-09-2024 Gram stain microscopy C paola Bush MD Work Phone: Start: 07-07-2024 CT of [...] dip stick/tabl et reagent auto microscopy Meir Bush MD Work Phone: Start: 10-01-2023 Computed tomography of abdomen and pelvis with intravenous contrast DO Deysi Castro Work Phone: Start: 07-02-2023 Pelvis X-ray DO Deysi Castro Work Phone: Start: 06-08-2023 Anaerobic microbial culture DO Deysi Castro Work Phone: Start: 06-08-2023 Investigation of transfusion reaction DO Deysi Albaer Work Phone: Start: 06-08-2023 Microbial culture, routine DO Deysi Castro Work Phone: Start: 05-18-2023 Anaerobic microbial culture DO Deysi Castro Work Phone: Start: 05-18-2023 Investigation of transfusion reaction DO Deysi Castro Work Phone: Start: 05-18-2023 Microbial culture, routine DO Deysi Castro Work Phone: Start: 05-03-2023 Radiologic exam ches t 2 views Chanel Martinez APRN.CNP Work Phone: Start: 04-19-2023 Plain chest X-ray DO Medhat Castro Work Phone: Start: 04-13-2023 Trichomonas screening test Meir Bush MD Work Phone: Start: 04-06-2023 Radiologic exam [...] 07-24-2022 MRI of brain with contrast Dr. Autumn Almanzar Work Phone: Start: 06-28-2022 Radiologic exam colo n double contrast study Asad Guerin MD Work Phone: Start: 06-28-2022 Gluc bld gluc mntr d ev cleared fda spec home use Osiris Kim MD Work Phone: Start: 06-28-2022 Colonoscopy flx dx w /collj spec when pfrmd [address] Work Phone: Start: 06-28-2022 Colonoscopy Asad perez [...] Activity Detail Author Start: 06-28-2027 Colonoscopy COLONOSCOPY [facility] Start: 06-28-2027 COLORECTAL CANCER SCREENING COLORECTAL CANCER SCREENING [facility] Start: 06-28-2027 Screening for malignant neoplasm of colon [facility] Start: 02-23-2026 Screening for malignant neoplasm of breast Mammogram Screening [facility] Start: 12-27-2025 BP Controlled (<130/80) BP Controlled (<130/80) [facility] Start: 06-28-2025 Colonoscopy COLONOSCOPY [facility] Start: 06-28-2025 COLORECTAL CANCER SCREENING COLORECTAL CANCER SCREENING [facility] Start: 03-24-2025 ambulatory Facility:[facility] Start: 03-23-2025 Influenza vaccination [facility] Start: 03-13-2025 End: 03-13-2025 Patient encounter procedure 03/13/2025 10:00 AM EDT Office Visit OB/Gynecology [address] [place] [address] Manuela Montana APRN.[employer] OFFICER [address] [place] [address] annual OB/Gynecology Comment on above: annual Start: 01-12-2025 [facility] Start: 11-21-2024 Patient referral [facility] Work Phone: Start: 07-23-2024 Advance Directive Discussion Advance Directive Discussion [facility] Start: 03-23-2024 Covid-19 Vaccine ( season) Covid-19 Vaccine ( season) [facility] Start: 03-13-2024 3 comp foot exam completed DIABETIC FOOT EXAM [facility] Start: 03-13-2024 Diabetic foot examination Diabetic Foot Exam [facility] Start: 01-21-2024 BP CONTROLLED (<130/80) BP CONTROLLED (<130/80) [facility] Start: 11-20-2023 Diagnostic radiography of abdomen Abdomen Single View [facility] Start: 11-20-2023 XR Abdomen Single view [facility] Start: 11-08-2023 Patient referral [facility] Work Phone: Start: 06-14-2023 Hemoglobin A1c measurement HbA1C [facility] Start: 06-14-2023 Hemoglobin A1c/Hemoglobin.total in Blood HBA1C [facility] Start: 06-09-2023 Urine microalbumin profile [facility] Start: 05-18-2023 Anaerobic microbial culture Anaerobic Culture [facility] Start: 05-10-2023 BP CONTROLLED (<130/80) BP CONTROLLED (<130/80) [facility] Start: 05-10-2023 Screening for malignant neoplasm of cervix Cervical Cancer Screening [facility] Start: 04-28-2023 BP CONTROLLED (<130/80) BP CONTROLLED (<130/80) [facility] Start: 04-19-2023 Patient referral [facility] Work Phone: Start: 03-23-2023 Covid-19 Vaccine () Covid-19 Vaccine () [facility] Start: 03-23-2023 Influenza vaccination [facility] Start: 02-27-2023 Patient referral [facility] Work Phone: Start: 01-30-2023 [facility] Start: 01-26-2023 Prothrombin time [facility] Start: 01-25-2023 Patient discharge [facility] Start: 01-24-2023 [facility] Start: 01-24-2023 Anaerobic Culture Anaerobic Culture [facility] Start: 01-24-2023 Body Fluid Culture Body Fluid Culture [facility] Start: 01-24-2023 Vital signs measurements [facility] Start: 01-23-2023 Following clinical pathway protocol [facility] Start: 01-23-2023 Ambulation without limitation [facility] Start: 01-23-2023 Assessment of risk of venous thromboembolism [facility] Start: 01-23-2023 Care regimes management [facility] Start: 01-23-2023 Insertion of catheter into peripheral vein [facility] Start: 01-23-2023 Providing care according to standard [facility] Start: 01-23-2023 [facility] Start: 01-23-2023 Verification routine [facility] Start: 01-23-2023 Admission procedure [facility] Start: 01-20-2023 Emergency dept visit high severity&threat funcj EMERGENCY DEPT VISIT HI MDM [facility] Start: 01-20-2023 Iv infusion hydration initial 31 min-1 hour HYDRATION IV INFUSION INIT [facility] Start: 12-25-2022 Patient referral [facility] Work Phone: Start: 12-14-2022 Shingrix Vaccine (2 of 2) Shingrix Vaccine (2 of 2) [facility] Start: 09-16-2022 COVID-19 VACCINE (5 - Moderna series) COVID-19 VACCINE (5 - Moderna series) [facility] Start: 07-23-2022 ADVANCE DIRECTIVE DISCUSSION ADVANCE DIRECTIVE DISCUSSION [facility] Start: 04-13-2022 Dual energy X-ray absorptiometry Dexa Bone Density Study [facility] Work Phone: Start: 02-14-2022 Jardin [place] and lambda light chains [facility] Work Phone: Start: 2021 ADVANCE DIRECTIVE DISCUSSION ADVANCE DIRECTIVE DISCUSSION [facility] Start: 2021 BONE DENSITY BONE DENSITY [facility] Start: 2021 Bone Density Screening Bone Density Screening [facility] Start: 2021 Screening for osteoporosis Bone Density Screening [facility] Start: 10-21-2021 Medicare Annual Wellness Visit Medicare Annual Wellness Visit [facility] Start: 07-29-2021 COVID-19 VACCINE (4 - Booster for Moderna series) COVID-19 VACCINE (4 - Booster for Moderna series) [facility] Start: 06-18-2020 Mammography [facility] Start: 06-18-2020 Screening for malignant neoplasm of breast Mammogram Screening [facility] Start: 04-11-2020 ANNUAL PCP TEAM CHRONIC DISEASE VISIT ANNUAL PCP TEAM CHRONIC DISEASE VISIT [facility] Start: 04-04-2020 Glaucoma screening Dilated Retinal Exam [facility] Start: 04-04-2020 Hepatitis C antibody, confirmatory test DILATED RETINAL EXAM [facility] Start: 03-14-2020 Hepatitis B screening URINE ALBUMIN:CREATININE RATIO [facility] Start: 03-10-2020 3 comp foot exam completed DIABETIC FOOT EXAM [facility] Start: 01-25-2020 Colonoscopy COLONOSCOPY [facility] Start: 01-25-2020 COLORECTAL CANCER SCREENING COLORECTAL CANCER SCREENING [facility] Start: 09-14-2019 Hemoglobin A1c/Hemoglobin.total in Blood HBA1C [facility] Start: 09-14-2019 Hepatitis B surface antibody level LDL CHOLESTEROL [facility] Start: 2016 Hepatitis B Vaccine (1 of 3 - Risk 3-dose series) Hepatitis B Vaccine (1 of 3 - Risk 3-dose series) [facility] Start: 2016 RSV Vaccine (1 - 1-dose 60+ series) RSV Vaccine (1 - 1-dose 60+ series) [facility] Start: 2006 SHINGRIX VACCINE (1 of 2) SHINGRIX VACCINE (1 of 2) [facility] Start: 2001 COLOGUARD (FIT-DNA) COLOGUARD (FIT-DNA) [facility] Start: [address] COLONOGRAPHY [facility] Start: 2001 FECAL OCCULT BLOOD FECAL OCCULT BLOOD [facility] Start: 2001 Screening for malignant neoplasm of colon [facility] Start: 2001 SIGMOIDOSCOPY SIGMOIDOSCOPY [facility] Start: 1974 Annual PCP Team Chronic Disease Visit Annual PCP Team Chronic Disease Visit [facility] Start: 1974 BP Controlled (<130/80) BP Controlled (<130/80) [facility] Start: 1974 HIV SCREENING HIV SCREENING [facility] Start: 1962 Pneumococcal Vaccine: 65+ (1 - PCV) Pneumococcal Vaccine: 65+ (1 - PCV) [facility] Start: 1962 PNEUMOCOCCAL: 65+ (1 - PCV) PNEUMOCOCCAL: 65+ (1 - PCV) [facility] Angiotensin converti ng enzyme [Enzymatic activity/volume] in Serum or Plasma [facility] Bacteria identified in Body fluid by Culture [facility] Bacteria identified in Unspecified specimen by Anaerobe culture [facility] Cyclic citrullinated peptide IgG Ab [Units/volume] in Serum or Plasma [facility] End: 04-12-2026 DBT Breast - bilateral screening VALENTNI SCREENING W GAL Radiology Routine Encounter for screening mammogram for breast cancer 1 Occurrences starting 03/13/2025 until 04/12/2026 [facility] Work Phone: Comment on above: 1 Occurrences starting 03/13/2025 until 04/12/2026 Folate [Mass/volume] in Serum or Plasma [facility] INR in Blood by Coagulation assay [facility] Jardin De [place] and lambda lig ht chains [facility] Jardin [place]/lambda light c mary ratio [facility] Work Phone: Lambda light chains. free [Mass/volume] in Serum or Plasma [facility] Work Phone: Neutrophil cytoplasm ic Ab.classic [Units/volume] in Serum [facility] P-ANCA measurement [facility] PAP FLUID CERVICAL SCREENING PAP FLUID CERVICAL SCREENING Lab Routine Encounter for routine gynecologic examination in Medicare patient Encounter for Papanicolaou smear for cervical cancer screening Ordered: 05/10/2022 [facility] Work Phone: Comment on above: Ordered: 05/10/2022 PAP TEST PAP TEST Lab [address] Encounter for gynecologic examination for high-risk patient covered by Medicare 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) Encounter for Papanicolaou smear for cervical cancer screening 03/13/2025 10:43 AM EDT [facility] Patient Education [facility] Work Phone: Patient referral [facility] Work Phone: End: 04-28-2024 Radiologic exam chest 2 views XR CHEST 2V FRONTAL/LAT Radiology Routine Surgery follow-up 1 Occurrences starting 03/30/2023 until 04/28/2024 [facility] Work Phone: Comment on above: 1 Occurrences starting 03/30/2023 until 04/28/2024 End: 05-05-2024 Radiologic exam chest 2 views XR CHEST 2V FRONTAL/LAT Radiology Routine 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 Work Phone: [facility] Immunizations Immunization Date Immunization Notes Care Provider Kyler joyner 05-19-2024 influenza virus vaccine, unspecified formulation Screen Wstr [facility] 10-19-[address] Gilberto Rasmussen Work Phone: [facility] 04-21-2022 influenza, injectabl e, quadrivalent, preservative free DO Deysi Castro Work Phone: [facility] 04-21-2022 influenza, seasonal, injectable Dr. Gilberto Rasmussen Work Phone: [facility] 04-21-2022 influenza virus vaccine, unspecified formulation Chanel Martinez APRN.CNP Work Phone: [facility] 06-03-2021 Covid (Moderna) Dr. Gilberto Rasmussen Work Phone: [facility] 04-01-2021 Influenza, injectabl e, Madin [place] Canine Kidney, preservative free, quadrivalent Dr. Gilberto Rasmussen Work Phone: [facility] 10-29-2020 Covid (Moderna) Dr. Gilberto Rasmussen Work Phone: [facility] 10-01-2020 Covid (Moderna) Dr. Gilberto Rasmussen Work Phone: [facility] 04-23-2020 influenza, injectabl e, quadrivalent, preservative free DO Deysi Castro Work Phone: [facility] 04-23-2020 influenza, seasonal, injectable Dr. Gilberto Rasmussen Work Phone: [facility] 06-03-2018 influenza, injectabl e, quadrivalent, preservative free DO Deysi Castro Work Phone: [facility] 06-03-2018 influenza, seasonal, injectable Allyson Whitmore PA-C Work Phone: [facility] 04-16-2016 influenza, injectabl e, quadrivalent, preservative free Allyson Whitmore PA-C Work Phone: [facility] 04-16-2016 influenza, seasonal, injectable Dr. Gilberto Rasmussen Work Phone: [facility] 05-22-2014 influenza, injectabl e, quadrivalent, preservative free DO Deysi Castro Work Phone: [facility] 05-22-2014 influenza, seasonal, injectable Allyson Greshamf PA-C Work Phone: [facility] 06-09-2013 influenza virus vaccine, unspecified formulation Allyson Haim PA-C Work Phone: [facility] 06-09-2013 tetanus toxoid, redu bryanna diphtheria toxoid, and acellular pertussis vaccine, adsorbed Allyson [place] PA-C Work Phone: [facility] Payers Date Payer Category Payer Self-pay [id number] 2021 Medicare [id number] 2021 Private Health Insurance [id number] 2021 Medicare [id number] 2021 Unknown [id number] 2013 Unknown [id number] Private Health Insurance [id number] Unknown [id number] Unknown [id number] Unknown [id number] 2.16.8 40.1.287187.3.579.2.462 Unknown [id number] 2.16.8 40.1.341945.3.579.2.462 Unknown [id number] 2.16.8 40.1.868737.3.579.2.462 Unknown [id number] 2.16.8 40.1.809593.3.579.2.462 Unknown [id number] 2.16.8 40.1.843135.3.579.2.462 Unknown [id number] 2.16.8 40.1.556565.3.579.2.462 Unknown [id number] 2.16.8 40.1.607196.3.579.2.462 Unknown [id number] 2.16.8 40.1.723779.3.579.2.462 Unknown [id number] 2.16.8 40.1.837340.3.579.2.462 Unknown [id number] 2.16.8 40.1.303946.3.579.2.462 Unknown [id number] 2.16.8 40.1.090175.3.579.2.462 Unknown [id number] 2.16.8 40.1.839739.3.579.2.462 Unknown [id number] 2.16.8 40.1.004160.3.579.2.462 Unknown [id number] 2.16.8 40.1.540339.3.579.2.462 Unknown [id number] 2.16.8 40.1.725517.3.579.2.462 Unknown [id number] 2.16.8 40.1.575895.3.579.2.462 Unknown [id number] 2.16.8 40.1.883454.3.579.2.462 Unknown [id number] 2.16.8 40.1.951764.3.579.2.462 Unknown [id number] 2.16.8 40.1.777024.3.579.2.462 Unknown [id number] 2.16.8 40.1.636342.3.579.2.462 Unknown [id number] 2.16.8 40.1.974484.3.579.2.462 Unknown [id number] 2.16.8 40.1.764394.3.579.2.462 Unknown [id number] 2.16.8 40.1.395392.3.579.2.462 Unknown [id number] 2.16.8 40.1.206060.3.579.2.462 Unknown [id number] 2.16.8 40.1.361461.3.579.2.462 Unknown [id number] 2.16.8 40.1.252937.3.579.2.462 Unknown [id number] 2.16.8 40.1.383540.3.579.2.462 Unknown [id number] 2.16.8 40.1.741533.3.579.2.462 Unknown [id number] 2.16.8 40.1.053238.3.579.2.462 Unknown [id number] 2.16.8 40.1.157125.3.579.2.462 Unknown [id number] 2.16.8 40.1.445441.3.579.2.462 Unknown [id number] 2.16.8 40.1.803300.3.579.2.462 Unknown [id number] 2.16.8 40.1.076372.3.579.2.462 Unknown [id number] 2.16.8 40.1.403173.3.579.2.462 Unknown [id number] 2.16.8 40.1.071855.3.579.2.462 Social History Date Type Detail Facility Start: 06-13-2021 End: 04-27-2023 Tobacco smoking status NHIS Unknown if ever smoked [facility] Start: 12-14-2018 None [facility] Start: 12-14-2018 With Family [facility] Start: 12-15-2018 Non-smoker [facility] Start: 1955 Sex Assigned At Female C [facility] Start: 11-05-2017 End: 03-10-2025 Tobacco smoking status NHIS Ex-smoker [facility] History of tobacco use Current smoker [facility] History of tobacco use Cigarette Smoker C [facility] History of tobacco use Cigar Smoker [facility] Start: 11-05-2017 End: 03-14-2023 Cigarettes smoked current (pack per day) - Reported 1.5 [facility] Start: 11-05-2017 End: 03-13-2025 Tobacco use and exposure Smokeless tobacco non-user [facility] Start: 04-28-2022 End: 04-23-2023 Alcohol intake Current non-drinker of alcohol (finding) [facility] Start: 05-18-2014 End: 01-20-2023 Tobacco Comment 01/20/14 [facility] Start: 04-18-2022 End: 04-28-2022 Exposure to SARS-CoV-2 (event) Not sure [facility] Start: 01-20-2023 End: 03-14-2023 Tobacco use panel [facility] Start: 06-23-2012 Adult Depression Screening Assessment 0 [facility] Start: 12-26-2021 Gender identity Identifies as female gender (finding) [facility] Start: 12-26-2021 Sexual orientation Heterosexual (fin ding) [facility] Start: 11-06-2023 Tobacco smoking stat us IDIS Never smoked tobacco (finding) [facility] Start: 10-07-2024 End: 11-18-2024 Sex Female (finding) [facility] Start: 03-13-2025 Alcoholic beverage intake Ex-drinker (finding) [facility] Medical Equipment Procedure Code Equipment Code Equipment [...] serious difficulty hearing No 03/24/2023 3:30 PM Ludmila Arana, GURVINDER No [facility] 03-24-2023 Are you blind, or do you have serious difficulty seeing, even when wearing glasses No 03/24/2023 3:30 PM Ludmila Arana, RN No [facility] 03-24-2023 Do you have serious difficulty walking or climbing stairs No 03/24/2023 3:30 PM Ludmila Arana, GURVINDER No [facility] 03-24-2023 Do you have difficul ty dressing or bathing No 03/24/2023 3:30 PM EDT Ludmila Malone RN No [facility] 03-24-2023 Because of a physica l, mental, or emotional condition, do you have difficulty doing errands alone such as visiting a physician's office or shopping No 03/24/2023 3:30 PM EDT Ludmila Malone, GURVINDER No [facility] 01-25-2023 Functional status Ambulates [facility] Work Phone: Mental Status Date Assessment Result Facility 03-24-2023 Because of a physica l, mental, or emotional condition, do you have serious difficulty concentrating, remembering, or making decisions No 03/24/2023 3:30 PM EDT Ludmila Malone RN No [facility] 01-25-2023 Cognitive function Voice/Name [facility] Work Phone: 01-24-2023 Cognitive function Level Of Cons ciousness Awake;Alert;Appropriate;Fol lows Commands [facility] Work Phone: Clinical Notes 11-05-2017 to 03-13-2025 Manuela Montana APRN.[facility] - 03/13/2025 9:33 AM EDTSIndira hammond Mammo Tech - 02/23/2025 2:30 PM EDTAddendum Note - Indira Sebastian Mammo Tech - 02/23/2025 2:30 PM EDT Note Date & Type Note Facility 03-13-2025 Radiology Diagnostic study note [facility] [address], [place] [id number] Extremity Lower without Contra MR#: [id number] Acct: [id number] Name: ART BLUE Rep #: [id number] : [id number] F 69 From: Ajit Tian MD PCP: Dr. Meir Bush MD Status: REG CL I Study:Extremity Lower without Contra Date of Exam: 03/13/25 Exam# [id number] Ordering Dr: Jose Ramon Terry DO PROCEDURE: EXTREMITY LOWER WITHOUT CONTRA 03/13/2025 REASON FOR EXAM: TEMPLATING FOR RIGHT DUNCAN TECHNIQUE: [facility] right hip noncontrasted CT, templating for right DUNCAN.. Coronal and Sagittal reconstruction series were provided. One or more dose reduction techniques were used (e.g., Automated exposure control, adjustment of the mA and/or kV according to patient size, use of iterative reconstruction technique). RADIATION DOSE SUMMARY: CTDlvol: 27.88 mGy DLP: 790.99 mGycm COMPARISON: Right hip and pelvis series of 11/21/2024. FINDINGS: Degenerative changes are prominently seen of the visualized portions of the lower lumbar spine. Mild sacroiliac joint degenerative changes are noted. Prominent calcification of the visualized distal aorta and iliac arteries, without evidence of aneurysmal dilation in visualized areas. Limited imaging of the left hip demonstrates mild degenerative changes. Much more advanced right hip degenerative changes are seen, with severe superiorjoint narrowing and osseous reactive changes. Limited imaging of the right knee shows no joint effusion. At least mild degenerative changes are present. CT/Extremity Lower without Contra IMPRESSION: Successful [facility] right hip CT, as noted. Reading Location: [place] [address] CC: Dr. Meir Bush MD; Dr. Jose Ramon Terry DO ~ Investment Underwriter: Signed [facility] 03-13-2025 Note HNO ID: [id number] Author: MANUELA MONTANA APRN.[employer] OFFICER Service: ? Author Type: Nurse Practitioner Type: Progress Notes Filed: 03/13/2025 11:30 Note Text: Art is a 69 year old who presents for an annual gynecologic exam without complaints. - Scheduled for hip replacement surgery in 9 days at [facility]. Plans to stay in a facility for rehabilitation post-surgery due to her 's severe neuropathy, which limits his ability to assist at home. Postmenopausal: Yes since age Late 40's, early 50's HRT use: No. Last Pap: 05/10/2022 normal HPV: 05/10/2022 negative History of abnormal pap: Yes - cryo 20's Last mammogram: 2024 normal History of abnormal mammogram: No Sexually active: No Vaginal dryness: No Menopause symptoms: None Bothersome pelvic pain: No Documentation from previous visit of 05/10/2022 was copied and pasted, documentation has been reviewed and edited as necessary for today's visit. OB History Gravida1 Para1 Term0 Preterm1 AB0 Living1 SAB0 IAB0 Ectopic0 Multiple0 Live Births0 [place]out[place]ier History LMP: Postmenopausal Age at Menarche: 13 Age at First : Age at Menopause: Coutierier History Comments: Sexual Activity: Not Currently; Male; [...] LDL goal < 100 05/13/2014 Incisional hernia 02/12/2014 Meningioma (HCC) 12/26/2017 12/26/17: 5 mm. 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) 06/15/2015 Type II or unspecified type diabetes mellitus without mention of complication, uncontrolled PAST SURGICAL HISTORY Procedure Laterality Date COLONOSCOPY 06/28/2022 repeat in 5 years ESOPHAGOGASTRODUODENOSCOPY TRANSORAL DIAGNOSTIC 05/27/2008 GASTRIC BYPASS 05/28/2006 [place]-en-Y gastric bypass IRIDOTOMY/IRIDECTOMY BY LASER 07/23/2004 bilat NEUROPLASTY AND/TRANSPOS MEDIAN NRV CARPAL TUNNE 10/31/2013 Carpal tunnel decomp Left PAST SURGICAL HISTORY OF vulcan PAST SURGICAL HISTORY OF 2014 panelectomy REPAIR INCISIONAL HERNIA 02/12/[address] Guerin FAMILY HISTORY Problem Relation Age of Onset Hypertension Mother Arthritis Mother Heart Father Hypertension Father Hypertension Brother Cancer Brother something in his face SOCIAL HISTORY Social History Tobacco Use Smoking status: Former Current packs/day: 1.50 Average packs/day: 1.5 packs/day for 35.0 years (52.5 ttl pk-yrs) Types: Cigarettes, Cigars Smokeless tobacco: Never Tobacco comments: 01/20/14 Vaping Use Vaping status: Never Used Substance Use Topics Alcohol use: Not Currently Drug use: Not Currently Types: Marijuana REVIEW OF SYSTEMS Abdomen: No abdominal pain, nausea, vomiting, diarrhea, or constipation. No bloating, early satiety, indigestion, or increased flatulence. Bladder: No dysuria, gross hematuria, urinary frequency, urinary urgency, or incontinence Breast: No breast lumps, nipple d/c, overlying skin changes, redness or skin retraction Allergies and current medication updated:Yes SENSITIVE EXAM: The sensitive examination was discussed with the Patient or Patient's Authorized Fire Hydrant Operator. As applicable, any other physician, advance practice provider, medical student, or other health professional student that will be observing or involved in the sensitive examination for educational or training purposes was discussed with the Patient or Authorized Fire Hydrant Operator. The Patient or Authorized Fire Hydrant Operator has agreed to proceed with the sensitive examination. (Sensitive examination includes inspection and/or palpation of the breasts, pelvis, prostate and anorectal regions). EXAM: BP 122/80 Pulse 84 Resp 14 Ht 5' 5 (1.65m) Wt 230 lb (104.3kg) SpO2 96% BMI 38.27 kg/(m2). GENERAL: pleasant, female in no apparent distress [...] external genitalia normal, normal Bartholin's glands, urethra, Belding's glands, no vulvar lesions, no cervical lesions, physio (more content not included)... [facility] 03-13-2025 History of Presen t illness Narrative Art is a 69 year old who presents for an annual gynecologic exam without complaints. - Scheduled for hip replacement surgery in 9 days at [facility]. Plans to stay in a facility for rehabilitation post-surgery due to her 's severe neuropathy, which limits his ability to assist at home. Postmenopausal: Yes since age Late 40's, early 50's HRT use: No. Last Pap: 05/10/2022 normal HPV: 05/10/2022 negative History of abnormal pap: Yes - cryo ' Last mammogram: 2024 normal History of abnormal mammogram: No Sexually active: No Vaginal dryness: No Menopause symptoms: None Bothersome pelvic pain: No Documentation from previous visit of 05/10/2022 was copied and pasted, documentation has been reviewed and edited as necessary for today's visit. OB History Gravida1 Para1 Term0 Preterm1 AB0 Living1 SAB0 IAB0 Ectopic0 Multiple0 Live Births0 [place]out[place]ier History LMP: Postmenopausal Age at Menarche: 13 Age at First : Age at Menopause: Coutierier History Comments: Sexual Activity: Not Currently; Male; [...] LDL goal < 100 05/13/2014 Incisional hernia 02/12/2014 Meningioma (HCC) 12/26/2017 12/26/17: 5 mm. 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) 06/15/2015 Type II or unspecified type diabetes mellitus without mention of complication, uncontrolled PAST SURGICAL HISTORY Procedure Laterality Date COLONOSCOPY 06/28/2022 repeat in 5 years ESOPHAGOGASTRODUODENOSCOPY TRANSORAL DIAGNOSTIC 05/27/2008 GASTRIC BYPASS 05/28/2006 [place]-en-Y gastric bypass IRIDOTOMY/IRIDECTOMY BY LASER 07/23/2004 bilat NEUROPLASTY &/TRANSPOS MEDIAN NRV CARPAL TUNNE 10/31/2013 Carpal tunnel decomp Left PAST SURGICAL HISTORY OF vulcan PAST SURGICAL HISTORY OF 2014 panelectomy REPAIR INCISIONAL HERNIA 02/12/[address] Guerin FAMILY HISTORY Problem Relation Age of Onset Hypertension Mother Arthritis Mother Heart Father Hypertension Father Hypertension Brother Cancer Brother something in his face SOCIAL HISTORY Social History Tobacco Use Smoking status: Former Current packs/day: 1.50 Average packs/day: 1.5 packs/day for 35.0 years (52.5 ttl pk-yrs) Types: Cigarettes, Cigars Smokeless tobacco: Never Tobacco comments: 01/20/14 Vaping Use Vaping status: Never Used Substance Use Topics Alcohol use: Not Currently Drug use: Not Currently Types: Marijuana REVIEW OF SYSTEMS Abdomen: No abdominal pain, nausea, vomiting, diarrhea, or constipation. No bloating, early satiety, indigestion, or increased flatulence. Bladder: No dysuria, gross hematuria, urinary frequency, urinary urgency, or incontinence Breast: No breast lumps, nipple d/c, overlying skin changes, redness or skin retraction Allergies and current medication updated:Yes SENSITIVE EXAM: The sensitive examination was discussed with the Patient or Patient's Authorized Fire Hydrant Operator. As applicable, any other physician, advance practice provider, medical student, or other health professional student that will be observing or involved in the sensitive examination for educational or training purposes was discussed with the Patient or Authorized Fire Hydrant Operator. The Patient or Authorized Fire Hydrant Operator has agreed to proceed with the sensitive examination. (Sensitive examination includes inspection and/or palpation of the breasts, pelvis, prostate and anorectal regions). EXAM: BP 122/80 Pulse 84 Resp 14 Ht 5' 5 (1.65m) Wt 230 lb (104.3kg) SpO2 96% BMI 38.27 kg/(m^2). GENERAL: pleasant, female in no apparent [...] external genitalia normal, normal Bartholin's glands, urethra, Belding's glands, no vulvar lesions, no cervical lesions, physiologic discharge present, normal appearing perineal body and perianal region BIMANUAL: non-tender Difficult exam due to body habitus RECTOVAGINAL: deferred. NEURO: alert and oriented x3,exam grossly non-focal EXTREMITIES: normal ASSESSMENT/PLAN: 1) Health maintenance: 2. 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) (D84.821) 3. Encounter for Papanicolaou smear for cervical cancer screening (Z12.4) - On methotrexate for rheumatoid arthritis, which increases risk for cervical dysplasia due to immunosuppression. - History of abnormal Pap in her 20s with cryotherapy; last Pap in 2021. - Performed Pap test today; explained need for Pap every 3 years while on immunosuppressive therapy. - Educated on rationale for increased Pap frequency due to immunosuppression and potential HPV reactivation. - Discussed Medicare coverage for high-risk Pap testing every 2 years, but not for routine HPV testing unless atypical cells are found. Mammogram ordered Mammogram up to date Nutrition, exercise and routine health maintenance exams reviewed. Calcium/Vitamin D supplementation information provided. Colon cancer screening: up to date with screening PCP BMD: up to date PCP 2) Follow up one year or sooner as needed Manuela Montana APRN.[employer] OFFICER documented in this encounter [facility] 02-23-2025 History of Presen t illness Narrative Radiology Service Progress Note PATIENT NAME: Art Blue DATE OF SERVICE: February 23, 2025 TIME: 2:53 PM PATIENT IDENTITY VERIFICATION COMPLETED USING TWO (2) IDENTIFIERS: Name and Date of confirmed by patient verbally. FALL SCREENING: Has the patient had 2 falls in the last year or 1 fall with injury or currently using an Ambulatory Assistive Device (Walker, Cane, Wheelchair, Crutches, etc.)? Yes, assisted with walking PATIENT GENDER DATA: Assigned female at . status: : No status: NO. PATIENT RELEVANT IMPLANT DATA REVIEWED: Not Applicable PATIENT PRESENTS WITH AN IMPLANTABLE OR ATTACHED PILOT BOAT OPERATOR: No RADIOLOGY DEPARTMENT: Mammography PERIPHERAL IV DATA: Not applicable SIGNED BY: Ed Marte February 23, 2025 2:53 PM documented in this encounter [facility] 02-23-2025 Miscellaneous Notes Encounter addended by: Indira Sebastian Mammo Tech on: 02/23/2025 3:20 PM Actions taken: Clinical Note Signed documented in this encounter [facility] 02-23-2025 Note Encounter addended b y: Indira Sebastian Mammo Tech on: 02/23/2025 3:20 PM Actions taken: Clinical Note Signed [facility] 02-23-2025 Note HNO ID: [id number] Author: INDIRA SEBASTIAN Mammo Tech Service: ? Author Type: Technologist Type: Progress Notes Filed: 02/23/2025 15:20 Note Text: Radiology Service Progress Note PATIENT NAME: Art Blue DATE OF SERVICE: February 23, 2025 TIME: 2:53 PM PATIENT IDENTITY VERIFICATION COMPLETED USING TWO (2) IDENTIFIERS: Name and Date of confirmed by patient verbally. FALL SCREENING: Has the patient had 2 falls in the last year or 1 fall with injury or currently using an Ambulatory Assistive Device (Walker, Cane, Wheelchair, Crutches, etc.)? Yes, assisted with walking PATIENT GENDER DATA: Assigned female at . status: : No status: NO. PATIENT RELEVANT IMPLANT DATA REVIEWED: Not Applicable PATIENT PRESENTS WITH AN IMPLANTABLE OR ATTACHED PILOT BOAT OPERATOR: No RADIOLOGY DEPARTMENT: Mammography PERIPHERAL IV DATA: Not applicable SIGNED BY: Ed Marte February 23, 2025 2:53 PM [facility] 01-13-2025 Discharge summary Note Date/Time January 13, 2025 7:00 pm [facility] [address] [place] [address] [address] [place] [address] / REHABILITATION SERVICES DISCHARGE SUMMARY MR#: [id number] Acct: [id number] Name: ART BLUE Rep #: [id number] 8 : 1955 69 From: Jesse MUÑOZ T Referring Dr.: Dr. Jose Ramon Terry, DO Status: REG RCR Insurance: MEDICARE PART A B [employer] Discharge Summary D/C summary: It has been my pleasure to treat ART BLUE referred by Dr. Jose Ramon Terry DO, with the diagnosis of R hip OA for a total of 10 visit(s). Discharge Date: 01/13/25 Please see the following information for a summary of their discharge status. Subjective Subjective: Pt. reports overall doing a little bit better, but very painful today. Pt. reports she is having a flare up of her fibro. Pt. reports not as much pain in her hip today. Pt. is to see physician in February about potential hip surgery. Pain R hip: Pain Intensity (Out of 10): 5 L foot: Pain Intensity (Out of 10): 5 whole body: Pain Intensity (Out of 10): 8 Overall Improvement % Improvement: 30 Objective Objective/Function: MMT: LLE: knee: ext 36.5#, flex 30.4#; hip flex 21.9# RLE: knee: ext 43.0#, flex 20.7#; hip: flex 15.9# GAIT: pt. continues to have an antalgic gait pattern. with use of single point cane. Pt. still having issues with pain, but also compounded by her fibro. She is planning on having surgery later this year. She is going to use the pool to continue with her exercises until then. Goals Goal 1:: LTG: Pt to be I with HEP. Goal Progress: Goal Met Goal 2:: LTG: Pt. to be able to ambulate without antalgic pattern Goal Progress: Progressing Goal 3:: LTG: pt. to have symmetrical BLE strength. Goal Progress: Progressing Goal 4:: LTG: Pt. to complete 30sec sit to stand rep test with at least 13 reps Goal Progress: Progressing Goal 5:: LTG: Pt. to complete TUG with time less than 20sec. Goal Progress: Goal Met Plan Plan: Pt. to be DC from PT at this point in time. D/C Information d/c sentence: If there are questions or concerns regarding this patient's physical therapy, please feel free to call me at [phone]. Thank you for the referral of thispatient. Sincerely, Jesse Wang Sipos, DPT Balance/Gait/Functional tests Balance/Special Test Scores Lower Extremity Functional Score: 29 TUG Test Time Seconds: 15.5 Tug Test: <20 sec.=mostly independent 30 Second Chair Rise Test Seconds: 11 Improvement % Improvement: 30 <Electronically signed by Jesse MUÑOZT> 01/13/25 1058 CC: Dr. Meir Bush MD; Dr. Jose Ramon Terry DO ~ CLS Signed [facility] Work Phone: 1(297) 362-837806-24-2025 Discharge summary [facility] [address] [place] [address] / REHABILITATION SERVICES DISCHARGE SUMMARY MR#: [id number] Acct: [id number] Name: ART BLUE Rep #: [id number] 8 : 1955 69 From: Jesse MUÑOZ T Referring Dr.: Dr. Jose Ramon Terry DO Status: REG RCR Insurance: MEDICARE PART A B [facility] Discharge Summary D/C summary: It has been my pleasure to treat ART BLUE referred by Dr. Jose Ramon Terry DO, with the diagnosis of R hip OA for a total of 10 visit(s). Discharge Date: 01/13/25 Please see the following information for a summary of their discharge status. Subjective Subjective: Pt. reports overall doing a little bit better, but very painful today. Pt. reports she is having a flare up of her fibro. Pt. reports not as much pain in her hip today. Pt. is to see physician in February about potential hip surgery. Pain R hip: Pain Intensity (Out of 10): 5 L foot: Pain Intensity (Out of 10): 5 whole body: Pain Intensity (Out of 10): 8 Overall Improvement % Improvement: 30 Objective Objective/Function: MMT: LLE: knee: ext 36.5#, flex 30.4#; hip flex 21.9# RLE: knee: ext 43.0#, flex 20.7#; hip: flex 15.9# GAIT: pt. continues to have an antalgic gait pattern. with use of single point cane. Pt. still having issues with pain, but also compounded by her fibro. She is planning on having surgery later this year. She is going to use the pool to continue with her exercises until then. Goals Goal 1:: LTG: Pt to be I with HEP. Goal Progress: Goal Met Goal 2:: LTG: Pt. to be able to ambulate without antalgic pattern Goal Progress: Progressing Goal 3:: LTG: pt. to have symmetrical BLE strength. Goal Progress: Progressing Goal 4:: LTG: Pt. to complete 30sec sit to stand rep test with at least 13 reps Goal Progress: Progressing Goal 5:: LTG: Pt. to complete TUG with time less than 20sec. Goal Progress: Goal Met Plan Plan: Pt. to be DC from PT at this point in time. D/C Information d/c sentence: If there are questions or concerns regarding this patient's physical therapy, please feel free to call me at [phone]. Thank you for the referral of thispatient. Sincerely, Jesse Thrasher, DPT Balance/Gait/Functional tests Balance/Special Test Scores Lower Extremity Functional Score: 29 TUG Test Time Seconds: 15.5 Tug Test: <20 sec.=mostly independent 30 Second Chair Rise Test Seconds: 11 Improvement % Improvement: 30 01/13/25 1058 CC: Dr. Meir Bush MD; Dr. Jose Ramon Terry, ~ CLS Signed [facility]06-23-2025 Radiology Diagnostic study note [facility] [address] [place], [place] [id number] Abdomen/Pelvis without Cont MR#: [id number] Acct: [id number] Name: ART BLUE Rep #: [id number] 8 : 1955 F 69 From: Rex Portillo MD PCP: Dr. Meir Bush MD Status: REG ER Study:Abdomen/Pelvis without Cont Date of Exa m: 01/12/25 Exam# [id number] Ordering Dr: Edith Enamorado DO PROCEDURE: ABDOMEN/PELVIS WITHOUT CONT 01/12/2025 REASON FOR EXAM: LEFT FLANK PAIN TECHNIQUE: ABDOMEN/PELVIS WITHOUT CONT Noncontrast technique limits evaluation of the abdominal and pelvic viscera. Coronal and Sagittal reconstruction series were provided. One or more dose reduction techniques were used (e.g., Automated exposure control, adjustment of the mA and/or kV according to patient size, use of iterative reconstruction technique). Dose report: CTDI L volume: 21.3 mGy. DLP: 1131.89 COMPARISON: Prior study dated September 29, 2024. FINDINGS: Lung bases: Stable mild linear scarring at the right lung base. Coronary arterycalcification. Liver: Normal size. No obvious mass. Gallbladder: Unremarkable Spleen: Normal size. Pancreas: Normal size. No surrounding inflammation. Adrenals: 1.6 cm adenoma in the right adrenal gland. 2.2 cm low-density lesion in the left adrenal gland. This is suggestive of adenoma. There has been no change. Kidneys: 6 mm nonobstructive calculus in the lower pole calyx of the right kidney. No evidence of ureteral obstruction. Bladder: Unremarkable. Reproductive Organs: Prior hysterectomy. Adnexal regions are unremarkable. Bowel: Evidence of prior gastric bypass surgery. Appendix: The appendix is not identified. There is no inflammatory process identified in the right lower quadrant to suggest appendicitis. Lymph nodes: Vasculature: Mild diffuse atherosclerotic calcifications are noted. A filter isseen within the inferior vena cava. Peritoneum / Retroperitoneum: Unremarkable Bones: Degenerative changes of the spine. CT/Abdomen/Pelvis without Cont IMPRESSION: Bilateral adrenal nodules as described suggestive of adenomas. Nonobstructive calculus in the lower pole calyx of the right kidney. No obstructive uropathy is seen at this time. Reading Location: [id number] CC: Dr. Meir Bush MD; Dr. Juan Manuel Enamorado, DO ~ Investment Underwriter: Signed [facility]06-19-2025 Radiology Diagnostic study note [facility] [address] [place] [address] Abdomen Single View MR#: [id number] Acct: [id number] Name: ART BLUE Rep #: [id number] 4 : 1955 F 69 From: Abb casey Arshad MD PCP: Dr. Meir Bush MD Status: REG CL I Study:Abdomen Single View Date of Exam: 01/07/25 Exam# [id number] Ordering Dr: Indira Valdez NP, NP-Sheryl PROCEDURE: ABDOMEN SINGLE VIEW 01/07/2025 REASON FOR EXAM: LOOKING FOR KIDNEY STONES TECHNIQUE: ABDOMEN SINGLE VIEW COMPARISON: 09/29/2024. FINDINGS: Suspected 4 mm right renal stone. No definite calcifications overlying the left kidney. Normal visualized lung bases. There is an unremarkable bowel gas pattern. There is no demonstrated free abdominal air. Normal visualized liver. Normal visualized spleen. Metallic clips are noted in the pelvis. The soft tissue structures of the pelvis are unremarkable. Diffuse spondylosis. Degenerative joint disease. RAD/Abdomen Single View IMPRESSION: Suspected 4 mm right renal stone. No definite calcifications overlying the left kidney. Reading Location: [place] [address] CC: Indira Valdez; Dr. Meir Bush MD ~ Investment Underwriter: Signed [facility]06-09-2025 Telephone encounter Note* Telephone Encounter - Lucy Trujillo RN - 12/29/2024 8:46 AM EDT Patient notified of results and provider's instructions. Patient verbalizes understanding. Lucy Trujillo RN [facility]06-09-2025 Miscellaneous Notes* Telephone Encounter - Lucy Trujillo RN - 12/29/2024 8:46 AM EDT Patient notified of results and provider's instructions. Patient verbalizes understanding. Lucy Trujillo RN * Telephone Encounter - Larisa West LPN - 12/29/2024 7:42 AM EDT Left message for patient to return call for results.Larisa West LPN * Telephone Encounter - Leonardo Dhillon APRN.CNP - 12/27/2024 12:56 PM EDT Attempted to contact patient to inform her that the x-ray of her ankle showed no sign of fracture or dislocation. I do feel that symptoms are more consistent with a generalized sprain/strain and she should resume activities as tolerated and follow-up with her family doctor as needed. [facility] Telephone encounter Note * Telephone Encounter - Larisa West LPN - 12/29/2024 7:42 AM EDT Left message for patient to return call for results.Larisa West LPN [facility]06-07-2025 Telephone encounter Note* Telephone Encounter - Leonardo Dhillon APRN.CNP - 12/27/2024 12:56 PM EDT Attempted to contact patient to inform her that the x-ray of her ankle showed no sign of fracture or dislocation. I do feel that symptoms are more consistent with a generalized sprain/strain and she should resume activities as tolerated and follow-up with her family doctor as needed. [facility] Work Phone: 1(817) 918-445606-07-2025 History of Present illness Narrative* [place], RT(R) - 12/27/2024 10:30 AM EDT Radiology Service Progress Note [...] Cane, Wheelchair, Crutches, etc.)? Yes, Patient High Riskfor Falls What interventions were put in place to prevent falls during this visit? Increased Observations by Caregivers PATIENT GENDER DATA: Assigned female at . status: : No status:NO. PATIENT RELEVANT IMPLANT DATA REVIEWED: Not Applicable PATIENT PRESENTS WITH AN IMPLANTABLE OR ATTACHED PILOT BOAT OPERATOR: No RADIOLOGY DEPARTMENT: General X-ray: Exam(s) Completed: Lower Extremity X- Ray(s): Ankle, Left PERIPHERAL IV DATA: Not applicable SIGNED BY: RT Muna(Laverne) December 27, 2024 10:31 AM documented in this encounterOhiohealth06-07-2025 NoteHNO ID: [id number] Author: [place] RT(R) Service: ? Author Type: Technologist Type: Progress [...] PATIENT PRESENTS WITH AN IMPLANTABLE OR ATTACHED PILOT BOAT OPERATOR: No RADIOLOGY DEPARTMENT: General X-ray: Exam(s) Completed: Lower Extremity X-Ray(s): Ankle, Left PERIPHERAL IV DATA: Not applicable SIGNED BY: RT Muna(Laverne) December 27, 2024 10:31 [facility]06-07-2025 NoteHNO ID: [id number] Author: LEONARDO DHILLON APRN.[employer] OFFICER Service: ? Author Type: Nurse Practitioner Type: Progress Notes Filed: 12/27/2024 12:59 Note Text: This note was created using [employer]. Subjective Art Blue is a 69 year [...] ANKLE GENERAL 3V AP/LAT/OBL LEFT Leonardo Dhillon APRN.[facility] History of Present illness Narrative* Leonardo Dhillon APRN.CNP - 12/27/2024 10:24 AM EDT This note was created using [employer]. Kasey Blue is a 69 year old female. HPI Patient complains of ongoing left ankle pain over the last 5 months however about 2 days ago she fell and then while walking she felt a popping sensation in her left ankle. She does note a history ofosteoarthritis in that ankle and notes that her [...] LEFT Leonardo Dhillon APRN.ERAN documented in this encounterOhio[facility]05-02-2025 Evaluation note* Diagnosis Onset Date Resolution Status Admit Date Obesity acute November 21, 2024 9:59am Primary osteoarthritis of ri ght hip acute November 21, 2024 9: 59am Spinal stenosis of lumbar re gion with neurogenic claudication acute November 21, 2024 9:59am Polyneuropathy chronic November 21 9:59am Fatigue chronic December 08, 2024 11:32am Fibromyalgia acute January 29 025 10:49am Peripheral vestibulopathy acute January 29, 2025 10:49am Fatigue chronic January 29 10:49am Restless legs syndrome chronic 2024 10:49am Obesity acute February 25 9:44am Primary osteoarthritis of ri ght hip acute February 25, 2025 9:44am Spinal stenosis of lumbar re gion with neurogenic claudication acute Feb 9:44am Polyneuropathy chronic February 9:44am [facility] Work Phone: 1(533) 600-359305-02-2025 Evaluation note* Diagnosis Onset Date Resolution Status Admit Date Obesity acute November 21, 2024 9:59am Primary osteoarthritis of ri ght hip acute November 21, 2024 9: 59am Spinal stenosis of lumbar re gion with neurogenic claudication acute November 21, 2024 9:59am Polyneuropathy chronic November 21 025 9:59am Fatigue chronic December 08, 2024 11:32am Fibromyalgia acute January 29 10:49am Peripheral vestibulopathy acute January 29, 2025 10:49am Fatigue chronic January 29 10:49am Restless legs syndrome chronic 2024 10:49am Obesity acute February 25 9:44am Primary osteoarthritis of ri ght hip acute February 25, 2025 9:44am Spinal stenosis of lumbar re gion with neurogenic claudication acute Feb 9:44am Polyneuropathy chronic February 9:44am Fatigue chronic March 09 025 11:23am [facility] Work Phone: 1(622) 255-209104-17-2025 Evaluation note* Diagnosis Onset Date Resolution Status Admit Date Fatigue chronic November 06 11:28am Lumbar radiculopathy acute Apr2024 1:47pm Other intervertebral disc degeneration, lumbar region acute 2024 1:47pm Primary osteoarthritis of ri ght hip acute November 07, 2024 1:47pm Spinal stenosis of lumbar re gion with neurogenic claudication acute Apr 2024 1:47pm Obesity acute November 21, 2024 9:59am Primary osteoarthritis of ri ght hip acute November 21, 2024 9: 59am Spinal stenosis of lumbar re gion with neurogenic claudication acute November 21, 2024 9:59am Polyneuropathy chronic November 21 025 9:59am Fatigue chronic December 08, 2024 11:32am Fibromyalgia acute January 29 025 10:49am Peripheral vestibulopathy acute January 29, 2025 10:49am Fatigue chronic January 29 10:49am Restless legs syndrome chronic 2024 10:49am [facility] Work Phone: 1(319) 929-312303-13-2025 Evaluation note* Diagnosis Onset Date Resolution Status Admit Date Fatigue chronic October 02 11:25am Bilateral adrenal adenomas chronic October 06, 2024 10:58am Elevated serum immunoglobuli n free light chain level chronic September 10:58am Fatty liver chronic October 06 10:58am Fatigue chronic November 06 11:28am Lumbar radiculopathy acute Apri 2024 1:47pm Other intervertebral disc degeneration, lumbar region acute Apri 2024 1:47pm Primary osteoarthritis of ri ght hip acute November 07, 2024 1:47pm Spinal stenosis of lumbar re gion with neurogenic claudication acute Oct 1:47pm Obesity acute November 21, 2024 9:59am Primary osteoarthritis of ri ght hip acute November 21, 2024 9: 59am Spinal stenosis of lumbar re gion with neurogenic claudication acute November 21, 2024 9:59am Polyneuropathy chronic November 21 9:59am Fatigue chronic December 08, 2024 11:32am [facility] Work Phone: 1(277) 525-995803-13-2025 Evaluation note* Diagnosis Onset Date Resolution Status Admit Date Fatigue chronic October 02 11:25am Bilateral adrenal adenomas chronic October 06, 2024 10:58am Elevated serum immunoglobuli n free light chain level chronic September 10:58am Fatty liver chronic October 06 10:58am Fatigue chronic November 06 11:28am Lumbar radiculopathy acute Apri l 2024 1:47pm Other intervertebral disc degeneration, lumbar region acute Apri 2024 1:47pm Primary osteoarthritis of ri ght hip acute November 07, 2024 1:47pm Spinal stenosis of lumbar re gion with neurogenic claudication acute Apr 2024 1:47pm Obesity acute November 21, 2024 9:59am Primary osteoarthritis of ri ght hip acute November 21, 2024 9: 59am Spinal stenosis of lumbar re gion with neurogenic claudication acute November 21, 2024 9:59am Polyneuropathy chronic November 21, 2 025 9:59am Fatigue chronic December 08, 2024 11:32am Peripheral vestibulopathy acute January 29, 2025 10:49am Fatigue chronic January 29 10:49am Restless legs syndrome chronic 2024 10:49am [facility] Work Phone: 1(902) 725-365003-10-2025 Radiology Diagnostic study note [facility] [address] [place] [address] Abdomen/Pelvis W IV Cont ONLY MR#: [id number] Acct: [id number] Name: ART BLUE Rep #: [id number] 4 : 1955 F 68 From: Candice Rueda MD PCP: Dr. Meir Bush MD Status: REG CL I Study:Abdomen/Pelvis W IV Cont ONLY Date of E xam: 09/29/24 Exam# [id number] Ordering Dr: Eugene Mckenzie MD EXAM: CT [...] disease throughout the lumbar spine. Degenerative facet arthropathythroughout the lumbar spine, most prominent in the [...] spine as described. Reading Location: [facility] CC: Dr. Meir Bush MD; Dr. Jose Ramon Mckenzie MD ~ Investment Underwriter: Signed [facility]02-11-2025 Evaluation note* Diagnosis Onset Date Resolution Status Admit Date Fatigue chronic September 02, 2024 10:44am Fatigue chronic October 02 11:25am Bilateral adrenal adenomas chronic October 06, 2024 10:58am Elevated serum immunoglobuli n free light chain level chronic September 10:58am Fatty liver chronic October 06 025 10:58am Fatigue chronic November 06 11:28am Lumbar radiculopathy acute Apri l 2024 1:47pm Other intervertebral disc degeneration, lumbar region acute Apri l 2024 1:47pm Primary osteoarthritis of ri ght hip acute November 07, 2024 1:47pm Spinal stenosis of lumbar region with neurogenic claudication acute November 07, 2024 1:47pm Obesity acute November 21, 2024 9:59am Primary osteoarthritis of ri ght hip acute November 21, 2024 9: 59am Spinal stenosis of lumbar region with neurogenic claudication acute November 21, 2024 9: 59am Polyneuropathy chronic November 21, 025 9:59am [facility] Work Phone: 1(223) 360-790301-09-2025 Evaluation note* Diagnosis Onset Date Resolution Status Admit Date Peripheral vestibulopathy acute July 31, 2024 1:29pm Fatigue chronic July 31, 2 025 1:29pm Restless legs syndrome [facility] 2024 1:29pm Fatigue chronic September 02, 2024 10:44am Fatigue chronic March 13th, 20 25 11:25am Hematuria acute October 06 10:58am Bilateral adrenal adenomas chronic October 06, 2024 10:58am Elevated serum immunoglobuli n free light chain level chronic September 10:58am [facility] Work Phone: 1(928) 173-717901-09-2025 Evaluation note* Diagnosis Onset Date Resolution Status Admit Date Peripheral vestibulopathy acute July 31, 2024 1:29pm Fatigue chronic July 31, 025 1:29pm Restless legs syndrome chronic nuary 2024 1:29pm Fatigue chronic September 02, 2024 10:44am Fatigue chronic October 02 11:25am Bilateral adrenal adenomas chronic October 06, 2024 10:58am Elevated serum immunoglobuli n free light chain level chronic September 10:58am Fatty liver chronic October 06 10:58am [facility] Work Phone: 1([phone]) 309-860101-09-2025 Evaluation note* Diagnosis Onset Date Resolution Status Admit Date Peripheral vestibulopathy acute July 31, 2024 1:29pm Fatigue chronic July 31, 025 1:29pm Restless legs syndrome chronic [facility] 2024 1:29pm Fatigue chronic September 02, [...] neurogenic claudication acute November 07, 2024 1:47pm [facility] Work Phone: 1(577) 913-405212-01-2023 Progress note Author Mari Veliz [facility] June 22, 2023 2:08pm Note Date/Time June 22, 2023 2 :08pm [facility] [address] [place] [address] Progress Note - Wound Care 06/22/23 1402 MR#: [id number] Acct: [id number] Name: ART BLUE Rep #:[id number] : 1955 67 From: Mari Veliz [...] of February and discharged on Mar.24 from [facility] for pneumonia and pleural effusion which need [...] 83 16 137/61 H Room Air 06/22/23 10:09 06/22/23 10:09 06/22/23 10:09 06/22/23 10:09 06/22/23 10:09 Oxygen Delivery Method Room Air Weight: [...] Start: 06/22/23 10:08 Freq: Status: Active Protocol: CHERYL.BELLA Activity Type Activity Date Activity User E-sign Co-sign Detail Recorded Client Recorded Date Recorded By Document 06/22/23 10:09 [facility] [employer] 06/22/23 10:17 [facility] 06/22/23 10:09 - Today's Visit Information Type of service Follow-up Visit (Physician/[employer] OFFICER ) Arrival Mode Ambulatory Transfer Assistance None [...] Is Patient Pain Free? Yes - Nurse 1 - General Ulcer Measurement Start: 06/22/23 10:08 Freq: Status: Active Protocol: Activity Type Activity Date Activity User E-sign Co-sign Detail Recorded Client Recorded Date Recorded By Document 06/22/23 10:09 [facility] Agent [employer] 06/22/23 10:17 [facility] 06/22/23 10:09 Wound Center Nurse 1 [...] Cleansing No -Anesthetic Used 5% Lidocaine Gel CHERYL - Nurse 2 - General Ulcer CM Notes Start: 06/22/23 10:08 Freq: Status: Active Protocol: Activity Type Activity Date Activity User E-sign Co-sign Detail Recorded Client Recorded Date Recorded By Document 06/22/23 10:29 Desktop 06/22/23 10:30 06/22/23 10:29 Wound Center Nurse 2 -Time [...] her in the future if needed. Note: [employer] speech recognition nutrition assistant software was used to create portions of this document. Sound-alike and misspelled words, as well as other nutrition assistant errors may be contained in the documentation. 06/22/23 1408 <Electronically signed by Mari Veliz DO> Cosigner Signature (if applicable): CC: ~ Signed [facility] Work Phone: 1(173) 199-216311-17-2023 Progress note Author [facility] June 08, 2023 3:20pm Note Date/Time June 08, 2023 3:15pm [facility] [address] [place] [address] Progress Note - Wound Care 06/08/23 1513 MR#: [id number] Acct: [id number] Name: ART BLUE Rep #:[id number] 3 : 1955 67 From: Mari Veliz [...] of February and discharged on Mar.24 from [facility] for pneumonia and pleural effusion which need [...] Recorded Date Recorded By Document 05/25/23 09:18 F Desktop 05/25/23 09:27 BMF Document 06/01/23 10:02 RB Desktop 06/01/23 10:03 RB Document 06/08/23 08:29 DL Desktop 06/08/23 08:35 DL 05/25/23 06/01/23 06/08/23 09:18 10:02 08:29 WC - Today's Visit Information Type of service Follow-up Visit Follow-up Visit Follow-up Visit (Physician/[employer] WARRANT OFFICER (Physician/[employer] WARRANT OFFICER (Physician/[employer] WARRANT OFFICER ) ) ) Arrival Mode Ambulatory Ambulatory [...] Recorded Date Recorded By Document 05/25/23 09:18 BMF Desktop 05/25/23 09:27 BMF Document 06/01/23 10:02 [...] Medium (34-66%) Large (67-100%) -Granulation Quality Red [place] -Slough/Fibrin No Yes -Necrosis Amt None Present [...] GM Edit Result 06/01/23 10:06 GM (1) [id number] 06/01/23 10:32 GM Document 06/08/23 09:42 GM [...] Free? Yes Yes Yes WC - Nurse 3 - General Ulcer D/C NN Start: 05/25/23 09:18 Freq: Status: Active Protocol: Activity Type Activity Date Activity User E-sign Co-sign Detail Recorded Client Recorded Date Recorded By Document 05/25/23 10:14 RB Desktop 05/25/23 10:15 RB Document 06/01/23 10:25 MT Desktop 06/01/23 10:26 MT Document 06/08/23 09:56 RB Desktop 06/08/23 09:58 RB 05/25/23 06/01/23 06/08/23 [...] symptoms worsen, or new symptoms arise. Note: [employer] speech recognition nutrition assistant software was used to create portions of this document. Sound-alike and misspelled words, as well as other nutrition assistant errors may be contained in the documentation. 06/08/23 1520 <Electronically signed by Mari Veliz DO> Cosigner Signature (if applicable): CC: ~ Signed [facility] Work Phone: 1(574) 891-270711-10-2023 Progress note Author Mari Veliz [facility] June 01, 2023 12:17pm Note Date/Time June 01, 2023 10:29am [facility] [address] [place] [address] Progress Note - Wound Care 06/01/23 1026 MR#: [id number] Acct: [id number] Name: ART BLUE Rep #:[id number] 3 : 1955 67 From: Mari Veliz [...] of February and discharged on Mar.24 from [facility] for pneumonia and pleural effusion which need [...] Start: 05/25/23 09:18 Freq: Status: Active Protocol: TONYAEXClaudio Activity Type Activity Date Activity User E-sign Co-sign Detail Recorded Client Recorded Date Recorded By Document 05/25/23 09:18 BMF Desktop 05/25/23 09:27 BMF Document 06/01/23 10:02 RB Desktop 06/01/23 10:03 RB 05/25/23 06/01/23 09:18 10:02 - Today's Visit Information Type of service Follow-up Visit Follow-up Visit (Physician/[employer] WARRANT OFFICER (Physician/[employer] WARRANT OFFICER ) ) Arrival Mode Ambulatory Ambulatory Transfer [...] Patient Pain Free? Yes Yes - Nurse 1 - General Ulcer Measurement Start: 05/25/23 09:18 Freq: Status: Active Protocol: Activity Type Activity Date Activity User E-sign Co-sign Detail Recorded Client Recorded Date Recorded By Document 05/25/23 09:18 [facility] Desktop 05/25/23 09:27 [facility] Document 06/01/23 10:02 RB Desktop 06/01/23 [...] Large (67-100%) Medium (34-66%) -Granulation Quality Red [place] -Slough/Fibrin No Yes -Necrosis Amt None Present [...] By Document 05/25/23 10:00 Desktop 05/25/23 10:02 GM Document 06/01/23 10:06 Desktop 06/01/23 10:13 05/25/23 06/01/23 10:00 10:06 Wound Center Nurse [...] Pain Free? Yes Yes WC - Nurse 3 - General Ulcer D/C [...] symptoms worsen, or new symptoms arise. Note: [employer] speech recognition nutrition assistant software was used to create portions of this document. Sound-alike and misspelled words, as well as other nutrition assistant errors may be contained in the documentation. 06/01/23 1217 <Electronically signed by Mari Veliz DO> Cosigner Signature (if applicable): CC: ~ Signed [facility] Work Phone: 1(107) 867-505111-03-2023 Progress note Author Mari Veliz [facility] May 25, 2023 2:25pm Note Date/Time May 25, 2023 2 :25pm [facility] [address] [place] [address] Progress Note - Wound Care 05/25/23 1420 MR#: [id number] Acct: [id number] Name: ART BLUE Rep #:[id number] 1 : 1955 67 From: Mari Veliz DO PCP: Deysi M Matthew, DO Status:REG R CR Location: History of Present Illness Date of Service: 05/25/23 Chief Complaint: right lateral chest wound History of Wound: Art is a 67 yo woman that presents to the wound center today for evaluation and treatment of a nonhealing wound of her right chest wallfrom a chest tube. She was hospitalized the end of February and discharged on Mar.24 from [facility] for pneumonia and pleural effusion which need [...] Recorded Date Recorded By Document 05/25/23 09:18 [facility] Desktop 05/25/23 09:27 [facility] 05/25/23 09:18 WC - Today's Visit Information Type of service Follow-up Visit (Physician/[employer] OFFICER ) Arrival Mode Ambulatory Transfer Assistance None [...] Is Patient Pain Free? Yes - Nurse 1 - General Ulcer Measurement Start: 05/25/23 09:18 Freq: Status: Active Protocol: Activity Type Activity Date Activity User E-sign Co-sign Detail Recorded Client Recorded Date Recorded By Document 05/25/23 09:18 [facility] Agent [employer] 05/25/23 09:27 [facility] 05/25/23 09:18 Wound Center Nurse 1 [...] symptoms worsen, or new symptoms arise. Note: [employer] speech recognition nutrition assistant software was used to create portions of this document. Sound-alike and misspelled words, as well as other nutrition assistant errors may be contained in the documentation. 05/25/23 1425 <Electronically signed by Mari Veliz DO> Cosigner Signature (if applicable): CC: ~ Signed [facility] Work Phone: 1([phone]) 568-541310-27-2023 Progress note Author [facility] May 18, 2023 1:56pm Note Date/Time May 18, 2023 1 :56pm [facility] [address] [place] [address] Progress Note - Wound Care 05/18/23 1353 MR#: [id number] Acct: [id number] Name: ART BLUE Rep #:[id number] 4 : 1955 67 From: Mari Veliz [...] of February and discharged on Mar.24 from [facility] for pneumonia and pleural effusion which need [...] 2.12 04/27/23 05/04/23 05/11/23 10:48 10:33 10:16 WC - Today's Visit Information Type of service Initial Visit Follow-up Visit Follow-up Visit (Physician/[employer] WARRANT OFFICER (Physician/[employer] WARRANT OFFICER ) ) Arrival Mode Ambulatory Ambulatory Ambulatory [...] Yes Yes Yes Communication Assessment Preferred language Burkinan Handyperson Required No Able to Read Yes Able [...] Any Declines Assistive Device With Patient No Culture/Mu-Ism/Offset Plate Preparation Supervisor Cultural/Mu-Ism Needs that may affect No Treatment Plan Would you allow our hospital inspector welded parts to No meet you for the purpose of spiritual/ emotional support? Offset Plate Preparation Supervisor to contact place of episcopalian No Teaching: Wound Center *Welcome to the Wound Center -Person Taught Patient -Teaching Method Discussion -Response to teaching Verbalize understanding 05/18/23 08:30 WC - Today's Visit Information Type of service Follow-up Visit (Physician/[employer] WARRANT OFFICER ) Arrival Mode Ambulatory Transfer Assistance Accompanied by self Patient Identification Verified (Name & Yes ) Patient Requires Transmission-Based Precautions Safety Precautions Fall Prevention Finger Stick Blood Sugar(mg/dl) (if indicated): Blood Sugar Height and Weight Height Weight Weight in Pounds Body Mass Index (BMI) 39.1 BMI Classification Obese [facility] - June Vital Signs Temperature (97.8 F-99.1 [...] Patient Pain Free? Yes Communication Assessment Preferred sanding machine operator Required Able to Read Able to Write [...] Ability to Perform Assistive Device With Patient Culture/Mu-Ism/Offset Plate Preparation Supervisor Cultural/Mu-Ism Needs that may affect Treatment Plan Would you allow our hospital inspector welded parts to meet you for the purpose of spiritual/ emotional support? Offset Plate Preparation Supervisor to contact place of episcopalian Teaching: Wound Center *Welcome to the Wound Center -Person Taught -Teaching Method -Response to teaching WC - Nurse 1 - General Ulcer [...] (34-66%) Medium (34-66%) Medium (34-66%) -Granulation Quality [place] Red [place] -Slough/Fibrin Yes Yes -Necrosis Amt Medium (34-66%) [...] Intact -Granulation Amt Large (67-100%) -Granulation Quality Pale,[place],Red -Slough/Fibrin -Necrosis Amt None Present (0 %) [...] Patient Pain Free? Yes WC - Nurse 3 - General Ulcer D/C NN Start: 04/27/23 10:45 Freq: Status: Active Protocol: Activity Type Activity Date Activity User E-sign Co-sign Detail Recorded Client Recorded Date Recorded By Document 04/27/23 12:27 RB [id number] 04/27/23 12:28 RB Document 05/04/23 11:01 GM [...] symptoms worsen, or new symptoms arise. Note: [employer] speech recognition nutrition assistant software was used to create portions of this document. Sound-alike and misspelled words, as well as other nutrition assistant errors may be contained in the documentation. 05/18/23 7047 <Electronically signed by Mari Veliz DO> Cosigner Signature (if applicable): CC: ~ Signed [facility] Work Phone: 1([phone]) 789-800510-20-2023 Progress note Author Mari Veliz [facility] May 11, 2023 11:07am Note Date/Time May 11, 2023 1 1:07am [facility] [address] [place] [address] Progress Note - Wound Care 05/11/23 1104 MR#: [id number] Acct: [id number] Name: ART BLUE Rep #:[id number] 4 : 1955 67 From: Mari Veliz [...] of February and discharged on Mar.24 from [facility] for pneumonia and pleural effusion which need [...] Start: 04/27/23 10:45 Freq: Status: Active Protocol: .LOWMARI Activity Type Activity Date Activity User E-sign [...] service Initial Visit Follow-up Visit Follow-up Visit (Physician/[employer] WARRANT OFFICER (Physician/[employer] WARRANT OFFICER ) ) Arrival Mode Ambulatory Ambulatory Ambulatory [...] Yes Yes Yes Communication Assessment Preferred language Burkinan Handyperson Required No Able to Read Yes Able [...] Any Declines Assistive Device With Patient No Culture/Mu-Ism/Offset Plate Preparation Supervisor Cultural/Mu-Ism Needs that may affect No Treatment Plan Would you allow our hospital inspector welded parts to No meet you for the purpose of spiritual/ emotional support? Offset Plate Preparation Supervisor to contact place of episcopalian No Teaching: Wound Center *Welcome to the [...] (34-66%) Medium (34-66%) Medium (34-66%) -Granulation Quality [place] Red [place] -Slough/Fibrin Yes Yes -Necrosis Amt Medium (34-66%) [...] 11:19 Document 05/04/23 10:50 Desktop 05/04/23 10:56 Document 05/11/23 10:33 Desktop 05/11/23 10:38 04/27/23 05/04/23 05/11/23 11:13 10:50 10:33 Wound [...] Date Recorded By Document 04/27/23 12:27 RB [id number] 04/27/23 12:28 RB Document 05/04/23 11:01 GM [...] symptoms worsen, or new symptoms arise. Note: [employer] speech recognition nutrition assistant software was used to create portions of this document. Sound-alike and misspelled words, as well as other nutrition assistant errors may be contained in the documentation. 05/11/23 1107 <Electronically signed by Mari Veliz DO> Cosigner Signature (if applicable): CC: ~ Signed [facility] Work Phone: [phone]) 644-573510-13-2023 Progress note Author [facility] May 04, 2023 12:52pm Note Date/Time May 04, 2023 1 2:52pm [facility] [address] [place] [address] Progress Note - Wound Care 05/04/23 1249 MR#: [id number] Acct: [id number] Name: ART BLUE Rep #:[id number] 4 : 1955 67 From: Mari Veliz [...] of February and discharged on Mar.24 from [facility] for pneumonia and pleural effusion which need surgical debridement. The wound has not healed since the chest tube was removed Sept. 2. She has been applying Bacitracin. She states [...] Post-Debridement Measurements and Additional Note: Post-Debridement Measurements/Treatment CHERYL - Nurse 1 - General Ulcer Assessment [...] June => 2.12 04/27/23 05/04/23 10:48 10:33 WC - Today's Visit Information Type of service Initial Visit Follow-up Visit (Physician/[employer] OFFICER ) Arrival Mode Ambulatory Ambulatory Transfer Assistance [...] Free? Yes Yes Communication Assessment Preferred language Burkinan Handyperson Required No Able to Read Yes Able [...] Any Declines Assistive Device With Patient No Culture/Mu-Ism/Offset Plate Preparation Supervisor Cultural/Mu-Ism Needs that may affect No Treatment Plan Would you allow our hospital inspector welded parts to No meet you for the purpose of spiritual/ emotional support? Offset Plate Preparation Supervisor to contact place of episcopalian No Teaching: Wound Center *Welcome to the [...] Amt Medium (34-66%) Medium (34-66%) -Granulation Quality [place] Red -Slough/Fibrin Yes -Necrosis Amt Medium (34-66%) Small (1-33%) -Necrotic Tissue Type Adherent Slough Adherent Slough -Structure Exposed N/A -Texture (Sybil-wound Skin Appearance) Assessed Assessed, Localized Edema -Moisture (Sybil-wound Skin Appearance) Assessed Assessed -Color (Sybil-wound Skin Appearance) Assessed Assessed -Temperature (Sybil-wound Skin No Abnormality No Abnormality Appearance) (Pt Warm) (Pt Warm) -Tenderness on Palpation (Sbyil-wound No Skin Appearance) -Ulcer Cleansing Wound Cleanser Rinsed/ Irrigated with Saline -Foul Odor after Cleansing No No -Anesthetic Used 5% Lidocaine 5% Lidocaine Gel Gel WC - Nurse 2 - General Ulcer CM Notes Start: 04/27/23 10:45 Freq: Status: Active Protocol: Activity Type Activity Date Activity User E-sign Co-sign Detail Recorded Client Recorded Date Recorded By Document 04/27/23 11:13 Agent [employer] 04/27/23 11:19 Document 05/04/23 10:50 Desktop 05/04/23 [...] Pain Free? Yes Yes WC - Nurse 3 - General Ulcer D/C NN Start: 04/27/23 10:45 Freq: Status: Active Protocol: Activity Type Activity Date Activity User E-sign Co-sign Detail Recorded Client Recorded Date Recorded By Document 04/27/23 12:27 RB [id number] 04/27/23 12:28 RB Document 05/04/23 11:01 Desktop [...] symptoms worsen, or new symptoms arise. Note: [employer] speech recognition nutrition assistant software was used to create portions of this document. Sound-alike and misspelled words, as well as other nutrition assistant errors may be contained in the documentation. 05/04/23 1252 <Electronically signed by Mari Veliz DO> Cosigner Signature (if applicable): CC: ~ Signed [facility] Work Phone: [phone]) 641-475510-12-2023 History of Present illness Narrative* Sahara Hoyt [...] 03, 2023 10:18 AM documented in this encounterOhiohealth10-06-2023 History and physical note Author Mari Veliz [facility] April 27, 2023 3:35pm Note Date/Time April 27, 2023 3: 35pm [facility] [address] [place] [id number] H&P Exam - Wound Care 04/27/23 4529 MR#: [id number] Acct: [id number] Name: ART BLUE Rep #:[id number] 2 : 1955 67 From: Mari Veliz [...] of February and discharged on Mar.24 from [facility] for pneumonia and pleural effusion which need surgical debridement. The wound has not healed since the chest tube was removed Mar.24. She has been applying Bacitracin. She states there is light drainage, no erythema or odor or fever or chills. [facility] Medical History Anemia Anxiety and depression [...] Last Taken 01/22/23] warfarin 5 mg tablet (Benjamintoven) 7.5 mg PO DAILY 01/23/23 [History Last [...] BSA - June => 2.12 04/27/23 10:48 - Today's Visit Information Type of service [...] Pain Free? Yes Communication Assessment Preferred language Burkinan Handyperson Required No Able to Read Yes Able [...] Any Declines Assistive Device With Patient No Culture/Mu-Ism/Offset Plate Preparation Supervisor Cultural/Mu-Ism Needs that may affect No Treatment Plan Would you allow our hospital inspector welded parts to No meet you for the purpose of spiritual/ emotional support? Offset Plate Preparation Supervisor to contact place of episcopalian No Teaching: Wound Center *Welcome to the [...] Attached -Granulation Amt Medium (34-66%) -Granulation Quality [place] -Slough/Fibrin Yes -Necrosis Amt Medium (34-66%) -Necrotic [...] Date Recorded By Document 04/27/23 12:27 RB [id number] 04/27/23 12:28 RB 04/27/23 12:27 Wound Care [...] symptoms worsen, or new symptoms arise. Note: [employer] speech recognition nutrition assistant software was used to create portions of this document. Sound-alike and misspelled words, as well as other nutrition assistant errors may be contained in the documentation. 04/27/23 1535 <Electronically signed by Mari Veliz DO> Cosigner Signature (if applicable): CC: ~ Signed [facility] Work Phone: 1(181) 509-116109-15-2023 History of Present illness Narrative* Chanel Martinez APRN.[employer] WARRANT OFFICER - 04/06/2023 10:06 AM EDT Images from the original note were not included. [facility] - OUTPATIENT THORACIC SURGERY CLINIC NOTE PT NAME: Art Blue [facility] NO: [id number] THORACIC SURGEON: Jeanne Perez M.D. DATE OF SERVICE: April 06, 2023 PRINCIPAL DX: Right empyema (streptococcus anginosus) SURGICAL HX: 03/15/2023: Right VATS converted to right thoracotomy decortication and washout Surgical Pathology: FINAL DIAGNOSIS A - PLEURAL FLUID RIGHT Negative for malignant cells. Marked acute inflammation. REASON FOR VISIT: First post-operative visit HPI: Art Blue is a 67 year old female [...] pain management with the use of occasional Carnegie. Does not need a refill at this [...] inflammation. She will get a CXR in [place] in 4 weeks and will have a phone visit the next day. IMPRESSION: 67 year old female s/p Right VATS converted to right thoracotomy decortication and washout 03/15/23 for right empyema PLAN: - CXR in [place] in 4 weeks and will have a phone visit the next day. - Complete Augmentin as prescribed Chanel Martinez APRN.ERAN documented in this encounterOhiohealth09-15-2023 History of Present illness Narrative* Ericka Pina [...] 06, 2023 9:18 AM documented in this encounterOhiohealth08-01-2023 Miscellaneous Notes* Telephone Encounter - Willard Pearl - 02/20/2023 3:06 PM EDT Reason for call: Ms Rivas called and she would like to schedule an appointment with Contact Name (If not the pt): Evelyn (Pulm Office) Home and cell number: [phone] Diagnosis: Hypoxemia; pneumonia; R. Pleural Effusion Willard Boudreaux documented in this encounterOhiohealth07-12-2023 Discharge summary Author Isabella [facility] [facility] January 31, 2023 2:00pm Note Date/Time January 31, 2023 2:00 pm [facility] Physical Therapy Health[address] [place] [address] / REHABILITATION SERVICES DISCHARGE SUMMARY MR#: [id number] Acct: [id number] Name: ART BLUE Rep #: [id number] : 1955 67 From: Isabella Garcia PT, Cert. MDT Referring Dr.: Dr. Jose Ramon Terry, DO Status: REG RCR Insurance: MEDICARE PART A B [facility] Patient Information Patient Information: ART BLUE was [...] appropriate by the physician. Thank you! Isabella Garcia PT, Cert MDT Balance/Gait/Functional tests Balance/Special Test Scores Lower Extremity Functional Score: 34 TUG Test Time Seconds: 23.70 Tug Test: 20-30sec.=variable mobility 30 Second Chair Rise Test Seconds: 5 <Electronically signed by Isabella Garcia PT, Cert. MDT> 01/31/23 1400 CC: Dr. Jose Ramon Terry DO; Deysi Castro DO ~ RYAN Signed [facility] Work Phone: 1(210) 810-780207-06-2023 Discharge summary Author Neymar Masters [facility] January 25, 2023 1:18pm Note Date/Time January 25, 2023 1:06p [facility] Medical Records Department [address] [place] [address] Instructions for Home/Discharge Instructions 01/25/23 1303 MR#: [id number] Acct: [id number] Name: ART BLUE Rep #:[id number] : 1955 67 From: Neymar Masters [...] Vizcarra MD; Deysi Castro DO ~ Signed [facility] Work Phone: 1(957) 430-217207-05-2023 Progress note Author Kenney Vizcarra [facility] January 24, 2023 9:07am Note Date/Time January 24, 2023 9:07a [facility] Medical Records Department [address] [place] [address] Progress Note - Hospitalist 01/24/23905 MR#: [id number] Acct: [id number] Name: ART BLUE Rep #:[id number] : 1955 67 From: Kenney castillo MD PCP: Deysi Castro DO Status:ADM I N Location: [place] [address] Subjective Subjective Doing well, still having chest [...] 71.1 H, Lymph % (Auto) 15.5 L, [place] % (Auto) 8.9, Eos % (Auto) 3.3, [...] Therapeutic INR Charges/Coding Visit Charges Inpatient E&M: 79638 Subs Hosp L2 01/24/23 0907 <Electronically signed by Kenney Vizcarra MD> Cosigner Signature (if applicable): CC: ~ Signed [facility] Work Phone: 1([phone]) 748-179107-04-2023 History and physical note Author Kenney Vizcarra [facility] January 23, 2023 12:08pm Note Date/Time January 23, 2023 11:02 am [facility] Medical Records Department [address] [place] [address] H&P Exam - Hospitalist 01/23/23 1058 MR#: [id number] Acct: [id number] Name: ART BLUE Rep #:[id number] : 1955 67 From: Kenney castillo MD PCP: Deysi Castro, DO Status:ADM I NO Location: [facility] HK506-1 HPI - General General Date of Admission: [...] a right pleural effusion with possible loculation. [facility] Medical History Anxiety and depression Diabetes [...] 10 mg tablet 10 mg PO SUTUTHFRSA 11/08/21 [History Last Taken 01/21/23] baclofen 10 mg [...] Last Taken 01/22/23] warfarin 5 mg tablet () 7.5 mg PO MOWE 01/23/23 [History Last [...] 77.1 H, Lymph % (Auto) 11.3 L, [place] % (Auto) 8.5, Eos % (Auto) 1.9, [...] with colleagues Charges/Coding Visit Charges Inpatient E&M: 22111 Init Hosp L3 01/23/23 1208 <Electronically signed by Kenney Vizcarra MD> Cosigner Signature (if applicable): CC: Dr. Kenney Vizcarra MD; Deysi Castro DO~ Signed [facility] Work Phone: [phone]) 137-387407-04-2023 Discharge summary Author Max Lara [facility] January 23, 2023 8:12am Note Date/Time January 23, 2023 7:39a [facility] Medical Records Department [address] [place] [address] Emergency Department Summary 01/23/23 MR#: [id number] Acct: [id number] Name: ART BLUE Rep #:[id number] : 1955 67 From: Max Lara [...] lung disorder or need for supplemental oxygen [facility] Medical History Anxiety and depression Diabetes Gastric [...] 77.1 H Lymph % (Auto) 11.3 L [place] % (Auto) 8.5 Eos % (Auto) 1.9 [...] Primary Care Provider: Deysi Castro Referrals: Deysi Castro DO [Primary Care Provider] - Disposition Disposition: Acute Care Hospital [facility] What to do if you have Problems For any increased pain, shortness of breath, bleeding, nausea or vomiting, chestpain, or any unexpected problems, contact your Primary Care Provider. Call [facility] ([phone]) or report to the closest Emergency Room. Call 911 if necessary. 01/23/23 0812 <Electronically signed by Max Lara DO> Cosigner Signature (if applicable): CC: Deysi Castro DO ~ Signed [facility] Work Phone: 1(974) 882-572207-01-2023 History of Present illness Narrative* Sean Villalba APRN.[employer] OFFICER - 01/20/2023 11:15 AM EDT Subjective HPI [...] Coumadin due to recurrent clots.Does have a [place] filter. Denies any fever body aches chills [...] tunnel decomp Left PAST SURGICAL HISTORY OF vulcan PAST SURGICAL HISTORY OF 2014 panelectomy REPAIR INCISIONAL HERNIA 02/12/2014 with mesh [...] care. Sean Villalba APRN.ERAN documented in this encounter[facility]health12-07-2022 NoteHNO ID: [id number] Author: Carmela Skinner RN Service: Nursing Author Type: Registered Nurse Type: Nursing Progress Note Filed: 06/28/2022 12:58 PM Note Text: Other: 1250-xray [id number] History and physical note* Asad Guerin MD - 06/28/2022 1:00 PM EST Images from the original note were not included. HISTORY AND PHYSICAL Art Mirza 1955 REFERRING PHYSICIAN: Autumn Almanzar, * CHIEF [...] had a colonoscopy with Dr. Guerin in 2017 at [facility] which was incomplete. Per operative report, [...] entered by the nurse and reviewed by mt Nursing Notes: Em Park RN 04/28/2022 11:01 [...] patient was offered a surgery/procedure at a [facility] facility. I have counseled the patient regarding [...] 2022 TIME: 10:49 AM documented in this encounterOhiohealth12-07-2022 Nurse Note* Carmela Skinner RN - 06/28/2022 12:58 PM EST Other: 1250-xray took Pt for barium enema documented in this encounterOhiohealth10-19-2022 History of Present illness Narrative* Manuela Montana APRN.ERAN - 05/10/2022 10:19 AM EDT Tank Calibrator offered: Patient declines. Art is a 66 year old who presents for an annual gynecologic exam without complaints. Enjoying penitentiary with . Postmenopausal: Yes HRT use: No. Last Pap: 01/11/2018 normal HPV: 01/09/2018 negative History of abnormal pap: Yes - cryo ' Last mammogram: 2021 normal History of abnormal mammogram: No Sexually active: No Vaginal dryness: No OB History T0 L1 SAB0 IAB0 Ectopic0 Multiple0 Live Births0 Coutierier History LMP: Postmenopausal Age at Menarche: Age at First : Age at Menopause: Coutierier History Comments: Sexual Activity: Not Currently; Male; [...] tunnel decomp Left PAST SURGICAL HISTORY OF vulcan PAST SURGICAL HISTORY OF 2014 panelectomy REPAIR INCISIONAL HERNIA 02/12/2014 with mesh [...] external genitalia normal, normal Bartholin's glands, urethra, Belding's glands, no vulvar lesions, no cervical lesions, physiologic discharge present, normal appearing perineal body and perianal region BIMANUAL: non-tender and difficult exam due to body habitus RECTOVAGINAL: deferred. NEURO: alert and oriented x3,exam grossly non-focal EXTREMITIES: normal ASSESSMENT/PLAN: 1) Health maintenance: Pap done Mammogram up to date - done at [facility] Nutrition, exercise and routine health maintenance exams reviewed. Calcium/Vitamin D supplementation information provided. Colon cancer screening: upcoming BMD: up to date, normal [facility] 2) Follow up one year or sooner as needed Manuela Montana APRN.[employer] OFFICER documented in this encounterOhiohealth10-07-2022 History of Present illness Narrative* Allyson Whitmore [...] colonoscopy with Dr. Guerin in 2016 at [facility] which was incomplete. Per operative report, [...] entered by the nurse and reviewed by mt Nursing Notes: Em Park RN 04/28/2022 11:01 [...] patient was offered a surgery/procedure at a [facility] facility. I have counseled the patient regarding [...] mail.;l Allyson Whitmore PA-C documented in this encounterOhiohealth10-07-2022 Nurse Note* Em Park RN - 04/28/2022 [...] 2016 Em Park RN documented in this encounterOhiohealth04-16-2018 History of Past illness Narrative* Problem Noted [...] of this encounter (statuses as of 04/28/2022) [facility] of Past illness Narrative* Problem Noted [...] of this encounter (statuses as of 05/10/2022) [facility] of Past illness Narrative* Problem Noted [...] of this encounter (statuses as of 06/29/2022) [facility] of Past illness Narrative* Problem Noted [...] of this encounter (statuses as of 01/20/2023) [facility] of Past illness Narrative* Problem Noted [...] of this encounter (statuses as of 02/21/2023) [facility] of Past illness Narrative* Problem Noted [...] of this encounter (statuses as of 03/30/2023) [facility] of [facility] illness Narrative* Problem Noted [...] of this encounter (statuses as of 04/06/2023) [facility] of Past illness Narrative* Problem Noted [...] of this encounter (statuses as of 04/07/2023) [facility] of [facility] illness Narrative* Problem Noted [...] of this encounter (statuses as of 04/17/2023) [facility] History of Past illness Narrative* Problem Noted [...] of this encounter (statuses as of 05/27/2023) [facility] January 23, 2023 8:12am Note Date/Time January 23, 2023 7:39a [facility] Medical Records Department [address] [place] [address] Emergency Department Summary 01/23/23 MR#: [id number] Acct: [id number] Name: MIRZAART Rep #:[id number] : 1955 67 From: Max Lara [...] lung disorder or need for supplemental oxygen [facility] Medical History Anxiety and depression Diabetes Gastric [...] 77.1 H Lymph % (Auto) 11.3 L [place] % (Auto) 8.5 Eos % (Auto) 1.9 [...] Primary Care Provider: Deysi Castro Referrals: Deysi Castro DO [Primary Care Provider] - Disposition Disposition: Acute Care Hospital [facility] What to do if you have Problems For any increased pain, shortness of breath, bleeding, nausea or vomiting, chestpain, or any unexpected problems, contact your Primary Care Provider. Call [facility] ([phone]) or report to the closest Emergency Room. Call 911 if necessary. 01/23/23811 <Electronically signed by Max Lara DO> Cosigner Signature (if applicable): CC: Deysi Castro DO ~ Signed [facility] Work Phone: evaluaficg noteNo assessment information available [facility] Work Phone: Evaluation note* Diagnosis Onset Date Resolution Status Iron deficiency acute Peripheral vestibulopathy ac tribal Restless legs syndrome acute Cerebral convexity meningioma chronic Cerebrovascular small vessel disease chronic Polyneuropathy chronic [facility] Work Phone: Evaluoabyh note* Diagnosis History of colonic polyps- Primary Personal history of colonic polyps Encounter for screening for malignant neoplasm of colon Special screening for malignant neoplasms, colon documented in this encounter [facility] note* Diagnosis Encounter for routine gynecologic examination in Medicare patient- Primary Encounter for Papanicolaou smear for cervical cancer screening documented in this encounter [facility] note* Diagnosis Encounter for screening for malignant neoplasm of colon- Primary Special screening for malignant neoplasms, colon History of colonic polyps Personal history of colonic polyps Obesity, Class II, BMI 35-39.9 Obesity, unspecified documented in this encounter [facility] note* Diagnosis Onset Date Resolution Status Mild cognitive impairment ac tribal Cerebral convexity meningioma chronic Cerebrovascular small vessel disease chronic Polyneuropathy chronic Restless legs syndrome chron ic [facility] Work Phone: Evaluation note* Diagnosis Onset Date Resolution Status Fatigue acute Cerebral convexity meningioma chronic Cerebrovascular small vessel disease chronic Polyneuropathy chronic Restless legs syndrome chron ic History of iron deficiency r esolved Fatigue acute Obesity acute Osteoarthritis of right hip noneactive [facility] Work Phone: Evaluation note* Diagnosis Onset Date Resolution Status Cerebral convexity meningioma chronic Cerebrovascular small vessel disease chronic Fatigue chronic Polyneuropathy chronic Restless legs syndrome chron ic History of iron deficiency r esolved Fatigue chronic Obesity acute Osteoarthritis of right hip noneactive Fatigue chronic [facility] Work Phone: Evaluation note* Diagnosis Pleuritic pain- Primary Painful respiration [facility] Diagnosis Onset Date Resolution Status Cerebral convexity meningioma chronic Cerebrovascular small vessel disease chronic Fatigue chronic Polyneuropathy chronic Restless legs syndrome chron ic History of iron deficiency r esolved Fatigue chronic Obesity acute Osteoarthritis of right hip noneactive Fatigue chronic Hypoxia acute Pleural effusion acute Pneumonia acute [facility] Work Phone: Evaluation note* Diagnosis Onset Date Resolution Status Cerebral convexity meningioma chronic Cerebrovascular small vessel disease chronic Fatigue chronic Polyneuropathy chronic Restless legs syndrome chron ic History of iron deficiency r esolved Fatigue chronic Obesity acute Osteoarthritis of right hip noneactive Fatigue chronic Pleural effusion resolved [facility] Work Phone: Evaluation note* Diagnosis Onset Date Resolution Status Polyneuropathy chronic Restless legs syndrome chron ic History of iron deficiency r esolved Obesity acute Osteoarthritis of right hip noneactive Pleural effusion resolved [facility] Work Phone: Evaluation note* Diagnosis Onset Date Resolution Status Fatigue chronic Obesity acute Osteoarthritis of right hip noneactive Fatigue chronic Pleural effusion resolved Monoclonal gammopathy acute Fatigue chronic Polyneuropathy chronic Restless legs syndrome chron ic History of iron deficiency r esolved [facility] Work Phone: Evaluation note* Diagnosis Onset Date Resolution Status Fatigue chronic Obesity acute Osteoarthritis of right hip noneactive Fatigue chronic Pleural effusion resolved Monoclonal gammopathy acute Fatigue chronic Polyneuropathy chronic Restless legs syndrome chron ic History of iron deficiency r esolved Lumbar radiculopathy, right acute Myalgia acute Dyspnea on exertion acute [facility] Work Phone: Evaluation note* Diagnosis Surgery follow-up- Primary Follow-up examination, following unspecified surgery [facility] Diagnosis 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)- Primary Empyema without mention of fistula [facility]* Diagnosis Surgery follow-up Follow-up examination, following unspecified surgery [facility]* Diagnosis Onset Date Resolution Status Obesity [...] serum immunoglobulin free light chain level chronic [facility] Work Phone: Evaluation note* Diagnosis Onset [...] acute COPD (chronic obstructive pulmonary disease) chronic [facility] Work Phone: Evaluation note* Diagnosis 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) Empyema without mention of fistula [facility]* Diagnosis Onset Date Resolution Status Monoclonal [...] exposed acute COPD (chronic obstructive pulmonary disease) [facility] Work Phone: Evaluation note* Diagnosis Onset [...] exposed acute COPD (chronic obstructive pulmonary disease) [facility] Work Phone: Evaluation note* Diagnosis Onset [...] obstructive pulmonary disease) chronic Peripheral vestibulopathy ac tribal Fatigue chronic Polyneuropathy chronic Restless legs syndrome chron ic History of iron deficiency r esolved [facility] Work Phone: Evaluation note* Diagnosis Onset [...] obstructive pulmonary disease) chronic Peripheral vestibulopathy ac tribal Fatigue chronic Polyneuropathy chronic Restless legs syndrome chron ic History of iron deficiency r esolved Fatigue chronic Fatigue chronic [facility] Work Phone: Evaluation note* Diagnosis Onset Date Resolution Status Peripheral vestibulopathy ac tribal Fatigue chronic Polyneuropathy chronic Restless legs syndrome chron ic History of iron deficiency r esolved Fatigue chronic Fatigue chronic Hematuria acute Bilateral adrenal adenomas c hronic Elevated serum immunoglobulin free light chain level chronic Fatigue chronic Dysuria acute [facility] Work Phone: Evaluation note* Diagnosis Onset Date Resolution Status Fatigue chronic Fatigue chronic Hematuria acute Bilateral adrenal adenomas c hronic Elevated serum immunoglobulin free light chain level chronic Fatigue chronic Dysuria acute Peripheral vestibulopathy ac tribal Fatigue chronic Polyneuropathy chronic Restless legs syndrome chron ic History of iron deficiency r esolved Lumbar radiculopathy acute Other intervertebral disc degeneration, lumbar region acute [facility] Work Phone: Evaluation note* Diagnosis Onset Date Resolution Status Fatigue chronic Fatigue chronic Hematuria acute Bilateral adrenal adenomas c hronic Elevated serum immunoglobulin free light chain level chronic Fatigue chronic Dysuria acute Peripheral vestibulopathy ac tribal Fatigue chronic Polyneuropathy chronic Restless legs syndrome chron ic History of iron deficiency r esolved Lumbar radiculopathy acute Other intervertebral disc degeneration, lumbar region acute Lumbar radiculopathy acute Other intervertebral disc degeneration, lumbar region acute Spinal stenosis of lumbar re gion with neurogenic claudication acute [facility] Work Phone: Evaluation note* Diagnosis Onset [...] acute COPD (chronic obstructive pulmonary disease) chronic [facility] Work Phone: Evaluation note* Diagnosis Acute left ankle pain- Primary Acute left ankle pain [facility]* Diagnosis Acute left ankle pain documented in this encounter [facility] note* Diagnosis Encounter for gynecologic examination for high-risk patient covered by Medicare- Primary Routine gynecological examination 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) Encounter for Papanicolaou smear for cervical cancer screening Encounter for screening mammogram for breast cancer documented in this encounter [facility] Discharge instructionsAmbulatory Orders* Physical Therapy Referral Location: None Selected * Hematology & Oncology Location: None Selected [facility] Work Phone: Progress note Author Neymar Masters [facility] January 25, 2023 4:33pm Note Date/Time January 25, 2023 4:33p m [facility] Medical Records Department [address] [place] [address] Progress Note - Hospitalist 01/25/23 163 MR#: [id number] Acct: [id number] Name: ART BLUE Rep #:[id number] : 1955 67 From: Neymar Masters DO PCP: Deysi Castro DO Status:ADM I N Location: [place] [address] Hospitalist Note Patient was ambulated on room [...] Cosigner Signature (if applicable): CC: ~ Signed [facility] Work Phone: Reason for referral (narrative)* Outpatient Procedure (Routine) - Closed Specialty Diagnoses / Procedures Referred By Tato t Referred To Contact [facility] Diagnoses History of colonic polyps Procedures COLONOSCOPY SCREENING COLONOSCOPY FLX DX W/COLLJ SPEC WHEN PFRMD Allyson Whitmore PA-C [address] [place] [address] [facility] [place] [address] Referral ID Status Reason Start Date Expiration Date V isits Requested Visits Authorized [id number] Closed Auto-Generated Referral Financial Clearance Not Required 04/28/2022 04/28/2023 1 1 [facility] for referral (narrative)No reason for referral information availableWMercy Health [facility] Work Phone: Reason for visit Narrative* Outpatient Procedure (Routine) - Closed Specialty Diagnoses / Procedures Referred By Tato sierra Referred To Contact [facility] Diagnoses History of colonic polyps Procedures COLONOSCOPY SCREENING COLONOSCOPY FLX DX W/COLLJ SPEC WHEN PFRMD Allyson Whitmore PA-C [address] [place] [address] [facility] [address] [place] [address] Referral ID Status Reason Start Date Expiration Date V isits Requested Visits Authorized [id number] Closed Auto-Generated Referral Financial Clearance Not Required 04/28/2022 04/28/2023 1 1 [facility] for visit Narrative* Diagnostic Procedure Only (Urgent) - Closed Specialty Diagnoses / Procedures Referred By Tato sierra Referred To Contact [facility] Diagnoses Acute left ankle pain Procedures XR ANKLE GENERAL 3V AP/LAT/OBL LEFT RADEX ANKLE COMPLETE MINIMUM 3 VIEWS [place]oomaw, Leonardo, INSTRUMENT REPAIR SPECIALIST.[employer] WARRANT OFFICER [address] [place] [address] Phone: tel: fax: XR IMAGING [facility] Referral ID Status Reason Start Date Expiration Date V isits Requested Visits Authorized [id number] Closed Auto-Generate d Referral 12/27/2024 01/26/2026 1 1 [facility] Summary Purpose Family History No Family History Records Found Relationship Condition Age at Onset Recorded Date/T cristina mother Cardiac disease Unknown Hypertension Unknown father Cardiac disease Unknown Cerebrovascular accident (CVA) Unknown brother Malignant neoplasm Unknown Advance Directives No Advanced Directives Records Found Advance Directive Response Recorded Date/ Time Advance Directives No March 10:55am Living Will Yes April 05, 2021 10:55am Power of Kitchen Bath Designer Yes March 10:55am Advance Directive Response Recorded Date/ Time Advance Directives No March 9:55am Living Will Yes April 05, 2021 9:55am Power of Kitchen Bath Designer Yes March 9:55am Advance Directive Response Recorded Date/ Time Name of Medical Power of Kitchen Bath Designer January 20, 2023 11:55am Advance Directives No March 10:55am Living Will Yes January 20, 2023 1 1:55am Power of Kitchen Bath Designer Yes January 20, 2023 11:55am Advance Directive Response Recorded Date/ Time Name of Medical Power of Kitchen Bath Designer January 20, 2023 11:55am Advance Directives No March 10:55am Living Will No January 23, 2023 3 :03am Power of Kitchen Bath Designer No January 23, 2023 3:03am Advance Directive Response Recorded Date/ Time Name of Medical Power of Kitchen Bath Designer January 20, 2023 11:55am Advance Directives No March 10:55am Living Will No January 23, 2023 9 :35am Power of Kitchen Bath Designer No January 23, 2023 9:35am Advance Directive Response Recorded Date/ Time Name of Medical Power of Kitchen Bath Designer January 20, 2023 11:55am Advance Directives No March 10:55am Living Will Yes March 13 1:48pm Power of Kitchen Bath Designer Yes March 13, 2 023 1:48pm Latest Code Status on File Code Status Date Activated Date Inactivated Comments Full Code 03/14/2023 6:28 AM 03/24/2023 7:10 PM Question Answer Comments Full Code Order Discussed With: Patient Advance Directive Response Recorded Date/ Time Name of Medical Power of Kitchen Bath Designer January 20, 2023 11:55am Name of Medical Power of Kitchen Bath Designer ON FILE March 13, 2023 1:48pm Advance Directives No March 10:55am Living Will Yes March 13 1:48pm Power of Kitchen Bath Designer Yes March 13, 2 023 1:48pm Advance Directive Response Recorded Date/ Time Name of Medical Power of Kitchen Bath Designer ON FILE March 13, 2023 1:48pm Advance Directives No March 10:55am Living Will Yes March 13 1:48pm Power of Kitchen Bath Designer Yes March 13 023 1:48pm Advance Directive Response Recorded Date/ Time Name of Medical Power of Kitchen Bath Designer ON FILE March 13, 2023 12:48pm Advance Directives No March 9:55am Living Will Yes March 13 12:48pm Power of Kitchen Bath Designer Yes March 13 023 12:48pm Advance Directive Response Recorded Date/ Time Advance Directives No March 9:55am Living Will Yes March 13 12:48pm Power of Kitchen Bath Designer Yes March 13 12:48pm Advance Directive Response Recorded Date/ Time Advance Directives No March 10:55am Living Will Yes March 13 1:48pm Power of Kitchen Bath Designer Yes March 13 023 1:48pm Advance Directive Response Recorded Date/ Time Living Will Yes March 13 1:48pm Power of Kitchen Bath Designer Yes March 13 1:48pm Advance Directives No March 10:55am Advance Directive Response Recorded Date/ Time Living Will Yes March 13 1:48pm Do you have a Healthcare Power of Kitchen Bath Designer? Yes March 13, 2023 1:48pm Advance Directives No March 10:55am Date Activated Date Inactivated Comments 03/14/2023 6:28 AM 03/24/2023 7:10 PM Question Answer Comments Full Code Order Discussed With: Patient Date Activated Date Inactivated Comments 03/14/2023 6:28 AM 03/24/2023 7:10 PM Question Answer Comments Full Code Order Discussed With: Patient Advance Directive Response Recorded Date/ Time Living Will Yes March 13 1:48pm Do you have a Healthcare Power of Kitchen Bath Designer? Yes March 13, 2023 1:48pm Do you have a Healthcare Power of Kitchen Bath Designer? Yes January 12, 2025 1:43pm Advance Directives No March 10:55am Advance Directive Response Recorded Date/ Time Do you have a Healthcare Power of Kitchen Bath Designer? Yes January 12, 2025 1:43pm Advance Directives No March 10:55am Chief Complaint and Reason for Visit Chief [...] for Visit Admit Date Peripheral vestibulopathy July 31, 2 025 1:29pm Fatigue July 31, 2024 1: 29pm Restless legs syndrome July 31, 2024 1:29pm Fatigue September 02, 2024 10:44am Fatigue October 02, 2024 11: 25am Hematuria October 06, 2024 10: 58am Bilateral adrenal adenomas October 06, 2 025 10:58am Elevated serum immunoglobulin free light chain level October 06, 2024 10:58am Reason for Visit Admit Date Peripheral vestibulopathy July 31, 2 025 1:29pm Fatigue July 31, 2024 1: [...] 11: 25am Bilateral adrenal adenomas October 06, 025 10:58am Elevated serum immunoglobulin free light [...] 11: 25am Bilateral adrenal adenomas October 06 10:58am Elevated [...] 2024 9:59am Polyneuropathy November 21, 2024 9:59am Chief Complaint Admit Date 6 MONTH, LABS PRIOR, REVIEW CT September [...] B12 inject December 08, 2024 11:32 am PAIN- COPY PCP/ ADD EORDERS LAB AND XRAY January 07, 2025 2:18pm R HIP RX HERE January 08, 2025 10:3 0am LEFT FLANK PAIN January 12, 2025 12:3 3pm Reason for Visit Admit Date Fatigue October 02, 2024 11: 25am Bilateral [...] 2024 9:59am Polyneuropathy November 21, 2024 9:59am Fatigue December 08, 2024 11:32 am Chief Complaint Admit Date 6 MONTH, LABS PRIOR, REVIEW CT September [...] B12 inject December 08, 2024 11:32 am PAIN- COPY PCP/ ADD EORDERS LAB AND XRAY January 07, 2025 2:18pm LEFT FLANK PAIN January 12, 2025 12:3 3pm R HIP RX HERE January 13, 2025 10:3 0am Chief Complaint Admit Date B12 inject October 02, 2024 11: 25am 1YR LABS PRIOR REVIEW CT October 06 10:58am B12 inject November 06, 2024 11: 28am LUMBAR SPINE November 07, 2024 1:4 7pm Room 3 November 07, 2024 1:5 9pm RIGHT HIP November 21, 2024 9:59am RM 2 November 21, 2024 10:21a m B12 inject December 08, 2024 11:32 am PAIN- COPY PCP/ ADD EORDERS LAB AND XRAY January 07, 2025 2:18pm LEFT FLANK PAIN January 12, 2025 12:3 3pm R HIP RX HERE January 13, 2025 10:3 0am 6 M FU January 29, 2025 10:4 9am Reason for Visit Admit Date Fatigue October 02, 2024 11: 25am Bilateral [...] 2024 9:59am Polyneuropathy November 21, 2024 9:59am Fatigue December 08, 2024 11:32 am Peripheral vestibulopathy January 29 10:49am Fatigue January 29, 2025 10:4 9am Restless legs syndrome January 29, 2025 1 0:49am Chief Complaint Admit Date B12 inject November 06, 2024 11: 28am LUMBAR SPINE November 07, 2024 1:4 7pm Room 3 November 07, 2024 1:5 9pm RIGHT HIP November 21, 2024 9:59am RM 2 November 21, 2024 10:21a m B12 inject December 08, 2024 11:32 am PAIN- COPY PCP/ ADD EORDERS LAB AND XRAY January 07, 2025 2:18pm LEFT FLANK PAIN January 12, 2025 12:3 3pm R HIP RX HERE January 13, 2025 10:3 0am 6 M FU January 29, 2025 10:4 9am RIGHT HIP February 25, 2025 9:4 4am Reason for Visit Admit Date Fatigue November 06, 2024 11: 28am Lumbar [...] 2024 9:59am Polyneuropathy November 21, 2024 9:59am Fatigue December 08, 2024 11:32 am Fibromyalgia January 29, 2025 10:4 9am Peripheral vestibulopathy January 29 10:49am Fatigue January 29, 2025 10:4 9am Restless legs syndrome January 29, 2025 1 0:49am Chief Complaint Admit Date RIGHT HIP November 21, 2024 9:59am RM 2 November 21, 2024 10:21a m B12 inject December 08, 2024 11:32 am PAIN- COPY PCP/ ADD EORDERS LAB AND XRAY January 07, 2025 2:18pm LEFT FLANK PAIN January 12, 2025 12:3 3pm R HIP RX HERE January 13, 2025 10:3 0am 6 M FU January 29, 2025 10:4 9am RIGHT HIP February 25, 2025 9:4 4am Reason for Visit Admit Date Obesity November 21, 2024 9:59am Primary osteoarthritis of right hip November 21, 2024 9:59am Spinal stenosis of lumbar region with ne urogenic claudication November 21, 2024 9:59am Polyneuropathy November 21, 2024 9:59am Fatigue December 08, 2024 11:32 am Fibromyalgia January 29, 2025 10:4 9am Peripheral vestibulopathy January 29 10:49am Fatigue January 29, 2025 10:4 9am Restless legs syndrome January 29, 2025 1 0:49am Obesity February 25, 2025 9:4 4am Primary osteoarthritis of right hip Augu 2024 9:44am Spinal stenosis of lumbar region with ne urogenic claudication February 25, 2025 9:44am Polyneuropathy February 25, 2025 9:4 4am Chief Complaint Admit Date RIGHT HIP November 21, 2024 9:59am RM 2 November 21, 2024 10:21a m B12 inject December 08, 2024 11:32 am PAIN- COPY PCP/ ADD EORDERS LAB AND XRAY January 07, 2025 2:18pm LEFT FLANK PAIN January 12, 2025 12:3 3pm R HIP RX HERE January 13, 2025 10:3 0am 6 M FU January 29, 2025 10:4 9am RIGHT HIP February 25, 2025 9:4 4am B12 inject March 09, 2025 11 :23am Reason for Visit Admit Date Obesity November 21, 2024 9:59am Primary osteoarthritis of right hip November 21, 2024 9:59am Spinal stenosis of lumbar re gion with neurogenic claudication November 21, 2024 9:59am Polyneuropathy November 21, 2024 9:59am Fatigue December 08, 2024 11:32 am Fibromyalgia January 29, 2025 10:4 9am Peripheral vestibulopathy January 29 10:49am Fatigue January 29, 2025 10:4 9am Restless legs syndrome January 29, 2025 1 0:49am Obesity February 25, 2025 9:4 4am Primary osteoarthritis of right hip Augu 2024 9:44am Spinal stenosis of lumbar re gion with neurogenic claudication February 25, 2025 9:44am Polyneuropathy February 25, 2025 9:4 4am Fatigue March 09, 2025 11 :23am Chief Complaint Admit Date RIGHT HIP November 21, 2024 9:59am RM 2 November 21, 2024 10:21a m B12 inject December 08, 2024 11:32 am PAIN- COPY PCP/ ADD EORDERS LAB AND XRAY January 07, 2025 2:18pm LEFT FLANK PAIN January 12, 2025 12:3 3pm R HIP RX HERE January 13, 2025 10:3 0am 6 M FU January 29, 2025 10:4 9am RIGHT HIP February 25, 2025 9:4 4am B12 inject March 09, 2025 11 :23am RIGHT LEG SWELLING March 09, 2025 2: 44pm RIGHT HIP OSTEO March 13, 2025 2: 09pm Medications Administered Section Inactive Administered Medications - [...] section and content) DATE CREATED AUTHOR 02/10/2020 [facility] DATE CREATED AUTHOR AUTHOR'S ORGANIZ ATION 06/29/2022 [facility] DATE CREATED AUTHOR AUTHOR'S ORGANIZ ATION 03/22/2025 [facility] DATE CREATED AUTHOR AUTHOR'S ORGANIZ ATION 03/22/2025 [facility] Goals (unrecognized section and content) Goals [...] or prosecute any alcohol or drug abuse patient.[facility]healthIn the event this information is protected by the Federal Confidentiality of Alcohol and Drug Abuse Patient Records regulations: The Federal rules restrict any use of the information to criminally investigate or prosecute any alcohol or drug abuse patient.[facility]healthIn the event this information is protected by the Federal Confidentiality of Alcohol and Drug Abuse Patient Records regulations: The Federal rules restrict any use of the information to criminally investigate or prosecute any alcohol or drug abuse patient.[facility]healthIn the event this information is protected by the Federal Confidentiality of Alcohol and Drug Abuse Patient Records regulations: The Federal rules restrict any use of the information to criminally investigate or prosecute any alcohol or drug abuse patient.[facility]healthIn the event this information is protected by the Federal Confidentiality of Alcohol and Drug Abuse Patient Records regulations: The Federal rules restrict any use of the information to criminally investigate or prosecute any alcohol or drug abuse patient.[facility] the event this information is protected by the Federal Confidentiality of Alcohol and Drug Abuse Patient Records regulations: The Federal rules restrict any use of the information to criminally investigate or prosecute any alcohol or drug abuse patient.[facility]healthIn the event this information is protected by the Federal Confidentiality of Alcohol and Drug Abuse Patient Records regulations: The Federal rules restrict any use of the information to criminally investigate or prosecute any alcohol or drug abuse patient.[facility]healthIn the event this information is protected by the Federal Confidentiality of Alcohol and Drug Abuse Patient Records regulations: The Federal rules restrict any use of the information to criminally investigate or prosecute any alcohol or drug abuse patient.[facility] the event this information is protected by the Federal Confidentiality of Alcohol and Drug Abuse Patient Records regulations: The Federal rules restrict any use of the information to criminally investigate or prosecute any alcohol or drug abuse patient.[facility]healthIn the event this information is protected by the Federal Confidentiality of Alcohol and Drug Abuse Patient Records regulations: The Federal rules restrict any use of the information to criminally investigate or prosecute any alcohol or drug abuse patient.[facility]healthIn the event this information is protected by the Federal Confidentiality of Alcohol and Drug Abuse Patient Records regulations: The Federal rules restrict any use of the information to criminally investigate or prosecute any alcohol or drug abuse patient.[facility]healthIn the event this information is protected by the Federal Confidentiality of Alcohol and Drug Abuse Patient Records regulations: The Federal rules restrict any use of the information to criminally investigate or prosecute any alcohol or drug abuse patient.[facility]healthIn the event this information is protected by the Federal Confidentiality of Alcohol and Drug Abuse Patient Records regulations: The Federal rules restrict any use of the information to criminally investigate or prosecute any alcohol or drug abuse patient.[facility]healthIn the event this information is protected by the Federal Confidentiality of Alcohol and Drug Abuse Patient Records regulations: The Federal rules restrict any use of the information to criminally investigate or prosecute any alcohol or drug abuse patient.[facility]healthIn the event this information is protected by the Federal Confidentiality of Alcohol and Drug Abuse Patient Records regulations: The Federal rules restrict any use of the information to criminally investigate or prosecute any alcohol or drug abuse patient.[facility] Reason for Visit (unrecogniz ed section and [...] days ago and now pain is worse Reason Comments Yearly Exam Care Teams (unrecognized sec tion and content) Team Status: Active Member Role Status Petey Bush MD Primary Care Provider Active Team Status: Active Member Role Status Petey Castro DO Primary Care Provider Active Start: September 29, 2024 Dr. Jose Ramon Mckenzie MD Attending Provider Active S tart: September 29, 2024 Dr. Jose Ramon Mckenzie MD Referring Provider Active S tart: September 29, 2024 Team Status: Inactive Member Role Status Petey Bush MD Primary Care Provider Active St art: September 29, 2024 End: September 29, 2024 Dr. Jose Ramon Mckenzie MD Attending Provider Active S tart: September 29, 2024 End: September 29, 2024 Dr. Jose Ramon Mckenzie MD Referring Provider Active S tart: September 29, 2024 End: September 29, 2024 Team Status: Inactive Member Role Status Petey Bush MD Primary Care Provider Active St art: October 02, 2024 End: October 02, 2024 Dr. Gilberto Rasmussen MD Attending Provider Active Start: October 02, 2024 End: October 02, 2024 Dr. Gilberto Rasmussen MD Referring Provider Active Start: October 02, 2024 End: October 02, 2024 Team Status: Inactive Member Role Status Petey Bush MD Primary Care Provider Active St art: October 06, 2024 End: October 06, 2024 Meir Bush MD Referring Provider Active Start : October 06, 2024 End: October 06, 2024 Dr. Jose Ramon Mckenzie MD Attending Provider Active S tart: October 06, 2024 End: October 06, 2024 Team Status: Inactive Member Role Status Petey Bush MD Primary Care Provider Active St art: October 23, 2024 End: October 23, 2024 Dr. Doris Yip MD Attending Provider Active Start: October 23, 2024 End: October 23, 2024 Dr. Doris Yip MD Referring Provider Active Start: October 23, 2024 End: October 23, 2024 Team Status: Inactive Member Role Status Petey Bush MD Primary Care Provider Active St art: November 06, 2024 End: November 06, 2024 Dr. Gilberto Rasmussen MD Attending Provider Active Start: November 06, 2024 End: November 06, 2024 Dr. Gilberto Rasmussen MD Referring Provider Active Start: November 06, 2024 End: November 06, 2024 Team Status: Inactive Member Role Status Petey Bush MD Primary Care Provider Active St art: November 07, 2024 End: November 07, 2024 Meir Bush MD Referring Provider Active Start : November 07, 2024 End: November 07, 2024 Dr. Juve Johnson MD Attending Provider Active Start: November 07, 2024 End: November 07, 2024 Team Status: Inactive Member Role Status Petey Bush MD Primary Care Provider Active St art: November 07, 2024 End: November 07, 2024 Dr. Librado Benjamin MD Attending Provider Active S tart: November 07, 2024 End: November 07, 2024 Team Status: Inactive Member Role Status Petey Bush MD Primary Care Provider Active St art: 2024 End: 2024 CARDIAC TECHNICIAN. Candida Diaz Attending Provider Active Star t: 2024 End: 2024 CARDIAC TECHNICIAN. Candida Diaz Referring Provider Active Star t: 2024 End: 2024 Team Status: Inactive Member Role Status Petey Bush MD Primary Care Provider Active St art: November 21, 2024 End: November 21, 2024 Meir Bush MD Referring Provider Active Start : November 21, 2024 End: November 21, 2024 Dr. Jose Ramon Terry DO Attending Provider Active Start: November 21, 2024 End: November 21, 2024 Team Status: Inactive Member Role Status Petey Bush MD Primary Care Provider Active St art: November 21, 2024 End: November 21, 2024 Dr. Librado Benjamin MD Attending Provider Active S tart: November 21, 2024 End: November 21, 2024 Team Status: Inactive Member Role Status Petey Bush MD Primary Care Provider Active St art: December 08, 2024 End: December 08, 2024 Dr. Gilberto Rasmussen MD Attending Provider Active Start: December 08, 2024 End: December 08, 2024 Dr. Gilberto Rasmussen MD Referring Provider Active Start: December 08, 2024 End: December 08, 2024 Team Status: Active Member Role Status Dates Meir Bush MD Primary Care Provider Active St art: January 07, 2025 Dr. Doris Yip MD Attending Provider Active Start: January 07, 2025 Dr. Doris Yip MD Referring Provider Active Start: January 07, 2025 Indira Valdez CARDIAC TECHNICIAN, CARDIAC TECHNICIAN-C Other Provider Active St art: January 07, 2025 Team Status: Active Member Role Status Dates Meir Bush MD Primary Care Provider Active St art: January 08, 2025 Dr. Jose Ramon Terry DO Attending Provider Active Start: January 08, 2025 Dr. Jose Ramon Terry DO Referring Provider Active Start: January 08, 2025 Team Status: Inactive Member Role Status Dates Meir Bush MD Primary Care Provider Active St art: January 12, 2025 End: January 12, 2025 Dr. Juan Manuel Enamorado DO Emergency Provider Active S tart: January 12, 2025 End: January 12, 2025 Tile And Marble Setter Relationship Specialty Start Date End Date Autumn Almanzar [address] [facility] [address] [place] [address] PCP - General Family Medicine 04/12/22 Tile And Marble Setter Relationship Specialty Start Date End Date Autumn Almanzar [address] [facility] [address] [place] [address] PCP - General Family Medicine 04/12/22 Tile And Marble Setter Relationship Specialty Start Date End Date Autumn Almanzar [address] [facility] [address] [place] [address] PCP - General Family Medicine 04/12/22 Team [...] MD Primary Care Provider Active Josefa Rocha CARDIAC TECHNICIAN, CARDIAC TECHNICIAN-C Attending Provider Active Team Status: Inactive Member [...] Referring Provider Active Dr. Jose Ramon Terry DO Attending Provider Active Team Status: Inactive [...] Care Provider Active Dr. Jose Ramon Terry DO Attending Provider, Referring Provider Active Team Status: Inactive Member Role Status Dates Deysi Castro DO Primary Care Provider Active Dr. Osiris Arana MD Emergency Provider Active Tile And Marble Setter Relationship Specialty Start Date End Date Autumn [facility]manzar [address] [facility] [address] [place] [address] PCP - General Family Medicine 04/12/22 Team Status: Active Member Role Status Dates Deysi Castro DO Primary Care Provider Active Dr. Max Lara DO Emergency Provider Active Dr. Kenney Vizcarra [...] MD Attending Provider, Referrin g Provider Active Tile And Marble Setter Relationship Specialty Start Date End Date Autumn Almanzar [address] [place], [place] [id number] PCP - General Family Medicine 04/12/22 Gerard Pereyra V [address] [place] [id number] Internal Medicine 02/09/23 Team Status: Inactive Member Role Status Dates Deysi Castro , DO Primary Care Provider Active Meir Bush MD Attending Provider, Referring Provide r Active Team Status: Inactive Member Role Status Dates Deysi Castro , DO Primary Care Provider, Referring Provider Active Autumn Caldwell CARDIAC TECHNICIAN, CARDIAC TECHNICIAN-C Attending Provider Active Team Status: Active Member Role Status Dates Deysi Castro DO Primary Care Provider Active Cristina Guevara LPN Attending Provider Active Team Status: Inactive Member Role Status Dates Deysi Castro , DO Primary Care Provider Active Autumn Caldwell CARDIAC TECHNICIAN, CARDIAC TECHNICIAN-C Attending Provider, Referring Pro vider Active Tile And Marble Setter Relationship Specialty Start Date End Date Doreen Baig (Pss) PCP - General 03/13/23 Gerard Pereyra V [address] [place] [id number] Internal Medicine 02/09/23 Tile And Marble Setter Relationship Specialty Start Date End Date Doreen Baig (Pss) PCP - General 03/13/23 Gerard Pereyra V [address] [facility] [place] [address] Internal Medicine 02/09/23 Team Status: Inactive Member [...] Deysi Castro DO Primary Care Provider Active Kathleen De Leon [...] Dr. Gerard Pereyra MD Referring Provider Active Tile And Marble Setter Relationship Specialty Start Date End Date Doreen Baig (Pss) PCP - General 03/13/23 Gerard Pereyra V [address] [place] [id number] Internal Medicine 02/09/23 Team Status: Inactive Member [...] Dates Deysi Castro DO Primary Care Provider, Attending Provider Active Team Status: Inactive Member Role Status Dates Deysi Castro DO Primary Care Provider, Referring Provider Active Bernard LANE, PA Attending Provider Active Team Status: Inactive [...] Deysi Castro DO Primary Care Provider Active UTE Salvador Attending Provider, Referring Pr ovider Active Team [...] Team Status: Inactive Member Role Status Dates Meir Bush MD Primary Care Provider Active St art: July 07, 2024 End: July 07, 2024 Josefa Rocha CARDIAC TECHNICIAN, CARDIAC TECHNICIAN-C Attending Provider Active S tart: July 07, 2024 End: July 07, 2024 Josefa Rocha CARDIAC TECHNICIAN, CARDIAC TECHNICIAN-C Referring Provider Active S tart: July 07, 2024 End: July 07, 2024 Team Status: Inactive Member Role Status Petey Bush MD Primary Care Provider Active St art: July 09, 2024 End: July 09, 2024 Dr. Doris Yip MD Attending Provider Active Start: July 09, 2024 End: July 09, 2024 Dr. Doris Yip MD Referring Provider Active Start: July 09, 2024 End: July 09, 2024 Team Status: Inactive Member Role Status Dates Dr. Gilberto Rasmussen MD Attending Provider Active Start: July 31, 2024 End: July 31, 2024 Dr. Gilberto Rasmussen MD Referring Provider Active Start: July 31, 2024 End: July 31, 2024 Meir Bush MD Primary Care Provider Active St art: July 31, 2024 End: July 31, 2024 Team Status: Inactive Member Role Status Petey Bush MD Primary Care Provider Active St art: August 01, 2024 End: August 01, 2024 Meir Bush MD Attending Provider Active Start : August 01, 2024 End: August 01, 2024 Meir Bush MD Referring Provider Active Start : August 01, 2024 End: August 01, 2024 Team Status: Inactive Member Role Status Petey Bush MD Primary Care Provider Active St art: August 04, 2024 End: August 04, 2024 Josefa Rocha CARDIAC TECHNICIAN, CARDIAC TECHNICIAN-C Attending Provider Active S tart: August 04, 2024 End: August 04, 2024 Josefa Rocha CARDIAC TECHNICIAN, CARDIAC TECHNICIAN-C Referring Provider Active S tart: August 04, 2024 End: August 04, 2024 Team Status: Inactive Member Role Status Petey Bush MD Primary Care Provider Active St art: August 28, 2024 End: August 28, 2024 Dr. Doris Yip MD Attending Provider Active Start: August 28, 2024 End: August 28, 2024 Dr. Doris Yip MD Referring Provider Active Start: August 28, 2024 End: August 28, 2024 Team Status: Inactive Member Role Status Petey Bush MD Primary Care Provider Active St art: September 02, 2024 End: September 02, 2024 Dr. Gilberto Rasmussen MD Attending Provider Active Start: September 02, 2024 End: September 02, 2024 Dr. Gilberto Rasmussen MD Referring Provider Active Start: September 02, 2024 End: September 02, 2024 Team Status: Inactive Member Role Status Petey Bush MD Primary Care Provider Active St art: October 02, 2024 End: October 02, 2024 Meir Bush MD Referring Provider Active Start : October 02, 2024 End: October 02, 2024 Dr. Gilberto Rasmussen MD Attending Provider Active Start: October 02, 2024 End: October 02, 2024 Team Status: Inactive Member Role Status Petey Bush MD Primary Care Provider Active St art: November 06, 2024 End: November 06, 2024 Meir Bush MD Referring Provider Active Start : November 06, 2024 End: November 06, 2024 Dr. Gilberto Rasmussen MD Attending Provider Active Start: November 06, 2024 End: November 06, 2024 Team Status: Inactive Member Role Status Petey Bush MD Primary Care Provider Active St art: December 08, 2024 End: December 08, 2024 Meir Bush MD Referring Provider Active Start : December 08, 2024 End: December 08, 2024 Dr. Gilberto Rasmussen MD Attending Provider Active Start: December 08, 2024 End: December 08, 2024 Tile And Marble Setter Relationship Specialty Start Date End Date Meir Bush MD [address] [place], [place] [id number] PCP - General Internal Medicine 12/27/24 Gerard Pereyra V [address] [place] [address] Internal Medicine 02/09/23 Tile And Marble Setter Relationship Specialty Start Date End Date Meir Bush MD [address] [place] [address] PCP - General Internal Medicine 12/27/24 Gerard Pereyra V [address] [place] [place] [address] Internal Medicine 02/09/23 Tile And Marble Setter Relationship Specialty Start Date End Date Meir Bush MD [address] [place], [place] [id number] PCP - General Internal Medicine 12/27/24 Gerard Pereyra V [address] [place] [id number] Internal Medicine 02/09/23 Team Status: Inactive Member Role Status Dates Meir Bush MD Primary Care Provider Active St art: January 07, 2025 End: January 07, 2025 Dr. Doris Yip MD Attending Provider Active Start: January 07, 2025 End: January 07, 2025 Dr. Doris Yip MD Referring Provider Active Start: January 07, 2025 End: January 07, 2025 Indira [facility] CARDIAC TECHNICIAN, CARDIAC TECHNICIAN-C Other Provider Active St art: January 07, 2025 End: January 07, 2025 Team Status: Active Member Role Status Petey Bush MD Primary Care Provider Active St art: January 13, 2025 Dr. Jose Ramon Terry DO Attending Provider Active Start: January 13, 2025 Dr. Jose Ramon Terry DO Referring Provider Active Start: January 13, 2025 Team Status: Inactive Member Role Status Petey Bush MD Primary Care Provider Active St art: January 13, 2025 End: January 13, 2025 Dr. Jose Ramon Terry DO Attending Provider Active Start: January 13, 2025 End: January 13, 2025 Dr. Jose Ramon Terry DO Referring Provider Active Start: January 13, 2025 End: January 13, 2025 Team Status: Active Member Role/Relationship Status Petey Bush MD Primary Care Provider Active Team Status: Inactive Member Role/Relationship Status Petey Bush MD Primary Care Provider Active St art: October 02, 2024 End: October 02, 2024 Dr. Gilberto Rasmussen MD Attending Provider Active Start: October 02, 2024 End: October 02, 2024 Dr. Gilberto Rasmussen MD Referring Provider Active Start: October 02, 2024 End: October 02, 2024 Team Status: Inactive Member Role/Relationship Status Petey Bush MD Primary Care Provider Active St art: October 06, 2024 End: October 06, 2024 Meir Bush MD Referring Provider Active Start : October 06, 2024 End: October 06, 2024 Dr. Jose Ramon Mckenzie MD Attending Provider Active S tart: October 06, 2024 End: October 06, 2024 Team Status: Inactive Member Role/Relationship Status Petey Bush MD Primary Care Provider Active St art: October 23, 2024 End: October 23, 2024 Dr. Doris Yip MD Attending Provider Active Start: October 23, 2024 End: October 23, 2024 Dr. Doris Yip MD Referring Provider Active Start: October 23, 2024 End: October 23, 2024 Team Status: Inactive Member Role/Relationship Status Petey Bush MD Primary Care Provider Active St art: November 06, 2024 End: November 06, 2024 Dr. Gilberto Rasmussen MD Attending Provider Active Start: November 06, 2024 End: November 06, 2024 Dr. Gilberto Rasmussen MD Referring Provider Active Start: November 06, 2024 End: November 06, 2024 Team Status: Inactive Member Role/Relationship Status Petey Bush MD Primary Care Provider Active St art: November 07, 2024 End: November 07, 2024 Meir Bush MD Referring Provider Active Start : November 07, 2024 End: November 07, 2024 Dr. Juve Johnson MD Attending Provider Active Start: November 07, 2024 End: November 07, 2024 Team Status: Inactive Member Role/Relationship Status Petey Bush MD Primary Care Provider Active St art: November 07, 2024 End: November 07, 2024 Dr. Librado Benjamin MD Attending Provider Active S tart: November 07, 2024 End: November 07, 2024 Team Status: Inactive Member Role/Relationship Status Petey Bush MD Primary Care Provider Active St art: 2024 End: 2024 CARDIAC TECHNICIAN. Candida Diaz Attending Provider Active Star t: 2024 End: 2024 CARDIAC TECHNICIAN. Candida Diaz Referring Provider Active Star t: 2024 End: 2024 Team Status: Inactive Member Role/Relationship Status Petey Bush MD Primary Care Provider Active St art: November 21, 2024 End: November 21, 2024 Meir Bush MD Referring Provider Active Start : November 21, 2024 End: November 21, 2024 Dr. Jose Ramon Terry DO Attending Provider Active Start: November 21, 2024 End: November 21, 2024 Team Status: Inactive Member Role/Relationship Status Petey Bush MD Primary Care Provider Active St art: November 21, 2024 End: November 21, 2024 Dr. Librado Benjamin MD Attending Provider Active S tart: November 21, 2024 End: November 21, 2024 Team Status: Inactive Member Role/Relationship Status Petey Bush MD Primary Care Provider Active St art: December 08, 2024 End: December 08, 2024 Dr. Gilberto Rasmussen MD Attending Provider Active Start: December 08, 2024 End: December 08, 2024 Dr. Gilberto Rasmussen MD Referring Provider Active Start: December 08, 2024 End: December 08, 2024 Team Status: Inactive Member Role/Relationship Status Petey Bush MD Primary Care Provider Active St art: January 07, 2025 End: January 07, 2025 Dr. Doris Yip MD Attending Provider Active Start: January 07, 2025 End: January 07, 2025 Dr. Doris Yip MD Referring Provider Active Start: January 07, 2025 End: January 07, 2025 Indira McMorrow CARDIAC TECHNICIAN, CARDIAC TECHNICIAN-C Other Provider Active St art: January 07, 2025 End: January 07, 2025 Team Status: Inactive Member Role/Relationship Status Petey Bush MD Primary Care Provider Active St art: January 12, 2025 End: January 12, 2025 Dr. Juan Manuel Enamorado DO Attending Provider Active S tart: January 12, 2025 End: January 12, 2025 Dr. Juan Manuel Enamorado DO Emergency Provider Active S tart: January 12, 2025 End: January 12, 2025 Team Status: Inactive Member Role/Relationship Status Petey Bush MD Primary Care Provider Active St art: January 13, 2025 End: January 13, 2025 Dr. Jose Ramon Terry DO Attending Provider Active Start: January 13, 2025 End: January 13, 2025 Dr. Jose Ramon Terry DO Referring Provider Active Start: January 13, 2025 End: January 13, 2025 Team Status: Inactive Member Role/Relationship Status Petey Bush MD Primary Care Provider Active St art: January 29, 2025 End: January 29, 2025 Meir Bush MD Referring Provider Active Start : January 29, 2025 End: January 29, 2025 Dr. Gilberto Rasmussen MD Attending Provider Active Start: January 29, 2025 End: January 29, 2025 Team Status: Inactive Member Role/Relationship Status Petey Bush MD Primary Care Provider Active St art: November 06, 2024 End: November 06, 2024 Dr. Gilberto Rasmussen MD Attending Provider Active Start: November 06, 2024 End: November 06, 2024 Dr. Gilberto Rasmussen MD Referring Provider Active Start: November 06, 2024 End: November 06, 2024 Team Status: Inactive Member Role/Relationship Status Petey Bush MD Primary Care Provider Active St art: November 07, 2024 End: November 07, 2024 Meir Bush MD Referring Provider Active Start : November 07, 2024 End: November 07, 2024 Dr. Juve Johnson MD Attending Provider Active Start: November 07, 2024 End: November 07, 2024 Team Status: Inactive Member Role/Relationship Status Petey Bush MD Primary Care Provider Active St art: November 07, 2024 End: November 07, 2024 Dr. Librado Benjamin MD Attending Provider Active S tart: November 07, 2024 End: November 07, 2024 Team Status: Inactive Member Role/Relationship Status Petey Bush MD Primary Care Provider Active St art: 2024 End: 2024 CARDIAC TECHNICIAN. Candida Diaz Attending Provider Active Star t: 2024 End: 2024 CARDIAC TECHNICIAN. Candida Diaz Referring Provider Active Star t: 2024 End: 2024 Team Status: Inactive Member Role/Relationship Status Petey Bush MD Primary Care Provider Active St art: November 21, 2024 End: November 21, 2024 Meir Bush MD Referring Provider Active Start : November 21, 2024 End: November 21, 2024 Dr. Jose Ramon Terry DO Attending Provider Active Start: November 21, 2024 End: November 21, 2024 Team Status: Inactive Member Role/Relationship Status Petey Bush MD Primary Care Provider Active St art: November 21, 2024 End: November 21, 2024 Dr. Librado Benjamin MD Attending Provider Active S tart: November 21, 2024 End: November 21, 2024 Team Status: Inactive Member Role/Relationship Status Petey Bush MD Primary Care Provider Active St art: December 08, 2024 End: December 08, 2024 Dr. Gilberto Rasmussen MD Attending Provider Active Start: December 08, 2024 End: December 08, 2024 Dr. Gilberto Rasmussen MD Referring Provider Active Start: December 08, 2024 End: December 08, 2024 Team Status: Inactive Member Role/Relationship Status Petey Bush MD Primary Care Provider Active St art: January 07, 2025 End: January 07, 2025 Dr. Doris Yip MD Attending Provider Active Start: January 07, 2025 End: January 07, 2025 Dr. Doris Yip MD Referring Provider Active Start: January 07, 2025 End: January 07, 2025 Indira Valdez CARDIAC TECHNICIAN, CARDIAC TECHNICIAN-C Other Provider Active St art: January 07, 2025 End: January 07, 2025 Team Status: Inactive Member Role/Relationship Status Petey Bush MD Primary Care Provider Active St art: January 12, 2025 End: January 12, 2025 Dr. Juan Manuel Enamorado DO Attending Provider Active S tart: January 12, 2025 End: January 12, 2025 Dr. Juan Manuel Enamorado DO Emergency Provider Active S tart: January 12, 2025 End: January 12, 2025 Team Status: Inactive Member Role/Relationship Status Petey Bush MD Primary Care Provider Active St art: January 13, 2025 End: January 13, 2025 Dr. Jose Ramon Terry DO Attending Provider Active Start: January 13, 2025 End: January 13, 2025 Dr. Jose Ramon Terry DO Referring Provider Active Start: January 13, 2025 End: January 13, 2025 Team Status: Inactive Member Role/Relationship Status Petey Bush MD Primary Care Provider Active St art: January 20, 2025 Dr. Rajani Wharton MD Attending Provider Active Start: January 20, 2025 Team Status: Inactive Member Role/Relationship Status Petey Bush MD Primary Care Provider Active St art: January 29, 2025 End: January 29, 2025 Meir Bush MD Referring Provider Active Start : January 29, 2025 End: January 29, 2025 Dr. Gilberto Rasmussen MD Attending Provider Active Start: January 29, 2025 End: January 29, 2025 Team Status: Active Member Role/Relationship Status Petey Bush MD Primary Care Provider Active St art: February 19, 2025 Meir Bush MD Attending Provider Active Start : February 19, 2025 Meir Bush MD Referring Provider Active Start : February 19, 2025 Team Status: Inactive Member Role/Relationship Status Petey Bush MD Primary Care Provider Active St art: February 25, 2025 End: February 25, 2025 Meir Bush MD Referring Provider Active Start : February 25, 2025 End: February 25, 2025 Dr. Jose Ramon Terry DO Attending Provider Active Start: February 25, 2025 End: February 25, 2025 Team Status: Inactive Member Role/Relationship Status Petey Bush MD Primary Care Provider Active St art: 2024 End: 2024 NP. Candida Diaz Attending Provider Active Star t: 2024 End: 2024 NP. Candida Diaz Referring Provider Active Star t: 2024 End: 2024 Team Status: Inactive Member Role/Relationship Status Petey Bush MD Primary Care Provider Active St art: November 21, 2024 End: November 21, 2024 Meir Bush MD Referring Provider Active Start : November 21, 2024 End: November 21, 2024 Dr. Jose Ramon Terry DO Attending Provider Active Start: November 21, 2024 End: November 21, 2024 Team Status: Inactive Member Role/Relationship Status Petey Bush MD Primary Care Provider Active St art: November 21, 2024 End: November 21, 2024 Dr. Librado Benjamin MD Attending Provider Active S tart: November 21, 2024 End: November 21, 2024 Team Status: Inactive Member Role/Relationship Status Petey Bush MD Primary Care Provider Active St art: December 08, 2024 End: December 08, 2024 Dr. Gilberto Rasmussen MD Attending Provider Active Start: December 08, 2024 End: December 08, 2024 Dr. Gilberto Rasmussen MD Referring Provider Active Start: December 08, 2024 End: December 08, 2024 Team Status: Inactive Member Role/Relationship Status Petey Bush MD Primary Care Provider Active St art: January 07, 2025 End: January 07, 2025 Dr. Doris Yip MD Attending Provider Active Start: January 07, 2025 End: January 07, 2025 Dr. Doris Yip MD Referring Provider Active Start: January 07, 2025 End: January 07, 2025 Indira [facility] CARDIAC TECHNICIAN, CARDIAC TECHNICIAN-C Other Provider Active St art: January 07, 2025 End: January 07, 2025 Team Status: Inactive Member Role/Relationship Status Petey Bush MD Primary Care Provider Active St art: January 12, 2025 End: January 12, 2025 Dr. Juan Manuel Enamorado DO Attending Provider Active S tart: January 12, 2025 End: January 12, 2025 Dr. Juan Manuel Enamorado DO Emergency Provider Active S tart: January 12, 2025 End: January 12, 2025 Team Status: Inactive Member Role/Relationship Status Petey Bush MD Primary Care Provider Active St art: January 13, 2025 End: January 13, 2025 Dr. Jose Ramon Terry DO Attending Provider Active Start: January 13, 2025 End: January 13, 2025 Dr. Jose Ramon Terry DO Referring Provider Active Start: January 13, 2025 End: January 13, 2025 Team Status: Inactive Member Role/Relationship Status Dates Meir Bush MD Primary Care Provider Active St art: January 20, 2025 Dr. Rajani Wharton MD Attending Provider Active Start: January 20, 2025 Team Status: Inactive Member Role/Relationship Status Dates Meir Bush MD Primary Care Provider Active St art: January 29, 2025 End: January 29, 2025 Meir Bush MD Referring Provider Active Start : January 29, 2025 End: January 29, 2025 Dr. Gilberto Rasmussen MD Attending Provider Active Start: January 29, 2025 End: January 29, 2025 Team Status: Inactive Member Role/Relationship Status Dates Meir Bush MD Primary Care Provider Active St art: February 19, 2025 End: February 19, 2025 Meir Bush MD Attending Provider Active Start : February 19, 2025 End: February 19, 2025 Meir Bush MD Referring Provider Active Start : February 19, 2025 End: February 19, 2025 Team Status: Inactive Member Role/Relationship Status Petey Bush MD Primary Care Provider Active St art: February 25, 2025 End: February 25, 2025 Meir Bush MD Referring Provider Active Start : February 25, 2025 End: February 25, 2025 Dr. Jose Ramon Terry DO Attending Provider Active Start: February 25, 2025 End: February 25, 2025 Team Status: Inactive Member Role/Relationship Status Petey Bush MD Primary Care Provider Active St art: March 09, 2025 End: March 09, 2025 Meir Bush MD Referring Provider Active Start : March 09, 2025 End: March 09, 2025 Dr. Gilbetro Rasmussen MD Attending Provider Active Start: March 09, 2025 End: March 09, 2025 [employer] Marble Setter Relationship Specialty Start Date End Date Meir Bush MD [address] [place] [address] PCP - General Internal Medicine 12/27/24 [address] [place] [id number] Internal Medicine 02/09/23 Team Status: Inactive Member Role/Relationship Status Petey Bush MD Primary Care Provider Active St art: November 21, 2024 End: November 21, 2024 Meir Bush MD Referring Provider Active Start : November 21, 2024 End: November 21, 2024 Dr. Jose Ramon Terry DO Attending Provider Active Start: November 21, 2024 End: November 21, 2024 Team Status: Inactive Member Role/Relationship Status Petey Bush MD Primary Care Provider Active St art: November 21, 2024 End: November 21, 2024 Dr. Librado Benjamin MD Attending Provider Active S tart: November 21, 2024 End: November 21, 2024 Team Status: Inactive Member Role/Relationship Status Petey Bush MD Primary Care Provider Active St art: December 08, 2024 End: December 08, 2024 Dr. Gilberto Rasmussen MD Attending Provider Active Start: December 08, 2024 End: December 08, 2024 Dr. Gilberto Rasmussen MD Referring Provider Active Start: December 08, 2024 End: December 08, 2024 Team Status: Inactive Member Role/Relationship Status Petey Bush MD Primary Care Provider Active St art: January 07, 2025 End: January 07, 2025 Dr. Doris Yip MD Attending Provider Active Start: January 07, 2025 End: January 07, 2025 Dr. Doris Yip MD Referring Provider Active Start: January 07, 2025 End: January 07, 2025 Indira Valdez CARDIAC TECHNICIAN, CARDIAC TECHNICIAN-C Other Provider Active St art: January 07, 2025 End: January 07, 2025 Team Status: Inactive Member Role/Relationship Status Petey Bush MD Primary Care Provider Active St art: January 12, 2025 End: January 12, 2025 Dr. Juan Manuel Enamorado DO Attending Provider Active S tart: January 12, 2025 End: January 12, 2025 Dr. Juan Manuel Enamorado DO Emergency Provider Active S tart: January 12, 2025 End: January 12, 2025 Team Status: Inactive Member Role/Relationship Status Dates Meir Bush MD Primary Care Provider Active St art: January 13, 2025 End: January 13, 2025 Dr. Jose Ramon Terry DO Attending Provider Active Start: January 13, 2025 End: January 13, 2025 Dr. Jose Ramon Terry DO Referring Provider Active Start: January 13, 2025 End: January 13, 2025 Team Status: Inactive Member Role/Relationship Status Petey Bush MD Primary Care Provider Active St art: January 20, 2025 Dr. Rajani Wharton MD Attending Provider Active Start: January 20, 2025 Team Status: Inactive Member Role/Relationship Status Petey Bush MD Primary Care Provider Active St art: January 29, 2025 End: January 29, 2025 Dr. Gilberto Rasmussen MD Attending Provider Active Start: January 29, 2025 End: January 29, 2025 Dr. Gilberto Rasmussen MD Referring Provider Active Start: January 29, 2025 End: January 29, 2025 Team Status: Inactive Member Role/Relationship Status Petey Bush MD Primary Care Provider Active St art: February 19, 2025 End: February 19, 2025 Meir Bush MD Attending Provider Active Start : February 19, 2025 End: February 19, 2025 Meir Bush MD Referring Provider Active Start : February 19, 2025 End: February 19, 2025 Team Status: Inactive Member Role/Relationship Status Petey Bush MD Primary Care Provider Active St art: February 25, 2025 End: February 25, 2025 Meir Bush MD Referring Provider Active Start : February 25, 2025 End: February 25, 2025 Dr. Jose Ramon Terry DO Attending Provider Active Start: February 25, 2025 End: February 25, 2025 Team Status: Inactive Member Role/Relationship Status Petey Bush MD Primary Care Provider Active St art: March 09, 2025 End: March 09, 2025 Meir Bush MD Referring Provider Active Start : March 09, 2025 End: March 09, 2025 Dr. Gilberto Rasmussen MD Attending Provider Active Start: March 09, 2025 End: March 09, 2025 Team Status: Inactive Member Role/Relationship Status Petey Bush MD Primary Care Provider Active St art: March 09, 2025 End: March 09, 2025 Dr. Jose Ramon Terry DO Attending Provider Active Start: March 09, 2025 End: March 09, 2025 Dr. Jose Ramon Terry DO Referring Provider Active Start: March 09, 2025 End: March 09, 2025 Team Status: Active Member Role/Relationship Status Petey Bush MD Primary Care Provider Active St art: March 13, 2025 Dr. Jose Ramon Terry DO Attending Provider Active Start: March 13, 2025 Dr. Jose Ramon Terry DO Referring Provider Active Start: March 13, 2025 Team Status: Inactive Member Role/Relationship Status Petey Bush MD Primary Care Provider Active St art: March 13, 2025 End: March 13, 2025 Dr. Jose Ramon Terry DO Attending Provider Active Start: March 13, 2025 End: March 13, 2025 Dr. Jose Ramon Terry DO Referring Provider Active Start: March 13, 2025 End: March 13, 2025 FOR RECORDS PERTAINING TO PATIENTS WHO ARE [...] BE BASED ON THE PRIMARY CLINICAL RECORDS. [facility] [employer], [facility]. provides no warranty or guarantee of the accuracy or completeness of information in this document.
[2025-03-24 06:11] LABS: INR Fingerstick 1.4
[2025-03-24] MEDS: LR 1,000 ML - BOLUS PREOP 999 ML IV (06:18)
[2025-03-24] MEDS: Magnesium 2 GM for ERAS IV (06:18)
[2025-03-24 06:42] LABS: Prothrombin Time (Protime)PT. 12.9 SECONDS (11.7-14.9)
[2025-03-24] MEDS: Scopolamine 1mg/72hr Patch 1 PATCH TD (06:46)
--- NOTE | 2025-03-24 07:08 | PCM.PRE.AN2 ---
ASA Classification* ASA Classification ASA Classification: 3 Assessment & Plan Anesthesia* Anesthesia Assessment Anesthesia Assessment: Discussed sedation and/or anesthesia options, risks, benefits, and alternatives with patient/parents/legal guardian/POA. Questions invited. The patient/parents/legal guardian/POA seems to understand and agrees to proceed with anesthesia plan. Reviewed the physical assessment, medical history, allergy history and patient home medications list prior to surgery/procedure/anesthetic and documented any changes. Performed airway and anesthesia risk assessments. Anesthesia Type Anesthesia Type: Spinal (General Backup) Anesthesia Focused Assessment* Temperature: 97.1 F Pulse Rate: 81 Blood Pressure: 117/89 Respiratory Rate: 18 Pulse Ox: 97 Airway Assessment Mouth opens: >3 cm Mallampati Score: III Labs Anesthesia Preop lab: CBC WBC 8.8 K/mm3 (4.4-11.0) 01/12/25 13:35 01/12/25 RBC 3.98 M/mm3 (4.2-5.4) L 01/12/25 13:35 01/12/25 Hgb 12.3 g/dL (12.0-15.0) 01/12/25 13:35 01/12/25 Hct 37.4 % (37-47) 01/12/25 13:35 01/12/25 Plt Count 311 K/mm3 (150-450) 01/12/25 13:35 01/12/25 CHEMISTRY Potassium 4.4 mmol/L (3.3-5.1) 02/19/25 11:02/19/25 Sodium 138 mmol/L (133-145) 02/19/25 11:02/19/25 Magnesium 1.9 mg/dL (1.5-2.2) 03/16/25 08:08 03/16/25 Phosphorus 3.4 mg/dL (2.5-4.9) 04/13/23 09:20 04/13/23 BUN 27 mg/dL (4-19) H 02/19/25 11:02/19/25 Creatinine 0.98 mg/dL (0.70-1.20) 02/19/25 11:02/19/25 Glucose 123 mg/dL (70-99) H 02/19/25 11:02/19/25 POC Glucose 177 mg/dL (74-106) H 01/25/23 11:36 01/25/23 TSH 0.814 uIU/mL (0.300-4.200) 09/29/24 13:11 09/29/24 COAG PT 12.9 SECONDS (11.7-14.9) 03/24/25 06:22 03/24/25 Pre-Assessment Diagnosis/Proposed Procedure Planned Operative Procedure(s): RIGHT TOTAL H IP ARTHROPLASTY Anesthesia History Anesthesia 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 When Was Last Pacemaker Check QUESTION #4 FULL TEXT: You/Your Family Experience fever (hyperthermia) with Anesthesia Last Oral Intake Last Oral intake: Last Oral Intake NPO since 03:00 03/24/25 06:36 Meds taken in AM with sips of Yes 03/24/25 06:36 water? Meds patient instructed to take am of surgery PONV PONV - marketing administrative assistant: PONV - marketing administrative assistant Female Yes 03/10/25 15:14 HX of Motion Sickness Yes 03/10/25 15:14 HX of N/V After Surgery No 03/10/25 15:14 Non-Smoker Yes 03/10/25 15:14 Duration of Surgery greater Yes 03/10/25 15:14 than 60 minutes Number of Risk Factors 4 03/10/25 15:14 PONV Score Severe Risk 03/10/25 15:14 Height & Weight Height & Weight: Anesthesia: Height & Weight Height 5 ft 5 in 03/24/25 06:36 Weight: 102.5 kg 03/24/25 06:36 Body Mass Index (BMI) 37.5 03/24/25 06:36 Respiratory Assessment Respiratory Assessment - marketing administrative assistant: Respiratory Tract Infection Hx - marketing administrative assistant Hx Respiratory Tract Infection No 03/10/25 15:14 STOP Sleep Apnea STOP Sleep Apnea - marketing administrative assistant: STOP Sleep Apnea - marketing administrative assistant Hx Hypertension Yes: CONTROLLED WITH MED 03/10/25 15:14 Hx Sleep Apnea Yes 03/10/25 15:14 CPAP Yes 03/10/25 15:14 BIPAP No 03/10/25 15:14 Do you snore loudly (louder than talking or can be heard Do you often feel tired/ fatigued/ sleepy during daytime? Has anyone observed you stop breathing during sleep? STOP Results Positive 03/10/25 15:14 QUESTION #5 FULL TEXT : Do you snore loudly (louder than talking or can be heard through closed doors)? 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 Specify any problems Hx of Preganancy in last 3 No 03/10/25 15:14 Months Nurse Filling Out Transfusion DSCHRIBER 03/10/25 15:14 & Questions: Date: 03/10/25 03/10/25 15:14 Time: 15:18 03/10/25 15:14 Patient unable to answer at this time (ie. confused, unrespo /Reproduction History /Reproductive History - marketing administrative assistant: /Reproductive Hx- marketing administrative assistant Hx Now No 03/10/25 15:14 Gestational Age (in weeks): EDC: Hx Hx Para Hx Section SAB No 03/10/25 15:14 Active Medications Active Medications: Current Medications Generic Name Dose Route Start Last Admin Trade Name Freq PRN Reason Stop Dose Admin Acetaminophen 1,000 mg 03/24/25 07:30 03/24/25 06:46 Acetaminophen 500 Mg Tablet PO 03/24/25 07:31 1,000 mg PREOP ONE Administration Dexamethasone Sodium Phosphate 10 mg 03/24/25 07:30 Dexamethasone 10 Mg/Ml Vial IV 03/24/25 07:31 INTRAOP ONE Gabapentin 600 mg 03/24/25 07:30 03/24/25 06:46 Gabapentin 600 Mg Tablet PO 03/24/25 07:31 600 mg PREOP ONE Administration Lactated Ringer's 1,000 mls @ 999 mls/hr 03/24/25 07:30 03/24/25 06:18 IV 03/24/25 08:30 999 mls/hr .Q1H1M DANYELL Administration Tranexamic Acid 2,000 mg/ 120 mls @ 280 mls/hr 03/24/25 07:30 Sodium Chloride IV 03/24/25 07:55 INTRAOP ONE Lactated Ringer's 1,000 mls @ 125 mls/hr 03/24/25 07:30 IV 03/24/25 15:29 .Q8H DANYELL Cefazolin Sodium 2 gm/ Sodium 110 mls @ 200 mls/hr 03/24/25 07:30 Chloride IV 03/24/25 08:02 INTRAOP ONE Magnesium Sulfate 2 gm/ 104 mls @ 208 mls/hr 03/24/25 07:30 03/24/25 06:18 Dextrose IV 03/24/25 07:59 208 mls/hr PREOP ONE Administration Insulin Human Lispro 1 - 6 unit 03/24/25 07:30 Insulin Lispro 100 Unit/Ml Insuln.Pen SC Q4H PRN PRN BG>/= 180, SEE PROTOCOL Protocol Scopolamine HBr 1 patch 03/24/25 07:30 03/24/25 06:46 Scopolamine 1mg/72hr Patch TD 03/24/25 07:31 1 patch PREOP ONE Administration PFSH Medical History (Updated 03/10/25 @ 15:33 by Gloria Coleman) Diabetes Ambulates with cane Fatty liver Restless legs Syncope Dietary restriction Chronic constipation Gastric reflux History of pain when walking History of GI bleed History of pneumonia Fibromyalgia Rheumatoid arthritis Post-menopausal Wears glasses Depression Anemia Pulmonary embolism DVT (deep venous thrombosis) CPAP (continuous positive airway pressure) dependence Former smoker Shortness of breath on exertion Leg cramps History of edema History of stress test (~04/06/20) Hypoxia Right hip pain History of iron deficiency Fatigue Claustrophobia Mild cognitive impairment Peripheral vestibulopathy Encounter for screening for COVID-19 Cerebrovascular small vessel disease Cerebral convexity meningioma Neuropathy High cholesterol Glaucoma Cervical radiculitis HTN (hypertension) Renal calculus, bilateral Home Medications ?Medication ?Instructions ?Recorded ?Last Taken ?Type ferrous sulfate 325 mg (65 mg 325 mg PO BID SUPPLEMENT 02/11/14 03/23/25 History iron) tablet multivitamin with folic acid 400 1 tab PO DAILY SUPPLEMENT 02/11/14 03/23/25 History mcg tablet trazodone 50 mg tablet 100 mg PO QHS SLEEP 02/11/14 03/23/25 History Held on 04/27/23. Instructions: MD Ordered biotin 10,000 mcg capsule 10,000 mcg PO DAILY HAIR LOSS 05/30/21 03/23/25 History calcium 600 mg (as 1 cap PO BID SUPPLEMENT 05/30/21 03/23/25 History carbonate)-vitamin D3 12.5 mcg (500 unit) capsule (Calcium with Vit D3) tramadol 50 mg tablet 50 mg PO Q6H PRN Pain Score 6-10 01/25/23 Unknown Rx Held on 04/27/23. #25 tabs Instructions: MD Ordered hydroxychloroquine 200 mg tablet 200 mg PO BID OA 01/18/24 03/24/25 History gabapentin 300 mg capsule 300 mg PO BID PAIN 10/06/24 03/23/25 History lisinopril 20 1 tab PO QDAY BP 10/06/24 03/23/25 History mg-hydrochlorothiazide 12.5 mg tablet metformin 1,000 mg tablet 1,000 mg PO BID DIABETES 10/06/24 03/23/25 History warfarin 5 mg tablet (Jantoven) 10 mg PO SUTUWETHSA BLOOD THINNER 10/06/24 03/19/25 History duloxetine 30 mg capsule,delayed 30 mg PO QPM DEPRESSION #90 caps 01/29/25 03/23/25 Rx release duloxetine 60 mg capsule,delayed 60 mg PO QAM DEPRESSION #90 caps 01/29/25 03/24/25 Rx release (Cymbalta) meclizine 25 mg tablet 25 mg PO BID PRN dizziness #180 01/30/25 Unknown Rx tabs methotrexate sodium 2.5 mg tablet 20 mg PO SA OA 02/25/25 02/21/25 History CPAP - Continuous Positive Airway 03/10/25 Unknown History Pressure([facility] INFORMATIONAL USE ONLY) omeprazole 20 mg capsule,delayed 20 mg PO DAILY GERD 03/10/25 03/24/25 History release ropinirole 2 mg tablet 2 mg PO 1700 RLS 03/10/25 03/23/25 History ropinirole 2 mg tablet 2 mg PO QHS RLS 03/10/25 03/23/25 History tizanidine 4 mg tablet 8 mg PO QHS muscle spasticity/leg 03/10/25 03/23/25 History restlessness warfarin 4 mg tablet 8 mg PO MOFR BLOOD THINNER 03/10/25 03/19/25 History Allergy/AdvReac Type Severity Reaction Status Date / Time amoxicillin Allergy Mild rash Verified 03/24/25 06:17 atorvastatin AdvReac Mild myalgiias Verified 03/24/25 06:17 levofloxacin (From Levaquin) AdvReac Unknown Nausea Verified 03/24/25 06:17 Family History Mother Heart disease Hypertension Father Heart disease CVA (cerebral vascular accident) Brother Cancer Surgical History (Updated 03/10/25 @ 15:33 by Gloria Coleman) Hx of superior vena cava filter placement History of cystoscopy Status post biopsy of thyroid gland (~08/2019) History of colonoscopy (~2014) History of dilation and curettage History of carpal tunnel release of both wrists Status post panniculectomy History of [place]-en-Y gastric bypass History of umbilical hernia repair Social History household members: spouse housing: house Smoking Status: Former smoker Tobacco: How many years used: 40 Electronic Cigarette Use: not used how long ago did patient quit smoking: about a year and half ago second hand exposure: No alcohol intake: never substance use type: does not use what type of physical activity do you participate in: none do you feel safe at home: Yes Review of Systems (Anesthesia) ROS Narrative System reviewed and no additional complaints, except as documented.
--- NOTE | 2025-03-24 07:16 | PCM.HP.BLA ---
History and Physical Date of Admission: 03/24/25 [facility] [address] [place] [address] OFFICE VISIT Date of Service: 02/25/25 MR#: [id number] Acct: [id number] Name: ART BLUE Rep #: [id number] : 1955 Provider: Dr. Jose Ramon Terry DO Age/Sex: 69/F Location: [facility] [email or web address] Status: Signed Intake Vital Signs 11/21/2509:15 01/29/2510:48 02/25/2509:53 Height 5 ft 5 in 5 ft 5 in 5 ft 5 in Weight: 223 lb BMI 37.0 Intake Visit Reasons: RIGHT HIP Chief Complaint: Allergies amoxicillin Allergy (Mild, Verified 02/25/25 09:55) rashatorvastatin Adverse Reaction (Mild, Verified 02/25/25 09:55) myalgiiaslevofloxacin (From Levaquin) Adverse Reaction (Unknown, Verified 02/25/25 09:55) Nausea Medications ?Medication ?Instructions ?Recorded ?Confirmed ?Type ferrous sulfate 325 mg (65 mg 325 mg PO BID SUPPLEMENT 02/11/14 02/25/25 History iron) tablet multivitamin with folic acid 400 1 tab PO DAILY SUPPLEMENT 02/11/14 02/25/25 History mcg tablet trazodone 50 mg tablet 50 mg PO QHS SLEEP 02/11/14 02/25/25 History Held on 04/27/23. Instructions: Ordered biotin 10,000 mcg capsule 10,000 mcg PO DAILY HAIR LOSS 05/30/21 02/25/25 History buspirone 5 mg tablet 5 mg PO TID PRN anxiety 05/30/21 02/25/25 History calcium 600 mg (as 1 cap PO BID 05/30/21 02/25/25 History carbonate)-vitamin D3 12.5 mcg (500 unit) capsule (Calcium with Vit D3) tramadol 50 mg tablet 50 mg PO Q6H PRN Pain Score 6-10 01/25/23 02/25/25 Rx Held on 04/27/23. #25 tabs Instructions: Ordered hydroxychloroquine 200 mg tablet 200 mg PO BID 01/18/24 02/25/25 History loratadine 10 mg tablet 10 mg PO QDAY PRN sinus 08/01/24 02/25/25 Rx symptoms/ear pressure #90 tabs gabapentin 300 mg capsule 300 mg PO TID 10/06/24 02/25/25 History lisinopril 20 1 tab PO QDAY 10/06/24 02/25/25 History mg-hydrochlorothiazide 12.5 mg tablet metformin 1,000 mg tablet 1,000 mg PO BID 10/06/24 02/25/25 History warfarin 5 mg tablet (Jantoven) 10 mg PO DAILY 10/06/24 02/25/25 History cyclobenzaprine 10 mg tablet 10 mg PO TID PRN Muscle Spasm #20 01/12/25 02/25/25 Rx TABLETS duloxetine 30 mg capsule,delayed 30 mg PO QPM #90 caps 01/29/25 02/25/25 Rx release duloxetine 60 mg capsule,delayed 60 mg PO QAM #90 caps 01/29/25 02/25/25 Rx release (Cymbalta) meclizine 25 mg tablet 25 mg PO BID PRN dizziness #180 01/30/25 02/25/25 Rx tabs ropinirole 2 mg tablet 2 mg PO .COMPLEX #180 tabs 01/30/25 02/25/25 Rx tizanidine 4 mg tablet See Rx Instructions .Route 01/30/25 02/25/25 Rx .COMPLEX muscle spasticity/leg restlessness #180 tabs methotrexate sodium 2.5 mg tablet 2.5 mg PO 02/25/25 02/25/25 History Have you fallen in the past year?: Yes PFSH Medical History (Updated 02/25/25 @ 10:09 by Alyssa Tolentino) Hx pulmonary embolism Fibromyalgia Rheumatoid arthritis Contact with or exposure to other viral diseases Preop testing Post-menopausal Wears glasses Depression Anemia Pulmonary embolism DVT (deep venous thrombosis) History of ulceration CPAP (continuous positive airway pressure) dependence Sleep apnea Former smoker Shortness of breath on exertion Leg cramps History of edema History of stress test (~04/06/20) Hypoxia Pneumonia Right hip pain History of iron deficiency Fatigue Claustrophobia Mild cognitive impairment Peripheral vestibulopathy Encounter for screening for COVID-19 Cerebrovascular small vessel disease Cerebral convexity meningioma Neuropathy History of pneumonia History of kidney stones High cholesterol Glaucoma History of UTI Cervical radiculitis History of DVT (deep vein thrombosis) Diabetes Anxiety and depression HTN (hypertension) Gastric ulcer GERD (gastroesophageal reflux disease) Renal calculus, bilateral Surgical History Status post biopsy of thyroid gland (~08/2019) History of colonoscopy (~2014) History of dilation and curettage History of carpal tunnel release of both wrists Status post panniculectomy History of [place]-en-Y gastric bypass History of umbilical hernia repair Family History Mother Heart disease HypertensionFather Heart disease CVA (cerebral vascular accident)Brother Cancer Social History household members: spouse housing: house Smoking Status: Former smoker Tobacco: How many years used: 40 Electronic Cigarette Use: not used how long ago did patient quit smoking: about a year and half ago second hand exposure: No alcohol intake: never substance use type: does not use what type of physical activity do you participate in: none do you feel safe at home: Yes HPI RIGHT HIP Details: This documentation accurately reflects the service provided and the decisions made by me, Dr. Jose Ramon Terry, DO 02/25/25 0812. Part of today?s visit was documented by Zuri TYLER, acting as scribe. ART BLUE is a 69 year old F here today for continue right hip pain particularly in her groin. She would like to talk about surgery as she is ready to proceed with a hip replacement. She did do the aquatic therapy and has started going swimming twice a week doing the exercises they taught her in therapy. She does have a hx of DVT and PE. Her PE was in 2007 but she is unable to recall when her last DVT was. Her last A1C was done 1 week ago and was 6.5 according to patient but I do not have these results. She does take methotrexate Plaquenil tramadol tizanidine gabapentin cyclobenzaprine 11/21/2024 visit: here today for continued right hip pain. Her pain now is in the groin and in her glute. Last visit it was more in the trochanteric bursa she is not having much lateral sided pain now. she Dr. Johnson on 11/07/24 and she states that he told her she should get her hip taken care of first before he will do anything with her back. She would like to talk about doing another injection in the hip because she is going on a vacation in about a week. She would like to also talk about a hip replacement. It is affecting her quality of life she knows that she is overweight and in poor physical condition. Plan:Patient is here today for continued right hip pain. I obtained and reviewed xrays today and her hip arthrosis has progressed , does show severe arthritis of the right hip which has progressed since her last xray. Her treatment options are do nothing, weight loss, physical therapy, or a DUNCAN. She is unable to take NSAIDs secondary to her taking Coumadin. Risks, benefits and alternatives of surgery reviewed including but not limited to bleeding, infection, nerve, foot drop, artery and/or tissue damage, fracture, VTE, leg length discrepancy, dislocation, need for hip precautions, continued pain and expected post-operative course. She does have a history of a DVT many years ago in her right leg as she also does have a history of a PE. She will start her Coumadin right after surgery and will also likely be on Lovenox bridge until her INR up, however we will coordinate this with her primary care physician her INR will need to be less than 1.5 to proceed with surgery. She should avoid getting any injection into the hip for 3 months before surgery. Patient requested and I will send an order for aquatic therapy to [facility] for her to start after her vacation for her right hip . She will call our office after therapy to let us know when she would like to proceed with the hip replacement. 01/18/2024 visit:68 year old F here today for follow-up on her right hip last seen December 2022 at which time we recommended physical therapy for her hip osteoarthritis. Patient has well-known lumbar pathology for which she sees Dr. Anna she does have a L5-S1 disc herniation as well as significant lumbar stenosis with associated neurogenic claudication she was recently sent to physical therapy for this by spine surgery. Patient is here for right hip pain for a few months, She states that she has been doing aqua therapy for her low back and feels like that has been flaring up her hip. She has pain over her lateral hip and groin. She does have low back pain that she sees Dr. Johnson for. She denies radiating pain. She does have some numbness in her foot and ankle but notes that she has neuropathy. She states that her lateral hip is tender to touch. She takes Tylenol fir the pain along with she does have some tramadol but it doesn't seem to relieve her pain. She states that the only thing that stock cutter her relief is rest. She denies any previous injury. She did do PT for the hip last year which did help but discontinued it due to health issues. She has had an injection many years ago with Dr. Johnson. She also c/o left calf pain/claudication with walking. In the calf she denies redness or tenderness to the calf. She has pain in the calf whenever she is up and walking. Plan: X-rays were reviewed. There is no obvious fracture, dislocation, or lucency noted. Spoke with patient that her hip arthritis hasn't progressed since her last x-ray last year. Spoke with patient that her groin pain is coming from the arthritis in her hip and the tenderness on the laterl hip is from the bursa in the hip which can be relieved with stretching/physical therapy and injections and weight loss. Her treatment options are do nothing, stretching the IT band, weight loss, injections, or a hip replacement. Patient wished to proceed and did receive a right hip trochanteric bursal injection today which she tolerated well she also requests referral to pain management for her left lower extremity claudication and known lumbar stenosis. Ortho Exam General General: Yes no acute distress Neurologic: Yes alert and Yes oriented x3 Psychologic: Yes reasonable and appropriate Right Hip Skin: No Ecchymosis, No soft tissue swelling and No Erythema internal rotation @90 degree flexion: 0 degrees external rotation @90 degree extension: 25 degrees Special Tests: No iliopsoas snap, No IT band snap and Yes TTP [place] HIP: She does have groin pain with hip range of motion She is morbidly obese. 5-5 hip abduction and adduction without pain against resistance Constitutional: Well-developed; well-nourished; in no acute distress Eyes: No jaundice ENT: Nares patent; no obvious deformity Cardiovascular: No cyanosis; clubbing; or edema Lymphatic: No adenopathy in area of examination Skin: No rashes or lesions in the area of examination and intact Neurologic: Alert and oriented x 3 Psychiatric: Mood and affect appropriate Supplemental Info 11/21/2024 x-ray right hip: Severe joint space narrowing superiorly subchondral sclerosis advanced hip arthrosis 11/07/2024 x-ray lumbar spine: L2-L3 moderate to space narrowing with degenerative endplate changes, L3-L4 moderate disc space narrowing with degenerative endplate changes. Spondylosis and discogenic change of L5-S1. 01/18/2024 x-ray right hip: There is joint space narrowing superior medial there is osteophyte formation 12/25/2022 x-ray right hip: there is mild superior joint space narrowing and spurring 06/08/2022 x-ray lumbar spine: Scoliosis and degenerative changes with probable multilevel spinal stenosis This may be further assessed with CT or MRI if indicated , degenerative disc disease most severe L5-S1 multilevel facet arthrosis. 06/08/2022 x-ray right hip: there is mild superior joint space narrowing and spurring, Coding Level of Care Code Off vis,est,level 4 Diagnoses Primary osteoarthritis of right hip M16.11 Class 2 obesity without serious comorbidity with body mass index (BMI) of 39.0 to 39.9 in adult, unspecified obesity type E66.9; Z68.39 Obesity type: unspecified obesity type Obesity classification: adult class 2 (BMI 35 - 39.9) Serious obesity comorbidity presence: without serious comorbidity Body mass index: BMI 39.0-39.9 Polyneuropathy G62.9 Spinal stenosis of lumbar region with neurogenic claudication M48.062 Assessment and Plan Assessment and Plan (1) Primary osteoarthritis of right hip: Status: Acute (2) Obesity: Status: Acute Qualifiers: Obesity type: unspecified obesity type Obesity classification: adult class 2 (BMI 35 - 39.9) Serious obesity comorbidity presence: without serious comorbidity Body mass index: BMI 39.0-39.9 Qualified Code(s): E66.9 - Obesity, unspecified; Z68.39 - Body mass index [BMI] 39.0-39.9, adult (3) Polyneuropathy: Status: Chronic (4) Spinal stenosis of lumbar region with neurogenic claudication: Status: Acute Orders: Orders Venous Duplex US, Unilateral Today Z86.711 - Personal history of pulmonary embolism, Z86.718 - Personal history of other venous thrombosis and embolism Plan Patient is here today for continued right hip pain. Patient would like to proceed with a hip replacement. Patient is morbidly obese diabetic on narcotics history of pulmonary embolism DVT, her physically handicapped and cannot help her postoperatively. She needs to be an admission we will also request inpatient rehab for her. She has had DVT and pulmonary embolism after surgeries in the past, but is not sure if she ever had a Doppler ultrasound to confirm that her DVT had resolved. I would like to get bilateral lower extremity Doppler ultrasounds to make sure there is no current DVT. In addition she will need to have her Coumadin managed by her primary care physician to have her INR less than 1.5 the day of surgery I also need medical clearance and his recommendations on whether or not she should be bridged with Lovenox postoperatively. Her last A1c I have on record was over 7 however she states she had 1 recently that was 6.5 we will need to get copies of this. Risks, benefits and alternatives of surgery reviewed including but not limited to bleeding, infection, nerve, foot drop, artery and/or tissue damage, fracture, VTE, leg length discrepancy, dislocation, need for hip precautions, continued pain and expected post-operative course. I spoke with patient that since she does take Tramadol she will have a tolerance to narcotics so it might be harder for her to control her pain after surgery. She does also take methotrexate, we discussed the literature does recommend holding this medication as long as less than 20 mg/week however we do know that it does lower the immune system and she wishes to hold it pre and postoperatively to minimize her risk of perioperative infection. She should avoid getting any injection around the hip for 3 months before surgery. Tentative surgery date March 24, 2025 admission with plans for rehab. Follow up for 2 weeks post-op or sooner if pain, swelling, numbness or associated symptoms, or concerns develop. All questions answered. Patient in agreement of plan. Clinical Quality Measures Falls Risk Screening/Assistive Devices Have you fallen in the past year?: Yes 02/25/25 1039 <Electronically signed by Jose Ramon Terry DO> Date Jose Ramon Terry DO I have examined the patient and the H&P has been reviewed. There are no clinical changes since date of exam.
--- NOTE | 2025-03-24 07:30 | FEM._PTH ---
PATIENT: ART BLUE LOC: MS3 U#:[id number] AGE/SX: 69/F ROOM: [facility] [place] RE03/24/[address]: Dr. Jose Ramon Terry DO : 1955 BED: 1 DIS: 03/27/2025 SPEC #: [id number] RECD: 03/24/25 11:00 STATUS: WINTER MORTONHi #: [id number] CLAUDIO: 03/24/25 07:[address]: Jose Ramon Terry DEPT: SURGICAL PATHOLOGY RECD BY: Mohsen Knott ENTERED: 03/24/25 13:16 SP TYPE: FEM HEAD OTHR DR: MD Dr. Neymar Anderson, DO Tissues: A - Hip, NOS Procedures: Decalcification bone/plaque Surgery Specimen Level III HEADER OPERATION: ERAS, right total hip replacement robotic arm assist PRE-OP DIAGNOSIS: Primary osteoarthritis of right hip TISSUE SUBMITTED: A- Right hip bone and tissue MICROSCOPIC DIAGNOSIS A. Femur, head, right, total hip arthroplasty: - Articular bone with osteoarthritic reactive and degenerative changes. - Trilineage hematopoiesis. MICROSCOPIC DESCRIPTION Slides are reviewed. GROSS DESCRIPTION A. Received in formalin labeled with the patient's name and date of . Designated as right hip bone and tissue is a 4.5 x 4.4 x 3.9 cm slightly irregular ovoid femoral head with attached femoral neck, 2.2 cm in length by 3.1 cm in diameter. The articular cartilage is rodriguez-pink and granular with eburnation and moderate peripheral osteophyte formation. Sectioning reveals pink-red trabeculated medullary bone with a 3.6 x 2.7 cm pale wedge-shaped area (suspicious for necrosis). There is a moderate amount of fragmented tissue and bone within the container, 8.0 x 8.0 x 1.2 cm in aggregate. Motel Keeper sections are submitted in 2 cassettes, following decalcification as follows: A1: Femoral head with pale wedge-shaped area and overlying eburnationA2: Femoral neck femoral neck with peripheral osteophyte formation VA 03/24/2025 CPT:82072,06877
[2025-03-24] MEDS: Cefazolin 1 GM/5 ML Vial 2 GM IV (07:34)
[2025-03-24] MEDS: Midazolam 2 MG/2 ML Syringe IV (07:40)
[2025-03-24] MEDS: TRANEXAMIC ACID 1,000 MG/10 ML ML 2000 MG IV (07:44)
[2025-03-24] MEDS: PROPOFOL 21.58 MG IV (08:08)
--- NOTE | 2025-03-24 10:18 | PCM.POST.ANE ---
Anesthesia: Postop Eval I Current Vital Signs Temperature: 97.1 F Pulse Rate: 95 Blood Pressure: 139/82 Respiratory Rate: 18 Pulse Ox: 98 Assessment Airway patent: Yes Spontaneous unlabored respirations: Yes nausea: No Vomiting: No Anesthesia Complication: No Fluid Hydration Crystalloid volume administer (ml): 1,600 Total IV fluid infused: 1,600 Progress Note Anesthesia document: Postop Eval 1 completed: Yes
--- NOTE | 2025-03-24 10:30 | PCM.OPRPT ---
Operative Report (Standard) Operative Information Date of Procedure: 03/24/25 Pre-Operative Diagnosis: Right hip DJD Post-Operative Diagnosis: Same Surgery/Procedure Performed: Right total hip arthroplasty dressmaker or tailor: Yes Data Modeling Architect: Jose L Lopez Tasks completed by nursing home assistant administrator: Opening & closing and Implanting device Type of Anesthesia: Spinal RN Documented Start/Stop Times: Operation Date: 03/24/25 07:30 Case Time Into Pre-Op 03/24/25 05:51 Out of Pre-Op 03/24/25 07:25 Anesthesia Start 03/24/25 07:35 Into Room 03/24/25 07:35 Procedure Start 03/24/25 08:15 Procedure End 03/24/25 10:05 Anesthesia End 03/24/25 10:13 Out of Room 03/24/25 10:13 Procedure Start Time: 08:15 Procedure Stop Time: 10:05 Select all DRAINS/GRAFTS/IMPLANTS that apply: Implanted device Implanted device details: Panora Estimated Blood Loss: 125 Specimen collected: Yes Description of specimen(s) removed: Femoral head Description of surgery: Preoperative diagnosis: Right hip DJD Postoperative diagnosis: Same Procedure: CT-guided Makoplasty assisted right total hip arthroplasty Implants: Panora Accolade II stem size [5], 132 degree neck angle -4 head neck length 50 mm Trident II acetabular shell with 40 mm cancellous screw 32mm [ceramic] head, 10 degree Trident X3 polyethylene insert. Anesthesia: [Spinal] EBL: 125 cc Complications: None Condition: Stable to PACU [Crushing Mill Operator Jose L Lopez. My physician commercial loan assistant was a vital part of this case. He was important in appropriate retraction during the case, and protection of soft tissues during procedure. His intimate knowledge of the case and my steps aided in safe and expedient completion of the procedure as well as appropriate position of the extremity during the case. He was also vital in assisting with closure under my direct supervision.] Indication for procedure: This is a 69-year-old female who has had long-standing arthrosis of the hip who has failed conservative treatment and wished to undergo total hip arthroplasty. We did discuss operative versus nonoperative intervention including risks of bleeding, infection , nerve artery tissue damage, need for further surgery, fracture, leg length discrepancy dislocation blood clot and need for postoperative physical therapy and postoperative expectations. An informed consent was signed. Procedure: Patient was met in the preoperative holding area once again the operative extremity was identified by both patient and physician and was marked. Patient was met by anesthesia . Anesthesia was started. patient was then positioned in the lateral decubitus position on a well-padded pegboard with an axillary roll. All bony prominences were checked and padded. The patient was prepped and draped in the usual sterile fashion. A timeout was called to ensure the proper patient procedure and extremity were being contemplated. Anatomic landmarks were palpated and marked for a standard posterior lateral approach. Prior to this the ASIS was palpated and 3 fingerbreadths proximal to this 3 pins were placed at a 45 degree angle into the iliac crest with good purchase, stab incisions were made with a 15 blade into the skin prior to placement. The Makoplasty array was then secured. A 10 blade scalpel was used to make a posterior incision through the skin and subcutaneous tissue. retractors were used and electrocautery was used to maintain meticulous hemostasis and dissect full-thickness flaps until the gluteal fascia was reached. The gluteal fascia was incised in line with the gluteal fibers. The bursal tissue was then freed from the underside and a Charnley retractor was placed. The femoral trochanteric checkpoint was placed and leg length was assessed using the trochanteric checkpoint and an EKG lead that was placed on the knee prior to prepping the leg .the fat pad was then elevated off of the external rotators with electrocautery and the external rotators were dissected off of the greater trochanter including the piriformis and were tagged with #1 Ethibond for later repair. The joint capsule opened with posterior trapdoor technique. The hip was surgically dislocated. The measurement on the preoperative CT from the top of the lesser trochanter to the femoral neck cut was marked Hohmann was placed around the lesser trochanter. A neck cutting guide was used to chino the neck with a Bovie and an oscillating saw was used complete the femoral neck cut. The femoral head was then removed and sized. We then turned our attention to the acetabulum. A Bovie was used to make a perforation in the anterior joint capsule and a [place] retractor was placed this was repeated in the 6 o'clock position and a wide johnny was placed there. With a long handled knife the labral and pulvinar tissue were removed. We then registered the acetabulum with the pointing array and confirmed our landmarks. Once the socket was thoroughly prepared and labral tissue and pulvinar was removed we single reamed with the robotic arm. We then used the robotic arm to position the acetabular implant and impacted it into place under robotic guidance. [We then proceeded to place a posterior superior screw by drilling first measuring and inserting the screw]. We then inserted a trial liner. And turned our attention back to the femur at this point a femoral elevator was used. As well as a pointed wide Hohmann around the lesser trochanter and a Hohmann to help retract the gluteus medius. A box chisel was used to remove excess lateral neck followed by a canal finder and a lateralizing reamer. This was followed by sequential broaches. Attention was made of the version within the canal based on preoperative templating. Once the final broach was seated we then trialed reduced the hip it was determined that a 132 degree neck angle with a -4 neck length was the appropriate size. We then checked stability with shuck testing as well as flexion and internal rotation. then proceeded with hip extension and checked leg lengths at the knees and heels as well as with the trochanteric checkpoint and knee EKG lead. At this point trials were removed. A liner was inserted to the cup. The femoral stem was inserted. We re-trialed and then proceeded to impact the femoral head onto the López taper. We then surgically reduce the hip check stability again and leg lengths and were satisfied. Betadine rinse was allowed to sit for 5 minutes while everyone changed their gloves. Thorough irrigation was performed. Followed by closure of the external rotators with #2 FiberWire followed by closure of gluteal fascia with #1 Ethibond. 0 Vicryl fat stitches and 2-0 Vicryl subcutaneous stitches and zeina in the skin. [place] were placed in the skin pin sites over the iliac crest and dressed with a Mepilex dressing. The main incision was dressed with a Mepilex ag dressing and an abduction pillow was placed. Patient tolerated the procedure well there was no intraoperative complications all counts were correct and the patient was brought back to the PACU in stable condition Surgical Findings: DJD hip Complications Complications: No
--- NOTE | 2025-03-24 10:34 | RAD_ITS ---
EXAM: XR Right Hip With Pelvis When Performed, 1 View CLINICAL INDICATION: POST OP TECHNIQUE: Frontal view of the right hip with pelvis when performed. COMPARISON: No relevant prior studies available. FINDINGS: BONES/JOINTS: Total right hip replacement. Intact hardware. Anatomic position. No acute fracture. No dislocation. SOFT TISSUES: Soft tissue swelling and emphysema. RAD/Hip Min 2 Views (Portable) IMPRESSION: Postoperative changes as above. Reading Location: [facility]
[2025-03-24] MEDS: LR 1,000 ML - 125 ML/HR POSTOP (NO BOLUS) IV (11:48)
[2025-03-24] MEDS: Cefazolin 2 GM in 0.9% Normal Saline (100mL Bag) 100 ML IV ×2 (14:27→22:26)
[2025-03-24] MEDS: 0.9% Saline Lock 10 ML Syringe IV ×3 (14:30→22:34)
--- NOTE | 2025-03-24 14:36 | POSTOPAN2_ITS ---
Anesthesia Postop Eval I Sum Postop Eval Completion status Anesthesia document: Postop Eval 1 completed: Yes Anesthesia Postop Eval I Summary Anesthesia Postop Eval I Summary: Anesthesia Postop Eval I: Assessment Summary Airway patent Yes 03/24/25 10:18 [email or web address] Spontaneous unlabored Yes 03/24/25 10:18 [email or web address] respirations Mental status nausea No 03/24/25 10:18 [email or web address] Vomiting No 03/24/25 10:18 [email or web address] Anesthesia Postop Eval I: Fluid Summary Crystalloid volume administer 1,600 03/24/25 10:18 [email or web address] (ml) Colloids volume administered ( ml) Blood Product volume administered (ml) Total IV fluid infused 1,600 03/24/25 10:18 [email or web address] Anesthesia Postop Eval I: Summary Notes Anesthesia Complication No 03/24/25 10:18 [email or web address] Anesthesia Complication Comment: Post-operative progress note Anesthesia: Postop Eval II Evaluation Mental status: Awake Pain Level: 4 nausea: No Vomiting: No
--- NOTE | 2025-03-24 14:36 | PCM.POSTANE2 ---
Anesthesia Postop Eval I Sum Postop Eval Completion status Anesthesia document: Postop Eval 1 completed: Yes Anesthesia Postop Eval I Summary Anesthesia Postop Eval I Summary: Anesthesia Postop Eval I: Assessment Summary Airway patent Yes 03/24/25 10:18 FAMILY MEMBER [email or web address] Spontaneous unlabored Yes 03/24/25 10:18 FAMILY MEMBER [email or web address] respirations Mental status nausea No 03/24/25 10:18 FAMILY MEMBER [email or web address] Vomiting No 03/24/25 10:18 FAMILY MEMBER [email or web address] Anesthesia Postop Eval I: Fluid Summary Crystalloid volume administer 1,600 03/24/25 10:18 FAMILY MEMBER [email or web address] (ml) Colloids volume administered ( ml) Blood Product volume administered (ml) Total IV fluid infused 1,600 03/24/25 10:18 FAMILY MEMBER [email or web address] Anesthesia Postop Eval I: Summary Notes Anesthesia Complication No 03/24/25 10:18 FAMILY MEMBER [email or web address] Anesthesia Complication Comment: Post-operative progress note Anesthesia: Postop Eval II Evaluation Mental status: Awake Pain Level: 4 nausea: No Vomiting: No
[2025-03-24] MEDS: Warfarin (PBKC) 5 MG Tablet 10 MG PO (17:52)
[2025-03-24] MEDS: Ensure Surgery 237 ML LIQUID PO (17:52)
[2025-03-24] MEDS: Calcium Carb/Vitamin D 1 TABLET Tablet PO (17:53)
--- NOTE | 2025-03-24 18:26 | PN.HOSP_ITS ---
Subjective Subjective Patient was seen and examined today at the request of orthopedic surgery, she underwent a right hip replacement today due to degenerative joint disease of the right hip. 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 Objective Data Objective Data Vital Signs: Vital Signs Temp Pulse Resp BP Pulse Ox O2 Del Method O2 Flow Rate 99 F 82 18 143/53 H 96 Room Air 2 03/24/25 16:32 03/24/25 16:32 03/24/25 16:32 03/24/25 16:32 03/24/25 16:32 03/24/25 16:32 03/24/25 15:16 Oxygen Flow Rate (L/min) 2 Oxygen Delivery Method Room Air Weight: 102.5 kg Body Mass Index (BMI) 37.5 Intake & Output: Intake and Output for Last 24 Hours 03/22/25 03/23/25 03/24/25 23:59 23:59 23:59 Intake Total 1764 / 1764 Output Total 150 / 150 Balance 1614 / 1614 Lab / Micro Data Labs: Laboratory Results - last 24 hr 03/24/25 06:07: POC PT 16.0 H, INR 1.4 03/24/25 06:22: PT 12.9, INR 1.0 03/24/25 12:56: POC Glucose 196 H 03/24/25 18:01: POC Glucose 347 H Micro: Microbiology 03/16/25 08:07 Swab (Method) Nasal Screen MRSA/MSSA - Final Radiography Diagnostic Testing: Radiology Impression Hip X-Ray 03/24/25 10:34 IMPRESSION: Postoperative changes as above. Reading Location: [facility] Physical Exam Const alert, oriented x3 and no apparent distress General Appearance: cooperative, well kempt and well developed Orientation / Consciousness: awake, oriented to person, oriented to place and oriented to time HEENT normocephalic, head/scalp atraumatic and moist oral mucous membranes Eyes PERRL, EOMs intact bilaterally and conjunctivae normal Neck supple, no JVD, thyroid normal and no carotid bruits General: trachea midline Resp normal respiratory effort, no retractions, no use of accessory muscles and clear to auscultation bilaterally Auscultation: Negative for rales, rhonchi or wheezes Cardio regular rate, regular rhythm, S1 normal heart sound, S2 normal heart sound, no murmurs, no rub and no gallops GI normal to inspection, nondistended, normoactive bowel sounds, soft to palpation, non-tender and non-distended Extremity no clubbing, cyanosis or edema Skin no rashes or lesions noted General Skin Exam: no breakdown Neuro oriented x3, CN's II-XII intact bilaterally, moves all extremities, no focal motor deficits and no sensory deficits noted Sensorium / Orientation: awake and alert Speech: speech normal Psych affect normal Assessment & Plan Assessment/Plan (1) COPD (chronic obstructive pulmonary disease): QUALIFIERS: COPD type: unspecified COPD Qualified Code(s): J44.9 - Chronic obstructive pulmonary disease, unspecified PLAN: Plan 1. 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 Total clinical time spent by myself addressing the patient's medical issues, reviewing all of her data, and collaborating with patient's care team: 35-minute Charges/Coding Visit Charges Inpatient E&M: 43610 Subs Hosp L2
[2025-03-24] MEDS: Senna/Docusate Sodium 1 Tablet 2 TABLET PO (22:29)
[2025-03-25 01:15] VITALS: BP 129/60; PULSE 67; RESP 16; TEMP 36.7; O2SAT 93
[2025-03-25 06:20] VITALS: BP 157/69; PULSE 79; RESP 18; TEMP 36.3; O2SAT 95
[2025-03-25] MEDS: Cefazolin 2 GM in 0.9% Normal Saline (100mL Bag) 100 ML IV (06:24)
[2025-03-25 07:29] LABS: Hematocrit 32.7 % (37-47); Hemoglobin 10.9 g/dL (12.0-15.0); Immature Granulocytes Count 0.070 X10^3/uL (0.0-0.0); Mean Corp Hgb Conc 33.3 g/dL (32-36); Mean Corpuscular Volume 92.1 fL (81-99); Mean Platelet Vol. 10.0 fl (6.2-12.0); NRBC Flagged by Analyzer 0 % (0-5); Platelet Count 297 K/mm3 (150-450); RBC Distribution Width CV 13.4 % (11.6-14.6); RBC Distribution Width SD 46.1 fl (35.1-43.9); Red Blood Count 3.55 M/mm3 (4.2-5.4); White Blood Count 11.5 K/mm3 (4.4-11.0)
[2025-03-25 08:35] LABS: Anion Gap 11 (5-15); BUN 20 mg/dL (4-19); BUN/Creat Ratio 28.1 RATIO (10-20); Calcium,Total 8.6 mg/dL (7.6-11.0); Carbon Dioxide 27.0 mmol/L (21.0-32.0); Chloride 96 mmol/L (98-108); Estimated Creatinine Clearance 79.90 ml/min (50-250); Glucose 247 mg/dL (70-99); Potassium 4.1 mmol/L (3.3-5.1)
[2025-03-25 09:15] VITALS: O2SAT 97
--- NOTE | 2025-03-25 10:15 | CASEMGMT ---
RN?CM?ASSESSMENT ? RN?CM?to room to meet with patient for initial transition planning/care coordination?assessment.?RN?CM?introduced self and role at [facility].? Pt voices understanding and consents to?assessment?at this time.? Pt sitting up in chair in room in no distress at this time.? in room visiting. Pt is A/O at this time and answers all questions appropriately.?? Care providers, pharmacy, and demographics verified/updated at this time. ? Strata: 2 PCP: Dr Zepeda Specialists: Dr Rasmussen-neuro, Dr Pereyra-pulm, Dr Terry-ortho, Dr Yip-3d technologist, Dr Oconnor-[facility] Preferred [facility]acy: [facility] Insurance: [facility] Prescription Benefit:?Yes, [employer] LNOK: , [place]ym[place] Living Arrangements: Lives w/ in one-story home w/2 steps to enter. Pt mostly able to bath/dress self-- does assist as needed and w/shoes & socks. Pt manages her own medications and her husbands also. does most IADL's. Pt states tries to help w/some laundry and a few dishes. Transportation:?Pt & both drive. DME: States has the following DME:?rollator, raised toilet seat, shower chair, cane, rollator, CPAP, nebulizer, glucometer w/sufficient supplies. Pt states she does not check her BS's regularly, Just when I feel weird. HHC/SNF: No hx of SNF or HHC. Pt has went to OP therapy @ [facility] and [facility] in the past. Discussed discharge planning. Pt states she feels she needs to go somewhere for therapy before returning home. She states her 1st choices are either [facility] TCU or [facility], then [facility] would be 2nd preference, and [facility] 3rd preference. She declines wanting list of SNF options. MS3 RN ROSALIND, Linda, made aware. Pt voices no further concerns/needs at this time.? Advised pt to ask for?CM?if any further questions/concerns/needs arise.? Voices understanding. ? PLAN:??RU or SNF. ? DGiauque BSN?RN?CM ?
[2025-03-25 10:28] VITALS: BP 143/54; PULSE 81; RESP 18; TEMP 37.2; O2SAT 92
[2025-03-25] MEDS: Ensure Surgery 237 ML LIQUID PO (10:33)
[2025-03-25] MEDS: Calcium Carb/Vitamin D 1 TABLET Tablet PO ×2 (10:35→16:58)
[2025-03-25] MEDS: Senna/Docusate Sodium 1 Tablet 2 TABLET PO ×2 (10:35→22:15)
[2025-03-25 11:26] LABS: Prothrombin Time (Protime)PT. 15.1 SECONDS (11.7-14.9)
--- NOTE | 2025-03-25 13:00 | PN.ORTHO_ITS ---
Subjective Subjective Seen and examined. Complaint of pain. Denies fevers chills nausea vomiting shortness of breath or chest pain she is sitting in the chair eating and comfortable family member at bedside. Objective Data Objective Data Vital Signs: Vital Signs Temp Pulse Resp BP Pulse Ox O2 Del Method O2 Flow Rate 99 F 81 18 143/54 H 92 Room Air 2 03/25/25 10:03/25/25 10:03/25/25 10:03/25/25 10:03/25/25 10:03/25/25 10:03/24/25 15:16 Oxygen Flow Rate (L/min) 2 Oxygen Delivery Method Room Air Weight: 225 lb 15.581 oz Body Mass Index (BMI) 37.5 Intake & Output: Intake and Output for Last 24 Hours 03/23/25 03/24/25 03/25/25 23:59 23:59 23:59 Intake Total 2764 / 2964 1070 / 1070 Output Total 150 / 150 Balance 2614 / 2814 1070 / 1070 Lab / Micro Data 03/25/25 06:39 03/25/25 06:39 Labs: Laboratory Results - last 24 hr 03/24/25 12:56: POC Glucose 196 H 03/24/25 18:01: POC Glucose 347 H 03/24/25 22:14: POC Glucose 250 H 03/25/25 06:23: POC Glucose 236 H 03/25/25 06:39: WBC 11.5 H, RBC 3.55 L, Hgb 10.9 L, Hct 32.7 L, MCV 92.1, MCH 30.7, MCHC 33.3, RDW Std Deviation 46.1 H, RDW Coeff of Les 13.4, Plt Count 297, MPV 10.0, Immature Gran % (Auto) 0.600, Neut % (Auto) 78.4 H, Lymph % (Auto) 11.9 L, [place] % (Auto) 8.5, Eos % (Auto) 0.3, Baso % (Auto) 0.3, Absolute Neuts (auto) 9.0 H, Absolute Lymphs (auto) 1.37, Nucleated RBC % 0, Sodium 134, Potassium 4.1, Chloride 96 L, Carbon Dioxide 27.0, Anion Gap 11, BUN 20 H, C reatinine 0.69 L, Estim Creat Clear Calc 79.90, Est GFR (MDRD) Non-Af 94, B UN/Creatinine Ratio 28.1 H, Glucose 247 H, Calcium 8.6 03/25/25 11:00: PT 15.1 H, INR 1.2 03/25/25 11:09: POC Glucose 352 H Micro: Microbiology 03/16/25 08:07 Swab (Method) Nasal Screen MRSA/MSSA - Final Physical Exam Const alert, oriented x3 and no apparent distress General Appearance: cooperative Extremity normal capillary refill Extremity Narrative: Right hip dressing clean dry intact compartment soft neurovasc intact right lower extremity EHL tibialis anterior gastrocsoleus intact sensation light touch palpable pedal pulses Assessment & Plan Assessment/Plan (1) S/P total right hip arthroplasty: PLAN: Plan Postop day #1 right total hip arthroplasty PT OT weightbearing as tolerated with hip precautions Pain control oxycodone and Tylenol DVT prophylaxis Coumadin and Lovenox until INR therapeutic then DC Lovenox DC planning rehab versus TCU when bed available Dressing to be undisturbed for 7 days postop then remove prior to for shower and clean daily with antibacterial soap and warm water daily after dressing is removed with reapplication of dry dressing Follow-up in the office 2 weeks postop for wound check and staple removal if still in transitional care or rehab at the hospital I can see her there if notified.
[2025-03-25 16:32] VITALS: BP 123/58; PULSE 89; RESP 16; TEMP 37.4; O2SAT 97
[2025-03-25] MEDS: Warfarin (PBKC) 5 MG Tablet 10 MG PO (16:57)
--- NOTE | 2025-03-25 17:39 | PN.HOSP_ITS ---
Subjective Subjective Patient was seen and examined today, she has no specific complaints to this examiner. Objective Data Objective Data Vital Signs: Vital Signs Temp Pulse Resp BP Pulse Ox O2 Del Method O2 Flow Rate 99.4 F H 89 16 123/58 H 97 Nasal Cannula 2 03/25/25 16:32 03/25/25 16:32 03/25/25 16:32 03/25/25 16:32 03/25/25 16:32 03/25/25 16:32 03/25/25 16:32 Oxygen Flow Rate (L/min) 2 Oxygen Delivery Method Nasal Cannula Weight: 102.5 kg Body Mass Index (BMI) 37.5 Intake & Output: Intake and Output for Last 24 Hours 03/23/25 03/24/25 03/25/25 23:59 23:59 23:59 Intake Total 2764 / 2964 1070 / 1070 Output Total 150 / 150 Balance 2614 / 2814 1070 / 1070 Lab / Micro Data 03/25/25 06:39 03/25/25 06:39 Labs: Laboratory Results - last 24 hr 03/24/25 18:01: POC Glucose 347 H 03/24/25 22:14: POC Glucose 250 H 03/25/25 06:23: POC Glucose 236 H 03/25/25 06:39: WBC 11.5 H, RBC 3.55 L, Hgb 10.9 L, Hct 32.7 L, MCV 92.1, MCH 30.7, MCHC 33.3, RDW Std Deviation 46.1 H, RDW Coeff of Les 13.4, Plt Count 297, MPV 10.0, Immature Gran % (Auto) 0.600, Neut % (Auto) 78.4 H, Lymph % (Auto) 11.9 L, [place] % (Auto) 8.5, Eos % (Auto) 0.3, Baso % (Auto) 0.3, Absolute Neuts (auto) 9.0 H, Absolute Lymphs (auto) 1.37, Nucleated RBC % 0, Sodium 134, Potassium 4.1, Chloride 96 L, Carbon Dioxide 27.0, Anion Gap 11, BUN 20 H, C reatinine 0.69 L, Estim Creat Clear Calc 79.90, Est GFR (MDRD) Non-Af 94, B UN/Creatinine Ratio 28.1 H, Glucose 247 H, Calcium 8.6 03/25/25 11:00: PT 15.1 H, INR 1.2 03/25/25 11:09: POC Glucose 352 H 03/25/25 16:24: POC Glucose 199 H Micro: Microbiology 03/16/25 08:07 Swab (Method) Nasal Screen MRSA/MSSA - Final Physical Exam Narrative alert, oriented x3 and no apparent distress General Appearance: cooperative, well kempt and well developed Orientation / Consciousness: awake, oriented to person, oriented to place and oriented to time HEENT normocephalic, head/scalp atraumatic and moist oral mucous membranes Eyes PERRL, EOMs intact bilaterally and conjunctivae normal Neck supple, no JVD, thyroid normal and no carotid bruits General: trachea midline Resp normal respiratory effort, no retractions, no use of accessory muscles and clear to auscultation bilaterally Auscultation: Negative for rales, rhonchi or wheezes Cardio regular rate, regular rhythm, S1 normal heart sound, S2 normal heart sound, no murmurs, no rub and no gallops GI normal to inspection, nondistended, normoactive bowel sounds, soft to palpation, non-tender and non-distended Extremity no clubbing, cyanosis or edema Skin no rashes or lesions noted General Skin Exam: no breakdown Neuro oriented x3, CN's II-XII intact bilaterally, moves all extremities, no focal motor deficits and no sensory deficits noted Sensorium / Orientation: awake and alert Speech: speech normal Psych affect normal Assessment & Plan Assessment/Plan (1) S/P total right hip arthroplasty: PLAN: Plan 1. 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 Total clinical time spent by myself addressing the patient's medical issues, reviewing all of her data, and collaborating with patient's care team: 35-minute Charges/Coding Visit Charges Inpatient E&M: 78329 Subs Hosp L2
[2025-03-25 22:14] VITALS: BP 153/65; PULSE 86; RESP 16; TEMP 36.6; O2SAT 95
[2025-03-26] VITALS (13 sets, daily range): BP systolic 89–153; BP diastolic 45–62; PULSE 71–98; RESP 15–18; TEMP 36.5–37; O2SAT 92–100
[2025-03-26 06:54] LABS: Prothrombin Time (Protime)PT. 16.1 SECONDS (11.7-14.9)
[2025-03-26] MEDS: Calcium Carb/Vitamin D 1 TABLET Tablet PO ×2 (09:33→16:15)
--- NOTE | 2025-03-26 09:41 | CASEMGMT ---
Addendum entered by Linda Jade 03/26/25 14:04: GURVINDER BOYER into pt room, pt states she has decided and would like to go to [facility] Rehab unit. Updated hospitalist and admissions. Addendum entered by Linda Jade 03/26/25 11:58: GURVINDER BOYER into pt room, pt given the option of going to [facility] Rehab unit. Discussed the differences with pt, pt wants to discuss with prior to making this decision. Updated admissions for TCU and Rehab unit as well as hospitalist. Per admissions, the first bed available is on Sunday for TCU. Original Note: Pt is accepted to [facility] TCU or [facility] Rehab unit pending some treatments for low bp. GURVINDER BOEYR to speak with hospitalist upon rounds.
[2025-03-26] MEDS: Warfarin (PBKC) 4 MG Tablet PO (11:51)
--- NOTE | 2025-03-26 12:46 | PCM.PN.ORT ---
Documented by User: ARIANA Field 03/26/25 12:49 Subjective Subjective Postop day 2 right hip total arthroplasty. Seen and examined. Complaint of pain. Denies fevers chills nausea vomiting shortness of breath or chest pain. Sitting upright comfortably. Objective Data Objective Data Vital Signs: Vital Signs Temp Pulse Resp BP Pulse Ox O2 Del Method O2 Flow Rate 97.8 F 85 18 105/45 L 99 Room Air 2 03/26/25 10:15 03/26/25 11:31 03/26/25 10:15 03/26/25 11:31 03/26/25 10:15 03/26/25 10:15 03/26/25 07:30 Oxygen Flow Rate (L/min) 2 Oxygen Delivery Method Room Air Weight: 225 lb 15.581 oz Body Mass Index (BMI) 37.5 Intake & Output: Intake and Output for Last 24 Hours 03/24/25 03/25/25 03/26/25 23:59 23:59 23:59 Intake Total 2764 / 2964 1719 / 1969 550 / 550 Output Total 150 / 150 Balance 2614 / 2814 1719 / 1969 550 / 550 Lab / Micro Data 03/25/25 06:39 03/25/25 06:39 Labs: Laboratory Results - last 24 hr 03/25/25 16:24: POC Glucose 199 H 03/26/25 06:12: PT 16.1 H, INR 1.3 03/26/25 06:29: POC Glucose 184 H 03/26/25 11:05: POC Glucose 155 H Micro: Microbiology 03/16/25 08:07 Swab (Method) Nasal Screen MRSA/MSSA - Final Physical Exam Const alert, oriented x3 and no apparent distress General Appearance: cooperative Extremity normal capillary refill Extremity Narrative: Right hip dressing clean dry intact compartment soft neurovasc intact right lower extremity EHL tibialis anterior gastrocsoleus intact sensation light touch palpable pedal pulses Assessment & Plan Assessment/Plan (1) S/P total right hip arthroplasty: PLAN: Plan Postop day #2 right total hip arthroplasty PT OT weightbearing as tolerated with hip precautions Pain control oxycodone and Tylenol DVT prophylaxis Coumadin and Lovenox until INR therapeutic then DC Lovenox. INR today 1.3. Plan for discharge to either [facility] vs [facility] rehab unit when bed available. According to case management note from today, bed would be available at the TCU on Sunday, patient wishes to discuss discharge with Dr. Terry. Dressing to be undisturbed for 7 days postop then remove prior to for shower and clean daily with antibacterial soap and warm water daily after dressing is removed with reapplication of dry dressing Follow-up in the office 2 weeks postop for wound check and staple removal if still in transitional care or rehab at the hospital I can see her there if notified. Documented by User: Dr. Juve Johnson MD 03/26/25 13:03 Subjective Subjective Postop day 2 right hip total arthroplasty. Seen and examined. Complaint of pain. Denies fevers chills nausea vomiting shortness of breath or chest pain. Sitting upright comfortably. Had hypotension this morning which made it difficult for her to do PT, but now seems stabilized. Objective Data Lab / Micro Data 03/25/25 06:39 03/25/25 06:39 Physical Exam Narrative Patient sitting in chair. Dressing CDI. Mild staining at the iliac crest dressing. Distal neurovascular exam is intact. Assessment & Plan Assessment/Plan (1) S/P total right hip arthroplasty: PLAN: Plan Postop day #2 right total hip arthroplasty PT OT weightbearing as tolerated with hip precautions DVT prophylaxis Coumadin and Lovenox until INR therapeutic then DC Lovenox. INR today 1.3. Plan for discharge to rehab when bed available. Dressing to be undisturbed for 7 days postop then remove prior to for shower and clean daily with antibacterial soap and warm water daily after dressing is removed with reapplication of dry dressing. Discussed with Dr. Terry. Follow-up in the office 2 weeks postop for wound check and staple removal.
[2025-03-26] MEDS: HYDROcodone Bitartrate/Apap 5/325 Tablet PO ×2 (13:52→20:02)
[2025-03-26] MEDS: Warfarin (PBKC) 5 MG Tablet 10 MG PO (16:15)
--- NOTE | 2025-03-26 18:54 | PCM.PN.HOSP ---
Subjective Subjective Patient was seen and examined today, I held her blood pressure medications because her pressure was low this morning with a systolic reading in the 90s. The rehab unit declined to take her due to her pressure being low today and wanted to have her reevaluated tomorrow morning. I have decided to stop her Zestril and hydrochlorothiazide. Patient was given extra warfarin today due to a low INR. She remains on Lovenox for DVT prophylaxis. Objective Data Objective Data Vital Signs: Vital Signs Temp Pulse Resp BP Pulse Ox O2 Del Method O2 Flow Rate 97.8 F 98 16 145/55 H 100 Room Air 2 03/26/25 14:12 03/26/25 17:58 03/26/25 14:12 03/26/25 17:58 03/26/25 14:12 03/26/25 14:12 03/26/25 07:30 Oxygen Flow Rate (L/min) 2 Oxygen Delivery Method Room Air Weight: 102.5 kg Body Mass Index (BMI) 37.5 Intake & Output: Intake and Output for Last 24 Hours 03/24/25 03/25/25 03/26/25 23:59 23:59 23:59 Intake Total 2764 / 2964 1719 / 1969 550 / 550 Output Total 150 / 150 Balance 2614 / 2814 172 / 1969 550 / 550 Lab / Micro Data 03/25/25 06:39 03/25/25 06:39 Labs: Laboratory Results - last 24 hr 03/26/25 06:12: PT 16.1 H, INR 1.3 03/26/25 06:29: POC Glucose 184 H 03/26/25 11:05: POC Glucose 155 H 03/26/25 16:12: POC Glucose 177 H Micro: Microbiology 03/16/25 08:07 Swab (Method) Nasal Screen MRSA/MSSA - Final Physical Exam Narrative alert, oriented x3 and no apparent distress General Appearance: cooperative, well kempt and well developed Orientation / Consciousness: awake, oriented to person, oriented to place and oriented to time HEENT normocephalic, head/scalp atraumatic and moist oral mucous membranes Eyes PERRL, EOMs intact bilaterally and conjunctivae normal Neck supple, no JVD, thyroid normal and no carotid bruits General: trachea midline Resp normal respiratory effort, no retractions, no use of accessory muscles and clear to auscultation bilaterally Auscultation: Negative for rales, rhonchi or wheezes Cardio regular rate, regular rhythm, S1 normal heart sound, S2 normal heart sound, no murmurs, no rub and no gallops GI normal to inspection, nondistended, normoactive bowel sounds, soft to palpation, non-tender and non-distended Extremity no clubbing, cyanosis or edema Skin no rashes or lesions noted General Skin Exam: no breakdown Neuro oriented x3, CN's II-XII intact bilaterally, moves all extremities, no focal motor deficits and no sensory deficits noted Sensorium / Orientation: awake and alert Speech: speech normal Psych affect normal Assessment & Plan Assessment/Plan (1) Degenerative joint disease of right hip: QUALIFIERS: Osteoarthritis type: primary Qualified Code(s): M16.11 - Unilateral primary osteoarthritis, right hip (2) S/P total right hip arthroplasty: PLAN: Plan 1. 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 Total clinical time spent by myself addressing the patient's medical issues, reviewing all of her data, and collaborating with patient's care team: 35-minute Charges/Coding Visit Charges Inpatient E&M: 41002 Subs Hosp L2
[2025-03-26] MEDS: Senna/Docusate Sodium 1 Tablet 2 TABLET PO (22:17)
[2025-03-27 02:00] VITALS: BP 113/90; PULSE 72; RESP 15; TEMP 36.7; O2SAT 97
--- NOTE | 2025-03-27 07:19 | PCM.PN.ORT ---
Subjective Subjective Seen and examined. Doing okay pain is slightly better. No fevers or chills nausea vomiting shortness of breath or chest pain or dizziness with ambulating. Eating and drinking okay bowel movement and urination no difficulty. Ready for discharge Objective Data Objective Data Vital Signs: Vital Signs Temp Pulse Resp BP Pulse Ox O2 Del Method O2 Flow Rate 98.0 F 72 15 113/90 H 97 Nasal Cannula 2 03/27/25 02:00 03/27/25 02:00 03/27/25 02:00 03/27/25 02:00 03/27/25 02:00 03/27/25 03:00 03/27/25 03:00 FiO2 97 03/27/25 03:00 Oxygen Flow Rate (L/min) 2 Oxygen Delivery Method Nasal Cannula Weight: 225 lb 15.581 oz Body Mass Index (BMI) 37.5 Intake & Output: Intake and Output for Last 24 Hours 03/25/25 03/26/25 03/27/25 23:59 23:59 23:59 Intake Total 1720 / 1970 550 / 550 Balance 1720 / 1970 550 / 550 Lab / Micro Data 03/25/25 06:39 03/25/25 06:39 Labs: Laboratory Results - last 24 hr 03/26/25 11:05: POC Glucose 155 H 03/26/25 16:12: POC Glucose 177 H 03/26/25 22:38: POC Glucose 166 H Micro: Microbiology 03/16/25 08:07 Swab (Method) Nasal Screen MRSA/MSSA - Final Physical Exam Narrative Patient sitting in chair. Dressing CDI. Mild staining at the iliac crest dressing. Distal neurovascular exam is intact. Const alert, oriented x3 and no apparent distress General Appearance: cooperative Extremity normal capillary refill Extremity Narrative: Right hip dressing clean dry intact compartment soft neurovasc intact right lower extremity EHL tibialis anterior gastrocsoleus intact sensation light touch palpable pedal pulses Assessment & Plan Assessment/Plan (1) S/P total right hip arthroplasty: PLAN: Plan Postop day #3 right total hip arthroplasty PT OT weightbearing as tolerated with hip precautions DVT prophylaxis Coumadin and Lovenox until INR therapeutic then DC Lovenox. Plan for discharge to rehab today if okay with medicine Dressing to be undisturbed for 7 days postop then remove prior to for shower and clean daily with antibacterial soap and warm water daily after dressing is removed with reapplication of dry dressing. Discussed with Dr. Terry. Follow-up in the office 2 weeks postop for wound check and staple removal.
--- NOTE | 2025-03-27 07:30 | TREXTCAR_ITS ---
Diet Diet Order/Speech Therapy: INPATIENT Hospital Diet / Speech Therapy Order(s) 03/24/25 14:50 Diet: Regular - General DC O2, CPAP, BIPAP needs Home O2 Discharge instructions: No Wound(s) rt hip: Wound Type: Surgical Incision RLQ: Wound Type: Surgical Incision Therapies Weight Bearing: Full weight bearing (standard hip precautions) Extremity Affected:: Bilateral Lower Problem/Diagnosis (1) S/P total right hip arthroplasty: Status: Acute Code(s): Z96.641 - Presence of right artificial hip joint Plan Postop day #3 right total hip arthroplasty PT OT weightbearing as tolerated with hip precautions DVT prophylaxis Coumadin and Lovenox until INR therapeutic then DC Lovenox. Plan for discharge to rehab today if okay with medicine Dressing to be undisturbed for 7 days postop then remove prior to for shower and clean daily with antibacterial soap and warm water daily after dressing is removed with reapplication of dry dressing. Discussed with Dr. Terry. Follow-up in the office 2 weeks postop for wound check and staple removal. Allergies/Procedures Done in Hospital Allergies amoxicillin Allergy (Mild, Verified 03/24/25 06:17) rash atorvastatin Adverse Reaction (Mild, Verified 03/24/25 06:17) myalgiias muscle pain levofloxacin (From Levaquin) Adverse Reaction (Unknown, Verified 03/24/25 06:17) Nausea Type of Care/Length of Stay Estimated LOS: Convalescent Care Less Than 30 days Type of Care Needed: Skilled Rehab Potential: Good Prognosis: Good Additional Orders/Day of Discharge Day of Discharge: 03/27/25 Follow Up Care Please Follow Up With: Jose Ramon Terry DO When: 2 weeks Discharge Plan Admission Admit Date/Time: 03/24/25 10:28 Primary Reason for Your Visit: Right total hip arthroplasty Attending Provider: Jose Ramon Terry Primary Care Provider: Meir Zepeda Consulting Providers: Juarez Muñoz; Neymar Masters Instructions Additional Instructions / Restrictions: Do not shower for 1 week. May Begin daily showering with warm water antibacterial soap postop day 7 and then daily. Leave the dressing on for 7day postoperatively then remove prior to first shower and change dressing daily after this until no drainage for 2 consecutive days then may leave open to air. Do not submerge for 3 weeks. If not showering daily after the initial dressing is removed you must clean incision and change dressing daily after the dressing comes off, must come off by 7 days postop. Do not allow animals near the incision area. Keep clean. Follow hip precautions that were reviewed in hospital. Wear compression stockings, may remove at night. Start physical therapy as directed in hospital. Follow prescriptions instructions do not take any other pain medication or differ dosing without consulting your physician. Do not take oral NSAIDs. Call Dr. Terry's office with any concerns. Discharge Orders/Prescriptions Prescriptions: New acetaminophen 500 mg tablet 1,000 mg PO Q6H Qty: 90 0RF oxycodone 5 mg tablet 5 - 10 mg PO Q4H PRN (Reason: pain) 7 Days Qty: 60 0RF enoxaparin [Lovenox] 40 mg/0.4 mL syringe 40 mg subcut DAILY Qty: 4 0RF Rx Instructions: Discontinue when INR therapeutic Continued calcium carbonate-vitamin D3 [Calcium 600 with Vitamin D3] 600 mg(1,500mg) - 500 unit capsule 1 cap PO BID metformin 1,000 mg tablet 1,000 mg PO BID hydroxychloroquine 200 mg tablet 200 mg PO BID gabapentin 300 mg capsule 300 mg PO BID duloxetine [Cymbalta] 60 mg capsule,delayed release(DR/EC) 60 mg PO QAM Qty: 90 1RF duloxetine 30 mg capsule,delayed release(DR/EC) 30 mg PO QPM Qty: 90 1RF meclizine 25 mg tablet 25 mg PO BID PRN (Reason: dizziness) Qty: 180 0RF lisinopril-hydrochlorothiazide 20-12.5 mg tablet 1 tab PO QDAY trazodone 50 MG tablet 100 mg PO QHS Patient Comments: INSOMINIA ferrous sulfate 325 MG tablet 325 mg PO BID Patient Comments: SUPPLEMENT multivitamin with folic acid 1 TABLET tablet 1 tab PO DAILY Patient Comments: SUPPLEMENT biotin 10,000 mcg capsule 10,000 mcg PO DAILY Patient Comments: SUPPLEMENT tramadol 50 mg Tablet 50 mg PO Q6H PRN (Reason: Pain Score 6-10) Qty: 25 0RF warfarin [Jantoven] 5 mg tablet 10 mg PO SUTUWETHSA ropinirole 2 mg tablet 2 mg PO QHS warfarin 4 mg tablet 8 mg PO MOFR (DME) CPAP - Continuous Positive Airway Pressure([facility] INFORMATIONAL USE ONLY) Device See Rx Instructions .ROUTE Rx Instructions: As directed tizanidine 4 mg tablet 8 mg PO QHS Rx Instructions: Take 1 to 2 tablets orally nightly. ropinirole 2 mg tablet 2 mg PO 1700 Rx Instructions: Take 1 tablet orally q5PM and 1 tablet nightly as needed omeprazole 20 mg capsule,delayed release(DR/EC) 20 mg PO DAILY Held methotrexate sodium 2.5 mg tablet 20 mg PO SA Hold Instructions: Hold until after 2 weeks postop visit Referrals / Follow Up: Meir Zepeda MD [Primary Care Provider] - Disposition Disposition (needs filled in before D/C Order can be placed): Inpatient Rehab Unit/Facility
[2025-03-27 08:00] VITALS: BP 143/60; PULSE 79; RESP 16; TEMP 36.9; O2SAT 98
[2025-03-27] MEDS: Senna/Docusate Sodium 1 Tablet 2 TABLET PO (08:23)
[2025-03-27] MEDS: Calcium Carb/Vitamin D 1 TABLET Tablet PO (08:24)
[2025-03-27] MEDS: HYDROcodone Bitartrate/Apap 5/325 Tablet PO (08:25)
--- NOTE | 2025-03-27 08:25 | TREXTCAR_ITS ---
Diet Diet Order/Speech Therapy: INPATIENT Hospital Diet / Speech Therapy Order(s) 03/24/25 14:50 Diet: Regular - General Routine Orders/Code Status Routine Lab Work: INR (Daily starting 03/28/25 x 3 days, discontinue Lovenox when INR above 2) Code Status: Full Code DC O2, CPAP, BIPAP needs Home O2 Discharge instructions: No Wound(s) rt hip: Wound Type: Surgical Incision RLQ: Wound Type: Surgical Incision Therapies Weight Bearing: Weight bearing as tolerated Physical Therapy: Eval and Treat Occupational Therapy: Eval and Treat Problem/Diagnosis (1) S/P total right hip arthroplasty: Status: Acute Code(s): Z96.641 - Presence of right artificial hip joint Plan 1. 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-patient will resume her warfarin, INR will be rechecked tomorrow, patient is currently also on Lovenox until her INR becomes therapeutic, INR today was 1.6, she was given extra warfarin this morning #5 rheumatoid arthritis-complicates care, management, recovery, and prognosis #6 degenerative disc disease of the lumbar spine with lumbar radiculopathy- patient is on gabapentin #7 essential hypertension-due to hypotension yesterday, her blood pressure medication was stopped, her blood pressure will need to be monitored in the rehab unit #8 status post right hip replacement postop day 3 -PT and OT will work with patient, she states her plan is to go to a intermediate facility for short- term rehab services. Total clinical time spent by myself addressing the patient's medical issues, reviewing all of her data, and collaborating with patient's care team: 35-minute Allergies/Procedures Done in Hospital Allergies amoxicillin Allergy (Mild, Verified 03/24/25 06:17) rash atorvastatin Adverse Reaction (Mild, Verified 03/24/25 06:17) myalgiias muscle pain levofloxacin (From Levaquin) Adverse Reaction (Unknown, Verified 03/24/25 06:17) Nausea Procedures: - (CT-guided MAKOplasty assisted right total hip arthroplasty- 03/24/2025) Type of Care/Length of Stay Estimated LOS: Convalescent Care Less Than 30 days Type of Care Needed: Acute Rehab Rehab Potential: Good Prognosis: Good Additional Orders/Day of Discharge H&P will serve as current which was dated: 03/24/25 Day of Discharge: 03/27/25 Follow Up Care Please Follow Up With: Jose Ramon Terry DO When: 2 weeks Discharge Plan Admission Admit Date/Time: 03/24/25 10:28 Primary Reason for Your Visit: Right total hip arthroplasty Attending Provider: Jose Ramon Terry Primary Care Provider: Meir Zepeda Consulting Providers: Juarez Muñoz; Neymar Masters Instructions Additional Instructions / Restrictions: Do not shower for 1 week. May Begin daily showering with warm water antibacterial soap postop day 7 and then daily. Leave the dressing on for 7day postoperatively then remove prior to first shower and change dressing daily after this until no drainage for 2 consecutive days then may leave open to air. Do not submerge for 3 weeks. If not showering daily after the initial dressing is removed you must clean incision and change dressing daily after the dressing comes off, must come off by 7 days postop. Do not allow animals near the incision area. Keep clean. Follow hip precautions that were reviewed in hospital. Wear compression stockings, may remove at night. Start physical therapy as directed in hospital. Follow prescriptions instructions do not take any other pain medication or differ dosing without consulting your physician. Do not take oral NSAIDs. Call Dr. Terry's office with any concerns. Discharge Orders/Prescriptions Prescriptions: New acetaminophen 500 mg tablet 1,000 mg PO Q6H Qty: 90 0RF oxycodone 5 mg tablet 5 - 10 mg PO Q4H PRN (Reason: pain) 7 Days Qty: 60 0RF enoxaparin [Lovenox] 40 mg/0.4 mL syringe 40 mg subcut DAILY Qty: 4 0RF Rx Instructions: Discontinue when INR therapeutic Continued calcium carbonate-vitamin D3 [Calcium 600 with Vitamin D3] 600 mg(1,500mg) - 500 unit capsule 1 cap PO BID metformin 1,000 mg tablet 1,000 mg PO BID hydroxychloroquine 200 mg tablet 200 mg PO BID gabapentin 300 mg capsule 300 mg PO BID duloxetine [Cymbalta] 60 mg capsule,delayed release(DR/EC) 60 mg PO QAM Qty: 90 1RF duloxetine 30 mg capsule,delayed release(DR/EC) 30 mg PO QPM Qty: 90 1RF meclizine 25 mg tablet 25 mg PO BID PRN (Reason: dizziness) Qty: 180 0RF lisinopril-hydrochlorothiazide 20-12.5 mg tablet 1 tab PO QDAY trazodone 50 MG tablet 100 mg PO QHS Patient Comments: INSOMINIA ferrous sulfate 325 MG tablet 325 mg PO BID Patient Comments: SUPPLEMENT multivitamin with folic acid 1 TABLET tablet 1 tab PO DAILY Patient Comments: SUPPLEMENT biotin 10,000 mcg capsule 10,000 mcg PO DAILY Patient Comments: SUPPLEMENT tramadol 50 mg Tablet 50 mg PO Q6H PRN (Reason: Pain Score 6-10) Qty: 25 0RF warfarin [Jantoven] 5 mg tablet 10 mg PO SUTUWETHSA ropinirole 2 mg tablet 2 mg PO QHS warfarin 4 mg tablet 8 mg PO MOFR (DME) CPAP - Continuous Positive Airway Pressure([facility] INFORMATIONAL USE ONLY) Device See Rx Instructions .ROUTE Rx Instructions: As directed tizanidine 4 mg tablet 8 mg PO QHS Rx Instructions: Take 1 to 2 tablets orally nightly. ropinirole 2 mg tablet 2 mg PO 1700 Rx Instructions: Take 1 tablet orally q5PM and 1 tablet nightly as needed omeprazole 20 mg capsule,delayed release(DR/EC) 20 mg PO DAILY Held methotrexate sodium 2.5 mg tablet 20 mg PO SA Hold Instructions: Hold until after 2 weeks postop visit Referrals / Follow Up: Meir Zepeda MD [Primary Care Provider] - Disposition Disposition (needs filled in before D/C Order can be placed): Inpatient Rehab Unit/Facility
[2025-03-27 09:17] LABS: Prothrombin Time (Protime)PT. 18.9 SECONDS (11.7-14.9)
--- NOTE | 2025-03-27 10:29 | PN.HOSP_ITS ---
Subjective Subjective Patient was seen and examined today, her blood pressure was 143/60, the rehab unit has agreed to take her today Objective Data Objective Data Vital Signs: Vital Signs Temp Pulse Resp BP Pulse Ox O2 Del Method O2 Flow Rate 98.4 F 79 16 143/60 H 98 Room Air 2 03/27/25 08:00 03/27/25 08:00 03/27/25 08:00 03/27/25 08:00 03/27/25 08:00 03/27/25 09:00 03/27/25 03:00 FiO2 97 03/27/25 03:00 Oxygen Flow Rate (L/min) 2 Oxygen Delivery Method Room Air Weight: 102.5 kg Body Mass Index (BMI) 37.5 Intake & Output: Intake and Output for Last 24 Hours 03/25/25 03/26/25 03/27/25 23:59 23:59 23:59 Intake Total 1719 / 1969 550 / 550 Balance 1719 550 / 550 Lab / Micro Data 03/25/25 06:39 03/25/25 06:39 Labs: Laboratory Results - last 24 hr 03/26/25 11:05: POC Glucose 155 H 03/26/25 16:12: POC Glucose 177 H 03/26/25 22:38: POC Glucose 166 H 03/27/25 06:35: PT 18.9 H, INR 1.6 03/27/25 07:02: POC Glucose 172 H Micro: Microbiology 03/16/25 08:07 Swab (Method) Nasal Screen MRSA/MSSA - Final Physical Exam Narrative alert, oriented x3 and no apparent distress General Appearance: cooperative, well kempt and well developed Orientation / Consciousness: awake, oriented to person, oriented to place and oriented to time HEENT normocephalic, head/scalp atraumatic and moist oral mucous membranes Eyes PERRL, EOMs intact bilaterally and conjunctivae normal Neck supple, no JVD, thyroid normal and no carotid bruits General: trachea midline Resp normal respiratory effort, no retractions, no use of accessory muscles and clear to auscultation bilaterally Auscultation: Negative for rales, rhonchi or wheezes Cardio regular rate, regular rhythm, S1 normal heart sound, S2 normal heart sound, no murmurs, no rub and no gallops GI normal to inspection, nondistended, normoactive bowel sounds, soft to palpation, non-tender and non-distended Extremity no clubbing, cyanosis or edema Skin no rashes or lesions noted General Skin Exam: no breakdown Neuro oriented x3, CN's II-XII intact bilaterally, moves all extremities, no focal motor deficits and no sensory deficits noted Sensorium / Orientation: awake and alert Speech: speech normal Psych affect normal Assessment & Plan Assessment/Plan (1) S/P total right hip arthroplasty: PLAN: Plan 1. 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-patient will resume her warfarin, INR will be rechecked tomorrow, patient is currently also on Lovenox until her INR becomes therapeutic, INR today was 1.6, she was given extra warfarin this morning #5 rheumatoid arthritis-complicates care, management, recovery, and prognosis #6 degenerative disc disease of the lumbar spine with lumbar radiculopathy- patient is on gabapentin #7 essential hypertension-due to hypotension yesterday, her blood pressure medication was stopped, her blood pressure will need to be monitored in the rehab unit #8 status post right hip replacement postop day 3 -PT and OT will work with patient, patient will be transferred to the rehab unit today for further inpatient rehab services Total clinical time spent by myself addressing the patient's medical issues, reviewing all of her data, and collaborating with patient's care team: 35-minute Charges/Coding Visit Charges Inpatient E&M: 75072 Subs Hosp L2
--- NOTE | 2025-03-27 10:30 | PHA.DC.MR.R ---
Pharmacy [place] Med Reconciliation Pharmacy Service has performed discharge medication reconciliation for this patient. The patient's discharge medication list was reviewed for discrepancies and discrepancies were resolved. Medications at Discharge Home Medications ferrous sulfate 325 mg (65 mg iron) tablet 325 mg PO BID SUPPLEMENT 02/11/14 multivitamin with folic acid 400 mcg tablet 1 tab PO DAILY SUPPLEMENT 02/11/14 trazodone 50 mg tablet 100 mg PO QHS SLEEP 02/11/14 biotin 10,000 mcg capsule 10,000 mcg PO DAILY HAIR LOSS 05/30/21 calcium 600 mg (as carbonate)-vitamin D3 12.5 mcg (500 unit) capsule (Calcium with Vit D3) 1 cap PO BID SUPPLEMENT 05/30/21 tramadol 50 mg tablet 50 mg PO Q6H PRN Pain Score 6-10 #25 tabs 01/25/23 hydroxychloroquine 200 mg tablet 200 mg PO BID OA 01/18/24 gabapentin 300 mg capsule 300 mg PO BID PAIN 10/06/24 lisinopril 20 mg-hydrochlorothiazide 12.5 mg tablet 1 tab PO QDAY BP 10/06/24 metformin 1,000 mg tablet 1,000 mg PO BID DIABETES 10/06/24 warfarin 5 mg tablet (Jantoven) 10 mg PO SUTUWETHSA BLOOD THINNER 10/06/24 duloxetine 30 mg capsule,delayed release 30 mg PO QPM DEPRESSION #90 caps 01/29/25 duloxetine 60 mg capsule,delayed release (Cymbalta) 60 mg PO QAM DEPRESSION #90 caps 01/29/25 meclizine 25 mg tablet 25 mg PO BID PRN dizziness #180 tabs 01/30/25 methotrexate sodium 2.5 mg tablet 20 mg PO SA OA 02/25/25 Held on 03/27/25. Instructions: Hold until after 2 weeks postop visit CPAP - Continuous Positive Airway Pressure([facility] INFORMATIONAL USE ONLY) 03/10/25 omeprazole 20 mg capsule,delayed release 20 mg PO DAILY GERD 03/10/25 ropinirole 2 mg tablet 2 mg PO 1700 RLS 03/10/25 ropinirole 2 mg tablet 2 mg PO QHS RLS 03/10/25 tizanidine 4 mg tablet 8 mg PO QHS muscle spasticity/leg restlessness 03/10/25 warfarin 4 mg tablet 8 mg PO MOFR BLOOD THINNER 03/10/25 acetaminophen 500 mg tablet 1,000 mg (2 x 500 mg) PO Q6H #90 tabs 03/27/25 enoxaparin 40 mg/0.4 mL subcutaneous syringe (Lovenox) 40 mg (0.4 mL) subcut DAILY #4 mL 03/27/25 oxycodone 5 mg tablet 5 - 10 mg (1 - 2 x 5 mg) PO Q4H PRN pain 7 days #60 tabs 03/27/25
[2025-03-27] MEDS: Warfarin (PBKC) 4 MG Tablet PO (10:42)
--- NOTE | 2025-03-27 10:55 | CASEMGMT ---
Pt medically ready for dc to [facility] Rehab unit. Faxed signed med list, rx, trf to ext care from ortho and hospitalist to [facility] Rehab. Nurse aware to call report. RN CM into pt room, pt is aware she is ready to dc. Pt denies any further questions at this time.
--- NOTE | 2025-03-30 10:48 | DS.PCM_ITS ---
Providers Date of Admission: 03/24/25 Primary Care Physician: Meir Zepeda MD Consultations 03/24/25 10:28 Consult: Hospitalist Routine Consulting Provider: Neymar Masters Reason for Consult: post op medical management; particularly diabetic management please EMERGENT Consult: No MD Notified: Yes Date Notified: 03/24/25 Time Notified: 12:31 Method of Notification: Text Reason For Visit: ERAS, Right Total Hip Replacement Robotic Arm [employer]i Diagnosis Discharge Diagnosis (1) S/P total right hip arthroplasty: Status: Acute Code(s): Z96.641 - Presence of right artificial hip joint Plan Postop day #3 right total hip arthroplasty PT OT weightbearing as tolerated with hip precautions DVT prophylaxis Coumadin and Lovenox until INR therapeutic then DC Lovenox. Plan for discharge to rehab today if okay with medicine Dressing to be undisturbed for 7 days postop then remove prior to for shower and clean daily with antibacterial soap and warm water daily after dressing is removed with reapplication of dry dressing. Discussed with Dr. Terry. Follow-up in the office 2 weeks postop for wound check and staple removal. Medications at Discharge Home Medications ferrous sulfate 325 mg (65 mg iron) tablet 325 mg PO 1200 SUPPLEMENT 02/11/14 multivitamin with folic acid 400 mcg tablet 1 tab PO DAILY SUPPLEMENT 02/11/14 trazodone 50 mg tablet 100 mg PO QHS SLEEP 02/11/14 biotin 10,000 mcg capsule 10,000 mcg PO DAILY HAIR LOSS 05/30/21 Held on 03/27/25. Instructions: Ordered calcium 600 mg (as carbonate)-vitamin D3 12.5 mcg (500 unit) capsule (Calcium with Vit D3) 1 cap PO BID SUPPLEMENT 05/30/21 Held on 03/27/25. Instructions: MD Ordered tramadol 50 mg tablet 50 mg PO Q6H PRN Pain Score 6-10 #25 tabs 01/25/23 Held on 03/27/25. Instructions: Ordered hydroxychloroquine 200 mg tablet 200 mg PO BID OA 01/18/24 metformin 1,000 mg tablet 500 mg PO BID DIABETES 10/06/24 warfarin 5 mg tablet (Jantoven) 10 mg PO SUTUWETHSA BLOOD THINNER 10/06/24 duloxetine 30 mg capsule,delayed release 30 mg PO QPM DEPRESSION #90 caps 01/29/25 duloxetine 60 mg capsule,delayed release (Cymbalta) 60 mg PO QAM DEPRESSION #90 caps 01/29/25 methotrexate sodium 2.5 mg tablet 20 mg PO SA OA 02/25/25 Held on 03/27/25. Instructions: Hold until after 2 weeks postop visit CPAP - Continuous Positive Airway Pressure([facility] INFORMATIONAL USE ONLY) 03/10/25 omeprazole 20 mg capsule,delayed release 20 mg PO DAILY GERD 03/10/25 ropinirole 2 mg tablet 2 mg PO 1700 RLS 03/10/25 ropinirole 2 mg tablet 2 mg PO QHS RLS 03/10/25 tizanidine 4 mg tablet 8 mg PO QHS muscle spasticity/leg restlessness 03/10/25 warfarin 4 mg tablet 8 mg PO MOFR BLOOD THINNER 03/10/25 acetaminophen 500 mg tablet 1,000 mg PO Q8H pain 03/27/25 ascorbic acid (vitamin C) 1,000 mg tablet (C-1000) 1 g PO 1200 supplement 03/27/25 enoxaparin 40 mg/0.4 mL subcutaneous syringe (Lovenox) 40 mg (0.4 mL) subcut DAILY Blood thinner #4 mL 03/27/25 gabapentin 100 mg capsule 200 mg PO Q8H neuropathy 03/27/25 Hospital Course Operations total hip replacement Summary of Care Provided Hospital Course: Patient with long-standing history of severe right hip DJD who is failed conservative treatment. Patient underwent total hip arthroplasty day of admission. Patient did receive pre-and postoperative antibiotics which were discontinued within 23 hours postoperatively. Patient did receive spinal anesthesia and postoperatively pain was controlled with both IV and p.o. pain medication. Patient did receive 2 g of tranexamic acid. hemoglobin and hematocrit were monitored postoperatively as well as vital signs and the patient did not require any blood transfusion. She did have an episode of hypotension that resolved she was seen by her medical office asst. dressing will be changed daily beginning postop day # 5 before shower will be removed and replaced after. Pt was started on Coumadin and bridged with Lovenox until INR therapeutic . Patient was seen by physical therapy. patient will be discharged to rehab we will start [outpatient physical after rehab]. will follow-up in the office in 2 weeks. Weight / BMI Weight Weight: 225 lb 15.581 oz Body Mass Index (BMI) 37.5 ABG / Lab / Microbiology Data 03/25/25 06:39 03/25/25 06:39 Microbiology: Microbiology 03/16/25 08:07 Swab (Method) Nasal Screen MRSA/MSSA - Final D/C Instructions Additional Dressing/Incision Instructions: Do not shower for 72hrs. May Begin daily showering with warm water antibacterial soap postop day #5 and then daily. Leave the dressing on for 5 days postoperatively then remove prior to first shower and change dressing daily after this until no drainage for 2 consecutive days then may leave open to air. If you decide not shower and wish to sponge bath only, then may leave dressing undisturbed for up to 1 week, but must remove prior to first shower. Do not submerge for 3 weeks. If not showering daily after the initial dressing is removed you must clean incision and change dressing daily after the dressing comes off, must come off by 7 days postop. Do not allow animals near the incision area. Keep clean. Follow hip precautions that were reviewed in hospital. Wear compression stockings, may remove at night. Start physical therapy as directed in hospital. Follow prescriptions instructions do not take any other pain medication or differ dosing without consulting your physician. Call Dr. Terry's office with any concerns. DC O2, CPAP, BIPAP Needs Home O2 Discharge instructions: No Please Follow Up With: Jose Ramon Terry DO When: 2 weeks, however if still in rehab I can see her there if notified. Meaningful Use Info Meaningful Use Meaningful Use Diagnoses (Choose all that apply): None applicable Discharge Plan Admission Admit Date/Time: 03/24/25 10:28 Primary Reason for Your Visit: Right total hip arthroplasty Attending Provider: Jose Ramon Terry Primary Care Provider: Meir Zepeda Consulting Providers: Juarez Muñoz; Neymar Masters Instructions Additional Instructions / Restrictions: Do not shower for 1 week. May Begin daily showering with warm water antibacterial soap postop day 7 and then daily. Leave the dressing on for 7day postoperatively then remove prior to first shower and change dressing daily after this until no drainage for 2 consecutive days then may leave open to air. Do not submerge for 3 weeks. If not showering daily after the initial dressing is removed you must clean incision and change dressing daily after the dressing comes off, must come off by 7 days postop. Do not allow animals near the incision area. Keep clean. Follow hip precautions that were reviewed in hospital. Wear compression stockings, may remove at night. Start physical therapy as directed in hospital. Follow prescriptions instructions do not take any other pain medication or differ dosing without consulting your physician. Do not take oral NSAIDs. Call Dr. Terry's office with any concerns. Discharge Orders/Prescriptions Prescriptions: New enoxaparin [Lovenox] 40 mg/0.4 mL syringe 40 mg subcut DAILY Qty: 4 0RF Rx Instructions: Discontinue when INR therapeutic Continued calcium carbonate-vitamin D3 [Calcium 600 with Vitamin D3] 600 mg(1,500mg) - 500 unit capsule 1 cap PO BID metformin 1,000 mg tablet 500 mg PO BID hydroxychloroquine 200 mg tablet 200 mg PO BID duloxetine [Cymbalta] 60 mg capsule,delayed release(DR/EC) 60 mg PO QAM Qty: 90 1RF duloxetine 30 mg capsule,delayed release(DR/EC) 30 mg PO QPM Qty: 90 1RF trazodone 50 MG tablet 100 mg PO QHS Patient Comments: INSOMINIA ferrous sulfate 325 MG tablet 325 mg PO 1200 Patient Comments: SUPPLEMENT multivitamin with folic acid 1 TABLET tablet 1 tab PO DAILY Patient Comments: SUPPLEMENT biotin 10,000 mcg capsule 10,000 mcg PO DAILY Patient Comments: SUPPLEMENT tramadol 50 mg Tablet 50 mg PO Q6H PRN (Reason: Pain Score 6-10) Qty: 25 0RF warfarin [Jantoven] 5 mg tablet 10 mg PO SUTUWETHSA ropinirole 2 mg tablet 2 mg PO QHS warfarin 4 mg tablet 8 mg PO MOFR (DME) CPAP - Continuous Positive Airway Pressure([facility] INFORMATIONAL USE ONLY) Device See Rx Instructions .ROUTE Rx Instructions: As directed tizanidine 4 mg tablet 8 mg PO QHS Rx Instructions: Take 1 to 2 tablets orally nightly. ropinirole 2 mg tablet 2 mg PO 1700 omeprazole 20 mg capsule,delayed release(DR/EC) 20 mg PO DAILY Held methotrexate sodium 2.5 mg tablet 20 mg PO SA Hold Instructions: Hold until after 2 weeks postop visit No Action ascorbic acid (vitamin C) [C-1000] 1,000 mg tablet 1 g PO 1200 gabapentin 100 mg capsule 200 mg PO Q8H acetaminophen 500 mg tablet 1,000 mg PO Q8H Referrals / Follow Up: Meir Zepeda MD [Primary Care Provider] - Disposition Disposition (needs filled in before D/C Order can be placed): Inpatient Rehab Unit/Facility
== END 2025-03-27 13:23 | DRG 470 ==
PROVIDERS: Anesthesiology; Internal Medicine; Admitting Provider Orthopaedic Surgery; PCP Family Medicine; Referring Provider Orthopaedic Surgery; Visit Provider Orthopaedic Surgery
PROC: 8E0Y0CZ Robotic Assisted Procedure of Lower Extremity, Open Approach (ICD-10-PCS; CPT 27130; principal; 2025-03-24 07:00)
DX: M16.11 Unilateral primary osteoarthritis, right hip (principal); E11.42 Type 2 diabetes mellitus with diabetic polyneuropathy; J44.9 Chronic obstructive pulmonary disease, unspecified; M06.9 Rheumatoid arthritis, unspecified; I10 Essential (primary) hypertension; F32.A Depression, unspecified; E66.812 Obesity, class 2; E78.00 Pure hypercholesterolemia, unspecified; M51.27 Other intervertebral disc displacement, lumbosacral region; M51.16 Intervertebral disc disorders with radiculopathy, lumbar region; M48.062 Spinal stenosis, lumbar region with neurogenic claudication; I95.9 Hypotension, unspecified; Z68.39 Body mass index [BMI] 39.0-39.9, adult; Z79.01 Long term (current) use of anticoagulants; Z79.84 Long term (current) use of oral hypoglycemic drugs; Z79.899 Other long term (current) drug therapy; Z87.891 Personal history of nicotine dependence; Z86.711 Personal history of pulmonary embolism; Z86.718 Personal history of other venous thrombosis and embolism
CPT/HCPCS: 36415; 36416; 73502; 80048; 82962; 82985; 83735; 85025; 85610; 86850; 86900; 86901; 87081; 88304; 88305; 88311; 94668; 97162; 97166; 97530; 97535; C1776; A4216; J2405

== ENCOUNTER 2025-03-27 13:30 | Inpatient (IN) | payer MEDICARE, OTHER, SELFPAY ==
[2025-03-27 13:57] VITALS: BMI 38.8
--- NOTE | 2025-03-27 14:17 | VDLE_ITS ---
Reason For Study Reason For Study: Bilateral leg pain RIGHT LEFT GSV is normal. GSV is normal. Chronic SVT/wall thickening noted Rt SFJ. CFV is compressible, spontaneous, phasic, competent, CFV is compressible, spontaneous, phasic, competent and demonstrates normal augmentation. and demonstrates normal augmentation. FV is compressible, spontaneous, phasic, competent FV is compressible, spontaneous, phasic, competent and demonstrates normal augmentation. and demonstrates normal augmentation. POP V is compressible, spontaneous, phasic, competent POP V is compressible, spontaneous, phasic, competent and demonstrates normal augmentation. and demonstrates normal augmentation. T/P Trunk is compressible. T/P Trunk is compressible. PTV is compressible. PTV is compressible. LT PerV is compressible. RT PerV is compressible. Procedure This is a venous duplex using B-mode, color flow and spectral Doppler. Exam performed portable in patient room. A preliminary report was called and/or faxed to Dr. Zavala. VL/Venous Duplex US - Sean Extrem Interpretation Summary Deep veins of the bilateral lower extremities are patent and compressible segme ntally. There is no evidence of bilateral lower extremity deep vein thrombosis. The bilateral great saphenous veins appea r patent and compressible segmentally. Ordering Physician: Farida Zavala Referring Physician: Meir Zepeda Performed By: Ludmila Hernandez RVT
[2025-03-27 14:47] VITALS: BP 145/50; PULSE 92; RESP 17; TEMP 37.3; O2SAT 92; BMI 38.8
--- NOTE | 2025-03-27 14:53 | PCM.HP.STD ---
[facility] - General General Date of Admission: 03/27/25 Date of Service: 03/27/25 Chief Complaint: debility due to R DUNCAN HPI Narrative ART BLUE, is a 69 YO F with a PMH of DM II, RA (RF and CCP negative in the past), fibromyalgia, chronic low back pain with radicular pain, HTN, HLD, tobacco dependence in remission, DVT/PE (both were after surgeries when she was sedentary), chronic anticoagulation with warfarin, RLS, Anxiety/depression, STEFFI (compliant with CPAP....follows with Dr. Pereyra), Hx of iron deficiency, peripheral neuropathy, nephrolithiasis, glaucoma, history of a gastric ulcer, GERD, history of [place]-en-Y gastric bypass, history of an IVC filter, small vessel cerebrovascular disease, right frontal convexity meningioma found on MRI, IgG monoclonal protein (lambda type) in the past (follows with Dr. Mckenzie), remote lacunar infarcts, cervical foraminal stenosis/spinal stenosis, lumbar canal stenosis/foraminal narrowing, positive atypical p-ANCA, diverticulosis, fatty infiltration of the liver, adrenal nodules/adenomas, multinodular goiter and morbid obesity who underwent a R DUNCAN on 03/24/[address] Terry. Post op course was remarkable for confusion (related to Oxycodone) and hypotension. She was transferred to the acute inpt rehab unit at [facility] on 03/27/25 for 3 hours of therapy daily to restore function/independence at or near her level prior to the DUNCAN. Pt tells me that she has been on Warfarin for many years. She has had 2 VTE events in the past (in 2006 after [place]-en-Y gastric bypass and in 2014 after panniculectomy )....... PE and DVT R upper thigh/groin. Both events occurred after surgery. She denies ever being told she has a hypercoagulable disorder. She has an IVC filter. INR's in the EMR since October of 2024 have all been WNL? She tells me that Dr. Zepeda has been managing the AC. If both events were provoked why is she still on anticoagulation? Will get records from Dr. Zepeda. [facility] Medical History (Updated 03/27/25 @ 16:[address] Farida Zavala DO) STEFFI (obstructive sleep apnea) Diabetes mellitus, type 2 Physical debility Diverticulosis Presence of IVC filter Chronic anticoagulation Iron deficiency Class II obesity Ambulates with cane Fatty liver Restless legs Syncope Dietary restriction Chronic constipation Gastric reflux History of pain when walking History of GI bleed History of pneumonia Fibromyalgia Rheumatoid arthritis Post-menopausal Wears glasses Depression Anemia Pulmonary embolism DVT (deep venous thrombosis) CPAP (continuous positive airway pressure) dependence Former smoker Shortness of breath on exertion Leg cramps History of edema History of stress test (~04/06/20) Hypoxia History of iron deficiency Claustrophobia Mild cognitive impairment Peripheral vestibulopathy Encounter for screening for COVID-19 Cerebrovascular small vessel disease Cerebral convexity meningioma Neuropathy High cholesterol Glaucoma Cervical radiculitis HTN (hypertension) Renal calculus, bilateral Home Medications ?Medication ?Instructions ?Recorded ?Last Taken ?Type ferrous sulfate 325 mg (65 mg 325 mg PO BID SUPPLEMENT 02/11/14 03/23/25 History iron) tablet multivitamin with folic acid 400 1 tab PO DAILY SUPPLEMENT 02/11/14 03/23/25 History mcg tablet trazodone 50 mg tablet 100 mg PO QHS SLEEP 02/11/14 03/23/25 History biotin 10,000 mcg capsule 10,000 mcg PO DAILY HAIR LOSS 05/30/21 03/23/25 History calcium 600 mg (as 1 cap PO BID SUPPLEMENT 05/30/21 03/23/25 History carbonate)-vitamin D3 12.5 mcg (500 unit) capsule (Calcium with Vit D3) tramadol 50 mg tablet 50 mg PO Q6H PRN Pain Score 6-10 01/25/23 Unknown Rx #25 tabs hydroxychloroquine 200 mg tablet 200 mg PO BID OA 01/18/24 03/24/25 History metformin 1,000 mg tablet 1,000 mg PO BID DIABETES 10/06/24 03/23/25 History warfarin 5 mg tablet (Jantoven) 10 mg PO SUTUWETHSA BLOOD THINNER 10/06/24 03/19/25 History duloxetine 30 mg capsule,delayed 30 mg PO QPM DEPRESSION #90 caps 01/29/25 03/23/25 Rx release duloxetine 60 mg capsule,delayed 60 mg PO QAM DEPRESSION #90 caps 01/29/25 03/24/25 Rx release (Cymbalta) methotrexate sodium 2.5 mg tablet 20 mg PO SA OA 02/25/25 02/21/25 History Held on 03/27/25. Instructions: Hold until after 2 weeks postop visit CPAP - Continuous Positive Airway 03/10/25 Unknown History Pressure([facility] INFORMATIONAL USE ONLY) omeprazole 20 mg capsule,delayed 20 mg PO DAILY GERD 03/10/25 03/24/25 History release ropinirole 2 mg tablet 2 mg PO 1700 RLS 03/10/25 03/23/25 History ropinirole 2 mg tablet 2 mg PO QHS RLS 03/10/25 03/23/25 History tizanidine 4 mg tablet 8 mg PO QHS muscle spasticity/leg 03/10/25 03/23/25 History restlessness warfarin 4 mg tablet 8 mg PO MOFR BLOOD THINNER 03/10/25 03/19/25 History acetaminophen 500 mg tablet 1,000 mg PO Q8H pain 03/27/25 Unknown History ascorbic acid (vitamin C) 1,000 mg 1 g PO 1200 supplement 03/27/25 Unknown History tablet (C-1000) enoxaparin 40 mg/0.4 mL 40 mg (0.4 mL) subcut DAILY #4 mL 03/27/25 Unknown Rx subcutaneous syringe (Lovenox) gabapentin 100 mg capsule 200 mg PO Q8H neuropathy 03/27/25 Unknown History Allergy/AdvReac Type Severity Reaction Status Date / Time amoxicillin Allergy Mild rash Verified 03/24/25 06:17 atorvastatin AdvReac Mild myalgiias Verified 03/24/25 06:17 levofloxacin (From Levaquin) AdvReac Unknown Nausea Verified 03/24/25 06:17 Family History Mother Heart disease Hypertension Father Heart disease CVA (cerebral vascular accident) Brother Cancer Surgical History (Updated 03/27/25 @ 15:[address] Farida Zavala DO) Hx of superior vena cava filter placement History of cystoscopy Status post biopsy of thyroid gland (~08/2019) History of colonoscopy (~2014) History of dilation and curettage History of carpal tunnel release of both wrists Status post panniculectomy History of [place]-en-Y gastric bypass History of umbilical hernia repair Social History (Updated 03/27/25 @ 15:[address] Farida Zavala DO) household members: spouse housing: house number of children: 1 Smoking Status: Former smoker Tobacco: How many years used: 40 Electronic Cigarette Use: not used how long ago did patient quit smoking: about a year and half ago second hand exposure: No alcohol intake: current alcohol intake frequency: holidays/special occasions only substance use type: does not use what type of physical activity do you participate in: none do you feel safe at home: Yes Homelessness:: Sheltered Prior Cardiac Testing/Procedures Prior Cardiac Testing/Procedures: Stress Test (March 2020 negative for ischemia, gated nuclear ejection fraction 78%) ROS Constitutional Constitutional: Reports change in weight, fatigue, weakness and other Details: She had to lose weight prior to surgery for total hip replacement. ; Denies anorexia, chills, fever(s) or night sweats Eyes Eyes: Denies blurry vision, change in vision, eye pain or loss of vision ENT HEENT: Denies abnormal hearing, dysphagia, headache(s), hearing loss, nasal congestion or sore throat Cardiovascular Cardiovascular: Reports dyspnea on exertion and lightheadedness; Denies chest pain, edema, orthopnea, palpitations, paroxysmal nocturnal dyspnea or syncope Respiratory/Chest Respiratory/Chest: Reports shortness of breath with exertion; Denies cough, dyspnea, hemoptysis, shortness of breath at rest or wheezing Gastrointestinal Gastrointestinal: Reports constipation; Denies abdominal pain, diarrhea, dyspepsia, heartburn, hematemesis, hematochezia, nausea or vomiting Genitourinary Genitourinary: Denies dysuria, hematuria, nocturia, urinary frequency, urinary hesitancy, urinary incontinence or urinary urgency Musculoskeletal Musculoskeletal: Reports back pain, difficulty walking, joint pain, numbness, radiating pain into limb and tingling; Denies joint swelling or neck pain Integumentary Integumentary: Reports alopecia; Denies jaundice or rash Neurologic Neurologic: Reports confusion, dizziness, paresthesias, radicular pain, restless legs and other Details: Confusion was due t Oxycodone recently ; Denies disequilibrium, focal weakness, headache(s), seizures or tremor(s) Psychiatric Psychiatric: Reports anxiety and depression; Denies homicidal ideation, mood swings, panic attacks, suicidal ideation or visual hallucinations Endocrine Endocrinology: Denies change in body appearance, polydipsia or polyuria Hematologic/Lymphatic Hematologic/Lymphatic: Reports easy bleeding and easy bruising; Denies lymphadenopathy Allergic/Immunologic Allergic/Immunologic: Reports rhinitis; Denies eczemia or asthma Physical Exam Const alert, oriented x3 and no apparent distress General Appearance: cooperative and well developed HEENT normocephalic, head/scalp atraumatic and hearing grossly normal bilaterally HEENT Narrative: Mucous membranes are very dry Eyes PERRL, EOMs intact bilaterally, conjunctivae normal and no scleral icterus Eyes Narrative: No discharge from the eyes General Eye: normal appearance of both eyes Neck supple, no JVD and no carotid bruits Neck Narrative: Brisk carotid upstroke with good pulse volume. Chest Chest: symmetrical chest wall rise Resp normal respiratory effort and clear to auscultation bilaterally Resp Narrative: Breath sounds are mildly diminished which may be due to body habitus. No wheezing and no crackles. Not tachypneic. Effort and Inspection: able to speak in complete sentences Cardio regular rhythm, no murmurs, no rub and no gallops Cardio Narrative: Resting heart rate is in the 90s. No ectopy GI normal to inspection, nondistended, normoactive bowel sounds, soft to palpation and non-tender GI Narrative: Bowel sounds are very active but not hyperactive. No guarding with palpation. Bladder / Kidney Exam: No catheter in place Back/Spine no CVA tenderness Extremity no clubbing, cyanosis or edema Extremity Narrative: She has pain with compression of the left calf and with dorsiflexion. Has some pain in the R thigh and in the R buttock and describes it as burning. She has numbness of her feet in a stocking glove distribution. The pain in the left foot and calf is long standing. Both feet are warm to the touch. Pain in the L calf increases with weight bearing and prolonged standing and goes away when she sits. Peripheral Pulses: Yes pulses 2+ throughout Skin no jaundice General Skin Exam: no breakdown Rashes: no rashes Neuro oriented x3, CN's II-XII intact bilaterally and moves all extremities Psych mental status grossly normal, thought process normal, cooperative, affect normal, speech normal, denies hallucinations, denies homicidal ideation and denies suicidal ideation Appearance: appropriate and well kempt Attitude: calm Activity / Motor Behavior: appropriate eye contact Assessment & Plan Assessment/Plan (1) Physical debility: (2) S/P total right hip arthroplasty: (3) Primary osteoarthritis of right hip: (4) Acute blood loss as cause of postoperative anemia: (5) Chronic anticoagulation: (6) DVT (deep venous thrombosis): QUALIFIERS: DVT location: lower extremity Affected thrombotic vein of extremity: unspecified lower extremity proximal vein Chronicity: unspecified Laterality: right Qualified Code(s): I82.4Y1 - Acute embolism and thrombosis of unspecified deep veins of right proximal lower extremity PLAN: 2014 following panniculectomy (7) Pulmonary embolism: QUALIFIERS: Pulmonary embolism type: unspecified Chronicity: unspecified Acute cor pulmonale presence: unspecified Qualified Code(s): I26.99 - Other pulmonary embolism without acute cor pulmonale PLAN: 2006 following [place]-en-Y gastric bypass (8) Presence of IVC filter: (9) Spinal stenosis of lumbar region with neurogenic claudication: PLAN: Follows with Dr. Johnson (10) Lumbar radiculopathy: (11) Fibromyalgia: (12) HTN (hypertension): QUALIFIERS: Hypertension type: primary hypertension Qualified Code(s): I10 - Essential (primary) hypertension (13) Diabetes mellitus, type 2: QUALIFIERS: Diabetes mellitus custodial insulin use: without custodial use Diabetes mellitus complication status: with neurologic complications Diabetes mellitus complication detail: with polyneuropathy Qualified Code(s): E11.42 - Type 2 diabetes mellitus with diabetic polyneuropathy (14) Rheumatoid arthritis: QUALIFIERS: Rheumatoid arthritis location: unspecified site Rheumatoid factor presence: without rheumatoid factor Qualified Code(s): M06.00 - Rheumatoid arthritis without rheumatoid factor, unspecified site (15) Class II obesity: (16) Fatty liver: (17) STEFFI (obstructive sleep apnea): (18) COPD (chronic obstructive pulmonary disease): QUALIFIERS: COPD type: unspecified COPD Qualified Code(s): J44.9 - Chronic obstructive pulmonary disease, unspecified (19) Elevated serum immunoglobulin free light chain level: PLAN: Follows with Dr. Mckenzie. (20) Restless legs syndrome: PLAN: Follows with Dr. Rasmussen. (21) Polyneuropathy: PLAN: Plan PLAN PT for gait stability OT for ADL's Analgesics as needed Bowel protocol Fall precautions Assess for Anxiety/Depression GI prophylaxis -pantoprazole DVT prophylaxis with currently on Lovenox 40 mg subcu daily. Has been restarted on Warfarin but, I am unclear why she is even on chronic anticoagulation. She has had 2 events in the past, 2006 and 2014, and both were post-op..... 1 after [place]-en-Y gastric bypass and the other after panniculectomy Follow up with Dr. Terry, PCP, rheumatology, Dr. Mckenzie, Dr. Rasmussen, Pain management following DC from [facility] AM lab including CMP, CBC, Mag, HGBA1C, ESR, CRP and Phos 80 Minutes spent reviewing past diagnostic tests, lab results, vital sign trends, medical history, medications, all additional paperwork sent by the previous hospital, and ordering medications, examining the the patient and completing documentation. Charges/Coding Visit Charges Inpatient E&M: 42762 Init Hosp L3
[2025-03-27 15:40] VITALS: BP 137/61; BP 146/64; BP 171/76
[2025-03-27] MEDS: Warfarin (PBKC) 4 MG Tablet 8 MG PO (16:46)
--- NOTE | 2025-03-27 17:00 | PCM.RU.PYE ---
Admission Information Primary Diagnosis:: Debility secondary to right total hip arthroplasty Status Changes from Prescreening?: No changes Identified Actual Problem List:: Falls, Skin Intergrity, Pain, ALteration in Cmfrt, Bowel, Constipation, Mobility Impaired, Self Care Deficit, Fluid Change-Dehydration and Alteration-Leisure Activ. Potential Problem List:: DVT, Bleeding, Infection, UTI, Aspiration, Falls, Skin Integrity and Depression Risk of Complications DVT: LMWH, TEJAS Hose and - (Transitioning to warfarin) Bleeding: Monitor Lab Values, Nursing to Teach Precautions for anti-coagulation therapy., Wound, if applicable, to be assessed every shift. and Stroke patients assessed for lethargy or change in status. Infection: Clinical Staff to Monitor for S/S of infection: and S/S of infection include fever, redness, warmth, etc. Urinary Tract Infection: Monitor for frequency, burning, discomfort, or incontinence. and Nursing will obtain urine sample for urinalysis and C&S when ordered. Aspiration: Clinical staff will monitor for coughing, drooling, congestion., Speech will evaluate swallowing and dsyphasia. and Nursing will monitor patient swallowing during meals. Falls: Patient will be evaluated for Fall Precautions and Patient will be placed on Fall Precautions as indicated per protocol. Skin Breakdown: Nursing will assess skin daily using assessment tool. and Nursing will place on Skin Breakdown Precautions as indicated. Pain: Clinical staff will assess patient's pain level per protocol., Medications will be given, if needed, and the pain level reassessed. and Other methods: Massage, distraction, decrease stimulus, etc. used PRN. Plan of Care Patient requires physician specializing in physical medicine and rehab oversight to provide close medical supervision of rehab issues including: Pain Management, Sleep Problems, Bowel and Bladder, Medical and co-morbidity Management, DVT prophylaxis, Rehabilitation Leadership and Coordination of treatment team Patient needs Physical Therapy: For a minimum of 1 hour and At least 5 out of 7 days Patient needs Physical Therapy to improve:: Mobility, Strengthening, Transfers, Stretching, ROM, Endurance, Stairs, Gait and Balance Patient needs Occupational Therapy: For a minimum of 1 hour and At least 5 out of 7 days Patient needs Occupational Therapy to improve ADL's incl.: Eating, Grooming, Bathing, Dressing, Toileting, Toilet transfers, Community Reintegration, Higher functioning activities, Household tasks, Adaptive Equipment, Splinting and Other activities as determined Patient requires 24/7 Rehabilitation Nursing for: Pain Issues, Identifying and preventing risk factors, Monitoring and reporting current medical conditions, Assisting with ambulation, transfer, and all ADL's, Teaching patients about disease process and medications, Family teaching, Providing safe environment, Bowel and Bladder Issues, Skin integrity and Medication Management Patient needs Numerical Control Lathe Operator/ Case Management for: Discharge Planning, Arranging Home Equipment or Services and Family Interventions Patient needs Dietary and Nutrition Services for: Adequate Nutrition, Nutritional Supplements and Nutritional Education Goals Goals Patient will remain: free from falls Patient will perform eating at: MOD I level of assist. Patient will perform bed mobility at: MOD I level of assist. Patient will complete transfers from bed to chair at: MOD I level of assist. Patient will ambulate: - (150 feet with least restrictive device at modified) Patient will complete upper body dressing at: MOD I level of assist. Patient will complete lower body dressing at: MOD I level of assist. (Modify using adaptive equipment as needed) Patient will complete toilet transfer at: MOD I level of assist. Patient will complete toileting at: MOD I level of assist. Patient will perform bathing at: MOD I level of assist. (Using adaptive equipment as needed) Patient will perform Tub/Shower transfer at: - (Contact-guard assist) Patient will complete grooming at: MOD I level of assist. Patient will complete home management skills at: MOD I level of assist. Patient will achieve: - (2 steps with a straight cane at supervision) Patient will have pain level of: of 3 or less Patient's skin will: remain intact Patient will receive: adequate nutrition. Discharge Planning Pt Prognosis for Sig. Practical Improv. w/in Reasonable Time: Good Estimated Length of stay (days): 14 Anticipated D/C Destination: Home with Outpt Therapy Was Preadmission Assessment Accurate?: Yes
[2025-03-27 18:00] VITALS: BP 143/65; PULSE 95; RESP 18; TEMP 37.2; O2SAT 96
[2025-03-27] MEDS: Senna/Docusate Sodium 1 Tablet 2 TABLET PO (20:40)
[2025-03-27 21:10] VITALS: BP 156/64; PULSE 90; RESP 18; TEMP 36.6; O2SAT 95
--- NOTE | 2025-03-28 03:53 | NURSING ---
Pt states she is having r groin pain. Describes as stabbing pain. Assisted pt up to bathroom. Pain at 8/10. Medicated with oxycodone 5 mg po for breakthrough pain and set up polar care for pt. Pt resting quietly after interventions.
[2025-03-28 06:00] VITALS: BP 143/57; PULSE 78; RESP 17; TEMP 36.7
[2025-03-28 07:48] LABS: Albumin, Serum 3.2 g/dL (3.4-4.8); BUN 16 mg/dL (4-19); BUN/Creat Ratio 25.5 RATIO (10-20); Estimated Creatinine Clearance 79.79 ml/min (50-250); Glucose 155 mg/dL (70-99)
[2025-03-28 07:49] LABS: AST(SGOT) 17 U/L (<=31); Alanine Aminotransfer ALT/SGPT 15 U/L (<=34); Alkaline Phosphatase 60 U/L (35-104); Anion Gap 10 (5-15); Calcium,Total 8.6 mg/dL (7.6-11.0); Carbon Dioxide 27.1 mmol/L (21.0-32.0); Chloride 101 mmol/L (98-108); Globulin 3.3 g/dL (2.2-4.2); Potassium 3.8 mmol/L (3.3-5.1)
[2025-03-28 07:51] LABS: Prothrombin Time (Protime)PT. 20.7 SECONDS (11.7-14.9)
[2025-03-28 07:54] LABS: CRP 186.00 mg/L (0.0-3.0); Magnesium 2.2 mg/dL (1.5-2.2)
[2025-03-28 08:07] LABS: Hematocrit 29.3 % (37-47); Hemoglobin 9.6 g/dL (12.0-15.0); Immature Granulocytes Count 0.050 X10^3/uL (0.0-0.0); Mean Corp Hgb Conc 32.8 g/dL (32-36); Mean Corpuscular Volume 91.3 fL (81-99); Mean Platelet Vol. 9.8 fl (6.2-12.0); NRBC Flagged by Analyzer 0 % (0-5); Platelet Count 328 K/mm3 (150-450); RBC Distribution Width CV 13.7 % (11.6-14.6); RBC Distribution Width SD 46.0 fl (35.1-43.9); Red Blood Count 3.21 M/mm3 (4.2-5.4); White Blood Count 8.5 K/mm3 (4.4-11.0)
[2025-03-28] MEDS: Senna/Docusate Sodium 1 Tablet 2 TABLET PO ×2 (08:47→21:05)
[2025-03-28 09:00] VITALS: BP 105/60; PULSE 72
[2025-03-28] MEDS: Warfarin (PBKC) 5 MG Tablet 10 MG PO (16:54)
[2025-03-28 18:00] VITALS: BP 129/66; PULSE 89; RESP 16; TEMP 36.3; O2SAT 97
[2025-03-28 21:05] VITALS: BP 143/89; PULSE 78; RESP 17
[2025-03-28 21:11] VITALS: BP 143/89; PULSE 78
[2025-03-29] VITALS: PULSE 84; PULSE 88; RESP 16; RESP 18; O2SAT 98; O2SAT 99
[2025-03-29 04:58] VITALS: BP 147/84; PULSE 94; RESP 17; TEMP 36.9; O2SAT 96
[2025-03-29] MEDS: Senna/Docusate Sodium 1 Tablet 2 TABLET PO ×2 (07:36→21:33)
[2025-03-29 08:00] VITALS: BP 104/60; PULSE 82
[2025-03-29 10:03] LABS: Prothrombin Time (Protime)PT. 24.3 SECONDS (11.7-14.9)
[2025-03-29] MEDS: Warfarin (PBKC) 5 MG Tablet 10 MG PO (17:53)
[2025-03-29 18:00] VITALS: BP 110/72; PULSE 74; RESP 17; TEMP 36.2; O2SAT 96
[2025-03-29 20:15] VITALS: PULSE 74; RESP 16; O2SAT 96
[2025-03-30 06:00] VITALS: BP 151/64; PULSE 78; RESP 16; TEMP 36.6; O2SAT 99
--- NOTE | 2025-03-30 08:00 | PCM.PROGNOTE ---
Subjective Subjective Afebrile VSS -blood pressure over the weekend ranged from 105/60 to 143/89. The heart rate is within normal limits. Maintaining appropriate oxygen saturation on RA Oral intake - FOOD good FLUIDS good The blood sugar record was reviewed. All blood sugars are under 200 with no hypoglycemia. Discussed with nursing - no problems that need addressed Reviewed the THERAPY notes Medication list reviewed. Had Tramadol yesterday TID (75mg) and also took 3 doses of Oxycodone 5 mg. INR yesterday was 2.1 and Lovenox was discontinued. All lab done over the weekend was personally reviewed. Hemoglobin is 9.6 and the white blood cell count was normal. The differential was unremarkable. Platelets are within normal limits. ESR was 68 and the CRP is markedly elevated at 186. Sodium was 138 and the potassium was 3.8. BUN is 16 with a creatinine of 0.63 which is stable. Hemoglobin A1c is 6.8. Calcium, phosphorus and magnesium are all within normal limits. LFTs are normal. CRP in the past has been as high as 278 and that was in January 2023. At that same time the ESR was 36. EM and RA were negative at that time. Anti-CCP antibodies were also negative. She has never had a hypercoagulable W/U at [facility]. ANCA c and p negative in the past. Not sleeping well at night.......tells me that she is getting up frequently to urinate. Denies lightheadedness, chest pain, shortness of breath at rest, cough, nausea/vomiting/abdominal pain, dysuria and change in the chronic L calf pain. She is complaining of dry mouth. Objective Data Objective Data Vital Signs: Vital Signs Temp Pulse Resp BP Pulse Ox O2 Del Method FiO2 97.8 F 78 16 151/64 H 99 Room Air 96 03/30/25 06:00 03/30/25 06:00 03/30/25 06:00 03/30/25 06:00 03/30/25 06:00 03/30/25 06:00 03/27/25 17:28 Oxygen Delivery Method Room Air Weight: 233 lb 0.458 oz Body Mass Index (BMI) 38.8 Intake & Output: Intake and Output for Last 24 Hours 03/28/25 03/29/25 03/30/25 23:59 23:59 23:59 Intake Total 1880 / 1880 1730 / 1730 720 / 720 Output Total 4275 / 4275 2400 / 2800 850 / 850 Balance -2395 / -2395 -670 / -1070 -130 / -130 Lab / Micro Data 03/28/25 06:48 03/28/25 06:48 Labs: Laboratory Results - last 24 hr 03/29/25 08:08: PT 24.3 H, INR 2.1 03/29/25 11:56: POC Glucose 149 H 03/29/25 16:19: POC Glucose 125 H 03/29/25 21:01: POC Glucose 187 H 03/30/25 06:26: POC Glucose 136 H Social Homelessness:: Sheltered Physical Exam Const alert, oriented x3 and no apparent distress Constitutional Narrative: Sitting in the recliner at the bedside. General Appearance: cooperative HEENT Mouth: dry mucous membranes Resp normal respiratory effort and clear to auscultation bilaterally Cardio regular rate, regular rhythm and no gallops Cardio Narrative: No ectopy GI normal to inspection, nondistended, normoactive bowel sounds, soft to palpation and non-tender Extremity Extremity Narrative: TEJAS hose are in place General Extremity: Negative for edema Skin Rashes: no rashes Assessment & Plan Assessment/Plan (1) Physical debility: (2) S/P total right hip arthroplasty: (3) Primary osteoarthritis of right hip: (4) Acute blood loss as cause of postoperative anemia: (5) Chronic anticoagulation: (6) DVT (deep venous thrombosis): QUALIFIERS: DVT location: lower extremity Affected thrombotic vein of extremity: unspecified lower extremity proximal vein Chronicity: unspecified Laterality: right Qualified Code(s): I82.4Y1 - Acute embolism and thrombosis of unspecified deep veins of right proximal lower extremity (7) Pulmonary embolism: QUALIFIERS: Pulmonary embolism type: unspecified Chronicity: unspecified Acute cor pulmonale presence: unspecified Qualified Code(s): I26.99 - Other pulmonary embolism without acute cor pulmonale (8) Presence of IVC filter: (9) Spinal stenosis of lumbar region with neurogenic claudication: (10) Lumbar radiculopathy: (11) Fibromyalgia: (12) HTN (hypertension): QUALIFIERS: Hypertension type: primary hypertension Qualified Code(s): I10 - Essential (primary) hypertension (13) Diabetes mellitus, type 2: QUALIFIERS: 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 Continue therapy 2. Increase tramadol to 100 mg 3 times daily and continue as needed oxycodone 3. Increase lisinopril to 10 mg daily. 4. Change the dosing of the duloxetine to 90 mg every morning rather than 60 in the morning and 30 at at bedtime. 5. Increase metformin to 750 twice daily 6. When she is back on methotrexate would recommend MTX level be drawn.......with the hx of gastric bypass she may not be absorbing methotrexate. 7. Check a lipid panel in the AM. The last LDL we have on record was from 2021 and it was 118. With history of diabetes it should be 70 or less. 8. Continue warfarin because she has had 2 prior VTE events and both were after surgeries. Will recommend that she follow-up with Dr. Mckenzie in the future for a hypercoagulable workup Charges/Coding Visit Charges Inpatient E&M: 76923 Subs Hosp L1
[2025-03-30 08:15] VITALS: O2SAT 98
[2025-03-30 09:18] LABS: Prothrombin Time (Protime)PT. 25.7 SECONDS (11.7-14.9)
[2025-03-30] MEDS: Saliva Substitute 237 ML BOTTLE 15 ML MUCOUS MEM ×2 (14:07→20:03)
[2025-03-30] MEDS: Warfarin (PBKC) 4 MG Tablet 8 MG PO (16:55)
[2025-03-30 17:40] VITALS: BP 152/75; PULSE 89; RESP 18; TEMP 36.4; O2SAT 97
[2025-03-30] MEDS: Senna/Docusate Sodium 1 Tablet 2 TABLET PO (20:07)
[2025-03-30 20:26] VITALS: O2SAT 96
[2025-03-31 06:00] VITALS: BP 153/71; PULSE 78; RESP 16; TEMP 36.3; O2SAT 97
[2025-03-31] MEDS: Saliva Substitute 237 ML BOTTLE 15 ML MUCOUS MEM (06:35)
[2025-03-31 07:14] VITALS: O2SAT 93
[2025-03-31 07:39] LABS: Hematocrit 29.3 % (37-47); Hemoglobin 9.8 g/dL (12.0-15.0)
[2025-03-31 07:51] LABS: Cholesterol 145 mg/dL (<=200); Low Density Lipoprotein Calc. 77 mg/dL; Triglycerides 134 mg/dL; Very Low Density Lipoprotein 27 mg/dL (5-40); cholesterol:hdl ratio screen 3.52
[2025-03-31] MEDS: Senna/Docusate Sodium 1 Tablet 2 TABLET PO ×2 (08:20→20:48)
[2025-03-31 08:57] LABS: Prothrombin Time (Protime)PT. 28.0 SECONDS (11.7-14.9)
--- NOTE | 2025-03-31 14:14 | PCM.PROGNOTE ---
Subjective Subjective Afebrile Vital signs stable The blood sugar record was reviewed and all blood sugars are in the 200s. Fasting was a little on the high side today but she had a lot of of kettle corn last night. She denies waking up with night sweats or nausea. She is c/o pain in the R buttock, R groin, R anterior and lateral thigh and also has persistent pain in the Left calf/foot. Tells me that she slept better last night since we are giving the Duloxetine all in the morning now. All lab done this morning was personally reviewed. Triglycerides of 134 and the total cholesterol is 145. LDL is 77 and the HDL is 41. INR today is 2.5. She is sleeping better at night since we changed the dosing on the duloxetine. Denies chest pain, shortness of breath, hemoptysis, lightheadedness, nausea/vomiting/heartburn/abdominal pain, dysuria. Objective Data Objective Data Vital Signs: Vital Signs Temp Pulse Resp BP Pulse Ox O2 Del Method FiO2 97.4 F L 78 16 153/71 H 93 Room Air 96 03/31/25 06:00 03/31/25 06:00 03/31/25 06:00 03/31/25 06:00 03/31/25 07:14 03/31/25 07:14 03/27/25 17:28 Oxygen Delivery Method Room Air Weight: 233 lb 0.458 oz Body Mass Index (BMI) 38.8 Intake & Output: Intake and Output for Last 24 Hours 03/29/25 03/30/25 03/31/25 23:59 23:59 23:59 Intake Total 1730 / 1730 2520 / 2520 240 / 240 Output Total 2400 / 2800 1850 / 2050 700 / 700 Balance -670 / -1070 670 / 470 -460 / -460 Lab / Micro Data 03/31/25 07:20 03/28/25 06:48 Labs: Laboratory Results - last 24 hr 03/30/25 16:58: POC Glucose 150 H 03/30/25 21:09: POC Glucose 136 H 03/31/25 06:33: POC Glucose 191 H 03/31/25 07:20: Hgb 9.8 L, Hct 29.3 L, PT 28.0 H, INR 2.5, Triglycerides 134, Cholesterol 145, LDL Cholesterol, Calc 77, VLDL Cholesterol 27, HDL Cholesterol 41, Cholesterol/HDL Ratio 3.52 Social Homelessness:: Sheltered Physical Exam Const alert and no apparent distress Constitutional Narrative: Sitting in the recliner at the bedside. General Appearance: cooperative HEENT Mouth: dry mucous membranes Resp normal respiratory effort and clear to auscultation bilaterally Cardio regular rate, regular rhythm and no gallops Cardio Narrative: No ectopy GI normal to inspection, nondistended, normoactive bowel sounds, soft to palpation and non-tender Extremity Extremity Narrative: TEJAS hose are in place. Tenderness of the left calf has not changed and this is chronic and I suspect radicular. General Extremity: Negative for edema Skin Rashes: no rashes Assessment & Plan Assessment/Plan (1) Physical debility: (2) S/P total right hip arthroplasty: (3) Primary osteoarthritis of right hip: (4) Acute blood loss as cause of postoperative anemia: (5) Chronic anticoagulation: (6) DVT (deep venous thrombosis): QUALIFIERS: DVT location: lower extremity Affected thrombotic vein of extremity: unspecified lower extremity proximal vein Chronicity: unspecified Laterality: right Qualified Code(s): I82.4Y1 - Acute embolism and thrombosis of unspecified deep veins of right proximal lower extremity (7) Pulmonary embolism: QUALIFIERS: Pulmonary embolism type: unspecified Chronicity: unspecified Acute cor pulmonale presence: unspecified Qualified Code(s): I26.99 - Other pulmonary embolism without acute cor pulmonale (8) Presence of IVC filter: (9) Spinal stenosis of lumbar region with neurogenic claudication: (10) Lumbar radiculopathy: (11) Fibromyalgia: (12) HTN (hypertension): QUALIFIERS: Hypertension type: primary hypertension Qualified Code(s): I10 - Essential (primary) hypertension (13) Diabetes mellitus, type 2: QUALIFIERS: 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 Continue therapy 2. Increase gabapentin to 300 mg 3 times daily. 3. Recheck PTT/INR on Sunday 4. Blood pressure is a little high and this may be related to discontinuation of hydrochlorothiazide. She was dehydrated at admission with complaints of lightheadedness. Orthostatics were negative. Consider restarting hydrochlorothiazide at 12.5 mg daily. Charges/Coding Visit Charges Inpatient E&M: 63880 Subs Hosp L1
[2025-03-31] MEDS: Warfarin (PBKC) 5 MG Tablet 10 MG PO (16:33)
[2025-03-31 18:00] VITALS: BP 144/60; PULSE 102; RESP 17; TEMP 37.1; O2SAT 95
[2025-03-31 20:35] VITALS: PULSE 102; RESP 17; O2SAT 95
[2025-04-01] MEDS: Saliva Substitute 237 ML BOTTLE 15 ML MUCOUS MEM ×2 (05:26→16:49)
[2025-04-01 06:00] VITALS: BP 144/56; PULSE 78; RESP 18; TEMP 36.7; O2SAT 97; BMI 38.8
[2025-04-01] MEDS: Senna/Docusate Sodium 1 Tablet 2 TABLET PO ×2 (07:49→20:42)
[2025-04-01 08:15] VITALS: O2SAT 94
[2025-04-01] MEDS: Warfarin (PBKC) 5 MG Tablet 10 MG PO (16:46)
[2025-04-01 17:29] VITALS: BP 122/66; PULSE 80; RESP 16; TEMP 36.6; O2SAT 99
[2025-04-01 20:35] VITALS: PULSE 80; RESP 16; O2SAT 99
[2025-04-02 05:00] VITALS: BP 139/57; PULSE 74; RESP 18; TEMP 36.8; O2SAT 98
[2025-04-02 08:15] VITALS: O2SAT 98
--- NOTE | 2025-04-02 08:17 | PN_ITS ---
Subjective Subjective Cris was seen on team rounds today. Her Neymar was present in the room. All questions were answered to their satisfaction. Afebrile VSS - Maintaining appropriate oxygen saturation on RA Oral intake - FOOD good FLUIDS good The blood sugar record was reviewed. Blood sugars are under excellent control with none greater than 200 and no hypoglycemia. Discussed with nursing - no problems that need addressed Reviewed the THERAPY notes Medication list reviewed. Still having some burning in the R buttocks and groin but, more tolerable and does not want to go up on the Gabapentin. Denies CP, SOB, N/V/Abd pain, dysuria. Sleeping better at night. Feels rested in the AM. Denies lightheadeness. Objective Data Objective Data Vital Signs: Vital Signs Temp Pulse Resp BP Pulse Ox O2 Del Method FiO2 98.3 F 74 18 139/57 H 98 Room Air 96 04/02/25 05:00 04/02/25 05:00 04/02/25 05:00 04/02/25 05:00 04/02/25 08:15 04/02/25 08:15 03/27/25 17:28 Oxygen Delivery Method Room Air Weight: 233 lb 0.458 oz Body Mass Index (BMI) 38.8 Intake & Output: Intake and Output for Last 24 Hours 03/31/25 04/01/25 04/02/25 23:59 23:59 23:59 Intake Total 820 / 820 1500 / 1640 1020 / 1020 Output Total 1100 / 1100 550 / 550 Balance -280 / -280 950 / 1090 1020 / 1020 Lab / Micro Data 03/31/25 07:20 03/28/25 06:48 Labs: Laboratory Results - last 24 hr 04/01/25 21:04: POC Glucose 132 H 04/02/25 06:30: POC Glucose 132 H Radiography Diagnostic Testing: Radiology Impression Venous Doppler Study 03/27/25 14:17 Interpretation Summary Deep veins of the bilateral lower extremities are patent and compressible segmentally. There is no evidence of bilateral lower extremity deep vein thrombosis. The bilateral great saphenous veins appear patent and compressible segmentally. Ordering Physician: Farida Zavala Referring Physician: Meir Zepeda Performed By: Ludmila Hernandez RVT Social Homelessness:: Sheltered Physical Exam Const alert and no apparent distress General Appearance: cooperative HEENT Mouth: dry mucous membranes Resp normal respiratory effort and clear to auscultation bilaterally Cardio regular rate, regular rhythm and no gallops Cardio Narrative: No ectopy GI normal to inspection, nondistended, normoactive bowel sounds, soft to palpation and non-tender Extremity Extremity Narrative: TEJAS hose are in place. Tenderness of the left calf has not changed and this is chronic and I suspect radicular. General Extremity: Negative for edema Skin Rashes: no rashes Wound Narrative: The right hip incision is intact with no dehiscence. There is a small amount of serous drainage on the dressing. No mireya-incisional erythema and no increased warmth to touch. I can palpate around the incision without her having pain. Mild swelling now around the incision. Assessment & Plan Assessment/Plan (1) Physical debility: (2) S/P total right hip arthroplasty: (3) Primary osteoarthritis of right hip: (4) Acute blood loss as cause of postoperative anemia: (5) Chronic anticoagulation: (6) DVT (deep venous thrombosis): QUALIFIERS: DVT location: lower extremity Affected thrombotic vein of extremity: unspecified lower extremity proximal vein Chronicity: u nspecified Laterality: right Qualified Code(s): I82.4Y1 - Acute embolism and thrombosis of unspecified deep veins of right proximal lower extremity (7) Pulmonary embolism: QUALIFIERS: Pulmonary embolism type: unspecified Chronicity: u nspecified Acute cor pulmonale presence: unspecified Qualified Code(s): I26.99 - Other pulmonary embolism without acute cor pulmonale (8) Presence of IVC filter: (9) Spinal stenosis of lumbar region with neurogenic claudication: (10) Lumbar radiculopathy: (11) Fibromyalgia: (12) HTN (hypertension): QUALIFIERS: Hypertension type: primary hypertension Qualified Code(s): I10 - Essential (primary) hypertension (13) Diabetes mellitus, type 2: QUALIFIERS: Diabetes mellitus c unix developer insulin use: without penitentiary use Diabetes mellitus complication status: with neurologic complications Diabetes mellitus complication detail: with polyneuropathy Qualified Code(s): E 11.42 - Type 2 diabetes mellitus with diabetic polyneuropathy (14) Rheumatoid arthritis: QUALIFIERS: Rheumatoid arthritis location: unspecified site R heumatoid factor presence: without rheumatoid factor Qualified Code(s): M06.00 - Rheumatoid arthritis without rheumatoid factor, unspecified site (15) Class II obesity: (16) STEFFI (obstructive sleep apnea): PLAN: Plan 1. Continue therapy 2. Change the Accu-Cheks to as needed 3. We discussed weight loss and carb control. She has been following weight watchers diet but, admits to overdoing it with carbs. Knows that she needs to increase protein and decrease carbs. HDL is a little low at 41 and the LDL is a little maria t at 77. Many RF's for CAD. Would like to see the LDL < 70 and the HDL 45 or greater. We discussed increasing exercise to help get the HDL up. No medication at this time. she is going to work on diet and exercise and recheck a Lipid panel in 6 months. If the LDL is still > 70 would consider Adding a lipid lowering drug.......had myalgias with Atorvastatin. Did not know the dose. May try Crestor 5 mg........many people with myalgias on Lipitor tolerate low dose Creator. Since the LDL is only mildly elevated could consider Questran. Would like to see HDL 45 or >. If regular exercise does not result in an increase in HDL would consider niacin SA 500 mg at bedtime. 4. She will continue Warfarin ar DC for 2 months. Then she can follow up with Dr. Mckenzie for a hypercoagulable W/U......needs to be off an anticoagulant for 1 week prior to the blood work being drawn. 5. Planning DC home on Sunday with [facility] for a couple weeks until the incision is completely closed and then transitioning to aquatic therapy at [facility]. 6. Check a PTT/INR in the AM. Charges/Coding Visit Charges Inpatient E&M: 98804 Subs Hosp L2
[2025-04-02] MEDS: Senna/Docusate Sodium 1 Tablet 2 TABLET PO (09:10)
--- NOTE | 2025-04-02 13:07 | CASEMGMT ---
Addendum entered by Zora Vanessa 04/02/25 14:15: Pt provided preferences: 1- [facility], 2- [facility], 3- [facility]. [facility] phoned referral to [facility]HC for PT/SN (No OT needed) Original Note: Social Work IDT met with patient and for Team meeting. Discussed patient's progress in PT/OT/SN/MD. Educated to Medicare approval of 10 days with [facility] 04/06. Pt requesting to DC 04/04 and IDT agreeable. discussed having skilled HHC for nursing first then transition to OP aquatic therapy at [facility]. MANSOOR educated to contact PCP for that order after the stop of HHC. Pt expressed understanding. SW offered list of skilled HHC agencies within geographical area, INN with insurance, that include quality and resource data via [employer] guide. Pt denied DME needs. Pt requested list of PCP providers. SW provided Healthcare Provider Brochure. to transport. Plan: DC home with 04/04, HHC PT/OT/SN Zora Vanessa DISPATCHER SERVICE STEAM SERVICE INSPECTOR
[2025-04-02] MEDS: Warfarin (PBKC) 5 MG Tablet 10 MG PO (17:34)
[2025-04-02 17:54] VITALS: BP 133/60; PULSE 89; RESP 16; TEMP 36.8; O2SAT 98
[2025-04-02 19:50] VITALS: PULSE 89; RESP 16; O2SAT 98
[2025-04-03 05:18] VITALS: BP 151/56; PULSE 80; RESP 18; TEMP 36.3; O2SAT 95
[2025-04-03 07:25] LABS: Prothrombin Time (Protime)PT. 38.8 SECONDS (11.7-14.9)
[2025-04-03 08:00] VITALS: BP 116/50; PULSE 84
--- NOTE | 2025-04-03 10:26 | PCM.DC ---
Discharge Instructions DC O2, CPAP, BIPAP needs Home O2 Discharge instructions: No Dressing / Incision Discharge Activity: May Not Drive, May Shower and Use Walker Weight Bearing Status: Weight bearing as tolerated (RLE) Keep extremity elevated above heart level: Legs Dressing / Incision Call your doctor if your incision/area has: Continuous Slow Oozing, Sudden Increased Bleeding, Increased Pain/ Swelling, Increased Redness, Foul Smelling Discharge and Swelling at the incision site Call your doctor if you observe: Fever of 101 or Higher, Inability to have a bowel movement, Shortness of breath, Dizziness, Fainting spells, Swelling in the ankles, Chest pain, Increased palpitations (irregular heartbeat), Calf discomfort (calf discomfort that is different than the chronic calf pain on the L. ) and Uncontrolled pain Suture Line Care: Avoid Pulling/Pushing and Avoid Pinching/Bending Cleanse incision/area with: Soap & Water and - (You do not need to have a dressing on the incision but, if there is drainage you can just cover it with a dry non stick dressing. It is OK to shower. Do not soak the incision (so no tub baths for now). ) Follow Up Care When: Appointment with Dr. Rasmussen and Dr. Terry are listed later in this document. He will need to make an appointment with Dr. Zepeda within the next 2 weeks. Test Results: Test results from this visit will be discussed in further detail at your follow-up appointment, if applicable. Pending Tests Upon Discharge: none Discharge Plan Admission Admit Date/Time: 03/27/25 13:30 Primary Reason for Your Visit: debility due to R DUNCAN Attending Provider: Farida Zavala Primary Care Provider: Meir Zepeda Instructions Patient Instructions: Caring for Your Incision Additional Instructions / Restrictions: 1. You are doing great and will continue to improve with additional therapy. When the incision is completely healed and there is no discharge you can transition from home health care to [facility].........in the pool with Jenae. Either Dr. Zepeda or Dr. Terry will need to write the order for therapy at [facility] and they will need to specify you need aquatic therapy in the pool. Because of all you joints pains and back pain you will do better in the pool because the water offloads body weight and you can strengthen the muscles without stress the back and joints so much. 2. We have had you on Metformin 750 mg twice a day in the hospital and the blood sugars have been good......BUT, you are on a carb control diet. You will go back to 1,000 mg BID of Metformin when you go home. If you want to try and lose more weight increase lean proteins in your diet and decrease carbohydrate intake. Lean proteins include skinless chicken and turkey, fish, shrimp, tofu. It is OK to have some red meat but, buy the 93% lean meat. Weight watcher's is a healthy diet. There are MANY free foods and lots of recipes on the web site. Do not weigh yourself more than once a week. Try and stick to a low salt diet.......salt makes you retain water this increases weight.....it also increases the BP. The weight watchers otilia will also track your salt intake........stay under 4,000 mg daily. Regular exercise helps with weight loss and keeps you more flexible which helps with chronic joint pains. Strengthening your abdominal muscles definitely helps with back pain. Marge can help you with a routing in the pool to work your abs. YOU CAN DO THIS! 3. I do not know that you need to be on Coumadin chronically. You have had only 2 events of blood clots in your life and both occurred after major surgeries........blood clots after surgery when you are not as active are not uncommon. We call these provoked events. Unprovoked events are when you get blood clots when there is no reason to have a blood clot........no surgeries, no traumatic injuries to the legs, no prolonged immobilization. Provoked events are generally treated with 3-6 months of anticoagulation and then the anticoagulant is stopped. You have never had a clot that was not provoked. some people have a problem with the clotting system and their blood clots more easily than normal. These people have Hypercoagulable disorders and they need chronic anticoagulation to prevent blood clots. There are blood tests that can be done on you to check to see if you have a hypercoagulable disorder. The test can not be done while you are on Warfarin. You would need to be off Warfarin for a week before the tests can be done. Because you just had surgery and are at increased risk for clots I would continue Warfarin for 2-3 months and then follow up with Dr. Mckenzie.......he can order the tests to see if you have a hypercoagulable disorder. 4. Increasing the Lisinopril dose to 20 mg daily helped with the BP control. 5. I can only prescribe a limited amount of pain medication because I am not your PCP or surgeon. If you are running out of pain medication you will need to contact, Dr. Zepeda, Dr. Mackey or Dr. Terry. 6. The R leg is going to be swollen for at least another 1-2 months. The best way to control the swelling is to wear a compression stocking. This should be put on as soon as you get out of bed in the morning and do not take it off until you get in bed at night. I would plan on wearing this for the next 4-6 weeks. Sometimes after a joint replacement you will always have some increased swelling in the involved leg. The surgery cuts through veins and lymphatic channels and swelling can be chronic. [employer] has some really funky compression socks so you might want to check that out. when you are seated in ca chair elevate your legs. Do not sit for longer than an hour without getting up to take a walk. This will help with the stiffness. 7. Your INR was too high on Sunday at 3.9. We held the Warfarin and will recheck in the AM. I am going to have you take 8 mg every day and I am giving you a lab slip to have a bleeding time done on Sunday.........you can call me for the results on . 8. It was a pleasure meeting you and Neymar. You are welcome back anytime.....hope you don't need us though. If you or Neymar have any questions after you leave rehab please do not hesitate to call me. OFFICE: [phone] CELL: [phone] NURSES STATION ON REHAB: [phone] Discharge Orders/Prescriptions Prescriptions: New gabapentin 300 mg Capsule 300 mg PO Q8 Qty: 90 0RF duloxetine 30 mg Capsule,Delayed Release(Dr/Ec) 90 mg PO DAILY Qty: 90 0RF Rx Instructions: 3 capsules daily in the AM sennosides-docusate sodium [Stimulant Laxative Plus] 8.6-50 mg Tablet 2 tab PO BID Qty: 60 0RF tramadol 50 mg Tablet 100 mg PO Q6H PRN PRN (Reason: pain 4-10) 14 Days Qty: 56 0RF Rx Instructions: Do not exceed 400 mg daily warfarin [Jantoven] 4 mg Tablet 8 mg PO DAILY Qty: 60 0RF lisinopril 20 mg tablet 20 mg PO DAILY Qty: 30 0RF Continued calcium carbonate-vitamin D3 [Calcium 600 with Vitamin D3] 600 mg(1,500mg) -500 unit capsule 1 cap PO BID hydroxychloroquine 200 mg tablet 200 mg PO BID trazodone 50 MG tablet 100 mg PO QHS Patient Comments: INSOMINIA multivitamin with folic acid 1 TABLET tablet 1 tab PO DAILY Patient Comments: SUPPLEMENT biotin 10,000 mcg capsule 10,000 mcg PO DAILY Patient Comments: SUPPLEMENT ropinirole 2 mg tablet 2 mg PO QHS (DME) CPAP - Continuous Positive Airway Pressure([facility] INFORMATIONAL USE ONLY) Device See Rx Instructions .ROUTE Rx Instructions: As directed ropinirole 2 mg tablet 2 mg PO 1700 omeprazole 20 mg capsule,delayed release(DR/EC) 20 mg PO DAILY ascorbic acid (vitamin C) [C-1000] 1,000 mg tablet 1 g PO 1200 acetaminophen 500 mg tablet 1,000 mg PO Q8H tizanidine 4 mg tablet 8 mg PO QHS Qty: 60 0RF Rx Instructions: Take 1 to 2 tablets orally nightly. ferrous sulfate 325 MG tablet 325 mg PO 1200 Qty: 90 0RF Rx Instructions: Can stop after 3 months....take with vitamin C to improve absorption Changed metformin 1,000 mg tablet 1,000 mg PO BID Qty: 60 0RF Held methotrexate sodium 2.5 mg tablet 20 mg PO SA Hold Instructions: Do Not take this medication until Dr. Terry tells you it is OK to restart. Discontinued duloxetine [Cymbalta] 60 mg capsule,delayed release(DR/EC) 60 mg PO QAM Qty: 90 1RF duloxetine 30 mg capsule,delayed release(DR/EC) 30 mg PO QPM Qty: 90 1RF tramadol 50 mg Tablet 50 mg PO Q6H PRN (Reason: Pain Score 6-10) Qty: 25 0RF warfarin [Jantoven] 5 mg tablet 10 mg PO SUTUWETHSA enoxaparin [Lovenox] 40 mg/0.4 mL syringe 40 mg subcut DAILY Qty: 4 0RF Rx Instructions: Discontinue when INR therapeutic gabapentin 100 mg capsule 200 mg PO Q8H No Action warfarin 4 mg tablet 8 mg PO MOFR Other Ambulatory Orders: Prothrombin Time w/INR (Routine) Timeframe: [id number] Facility: [facility] - Location: Laboratory Ordered By: Dr. Farida Zavala Referrals / Follow Up: staple removal [Other] - 04/08/25 [facility] [Provider Group] (referral sent, office will call patient to set up appt) Meir Zepeda MD [Primary Care Provider] - 04/17/25 10:30 am Jose Ramon Terry DO [Med Staff - Active Staff] - 05/04/25 10:45 am Gilberto Rasmussen MD [Non-Staff -Ordering Privileges] - 04/14/25 2:40 pm Disposition Disposition (needs filled in before D/C Order can be placed): Home Health Service
--- NOTE | 2025-04-03 15:44 | CHAPLAIN ---
Type of Pastoral Visit _x__ Initial Visit ___ Follow-up Visit ___ On-call Visit ___ General Patient Visit ___ Spiritual Assessment ___ Family Conference ___ Bereavement ___ Rapid Response ___ Code Blue ___ Other (describe below) Pastoral Care Referral From _x__ Patient ___ Family ___ Nurse ___ Physician ___ Precision Thread Grinder Operator ___ Operations Chief ___ Other (describe below) Sacrament/Intervention _x__ Active listening ___ Anointing ___ Amish ___ Bereavement ___ Communion ___ Keiry exploration ___ _x__ Life review ___ Prayer ___ Reconciliation ___ Sacrament of Sick _x__ Supportive presence ___ Wedding ___ Other (describe below) Pastoral Comments patient is sitting in her chair in the room and expresses a positive outlook and good appreciation for the care she has received; pt is expecting to be discharged tomorrow; pt feels like her experience has been good and that she is ready for home therapy to continue; pt has spouse at home although he is not physically able to handle her, he is a very supportive help and does a lot around the house; pt is optimistic and denies concerns;
--- NOTE | 2025-04-03 16:51 | DS.PCM_ITS ---
Providers Date of Admission: 03/27/25 Date of Discharge: 04/04/25 Primary Care Physician: Meir Zepeda MD Reason For Visit: RIGHT TOTAL HIP Diagnosis Discharge Diagnosis (1) Physical debility: Status: Acute Code(s): R53.81 - Other malaise (2) S/P total right hip arthroplasty: Status: Acute Code(s): Z96.641 - Presence of right artificial hip joint Plan: 04-[address] Jose Ramon Terry. (3) Primary osteoarthritis of right hip: Status: Chronic Code(s): M16.11 - Unilateral primary osteoarthritis, right hip (4) Acute blood loss as cause of postoperative anemia: Status: Acute Code(s): D62 - Acute posthemorrhagic anemia Plan: Hemoglobin is stable at 9.8 at the time of discharge. (5) Chronic anticoagulation: Status: Chronic Code(s): Z79.01 - halfway (current) use of anticoagulants Plan: Warfarin. ? 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 Has had never had an unprovoked event. Has never had a hypercoagulable W/U to her knowledge. Review of the EMR at [facility] shows no hypercoagulable testing was done here. (6) DVT (deep venous thrombosis): Status: Inactive Code(s): I82.409 - Acute embolism and thrombosis of unspecified deep veins of unspecified lower extremity Qualifiers: DVT location: lower extremity Affected thrombotic vein of extremity: u nspecified lower extremity proximal vein Chronicity: unspecified Laterality: r ight Qualified Code(s): I82.4Y1 - Acute embolism and thrombosis of unspecified deep veins of right proximal lower extremity Plan: 2015 after reconstruction surgery after Gastric Bypass. (7) Pulmonary embolism: Status: Inactive Code(s): I26.99 - Other pulmonary embolism without acute cor pulmonale Qualifiers: Pulmonary embolism type: unspecified Chronicity: unspecified Acute cor pulmonale presence: unspecified Qualified Code(s): I26.99 - Other pulmonary embolism without acute cor pulmonale Plan: In 2006 following [place]-en-Y gastric bypass surgery. (8) Presence of IVC filter: Status: Chronic Code(s): Z95.828 - Presence of other vascular implants and grafts (9) Spinal stenosis of lumbar region with neurogenic claudication: Status: Chronic Code(s): M48.062 - Spinal stenosis, lumbar region with neurogenic claudication Plan: She will continue to follow with Dr. Johnson. (10) Lumbar radiculopathy: Status: Chronic Code(s): M54.16 - Radiculopathy, lumbar region (11) Fibromyalgia: Status: Chronic Code(s): M79.7 - Fibromyalgia (12) HTN (hypertension): Status: Chronic Code(s): I10 - Essential (primary) hypertension Qualifiers: Hypertension type: primary hypertension Qualified Code(s): I10 - Essential (primary) hypertension (13) Diabetes mellitus, type 2: Status: Chronic Code(s): E11.9 - Type 2 diabetes mellitus without complications Qualifiers: Diabetes mellitus group home insulin use: without group home use Diabetes mellitus complication status: with neurologic complications Diabetes mellitus complication detail: with polyneuropathy Qualified Code(s): E11.42 - Type 2 diabetes mellitus with diabetic polyneuropathy Plan: Hemoglobin A1c is 6.8% currently. (14) Rheumatoid arthritis: Status: Chronic Code(s): M06.9 - Rheumatoid arthritis, unspecified Qualifiers: Rheumatoid arthritis location: unspecified site Rheumatoid factor presence: without rheumatoid factor Qualified Code(s): M06.00 - Rheumatoid arthritis without rheumatoid factor, unspecified site Plan: Follows with Dr. Yip (15) Class II obesity: Status: Chronic Code(s): E66.812 - Obesity, class 2 (16) STEFFI (obstructive sleep apnea): Status: Chronic Code(s): G47.33 - Obstructive sleep apnea (adult) (pediatric) Plan: Compliant with CPAP. Plan 1. DC home on 04/04/25. 2. PT/INR on Sunday 3. INR supratherapeutic at 3.9 on 04/03/25. Warfarin held and dose changed to 8 mg daily. 4. Continue anticoagulation for 2 months and then recommend follow up with Dr. Mckenzie for a hypercoagulable W/U. If this is negative then she would not need chronic anticoagulation because the 2 events she has had in the past have both been provoked by long major surgeries. 5. Follow up scheduled with Dr. Terry and Dr. Zepeda 6. She will continue to follow-up with Dr. Mackey for chronic pain management, Dr. Rasmussen for restless leg syndrome Medications at Discharge Home Medications multivitamin with folic acid 400 mcg tablet 1 tab PO DAILY SUPPLEMENT 02/11/14 trazodone 50 mg tablet 100 mg PO QHS SLEEP 02/11/14 biotin 10,000 mcg capsule 10,000 mcg PO DAILY HAIR LOSS 05/30/21 calcium 600 mg (as carbonate)-vitamin D3 12.5 mcg (500 unit) capsule (Calcium with Vit D3) 1 cap PO BID SUPPLEMENT 05/30/21 hydroxychloroquine 200 mg tablet 200 mg PO BID OA 01/18/24 methotrexate sodium 2.5 mg tablet 20 mg PO SA OA 02/25/25 Held on 04/03/25. Instructions: Do Not take this medication until Dr. Terry tells you it is OK to restart. CPAP - Continuous Positive Airway Pressure([facility] INFORMATIONAL USE ONLY) 03/10/25 omeprazole 20 mg capsule,delayed release 20 mg PO DAILY GERD 03/10/25 ropinirole 2 mg tablet 2 mg PO 1700 RLS 03/10/25 ropinirole 2 mg tablet 2 mg PO QHS RLS 03/10/25 warfarin 4 mg tablet 8 mg PO MOFR BLOOD THINNER 03/10/25 acetaminophen 500 mg tablet 1,000 mg PO Q8H pain 03/27/25 ascorbic acid (vitamin C) 1,000 mg tablet (C-1000) 1 g PO 1200 supplement 03/27/25 duloxetine 30 mg capsule,delayed release 90 mg (3 x 30 mg) PO DAILY #90 caps 04/03/25 ferrous sulfate 325 mg (65 mg iron) tablet 325 mg PO 1200 SUPPLEMENT #90 tabs 04/03/25 gabapentin 300 mg capsule 300 mg PO Q8 #90 caps 04/03/25 lisinopril 20 mg tablet 20 mg PO DAILY #30 tabs 04/03/25 metformin 1,000 mg tablet 1,000 mg PO BID DIABETES #60 tabs 04/03/25 sennosides 8.6 mg-docusate sodium 50 mg tablet (Stimulant Laxative Plus) 2 tab PO BID #60 tabs 04/03/25 tizanidine 4 mg tablet 8 mg (2 x 4 mg) PO QHS muscle spasticity/leg restlessness #60 tabs 04/03/25 tramadol 50 mg tablet 100 mg (2 x 50 mg) PO Q6H PRN PRN pain 4-10 14 days #56 tabs 04/03/25 warfarin 4 mg tablet (Jantoven) 8 mg (2 x 4 mg) PO DAILY #60 tabs 04/03/25 Hospital Course Operations total hip replacement (Right hip on 03/24/[address] Terry) Procedures None Summary of Care Provided Minutes Spent on Discharge: 45 Hospital Course: ART BLUE, is a 69 YO F with a PMH of DM II, RA (RF and CCP negative in the past), fibromyalgia, chronic low back pain with radicular pain, HTN, HLD, tobacco dependence in remission, DVT/PE (both were after surgeries when she was sedentary), chronic anticoagulation with warfarin, RLS, Anxiety/depression, STEFFI (compliant with CPAP....follows with Dr. Pereyra), Hx of iron deficiency, peripheral neuropathy, nephrolithiasis, glaucoma, history of a gastric ulcer, GERD, history of [place]-en-Y gastric bypass, history of an IVC filter, small vessel cerebrovascular disease, right frontal convexity meningioma found on MRI, IgG monoclonal protein (lambda type) in the past (follows with Dr. Mckenzie), remote lacunar infarcts, cervical foraminal stenosis/spinal stenosis, lumbar canal stenosis/foraminal narrowing, positive atypical p-ANCA, diverticulosis, fatty infiltration of the liver, adrenal nodules/adenomas, multinodular goiter and morbid obesity who underwent a R DUNCAN on 03/24/[address] Terry. Post op course was remarkable for confusion (related to Oxycodone) and hypotension. She was transferred to the acute inpt rehab unit at [facility] on 03/27/25 for 3 hours of therapy daily to restore function/independence at or near her level prior to the DUNCAN. Art tells me that she has been on Warfarin for many years. She has had 2 VTE events in the past (in 2006 after [place]-en-Y gastric bypass and in 2014 after panniculectomy )....... PE 2006 and DVT R upper thigh/groin in 2014. Both events occurred after long major surgeries. She denies ever being told she has a hypercoagulable disorder. She has an IVC filter placed because she had a lot of bleeding and could not take an anticoagulant after 1 of the events. INR's in the EMR since October of 2024 have all been WNL? She is told me that she was taking 8 mg of warfarin 5 days a week and 10 mg the other 2 days. She admits to eating a lot of green vegetables at home. If both events were provoked why is she still on anticoagulation? There were no significant complications on rehab and Art did very well with therapy. At the time of DC. Her hemoglobin has been stable at 9.6. INR on 04/03/2025 was high at 3.9 and warfarin was held on that date. She will have an INR done on 04/04/2025 prior to her discharge home and I will call her to tell her what to do with the warfarin if the instructions change. She was instructed to take 8 mg daily at discharge and she was given a lab slip to obtain a PTT/INR on Sunday of the coming week. At the time of discharge she is able to complete 1 curb step using a front wheel walker at contact-guard assist. She is able to do 10 sit to stands using her bilateral upper extremities to rise in 30 seconds. She has ambulated up to 210 feet on various surfaces with a front wheeled walker at [facility]. She is supervision/set up for grooming, toileting and toilet transfer. She is standby assist for bathing and contact-guard assist for tub/shower transfer.. She is independent with upper body dressing and contact-guard assist for lower body dressing. Her Neymar came in for family training prior to discharge to learn how best to help Jyothi. She has appointments to follow-up with Dr. Zepeda and Dr. Terry scheduled for the week following discharge. She will continue to follow-up with Dr. Rasmussen for restless leg syndrome and Dr. Mackey for chronic pain management. She will continue warfarin for 2 months and then call to schedule an appointment with Dr. Mckenzie for a hypercoagulable workup. If the hypercoagulable workup is negative I see no reason why she needs to stay on chronic Coumadin as both of her VTE events were provoked. Physical Exam Const alert, oriented x3 and no apparent distress General Appearance: cooperative and well developed HEENT normocephalic, head/scalp atraumatic and hearing grossly normal bilaterally HEENT Narrative: Mucous membranes are more moist than they were at admission. Eyes PERRL, EOMs intact bilaterally, conjunctivae normal and no scleral icterus Eyes Narrative: No discharge from the eyes General Eye: normal appearance of both eyes Neck supple, no JVD and no carotid bruits Neck Narrative: Brisk carotid upstroke with good pulse volume. Chest Chest: symmetrical chest wall rise Resp normal respiratory effort and clear to auscultation bilaterally Resp Narrative: Breath sounds are mildly diminished which may be due to body habitus. No wheezing and no crackles. Not tachypneic. Effort and Inspection: able to speak in complete sentences Cardio regular rhythm, no murmurs, no rub and no gallops Cardio Narrative: No ectopy GI normal to inspection, nondistended, normoactive bowel sounds, soft to palpation and non-tender Bladder / Kidney Exam: No catheter in place Back/Spine no CVA tenderness Extremity Extremity Narrative: She has swelling of the RLE.......she did not have compression stockings on today or WILLIAMS wraps? Peripheral Pulses: Yes pulses 2+ throughout Skin no jaundice General Skin Exam: no breakdown Rashes: no rashes Wound Narrative: The R hip incision is intact with no dehiscence. There is a small amount of serous drainage but no purulent drainage. There is no mireya-incisional erythema. She did not complain of pain when I palpated around the incision. Neuro oriented x3, CN's II-XII intact bilaterally and moves all extremities Neuro Narrative: Has chronic radicular pain in the left calf and also in the right buttock and right thigh/groin. Psych mental status grossly normal, thought process normal, cooperative, affect normal, speech normal, denies hallucinations, denies homicidal ideation and denies suicidal ideation Appearance: appropriate and well kempt Attitude: calm Activity / Motor Behavior: appropriate eye contact Medical Records Data Homelessness:: Sheltered Weight / BMI Weight Weight: 233 lb 0.458 oz Body Mass Index (BMI) 38.8 ABG / Lab / Microbiology Data 03/31/25 07:20 03/28/25 06:48 Laboratory: Laboratory Results - last 24 hr 04/03/25 06:06: PT 38.8 H, INR 3.9 D/C Instructions Weight Bearing Status: Weight bearing as tolerated (RLE) Keep extremity elevated above heart level: Legs Call your doctor if your incision/area has: Continuous Slow Oozing, Sudden Increased Bleeding, Increased Pain/ Swelling, Increased Redness, Foul Smelling Discharge and Swelling at the incision site Call your doctor if you observe: Fever of 101 or Higher, Inability to have a bowel movement, Shortness of breath, Dizziness, Fainting spells, Swelling in the ankles, Chest pain, Increased palpitations (irregular heartbeat), Calf discomfort (calf discomfort that is different than the chronic calf pain on the L. ) and Uncontrolled pain Suture Line Care: Avoid Pulling/Pushing and Avoid Pinching/Bending Cleanse incision/area with: Soap & Water and - (You do not need to have a dressing on the incision but, if there is drainage you can just cover it with a dry non stick dressing. It is OK to shower. Do not soak the incision (so no tub baths for now). ) DC O2, CPAP, BIPAP Needs Home O2 Discharge instructions: No Pending Tests Upon Discharge: none When: Appointment with Dr. Rasmussen and Dr. Terry are listed later in this document. He will need to make an appointment with Dr. Zepeda within the next 2 weeks. Meaningful Use Info Meaningful Use Meaningful Use Diagnoses (Choose all that apply): None applicable Discharge Plan Admission Admit Date/Time: 03/27/25 13:30 Primary Reason for Your Visit: debility due to R DUNCAN Attending Provider: Farida Zavala Primary Care Provider: Meir Zepeda Instructions Patient Instructions: Caring for Your Incision Additional Instructions / Restrictions: 1. You are doing great and will continue to improve with additional therapy. When the incision is completely healed and there is no discharge you can transition from home health care to [facility].........in the pool with Jenae. Either Dr. Zepeda or Dr. Terry will need to write the order for therapy at [facility] and they will need to specify you need aquatic therapy in the pool. Because of all you joints pains and back pain you will do better in the pool because the water offloads body weight and you can strengthen the muscles without stress the back and joints so much. 2. We have had you on Metformin 750 mg twice a day in the hospital and the blood sugars have been good......BUT, you are on a carb control diet. You will go back to 1,000 mg BID of Metformin when you go home. If you want to try and lose more weight increase lean proteins in your diet and decrease carbohydrate intake. Lean proteins include skinless chicken and turkey, fish, shrimp, tofu. It is OK to have some red meat but, buy the 93% lean meat. Weight watcher's is a healthy diet. There are MANY free foods and lots of recipes on the web site. Do not weigh yourself more than once a week. Try and stick to a low salt diet.......salt makes you retain water this increases weight.....it also increases the BP. The weight watchers otilia will also track your salt intake........stay under 4,000 mg daily. Regular exercise helps with weight loss and keeps you more flexible which helps with chronic joint pains. Strengthening your abdominal muscles definitely helps with back pain. Jille can help you with a routing in the pool to work your abs. YOU CAN DO THIS! 3. I do not know that you need to be on Coumadin chronically. You have had only 2 events of blood clots in your life and both occurred after major surgeries........blood clots after surgery when you are not as active are not uncommon. We call these provoked events. Unprovoked events are when you get blood clots when there is no reason to have a blood clot........no surgeries, no traumatic injuries to the legs, no prolonged immobilization. Provoked events are generally treated with 3-6 months of anticoagulation and then the anticoagulant is stopped. You have never had a clot that was not provoked. some people have a problem with the clotting system and their blood clots more easily than normal. These people have Hypercoagulable disorders and they need chronic anticoagulation to prevent blood clots. There are blood tests that can be done on you to check to see if you have a hypercoagulable disorder. The test can not be done while you are on Warfarin. You would need to be off Warfarin for a week before the tests can be done. Because you just had surgery and are at increased risk for clots I would continue Warfarin for 2-3 months and then follow up with Dr. Mckenzie.......he can order the tests to see if you have a hypercoagulable disorder. 4. Increasing the Lisinopril dose to 20 mg daily helped with the BP control. 5. I can only prescribe a limited amount of pain medication because I am not your PCP or surgeon. If you are running out of pain medication you will need to contact, Dr. Zepeda, Dr. Mackey or Dr. Terry. 6. The R leg is going to be swollen for at least another 1-2 months. The best way to control the swelling is to wear a compression stocking. This should be put on as soon as you get out of bed in the morning and do not take it off until you get in bed at night. I would plan on wearing this for the next 4-6 weeks. Sometimes after a joint replacement you will always have some increased swelling in the involved leg. The surgery cuts through veins and lymphatic channels and swelling can be chronic. [employer] has some really funky compression socks so you might want to check that out. when you are seated in ca chair elevate your legs. Do not sit for longer than an hour without getting up to take a walk. This will help with the stiffness. 7. Your INR was too high on Sunday at 3.9. We held the Warfarin and will recheck in the AM. I am going to have you take 8 mg every day and I am giving you a lab slip to have a bleeding time done on Sunday.........you can call me for the results on . 8. It was a pleasure meeting you and Neymar. You are welcome back anytime.....hope you don't need us though. If you or Neymar have any questions after you leave rehab please do not hesitate to call me. OFFICE: [phone] CELL: [phone] NURSES STATION ON REHAB: [phone] Discharge Orders/Prescriptions Prescriptions: New gabapentin 300 mg Capsule 300 mg PO Q8 Qty: 90 0RF duloxetine 30 mg Capsule,Delayed Release(Dr/Ec) 90 mg PO DAILY Qty: 90 0RF Rx Instructions: 3 capsules daily in the AM sennosides-docusate sodium [Stimulant Laxative Plus] 8.6-50 mg Tablet 2 tab PO BID Qty: 60 0RF tramadol 50 mg Tablet 100 mg PO Q6H PRN PRN (Reason: pain 4-10) 14 Days Qty: 56 0RF Rx Instructions: Do not exceed 400 mg daily warfarin [Jantoven] 4 mg Tablet 8 mg PO DAILY Qty: 60 0RF lisinopril 20 mg tablet 20 mg PO DAILY Qty: 30 0RF Continued calcium carbonate-vitamin D3 [Calcium 600 with Vitamin D3] 600 mg(1,500mg) - 500 unit capsule 1 cap PO BID hydroxychloroquine 200 mg tablet 200 mg PO BID trazodone 50 MG tablet 100 mg PO QHS Patient Comments: INSOMINIA multivitamin with folic acid 1 TABLET tablet 1 tab PO DAILY Patient Comments: SUPPLEMENT biotin 10,000 mcg capsule 10,000 mcg PO DAILY Patient Comments: SUPPLEMENT ropinirole 2 mg tablet 2 mg PO QHS (DME) CPAP - Continuous Positive Airway Pressure([facility] INFORMATIONAL USE ONLY) Device See Rx Instructions .ROUTE Rx Instructions: As directed ropinirole 2 mg tablet 2 mg PO 1700 omeprazole 20 mg capsule,delayed release(DR/EC) 20 mg PO DAILY ascorbic acid (vitamin C) [C-1000] 1,000 mg tablet 1 g PO 1200 acetaminophen 500 mg tablet 1,000 mg PO Q8H tizanidine 4 mg tablet 8 mg PO QHS Qty: 60 0RF Rx Instructions: Take 1 to 2 tablets orally nightly. ferrous sulfate 325 MG tablet 325 mg PO 1200 Qty: 90 0RF Rx Instructions: Can stop after 3 months....take with vitamin C to improve absorption Changed metformin 1,000 mg tablet 1,000 mg PO BID Qty: 60 0RF Held methotrexate sodium 2.5 mg tablet 20 mg PO SA Hold Instructions: Do Not take this medication until Dr. Terry tells you it is OK to restart. Discontinued duloxetine [Cymbalta] 60 mg capsule,delayed release(DR/EC) 60 mg PO QAM Qty: 90 1RF duloxetine 30 mg capsule,delayed release(DR/EC) 30 mg PO QPM Qty: 90 1RF tramadol 50 mg Tablet 50 mg PO Q6H PRN (Reason: Pain Score 6-10) Qty: 25 0RF warfarin [Jantoven] 5 mg tablet 10 mg PO SUTUWETHSA enoxaparin [Lovenox] 40 mg/0.4 mL syringe 40 mg subcut DAILY Qty: 4 0RF Rx Instructions: Discontinue when INR therapeutic gabapentin 100 mg capsule 200 mg PO Q8H No Action warfarin 4 mg tablet 8 mg PO MOFR Other Ambulatory Orders: Prothrombin Time w/INR (Routine) Timeframe: [id number] Facility: [facility] - Location: Laboratory Ordered By: Dr. Farida Zavala Referrals / Follow Up: staple removal [Other] - 04/08/25 [facility] [Provider Group] (referral sent, office will call patient to set up appt) Meir Zepeda MD [Primary Care Provider] - 04/17/25 10:30 am Jose Ramon Terry DO [Med Staff - Active Staff] - 05/04/25 10:45 am Gilberto Rasmussen MD [Non-Staff -Ordering Privileges] - 04/14/25 2:40 pm Disposition Disposition (needs filled in before D/C Order can be placed): Home Health Service Charges/Coding Visit Charges Inpatient E&M: 35498 Disch Hosp >30min
[2025-04-03 17:44] VITALS: BP 139/57; PULSE 87; RESP 16; TEMP 36.4; O2SAT 97
[2025-04-04] MEDS: Saliva Substitute 237 ML BOTTLE 15 ML MUCOUS MEM (01:29)
[2025-04-04 06:00] VITALS: BP 152/70; PULSE 71; RESP 17; TEMP 36.8; O2SAT 99
[2025-04-04 08:01] VITALS: BP 137/53; PULSE 94
[2025-04-04 08:07] LABS: Prothrombin Time (Protime)PT. 29.3 SECONDS (11.7-14.9)
[2025-04-04 12:33] VITALS: BP 148/62; PULSE 95; RESP 15; TEMP 36.4; O2SAT 96
== END 2025-04-04 12:45 | disposition home health service (06) | DRG 559 ==
PROVIDERS: Admitting Provider Internal Medicine; PCP Family Medicine; Referring Provider Internal Medicine; Visit Provider Internal Medicine
DX: Z47.1 Aftercare following joint replacement surgery (principal); I26.99 Other pulmonary embolism without acute cor pulmonale; I82.4Y1 Acute embolism and thrombosis of unspecified deep veins of right proximal lower extremity; D62 Acute posthemorrhagic anemia; E27.8 Other specified disorders of adrenal gland; J44.9 Chronic obstructive pulmonary disease, unspecified; E11.42 Type 2 diabetes mellitus with diabetic polyneuropathy; M06.00 Rheumatoid arthritis without rheumatoid factor, unspecified site; I10 Essential (primary) hypertension; G25.81 Restless legs syndrome; K76.0 Fatty (change of) liver, not elsewhere classified; E04.2 Nontoxic multinodular goiter; E66.812 Obesity, class 2; M16.11 Unilateral primary osteoarthritis, right hip; M48.062 Spinal stenosis, lumbar region with neurogenic claudication; E78.00 Pure hypercholesterolemia, unspecified; G47.33 Obstructive sleep apnea (adult) (pediatric); M79.7 Fibromyalgia; M54.16 Radiculopathy, lumbar region; M48.02 Spinal stenosis, cervical region; D47.2 Monoclonal gammopathy; Z87.891 Personal history of nicotine dependence; Z96.641 Presence of right artificial hip joint; Z86.718 Personal history of other venous thrombosis and embolism; Z98.84 Bariatric surgery status; Z79.01 Long term (current) use of anticoagulants; Z86.711 Personal history of pulmonary embolism; Z68.38 Body mass index [BMI] 38.0-38.9, adult; Z79.899 Other long term (current) drug therapy; R79.1 Abnormal coagulation profile; Z86.011 Personal history of benign neoplasm of the brain; Z96.89 Presence of other specified functional implants
CPT/HCPCS: 36415; 80053; 80061; 82962; 83036; 83735; 84100; 85014; 85018; 85025; 85610; 85652; 86140; 93970; 97110; 97162; 97166; 97530; 97535; 97802

== ENCOUNTER 2025-04-06 11:33 | Outpatient (RCR) | payer MEDICARE, OTHER, SELFPAY ==
[2025-04-06 16:21] LABS: Prothrombin Time (Protime)PT. 24.1 SECONDS (11.7-14.9)
== END 2025-04-21 18:00 | disposition home or self-care (01) ==
LOC: MTLAB 11:33
PROVIDERS: PCP Family Medicine; Referring Provider Internal Medicine; Visit Provider Internal Medicine
DX: Z79.01 Long term (current) use of anticoagulants (principal)
CPT/HCPCS: 36415; 85610

== ENCOUNTER → 2025-04-17 | Outpatient (CLI) | payer MEDICARE, OTHER, SELFPAY ==
[2025-04-17 16:22] LABS: Hematocrit 32.5 % (37-47); Hemoglobin 10.4 g/dL (12.0-15.0); Mean Corp Hgb Conc 32.0 g/dL (32-36); Mean Corpuscular Volume 91.5 fL (81-99); Mean Platelet Vol. 9.5 fl (6.2-12.0); Platelet Count 394 K/mm3 (150-450); RBC Distribution Width CV 14.6 % (11.6-14.6); RBC Distribution Width SD 48.3 fl (35.1-43.9); Red Blood Count 3.55 M/mm3 (4.2-5.4); White Blood Count 6.0 K/mm3 (4.4-11.0)
[2025-04-17 16:41] LABS: Vitamin B12 922 pg/mL (180-914)
== END | disposition home or self-care (01) ==
LOC: MFPLAB 11:28
PROVIDERS: PCP Family Medicine; Referring Provider Family Medicine; Visit Provider Family Medicine
DX: D64.9 Anemia, unspecified (principal); E11.59 Type 2 diabetes mellitus with other circulatory complications
CPT/HCPCS: 36415; 82607; 85027

== ENCOUNTER → 2025-05-04 | Outpatient (CLI) | payer MEDICARE, OTHER, SELFPAY ==
--- NOTE | 2025-05-04 09:53 | RAD_ITS ---
PROCEDURE: ANKLE MIN 3 VIEWS 05/04/2025 REASON FOR EXAM: PAIN TECHNIQUE: Procedure Code: RADANK Modality: DX Procedure: ANKLE MIN 3 VIEWS Laterality: Left COMPARISON: None FINDINGS: There is no acute fracture or dislocation noted. There is a corticated ossific density posterior to the ankle which may reflect an old injury. No significant joint effusion noted. Mild calcaneal spurring is present. RAD/Ankle min 3 Views IMPRESSION: No acute abnormality. Details as above. Reading Location: [id number]
--- NOTE | 2025-05-04 09:53 | RAD_ITS ---
PROCEDURE: FOOT MIN 3 VIEWS 05/04/2025 REASON FOR EXAM: PAIN TECHNIQUE: Procedure Code: RADFO Modality: DX Procedure: FOOT MIN 3 VIEWS Left foot three views COMPARISON: None FINDINGS: There is no fracture or dislocation identified. Benign-appearing calcaneal spurs are noted. There is mild osteoarthritis of the 1st metatarsophalangeal articulation. Mineralization is normal. There is no soft tissue abnormality or radiopaque foreign body. There is visible atherosclerosis. RAD/Foot min 3 Views IMPRESSION: No fracture or dislocation is identified. Reading Location: [facility]
== END | disposition home or self-care (01) ==
LOC: MTRAD 09:52
PROVIDERS: PCP Family Medicine; Referring Provider Clinical Nurse Specialist Adult Health; Visit Provider Clinical Nurse Specialist Adult Health
DX: M19.072 Primary osteoarthritis, left ankle and foot (principal)
CPT/HCPCS: 73610; 73630

== ENCOUNTER 2025-06-11 14:00 | Outpatient (RCR) | payer MEDICARE, OTHER, SELFPAY ==
--- NOTE | 2025-05-19 09:43 | HP.PTEVAL_ITS ---
Patient's Visit Information Visit Information Visit Information: ART BLUE is a 69 year old F referred to Physical Therapy by Dr. Jose Ramon Terry DO with a diagnosis of R hip arthroplasty, DOS 03/24/25. Date of Evaluation: 05/13/25 Physical Therapist: Jesse Thrasher DPT Visit Plan Frequency: 2x /Week Duration: 6 Weeks Plan: In aquatic setting: Progress BLE strength, step ups, squats, gait progression as tolerated Subjective Subjective: Pt. is here today for her initial evaluation with diagnosis of R hip arthroplasty, DOS: 03/24/25. Pt. reports overall doing well. She is ready to start further strengthening, but is struggling with her L foot/ankle. She reports having high levels pain in this region. She was told she has severe arthritis here which limits her tolerance to mobility and standing activities. Physician recommended therapy in the pool to allow for better tolerance. She is sleeping well, no major issues. Pt. is walking much better, but does have some soreness in her L ankle with walking. She uses cane on R side due to ankle pain rather than L for her hip. Pt. is hopeful to increase her strength in order to get back to all household activities without limitations. Pain L ankle: Pain Intensity (Out of 10): 3 Pain Intensity Range: 2 and 6 R hip: Pain Intensity (Out of 10): 1 Pain Intensity Range: 0 and 2 Objective Objective: POSTURE: Pt. has decent posture in stance. PALPATION: Pt. has tenderness at R lateral hip but minimally. NEURO: normal throughout. ROM: R hip: flexion 100deg, abd 40deg, ER 45deg, IR 10deg. HS length 60deg, MMT: R hip: flexon 3+/5, abd 3+/5, ext 4/5, ER 3+/5, IR 3+/5. GAIT: Pt. ambulates with a SPC in R hand for her L ankle/foot. Pt. has a methodical pattern with her gait. Pt. reports increase in R hip pain, but is limited with her L ankle. STAIRS: step to pattern loading RLE only. Balance/Special Test Scores TUG Test Time Seconds: 19 30 Second Chair Rise Test Seconds: 9 Goals Goal 1:: LTG: Pt. to have 5/5 strength throughout RLE allowing for increased ability to negotiate stairs. Goal Time Frame: 4-6 Weeks Goal 2:: LTG: Pt. to ambulate without AD, normal gait pattern, without increase in R hip or L ankle pain allowing for increased tolerance to community mobility. Goal Time Frame: 4-6 Weeks Goal 3:: LTG: Pt. to complete TUG with time less than 10seconds indicating improved functional mobility. Goal Time Frame: 4-6 Weeks Goal 4:: LTG: Pt. to negotiate 1 flight of stairs with reciprocal pattern and 1 HR. Goal Time Frame: 4-6 Weeks Goal 5:: LTG: Pt. to complete 30sec sit to stand test with at least 15 reps i ndicating improved functional LE strength. Goal Time Frame: 4-6 Weeks Rehabilitation Potential Physical Therapy Diagnosis: Pt. has signs and symptoms consistent with R hip arthroplasty, DOS 03/24/25. Pt. has marked R LE weakness, difficulty with gait and functional mobility. She would benefit from PT to address the above limit ations progressing back to all household and recreational activities. Rehabilitation Potential: Excellent Anticipated Interventions Patient/Client Instruction: Educate patient on: Condition, Plan of Care, Risk Factors and Benefits of Fitness Program For the Purpose of:: To improve decision making, To facilitate caregiver knowledge, To improve self management, To prevent re-injury and To improve ability to perform tasks related to life management Therapeutic Exercise to Include: Strength training, Balance training, Postural training, Flexibilty training, Gait and locomotor training and "In an aquatic setting" For the Purpose of:: To decrease pain, To increase ROM, To improve nutrient delivery to tissue, To increase oxygenation perfusion, To improve muscle performance and motor function, To improve ability of physical actions for home/community/work/leisure, To improve gait and locomotor functions, To improve health of tissue and To decrease soft tissue restriction Text: Thank you for the opportunity to evaluate your patient. For Medicare and Medicare HMO plans, please review the plan of care and approve it. It will need to be FAXED BACK to us at [phone] for Medicare purposes. For Medicare only, by signing this I certify the plan of care. Please let me know if there are questions or concerns regarding this plan of care. Physician Signature: Date:
--- NOTE | 2025-06-11 14:31 | HP.PTDCSUM ---
Discharge Summary D/C summary: It has been my pleasure to treat ART BLUE referred by Dr. Jose Ramon Terry DO, with the diagnosis of R hip arthroplasty, DOS 03/24/25 for a total of 8 visit(s). Discharge Date: 06/11/25 Please see the following information for a summary of their discharge status. Subjective Subjective: Pt. reports having no pain in her R hip. L ankle is still bothering her 01/29. She is no longer using a cane. Pain L ankle: Pain Intensity (Out of 10): 7 R hip: Pain Intensity (Out of 10): 0 Overall Improvement % Improvement: 100 Objective Objective/Function: Pt. has good R hip ROM and strength. Slightly weak with R hip flexion 75% of L side. GAIT: Pt. is walking without AD, not R hip pain, but does have some L ankle pain. STAIRS: reciprocal pattern noted with no R hip pain. She does have some L ankle pain especially with descending. Pt is overall doing well. She will be DC from PT to self program today. Pt. is to follow up with physician for ankle with potential nerve block. Goals Goal 1:: LTG: Pt. to have 5/5 strength throughout RLE allowing for increased ability to negotiate stairs. Goal Progress: Progressing Goal 2:: LTG: Pt. to ambulate without AD, normal gait pattern, without increase in R hip or L ankle pain allowing for increased tolerance to community mobility. Goal Progress: Goal Met Goal 3:: LTG: Pt. to complete TUG with time less than 10seconds indicating improved functional mobility. Goal Progress: Goal Met Goal 4:: LTG: Pt. to negotiate 1 flight of stairs with reciprocal pattern and 1 HR. Goal Progress: Goal Met Goal 5:: LTG: Pt. to complete 30sec sit to stand test with at least 15 reps indicating improved functional LE strength. Goal Progress: Progressing Plan Plan: Pt. to be DC this date. D/C Information d/c sentence: If there are questions or concerns regarding this patient's physical therapy, please feel free to call me at [phone]. Thank you for the referral of this patient. Sincerely, Jesse Christiansen Sipos, DPT Balance/Gait/Functional tests Balance/Special Test Scores Lower Extremity Functional Score: 53 TUG Test Time Seconds: 9.7 Tug Test: <10 sec.=free mobile 30 Second Chair Rise Test Seconds: 14 Improvement % Improvement: 100
== END 2025-06-11 19:00 | disposition home or self-care (01) ==
LOC: PT 14:00
PROVIDERS: PCP Family Medicine; Referring Provider Orthopaedic Surgery; Visit Provider Orthopaedic Surgery
DX: Z96.641 Presence of right artificial hip joint (principal)
CPT/HCPCS: 97113; 97161; 97530

== ENCOUNTER → 2025-06-23 | Outpatient (CLI) | payer MEDICARE, OTHER, SELFPAY ==
--- NOTE | 2025-06-23 11:01 | MRI_ITS ---
PROCEDURE: BRAIN W/WO CONTRAST 06/23/2025 REASON FOR EXAM: WORSENING HEADACHES; MENINGIOMA TECHNIQUE: Procedure Code: MRIBRWW Modality: MR Procedure: BRAIN W/WO CONTRAST Multiplanar and multisequence images were obtained. CONTRAST: Clariscan VOLUME: 20 mL COMPARISON: MRI brain 07/24/2022 FINDINGS: At the posterior right frontal region, stable extra-axial enhancing lesion measuring 0.5 x 0.6 x 0.6 cm when measured in similar fashion. There is no adjacent parenchymal edema or significant mass effect. No new intracranial enhancing lesions. No acute infarct or hemorrhage. Scattered foci and partially confluent areas of periventricular and subcortical T2/FLAIR white matter hyperintensities in the cerebral hemispheres likely reflect chronic microvascular ischemic changes. No extra-axial fluid collection. No herniation of the brain. Global cerebral volume loss. No hydrocephalus. The basal cisterns are patent. The intracranial large vessel arterial flow voids are maintained. The mastoid air cells clear. There is scattered paranasal mucosal thickening. The orbits are unremarkable. The calvarial bone marrow signal is within normal limits. MRI/Brain W/WO Contrast IMPRESSION: No acute infarct, hemorrhage, or significant mass effect. Stable right frontal meningioma when compared to MRI of the brain 07/24/2022. Reading Location: [id number]
== END | disposition home or self-care (01) ==
LOC: OPMRI 11:00
PROVIDERS: PCP Family Medicine; Referring Provider Psychiatry & Neurology Neurology; Visit Provider Psychiatry & Neurology Neurology
DX: G43.009 Migraine without aura, not intractable, without status migrainosus (principal); D32.0 Benign neoplasm of cerebral meninges
CPT/HCPCS: 70553; A9575

== ENCOUNTER → 2025-06-29 | Outpatient (CLI) | payer MEDICARE, OTHER, SELFPAY ==
[2025-06-29 15:33] LABS: Prothrombin Time (Protime)PT. 37.0 SECONDS (11.7-14.9)
== END | disposition home or self-care (01) ==
LOC: MFPLAB 12:09
PROVIDERS: PCP Family Medicine; Visit Provider Family Medicine
DX: I82.402 Acute embolism and thrombosis of unspecified deep veins of left lower extremity (principal)
CPT/HCPCS: 36415; 85610

== ENCOUNTER → 2025-07-15 | Outpatient (CLI) | payer MEDICARE, OTHER, SELFPAY ==
--- OUTSIDE RECORDS SUMMARY | 2025-07-15 11:10 | XMS RPT_ITS | CCD ---
Author Organization [facility] Care Team Providers Care Helper/Driver Name Role Phone WSANurse Unavailable Unavailable Dr. Milton Almanzar Primary Care Provider Dr. Milton Almanzar Referring Provider Dr. Gilberto Rasmussen Attending Provider Milton Almanzar Primary Care Provider OSIRIS KIM Attending UnavailCLARI Beasley Referring Unavailable MILTON ALMANZAR Primary Care UnavailMilton Espana Primary Care Provider Dr. Milton Almanzar Primary Care Provider Dr. Milton Almanzar Referring Provider Dr. Gilberto Rasmussen Attending Provider Dr. Gilberto Rasmussen Attending Provider Dr. Gilberto Rasmussen Referring Provider DO Deysi Castro Primary Care Provider DO Deysi Castro Referring Provider Dr. Jose Ramon Terry Attending Provider Dr. Librado Benjamin Attending Provider Dr. Max Lara Emergency Provider Dr. Kenney Vizcarra Admit Provider Dr. Kenney Vizcarra Attending Provider Dr. Kenney Vizcarra Other Provider Dr. Chino Masters Attending Provider Dr. Chino Masters Other Provider Milton Almanzar Primary Care Provider Gerard South Unavailable Matthew, DO Deysi M Primary Care Provider Dr. Gilberto Rasmussen Attending Provider Dr. Gilberto Rasmussen Referring Provider Roof PERSONNEL SCHEDULER, PERSONNEL SCHEDULER-C Milton Tanner Attending Provider COTY Guevara Cristina Attending Provider Unavailable Doreen Baig ([facility]) Primary Care Provider Maryam vailable Matthew, DO [...] Matthew, DO Deysi M Referring Provider Roof PERSONNEL SCHEDULER, PERSONNEL SCHEDULER-C Milton Tanner Attending Provider COTY Guevara Cristina Attending Provider Unavailable Dr. Jose Ramon Mckenzie Attending Provider Matthew, DO Deysi M Primary Care Provider Matthew, DO Deysi M Referring Provider Dr. Gilberto Rasmussen Attending Provider Dr. Gilberto Rasmussen Referring Provider Scott LANE PA Jovan Baeza Attending Provider Matthew, DO Dyesi M Primary Care Provider Matthew, DO Deysi M Referring Provider Matthew, DO Deysi M Primary Care Provider Dr. Gilberto Rasmussen Attending Provider Dr. Gilberto Rasmussen Referring Provider Mtathew, DO Deysi M Referring Provider ARIANA Ackerman [...] Meir Zepeda MD Primary Care Provider Aj PERSONNEL SCHEDULER-C, Josefa Attending Provider Aj PERSONNEL SCHEDULER-C, Josefa Referring Provider Dr. Doris Yip MD Attending Provider Dr. Doris Yip MD Referring Provider Dr. Gilberto Rasmussen MD Attending Provider Dr. Gilberto Rasmussen MD Referring Provider Meir Zepeda MD Attending Provider Meir Zepeda MD Referring Provider Matthew DO, Deysi Baeza Primary Care Provider Magaly ROONEY, Dr. Albright Attending Provider Magaly ROONEY, Dr. Albright Referring Provider aRchelle ROONEY, Meir Primary Care Provider Aj PERSONNEL SCHEDULER-C, Josefa Attending Provider Aj PERSONNEL SCHEDULER-C, Josefa Referring Provider Theodora ROONEY, Dr. George [...] Provider Theodora ROONEY, Dr. George [facility] P[facility]-C, Manolo Other Provider Dr. Jose Ramon Terry DO Referring Provider Dr. Juan Manuel Enamorado DO Emergency Provider Harrison RICHTER, Dr. Albright Referring Provider Rachelle ROONEY, Chalon Primary Care Provider [phone] Jose Ramon Mckenzie MD Attending Provider Dr. Juan Manuel Enamorado DO Attending Provider Rachelle ROONEY, Chalon Primary Care Provider [phone] Grady ROONEY, Dr. Macias Attending Provider Grady ROONEY, Dr. Macias Referring Provider Rachelle ROONEY, Chalon Referring Provider Theodora ROONEY, Dr. George Attending Provider Theodora ROONEY, Dr. George Referring Provider Dio ROONEY, Dr. Gerard Attending Provider Rachelle ROONEY, Chaldaniel Attending Provider [phone] Rachelle ROONEY, Chalon Primary Care Provider [phone] Rachelle ROONEY, Chalon Referring Provider [phone] Cassidy ROONEY, Dr. Pavon Attending Provider [phone] Grady ROONEY, Dr. Macias Attending Provider Grady ROONEY, Dr. Macias Referring Provider [phone] Dio ROONEY, Dr. Gerard Attending Provider [facility] [phone] MANUELA MONTANA Attending Unavailable RACHELLE, CHALON Primary Care Unavailable RACHELLE, CHALON Referring Unavailable RACHELLE, CHALON Primary Care Unavailable MOOMAW, LEONARDO Referring Unavailable RACHELLE, CHALON Primary Care Unavailable MOOMAW, LEONARDO Attending Unavailable RACHELLE, CHALON Primary Care Unavailable Rachelle ROONEY, Chalon Primary Care Provider [phone] Jose Ramon Terry DO Attending Provider Rachelle ROONEY, Chaldaniel Referring Provider [phone] Mo ROONEY, Dr. Addi Ragland Attending Provider Dr. Jose Ramon Terry DO Admit Provider Dr. Jose Ramon Terry DO Other Provider Wanda ROONEY, Dr. Pizarro Other Provider Unavailable Tereletsky DO, Dr. Blackmon Other Provider Tereletsryan DO, Dr. Blackmon Attending Provider Alex ROONEY, Dr. An Attending Provider Rachelle ROONEY, Meir Primary Care Provider Grady ROONEY, Dr. Macias Attending Provider Grady ROONEY, Dr. Macias Referring Provider Theodora ROONEY, Dr. George Attending Provider Theodora ROONEY, Dr. George Referring Provider [facility] PERSONNEL SCHEDULER-C, Manolo Other Provider [facility], Dr. Zambrano Attending Provider [facility] DO, Dr. Zambrano Emergency Provider [facility] , Dr. Albright Attending Provider [facility] RICHTER, Dr. Albright Referring Provider Dio ROONEY, Dr. Gerard Attending Provider Rachelle ROONEY, Meir Attending Provider Meir Zepeda MD Referring Provider [phone] Mo ROONEY, Dr. Addi Ragland Attending Provider [facility] DO, Dr. Albright Admit Provider Harrison RICHTER, Dr. Albright Other Provider Wanda ROONEY, Dr. Pizarro Other Provider Unavailable Tereletsky DO, Dr. Blackmon Other Provider Tereletsky DO, Dr. Blackmon Attending Provider Alex ROONEY, Dr. An Attending Provider Semenhina DO, Dr. Farida Trivedi Admit Provider Sementi DO, Dr. Farida Trivedi Attending Provide r Sementi DO, Dr. Farida Trivedi Referring Provide r Sementi DO, Dr. Farida Trivedi Other Provider Elham ROONEY, Dr. Hwang Attending Provider Rachelle ROONEY, Meir Primary Care Physician Theodora ROONEY, Dr. George Attending Physician McMorrow PERSONNEL SCHEDULER-C, Manolo Nurse Practitioner [facility] , Dr. Zambrano Attending Physician Kelsea RICHTER, Dr. Zambrano Emergency Department Physici an [facility], Dr. Albright Attending Physician Dio ROONEY, Dr. Gerard Attending Physician Grady ROONEY, Dr. Macias Attending Physician Grady ROONEY, Dr. Macias Referring Provider Meir Zepeda MD Attending Physician [phone] Mo ROONEY, Dr. Addi Ragland Attending Physician [facility] , Dr. Albright Admitting Physician [facility], Dr. Albright Nurse Practitioner Wanda ROONEY, Dr. Pizarro Nurse Practitioner [facility] , Dr. Blackmon Nurse Practitioner [facility], Dr. Blackmon Attending Physician Alex ROONEY, Dr. An Attending Physician [facility], Dr. Farida Trivedi Admitting Physici an Semen DO, Dr. Farida Trivedi Attending Physici an Semen DO, Dr. Farida Trivedi Nurse Practitione r Elham ROONEY, Dr. Hwang Attending Physician NP. Candida Diaz Attending Physician NP. Candida Diaz Referring Provider Cassidy ROONEY, Dr. Pavon Attending Physician Meir Zepeda MD Primary Care Physician [facility] , Dr. Albright Attending Physician Dr. Jose Ramon Terry DO Referring Provider Rachelle, Chalon Primary Care Unavailable Dejuan Muñozy Consulting Unavailable Jaskaranruso, Jose Ramon Admitting Unavailable Borruso, Jose Ramon Referring Unavailable Borruso, Jose Ramon Attending Unavailable Chino Masters Consulting Unavailable Rachelle, Chalon Referring Unavailable Rachelle, Chalon Attending Unavailable Rachelle, Chalon Primary Care Unavailable Rachelle, Chalon Primary Care Unavailable Librado Benjamin Attending Unavailable Rachelle, Chalon Primary Care Unavailable Rachelle, Chalon Referring Unavailable Borruso, Jose Ramon Attending Unavailable Rachelle, Chalon Primary Care Unavailable Borruso, Jose Ramon Referring Unavailable Borruso, Jose Ramon Attending Unavailable Rachelle, Chalon Primary Care Unavailable PraJose Ramon tanner Attending Unavailable PrahJose Ramon Referring Unavailable Rachelle, Chalon Primary Care Unavailable JoeCandida Referring Unavailable JoeCandida mcintosh Attending Unavailable Rachelle, Chalon Primary Care Unavailable Vellanki, Doris Attending Unavailable Vellanki, Doris Referring Unavailable Rachelle, Chalon Primary Care Unavailable Rachelle, Chalon Referring Unavailable Rachelle, Chalon Attending Unavailable Rachelle, Chalon Primary Care Unavailable Borruso, Jose Ramon Referring Unavailable Nathalyso, Jose Ramon Attending Unavailable Rachelle, Chalon Primary Care Unavailable Juan Manuel Enamorado Attending Unavailable Rachelle, Chalon Primary Care Unavailable Vellanki, Doris Attending Unavailable Vellanki, Doris Referring Unavailable Rachelle, Chalon Primary Care Unavailable Rachelle, Chalon Attending Unavailable Rachelle, Chalon Referring Unavailable Rachelle, Chalon Primary Care Unavailable Vellanki, Doris Referring Unavailable Vellanki, Doris Attending Unavailable Rachelle, Chalon Primary Care Unavailable McMorrow PERSONNEL SCHEDULER, Manolo Consulting Unavailable Vellanki, Doris Referring Unavailable Vellanki, Doris Attending Unavailable Rachelle, Chalon Primary Care Unavailable Farida Zavala Referring Unavaila ble Sementi, Farida Trivedi Attending Unavaila ble Deysi Castro Primary Care Unavailable Jose Ramon Mckenzie Attending Unavailable PraJose Ramon tanner Referring Unavailable Gilberto Rasmussen Attending Unavailable Rachelle, Chalon Primary Care Unavailable Rachelle, Chalon Referring Unavailable Rachelle, Chalon Primary Care Unavailable Rachelle, Chalon Referring Unavailable NURSE, SOTO Attending Unavailable Rachelle, Chalon Primary Care Unavailable Librado Benjamin Attending Unavailable Rachelle, Chalon Primary Care Unavailable Yerger, Juarze Consulting Unavailable Borruso, Jose Ramon Admitting Unavailable Borruso, Jose Ramon Referring Unavailable Borruso, Jose Ramon Attending Unavailable TeroresteskyChino Consulting Unavailable Borruso, Jose Ramon Consulting Unavailable Rachelle, Chalon Primary Care Unavailable Baddour, Gilberto Referring Unavailable Baddour, Gilberto Attending Unavailable Rachelle, Chalon Primary Care Unavailable Baddour, Gilberto Referring Unavailable Baddour, Gilberto Attending Unavailable Rachelle, Chalon Primary Care Unavailable Baddour, Gilberto Referring Unavailable Baddour, Gilberto Attending Unavailable Rachelle, Chalon Primary Care Unavailable Rachelle, Chalon Referring Unavailable Borruso, Jose Ramon Attending Unavailable Rachelle, Chalon Primary Care Unavailable Baddour, Gilberto Referring Unavailable Baddour, Gilberto Attending Unavailable Rachelle, Chalon Primary Care Unavailable Sementi, Farida Trivedi Referring Unavaila ble Sementi, Farida Trivedi Admitting Unavaila ble Sementi, Farida Trivedi Consulting Unavaila ble Sementi, Farida Trivedi Attending Unavaila ble Tereletsky, Chino Attending Unavailable Rachelle, Chalon Primary Care Unavailable Sementi, Farida Trivedi Referring Unavaila ble ElhamJaiden Attending Unavailable Rachelle, Chalon Primary Care Unavailable Rachelle, Chalon Referring Unavailable Angela Bailey Attending Unavailable Juve Johnson Attending Unavailable Rachelle, Chalon Primary Care Unavailable Juarez Muñoz Consulting Unavailable Borruso, Jose Ramon Admitting Unavailable Borruso, Jose Ramon Referring Unavailable Borruso, Jose Ramon Attending Unavailable Borruso, Jose Ramon Consulting Unavailable Rachelle, Chalon Primary Care Unavailable Baddour, Gilberto Referring Unavailable Baddour, Gilberto Attending Unavailable Rachelle, Chalon Primary Care Unavailable Rachelle, Chalon Referring Unavailable Borruso, Jose Ramon Attending Unavailable Terorestesky, Chino Attending Unavailable Germánky, Chino Consulting Unavailable Rachelle, Chalon Referring Unavailable Rachelle, Chalon Primary Care Unavailable Borruso, Jose Ramon Attending Unavailable Rachelle, Chalon Primary Care Unavailable Baddour, Gilberto Referring Unavailable Baddour, Gilberto Attending Unavailable [place], Candida Attending Unavailable Joe Candida Referring Unavailable Rachelle, Chalon Primary Care Unavailable Rachelle, Chalon Attending Unavailable Rachelle, Chalon Primary Care Unavailable Rachelle, Chalon Primary Care Unavailable Borruso, Jose Ramon Attending Unavailable Borruso, Jose Ramon Referring Unavailable Rachelle, Chalon Primary Care Unavailable Vellanki, Doris Attending Unavailable Vellanki, Doris Referring Unavailable Aj PERSONNEL SCHEDULER, Josefa Referring Unavailable Rachelle, Chalon Primary Care Unavailable Aj PERSONNEL SCHEDULER, Josefa Attending Unavailable Rachelle, Chalon Primary Care Unavailable Borruso, Jose Ramon Referring Unavailable Borruso, Jose Ramon Attending Unavailable Aj PERSONNEL SCHEDULER, Josefa Attending Unavailable Aj PERSONNEL SCHEDULER, Josefa Referring Unavailable Rachelle, Chalon Primary Care Unavailable Rachelle, Chalon Primary Care Unavailable Rachelle, Chalon Referring Unavailable Prah, Jose Ramon Attending Unavailable Sementi, Farida Trivedi Attending Unavaila ble Rachelle, Chalon Primary Care Unavailable Sementi, Farida Trivedi Referring Unavaila ble Rachelle, Chalon Primary Care Unavailable Rachelle, Chalon Referring Unavailable Johnson, Juve Attending Unavailable Rachelle, Chalon Primary Care Unavailable Baddour, Gilberto Referring Unavailable Baddour, Gilberto Attending Unavailable Baddour, Gilberto Attending Unavailable Rachelle, Chalon Primary Care Unavailable Rachelle, Chalon Referring Unavailable Rachelle, Chalon Primary Care Unavailable Cassidy, Librado Attending Unavailable Rachelle, Chalon Primary Care Unavailable Baddour, Gilberto Attending Unavailable Baddour, Gilberto Referring Unavailable Rachelle, Chalon Primary Care Unavailable Sementi, Farida Trivedi Referring Unavaila ble Sementi, Farida Trivedi Admitting Unavaila ble Sementi, Farida Trivedi Attending Unavaila ble Allergies Allergy Classification Reported Allergen(s) Allergy Type Date of Onset Reaction(s) Facility (20 sources) Amoxicillin Drug Allergy 1 [facility] (20 sources) atorvastatin Drug Allergy 1 myalgiias [facility] Comment on above: muscle pain (20 sources) levoFLOXacin; Translations: [LEVOFLOXACIN] Drug Allergy 1 GI Upset, Vomiting [facility] Work Phone: (6 sources) Amoxicillin / Clavulanate; Translations: [AMOXICILLIN-POT CLAVULANATE] Drug Allergy 5 Rash [facility] Work Phone: (17 sources) atorvastatin; Translations: [ATORVASTATIN CALCIUM] Drug Allergy 5 Myalgia [facility] (17 sources) Sulfamethoxazole / Trimethoprim; Translations: [SULFAMETHOXAZOLE-TR IMETHOPRIM] Drug Allergy 9 GI Upset [facility] (1 source) Amoxicillin Drug Allergy 5 [facility] (1 source) atorvastatin Drug Allergy 5 [facility] (1 source) levoFLOXacin Drug Allergy 5 [facility] Medications Current Medications Medication Drug Class(es) Dates Sig (Normalized) Sig (Original) acetaminophen 500 mg oral tablet (17 sources) Start: 03-27-2025 End: 03-27-2025 amoxicillin 875 mg / clavulanate 125 mg oral tablet (3 sources) Penicillin-class Antibacterial Start: 03-24-2023 End: 04-11-2023 take 1 tablet by mouth twice daily amoxicillin-clav ulanic acid (AUGMENTIN) 875-125 mg per tablet Take 1 tablet by mouth twice daily for 18 days. 36 tablet 0 03/24/2023 04/11/2023 Active Comment on above: Take 1 tablet by leslie twice daily for 18 days. ascorbic acid 1000 mg oral tablet (6 sources) Vitamin C Start: 03-27-2025 biotin 10 mg oral capsule (20 sources) Start: 02-11-2014 End: 05-30-2021 Start: 02-11-2014 End: 05-30-2021 Biotin 10,000 MCG capsule Discontinued 5000 ug PO DAILY February 11, 2014 12:00am May 30, 2021 9:22am HAIR LOSS Start: 02-11-2014 End: 05-30-2021 take 5000 ug by mouth once daily Biotin Discontinued 5000 MCG PO DAILY February 11, 2014 12:00am May 30, 2021 9:22am Comment on above: Take by mouth. Take 1 capsule by mo [facility] once daily. calcium carbonate 1500 mg / cholecalciferol 500 unt oral capsule (20 sources) Vitamin D Start: 05-30-2021 Start: 05-30-2021 take 1 capsule by mo ut twice daily Calcium Carbonate-Vitamin D3 (Calcium 600 With Vitamin D3) 600 mg(1,500mg) -500 unit capsule Active 1 CAP PO TWICE A DAY May 30, 2021 1:00am Start: 03-28-2007 take 1 tablet by leslie once daily Calcium Carb-Cholecalciferol (VINCENT-600 WITH VITAMIN D) 600 (1,500)-200 mg-unit ORAL Tab Take 1 tablet by mouth once daily. 0 03/28/2007 Active Start: 03-28-2007 take 1 tablet by leslie th twice daily Calcium Carb-Cholecalciferol (VINCENT-600 WITH VITAMIN D) 600 (1,500)-200 mg-unit ORAL Tab Take one(1) tablet twice daily. 0 03/28/2007 Active Comment on above: Take one(1) tablet t wice daily. COMPOUNDED PRESCRIPTION (15 sources) Start: 04-28-2015 COMPOUNDED PRESCRIPTION cpap supplies: DX: sleep apnea 1 Each 0 04/28/2015 Active Comment on above: cpap supplies: DX: s leep apnea Cpap - Continuous Positive Airway Pressure([facility] Informational Use Only) device (3 sources) Start: 03-10-2025 Cpap - Continuous Positive Airway Pressure([facility] Informational Use Only) device Active 0 .ROUTE March 10, 2025 12:00am SLEEP APNEA As directed cyanocobalamin, vitamin B-12, (B-12 KIT INJECTION) (1 source) cyanocobalamin, vitamin B-12, (B-12 KIT INJECTION) 1 mL by INJECTION(UNSPECIFIED PARENTERAL ROUTES) route once every month. Active docusate sodium 50 mg / sennosides, fdc 8.6 mg oral tablet (8 sources) Start: 04-03-2025 ferrous sulfate 325 mg oral tablet (20 sources) Start: 02-11-2014 End: 04-03-2025 Start: 02-11-2014 take 325 mg by mouth once viviana y Ferrous Sulfate Active 325 MG PO DAILY@0800 February 11, 2014 12:00am Start: 08-15-2010 take 1 tablet by leslie twice daily at mealtime Ferrous Sulfate 325 mg (65 mg Iron) ORAL tablet Take 1 tablet by mouth twice daily. TAKE WITH FOOD 0 08/15/2010 Active Start: 08-15-2010 take 1 tablet by leslie th once daily at mealtime Ferrous Sulfate 325 mg (65 mg Iron) ORAL tablet Take one(1) tablet daily with food. 0 08/15/2010 Active Comment on above: Take one(1) tablet d aily with food. Take 1 tablet by leslie th twice daily. TAKE WITH FOOD gabapentin 300 mg oral capsu le (20 sources) Anti-epileptic Agent Start: 04-03-2025 Start: 03-27-2025 End: 04-03-2025 Start: 01-18-2024 End: 03-27-2025 Start: 01-18-2024 End: 10-06-2024 take 1 capsule by mouth twice daily Gabapentin 300 mg capsule Active 300 mg PO TWICE A DAY October 06, 2024 11:32am PAIN Start: 01-18-2024 End: 10-06-2024 take 1 capsule [...] EDT 03/24/2023 Active Start: 05-30-2021 End: 07-10-2023 Start: 05-30-2021 End: 07-10-2023 Start: 05-30-2021 End: 07-10-2023 Gabapentin 300 mg capsule Discontinued 100 mg PO TWICE A DAY May 30, 2021 1:00am July 10, 2023 3:06pm Start: 05-30-2021 End: 07-10-2023 take 100 mg by mouth twice daily Gabapentin Discontinued 100 MG PO TWICE A DAY May 30, 2021 1:00am July 10, 2023 3:06pm Comment on above: Take 1 capsule by [facility] every 12 hours for 30 days. lisinopril 20 mg oral tablet (8 sources) Angiotensin Converting Enzyme Inhibitor Start: 04-03-2025 methotrexate 2.5 mg oral tab let (20 sources) Folate Analog Metabolic Inhibitor Start: 02-25-2025 Start: 02-25-2025 Methotrexate S odium 2.5 mg tablet Active 20 mg PO SA February 25, 2025 12:00am OA On Hold: Hold until after 2 weeks postop visit Start: 10-06-2024 End: 11-07-2024 Start: 10-06-2024 End: 11-07-2024 Methotrexate Sodium 2.5 [...] Active Start: 03-28-2007 take 1 tablet by leslie th once daily multivitamin (DAILY VITAMIN) ORAL Tab Take one(1) tablet daily. 0 03/28/2007 Active Comment on above: Take one(1) tablet d aily. Take 1 tablet by leslie th once daily. Multivitamin With Folic Acid (20 sources) Start: 02-11-2014 take 1 tablet by mouth once daily Multivitamin With Folic Acid Active 1 TABLET PO DAILY February 11, 2014 9:06am Start: 02-11-2014 take 1 tablet by leslie th once daily Multivitamin With Folic Acid Active 1 TABLET PO DAILY February 10, 2014 11:00pm Start: 02-11-2014 take 1 tablet by leslie th once daily Multivitamin With Folic Acid Active 1 TABLET PO DAILY February 11, 2014 12:00am Multivitamin With Folic Acid 1 TABLET tablet (14 sources) Start: 02-11-2014 take 1 tablet by mouth once daily Multivitamin With Folic Acid 1 TABLET tablet Active 1 {tbl} PO DAILY February 11, 2014 12:00am SUPPLEMENT Start: 02-11-2014 take 1 tablet by leslie th once daily Multivitamin With Folic Acid 1 TABLET tablet Active 1 {tbl} PO DAILY February 11, 2014 12:00am omeprazole 20 mg delayed rel ease oral capsule (20 sources) Proton Pump Inhibitor Start: 03-10-2025 Start: 02-11-2014 End: 11-07-2024 Start: 02-11-2014 End: 11-07-2024 take 1 capsule by mouth twice daily Omeprazole 20 MG capsule Discontinued 20 mg PO TWICE A DAY February 11, 2014 12:00am November 07, 2024 1:52pm REFLUX Comment on above: TAKE 1 CAPSULE TWICE A DAY 30 MINUTES BEFORE MEALS polyethylene glycol 3350 36639 mg powder for oral solution (15 sources) Osmotic Laxative Start: 10-26-2015 polyethylene glycol 3350 (MIRALAX) 17 gram/dose powder 17 g/8 oz water daily as needed for constipation 1 Bottle 5 10/26/2015 Active Comment on above: 17 g/8 oz water viviana y as needed for constipation polyethylene glycol 3350 564532 mg / potassium chloride 2970 mg / sodium bicarbonate 6740 mg / sodium chloride 5860 mg / sodium sulfate 46295 mg powder for oral solution (1 source) Osmotic Laxative Start: 04-28-2022 End: 04-28-2022 peg 3350-Electrolytes (GOLYTELY) 236-22.74-6.74 -5.86 gram suspension Take 4,000 mL by mouth one time only for 1 dose. 1 Each 0 04/28/2022 04/28/2022 Active Comment on above: Take 4,000 mL by leslie one time only for 1 dose. traMADol hydrochloride 50 mg oral tablet (20 sources) Opioid Agonist Start: 01-25-2023 End: 04-03-2025 traZODone hydrochloride 50 mg oral tablet (20 sources) Serotonin Reuptake Inhibitor Start: 02-11-2014 End: 03-13-2025 Start: 02-11-2014 take 2 tablets by mo [facility] at bedtime Trazodone 50 MG tablet Active 100 mg PO AT BEDTIME February 11, 2014 12:00am SLEEP take 1 tablet by leslie once daily at bedtime traZODone (DESYREL) 100 mg tablet Take 100 mg by mouth daily at bedtime. Active Comment on above: Take 1 tablet by leslie daily at bedtime. warfarin sodium 4 mg oral tablet (20 sources) Vitamin K Antagonist Start: 03-10-2025 Start: 03-10-2025 Warfarin 4 mg tablet Active 8 mg PO MOFR March 10, 2025 12:00am BLOOD THINNER Start: 01-23-2023 End: 04-03-2025 Start: 01-23-2023 Warfarin (Warf skylar 5 Mg Tablet) 5 mg tablet Active 7.5 MG PO MOWE January 23, 2023 12:00am Start: 05-30-2021 Warfarin Activ e 3 MG PO .COMPLEX May 30, 2021 1:00am 3 mg PO; TUES, THMADY, SAT, SUN Start: 09-15-2020 End: 05-30-2021 Start: 09-15-2020 End: 05-30-2021 Start: 09-15-2020 End: 05-30-2021 Warfarin 7.5 mg [...] Take 7.5 mg by mouth once daily. (20 sources) Start: 04-03-2025 Start: 03-27-2025 Start: 03-10-2025 Start: 01-18-2024 End: 11-07-2024 Start: 02-11-2014 Start: 02-11-2014 End: 04-03-2025 Completed/Discontinued Medications Medication Drug Class(es) Dates Sig (Normalized) Sig (Original) acetaminophen 325 mg / HYDROcodone bitartrate 5 mg oral tablet (20 sources) Opioid Agonist Start: 04-06-2025 End: 04-13-2025 Start: 03-24-2023 End: 03-31-2023 take 1 tablet by mouth every six hours as needed for pain HYDROcodone-acetaminophen (NORCO) 5-325 mg per tablet Indications: Empyema (HCC) , Postoperative pain , Pain, acute post-thoracotomy Take 1 tablet by mouth every 6 hours as needed for pain for up to 7 days. 28 tablet 0 03/24/2023 03/31/2023 Active Start: 12-15-2018 End: 09-10-2019 Start: 12-15-2018 End: 09-10-2019 Hydrocodone-Acetaminophen 1 EACH tablet Discontinued 1 NMA PO EVERY 4 HOURS NEEDED as needed for Pain December 15, 2018 7:04am September 10, 2019 2:41pm Personal history of urinary calculi Start: 12-15-2018 End: 09-10-2019 Hydrocodone-Acetaminophen Di scontinued 1 EACH PO EVERY 4 HOURS NEEDED December 15, 2018 7:04am September 10, 2019 2:41pm Comment on above: Take 1 tablet by leslie every 6 hours as needed for pain for up to 7 days. acetaminophen 325 mg / oxyCO DONE hydrochloride 5 mg oral tablet (18 sources) Opioid Agonist Start: 01-12-2025 End: 02-25-2025 Start: 01-12-2025 End: 02-25-2025 Oxycodone-Acetaminophen (Per cocet) 5-325 mg tablet Discontinued 1 {tbl} PO Q8H as needed for pain 14 3 0 January 12, 2025 February 25, 2025 9:56am Back pain Dorsalgia, unspecified ALPRAZolam 0.5 mg oral table t (20 sources) Benzodiazepine Start: 06-29-2022 End: 10-30-2022 Start: 06-29-2022 End: 10-30-2022 Alprazolam 0.5 mg tablet Dis continued 0.5 mg PO .COMPLEX 1 0 June 29, 2022 1:00am October 30, 2022 2:24pm Claustrophobia Claustrophobia 0.5 mg orally x1 to be taken 30 minutes prior to MRI apixaban 5 mg oral tablet (20 sources) Factor Xa Inhibitor Start: 01-18-2017 End: 04-28-2022 Comment on above: Take 1 tablet by leslie twice daily. baclofen 20 mg oral tablet (20 sources) gamma-Aminobutyric Acid-ergic Agonist Start: 02-27-2023 End: 03-01-2023 Start: 10-30-2022 End: 02-27-2023 busPIRone hydrochloride 5 mg oral tablet (20 sources) Start: 03-10-2019 End: 03-10-2025 End: 03-13-2025 take 1 tablet by mouth every twelve hours as needed busPIRone (BUSPAR) 15 mg tablet Take 15 mg by mouth twice daily as needed (anxiety). 03/13/2025 Discontinued (Discontinued by Patient) Comment on above: TAKE 1 TABLET BY LESLIE THREE TIMES DAILY NEEDED (ANXIETY). Take 15 mg by mouth twice daily as needed (anxiety). calcium citrate 1500 mg / cholecalciferol 250 unt oral tablet (20 sources) Vitamin D Start: 02-11-2014 End: 05-30-2021 Start: 02-11-2014 End: 05-30-2021 Calcium Citrate-Vitamin D3 1 EACH tablet Discontinued 1 NMA PO TWICE DAILY WITH MEALS February 11, 2014 12:00am November 8th, 2021 9:21am SUPPLEMENT Start: 02-11-2014 End: 05-30-2021 Calcium Citrate-Vitamin D3 D iscontinued 1 EACH PO TWICE DAILY WITH MEALS February 11, 2014 12:00am May 30, 2021 9:21am cefdinir 300 mg oral capsule (20 sources) Cephalosporin Antibacterial Start: 01-25-2023 End: 03-11-2023 cephalexin 250 mg oral capsu le (20 sources) Cephalosporin Antibacterial Start: 01-18-2024 End: 10-06-2024 Start: 01-18-2024 End: 10-06-2024 take 1 capsule by mouth at bedtime Cephalexin 250 mg capsule Discontinued 250 mg PO AT BEDTIME January 18, 2024 12:00am October 06, 2024 11:32am Start: 12-14-2018 End: 09-10-2019 Start: 12-14-2018 End: 09-10-2019 take 1 capsule by mouth at bedtime Cephalexin 250 MG capsule Discontinued 250 mg PO AT BEDTIME December 14, 2018 12:00am September 10, 2019 2:41pm RECURRENT UTI ciprofloxacin 500 mg oral tablet (20 sources) Quinolone Antimicrobial Start: 12-15-2018 End: 09-10-2019 cyclobenzaprine hydrochloride 10 mg oral tablet (18 sources) Muscle Relaxant Start: 01-12-2025 End: 03-10-2025 dapagliflozin 10 mg oral tablet (5 sources) Sodium-Glucose Cotransporter 2 Inhibitor End: 03-13-2025 take 1 tablet by mouth once daily at breakfast dapagliflozin propanediol (FARXIGA) 10 mg tablet Take 10 mg by mouth daily with breakfast. 03/13/2025 Discontinued dexamethasone 4 mg oral tablet (20 sources) Corticosteroid Start: 06-13-2021 End: 06-27-2022 doxycycline monohydrate 100 mg oral capsule (20 sources) Tetracycline-class Drug Start: 01-20-2023 End: 01-25-2023 DULoxetine 60 mg delayed release oral capsule (20 sources) Serotonin and Norepinephrine Reuptake Inhibitor Start: 01-29-2025 End: 04-03-2025 Start: 01-18-2024 End: 04-03-2025 0.4 ml enoxaparin sodium 100 mg/ml prefilled syringe (9 sources) Low Molecular Weight Heparin Start: 03-27-2025 End: 04-03-2025 Start: 03-27-2025 Enoxaparin (Lo venox) 40 mg/0.4 mL syringe Active 40 mg SC DAILY 4 0 March 27, 2025 12:00am Discontinue when INR therapeutic estradiol 0.1 mg/ml vaginal cream (20 sources) Estrogen Start: 01-18-2024 End: 11-07-2024 Start: 01-18-2024 End: 11-07-2024 Estradiol 0.01 % (0.1 mg/gra m) cream Discontinued VAGINAL January 18, 2024 12:00am [...] Comment on above: Take 1 tablet by leslie th once daily. hydroCHLOROthiazide 12.5 mg / lisinopril 20 mg oral tablet (20 sources) Thiazide Diuretic, Angiotensin Converting Enzyme Inhibitor Start: 10-06-2024 End: 03-27-2025 Start: 10-06-2024 Lisinopril-Hyd rochlorothiazide 20-12.5 mg tablet Active 1 {tbl} PO daily October 06, 2024 12:00am BP Start: 01-23-2023 End: 10-06-2024 Start: 01-23-2023 End: 10-06-2024 Lisinopril-Hydrochlorothiazi de 20-25 mg tablet Discontinued 1 {tbl} PO DAILY January 23, 2023 12:00am October 06, 2024 11:33am BP Start: 01-23-2023 take 1 tablet by leslie th once daily Lisinopril-Hydrochlorothiazide Active 1 TABLET PO DAILY January 23, 2023 12:00am Start: 11-01-2018 take 10-12.5 mg by mouth once lisinopril-hydrochlorothiazide (PRINZIDE,ZESTORETIC) 10-12.5 mg per tablet Take 1 tablet by mouth once daily. 90 tablet 3 11/01/2018 Active Start: 02-11-2014 End: 01-23-2023 Start: 02-11-2014 End: 01-23-2023 Lisinopril-Hydrochlorothiazi de 1 TABLET tablet Discontinued 1 {tbl} PO DAILY February 11, 2014 12:00am January 23, 2023 8:01am BLOOD PRESSURE Start: 02-11-2014 End: 01-23-2023 take 1 tablet by mouth once daily Lisinopril-Hydrochlorothiazide Discontin ued 1 TABLET PO DAILY February 11, 2014 12:00am January 23, 2023 8:01am Comment on above: Take 1 tablet by leslie th once daily. hydroxychloroquine sulfate 2 00 mg oral tablet (20 sources) Antimalarial, Antirheumatic Agent Start: 07-03-2023 End: 10-06-2024 Start: 07-03-2023 End: 10-06-2024 take 1 tablet [...] units >400 give 10units and notify PCP loratadine 10 mg oral tablet (20 sources) Start: 08-01-2024 End: 03-24-2025 meclizine hydrochloride 25 mg oral tablet (20 sources) Antiemetic Start: 02-14-2022 End: 03-27-2025 Comment on above: Take 25 mg by mouth twice daily. metFORMIN hydrochloride 1000 mg oral tablet (20 sources) Biguanide Start: 02-11-2022 take 1 tablet by mouth twice daily at mealtime metFORMIN (GLUCOPHAGE) 500 mg tablet Take 500 mg by mouth twice daily with meals. 02/11/2022 Active Start: 05-30-2021 End: 04-03-2025 Start: 05-30-2021 End: 10-06-2024 Metformin 1,000 mg tablet Discontinued 500 mg PO TWICE A DAY May 30, 2021 1:00am October 06, 2024 11:36am Start: 05-30-2021 take 500 mg by mouth twice daily Metformin Active 500 MG PO TWICE A DAY May 30, 2021 1:00am Start: 05-30-2021 take 1000 mg by mout h once daily Metformin Active 1000 MG PO DAILY May 30, 2021 1:00am Comment on above: Take 500 mg by mouth twice daily with meals. methylPREDNISolone acetate 40 mg/ml injectable suspension (3 [...] sources) Nitrofuran Antibacterial Start: 10-19-2023 End: 10-26-2023 Start: 07-25-2023 End: 07-30-2023 Drug Treatment Unknown - unknown (1 source) No information a vailable. oxyCODONE hydrochloride 5 mg oral tablet (9 sources) Opioid Agonist Start: 03-27-2025 End: 03-27-2025 Prednisone (20 sources) Start: 03-11-2023 End: 10-06-2024 Start: 03-11-2023 End: 10-06-2024 Prednisone 10 mg [...] Nonergot Dopamine Agonist Start: 04-25-2022 End: 03-10-2025 Start: 02-14-2022 End: 04-25-2022 Start: 10-21-2018 rOPINIRole (RE QUIP) 0.5 mg tablet Take by mouth twice daily. 0 10/21/2018 Active Comment on above: Take by mouth twice daily. Take 4 mg by mouth d aily at bedtime. tiZANidine 4 mg oral tablet (20 sources) Central alpha-2 Adrenergic Agonist Start: End: take 2 tablets by mouth at bedtime Tizanidine 4 mg tablet Discontinued 8 mg PO AT BEDTIME 180 2 August 21, 2024 4:42pm January 30, 2025 1:03pm muscle spasticity/leg restlessness Start: 11-06-2023 take 8 mg by mouth at bedtime Tizanidine Active 8 MG PO AT BEDTIME 180 November 06, 2023 2:19pm Start: 07-10-2023 End: 04-03-2025 varenicline 1 mg oral tablet (1 source) Partial Cholinergic Nicotinic Agonist Start: 04-22-2019 End: 04-28-2022 take 1 tablet by mouth twice daily varenicline (CHANTIX CONTINUING MONTH BOX) 1 mg tablet Indications: Tobacco use disorder Take 1 tablet by mouth twice daily. 1 Package 1 04/22/2019 04/28/2022 Discontinued Comment on above: Take 1 tablet by leslie twice daily. venlafaxine 75 mg oral tablet (20 sources) Serotonin and Norepinephrine Reuptake Inhibitor Start: 02-11-2014 End: 07-10-2023 Comment on above: Take 1 tablet by leslie hidalgo twice daily. vitamin b12 0.5 mg oral tablet (20 sources) Vitamin B12 Start: 08-15-2010 End: 03-13-2025 Comment on above: Take one (1) tablet daily Problems Active Problems Problem Classification Problem Date Documented Da te Episodic/Chronic Acute posthemorrhagic anemia (20 sources) Acute posthemorrhagic anemia; Translations: [Acute posthemorrhagic anemia] Onset: 3 03-17-2023 Episodic Anxiety disorders (20 sources) Claustrophobia; Translations: [...] vestibular function, unspecified ear] Onset: 5 Episodic Deficiency and other anemia (1 source) Anemia, unspecified; Translations: [Anemia, unspecified] Onset: 5 Episodic Diabetes mellitus with complications [...] white blood cell count, unspecified] Onset: 3 08-26-2023 Chronic Disorders of lipid metabolism (15 sources) Hyperlipidemia; Translations: [Hyperlipidemia, unspecified] Onset: 4 03-15-2015 Chronic Esophageal disorders (15 sources) Gastroesophageal reflux disease; Translations: [Gastro-esophageal reflux disease without esophagitis] Onset: 2 03-14-2012 Chronic Essential hypertension (20 sources) Benign essential hypertension; Translations: [Essential (primary) hypertension] Onset: 1 08-15-2010 Chronic Genitourinary symptoms and ill-defined conditions (20 sources) Blood in urine; Translations: [Hematuria, unspecified] 04-19-2023 Episodic Headache; including migraine (2 sources) Migraine without aura, not intractable, without status migrainosus; Translations: [Migraine without aura, not intractable, without status migrainosus] Onset: 5 Chronic Immunizations and screening for infectious disease (20 sources) Patient encounter status; Translations: [Encounter for screening for COVID-19] Onset: 5 Episodic Comment on above: Labs 10/01/2023 revie wed. SFLC mildly elevated.No M-spike. Labs 09/29/2024 revie wed. SFLC mildly elevated.No M-spike. Malaise and fatigue (1 source) Chronic fatigue, unspecified; Translations: [Chronic fatigue, unspecified] Onset: 5 Chronic Malaise and fatigue (20 sources) Fatigue; Translations: [Other fatigue] Onset: 5 10-30-2022 Episodic Mood disorders (5 sources) Depressive [...] thigh] Onset: 5 12-25-2022 Chronic Other aftercare (20 sources) Long-term current use of anticoagulant; Translations: [MCC (current) use of anticoagulants] Onset: 6 02-08-2016 Episodic Other aftercare (2 sources) Surgical follow-up; Translations: [Encounter for follow-up examination after completed treatment for conditions other than malignant neoplasm] 03-30-2023 Episodic Other aftercare (1 source) Drug-induced immunodeficiency ; Translations: [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)] 03-13-2025 Episodic Other aftercare (1 source) Other termite treater (current) drug therapy; Translations: [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)] Onset: 5 Episodic Other aftercare (16 sources) Follow-up status; Translations: [Encounter for other orthopedic aftercare] 04-06-2025 Episodic Other aftercare (2 sources) MCC (current) use of anticoagulants; Translations: [predatory animal exterminator (current) use of anticoagulants] Onset: 5 Episodic Other and ill-defined cerebrovascular disease (20 [...] fatty liver and no adrenal mass. Other circulatory disease (16 sources) Inferior vena cava filter in situ; Translations: [Presence of other vascular implants and grafts] 04-04-2025 Chronic Other circulatory disease (1 source) Presence of other vascular implants and grafts; Translations: [Presence of other vascular implants and grafts] Onset: Chronic Other connective tissue disease (20 sources) History of total hip arthroplasty; Translations: [Presence of right artificial hip joint] 03-25-2025 Chronic Other connective tissue disease (2 sources) Presence of right artificial hip joint; Translations: [Presence of right artificial hip joint] Onset: Chronic Other connective tissue disease (20 sources) Pain [...] unspecified] 03-01-2023 Episodic Other connective tissue disease (16 sources) Trochanteric bursitis; Translations: [Trochanteric bursitis, right hip] 01-18-2024 Episodic Other connective tissue disease (20 sources) Fibromyalgia; Translations: [Fibromyalgia] 01-30-2025 Episodic Other connective tissue disease (6 sources) Trochanteric bursitis of right hip; Translations: [Trochanteric bursitis, right hip] 04-04-2025 Episodic Other connective tissue disease (2 sources) Fibromyalgia; Translations: [Fibromyalgia] Onset: Episodic Other connective tissue disease (1 source) Pain in right leg; Translations: [Pain in right leg] Onset: Episodic Other hereditary and degenerative nervous system [...] injuries and conditions due to external causes (20 sources) Open wound; Translations: [Other injury of unspecified body region, initial encounter] 04-27-2023 Episodic Other liver diseases (20 sources) Steatosis of liver; Translations: [Fatty (change of) liver, not elsewhere classified] 10-10-2024 Chronic Other liver diseases (1 source) Fatty (change of) liver, not elsewhere classified; Translations: [Fatty (change of) liver, not elsewhere classified] Onset: 5 Chronic Other lower respiratory disease (1 source) [...] Translations: [Unspecified hereditary and idiopathic peripheral neuropathy] Onset: 5 Chronic Other nervous system disorders (8 sources) Chronic pain syndrome; Translations: [Chronic pain syndrome] 04-04-2025 Chronic Other nervous system disorders (1 source) Chronic pain syndrome; Translations: [Chronic pain syndrome] Onset: 5 Chronic Other nervous system disorders (9 sources) Acute postoperative pain; Translations: [Other acute postprocedural pain] 03-27-2025 Episodic Other nervous system disorders (1 source) Other acute postprocedural pain; Translations: [Other acute postprocedural pain] Onset: 5 Episodic Other non-traumatic joint disorders (20 sources) Hip pain; Translations: [Pain in right hip] 12-25-2022 Episodic Other non-traumatic joint disorders (4 sources) Acute ankle pain; Translations: [Pain in left ankle and joints of left foot] 12-27-2024 Episodic Other non-traumatic joint disorders (1 source) Pain in left ankle and joints of left foot; Translations: [Acute left ankle pain] Onset: 5 Episodic Other nutritional; endocrine; and metabolic disorders (20 sources) Obese class II; Translations: [Obesity, unspecified] [...] of blood and blood-forming organs] 10-30-2022 Episodic Phlebitis; thrombophlebitis and thromboembolism (20 sources) [...] Onset: 3 01-20-2023 Episodic Pulmonary heart disease (20 sources) H/O: pulmonary embolus; Translations: [Personal history of pulmonary embolism] Onset: 5 06-15-2015 Episodic Residual codes; unclassified (16 sources) Obstructive sleep apnea syndrome; Translations: [Obstructive sleep apnea (adult) (pediatric)] 04-04-2025 Chronic Residual codes; unclassified (1 source) Obstructive sleep apnea (adult) (pediatric); Translations: [Obstructive sleep apnea (adult) (pediatric)] Onset: Chronic Residual codes; unclassified (1 source) Other specified personal risk factors, not elsewhere classified; Translations: [Encounter for gynecologic examination for high-risk patient covered by Medicare] Onset: 5 Episodic Rheumatoid arthritis and related disease (18 sources) Rheumatoid arthritis; Translations: [Rheumatoid arthritis, unspecified] Onset: 5 04-04-2025 Chronic Spondylosis; intervertebral disc disorders; other back problems (20 sources) Degeneration of lumbar intervertebral disc; Translations: [Other intervertebral disc degeneration, lumbar region] 11-08-2023 Chronic Spondylosis; intervertebral disc disorders; other back problems (20 sources) Cervical radiculitis; Translations: [Radiculopathy, cervical region] Onset: 5 09-15-2020 Episodic Unclassified (1 source) No current problems or disability 02-15-2017 Unclassified (15 sources) Chronic deep venous thrombosis of lower extremity; Translations: [DVT, recurrent, lower extremity, chronic] Onset: 6 08-19-2015 Unclassified (20 sources) Primary osteoarthritis of right hip; Translations: [M16.11 - Unilateral primary osteoarthritis, right hip] Unclassified (1 source) 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); Translations: [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)] Onset: 5 Unclassified (1 source) Obesity, class 2; Translations: [Obesity, class 2] Onset: 5 Unclassified (1 source) Low back pain, unspecified; Translations: [Low back pain, unspecified] Onset: 5 Past or Other Problems Problem Classification Problem Date Documented Date Episodic/Chronic Abdominal hernia (5 sources) Disorder of abdominal wall; Translations: [Ventral hernia without obstruction or gangrene] Onset: 08-15-2010 Resolved: 05-13-2014 05-13-2014 Episodic Abdominal pain (1 source) Unspecified abdominal pain; Translations: [Unspecified abdominal pain] Onset: 01-16-2025 Episodic Acute and unspecified renal failure (10 sources) Acute injury of kidney; Translations: [Acute kidney failure, unspecified] Onset: 03-19-2023 03-20-2023 Episodic Bacterial infection; unspecified site (10 sources) Streptococcal infectious disease; Translations: [Streptococcal infection, unspecified site] Onset: 03-17-2023 03-18-2023 Episodic Gastroduodenal ulcer (except hemorrhage) (5 sources) Acute gastrojejunal ulcer; Translations: [Acute gastrojejunal ulcer without hemorrhage or perforation] Onset: 06-16-2008 Resolved: 12-28-2014 12-28-2014 Episodic Other aftercare (10 sources) Insulin dose changed; Translations: [MCC (current) use of insulin] Onset: 03-23-2023 03-23-2023 Episodic Other and unspecified benign neoplasm (11 [...] Translations: [Other respiratory abnormalities] 03-11-2023 Episodic Other nervous system disorders (5 sources) [...] to proceed. Otitis media and related conditions (5 sources) [...] Test Name Value Interpretation Reference Range Facility Office Visit Reporton 2024 Office Visit Report Normal [facility] Inital Evaluation (1) - PTon 05-19-2025 Inital Evaluation (1) - PT Normal [facility] Ankle min 3 Viewson 05-04-20 25 Ankle min 3 Views Normal [facility] Foot min 3 Viewson 5 Foot min 3 Views Normal [facility] HIP, UNI W/ Pelvis 2-3 Views on 05-04-2025 HIP, UNI W/ Pelvis 2-3 Views Normal [facility] Office Visit Reporton 2024 Office Visit Report Normal [facility] Orthopedic Visit Reporton Orthopedic Visit Report Normal [facility] CBC-Complete Blood Cnt No Di ffon 04-17-2025 Erythrocyte distribution width (RBC) [Ratio] 14.6 % Normal 11.6-14.6 [facility] Comment on above: Performed By: #### L 100.0500, L503.0106 ####[facility] [id number] [place], [place], [id number] Hematocrit (Bld) [Volume fraction] 32.5 % Low 37-47 [facility] Comment on above: Performed By: #### L 100.0500, L503.0106 ####[facility] [id number] [place], [address] Hemoglobin (Bld) [Mass/Vol] 10.4 g/dL Low 12.0-15. 0 [facility] Comment on above: Performed By: #### L 100.0500, L503.0106 ####[facility] [id number] [place], [address] MCH (RBC) [Entitic mass] 29.3 pg Normal 27.0-32.0 [facility] Comment on above: Performed By: #### L 100.0500, [id number] ####[facility] [id number] [place], [address] MCHC (RBC) [Mass/Vol] 32.0 g/dL Normal 32-36 [facility] Comment on above: Performed By: #### L 100.0500, [id number] ####[facility] [id number] [place], [address] MCV (RBC) [Entitic vol] 91.5 fL Normal 81-99 [facility] Comment on above: Performed By: #### L 100.0500, [id number] ####[facility] [id number] [place], [address] Platelet mean volume (Bld) [Entitic vol] 9.5 fL Normal 6.2-12.0 [facility] Comment on above: Performed By: #### L 100.0500, [id number] ####[facility] [id number] [place], [address] Platelets (Bld) [#/Vol] 394 10*3/uL Normal 150-450 [facility] Comment on above: Performed By: #### L 100.0500, [id number] ####[facility] [id number] [place], [address] RBC (Bld) [#/Vol] 3.55 10*6/uL Low 4.2-5.4 [facility] Comment on above: Performed By: #### L 100.0500, [id number] ####[facility] [id number] [place], [address] RDW SD 48.3 fl High 35.1-43.9 [facility] Comment on above: Performed By: #### L 100.0500, [id number] ####[facility] [id number] [place], [address] WBC (Bld) [#/Vol] 6.0 10*3/uL Normal 4.4-11.0 [facility] Comment on above: Performed By: #### L 100.0500, [id number] ####[facility] [id number] [place], [address] Erythrocyte distribution wid th ratioOrdered By: Meir Zepeda on 04-17-2025 Erythrocyte distribution width (RBC) [Ratio] 14.6 % 11.6-14.6 [facility] Erythrocyte distribution wid th standard deviationOrdered By: Meir Zepeda on 04-17-2025 Erythrocyte distribution width (RBC) [Ratio] 48.3 fl High 35.1-43.9 [facility] Hematocrit Auto (Bld) [Volum e fraction]Ordered By: Meir Zepeda on 04-17-2025 Hematocrit (Bld) [Volume fraction] 32.5 % Low 37-47 [facility] Hemoglobin measurementOrdere d By: Meir Zepeda on 04-17-2025 Hemoglobin (Bld) [Mass/Vol] 10.4 g/dL Low 12.0-15. 0 [facility] MCV (mean corpuscular volume ) determinationOrdered By: Meir Zepeda on 04-17-2025 MCV (RBC) [Entitic vol] 91.5 fL 81-99 [facility] Mean corpuscular hemoglobin (MCH) determinationOrdered By: Meir Zepeda on 04-17-2025 MCH (RBC) [Entitic mass] 29.3 pg 27.0-32.0 [facility] Platelet countOrdered By: Jose Zepeda on 04-17-2025 Platelets (Bld) [#/Vol] 394 10*3/uL 150-450 [facility] RBC Auto (Bld) [#/Vol]Ordere d By: Meir Zepeda on 04-17-2025 RBC (Bld) [#/Vol] 3.55 10*6/uL Low 4.2-5.4 [facility] Vitamin B12on 04-17-2025 Cobalamin (Vitamin B12) [Mass/Vol] 922 pg/mL High 180-914 [facility] Comment on above: Order Comment: Order Date: 02/19/25Order Info: [id number] - LIPID Performed By: #### L 100.0500, L503.0106 ####[facility] [id number] [place], [address] Vitamin B12 ser/plasOrdered By: eMir Zepeda on 04-17-2025 Cobalamin (Vitamin B12) [Mass/Vol] 922 pg/mL High 180-914 [facility] White blood cell (WBC) count Ordered By: Meir Zepeda on 04-17-2025 WBC (Bld) [#/Vol] 6.0 10*3/uL 4.4-11.0 [facility] Orthopedic Visit Reporton Orthopedic Visit Report Normal [facility] Prothrombin Time w/INRon INR Coag (PPP) [Relative time] 2.1 {INR} Normal [facility] Comment on above: Performed By: #### L 300.3900 ####[facility] [id number] [place], [place], [id number] PT Coag (PPP) [Time] 24.1 s High 11.7-14.9 [facility] Comment on above: Performed By: #### L 300.3900 ####[facility] [id number] [place], [address] Prothrombin timeOrdered By: Farida Zavala on 04-06-2025 PT Coag (PPP) [Time] 24.1 s High 11.7-14.9 [facility] Prothrombin Time w/INRon INR Coag (PPP) [Relative time] 2.7 {INR} Normal [facility] Comment on above: Performed By: #### L 300.3900 ####[facility] [id number] [place], [address] PT Coag (PPP) [Time] 29.3 s High 11.7-14.9 [facility] Comment on above: Performed By: #### L 300.3900 ####[facility] [address] [place], [address] Prothrombin timeOrdered By: Farida Wallhina on 04-04-2025 PT Coag (PPP) [Time] 29.3 s High 11.7-14.9 [facility] Discharge Instructionon 03-23 Discharge Instruction Normal [facility] Prothrombin Time w/INRon INR Coag (PPP) [Relative time] 3.9 {INR} Normal [facility] Comment on above: Performed By: #### L 300.3900 ####[facility] [address] [place], [address] PT Coag (PPP) [Time] 38.8 s High 11.7-14.9 [facility] Comment on above: Performed By: #### L 300.3900 ####[facility] [address] [place], [address] Bedside Glucoseon 04-02-2025 FINGERSTICK GLU 132 mg/dL High 74-106 [facility] Comment on above: Result Comment: REINALDO GEMENT OF PATIENT CARE PER NURSING PROTOCOL Performed By: #### L 501.080 ####[facility] [address] [place], [address] Glucose measurement at bedsi deOrdered By: Farida Wallhina on 04-02-2025 Glucose [Mass/Vol] 132 mg/dL High 74-106 [facility] Bedside Glucoseon 04-01-2025 FINGERSTICK GLU 132 mg/dL High 74-106 [facility] Comment on above: Result Comment: REINALDO GEMENT OF PATIENT CARE PER NURSING PROTOCOL Performed By: #### L 501.080 ####[facility] [address] [place], [address] FINGERSTICK GLU 156 mg/dL High 74-106 [facility] Comment on above: Result Comment: REINALDO GEMENT OF PATIENT CARE PER NURSING PROTOCOL Performed By: #### L 501.080 ####[facility] [address] [place], [address] FINGERSTICK GLU 133 mg/dL High 74-106 [facility] Comment on above: Result Comment: REINALDO GEMENT OF PATIENT CARE PER NURSING PROTOCOL Performed By: #### L 501.080 ####[facility] [address] [place], [address] Venous duplex ultrasound rep ortOrdered By: Jaiden Lizarraga on 04-01-2025 US Vein [facility] Work Phone: Bedside Glucoseon 03-31-2025 FINGERSTICK GLU 128 mg/dL High 74-106 [facility] Comment on above: Result Comment: REINALDO GEMENT OF PATIENT CARE PER NURSING PROTOCOL Performed By: #### L 501.080 ####[facility] [address] [place], [address] FINGERSTICK GLU 191 mg/dL High 74-106 [facility] Comment on above: Result Comment: REINALDO GEMENT OF PATIENT CARE PER NURSING PROTOCOL Performed By: #### L 501.080 ####[facility] [address] [place], [address] Calculated very low density lipoprotein (VLDL) cholesterol measurementOrdered By: Farida Zavala on 03-31-2025 Calculated very low density lipoprotein (VLDL) cholesterol measurement 27 mg/dL 5-40 [facility] HH, Hemoglobin AND Hematocri ton 03-31-2025 Hematocrit (Bld) [Volume fraction] 29.3 % Low 37-47 [facility] Comment on above: Performed By: #### L 300.3900, L500.4100, L100.0600 ####[facility] [address] [place], [address] Hemoglobin (Bld) [Mass/Vol] 9.8 g/dL Low 12.0-15. 0 [facility] Comment on above: Performed By: #### L 300.3900, L500.4100, L100.0600 ####[facility] [address] [place], [address] Hematocrit Auto (Bld) [Volum e fraction]Ordered By: Farida Zavala on 03-31-2025 Hematocrit (Bld) [Volume fraction] 29.3 % Low 37-47 [facility] Hemoglobin measurementOrdere d By: Farida Sally on 03-31-2025 Hemoglobin (Bld) [Mass/Vol] 9.8 g/dL Low 12.0-15. 0 [facility] LDL calc ser/plasOrdered By: Farida Zavala on 03-31-2025 Cholesterol in LDL [Mass/Vol] 77 mg/dL [facility] Lipid Profileon 03-31-2025 CHOL:HDL 3.52 Normal [facility] Comment on above: Performed By: #### L 300.3900, L500.4100, L100.0600 ####[facility] [address] [place], [address] Cholesterol [Mass/Vol] 145 mg/dL Normal <=200 [facility] Comment on above: Result Comment: Chol esterol level, Desirable <200 mg/dLBorderline high cholesterol 200-239 mg/dLHigh cholesterol >=240 mg/dLRecommendations of the NCEP Adult Treatment Panel for thefollowing risk-cutoff thresholds for the [place] [facility]. Performed By: #### L 300.3900, L500.4100, L100.0600 ####[facility] [address] [place], [address] Cholesterol in HDL [Mass/Vol] 41 mg/dL Normal [facility] Comment on above: Result Comment: Florencia onal Cholesterol Education Program (NCEP) guidelines:<40 mg/dL: Low HDL-cholesterol (major risk factor for CHD)>= 60 mg/dL: High HDL-cholesterol (negative risk factor forCHD)HDL-cholesterol is affected by a number of factors, e.g.smoking, exercise, hormones, sex and age. Performed By: #### L 300.3900, L500.4100, L100.0600 ####[facility] [address] [place], [address] Cholesterol in LDL [Mass/Vol] 77 mg/dL Normal [facility] Comment on above: Result Comment: Bord zcvgth=349-557 mg/dL Higher Ripn=357 mg/dL or greaterFriedwald Equation for LDL-C Performed By: #### L 300.3900, L500.4100, L100.0600 ####[facility] [address] [place], [address] Cholesterol in VLDL [Mass/Vol] 27 mg/dL Normal 5-40 [facility] Comment on above: Performed By: #### L 300.3900, L500.4100, L100.0600 ####[facility] [address] [place], [address] Triglyceride [Mass/Vol] 134 mg/dL Normal [facility] Comment on above: Result Comment: The drugs N-Acetylcysteine and Metamizole may falselydepress this assay.Normal range: <150 mg/dLBorderline High: 150-199 mg/dLHigh: 200-499 mg/dLVery High: >500 mg/dL Performed By: #### L 300.3900, L500.4100, L100.0600 ####[facility] [address] [place], [address] Prothrombin Time w/INRon INR Coag (PPP) [Relative time] 2.5 {INR} Normal [facility] Comment on above: Performed By: #### L 300.3900, L500.4100, L100.0600 ####[facility] [address] [place], [address] PT Coag (PPP) [Time] 28.0 s High 11.7-14.9 [facility] Comment on above: Performed By: #### L 300.3900, L500.4100, L100.0600 ####[facility] [address] [place], [address] Serum or plasma cholesterol in HDL measurement (mass/volume)Ordered By: Farida Zavala on 03-31-2025 Cholesterol in HDL [Mass/Vol] 41 mg/dL >40 [facility] Serum or plasma cholesterol measurement (mass/volume)Ordered By: Farida Wallhina on 03-31-2025 Cholesterol [Mass/Vol] 145 mg/dL <201 [facility] Bedside Glucoseon 03-30-2025 FINGERSTICK GLU 136 mg/dL High 74-106 [facility] Comment on above: Result Comment: REINALDO GEMENT OF PATIENT CARE PER NURSING PROTOCOL Performed By: #### L 501.080 ####[facility] [address] [place], [address] FINGERSTICK GLU 150 mg/dL High [address] [place] [address] Comment on above: Result Comment: REINALDO GEMENT OF PATIENT CARE PER NURSING PROTOCOL Performed By: #### L 501.080 ####[facility] [address] [place], [address] FINGERSTICK GLU 100 mg/dL Normal [address] [place] [address] Comment on above: Result Comment: REINALDO GEMENT OF PATIENT CARE PER NURSING PROTOCOL Performed By: #### L 501.080 ####[facility] [address] [place], [address] FINGERSTICK GLU 136 mg/dL High [facility]106 [facility] Comment on above: Result Comment: REINALDO GEMENT OF PATIENT CARE PER NURSING PROTOCOL Performed By: #### L 501.080 ####[facility] [address] [place], [address] Prothrombin Time w/INRon INR Coag (PPP) [Relative time] 2.3 {INR} Normal [facility] Comment on above: Performed By: #### L 300.3900 ####[facility] [address] [place], [address] PT Coag (PPP) [Time] 25.7 s High 11.7-14.9 [facility] Comment on above: Performed By: #### L 300.3900 ####[facility] [address] [place], [address] Bedside Glucoseon 03-29-2025 FINGERSTICK GLU 187 mg/dL High 74-106 [facility] Comment on above: Result Comment: REINALDO GEMENT OF PATIENT CARE PER NURSING PROTOCOL Performed By: #### L 501.080 ####[facility] [address] [place], [address] FINGERSTICK GLU 125 mg/dL High 74-106 [facility] Comment on above: Result Comment: REINALDO GEMENT OF PATIENT CARE PER NURSING PROTOCOL Performed By: #### L 501.080 ####[facility] [address] [place], [address] FINGERSTICK GLU 149 mg/dL High 74-106 [facility] Comment on above: Result Comment: REINALDO GEMENT OF PATIENT CARE PER NURSING PROTOCOL Performed By: #### L 501.080 ####[facility] [address] [place], [address] FINGERSTICK GLU 193 mg/dL High 74-106 [facility] Comment on above: Result Comment: REINALDO GEMENT OF PATIENT CARE PER NURSING PROTOCOL Performed By: #### L 501.080 ####[facility] [address] [place], [address] FINGERSTICK GLU 153 mg/dL High 74-106 [facility] Comment on above: Result Comment: REINALDO GEMENT OF PATIENT CARE PER NURSING PROTOCOL Performed By: #### L 501.080 ####[facility] [address] [place], [address] Prothrombin Time w/INRon INR Coag (PPP) [Relative time] 2.1 {INR} Normal [facility] Comment on above: Performed By: #### L 300.3900 ####[facility] [address] [place], [address] PT Coag (PPP) [Time] 24.3 s High 11.7-14.9 [facility] Comment on above: Performed By: #### L 300.3900 ####[facility] [address] [place], [address] Absolute lymphocyte countOrd ered By: Farida Zavala on 03-28-2025 Lymphocytes Auto (Unsp spec) [#/Vol] 2.03 10*3/uL 0.83-4.51 [facility] Anion gap in Serum or Plasma Ordered By: Farida Wallhina on 03-28-2025 Anion gap [Moles/Vol] 10 mmol/L 5-15 [facility] Automated lymphocyte count a s percentage of total leukocytesOrdered By: Farida Wallhina on 03-28-2025 Lymphocytes/100 WBC Auto (Unsp spec) 23.8 % 19-41 [facility] BUN/creatinine ratioOrdered By: Farida Wallhina on 03-28-2025 Urea nitrogen/Creatinine [Mass ratio] 25.5 mg/mg High 10-20 [facility] Basophil percentageOrdered B y: Farida Wallhina on 03-28-2025 Basophils/100 WBC (Bld) 0.5 % 0-1 [facility] Bedside Glucoseon 03-28-2025 FINGERSTICK GLU 192 mg/dL High 74-106 [facility] Comment on above: Result Comment: REINALDO GEMENT OF PATIENT CARE PER NURSING PROTOCOL Performed By: #### L 501.080 ####[facility] [address] [place], [address] FINGERSTICK GLU 141 mg/dL High 74-106 [facility] Comment on above: Result Comment: REINALDO GEMENT OF PATIENT CARE PER NURSING PROTOCOL Performed By: #### L 501.080 ####[facility] [address] [place], [address] FINGERSTICK GLU 153 mg/dL High 74-106 [facility] Comment on above: Result Comment: REINALDO ENGLISH OF PATIENT CARE PER NURSING PROTOCOL Performed By: #### L 501.080 ####[facility] [address] [place], [address] Bilirubin, totalOrdered By: Farida Zavala on 03-28-2025 Bilirubin [Mass/Vol] 0.28 mg/dL 0.00-1.30 [facility] CBC W/Diff, Automatedon Absolute Lymph 2.03 X10 3/uL Normal 0.83-4.51 [facility] Comment on above: Performed By: #### L 101.9900, L501.2300, L501.5200, L100.0100, L500.4050, L501.6710 ####[facility] [address] [place], [address] Absolute Neut 5.7 X10 3/uL Normal 2.0-7.7 [facility] Comment on above: Performed By: #### L 101.9900, L501.2300, L501.5200, L100.0100, L500.4050, L501.6710 ####[facility] [address] [place], [address] Basophils/100 WBC (Bld) 0.5 % Normal 0-1 [facility] Comment on above: Performed By: #### L 101.9900, L501.2300, L501.5200, L100.0100, L500.4050, L501.6710 ####[facility] [address] [place], [address] Eosinophils/100 WBC (Bld) 1.2 % Normal 0-5 [facility] Comment on above: Performed By: #### L 101.9900, L501.2300, L501.5200, L100.0100, L500.4050, L501.6710 ####[facility] [address] [place], [address] Erythrocyte distribution width (RBC) [Ratio] 13.7 % Normal 11.6-14.6 [facility] Comment on above: Performed By: #### L 101.9900, L501.2300, L501.5200, L100.0100, L500.4050, L501.6710 ####[facility] [address] [place], [address] Hematocrit (Bld) [Volume fraction] 29.3 % Low 37-47 [facility] Comment on above: Performed By: #### L 101.9900, L501.2300, L501.5200, L100.0100, L500.4050, L501.6710 ####[facility] [address] [place], [address] Hemoglobin (Bld) [Mass/Vol] 9.6 g/dL Low 12.0-15. 0 [facility] Comment on above: Performed By: #### L 101.9900, L501.2300, L501.5200, L100.0100, L500.4050, L501.6710 ####[facility] [address] [place], [address] IG% 0.600 Normal 0.0-0.9 [facility] Comment on above: Result Comment: IG% - Immature Granulocytes (promyelocytes, myelocytes andmetamyelocytes) > 1% indicates that a LEFT SHIFT is Present. Performed By: #### L 101.9900, L501.2300, L501.5200, L100.0100, L500.4050, L501.6710 ####[facility] [address] [place], [address] Lymphocytes/100 WBC (Bld) 23.8 % Normal 19-41 [facility] Comment on above: Performed By: #### L 101.9900, L501.2300, L501.5200, L100.0100, L500.4050, L501.6710 ####[facility] [address] [place], [address] MCH (RBC) [Entitic mass] 29.9 pg Normal 27.0-32.0 [facility] Comment on above: Performed By: #### L 101.9900, L501.2300, L501.5200, L100.0100, L500.4050, L501.6710 ####[facility] [address] [place], [address] MCHC (RBC) [Mass/Vol] 32.8 g/dL Normal 32-36 [facility] Comment on above: Performed By: #### L 101.9900, L501.2300, L501.5200, L100.0100, L500.4050, L501.6710 ####[facility] [address] [place], [address] MCV (RBC) [Entitic vol] 91.3 fL Normal 81-99 [facility] Comment on above: Performed By: #### L 101.9900, L501.2300, L501.5200, L100.0100, L500.4050, L501.6710 ####[facility] [address] [place], [address] Monocytes/100 WBC (Bld) 6.9 % Normal 0-10 [facility] Comment on above: Performed By: #### L 101.9900, L501.2300, L501.5200, L100.0100, L500.4050, L501.6710 ####[facility] [address] [place], [address] Neutrophils/100 WBC (Bld) 67.0 % Normal 47-70 [facility] Comment on above: Performed By: #### L 101.9900, L501.2300, L501.5200, L100.0100, L500.4050, L501.6710 ####[facility] [address] [place], [address] Nucleated RBC (Bld) [#/Vol] 0 10*3/uL Normal 0-5 [facility] Comment on above: Performed By: #### L 101.9900, L501.2300, L501.5200, L100.0100, L500.4050, L501.6710 ####[facility] [address] [place], [address] Platelet mean volume (Bld) [Entitic vol] 9.8 fL Normal 6.2-12.0 [facility] Comment on above: Performed By: #### L 101.9900, L501.2300, L501.5200, L100.0100, L500.4050, L501.6710 ####[facility] [address] [place], [address] Platelets (Bld) [#/Vol] 328 10*3/uL Normal 150-450 [facility] Comment on above: Performed By: #### L 101.9900, L501.2300, L501.5200, L100.0100, L500.4050, L501.6710 ####[facility] [address] [place], [address] RBC (Bld) [#/Vol] 3.21 10*6/uL Low 4.2-5.4 [facility] Comment on above: Performed By: #### L 101.9900, L501.2300, L501.5200, L100.0100, L500.4050, L501.6710 ####[facility] [address] [place], [address] RDW SD 46.0 fl High 35.1-43.9 [facility] Comment on above: Performed By: #### L 101.9900, L501.2300, L501.5200, L100.0100, L500.4050, L501.6710 ####[facility] [address] [place], [place], [address] WBC (Bld) [#/Vol] 8.5 10*3/uL Normal 4.4-11.0 [facility] Comment on above: Performed By: #### L 101.9900, L501.2300, L501.5200, L100.0100, L500.4050, L501.6710 ####[facility] [address] [place], [address] CRPon 03-28-2025 C-REACTIVE PROT 186.00 mg/L High 0.0-3.0 [facility] Comment on above: Performed By: #### L 101.9900, L501.2300, L501.5200, L100.0100, L500.4050, L501.6710 ####[facility] [address] [place], [place], [id number] Carbon dioxide, total [Moles /volume] in Central venous bloodOrdered By: Farida Zavala on 03-28-2025 CO2 [Moles/Vol] 27.1 mmol/L 21.0-32.0 [facility] Chloride assayOrdered By: Asher Zavala on 03-28-2025 Chloride [Moles/Vol] 101 mmol/L 98-108 [facility] Comprehensive Metabolic Prof ilon 03-28-2025 Albumin/Globulin [Mass ratio] 1.0 {ratio} Normal 0.9-2.4 [facility] Comment on above: Performed By: #### L 101.9900, L501.2300, L501.5200, L100.0100, L500.4050, L501.6710 ####[facility] [address] [place], [address] ALK PHOS 60 U/L Normal 35-104 [facility] Comment on above: Performed By: #### L 101.9900, L501.2300, L501.5200, L100.0100, L500.4050, L501.6710 ####[facility] [address] [place], [address] ALT [Catalytic activity/Vol] 15 U/L Normal <=34 [facility] Comment on above: Performed By: #### L 101.9900, L501.2300, L501.5200, L100.0100, L500.4050, L501.6710 ####[facility] [address] [place], [address] AST [Catalytic activity/Vol] 17 U/L Normal <=31 [facility] Comment on above: Performed By: #### L 101.9900, L501.2300, L501.5200, L100.0100, L500.4050, L501.6710 ####[facility] [address] [place], [address] Bilirubin [Mass/Vol] 0.28 mg/dL Normal 0.00-1.30 [facility] Comment on above: Performed By: #### L 101.9900, L501.2300, L501.5200, L100.0100, L500.4050, L501.6710 ####[facility] [address] [place], [address] Calcium [Mass/Vol] 8.6 mg/dL Normal 7.6-11.0 [facility] Comment on above: Performed By: #### L 101.9900, L501.2300, L501.5200, L100.0100, L500.4050, L501.6710 ####[facility] [address] [place], [address] Chloride [Moles/Vol] 101 mmol/L Normal 98-108 [facility] Comment on above: Performed By: #### L 101.9900, L501.2300, L501.5200, L100.0100, L500.4050, L501.6710 ####[facility] [address] [place], [address] CO2 [Moles/Vol] 27.1 mmol/L Normal 21.0-32.0 [facility] Comment on above: Performed By: #### L 101.9900, L501.2300, L501.5200, L100.0100, L500.4050, L501.6710 ####[facility] [address] [place], [address] GAP 10 Normal 5-15 [facility] Comment on above: Performed By: #### L 101.9900, L501.2300, L501.5200, L100.0100, L500.4050, L501.6710 ####[facility] [address] [place], [address] Globulin (S) [Mass/Vol] 3.3 g/dL Normal 2.2-4.2 [facility] Comment on above: Performed By: #### L 101.9900, L501.2300, L501.5200, L100.0100, L500.4050, L501.6710 ####[facility] [address] [place], [address] Potassium [Moles/Vol] 3.8 mmol/L Normal 3.3-5.1 [facility] Comment on above: Performed By: #### L 101.9900, L501.2300, L501.5200, L100.0100, L500.4050, L501.6710 ####[facility] [address] [place], [address] Sodium [Moles/Vol] 138 mmol/L Normal 133-145 [facility] Comment on above: Performed By: #### L 101.9900, L501.2300, L501.5200, L100.0100, L500.4050, L501.6710 ####[facility] [address] [place], [address] Albumin [Mass/Vol] 3.2 g/dL Low 3.4-4.8 [facility] Comment on above: Performed By: #### L 101.9900, L501.2300, L501.5200, L100.0100, L500.4050, L501.6710 ####[facility] [address] [place], [address] BUN/CRE 25.5 RATIO High 10-20 [facility] Comment on above: Performed By: #### L 101.9900, L501.2300, L501.5200, L100.0100, L500.4050, L501.6710 ####[facility] [address] [place], [address] Creatinine [Mass/Vol] 0.63 mg/dL Low 0.70-1.20 [facility] Comment on above: Performed By: #### L 101.9900, L501.2300, L501.5200, L100.0100, L500.4050, L501.6710 ####[facility] [address] [place], [address] ECRCL 79.79 ml/min Normal 50-250 [facility] Comment on above: Performed By: #### L 101.9900, L501.2300, L501.5200, L100.0100, L500.4050, L501.6710 ####[facility] [address] [place], [address] GFR/1.73 sq M.predicted among non-blacks MDRD (S/P/Bld) [Vol rate/Area] 97 mL/min/{1.73_m2} Normal >60 [facility] Comment on above: Result Comment: mL/m in/1.73m2 CKD-EPI Creatinine Equation (2020) Performed By: #### L 101.9900, L501.2300, L501.5200, L100.0100, L500.4050, L501.6710 ####[facility] [address] [place], [address] Glucose [Mass/Vol] 155 mg/dL High 70-99 [facility] Comment on above: Performed By: #### L 101.9900, L501.2300, L501.5200, L100.0100, L500.4050, L501.6710 ####[facility] [address] [place], [address] T PROT 6.5 g/dL Normal 5.9-8.4 [facility] Comment on above: Performed By: #### L 101.9900, L501.2300, L501.5200, L100.0100, L500.4050, L501.6710 ####[facility] [address] [place], [address] Urea nitrogen [Mass/Vol] 16 mg/dL Normal 4-19 [facility] Comment on above: Performed By: #### L 101.9900, L501.2300, L501.5200, L100.0100, L500.4050, L501.6710 ####[facility] [address] [place], [address] Eosinophil percentageOrdered By: Farida Zavala on 03-28-2025 Eosinophils/100 WBC (Bld) 1.2 % 0-5 [facility] Erythrocyte Sed Rateon 03-28 SED RATE 63 mm/hr High 0-30 [facility] Comment on above: Performed By: #### L 101.9900, L501.2300, L501.5200, L100.0100, L500.4050, L501.6710 ####[facility] [address] [place], [place], [id number] Erythrocyte distribution wid th ratioOrdered By: Farida Sally on 03-28-2025 Erythrocyte distribution width (RBC) [Ratio] 13.7 % 11.6-14.6 [facility] Erythrocyte distribution wid th standard deviationOrdered By: Farida Sally on 03-28-2025 Erythrocyte distribution width (RBC) [Ratio] 46.0 fl High 35.1-43.9 [facility] Erythrocyte sedimentation ra teOrdered By: Farida Sally on 03-28-2025 ESR (Bld) [Velocity] 63 mm/h High 0-30 [facility] Glomerular filtration rate ( GFR) estimation/1.73 sq m using serum, plasma, or whole bOrdered By: Farida Zavala on 03-28-2025 GFR/1.73 sq M.predicted among non-blacks MDRD (S/P/Bld) [Vol rate/Area] 97 mL/min/{1.73_m2} >60 [facility] Hemoglobin A1con 03-28-2025 HbA1c (Bld) [Mass fraction] 6.8 % High <=5.6 [facility] Comment on above: Result Comment: Norm al < 5.7 % Prediabetic 5.7 - 6.4 % Diabetic >or= 6.5 % Please note range changes. Performed By: #### L 501.9937 ####[facility] [address] [place], [place], [id number] Hemoglobin A1c percentageOrd ered By: Farida Zavala on 03-28-2025 HbA1c (Bld) [Mass fraction] 6.8 % High <5.7 [facility] Immature granulocytes/100 WB C Auto (Bld)Ordered By: Farida Zavala on 03-28-2025 Immature granulocytes/100 WBC (Bld) 0.600 % 0.0-0.9 [facility] MCV (mean corpuscular volume ) determinationOrdered By: Farida Zavala on 03-28-2025 MCV (RBC) [Entitic vol] 91.3 fL 81-99 [facility] Magnesiumon 03-28-2025 Magnesium [Mass/Vol] 2.2 mg/dL Normal 1.5-2.2 [facility] Comment on above: Performed By: #### L 101.9900, L501.2300, L501.5200, L100.0100, L500.4050, L501.6710 ####[facility] [address] [place], [place], [id number] Magnesium measurement (mass/ volume)Ordered By: Afrida Sally on 03-28-2025 Magnesium (Unsp spec) [Mass/Vol] 2.2 mg/dL 1.5-2.2 [facility] Mean corpuscular hemoglobin (MCH) determinationOrdered By: Farida Sally on 03-28-2025 MCH (RBC) [Entitic mass] 29.9 pg 27.0-32.0 [facility] Monocyte percentageOrdered B y: Farida Sally on 03-28-2025 Monocytes/100 WBC (Bld) 6.9 % 0-10 [facility] Neutrophil percentageOrdered By: Farida Wallhina on 03-28-2025 Neutrophils/100 WBC (Bld) 67.0 % 47-70 [facility] No Panel InformationOrdered By: Farida Wallhina on 03-28-2025 17 U/L <32 [facility] Phosphoruson 03-28-2025 Phosphate [Mass/Vol] 3.3 mg/dL Normal 2.7-4.5 [facility] Comment on above: Performed By: #### L 101.9900, L501.2300, L501.5200, L100.0100, L500.4050, L501.6710 ####[facility] [address] [place], [address] Platelet countOrdered By: Asher giovani Sally on 03-28-2025 Platelets (Bld) [#/Vol] 328 10*3/uL 150-450 [facility] Potassium measurement (mass/ volume)Ordered By: Farida Zavala on 03-28-2025 Potassium (Unsp spec) [Mass/Vol] 3.8 mmol/L 3.3-5.1 [facility] Prothrombin Time w/INRon INR Coag (PPP) [Relative time] 1.7 {INR} Normal [facility] Comment on above: Performed By: #### L 300.3900 ####[facility] [address] [place], [place], [id number] PT Coag (PPP) [Time] 20.7 s High 11.7-14.9 [facility] Comment on above: Performed By: #### L 300.3900 ####[facility] [address] [place], [place], [id number] RBC Auto (Bld) [#/Vol]Ordere d By: Farida Zavala on 03-28-2025 RBC (Bld) [#/Vol] 3.21 10*6/uL Low 4.2-5.4 [facility] Serum creatinine measurement (mass/volume)Ordered By: Farida Zavaal on 03-28-2025 Creatinine [Mass/Vol] 0.63 mg/dL Low 0.70-1.20 [facility] Serum globulin measurementOr dered By: Farida Zavala on 03-28-2025 Globulin (S) [Mass/Vol] 3.3 g/dL 2.2-4.2 [facility] Serum glucose measurement (m ass/volume)Ordered By: Farida Zavala on 03-28-2025 Glucose [Mass/Vol] 155 mg/dL High 70-99 [facility] Serum or plasma C reactive p rotein measurement (mass/volume)Ordered By: Farida Zavala on 03-28-2025 CRP [Mass/Vol] 186.00 mg/L High 0.0-3.0 [facility] Serum or plasma alanine reyes otransferase (ALT) measurementOrdered By: Farida Zavala on 03-28-2025 ALT [Catalytic activity/Vol] 15 U/L <35 [facility] Serum or plasma albumin jatin urement (mass/volume)Ordered By: Farida Zavala on 03-28-2025 Albumin [Mass/Vol] 3.2 g/dL Low 3.4-4.8 [facility] Serum or plasma albumin/glob ulin mass ratioOrdered By: Farida Sally on 03-28-2025 Albumin/Globulin [Mass ratio] 1.0 {ratio} 0.9-2.4 [facility] Serum or plasma alkaline lana sphatase measurementOrdered By: Farida Sally on 03-28-2025 ALP [Catalytic activity/Vol] 60 U/L 35-104 [facility] Serum or plasma calcium jatin urement (mass/volume)Ordered By: Farida Sally on 03-28-2025 Calcium [Mass/Vol] 8.6 mg/dL 7.6-11.0 [facility] Serum or plasma urea nitroge n measurement (mass/volume)Ordered By: Farida Sally on 03-28-2025 Urea nitrogen [Mass/Vol] 16 mg/dL 4-19 [facility] Sodium levelOrdered By: Farida Sally on 03-28-2025 Sodium [Moles/Vol] 138 mmol/L 133-145 [facility] Total proteinOrdered By: Candice mayes Sally on 03-28-2025 Protein [Mass/Vol] 6.5 g/dL 5.9-8.4 [facility] White blood cell (WBC) count Ordered By: Farida Sally on 03-28-2025 WBC (Bld) [#/Vol] 8.5 10*3/uL 4.4-11.0 [facility] Bedside Glucoseon 03-27-2025 FINGERSTICK GLU 215 mg/dL High 74-106 [facility] Comment on above: Result Comment: REINALDO GEMENT OF PATIENT CARE PER NURSING PROTOCOL Performed By: #### L 501.080 ####[facility] [address] [facility] [phone]) FINGERSTICK GLU 137 mg/dL High 74-106 [facility] Comment on above: Result Comment: REINALDO GEMENT OF PATIENT CARE PER NURSING PROTOCOL Performed By: #### L 501.080 ####[facility] [address] [place], [place], [id number] FINGERSTICK GLU 201 mg/dL High 74-106 [facility] Comment on above: Result Comment: REINALDO GEMENT OF PATIENT CARE PER NURSING PROTOCOL Performed By: #### L 501.080 ####[facility] [address] [place], [address] FINGERSTICK GLU 172 mg/dL High 74-106 [facility] Comment on above: Result Comment: REINALDO GEMENT OF PATIENT CARE PER NURSING PROTOCOL Performed By: #### L 501.080 ####[facility] [address] [place], [address] Glucose measurement at [facility] deOrdered By: Jose Ramon Terry on 03-27-2025 Glucose [Mass/Vol] 201 mg/dL High 74-106 [facility] Comment on above: MANAGEMENT OF PATIEN T CARE PER NURSING PROTOCOL International normalized rat io (INR) calculationOrdered By: Chino Masters on 03-27-2025 INR Coag (Bld) [Relative time] 1.6 {INR} [facility] Prothrombin Time w/INRon INR Coag (PPP) [Relative time] 1.6 {INR} Normal [facility] Comment on above: Performed By: #### L 300.3900 ####[facility] [address] [place], [address] PT Coag (PPP) [Time] 18.9 s High 11.7-14.9 [facility] Comment on above: Performed By: #### L 300.3900 ####[facility] [address] [place], [address] Prothrombin timeOrdered By: Chino Masters on 03-27-2025 PT Coag (PPP) [Time] 18.9 s High 11.7-14.9 [facility] Venous Duplex US - Sean Extre mon 03-27-2025 Venous Duplex US - Sean Extrem Normal [facility] Bedside Glucoseon 03-26-2025 FINGERSTICK GLU 166 mg/dL High 74-106 [facility] Comment on above: Result Comment: REINALDO GEMENT OF PATIENT CARE PER NURSING PROTOCOL Performed By: #### L 501.080 ####[facility] [address] [place], [address] FINGERSTICK GLU 177 mg/dL High 74-106 [facility] Comment on above: Result Comment: REINALDO GEMENT OF PATIENT CARE PER NURSING PROTOCOL Performed By: #### L 501.080 ####[facility] [address] [place], [address] FINGERSTICK GLU 155 mg/dL High 74-106 [facility] Comment on above: Result Comment: REINALDO GEMENT OF PATIENT CARE PER NURSING PROTOCOL Performed By: #### L 501.080 ####[facility] [address] [place], [address] FINGERSTICK GLU 184 mg/dL High 74-106 [facility] Comment on above: Result Comment: REINALDO GEMENT OF PATIENT CARE PER NURSING PROTOCOL Performed By: #### L 501.080 ####[facility] [address] [place], [address] Prothrombin Time w/INRon INR Coag (PPP) [Relative time] 1.3 {INR} Normal [facility] Comment on above: Performed By: #### L 300.3900 ####[facility] [address] [place], [address] PT Coag (PPP) [Time] 16.1 s High 11.7-14.9 [facility] Comment on above: Performed By: #### L 300.3900 ####[facility] [address] [place], [address] Absolute lymphocyte countOrd ered By: Jose Ramon Terry on 03-25-2025 Lymphocytes Auto (Unsp spec) [#/Vol] 1.37 10*3/uL 0.83-4.51 [facility] Absolute neutrophil countOrd ered By: Jose Ramon Terry on 03-25-2025 Neutrophils (Bld) [#/Vol] 9.0 10*3/uL High 2.0-7.7 [facility] Anion gap in Serum or Plasma Ordered By: Jose Ramon Terry on 03-25-2025 Anion gap [Moles/Vol] 11 mmol/L 5-15 [facility] Automated lymphocyte count a s percentage of total leukocytesOrdered By: Jose Ramon Terry on 03-25-2025 Lymphocytes/100 WBC Auto (Unsp spec) 11.9 % Low 19-41 [facility] BUN/creatinine ratioOrdered By: Jose Ramon Terry on 03-25-2025 Urea nitrogen/Creatinine [Mass ratio] 28.1 mg/mg High 10-20 [facility] Basic Metabolic Profile (BMP )on 03-25-2025 BUN/CRE 28.1 RATIO High 10-20 [facility] Comment on above: Performed By: #### L 500.2500, L100.0100 ####[facility] [address] [place], [address] Calcium [Mass/Vol] 8.6 mg/dL Normal 7.6-11.0 [facility] Comment on above: Performed By: #### L 500.2500, L100.0100 ####[facility] [address] [place], [address] Chloride [Moles/Vol] 96 mmol/L Low 98-108 [facility] Comment on above: Performed By: #### L 500.2500, L100.0100 ####[facility] [address] [place], [address] CO2 [Moles/Vol] 27.0 mmol/L Normal 21.0-32.0 [facility] Comment on above: Performed By: #### L 500.2500, L100.0100 ####[facility] [address] [place], [address] Creatinine [Mass/Vol] 0.69 mg/dL Low 0.70-1.20 [facility] Comment on above: Performed By: #### L 500.2500, L100.0100 ####[facility] [address] [place], [address] ECRCL 79.90 ml/min Normal 50-250 [facility] Comment on above: Performed By: #### L 500.2500, L100.0100 ####[facility] [address] [place], [address] GAP 11 Normal 5-15 [facility] Comment on above: Performed By: #### L 500.2500, L100.0100 ####[facility] [address] [place], [address] GFR/1.73 sq M.predicted among non-blacks MDRD (S/P/Bld) [Vol rate/Area] 94 mL/min/{1.73_m2} Normal >60 [facility] Comment on above: Result Comment: mL/m in/1.73m2 CKD-EPI Creatinine Equation (2020) Performed By: #### L 500.2500, L100.0100 ####[facility] [address] [place], [address] Glucose [Mass/Vol] 247 mg/dL High 70-99 [facility] Comment on above: Performed By: #### L 500.2500, L100.0100 ####[facility] [address] [place], [address] Potassium [Moles/Vol] 4.1 mmol/L Normal 3.3-5.1 [facility] Comment on above: Performed By: #### L 500.2500, L100.0100 ####[facility] [address] [place], [address] Sodium [Moles/Vol] 134 mmol/L Normal 133-145 [facility] Comment on above: Performed By: #### L 500.2500, L100.0100 ####[facility] [address] [place], [address] Urea nitrogen [Mass/Vol] 20 mg/dL High 4-19 [facility] Comment on above: Performed By: #### L 500.2500, L100.0100 ####[facility] [address] [place], [address] Basophil percentageOrdered B y: Jose Ramon Terry on 03-25-2025 Basophils/100 WBC (Bld) 0.3 % 0-1 [facility] Bedside Glucoseon 03-25-2025 FINGERSTICK GLU 199 mg/dL High 74-106 [facility] Comment on above: Result Comment: REINALDO GEMENT OF PATIENT CARE PER NURSING PROTOCOL Performed By: #### L 501.080 ####[facility] [address] [place], [address] FINGERSTICK GLU 352 mg/dL High [facility]106 [facility] Comment on above: Result Comment: REINALDO GEMENT OF PATIENT CARE PER NURSING PROTOCOL Performed By: #### L 501.080 ####[facility] [address] [place], [address] FINGERSTICK GLU 236 mg/dL High [address] [place] [address] Comment on above: Result Comment: REINALDO GEMENT OF PATIENT CARE PER NURSING PROTOCOL Performed By: #### L 501.080 ####[facility] [address] [place], [address] FINGERSTICK GLU 250 mg/dL High [address] [place] [address] Comment on above: Result Comment: REINALDO GEMENT OF PATIENT CARE PER NURSING PROTOCOL Performed By: #### L 501.080 ####[facility] [address] [place], [address] CBC W/Diff, Automatedon Absolute Lymph 1.37 X10 3/uL Normal 0.83-4.51 [facility] Comment on above: Performed By: #### L 500.2500, L100.0100 ####[facility] [address] [place], [address] Absolute Neut 9.0 X10 3/uL High 2.0-7.7 [facility] Comment on above: Performed By: #### L 500.2500, L100.0100 ####[facility] [address] [place], [address] Basophils/100 WBC (Bld) 0.3 % Normal 0-1 [facility] Comment on above: Performed By: #### L 500.2500, L100.0100 ####[facility] [address] [place], [address] Eosinophils/100 WBC (Bld) 0.3 % Normal 0-5 [facility] Comment on above: Performed By: #### L 500.2500, L100.0100 ####[facility] [address] [place], [address] Erythrocyte distribution width (RBC) [Ratio] 13.4 % Normal 11.6-14.6 [facility] Comment on above: Performed By: #### L 500.2500, L100.0100 ####[facility] [address] [place], [address] Hematocrit (Bld) [Volume fraction] 32.7 % Low 37-47 [facility] Comment on above: Performed By: #### L 500.2500, L100.0100 ####[facility] [address] [place], [address] Hemoglobin (Bld) [Mass/Vol] 10.9 g/dL Low 12.0-15. 0 [facility] Comment on above: Performed By: #### L 500.2500, L100.0100 ####[facility] [address] [place], [address] IG% 0.600 Normal 0.0-0.9 [facility] Comment on above: Result Comment: IG% - Immature Granulocytes (promyelocytes, myelocytes andmetamyelocytes) > 1% indicates that a LEFT SHIFT is Present. Performed By: #### L 500.2500, L100.0100 ####[facility] [address] [place], [address] Lymphocytes/100 WBC (Bld) 11.9 % Low 19-41 [facility] Comment on above: Performed By: #### L 500.2500, L100.0100 ####[facility] [address] [place], [address] MCH (RBC) [Entitic mass] 30.7 pg Normal 27.0-32.0 [facility] Comment on above: Performed By: #### L 500.2500, L100.0100 ####[facility] [address] [place], [address] MCHC (RBC) [Mass/Vol] 33.3 g/dL Normal 32-36 [facility] Comment on above: Performed By: #### L 500.2500, L100.0100 ####[facility] [address] [place], [address] MCV (RBC) [Entitic vol] 92.1 fL Normal 81-99 [facility] Comment on above: Performed By: #### L 500.2500, L100.0100 ####[facility] [address] [place], [address] Monocytes/100 WBC (Bld) 8.5 % Normal 0-10 [facility] Comment on above: Performed By: #### L 500.2500, L100.0100 ####[facility] [address] [place], [address] Neutrophils/100 WBC (Bld) 78.4 % High 47-70 [facility] Comment on above: Performed By: #### L 500.2500, L100.0100 ####[facility] [address] [place], [address] Nucleated RBC (Bld) [#/Vol] 0 10*3/uL Normal 0-5 [facility] Comment on above: Performed By: #### L 500.2500, L100.0100 ####[facility] [address] [place], [address] Platelet mean volume (Bld) [Entitic vol] 10.0 fL Normal 6.2-12.0 [facility] Comment on above: Performed By: #### L 500.2500, L100.0100 ####[facility] [address] [place], [address] Platelets (Bld) [#/Vol] 297 10*3/uL Normal 150-450 [facility] Comment on above: Performed By: #### L 500.2500, L100.0100 ####[facility] [address] [place], [address] RBC (Bld) [#/Vol] 3.55 10*6/uL Low 4.2-5.4 [facility] Comment on above: Performed By: #### L 500.2500, L100.0100 ####[facility] [address] [place], [address] RDW SD 46.1 fl High 35.1-43.9 [facility] Comment on above: Performed By: #### L 500.2500, L100.0100 ####[facility] [address] [place], [address] WBC (Bld) [#/Vol] 11.5 10*3/uL High 4.4-11.0 [facility] Comment on above: Performed By: #### L 500.2500, L100.0100 ####[facility] [address] [place], [address] Carbon dioxide, total [Moles /volume] in Central venous bloodOrdered By: Jose Ramon Terry on 03-25-2025 CO2 [Moles/Vol] 27.0 mmol/L 21.0-32.0 [facility] Chloride assayOrdered By: Lilly Terry on 03-25-2025 Chloride [Moles/Vol] 96 mmol/L Low 98-108 [facility] Eosinophil percentageOrdered By: Jose Ramon Terry on 03-25-2025 Eosinophils/100 WBC (Bld) 0.3 % 0-5 [facility] Erythrocyte distribution wid th ratioOrdered By: Jose Ramon Terry on 03-25-2025 Erythrocyte distribution width (RBC) [Ratio] 13.4 % 11.6-14.6 [facility] Erythrocyte distribution wid th standard deviationOrdered By: Jose Ramon Terry on 03-25-2025 Erythrocyte distribution width (RBC) [Ratio] 46.1 fl High 35.1-43.9 [facility] Glomerular filtration rate ( GFR) estimation/1.73 sq m using serum, plasma, or whole bOrdered By: Jose Ramon Terry on 03-25-2025 GFR/1.73 sq M.predicted among non-blacks MDRD (S/P/Bld) [Vol rate/Area] 94 mL/min/{1.73_m2} >60 [facility] Comment on above: mL/min/1.73m2 CKD-EP I Creatinine Equation (2020) Hematocrit Auto (Bld) [Volum e fraction]Ordered By: Jose Ramon Terry on 03-25-2025 Hematocrit (Bld) [Volume fraction] 32.7 % Low 37-47 [facility] Hemoglobin measurementOrdere d By: Jose Ramon Terry on 03-25-2025 Hemoglobin (Bld) [Mass/Vol] 10.9 g/dL Low 12.0-15. 0 [facility] Immature granulocytes/100 WB C Auto (Bld)Ordered By: Jose Ramon Terry on 03-25-2025 Immature granulocytes/100 WBC (Bld) 0.600 % 0.0-0.9 [facility] Comment on above: IG% - Immature Granu locytes (promyelocytes, myelocytes and metamyelocytes) > 1% indicates that a LEFT SHIFT is Present. MCV (mean corpuscular volume ) determinationOrdered By: Jose Ramon Terry on 03-25-2025 MCV (RBC) [Entitic vol] 92.1 fL 81-99 [facility] Mean corpuscular hemoglobin (MCH) determinationOrdered By: Jose Ramon Terry on 03-25-2025 MCH (RBC) [Entitic mass] 30.7 pg 27.0-32.0 [facility] Mean corpuscular hemoglobin concentration (MCHC) determinationOrdered By: Jose Ramon Terry on 03-25-2025 MCHC (RBC) [Mass/Vol] 33.3 g/dL 32-36 [facility] Mean platelet volume determi nationOrdered By: Jose Ramon Terry on 03-25-2025 Platelet mean volume (Bld) [Entitic vol] 10.0 fL 6.2-12.0 [facility] Monocyte percentageOrdered B y: Jose Ramon Terry on 03-25-2025 Monocytes/100 WBC (Bld) 8.5 % 0-10 [facility] Neutrophil percentageOrdered By: Jose Ramon Terry on 03-25-2025 Neutrophils/100 WBC (Bld) 78.4 % High 47-70 [facility] Nucleated red blood cell per centageOrdered By: Jose Ramon Terry on 03-25-2025 Nucleated RBC/100 WBC (Bld) [Ratio] 0 % 0-5 [facility] Platelet countOrdered By: Lilly Terry on 03-25-2025 Platelets (Bld) [#/Vol] 297 10*3/uL 150-450 [facility] Potassium measurement (mass/ volume)Ordered By: Jose Ramon Terry on 03-25-2025 Potassium (Unsp spec) [Mass/Vol] 4.1 mmol/L 3.3-5.1 [facility] Prothrombin Time w/INRon INR Coag (PPP) [Relative time] 1.2 {INR} Normal [facility] Comment on above: Performed By: #### L 300.3900 ####[facility] [address] [place], [place], [address] PT Coag (PPP) [Time] 15.1 s High 11.7-14.9 [facility] Comment on above: Performed By: #### L 300.3900 ####[facility] [address] [place], [place], [address] RBC Auto (Bld) [#/Vol]Ordere d By: Jose Ramon Harrison on 03-25-2025 RBC (Bld) [#/Vol] 3.55 10*6/uL Low 4.2-5.4 [facility] Serum creatinine measurement (mass/volume)Ordered By: Jose Ramon Terry on 03-25-2025 Creatinine [Mass/Vol] 0.69 mg/dL Low 0.70-1.20 [facility] Serum glucose measurement (m ass/volume)Ordered By: Jose Ramon Terry on 03-25-2025 Glucose [Mass/Vol] 247 mg/dL High 70-99 [facility] Serum or plasma calcium jatin urement (mass/volume)Ordered By: Jose Ramon Terry on 03-25-2025 Calcium [Mass/Vol] 8.6 mg/dL 7.6-11.0 [facility] Serum or plasma urea nitroge n measurement (mass/volume)Ordered By: Jose Ramon Terry on 03-25-2025 Urea nitrogen [Mass/Vol] 20 mg/dL High 4-19 [facility] Sodium levelOrdered By: Pancho Terry on 03-25-2025 Sodium [Moles/Vol] 134 mmol/L 133-145 [facility] White blood cell (WBC) count Ordered By: Jose Ramon Terry on 03-25-2025 WBC (Bld) [#/Vol] 11.5 10*3/uL High 4.4-11.0 [facility] Bedside Glucoseon 03-24-2025 FINGERSTICK GLU 347 mg/dL High 74-106 [facility] Comment on above: Result Comment: REINALDO GEMENT OF PATIENT CARE PER NURSING PROTOCOL Performed By: #### L 501.080 ####[facility] [address] [place], [address] FINGERSTICK GLU 196 mg/dL High 74-106 [facility] Comment on above: Result Comment: REINALDO GEMENT OF PATIENT CARE PER NURSING PROTOCOL Performed By: #### L 501.080 ####[facility] [address] [place], [place], [id number] Decalcification bone/plaqueo n 03-24-2025 Decalcification bone/plaque Normal [facility] Comment on above: Performed By: #### P DEC ####[facility] [address] [place], [address] Hip Min 2 Views (Portable)on 03-24-2025 Hip Min 2 Views (Portable) Normal [facility] MR/POSTOP.ANEon 03-24-2025 MR/POSTOP.ANE Normal [facility] MR/VDTPMNNH8if 03-24-2025 MR/POSTOPAN2 Normal [facility] Operative Reporton Operative Report Normal [facility] Prothrombin Time w/INRon INR Coag (PPP) [Relative time] 1.0 {INR} Normal [facility] Comment on above: Performed By: #### L 300.3900 ####[facility] [address] [place], [address] PT Coag (PPP) [Time] 12.9 s Normal 11.7-14.9 [facility] Comment on above: Performed By: #### L 300.3900 ####[facility] [address] [place], [address] Protime w/INR Fingerstickon 03-24-2025 INR Coag (PPP) [Relative time] 1.4 {INR} Normal [facility] Comment on above: Result Comment: Crit ical Value > 4.0 Performed By: #### L 9200.0000 ####[facility] [address] [place], [address] Protime Coagsen 16.0 SEC High 11.7-14.9 [facility] Comment on above: Performed By: #### L 9200.0000 ####[facility] [address] [place], [address] Whole blood prothrombin time Ordered By: Jose Ramon Terry on 03-24-2025 PT Coag (Bld) [Time] 16.0 s High 11.7-14.9 [facility] CNCOon 03-21-2025 CNCO Letter Text Normal [facility] Fructosamineon 03-17-2025 FRUCTOSAMINE 235 umol/L Normal 0-285 [facility] Comment on above: Result Comment: Publ ished reference interval for apparently healthysubjects between age 20 and 60 is 205 - 285 umol/L and in apoorly controlled diabetic population is 228 - 563 umol/Lwith a mean of 396 umol/L.Performed at: [facility] [address] [id number] Director: Hebr Kincaid PhD, Phone: [phone] Performed By: #### L 3400.0100, L501.5200, M100651, BTSPAT ####[facility] [address] [place], [place], [phone] MRSA/SAID NASAL SCREENon MRSA+SAID SCRN Reason for Exam: Surgery MRSA MRSA Negative S. AUREUS S. aureus Negative Normal [facility] Comment on above: Performed By: #### L 3400.0100, L501.5200, M100.651, BTSPAT ####[facility] [address] [place], [place], [phone] MRSA screenOrdered By: Vikash Terry on 03-16-2025 MRSA DNA SEEMA+probe Ql (Unsp spec) [facility] Magnesiumon 03-16-2025 Magnesium [Mass/Vol] 1.9 mg/dL Normal 1.5-2.2 [facility] Comment on above: Performed By: #### L 3400.0100, L501.5200, M100.651, BTSPAT ####[facility] [address] [place], [place], [id number] Magnesium measurement (mass/ volume)Ordered By: Jose Ramon Terry on 03-16-2025 Magnesium (Unsp spec) [Mass/Vol] 1.9 mg/dL 1.5-2.2 [facility] Type AND Screen - PAT ONLYon 03-16-2025 Ab SCREEN GEL Negative Normal [facility] Comment on above: Order Comment: Surge ry Date: 03/24/25Reason for Laboratory Test PREOPRESULTS FOR MG GO TO Kamilla MUÑOZ AND ALL OTHER LAB RESULTS GOTO DR. [id number] TOTAL HIP Performed By: #### L 3400.0100, L501.5200, M100.651, BTSPAT ####[facility] [address] [place], [address] CNOVon 03-13-2025 CNOV Office Visit (DEZ) DELGADOELSA MONTES ([id number]) 1955 F Date Time Provider Department 03/13/25 10:00 AM MANUELA [place] During your visit today, we recorded the following information about you: Pulse Respiration Blood pressure Weight 84/minute 14/minute 122/80 104.3 kg Height 1.651 m Manuela Montana APRN.SMOKING PIPE REPAIRER 03/13/2025 11:30 AM Signed Elsa is a 69 year old who presents for an annual gynecologic exam without complaints. - Scheduled for hip replacement surgery in 9 days at [facility]. Plans to stay in a facility for rehabilitation post-surgery due to her 's severe neuropathy, which limits his ability to assist at home. Postmenopausal: Yes since age Late 40's, early 50's HRT use: No. Last Pap: 05/10/2022 normal HPV: 05/10/2022 negative History of abnormal pap: Yes - cryo 's Last mammogram: 2024 normal History of abnormal mammogram: No Sexually active: No Vaginal dryness: No Menopause symptoms: None Bothersome pelvic pain: No Documentation from previous visit of 05/10/2022 was copied and pasted, documentation has been reviewed and edited as necessary for today's visit. OB History Gravida1 Para1 Term0 Preterm1 AB0 Living1 SAB0 IAB0 Ectopic0 Multiple0 Live Births0 Audio/Video Engineer History LMP: Postmenopausal Age at Menarche: 13 Age at First : Age at Menopause: Audio/Video Engineer History Comments: Sexual Activity: Not Currently; Male; [...] tunnel decomp Left PAST SURGICAL HISTORY OF [place] PAST SURGICAL HISTORY OF 2014 panelectomy REPAIR [...] discussed with the Patient or Patient's Authorized [employer] Clerk. As applicable, any other physician, advance practice provider, medical student, or other health professional student that will be observing or involved in the sensitive examination for educational or training purposes was discussed with the Patient or Authorized [employer] Clerk. The Patient or Authorized [employer] Clerk has agreed to proceed with the sensitive [...] dominant ma (more content not included)... Normal [facility] Extremity Lower without Cont raon 03-13-2025 Extremity Lower without Contra Normal [facility] MR/PAT.ANEon 03-13-2025 MR/PAT.ANE Normal [facility] PAP TESTon 03-13-2025 ADEQUACY Satisfactory for interpretation. Normal [facility] Comment on above: Order Comment: Speci men Type: FLUID SPECIMEN Ordering Facility: [facility] Address: [address] [place] [address] Performed By: #### L [id number] #### [facility] CLIA [id number] [address] [place] [address] 3, [address] [place] [address] [place] [facility] CLIA [id number] [address] [place] [address] [id number], [place] [address] [place] CASE REPORT Normal [facility] Comment on above: Order Comment: Speci men Type: FLUID SPECIMEN Ordering Facility: [facility] Address: [address] [place] [address] Result Comment: Gyne cologic Cytology Report Case: [id number] Authorizing Provider: Manuela Montana APRN.SMOKING PIPE REPAIRER Collected: 03/13/2025 10:43 AM Ordering Location: OB/Gynecology Received: 03/13/2025 11:58 AM First Screen: Aramouni, Nikole, CT, ASCP Specimen: Pap Test, ThinPrep, Cervix Performed By: #### L [id number] #### [facility] CLIA [id number] [address] [place] [address], [address] [place] [address] [place] [facility] CLIA [id number] [address] [place] [address] [place] CLINICAL HISTORY, CYTOLOGY, ROUTE DELIVERY DRIVER Post Menopausal Normal [facility] Comment on above: Order Comment: Speci men Type: FLUID SPECIMEN Ordering Facility: [facility] Address: [address] [place] [address] Performed By: #### L [id number] #### [facility] CLIA [id number] [address] [place] [address] [place] [facility] CLIA [id number] [address] [place], [place] [address] [place] CYTOLOGY PAP OTHER INTERPRETATION Atrophic specimen. Normal [facility] Comment on above: Order Comment: Speci men Type: FLUID SPECIMEN Ordering Facility: [facility] Address: [address] [place] [address] Performed By: #### L [id number] #### [facility] CLIA [id number] [address] [place] [address], [address] [place], [place] [id number] [place] [facility] CLIA [id number] [address] [place], [place] [address] [place] FINAL PERFORMING LAB Normal [facility] Comment on above: Order Comment: Speci men Type: FLUID SPECIMEN Ordering Facility: [facility] Address: [address] [place] [address] Result Comment: Tech nical component, screening nurse screening performed at: [facility], [address] [place] [address], [address] Floor, [place] [address] CLIA: [id number] Diagnostic interpretation performed at: [facility], [address] [place] [address], [address], [place] [address] CLIA# [id number] Rivet Tosser: Alfa Padilla MD Performed By: #### L [id number] #### [facility] CLIA [id number] [address] [place] [address] [address] [place] [address] [place] [facility] CLIA [id number] [address] [place] [address] [place] INTERPRETATION, CYTOLOGY, ROUTE DELIVERY DRIVER Normal [facility] Comment on above: Order Comment: Speci men Type: FLUID SPECIMEN Ordering Facility: [facility] Address: [address] [place] [address] Result Comment: Nega tive for intraepithelial lesion or malignancy. at 0913 EDT Performed By: #### L [id number] #### [facility] CLIA [id number] [address] [place] [address] 3, [address] [place] [address] [place] [facility] CLIA [id number] [address] [place] [address] [place] PAP DISCLAIMER COMMENT The Pap Smear is a screening test for cervical cancer. False negative results occur with all screening tests, emphasizing the need for rescreening at recommended intervals, and clinical correlation. Normal [facility] Comment on above: Order Comment: Speci men Type: FLUID SPECIMEN Ordering Facility: [facility] Address: [address] [place] [address] Performed By: #### L [id number] #### [facility] CLIA [id number] [address] [place] [address] [address] [place] [id number] [place] [facility] CLIA [id number] [address] [place] [address] [place] PAP SENIOR ENGINEERING TECHNICIAN COMMENT This specimen has been analyzed by the FDA-approved Itugo System, which uses digital imaging and an enhanced artificial intelligence image analysis algorithm to identify byrd of interest on the microscopic slide, to assist the mixing technician and pathologist in evaluating cells on ThinPrep Pap tests. Following analysis, byrd of interest on the microscopic slide selected by the algorithm are reviewed by a mixing technician. If a sample requires hierarchical review, the pathologist will review the same byrd of interest selected by the algorithm prior to final interpretation. Normal [facility] Comment on above: Order Comment: Speci men Type: FLUID SPECIMEN Ordering Facility: [facility] Address: [address] [place] [address] Performed By: #### L [id number] #### [facility] CLIA [id number] [address] [place] [address], [address] [place] [address] OF [facility] CLIA [id number] [address] [place] [address] [place] Office Visit Reporton 2024 Office Visit Report Normal [facility] Venous Duplex US, Unilateral on 03-09-2025 Venous Duplex US, Unilateral Normal [facility] Venous duplex ultrasound rep ortOrdered By: Addi Hassan on 03-09-2025 US Vein [facility] [address] [place] [address]. [place] [address] Venous Duplex US, Unilateral 03/09/25 1454 MR#: [id number] Acct: [id number] Name: ELSA BLUE Rep #:[id number] : 1955 69 From: Addi Hassan MD Attending Dr: Dr. Jose Ramon Terry DO Status: REG CLI Ordering Dr: Jose Ramon [...] Physician: Jose Ramon Terry Referring Physician: Meir Zepeda Performed By: Griselda Caldwell, ANDREA, RVT 03/09/251842 Date _ Addi Hassan MD CC: Dr. Meir Zepeda MD; Dr. Jose Ramon Terry DO ~ Date Dictated: 03/09/25 1454 Date Transcribed: 03/09/251842 Clean Room Assembler: Signed [facility] Other Phone: Orthopedic Visit Reporton Orthopedic Visit Report Normal W [facility] VALENTIN SCREENING W TOMOon 02-23 VALENTIN SCREENING W GAL * * *Final Report* * * DATE OF EXAM: Feb 23 2025 3:22PM W 0582 - VALENTIN SCREENING W GAL / PROCEDURE REASON: screening * * * * Physician Interpretation * * * * RESULT: [place] [address] [place] [id number] #[id number] - VALENTIN SCREENING W GAL HISTORY: 69 [...] Rae Jung M.D. Electronically signed on: 02/24/2025 Clean Room Assembler: JOHAN Transcribe Date/Time: Feb 23 2025 2:25P Dictated by: RAE JUNG MD This examination was interpreted and the report reviewed and electronically signed by: RAE JUNG MD on Feb 24 2025 8:25AM EST [id number] Normal [facility] Anion gap in Serum or Plasma Ordered By: Meir Zepeda on 02-19-2025 Anion gap [Moles/Vol] 16 mmol/L High - [facility] BUN/creatinine ratioOrdered By: Meir Zepeda on 02-19-2025 Urea nitrogen/Creatinine [Mass ratio] 27.8 mg/mg High - [facility] Basic Metabolic Profile (BMP )on 02-19-2025 BUN/CRE 27.8 RATIO High 05-11 [facility] Comment on above: Performed By: #### L 506.1001, L500.4100, L500.2500 ####[facility] [address] [place], [address] Calcium [Mass/Vol] 9.8 mg/dL Normal 7.6-11.0 [facility] Comment on above: Performed By: #### L 506.1001, L500.4100, L500.2500 ####[facility] [address] [place], [address] Chloride [Moles/Vol] 96 mmol/L Low 98-108 [facility] Comment on above: Performed By: #### L 506.1001, L500.4100, L500.2500 ####[facility] [address] [place], [address] CO2 [Moles/Vol] 26.0 mmol/L Normal 21.0-32.0 [facility] Comment on above: Performed By: #### L 506.1001, L500.4100, L500.2500 ####[facility] [address] [place], [address] Creatinine [Mass/Vol] 0.98 mg/dL Normal 0.70-1.20 [facility] Comment on above: Performed By: #### L 506.1001, L500.4100, L500.2500 ####[facility] [address] [place], [address] GAP 16 High - [facility] Comment on above: Performed By: #### L 506.1001, L500.4100, L500.2500 ####[facility] [address] [place], [address] GFR/1.73 sq M.predicted among non-blacks MDRD (S/P/Bld) [Vol rate/Area] 63 mL/min/{1.73_m2} Normal >60 [facility] Comment on above: Result Comment: mL/m in/1.73m2 CKD-EPI Creatinine Equation (2020) Performed By: #### L 506.1001, L500.4100, L500.2500 ####[facility] [address] [place], [address] Glucose [Mass/Vol] 123 mg/dL High 70-99 [facility] Comment on above: Performed By: #### L 506.1001, L500.4100, L500.2500 ####[facility] [address] [place], [address] Potassium [Moles/Vol] 4.4 mmol/L Normal 3.3-5.1 [facility] Comment on above: Performed By: #### L 506.1001, L500.4100, L500.2500 ####[facility] [address] [place], [address] Sodium [Moles/Vol] 138 mmol/L Normal 133-145 [facility] Comment on above: Performed By: #### L 506.1001, L500.4100, L500.2500 ####[facility] [address] [place], [address] Urea nitrogen [Mass/Vol] 27 mg/dL High 4-19 [facility] Comment on above: Performed By: #### L 506.1001, L500.4100, L500.2500 ####[facility] [address] [place], [address] Calculated very low density lipoprotein (VLDL) cholesterol measurementOrdered By: Meir Zepeda on 02-19-2025 Calculated very low density lipoprotein (VLDL) cholesterol measurement 33 mg/dL 5-40 [facility] Carbon dioxide, total [Moles /volume] in Central venous bloodOrdered By: Meir Zepeda on 02-19-2025 CO2 [Moles/Vol] 26.0 mmol/L 21.0-32.0 [facility] Chloride assayOrdered By: Jose Zepeda on 02-19-2025 Chloride [Moles/Vol] 96 mmol/L Low 98-108 [facility] Glomerular filtration rate ( GFR) estimation/1.73 sq m using serum, plasma, or whole bOrdered By: Meir Zepeda on 02-19-2025 GFR/1.73 sq M.predicted among non-blacks MDRD (S/P/Bld) [Vol rate/Area] 63 mL/min/{1.73_m2} >60 [facility] Comment on above: mL/min/1.73m2 CKD-EP I Creatinine Equation (2020) LDL calc ser/plasOrdered By: Meir Zepeda on 02-19-2025 Cholesterol in LDL [Mass/Vol] 123 mg/dL [facility] Comment on above: Epbhuilhuk=807-495 m g/dL & Higher Gxxr=763 mg/dL or greaterFriedwald Equation for LDL-C Lipid Profileon 02-19-2025 CHOL:HDL 3.98 Normal [facility] Comment on above: Performed By: #### L 506.1001, L500.4100, L500.2500 ####[facility] [address] [place], [place], [address] Cholesterol [Mass/Vol] 209 mg/dL High <=200 [facility] Comment on above: Result Comment: Chol esterol level, Desirable <200 mg/dLBorderline high cholesterol 200-239 mg/dLHigh cholesterol >=240 mg/dLRecommendations of the NCEP Adult Treatment Panel for thefollowing risk-cutoff thresholds for the [place] Americanpopulation. Performed By: #### L 506.1001, L500.4100, L500.2500 ####[facility] [address] [place], [address] Cholesterol in HDL [Mass/Vol] 53 mg/dL Normal [facility] Comment on above: Result Comment: Florencia onal Cholesterol Education Program (NCEP) guidelines:<40 mg/dL: Low HDL-cholesterol (major risk factor for CHD)>= 60 mg/dL: High HDL-cholesterol (negative risk factor forCHD)HDL-cholesterol is affected by a number of factors, e.g.smoking, exercise, hormones, sex and age. Performed By: #### L 506.1001, L500.4100, L500.2500 ####[facility] [address] [place], [address] Cholesterol in LDL [Mass/Vol] 123 mg/dL Normal [facility] Comment on above: Result Comment: Bord lbfumg=266-846 mg/dL Higher Xlfq=486 mg/dL or greaterFriedwald Equation for LDL-C Performed By: #### L 506.1001, L500.4100, L500.2500 ####[facility] [address] [place], [address] Cholesterol in VLDL [Mass/Vol] 33 mg/dL Normal 5-40 [facility] Comment on above: Performed By: #### L 506.1001, L500.4100, L500.2500 ####[facility] [address] [place], [address] Triglyceride [Mass/Vol] 167 mg/dL Normal [facility] Comment on above: Result Comment: The drugs N-Acetylcysteine and Metamizole may falselydepress this assay.Normal range: <150 mg/dLBorderline High: 150-199 mg/dLHigh: 200-499 mg/dLVery High: >500 mg/dL Performed By: #### L 506.1001, L500.4100, L500.2500 ####[facility] [address] [place], [address] Potassium measurement (mass/ volume)Ordered By: Meir Zepeda on 02-19-2025 Potassium (Unsp spec) [Mass/Vol] 4.4 mmol/L 3.3-5.1 [facility] Screening total cholesterol/ high density lipoprotein (HDL) cholesterol ratioOrdered By: Meir Zepead on 02-19-2025 Cholesterol.total/Cholester ol in HDL [Mass ratio] 3.98 {ratio} [facility] Serum creatinine measurement (mass/volume)Ordered By: Meir Zepeda on 02-19-2025 Creatinine [Mass/Vol] 0.98 mg/dL 0.70-1.20 [facility] Serum glucose measurement (m ass/volume)Ordered By: Meir Rachelle on 02-19-2025 Glucose [Mass/Vol] 123 mg/dL High 70-99 [facility] Serum or plasma calcium ajtin urement (mass/volume)Ordered By: Meir Zepeda on 02-19-2025 Calcium [Mass/Vol] 9.8 mg/dL 7.6-11.0 [facility] Serum or plasma cholesterol in HDL measurement (mass/volume)Ordered By: Meir Zepeda on 02-19-2025 Cholesterol in HDL [Mass/Vol] 53 mg/dL >40 [facility] Comment on above: National Cholesterol Education Program (NCEP) guidelines:<40 mg/dL: Low HDL-cholesterol (major risk factor for CHD)>= 60 mg/dL: High HDL-cholesterol (negative risk factor for CHD)HDL-cholesterol is affected by a number of factors, e.g. smoking, exercise, hormones, sex and age. Serum or plasma cholesterol measurement (mass/volume)Ordered By: Meir Zepeda on 02-19-2025 Cholesterol [Mass/Vol] 209 mg/dL High <201 [facility] Comment on above: Cholesterol level, D esirable <200 mg/dLBorderline high cholesterol 200-239 mg/dLHigh cholesterol >=240 mg/dLRecommendations of the NCEP Adult Treatment Panel for the following risk-cutoff thresholds for the [place] population. Serum or plasma urea nitroge n measurement (mass/volume)Ordered By: Meir Zepeda on 02-19-2025 Urea nitrogen [Mass/Vol] 27 mg/dL High 4-19 [facility] Sodium levelOrdered By: Gladis Zpeeda on 02-19-2025 Sodium [Moles/Vol] 138 mmol/L 133-145 [facility] Triglycerides measurementOrd ered By: Meir Zepeda on 02-19-2025 Triglyceride [Mass/Vol] 167 mg/dL <199 [facility] Comment on above: The drugs N-Acetylcy steine and Metamizole may falsely depress this assay. Normal range: <150 mg/dLBorderline High: 150-199 mg/dLHigh: 200-499 mg/dLVery High: >500 mg/dL Vitamin D,25 Hydroxyon 02-19 Vitamin D 25-OH 34.7 ng/mL Normal 30-100 [facility] Comment on above: Result Comment: Norma min D StatusDeficiency: <20 ng/mL (50nmol/L)Insufficiency: 20-30 ng/mL (50-75 nmol/L)Sufficiency: 30-100 ng/mL (75-250 nmol/L)Toxicity: >100 ng/mL (>250 nmol/L) Performed By: #### L 506.1001, L500.4100, L500.2500 ####[facility] [address] [place], [address] Neurology Visit Reporton Neurology Visit Report Normal [facility] PT D/C Summary (1)on 025 PT D/C Summary (1) Normal [facility] Abdomen/Pelvis without Conto n 01-12-2025 Abdomen/Pelvis without Cont Normal [facility] Absolute lymphocyte countOrd ered By: ED PROVIDER on 01-12-2025 Lymphocytes Auto (Unsp spec) [#/Vol] 2.56 10*3/uL 0.83-4.51 [facility] Absolute neutrophil countOrd ered By: ED PROVIDER on 01-12-2025 Neutrophils (Bld) [#/Vol] 5.5 10*3/uL 2.0-7.7 [facility] Anion gap in Serum or Plasma Ordered By: Juan Manuel Enamorado on 01-12-2025 Anion gap [Moles/Vol] 12 mmol/L 5-15 [facility] Automated lymphocyte count a s percentage of total leukocytesOrdered By: ED PROVIDER on 01-12-2025 Lymphocytes/100 WBC Auto (Unsp spec) 29.0 % 19-41 [facility] BUN/creatinine ratioOrdered By: Juan Manuel Enamorado on 01-12-2025 Urea nitrogen/Creatinine [Mass ratio] 21.4 mg/mg High 10-20 [facility] Basophil percentageOrdered B y: ED PROVIDER on 01-12-2025 Basophils/100 WBC (Bld) 0.7 % 0-1 [facility] Bilirubin Test strip Ql (U)O rdered By: ED PROVIDER on 01-12-2025 Bilirubin Ql (U) Negative Negative [facility] Bilirubin, totalOrdered By: Juan Manuel Enamorado on 01-12-2025 Bilirubin [Mass/Vol] 0.26 mg/dL 0.00-1.30 [facility] CBC W/Diff, Automatedon 12-22 Absolute Lymph 2.56 X10 3/uL Normal 0.83-4.51 [facility] Comment on above: Performed By: #### L 500.4050, L100.0100 ####[facility] [address] [place], [address] Absolute Neut 5.5 X10 3/uL Normal 2.0-7.7 [facility] Comment on above: Performed By: #### L 500.4050, L100.0100 ####[facility] [address] [place], [address] Basophils/100 WBC (Bld) 0.7 % Normal 0-1 [facility] Comment on above: Performed By: #### L 500.4050, L100.0100 ####[facility] [address] [place], [address] Eosinophils/100 WBC (Bld) 1.1 % Normal 0-5 [facility] Comment on above: Performed By: #### L 500.4050, L100.0100 ####[facility] [address] [place], [address] Erythrocyte distribution width (RBC) [Ratio] 14.4 % Normal 11.6-14.6 [facility] Comment on above: Performed By: #### L 500.4050, L100.0100 ####[facility] [address] [place], [address] Hematocrit (Bld) [Volume fraction] 37.4 % Normal 37-47 [facility] Comment on above: Performed By: #### L 500.4050, L100.0100 ####[facility] [address] [place], [address] Hemoglobin (Bld) [Mass/Vol] 12.3 g/dL Normal 12.0-15. 0 [facility] Comment on above: Performed By: #### L 500.4050, L100.0100 ####[facility] [address] [place], [address] IG% 0.800 Normal 0.0-0.9 [facility] Comment on above: Result Comment: IG% - Immature Granulocytes (promyelocytes, myelocytes andmetamyelocytes) > 1% indicates that a LEFT SHIFT is Present. Performed By: #### L 500.4050, L100.0100 ####[facility] [address] [place], [address] Lymphocytes/100 WBC (Bld) 29.0 % Normal 19-41 [facility] Comment on above: Performed By: #### L 500.4050, L100.0100 ####[facility] [address] [place], [address] MCH (RBC) [Entitic mass] 30.9 pg Normal 27.0-32.0 [facility] Comment on above: Performed By: #### L 500.4050, L100.0100 ####[facility] [address] [place], [address] MCHC (RBC) [Mass/Vol] 32.9 g/dL Normal 32-36 [facility] Comment on above: Performed By: #### L 500.4050, L100.0100 ####[facility] [address] [place], [address] MCV (RBC) [Entitic vol] 94.0 fL Normal 81-99 [facility] Comment on above: Performed By: #### L 500.4050, L100.0100 ####[facility] [address] [place], [address] Monocytes/100 WBC (Bld) 6.5 % Normal 0-10 [facility] Comment on above: Performed By: #### L 500.4050, L100.0100 ####[facility] [address] [place], [address] Neutrophils/100 WBC (Bld) 61.9 % Normal 47-70 [facility] Comment on above: Performed By: #### L 500.4050, L100.0100 ####[facility] [address] [place], [address] Nucleated RBC (Bld) [#/Vol] 0 10*3/uL Normal 0-5 [facility] Comment on above: Performed By: #### L 500.4050, L100.0100 ####[facility] [address] [place], [address] Platelet mean volume (Bld) [Entitic vol] 9.9 fL Normal 6.2-12.0 [facility] Comment on above: Performed By: #### L 500.4050, L100.0100 ####[facility] [address] [place], [address] Platelets (Bld) [#/Vol] 311 10*3/uL Normal 150-450 [facility] Comment on above: Performed By: #### L 500.4050, L100.0100 ####[facility] [address] [place], [address] RBC (Bld) [#/Vol] 3.98 10*6/uL Low 4.2-5.4 [facility] Comment on above: Performed By: #### L 500.4050, L100.0100 ####[facility] [address] [place], [address] RDW SD 49.1 fl High 35.1-43.9 [facility] Comment on above: Performed By: #### L 500.4050, L100.0100 ####[facility] [address] [place], [address] WBC (Bld) [#/Vol] 8.8 10*3/uL Normal 4.4-11.0 [facility] Comment on above: Performed By: #### L 500.4050, L100.0100 ####[facility] [address] [place], [address] Carbon dioxide, total [Moles /volume] in Central venous bloodOrdered By: Juan Manuel Enamorado on 01-12-2025 CO2 [Moles/Vol] 25.5 mmol/L 21.0-32.0 [facility] Chloride assayOrdered By: Edith Enamorado on 01-12-2025 Chloride [Moles/Vol] 104 mmol/L 98-108 [facility] Comprehensive Metabolic Prof ilon 01-12-2025 Albumin [Mass/Vol] 4.0 g/dL Normal 3.4-4.8 [facility] Comment on above: Performed By: #### L 500.4050, L100.0100 ####[facility] [address] [place], [address] Albumin/Globulin [Mass ratio] 1.2 {ratio} Normal 0.9-2.4 [facility] Comment on above: Performed By: #### L 500.4050, L100.0100 ####[facility] [address] [place], [address] ALK PHOS 61 U/L Normal 35-104 [facility] Comment on above: Performed By: #### L 500.4050, L100.0100 ####[facility] [address] [place], [address] ALT [Catalytic activity/Vol] 20 U/L Normal <=34 [facility] Comment on above: Performed By: #### L 500.4050, L100.0100 ####[facility] [address] [place], [address] AST [Catalytic activity/Vol] 30 U/L Normal <=31 [facility] Comment on above: Result Comment: Hemo lysis present, Results??could be affected.?? Performed By: #### L 500.4050, L100.0100 ####[facility] [address] [place], [address] Bilirubin [Mass/Vol] 0.26 mg/dL Normal 0.00-1.30 [facility] Comment on above: Performed By: #### L 500.4050, L100.0100 ####[facility] [address] [place], [address] BUN/CRE 21.4 RATIO High 10-20 [facility] Comment on above: Performed By: #### L 500.4050, L100.0100 ####[facility] [address] [place], [address] Calcium [Mass/Vol] 9.7 mg/dL Normal 7.6-11.0 [facility] Comment on above: Performed By: #### L 500.4050, L100.0100 ####[facility] [address] [place], [address] Chloride [Moles/Vol] 104 mmol/L Normal 98-108 [facility] Comment on above: Performed By: #### L 500.4050, L100.0100 ####[facility] [address] [place], [address] CO2 [Moles/Vol] 25.5 mmol/L Normal 21.0-32.0 [facility] Comment on above: Performed By: #### L 500.4050, L100.0100 ####[facility] [address] [place], [address] Creatinine [Mass/Vol] 0.81 mg/dL Normal 0.70-1.20 [facility] Comment on above: Performed By: #### L 500.4050, L100.0100 ####[facility] [address] [place], [address] ECRCL 80.84 ml/min Normal 50-250 [facility] Comment on above: Performed By: #### L 500.4050, L100.0100 ####[facility] [address] [place], [address] GAP 12 Normal 5-15 [facility] Comment on above: Performed By: #### L 500.4050, L100.0100 ####[facility] [address] [place], [address] GFR/1.73 sq M.predicted among non-blacks MDRD (S/P/Bld) [Vol rate/Area] 79 mL/min/{1.73_m2} Normal >60 [facility] Comment on above: Result Comment: mL/m in/1.73m2 CKD-EPI Creatinine Equation (2020) Performed By: #### L 500.4050, L100.0100 ####[facility] [address] [place], [address] Globulin (S) [Mass/Vol] 3.2 g/dL Normal 2.2-4.2 [facility] Comment on above: Performed By: #### L 500.4050, L100.0100 ####[facility] [address] [place], [address] Glucose [Mass/Vol] 118 mg/dL High 70-99 [facility] Comment on above: Performed By: #### L 500.4050, L100.0100 ####[facility] [address] [place], [address] Potassium [Moles/Vol] 4.8 mmol/L Normal 3.3-5.1 [facility] Comment on above: Result Comment: Hemo lysis present, Results??could be affected.?? Performed By: #### L 500.4050, L100.0100 ####[facility] [address] [place], [address] Sodium [Moles/Vol] 142 mmol/L Normal 133-145 [facility] Comment on above: Performed By: #### L 500.4050, L100.0100 ####[facility] [address] [place], [address] T PROT 7.3 g/dL Normal 5.9-8.4 [facility] Comment on above: Performed By: #### L 500.4050, L100.0100 ####[facility] [address] [place], [address] Urea nitrogen [Mass/Vol] 17 mg/dL Normal 4-19 [facility] Comment on above: Performed By: #### L 500.4050, L100.0100 ####[facility] [address] [place], [address] Emergency Department Summary on 01-12-2025 Emergency Department Summary Normal [facility] Eosinophil percentageOrdered By: ED PROVIDER on 01-12-2025 Eosinophils/100 WBC (Bld) 1.1 % 0-5 [facility] Erythrocyte distribution wid th ratioOrdered By: ED PROVIDER on 01-12-2025 Erythrocyte distribution width (RBC) [Ratio] 14.4 % 11.6-14.6 [facility] Erythrocyte distribution wid th standard deviationOrdered By: ED PROVIDER on 01-12-2025 Erythrocyte distribution width (RBC) [Ratio] 49.1 fl High 35.1-43.9 [facility] Glomerular filtration rate ( GFR) estimation/1.73 sq m using serum, plasma, or whole bOrdered By: Juan Manuel Enamorado on 01-12-2025 GFR/1.73 sq M.predicted among non-blacks MDRD (S/P/Bld) [Vol rate/Area] 79 mL/min/{1.73_m2} >60 [facility] Comment on above: mL/min/1.73m2 CKD-EP I Creatinine Equation (2020) Hematocrit Auto (Bld) [Volum e fraction]Ordered By: ED PROVIDER on 01-12-2025 Hematocrit (Bld) [Volume fraction] 37.4 % 37-47 [facility] Hemoglobin measurementOrdere d By: ED PROVIDER on 01-12-2025 Hemoglobin (Bld) [Mass/Vol] 12.3 g/dL 12.0-15. 0 [facility] Immature granulocytes/100 WB C Auto (Bld)Ordered By: ED PROVIDER on 01-12-2025 Immature granulocytes/100 WBC (Bld) 0.800 % 0.0-0.9 [facility] Comment on above: IG% - Immature Granu locytes (promyelocytes, myelocytes and metamyelocytes) > 1% indicates that a LEFT SHIFT is Present. Ketones Test strip Ql (U)Ord ered By: ED PROVIDER on 01-12-2025 Ketones Ql (U) Negative Negative [facility] Laboratory - Chemistry and C hemistry - challengeOrdered By: Juan Manuel Enamorado on 01-12-2025 AST [Catalytic activity/Vol] 30 U/L <32 [facility] Comment on above: Hemolysis present, R esults could be affected. MCV (mean corpuscular volume ) determinationOrdered By: ED PROVIDER on 01-12-2025 MCV (RBC) [Entitic vol] 94.0 fL 81-99 [facility] Mean corpuscular hemoglobin (MCH) determinationOrdered By: ED PROVIDER on 01-12-2025 MCH (RBC) [Entitic mass] 30.9 pg 27.0-32.0 [facility] Mean corpuscular hemoglobin concentration (MCHC) determinationOrdered By: ED PROVIDER on 01-12-2025 MCHC (RBC) [Mass/Vol] 32.9 g/dL 32-36 [facility] Mean platelet volume determi nationOrdered By: ED PROVIDER on 01-12-2025 Platelet mean volume (Bld) [Entitic vol] 9.9 fL 6.2-12.0 [facility] Microscopic analysis of urin e for red blood cells (RBC)Ordered By: ED PROVIDER on 01-12-2025 Microscopic analysis of urine for red blood cells (RBC) 0 SEEN /hpf 0-5 [facility] Monocyte percentageOrdered B y: ED PROVIDER on 01-12-2025 Monocytes/100 WBC (Bld) 6.5 % 0-10 [facility] Mucus LM Ql (Urine sed)Order ed By: ED PROVIDER on 01-12-2025 Mucus Ql (Urine sed) 0 SEEN /hpf [facility] Neutrophil percentageOrdered By: ED PROVIDER on 01-12-2025 Neutrophils/100 WBC (Bld) 61.9 % 47-70 [facility] Nitrite Test strip Ql (U)Ord ered By: ED PROVIDER on 01-12-2025 Nitrite Ql (U) Negative Negative [facility] No Panel InformationOrdered By: Juan Manuel Enamorado on 01-12-2025 30 U/L <32 [facility] Nucleated red blood cell per centageOrdered By: ED PROVIDER on 01-12-2025 Nucleated RBC/100 WBC (Bld) [Ratio] 0 % 0-5 [facility] Platelet countOrdered By: ED PROVIDER on 01-12-2025 Platelets (Bld) [#/Vol] 311 10*3/uL 150-450 [facility] Potassium measurement (mass/ volume)Ordered By: Juan Manuel Enamorado on 01-12-2025 Potassium (Unsp spec) [Mass/Vol] 4.8 mmol/L 3.3-5.1 [facility] Comment on above: Hemolysis present, R esults could be affected. Protein Test strip Ql (U)Ord ered By: ED PROVIDER on 01-12-2025 Protein Ql (U) 15 mg/dl High Negative [facility] RBC Auto (Bld) [#/Vol]Ordere d By: ED PROVIDER on 01-12-2025 RBC (Bld) [#/Vol] 3.98 10*6/uL Low 4.2-5.4 [facility] Serum creatinine measurement (mass/volume)Ordered By: Juan Manuel Enamorado on 01-12-2025 Creatinine [Mass/Vol] 0.81 mg/dL 0.70-1.20 [facility] Serum globulin measurementOr dered By: Juan Manuel Enamorado on 01-12-2025 Globulin (S) [Mass/Vol] 3.2 g/dL 2.2-4.2 [facility] Serum glucose measurement (m ass/volume)Ordered By: Juan Manuel Enamorado on 01-12-2025 Glucose [Mass/Vol] 118 mg/dL High 70-99 [facility] Serum or plasma alanine reyes otransferase (ALT) measurementOrdered By: Juan Manuel Enamorado on 01-12-2025 ALT [Catalytic activity/Vol] 20 U/L <35 [facility] Serum or plasma albumin jatin urement (mass/volume)Ordered By: Juan Manuel Enamorado on 01-12-2025 Albumin [Mass/Vol] 4.0 g/dL 3.4-4.8 [facility] Serum or plasma albumin/glob ulin mass ratioOrdered By: Juan Manuel Enamorado on 01-12-2025 Albumin/Globulin [Mass ratio] 1.2 {ratio} 0.9-2.4 [facility] Serum or plasma alkaline lana sphatase measurementOrdered By: Juan Manuel Enamorado on 01-12-2025 ALP [Catalytic activity/Vol] 61 U/L 35-104 [facility] Serum or plasma calcium jatin urement (mass/volume)Ordered By: Juan Manuel Enamorado on 01-12-2025 Calcium [Mass/Vol] 9.7 mg/dL 7.6-11.0 [facility] Serum or plasma urea nitroge n measurement (mass/volume)Ordered By: Juan Manuel Enamorado on 01-12-2025 Urea nitrogen [Mass/Vol] 17 mg/dL 4-19 [facility] Sodium levelOrdered By: Bassam Enamorado on 01-12-2025 Sodium [Moles/Vol] 142 mmol/L 133-145 [facility] Squamous epithelial cells de tection in urine sediment by light microscopyOrdered By: ED PROVIDER on 01-12-2025 Epithelial cells.squamous LM Ql (Urine sed) 0-5 SEEN /hpf 5-10 [facility] Total proteinOrdered By: Alee bran Ungur on 01-12-2025 Protein [Mass/Vol] 7.3 g/dL 5.9-8.4 [facility] Urinalysis, Completeon 01-12 EPI,SQUAMOUS 0-5 SEEN Normal 5-10 [facility] Comment on above: Order Comment: CLEAN CATCH Performed By: #### L 400.0001 ####[facility] [address] [place], [address] BACTERIA 0 SEEN Normal None Seen [facility] Comment on above: Order Comment: CLEAN CATCH Performed By: #### L 400.0001 ####[facility] [address] [place], [address] Mucus Ql (Urine sed) 0 SEEN Normal [facility] Comment on above: Order Comment: CLEAN CATCH Performed By: #### L 400.0001 ####[facility] [address] [place], [address] RBC 0 SEEN Normal 0-5 [facility] Comment on above: Order Comment: CLEAN CATCH Performed By: #### L 400.0001 ####[facility] [address] [place], [address] WBC 0 SEEN Normal 0-5 [facility] Comment on above: Order Comment: CLEAN CATCH Performed By: #### L 400.0001 ####[facility] [address] [place], [address] Urine clarityOrdered By: ED PROVIDER on 01-12-2025 Clarity (U) Sl. Cloudy Clear [facility] Urine color determinationOrd ered By: ED PROVIDER on 01-12-2025 Color (U) Yellow Yellow [facility] Urine glucose detectionOrder ed By: ED PROVIDER on 01-12-2025 Glucose Ql (U) Normal mg/dl Normal [facility] Urine leukocyte esterase det ection by dipstickOrdered By: ED PROVIDER on 01-12-2025 Leukocyte esterase Test strip Ql (U) Negative Negative [facility] Urine pHOrdered By: ED PROVI RADHA on 01-12-2025 pH (U) 6.0 [pH] 5.0 - 8.0 [facility] Urine sediment bacteria coun t by microscopy (number/high power field)Ordered By: ED PROVIDER on 01-12-2025 Bacteria LM.HPF (Urine sed) [#/Area] 0 /[HPF] None Seen [facility] Urine specific gravity measu rementOrdered By: ED PROVIDER on 01-12-2025 Specific gravity (U) [Rel density] 1.015 1.002-1.030 [facility] Urine urobilinogen measureme ntOrdered By: ED PROVIDER on 01-12-2025 Urobilinogen Ql (U) Normal mg/dl Normal [facility] White blood cell (WBC) count Ordered By: ED PROVIDER on 01-12-2025 WBC (Bld) [#/Vol] 8.8 10*3/uL 4.4-11.0 [facility] White blood cell countOrdere d By: ED PROVIDER on 01-12-2025 White blood cell count 0 SEEN /hpf 0-5 [facility] CBC W/Diff, Automatedon 12-21 Absolute Lymph 2.56 X10 3/uL Normal 0.83-4.51 [facility] Comment on above: Order Comment: Order Date: 01/07/25Order Info: [id number] - CBCCC TO DR. YIP Performed By: #### L 100.0100 ####[facility] [address] [place], [place], [phone] Absolute Neut 5.0 X10 3/uL Normal 2.0-7.7 [facility] Comment on above: Order Comment: Order Date: 01/07/25Order Info: [id number] - CBCCC TO DR. YIP Performed By: #### L 100.0100 ####[facility] [address] [place], [address] Basophils/100 WBC (Bld) 0.7 % Normal 0-1 [facility] Comment on above: Order Comment: Order Date: 01/07/25Order Info: [id number] - CBCCC TO DR. YIP Performed By: #### L 100.0100 ####[facility] [address] [place], [address] Eosinophils/100 WBC (Bld) 1.6 % Normal 0-5 [facility] Comment on above: Order Comment: Order Date: 01/07/25Order Info: [id number] - CBCCC TO DR. YIP Performed By: #### L 100.0100 ####[facility] [address] [place], [address] IG% 0.700 Normal 0.0-0.9 [facility] Comment on above: Order Comment: Order Date: 01/07/25Order Info: [id number] - CBCCC TO DR. YIP Result Comment: IG% - Immature Granulocytes (promyelocytes, myelocytes andmetamyelocytes) > 1% indicates that a LEFT SHIFT is Present. Performed By: #### L 100.0100 ####[facility] [address] [place], [address] Lymphocytes/100 WBC (Bld) 30.9 % Normal 19-41 [facility] Comment on above: Order Comment: Order Date: 01/07/25Order Info: [id number] - CBCCC TO DR. YIP Performed By: #### L 100.0100 ####[facility] [address] [place], [address] Monocytes/100 WBC (Bld) 5.6 % Normal 0-10 [facility] Comment on above: Order Comment: Order Date: 01/07/25Order Info: [id number] - CBCCC TO DR. YIP Performed By: #### L 100.0100 ####[facility] [address] [place], [address] Neutrophils/100 WBC (Bld) 60.5 % Normal 47-70 [facility] Comment on above: Order Comment: Order Date: 01/07/25Order Info: [id number] - CBCCC TO DR. YIP Performed By: #### L 100.0100 ####[facility] [address] [place], [place], [address] Nucleated RBC (Bld) [#/Vol] 0 10*3/uL Normal 0-5 [facility] Comment on above: Order Comment: Order Date: 01/07/25Order Info: [id number] - CBCCC TO DR. YIP Performed By: #### L 100.0100 ####[facility] [address] [place], [place], [address] Abdomen Single Viewon 2024 Abdomen Single View Normal [facility] Absolute lymphocyte countOrd ered By: [facility] Lymphocytes Auto (Unsp spec) [#/Vol] 2.56 10*3/uL 0.83-4.51 [facility] Absolute neutrophil countOrd ered By: [facility] on 01-07-2025 Neutrophils (Bld) [#/Vol] 5.0 10*3/uL 2.0-7.7 [facility] Anion gap in Serum or Plasma Or[facility] By: [facility] on 01-07-2025 Anion gap [Moles/Vol] 14 mmol/L 5-15 [facility] Automated lymphocyte count a s percentage of total leukocytesOrdered By: [facility] on 01-07-2025 Lymphocytes/100 WBC Auto (Unsp spec) 30.9 % 19-41 [facility] BUN/creatinine ratioOrdered By: [facility] on 01-07-2025 Urea nitrogen/Creatinine [Mass ratio] 25.0 mg/mg High 10-20 [facility] Basophil percentageOrdered B y: Manolo [facility] on 01-07-2025 Basophils/100 WBC (Bld) 0.7 % 0-1 [facility] Bilirubin, totalOrdered By: [facility] on 01-07-2025 Bilirubin [Mass/Vol] 0.29 mg/dL 0.00-1.30 [facility] CBC-Complete Blood Cnt No Di ffon 01-07-2025 Erythrocyte distribution width (RBC) [Ratio] 14.6 % Normal 11.6-14.6 [facility] Comment on above: Order Comment: Order Date: 01/07/25Order Info: [id number] - CBCCC TO DR. YIP Performed By: #### L 100.0500 ####[facility] [address] [place], [address] Hematocrit (Bld) [Volume fraction] 36.1 % Low 37-47 [facility] Comment on above: Order Comment: Order Date: 01/07/25Order Info: [id number] - CBCCC TO DR. YIP Performed By: #### L 100.0500 ####[facility] [address] [place], [address] Hemoglobin (Bld) [Mass/Vol] 11.9 g/dL Low 12.0-15. 0 [facility] Comment on above: Order Comment: Order Date: 01/07/25Order Info: [id number] - CBCCC TO DR. YIP Performed By: #### L 100.0500 ####[facility] [address] [place], [address] MCH (RBC) [Entitic mass] 30.7 pg Normal 27.0-32.0 [facility] Comment on above: Order Comment: Order Date: 01/07/25Order Info: 10374-8 - CBCCC TO DR. YIP Performed By: #### L 100.0500 ####[facility] [address] [place], [address] MCHC (RBC) [Mass/Vol] 33.0 g/dL Normal 32-36 [facility] Comment on above: Order Comment: Order Date: 01/07/25Order Info: 14243-4 - CBCCC TO DR. YIP Performed By: #### L 100.0500 ####[facility] [address] [place], [address] MCV (RBC) [Entitic vol] 93.3 fL Normal 81-99 [facility] Comment on above: Order Comment: Order Date: 01/07/25Order Info: 39144-7 - CBCCC TO DR. YIP Performed By: #### L 100.0500 ####[facility] [address] [place], [address] Platelet mean volume (Bld) [Entitic vol] 10.2 fL Normal 6.2-12.0 [facility] Comment on above: Order Comment: Order Date: 01/07/25Order Info: [id number] - CBCCC TO DR. YIP Performed By: #### L 100.0500 ####[facility] [address] [place], [address] Platelets (Bld) [#/Vol] 345 10*3/uL Normal 150-450 [facility] Comment on above: Order Comment: Order Date: 01/07/25Order Info: 46719-3 - CBCCC TO DR. YIP Performed By: #### L 100.0500 ####[facility] [address] [place], [address] RBC (Bld) [#/Vol] 3.87 10*6/uL Low 4.2-5.4 [facility] Comment on above: Order Comment: Order Date: 01/07/25Order Info: [id number] - CBCCC TO DR. YIP Performed By: #### L 100.0500 ####[facility] [address] [place], [address] RDW SD 49.4 fl High 35.1-43.9 [facility] Comment on above: Order Comment: Order Date: 01/07/25Order Info: [id number] - CBCCC TO DR. YIP Performed By: #### L 100.0500 ####[facility] [address] [place], [address] WBC (Bld) [#/Vol] 8.4 10*3/uL Normal 4.4-11.0 [facility] Comment on above: Order Comment: Order Date: 01/07/25Order Info: [id number] - CBCCC TO DR. YIP Performed By: #### L 100.0500 ####[facility] [address] [place], [address] Carbon dioxide, total [Moles /volume] in Central venous bloodOrdered By: Manolo McMorrow on 01-07-2025 CO2 [Moles/Vol] 26.0 mmol/L 21.0-32.0 [facility] Chloride assayOrdered By: An gel McMorrow on 01-07-2025 Chloride [Moles/Vol] 98 mmol/L 98-108 [facility] Comprehensive Metabolic Prof ilon 01-07-2025 Albumin [Mass/Vol] 4.2 g/dL Normal 3.4-4.8 [facility] Comment on above: Order Comment: Order Date: 01/07/25Order Info: 0786-1 - CMPCC CMP AND CBC TO DR. YIP Performed By: #### L 500.4050 ####[facility] [address] [place], [address] Albumin/Globulin [Mass ratio] 1.4 {ratio} Normal 0.9-2.4 [facility] Comment on above: Order Comment: Order Date: 01/07/25Order Info: 0786-1 - CMPCC CMP AND CBC TO DR. YIP Performed By: #### L 500.4050 ####[facility] [address] [place], [address] ALK PHOS 61 U/L Normal 35-104 [facility] Comment on above: Order Comment: Order Date: 01/07/25Order Info: 0786-1 - CMPCC CMP AND CBC TO DR. YIP Performed By: #### L 500.4050 ####[facility] [address] [place], [address] ALT [Catalytic activity/Vol] 19 U/L Normal <=34 [facility] Comment on above: Order Comment: Order Date: 01/07/25Order Info: 0786-1 - CMPCC CMP AND CBC TO DR. YIP Performed By: #### L 500.4050 ####[facility] [address] [place], [address] AST [Catalytic activity/Vol] 20 U/L Normal <=31 [facility] Comment on above: Order Comment: Order Date: 01/07/25Order Info: 0786-1 - CMPCC CMP AND CBC TO DR. YIP Performed By: #### L 500.4050 ####[facility] [address] [place], [address] Bilirubin [Mass/Vol] 0.29 mg/dL Normal 0.00-1.30 [facility] Comment on above: Order Comment: Order Date: 01/07/25Order Info: 0786-1 - CMPCC CMP AND CBC TO DR. YIP Performed By: #### L 500.4050 ####[facility] [address] [place], [address] BUN/CRE 25.0 RATIO High 10-20 [facility] Comment on above: Order Comment: Order Date: 01/07/25Order Info: 0786-1 - CMPCC CMP AND CBC TO DR. YIP Performed By: #### L 500.4050 ####[facility] [address] [place], [address] Calcium [Mass/Vol] 9.3 mg/dL Normal 7.6-11.0 [facility] Comment on above: Order Comment: Order Date: 01/07/25Order Info: 0786-1 - CMPCC CMP AND CBC TO DR. YIP Performed By: #### L 500.4050 ####[facility] [address] [place], [address] Chloride [Moles/Vol] 98 mmol/L Normal 98-108 [facility] Comment on above: Order Comment: Order Date: 01/07/25Order Info: 0786-1 - CMPCC CMP AND CBC TO DR. YIP Performed By: #### L 500.4050 ####[facility] [address] [place], [address] CO2 [Moles/Vol] 26.0 mmol/L Normal 21.0-32.0 [facility] Comment on above: Order Comment: Order Date: 01/07/25Order Info: 0786-1 - CMPCC CMP AND CBC TO DR. YIP Performed By: #### L 500.4050 ####[facility] [address] [place], [address] Creatinine [Mass/Vol] 0.79 mg/dL Normal 0.70-1.20 [facility] Comment on above: Order Comment: Order Date: 01/07/25Order Info: 0786-1 - CMPCC CMP AND CBC TO DR. YIP Performed By: #### L 500.4050 ####[facility] [address] [place], [address] GAP 14 Normal 5-15 [facility] Comment on above: Order Comment: Order Date: 01/07/25Order Info: 0786-1 - CMPCC CMP AND CBC TO DR. YIP Performed By: #### L 500.4050 ####[facility] [address] [place], [address] GFR/1.73 sq M.predicted among non-blacks MDRD (S/P/Bld) [Vol rate/Area] 81 mL/min/{1.73_m2} Normal >60 [facility] Comment on above: Order Comment: Order Date: 01/07/25Order Info: 0786-1 - CMPCC CMP AND CBC TO DR. YIP Result Comment: mL/m in/1.73m2 CKD-EPI Creatinine Equation (2020) Performed By: #### L 500.4050 ####[facility] [address] [place], [address] Globulin (S) [Mass/Vol] 2.9 g/dL Normal 2.2-4.2 [facility] Comment on above: Order Comment: Order Date: 01/07/25Order Info: 0786-1 - CMPCC CMP AND CBC TO DR. YIP Performed By: #### L 500.4050 ####[facility] [address] [place], [address] Glucose [Mass/Vol] 135 mg/dL High 70-99 [facility] Comment on above: Order Comment: Order Date: 01/07/25Order Info: 0786-1 - CMPCC CMP AND CBC TO DR. YIP Performed By: #### L 500.4050 ####[facility] [address] [place], [address] Potassium [Moles/Vol] 3.8 mmol/L Normal 3.3-5.1 [facility] Comment on above: Order Comment: Order Date: 01/07/25Order Info: 0786-1 - CMPCC CMP AND CBC TO DR. YIP Performed By: #### L 500.4050 ####[facility] [address] [place], [address] Sodium [Moles/Vol] 138 mmol/L Normal 133-145 [facility] Comment on above: Order Comment: Order Date: 01/07/25Order Info: 0786-1 - CMPCC CMP AND CBC TO DR. YIP Performed By: #### L 500.4050 ####[facility] [address] [place], [address] T PROT 7.1 g/dL Normal 5.9-8.4 [facility] Comment on above: Order Comment: Order Date: 01/07/25Order Info: 0786-1 - CMPCC CMP AND CBC TO DR. YIP Performed By: #### L 500.4050 ####[facility] [address] [place], [place], [address] Urea nitrogen [Mass/Vol] 20 mg/dL High 4-19 [facility] Comment on above: Order Comment: Order Date: 01/07/25Order Info: 0786-1 - CMPCC CMP AND CBC TO DR. YIP Performed By: #### L 500.4056 ####[facility] [address] [place], [place], [address] Eosinophil percentageOrdered By: [facility] on 01-07-2025 Eosinophils/100 WBC (Bld) 1.6 % 0-5 [facility] Erythrocyte distribution wid th ratioOrdered By: [facility] 01-07-2025 Erythrocyte distribution width (RBC) [Ratio] 14.6 % 11.6-14.6 [facility] Erythrocyte distribution wid th standard deviationOrdered By: [facility] 01-07-2025 Erythrocyte distribution width (RBC) [Ratio] 49.4 fl High 35.1-43.9 [facility] Glomerular filtration rate ( GFR) estimation/1.73 sq m using serum, plasma, or whole bOrdered By: [facility] 01-07-2025 GFR/1.73 sq M.predicted among non-blacks MDRD (S/P/Bld) [Vol rate/Area] 81 mL/min/{1.73_m2} >60 [facility] Comment on above: mL/min/1.73m2 CKD-EP I Creatinine Equation (2020) Hematocrit Auto (Bld) [Volum e fraction]Ordered By: [facility] 01-07-2025 Hematocrit (Bld) [Volume fraction] 36.1 % Low 37-47 [facility] Hemoglobin measurementOrdere d By: [facility] 01-07-2025 Hemoglobin (Bld) [Mass/Vol] 11.9 g/dL Low 12.0-15. 0 [facility] Immature granulocytes/100 WB C Auto (Bld)Ordered By: [facility] 01-07-2025 Immature granulocytes/100 WBC (Bld) 0.700 % 0.0-0.9 [facility] Comment on above: IG% - Immature Granu locytes (promyelocytes, myelocytes and metamyelocytes) > 1% indicates that a LEFT SHIFT is Present. Laboratory - Chemistry and C hemistry - challengeOrdered By: Manolo [facility] [place] 01-07-2025 AST [Catalytic activity/Vol] 20 U/L <32 [facility] MCV (mean corpuscular volume ) determinationOrdered By: [facility] 01-07-2025 MCV (RBC) [Entitic vol] 93.3 fL 81-99 [facility] Mean corpuscular hemoglobin (MCH) determinationOrdered By: [facility]01-07-2025 MCH (RBC) [Entitic mass] 30.7 pg 27.0-32.0 [facility] Mean corpuscular hemoglobin concentration (MCHC) determinationOrdered By: [facility]01-07[facility]20[facility] MCHC (RBC) [Mass/Vol] 33.0 g/dL 32-36 [facility] Mean platelet volume determi nationOrdered By: Manolo [facility] on 01-07-2025 Platelet mean volume (Bld) [Entitic vol] 10.2 fL 6.2-12.0 [facility] Monocyte percentageOrdered B y: [facility] on 01-07-2025 Monocytes/100 WBC (Bld) 5.6 % 0-10 [facility] Neutrophil percentageOrdered By: [facility]01-07-2025 Neutrophils/100 WBC (Bld) 60.5 % 47-70 [facility] No Panel InformationOrdered By: Manolo [facility] on 01-07-2025 20 U/L <32 [facility] Nucleated red blood cell per centageOrdered By: [facility] 01-07-2025 Nucleated RBC/100 WBC (Bld) [Ratio] 0 % 0-5 [facility] Platelet countOrdered By: [facility]ato [facility] Platelets (Bld) [#/Vol] 345 10*3/uL 150-450 [facility] Potassium measurement (mass/ volume)Ordered By: [facility] 01-07-2025 Potassium (Unsp spec) [Mass/Vol] 3.8 mmol/L 3.3-5.1 [facility] RBC Auto (Bld) [#/Vol]Ordere d By: on 01-07-2025 RBC (Bld) [#/Vol] 3.87 10*6/uL Low 4.2-5.4 [facility] Serum creatinine measurement (mass/volume)Ordered By: Manolo pavel 01-07-2025 Creatinine [Mass/Vol] 0.79 mg/dL 0.70-1.20 [facility] Serum globulin measurementOr dered By: Manolo Delaneyefra 01-07-2025 Globulin (S) [Mass/Vol] 2.9 g/dL 2.2-4.2 [facility] Serum glucose measurement (m ass/volume)Ordered By: Manolo 01-07-2025 Glucose [Mass/Vol] 135 mg/dL High 70-99 [facility] Serum or plasma alanine reyes otransferase (ALT) measurementOrdered By: Manolo efra 01-07-2025 ALT [Catalytic activity/Vol] 19 U/L <35 [facility] Serum or plasma albumin jatin urement (mass/volume)Ordered By: Manolo 01-07-2025 Albumin [Mass/Vol] 4.2 g/dL 3.4-4.8 [facility] Serum or plasma albumin/glob ulin mass ratioOrdered By: 01-07-2025 Albumin/Globulin [Mass ratio] 1.4 {ratio} 0.9-2.4 [facility] Serum or plasma alkaline lana sphatase measurementOrdered By: Manolo 01-07-2025 ALP [Catalytic activity/Vol] 61 U/L 35-104 [facility] Serum or plasma calcium jatin urement (mass/volume)Ordered By: Manolo 01-07-2025 Calcium [Mass/Vol] 9.3 mg/dL 7.6-11.0 [facility] Serum or plasma urea nitroge n measurement (mass/volume)Ordered By: Manolo Valdez 01-07-2025 Urea nitrogen [Mass/Vol] 20 mg/dL High 4-19 [facility] Sodium levelOrdered By: Jonelle Valdez on 06-18-2025 Sodium [Moles/Vol] 138 mmol/L 133-145 [facility] Total proteinOrdered By: Amlicar melchor McMorrow on 01-07-2025 Protein [Mass/Vol] 7.1 g/dL 5.9-8.4 [facility] White blood cell (WBC) count Ordered By: Manolo Delaneyorrow on 01-07-2025 WBC (Bld) [#/Vol] 8.4 10*3/uL 4.4-11.0 [facility] CNOVon 12-27-2024 CNOV Office Visit (UCWSTR) ELSA BLUE ([id number]) 1955 F Date Time Provider Department 12/27/24 10:00 AM [facility] During your visit today, we recorded the following information about you: Temperature Pulse Respiration Blood pressure 97.1 degrees 86/minute 21/minute 110/58 Weight 106.8 kg Leonardo Dhillon APRN.SMOKING PIPE REPAIRER 12/27/2024 12:59 PM Signed This note was created using [employer]. Subjective Elsa Blue is a 69 year old female. [...] GENERAL 3V AP/LAT/OBL LEFT Leonardo Dhillon APRN.ERAN Allergies As of Date: 12/27/2024 Noted Allergy Reaction BACTRIM (SULFAMETHOXAZOLE-TR IMETH*09/13/2018 8 - GI Upset LEVOFLOXACIN 05/30/2021 8 - GI Upset 11 - Vomiting LIPITOR (ATORVASTATIN CALCIUM) 03/18/2015 17 - Myalgia Date Reviewed: 12/27/2024 Reviewed by: Leonardo Dhillon APRN.SMOKING PIPE REPAIRER - Fully Assessed Reason for Visit: Minor Injuries (Sprains, Strains, Minor Joint Pain) [4230] Cmt: Left ankle pain x 5 months, fell 2 days ago and now pain is worse Primary Visit Diagnosis:Acute left ankle pain [M25.572] Order(s):XR ANKLE GENERAL 3V AP/LAT/OBL LEFT [8678262] Order #: [id number] FUTURE Prescriptions as of 12/27/2024 - hydrOXYchloroQUINE [...] 05/13/2014 W (more content not included)... Normal [facility] XR ANKLE 3V AP/LAT/OBL LTon 12-27-2024 XR [...] IMPRESSION: No acute bony or joint space mailroom assistant: PSCTadeo Transcribe Date/Time: Dec 27 2024 12:42P Dictated by : GURWINDER MCKEE MD This examination was interpreted and the report reviewed and electronically signed by: GURWINDER MCKEE MD on Dec 27 2024 12:42PM EST [id number] Normal [facility] XR Ankle - left AP and Later al and obliqueon 12-27-2024 IMPRESSION: No acute bony or joint space mailroom assistant: [facility] Transcribe Date/Time: Dec 27 2024 12:42P [...] fracture. Calcaneal spurring. DIVISION OF RADIOLOGY Provider, [facility] [place] - 12/27/2024 * * *Final Report* * [...] IMPRESSION: No acute bony or joint space mailroom assistant: [facility] Transcribe Date/Time: Dec 27 2024 12:42P Dictated by : GURWINDER MCKEE MD This examination was interpreted and the report reviewed and electronically signed by: GURWINDER MCKEE MD on Dec 27 2024 12:42PM EST [facility] Radiology Study observation (narrative) [facility] XR Ankle - left AP and Later al and obliqueOrdered By: [facility] Provider on 12-27-2024 [facility] Inital Evaluation (1) - PTon 12-16-2024 Inital Evaluation (1) - PT Normal [facility] Office Visit Reporton 2024 Office Visit Report Normal [facility] HIP, UNI W/ Pelvis 2-3 Views on 11-21-2024 HIP, UNI W/ Pelvis 2-3 Views Normal [facility] Orthopedic Visit Reporton Orthopedic Visit Report Normal [facility] normalized rat io (INR) calculationOrdered By: Candida Diaz on 2024 INR Coag (Bld) [Relative time] 1.1 {INR} [facility] Prothrombin Time w/INRon INR Coag (PPP) [Relative time] 1.1 {INR} Normal [facility] Comment on above: Performed By: #### L 300.3900 ####[facility] [address] [facility] [place], [place], [id number] PT Coag (PPP) [Time] 13.9 s Normal 11.7-14.9 [facility] Comment on above: Performed By: #### L 300.3900 ####[facility] [address] [place], [place], [id number] Prothrombin timeOrdered By: Candida Diaz on 2024 PT Coag (PPP) [Time] 13.9 s 11.7-14.9 [facility] L/S Spine Min 4 Viewson 10-21 L/S Spine Min 4 Views Normal [facility] Orthopedic Visit Reporton Orthopedic Visit Report Normal [facility] Office Visit Reporton 2024 Office Visit Report Normal [facility] Absolute lymphocyte countOrd ered By: Doris Yip on 10-23-2024 Lymphocytes Auto (Unsp spec) [#/Vol] 2.17 10*3/uL 0.83-4.51 [facility] Absolute neutrophil countOrd ered By: Doris Yip on 10-23-2024 Neutrophils (Bld) [#/Vol] 8.0 10*3/uL High 2.0-7.7 [facility] Anion gap in Serum or Plasma Ordered By: Doris Yip on 10-23-2024 Anion gap [Moles/Vol] 15 mmol/L 5-15 [facility] Automated lymphocyte count a s percentage of total leukocytesOrdered By: Doris Yip on 10-23-2024 Lymphocytes/100 WBC Auto (Unsp spec) 19.5 % 19-41 [facility] BUN/creatinine ratioOrdered By: Dorisasher iYp on 10-23-2024 Urea nitrogen/Creatinine [Mass ratio] 21.9 mg/mg High 10-20 [facility] Basophil percentageOrdered B y: Doris Yip on 10-23-2024 Basophils/100 WBC (Bld) 0.4 % 0-1 [facility] Bilirubin, totalOrdered By: Doris Yip on 10-23-2024 Bilirubin [Mass/Vol] 0.27 mg/dL 0.00-1.30 [facility] CBC W/Diff, Automatedon Absolute Lymph 2.17 X10 3/uL Normal 0.83-4.51 [facility] Comment on above: Performed By: #### L 100.0100, L500.4050 ####[facility] [address] [place], [address] Absolute Neut 8.0 X10 3/uL High 2.0-7.7 [facility] Comment on above: Performed By: #### L 100.0100, L500.4050 ####[facility] [address] [place], [address] Basophils/100 WBC (Bld) 0.4 % Normal 0-1 [facility] Comment on above: Performed By: #### L 100.0100, L500.4050 ####[facility] [address] [place], [address] Eosinophils/100 WBC (Bld) 1.2 % Normal 0-5 [facility] Comment on above: Performed By: #### L 100.0100, L500.4050 ####[facility] [address] [place], [address] Erythrocyte distribution width (RBC) [Ratio] 14.7 % High 11.6-14.6 [facility] Comment on above: Performed By: #### L 100.0100, L500.4050 ####[facility] [address] [place], [address] Hematocrit (Bld) [Volume fraction] 38.1 % Normal 37-47 [facility] Comment on above: Performed By: #### L 100.0100, L500.4050 ####[facility] [address] [place], [address] Hemoglobin (Bld) [Mass/Vol] 12.6 g/dL Normal 12.0-15. 0 [facility] Comment on above: Performed By: #### L 100.0100, L500.4050 ####[facility] [address] [place], [address] IG% 0.900 Normal 0.0-0.9 [facility] Comment on above: Result Comment: IG% - Immature Granulocytes (promyelocytes, myelocytes andmetamyelocytes) > 1% indicates that a LEFT SHIFT is Present. Performed By: #### L 100.0100, L500.4050 ####[facility] [address] [place], [address] Lymphocytes/100 WBC (Bld) 19.5 % Normal 19-41 [facility] Comment on above: Performed By: #### L 100.0100, L500.4050 ####[facility] [address] [place], [address] MCH (RBC) [Entitic mass] 31.0 pg Normal 27.0-32.0 [facility] Comment on above: Performed By: #### L 100.0100, L500.4050 ####[facility] [address] [place], [address] MCHC (RBC) [Mass/Vol] 33.1 g/dL Normal 32-36 [facility] Comment on above: Performed By: #### L 100.0100, L500.4050 ####[facility] [address] [place], [address] MCV (RBC) [Entitic vol] 93.8 fL Normal 81-99 [facility] Comment on above: Performed By: #### L 100.0100, L500.4050 ####[facility] [address] [place], [address] Monocytes/100 WBC (Bld) 6.2 % Normal 0-10 [facility] Comment on above: Performed By: #### L 100.0100, L500.4050 ####[facility] [address] [place], [address] Neutrophils/100 WBC (Bld) 71.8 % High 47-70 [facility] Comment on above: Performed By: #### L 100.0100, L500.4050 ####[facility] [address] [place], [address] Nucleated RBC (Bld) [#/Vol] 0 10*3/uL Normal 0-5 [facility] Comment on above: Performed By: #### L 100.0100, L500.4050 ####[facility] [address] [place], [address] Platelet mean volume (Bld) [Entitic vol] 10.4 fL Normal 6.2-12.0 [facility] Comment on above: Performed By: #### L 100.0100, L500.4050 ####[facility] [address] [place], [address] Platelets (Bld) [#/Vol] 362 10*3/uL Normal 150-450 [facility] Comment on above: Performed By: #### L 100.0100, L500.4050 ####[facility] [address] [place], [address] RBC (Bld) [#/Vol] 4.06 10*6/uL Low 4.2-5.4 [facility] Comment on above: Performed By: #### L 100.0100, L500.4050 ####[facility] [address] [place], [address] RDW SD 50.0 fl High 35.1-43.9 [facility] Comment on above: Performed By: #### L 100.0100, L500.4050 ####[facility] [address] [place], [address] WBC (Bld) [#/Vol] 11.2 10*3/uL High 4.4-11.0 [facility] Comment on above: Performed By: #### L 100.0100, L500.4050 ####[facility] [address] [place], [address] Carbon dioxide, total [Moles /volume] in Central venous bloodOrdered By: Doris Yip on 10-23-2024 CO2 [Moles/Vol] 23.9 mmol/L 21.0-32.0 [facility] Chloride assayOrdered By: Ariana Yip on 10-23-2024 Chloride [Moles/Vol] 100 mmol/L 98-108 [facility] Comprehensive Metabolic Prof ilon 10-23-2024 Albumin [Mass/Vol] 4.3 g/dL Normal 3.4-4.8 [facility] Comment on above: Performed By: #### L 100.0100, L500.4050 ####[facility] [address] [place], [address] Albumin/Globulin [Mass ratio] 1.4 {ratio} Normal 0.9-2.4 [facility] Comment on above: Performed By: #### L 100.0100, L500.4050 ####[facility] [address] [place], [address] ALK PHOS 57 U/L Normal 35-104 [facility] Comment on above: Performed By: #### L 100.0100, L500.4050 ####[facility] [address] [place], [address] ALT [Catalytic activity/Vol] 20 U/L Normal <=34 [facility] Comment on above: Performed By: #### L 100.0100, L500.4050 ####[facility] [address] [place], [address] AST [Catalytic activity/Vol] 21 U/L Normal <=31 [facility] Comment on above: Performed By: #### L 100.0100, L500.4050 ####[facility] [address] [place], [address] Bilirubin [Mass/Vol] 0.27 mg/dL Normal 0.00-1.30 [facility] Comment on above: Performed By: #### L 100.0100, L500.4050 ####[facility] [address] [place], [address] BUN/CRE 21.9 RATIO High 10-20 [facility] Comment on above: Performed By: #### L 100.0100, L500.4050 ####[facility] [address] [place], [address] Calcium [Mass/Vol] 9.5 mg/dL Normal 7.6-11.0 [facility] Comment on above: Performed By: #### L 100.0100, L500.4050 ####[facility] [address] [place], [address] Chloride [Moles/Vol] 100 mmol/L Normal 98-108 [facility] Comment on above: Performed By: #### L 100.0100, L500.4050 ####[facility] [address] [place], [address] CO2 [Moles/Vol] 23.9 mmol/L Normal 21.0-32.0 [facility] Comment on above: Performed By: #### L 100.0100, L500.4050 ####[facility] [address] [place], [address] Creatinine [Mass/Vol] 0.84 mg/dL Normal 0.70-1.20 [facility] Comment on above: Performed By: #### L 100.0100, L500.4050 ####[facility] [address] [place], [address] GAP 15 Normal 5-15 [facility] Comment on above: Performed By: #### L 100.0100, L500.4050 ####[facility] [address] [place], [address] GFR/1.73 sq M.predicted among non-blacks MDRD (S/P/Bld) [Vol rate/Area] 76 mL/min/{1.73_m2} Normal >60 [facility] Comment on above: Result Comment: mL/m in/1.73m2 CKD-EPI Creatinine Equation (2020) Performed By: #### L 100.0100, L500.4050 ####[facility] [address] [place], [address] Globulin (S) [Mass/Vol] 3.2 g/dL Normal 2.2-4.2 [facility] Comment on above: Performed By: #### L 100.0100, L500.4050 ####[facility] [address] [place], [address] Glucose [Mass/Vol] 124 mg/dL High 70-99 [facility] Comment on above: Performed By: #### L 100.0100, L500.4050 ####[facility] [address] [place], [address] Potassium [Moles/Vol] 4.2 mmol/L Normal 3.3-5.1 [facility] Comment on above: Performed By: #### L 100.0100, L500.4050 ####[facility] [address] [place], [address] Sodium [Moles/Vol] 139 mmol/L Normal 133-145 [facility] Comment on above: Performed By: #### L 100.0100, L500.4050 ####[facility] [address] [place], [address] T PROT 7.4 g/dL Normal 5.9-8.4 [facility] Comment on above: Performed By: #### L 100.0100, L500.4050 ####[facility] [address] [place], [address] Urea nitrogen [Mass/Vol] 18 mg/dL Normal 4-19 [facility] Comment on above: Performed By: #### L 100.0100, L500.4050 ####[facility] [address] [place], [address] Eosinophil percentageOrdered By: Doris Yip on 10-23-2024 Eosinophils/100 WBC (Bld) 1.2 % 0-5 [facility] Erythrocyte distribution wid th (RBC) [Ratio]Ordered By: Doris Yip on 10-23-2024 Erythrocyte distribution width (RBC) [Entitic vol] 50.0 fL High 35.1-43.9 [facility] Erythrocyte distribution wid th ratioOrdered By: Doris Yip on 10-23-2024 Erythrocyte distribution width (RBC) [Ratio] 14.7 % High 11.6-14.6 [facility] Erythrocyte distribution wid th standard deviationOrdered By: Doris Yip on 10-23-2024 Erythrocyte distribution width (RBC) [Ratio] 50.0 fl High 35.1-43.9 [facility] GFR/1.73 sq M.predicted [place] g non-blacks MDRD (S/P/Bld) [Vol rate/Area]Ordered By: Doris Yip on 10-23-2024 Estimated GFR (MDRD) Non-Af Amer 76 >60 [facility] Comment on above: mL/min/1.73m2 CKD-EP I Creatinine Equation (2020) Glomerular filtration rate ( GFR) estimation/1.73 sq m using serum, plasma, or whole bOrdered By: Doris Yip on 10-23-2024 GFR/1.73 sq M.predicted among non-blacks MDRD (S/P/Bld) [Vol rate/Area] 76 mL/min/{1.73_m2} >60 [facility] Comment on above: mL/min/1.73m2 CKD-EP I Creatinine Equation (2020) Hematocrit Auto (Bld) [Volum e fraction]Ordered By: Doris Yip on 10-23-2024 Hematocrit (Bld) [Volume fraction] 38.1 % 37-47 [facility] Hemoglobin measurementOrdere d By: Doris Yip on 10-23-2024 Hemoglobin (Bld) [Mass/Vol] 12.6 g/dL 12.0-15. 0 [facility] Immature granulocytes/100 WB C Auto (Bld)Ordered By: Doris Yip on 10-23-2024 Immature granulocytes/100 WBC (Bld) 0.900 % 0.0-0.9 [facility] Comment on above: IG% - Immature Granu locytes (promyelocytes, myelocytes and metamyelocytes) > 1% indicates that a LEFT SHIFT is Present. Laboratory - Chemistry and C hemistry - challengeOrdered By: Doris Yip on 10-23-2024 AST [Catalytic activity/Vol] 21 U/L <32 [facility] Lymphocytes Auto (Unsp spec) [#/Vol]Ordered By: Doris Yip on 10-23-2024 Lymphocytes (Bld) [#/Vol] 2.17 10*3/uL 0.83-4.5 1 [facility] Lymphocytes/100 WBC Auto (Un sp spec)Ordered By: Doris Yip on 10-23-2024 Lymphocytes/100 WBC (Bld) 19.5 % 19-41 [facility] MCV (mean corpuscular volume ) determinationOrdered By: Doris Yip on 10-23-2024 MCV (RBC) [Entitic vol] 93.8 fL 81-99 [facility] Mean corpuscular hemoglobin (MCH) determinationOrdered By: Doris Yip on 10-23-2024 MCH (RBC) [Entitic mass] 31.0 pg 27.0-32.0 [facility] Mean corpuscular hemoglobin concentration (MCHC) determinationOrdered By: Doris Yip on 10-23-2024 MCHC (RBC) [Mass/Vol] 33.1 g/dL 32-36 [facility] Mean platelet volume determi nationOrdered By: Doris Yip on 10-23-2024 Platelet mean volume (Bld) [Entitic vol] 10.4 fL 6.2-12.0 [facility] Monocyte percentageOrdered B y: Doris Yip on 10-23-2024 Monocytes/100 WBC (Bld) 6.2 % 0-10 [facility] Neutrophil percentageOrdered By: Doris Yip on 10-23-2024 Neutrophils/100 WBC (Bld) 71.8 % High 47-70 [facility] Nucleated red blood cell per centageOrdered By: Doris Yip on 10-23-2024 Nucleated RBC/100 WBC (Bld) [Ratio] 0 % 0-5 [facility] Platelet countOrdered By: Ariana Yip on 10-23-2024 Platelets (Bld) [#/Vol] 362 10*3/uL 150-450 [facility] Potassium (Unsp spec) [Mass/ Vol]Ordered By: Doris Yip on 10-23-2024 Potassium [Moles/Vol] 4.2 mmol/L 3.3-5.1 [facility] Potassium measurement (mass/ volume)Ordered By: Doris Yip on 10-23-2024 Potassium (Unsp spec) [Mass/Vol] 4.2 mmol/L 3.3-5.1 [facility] RBC Auto (Bld) [#/Vol]Ordere d By: Doris Yip on 10-23-2024 RBC (Bld) [#/Vol] 4.06 10*6/uL Low 4.2-5.4 [facility] Serum creatinine measurement (mass/volume)Ordered By: Doris Yip on 10-23-2024 Creatinine [Mass/Vol] 0.84 mg/dL 0.70-1.20 [facility] Serum globulin measurementOr dered By: Doris Yip on 10-23-2024 Globulin (S) [Mass/Vol] 3.2 g/dL 2.2-4.2 [facility] Serum glucose measurement (m ass/volume)Ordered By: Doris Yip on 10-23-2024 Glucose [Mass/Vol] 124 mg/dL High 70-99 [facility] Serum or plasma alanine reyes otransferase (ALT) measurementOrdered By: Doris Yip on 10-23-2024 ALT [Catalytic activity/Vol] 20 U/L <35 [facility] Serum or plasma albumin jatin urement (mass/volume)Ordered By: oDris Yip on 10-23-2024 Albumin [Mass/Vol] 4.3 g/dL 3.4-4.8 [facility] Serum or plasma albumin/glob ulin mass ratioOrdered By: Doris Yip on 10-23-2024 Albumin/Globulin [Mass ratio] 1.4 {ratio} 0.9-2.4 [facility] Serum or plasma alkaline lnaa sphatase measurementOrdered By: Doris Yip on 10-23-2024 ALP [Catalytic activity/Vol] 57 U/L 35-104 [facility] Serum or plasma calcium jatin urement (mass/volume)Ordered By: Doris Yip on 10-23-2024 Calcium [Mass/Vol] 9.5 mg/dL 7.6-11.0 [facility] Serum or plasma urea nitroge n measurement (mass/volume)Ordered By: Doris Yip on 10-23-2024 Urea nitrogen [Mass/Vol] 18 mg/dL 4-19 [facility] Sodium levelOrdered By: Katherine Yip on 10-23-2024 Sodium [Moles/Vol] 139 mmol/L 133-145 [facility] Total proteinOrdered By: Liyah Yip on 10-23-2024 Protein [Mass/Vol] 7.4 g/dL 5.9-8.4 [facility] White blood cell (WBC) count Ordered By: Doris Ypi on 10-23-2024 WBC (Bld) [#/Vol] 11.2 10*3/uL High 4.4-11.0 [facility] Oncology Visit Reporton 09-20 Oncology Visit Report Normal [facility] Office Visit Reporton 2024 Office Visit Report Normal [facility] OVIDIO + Protein Elect, Serumon 10-01-2024 Albumin [Mass/Vol] 3.3 g/dL Normal 2.9-4.4 [facility] Comment on above: Order Comment: N Performed By: #### L 504.2610, L3130.0010, L3100.3425, L501.9520, L500.4050, L506.0400, L100.0100 ####[facility] [address] [place], [place], [phone] Albumin/Globulin [Mass ratio] 1.0 {ratio} Normal 0.7-1.7 [facility] Comment on above: Order Comment: N Performed By: #### L 504.2610, L3130.0010, L3100.3425, L501.9520, L500.4050, L506.0400, L100.0100 ####[facility] [address] [place], [place], [id number] VSDLI-4-NJCQ 0.3 g/dL Normal 0.0-0.4 [facility] Comment on above: Order Comment: N Performed By: #### L 504.2610, L3130.0010, L3100.3425, L501.9520, L500.4050, L506.0400, L100.0100 ####[facility] [address] [place], [address] RGPVH-4-LCUA 1.1 g/dL High 0.4-1.0 [facility] Comment on above: Order Comment: N Performed By: #### L 504.2610, L3130.0010, L3100.3425, L501.9520, L500.4050, L506.0400, L100.0100 ####[facility] [address] [place], [address] BETA GLOBULIN 1.2 g/dL Normal 0.7-1.3 [facility] Comment on above: Order Comment: N Performed By: #### L 504.2610, L3130.0010, L3100.3425, L501.9520, L500.4050, L506.0400, L100.0100 ####[facility] [address] [place], [address] GAMMA GLOBULIN 1.1 g/dL Normal 0.4-1.8 [facility] Comment on above: Order Comment: N Performed By: #### L 504.2610, L3130.0010, L3100.3425, L501.9520, L500.4050, L506.0400, L100.0100 ####[facility] [address] [place], [address] Globulin (S) [Mass/Vol] 3.6 g/dL Normal 2.2-3.9 [facility] Comment on above: Order Comment: N Performed By: #### L 504.2610, L3130.0010, L3100.3425, L501.9520, L500.4050, L506.0400, L100.0100 ####[facility] [address] [place], [address] OVIDIO RESULT,S Comment: Normal . [facility] Comment on above: Order Comment: N Result Comment: Pres ence of monoclonal protein is unclear at this time. Suggestrepeat in 3 to 6 months if clinically indicated. Performed By: #### L 504.2610, L3130.0010, L3100.3425, L501.9520, L500.4050, L506.0400, L100.0100 ####[facility] [address] [place], [address] IMMUNOGLOB A QN 158 mg/dL Normal 87-352 [facility] Comment on above: Order Comment: N Performed By: #### L 504.2610, L3130.0010, L3100.3425, L501.9520, L500.4050, L506.0400, L100.0100 ####[facility] [address] [place], [address] IMMUNOGLOB G QN 1030 mg/dL Normal 586-1602 [facility] Comment on above: Order Comment: N Performed By: #### L 504.2610, L3130.0010, L3100.3425, L501.9520, L500.4050, L506.0400, L100.0100 ####[facility] [address] [place], [address] IMMUNOGLOB M QN 95 mg/dL Normal 26-217 [facility] Comment on above: Order Comment: N Performed By: #### L 504.2610, L3130.0010, L3100.3425, L501.9520, L500.4050, L506.0400, L100.0100 ####[facility] [address] [place], [address] M-Thomas Comment: Normal Not Observed [facility] Comment on above: Order Comment: N Result Comment: SPE shows an asymmetrical gamma. Performed By: #### L 504.2610, L3130.0010, L3100.3425, L501.9520, L500.4050, L506.0400, L100.0100 ####[facility] [address] [place], [address] NOTE: Comment Normal . [facility] Comment on above: Order Comment: N Result Comment: Prot ein electrophoresis scan will follow via computer,mail, or crane ladle person delivery. Performed By: #### L 504.2610, L3130.0010, L3100.3425, L501.9520, L500.4050, L506.0400, L100.0100 ####[facility] [address] [place], [address] Protein [Mass/Vol] 6.9 g/dL Normal 6.0-8.5 [facility] Comment on above: Order Comment: N Performed By: #### L 504.2610, L3130.0010, L3100.3425, L501.9520, L500.4050, L506.0400, L100.0100 ####[facility] [address] [place], [address] Endeavor Lambda Light Chainson 10-01-2024 FR KAPPA LT CHN 33.6 mg/L Abnormal 3.3-19.4 [facility] Comment on above: Performed By: #### L 504.2610, L3130.0010, L3100.3425, L501.9520, L500.4050, L506.0400, L100.0100 ####[facility] [address] [place], [address] FR LAMBDA LT CH 27.4 mg/L Abnormal 5.7-26.3 [facility] Comment on above: Performed By: #### L 504.2610, L3130.0010, L3100.3425, L501.9520, L500.4050, L506.0400, L100.0100 ####[facility] [address] [place], [place], [address] KAPPA/LAMBDA % 1.23 Normal 0.26-1.65 [facility] Comment on above: Result Comment: Perf ormed at: - [facility] [address] [place], [place] [id number] Director: Herb Kincaid PhD, Phone: [phone] Performed By: #### L 504.2610, L3130.0010, L3100.3425, L501.9520, L500.4050, L506.0400, L100.0100 ####[facility] [address] [place], [place], [id number] Abdomen/Pelvis W IV Cont ONL Yon 09-29-2024 Abdomen/Pelvis W IV Cont ONLY Normal [facility] Absolute lymphocyte countOrd ered By: Jose Ramon Mckenzie on 09-29-2024 Lymphocytes Auto (Unsp spec) [#/Vol] 2.28 10*3/uL 0.83-4.51 [facility] Absolute neutrophil countOrd ered By: Jose Ramon Mckenzie on 09-29-2024 Neutrophils (Bld) [#/Vol] 6.2 10*3/uL 2.0-7.7 [facility] Addendum DocumentOrdered By: Jose Ramon Mckenzie on 09-29-2024 Serum Immunofixation Comments Comment . [facility] Comment on above: Protein electrophore sis scan will follow via computer,mail, or crane ladle person delivery. Albumin Elph [Mass/Vol]Order ed By: Jose Ramon Mckenzie on 09-29-2024 Albumin [Mass/Vol] 3.3 g/dL 2.9-4.4 [facility] Alpha 1 globulin Elph [Mass/ Vol]Ordered By: Jose Ramon cMkenzie on 09-29-2024 Narkd-3-Nuahcvnyv (OVIDIO) 0.3 g/dL 0.0-0.4 [facility] Grygj-7-Hhwcbuwnc (OVIDIO) 1.1 g/dL High 0.4-1.0 [facility] Anion gap in Serum or Plasma Ordered By: Jose Ramon Mckenzie on 09-29-2024 Anion gap [Moles/Vol] 13 mmol/L 5-15 [facility] Automated lymphocyte count a s percentage of total leukocytesOrdered By: Jose Ramon Grovekristian on 09-29-2024 Lymphocytes/100 WBC Auto (Unsp spec) 25.0 % [facility] BUN/creatinine ratioOrdered By: Jose Ramon Grovekristian on 09-29-2024 Urea nitrogen/Creatinine [Mass ratio] 16.0 mg/mg 10- [facility] Basophil percentageOrdered B y: Jose Ramon Mckenzie on 09-29-2024 Basophils/100 WBC (Bld) 0.5 % 0-1 [facility] Beta globulin Elph [Mass/Vol ]Ordered By: Jose Ramon Magaly on 09-29-2024 Beta-Globulins (OVIDIO) 1.2 g/dL 0.7-1.3 [facility] Bilirubin, totalOrdered By: Jose Ramon Grovekristian on 09-29-2024 Bilirubin [Mass/Vol] 0.32 mg/dL 0.00-1.30 [facility] CBC W/Diff, Automatedon 09-20 Absolute Lymph 2.28 X10 3/uL Normal 0.83-4.51 [facility] Comment on above: Performed By: #### L 504.2610, L3130.0010, L3100.3425, L501.9520, L500.4050, L506.0400, L100.0100 ####[facility] [address] [place], [address] Absolute Neut 6.2 X10 3/uL Normal 2.0-7.7 [facility] Comment on above: Performed By: #### L 504.2610, L3130.0010, L3100.3425, L501.9520, L500.4050, L506.0400, L100.0100 ####[facility] [address] [place], [address] Basophils/100 WBC (Bld) 0.5 % Normal 0-1 [facility] Comment on above: Performed By: #### L 504.2610, L3130.0010, L3100.3425, L501.9520, L500.4050, L506.0400, L100.0100 ####[facility] [address] [place], [address] Eosinophils/100 WBC (Bld) 1.4 % Normal 0-5 [facility] Comment on above: Performed By: #### L 504.2610, L3130.0010, L3100.3425, L501.9520, L500.4050, L506.0400, L100.0100 ####[facility] [address] [place], [address] Erythrocyte distribution width (RBC) [Ratio] 15.4 % High 11.6-14.6 [facility] Comment on above: Performed By: #### L 504.2610, L3130.0010, L3100.3425, L501.9520, L500.4050, L506.0400, L100.0100 ####[facility] [address] [place], [address] Hematocrit (Bld) [Volume fraction] 37.3 % Normal 37-47 [facility] Comment on above: Performed By: #### L 504.2610, L3130.0010, L3100.3425, L501.9520, L500.4050, L506.0400, L100.0100 ####[facility] [address] [place], [address] Hemoglobin (Bld) [Mass/Vol] 12.2 g/dL Normal 12.0-15. 0 [facility] Comment on above: Performed By: #### L 504.2610, L3130.0010, L3100.3425, L501.9520, L500.4050, L506.0400, L100.0100 ####[facility] [address] [place], [address] IG% 0.400 Normal 0.0-0.9 [facility] Comment on above: Result Comment: IG% - Immature Granulocytes (promyelocytes, myelocytes andmetamyelocytes) > 1% indicates that a LEFT SHIFT is Present. Performed By: #### L 504.2610, L3130.0010, L3100.3425, L501.9520, L500.4050, L506.0400, L100.0100 ####[facility] [address] [place], [address] Lymphocytes/100 WBC (Bld) 25.0 % Normal 19-41 [facility] Comment on above: Performed By: #### L 504.2610, L3130.0010, L3100.3425, L501.9520, L500.4050, L506.0400, L100.0100 ####[facility] [address] [place], [address] MCH (RBC) [Entitic mass] 31.0 pg Normal 27.0-32.0 [facility] Comment on above: Performed By: #### L 504.2610, L3130.0010, L3100.3425, L501.9520, L500.4050, L506.0400, L100.0100 ####[facility] [address] [place], [address] MCHC (RBC) [Mass/Vol] 32.7 g/dL Normal 32-36 [facility] Comment on above: Performed By: #### L 504.2610, L3130.0010, L3100.3425, L501.9520, L500.4050, L506.0400, L100.0100 ####[facility] [address] [place], [address] MCV (RBC) [Entitic vol] 94.7 fL Normal 81-99 [facility] Comment on above: Performed By: #### L 504.2610, L3130.0010, L3100.3425, L501.9520, L500.4050, L506.0400, L100.0100 ####[facility] [address] [place], [address] Monocytes/100 WBC (Bld) 4.5 % Normal 0-10 [facility] Comment on above: Performed By: #### L 504.2610, L3130.0010, L3100.3425, L501.9520, L500.4050, L506.0400, L100.0100 ####[facility] [address] [place], [address] Neutrophils/100 WBC (Bld) 68.2 % Normal 47-70 [facility] Comment on above: Performed By: #### L 504.2610, L3130.0010, L3100.3425, L501.9520, L500.4050, L506.0400, L100.0100 ####[facility] [address] [place], [address] Nucleated RBC (Bld) [#/Vol] 0 10*3/uL Normal 0-5 [facility] Comment on above: Performed By: #### L 504.2610, L3130.0010, L3100.3425, L501.9520, L500.4050, L506.0400, L100.0100 ####[facility] [address] [place], [address] Platelet mean volume (Bld) [Entitic vol] 9.4 fL Normal 6.2-12.0 [facility] Comment on above: Performed By: #### L 504.2610, L3130.0010, L3100.3425, L501.9520, L500.4050, L506.0400, L100.0100 ####[facility] [address] [place], [address] Platelets (Bld) [#/Vol] 335 10*3/uL Normal 150-450 [facility] Comment on above: Performed By: #### L 504.2610, L3130.0010, L3100.3425, L501.9520, L500.4050, L506.0400, L100.0100 ####[facility] [address] [place], [address] RBC (Bld) [#/Vol] 3.94 10*6/uL Low 4.2-5.4 [facility] Comment on above: Performed By: #### L 504.2610, L3130.0010, L3100.3425, L501.9520, L500.4050, L506.0400, L100.0100 ####[facility] [address] [place], [address] RDW SD 53.1 fl High 35.1-43.9 [facility] Comment on above: Performed By: #### L 504.2610, L3130.0010, L3100.3425, L501.9520, L500.4050, L506.0400, L100.0100 ####[facility] [address] [place], [address] WBC (Bld) [#/Vol] 9.1 10*3/uL Normal 4.4-11.0 [facility] Comment on above: Performed By: #### L 504.2610, L3130.0010, L3100.3425, L501.9520, L500.4050, L506.0400, L100.0100 ####[facility] [address] [place], [address] Carbon dioxide, total [Moles /volume] in Central venous bloodOrdered By: Jose Ramon Mckenzie on 09-29-2024 CO2 [Moles/Vol] 26.5 mmol/L 21.0-32.0 [facility] Chloride assayOrdered By: Lilly Mckenzie on 09-29-2024 Chloride [Moles/Vol] 100 mmol/L 98-108 [facility] Comprehensive Metabolic Prof ilon 09-29-2024 Albumin [Mass/Vol] 4.2 g/dL Normal 3.4-4.8 [facility] Comment on above: Performed By: #### L 504.2610, L3130.0010, L3100.3425, L501.9520, L500.4050, L506.0400, L100.0100 ####[facility] [id number] [place], [address] Albumin/Globulin [Mass ratio] 1.4 {ratio} Normal 0.9-2.4 [facility] Comment on above: Performed By: #### L 504.2610, L3130.0010, L3100.3425, L501.9520, L500.4050, L506.0400, L100.0100 ####[facility] [id number] [place], [address] ALK PHOS 65 U/L Normal 35-104 [facility] Comment on above: Performed By: #### L 504.2610, L3130.0010, L3100.3425, L501.9520, L500.4050, L506.0400, L100.0100 ####[facility] [id number] [place], [address] ALT [Catalytic activity/Vol] 22 U/L Normal <=34 [facility] Comment on above: Performed By: #### L 504.2610, L3130.0010, L3100.3425, L501.9520, L500.4050, L506.0400, L100.0100 ####[facility] [address] [place], [address] AST [Catalytic activity/Vol] 22 U/L Normal <=31 [facility] Comment on above: Performed By: #### L 504.2610, L3130.0010, L3100.3425, L501.9520, L500.4050, L506.0400, L100.0100 ####[facility] [address] [place], [address] Bilirubin [Mass/Vol] 0.32 mg/dL Normal 0.00-1.30 [facility] Comment on above: Performed By: #### L 504.2610, L3130.0010, L3100.3425, L501.9520, L500.4050, L506.0400, L100.0100 ####[facility] [address] [place], [address] BUN/CRE 16.0 RATIO Normal 10-20 [facility] Comment on above: Performed By: #### L 504.2610, L3130.0010, L3100.3425, L501.9520, L500.4050, L506.0400, L100.0100 ####[facility] [address] [place], [address] Calcium [Mass/Vol] 9.5 mg/dL Normal 7.6-11.0 [facility] Comment on above: Performed By: #### L 504.2610, L3130.0010, L3100.3425, L501.9520, L500.4050, L506.0400, L100.0100 ####[facility] [address] [place], [address] Chloride [Moles/Vol] 100 mmol/L Normal 98-108 [facility] Comment on above: Performed By: #### L 504.2610, L3130.0010, L3100.3425, L501.9520, L500.4050, L506.0400, L100.0100 ####[facility] [address] [place], [address] CO2 [Moles/Vol] 26.5 mmol/L Normal 21.0-32.0 [facility] Comment on above: Performed By: #### L 504.2610, L3130.0010, L3100.3425, L501.9520, L500.4050, L506.0400, L100.0100 ####[facility] [address] [place], [address] Creatinine [Mass/Vol] 0.93 mg/dL Normal 0.70-1.20 [facility] Comment on above: Performed By: #### L 504.2610, L3130.0010, L3100.3425, L501.9520, L500.4050, L506.0400, L100.0100 ####[facility] [address] [place], [address] ECRCL 72.90 ml/min Normal 50-250 [facility] Comment on above: Performed By: #### L 504.2610, L3130.0010, L3100.3425, L501.9520, L500.4050, L506.0400, L100.0100 ####[facility] [address] [place], [address] GAP 13 Normal 5-15 [facility] Comment on above: Performed By: #### L 504.2610, L3130.0010, L3100.3425, L501.9520, L500.4050, L506.0400, L100.0100 ####[facility] [address] [place], [address] GFR/1.73 sq M.predicted among non-blacks MDRD (S/P/Bld) [Vol rate/Area] 68 mL/min/{1.73_m2} Normal >60 [facility] Comment on above: Result Comment: mL/m in/1.73m2 CKD-EPI Creatinine Equation (2020) Performed By: #### L 504.2610, L3130.0010, L3100.3425, L501.9520, L500.4050, L506.0400, L100.0100 ####[facility] [address] [place], [address] Globulin (S) [Mass/Vol] 3.0 g/dL Normal 2.2-4.2 [facility] Comment on above: Performed By: #### L 504.2610, L3130.0010, L3100.3425, L501.9520, L500.4050, L506.0400, L100.0100 ####[facility] [address] [place], [address] Glucose [Mass/Vol] 138 mg/dL High 70-99 [facility] Comment on above: Performed By: #### L 504.2610, L3130.0010, L3100.3425, L501.9520, L500.4050, L506.0400, L100.0100 ####[facility] [address] [place], [address] Potassium [Moles/Vol] 4.0 mmol/L Normal 3.3-5.1 [facility] Comment on above: Performed By: #### L 504.2610, L3130.0010, L3100.3425, L501.9520, L500.4050, L506.0400, L100.0100 ####[facility] [address] [place], [address] Sodium [Moles/Vol] 139 mmol/L Normal 133-145 [facility] Comment on above: Performed By: #### L 504.2610, L3130.0010, L3100.3425, L501.9520, L500.4050, L506.0400, L100.0100 ####[facility] [address] [place], [address] T PROT 7.2 g/dL Normal 5.9-8.4 [facility] Comment on above: Performed By: #### L 504.2610, L3130.0010, L3100.3425, L501.9520, L500.4050, L506.0400, L100.0100 ####[facility] [address] [place], [address] Urea nitrogen [Mass/Vol] 15 mg/dL Normal 4-19 [facility] Comment on above: Performed By: #### L 504.2610, L3130.0010, L3100.3425, L501.9520, L500.4050, L506.0400, L100.0100 ####[facility] [address] [place], [address] Eosinophil percentageOrdered By: Jose Ramon Mckenzie on 09-29-2024 Eosinophils/100 WBC (Bld) 1.4 % 0-5 [facility] Erythrocyte distribution wid th ratioOrdered By: Jose Ramon Mckenzie on 09-29-2024 Erythrocyte distribution width (RBC) [Ratio] 15.4 % High 11.6-14.6 [facility] Erythrocyte distribution wid th standard deviationOrdered By: Jose Ramon Mckenzie on 09-29-2024 Erythrocyte distribution width (RBC) [Entitic vol] 53.1 fL High 35.1-43.9 [facility] Erythrocyte distribution width (RBC) [Ratio] 53.1 fl High 35.1-43.9 [facility] Estimation of creatinine lillian aranceOrdered By: Jose Ramon Mckenzie on 09-29-2024 Estimated Creatinine Clearance Calc 72.90 ml/min 50-250 [facility] GFR/1.73 sq M.predicted valentina g non-blacks MDRD (S/P/Bld) [Vol rate/Area]Ordered By: Jose Ramon Mckenzie on 09-29-2024 Estimated GFR (MDRD) Non-Af Amer 68 >60 [facility] Comment on above: mL/min/1.73m2 CKD-EP I Creatinine Equation (2020) Gamma globulin Elph [Mass/Vo l]Ordered By: Jose Ramon Mckenzie on 09-29-2024 Gamma Globulins (OVIDIO) 1.1 g/dL 0.4-1.8 [facility] Glomerular filtration rate ( GFR) estimation/1.73 sq m using serum, plasma, or whole bOrdered By: Jose Ramon Mckenzie on 09-29-2024 GFR/1.73 sq M.predicted among non-blacks MDRD (S/P/Bld) [Vol rate/Area] 68 mL/min/{1.73_m2} >60 [facility] Comment on above: mL/min/1.73m2 CKD-EP I Creatinine Equation (2020) Hematocrit Auto (Bld) [Volum e fraction]Ordered By: Jose Ramon Mckenzie on 09-29-2024 Hematocrit (Bld) [Volume fraction] 37.3 % 37-47 [facility] Hemoglobin measurementOrdere d By: Jose Ramon Mckenzie on 09-29-2024 Hemoglobin (Bld) [Mass/Vol] 12.2 g/dL 12.0-15. 0 [facility] IgA [Mass/Vol]Ordered By: Lilly Mckenzie on 09-29-2024 Immunoglobulin A 158 mg/dL 87-352 [facility] IgG [Mass/Vol]Ordered By: Lilly Mckenzie on 09-29-2024 Immunoglobulin G 1030 mg/dL [phone] [facility] Immature granulocytes/100 WB C Auto (Bld)Ordered By: Jose Ramon Mckenzie on 09-29-2024 Immature granulocytes/100 WBC (Bld) 0.400 % 0.0-0.9 [facility] Comment on above: IG% - Immature Granu locytes (promyelocytes, myelocytes and metamyelocytes) > 1% indicates that a LEFT SHIFT is Present. Immunoglobulin M measurement Ordered By: Jose Ramon Mckenzie on 09-29-2024 Immunoglobulin M 95 mg/dL 26-217 [facility] Immunoglobulin light chains. kappa [Mass/Vol]Ordered By: Jose Ramon Mckenzie on 09-29-2024 Free Endeavor Light Chains, Quant 33.6 mg/L High 3.3-19.4 [facility] Immunoglobulin light chains. kappa/Immunoglobulin light chains.lambda (S) [Mass ratio]Ordered By: Jose Ramon Mckenzie on 09-29-2024 Free Endeavor/Lambda Light Chain Ratio 1.23 0.26-1.65 [facility] Comment on above: Performed at: [address] [id number] Director: Herb Kincaid PhD, Phone: [phone] Interpretation IEP [Interp]O rdered By: Jose Ramon Mckenzie on 09-29-2024 Immunofixation Screen Comment: . [facility] Comment on above: Presence of monoclon al protein is unclear at this time. Suggestrepeat in 3 to 6 months if clinically indicated. Interpretation of serum or p lasma protein pattern by immunofixation (narrative resultOrdered By: Jose Ramon Mckenzie on 09-29-2024 Protein Fractions Immunofixation Arnav [Interp] Comment: g/dL Not Observed [facility] Comment on above: SPE shows an asymmet rical gamma. LDHon 09-29-2024 LDH 167 U/L Normal 84-246 [facility] Comment on above: Order Comment: 1 Performed By: #### L 504.2610, L3130.0010, L3100.3425, L501.9520, L500.4050, L506.0400, L100.0100 ####[facility] [address] [place], [address] Laboratory - Chemistry and C hemistry - challengeOrdered By: Jose Ramon Mckenzie on 09-29-2024 AST [Catalytic activity/Vol] 22 U/L <32 [facility] Lactate dehydrogenase (LDH) measurementOrdered By: Jose Ramon Mckenzie on 09-29-2024 LDH [Catalytic activity/Vol] 167 U/L 84-246 [facility] Lambda free light chain jatin urementOrdered By: Jose Ramon Mckenzie on 09-29-2024 Free Lambda Light Chains, Quant 27.4 mg/L High 5.7-26.3 [facility] Lymphocytes Auto (Unsp spec) [#/Vol]Ordered By: Jose Ramon Mckenzie on 09-29-2024 Lymphocytes (Bld) [#/Vol] 2.28 10*3/uL 0.83-4.5 1 [facility] Lymphocytes/100 WBC Auto (Un sp spec)Ordered By: Jose Ramon Mckenzie on 09-29-2024 Lymphocytes/100 WBC (Bld) 25.0 % 19-41 [facility] MCV (mean corpuscular volume ) determinationOrdered By: Jose Ramon Mckenzie on 09-29-2024 MCV (RBC) [Entitic vol] 94.7 fL 81-99 [facility] Mean corpuscular hemoglobin (MCH) determinationOrdered By: Jose Ramon Mckenzie on 09-29-2024 MCH (RBC) [Entitic mass] 31.0 pg 27.0-32.0 [facility] Mean corpuscular hemoglobin concentration (MCHC) determinationOrdered By: Jose Ramon Mckenzie on 09-29-2024 MCHC (RBC) [Mass/Vol] 32.7 g/dL 32-36 [facility] Mean platelet volume determi nationOrdered By: Jose Ramon Mckenzie on 09-29-2024 Platelet mean volume (Bld) [Entitic vol] 9.4 fL 6.2-12.0 [facility] Monocyte percentageOrdered B y: Jose Ramon Mckenzie on 09-29-2024 Monocytes/100 WBC (Bld) 4.5 % 0-10 [facility] Neutrophil percentageOrdered By: Jose Ramon Mckenzie on 09-29-2024 Neutrophils/100 WBC (Bld) 68.2 % 47-70 [facility] No Panel InformationOrdered By: Jose Ramon Mckenzie on 09-29-2024 Addendum Document Comment . [facility] Comment on above: Protein electrophore sis scan will follow via computer,mail, or crane ladle person delivery. Nucleated red blood cell per centageOrdered By: Jose Ramon Mckenzie on 09-29-2024 Nucleated RBC/100 WBC (Bld) [Ratio] 0 % 0-5 [facility] Platelet countOrdered By: Lilly Mckenzie on 09-29-2024 Platelets (Bld) [#/Vol] 335 10*3/uL 150-450 [facility] Potassium (Unsp spec) [Mass/ Vol]Ordered By: Jose Ramon Mckenzie on 09-29-2024 Potassium [Moles/Vol] 4.0 mmol/L 3.3-5.1 [facility] Potassium measurement (mass/ volume)Ordered By: Jose Ramon Mckenzie on 09-29-2024 Potassium (Unsp spec) [Mass/Vol] 4.0 mmol/L 3.3-5.1 [facility] Protein Fractions Immunofixa tion Arnav [Interp]Ordered By: Jose Ramon Mckenzie on 09-29-2024 M-Thomas (OVIDIO) Comment: g/dL Not Observed [facility] Comment on above: SPE shows an asymmet rical gamma. RBC Auto (Bld) [#/Vol]Ordere d By: Jose Ramon Mckenzie on 09-29-2024 RBC (Bld) [#/Vol] 3.94 10*6/uL Low 4.2-5.4 [facility] Serum albumin/globulin ratio Ordered By: Jose Ramon Mckenzie on 09-29-2024 Albumin/Globulin (OVIDIO) 1.0 0.7-1.7 [facility] Serum creatinine measurement (mass/volume)Ordered By: Jose Ramon Mckenzie on 09-29-2024 Creatinine [Mass/Vol] 0.93 mg/dL 0.70-1.20 [facility] Serum globulin measurement ( mass/volume)Ordered By: Jose Ramon Mckenzie on 09-29-2024 Globulin (S) [Mass/Vol] 3.6 g/dL 2.2-3.9 [facility] Serum glucose measurement (m ass/volume)Ordered By: Jose Ramon Mckenzie on 09-29-2024 Glucose [Mass/Vol] 138 mg/dL High 70-99 [facility] Serum immunoglobulin kappa l ight chains/immunoglobulin lambda light chains mass ratioOrdered By: Jose Ramon Mckenzie on 09-29-2024 Immunoglobulin light chains.kappa/Immunoglobulin light chains.lambda (S) [Mass ratio] 1.23 0.26-1.65 [facility] Comment on above: Performed at: [place] [id number] Director: Herb Kincaid PhD, Phone: [phone] Serum or plasma IgA measurem ent (mass/volume)Ordered By: Jose Ramon Mckenzie on 09-29-2024 IgA [Mass/Vol] 158 mg/dL 87-352 [facility] Serum or plasma IgG measurem ent (mass/volume)Ordered By: Jose Ramon Mckenzie on 09-29-2024 IgG [Mass/Vol] 1030 mg/dL [phone] [facility] Serum or plasma alanine reyes otransferase (ALT) measurementOrdered By: Jose Ramon Mckenzie on 09-29-2024 ALT [Catalytic activity/Vol] 22 U/L <35 [facility] Serum or plasma albumin jatin urement (mass/volume)Ordered By: Jose Ramon Mckenzie on 09-29-2024 Albumin [Mass/Vol] 4.2 g/dL 3.4-4.8 [facility] Serum or plasma albumin/glob ulin mass ratioOrdered By: Jose Ramon Mckenzie on 09-29-2024 Albumin/Globulin [Mass ratio] 1.4 {ratio} 0.9-2.4 [facility] Serum or plasma alkaline lana sphatase measurementOrdered By: Jose Ramon Mckenzie on 09-29-2024 ALP [Catalytic activity/Vol] 65 U/L 35-104 [facility] Serum or plasma alpha 1 glob ulin measurement by electrophoresis (mass/volume)Ordered By: Jose Ramon Mckenzie on 09-29-2024 Alpha 1 globulin Elph [Mass/Vol] 0.3 g/dL 0.0-0.4 [facility] Alpha 1 globulin Elph [Mass/Vol] 1.1 g/dL High 0.4-1.0 [facility] Serum or plasma beta globuli n measurement by electrophoresis (mass/volume)Ordered By: Jose Ramon Mckenzie on 09-29-2024 Beta globulin Elph [Mass/Vol] 1.2 g/dL 0.7-1.3 [facility] Serum or plasma calcium jatin urement (mass/volume)Ordered By: Jose Ramon Mckenzie on 09-29-2024 Calcium [Mass/Vol] 9.5 mg/dL 7.6-11.0 [facility] Serum or plasma gamma globul in measurement by electrophoresis (mass/volume)Ordered By: Jose Ramon Mckenzie on 09-29-2024 Gamma globulin Elph [Mass/Vol] 1.1 g/dL 0.4-1.8 [facility] Serum or plasma immunoelectr ophoresis interpretation (nominal result)Ordered By: Jose Ramon Mckenzie on 09-29-2024 Interpretation IEP [Interp] Comment: . [facility] Comment on above: Presence of monoclon al protein is unclear at this time. Suggestrepeat in 3 to 6 months if clinically indicated. Serum or plasma immunoglobul in kappa light chains measurement (mass/volume)Ordered By: Jose Ramon Mckenzie on 09-29-2024 Immunoglobulin light chains.kappa [Mass/Vol] 33.6 mg/L High 3.3-19.4 [facility] Serum or plasma protein jatin urement (mass/volume)Ordered By: Jose Ramon Mckenzie on 09-29-2024 Protein [Mass/Vol] 6.9 g/dL 6.0-8.5 [facility] Serum or plasma urea nitroge n measurement (mass/volume)Ordered By: Jose Ramon Mckenzie on 09-29-2024 Urea nitrogen [Mass/Vol] 15 mg/dL 4-19 [facility] Sodium levelOrdered By: Pancho anyi Mckenzie on 09-29-2024 Sodium [Moles/Vol] 139 mmol/L 133-145 [facility] T4 Free Directon 09-29-2024 T4 FREE DIRECT 1.00 ng/dL Normal 0.76-1.46 [facility] Comment on above: Performed By: #### L 504.2610, L3130.0010, L3100.3425, L501.9520, L500.4050, L506.0400, L100.0100 ####[facility] [address] [place], [address] T4 freeOrdered By: Jose Ramon allan on 09-29-2024 Free T4 [Mass/Vol] 1.00 ng/dL 0.76-1.46 [facility] TSH DL <= 0.005 mIU/L QnOrde red By: Jose Ramon Mckenzie on 09-29-2024 Thyroid Stimulating Hormone (TSH) 0.814 uIU/mL 0.300-4.200 [facility] TSH Qn 0.814 uIU/mL 0.300-4.200 [facility] Thyroid Stim Hormone (TSH)on 09-29-2024 TSH 0.814 uIU/mL Normal 0.300-4.200 [facility] Comment on above: Performed By: #### L 504.2610, L3130.0010, L3100.3425, L501.9520, L500.4050, L506.0400, L100.0100 ####[facility] [address] [place], [address] Total proteinOrdered By: Eugene Mckenzie on 09-29-2024 Protein [Mass/Vol] 7.2 g/dL 5.9-8.4 [facility] White blood cell (WBC) count Ordered By: Jose Ramon Mckenzie on 09-29-2024 WBC (Bld) [#/Vol] 9.1 10*3/uL 4.4-11.0 [facility] Office Visit Reporton 2024 Office Visit Report Normal [facility] Absolute lymphocyte countOrd ered By: Doris Yip on 08-28-2024 Lymphocytes Auto (Unsp spec) [#/Vol] 2.19 10*3/uL 0.83-4.51 [facility] Absolute neutrophil countOrd ered By: [facility] Theodora on 08-28-2024 Neutrophils (Bld) [#/Vol] 5.8 10*3/uL 2.0-7.7 [facility] Albumin to globulin ratioOrd ered By: [facility] Theodora on 08-28-2024 Albumin/Globulin [Mass ratio] 0.8 {ratio} Low 0.9-2.4 [facility] Automated lymphocyte count a s percentage of total leukocytesOrdered By: Doris Yip on 08-28-2024 Lymphocytes/100 WBC Auto (Unsp spec) 25.2 % 19-41 [facility] Basophil percentageOrdered B y: Doris Yip on 08-28-2024 Basophils/100 WBC (Bld) 0.6 % 0-1 [facility] Bilirubin, totalOrdered By: Dorisasher Yip on 08-28-2024 Bilirubin [Mass/Vol] 0.30 mg/dL 0.20-1.00 [facility] Comment on above: For patients on eltr ombopag therapy, use of Dimension [place] TBIL is not recommended. Blood urea nitrogen (BUN)/cr eatinine ratioOrdered By: [facility] Theodora on 08-28-2024 Urea nitrogen/Creatinine [Mass ratio] 13.6 mg/mg 10-20 [facility] CBC W/Diff, Automatedon Absolute Lymph 2.19 X10 3/uL Normal 0.83-4.51 [facility] Comment on above: Performed By: #### L 500.4050, L100.0100 ####[facility] [address] [place], [place], [address] Absolute Neut 5.8 X10 3/uL Normal 2.0-7.7 [facility] Comment on above: Performed By: #### L 500.4050, L100.0100 ####[facility] [address] [place], [address] Basophils/100 WBC (Bld) 0.6 % Normal 0-1 [facility] Comment on above: Performed By: #### L 500.4050, L100.0100 ####[facility] [address] [place], [address] Eosinophils/100 WBC (Bld) 1.7 % Normal 0-5 [facility] Comment on above: Performed By: #### L 500.4050, L100.0100 ####[facility] [address] [place], [address] Erythrocyte distribution width (RBC) [Ratio] 15.1 % High 11.6-14.6 [facility] Comment on above: Performed By: #### L 500.4050, L100.0100 ####[facility] [address] [place], [address] Hematocrit (Bld) [Volume fraction] 36.8 % Low 37-47 [facility] Comment on above: Performed By: #### L 500.4050, L100.0100 ####[facility] [address] [place], [address] Hemoglobin (Bld) [Mass/Vol] 11.9 g/dL Low 12.0-15. 0 [facility] Comment on above: Performed By: #### L 500.4050, L100.0100 ####[facility] [address] [place], [address] IG% 0.600 Normal 0.0-0.9 [facility] Comment on above: Result Comment: IG% - Immature Granulocytes (promyelocytes, myelocytes andmetamyelocytes) > 1% indicates that a LEFT SHIFT is Present. Performed By: #### L 500.4050, L100.0100 ####[facility] [address] [place], [address] Lymphocytes/100 WBC (Bld) 25.2 % Normal 19-41 [facility] Comment on above: Performed By: #### L 500.4050, L100.0100 ####[facility] [address] [place], [address] MCH (RBC) [Entitic mass] 31.1 pg Normal 27.0-32.0 [facility] Comment on above: Performed By: #### L 500.4050, L100.0100 ####[facility] [address] [place], [address] MCHC (RBC) [Mass/Vol] 32.3 g/dL Normal 32-36 [facility] Comment on above: Performed By: #### L 500.4050, L100.0100 ####[facility] [address] [place], [address] MCV (RBC) [Entitic vol] 96.1 fL Normal 81-99 [facility] Comment on above: Performed By: #### L 500.4050, L100.0100 ####[facility] [address] [place], [address] Monocytes/100 WBC (Bld) 4.6 % Normal 0-10 [facility] Comment on above: Performed By: #### L 500.4050, L100.0100 ####[facility] [address] [place], [address] Neutrophils/100 WBC (Bld) 67.3 % Normal 47-70 [facility] Comment on above: Performed By: #### L 500.4050, L100.0100 ####[facility] [address] [place], [address] Nucleated RBC (Bld) [#/Vol] 0 10*3/uL Normal 0-5 [facility] Comment on above: Performed By: #### L 500.4050, L100.0100 ####[facility] [address] [place], [address] Platelet mean volume (Bld) [Entitic vol] 10.3 fL Normal 6.2-12.0 [facility] Comment on above: Performed By: #### L 500.4050, L100.0100 ####[facility] [address] [place], [address] Platelets (Bld) [#/Vol] 329 10*3/uL Normal 150-450 [facility] Comment on above: Performed By: #### L 500.4050, L100.0100 ####[facility] [address] [place], [address] RBC (Bld) [#/Vol] 3.83 10*6/uL Low 4.2-5.4 [facility] Comment on above: Performed By: #### L 500.4050, L100.0100 ####[facility] [address] [place], [address] RDW SD 51.8 fl High 35.1-43.9 [facility] Comment on above: Performed By: #### L 500.4050, L100.0100 ####[facility] [address] [place], [address] WBC (Bld) [#/Vol] 8.7 10*3/uL Normal 4.4-11.0 [facility] Comment on above: Performed By: #### L 500.4050, L100.0100 ####[facility] [address] [place], [address] Carbon dioxide measurementOr dered By: Doris Yip on 08-28-2024 CO2 [Moles/Vol] 26.0 mmol/L 21.0-32.0 [facility] Chloride measurementOrdered By: Doris Yip on 08-28-2024 Chloride [Moles/Vol] 102 mmol/L 98-107 [facility] Comprehensive Metabolic Prof ilon 08-28-2024 Albumin [Mass/Vol] 3.4 g/dL Normal 3.2-5.0 [facility] Comment on above: Performed By: #### L 500.4050, L100.0100 ####[facility] [address] [place], [address] Albumin/Globulin [Mass ratio] 0.8 {ratio} Low 0.9-2.4 [facility] Comment on above: Performed By: #### L 500.4050, L100.0100 ####[facility] [address] [place], [address] ALK P 62 U/L Normal 45-117 [facility] Comment on above: Performed By: #### L 500.4050, L100.0100 ####[facility] [address] [place], [address] ALT [Catalytic activity/Vol] 30 U/L Normal 13-56 [facility] Comment on above: Performed By: #### L 500.4050, L100.0100 ####[facility] [address] [place], [address] AST [Catalytic activity/Vol] 18 U/L Normal 15-37 [facility] [place] Comment on above: Performed By: #### L 500.4050, L100.0100 ####[facility] [place] [address] [place], [address] Bilirubin [Mass/Vol] 0.30 mg/dL Normal 0.20-1.00 [place] [facility] Comment on above: Result Comment: For patients on eltrombopag therapy, use of Dimension [place] TBIL is not recommended. Performed By: #### L 500.4050, L100.0100 ####[facility] [place] [address] [place], [address] BUN/CRE 13.6 RATIO Normal 10-20 [facility] [place] Comment on above: Performed By: #### L 500.4050, L100.0100 ####[facility] [place] [address] [place], [address] CA,Total 9.1 mg/dL Normal 8.5-10.1 [facility] [place] Comment on above: Performed By: #### L 500.4050, L100.0100 ####[facility] [place] [address] [place], [address] Chloride [Moles/Vol] 102 mmol/L Normal 98-107 [facility] Comment on above: Performed By: #### L 500.4050, L100.0100 ####[facility] [place] [address] [place], [address] CO2 [Moles/Vol] 26.0 mmol/L Normal 21.0-32.0 [facility] [place] Comment on above: Performed By: #### L 500.4050, L100.0100 ####[facility] [place] [address] [place], [address] Creatinine [Mass/Vol] 1.03 mg/dL High 0.55-1.02 [facility] Comment on above: Result Comment: The validity of the calculated GFR GFRAA in patients over70 years has not been determined. Clinical correlation isessential. Performed By: #### L 500.4050, L100.0100 ####[facility] [place] [address] [place], [address] EST GFR - AA 69 mL/min Normal >60 [facility] [place] Comment on above: Result Comment: Afri can [place] GFR Calc Performed By: #### L 500.4050, L100.0100 ####[facility] [place] [address] [place], [address] GAP 8 Normal 5-15 [facility] [place] Comment on above: Performed By: #### L 500.4050, L100.0100 ####[facility] [place] [address] [place], [address] GFR/1.73 sq M.predicted among non-blacks MDRD (S/P/Bld) [Vol rate/Area] 57 mL/min/{1.73_m2} Low >60 [facility] Comment on above: Result Comment: Non- GFR Calc Performed By: #### L 500.4050, L100.0100 ####[facility] [place] [address] [place], [address] Globulin (S) [Mass/Vol] 4.0 g/dL Normal 2.2-4.2 [facility] Comment on above: Performed By: #### L 500.4050, L100.0100 ####[facility] [place] [address] [place], [address] Glucose [Mass/Vol] 180 mg/dL High 74-106 [facility] Comment on above: Result Comment: Fast ing Glucose result greater than or equal to 126 mg/dLsuggests DIABETES MELLITUS per A.D.A. criteria. Performed By: #### L 500.4050, L100.0100 ####[facility] [place] [address] [place], [address] Potassium [Moles/Vol] 4.2 mmol/L Normal 3.5-5.1 [facility] Comment on above: Performed By: #### L 500.4050, L100.0100 ####[facility] [place] [address] [place], [address] Sodium [Moles/Vol] 136 mmol/L Normal 136-145 [facility] Comment on above: Performed By: #### L 500.4050, L100.0100 ####[facility] [place] [address] [place], [address] T PROT 7.4 g/dL Normal 6.4-8.2 [facility] [place] Comment on above: Performed By: #### L 500.4050, L100.0100 ####[facility] [place] [address] [place], [place], [address] Urea nitrogen [Mass/Vol] 14 mg/dL Normal 7-18 [facility] [place] Comment on above: Performed By: #### L 500.4050, L100.0100 ####[facility] [place] [address] [place], [address] Eosinophil percentageOrdered By: Doris Yip on 08-28-2024 Eosinophils/100 WBC (Bld) 1.7 % 0-5 [facility] [place] Erythrocyte distribution wid th ratioOrdered By: Doris Yip on 08-28-2024 Erythrocyte distribution width (RBC) [Ratio] 15.1 % High 11.6-14.6 [facility] [place] Erythrocyte distribution wid th standard deviationOrdered By: Doris Yip on 08-28-2024 Erythrocyte distribution width (RBC) [Entitic vol] 51.8 fL High 35.1-43.9 [facility] Erythrocyte distribution width (RBC) [Ratio] 51.8 fl High 35.1-43.9 [facility] [place] Estimated glomerular filtrat ion rate (GFR) AmericanOrdered By: Doris Yip on 08-28-2024 Estimated GFR (MDRD) Amer 69 mL/min >60 [facility] [place] Comment on above: GFR Calc Glomerular filtration rate ( GFR) estimationOrdered By: Doris Yip on 08-28-2024 Estimated GFR (MDRD) Non-Af Amer 57 mL/min Low >60 [facility] [place] Comment on above: Non- GFR Calc GFR/1.73 sq M.predicted among non-blacks MDRD (S/P/Bld) [Vol rate/Area] 57 mL/min/{1.73_m2} Low >60 [facility] Comment on above: Non- GFR Calc Glucose measurementOrdered B y: Doris Yip on 08-28-2024 Glucose [Mass/Vol] 180 mg/dL High 74-106 [facility] Comment on above: Fasting Glucose resu lt greater than or equal to 126 mg/dL suggests DIABETES MELLITUS per A.D.A. criteria. Hematocrit Auto (Bld) [Volum e fraction]Ordered By: Doris Yip on 08-28-2024 Hematocrit (Bld) [Volume fraction] 36.8 % Low 37-47 [facility] [place] Hemoglobin measurementOrdere d By: Doris Yip on 08-28-2024 Hemoglobin (Bld) [Mass/Vol] 11.9 g/dL Low 12.0-15. 0 [facility] [place] Immature granulocytes/100 WB C Auto (Bld)Ordered By: Doris Yip on 08-28-2024 Immature granulocytes/100 WBC (Bld) 0.600 % 0.0-0.9 [facility] [place] Comment on above: IG% - Immature Granu locytes (promyelocytes, myelocytes and metamyelocytes) > 1% indicates that a LEFT SHIFT is Present. Laboratory - Chemistry and C hemistry - challengeOrdered By: Doris Yip on 08-28-2024 AST [Catalytic activity/Vol] 18 U/L 15-37 [facility] [place] Lymphocytes Auto (Unsp spec) [#/Vol]Ordered By: Doris Yip on 08-28-2024 Lymphocytes (Bld) [#/Vol] 2.19 10*3/uL 0.83-4.5 1 [facility] [place] Lymphocytes/100 WBC Auto (Un sp spec)Ordered By: Doris Yip on 08-28-2024 Lymphocytes/100 WBC (Bld) 25.2 % 19-41 [facility] [place] MCV (mean corpuscular volume ) determinationOrdered By: Doris Yip on 08-28-2024 MCV (RBC) [Entitic vol] 96.1 fL 81-99 [facility] Mean corpuscular hemoglobin (MCH) determinationOrdered By: Doris Yip on 08-28-2024 MCH (RBC) [Entitic mass] 31.1 pg 27.0-32.0 [facility] [place] Mean corpuscular hemoglobin concentration (MCHC) determinationOrdered By: Doris Yip on 08-28-2024 MCHC (RBC) [Mass/Vol] 32.3 g/dL 32-36 [facility] Mean platelet volume determi nationOrdered By: Doris Yip on 08-28-2024 Platelet mean volume (Bld) [Entitic vol] 10.3 fL 6.2-12.0 [facility] [place] Monocyte percentageOrdered B y: Doris Yip on 08-28-2024 Monocytes/100 WBC (Bld) 4.6 % 0-10 [facility] Neutrophil percentageOrdered By: Doris Yip on 08-28-2024 Neutrophils/100 WBC (Bld) 67.3 % 47-70 [facility] [place] Nucleated red blood cell per centageOrdered By: Doris Yip on 08-28-2024 Nucleated RBC/100 WBC (Bld) [Ratio] 0 % 0-5 [facility] [place] Platelet countOrdered By: Ariana Yip on 08-28-2024 Platelets (Bld) [#/Vol] 329 10*3/uL 150-450 [facility] [place] Potassium measurementOrdered By: Doris Yip on 08-28-2024 Potassium [Moles/Vol] 4.2 mmol/L 3.5-5.1 [facility] RBC Auto (Bld) [#/Vol]Ordere d By: Doris Yip on 08-28-2024 RBC (Bld) [#/Vol] 3.83 10*6/uL Low 4.2-5.4 [facility] Serum anion gap measurementO rdered By: Doris Yip on 08-28-2024 Anion gap [Moles/Vol] 8 mmol/L 5-15 [facility] Serum globulin measurementOr dered By: Doris Yip on 08-28-2024 Globulin (S) [Mass/Vol] 4.0 g/dL 2.2-4.2 [facility] Serum or plasma alanine reyes otransferase (ALT) measurementOrdered By: Doris Yip on 08-28-2024 ALT [Catalytic activity/Vol] 30 U/L 13-56 [facility] [place] Serum or plasma albumin jatin urement (mass/volume)Ordered By: Doris Yip on 08-28-2024 Albumin [Mass/Vol] 3.4 g/dL 3.2-5.0 [facility] Serum or plasma alkaline lana sphatase measurementOrdered By: Doris Yip on 08-28-2024 ALP [Catalytic activity/Vol] 62 U/L 45-117 [facility] [place] Serum or plasma calcium jatin urement (mass/volume)Ordered By: Doris Yip on 08-28-2024 Calcium [Mass/Vol] 9.1 mg/dL 8.5-10.1 [facility] Serum or plasma creatinine m easurement (mass/volume)Ordered By: Doris Yip on 08-28-2024 Creatinine [Mass/Vol] 1.03 mg/dL High 0.55-1.02 [facility] Comment on above: The validity of the calculated GFR & GFRAA in patients over 70 years has not been determined. Clinical correlation is essential. Serum or plasma urea nitroge n measurement (mass/volume)Ordered By: Doris Yip on 08-28-2024 Urea nitrogen [Mass/Vol] 14 mg/dL 7-18 [facility] [place] Sodium levelOrdered By: Katherine Yip on 08-28-2024 Sodium [Moles/Vol] 136 mmol/L 136-145 [facility] Total proteinOrdered By: Liyah Yip on 08-28-2024 Protein [Mass/Vol] 7.4 g/dL 6.4-8.2 [facility] White blood cell (WBC) count Ordered By: Doris Yip on 08-28-2024 WBC (Bld) [#/Vol] 8.7 10*3/uL 4.4-11.0 [facility] Dexa Bone Density Studyon Dexa Bone Density Study Normal [facility] Absolute neutrophil countOrd ered By: Meir Zepeda on 08-01-2024 Neutrophils (Bld) [#/Vol] 3.4 10*3/uL 2.0-7.7 [facility] [place] Basophil percentageOrdered B y: Meir Zepeda on 08-01-2024 Basophils/100 WBC (Bld) 1.0 % 0-1 [facility] CBC W/Diff, Automatedon 07-23 Absolute Lymph 2.59 X10 3/uL Normal 0.83-4.51 [facility] [place] Comment on above: Order Comment: Order Date: 08/01/24Order Info: 0184-1 - CBCD Performed By: #### L 503.6030, L100.0100, L503.0105, L501.9985 ####[facility] [place] [address] [place], [address] Absolute Neut 3.4 X10 3/uL Normal 2.0-7.7 [facility] [place] Comment on above: Order Comment: Order Date: 08/01/24Order Info: 0184-1 - CBCD Performed By: #### L 503.6030, L100.0100, L503.0105, L501.9985 ####[facility] [place] [address] [place], [address] Basophils/100 WBC (Bld) 1.0 % Normal 0-1 [facility] Comment on above: Order Comment: Order Date: 08/01/24Order Info: 0184-1 - CBCD Performed By: #### L 503.6030, L100.0100, L503.0105, L501.9985 ####[facility] [place] [address] [place], [address] Eosinophils/100 WBC (Bld) 2.2 % Normal 0-5 [facility] [place] Comment on above: Order Comment: Order Date: 08/01/24Order Info: 0184-1 - CBCD Performed By: #### L 503.6030, L100.0100, L503.0105, L501.9985 ####[facility] [place] [address] [place], [address] Erythrocyte distribution width (RBC) [Ratio] 14.5 % Normal 11.6-14.6 [facility] [place] Comment on above: Order Comment: Order Date: 08/01/24Order Info: 0184-1 - CBCD Performed By: #### L 503.6030, L100.0100, L503.0105, L501.9985 ####[facility] [place] [address] [place], [address] Hematocrit (Bld) [Volume fraction] 37.0 % Normal 37-47 [facility] [place] Comment on above: Order Comment: Order Date: 08/01/24Order Info: 0184-1 - CBCD Performed By: #### L 503.6030, L100.0100, L503.0105, L501.9985 ####[facility] [place] [address] [place], [address] Hemoglobin (Bld) [Mass/Vol] 12.2 g/dL Normal 12.0-15. 0 [facility] [place] Comment on above: Order Comment: Order Date: 08/01/24Order Info: 0184-1 - CBCD Performed By: #### L 503.6030, L100.0100, L503.0105, L501.9985 ####[facility] [place] [address] [place], [address] IG% 1.000 High 0.0-0.9 [facility] [place] Comment on above: Order Comment: Order Date: 08/01/24Order Info: 0184-1 - CBCD Result Comment: IG% - Immature Granulocytes (promyelocytes, myelocytes andmetamyelocytes) > 1% indicates that a LEFT SHIFT is Present. Performed By: #### L 503.6030, L100.0100, L503.0105, L501.9985 ####[facility] [place] [address] [place], [address] Lymphocytes/100 WBC (Bld) 38.0 % Normal 19-41 [facility] [place] Comment on above: Order Comment: Order Date: 08/01/24Order Info: 0184-1 - CBCD Performed By: #### L 503.6030, L100.0100, L503.0105, L501.9985 ####[facility] [place] [address] [place], [address] MCH (RBC) [Entitic mass] 31.1 pg Normal 27.0-32.0 [facility] [place] Comment on above: Order Comment: Order Date: 08/01/24Order Info: 0184-1 - CBCD Performed By: #### L 503.6030, L100.0100, L503.0105, L501.9985 ####[facility] [place] [address] [place], [address] MCHC (RBC) [Mass/Vol] 33.0 g/dL Normal 32-36 [facility] Comment on above: Order Comment: Order Date: 08/01/24Order Info: 0184-1 - CBCD Performed By: #### L 503.6030, L100.0100, L503.0105, L501.9985 ####[facility] [place] [address] [place], [address] MCV (RBC) [Entitic vol] 94.4 fL Normal 81-99 [facility] Comment on above: Order Comment: Order Date: 08/01/24Order Info: 0184-1 - CBCD Performed By: #### L 503.6030, L100.0100, L503.0105, L501.9985 ####[facility] [place] [address] [place], [address] Monocytes/100 WBC (Bld) 7.5 % Normal 0-10 [facility] Comment on above: Order Comment: Order Date: 08/01/24Order Info: 0184-1 - CBCD Performed By: #### L 503.6030, L100.0100, L503.0105, L501.9985 ####[facility] [place] [address] [place], [address] Neutrophils/100 WBC (Bld) 50.3 % Normal 47-70 [facility] [place] Comment on above: Order Comment: Order Date: 08/01/24Order Info: 0184-1 - CBCD Performed By: #### L 503.6030, L100.0100, L503.0105, L501.9985 ####[facility] [place] [address] [place], [address] Nucleated RBC (Bld) [#/Vol] 0 10*3/uL Normal 0-5 [facility] [place] Comment on above: Order Comment: Order Date: 08/01/24Order Info: 0184-1 - CBCD Performed By: #### L 503.6030, L100.0100, L503.0105, L501.9985 ####[facility] [place] [address] [place], [address] Platelet mean volume (Bld) [Entitic vol] 9.7 fL Normal 6.2-12.0 [facility] [place] Comment on above: Order Comment: Order Date: 08/01/24Order Info: 0184-1 - CBCD Performed By: #### L 503.6030, L100.0100, L503.0105, L501.9985 ####[facility] [place] [address] [place], [address] Platelets (Bld) [#/Vol] 382 10*3/uL Normal 150-450 [facility] [place] Comment on above: Order Comment: Order Date: 08/01/24Order Info: 0184-1 - CBCD Performed By: #### L 503.6030, L100.0100, L503.0105, L501.9985 ####[facility] [place] [address] [place], [address] RBC (Bld) [#/Vol] 3.92 10*6/uL Low 4.2-5.4 [facility] Comment on above: Order Comment: Order Date: 08/01/24Order Info: 0184-1 - CBCD Performed By: #### L 503.6030, L100.0100, L503.0105, L501.9985 ####[facility] [place] [address] [place], [address] RDW SD 49.3 fl High 35.1-43.9 [facility] [place] Comment on above: Order Comment: Order Date: 08/01/24Order Info: 0184-1 - CBCD Performed By: #### L 503.6030, L100.0100, L503.0105, L501.9985 ####[facility] [place] [address] [place], [address] WBC (Bld) [#/Vol] 6.8 10*3/uL Normal 4.4-11.0 [facility] Comment on above: Order Comment: Order Date: 08/01/24Order Info: 0184-1 - CBCD Performed By: #### L 503.6030, L100.0100, L503.0105, L501.9985 ####[facility] [place] [address] [place], [address] Eosinophil percentageOrdered By: Meir Zepeda on 08-01-2024 Eosinophils/100 WBC (Bld) 2.2 % 0-5 [facility] [place] Erythrocyte distribution wid th ratioOrdered By: [facility] 08-01-2024 Erythrocyte distribution width (RBC) [Ratio] 14.5 % 11.6-14.6 [facility] [place] Erythrocyte distribution wid th standard deviationOrdered By: [facility] on 08-01-2024 Erythrocyte distribution width (RBC) [Entitic vol] 49.3 fL High 35.1-43.9 [facility] Hematocrit Auto (Bld) [Volum e fraction]Ordered By: [facility] on 08-01-2024 Hematocrit (Bld) [Volume fraction] 37.0 % 37-47 [facility] [place] Hemoglobin A1con 08-01-2024 HbA1c (Bld) [Mass fraction] 7.2 % High 3.8-5.6 [facility] [place] Comment on above: Order Comment: Order Date: 08/01/24Order Info: [id number] - A1C Result Comment: Norm al < 5.7 % Prediabetic 5.7 - 6.4 % Diabetic >or= 6.5 % Please note range changes. Performed By: #### L 503.6030, L100.0100, L503.0105, L501.9985 ####[facility] [place] [address] [place], [address] Hemoglobin A1c percentageOrd ered By: Meir Braunke on 08-01-2024 HbA1c (Bld) [Mass fraction] 7.2 % High 3.8-5.6 [facility] [place] Comment on above: Normal < 5.7 % Predi abetic 5.7 - 6.4 % Diabetic >or= 6.5 % Please note range changes. Hemoglobin measurementOrdere d By: Meir Braunke on 08-01-2024 Hemoglobin (Bld) [Mass/Vol] 12.2 g/dL 12.0-15. 0 [facility] [place] Immature granulocytes/100 WB C Auto (Bld)Ordered By: Meir Braunke on 08-01-2024 Immature granulocytes/100 WBC (Bld) 1.000 % High 0.0-0.9 [facility] [place] Comment on above: IG% - Immature Granu locytes (promyelocytes, myelocytes and metamyelocytes) > 1% indicates that a LEFT SHIFT is Present. Iron (Unsp spec) [Mass/Mass] Ordered By: Meir Zepeda on 08-01-2024 Iron [Mass/Vol] 57 ug/dL 50-170 [facility] [place] Iron saturation [Mass fracti on]Ordered By: Meir Rachelle on 08-01-2024 Iron Saturation 18.8 % 15.0-55.0 [facility] [place] Iron+Iron Binding Capacityon 08-01-2024 Iron [Mass/Vol] 57 ug/dL Normal 50-170 [facility] [place] Comment on above: Order Comment: Order Date: 08/01/24Order Info: [id number] - IBC Performed By: #### L 503.6030, L100.0100, L503.0105, L501.9985 ####[facility] [place] [address] [place], [address] IRON SATURATION 18.8 Normal 15.0-55.0 [facility] [place] Comment on above: Order Comment: Order Date: 08/01/24Order Info: [id number] - IBC Performed By: #### L 503.6030, L100.0100, L503.0105, L501.9985 ####[facility] [place] [address] [place], [address] TIBC 304 ug/dL Normal 250-450 [facility] [place] Comment on above: Order Comment: Order Date: 08/01/24Order Info: [id number] - IBC Performed By: #### L 503.6030, L100.0100, L503.0105, L501.9985 ####[facility] [place] [address] [place], [address] Lymphocytes Auto (Unsp spec) [#/Vol]Ordered By: Meir Zepeda on 08-01-2024 Lymphocytes (Bld) [#/Vol] 2.59 10*3/uL 0.83-4.5 1 [facility] [place] Lymphocytes/100 WBC Auto (Un sp spec)Ordered By: Meir Zepeda on 08-01-2024 Lymphocytes/100 WBC (Bld) 38.0 % 19-41 [facility] [place] MCV (mean corpuscular volume ) determinationOrdered By: Meir Zepeda on 08-01-2024 MCV (RBC) [Entitic vol] 94.4 fL 81-99 [facility] Mean corpuscular hemoglobin (MCH) determinationOrdered By: Meir Zepeda on 08-01-2024 MCH (RBC) [Entitic mass] 31.1 pg 27.0-32.0 [facility] [place] Mean corpuscular hemoglobin concentration (MCHC) determinationOrdered By: Meir Zepeda on 08-01-2024 MCHC (RBC) [Mass/Vol] 33.0 g/dL 32-36 [facility] Mean platelet volume determi nationOrdered By: Meir Zepeda on 08-01-2024 Platelet mean volume (Bld) [Entitic vol] 9.7 fL 6.2-12.0 [facility] [place] Monocyte percentageOrdered B y: Meir Zepeda on 08-01-2024 Monocytes/100 WBC (Bld) 7.5 % 0-10 [facility] Neutrophil percentageOrdered By: Meir Zepeda on 08-01-2024 Neutrophils/100 WBC (Bld) 50.3 % 47-70 [facility] [place] Nucleated red blood cell per centageOrdered By: Meir Zepeda on 08-01-2024 Nucleated RBC/100 WBC (Bld) [Ratio] 0 % 0-5 [facility] [place] Platelet countOrdered By: Jose tindaniel Zepeda on 08-01-2024 Platelets (Bld) [#/Vol] 382 10*3/uL 150-450 [facility] [place] RBC Auto (Bld) [#/Vol]Ordere d By: Gladisdaniel Rachelle on 08-01-2024 RBC (Bld) [#/Vol] 3.92 10*6/uL Low 4.2-5.4 [facility] TIBCOrdered By: Meir Zepeda on 08-01-2024 Total Iron Binding Capacity 304 ug/dL 250-450 [facility] [place] Vitamin B12on 08-01-2024 Cobalamin (Vitamin B12) [Mass/Vol] pg/mL High 211-911 [facility] [place] Comment on above: Order Comment: Order Date: 08/01/24Order Info: [id number] - B12 Performed By: #### L 503.6030, L100.0100, L503.0105, L501.9985 ####[facility] [place] [address] [place], [place], [address] Vitamin B12 measurementOrder ed By: Meir Zepeda on 08-01-2024 Vitamin B12 Level > 2000 pg/mL High 211-911 [facility] White blood cell (WBC) count Ordered By: Meir Zepeda on 08-01-2024 WBC (Bld) [#/Vol] 6.8 10*3/uL 4.4-11.0 [facility] Neurology Visit Reporton Neurology Visit Report Normal [facility] Synovial Fluid RBC, WBC AND Diffon 07-11-2024 PATH COM/SYFL Reviewed Normal [facility] [place] Comment on above: Result Comment: Nega tive for malignant cells.BLOODY SPECIMENClinical correlation necessary.Gonzalez Benavidez M.D. 07/11/24 AMENDED REPORT 07/11/24 1355 PATH COM/SYFL previously reported as: May follow Performed By: #### L 200.0400 ####[facility] [place] [address] [place], [address] Appearance (Syn fld)Ordered By: Doris Yip on 07-09-2024 Synovial Fluid Appearance Cloudy CLEAR [facility] [place] Cells Counted Total (Syn fld ) [#]Ordered By: Doris Yip on 07-09-2024 Synovial Fluid Total Cells Counted 0.6350 10^3/uL High 0.000-0.000 [facility] [place] Comment on above: This is the Total Nu mber of Nucleated Cell Types in the Body Fluid. Color (Syn fld)Ordered By: P a Theodora on 07-09-2024 Synovial Fluid Color Red Pale Yellow [facility] Lymphocytes/100 WBC (Bld)Ord ered By: Doris Yip on 07-09-2024 Synovial Fluid Lymphocytes 11 % [facility] [place] Monocytes/100 WBC (Syn fld)O rdered By: Doris Yip on 07-09-2024 Synovial Fluid Monocytes 13 % [facility] [place] Mononuclear cells Auto (Syn fld) [#/Vol]Ordered By: Doris Yip on 07-09-2024 Synovial Fluid Mononuclear WBCs 0.268 10^3/ul [facility] [place] Mononuclear cells/100 WBC (S yn fld)Ordered By: Doris Yip on 07-09-2024 Synovial Fluid Mononuclear WBCs % 45.5 % [facility] [place] Neutrophils/100 WBC (Syn fld )Ordered By: Doris Yip on 07-09-2024 Synovial Fluid Neutrophils 68 % High 0-25 [facility] [place] Other cells/100 WBC Nom (Syn fld)Ordered By: Doris Yip on 07-09-2024 Synovial Fluid Other Cells 8 % [facility] [place] Pathologist review Arnav (Unsp spec) [Interp]Ordered By: Doris Yip on 07-09-2024 Synovial Fluid Pathologist Comment Reviewed [facility] [place] Comment on above: Previous reported re sult: May follow Edited by: AYLIN on 07/11/24:9003Negative for malignant cells.BLOODY SPECIMENClinical correlation necessary.Gonzalez Benavidez M.D. 07/11/24 AMENDED REPORT 07/11/24 0785 PATH COM/SYFL previously reported as: May follow Polymorphonuclear cells Auto (Syn fld) [#/Vol]Ordered By: Doris Yip on 07-09-2024 Synovial Fluid Polynuclear WBCs 0.322 10^3/uL [facility] Polymorphonuclear cells/100 WBC Auto (Syn fld)Ordered By: Doris Yip on 07-09-2024 Synovial Fluid Polynuclear WBCs % 54.5 % [facility] RBC (Syn fld) [#/Vol]Ordered By: Doris Yip on 07-09-2024 Synovial Fluid RBC 0.190 10^6/uL High 0-0 [facility] Specimen source Nom (Body fl d)Ordered By: Doris Yip on 07-09-2024 Synovial Fluid Source RIGHT HIP [facility] WBC Auto (Syn fld) [#/Vol]Or dered By: Doris Yip on 07-09-2024 Synovial Fluid WBC 0.5900 10^3/uL High 0.000-0.002 [facility] Low Dose CT Lung Screeningon 07-07-[address] Lung Screening Normal [facility] CBC W/Diff, Automatedon 05-23 Absolute Lymph 2.54 X10 3/uL Normal 0.83-4.51 [facility] Comment on above: Performed By: #### L 500.4050, L100.0100 ####[facility] [address] [place], [address] Absolute Neut 5.9 X10 3/uL Normal 2.0-7.7 [facility] Comment on above: Performed By: #### L 500.4050, L100.0100 ####[facility] [address] [place], [address] Basophils/100 WBC (Bld) 0.6 % Normal 0-1 [facility] Comment on above: Performed By: #### L 500.4050, L100.0100 ####[facility] [address] [place], [address] Eosinophils/100 WBC (Bld) 1.5 % Normal 0-5 [facility] Comment on above: Performed By: #### L 500.4050, L100.0100 ####[facility] [address] [place], [address] Erythrocyte distribution width (RBC) [Ratio] 14.7 % High 11.6-14.6 [facility] Comment on above: Performed By: #### L 500.4050, L100.0100 ####[facility] [address] [place], [address] Hematocrit (Bld) [Volume fraction] 35.6 % Low 37-47 [facility] Comment on above: Performed By: #### L 500.4050, L100.0100 ####[facility] [address] [place], [address] Hemoglobin (Bld) [Mass/Vol] 11.6 g/dL Low 12.0-15. 0 [facility] Comment on above: Performed By: #### L 500.4050, L100.0100 ####[facility] [address] [place], [address] IG% 1.200 High 0.0-0.9 [facility] Comment on above: Result Comment: IG% - Immature Granulocytes (promyelocytes, myelocytes andmetamyelocytes) > 1% indicates that a LEFT SHIFT is Present. Performed By: #### L 500.4050, L100.0100 ####[facility] [address] [place], [address] Lymphocytes/100 WBC (Bld) 27.1 % Normal 19-41 [facility] Comment on above: Performed By: #### L 500.4050, L100.0100 ####[facility] [address] [place], [address] MCH (RBC) [Entitic mass] 31.9 pg Normal 27.0-32.0 [facility] Comment on above: Performed By: #### L 500.4050, L100.0100 ####[facility] [address] [place], [address] MCHC (RBC) [Mass/Vol] 32.6 g/dL Normal 32-36 [facility] Comment on above: Performed By: #### L 500.4050, L100.0100 ####[facility] [address] [place], [address] MCV (RBC) [Entitic vol] 97.8 fL Normal 81-99 [facility] Comment on above: Performed By: #### L 500.4050, L100.0100 ####[facility] [address] [place], [address] Monocytes/100 WBC (Bld) 6.9 % Normal 0-10 [facility] Comment on above: Performed By: #### L 500.4050, L100.0100 ####[facility] [address] [place], [address] Neutrophils/100 WBC (Bld) 62.7 % Normal 47-70 [facility] Comment on above: Performed By: #### L 500.4050, L100.0100 ####[facility] [address] [place], [address] Nucleated RBC (Bld) [#/Vol] 0 10*3/uL Normal 0-5 [facility] Comment on above: Performed By: #### L 500.4050, L100.0100 ####[facility] [address] [place], [address] Platelet mean volume (Bld) [Entitic vol] 10.0 fL Normal 6.2-12.0 [facility] Comment on above: Performed By: #### L 500.4050, L100.0100 ####[facility] [address] [place], [address] Platelets (Bld) [#/Vol] 339 10*3/uL Normal 150-450 [facility] Comment on above: Performed By: #### L 500.4050, L100.0100 ####[facility] [address] [place], [address] RBC (Bld) [#/Vol] 3.64 10*6/uL Low 4.2-5.4 [facility] Comment on above: Performed By: #### L 500.4050, L100.0100 ####[facility] [address] [place], [address] RDW SD 52.5 fl High 35.1-43.9 [facility] Comment on above: Performed By: #### L 500.4050, L100.0100 ####[facility] [address] [place], [address] WBC (Bld) [#/Vol] 9.4 10*3/uL Normal 4.4-11.0 [facility] Comment on above: Performed By: #### L 500.4050, L100.0100 ####[facility] [address] [place], [address] Comprehensive Metabolic Prof [facility] 06-06-2024 Albumin [Mass/Vol] 3.3 g/dL Normal 3.2-5.0 [facility] Comment on above: Performed By: #### L 500.4050, L100.0100 ####[facility] [address] [place], [address] Albumin/Globulin [Mass ratio] 0.9 {ratio} Normal 0.9-2.4 [facility] Comment on above: Performed By: #### L 500.4050, L100.0100 ####[facility] [address] [place], [address] ALK P 66 U/L Normal 45-117 [facility] Comment on above: Performed By: #### L 500.4050, L100.0100 ####[facility] [address] [place], [address] ALT [Catalytic activity/Vol] 27 U/L Normal 13-56 [facility] Comment on above: Performed By: #### L 500.4050, L100.0100 ####[facility] [address] [place], [address] AST [Catalytic activity/Vol] 24 U/L Normal 15-37 [facility] Comment on above: Performed By: #### L 500.4050, L100.0100 ####[facility] [address] [place], [address] Bilirubin [Mass/Vol] 0.30 mg/dL Normal 0.20-1.00 [facility] Comment on above: Result Comment: For patients on eltrombopag therapy, use of Dimension [place] TBIL is not recommended. Performed By: #### L 500.4050, L100.0100 ####[facility] [address] [place], [address] BUN/CRE 22.8 RATIO High 10-20 [facility] Comment on above: Performed By: #### L 500.4050, L100.0100 ####[facility] [address] [place], [address] CA,Total 8.7 mg/dL Normal 8.5-10.1 [facility] Comment on above: Performed By: #### L 500.4050, L100.0100 ####[facility] [address] [place], [address] Chloride [Moles/Vol] 105 mmol/L Normal 98-107 [facility] Comment on above: Performed By: #### L 500.4050, L100.0100 ####[facility] [address] [place], [address] CO2 [Moles/Vol] 29.0 mmol/L Normal 21.0-32.0 [facility] Comment on above: Performed By: #### L 500.4050, L100.0100 ####[facility] [address] [place], [address] Creatinine [Mass/Vol] 1.01 mg/dL Normal 0.55-1.02 [facility] Comment on above: Result Comment: The validity of the calculated GFR GFRAA in patients over70 years has not been determined. Clinical correlation isessential. Performed By: #### L 500.4050, L100.0100 ####[facility] [address] [place], [address] EST GFR - AA 70 mL/min Normal >60 [facility] Comment on above: Result Comment: Afri can [place] GFR Calc Performed By: #### L 500.4050, L100.0100 ####[facility] [address] [place], [address] GAP 7 Normal 5-15 [facility] Comment on above: Performed By: #### L 500.4050, L100.0100 ####[facility] [address] [place], [address] GFR/1.73 sq M.predicted among non-blacks MDRD (S/P/Bld) [Vol rate/Area] 58 mL/min/{1.73_m2} Low >60 [facility] Comment on above: Result Comment: Non- GFR Calc Performed By: #### L 500.4050, L100.0100 ####[facility] [address] [place], [address] Globulin (S) [Mass/Vol] 3.7 g/dL Normal 2.2-4.2 [facility] Comment on above: Performed By: #### L 500.4050, L100.0100 ####[facility] [address] [place], [address] Glucose [Mass/Vol] 152 mg/dL High 74-106 [facility] Comment on above: Result Comment: Fast ing Glucose result greater than or equal to 126 mg/dLsuggests DIABETES MELLITUS per A.D.A. criteria. Performed By: #### L 500.4050, L100.0100 ####[facility] [address] [place], [address] Potassium [Moles/Vol] 4.2 mmol/L Normal 3.5-5.1 [facility] Comment on above: Performed By: #### L 500.4050, L100.0100 ####[facility] [address] [place], [address] Sodium [Moles/Vol] 141 mmol/L Normal 136-145 [facility] Comment on above: Performed By: #### L 500.4050, L100.0100 ####[facility] [address] [place], [address] T PROT 7.0 g/dL Normal 6.4-8.2 [facility] Comment on above: Performed By: #### L 500.4050, L100.0100 ####[facility] [address] [place], [address] Urea nitrogen [Mass/Vol] 23 mg/dL High 7-18 [facility] Comment on above: Performed By: #### L 500.4050, L100.0100 ####[facility] [address] [place], [address] Absolute lymphocyte countOrd ered By: Doris Yip on 11-20-2023 Lymphocytes Auto (Unsp spec) [#/Vol] 3.19 10*3/uL 0.83-4.51 [facility] Automated lymphocyte count a s percentage of total leukocytesOrdered By: Doris Yip on 11-20-2023 Lymphocytes/100 WBC Auto (Unsp spec) 35.2 % 19-41 [facility] Basophil percentageOrdered B y: Doris Yip on 11-20-2023 Basophils/100 WBC (Bld) 0.4 % 0-1 [facility] Bilirubin [Mass/Vol] 0.30 mg/dL 0.20-1.00 [facility] Comment on above: For patients on eltr ombopag therapy, use of Dimension [place] TBIL is not recommended. Chloride [Moles/Vol] 102 mmol/L 98-107 [facility] Eosinophils/100 WBC (Bld) 1.7 % 0-5 [facility] Glucose [Mass/Vol] 177 mg/dL 74-106 [facility] Comment on above: Fasting Glucose resu lt greater than or equal to 126 mg/dL suggests DIABETES MELLITUS per A.D.A. criteria. Hemoglobin (Bld) [Mass/Vol] 12.2 g/dL 12.0-15. 0 [facility] Monocytes/100 WBC (Bld) 5.5 % 0-10 [facility] Neutrophils (Bld) [#/Vol] 5.1 10*3/uL 2.0-7.7 [facility] Neutrophils/100 WBC (Bld) 56.6 % 47-70 [facility] Potassium [Moles/Vol] 4.0 mmol/L 3.5-5.1 [facility] Protein [Mass/Vol] 7.5 g/dL 6.4-8.2 [facility] Sodium [Moles/Vol] 135 mmol/L 136-145 [facility] WBC (Bld) [#/Vol] 9.1 10*3/uL 4.4-11.0 [facility] Determination of erythrocyte mean corpuscular volume (MCV)Ordered By: Doris Yip on 11-20-2023 MCV (RBC) [Entitic vol] 92.5 fL 81-99 [facility] Erythrocyte distribution wid th ratioOrdered By: Doris Yip on 11-20-2023 Erythrocyte distribution width (RBC) [Ratio] 13.5 % 11.6-14.6 [facility] Erythrocyte distribution wid th standard deviationOrdered By: Doris Yip on 11-20-2023 Erythrocyte distribution width (RBC) [Entitic vol] 45.8 fL 35.1-43.9 [facility] Hematocrit Auto (Bld) [Volum e fraction]Ordered By: Doris Yip on 11-20-2023 Hematocrit (Bld) [Volume fraction] 38.0 % 37-47 [facility] Immature granulocytes/100 WB C Auto (Bld)Ordered By: Doris Yip on 11-20-2023 Immature granulocytes/100 WBC (Bld) 0.600 % 0.0-0.9 [facility] Comment on above: IG% - Immature Granu locytes (promyelocytes, myelocytes and metamyelocytes) > 1% indicates that a LEFT SHIFT is Present. Laboratory - Chemistry and C hemistry - challengeOrdered By: Doris Yip on 11-20-2023 Albumin/Globulin [Mass ratio] 0.8 {ratio} 0.9-2.4 [facility] ALP [Catalytic activity/Vol] 61 U/L 45-117 [facility] ALT [Catalytic activity/Vol] 27 U/L 13-56 [facility] CO2 [Moles/Vol] 27.0 mmol/L 21.0-32.0 [facility] Globulin (S) [Mass/Vol] 4.1 g/dL 2.2-4.2 [facility] Urea nitrogen/Creatinine [Mass ratio] 33.2 mg/mg 10-20 [facility] Laboratory - Hematology and Cell countsOrdered By: Doris Yip on 11-20-2023 MCH (RBC) [Entitic mass] 29.7 pg 27.0-32.0 [facility] MCHC (RBC) [Mass/Vol] 32.1 g/dL 32-36 [facility] Nucleated RBC/100 WBC (Bld) [Ratio] 0 % 0-5 [facility] Platelet mean volume (Bld) [Entitic vol] 9.8 fL 6.2-12.0 [facility] Platelets (Bld) [#/Vol] 309 10*3/uL 150-450 [facility] No Panel InformationOrdered By: Doris Yip on 11-20-2023 Estimated GFR (MDRD) Amer 72 mL/min >60 [facility] Comment on above: GFR Calc Estimated GFR (MDRD) Non-Af Amer 59 mL/min >60 [facility] Comment on above: Non- GFR Calc RBC Auto (Bld) [#/Vol]Ordere d By: Doris Yip on 11-20-2023 RBC (Bld) [#/Vol] 4.11 10*6/uL 4.2-5.4 [facility] Serum or plasma calcium jatin urement (mass/volume)Ordered By: Doris Yip on 11-20-2023 Calcium [Mass/Vol] 9.2 mg/dL 8.5-10.1 [facility] Serum or plasma creatinine m easurement (mass/volume)Ordered By: Doris Yip on 11-20-2023 Creatinine [Mass/Vol] 1.00 mg/dL 0.55-1.02 [facility] Comment on above: The validity of the calculated GFR & GFRAA in patients over 70 years has not been determined. Clinical correlation is essential. Serum or plasma urea nitroge n measurement (mass/volume)Ordered By: Doris Yip on 11-20-2023 Urea nitrogen [Mass/Vol] 33 mg/dL 7-18 [facility] Thin prep Papanicolaou smear with manual screeningOrdered By: Doris Yip on 11-20-2023 Thin prep Papanicolaou smear with manual screening 3.4 g/dL 3.2-5.0 [facility] Thin prep Papanicolaou smear with manual screening 16 U/L 15-37 [facility] Thin prep Papanicolaou smear with manual screening 6 5-15 [facility] Absolute lymphocyte countOrd ered By: Doris Yip on 10-19-2023 Lymphocytes Auto (Unsp spec) [#/Vol] 2.50 10*3/uL 0.83-4.51 [facility] Automated lymphocyte count a s percentage of total leukocytesOrdered By: Doris Yip on 10-19-2023 Lymphocytes/100 WBC Auto (Unsp spec) 35.4 % 19-41 [facility] Basophil percentageOrdered B y: Bernard Dawn on 10-19-2023 Basophil percentage 10-25 SEEN /hpf 0-5 [facility] Basophil percentageOrdered B y: Doris Yip on 10-19-2023 Basophils/100 WBC (Bld) 0.7 % 0-1 [facility] Bilirubin [Mass/Vol] 0.50 mg/dL 0.20-1.00 [facility] Comment on above: For patients on eltr ombopag therapy, use of Dimension [place] TBIL is not recommended. Chloride [Moles/Vol] 101 mmol/L 98-107 [facility] Eosinophils/100 WBC (Bld) 1.7 % 0-5 [facility] Glucose [Mass/Vol] 153 mg/dL 74-106 [facility] Comment on above: Fasting Glucose resu lt greater than or equal to 126 mg/dL suggests DIABETES MELLITUS per A.D.A. criteria. Hemoglobin (Bld) [Mass/Vol] 12.2 g/dL 12.0-15. 0 [facility] Monocytes/100 WBC (Bld) 5.9 % 0-10 [facility] Neutrophils (Bld) [#/Vol] 3.9 10*3/uL 2.0-7.7 [facility] Neutrophils/100 WBC (Bld) 55.9 % 47-70 [facility] Potassium [Moles/Vol] 3.8 mmol/L 3.5-5.1 [facility] Protein [Mass/Vol] 7.7 g/dL 6.4-8.2 [facility] Sodium [Moles/Vol] 138 mmol/L 136-145 [facility] WBC (Bld) [#/Vol] 7.1 10*3/uL 4.4-11.0 [facility] Bilirubin Test strip Ql (U)O rdered By: Bernard Dawn on 10-19-2023 Bilirubin Ql (U) 1 mg/dL Negative [facility] Comment on above: COLOR OF URINE MAY A FFECT DIPSTICK RESULTS. Culture, urineOrdered By: Karen Dawn on 10-19-2023 Bacteria identified Cx Nom (U) Mixed Gram Pos & Gram Neg Org [facility] Determination of erythrocyte mean corpuscular volume (MCV)Ordered By: Doris Yip on 10-19-2023 MCV (RBC) [Entitic vol] 93.6 fL 81-99 [facility] Erythrocyte distribution wid th ratioOrdered By: Doris Yip on 10-19-2023 Erythrocyte distribution width (RBC) [Ratio] 13.2 % 11.6-14.6 [facility] Erythrocyte distribution wid th standard deviationOrdered By: Doris Yip on 10-19-2023 Erythrocyte distribution width (RBC) [Entitic vol] 45.4 fL 35.1-43.9 [facility] Hematocrit Auto (Bld) [Volum e fraction]Ordered By: Doris Yip on 10-19-2023 Hematocrit (Bld) [Volume fraction] 38.1 % 37-47 [facility] Immature granulocytes/100 WB C Auto (Bld)Ordered By: Doris Yip on 10-19-2023 Immature granulocytes/100 WBC (Bld) 0.400 % 0.0-0.9 [facility] Comment on above: IG% - Immature Granu locytes (promyelocytes, myelocytes and metamyelocytes) > 1% indicates that a LEFT SHIFT is Present. Ketones Test strip Ql (U)Ord ered By: Bernard Dawn on 10-19-2023 Ketones Ql (U) 5 mg/dl Negative [facility] Laboratory - Chemistry and C hemistry - challengeon 10-19-2023 Bilirubin Ql (U) Negative [facility] Glucose Ql (U) Negative [facility] Ketones Ql (U) Negative [facility] pH (U) 6.0 [pH] [facility] Specific gravity (U) [Rel density] 1.030 [facility] Urobilinogen (U) [Mass/Vol] 0.4628643 mg/dL [facility] Laboratory - Chemistry and C hemistry - challengeOrdered By: Doris Yip on 10-19-2023 Albumin/Globulin [Mass ratio] 0.8 {ratio} 0.9-2.4 [facility] ALP [Catalytic activity/Vol] 67 U/L 45-117 [facility] ALT [Catalytic activity/Vol] 26 U/L 13-56 [facility] CO2 [Moles/Vol] 28.0 mmol/L 21.0-32.0 [facility] Globulin (S) [Mass/Vol] 4.2 g/dL 2.2-4.2 [facility] Urea nitrogen/Creatinine [Mass ratio] 19.8 mg/mg 10-20 [facility] Laboratory - Hematology and Cell countson 10-19-2023 Hemoglobin Ql (U) Hemolyzed [facility] Laboratory - Hematology and Cell countsOrdered By: Doris Yip on 10-19-2023 MCH (RBC) [Entitic mass] 30.0 pg 27.0-32.0 [facility] MCHC (RBC) [Mass/Vol] 32.0 g/dL 32-36 [facility] Nucleated RBC/100 WBC (Bld) [Ratio] 0 % 0-5 [facility] Platelet mean volume (Bld) [Entitic vol] 9.8 fL 6.2-12.0 [facility] Platelets (Bld) [#/Vol] 311 10*3/uL 150-450 [facility] Laboratory - Specimen inform ationon 10-19-2023 Clarity (U) Cloudy [facility] Color (U) RED [facility] Laboratory - Urinalysison Nitrite Ql (U) Negative [facility] Protein Ql (U) 2+ [facility] Mucus LM Ql (Urine sed)Order ed By: Bernard Dawn on 10-19-2023 Mucus Ql (Urine sed) 0 SEEN /hpf [facility] Nitrite Test strip Ql (U)Ord ered By: Bernard Dawn on 10-19-2023 Nitrite Ql (U) Positive Negative [facility] No Panel InformationOrdered By: Bernard Dawn on 10-19-2023 Urine RBC > 100 SEEN /hpf 0-5 [facility] No Panel Informationon 10-18 Urine Leukocytes Positive [facility] Urine Non-Hemolyzed Blood Large [facility] No Panel InformationOrdered By: Doris Yip on 10-19-2023 Estimated GFR (MDRD) Amer 75 mL/min >60 [facility] Comment on above: GFR Calc Estimated GFR (MDRD) Non-Af Amer 62 mL/min >60 [facility] Comment on above: Non- GFR Calc Protein Test strip Ql (U)Ord ered By: Bernard Dawn on 10-19-2023 Protein Ql (U) 100 mg/dl Negative [facility] RBC Auto (Bld) [#/Vol]Ordere d By: Doris Yip on 10-19-2023 RBC (Bld) [#/Vol] 4.07 10*6/uL 4.2-5.4 [facility] Serum or plasma calcium jatin urement (mass/volume)Ordered By: Doris Yip on 10-19-2023 Calcium [Mass/Vol] 9.1 mg/dL 8.5-10.1 [facility] Serum or plasma creatinine m easurement (mass/volume)Ordered By: Doris Yip on 10-19-2023 Creatinine [Mass/Vol] 0.96 mg/dL 0.55-1.02 [facility] Comment on above: The validity of the calculated GFR & GFRAA in patients over 70 years has not been determined. Clinical correlation is essential. Serum or plasma thyroid stim ulating hormone (TSH) measurement (units/volume)Ordered By: Dorisasher Yip on 10-19-2023 TSH Qn 1.23 uIU/mL 0.358-3.74 [facility] Serum or plasma urea nitroge n measurement (mass/volume)Ordered By: Doris Yip on 10-19-2023 Urea nitrogen [Mass/Vol] 19 mg/dL 7-18 [facility] Squamous epithelial cells de tection in urine sediment by light microscopyOrdered By: Bernard Dawn on 10-19-2023 Epithelial cells.squamous LM Ql (Urine sed) 0 SEEN /hpf 5-10 [facility] Thin prep Papanicolaou smear with manual screeningOrdered By: Doris Yip on 10-19-2023 Thin prep Papanicolaou smear with manual screening 3.5 g/dL 3.2-5.0 [facility] Thin prep Papanicolaou smear with manual screening 18 U/L 15-37 [facility] Thin prep Papanicolaou smear with manual screening 9 5-15 [facility] Urine blood detectionOrdered By: Bernard Dawn on 10-19-2023 RBC Ql (U) 250 /ul Negative [facility] Urine clarityOrdered By: Constantine Dawn on 10-19-2023 Clarity (U) Cloudy Clear [facility] Urine color determinationOrd ered By: Bernard Dawn on 03-29-2024 Color (U) SEE COMMENT BELOW Yellow [facility] Comment on above: Visual Urine Color: YELLOW RED Urine glucose detectionOrder ed By: Bernard Dawn on 10-19-2023 Glucose Ql (U) Normal mg/dl Normal [facility] Urine leukocyte esterase det ection by dipstickOrdered By: Bernard Dawn on 10-19-2023 Leukocyte esterase Test strip Ql (U) 100 /ul Negative [facility] Urine pHOrdered By: Bernard morales on 10-19-2023 pH (U) 5.0 [pH] 5.0 - 8.0 [facility] Urine sediment bacteria coun t by microscopy (number/high power field)Ordered By: Bernard Dawn on 10-19-2023 Bacteria LM.HPF (Urine sed) [#/Area] 0 /[HPF] None Seen [facility] Urine specific gravity measu rementOrdered By: Bernard Dawn on 10-19-2023 Specific gravity (U) [Rel density] 1.015 1.002-1.030 [facility] Urine urobilinogen measureme ntOrdered By: Bernard Dawn on 10-19-2023 Urobilinogen Ql (U) 1 mg/dl Normal [facility] Basophil percentageOrdered B y: Jose Ramon Mckenzie on 10-08-2023 Basophil percentage 0-5 SEEN /hpf 0-5 [facility] Bilirubin Test strip Ql (U)O rdered By: Jose Ramon Mckenzie on 10-08-2023 Bilirubin Ql (U) Negative Negative [facility] Epithelial cells.squamous LM Ql (Urine sed)Ordered By: Jose Ramon Mckenzie on 10-08-2023 Epithelial cells.squamous LM.HPF (Urine sed) [#/Area] 0 /[HPF] 5-10 [facility] Glucose Ql (U)Ordered By: Lilly Mckenzie on 10-08-2023 Urine Glucose (UA) Normal mg/dl Normal [facility] Ketones Test strip Ql (U)Ord ered By: Jose Ramon Mckenzie on 10-08-2023 Ketones Ql (U) Negative Negative [facility] Microscopic analysis of urin e for red blood cells (RBC)Ordered By: Jose Ramno Mckenzie on 10-08-2023 Microscopic analysis of urine for red blood cells (RBC) 0-5 SEEN /hpf 0-5 [facility] Urine RBC 0-5 SEEN /hpf 0-5 [facility] Mucus LM Ql (Urine sed)Order ed By: Jose Ramon Mckenzie on 10-08-2023 Mucus Ql (Urine sed) 0 SEEN /hpf [facility] Nitrite Test strip Ql (U)Ord ered By: Jose Ramon Mckenzie on 10-08-2023 Nitrite Ql (U) Negative Negative [facility] Protein Test strip Ql (U)Ord ered By: Jose Ramon Mckenzie on 10-08-2023 Protein Ql (U) 15 mg/dl High Negative [facility] Squamous epithelial cells de tection in urine sediment by light microscopyOrdered By: Jose Ramon Mckenzie on 10-08-2023 Epithelial cells.squamous LM Ql (Urine sed) 0-5 SEEN /hpf 5-10 [facility] Urine blood detectionOrdered By: Jose Ramon Mckenzie on 10-08-2023 RBC Ql (U) 10 /ul Negative [facility] Urine Occult Blood 10 /ul High Negative [facility] Urine clarityOrdered By: Eugene Mckenzie on 10-08-2023 Clarity (U) Sl. Cloudy Clear [facility] Urine color determinationOrd ered By: Jose Ramon Mckenzie on 10-08-2023 Color (U) Yellow Yellow [facility] Urine glucose detectionOrder ed By: Jose Ramon Mckenzie on 10-08-2023 Glucose Ql (U) Normal mg/dl Normal [facility] Urine leukocyte esterase det ection by dipstickOrdered By: Jose Ramon Mckenzie on 10-08-2023 Leukocyte esterase Test strip Ql (U) 25 /ul High Negative [facility] Urine pHOrdered By: Jose Ramon meyer on 10-08-2023 pH (U) 5.0 [pH] 5.0 - 8.0 [facility] Urine sediment bacteria coun t by microscopy (number/high power field)Ordered By: Jose Ramon Mckenzie on 10-08-2023 Bacteria LM.HPF (Urine sed) [#/Area] 0 /[HPF] None Seen [facility] Urine specific gravity measu rementOrdered By: Jose Ramon Mckenzie on 10-08-2023 Specific gravity (U) [Rel density] 1.015 1.002-1.030 [facility] Urine urobilinogen measureme ntOrdered By: Jose Ramon Mckenzie on 10-08-2023 Urobilinogen Ql (U) Normal mg/dl Normal [facility] Urobilinogen Ql (U)Ordered B y: Jose Ramon Mckenzie on 10-08-2023 Urine Urobilinogen Normal mg/dl Normal [facility] White blood cell countOrdere d By: Jose Ramon Mckenzie on 10-08-2023 Urine WBC 0-5 SEEN /hpf 0-5 [facility] Absolute lymphocyte countOrd ered By: Jose Ramon Mckenzie on 10-01-2023 Lymphocytes Auto (Unsp spec) [#/Vol] 2.62 10*3/uL 0.83-4.51 [facility] Albumin Elph [Mass/Vol]Order ed By: Jose Ramon Mckenzie on 10-01-2023 Albumin [Mass/Vol] 3.5 g/dL 2.9-4.4 [facility] Automated lymphocyte count a s percentage of total leukocytesOrdered By: Jose Ramon Mckenzie on 10-01-2023 Lymphocytes/100 WBC Auto (Unsp spec) 34.5 % 19-41 [facility] Basophil percentageOrdered B y: Jose Ramon Mckenzie on 10-01-2023 Basophils/100 WBC (Bld) 0.5 % 0-1 [facility] Bilirubin [Mass/Vol] 0.50 mg/dL 0.20-1.00 [facility] Comment on above: For patients on eltr ombopag therapy, use of Dimension [place] TBIL is not recommended. Chloride [Moles/Vol] 103 mmol/L 98-107 [facility] Eosinophils/100 WBC (Bld) 1.8 % 0-5 [facility] Glucose [Mass/Vol] 154 mg/dL 74-106 [facility] Comment on above: Fasting Glucose resu lt greater than or equal to 126 mg/dL suggests DIABETES MELLITUS per A.D.A. criteria. Hemoglobin (Bld) [Mass/Vol] 12.2 g/dL 12.0-15. 0 [facility] LDH [Catalytic activity/Vol] 158 U/L 84-246 [facility] Monocytes/100 WBC (Bld) 5.5 % 0-10 [facility] Neutrophils (Bld) [#/Vol] 4.3 10*3/uL 2.0-7.7 [facility] Neutrophils/100 WBC (Bld) 57.2 % 47-70 [facility] Potassium [Moles/Vol] 3.7 mmol/L 3.5-5.1 [facility] Protein [Mass/Vol] 7.8 g/dL 6.4-8.2 [facility] Sodium [Moles/Vol] 140 mmol/L 136-145 [facility] WBC (Bld) [#/Vol] 7.6 10*3/uL 4.4-11.0 [facility] Determination of erythrocyte mean corpuscular volume (MCV)Ordered By: Jose Ramon Mckenzie on 10-01-2023 MCV (RBC) [Entitic vol] 92.8 fL 81-99 [facility] Erythrocyte distribution wid th ratioOrdered By: Jose Ramon Mckenzie on 10-01-2023 Erythrocyte distribution width (RBC) [Ratio] 13.4 % 11.6-14.6 [facility] Erythrocyte distribution wid th standard deviationOrdered By: Jose Ramon Mckenzie on 10-01-2023 Erythrocyte distribution width (RBC) [Entitic vol] 45.7 fL 35.1-43.9 [facility] Hematocrit Auto (Bld) [Volum e fraction]Ordered By: Jose Ramon Mckenzie on 10-01-2023 Hematocrit (Bld) [Volume fraction] 37.1 % 37-47 [facility] Immature granulocytes/100 WB C Auto (Bld)Ordered By: Jose Ramon Mckenzie on 10-01-2023 Immature granulocytes/100 WBC (Bld) 0.500 % 0.0-0.9 [facility] Comment on above: IG% - Immature Granu locytes (promyelocytes, myelocytes and metamyelocytes) > 1% indicates that a LEFT SHIFT is Present. Interpretation of serum or p lasma protein pattern by immunofixation (narrative resultOrdered By: Jose Ramon Mckenzie on 10-01-2023 Protein Fractions Immunofixation Arnav [Interp] Not Observed g/dL Not Observed [facility] - Chemistry and C hemistry - challengeOrdered By: Jose Ramon Mckenzie on 10-01-2023 Albumin/Globulin [Mass ratio] 0.8 {ratio} 0.9-2.4 [facility] ALP [Catalytic activity/Vol] 68 U/L 45-117 [facility] ALT [Catalytic activity/Vol] 27 U/L 13-56 [facility] CO2 [Moles/Vol] 32.0 mmol/L 21.0-32.0 [facility] Urea nitrogen/Creatinine [Mass ratio] 29.5 mg/mg 10-20 [facility] Laboratory - Hematology and Cell countsOrdered By: Jose Ramon Mckenzie on 10-01-2023 MCH (RBC) [Entitic mass] 30.5 pg 27.0-32.0 [facility] MCHC (RBC) [Mass/Vol] 32.9 g/dL 32-36 [facility] Nucleated RBC/100 WBC (Bld) [Ratio] 0 % 0-5 [facility] Platelet mean volume (Bld) [Entitic vol] 9.2 fL 6.2-12.0 [facility] Platelets (Bld) [#/Vol] 296 10*3/uL 150-450 [facility] No Panel InformationOrdered By: Jose Ramon Mckenzie on 10-01-2023 Addendum Document Comment . [facility] Comment on above: Protein electrophore sis scan will follow via computer,mail, or crane ladle person delivery. Estimated Creatinine Clearance Calc 64.84 ml/min [facility] Estimated GFR (MDRD) Amer 67 mL/min >60 [facility] Comment on above: GFR Calc Estimated GFR (MDRD) Non-Af Amer 56 mL/min >60 [facility] Comment on above: Non- GFR Calc Free Lambda Light Chains, Quant 31.5 mg/L 5.7-26.3 [facility] Immunoglobulin M 112 mg/dL 26-217 [facility] RBC Auto (Bld) [#/Vol]Ordere d By: Jose Ramon Mckenzie on 10-01-2023 RBC (Bld) [#/Vol] 4.00 10*6/uL 4.2-5.4 [facility] Serum [id number] measu rement by electrophoresisOrdered By: Jose Ramon Mckenzie on 10-01-2023 Alpha 1 globulin Elph [Mass/Vol] 0.2 g/dL 0.0-0.4 [facility] Alpha 1 globulin Elph [Mass/Vol] 1.0 g/dL 0.4-1.0 [facility] Serum globulin measurement ( mass/volume)Ordered By: Jose Ramon Mckenzie on 10-01-2023 Globulin (S) [Mass/Vol] 3.4 g/dL 2.2-3.9 [facility] Serum immunoglobulin kappa l ight chains/immunoglobulin lambda light chains mass ratioOrdered By: Jose Ramon Mckenzie on 10-01-2023 Immunoglobulin light chains.kappa/Immunoglobulin light chains.lambda (S) [Mass ratio] 1.32 0.26-1.65 [facility] Comment on above: Performed at: [address] [id number] Director: Herb Kincaid PhD, Phone: [phone] Serum or plasma IgA measurem ent (mass/volume)Ordered By: Jose Ramon Mckenzie on 10-01-2023 IgA [Mass/Vol] 192 mg/dL 87-352 [facility] Serum or plasma IgG measurem ent (mass/volume)Ordered By: Jose Ramon Mckenzie on 10-01-2023 IgG [Mass/Vol] 1099 mg/dL [id number] [facility] Serum or plasma beta globuli n measurement by electrophoresis (mass/volume)Ordered By: Jose Ramon Mckenzie on 10-01-2023 Beta globulin Elph [Mass/Vol] 1.1 g/dL 0.7-1.3 [facility] Serum or plasma calcium jatin urement (mass/volume)Ordered By: Jose Ramon Mckenzie on 10-01-2023 Calcium [Mass/Vol] 9.1 mg/dL 8.5-10.1 [facility] Serum or plasma creatinine m easurement (mass/volume)Ordered By: Jose Ramon Mckenzie on 10-01-2023 Creatinine [Mass/Vol] 1.05 mg/dL 0.55-1.02 [facility] Comment on above: The validity of the calculated GFR & GFRAA in patients over 70 years has not been determined. Clinical correlation is essential. Serum or plasma gamma globul in measurement by electrophoresis (mass/volume)Ordered By: Jose Ramon Mckenzie on 10-01-2023 Gamma globulin Elph [Mass/Vol] 1.1 g/dL 0.4-1.8 [facility] Serum or plasma immunoelectr ophoresis interpretation (nominal result)Ordered By: Jose Ramon Mckenzie on 10-01-2023 Interpretation IEP [Interp] Comment . [facility] Comment on above: No monoclonality det ected. Serum or plasma immunoglobul in kappa light chains measurement (mass/volume)Ordered By: Jose Ramon [place] on 10-01-2023 Immunoglobulin light chains.kappa [Mass/Vol] 41.6 mg/L 3.3-19.4 [facility] Serum or plasma urea nitroge n measurement (mass/volume)Ordered By: Jose Ramon Mckenzie on 10-01-2023 Urea nitrogen [Mass/Vol] 31 mg/dL 7-18 [facility] Thin prep Papanicolaou smear with manual screeningOrdered By: Jose Ramon [place] on 10-01-2023 Thin prep Papanicolaou smear with manual screening 3.4 g/dL 3.2-5.0 [facility] Thin prep Papanicolaou smear with manual screening 13 U/L 15-37 [facility] Thin prep Papanicolaou smear with manual screening 5 5-15 [facility] Thin prep Papanicolaou smear with manual screening 1.1 0.7-1.7 [facility] Total protein bloodOrdered B y: Jose Ramon Mckenzie on 10-01-2023 Protein [Mass/Vol] 6.9 g/dL 6.0-8.5 [facility] Absolute lymphocyte countOrd ered By: Jose Ramon Mckenzie on 09-24-2023 Lymphocytes Auto (Unsp spec) [#/Vol] 3.22 10*3/uL 0.83-4.51 [facility] Albumin Elph [Mass/Vol]Order ed By: Jose Ramon Mckenzie on 09-24-2023 Albumin [Mass/Vol] 3.7 g/dL 2.9-4.4 [facility] Automated lymphocyte count a s percentage of total leukocytesOrdered By: Jose Ramon Mckenzie on 09-24-2023 Lymphocytes/100 WBC Auto (Unsp spec) 35.4 % 19-41 [facility] Basophil percentageOrdered B y: Jose Ramon Mckenzie on 09-24-2023 Basophils/100 WBC (Bld) 0.7 % 0-1 [facility] Bilirubin [Mass/Vol] 0.50 mg/dL 0.20-1.00 [facility] Comment on above: For patients on eltr ombopag therapy, use of Dimension [place] TBIL is not recommended. Chloride [Moles/Vol] 100 mmol/L 98-107 [facility] Eosinophils/100 WBC (Bld) 1.5 % 0-5 [facility] Glucose [Mass/Vol] 120 mg/dL 74-106 [facility] Comment on above: Fasting Glucose resu lt from 100 to 125 mg/dL suggests IMPAIRED HOMEOSTASIS per A.D.A. criteria. Hemoglobin (Bld) [Mass/Vol] 13.0 g/dL 12.0-15. 0 [facility] LDH [Catalytic activity/Vol] 169 U/L 84-246 [facility] Monocytes/100 WBC (Bld) 6.1 % 0-10 [facility] Neutrophils (Bld) [#/Vol] 5.1 10*3/uL 2.0-7.7 [facility] Neutrophils/100 WBC (Bld) 55.7 % 47-70 [facility] Potassium [Moles/Vol] 4.2 mmol/L 3.5-5.1 [facility] Protein [Mass/Vol] 8.1 g/dL 6.4-8.2 [facility] Sodium [Moles/Vol] 136 mmol/L 136-145 [facility] WBC (Bld) [#/Vol] 9.1 10*3/uL 4.4-11.0 [facility] Determination of erythrocyte mean corpuscular volume (MCV)Ordered By: Jose Ramon Mckenzie on 09-24-2023 MCV (RBC) [Entitic vol] 92.6 fL 81-99 [facility] Erythrocyte distribution wid th ratioOrdered By: Jose Ramon Mckenzie on 09-24-2023 Erythrocyte distribution width (RBC) [Ratio] 13.5 % 11.6-14.6 [facility] Erythrocyte distribution wid th standard deviationOrdered By: Jose Ramon Mckenzie on 09-24-2023 Erythrocyte distribution width (RBC) [Entitic vol] 46.1 fL 35.1-43.9 [facility] Hematocrit Auto (Bld) [Volum e fraction]Ordered By: Jose Ramon Mckenzie on 09-24-2023 Hematocrit (Bld) [Volume fraction] 40.0 % 37-47 [facility] Immature granulocytes/100 WB C Auto (Bld)Ordered By: Jose Ramon Mckenzie on 09-24-2023 Immature granulocytes/100 WBC (Bld) 0.600 % 0.0-0.9 [facility] Comment on above: IG% - Immature Granu locytes (promyelocytes, myelocytes and metamyelocytes) > 1% indicates that a LEFT SHIFT is Present. Interpretation of serum or p lasma protein pattern by immunofixation (narrative resultOrdered By: Jose Ramon Mckenzie on 09-24-2023 Protein Fractions Immunofixation Arnav [Interp] Not Observed g/dL Not Observed [facility] - Chemistry and C hemistry - challengeOrdered By: Jose Ramon Mckenzie on 09-24-2023 Albumin/Globulin [Mass ratio] 0.8 {ratio} 0.9-2.4 [facility] ALP [Catalytic activity/Vol] 70 U/L 45-117 [facility] ALT [Catalytic activity/Vol] 29 U/L 13-56 [facility] CO2 [Moles/Vol] 31.0 mmol/L 21.0-32.0 [facility] Urea nitrogen/Creatinine [Mass ratio] 31.0 mg/mg 10-20 [facility] Laboratory - Hematology and Cell countsOrdered By: Jose Ramon Mckenzie on 09-24-2023 MCH (RBC) [Entitic mass] 30.1 pg 27.0-32.0 [facility] MCHC (RBC) [Mass/Vol] 32.5 g/dL 32-36 [facility] Nucleated RBC/100 WBC (Bld) [Ratio] 0 % 0-5 [facility] Platelet mean volume (Bld) [Entitic vol] 9.7 fL 6.2-12.0 [facility] Platelets (Bld) [#/Vol] 339 10*3/uL 150-450 [facility] No Panel InformationOrdered By: Jose Ramon Mckenzie on 09-24-2023 Addendum Document Comment . [facility] Comment on above: Protein electrophore sis scan will follow via computer,mail, or crane ladle person delivery. Estimated GFR (MDRD) Amer 71 mL/min >60 [facility] Comment on above: GFR Calc Estimated GFR (MDRD) Non-Af Amer 59 mL/min >60 [facility] Comment on above: Non- GFR Calc Free Lambda Light Chains, Quant 32.4 mg/L 5.7-26.3 [facility] Immunoglobulin M 124 mg/dL 26-217 [facility] RBC Auto (Bld) [#/Vol]Ordere d By: Jose Ramon Mckenzie on 09-24-2023 RBC (Bld) [#/Vol] 4.32 10*6/uL 4.2-5.4 [facility] Serum [id number] measu rement by electrophoresisOrdered By: Jose Ramon Mckenzie on 09-24-2023 Alpha 1 globulin Elph [Mass/Vol] 0.3 g/dL 0.0-0.4 [facility] Alpha 1 globulin Elph [Mass/Vol] 1.0 g/dL 0.4-1.0 [facility] Serum globulin measurement ( mass/volume)Ordered By: Jose Ramon Mckenzie on 09-24-2023 Globulin (S) [Mass/Vol] 3.6 g/dL 2.2-3.9 [facility] Serum immunoglobulin kappa l ight chains/immunoglobulin lambda light chains mass ratioOrdered By: Jose Ramon Mckenzie on 09-24-2023 Immunoglobulin light chains.kappa/Immunoglobulin light chains.lambda (S) [Mass ratio] 1.34 0.26-1.65 [facility] Comment on above: Performed at: [place] [id number] Director: Herb Kincaid PhD, Phone: [phone] Serum or plasma IgA measurem ent (mass/volume)Ordered By: Jose Ramon Mckenzie on 09-24-2023 IgA [Mass/Vol] 208 mg/dL 87-352 [facility] Serum or plasma IgG measurem ent (mass/volume)Ordered By: Jose Ramon Mckenzie on 09-24-2023 IgG [Mass/Vol] 1235 mg/dL [phone] [facility] Serum or plasma beta globuli n measurement by electrophoresis (mass/volume)Ordered By: Jose Ramon Mckenzie on 09-24-2023 Beta globulin Elph [Mass/Vol] 1.1 g/dL 0.7-1.3 [facility] Serum or plasma calcium jatin urement (mass/volume)Ordered By: Jose Ramon Mckenzie on 09-24-2023 Calcium [Mass/Vol] 9.7 mg/dL 8.5-10.1 [facility] Serum or plasma creatinine m easurement (mass/volume)Ordered By: Jose Ramon Mckenzie on 09-24-2023 Creatinine [Mass/Vol] 1.00 mg/dL 0.55-1.02 [facility] Comment on above: The validity of the calculated GFR & GFRAA in patients over 70 years has not been determined. Clinical correlation is essential. Serum or plasma gamma globul in measurement by electrophoresis (mass/volume)Ordered By: Jose Ramon Mckenzie on 09-24-2023 Gamma globulin Elph [Mass/Vol] 1.2 g/dL 0.4-1.8 [facility] Serum or plasma immunoelectr ophoresis interpretation (nominal result)Ordered By: Jose Ramon Mckenzie on 09-24-2023 Interpretation IEP [Interp] Comment . [facility] Comment on above: No monoclonality det ected. Serum or plasma immunoglobul in kappa light chains measurement (mass/volume)Ordered By: Jose Ramon Mckenzie on 09-24-2023 Immunoglobulin light chains.kappa [Mass/Vol] 43.3 mg/L 3.3-19.4 [facility] Serum or plasma urea nitroge n measurement (mass/volume)Ordered By: Jose Ramon Mckenzie on 09-24-2023 Urea nitrogen [Mass/Vol] 31 mg/dL 7-18 [facility] Thin prep Papanicolaou smear with manual screeningOrdered By: Jose Ramon Mckenzie on 09-24-2023 Thin prep Papanicolaou smear with manual screening 3.7 g/dL 3.2-5.0 [facility] Thin prep Papanicolaou smear with manual screening 20 U/L 15-37 [facility] Thin prep Papanicolaou smear with manual screening 5 5-15 [facility] Thin prep Papanicolaou smear with manual screening 1.1 0.7-1.7 [facility] Total protein bloodOrdered B y: Jose Ramon Mckenzie on 09-24-2023 Protein [Mass/Vol] 7.3 g/dL 6.0-8.5 [facility] - Chemistry and C hemistry - challengeon 07-25-2023 Bilirubin Ql (U) Negative [facility] Glucose Ql (U) Negative [facility] Ketones Ql (U) Negative [facility] pH (U) 6.5 [pH] [facility] Specific gravity (U) [Rel density] 1.010 [facility] Urobilinogen (U) [Mass/Vol] Negative [facility] Laboratory - Hematology and Cell countson 07-25-2023 Hemoglobin Ql (U) Negative [facility] Laboratory - Specimen inform ationon 07-25-2023 Clarity (U) Clear [facility] Color (U) YELLOW [facility] Laboratory - Urinalysison Nitrite Ql (U) Negative [facility] Protein Ql (U) Negative [facility] No Panel Informationon 07-25 Influenza Types A,B Rapid (Clinic) Negative [facility] POC SARS CoV-2 Antigen Negative [facility] Urine Leukocytes Positive [facility] Urine Non-Hemolyzed Blood [facility] Absolute lymphocyte countOrd ered By: Doris Yip on 07-02-2023 Lymphocytes Auto (Unsp spec) [#/Vol] 2.19 10*3/uL 0.83-4.51 [facility] Basophil percentageOrdered B y: Doris Yip on 07-02-2023 Basophils/100 WBC (Bld) 0.5 % 0-1 [facility] Bilirubin [Mass/Vol] 0.30 mg/dL 0.20-1.00 [facility] Comment on above: For patients on eltr ombopag therapy, use of Dimension [place] TBIL is not recommended. Chloride [Moles/Vol] 104 mmol/L 98-107 [facility] Eosinophils/100 WBC (Bld) 1.3 % 0-5 [facility] Glucose [Mass/Vol] 174 mg/dL 74-106 [facility] Comment on above: Fasting Glucose resu lt greater than or equal to 126 mg/dL suggests DIABETES MELLITUS per A.D.A. criteria. Neutrophils (Bld) [#/Vol] 5.7 10*3/uL 2.0-7.7 [facility] Neutrophils/100 WBC (Bld) 66.2 % 47-70 [facility] Potassium [Moles/Vol] 4.0 mmol/L 3.5-5.1 [facility] Protein [Mass/Vol] 7.4 g/dL 6.4-8.2 [facility] Sodium [Moles/Vol] 138 mmol/L 136-145 [facility] WBC (Bld) [#/Vol] 8.6 10*3/uL 4.4-11.0 [facility] Bilirubin Test strip Ql (U)O rdered By: Doris Yip on 07-02-2023 Bilirubin Ql (U) Negative Negative [facility] Blood erythrocytes count (nu mber/volume)Ordered By: Doris Yip on 07-02-2023 RBC (Bld) [#/Vol] 4.35 10*6/uL 4.2-5.4 [facility] Blood hemoglobin measurement (mass/volume)Ordered By: Doris Yip on 07-02-2023 Hemoglobin (Bld) [Mass/Vol] 12.4 g/dL 12.0-15. 0 [facility] Blood lymphocytes/100 leukoc ytesOrdered By: Doris Yip on 07-02-2023 Lymphocytes/100 WBC (Bld) 25.5 % 19-41 [facility] Blood monocytes/100 leukocyt esOrdered By: Doris Yip on 07-02-2023 Monocytes/100 WBC (Bld) 5.9 % 0-10 [facility] Blood platelet mean volumeOr dered By: Doris Yip on 07-02-2023 Platelet mean volume (Bld) [Entitic vol] 9.8 fL 6.2-12.0 [facility] Determination of erythrocyte mean corpuscular volume (MCV)Ordered By: Doris Yip on 07-02-2023 MCV (RBC) [Entitic vol] 89.9 fL 81-99 [facility] Erythrocyte sedimentation ra teOrdered By: Doris Yip on 07-02-2023 ESR (Bld) [Velocity] 29 mm/h 0-30 [facility] Hematocrit Auto (Bld) [Volum e fraction]Ordered By: Doris Yip on 07-02-2023 Hematocrit (Bld) [Volume fraction] 39.1 % 37-47 [facility] Ketones Test strip Ql (U)Ord ered By: Doris Yip on 07-02-2023 Ketones Ql (U) Negative Negative [facility] Laboratory - Chemistry and C hemistry - challengeOrdered By: Doris Yip on 07-02-2023 ALP [Catalytic activity/Vol] 66 U/L 45-117 [facility] ALT [Catalytic activity/Vol] 28 U/L 13-56 [facility] CO2 [Moles/Vol] 27.0 mmol/L 21.0-32.0 [facility] Globulin (S) [Mass/Vol] 4.1 g/dL 2.2-4.2 [facility] Urea nitrogen/Creatinine [Mass ratio] 26.0 mg/mg 10-20 [facility] Laboratory - Hematology and Cell countsOrdered By: Doris Yip on 07-02-2023 Erythrocyte distribution width (RBC) [Entitic vol] 51.2 fL 35.1-43.9 [facility] Erythrocyte distribution width (RBC) [Ratio] 15.4 % 11.6-14.6 [facility] Immature granulocytes/100 WBC (Bld) 0.600 % 0.0-0.9 [facility] Comment on above: IG% - Immature Granu locytes (promyelocytes, myelocytes and metamyelocytes) > 1% indicates that a LEFT SHIFT is Present. MCH (RBC) [Entitic mass] 28.5 pg 27.0-32.0 [facility] Nucleated RBC/100 WBC (Bld) [Ratio] 0 % 0-5 [facility] MCHC Auto (RBC) [Mass/Vol]Or dered By: Doris Yip on 07-02-2023 MCHC (RBC) [Mass/Vol] 31.7 g/dL 32-36 [facility] Nitrite Test strip Ql (U)Ord ered By: Doris Yip on 07-02-2023 Nitrite Ql (U) Negative Negative [facility] No Panel InformationOrdered By: Doris Yip on 07-02-2023 Miscellaneous Test Comment MAILED SPECIMEN [facility] Estimated GFR (MDRD) Amer 78 mL/min >60 [facility] Comment on above: GFR Calc Estimated GFR (MDRD) Non-Af Amer 65 mL/min >60 [facility] Comment on above: Non- GFR Calc Hepatitis B Surface Antigen Non-Reactive Nonrea ctive [facility] Hepatitis C Antibody Non-Reactive Nonreactive [facility] Comment on above: Non Reactive: < 0.8 Equivocal: >/= 0.8 to < 1.0 Reactive: >/= 1.0The CDC recommends that a reactive/equivocal HCV antibody result be followed up by the HCV Nucleic Acid Amplificationtest (475006) Platelets bldOrdered By: Liyah Yip on 07-02-2023 Platelets (Bld) [#/Vol] 298 10*3/uL 150-450 [facility] Protein Test strip Ql (U)Ord ered By: Doris Yip on 07-02-2023 Protein Ql (U) Negative Negative [facility] Serum hepatitis B virus surf williams antibody IgG detectionOrdered By: Doris Yip on 07-02-2023 HBV surface IgG Ql (S) Non-Reactive [facility] Comment on above: Non Reactive: Incons istent with immunity less than <10 mIU/mL Reactive: Consistent with immunity greater than or equal to 10 mIU/mL Serum or plasma C reactive p rotein measurement (mass/volume)Ordered By: Doris Yip on 07-02-2023 CRP [Mass/Vol] 11.40 mg/L 0.0-3.0 [facility] Comment on above: C-Reactive Protein ( CRP) provides useful information for thediagnosis, therapy and monitoring of inflammatory processesand associated diseases. For the evaluation of Relative Riskfor Cardiovascular Disease, a High Sensitivity CRP (HSCRP)should be ordered. Serum or plasma albumin jatin urement (mass/volume)Ordered By: Doris Yip on 07-02-2023 Albumin [Mass/Vol] 3.3 g/dL 3.2-5.0 [facility] Serum or plasma albumin/glob ulin mass ratioOrdered By: Doris Yip on 07-02-2023 Albumin/Globulin [Mass ratio] 0.8 {ratio} 0.9-2.4 [facility] Serum or plasma calcium jatin urement (mass/volume)Ordered By: Doris Yip on 07-02-2023 Calcium [Mass/Vol] 8.8 mg/dL 8.5-10.1 [facility] Serum or plasma creatinine m easurement (mass/volume)Ordered By: Doris Yip on 07-02-2023 Creatinine [Mass/Vol] 0.92 mg/dL 0.55-1.02 [facility] Comment on above: The validity of the calculated GFR & GFRAA in patients over 70 years has not been determined. Clinical correlation is essential. Serum or plasma urea nitroge n measurement (mass/volume)Ordered By: Doris Yip on 07-02-2023 Urea nitrogen [Mass/Vol] 24 mg/dL 7-18 [facility] Thin prep Papanicolaou smear with manual screeningOrdered By: Doris Yip on 07-02-2023 Thin prep Papanicolaou smear with manual screening 13 U/L 15-37 [facility] Thin prep Papanicolaou smear with manual screening 7 5-15 [facility] Urine blood detectionOrdered By: Doris Yip on 07-02-2023 RBC Ql (U) 10 /ul Negative [facility] Urine clarityOrdered By: Liyah Yip on 07-02-2023 Clarity (U) Clear Clear [facility] Urine color determinationOrd ered By: Doris Yip on 07-02-2023 Color (U) Yellow Yellow [facility] Urine creatinine measurement (mass/volume)Ordered By: Doris Yip on 07-02-2023 Creatinine (U) [Mass/Vol] 100.00 mg/dL NO RANGE EST. [facility] Urine glucose detectionOrder ed By: Doris Yip on 07-02-2023 Glucose Ql (U) Normal mg/dl Normal [facility] Urine leukocyte esterase det ection by dipstickOrdered By: Doris Yip on 07-02-2023 Leukocyte esterase Test strip Ql (U) 100 /ul Negative [facility] Urine pHOrdered By: Doris berman on 07-02-2023 pH (U) 5.0 [pH] 5.0 - 8.0 [facility] Urine protein measurement (m ass/volume)Ordered By: Doris Yip on 07-02-2023 Protein (U) [Mass/Vol] 12.0 mg/dL 0.0-11.8 [facility] Urine protein/creatinine mas s ratioOrdered By: Doris Yip on 07-02-2023 Protein/Creatinine (U) [Mass ratio] 120 mg/g CRE 0-200 [facility] Urine specific gravity measu rementOrdered By: Doris Yip on 07-02-2023 Specific gravity (U) [Rel density] 1.020 1.002-1.030 [facility] Urobilinogen Auto test strip Ql (U)Ordered By: Doris Yip on 07-02-2023 Urobilinogen Ql (U) Normal mg/dl Normal [facility] Anaerobic cultureOrdered By: Mari Veliz on 06-08-2023 Bacteria identified Anaer cx Nom (Unsp spec) [facility] Bacteria identified Anaer cx Nom (Unsp spec) [facility] Bacteria identified Cx Nom ( Wound)Ordered By: Mari Veliz on 06-08-2023 Wound Culture Corynebacterium minutissimum [facility] Wound Culture [facility]ium [facility] Gram stain for investigation of transfusion reactionOrdered By: Mari Veliz on 06-08-2023 Microscopic observation Gram stain Nom (Unsp spec) [facility] Microscopic observation Gram stain Nom (Unsp spec) [facility] Bacteria identified Anaer cx Nom (Unsp spec)Ordered By: Mari Veliz on 05-18-2023 Anaerobic Culture Prevotella bivia [facility] Bacteria identified Cx Nom ( Wound)Ordered By: Mari Veliz on 05-18-2023 Wound Culture Staphylococcus epidermidis [facility] Wound Culture Staphylococcus epidermidis [facility] Gram stain for investigation of transfusion reactionOrdered By: Mari Veliz on 05-18-2023 Microscopic observation Gram stain Nom (Unsp spec) [facility] Microscopic observation Gram stain Nom (Unsp spec) [facility] XR CHEST 2V FRONTAL/LATon [facility] Absolute lymphocyte countOrd ered By: Jose Ramon Mckenzie on 04-13-2023 Lymphocytes Auto (Unsp spec) [#/Vol] 2.40 10*3/uL 0.83-4.51 [facility] Basophil percentageOrdered B y: Jose Ramon Mckenzie on 04-13-2023 Basophil percentage 0-5 SEEN /hpf 0-5 [facility] Basophil percentage 3.4 mg/dL 2.5-4.9 [facility] Basophils/100 WBC (Bld) 0.5 % 0-1 [facility] Bilirubin [Mass/Vol] 0.30 mg/dL 0.20-1.00 [facility] Comment on above: For patients on eltr ombopag therapy, use of Dimension [place] TBIL is not recommended. Chloride [Moles/Vol] 105 mmol/L 98-107 [facility] Eosinophils/100 WBC (Bld) 1.8 % 0-5 [facility] Glucose [Mass/Vol] 144 mg/dL 74-106 [facility] Comment on above: Fasting Glucose resu lt greater than or equal to 126 mg/dL suggests DIABETES MELLITUS per A.D.A. criteria. LDH [Catalytic activity/Vol] 166 U/L 84-246 [facility] Neutrophils (Bld) [#/Vol] 3.2 10*3/uL 2.0-7.7 [facility] Neutrophils/100 WBC (Bld) 50.5 % 47-70 [facility] Potassium [Moles/Vol] 3.9 mmol/L 3.5-5.1 [facility] Protein [Mass/Vol] 7.9 g/dL 6.4-8.2 [facility] Sodium [Moles/Vol] 138 mmol/L 136-145 [facility] WBC (Bld) [#/Vol] 6.3 10*3/uL 4.4-11.0 [facility] Bilirubin Test strip Ql (U)O rdered By: Jose Ramon Mckenzie on 04-13-2023 Bilirubin Ql (U) Negative Negative [facility] Blood erythrocytes count (nu mber/volume)Ordered By: Jose Ramon Mckenzie on 04-13-2023 RBC (Bld) [#/Vol] 3.96 10*6/uL 4.2-5.4 [facility] Blood hemoglobin measurement (mass/volume)Ordered By: Jose Ramon Mckenzie on 04-13-2023 Hemoglobin (Bld) [Mass/Vol] 10.9 g/dL 12.0-15. 0 [facility] Blood lymphocytes/100 leukoc ytesOrdered By: Jose Ramon Mckenzie on 04-13-2023 Lymphocytes/100 WBC (Bld) 38.4 % 19-41 [facility] Blood monocytes/100 leukocyt esOrdered By: Jose Ramon Mckenzie on 04-13-2023 Monocytes/100 WBC (Bld) 8.0 % 0-10 [facility] Blood platelet mean volumeOr dered By: Jose Ramon Mckenzie on 04-13-2023 Platelet mean volume (Bld) [Entitic vol] 9.1 fL 6.2-12.0 [facility] Determination of erythrocyte mean corpuscular volume (MCV)Ordered By: Jose Ramon Mckenzie on 04-13-2023 MCV (RBC) [Entitic vol] 89.1 fL 81-99 [facility] Erythropoietin (EPO) QnOrder ed By: Jose Ramon Mckenzie on 04-13-2023 Erythropoietin 25.8 mIU/mL High 2.6-18.5 [facility] Comment on above: [employer] el DxI 800 Immunoassay SystemValues obtained with different assay methods or kits cannotbe used interchangeably. Results cannot be interpreted asabsolute evidence of the presence or absence of malignantdisease.Performed at: [facility] [id number] Director: Herb Kincaid PhD, Phone: [phone] Folate [Mass/Vol]Ordered By: Jose Ramon Mckenzie on 04-13-2023 Folate 23.70 ng/mL 3.1-55.4 [facility] HBV core Ab Ql (S)Ordered By : Joes Ramon Mckenzie on 04-13-2023 Hepatitis B Core Total Antibody Negative Negative [facility] HBV surface Ag IA QlOrdered By: Jose Ramon Mckenzie on 04-13-2023 Hepatitis B Surface Antigen Negative Negative [facility] Hematocrit Auto (Bld) [Volum e fraction]Ordered By: Jose Ramon Mckenzie on 04-13-2023 Hematocrit (Bld) [Volume fraction] 35.3 % 37-47 [facility] Hemoglobin (Reticulocytes) [ Entitic mass]Ordered By: Jose Ramon Mckenzie on 04-13-2023 Reticulocyte Hemoglobin Equivalent 32.3 pg 30-35 [facility] Hemoglobin in reticulocytes (mass per reticulocyte)Ordered By: Jose Ramon Mckenzie on 04-13-2023 Hemoglobin (Reticulocytes) [Entitic mass] 32.3 pg 30-35 [facility] Interpretation of serum or p lasma protein pattern by immunofixation (narrative resultOrdered By: Jose Ramon Mckenzie on 04-13-2023 Protein Fractions Immunofixation Arnav [Interp] See comment [facility] Comment on above: NOT OBSERVED Iron (Unsp spec) [Mass/Mass] Ordered By: Jose Ramon Maine on 04-13-2023 Iron [Mass/Vol] 55 ug/dL 50-170 [facility] Iron measurement (mass/mass) Ordered By: Jose Ramon Mckenzie on 04-13-2023 Iron (Unsp spec) [Mass/Mass] 55 ug/dL 50-170 [facility] Iron saturation [Mass fracti on]Ordered By: Jose Ramon Mckenzie on 04-13-2023 Iron Saturation 20.3 % 15.0-55.0 [facility] Ketones Test strip Ql (U)Ord ered By: Jose Ramon Magaly on 04-13-2023 Ketones Ql (U) Negative Negative [facility] Laboratory - Chemistry and C hemistry - challengeOrdered By: Jose Ramon Maine on 04-13-2023 ALP [Catalytic activity/Vol] 103 U/L 45-117 [facility] ALT [Catalytic activity/Vol] 23 U/L 13-56 [facility] Amylase [Catalytic activity/Vol] 40 U/L 5-55 [facility] CO2 [Moles/Vol] 28.0 mmol/L 21.0-32.0 [facility] Cobalamin (Vitamin B12) [Mass/Vol] 936 pg/mL High 211-911 [facility] Free T4 [Mass/Vol] 0.98 ng/dL 0.76-1.46 [facility] Magnesium [Mass/Vol] 1.9 mg/dL 1.6-2.6 [facility] Urea nitrogen/Creatinine [Mass ratio] 22.8 mg/mg 10-20 [facility] Laboratory - Hematology and Cell countsOrdered By: [facility] on 04-13-2023 Erythrocyte distribution width (RBC) [Entitic vol] 51.5 fL 35.1-43.9 [facility] Erythrocyte distribution width (RBC) [Ratio] 15.8 % 11.6-14.6 [facility] Immature granulocytes/100 WBC (Bld) 0.800 % 0.0-0.9 [facility] Comment on above: IG% - Immature Granu locytes (promyelocytes, myelocytes and metamyelocytes) > 1% indicates that a LEFT SHIFT is Present. MCH (RBC) [Entitic mass] 27.5 pg 27.0-32.0 [facility] Nucleated RBC/100 WBC (Bld) [Ratio] 0 % 0-5 [facility] MCHC Auto (RBC) [Mass/Vol]Or dered By: Jose Ramon Mckenzie on 04-13-2023 MCHC (RBC) [Mass/Vol] 30.9 g/dL 32-36 [facility] Mucus LM Ql (Urine sed)Order ed By: Jose Ramon Mckenzie on 04-13-2023 Mucus Ql (Urine sed) 0 SEEN /hpf [facility] Nitrite Test strip Ql (U)Ord ered By: Jose Ramon Mckenzie on 04-13-2023 Nitrite Ql (U) Negative Negative [facility] No Panel InformationOrdered By: Jose Ramon Mckenzie on 04-13-2023 Addendum Document Comment . [facility] Comment on above: Protein electrophore sis scan will follow via computer,mail, or crane ladle person delivery. Estimated GFR (MDRD) Amer 70 mL/min >60 [facility] Comment on above: GFR Calc Estimated GFR (MDRD) Non-Af Amer 58 mL/min >60 [facility] Comment on above: Non- GFR Calc Free Lambda Light Chains, Quant 37.5 mg/L 5.7-26.3 [facility] Free Triiodothyronine (T3) pg/dL 3.1 pg/mL 2.18-3.98 [facility] Hepatitis B Surface Antibody Non-Reactive . [facility] Comment on above: Non Reactive: Incons istent with immunity, less than 10 mIU/mL Reactive: Consistent with immunity, greater than 9.9 mIU/mL Hepatitis C Antibody Comment Comment . [facility] Comment on above: Not infected with HC V unless early or acute infection issuspected (which may be delayed in an immunocompromisedindividual), or other evidence exists to indicate HCVinfection. Immature Reticulocyte Fraction 21.40 % High 3.00-15.90 [facility] Reticulocyte Count 2.47 % High 0.5-1.5 [facility] Thyroid Stimulating Hormone (TSH) 1.48 uIU/mL 0.358-3.74 [facility] Total Iron Binding Capacity 271 ug/dL 250-450 [facility] Platelets bldOrdered By: Eugene Mckenzie on 04-13-2023 Platelets (Bld) [#/Vol] 281 10*3/uL 150-450 [facility] Protein Test strip Ql (U)Ord ered By: Jose Ramon Mckenzie on 04-13-2023 Protein Ql (U) 15 mg/dl Negative [facility] Serum [id number] measu rement by electrophoresisOrdered By: Jose Ramon Mckenzie on 04-13-2023 Alpha 1 globulin Elph [Mass/Vol] 0.3 g/dL 0.0-0.4 [facility] Alpha 1 globulin Elph [Mass/Vol] 1.1 g/dL 0.4-1.0 [facility] Serum globulin measurement ( mass/volume)Ordered By: Jose Ramon Mckenzie on 04-13-2023 Globulin (S) [Mass/Vol] 4.1 g/dL 2.2-3.9 [facility] Serum hepatitis B virus core antibody detectionOrdered By: Jose Ramon Mckenzie on 04-13-2023 HBV core Ab Ql (S) Negative Negative [facility] Serum immunoglobulin kappa l ight chains/immunoglobulin lambda light chains mass ratioOrdered By: Jose Ramon Mckenzie on 04-13-2023 Immunoglobulin light chains.kappa/Immunoglobulin light chains.lambda (S) [Mass ratio] 1.55 0.26-1.65 [facility] Serum or plasma IgA measurem ent (mass/volume)Ordered By: Jose Ramon Mckenzie on 04-13-2023 IgA [Mass/Vol] 274 mg/dL 87-352 [facility] Serum or plasma IgG measurem ent (mass/volume)Ordered By: Jose Ramon Mckenzie on 04-13-2023 IgG [Mass/Vol] 1459 mg/dL [id number] [facility] Serum or plasma IgM measurem ent (mass/volume)Ordered By: Jose Ramon Mckenzie on 04-13-2023 IgM [Mass/Vol] 121 mg/dL 26-217 [facility] Serum or plasma albumin jatin urement (mass/volume)Ordered By: Jose Ramon Mckenzie on 04-13-2023 Albumin [Mass/Vol] 3.0 g/dL 2.9-4.4 [facility] Serum or plasma albumin/glob ulin mass ratioOrdered By: Jose Ramon Mckenzie on 04-13-2023 Albumin/Globulin [Mass ratio] 0.6 {ratio} 0.9-2.4 [facility] Serum or plasma beta globuli n measurement by electrophoresis (mass/volume)Ordered By: Jose Ramon Mckenzie on 04-13-2023 Beta globulin Elph [Mass/Vol] 1.1 g/dL 0.7-1.3 [facility] Serum or plasma calcium jatin urement (mass/volume)Ordered By: Jose Ramon Mckenzie on 04-13-2023 Calcium [Mass/Vol] 8.9 mg/dL 8.5-10.1 [facility] Serum or plasma creatinine m easurement (mass/volume)Ordered By: Jose Ramon Mckenzie on 04-13-2023 Creatinine [Mass/Vol] 1.01 mg/dL 0.55-1.02 [facility] Comment on above: The validity of the calculated GFR & GFRAA in patients over 70 years has not been determined. Clinical correlation is essential. Serum or plasma erythropoiet in (EPO) measurement (units/volume)Ordered By: Jose Ramon Mckenzie on 04-13-2023 Erythropoietin (EPO) Qn 25.8 mIU/mL High 2.6-18.5 [facility] Comment on above: [employer] DxI 800 Immunoassay SystemValues obtained with different assay methods or kits cannotbe used interchangeably. Results cannot be interpreted asabsolute evidence of the presence or absence of malignantdisease.Performed at: [facility] [employer] [id number] Director: Herb Kincaid PhD, Phone: [phone] Serum or plasma ferritin karina surement (mass/volume)Ordered By: Jose Ramon Mckenzie on 04-13-2023 Ferritin [Mass/Vol] 334 ng/mL High 8-252 [facility] Serum or plasma folate measu rement (mass/volume)Ordered By: Jose Ramon Mckenzie on 04-13-2023 Folate [Mass/Vol] 23.70 ng/mL 3.1-55.4 [facility] Serum or plasma gamma globul in measurement by electrophoresis (mass/volume)Ordered By: Jose Ramon Mckenzie on 04-13-2023 Gamma globulin Elph [Mass/Vol] 1.5 g/dL 0.4-1.8 [facility] Serum or plasma hepatitis B virus surface antigen detection by immunoassayOrdered By: Jose Ramon Mckenzie on 04-13-2023 HBV surface Ag IA Ql Negative Negative [facility] Serum or plasma immunoelectr ophoresis interpretation (nominal result)Ordered By: Jose Ramon Mckenzie on 04-13-2023 Interpretation IEP [Interp] Comment . [facility] Comment on above: No monoclonality det ected. Serum or plasma immunoglobul in kappa light chains measurement (mass/volume)Ordered By: Jose Ramon Mckenzie on 04-13-2023 Immunoglobulin light chains.kappa [Mass/Vol] 58.1 mg/L 3.3-19.4 [facility] Serum or plasma iron saturat ion measurement (mass fraction)Ordered By: Jose Ramon Mckenzie on 04-13-2023 Iron saturation [Mass fraction] 20.3 % 15.0-55.0 [facility] Serum or plasma urea nitroge n measurement (mass/volume)Ordered By: Jose Ramon Mckenzie on 04-13-2023 Urea nitrogen [Mass/Vol] 23 mg/dL 7-18 [facility] Squamous epithelial cells de tection in urine sediment by light microscopyOrdered By: Jose Ramon Mckenzie on 04-13-2023 Epithelial cells.squamous LM Ql (Urine sed) 0-5 SEEN /hpf 5-10 [facility] Thin prep Papanicolaou smear with manual screeningOrdered By: Jose Ramon Mckenzie on 04-13-2023 Thin prep Papanicolaou smear with manual screening 13 U/L 15-37 [facility] Thin prep Papanicolaou smear with manual screening 5 5-15 [facility] Thin prep Papanicolaou smear with manual screening 0.8 0.7-1.7 [facility] Total protein bloodOrdered B y: Jose Ramon Mckenzie on 04-13-2023 Protein [Mass/Vol] 7.1 g/dL 6.0-8.5 [facility] Trichomonas screening testOr dered By: Jose Ramon Mckenzie on 04-13-2023 Phosphorus Level 3.4 mg/dL 2.5-4.9 [facility] Urine blood detectionOrdered By: Jose Ramon Mckenzie on 04-13-2023 RBC Ql (U) 10 /ul Negative [facility] RBC Ql (U) 0-5 SEEN /hpf 0-5 [facility] Urine clarityOrdered By: Eugene Mckenzie on 04-13-2023 Clarity (U) Sl. Cloudy Clear [facility] Urine color determinationOrd ered By: Jose Ramon Mckenzie on 04-13-2023 Color (U) Yellow Yellow [facility] Urine glucose detectionOrder ed By: Jose Ramon Mckenzie on 04-13-2023 Glucose Ql (U) Normal mg/dl Normal [facility] Urine leukocyte esterase det ection by dipstickOrdered By: Jose Ramon Mckenzie on 04-13-2023 Leukocyte esterase Test strip Ql (U) 25 /ul Negative [facility] Urine pHOrdered By: Jose Ramon meyer on 04-13-2023 pH (U) 6.0 [pH] 5.0 - 8.0 [facility] Urine sediment bacteria coun t by microscopy (number/high power field)Ordered By: Jose Ramon Mckenzie on 04-13-2023 Bacteria LM.HPF (Urine sed) [#/Area] 0 /[HPF] None Seen [facility] Urine specific gravity measu rementOrdered By: Jose Ramon Mckenzie on 04-13-2023 Specific gravity (U) [Rel density] 1.015 1.002-1.030 [facility] Urobilinogen Auto test strip Ql (U)Ordered By: Jose Ramon Mckenzie on 04-13-2023 Urobilinogen Ql (U) Normal mg/dl Normal [facility] XR CHEST 2V FRONTAL/LATon [facility] Basophil percentageOrdered B y: Kathleen De Leon on 03-28-2023 Chloride [Moles/Vol] 108 mmol/L 98-107 [facility] Glucose [Mass/Vol] 112 mg/dL 74-106 [facility] Comment on above: Fasting Glucose resu lt from 100 to 125 mg/dL suggests IMPAIRED HOMEOSTASIS per A.D.A. criteria. Potassium [Moles/Vol] 3.9 mmol/L 3.5-5.1 [facility] Sodium [Moles/Vol] 141 mmol/L 136-145 [facility] WBC (Bld) [#/Vol] 8.4 10*3/uL 4.4-11.0 [facility] Blood erythrocytes count (nu mber/volume)Ordered By: Kathleen De Leon on 03-28-2023 RBC (Bld) [#/Vol] 3.34 10*6/uL 4.2-5.4 [facility] Blood hemoglobin measurement (mass/volume)Ordered By: Kathleen De Leon on 03-28-2023 Hemoglobin (Bld) [Mass/Vol] 9.4 g/dL 12.0-15. 0 [facility] Blood platelet mean volumeOr dered By: Kathleen De Leon on 03-28-2023 Platelet mean volume (Bld) [Entitic vol] 9.1 fL 6.2-12.0 [facility] Determination of erythrocyte mean corpuscular volume (MCV)Ordered By: Kathleen De Leon on 03-28-2023 MCV (RBC) [Entitic vol] 92.8 fL 81-99 [facility] Hematocrit Auto (Bld) [Volum e fraction]Ordered By: Kathleen De Leon on 03-28-2023 Hematocrit (Bld) [Volume fraction] 31.0 % 37-47 [facility] Laboratory - Chemistry and C hemistry - challengeOrdered By: [facility] Moises on 03-28-2023 CO2 [Moles/Vol] 26.0 mmol/L 21.0-32.0 [facility] Urea nitrogen/Creatinine [Mass ratio] 17.3 mg/mg 10-20 [facility] Laboratory - Hematology and Cell countsOrdered By: Kathleen De Leon on 03-28-2023 Erythrocyte distribution width (RBC) [Entitic vol] 50.4 fL 35.1-43.9 [facility] Erythrocyte distribution width (RBC) [Ratio] 14.7 % 11.6-14.6 [facility] MCH (RBC) [Entitic mass] 28.1 pg 27.0-32.0 [facility] MCHC Auto (RBC) [Mass/Vol]Or dered By: Kathleen De Leon on 03-28-2023 MCHC (RBC) [Mass/Vol] 30.3 g/dL 32-36 [facility] No Panel InformationOrdered By: Kathleen De Leon on 03-28-2023 Estimated GFR (MDRD) Amer 43 mL/min >60 [facility] Comment on above: GFR Calc Estimated GFR (MDRD) Non-Af Amer 35 mL/min >60 [facility] Comment on above: Non- GFR Calc Platelets bldOrdered By: Greg De Leon on 03-28-2023 Platelets (Bld) [#/Vol] 525 10*3/uL 150-450 [facility] Serum or plasma calcium jatin urement (mass/volume)Ordered By: Kathleen De Leon on 03-28-2023 Calcium [Mass/Vol] 8.6 mg/dL 8.5-10.1 [facility] Serum or plasma creatinine m easurement (mass/volume)Ordered By: Kathleen De Leon on 03-28-2023 Creatinine [Mass/Vol] 1.56 mg/dL 0.55-1.02 [facility] Comment on above: The validity of the calculated GFR & GFRAA in patients over 70 years has not been determined. Clinical correlation is essential. Serum or plasma urea nitroge n measurement (mass/volume)Ordered By: Kathleen De Leon on 03-28-2023 Urea nitrogen [Mass/Vol] 27 mg/dL 7-18 [facility] Thin prep Papanicolaou smear with manual screeningOrdered By: Kathleen De Leon on 03-28-2023 Thin prep Papanicolaou smear with manual screening 7 5-15 [facility] - CoagulationOrde red By: Gerard Pereyra on 03-13-2023 INR Coag (Bld) [Relative time] 2.5 {INR} [facility] Comment on above: Critical Value > 4.0 Whole blood prothrombin time Ordered By: Gerard Pereyra on 03-13-2023 PT Coag (Bld) [Time] 27.2 s 11.7-14.9 [facility] Absolute lymphocyte countOrd ered By: Milton Caldwell on 03-12-2023 Lymphocytes Auto (Unsp spec) [#/Vol] 2.46 10*3/uL 0.83-4.51 [facility] Basophil percentageOrdered B y: Milton Caldwell on 03-12-2023 Basophils/100 WBC (Bld) 0.5 % 0-1 [facility] Chloride [Moles/Vol] 100 mmol/L 98-107 [facility] Eosinophils/100 WBC (Bld) 0.6 % 0-5 [facility] Glucose [Mass/Vol] 191 mg/dL 74-106 [facility] Comment on above: Fasting Glucose resu lt greater than or equal to 126 mg/dL suggests DIABETES MELLITUS per A.D.A. criteria. Neutrophils (Bld) [#/Vol] 11.2 10*3/uL 2.0-7.7 [facility] Neutrophils/100 WBC (Bld) 73.5 % 47-70 [facility] Potassium [Moles/Vol] 4.1 mmol/L 3.5-5.1 [facility] Sodium [Moles/Vol] 133 mmol/L 136-145 [facility] WBC (Bld) [#/Vol] 15.2 10*3/uL 4.4-11.0 [facility] Blood erythrocytes count (nu mber/volume)Ordered By: Milton Caldwell on 03-12-2023 RBC (Bld) [#/Vol] 3.55 10*6/uL 4.2-5.4 [facility] Blood hemoglobin measurement (mass/volume)Ordered By: Milton Caldwell on 03-12-2023 Hemoglobin (Bld) [Mass/Vol] 10.0 g/dL 12.0-15. 0 [facility] Blood lymphocytes/100 leukoc ytesOrdered By: Milton Caldwell on 03-12-2023 Lymphocytes/100 WBC (Bld) 16.2 % 19-41 [facility] Blood monocytes/100 leukocyt esOrdered By: Milton Caldwell on 03-12-2023 Monocytes/100 WBC (Bld) 8.3 % 0-10 [facility] Blood platelet mean volumeOr dered By: Milton Caldwell on 03-12-2023 Platelet mean volume (Bld) [Entitic vol] 9.7 fL 6.2-12.0 [facility] Determination of erythrocyte mean corpuscular volume (MCV)Ordered By: Milton Caldwell on 03-12-2023 MCV (RBC) [Entitic vol] 92.4 fL 81-99 [facility] Hematocrit Auto (Bld) [Volum e fraction]Ordered By: Milton Caldwell on 03-12-2023 Hematocrit (Bld) [Volume fraction] 32.8 % 37-47 [facility] Laboratory - Chemistry and C hemistry - challengeOrdered By: Milton Caldwell on 03-12-2023 CO2 [Moles/Vol] 24.0 mmol/L 21.0-32.0 [facility] Natriuretic peptide B (Bld) [Mass/Vol] 34.7 pg/mL 0-100 [facility] Urea nitrogen/Creatinine [Mass ratio] 22.3 mg/mg 10-20 [facility] Laboratory - Hematology and Cell countsOrdered By: Milton Caldwell on 03-12-2023 Erythrocyte distribution width (RBC) [Entitic vol] 49.7 fL 35.1-43.9 [facility] Erythrocyte distribution width (RBC) [Ratio] 14.7 % 11.6-14.6 [facility] Immature granulocytes/100 WBC (Bld) 0.900 % 0.0-0.9 [facility] Comment on above: IG% - Immature Granu locytes (promyelocytes, myelocytes and metamyelocytes) > 1% indicates that a LEFT SHIFT is Present. MCH (RBC) [Entitic mass] 28.2 pg 27.0-32.0 [facility] Nucleated RBC/100 WBC (Bld) [Ratio] 0 % 0-5 [facility] MCHC Auto (RBC) [Mass/Vol]Or dered By: Milton Caldwell on 03-12-2023 MCHC (RBC) [Mass/Vol] 30.5 g/dL 32-36 [facility] No Panel InformationOrdered By: Milton Caldwell on 03-12-2023 Estimated GFR (MDRD) Amer 77 mL/min >60 [facility] Comment on above: GFR Calc Estimated GFR (MDRD) Non-Af Amer 63 mL/min >60 [facility] Comment on above: Non- GFR Calc Platelets bldOrdered By: Wilmer Caldwell on 03-12-2023 Platelets (Bld) [#/Vol] 444 10*3/uL 150-450 [facility] Serum or plasma calcium jatin urement (mass/volume)Ordered By: Milton Caldwell on 03-12-2023 Calcium [Mass/Vol] 9.0 mg/dL 8.5-10.1 [facility] Serum or plasma creatinine m easurement (mass/volume)Ordered By: Milton Caldwell on 03-12-2023 Creatinine [Mass/Vol] 0.94 mg/dL 0.55-1.02 [facility] Comment on above: The validity of the calculated GFR & GFRAA in patients over 70 years has not been determined. Clinical correlation is essential. Serum or plasma urea nitroge n measurement (mass/volume)Ordered By: Milton Caldwell on 03-12-2023 Urea nitrogen [Mass/Vol] 21 mg/dL 7-18 [facility] Thin prep Papanicolaou smear with manual screeningOrdered By: Milton Caldwell on 03-12-2023 Thin prep Papanicolaou smear with manual screening 9 5-15 [facility] Bilirubin Test strip Ql (U)O rdered By: Gerard Pereyra on 02-02-2023 Bilirubin Ql (U) Negative Negative [facility] Ketones Test strip Ql (U)Ord ered By: Gerrad Pereyra on 02-02-2023 Ketones Ql (U) Negative Negative [facility] Nitrite Test strip Ql (U)Ord ered By: Gerard Pereyra on 02-02-2023 Nitrite Ql (U) Negative Negative [facility] Protein Test strip Ql (U)Ord ered By: Gerard Pereyra on 02-02-2023 Protein Ql (U) 15 mg/dl Negative [facility] Urine blood detectionOrdered By: Gerard Pereyra on 02-02-2023 RBC Ql (U) Negative Negative [facility] Urine clarityOrdered By: Christo Pereyra on 02-02-2023 Clarity (U) Clear Clear [facility] Urine color determinationOrd ered By: Gerard Pereyra on 02-02-2023 Color (U) Yellow Yellow [facility] Urine glucose detectionOrder ed By: Gerard Pereyra on 02-02-2023 Glucose Ql (U) Normal mg/dl Normal [facility] Urine leukocyte esterase det ection by dipstickOrdered By: Gerard Pereyra on 02-02-2023 Leukocyte esterase Test strip Ql (U) Negative Negative [facility] Urine pHOrdered By: Gerard garcia on 02-02-2023 pH (U) 7.0 [pH] 5.0 - 8.0 [facility] Urine specific gravity measu rementOrdered By: Gerard Pereyra on 02-02-2023 Specific gravity (U) [Rel density] 1.010 1.002-1.030 [facility] Urobilinogen Auto test strip Ql (U)Ordered By: Gerard Pereyra on 02-02-2023 Urobilinogen Ql (U) Normal mg/dl Normal [facility] Absolute lymphocyte countOrd ered By: Gerard Pereyra on 01-30-2023 Lymphocytes Auto (Unsp spec) [#/Vol] 1.78 10*3/uL 0.83-4.51 [facility] Atypical perinuclear antineu trophil cytoplasmic antibodies measurementOrdered By: Gerard Pereyra on 01-30-2023 Neutrophil cytoplasmic Ab.perinuclear.atypical IF (S) [Titer] 1:320 titer Neg:<1:20 [facility] Comment on above: The atypical pANCA p attern has been observed in asignificant percentage of patients with ulcerative colitis,primary sclerosing cholangitis and autoimmune hepatitis. Basophil percentageOrdered B y: Gerard Pereyra on 01-30-2023 Basophil percentage < 0.2 AI 0.0-0.9 [facility] Basophils/100 WBC (Bld) 0.5 % 0-1 [facility] Bilirubin [Mass/Vol] 0.40 mg/dL 0.20-1.00 [facility] Comment on above: For patients on eltr ombopag therapy, use of Dimension [place] TBIL is not recommended. Eosinophils/100 WBC (Bld) 1.0 % 0-5 [facility] Neutrophils (Bld) [#/Vol] 10.5 10*3/uL 2.0-7.7 [facility] Neutrophils/100 WBC (Bld) 77.8 % 47-70 [facility] Protein [Mass/Vol] 7.7 g/dL 6.4-8.2 [facility] WBC (Bld) [#/Vol] 13.4 10*3/uL 4.4-11.0 [facility] Blood erythrocytes count (nu mber/volume)Ordered By: Gerard Pereyra on 01-30-2023 RBC (Bld) [#/Vol] 3.50 10*6/uL 4.2-5.4 [facility] Blood hemoglobin measurement (mass/volume)Ordered By: Gerard Pereyra on 01-30-2023 Hemoglobin (Bld) [Mass/Vol] 10.5 g/dL 12.0-15. 0 [facility] Blood lymphocytes/100 leukoc ytesOrdered By: Gerard Pereyra on 01-30-2023 Lymphocytes/100 WBC (Bld) 13.3 % 19-41 [facility] Blood manual differential co mment interpretation (narrative result)Ordered By: Gerard Pereyra on 01-30-2023 Manual differential comment Arnav (Bld) [Interp] SCANNED [facility] Blood monocytes/100 leukocyt esOrdered By: Gerard Pereyra on 01-30-2023 Monocytes/100 WBC (Bld) 5.4 % 0-10 [facility] Blood platelet mean volumeOr dered By: Gerard Pereyra on 01-30-2023 Platelet mean volume (Bld) [Entitic vol] 9.3 fL 6.2-12.0 [facility] Determination of erythrocyte mean corpuscular volume (MCV)Ordered By: Gerard Pereyra on 01-30-2023 MCV (RBC) [Entitic vol] 95.4 fL 81-99 [facility] Direct bilirubinOrdered By: Gerard Pereyra on 01-30-2023 Bilirubin.direct [Mass/Vol] 0.18 mg/dL 0.00-0.3 0 [facility] Erythrocyte sedimentation ra teOrdered By: Gerard Pereyra on 01-30-2023 ESR (Bld) [Velocity] 36 mm/h 0-30 [facility] Hematocrit Auto (Bld) [Volum e fraction]Ordered By: Gerard Pereyra on 01-30-2023 Hematocrit (Bld) [Volume fraction] 33.4 % 37-47 [facility] Laboratory - Chemistry and C hemistry - challengeOrdered By: Gerard Pereyra on 01-30-2023 ALP [Catalytic activity/Vol] 99 U/L 45-117 [facility] ALT [Catalytic activity/Vol] 27 U/L 13-56 [facility] Globulin (S) [Mass/Vol] 5.8 g/dL 2.2-4.2 [facility] - Hematology and Cell countsOrdered By: Gerard Pereyra on 01-30-2023 Erythrocyte distribution width (RBC) [Entitic vol] 48.5 fL 35.1-43.9 [facility] Erythrocyte distribution width (RBC) [Ratio] 13.9 % 11.6-14.6 [facility] Immature granulocytes/100 WBC (Bld) 2.000 % 0.0-0.9 [facility] Comment on above: IG% - Immature Granu locytes (promyelocytes, myelocytes and metamyelocytes) > 1% indicates that a LEFT SHIFT is Present. MCH (RBC) [Entitic mass] 30.0 pg 27.0-32.0 [facility] Nucleated RBC/100 WBC (Bld) [Ratio] 0 % 0-5 [facility] MCHC Auto (RBC) [Mass/Vol]Or dered By: Gerard Pereyra on 01-30-2023 MCHC (RBC) [Mass/Vol] 31.4 g/dL 32-36 [facility] No Panel InformationOrdered By: Gerard Pereyra on 01-30-2023 Anti-Nuclear Antibody Screen Negative Negative [facility] Comment on above: Performed at: [address] Director: Herb Kincaid PhD, Phone: [phone] [employer] Antibody <0.2 AI 0.0-0.9 [facility] Platelets bldOrdered By: Christo Pereyra on 01-30-2023 Platelets (Bld) [#/Vol] 301 10*3/uL 150-450 [facility] Serum DNA double strand anti body assay (units/volume)Ordered By: Gerard Pereyra on 01-30-2023 DNA double strand Ab Qn (S) [IU]/mL 0-9 [facility] Comment on above: Negative <5 Equivoca l 5 - 9 Positive >9 Serum Lilly-1 antibody assay (u nits/volume)Ordered By: Gerard Pereyar on 01-30-2023 Lilly-1 extractable nuclear Ab Qn (S) <0.2 AI 0.0-0.9 [facility] Serum Scl-70 extractable nuc lear antibody assay (units/volume)Ordered By: Gerard Pereyra on 01-30-2023 SCL-70 extractable nuclear Ab Qn (S) <0.2 AI 0.0-0.9 [facility] Serum classic neutrophil cyt oplasmic antibody assay (units/volume)Ordered By: Gerard Pereyra on 01-30-2023 Neutrophil cytoplasmic Ab.classic Qn (S) <1:20 titer Neg:<1:20 [facility] Serum cyclic citrullinated p eptide IgG antibody assay (units/volume)Ordered By: Gerard Pereyra on 01-30-2023 Cyclic citrullinated peptide IgG Qn 7 units 0-19 [facility] Comment on above: Negative <20 Weak po sitive 20 - 39 Moderate positive 40 - 59 Strong positive >59Performed at: [address] [id number] Director: Herb Kincaid PhD, Phone: [phone] Serum or plasma C reactive p rotein measurement (mass/volume)Ordered By: Gerard Pereyra on 01-30-2023 CRP [Mass/Vol] 278.00 mg/L 0.0-3.0 [facility] Comment on above: C-Reactive Protein ( CRP) provides useful information for thediagnosis, therapy and monitoring of inflammatory processesand associated diseases. For the evaluation of Relative Riskfor Cardiovascular Disease, a High Sensitivity CRP (HSCRP)should be ordered. Serum or plasma actin IgG an tibody assay (units/volume)Ordered By: Gerard Pereyra on 01-30-2023 Actin IgG Qn 18 Units 0-19 [facility] Comment on above: Negative 0 - 19 Weak positive 20 - 30 Moderate to strong positive >30 Actin Antibodies are found in 52-85% of patients with autoimmune hepatitis or chronic active hepatitis and in 22% of patients with primary biliary cirrhosis. Serum or plasma albumin jatin urement (mass/volume)Ordered By: Gerard Pereyra on 01-30-2023 Albumin [Mass/Vol] 1.9 g/dL 3.2-5.0 [facility] Serum or plasma angiotensin converting enzyme measurement (enzymatic activity/volume)Ordered By: Gerard Pereyra on 01-30-2023 Angiotensin converting enzyme [Catalytic activity/Vol] 16 U/L 14-82 [facility] Serum perinuclear neutrophil cytoplasmic antibody titer by immunofluorescenceOrdered By: Gerard Pereyra on 01-30-2023 Neutrophil cytoplasmic Ab.perinuclear IF (S) [Titer] <1:20 titer Neg:<1:20 [facility] Comment on above: The presence of posi tive fluorescence exhibiting P-ANCA orC-ANCA patterns alone is not specific for the diagnosis ofWegener's Granulomatosis (WG) or microscopic polyangiitis.Decisions about treatment should not be based solely onANCA IFA results. The [employer] Consensusrecommends follow up testing of positive sera with both OH-3 and MPO-ANCA enzyme immunoassays. As many as 5% serumsamples are positive only by EIA. Ref. AM J Clin [id number];111:507-513. Serum rheumatoid factor dete ctionOrdered By: Gerard Pereyra on 01-30-2023 Rheumatoid factor Ql (S) < 10.0 IU/mL <15 [facility] Thin prep Papanicolaou smear with manual screeningOrdered By: Gerard Pereyra on 01-30-2023 Thin prep Papanicolaou smear with manual screening 14 U/L 15-37 [facility] Absolute lymphocyte countOrd ered By: Kenney Vizcarra on 01-25-2023 Lymphocytes Auto (Unsp spec) [#/Vol] 1.55 10*3/uL 0.83-4.51 [facility] Basophil percentageOrdered B y: Kenney Vizcarra on 01-25-2023 Basophils/100 WBC (Bld) 0.5 % 0-1 [facility] Chloride [Moles/Vol] 104 mmol/L 98-107 [facility] Eosinophils/100 WBC (Bld) 2.7 % 0-5 [facility] Glucose [Mass/Vol] 137 mg/dL 74-106 [facility] Comment on above: Fasting Glucose resu lt greater than or equal to 126 mg/dL suggests DIABETES MELLITUS per A.D.A. criteria. Neutrophils (Bld) [#/Vol] 7.3 10*3/uL 2.0-7.7 [facility] Neutrophils/100 WBC (Bld) 69.2 % 47-70 [facility] Potassium [Moles/Vol] 4.0 mmol/L 3.5-5.1 [facility] Sodium [Moles/Vol] 139 mmol/L 136-145 [facility] WBC (Bld) [#/Vol] 10.5 10*3/uL 4.4-11.0 [facility] Blood erythrocytes count (nu mber/volume)Ordered By: Kenney Vizcarra on 01-25-2023 RBC (Bld) [#/Vol] 3.55 10*6/uL 4.2-5.4 [facility] Blood hemoglobin measurement (mass/volume)Ordered By: Kenney Vizcarra on 01-25-2023 Hemoglobin (Bld) [Mass/Vol] 10.9 g/dL 12.0-15. 0 [facility] Blood lymphocytes/100 leukoc ytesOrdered By: Kenney Vizcarra on 01-25-2023 Lymphocytes/100 WBC (Bld) 14.7 % 19-41 [facility] Blood monocytes/100 leukocyt esOrdered By: Kenney Vizcarra on 01-25-2023 Monocytes/100 WBC (Bld) 9.6 % 0-10 [facility] Blood platelet mean volumeOr dered By: Kenney Vizcarra on 01-25-2023 Platelet mean volume (Bld) [Entitic vol] 9.4 fL 6.2-12.0 [facility] Determination of erythrocyte mean corpuscular volume (MCV)Ordered By: Kenney Vizcarra on 01-25-2023 MCV (RBC) [Entitic vol] 95.2 fL 81-99 [facility] Glucose Glucometer (BldC) [M ass/Vol]Ordered By: Chino Masters on 01-25-2023 Glucose [Mass/Vol] 177 mg/dL 74-106 [facility] Comment on above: MANAGEMENT OF PATIEN T CARE PER NURSING PROTOCOL Hematocrit Auto (Bld) [Volum e fraction]Ordered By: Kenney Vizcarra on 01-25-2023 Hematocrit (Bld) [Volume fraction] 33.8 % 37-47 [facility] INR in Blood by Coagulation assayOrdered By: Kenney Vizcarra on 01-25-2023 INR Coag (Bld) [Relative time] 1.4 {INR} [facility] Laboratory - Chemistry and C hemistry - challengeOrdered By: Kenney Vizcarra on 01-25-2023 CO2 [Moles/Vol] 30.0 mmol/L 21.0-32.0 [facility] Urea nitrogen/Creatinine [Mass ratio] 18.3 mg/mg 10-20 [facility] Laboratory - CoagulationOrde red By: Kenney Vizcarra on 01-25-2023 PT Coag (PPP) [Time] 16.9 s 11.7-14.9 [facility] - Hematology and Cell countsOrdered By: Kenney Vizcarra on 01-25-2023 Erythrocyte distribution width (RBC) [Entitic vol] 47.3 fL 35.1-43.9 [facility] Erythrocyte distribution width (RBC) [Ratio] 13.3 % 11.6-14.6 [facility] Immature granulocytes/100 WBC (Bld) 3.300 % 0.0-0.9 [facility] Comment on above: IG% - Immature Granu locytes (promyelocytes, myelocytes and metamyelocytes) > 1% indicates that a LEFT SHIFT is Present. MCH (RBC) [Entitic mass] 30.7 pg 27.0-32.0 [facility] Nucleated RBC/100 WBC (Bld) [Ratio] 0 % 0-5 [facility] MCHC Auto (RBC) [Mass/Vol]Or dered By: Kenney Vizcarra on 01-25-2023 MCHC (RBC) [Mass/Vol] 32.2 g/dL 32-36 [facility] No Panel InformationOrdered By: Kenney Vizcarra on 01-25-2023 Estimated Creatinine Clearance Calc 49.80 ml/min [facility] Estimated GFR (MDRD) Amer 106 mL/min >60 [facility] Comment on above: GFR Calc Estimated GFR (MDRD) Non-Af Amer 88 mL/min >60 [facility] Comment on above: Non- GFR Calc Platelets bldOrdered By: Brian Vizcarra on 01-25-2023 Platelets (Bld) [#/Vol] 359 10*3/uL 150-450 [facility] Serum or plasma calcium jatin urement (mass/volume)Ordered By: Kenney Vizcarra on 01-25-2023 Calcium [Mass/Vol] 8.4 mg/dL 8.5-10.1 [facility] Serum or plasma creatinine m easurement (mass/volume)Ordered By: Kenney Vizcarra on 01-25-2023 Creatinine [Mass/Vol] 0.71 mg/dL 0.55-1.02 [facility] Comment on above: The validity of the calculated GFR & GFRAA in patients over 70 years has not been determined. Clinical correlation is essential. Serum or plasma urea nitroge n measurement (mass/volume)Ordered By: Kenney Vizcarra on 01-25-2023 Urea nitrogen [Mass/Vol] 13 mg/dL 7-18 [facility] Thin prep Papanicolaou smear with manual screeningOrdered By: Kenney Vizcarra on 01-25-2023 Thin prep Papanicolaou smear with manual screening 5 5-15 [facility] Anaerobic cultureOrdered By: Kenney Vizcarra on 01-24-2023 Bacteria identified Anaer cx Nom (Unsp spec) No growth in 5 days. [facility] Bacterial body fluid culture Ordered By: Kenney Vizcarra on 01-24-2023 Bacteria identified Cx Nom (Body fld) No growth aerobically. [facility] Basophil percentageOrdered B y: Kenney Vizcarra on 01-24-2023 LDH [Catalytic activity/Vol] 159 U/L 84-246 [facility] Body fluid appearanceOrdered By: Kenney Vizcarra on 01-24-2023 Appearance (Body fld) SL CLDY [facility] Body fluid color determinati onOrdered By: Kenney Vizcarra on 01-24-2023 Color (Body fld) LT YEL [facility] Body fluid erythrocytes coun t (number/volume)Ordered By: Kenney Vizcarra on 01-24-2023 RBC (Body fld) [#/Vol] 3 10*3/uL [facility] Body fluid lactate dehydroge nase measurement (enzymatic activity/volume) by pyruvateOrdered By: Kenney Vizcarra on 01-24-2023 LDH Pyruvate to lactate reaction (Body fld) [Catalytic activity/Vol] 669 Units/l Not Establ. [facility] Body fluid leukocytes count (number/volume)Ordered By: Kenney Vizcarra on 01-24-2023 WBC (Body fld) [#/Vol] 1.476 10*3/uL [facility] Body fluid protein measureme nt (mass/volume)Ordered By: Kenney Vizcarra on 01-24-2023 Protein (Body fld) [Mass/Vol] 4.0 g/dL Not Establ. [facility] Gram stain for investigation of transfusion reactionOrdered By: Kenney Vizcarra on 01-24-2023 Microscopic observation Gram stain Nom (Unsp spec) [facility] Mononuclear cells Auto (Body fld) [#/Vol]Ordered By: Kenney Vizcarra on 01-24-2023 Mononuclear cells (Body fld) [#/Vol] 0.403 10*3/uL [facility] No Panel InformationOrdered By: Kenney Vizcarra on 01-24-2023 Body Fluid Comment 2 SEE COMMENT [facility] Body Fluid Mononuclear WBCs (%) 27.3 % [facility] Body Fluid Pathologist Comment May follow [facility] Body Fluid Pathologist Comment Reviewed [facility] Comment on above: Previous reported re sult: May follow Edited by: HILAYR on 01/26/23:1019Negative for malignant cells.Acute inflammation.Gonzalez Benavidez M.D. 01/26/23 AMENDED REPORT 01/26/23 1019 PATH COMM/BF previously reported as: May follow Body Fluid Polynuclear WBCs (#) 1.073 10^3/uL [facility] Body Fluid Polynuclear WBCs (%) 72.7 % [facility] Body Fluid Glucose 126 mg/dL 40-70 [facility] Body Fluid Glucose 124 mg/dL 40-70 [facility] Comment on above: Previous reported re sult: 126 mg/dLEdited by: MARCIA on 01/31/23:1554 AMENDED REPORT 01/31/23 1554 GLU,BF previously reported as: 126 H mg/dL Specimen source identificati on of body fluidOrdered By: Kenney Vizcarra on 01-24-2023 Specimen source Nom (Body fld) THORACENTESIS [facility] Total cell countOrdered By: Kenney Vizcarra on 01-24-2023 Cells counted Molgen (Bld/Tiss) [#] 1.476 10^3/ul 0.000-0.000 [facility] Comment on above: This is the Total Nu mber of Nucleated Cell Types in the Body Fluid. Absolute lymphocyte countOrd ered By: Max Lara on 01-23-2023 Lymphocytes Auto (Unsp spec) [#/Vol] 1.10 10*3/uL 0.83-4.51 [facility] Basophil percentageOrdered B y: Max Lara on 01-23-2023 Basophils/100 WBC (Bld) 0.5 % 0-1 [facility] Bilirubin [Mass/Vol] 0.20 mg/dL 0.20-1.00 [facility] Comment on above: For patients on eltr ombopag therapy, use of Dimension [place] TBIL is not recommended. Chloride [Moles/Vol] 103 mmol/L 98-107 [facility] Eosinophils/100 WBC (Bld) 1.9 % 0-5 [facility] Glucose [Mass/Vol] 258 mg/dL 74-106 [facility] Comment on above: Glucose result great er than or equal to 200 mg/dLsuggests DIABETES MELLITUS per A.D.A. criteria. Lactate [Moles/Vol] 1.6 mmol/L 0.4-2.0 [facility] Neutrophils (Bld) [#/Vol] 7.5 10*3/uL 2.0-7.7 [facility] Neutrophils/100 WBC (Bld) 77.1 % 47-70 [facility] Potassium [Moles/Vol] 3.9 mmol/L 3.5-5.1 [facility] Protein [Mass/Vol] 6.8 g/dL 6.4-8.2 [facility] Sodium [Moles/Vol] 135 mmol/L 136-145 [facility] WBC (Bld) [#/Vol] 9.8 10*3/uL 4.4-11.0 [facility] Blood erythrocytes count (nu mber/volume)Ordered By: Max Lara on 01-23-2023 RBC (Bld) [#/Vol] 3.38 10*6/uL 4.2-5.4 [facility] Blood hemoglobin measurement (mass/volume)Ordered By: Max Lara on 01-23-2023 Hemoglobin (Bld) [Mass/Vol] 10.4 g/dL 12.0-15. 0 [facility] Blood lymphocytes/100 leukoc ytesOrdered By: Max Lara on 01-23-2023 Lymphocytes/100 WBC (Bld) 11.3 % 19-41 [facility] Blood monocytes/100 leukocyt esOrdered By: Max Lara on 01-23-2023 Monocytes/100 WBC (Bld) 8.5 % 0-10 [facility] Blood platelet mean volumeOr dered By: Max Lara on 01-23-2023 Platelet mean volume (Bld) [Entitic vol] 9.4 fL 6.2-12.0 [facility] Determination of erythrocyte mean corpuscular volume (MCV)Ordered By: Max Lara on 01-23-2023 MCV (RBC) [Entitic vol] 95.0 fL 81-99 [facility] Direct bilirubinOrdered By: Max Lara on 01-23-2023 Bilirubin.direct [Mass/Vol] 0.12 mg/dL 0.00-0.3 0 [facility] Hematocrit Auto (Bld) [Volum e fraction]Ordered By: Max Lara on 01-23-2023 Hematocrit (Bld) [Volume fraction] 32.1 % 37-47 [facility] INR in Blood by Coagulation assayOrdered By: Max Lara on 01-23-2023 INR Coag (Bld) [Relative time] 3.0 {INR} [facility] Influenza virus A and B and SARS-CoV-2 (COVID-19) Ag panel - Upper respiratory specimOrdered By: Max Lara on 01-23-2023 SARS-CoV-2 (COVID-19) RNA SEEMA+probe Ql (Resp) [facility] Laboratory - Chemistry and C hemistry - challengeOrdered By: Max Lara on 01-23-2023 ALP [Catalytic activity/Vol] 67 U/L 45-117 [facility] ALT [Catalytic activity/Vol] 15 U/L 13-56 [facility] CO2 [Moles/Vol] 27.0 mmol/L 21.0-32.0 [facility] Globulin (S) [Mass/Vol] 4.4 g/dL 2.2-4.2 [facility] Urea nitrogen/Creatinine [Mass ratio] 24.6 mg/mg 10-20 [facility] Laboratory - CoagulationOrde red By: Max Lara on 01-23-2023 aPTT Coag (Bld) [Time] 80.7 s 24.1-36.2 [facility] PT Coag (PPP) [Time] 31.5 s 11.7-14.9 [facility] Laboratory - Hematology and Cell countsOrdered By: Max Lara on 01-23-2023 Erythrocyte distribution width (RBC) [Entitic vol] 47.4 fL 35.1-43.9 [facility] Erythrocyte distribution width (RBC) [Ratio] 13.6 % 11.6-14.6 [facility] Immature granulocytes/100 WBC (Bld) 0.700 % 0.0-0.9 [facility] Comment on above: IG% - Immature Granu locytes (promyelocytes, myelocytes and metamyelocytes) > 1% indicates that a LEFT SHIFT is Present. MCH (RBC) [Entitic mass] 30.8 pg 27.0-32.0 [facility] Nucleated RBC/100 WBC (Bld) [Ratio] 0 % 0-5 [facility] MCHC Auto (RBC) [Mass/Vol]Or dered By: Max Lara on 01-23-2023 MCHC (RBC) [Mass/Vol] 32.4 g/dL 32-36 [facility] No Panel InformationOrdered By: Max Lara on 01-23-2023 Estimated Creatinine Clearance Calc 57.90 ml/min [facility] Estimated GFR (MDRD) Amer 85 mL/min >60 [facility] Comment on above: GFR Calc Estimated GFR (MDRD) Non-Af Amer 71 mL/min >60 [facility] Comment on above: Non- GFR Calc Platelets bldOrdered By: Felix Lara on 01-23-2023 Platelets (Bld) [#/Vol] 293 10*3/uL 150-450 [facility] Serum or plasma albumin jatin urement (mass/volume)Ordered By: Max Lara on 01-23-2023 Albumin [Mass/Vol] 2.4 g/dL 3.2-5.0 [facility] Serum or plasma calcium jatin urement (mass/volume)Ordered By: Max Lara on 01-23-2023 Calcium [Mass/Vol] 8.4 mg/dL 8.5-10.1 [facility] Serum or plasma creatinine m easurement (mass/volume)Ordered By: Max Lara on 01-23-2023 Creatinine [Mass/Vol] 0.86 mg/dL 0.55-1.02 [facility] Comment on above: The validity of the calculated GFR & GFRAA in patients over 70 years has not been determined. Clinical correlation is essential. Serum or plasma urea nitroge n measurement (mass/volume)Ordered By: Max Lara on 01-23-2023 Urea nitrogen [Mass/Vol] 21 mg/dL 7-18 [facility] Thin prep Papanicolaou smear with manual screeningOrdered By: Max Lara on 01-23-2023 Thin prep Papanicolaou smear with manual screening 9 U/L 15-37 [facility] Thin prep Papanicolaou smear with manual screening 5 5-15 [facility] Absolute lymphocyte countOrd ered By: Osiris Arana on 01-20-2023 Lymphocytes Auto (Unsp spec) [#/Vol] 2.12 10*3/uL 0.83-4.51 [facility] Basophil percentageOrdered B y: Osiris Arana on 01-20-2023 Basophils/100 WBC (Bld) 0.3 % 0-1 [facility] Chloride [Moles/Vol] 106 mmol/L 98-107 [facility] Eosinophils/100 WBC (Bld) 0.6 % 0-5 [facility] Glucose [Mass/Vol] 112 mg/dL 74-106 [facility] Comment on above: Fasting Glucose resu lt from 100 to 125 mg/dL suggests IMPAIRED HOMEOSTASIS per A.D.A. criteria. Neutrophils (Bld) [#/Vol] 7.2 10*3/uL 2.0-7.7 [facility] Neutrophils/100 WBC (Bld) 68.6 % 47-70 [facility] Potassium [Moles/Vol] 4.5 mmol/L 3.5-5.1 [facility] Sodium [Moles/Vol] 138 mmol/L 136-145 [facility] WBC (Bld) [#/Vol] 10.5 10*3/uL 4.4-11.0 [facility] Blood erythrocytes count (nu mber/volume)Ordered By: Osiris Arana on 01-20-2023 RBC (Bld) [#/Vol] 3.61 10*6/uL 4.2-5.4 [facility] Blood hemoglobin measurement (mass/volume)Ordered By: Osiris Arana on 01-20-2023 Hemoglobin (Bld) [Mass/Vol] 11.3 g/dL 12.0-15. 0 [facility] Blood lymphocytes/100 leukoc ytesOrdered By: Osiris Arana on 01-20-2023 Lymphocytes/100 WBC (Bld) 20.2 % 19-41 [facility] Blood monocytes/100 leukocyt esOrdered By: Osiris Arana on 01-20-2023 Monocytes/100 WBC (Bld) 9.0 % 0-10 [facility] Blood platelet mean volumeOr dered By: Osiris Arana on 01-20-2023 Platelet mean volume (Bld) [Entitic vol] 10.1 fL 6.2-12.0 [facility] Determination of erythrocyte mean corpuscular volume (MCV)Ordered By: Osiris Arana on 01-20-2023 MCV (RBC) [Entitic vol] 95.8 fL 81-99 [facility] Hematocrit Auto (Bld) [Volum e fraction]Ordered By: Osiris Arana on 01-20-2023 Hematocrit (Bld) [Volume fraction] 34.6 % 37-47 [facility] INR in Blood by Coagulation assayOrdered By: Osiris Arana on 01-20-2023 INR Coag (Bld) [Relative time] 2.3 {INR} [facility] Laboratory - Chemistry and C hemistry - challengeOrdered By: Osiris Arana on 01-20-2023 CO2 [Moles/Vol] 29.0 mmol/L 21.0-32.0 [facility] Urea nitrogen/Creatinine [Mass ratio] 30.4 mg/mg 10-20 [facility] Laboratory - CoagulationOrde red By: Osiris Arana on 01-20-2023 PT Coag (PPP) [Time] 25.5 s 11.7-14.9 [facility] Laboratory - Hematology and Cell countsOrdered By: Osiris Arana on 01-20-2023 Erythrocyte distribution width (RBC) [Entitic vol] 49.1 fL 35.1-43.9 [facility] Erythrocyte distribution width (RBC) [Ratio] 13.9 % 11.6-14.6 [facility] Immature granulocytes/100 WBC (Bld) 1.300 % 0.0-0.9 [facility] Comment on above: IG% - Immature Granu locytes (promyelocytes, myelocytes and metamyelocytes) > 1% indicates that a LEFT SHIFT is Present. MCH (RBC) [Entitic mass] 31.3 pg 27.0-32.0 [facility] Nucleated RBC/100 WBC (Bld) [Ratio] 0 % 0-5 [facility] MCHC Auto (RBC) [Mass/Vol]Or dered By: Osiris Arana on 01-20-2023 MCHC (RBC) [Mass/Vol] 32.7 g/dL 32-36 [facility] No Panel InformationOrdered By: Osiris Arana on 01-20-2023 Estimated Creatinine Clearance Calc 43.30 ml/min [facility] Estimated GFR (MDRD) Amer 61 mL/min >60 [facility] Comment on above: GFR Calc Estimated GFR (MDRD) Non-Af Amer 50 mL/min >60 [facility] Comment on above: Non- GFR Calc Troponin I High Sensitivity < 3 pg/mL 3.0-54.0 [facility] Comment on above: Please Note: New Arti t Units and Gender Specific Reference Ranges. For more information see Policy Stat Procedure [place] High Sensitivity Troponin (TNIH) and attachments. Platelets bldOrdered By: Anastacia Arana on 01-20-2023 Platelets (Bld) [#/Vol] 262 10*3/uL 150-450 [facility] Serum or plasma calcium jatin urement (mass/volume)Ordered By: Osiris Arana on 01-20-2023 Calcium [Mass/Vol] 9.0 mg/dL 8.5-10.1 [facility] Serum or plasma creatinine m easurement (mass/volume)Ordered By: Osiris Arana on 01-20-2023 Creatinine [Mass/Vol] 1.15 mg/dL 0.55-1.02 [facility] Comment on above: The validity of the calculated GFR & GFRAA in patients over 70 years has not been determined. Clinical correlation is essential. Serum or plasma urea nitroge n measurement (mass/volume)Ordered By: Osiris Arana on 01-20-2023 Urea nitrogen [Mass/Vol] 35 mg/dL 7-18 [facility] Thin prep Papanicolaou smear with manual screeningOrdered By: Osiris Arana on 01-20-2023 Thin prep Papanicolaou smear with manual screening 3 5-15 [facility] Albumin Elph [Mass/Vol]Order ed By: Dr. Rasmussen on 12-25-2022 Albumin [Mass/Vol] 3.4 g/dL 2.9-4.4 [facility] Interpretation of serum or p lasma protein pattern by immunofixation (narrative resultOrdered By: Dr. Rasmussen on 12-25-2022 Protein Fractions Immunofixation Arnav [Interp] See comment [facility] Comment on above: Due to the small yelena ntity of monoclonal protein, unable toquantitate the M-spike. No Panel InformationOrdered By: Dr. Rasmussen on 12-25-2022 Addendum Document Comment . [facility] Comment on above: Protein electrophore sis scan will follow via computer,mail, or crane ladle person delivery.Performed at: [address] [id number] Director: Herb Kincaid PhD, Phone: [phone] Thyroid Stimulating Hormone (TSH) 0.81 uIU/mL 0.358-3.74 [facility] Serum [id number] measu rement by electrophoresisOrdered By: Dr. Rasmussen on 12-25-2022 Alpha 1 globulin Elph [Mass/Vol] 0.2 g/dL 0.0-0.4 [facility] Alpha 1 globulin Elph [Mass/Vol] 0.9 g/dL 0.4-1.0 [facility] Serum globulin measurement ( mass/volume)Ordered By: Dr. Rasmussen on 12-25-2022 Globulin (S) [Mass/Vol] 3.2 g/dL 2.2-3.9 [facility] Serum or plasma IgA measurem ent (mass/volume)Ordered By: Dr. Rasmussen on 12-25-2022 IgA [Mass/Vol] 157 mg/dL 87-352 [facility] Serum or plasma IgG measurem ent (mass/volume)Ordered By: Dr. Rasmussen on 12-25-2022 IgG [Mass/Vol] 1074 mg/dL [phone] [facility] Serum or plasma IgM measurem ent (mass/volume)Ordered By: Dr. Rasmussen on 12-25-2022 IgM [Mass/Vol] 96 mg/dL 26-217 [facility] Serum or plasma beta globuli n measurement by electrophoresis (mass/volume)Ordered By: Dr. Rasmussen on 12-25-2022 Beta globulin Elph [Mass/Vol] 1.0 g/dL 0.7-1.3 [facility] Serum or plasma folate measu rement (mass/volume)Ordered By: Dr. Rasmussen on 12-25-2022 Folate [Mass/Vol] 18.90 ng/mL 3.1-55.4 [facility] Serum or plasma gamma globul in measurement by electrophoresis (mass/volume)Ordered By: Dr. Rasmussen on 12-25-2022 Gamma globulin Elph [Mass/Vol] 1.0 g/dL 0.4-1.8 [facility] Serum or plasma immunoelectr ophoresis interpretation (nominal result)Ordered By: Dr. Rasmussen on 12-25-2022 Interpretation IEP [Interp] Comment . [facility] Comment on above: Immunofixation shows IgG monoclonal protein with lambdalight chain specificity. Thin prep Papanicolaou smear with manual screeningOrdered By: Dr. Rasmussen on 12-25-2022 Thin prep Papanicolaou smear with manual screening 1.1 0.7-1.7 [facility] Total protein bloodOrdered B y: Dr. Rasmussen on 12-25-2022 Protein [Mass/Vol] 6.6 g/dL 6.0-8.5 [facility] Basophil percentageOrdered B y: Dr. Rasmussen on 11-06-2022 WBC (Bld) [#/Vol] 8.5 10*3/uL 4.4-11.0 [facility] Blood erythrocytes count (nu mber/volume)Ordered By: Dr. Rasmussen on 11-06-2022 RBC (Bld) [#/Vol] 4.00 10*6/uL 4.2-5.4 [facility] Blood hemoglobin measurement (mass/volume)Ordered By: Dr. Rasmussen on 11-06-2022 Hemoglobin (Bld) [Mass/Vol] 12.5 g/dL 12.0-15. 0 [facility] Blood platelet mean volumeOr dered By: Dr. Rasmussen on 11-06-2022 Platelet mean volume (Bld) [Entitic vol] 10.4 fL 6.2-12.0 [facility] Determination of erythrocyte mean corpuscular volume (MCV)Ordered By: Dr. Rasmussen on 11-06-2022 MCV (RBC) [Entitic vol] 96.3 fL 81-99 [facility] Hematocrit Auto (Bld) [Volum e fraction]Ordered By: Dr. Rasmussen on 11-06-2022 Hematocrit (Bld) [Volume fraction] 38.5 % 37-47 [facility] Iron measurement (mass/mass) Ordered By: Dr. Rasmussen on 11-06-2022 Iron (Unsp spec) [Mass/Mass] 58 ug/dL 50-170 [facility] Laboratory - Hematology and Cell countsOrdered By: Dr. Rasmussen on 11-06-2022 Erythrocyte distribution width (RBC) [Entitic vol] 47.3 fL 35.1-43.9 [facility] Erythrocyte distribution width (RBC) [Ratio] 13.2 % 11.6-14.6 [facility] MCH (RBC) [Entitic mass] 31.3 pg 27.0-32.0 [facility] MCHC Auto (RBC) [Mass/Vol]Or dered By: Dr. Rasmussen on 11-06-2022 MCHC (RBC) [Mass/Vol] 32.5 g/dL 32-36 [facility] Platelets bldOrdered By: Dr. Rasmussen on 11-06-2022 Platelets (Bld) [#/Vol] 288 10*3/uL 150-450 [facility] Serum or plasma ferritin karina surement (mass/volume)Ordered By: Dr. Rasmussen on 11-06-2022 Ferritin [Mass/Vol] 143 ng/mL 8-252 [facility] Albumin Elph [Mass/Vol]Order ed By: Dr. Rasmussen on 08-31-2022 Albumin [Mass/Vol] 3.4 g/dL 2.9-4.4 [facility] Basophil percentageOrdered B y: Dr. Rasmussen on 08-31-2022 Basophil percentage Comment . [facility] Comment on above: No monoclonality det ected.Performed at: [facility] [id number] Director: Herb Kincaid PhD, Phone: [phone] at: [facility] [email or web address] [id number] Director: Kimberly Langford MD, Phone: [phone] Interpretation of serum or p lasma protein pattern by immunofixation (narrative resultOrdered By: Dr. Rasmussen on 08-31-2022 Protein Fractions Immunofixation Arnav [Interp] See comment [facility] Comment on above: NOT OBSERVED No Panel InformationOrdered By: Dr. Rasmussen on 08-31-2022 Addendum Document Comment . [facility] Comment on above: Protein electrophore sis scan will follow via computer,mail, or crane ladle person delivery. Free Lambda Light Chains, Quant 27.3 mg/L 5.7-26.3 [facility] Whole Blood Vitamin B1 Level 191.0 nmol/L 66.5-200.0 [facility] Serum fvzac-3-dozmwvze measu rement by electrophoresisOrdered By: Dr. Rasmussen on 08-31-2022 Alpha 1 globulin Elph [Mass/Vol] 0.3 g/dL 0.0-0.4 [facility] Alpha 1 globulin Elph [Mass/Vol] 0.9 g/dL 0.4-1.0 [facility] Serum globulin measurement ( mass/volume)Ordered By: Dr. Rasmussen on 08-31-2022 Globulin (S) [Mass/Vol] 3.5 g/dL 2.2-3.9 [facility] Serum immunoglobulin kappa l ight chains/immunoglobulin lambda light chains mass ratioOrdered By: Dr. Rasmussen on 08-31-2022 Immunoglobulin light chains.kappa/Immunoglobulin light chains.lambda (S) [Mass ratio] 1.47 0.26-1.65 [facility] Serum or plasma IgA measurem ent (mass/volume)Ordered By: Dr. Rasmussen on 08-31-2022 IgA [Mass/Vol] 184 mg/dL 87-352 [facility] Serum or plasma IgG measurem ent (mass/volume)Ordered By: Dr. Rasmussen on 08-31-2022 IgG [Mass/Vol] 1167 mg/dL [phone] [facility] Serum or plasma IgM measurem ent (mass/volume)Ordered By: Dr. Rasmussen on 08-31-2022 IgM [Mass/Vol] 103 mg/dL 26-217 [facility] Serum or plasma beta globuli n measurement by electrophoresis (mass/volume)Ordered By: Dr. Rasmussen on 08-31-2022 Beta globulin Elph [Mass/Vol] 1.0 g/dL 0.7-1.3 [facility] Serum or plasma gamma globul in measurement by electrophoresis (mass/volume)Ordered By: Dr. Rasmussen on 08-31-2022 Gamma globulin Elph [Mass/Vol] 1.3 g/dL 0.4-1.8 [facility] Serum or plasma immunoelectr ophoresis interpretation (nominal result)Ordered By: Dr. Rasmussen on 08-31-2022 Interpretation IEP [Interp] Comment: . [facility] Comment on above: Presence of monoclon al protein is unclear at this time. Suggestrepeat in 3 to 6 months if clinically indicated. Serum or plasma immunoglobul in kappa light chains measurement (mass/volume)Ordered By: Dr. Rasmussen on 08-31-2022 Immunoglobulin light chains.kappa [Mass/Vol] 40.0 mg/L 3.3-19.4 [facility] Thin prep Papanicolaou smear with manual screeningOrdered By: Dr. Rasmussen on 02-09-2023 Thin prep Papanicolaou smear with manual screening 1.0 0.7-1.7 [facility] Total protein bloodOrdered B y: Dr. Rasmussen on 08-31-2022 Protein [Mass/Vol] 6.9 g/dL 6.0-8.5 [facility] Basophil percentageOrdered B y: Dr. Rasmussen on 07-24-2022 Basophil percentage < 0.9 mg/dL 0.55-1.02 [facility] No Panel InformationOrdered By: Dr. Rasmussen on 07-24-2022 Bedside Estimated GFR (eGFR) > 60.0000 mL/min >60 [facility] ANES POSTPROC EVALon 022 ANES POSTPROC EVAL HNO ID: [id number] Author: Osiris Kim MD Service: ? Author Type: Anesthesiologist Type: Anesthesia Postprocedure Evaluation Filed: 06/28/2022 1:23 PM Note Text: POST ANESTHESIA EVALUATION NOTE : 1955 Procedure Summary Date: 06/28/22 Room / Location: [facility] Endoscopy Anesthesia Start: 1132 Anesthesia Stop: 1221 Procedure: COLONOSCOPY SCREENING Diagnosis: History of colonic polyps (High risk colon cancer surveillance: Personal history of colonic polyps) Scheduled Providers: Asad Guerin MD; Nuris Lazcano APRN.PLUNGER SHOVEL OPERATOR; Osiris Kim MD Responsible Provider: Osiris [...] Documentation SIGNATURE: Osiris Kim MD PATIENT NAME: Elsa Blue DATE: June 28, 2022 TIME: 1:23 PM CSN: [id number] Normal [facility] ANES PRE-OPon 06-28-2022 ANES PRE-OP HNO ID: [id number] Author: Osiris Kim MD Service: ? Author Type: Anesthesiologist Type: Anesthesia Preprocedure Evaluation Filed: 06/28/2022 10:52 AM Note Text: ANESTHESIOLOGY DAY OF SURGERY NOTE : 1955 Procedure Information Date/Time: 06/28/22 1300 Scheduled providers: Asad Guerin MD; Nuris Lazcano APRN.PLUNGER SHOVEL OPERATOR; Osiris Kim MD Procedure: COLONOSCOPY SCREENING Location: [facility] Endoscopy Estimated body mass index is [...] Surgery/Procedure. SIGNATURE: Osiris Kim MD PATIENT NAME: Elsa Blue DATE: June 28, 2022 TIME: 10:50 AM CSN: [id number] Normal [facility] COLONOSCOPY SCREENINGon [facility] Colonoscopyon 06-28-2022 Colonoscopy [facility] Gastrointestinal Endoscopy Patient Name: Elsa Blue Procedure Date: 06/28/2022 11:25 AM Date of : 1955 Admit Type: Outpatient Age: 66 Room: [facility] Gender: Female Note Status: Finalized Attending MD: Asad Guerin MD Procedure: Colonoscopy Indications: High risk colon cancer surveillance: Personal history of colonic polyps Providers: Asad Guerin MD Patient Profile: This is a 66 year old female. Refer to note in patient chart for documentation of history and physical. Last Colonoscopy: December 2013. Referring Physician: Clari Whitmore (pa) (Referring MD) Medicines: See the [...] prior dose. Procedure Code(s): --- Professional --- 30105, 53, Colonoscopy, flexible; diagnostic, including collection of specimen(s) by brushing or washing, when performed (separate procedure) Diagnosis Code(s): --- Professional --- Z12.11, Encounter for screening for malignant neoplasm of colon Z86.010, Personal history of colonic polyps K57.30, Diverticulosis of large intestine without perforation or abscess without bleeding CPT copyright 2020 [employer]. All rights reserved. The codes documented in this report are preliminary and upon key bed installer review may be revised to meet current compliance requirements. Attending Participation: I personally performed the entire procedure. Scope In: 11:38:38 AM Scope Out: 12:12:58 PM MD Asad Carrillo MD 06/28/2022 12:22:59 PM This report has been signed electronically by Asad Guerin MD Number of Addenda: 0 Note Initiated On: 06/28/2022 11:25 AM Estimated Blood Loss: Estimated blood loss: none. Normal [facility] GLUCOSE, BLOOD (POC)on 06-28 Glucose [Mass/Vol] 122 mg/dL Abnormal 74 - 99 mg/dL [facility] HISTORY PHYSICALon HISTORY PHYSICAL HNO ID: [id number] Author: Asad Guerin MD Service: General Surgery Author Type: Physician Type: HANDP Filed: 06/28/2022 11:34 AM Note Text: HISTORY AND PHYSICAL Elsa Blue 1955 REFERRING PHYSICIAN: Milton Almanzar, * CHIEF COMPLAINT: Consult (colonoscopy) HPI: The patient is a 66 year old female referred for endoscopy. Elsa notes a history of colon polyps. Patient denies any change in bowel habits, weight changes, blood in stools, black tarry stools or abdominal pain. Denies family history of colon issues. The patient notes no upper GI complaints. Elsa has undergone prior endoscopy. The patient had a colonoscopy in December [address] Guerin with removal of adenomatous polyp. She also had a colonoscopy with Dr. Guerin in 2016 at [facility] which was incomplete. Per operative report, [...] entered by the nurse and reviewed by pr Nursing Notes: Em Park RN 04/28/2022 11:01 AM Signed REVIEW OF SYSTEMS: General: The patient NOTES fatigue, denies weight loss, denies weight gain, NOTES feeling hot, and denies feelings of (more content not included)... [facility] XR COLON ROUTINE DOUBLE CONT [facility] 06-28-2022 XR COLON ROUTINE DOUBLE CONTRAST * [...] mGy*cm^2 Fluoro time: 2:19 min:sec FINDINGS: The social service technician image demonstrates a large amount of [...] stricture is seen. IMPRESSION: Mild colonic diverticulosis. Clean Room Assembler[facility] Transcribe Date/Time: Jun 28 2022 4:25P Dictated by : RAMONITA GONZALEZ MD This examination was interpreted and the report reviewed and electronically signed by: RAMONITA GONZALEZ MD on Jun 28 2022 4:29PM EST [id number] CN [facility] Absolute lymphocyte countOrd ered By: Dr. Almanzar on 06-08-2022 Lymphocytes Auto (Unsp spec) [#/Vol] 2.62 10*3/uL 0.83-4.51 [facility] Basophil percentageOrdered B y: Dr. Almanzar on 06-08-2022 Basophil percentage 3.0 mg/dL 2.5-4.9 [facility] Basophils/100 WBC (Bld) 0.5 % 0-1 [facility] Bilirubin [Mass/Vol] 0.30 mg/dL 0.20-1.00 [facility] Comment on above: For patients on eltr ombopag therapy, use of Dimension [place] TBIL is not recommended. Chloride [Moles/Vol] 104 mmol/L 98-107 [facility] Cholesterol [Mass/Vol] 203 mg/dL <200 [facility] Comment on above: <200 mg/dL Desirable 200-240 mg/dL Borderline >240 mg/dL High Risk Eosinophils/100 WBC (Bld) 1.9 % 0-5 [facility] Glucose [Mass/Vol] 139 mg/dL 74-106 [facility] Comment on above: Fasting Glucose resu lt greater than or equal to 126 mg/dL suggests DIABETES MELLITUS per A.D.A. criteria. Neutrophils (Bld) [#/Vol] 4.2 10*3/uL 2.0-7.7 [facility] Neutrophils/100 WBC (Bld) 55.5 % 47-70 [facility] Potassium [Moles/Vol] 3.6 mmol/L 3.5-5.1 [facility] Protein [Mass/Vol] 7.6 g/dL 6.4-8.2 [facility] Sodium [Moles/Vol] 138 mmol/L 136-145 [facility] Triglyceride [Mass/Vol] 168 mg/dL <199 [facility] Comment on above: The drugs N-Acetylcy steine and Metamizole may falsely depress this assay.Serum Triglycerides Reference Interval Normal <150 mg/dL Borderline high 150 - 199 mg/dL High 200 - 499 mg/dL Very High > or = 500 mg/dL WBC (Bld) [#/Vol] 7.5 10*3/uL 4.4-11.0 [facility] Blood erythrocytes count (nu mber/volume)Ordered By: Dr. Almanzar on 06-08-2022 RBC (Bld) [#/Vol] 4.14 10*6/uL 4.2-5.4 [facility] Blood hemoglobin measurement (mass/volume)Ordered By: Dr. Almanzar on 06-08-2022 Hemoglobin (Bld) [Mass/Vol] 12.5 g/dL 12.0-15. 0 [facility] Blood lymphocytes/100 leukoc ytesOrdered By: Dr. Almanzar on 06-08-2022 Lymphocytes/100 WBC (Bld) 34.7 % 19-41 [facility] Blood monocytes/100 leukocyt esOrdered By: Dr. Almanzar on 06-08-2022 Monocytes/100 WBC (Bld) 7.0 % 0-10 [facility] Blood platelet mean volumeOr dered By: Dr. Almanzar on 06-08-2022 Platelet mean volume (Bld) [Entitic vol] 10.5 fL 6.2-12.0 [facility] Determination of erythrocyte mean corpuscular volume (MCV)Ordered By: Dr. Almanzar on 06-08-2022 MCV (RBC) [Entitic vol] 94.0 fL 81-99 [facility] Hematocrit Auto (Bld) [Volum e fraction]Ordered By: Dr. Almanzar on 06-08-2022 Hematocrit (Bld) [Volume fraction] 38.9 % 37-47 [facility] Iron measurement (mass/mass) Ordered By: Dr. Almanzar on 06-08-2022 Iron (Unsp spec) [Mass/Mass] 50 ug/dL 50-170 [facility] Laboratory - Chemistry and C hemistry - challengeOrdered By: Dr. Almanzar on 06-08-2022 ALP [Catalytic activity/Vol] 67 U/L 45-117 [facility] ALT [Catalytic activity/Vol] 33 U/L 13-56 [facility] CO2 [Moles/Vol] 26.0 mmol/L 21.0-32.0 [facility] Cobalamin (Vitamin B12) [Mass/Vol] 1183 pg/mL 211-911 [facility] Globulin (S) [Mass/Vol] 4.1 g/dL 2.2-4.2 [facility] Magnesium [Mass/Vol] 2.1 mg/dL 1.6-2.6 [facility] Urea nitrogen/Creatinine [Mass ratio] 26.8 mg/mg 10-20 [facility] Laboratory - Hematology and Cell countsOrdered By: Dr. Almanzar on 06-08-2022 Erythrocyte distribution width (RBC) [Entitic vol] 46.7 fL 35.1-43.9 [facility] Erythrocyte distribution width (RBC) [Ratio] 13.6 % 11.6-14.6 [facility] Immature granulocytes/100 WBC (Bld) 0.400 % 0.0-0.9 [facility] Comment on above: IG% - Immature Granu locytes (promyelocytes, myelocytes and metamyelocytes) > 1% indicates that a LEFT SHIFT is Present. MCH (RBC) [Entitic mass] 30.2 pg 27.0-32.0 [facility] Nucleated RBC/100 WBC (Bld) [Ratio] 0 % 0-5 [facility] MCHC Auto (RBC) [Mass/Vol]Or dered By: Dr. Almanzar on 06-08-2022 MCHC (RBC) [Mass/Vol] 32.1 g/dL 32-36 [facility] No Panel InformationOrdered By: Dr. Almanzar on 06-08-2022 Estimated GFR (MDRD) Amer 95 mL/min >60 [facility] Comment on above: GFR Calc Estimated GFR (MDRD) Non-Af Amer 78 mL/min >60 [facility] Comment on above: Non- GFR Calc Platelets bldOrdered By: Dr. Almanzar on 06-08-2022 Platelets (Bld) [#/Vol] 318 10*3/uL 150-450 [facility] Serum or plasma albumin jatin urement (mass/volume)Ordered By: Dr. Almanzar on 06-08-2022 Albumin [Mass/Vol] 3.5 g/dL 3.2-5.0 [facility] Serum or plasma albumin/glob ulin mass ratioOrdered By: Dr. Almanzar on 06-08-2022 Albumin/Globulin [Mass ratio] 0.9 {ratio} 0.9-2.4 [facility] Serum or plasma calcium jatin urement (mass/volume)Ordered By: Dr. Almanzar on 06-08-2022 Calcium [Mass/Vol] 9.1 mg/dL 8.5-10.1 [facility] Serum or plasma cholesterol in HDL measurement (mass/volume)Ordered By: Dr. Almanzar on 06-08-2022 Cholesterol in HDL [Mass/Vol] 51 mg/dL >40 [facility] Comment on above: The drugs N-Acetylcy steine and Metamizole may falsely depress this assay. Reference Range HDL <40 mg/dL Low HDL Cholesterol HDL >or= 60 mg/dL High HDL Cholesterol Serum or plasma cholesterol in VLDL measurement (mass/volume)Ordered By: Dr. Almanzar on 06-08-2022 Cholesterol in VLDL [Mass/Vol] 34 mg/dL 5-40 [facility] Serum or plasma creatinine m easurement (mass/volume)Ordered By: Dr. Almanzar on 06-08-2022 Creatinine [Mass/Vol] 0.78 mg/dL 0.55-1.02 [facility] Comment on above: The validity of the calculated GFR & GFRAA in patients over 70 years has not been determined. Clinical correlation is essential. Serum or plasma ferritin karina surement (mass/volume)Ordered By: Dr. Almanzar on 06-08-2022 Ferritin [Mass/Vol] 107 ng/mL 8-252 [facility] Serum or plasma low density lipoprotein (LDL) cholesterol measurement (mass/volume)Ordered By: Dr. Almanzar on 06-08-2022 Cholesterol in LDL [Mass/Vol] 118 mg/dL 0-130 [facility] Serum or plasma urea nitroge n measurement (mass/volume)Ordered By: Dr. Almanzar on 06-08-2022 Urea nitrogen [Mass/Vol] 21 mg/dL 7-18 [facility] Serum or plasma zinc measure ment (mass/volume)Ordered By: Dr. Almanzar on 06-08-2022 Zinc [Mass/Vol] 85 ug/dL 44-115 [facility] Comment on above: Detection Limit = 5P erformed at: [facility] - [facility] [address] [id number] Director: Kimberly Langford MD, Phone: [phone] Thin prep Papanicolaou smear with manual screeningOrdered By: Dr. Almanzar on 06-08-2022 Thin prep Papanicolaou smear with manual screening 24 U/L 15-37 [facility] Thin prep Papanicolaou smear with manual screening 8 5-15 [facility] Whole blood hemoglobin A1c/t otal hemoglobin ratio (mass fraction)Ordered By: Dr. Almanzar on 06-08-2022 HbA1c (Bld) [Mass fraction] 7.1 % 3.8-5.6 [facility] Comment on above: Normal < 5.7 % Predi abetic 5.7 - 6.4 % Diabetic >or= 6.5 % Please note range changes. Albumin Elph [Mass/Vol]Order ed By: Dr. Rasmussen on 05-15-2022 Albumin [Mass/Vol] 3.3 g/dL 2.9-4.4 [facility] Basophil percentageOrdered B y: Dr. Rasmussen on 05-15-2022 Basophil percentage Comment: . [facility] Comment on above: Presence of monoclon al protein is unclear at this time. Suggestrepeat in 3 to 6 months if clinically indicated.Performed at: [employer] [id number] Director: Herb Kincaid PhD, Phone: [phone] Interpretation of serum or p lasma protein pattern by immunofixation (narrative resultOrdered By: Dr. Rasmussen on 05-15-2022 Protein Fractions Immunofixation Arnav [Interp] See comment [facility] Comment on above: Result: Not Observed No Panel InformationOrdered By: Dr. Rasmussen on 05-15-2022 Addendum Document Comment . [facility] Comment on above: Protein electrophore sis scan will follow via computer,mail, or crane ladle person delivery. Serum [id number] measu rement by electrophoresisOrdered By: Dr. Rasmussen on 05-15-2022 Alpha 1 globulin Elph [Mass/Vol] 0.2 g/dL 0.0-0.4 [facility] Alpha 1 globulin Elph [Mass/Vol] 0.9 g/dL 0.4-1.0 [facility] Serum globulin measurement ( mass/volume)Ordered By: Dr. Rasmussen on 05-15-2022 Globulin (S) [Mass/Vol] 3.4 g/dL 2.2-3.9 [facility] Serum or plasma IgA measurem ent (mass/volume)Ordered By: Dr. Rasmussen on 05-15-2022 IgA [Mass/Vol] 173 mg/dL 87-352 [facility] Serum or plasma IgG measurem ent (mass/volume)Ordered By: Dr. Rasmussen on 05-15-2022 IgG [Mass/Vol] 1117 mg/dL 586-1602 [facility] Serum or plasma IgM measurem ent (mass/volume)Ordered By: Dr. Rasmussen on 05-15-2022 IgM [Mass/Vol] 109 mg/dL 26-217 [facility] Serum or plasma beta globuli n measurement by electrophoresis (mass/volume)Ordered By: Dr. Rasmussen on 05-15-2022 Beta globulin Elph [Mass/Vol] 1.1 g/dL 0.7-1.3 [facility] Serum or plasma gamma globul in measurement by electrophoresis (mass/volume)Ordered By: Dr. Rasmussen on 05-15-2022 Gamma globulin Elph [Mass/Vol] 1.2 g/dL 0.4-1.8 [facility] Serum or plasma immunoelectr ophoresis interpretation (nominal result)Ordered By: Dr. Rasmussen on 05-15-2022 Interpretation IEP [Interp] Comment: . [facility] Comment on above: Presence of monoclon al protein is unclear at this time. Suggestrepeat in 3 to 6 months if clinically indicated. Thin prep Papanicolaou smear with manual screeningOrdered By: Dr. Rasmussen on 05-15-2022 Thin prep Papanicolaou smear with manual screening 1.0 0.7-1.7 [facility] Total protein bloodOrdered B y: Dr. Rasmussen on 05-15-2022 Protein [Mass/Vol] 6.7 g/dL 6.0-8.5 [facility] No Panel Informationon 02-14 Free Lambda Light Chains, Quant 25.9 mg/L 5.7-26.3 [facility] Work Phone: Serum immunoglobulin kappa l ight chains/immunoglobulin lambda light chains mass ratioon 02-14-2022 Immunoglobulin light chains.kappa/Immunoglobulin light chains.lambda (S) [Mass ratio] 1.29 0.26-1.65 [facility] Work Phone: Comment on above: Performed at: [address] [id number] Director: Herb Kincaid PhD, Phone: [phone] Serum or plasma folate measu rement (mass/volume)on 02-14-2022 Folate [Mass/Vol] 38.00 ng/mL 3.1-55.4 [facility] Work Phone: Comment on above: Slight Hemolysis, Re sult may be falsely increased. Serum or plasma immunoglobul in kappa light chains measurement (mass/volume)on 02-14-2022 Immunoglobulin light chains.kappa [Mass/Vol] 33.4 mg/L 3.3-19.4 [facility] Work Phone: Absolute lymphocyte counton 11-23-2021 Lymphocytes Auto (Unsp spec) [#/Vol] 2.07 10*3/uL 0.83-4.51 [facility] Work Phone: Basophil percentageon 2021 Basophil percentage 5-10 SEEN /hpf 0-5 [facility] Work Phone: Basophil percentage 3.4 mg/dL 2.5-4.9 [facility] Work [facility]: Basophils/100 WBC (Bld) 0.6 % 0-1 [facility] Work Phone: Bilirubin [Mass/Vol] 0.40 mg/dL 0.20-1.00 [facility] Work Phone: Comment on above: For patients on eltr ombopag therapy, use of Dimension [place] TBIL is not recommended. Chloride [Moles/Vol] 103 mmol/L 98-107 [facility] Work Phone: Cholesterol [Mass/Vol] 212 mg/dL <200 [facility] Work Phone: Comment on above: <200 mg/dL Desirable 200-240 mg/dL Borderline >240 mg/dL High Risk Eosinophils/100 WBC (Bld) 1.9 % 0-5 [facility] Work Phone: Glucose [Mass/Vol] 138 mg/dL 74-106 [facility] Work Phone: Comment on above: Fasting Glucose resu lt greater than or equal to 126 mg/dL suggests DIABETES MELLITUS per A.D.A. criteria. Neutrophils (Bld) [#/Vol] 4.2 10*3/uL 2.0-7.7 [facility] Work Phone: Neutrophils/100 WBC (Bld) 60.6 % 47-70 [facility] Work Phone: Potassium [Moles/Vol] 3.7 mmol/L 3.5-5.1 [facility] Work Phone: Protein [Mass/Vol] 7.7 g/dL 6.4-8.2 [facility] Work Phone: Sodium [Moles/Vol] 138 mmol/L 136-145 [facility] Work Phone: Triglyceride [Mass/Vol] 201 mg/dL <199 [facility] Work Phone: Comment on above: The drugs N-Acetylcy steine and Metamizole may falsely depress this assay.Serum Triglycerides Reference Interval Normal <150 mg/dL Borderline high 150 - 199 mg/dL High 200 - 499 mg/dL Very High > or = 500 mg/dL WBC (Bld) [#/Vol] 6.9 10*3/uL 4.4-11.0 [facility] Work Phone: Bilirubin Test strip Ql (U)o n 11-23-2021 Bilirubin Ql (U) Negative Negative [facility] Work Phone: Blood erythrocytes count (nu mber/volume)on 11-23-2021 RBC (Bld) [#/Vol] 4.15 10*6/uL 4.2-5.4 [facility] Work Phone: Blood hemoglobin measurement (mass/volume)on 11-23-2021 Hemoglobin (Bld) [Mass/Vol] 12.5 g/dL 12.0-15. 0 [facility] Work Phone: Blood lymphocytes/100 leukoc yteson 11-23-2021 Lymphocytes/100 WBC (Bld) 29.9 % 19-41 [facility] Work Phone: Blood monocytes/100 leukocyt eson 11-23-2021 Monocytes/100 WBC (Bld) 6.6 % 0-10 [facility] Work Phone: Blood platelet mean volumeon 11-23-2021 Platelet mean volume (Bld) [Entitic vol] 10.6 fL 6.2-12.0 [facility] Work Phone: Determination of erythrocyte mean corpuscular volume (MCV)on 11-23-2021 MCV (RBC) [Entitic vol] 94.2 fL 81-99 [facility] Work Phone: Hematocrit Auto (Bld) [Volum e fraction]on 11-23-2021 Hematocrit (Bld) [Volume fraction] 39.1 % 37-47 [facility] Work Phone: Iron measurement (mass/mass) on 11-23-2021 Iron (Unsp spec) [Mass/Mass] 44 ug/dL 50-170 [facility] Work Phone: Ketones Test strip Ql (U)on 11-23-2021 Ketones Ql (U) Negative Negative [facility] Work Phone: Laboratory - Chemistry and C hemistry - challengeon 11-23-2021 ALP [Catalytic activity/Vol] 64 U/L 45-117 [facility] Work Phone: ALT [Catalytic activity/Vol] 38 U/L 13-56 [facility] Work Phone: CO2 [Moles/Vol] 27.0 mmol/L 21.0-32.0 [facility] Work Phone: Cobalamin (Vitamin B12) [Mass/Vol] 1434 pg/mL 211-911 [facility] Work Phone: Globulin (S) [Mass/Vol] 4.2 g/dL 2.2-4.2 [facility] Work Phone: Magnesium [Mass/Vol] 2.3 mg/dL 1.6-2.6 [facility] Work Phone: Urea nitrogen/Creatinine [Mass ratio] 23.1 mg/mg 10-20 [facility] Work Phone: Laboratory - Hematology and Cell countson 11-23-2021 Erythrocyte distribution width (RBC) [Entitic vol] 47.2 fL 35.1-43.9 [facility] Work Phone: Erythrocyte distribution width (RBC) [Ratio] 13.7 % 11.6-14.6 [facility] Work Phone: Immature granulocytes/100 WBC (Bld) 0.400 % 0.0-0.9 [facility] Work Phone: Comment on above: IG% - Immature Granu locytes (promyelocytes, myelocytes and metamyelocytes) > 1% indicates that a LEFT SHIFT is Present. MCH (RBC) [Entitic mass] 30.1 pg 27.0-32.0 [facility] Work Phone: Nucleated RBC/100 WBC (Bld) [Ratio] 0 % 0-5 [facility] Work Phone: MCHC Auto (RBC) [Mass/Vol]on 11-23-2021 MCHC (RBC) [Mass/Vol] 32.0 g/dL 32-36 [facility] Work Phone: Mucus LM Ql (Urine sed)on Mucus Ql (Urine sed) 0 SEEN /hpf [facility] Work Phone: Nitrite Test strip Ql (U)on 11-23-2021 Nitrite Ql (U) Negative Negative [facility] Work Phone: No Panel Informationon 11-23 Estimated GFR (MDRD) Amer 90 mL/min >60 [facility] Work Phone: Comment on above: GFR Calc Estimated GFR (MDRD) Non-Af Amer 74 mL/min >60 [facility] Work Phone: Comment on above: Non- GFR Calc Thyroid Stimulating Hormone (TSH) 1.69 uIU/mL 0.358-3.74 [facility] Work Phone: Urine Microalbumin/Creatinine Ratio 33.0 mg/g CRE <30 [facility] Work Phone: Platelets bldon 11-23-2021 Platelets (Bld) [#/Vol] 299 10*3/uL 150-450 [facility] Work Phone: Protein Test strip Ql (U)on 11-23-2021 Protein Ql (U) Negative Negative [facility] Work Phone: Serum or plasma albumin jatin urement (mass/volume)on 11-23-2021 Albumin [Mass/Vol] 3.5 g/dL 3.2-5.0 [facility] Work Phone: Serum or plasma albumin/glob ulin mass ratioon 11-23-2021 Albumin/Globulin [Mass ratio] 0.8 {ratio} 0.9-2.4 [facility] Work Phone: Serum or plasma calcium jatin urement (mass/volume)on 11-23-2021 Calcium [Mass/Vol] 8.5 mg/dL 8.5-10.1 [facility] Work Phone: Serum or plasma cholesterol in HDL measurement (mass/volume)on 11-23-2021 Cholesterol in HDL [Mass/Vol] 45 mg/dL >40 [facility] Work Phone: Comment on above: The drugs N-Acetylcy steine and Metamizole may falsely depress this assay. Reference Range HDL <40 mg/dL Low HDL Cholesterol HDL >or= 60 mg/dL High HDL Cholesterol Serum or plasma cholesterol in VLDL measurement (mass/volume)on 11-23-2021 Cholesterol in VLDL [Mass/Vol] 40 mg/dL 5-40 [facility] Work Phone: Serum or plasma creatinine m easurement (mass/volume)on 11-23-2021 Creatinine [Mass/Vol] 0.82 mg/dL 0.55-1.02 [facility] Work Phone: Comment on above: The validity of the calculated GFR & GFRAA in patients over 70 years has not been determined. Clinical correlation is essential. Serum or plasma ferritin karina surement (mass/volume)on 11-23-2021 Ferritin [Mass/Vol] 174 ng/mL 8-252 [facility] Work Phone: Serum or plasma low density lipoprotein (LDL) cholesterol measurement (mass/volume)on 11-23-2021 Cholesterol in LDL [Mass/Vol] 127 mg/dL 0-130 [facility] Work Phone: Serum or plasma urea nitroge n measurement (mass/volume)on 11-23-2021 Urea nitrogen [Mass/Vol] 19 mg/dL 7-18 [facility] Work Phone: Serum or plasma zinc measure ment (mass/volume)on 11-23-2021 Zinc [Mass/Vol] 84 ug/dL 44-115 [facility] Work Phone: Comment on above: Detection Limit = 5P erformed at: - [facility] [address] [id number] Director: Kimberly Langford MD, Phone: [phone] Squamous epithelial cells de tection in urine sediment by light microscopyon 11-23-2021 Epithelial cells.squamous LM Ql (Urine sed) 5-10 SEEN /hpf 5-10 [facility] Work Phone: Thin prep Papanicolaou smear with manual screeningon 11-23-2021 Thin prep Papanicolaou smear with manual screening 23 U/L 15-37 [facility] Work Phone: Thin prep Papanicolaou smear with manual screening 8 5-15 [facility] Work Phone: Thin prep Papanicolaou smear with manual screening 15.1 mg/L NO RANGE EST. [facility] Work Phone: Urine blood detectionon 05- RBC Ql (U) 10 /ul Negative [facility] Work Phone: RBC Ql (U) 0 SEEN /hpf 0-5 [facility] Work Phone: Urine clarityon 11-23-2021 Clarity (U) Clear Clear [facility] Work Phone: Urine color determinationon 11-23-2021 Color (U) Yellow Yellow [facility] Work Phone: Urine creatinine measurement (mass/volume)on 11-23-2021 Creatinine (U) [Mass/Vol] 45.70 mg/dL NO RANGE EST. [facility] Work Phone: Urine glucose detectionon Glucose Ql (U) Normal mg/dl Normal [facility] Work Phone: Urine leukocyte esterase det ection by dipstickon 11-23-2021 Leukocyte esterase Test strip Ql (U) 500 /ul Negative [facility] Work Phone: Urine pHon 11-23-2021 pH (U) 6.0 [pH] 5.0 - 8.0 [facility] Work Phone: Urine sediment bacteria coun t by microscopy (number/high power field)on 11-23-2021 Bacteria LM.HPF (Urine sed) [#/Area] RARE /hpf None Seen [facility] Work Phone: Urine specific gravity measu rementon 11-23-2021 Specific gravity (U) [Rel density] 1.010 1.002-1.030 [facility] Work Phone: Urobilinogen Auto test strip Ql (U)on 11-23-2021 Urobilinogen Ql (U) Normal mg/dl Normal [facility] Work Phone: Whole blood hemoglobin A1c/t otal hemoglobin ratio (mass fraction)on 11-23-2021 HbA1c (Bld) [Mass fraction] 6.3 % 3.8-5.6 [facility] Work Phone: Comment on above: Normal < 5.7 % Predi abetic 5.7 - 6.4 % Diabetic >or= 6.5 % Please note range changes. COVID PCR, SCREENING CONGREG ATEon 01-15-2020 CORONAVIRUS 2019,PCR NOT DETECTED Normal Not Detected [facility] Comment on above: Result Comment: This assay [...] patient management decisions. Fact sheet for providers: https://www.fda.gov/media/741830/download Fact sheet for patients: https://www.fda.gov/media/410197/download This test has received FDA Emergency Use Authorization (EUA) and has been verified by [facility] ([facility]). This test is only authorized for the duration of time that circumstances exist to justify the authorization of the emergency use of in vitro diagnostic tests for the detection of SARS-CoV-2 virus and/or diagnosis of COVID-19 infection under section 564(b)(1) of the Act, 21 U.S.C. 360bbb-3(b)(1), unless the authorization is terminated or revoked sooner. [facility] ([facility]) is certified under CLIA-88 as qualified to perform high complexity testing. This tests analytical performance characteristics have been determined by [facility]. Testing is performed at [facility] is located at [address] [place] [address] (CLIA License #[id number], CAP #[id number]). Performed By: #### C VCLA #### [facility] [address] [place] [address] COVID PCR, SCREENING CONGREG ATEon 01-14-2020 Lab Specimen Source Nasal, Nasopharyngeal Normal [facility] Comment on above: Performed By: #### C VCLA #### [facility] [address] [place] [address] Lab Report: Bedside Glucoseo n 01-24-2017 Glucose 118 mg/dL High 70-110 [facility] Work Phone: Vital Signs Date Time Vital Sign Value Performing Clinician Facility 05-04-2025 13:11-0400 Body temperature 97.8 [degF] Meir Zepeda MD Work Phone: [facility] 05-04-2025 13:11-0400 Body weight 103.78 kg Meir Zepeda MD Work Phone: [facility] 05-04-2025 13:11-0400 Diastolic blood pressure 60 mm[Hg] Meir Zepeda MD Work Phone: 6(132)[phone] [address] 05-04-2025 13:11-0400 Heart rate 85 /min Meir Zepeda MD Work Phone: 6(909)[phone] [address] 05-04-2025 13:11-0400 Respiratory rate 17 /min Meir Zepeda MD Work Phone: 2(982)[phone] [place] [address] 05-04-2025 13:11-0400 SaO2% (BldA) [Mass fraction] 96 % Meir Zepeda MD Work Phone: 0(580)[phone] [place] [address] 05-04-2025 13:11-0400 Systolic blood pressure 116 mm[Hg] Meir Zepeda MD Work Phone: 5(823)[phone] [address] 05-04-2025 10:36-0400 Body height 164.31 cm Meir Zepeda MD Work Phone: 4(030)[phone] [place] [address] 05-04-2025 10:36-0400 Body mass index (BMI) [Ratio] 38.5 kg/m2 Meir Zepeda MD Work Phone: 1(336)437-849366 [place] [address] 05-04-2025 10:36-0400 Body weight 103.87 kg Meir Zepeda MD Work Phone: 6(430)[phone] [place] [address] 04-04-2025 12:33-0400 Body temperature 97.5 [degF] Meir Zepeda MD Work Phone: [facility] 04-04-2025 12:33-0400 Diastolic blood pressure 62 mm[Hg] Meir Zepeda MD Work Phone: 3(043)133-529766 [place] [address] 04-04-2025 12:33-0400 Heart rate 95 /min Meir Zepeda MD Work Phone: [facility] 04-04-2025 12:33-0400 Respiratory rate 15 /min Meir Zepeda MD Work Phone: [facility] 04-04-2025 12:33-0400 SaO2% (BldA) [Mass fraction] 96 % Meir Zepeda MD Work Phone: [facility] 04-04-2025 12:33-0400 Systolic blood pressure 148 mm[Hg] Meir Zepeda MD Work Phone: [facility] 04-01-2025 06:00-0400 Body mass index (BMI) [Ratio] 38.8 kg/m2 Meir Zepeda MD Work Phone: [facility] 04-01-2025 06:00-0400 Body weight 105.7 kg Meir Zepeda MD Work Phone: [facility] 03-31-2025 12:05-0400 Body height 165 cm Meir Zepeda MD Work Phone: [facility] 03-27-2025 17:28-0400 Inhaled oxygen concentration 96 % Meir Zepeda MD Work Phone: [facility] 03-27-2025 08:00-0400 Body temperature 98.4 [degF] Meir Zepeda MD Work Phone: [facility] 03-27-2025 08:00-0400 Diastolic blood pressure 60 mm[Hg] Meir Zepeda MD Work Phone: [facility] [facility] 03-27-2025 08:00-0400 Heart rate 79 /min Meir Zepeda MD Work Phone: [facility] 03-27-2025 08:00-0400 Respiratory rate 16 /min Meir Zepeda MD Work Phone: [facility] 03-27-2025 08:00-0400 SaO2% (BldA) [Mass fraction] 98 % Meir Zepeda MD Work Phone: [facility] 03-27-2025 08:00-0400 Systolic blood pressure 143 mm[Hg] Meir Zepeda MD Work Phone: [facility] 03-27-2025 03:00-0400 Inhaled oxygen concentration 97 % Meir Zepeda MD Work Phone: [facility] 03-27-2025 03:00-0400 Inhaled oxygen flow rate 2 L/min Meir Zepeda MD Work Phone: [facility] 03-24-2025 12:39-0400 Body height 165.1 cm Meir Zepeda MD Work Phone: [facility] 03-24-2025 12:39-0400 Body mass index (BMI) [Ratio] 37.5 kg/m2 Meir Zepeda MD Work Phone: [facility] 03-24-2025 12:39-0400 Body weight 102.5 kg Meir Zepeda MD Work Phone: [facility] 03-13-2025 09:47-0400 Body height 165.1 cm Manuela Montana APRN.SMOKING PIPE REPAIRER Work Phone: [facility] 03-13-2025 09:47-0400 Body mass index (BMI) [Ratio] 38.27 kg/m2 Manuela Montana APRN.SMOKING PIPE REPAIRER Work Phone: [facility] 03-13-2025 09:47-0400 Body weight 104.33 kg Manuela Montana APRN.SMOKING PIPE REPAIRER Work Phone: [facility] 03-13-2025 09:47-0400 Diastolic blood pressure 80 mm[Hg] Manuela Montana APRN.SMOKING PIPE REPAIRER Work Phone: [facility] 03-13-2025 09:47-0400 Heart rate 84 /min Manuela Montana APRN.SMOKING PIPE REPAIRER Work Phone: [facility] 03-13-2025 09:47-0400 Respiratory rate 14 /min Manuela Montana APRN.SMOKING PIPE REPAIRER Work Phone: [facility] 03-13-2025 09:47-0400 SaO2% (BldA) [Mass fraction] 96 % Manuela Montana APRN.SMOKING PIPE REPAIRER Work Phone: [facility] 03-13-2025 09:47-0400 Systolic blood pressure 122 mm[Hg] Manuela Montana APRN.SMOKING PIPE REPAIRER Work Phone: [facility] 03-09-2025 11:25-0400 Body temperature 98.4 [degF] Meir Zepeda MD Work Phone: [facility] 03-09-2025 11:25-0400 Diastolic blood pressure 75 mm[Hg] Meir Zepeda MD Work Phone: [facility] 03-09-2025 11:25-0400 Heart rate 83 /min Meir Zepeda MD Work Phone: [facility] 03-09-2025 11:25-0400 Respiratory rate 16 /min Meir Zepeda MD Work Phone: [facility] 03-09-2025 11:25-0400 SaO2% (BldA) [Mass fraction] 96 % Meir Zepeda MD Work Phone: [facility] 03-09-2025 11:25-0400 Systolic blood pressure 151 mm[Hg] Meir Zepeda MD Work Phone: [facility] 02-25-2025 09:53-0400 Body height 165.1 cm Meir Zepeda MD Work Phone: [facility] 02-25-2025 09:53-0400 Body mass index (BMI) [Ratio] 37 kg/m2 Meir Zepeda MD Work Phone: [facility] 02-25-2025 09:53-0400 Body weight 101.15 kg Meir Zepeda MD Work Phone: [facility] 01-29-2025 10:48-0400 Body height 165.1 cm Meir Zepeda MD Work Phone: [facility] 01-29-2025 10:48-0400 Body mass index (BMI) [Ratio] 38.6 kg/m2 Meir Zepeda MD Work Phone: [facility] 01-29-2025 10:48-0400 Body temperature 97.8 [degF] Meir Zepeda MD Work Phone: [facility] 01-29-2025 10:48-0400 Body weight 105.23 kg Meir Zepeda MD Work Phone: [facility] 01-29-2025 10:48-0400 Diastolic blood pressure 71 mm[Hg] Meir Zepeda MD Work Phone: [facility] 01-29-2025 10:48-0400 Heart rate 89 /min Meir Zepeda MD Work Phone: [facility] 01-29-2025 10:48-0400 Respiratory rate 15 /min Meir Zepeda MD Work Phone: [facility] 01-29-2025 10:48-0400 SaO2% (BldA) [Mass fraction] 97 % Meir Zepeda MD Work Phone: [facility] 01-29-2025 10:48-0400 Systolic blood pressure 130 mm[Hg] Meir Zepeda MD Work Phone: [facility] 01-12-2025 15:00-0400 Body temperature 99.4 [degF] Deysi Albaer DO Work Phone: [facility] 01-12-2025 15:00-0400 Diastolic blood pressure 81 mm[Hg] Deysi Matthew DO Work Phone: [facility] 01-12-2025 15:00-0400 Heart rate 77 /min Deysi Matthew DO Work Phone: [facility] 01-12-2025 15:00-0400 Respiratory rate 12 /min Deysi Matthew DO Work Phone: [facility] 01-12-2025 15:00-0400 SaO2% (BldA) [Mass fraction] 97 % Deysi Matthew DO Work Phone: [facility] 01-12-2025 15:00-0400 Systolic blood pressure 160 mm[Hg] Deysi Castro DO Work Phone: [facility] 01-12-2025 12:34-0400 Body height 165.1 cm Deysi Castro DO Work Phone: [facility] 01-12-2025 12:34-0400 Body mass index (BMI) [Ratio] 39.2 kg/m2 Deysi Castro DO Work Phone: [facility] 01-12-2025 12:34-0400 Body weight 107.09 kg Deysi Castro DO Work Phone: [facility] 12-27-2024 10:17-0400 Body mass index (BMI) [Ratio] 38.59 kg/m2 Leonardo Moomaw REGIONAL ENVIRONMENTAL MANAGER.SMOKING PIPE REPAIRER Work Phone: [facility] 12-27-2024 10:17-0400 Body temperature 97.11 [degF] Leonardo Moomaw REGIONAL ENVIRONMENTAL MANAGER.SMOKING PIPE REPAIRER Work Phone: [facility] 12-27-2024 10:17-0400 Body weight 106.8 kg Leonardo Moomaw REGIONAL ENVIRONMENTAL MANAGER.SMOKING PIPE REPAIRER Work Phone: [facility] 12-27-2024 10:17-0400 Diastolic blood pressure 58 mm[Hg] Leonardo Moomaw REGIONAL ENVIRONMENTAL MANAGER.SMOKING PIPE REPAIRER Work Phone: [facility] 12-27-2024 10:17-0400 Heart rate 86 /min Leonardo Moomaw REGIONAL ENVIRONMENTAL MANAGER.SMOKING PIPE REPAIRER Work Phone: [facility] 12-27-2024 10:17-0400 Respiratory rate 21 /min Leonardo Moomaw REGIONAL ENVIRONMENTAL MANAGER.SMOKING PIPE REPAIRER Work Phone: [facility] 12-27-2024 10:17-0400 SaO2% (BldA) [Mass fraction] 96 % Leonardo Moomaw REGIONAL ENVIRONMENTAL MANAGER.SMOKING PIPE REPAIRER Work Phone: [facility] 12-27-2024 10:17-0400 Systolic blood pressure 110 mm[Hg] Leonardo Moomaw REGIONAL ENVIRONMENTAL MANAGER.SMOKING PIPE REPAIRER Work Phone: [facility] 12-08-2024 11:57-0400 Body temperature 98 [degF] Meir Zepeda MD Work Phone: [facility] 12-08-2024 11:57-0400 Diastolic blood pressure 71 mm[Hg] Meir Zepeda MD Work Phone: [facility] 12-08-2024 11:57-0400 Heart rate 80 /min Meir Zepeda MD Work Phone: [facility] 12-08-2024 11:57-0400 Respiratory rate 17 /min Meir Zepeda MD Work Phone: [facility] 12-08-2024 11:57-0400 SaO2% (BldA) [Mass fraction] 96 % Meir Zepeda MD Work Phone: [facility] 12-08-2024 11:57-0400 Systolic blood pressure 147 mm[Hg] Meir Zepeda MD Work Phone: [facility] 11-21-2024 10:15-0400 Body height 165.1 cm Meir Zepeda MD Work Phone: [facility] 11-21-2024 10:15-0400 Body mass index (BMI) [Ratio] 38.3 kg/m2 Meir Zepeda MD Work Phone: [facility] 11-21-2024 10:15-0400 Body weight 104.55 kg Meir Zepeda MD Work Phone: [facility] 11-06-2024 11:37-0400 Body height 165.[address] Gilberto Rasmussen MD Work Phone: [facility] 11-06-2024 11:37-0400 Body mass index (BMI) [Ratio] 39.1 kg/m2 Dr. Gilberto Rasmussen MD Work Phone: [facility] 11-06-2024 11:37-0400 Body temperature 97.8 [degF] Dr. Gilberto Rasmussen MD Work Phone: [facility] 11-06-2024 11:37-0400 Body weight 106.[address] Gilberto Rasmussen MD Work Phone: [facility] 11-06-2024 11:37-0400 Diastolic blood pressure 60 mm[Hg] Dr. Gilberto Rasmussen MD Work Phone: [facility] 11-06-2024 11:37-0400 Heart rate 99 /min Dr. Gilberto Rasmussen MD Work Phone: [facility] 11-06-2024 11:37-0400 Respiratory rate 17 /min Dr. Gilberto Rasmussen MD Work Phone: [facility] 11-06-2024 11:37-0400 SaO2% (BldA) [Mass fraction] 96 % Dr. Gilberto Rasmussen MD Work Phone: [facility] 11-06-2024 11:37-0400 Systolic blood pressure 112 mm[Hg] Dr. Gilberto Rasmussen MD Work Phone: [facility] 10-06-2024 11:30-0400 Body height 165.1 cm Meir Zepeda MD Work Phone: [facility] 10-06-2024 11:30-0400 Body mass index (BMI) [Ratio] 40.2 kg/m2 Meir Zepeda MD Work Phone: [facility] 10-06-2024 11:30-0400 Body temperature 98.2 [degF] Meir Zepeda MD Work Phone: [facility] 10-06-2024 11:30-0400 Body weight 109.76 kg Meir Zepeda MD Work Phone: [facility] 10-06-2024 11:30-0400 Diastolic blood pressure 73 mm[Hg] Meir Zepeda MD Work Phone: [facility] 10-06-2024 11:30-0400 Heart rate 79 /min Meir Zepeda MD Work Phone: [facility] 10-06-2024 11:30-0400 Respiratory rate 18 /min Meir Zepeda MD Work Phone: [facility] 10-06-2024 11:30-0400 SaO2% (BldA) [Mass fraction] 96 % Meir Zepeda MD Work Phone: [facility] 10-06-2024 11:30-0400 Systolic blood pressure 117 mm[Hg] Meir Zepeda MD Work Phone: [facility] 10-02-2024 11:48-0400 Body mass index (BMI) [Ratio] 39.9 kg/m2 Meir Zepeda MD Work Phone: [facility] 10-02-2024 11:48-0400 Body temperature 97.8 [degF] Meir Zepeda MD Work Phone: [phone] [place] [address] 10-02-2024 11:48-0400 Body weight 108.86 kg Meir Zepeda MD Work Phone: [facility] 10-02-2024 11:48-0400 Diastolic blood pressure 58 mm[Hg] Meir Zepeda MD Work Phone: [facility] 10-02-2024 11:48-0400 Heart rate 80 /min Meir Zepeda MD Work Phone: [facility] 10-02-2024 11:48-0400 Respiratory rate 17 /min Meir Zepeda MD Work Phone: [facility] 10-02-2024 11:48-0400 SaO2% (BldA) [Mass fraction] 97 % Meir Zepeda MD Work Phone: [facility] 10-02-2024 11:48-0400 Systolic blood pressure 118 mm[Hg] Meir Zepeda MD Work Phone: [facility] 09-02-2024 11:00-0500 Body mass index (BMI) [Ratio] 40.4 kg/m2 Meir Zepeda MD Work Phone: [facility] 09-02-2024 11:00-0500 Body temperature 97.8 [degF] Meir Zepeda MD Work Phone: [facility] 09-02-2024 11:00-0500 Body weight 110.22 kg Meir Zepeda MD Work Phone: [facility] 09-02-2024 11:00-0500 Diastolic blood pressure 50 mm[Hg] Meir Zepeda MD Work Phone: [facility] 09-02-2024 11:00-0500 Heart rate 107 /min Meir Zepeda MD Work Phone: [facility] 09-02-2024 11:00-0500 Respiratory rate 17 /min Meir Zepeda MD Work Phone: [facility] 09-02-2024 11:00-0500 SaO2% (BldA) [Mass fraction] 96 % Meir Zepeda MD Work Phone: [facility] 09-02-2024 11:00-0500 Systolic blood pressure 114 mm[Hg] Meir Zepeda MD Work Phone: [facility] 07-31-2024 14:23-0500 Diastolic blood pressure 76 mm[Hg] Meir Zepeda MD Work Phone: [facility] 07-31-2024 14:23-0500 Heart rate 96 /min Meir Zepeda MD Work Phone: [facility] 07-31-2024 14:23-0500 Systolic blood pressure 148 mm[Hg] Meir Zepeda MD Work Phone: [facility] 07-31-2024 13:30-0500 Body mass index (BMI) [Ratio] 41.1 kg/m2 Meir Zepeda MD Work Phone: [facility] 07-31-2024 13:30-0500 Body temperature 97.3 [degF] Meir Zepeda MD Work Phone: [facility] 07-31-2024 13:30-0500 Body weight 112.03 kg Meir Zepeda MD Work Phone: [facility] 07-31-2024 13:30-0500 Respiratory rate 15 /min Meir Zepeda MD Work Phone: [facility] 07-31-2024 13:30-0500 SaO2% (BldA) [Mass fraction] 97 % Meir Zepeda MD Work Phone: [facility] 11-06-2023 13:53-0400 Body height 165.1 cm DO Deysi Matthew Work Phone: [facility] 11-06-2023 13:53-0400 Body mass index (BMI) [Ratio] 39.9 kg/m2 DO Deysi Matthew Work Phone: [facility] 11-06-2023 13:53-0400 Body temperature 97.8 [degF] DO Deysi Matthew Work Phone: [facility] 11-06-2023 13:53-0400 Body weight 108.86 kg DO Deysi Matthew Work Phone: [facility] 11-06-2023 13:53-0400 Diastolic blood pressure 50 mm[Hg] DO Deysi Matthew Work Phone: [facility] 11-06-2023 13:53-0400 Heart rate 88 /min DO Deysi Matthew Work Phone: [facility] 11-06-2023 13:53-0400 Respiratory rate 17 /min DO Deysi Matthew Work Phone: [facility] 11-06-2023 13:53-0400 SaO2% (BldA) [Mass fraction] 98 % DO Deysi Matthew Work Phone: [facility] 11-06-2023 13:53-0400 Systolic blood pressure 110 mm[Hg] DO Deysi Matthew Work Phone: [facility] 11-05-2023 10:00-0400 Body weight 109.13 kg DO Deysi Matthew Work Phone: [facility] 10-19-2023 16:09-0400 Body height 165.1 cm DO Deysimindi Mayfieldnger Work Phone: [facility] 10-19-2023 16:09-0400 Body mass index (BMI) [Ratio] 39.9 kg/m2 DO Deysi Matthew Work Phone: [facility] 10-19-2023 16:09-0400 Body temperature 98 [degF] DO Deysi Matthew Work Phone: [facility] 10-19-2023 16:09-0400 Body weight 108.86 kg DO Deysi Matthew Work Phone: [facility] 10-19-2023 16:09-0400 Heart rate 74 /min DO Deysi Matthew Work Phone: [facility] 10-19-2023 16:09-0400 Respiratory rate 17 /min DO Deysi Matthew Work Phone: [facility] 10-19-2023 16:09-0400 SaO2% (BldA) [Mass fraction] 98 % DO Deysi Matthew Work Phone: [facility] 10-11-2023 13:15-0400 Body mass index (BMI) [Ratio] 41.2 kg/m2 DO Deysi Matthew Work Phone: [facility] 10-11-2023 13:15-0400 Body temperature 97.8 [degF] DO Deysi Matthew Work Phone: [facility] 10-11-2023 13:15-0400 Body weight 112.49 kg DO Deysi Matthew Work Phone: [facility] 10-11-2023 13:15-0400 Diastolic blood pressure 70 mm[Hg] DO Deysi Matthew Work Phone: [facility] 10-11-2023 13:15-0400 Heart rate 89 /min DO Deysi Matthew Work Phone: [facility] 10-11-2023 13:15-0400 Respiratory rate 17 /min DO Deysi Matthew Work Phone: [facility] 10-11-2023 13:15-0400 SaO2% (BldA) [Mass fraction] 95 % DO Deysi Matthew Work Phone: [facility] 10-11-2023 13:15-0400 Systolic blood pressure 138 mm[Hg] DO Deysi Matthew Work Phone: [facility] 10-08-2023 11:29-0400 Body mass index (BMI) [Ratio] 40.8 kg/m2 DO Deysi Matthew Work Phone: [facility] 10-08-2023 11:29-0400 Body temperature 98.2 [degF] DO Deysi Matthew Work Phone: [facility] 10-08-2023 11:29-0400 Body weight 111.15 kg DO Deysi Matthew Work Phone: [facility] 10-08-2023 11:29-0400 Diastolic blood pressure 73 mm[Hg] DO Deysi Matthew Work Phone: [facility] 10-08-2023 11:29-0400 Heart rate 79 /min DO Deysi Matthew Work Phone: [facility] 10-08-2023 11:29-0400 Respiratory rate 18 /min DO Deysi Matthew Work Phone: [facility] 10-08-2023 11:29-0400 SaO2% (BldA) [Mass fraction] 97 % DO Deysi Matthew Work Phone: [facility] 10-08-2023 11:29-0400 Systolic blood pressure 107 mm[Hg] DO Deysi Matthew Work Phone: [facility] 09-11-2023 13:20-0500 Body height 165.1 cm DO Deysi Matthew Work Phone: [facility] 09-11-2023 13:20-0500 Body mass index (BMI) [Ratio] 39.9 kg/m2 DO Deysi Matthew Work Phone: [facility] 09-11-2023 13:20-0500 Body temperature 97.8 [degF] DO Deysi Matthew Work Phone: [facility] 09-11-2023 13:20-0500 Body weight 108.86 kg DO Deysi Matthew Work Phone: [facility] 09-11-2023 13:20-0500 Diastolic blood pressure 60 mm[Hg] DO Deysi Matthew Work Phone: [facility] 09-11-2023 13:20-0500 Heart rate 91 /min DO Deysi Matthew Work Phone: [facility] 09-11-2023 13:20-0500 Respiratory rate 17 /min DO Deysi Matthew Work Phone: [facility] 09-11-2023 13:20-0500 SaO2% (BldA) [Mass fraction] 97 % DO Deysi Matthew Work Phone: [facility] 09-11-2023 13:20-0500 Systolic blood pressure 116 mm[Hg] DO Deysi Matthew Work Phone: [facility] 08-09-2023 13:08-0500 Body temperature 98 [degF] DO Deysi Matthew Work Phone: [facility] 08-09-2023 13:08-0500 Body weight 110.73 kg DO Deysi Matthew Work Phone: [facility] 08-09-2023 13:08-0500 Diastolic blood pressure 77 mm[Hg] DO Deysi Matthew Work Phone: [facility] 08-09-2023 13:08-0500 Heart rate 98 /min DO Deysi Matthew Work Phone: [facility] 08-09-2023 13:08-0500 Respiratory rate 14 /min DO Deysi Matthew Work Phone: [facility] 08-09-2023 13:08-0500 SaO2% (BldA) [Mass fraction] 98 % DO Deysi Matthew Work Phone: [facility] 08-09-2023 13:08-0500 Systolic blood pressure 118 mm[Hg] DO Deysi Matthew Work Phone: [facility] 07-25-2023 08:45-0500 Body temperature 97.9 [degF] DO Deysi Matthew Work Phone: [facility] 07-25-2023 08:45-0500 Diastolic blood pressure 72 mm[Hg] DO Deysi Matthew Work Phone: [facility] 07-25-2023 08:45-0500 Heart rate 96 /min DO Deysi Matthew Work Phone: [facility] 07-25-2023 08:45-0500 Respiratory rate 17 /min DO Deysi Matthew Work Phone: [facility] 07-25-2023 08:45-0500 SaO2% (BldA) [Mass fraction] 96 % DO Deysi Matthew Work Phone: [facility] 07-25-2023 08:45-0500 Systolic blood pressure 148 mm[Hg] DO Deysi Matthew Work Phone: [facility] 07-10-2023 13:31-0500 Body height 165.1 cm DO Deysi Matthew Work Phone: [facility] 07-10-2023 13:31-0500 Body mass index (BMI) [Ratio] 41.5 kg/m2 DO Deysi Matthew Work Phone: [facility] 07-10-2023 13:31-0500 Body temperature 97.8 [degF] DO Deysi Matthew Work Phone: [facility] 07-10-2023 13:31-0500 Body weight 113.11 kg DO Deysi Matthew Work Phone: [facility] 07-10-2023 13:31-0500 Diastolic blood pressure 60 mm[Hg] DO Deysi Matthew Work Phone: [facility] 07-10-2023 13:31-0500 Heart rate 81 /min DO Deysi Matthew Work Phone: [facility] 07-10-2023 13:31-0500 Respiratory rate 17 /min DO Deysi Matthew Work Phone: [facility] 07-10-2023 13:31-0500 SaO2% (BldA) [Mass fraction] 97 % DO Deysi Matthew Work Phone: [facility] 07-10-2023 13:31-0500 Systolic blood pressure 138 mm[Hg] DO Deysi Matthew Work Phone: [facility] 06-22-2023 10:09-0500 Body mass index (BMI) [Ratio] 39.1 kg/m2 DO Deysi Matthew Work Phone: [facility] 06-22-2023 10:09-0500 Body temperature 96.6 [degF] DO Deysi Matthew Work Phone: [facility] 06-22-2023 10:09-0500 Diastolic blood pressure 61 mm[Hg] DO Deysi Matthew Work Phone: [facility] 06-22-2023 10:09-0500 Heart rate 83 /min DO Deysi Matthew Work Phone: [facility] 06-22-2023 10:09-0500 Respiratory rate 16 /min DO Deysi Matthew Work Phone: [facility] 06-22-2023 10:09-0500 Systolic blood pressure 137 mm[Hg] DO Deysi Matthew Work Phone: [facility] 06-22-2023 00:37-0500 Body weight 106.59 kg DO Deysi Matthew Work Phone: [facility] 06-08-2023 08:29-0500 Body mass index (BMI) [Ratio] 39.1 kg/m2 DO Deysi Matthew Work Phone: [facility] 06-08-2023 08:29-0500 Body temperature 97.1 [degF] DO Deysi Matthew Work Phone: [facility] 06-08-2023 08:29-0500 Diastolic blood pressure 72 mm[Hg] DO Deysi Matthew Work Phone: [facility] 06-08-2023 08:29-0500 Heart rate 76 /min DO Deysi Matthew Work Phone: [facility] 06-08-2023 08:29-0500 Respiratory rate 20 /min DO Deysi Matthew Work Phone: [facility] 06-08-2023 08:29-0500 Systolic blood pressure 153 mm[Hg] DO Deysi Matthew Work Phone: [facility] 05-23-2023 00:24-0400 Body weight 106.59 kg DO Deysi Matthew Work Phone: [facility] 05-18-2023 08:30-0400 Body mass index (BMI) [Ratio] 39.1 kg/m2 DO Deysi Matthew Work Phone: [facility] 05-18-2023 08:30-0400 Body temperature 96.5 [degF] DO Deysi Matthew Work Phone: [facility] 05-18-2023 08:30-0400 Diastolic blood pressure 69 mm[Hg] DO Deysi Matthew Work Phone: [facility] 05-18-2023 08:30-0400 Heart rate 74 /min DO Deysi Matthew Work Phone: [facility] 05-18-2023 08:30-0400 Respiratory rate 18 /min DO Deysi Matthew Work Phone: [facility] 05-18-2023 08:30-0400 Systolic blood pressure 138 mm[Hg] DO Deysi Matthew Work Phone: [facility] 04-27-2023 10:48-0400 Body height 165.1 cm DO Deysi Matthew Work Phone: [facility] 04-27-2023 10:48-0400 Body weight 106.59 kg DO Deysi Matthew Work Phone: [facility] 04-19-2023 10:57-0400 Body height 165.1 cm DO Deysi Matthew Work Phone: [facility] 04-19-2023 10:57-0400 Body mass index (BMI) [Ratio] 40.1 kg/m2 DO Deysi Matthew Work Phone: [facility] 04-19-2023 10:57-0400 Body temperature 98.3 [degF] DO Deysi Matthew Work Phone: [facility] 04-19-2023 10:57-0400 Body weight 109.31 kg DO Deysi Matthew Work Phone: [facility] 04-19-2023 10:57-0400 Diastolic blood pressure 71 mm[Hg] DO Deysi Matthew Work Phone: [facility] 04-19-2023 10:57-0400 Heart rate 82 /min DO Deysi Matthew Work Phone: [facility] 04-19-2023 10:57-0400 Respiratory rate 16 /min DO Deysi Matthew Work Phone: [facility] 04-19-2023 10:57-0400 SaO2% (BldA) [Mass fraction] 97 % DO Deysi Matthew Work Phone: [facility] 04-19-2023 10:57-0400 Systolic blood pressure 139 mm[Hg] DO Deysi Matthew Work Phone: [facility] 04-12-2023 15:50-0400 Body mass index (BMI) [Ratio] 39.9 kg/m2 DO Deysi Albaer Work Phone: [facility] 04-12-2023 15:50-0400 Body temperature 98.3 [degF] DO Deysimindi Mayfieldnger Work Phone: [facility] 04-12-2023 15:50-0400 Body weight 108.86 kg DO Deysi Mayfieldnger Work Phone: [facility] 04-12-2023 15:50-0400 Diastolic blood pressure 89 mm[Hg] DO Deysi Mayfieldnger Work Phone: [facility] 04-12-2023 15:50-0400 Heart rate 81 /min DO Deysi Mayfieldnger Work Phone: [facility] 04-12-2023 15:50-0400 Respiratory rate 18 /min DO Deysi Albaer Work Phone: [facility] 04-12-2023 15:50-0400 SaO2% (BldA) [Mass fraction] 97 % DO Deysi Mayfieldnger Work Phone: [facility] 04-12-2023 15:50-0400 Systolic blood pressure 156 mm[Hg] DO Deysi Mayfieldnger Work Phone: [facility] 04-06-2023 10:09-0400 Body height 165.1 cm Chanel Martinez APRN.SMOKING PIPE REPAIRER Work Phone: [facility] 04-06-2023 10:09-0400 Body temperature 97.5 [degF] Chanel Martinez APRN.SMOKING PIPE REPAIRER Work Phone: [facility] 04-06-2023 10:09-0400 Body weight 109.77 kg Chanel Martinez APRN.SMOKING PIPE REPAIRER Work Phone: [facility] 04-06-2023 10:09-0400 Diastolic blood pressure 83 mm[Hg] Chanel Martinez APRN.SMOKING PIPE REPAIRER Work Phone: [facility] 04-06-2023 10:09-0400 Heart rate 83 /min Chanel Martinez REGIONAL ENVIRONMENTAL MANAGER.SMOKING PIPE REPAIRER Work Phone: [facility] 04-06-2023 10:09-0400 Respiratory rate 14 /min Chanel Martinez REGIONAL ENVIRONMENTAL MANAGER.SMOKING PIPE REPAIRER Work Phone: [facility] 04-06-2023 10:09-0400 SaO2% (BldA) [Mass fraction] 96 % Chanel Martinez REGIONAL ENVIRONMENTAL MANAGER.SMOKING PIPE REPAIRER Work Phone: [facility] 04-06-2023 10:09-0400 Systolic blood pressure 172 mm[Hg] Chanel Martinez REGIONAL ENVIRONMENTAL MANAGER.SMOKING PIPE REPAIRER Work Phone: [facility] 03-11-2023 09:26-0400 Body height 165.1 cm DO Deysi Mayfieldnger Work Phone: [facility] 03-11-2023 09:26-0400 Body mass index (BMI) [Ratio] 40.2 kg/m2 DO Deysimindi Mayfieldnger Work Phone: [facility] 03-11-2023 09:26-0400 Body temperature 98.6 [degF] DO Deysimindi Mayfieldnger Work Phone: [facility] 03-11-2023 09:26-0400 Body weight 109.79 kg DO Deysi Matthew Work Phone: [facility] 03-11-2023 09:26-0400 Diastolic blood pressure 70 mm[Hg] DO Deysi Matthew Work Phone: [facility] 03-11-2023 09:26-0400 Heart rate 103 /min DO Deysi Matthew Work Phone: [facility] 03-11-2023 09:26-0400 Respiratory rate 17 /min DO Deysi Matthew Work Phone: [facility] 03-11-2023 09:26-0400 SaO2% (BldA) [Mass fraction] 90 % DO Deysi Matthew Work Phone: [facility] 03-11-2023 09:26-0400 Systolic blood pressure 122 mm[Hg] DO Deysi Matthew Work Phone: [facility] 03-01-2023 14:19-0400 Body mass index (BMI) [Ratio] 40.8 kg/m2 DO Deysi Matthew Work Phone: [facility] 03-01-2023 14:190400 Body temperature 97.8 [degF] DO Deysi Matthew Work Phone: [facility] 03-01-2023 14:19-0400 Body weight 111.41 kg DO Deysi Matthew Work Phone: [facility] 03-01-2023 14:19-0400 Diastolic blood pressure 60 mm[Hg] DO Deysi Matthew Work Phone: [facility] 03-01-2023 14:19-0400 Heart rate 92 /min DO Deysi Matthew Work Phone: [facility] 03-01-2023 14:19-0400 Respiratory rate 17 /min DO Deysi Matthew Work Phone: [facility] 03-01-2023 14:19-0400 SaO2% (BldA) [Mass fraction] 96 % DO Deysi Matthew Work Phone: [facility] 03-01-2023 14:19-0400 Systolic blood pressure 122 mm[Hg] DO Deysi Matthew Work Phone: [facility] 02-27-2023 14:39-0400 Body height 165.1 cm DO Deysi Matthew Work Phone: [facility] 02-27-2023 14:39-0400 Body mass index (BMI) [Ratio] 40.8 kg/m2 DO Deysi Matthew Work Phone: [facility] 02-27-2023 14:39-0400 Body temperature 98.2 [degF] DO Deysi Matthew Work Phone: [facility] 02-27-2023 14:39-0400 Body weight 111.41 kg DO Deysi Castro Work Phone: [facility] 02-27-2023 14:39-0400 Diastolic blood pressure 54 mm[Hg] DO Deysi Albaer Work Phone: [facility] 02-27-2023 14:39-0400 Heart rate 96 /min DO Deysi Albaer Work Phone: [facility] 02-27-2023 14:39-0400 Respiratory rate 17 /min DO Deysi Albaer Work Phone: [facility] 02-27-2023 14:39-0400 SaO2% (BldA) [Mass fraction] 96 % DO Deysi Albaer Work Phone: [facility] 02-27-2023 14:39-0400 Systolic blood pressure 118 mm[Hg] DO Deysi Albaer Work Phone: [facility] 01-25-2023 15:51-0400 Body temperature 98.8 [degF] Dr. Gilberto Rasmussen Work Phone: [facility] 01-25-2023 15:51-0400 Diastolic blood pressure 80 mm[Hg] Dr. Gilberto Rasmussen Work Phone: [facility] 01-25-2023 15:51-0400 Heart rate 74 /min Dr. Gilberto Rasmussen Work Phone: [facility] 01-25-2023 15:51-0400 Inhaled oxygen flow rate 3 L/min Dr. Gilberto Rasmussen Work Phone: [facility] 01-25-2023 15:51-0400 Respiratory rate 18 /min Dr. Gilberto Rasmussen Work Phone: [facility] 01-25-2023 15:51-0400 SaO2% (BldA) [Mass fraction] 95 % Dr. Gilberto Rasmussen Work Phone: 6(853)526-768253 [place] [address] 01-25-2023 15:51-0400 Systolic blood pressure 134 mm[Hg] Dr. Gilberto Rasmussen Work Phone: 0(782)865-612953 [place] [address] 01-23-2023 09:35-0400 Body height 165.[address] Gilberto Rasmussen Work Phone: 9(073)985-141253 [place] [address] 01-23-2023 09:35-0400 Body mass index (BMI) [Ratio] 41.1 kg/m2 Dr. Gilberto Rasmussen Work Phone: 3(550)742-668253 [place] [address] 01-23-2023 09:35-0400 Body weight [address] Gilberto Rasmussen Work Phone: 5(545)370-573053 [place] [address] 01-23-2023 08:39-0400 Body temperature 98 [degF] Dr. Gilberto Rasmussen Work Phone: 6(814)475-202753 [place] [address] 01-23-2023 08:39-0400 Diastolic blood pressure 79 mm[Hg] Dr. Gilberto Rasmussen Work Phone: 4(473)500-781153 [place] [address] 01-23-2023 08:39-0400 Heart rate 84 /min Dr. Gilberto Rasmussen Work Phone: 7(206)475-809253 [place] [address] 01-23-2023 08:39-0400 Respiratory rate 17 /min Dr. Gilberto Rasmussen Work Phone: 7(080)730-495553 [place] [address] 01-23-2023 08:39-0400 SaO2% (BldA) [Mass fraction] 95 % Dr. Gilberto Rasmsusen Work Phone: 8(221)245-815153 [place] [address] 01-23-2023 08:39-0400 Systolic blood pressure 138 mm[Hg] Dr. Gilberto Rasmussen Work Phone: 5(440)338-945253 [place] [address] 01-23-2023 03:03-0400 Body height 165.[address] Gilberto Rasmussen Work Phone: 8(662)202-984280 [place] [address] 01-23-2023 03:03-0400 Body mass index (BMI) [Ratio] 40.9 kg/m2 Dr. Gilberto Rasmussen Work Phone: [facility] 01-23-2023 03:03-0400 Body weight 111.[address] Gilberto Rasmussen Work Phone: [facility] 01-20-2023 13:29-0400 Heart rate 84 /min Dr. Gilberto Rasmussen Work Phone: [facility] 01-20-2023 13:29-0400 Respiratory rate 18 /min Dr. Gilberto Rasmussen Work Phone: [facility] 01-20-2023 13:29-0400 SaO2% (BldA) [Mass fraction] 95 % Dr. Gilberto Rasmussen Work Phone: 3(324)872-536177 [address] 01-20-2023 11:55-0400 Body temperature 97.8 [degF] Dr. Gilberto Rasmussen Work Phone: 5(136)703-370480 [place] [address] 01-20-2023 11:55-0400 Diastolic blood pressure 81 mm[Hg] Dr. Gilberto Rasmussen Work Phone: [facility] 01-20-2023 11:55-0400 Systolic blood pressure 132 mm[Hg] Dr. Gilberto Rasmussen Work Phone: [facility] 01-20-2023 11:23-0400 Body height 165.[address] Gilberto Rasmussen Work Phone: 4(487)486-104380 [place] [address] 01-20-2023 11:23-0400 Body mass index (BMI) [Ratio] 40.1 kg/m2 Dr. Gilberto Rasmussen Work Phone: [facility] 01-20-2023 11:23-0400 Body weight 109.[address] Gilberto Rasmussen Work Phone: [facility] 01-20-2023 11:06-0400 Body temperature 97.7 [degF] Sean Villalba APRN.SMOKING PIPE REPAIRER Work Phone: [facility] 01-20-2023 11:06-0400 Body weight 109.77 kg Sean Villalba APRN.CNP Work Phone: [facility] 01-20-2023 11:06-0400 Diastolic blood pressure 60 mm[Hg] Sean Estesramón REGIONAL ENVIRONMENTAL MANAGER.SMOKING PIPE REPAIRER Work Phone: [facility] 01-20-2023 11:06-0400 Heart rate 95 /min Sean Estesramón REGIONAL ENVIRONMENTAL MANAGER.SMOKING PIPE REPAIRER Work Phone: [facility] 01-20-2023 11:06-0400 Respiratory rate 20 /min [facility] REGIONAL ENVIRONMENTAL MANAGER.SMOKING PIPE REPAIRER Work Phone: [facility] 01-20-2023 11:06-0400 SaO2% (BldA) [Mass fraction] 94 % [facility] REGIONAL ENVIRONMENTAL MANAGER.SMOKING PIPE REPAIRER Work Phone: [facility] 01-20-2023 11:06-0400 Systolic blood pressure 116 mm[Hg] [facility] REGIONAL ENVIRONMENTAL MANAGER.SMOKING PIPE REPAIRER Work Phone: [facility] 01-01-2023 09:19-0400 Body mass index (BMI) [Ratio] 39.3 kg/m2 Dr. Gilberto Rasmussen Work Phone: [facility] 01-01-2023 09:19-0400 Body temperature 97.8 [degF] Dr. Gilberto Rasmussen Work Phone: [facility] 01-01-2023 09:19-0400 Body weight 107.[address] Gilberto Rasmussen Work Phone: [facility] 01-01-2023 09:19-0400 Diastolic blood pressure 68 mm[Hg] Dr. Gilberto Rasmussen Work Phone: [facility] 01-01-2023 09:19-0400 Heart rate 110 /min Dr. Gilberto Rasmussen Work Phone: [facility] 01-01-2023 09:19-0400 Respiratory rate 17 /min Dr. Gilberto Rasmussen Work Phone: [facility] 01-01-2023 09:19-0400 SaO2% (BldA) [Mass fraction] 97 % Dr. Gilberto Rasmussen Work Phone: 5(170)841-281980 [place] [address] 01-01-2023 09:19-0400 Systolic blood pressure 110 mm[Hg] Dr. Gilberto Rasmussen Work Phone: 0(497)518-744253 [place] [address] 11-29-2022 09:18-0400 Body height 165.[address] Gilberto Rasmussen Work Phone: 5(216)573-798553 [place] [address] 11-29-2022 09:18-0400 Body mass index (BMI) [Ratio] 39.9 kg/m2 Dr. Gilberto Rasmussen Work Phone: 3(221)251-846953 [place] [address] 11-29-2022 09:18-0400 Body temperature 97.8 [degF] Dr. Gilberto Rasmussen Work Phone: 6(205)485-823453 [place] [address] 11-29-2022 09:18-0400 Body weight 109.[address] Gilberto Rasmussen Work Phone: 7(188)008-248953 [place] [address] 11-29-2022 09:18-0400 Diastolic blood pressure 60 mm[Hg] Dr. Gilberto Rasmussen Work Phone: 3(012)448-643753 [place] [address] 11-29-2022 09:18-0400 Heart rate 81 /min Dr. Gilberto Rasmussen Work Phone: 7(428)691-318553 [place] [address] 11-29-2022 09:18-0400 Respiratory rate 17 /min Dr. Gilberto Rasmussen Work Phone: 2(852)078-208253 [place] [address] 11-29-2022 09:18-0400 SaO2% (BldA) [Mass fraction] 94 % Dr. Gilberto Rasmussen Work Phone: 6(861)489-265953 [place] [address] 11-29-2022 09:18-0400 Systolic blood pressure 108 mm[Hg] Dr. Gilberto Rasmussen Work Phone: 7(658)164-405153 [place] [address] 10-30-2022 14:18-0400 Body mass index (BMI) [Ratio] 40.7 kg/m2 Dr. Gilberto Rasmussen Work Phone: 8(073)004-072153 [place] [address] 10-30-2022 14:18-0400 Body temperature 97.8 [degF] Dr. Gilberto Rasmussen Work Phone: 3(181)330-704080 [place] [address] 10-30-2022 14:18-0400 Body weight 111.[address] Gilberto Rasmussen Work Phone: [facility] 10-30-2022 14:18-0400 Diastolic blood pressure 60 mm[Hg] Dr. Gilberto Rasmussen Work Phone: 5(322)134-527480 [place] [address] 10-30-2022 14:18-0400 Heart rate 88 /min Dr. Gilberto Rasmussen Work Phone: 4(428)096-428453 [place] [address] 10-30-2022 14:18-0400 Respiratory rate 16 /min Dr. Gilberto Rasmussen Work Phone: 7(615)866-535980 [place] [address] 10-30-2022 14:18-0400 SaO2% (BldA) [Mass fraction] 96 % Dr. Gilberto Rasmussen Work Phone: [facility] 10-30-2022 14:18-0400 Systolic blood pressure 118 mm[Hg] Dr. Gilberto Rasmussen Work Phone: [facility] 06-28-2022 12:45-0500 Diastolic blood pressure 63 mm[Hg] Asad Guerin MD Work Phone: [facility] 06-28-2022 12:45-0500 Heart rate 74 /min Asad Guerin MD Work Phone: [facility] 06-28-2022 12:45-0500 Respiratory rate 29 /min Asad Guerin MD Work Phone: [facility] 06-28-2022 12:45-0500 SaO2% (BldA) [Mass fraction] 94 % Asad Guerin MD Work Phone: [facility] 06-28-2022 12:45-0500 Systolic blood pressure 138 mm[Hg] Asad Guerin MD Work Phone: [facility] 06-28-2022 12:19-0500 Body temperature 98.2 [degF] Asad Guerin MD Work Phone: [facility] 06-27-2022 08:31-0500 Body height 165.[address] Milton Almanzar Work Phone: [facility] 06-27-2022 08:31-0500 Body mass index (BMI) [Ratio] 41.2 kg/m2 Dr. Milton Almanzar Work Phone: [facility] 06-27-2022 08:31-0500 Body temperature 98.2 [degF] Dr. Milton Almanzar Work Phone: [facility] 06-27-2022 08:31-0500 Body weight 112.[address] Milton Almanzar Work Phone: [facility] 06-27-2022 08:31-0500 Diastolic blood pressure 60 mm[Hg] Dr. Milton Almanzar Work Phone: [facility] 06-27-2022 08:31-0500 Heart rate 86 /min Dr. Milton Almanzar Work Phone: [facility] 06-27-2022 08:31-0500 Respiratory rate 16 /min Dr. Milton Almanzar Work Phone: [facility] 06-27-2022 08:31-0500 SaO2% (BldA) [Mass fraction] 96 % Dr. Milton Almanzar Work Phone: [facility] 06-27-2022 08:31-0500 Systolic blood pressure 120 mm[Hg] Dr. Milton Almanzar Work Phone: [facility] 05-10-2022 10:24-0400 Body height 165.1 cm Manuela Montana APRN.SMOKING PIPE REPAIRER Work Phone: [facility] 05-10-2022 10:24-0400 Body weight 112.04 kg Manuela Montana APRN.CNP Work Phone: [facility] 05-10-2022 10:24-0400 Diastolic blood pressure 68 mm[Hg] Manuela Montana APRN.SMOKING PIPE REPAIRER Work Phone: [facility] 05-10-2022 10:24-0400 Systolic blood pressure 124 mm[Hg] Manuela Montana APRN.SMOKING PIPE REPAIRER Work Phone: [facility] 04-28-2022 10:59-0400 Body height 165.1 cm Clari Haim PA-C Work Phone: [facility] 04-28-2022 10:59-0400 Body temperature 97.3 [degF] Clari Haim PA-C Work Phone: [facility] 04-28-2022 10:59-0400 Body weight 112.58 kg Clari Haim PA-C Work Phone: [facility] 04-28-2022 10:59-0400 Diastolic blood pressure 76 mm[Hg] Clari Gardena PA-C Work Phone: [facility] 04-28-2022 10:59-0400 Heart rate 81 /min Clari Haim PA-C Work Phone: [facility] 04-28-2022 10:59-0400 SaO2% (BldA) [Mass fraction] 94 % Clari Haim PA-C Work Phone: [facility] 04-28-2022 10:59-0400 Systolic blood pressure 124 mm[Hg] Clari Gardena PA-C Work Phone: [facility] 02-14-2022 20:17-0400 Diastolic blood pressure 68 mm[Hg] Dr. Milton Almanzar Work Phone: [facility] Work Phone: 02-14-2022 20:17-0400 Systolic blood pressure 142 mm[Hg] Dr. Milton Almanzar Work Phone: [facility] Work Phone: 02-14-2022 13:50-0400 Body temperature 98.2 [degF] Dr. Milton Almanzar Work Phone: [facility] Work Phone: 02-14-2022 13:50-0400 Heart rate 73 /min Dr. Milton Almanzar Work Phone: [facility] Work Phone: 02-14-2022 13:50-0400 Respiratory rate 14 /min Dr. Milton Almanzar Work Phone: [facility] Work Phone: 02-14-2022 13:50-0400 SaO2% (BldA) [Mass fraction] 96 % Dr. Milton Almanzar Work Phone: [facility] Work Phone: Encounters Encounter Date Encounter Type Care Provider Facility Start: 06-02-2025 End: 06-02-2025 ambulatory Meir Zepeda Facility:[facility] Start: 06-01-2025 End: 06-01-2025 ambulatory Gilberto Rasmussen Facility:[facility] Start: 05-04-2025 End: 05-04-2025 ambulatory Meir Zepeda MD Work Phone: -[facility] Start: 05-04-2025 End: 05-04-2025 Dr. Jose Ramon Terry DO -[facility] Work Phone: Start: 05-04-2025 End: 05-04-2025 Dr. Gilberto Rasmussen MD -[facility] Work Phone: Start: 05-04-2025 End: 05-04-2025 ambulatory Meir Zepeda MD Work Phone: -[facility] Start: 05-04-2025 End: 05-04-2025 ambulatory [facility] Facility:[facility] Start: 04-22-2025 ambulatory Meir Zepeda Facility:[facility] Start: 04-20-2025 ambulatory Meir Rachelle Facility:[facility] Start: 04-17-2025 Encounter for other preprocedural examination Juve Johnson [facility] Start: 04-17-2025 End: 04-17-2025 ambulatory Meir Zepeda MD Work Phone: -[facility] Start: 04-17-2025 End: 04-17-2025 Dr. Meir Zepeda MD -Laboratory [facility] Start: 04-17-2025 End: 04-17-2025 ambulatory Chalon Rachelle Facility:[facility] Start: 04-06-2025 End: 04-21-2025 Dr. Jose Ramon Terry DO -[facility] Work Phone: Start: 04-06-2025 End: 04-21-2025 ambulatory Meir Zepeda MD Work Phone: -[facility] Start: 04-03-2025 Dr. Farida Zavala DO -[facility] Work Phone: Start: 04-02-2025 Dr. Farida Zavala DO -[facility] Work Phone: Start: 03-31-2025 Dr. Farida Zavala DO -[facility] Work Phone: Start: 03-30-2025 Dr. Jose Ramon Terry DO [facility] Start: 03-27-2025 ambulatory Chalon Rachelle Facility:[facility] Start: 03-27-2025 Dr. Jaiden Lizarraga MD -[facility] Start: 03-27-2025 ambulatory Chalon Rachelle Facility:[facility] Start: 03-27-2025 End: 04-04-2025 Evaluation and management of inpatient Meir Zepeda MD Work Phone: -Rehab Unit Start: 03-27-2025 End: 04-04-2025 Dr. Farida Zavala DO -Rehab Unit Work Phone: Start: 03-27-2025 Non-patient / Non-visit Dr. Asher Masters [facility] Work Phone: Start: 03-27-2025 Dr. Chino sandoval [facility] Work Phone: Start: 03-27-2025 Non-patient / Non-visit Dr. Jose Ramon jauregui [facility] Start: 03-27-2025 Dr. Jose Ramon Terry DO [facility] Start: 03-26-2025 Non-patient / [facility] Work Phone: Start: 03-26-2025 Dr. Chino sandoval [facility] Work Phone: Start: 03-26-2025 Non-patient / Non-visit Dr. Juve desouza MD -[facility] Start: 03-26-2025 Dr. Juve Johnson MD [facility] Start: 03-25-2025 Non-patient / Non-visit Dr. Asher Masters [facility] Work Phone: Start: 03-25-2025 Dr. Chino sandoval [facility] Work Phone: Start: 03-24-2025 Non-patient / Non-visit Dr. Asher nieves [facility] Work Phone: Start: 03-24-2025 [facility] Work Phone: Start: 03-24-2025 ambulatory Chalon [facility] Facility:[facility] Start: 03-24-2025 End: 03-27-2025 Evaluation and management of inpatient [facility] Work [facility]: Start: 03-24-2025 End: 03-27-2025 Dr. [facility] Work [facility]: Start: 03-24-2025 Non-patient / Non-visit Dr. Jose Ramon jauregui DO [facility] Start: 03-24-2025 Dr. Jose Ramon Terry [facility] Start: 03-24-2025 ambulatory Chalon Rachelle Facility:[facility] Start: 03-13-2025 End: 03-13-2025 ambulatory Meir Zepeda MD Work Phone: -[facility] Start: 03-13-2025 End: 03-13-2025 Dr. Jose Ramon Terry DO -[facility] Work Phone: Start: 03-13-2025 End: 03-13-2025 Patient encounter procedure Manuela Montana APRN.CNP Work Phone: OB/Gynecology Comment on above: Encounter for gyneco logic examination for high-risk patient covered by Medicare (Primary Dx); 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); Encounter for Papanicolaou smear for cervical cancer screening; Encounter for screening mammogram for breast cancer Start: 03-13-2025 End: 03-13-2025 ambulatory MANUELA MONTANA Facility:[facility] Start: 03-13-2025 End: 03-13-2025 ambulatory Meir Zepeda Facility:[facility] Start: 03-09-2025 End: 03-09-2025 ambulatory Meir Zepeda MD Work Phone: -[facility] Start: 03-09-2025 End: 03-09-[address] Jose Ramon Terry DO -[facility] Work Phone: Start: 03-09-2025 End: 03-09-2025 Dr. Jose Ramon Terry DO -[facility] Work Phone: Start: 03-09-2025 End: 03-09-[address] Gilberto Rasmussen MD -[facility] Work Phone: Start: 03-09-2025 End: 03-09-2025 Dr. iGlberto Rasmussen MD -[facility] Work Phone: Start: 03-09-2025 End: 03-09-2025 ambulatory Meir Zepeda MD Work Phone: -[facility] Start: 03-09-2025 End: 03-09-2025 ambulatory Meir Zepeda Facility:[facility] Start: 02-25-2025 End: 02-25-[address] Jose Ramon Terry DO -[facility] Work Phone: Start: 02-25-2025 End: 02-25-2025 Dr. Jose Ramon Terry DO -[facility] Work Phone: Start: 02-25-2025 End: 02-25-2025 ambulatory Meir Zepeda MD Work Phone: -[facility] Start: 02-23-2025 ambulatory CHALON RACHELLE Facility:[facility] Start: 02-23-2025 End: 02-23-2025 Subsequent hospital visit by physician Screen Mammo Replaced By [facility] Start: 02-19-2025 End: 02-19-2025 ambulatory Meir Zepeda MD Work Phone: -[facility] Start: 02-19-2025 End: 02-19-[address] Meir Zepeda MD -[facility] Start: 02-19-2025 End: 02-19-2025 Dr. Meir Zepeda MD -[facility] Start: 02-19-2025 End: 02-19-2025 ambulatory Chaldaniel Rachelle Facility:[facility] Start: 01-29-2025 End: 01-29-[address] Gilberto Rasmussen MD -[facility] Work Phone: Start: 01-29-2025 End: 01-29-2025 Dr. Gilberto Rasmussen MD -[facility] Work Phone: Start: 01-29-2025 End: 01-29-2025 ambulatory Meir Zepeda MD Work Phone: -[facility] Start: 01-26-2025 ambulatory Meir Zepeda Facility:[facility] Start: 01-20-2025 Non-patient / Non-visit Dr. Rajani alexander MD -[facility] Work Phone: Start: 01-20-2025 Dr. Rajani Wharton MD -[facility] Work Phone: Start: 01-13-2025 End: 01-13-2025 ambulatory Deysi Castro DO Work Phone: [facility] [place] Work Phone: Start: 01-13-2025 End: 01-13-[address] Jose Ramon Terry DO -Physical Therapy Work Phone: Start: 01-13-[address] Jose Ramon lopez DO -Physical Therapy Work Phone: Start: 01-13-2025 End: 01-13-2025 Dr. Jose Ramon Terry DO -Physical Therapy Work Phone: Start: 01-12-2025 End: 01-12-2025 Dr. Juan [facility] Start: 01-12-2025 End: 01-12-2025 Emergency department patient visit Deysi Castro DO Work Phone: -Emergency Department Work Phone: Start: 01-08-[address] Jose Ramon lopez DO -Physical Therapy Work Phone: Start: 01-07-2025 End: 01-07-2025 ambulatory Deysi Aryan Matthew DO Work Phone: [facility] [place] Work Phone: Start: 01-07-2025 End: 01-07-[address] Doris Yip MD -Laboratory [place] Work Phone: Start: 01-07-2025 End: 01-07-2025 Dr. Doris Yip MD -Laboratory [facility] Work Phone: Start: 01-07-2025 End: 01-07-2025 ambulatory Meir Rachelle Facility:[facility] [place] Start: 12-27-2024 End: 12-29-2024 Follow-up encounter Leonardo Dhillon APRN.SMOKING PIPE REPAIRER Work Phone: [facility] Start: 12-27-2024 End: 12-27-2024 Subsequent hospital visit by physician X[facility] Work Phone: Radiology Comment on above: Acute left ankle bebo n [M25.572] Start: 12-27-2024 End: 12-27-2024 Patient encounter procedure Leonardo Moomaw REGIONAL ENVIRONMENTAL MANAGER.SMOKING PIPE REPAIRER Work Phone: [facility] Comment on above: Acute left ankle bebo n (Primary Dx) Start: 12-27-2024 End: 12-27-2024 ambulatory LEONARDO DHILLON Facility:[facility] Start: 12-08-2024 End: 12-08-[address] Gilberto Rasmussen MD -[facility] Work Phone: Start: 12-08-2024 End: 12-08-2024 Dr. Gilberto Rasmussen MD -[facility] Work Phone: Start: 12-08-2024 End: 12-08-2024 ambulatory Meir Zepeda MD Work Phone: [facility] Work Phone: Start: 11-21-2024 End: 11-21-[address] Jose Ramon Terry DO -[facility] Work Phone: Start: 11-21-2024 End: 11-21-2024 ambulatory Chalon Rachelle Facility:[facility] Start: 2024 End: [address] Gilberto Rasmussen MD Work Phone: [facility] [place] Work Phone: Start: 2024 End: 2024 Patient encounter procedure Candida Diaz [facility] Work Phone: Start: 2024 End: 2024 ambulatory Chaldaniel Rachelle Facility:[facility] Start: 11-07-2024 End: 11-07-[address] Juve Johnson MD -[facility] Work Phone: Start: 11-07-2024 End: 11-07-2024 ambulatory Chalon Rachelle Facility:[facility] Start: 11-06-2024 End: 11-06-[address] Gilberto Rasmussen MD -[facility] Work Phone: Start: 11-06-2024 End: 11-06-2024 ambulatory Chalon Rachelle Facility:[facility] Start: 10-23-2024 End: 10-23-2024 ambulatory Meir Zepeda MD Work Phone: [facility] [place] Work Phone: Start: 10-23-2024 End: 10-23-[address] Doris Yip MD -Laboratory, [place] Work Phone: Start: 10-23-2024 End: 10-23-2024 ambulatory Chalon Rachelle Facility:[facility] [place] Start: 10-06-2024 End: 10-06-[address] Jose Ramon Mckenzie MD -[facility] Work Phone: Start: 10-06-2024 End: 10-06-2024 ambulatory Chalon Rachelle Facility:[facility] Start: 10-02-2024 End: 10-02-[address] Gilberto Rasmussen MD -[facility] Work Phone: Start: 10-02-2024 End: 10-02-2024 ambulatory Chalon Rachelle Facility:[facility] Start: 09-29-2024 End: 09-29-[address] Jose Ramon Mckenzie MD -[facility] Work Phone: Start: 09-29-[address] Jose Ramon Mckenzie MD -[facility] Start: 09-29-2024 End: 09-29-2024 ambulatory Meir Zepeda MD Work Phone: [facility] [place] Work Phone: Start: 09-29-2024 End: 09-29-2024 ambulatory Chalon Rachelle Facility:[facility] Start: 09-02-2024 End: 09-02-[address] Gilberto Rasmussen MD -[facility] Work Phone: Start: 09-02-2024 End: 09-02-2024 ambulatory Chalon Rachelle Facility:[facility] Start: 08-28-2024 End: 08-28-[address] Doris Yip MD -Laboratory, [place] Work Phone: Start: 08-28-2024 End: 08-28-2024 ambulatory Chaldaniel Rachelle Facility:[facility] [place] Start: 08-04-2024 End: 08-04-2024 Patient encounter procedure Josefa Rocha PERSONNEL SCHEDULER-C -Outpatient Bone Densitometry Work Phone: Start: 08-04-2024 End: 08-04-2024 ambulatory Josefa Rocha NP Facility:[facility] [place] Start: 08-01-2024 End: 08-01-[address] Meir Zepeda MD -Laboratory, [facility] Start: 07-31-2024 End: 07-31-[address] Gilberto Rasmussen MD -[facility] Work Phone: Start: 07-31-2024 End: 08-01-2024 ambulatory Chaldaniel Rachelle Facility:[facility] Start: 07-09-2024 End: 07-09-[address] Doris Yip MD -Laboratory, [place] Work Phone: Start: 07-09-2024 End: 07-09-2024 ambulatory Chaldaniel Rachelle Facility:[facility] [place] Start: 07-07-2024 End: 07-07-2024 Patient encounter procedure Josefa Rocha PERSONNEL SCHEDULER-C -Cat Scan, [facility] Work Phone: Start: 07-07-2024 End: 07-07-2024 ambulatory Josefa Rocha PERSONNEL SCHEDULER Facility:[facility] Start: 06-06-2024 End: 06-06-2024 ambulatory Chaldaniel Rachelle Facility:[facility] [place] Start: 11-23-2023 End: 11-23-2023 Patient encounter procedure DO Deysi Castro Work Phone: [facility] Work Phone: Start: 11-20-2023 End: 11-20-2023 ambulatory DO Deysi Castro Work Phone: [facility] [place] Work Phone: Start: 11-20-2023 End: 11-20-2023 Patient encounter procedure DO Deysi Castro Work Phone: [facility] Work Phone: Start: 11-17-2023 End: 11-17-2023 ambulatory DO Deysi Castro Work Phone: [facility] [place] Work Phone: Start: 11-17-2023 End: 11-17-2023 Patient encounter procedure DO Deysi Castro Work Phone: [facility] Work Phone: Start: 11-08-2023 End: 11-08-2023 Patient encounter procedure DO Deysi Castro Work Phone: [facility] Work Phone: Start: 11-06-2023 End: 11-06-2023 Patient encounter procedure DO Deysi Castro Work Phone: [facility] Work Phone: Start: 11-05-2023 End: 11-20-2023 ambulatory DO Deysi Castro Work Phone: [facility] [place] Work Phone: Start: 11-05-2023 End: 11-20-2023 Discharged Recurring DO Deysi Castro [facility] Work [facility] Start: 10-19-2023 End: 10-19-2023 Patient encounter procedure DO Deysi Castro Work Phone: [facility] Work Phone: Start: 10-19-2023 End: 10-19-2023 ambulatory DO Deysi Castro Work Phone: [facility] [place] Work Phone: Start: 10-19-2023 End: 10-19-2023 Patient encounter procedure DO Deysi Mayfieldnger Work Phone: [facility] Work Phone: Start: 10-11-2023 End: 10-11-2023 Patient encounter procedure DO Deysi Mayfieldnger Work Phone: [facility] Work Phone: Start: 10-08-2023 Registered Recurring DO Jennie desirae Castro Work Phone: [facility] Start: 10-08-2023 End: 10-08-2023 Patient encounter procedure DO Deysi Matthew Work Phone: [facility] Work Phone: Start: 10-01-2023 End: 10-01-2023 ambulatory DO Deysi Aryan Matthew Work Phone: [facility] [place] Work Phone: Start: 10-01-2023 End: 10-01-2023 Patient encounter procedure DO Deysi Mayfieldnger Work Phone: [facility] Work Phone: Start: 10-01-2023 Registered Recurring DO Jennie desirae Matthew Work Phone: [facility] Start: 09-24-2023 End: 09-24-2023 ambulatory DO Deysi Aryan Matthew Work Phone: [facility] Work Phone: Start: 09-24-2023 End: 09-24-2023 Patient encounter procedure DO Deysi Albaer Work Phone: [facility] Start: 09-11-2023 End: 09-11-2023 Patient encounter procedure DO Deysi Albaer Work Phone: [facility] Work Phone: Start: 08-09-2023 End: 08-09-2023 Patient encounter procedure DO Deysi Albaer Work Phone: [facility] Work Phone: Start: 07-25-2023 End: 07-25-2023 ambulatory DO Deysi Castro Work Phone: [facility] [place] Work Phone: Start: 07-25-2023 End: 07-25-2023 Patient encounter procedure DO Deysi Castro Work Phone: [facility] [place]-Laboratory, [place] Work Phone: Start: 07-25-2023 End: 07-25-2023 Patient encounter procedure DO Deysi Castro Work Phone: [facility] Work Phone: Start: 07-10-2023 End: 07-10-2023 Patient encounter procedure DO Deysi Castro Work Phone: [facility] Work Phone: Start: 07-02-2023 End: 07-02-2023 ambulatory DO Deysi Castro Work Phone: [facility] Work Phone: Start: 07-02-2023 End: 07-02-2023 Patient encounter procedure DO Deysi Castro Work Phone: [facility] [place] Work Phone: Start: 06-22-2023 End: 06-25-2023 ambulatory DO Deysi Castro Work Phone: [facility] [place] Work Phone: Start: 06-22-2023 End: 06-25-2023 Discharged Recurring DO Deysi Castro [facility] Work Phone: Start: 06-08-2023 End: 06-21-2023 ambulatory DO Deysi Castro Work Phone: [facility] [place] Work Phone: Start: 06-08-2023 End: 06-21-2023 Discharged Recurring DO Deysi Castro Work Phone: [facility] Work Phone: Start: 05-18-2023 End: 05-22-2023 ambulatory DO Deysi Castro Work Phone: [facility] [place] Work Phone: Start: 05-18-2023 End: 05-22-2023 Discharged Recurring DO Deysi Castro Work Phone: [facility] Work Phone: Start: 05-03-2023 End: 05-03-2023 Subsequent hospital visit by physician [facility] Work Phone: Radiology Comment on above: Empyema with no fist alicia (HCC) [J86.9] Start: 04-19-2023 End: 04-19-2023 Patient encounter procedure DO Deysi Mayfieldnger Work Phone: [facility] Work Phone: Start: 04-19-2023 End: 04-19-2023 Patient encounter procedure DO Deysi Mayfieldnger Work Phone: [facility] Work Phone: Start: 04-17-2023 REFILL - CARLIET Sophia Christiansen Medical Records Comment on above: Medication Refill De nied Start: 04-13-2023 Registered Recurring DO Jennie desirae Matthew Work Phone: [facility] Start: 04-12-2023 End: 04-12-2023 Patient encounter procedure DO Deysi Mayfieldnger Work Phone: [facility] Work Phone: Start: 04-06-2023 [...] encounter procedure DO Deysi Castro Work Phone: [facility] Start: 03-15-2023 Non-patient / Non-visit DO Micaela Csatro Work Phone: [facility] Work Phone: Start: 03-13-2023 End: 03-13-2023 ambulatory DO Deysi Castro Work Phone: [facility] Work Phone: Start: 03-13-2023 End: 03-13-2023 Patient encounter procedure DO Deysi Albaer Work Phone: [facility] [place]-Pre-Admission Testing Work Phone: Start: 03-13-2023 End: 03-13-2023 ambulatory DO Deysi Castro Work Phone: [facility] [place] Work Phone: Start: 03-13-2023 End: 03-13-2023 Patient encounter procedure DO Deysi Castro Work Phone: [facility] [place]-Cat Scan, [facility] Work Phone: Start: 03-12-2023 End: 03-12-2023 ambulatory DO Deysi Castro Work Phone: [facility] Work Phone: Start: 03-12-2023 End: 03-12-2023 Patient encounter procedure DO Deysi Castro Work Phone: [facility] Work Phone: Start: 03-11-2023 End: 03-11-2023 Patient encounter procedure DO Deysi Castro Work Phone: [facility] Work Phone: Start: 03-01-2023 End: 03-01-2023 Patient encounter procedure DO Deysi Castro Work Phone: [facility] Work Phone: Start: 02-27-2023 End: 02-27-2023 Patient encounter procedure DO Deysi Castro Work Phone: [facility] Work Phone: Start: 02-22-2023 End: 02-22-2023 ambulatory DO Deysi Castro Work Phone: [facility] [place] Work Phone: Start: 02-22-2023 End: 02-22-2023 Patient encounter procedure DO Deysi Castro Work Phone: [facility] [place]-Cardiovascula r [facility] Work Phone: Start: 02-20-2023 Telephone encounter Milton Almanzar Work Phone: NOC Comment on above: Appointment Start: 02-02-2023 End: 02-02-[address] Gilberto Rasmussen Work Phone: [facility] [place] Work Phone: Start: 02-02-2023 End: 02-02-[address] Gilberto Rasmussen Work Phone: [facility] Work Phone: Start: 01-30-2023 End: 01-30-[address] Gilberto Rasmussen Work Phone: [facility] [place] Work Phone: Start: 01-30-2023 End: 01-30-[address] Gilberto Rasmussen Work Phone: [facility] Start: 01-25-2023 Non-patient / Non-visit Dr. Ra sarah Rasmussen Work Phone: [facility] In[facility] Physicians Work Phone: Start: 01-24-2023 Non-patient / Non-visit Dr. Ra sarah Rasmussen Work Phone: [facility] Work Phone: Start: 01-23-2023 Non-patient / Non-visit Dr. Ra sarah Rasmussen Work Phone: [facility] Work Phone: Start: 01-23-2023 End: 01-25-2023 Evaluation and management of inpatient Dr. Gilberto Rasmussen Work Phone: [facility] [place]-Medical Surgical 3 Work Phone: Start: 01-23-[address] Manasa Rasmussen Work Phone: [facility] [place] Work Phone: Start: 01-20-2023 End: 01-20-2023 Emergency department patient visit Dr. Gilberto Rasmussen Work Phone: [facility] [place]-Emergency Department Work Phone: Start: 01-20-2023 End: 01-20-2023 Patient encounter procedure Sean Villalba REGIONAL ENVIRONMENTAL MANAGER.SMOKING PIPE REPAIRER Work Phone: [facility] Comment on above: Pleuritic pain (Prim jazmyn Dx) Start: 01-18-2023 End: 01-18-[address] Gilberto Rasmussen Work Phone: [facility] [place] Work Phone: Start: 01-18-2023 End: 01-18-[address] Gilber[facility]asmussen [facility] Start: 01-18-[address] Junior Rasmussen Work Phone: [facility] [place]-Physical Therapy Work Phone: Start: 01-01-2023 End: 01-01-[address] Gilberto Rasmussen Work Phone: [facility] Work Phone: Start: 12-27-[address] Junior Rasmussen Work Phone: [facility] [place]-Physical Therapy Start: 12-25-2022 End: 12-25-[address] Gilberto Rasmussen Work Phone: [facility] [place] Work Phone: Start: 12-25-2022 End: 12-25-[address] Gilberto Rasmussen Work Phone: [facility] Start: 12-25-2022 End: 12-25-[address] Gilberto Rasmussen Work Phone: [facility] Start: 11-29-2022 End: 11-29-[address] Gilberto Rasmussen Work Phone: [facility] Neurology Start: 11-06-2022 End: 11-06-[address] Gilberto Rasmussen Work Phone: [facility] Start: 10-30-2022 End: 10-30-[address] Gilberto Rasmussen Work Phone: [facility] Neurology Start: 08-31-2022 End: 08-31-[address] Milton Almaznar Work Phone: [facility] [place] Work Phone: Start: 08-31-2022 End: 08-31-[address] Milton Almanzar Work Phone: [facility] Start: 07-24-2022 End: 07-24-[address] Milton Almanzar Work Phone: [facility] [place] Work Phone: Start: 07-24-2022 End: 07-24-[address] Milton Almanzar Work Phone: [facility] Start: 06-28-2022 ambulatory OSIRIS KIM Fa cility:[facility] Start: 06-28-2022 End: 06-28-2022 Subsequent hospital visit by physician Asad Guerin MD Work Phone: [facility] Endoscopy Comment on above: History of colonic p olyps [Z86.010] Start: 06-27-2022 End: 06-27-[address] Milton Almanzar Work Phone: [facility] Neurology Start: 06-08-2022 End: 06-08-2022 ambulatory [facility] [place] Work Phone: Start: 06-08-2022 End: 06-08-2022 Patient encounter procedure [facility] Start: 05-15-2022 End: 05-15-[address] Milton Almanzar Work Phone: [facility] [place] Work Phone: Start: 05-15-2022 End: 05-15-[address] Milton Almanzar Work Phone: [facility] Start: 05-10-2022 End: 05-10-2022 Patient encounter procedure Manuela Montana APRN.CNP Work Phone: OB/Gynecology Comment on above: Encounter for routin e gynecologic examination in Medicare patient (Primary Dx); Encounter for Papanicolaou smear for cervical cancer screening Start: 05-10-2022 End: 05-10-2022 Patient encounter status Manuela Montana GAGE Work Phone: OB/Gynecology Start: 04-28-2022 End: 04-28-2022 Patient encounter procedure Clari Whitmore PA-C Work Phone: General Surgery Comment on above: History of colonic p olyps (Primary Dx); Encounter for screening for malignant neoplasm of colon Start: 04-13-2022 End: 04-13-[address] Milton Almanzar Work Phone: [facility] [place] Work Phone: Start: 04-13-2022 End: 04-13-[address] Milton Almanzar Work Phone: [facility] [place]-Outpatient Bone Densitometry Start: 02-14-2022 End: 02-14-[address] Milton Almanzar Work Phone: [facility] Neurology Start: 12-06-2021 End: 12-06-2021 Patient encounter procedure [facility] [place]-Ultrasound, [facility] Start: 11-23-2021 End: 11-23-2021 Patient encounter procedure [facility] [place]-Laboratory, [facility] Start: 11-03-2021 End: 11-03-2021 Patient encounter procedure [facility] [place]-Radiology, [place] Procedures Date Procedure Procedure Detail Performing Clinician Start: 05-04-2025 Plain x-ray of pelvi s and lower extremity Meir Zepeda MD Work Phone: Start: 05-04-2025 Radex ankle complete minimum 3 views Meir Zepeda MD Work Phone: Start: 04-17-2025 Mean corpuscular hem oglobin concentration determination Meir Zepeda MD Work Phone: Start: 04-17-2025 Platelet mean volume determination Meir Zepeda MD Work Phone: Start: 04-06-2025 Calculation of inter national normalized ratio Meir Zepeda MD Work Phone: Start: 04-04-2025 Calculation of inter national normalized ratio Meir Zepeda MD Work Phone: Start: 03-31-2025 Assay of triglycerides Meir Zepeda MD Work Phone: Start: 03-31-2025 Total cholesterol:HD L ratio measurement Meir Zepeda MD Work Phone: Start: 03-31-2025 Triglycerides measurement Meir Zepeda MD Work Phone: Start: 03-28-2025 Blood count smear mc rscp w/mnl difrntl wbc count Meir Zepeda MD Work Phone: Start: 03-28-2025 Estimated creatinine clearance Meir Zepeda MD Work Phone: Start: 03-28-2025 Mean corpuscular hem oglobin concentration determination Meir Zepeda MD Work Phone: Start: 03-28-2025 Neutrophil count Meir Zepeda MD Work Phone: Start: 03-28-2025 Nucleated red blood cell count procedure Meir Zepeda MD Work Phone: Start: 03-28-2025 Platelet mean volume determination Meir Zepeda MD Work Phone: Start: 03-28-2025 Serum inorganic phos phate measurement Meir Zepeda MD Work Phone: Start: 03-27-2025 Calculation of inter national normalized ratio Meir Zepeda MD Work Phone: Start: 03-25-2025 Blood count smear mc rscp w/mnl difrntl wbc count Meir Zepeda MD Work Phone: Start: 03-25-2025 Estimated creatinine clearance Meir Zepeda MD Work Phone: Start: 03-25-2025 Mean corpuscular hem oglobin concentration determination Meir Zepeda MD Work Phone: Start: 03-25-2025 Neutrophil count Meir Zepeda MD Work Phone: Start: 03-25-2025 Nucleated red blood cell count procedure Meir Zepeda MD Work Phone: Start: 03-25-2025 Platelet mean volume determination Meir Zepeda MD Work Phone: Start: 03-24-2025 Plain X-ray of hip Gladis Zepeda MD Work Phone: Start: 03-24-2025 Total replacement of hip Meir Zeepda MD Work Phone: Start: 03-16-2025 Methicillin resistan t Staphylococcus aureus screening test Meir Zepeda MD Work Phone: Start: 03-16-2025 Serum fructosamine measurement Meir Zepeda MD Work Phone: Comment on above: Published reference interval for apparently healthysubjects between age 20 and 60 is 205 - 285 umol/L and in apoorly controlled diabetic population is 228 - 563 umol/Lwith a mean of 396 umol/L.Performed at: [facility] [address] [id number] Director: Herb Kincaid PhD, Phone: [phone] Start: 03-13-2025 MRI of lower extremity Meir Zepeda MD Work Phone: Start: 02-19-2025 Assay of triglycerides Meir Zepeda MD Work Phone: Start: 02-19-2025 Total cholesterol:HD L ratio measurement Meir Zepeda MD Work Phone: Start: 02-19-2025 Triglycerides measurement Meir Zepeda MD Work Phone: Start: 02-19-2025 Vitamin D, 25-hydrox y measurement Meir Zepeda MD Work Phone: Comment on above: Vitamin D StatusDefi ciency: <20 ng/mL (50nmol/L)Insufficiency: 20-30 ng/mL (50-75 nmol/L)Sufficiency: 30-100 ng/mL (75-250 nmol/L)Toxicity: >100 ng/mL (>250 nmol/L) Start: 01-12-2025 CT of abdomen and pe lvis without contrast Deysi Castro DO Work Phone: Start: 01-12-2025 Urine microscopy: red cells Meir Zepeda MD Work Phone: Start: 01-12-2025 Urnls dip stick/tabl et reagent auto microscopy Deysi Castro DO Work Phone: Start: 01-12-2025 Blood count smear mc rscp w/mnl difrntl wbc count Meir Zepeda MD Work Phone: Start: 01-12-2025 Estimated creatinine clearance Deysi Castro DO Work Phone: Start: 01-12-2025 Mean corpuscular hem oglobin concentration determination Meir Zepeda MD Work Phone: Start: 01-12-2025 Neutrophil count Meir Zepeda MD Work Phone: Start: 01-12-2025 Nucleated red blood cell count procedure Meir Zepeda MD Work Phone: Start: 01-12-2025 Platelet mean volume determination Meir Zepeda MD Work Phone: Start: 01-07-2025 Plain X-ray abdomen Micaela Castro DO Work Phone: Start: 01-07-2025 Blood count smear mc rscp w/mnl difrntl wbc count Meir Zepeda MD Work Phone: Start: 01-07-2025 Mean corpuscular hem oglobin concentration determination Meir Zepeda MD Work Phone: Start: 01-07-2025 Neutrophil count Meir Zepeda MD Work Phone: Start: 01-07-2025 Nucleated red blood cell count procedure Meir Zepeda MD Work Phone: Start: 01-07-2025 Platelet mean volume determination Meir Zepeda MD Work Phone: Start: 12-27-2024 Radex ankle complete minimum 3 views Leonardo Moomaw REGIONAL ENVIRONMENTAL MANAGER.SMOKING PIPE REPAIRER Work Phone: Start: 11-21-2024 Plain x-ray of [...] Work Phone: Start: 07-09-2024 Gram stain microscopy Sheryl Zepeda MD Work Phone: Start: 07-07-2024 CT [...] Castro Work Phone: Start: 06-08-2023 Investigation of tra nsfusion reaction DO Deysi Castro Work Phone: Start: 06-08-2023 Microbial culture, routine DO Deysi Castro Work Phone: Start: 05-18-2023 Anaerobic microbial culture DO Deysi Castro Work Phone: Start: 05-18-2023 Investigation of tra nsfusion reaction DO Deysi Castro Work Phone: Start: [...] Start: 03-12-2023 Plain chest X-ray DO Medhat Mayfieldnger Work Phone: Start: 02-22-2023 Plain chest X-ray DO Medhat Castro Work Phone: Start: 02-02-2023 End: 02-02-2023 Plain chest X-ray Dr. Gilberto Rasmussen Work Phone: Start: 01-24-[address] Gilberto Rasmussen Work Phone: Start: 01-24-[address] Laverne Rasmussen Work Phone: Start: 01-24-2023 Investigation of tra nsfusion reaction Dr. Gilberto Rasmussen Work Phone: Start: [...] 07-24-2022 MRI of brain with contrast Dr. Milton Almanzar Work Phone: Start: 06-28-2022 Radiologic exam colo n double contrast study Asad Guerin MD Work Phone: Start: 06-28-2022 Gluc bld gluc mntr d ev cleared fda spec home use Osiris Kim MD Work Phone: Start: 06-28-2022 Colonoscopy flx dx w /collj spec when pfrmd Clari Whitmore PA-C Work Phone: Start: 06-28-2022 Colonoscopy Asad perez MD Work Phone: Start: 06-08-2022 Plain x-ray of pelvi s and lower extremity Start: 06-08-2022 X-ray of lumbosacral spine Start: 04-13-2022 Dual energy X-ray absorptiometry Dr. Milton Almanzar Work Phone: Start: 04-13-2022 Screening mammography Paulette Almanzar Work Phone: Start: 12-06-2021 US scan of thyroid Start: 11-03-2021 Plain chest X-ray Start: 06-18-2019 Mammography Clari Mp quinonez PA-C Work Phone: Start: 01-24-2017 Colonoscopy Clari quinonez PA-C Work Phone: Plan of Treatment Date Care Activity Detail Author Start: 06-28-2027 Colonoscopy COLONOSCOPY [facility] Start: 06-28-2027 COLORECTAL CANCER SCREENING COLORECTAL CANCER SCREENING [facility] Start: 06-28-2027 Screening for malignant neoplasm of colon [facility] Start: 02-23-2026 Screening for malignant neoplasm of breast Mammogram Screening [facility] Start: 12-27-2025 BP Controlled (<130/80) BP Controlled (<130/80) [facility] Start: 06-28-2025 Colonoscopy COLONOSCOPY [facility] Start: 06-28-2025 COLORECTAL CANCER SCREENING COLORECTAL CANCER SCREENING [facility] Start: 06-23-2025 ambulatory Facility:[facility] Start: 05-13-2025 -Physical Therapy Work Phone: Start: 05-04-2025 Plain x-ray of pelvis and lower extremity [facility] Start: 05-04-2025 XR Pelvis and Hip Views [facility] Start: 05-04-2025 Radex ankle complete minimum 3 views [facility] Start: 05-04-2025 Radex foot complete minimum 3 views [facility] Start: 05-04-2025 XR Ankle GE 3 Views [facility] Start: 05-04-2025 XR Foot GE 3 Views [facility] Start: 04-04-2025 Patient discharge [facility] Start: 04-03-2025 Recommendation to continue with treatment [facility] Start: 04-02-2025 [facility] Start: 04-02-2025 Referral to service [facility] Start: 03-31-2025 [facility] Start: 03-28-2025 Application of device [facility] Start: 03-27-2025 Recommendation to continue with treatment [facility] Start: 03-27-2025 Implementation of planned interventions [facility] Start: 03-27-2025 Urinary bladder training [facility] Start: 03-27-2025 Wound care [facility] Start: 03-27-2025 Admission procedure [facility] Start: 03-27-2025 Measuring intake and output [facility] Start: 03-27-2025 Patient referral to dietitian [facility] Start: 03-27-2025 Referral for physical therapy [facility] Start: 03-27-2025 Referral to service [facility] Start: 03-27-2025 Vital signs measurements [facility] Start: 03-27-2025 [facility] Start: 03-27-2025 Referral to occupational therapist [facility] Start: 03-27-2025 Patient discharge [facility] Start: 03-27-2025 Continuous positive airway pressure ventilation treatment [facility] Start: 03-26-2025 [facility] Start: 03-25-2025 [facility] Start: 03-24-2025 End: 03-24-2025 [facility] Start: 03-24-2025 Care regimes management [facility] Start: 03-24-2025 Notification of physician [facility] Start: 03-24-2025 Oxygen therapy [facility] Start: 03-24-2025 Following clinical pathway protocol [facility] Start: 03-24-2025 Application of intermittent pneumatic compression device [facility] Start: 03-24-2025 Provision of overbed trapeze [facility] Start: 03-24-2025 End: 03-24-2025 [facility] Start: 03-24-2025 Admission procedure [facility] Start: 03-24-2025 Consultation [facility] Start: 03-24-2025 Recommendation to continue with treatment [facility] Start: 03-24-2025 Ambulation therapy management [facility] Start: 03-24-2025 Application of device [facility] Start: 03-24-2025 Assessment of risk of venous thromboembolism [facility] Start: 03-24-2025 Catheterization of vein [facility] Start: 03-24-2025 Exercises [facility] Start: 03-24-2025 Following clinical pathway protocol [facility] Start: 03-24-2025 Introduction of urinary catheter [facility] Start: 03-24-2025 Measuring intake and output [facility] Start: 03-24-2025 Neurovascular assessment [facility] Start: 03-24-2025 Patient education [facility] Start: 03-24-2025 Procedure discontinued [facility] Start: 03-24-2025 Provision of activity privileges [facility] Start: 03-24-2025 Referral for physical therapy [facility] Start: 03-24-2025 Referral to occupational therapist [facility] Start: 03-24-2025 End: 03-24-2025 Referral to service [facility] Start: 03-24-2025 Vital signs measurements [facility] Start: 03-24-2025 Wound care [facility] Start: 03-23-2025 Influenza vaccination Influenza Vaccine (#1) [facility] Start: 03-13-2025 End: 03-13-2025 Patient encounter procedure 03/13/2025 10:00 AM EDT Office Visit OB/Gynecology [address] [place] [address] Manuela Montana APRN.SMOKING PIPE REPAIRER [address] [place] [address] annual OB/Gynecology Comment on above: annual Start: 01-12-2025 [facility] Start: 11-21-2024 Patient referral [facility] Work Phone: Start: 07-23-2024 Advance Directive Discussion Advance Directive Discussion [facility] Start: 03-23-2024 Covid-19 Vaccine ( season) Covid-19 Vaccine ( season) [facility] Start: 03-13-2024 3 comp foot exam completed DIABETIC FOOT EXAM [facility] Start: 03-13-2024 Diabetic foot examination Diabetic Foot Exam [facility] Start: 01-21-2024 BP CONTROLLED (<130/80) BP CONTROLLED (<130/80) [facility] Start: 11-20-2023 Diagnostic radiography of abdomen Abdomen Single View [facility] Start: 11-20-2023 XR Abdomen Single view [facility] Start: 11-08-2023 Patient referral [facility] Work Phone: Start: 06-14-2023 Hemoglobin A1c measurement HbA1C [facility] Start: 06-14-2023 Hemoglobin A1c/Hemoglobin.total in Blood HBA1C [facility] Start: 06-09-2023 Urine microalbumin profile [facility] Start: 05-18-2023 Anaerobic microbial culture Anaerobic Culture [facility] Start: 05-10-2023 BP CONTROLLED (<130/80) BP CONTROLLED (<130/80) [facility] Start: 05-10-2023 Screening for malignant neoplasm of cervix Cervical Cancer Screening [facility] Start: 04-28-2023 BP CONTROLLED (<130/80) BP CONTROLLED (<130/80) [facility] Start: 04-19-2023 Patient referral [facility] Work Phone: Start: 03-23-2023 Covid-19 Vaccine ( season) Covid-19 Vaccine ( season) [facility] Start: 03-23-2023 Influenza vaccination [facility] Start: 02-27-2023 Patient referral [facility] Work Phone: Start: 01-30-2023 [facility] Start: 01-26-2023 Prothrombin time [facility] Start: 01-25-2023 Patient discharge [facility] Start: 01-24-2023 [facility] Start: 01-24-2023 Anaerobic Culture Anaerobic Culture [facility] Start: 01-24-2023 Body Fluid Culture Body Fluid Culture [facility] Start: 01-24-2023 Vital signs measurements [facility] Start: 01-23-2023 Following clinical pathway protocol [facility] Start: 01-23-2023 Ambulation without limitation [facility] Start: 01-23-2023 Assessment of risk of venous thromboembolism [facility] Start: 01-23-2023 Care regimes management [facility] Start: 01-23-2023 Insertion of catheter into peripheral vein [facility] Start: 01-23-2023 Providing care according to standard [facility] Start: 01-23-2023 [facility] Start: 01-23-2023 Verification routine [facility] Start: 01-23-2023 Admission procedure [facility] Start: 01-20-2023 Emergency dept visit high severity&threat funcj EMERGENCY DEPT VISIT HI MDM [facility] Start: 01-20-2023 Iv infusion hydration initial 31 min-1 hour HYDRATION IV INFUSION INIT [facility] Start: 12-25-2022 Patient referral [facility] Work Phone: Start: 12-14-2022 Shingrix Vaccine (2 of 2) Shingrix Vaccine (2 of 2) [facility] Start: 09-16-2022 COVID-19 VACCINE (5 - Moderna series) COVID-19 VACCINE (5 - Moderna series) [facility] Start: 07-23-2022 ADVANCE DIRECTIVE DISCUSSION ADVANCE DIRECTIVE DISCUSSION [facility] Start: 04-13-2022 Dual energy X-ray absorptiometry Dexa Bone Density Study [facility] Work Phone: Start: 02-14-2022 Endeavor and lambda light chains [facility] Work Phone: Start: 2021 ADVANCE DIRECTIVE DISCUSSION ADVANCE DIRECTIVE DISCUSSION [facility] Start: 2021 BONE DENSITY BONE DENSITY [facility] Start: 2021 Bone Density Screening Bone Density Screening [facility] Start: 2021 Screening for osteoporosis Bone Density Screening [facility] Start: 10-21-2021 Medicare Annual Wellness Visit Medicare Annual Wellness Visit [facility] Start: 07-29-2021 COVID-19 VACCINE (4 - Booster for Moderna series) COVID-19 VACCINE (4 - Booster for Moderna series) [facility] Start: 06-18-2020 Mammography [facility] Start: 06-18-2020 Screening for malignant neoplasm of breast Mammogram Screening [facility] Start: 04-11-2020 ANNUAL PCP TEAM CHRONIC DISEASE VISIT ANNUAL PCP TEAM CHRONIC DISEASE VISIT [facility] Start: 04-04-2020 Glaucoma screening Dilated Retinal Exam [facility] Start: 04-04-2020 Hepatitis C antibody, confirmatory test DILATED RETINAL EXAM [facility] Start: 03-14-2020 Hepatitis B screening URINE ALBUMIN:CREATININE RATIO [facility] Start: 03-10-2020 3 comp foot exam completed DIABETIC FOOT EXAM [facility] Start: 01-25-2020 Colonoscopy COLONOSCOPY [facility] Start: 01-25-2020 COLORECTAL CANCER SCREENING COLORECTAL CANCER SCREENING [facility] Start: 09-14-2019 Hemoglobin A1c/Hemoglobin.total in Blood HBA1C [facility] Start: 09-14-2019 Hepatitis B surface antibody level LDL CHOLESTEROL [facility] Start: 2016 Hepatitis B Vaccine (1 of 3 - Risk 3-dose series) Hepatitis B Vaccine (1 of 3 - Risk 3-dose series) [facility] Start: 2016 RSV Vaccine (1 - 1-dose 60+ series) RSV Vaccine (1 - 1-dose 60+ series) [facility] Start: 2006 SHINGRIX VACCINE (1 of 2) SHINGRIX VACCINE (1 of 2) [facility] Start: 2001 COLOGUARD (FIT-DNA) COLOGUARD (FIT-DNA) [facility] Start: [address] COLONOGRAPHY [facility] Start: 2001 FECAL OCCULT BLOOD FECAL OCCULT BLOOD [facility] Start: 2001 Screening for malignant neoplasm of colon [facility] Start: 2001 SIGMOIDOSCOPY SIGMOIDOSCOPY [facility] Start: 1974 Annual PCP Team Chronic Disease Visit Annual PCP Team Chronic Disease Visit [facility] Start: 1974 BP Controlled (<130/80) BP Controlled (<130/80) [facility] Start: 1974 HIV SCREENING HIV SCREENING [facility] Start: 1962 Pneumococcal Vaccine: 65+ (1 - PCV) Pneumococcal Vaccine: 65+ (1 - PCV) [facility] Start: 1962 PNEUMOCOCCAL: 65+ (1 - PCV) PNEUMOCOCCAL: 65+ (1 - PCV) [facility] Angiotensin converti ng enzyme [Enzymatic activity/volume] in Serum or Plasma [facility] Bacteria identified in Body fluid by Culture [facility] Bacteria identified in Unspecified specimen by Anaerobe culture [facility] Cyclic citrullinated peptide IgG Ab [Units/volume] in Serum or Plasma [facility] End: 09-21-2026 DBT Breast - bilateral screening VALENTIN SCREENING W GAL Radiology Routine Encounter for screening mammogram for breast cancer 1 Occurrences starting 03/13/2025 until 04/12/2026 [facility] Work Phone: Comment on above: 1 Occurrences starting 03/13/2025 until 04/12/2026 Folate [Mass/volume] in Serum or Plasma [facility] INR in Blood by Coagulation assay [facility] Endeavor and lambda lig ht chains [facility] Endeavor/lambda light c mary ratio [facility] Work Phone: Lambda light chains. free [Mass/volume] in Serum or Plasma [facility] Work Phone: Neutrophil cytoplasm ic Ab.classic [Units/volume] in Serum [facility] P-ANCA measurement [facility] PAP FLUID CERVICAL SCREENING PAP FLUID CERVICAL SCREENING Lab Routine Encounter for routine gynecologic examination in Medicare patient Encounter for Papanicolaou smear for cervical cancer screening Ordered: 05/10/2022 [facility] Work Phone: Comment on above: Ordered: 05/10/2022 PAP TEST PAP TEST Lab [address] Encounter for gynecologic examination for high-risk patient covered by Medicare 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) Encounter for Papanicolaou smear for cervical cancer screening 03/13/2025 10:43 AM EDT [facility] Patient Education [facility] Work Phone: Patient referral [facility] Work Phone: Prothrombin time [facility] End: 04-28-2024 Radiologic exam chest 2 views XR CHEST 2V FRONTAL/LAT Radiology Routine Surgery follow-up 1 Occurrences starting 03/30/2023 until 04/28/2024 [facility] Work Phone: Comment on above: 1 Occurrences starting 03/30/2023 until 04/28/2024 End: 05-05-2024 Radiologic exam chest 2 views XR CHEST 2V FRONTAL/LAT Radiology Routine 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) 1 Occurrences starting 04/06/2023 until 05/05/2024 [facility] Work Phone: Comment on above: 1 Occurrences starting 04/06/2023 until 05/05/2024 Serum immunofixation [facility] Smooth muscle Ab [Presence] in Serum [facility] Thiamine measurement [facility] Thyroid stimulating hormone measurement [facility] Urine immunofixation [facility] Urine kappa light ch ain measurement [facility] Work Phone: US.doppler Lower extremity vein [facility] Work Phone: [facility] Immunizations Immunization Date Immunization Notes Care Provider Fa cili 05-19-2024 influenza, seasonal, injectable, preservative free Meir Zepeda MD Work Phone: [facility] 05-19-2024 influenza virus vaccine, unspecified formulation Screen Wstr [facility] 06-08-2023 RSV Adult BiValent (Abrysvo) Meir Zepeda MD Work Phone: [facility] 05-02-2023 Pneumococcal Vaccine PCV20 (Prevnar 20) Meir Zepeda MD Work Phone: [facility] 10-19-[address] Gilberto Rasmussen Work Phone: [facility] 04-21-2022 influenza, injectabl e, quadrivalent, preservative free DO Deysi Castro Work Phone: [facility] 04-21-2022 influenza, seasonal, injectable Dr. Gilberto Rasmussen Work Phone: [facility] 04-21-2022 influenza virus vaccine, unspecified formulation Chanel Martinez REGIONAL ENVIRONMENTAL MANAGER.SMOKING PIPE REPAIRER Work Phone: [facility] 06-03-2021 Covid (Moderna) Dr. Gilberto Rasmussen Work Phone: [facility] 04-01-2021 Influenza, injectabl e, Madin Lashae Canine Kidney, preservative free, quadrivalent Dr. Gilberto Rasmussen Work Phone: [facility] 10-29-2020 Covid (Moderna) Dr. Gilberto Rasmussen Work Phone: [facility] 10-01-2020 Anibal (Josea) Dr. Gilberto Rasmussen Work Phone: [facility] 04-23-2020 influenza, injectabl e, quadrivalent, preservative free DO Deysi Matthew Work Phone: [facility] 04-23-2020 influenza, seasonal, injectable Dr. Gilberto Rasmussen Work Phone: [facility] 06-03-2018 influenza, injectabl e, quadrivalent, preservative free DO Deysi Matthew Work Phone: [facility] 06-03-2018 influenza, seasonal, injectable Clari Gardena PA-C Work Phone: [facility] 04-16-2016 influenza, injectabl e, quadrivalent, preservative free Clari Gardena PA-C Work Phone: [facility] 04-16-2016 influenza, seasonal, injectable Dr. Gilberto Rasmussen Work Phone: [facility] 05-22-2014 influenza, injectabl e, quadrivalent, preservative free DO Deysi Matthew Work Phone: [facility] 05-22-2014 influenza, seasonal, injectable Clari Gardena PA-C Work Phone: [facility] 06-09-2013 influenza virus vaccine, unspecified formulation Clari Gardena PA-C Work Phone: [facility] 06-09-2013 tetanus toxoid, redu bryanna diphtheria toxoid, and acellular pertussis vaccine, adsorbed Clari Haim PA-C Work Phone: [facility] Payers Date Payer Category Payer Self-pay [id number] 2021 Medicare [id number] 2021 Private Health Insurance [id number] 2021 Medicare [id number] 2021 Unknown [id number] 2013 Unknown [id number] Private Health Insurance [id number] Unknown [id number] Unknown [id number] Unknown [id number] 2.16.8 40.1.637403.3.579.2.462 Unknown [id number] 2.16.8 40.1.181837.3.579.2.462 Unknown [id number] 2.16.8 40.1.028041.3.579.2.462 Unknown [id number] 2.16.8 40.1.969216.3.579.2.462 Unknown [id number] 2.16.8 40.1.422087.3.579.2.462 Unknown [id number] 2.16.8 40.1.789058.3.579.2.462 Unknown [id number] 2.16.8 40.1.365809.3.579.2.462 Unknown [id number] 2.16.8 40.1.243349.3.579.2.462 Unknown [id number] 2.16.8 40.1.495898.3.579.2.462 Unknown [id number] 2.16.8 40.1.293930.3.579.2.462 Unknown [id number] 2.16.8 40.1.785800.3.579.2.462 Unknown [id number] 2.16.8 40.1.429651.3.579.2.462 Unknown [id number] 2.16.8 40.1.796970.3.579.2.462 Unknown [id number] 2.16.8 40.1.351132.3.579.2.462 Unknown [id number] 2.16.8 40.1.909613.3.579.2.462 Unknown [id number] 2.16.8 40.1.369515.3.579.2.462 Unknown [id number] 2.16.8 40.1.982882.3.579.2.462 Unknown [id number] 2.16.8 40.1.803235.3.579.2.462 Unknown [id number] 2.16.8 40.1.333736.3.579.2.462 Unknown [id number] 2.16.8 40.1.438334.3.579.2.462 Unknown [id number] 2.16.8 40.1.670089.3.579.2.462 Unknown [id number] 2.16.8 40.1.016520.3.579.2.462 Unknown [id number] 2.16.8 40.1.984809.3.579.2.462 Unknown [id number] 2.16.8 40.1.085552.3.579.2.462 Unknown [id number] 2.16.8 40.1.401943.3.579.2.462 Unknown [id number] 2.16.8 40.1.494363.3.579.2.462 Unknown [id number] 2.16.8 40.1.458091.3.579.2.462 Unknown [id number] 2.16.8 40.1.384394.3.579.2.462 Unknown [id number] 2.16.8 40.1.406813.3.579.2.462 Unknown [id number] 2.16.8 40.1.741112.3.579.2.462 Unknown [id number] 2.16.8 40.1.427066.3.579.2.462 Unknown [id number] 2.16.8 40.1.122261.3.579.2.462 Unknown [id number] 2.16.8 40.1.251384.3.579.2.462 Unknown [id number] 2.16.8 40.1.435225.3.579.2.462 Unknown [id number] 2.16.8 40.1.149032.3.579.2.462 Unknown [id number] 2.16.8 40.1.917379.3.579.2.462 Unknown [id number] 2.16.8 40.1.833080.3.579.2.462 Unknown [id number] 2.16.8 40.1.833668.3.579.2.462 Unknown [id number] 2.16.8 40.1.549576.3.579.2.462 Unknown [id number] 2.16.8 40.1.025693.3.579.2.462 Unknown [id number] 2.16.8 40.1.404619.3.579.2.462 Unknown [id number] 2.16.8 40.1.249062.3.579.2.462 Unknown [id number] 2.16.8 40.1.962708.3.579.2.462 Unknown [id number] 2.16.8 40.1.760267.3.579.2.462 Unknown [id number] 2.16.8 40.1.217406.3.579.2.462 Unknown [id number] 2.16.8 40.1.222010.3.579.2.462 Unknown [id number] 2.16.8 40.1.122124.3.579.2.462 Unknown [id number] 2.16.8 40.1.939474.3.579.2.462 Unknown [id number] 2.16.8 40.1.552356.3.579.2.462 Unknown [id number] 2.16.8 40.1.976077.3.579.2.462 Unknown [id number] 2.16.8 40.1.034294.3.579.2.462 Unknown [id number] 2.16.8 40.1.146627.3.579.2.462 Unknown [id number] 2.16.8 40.1.434072.3.579.2.462 Unknown [id number] 2.16.8 40.1.496711.3.579.2.462 Unknown [id number] 2.16.8 40.1.506078.3.579.2.462 Unknown [id number] 2.16.8 [id number] Unknown [id number] Unknown [id number] [id number] [id number] Unknown [id number] [id number] Unknown [id number] [id number] Social History Date Type Detail Facility Start: 06-13-2021 End: 04-27-2023 Tobacco smoking status NJIS Unknown if ever smoked [facility] Start: 12-14-2018 None [facility] Start: 12-14-2018 With Family [facility] Start: 12-15-2018 Non-smoker [facility] Start: 1955 [facility] Start: 11-05-2017 End: 03-27-2025 Tobacco smoking status NHIS Ex-smoker [facility] History of tobacco use Current smoker [facility] History of tobacco use Cigarette Smoker [facility] History of tobacco use Cigar Smoker [facility] Start: 11-05-2017 End: 03-14-2023 Cigarettes smoked current (pack per day) - Reported 1.5 [facility] Start: 11-05-2017 End: 03-13-2025 Tobacco use and exposure Smokeless tobacco non-user [facility] Start: 04-28-2022 End: 04-23-2023 Alcohol intake Current non-drinker of alcohol (finding) [facility] Start: 05-18-2014 End: 01-20-2023 Tobacco Comment 01/20/14 [facility] Start: 04-18-2022 End: 04-28-2022 Exposure to SARS-CoV-2 (event) Not sure [facility] Start: 01-20-2023 End: 03-14-2023 Tobacco use panel [facility] Start: 06-23-2012 Adult Depression Screening Assessment 0 [facility] Start: 12-26-2021 Gender identity Identifies as female gender (finding) [facility] Start: 12-26-2021 Sexual orientation Heterosexual (fin ding) [facility] Start: 11-06-2023 Tobacco smoking stat us NJIS Never smoked tobacco (finding) [facility] Start: 10-07-2024 End: 11-18-2024 Sex Female (finding) [facility] Start: 03-13-2025 Alcoholic beverage intake Ex-drinker (finding) [facility] Medical Equipment Procedure Code Equipment Code [...] FDA Start: 12-14-2018 Cystoscopic insertion of stent FDA Start: 12-14-2018 Cystoscopic insertion of stent FDA Start: 12-14-2018 Cystoscopic insertion of stent FDA Start: 12-14-2018 Cystoscopic insertion of stent FDA Start: 12-14-2018 Cystoscopic insertion of stent FDA Start: 12-14-2018 Cystoscopic insertion of stent FDA Start: 12-14-2018 Cystoscopic insertion of stent FDA Start: 12-14-2018 Cystoscopic insertion of stent FDA Start: 12-14-2018 Cystoscopic insertion of stent FDA Start: 12-14-2018 Cystoscopic insertion of stent FDA Start: 12-14-2018 Cystoscopic insertion of stent FDA Start: 12-14-2018 Cystoscopic insertion of stent FDA Start: 12-14-2018 Cystoscopic insertion of stent FDA Start: 12-14-2018 Cystoscopic insertion of stent FDA Start: 12-14-2018 Cystoscopic insertion of stent FDA Start: 12-14-2018 Cystoscopic insertion of stent FDA Start: 12-14-2018 Arthroplasty, hip, total, using robot-assisted navigation ([id number]) ()[id number] FDA Start: 03-24-2025 Arthroplasty, hip, total, using robot-assisted navigation ([id number]) ()[id number] FDA Start: 03-24-2025 Arthroplasty, hip, total, using robot-assisted navigation ([id number]) ()[id number] FDA Start: 03-24-2025 Arthroplasty, hip, total, using robot-assisted navigation ([id number]) ()[id number] FDA Start: 03-24-2025 Arthroplasty, hip, total, using robot-assisted navigation ([id number]) ()[id number] FDA Start: 03-24-2025 use 3 times a da y or as directedwith insulin pens Start: 03-24-2023 Comment on above: use 3 times a day or as directedwith insulin pens Goals Date Patient Goal Desired Activity /State Functional Status Date Assessment Result Facility 04-04-2025 Functional status Ambulates;Chair [facility] Work Phone: 03-27-2025 Functional status Ambulates [facility] Work Phone: 03-24-2023 Are you deaf, or do you have serious difficulty hearing No 03/24/2023 3:30 PM Ludmila Arana, GURVINDER No [facility] 03-24-2023 Are you blind, or do you have serious difficulty seeing, even when wearing glasses No 03/24/2023 3:30 PM Ludmila Arana, GURVINDER No [facility] 03-24-2023 Do you have serious difficulty walking or climbing stairs No 03/24/2023 3:30 PM Ludmila Arana, GURVINDER No [facility] 03-24-2023 Do you have difficul ty dressing or bathing No 03/24/2023 3:30 PM Ludmila AranaGURVINDER No [facility] 03-24-2023 Because of a physica l, mental, or emotional condition, do you have difficulty doing errands alone such as visiting a physician's office or shopping No 03/24/2023 3:30 PM EDT Ludmila Malone RN No [facility] 01-25-2023 Functional status Ambulates [facility] Work Phone: Mental Status Date Assessment Result Facility 04-04-2025 Cognitive function Voice/Name [facility] Work Phone: 03-27-2025 Cognitive function Voice/Name [facility] Work Phone: 03-24-2023 Because of a physica l, mental, or emotional condition, do you have serious difficulty concentrating, remembering, or making decisions No 03/24/2023 3:30 PM EDT Ludmila Malone RN No [facility] 01-25-2023 Cognitive function Voice/Name [facility] Work Phone: 01-24-2023 Cognitive function Level Of Cons ciousness Awake;Alert;Appropriate;Fol lows Commands [facility] Work Phone: Clinical Notes 11-05-2017 to 05-04-2025 Note Date & Type Note Facility 05-04-2025 Radiology Diagnostic study note [facility] 04-03-2025 Discharge summary Note Date/Time April 03, 2025 5:19pm [facility] Medical Records Department [address] [place] [id number] Discharge Summary 04/03/25 1651 MR#: [id number] Acct: [id number] Name: ELSA BLUE Rep #:[id number] : 1955 69 From: Farida Zavala DO PCP: Dr. Meir Zepeda MD Status:ADM IN Location: [address] Providers Date of Admission: 03/27/25 Date of Discharge: 04/04/25 Primary Care Physician: Meir Zepeda MD Reason For Visit: RIGHT TOTAL HIP Diagnosis Discharge Diagnosis (1) Physical debility: Status: Acute Code(s): R53.81 - Other malaise (2) S/P total right hip arthroplasty: Status: Acute Code(s): Z96.641 - Presence of right artificial hip joint Plan: 04-[address] Jose Ramon Terry. (3) Primary osteoarthritis of right hip: Status: Chronic Code(s): M16.11 - Unilateral primary osteoarthritis, right hip (4) Acute blood loss as cause of postoperative anemia: Status: Acute Code(s): D62 - Acute posthemorrhagic anemia Plan: Hemoglobin is stable at 9.8 at the time of discharge. (5) Chronic anticoagulation: Status: Chronic Code(s): Z79.01 - MCC (current) use of anticoagulants Plan: Warfarin. ? 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 Has had never had an unprovoked event. Hasnever had a hypercoagulable W/U to her knowledge. Review of the EMR at [facility] shows no hypercoagulable testing was done here. (6) DVT (deep venous thrombosis): Status: Inactive Code(s): I82.409 - Acute embolism and thrombosis of unspecified deep veins of unspecifiedlower extremity Qualifiers: DVT location: lower extremity Affected thrombotic vein of extremity: unspecified lower extremity proximal vein Chronicity: unspecified Laterality: right Qualified Code(s): I82.4Y1 - Acute embolism and thrombosis of unspecified deep veins of right proximal lower extremity Plan: 2014 after reconstruction surgery after Gastric Bypass. (7) Pulmonary embolism: Status: Inactive Code(s): I26.99 - Other pulmonary embolism without acute cor pulmonale Qualifiers: Pulmonary embolism type: unspecified Chronicity: unspecified Acute corpulmonale presence: unspecified Qualified Code(s): I26.99 - Other pulmonary embolism without acute cor pulmonale Plan: In 2006 following [place]-en-Y gastric bypass surgery. (8) Presence of IVC filter: Status: Chronic Code(s): Z95.828 - Presence of other vascular implants and grafts (9) Spinal stenosis of lumbar region with neurogenic claudication: Status: Chronic Code(s): M48.062 - Spinal stenosis, lumbar region with neurogenic claudication Plan: She will continue to follow with Dr. Johnson. (10) Lumbar radiculopathy: Status: Chronic Code(s): M54.16 - Radiculopathy, lumbar region (11) Fibromyalgia: Status: Chronic Code(s): M79.7 - Fibromyalgia (12) HTN (hypertension): Status: Chronic Code(s): I10 - Essential (primary) hypertension Qualifiers: Hypertension type: primary hypertension Qualified Code(s): I10 - Essential (primary) hypertension (13) Diabetes mellitus, type 2: Status: Chronic Code(s): E11.9 - Type 2 diabetes mellitus without complications Qualifiers: Diabetes mellitus alf insulin use: without alf use Diabetesmellitus complication status: with neurologic complications Diabetes mellitus complication detail: with polyneuropathy Qualified Code(s): E11.42 - Type 2 diabetes mellitus with diabetic polyneuropathy Plan: Hemoglobin A1c is 6.8% currently. (14) Rheumatoid arthritis: Status: Chronic Code(s): M06.9 - Rheumatoid arthritis, unspecified Qualifiers: Rheumatoid arthritis location: unspecified site Rheumatoid factor presence: without rheumatoid factor Qualified Code(s): M06.00 - Rheumatoid arthritis without rheumatoid factor, unspecified site Plan: Follows with Dr. Yip (15) Class II obesity: Status: Chronic Code(s): E66.812 - Obesity, class 2 (16) STEFFI (obstructive sleep apnea): Status: Chronic Code(s): G47.33 - Obstructive sleep apnea (adult) (pediatric) Plan: Compliant with CPAP. Plan 1. DC home on 04/04/25. 2. PT/INR on Sunday 3. INR supratherapeutic at 3.9 on 04/03/25. Warfarin held and dose changed to 8mg daily. 4. Continue anticoagulation for 2 months and then recommend follow up with Dr. Mckenzie for a hypercoagulable W/U. If this is negative then she would not need chronic anticoagulation because the 2 events she has had in the past have both been provoked by long major surgeries. 5. Follow up scheduled with Dr. Terry and Dr. Zepeda 6. She will continue to follow-up with Dr. Mackey for chronic pain management,Dr. Rasmussen for restless leg syndrome Medications at Discharge Home Medications multivitamin with folic acid 400 mcg tablet 1 tab PO DAILY SUPPLEMENT 02/11/14 trazodone 50 mg tablet 100 mg PO QHS SLEEP 02/11/14 biotin 10,000 mcg capsule 10,000 mcg PO DAILY HAIR LOSS 05/30/21 calcium 600 mg (as carbonate)-vitamin D3 12.5 mcg (500 unit) capsule (Calcium with Vit D3) 1 cap PO BID SUPPLEMENT 05/30/21 hydroxychloroquine 200 mg tablet 200 mg PO BID OA 01/18/24 methotrexate sodium 2.5 mg tablet 20 mg PO SA OA 02/25/25 Held on 04/03/25. Instructions: Do Not take this medication until Dr. Terry tells you it is OK to restart. CPAP - Continuous Positive Airway Pressure([facility] INFORMATIONAL USE ONLY) 03/10/25 omeprazole 20 mg capsule,delayed release 20 mg PO DAILY GERD 03/10/25 ropinirole 2 mg tablet 2 mg PO 1700 RLS 03/10/25 ropinirole 2 mg tablet 2 mg PO QHS RLS 03/10/25 warfarin 4 mg tablet 8 mg PO MOFR BLOOD THINNER 03/10/25 acetaminophen 500 mg tablet 1,000 mg PO Q8H pain 03/27/25 ascorbic acid (vitamin C) 1,000 mg tablet (C-1000) 1 g PO 1200 supplement 03/27/25 duloxetine 30 mg capsule,delayed release 90 mg (3 x 30 mg) PO DAILY #90 caps 04/03/25 ferrous sulfate 325 mg (65 mg iron) tablet 325 mg PO 1200 SUPPLEMENT #90 tabs 04/03/25 gabapentin 300 mg capsule 300 mg PO Q8 #90 caps 04/03/25 lisinopril 20 mg tablet 20 mg PO DAILY #30 tabs 04/03/25 metformin 1,000 mg tablet 1,000 mg PO BID DIABETES #60 tabs 04/03/25 sennosides 8.6 mg-docusate sodium 50 mg tablet (Stimulant Laxative Plus) 2 tab PO BID #60 tabs 04/03/25 tizanidine 4 mg tablet 8 mg (2 x 4 mg) PO QHS muscle spasticity/leg restlessness#60 tabs 04/03/25 tramadol 50 mg tablet 100 mg (2 x 50 mg) PO Q6H PRN PRN pain 4-10 14 days #56 tabs 04/03/25 warfarin 4 mg tablet (Jantoven) 8 mg (2 x 4 mg) PO DAILY #60 tabs 04/03/25 Hospital Course Operations total hip replacement (Right hip on 03/24/[address] Terry) Procedures None Summary of Care Provided Minutes Spent on Discharge: 45 Hospital Course: ELSA BLUE, is a 69 YO F with a PMH of DM II, RA (RF and CCP negative in the past), fibromyalgia, chronic low back pain with radicular pain, HTN, HLD, tobacco dependence in remission, DVT/PE (both were after surgeries when she was sedentary), chronic anticoagulation with warfarin, RLS, Anxiety/depression, STEFFI (compliant with CPAP....follows with Dr. Pereyra), Hx ofiron deficiency, peripheral neuropathy, nephrolithiasis, glaucoma, history of a gastric ulcer, GERD, history of [place]-en-Y gastric bypass, history of an IVC filter, small vessel cerebrovascular disease, right frontal convexity meningiomafound on MRI, IgG monoclonal protein (lambda type) in the past (follows with ), remote lacunar infarcts, cervical foraminal stenosis/spinal stenosis, lumbar canal stenosis/foraminal narrowing, positive atypical p-ANCA, diverticulosis, fatty infiltration of the liver, adrenal nodules/adenomas, multinodular goiter and morbid obesity who underwent a R DUNCAN on 03/24/[address] Terry. Post op course was remarkable for confusion (related to Oxycodone) andhypotension. She was transferred to the acute inpt rehab unit at [facility] on 03/27/25 for 3 hours of therapy daily to restore function/independence at or near her level prior to the DUNCAN. Elsa tells me that she has been on Warfarin for many years. 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 PE 2006 and DVT R upper thigh/groin in 2014. Both events occurred after long major surgeries. She denies ever being told she has a hypercoagulable disorder. She has an IVC filter placed because she had a lot of bleeding and could not take an anticoagulant after 1 of the events. INR's in the EMR since October of 2024 have all been WNL? She is told me that she was taking 8 mg of warfarin 5 days a week and 10 mg the other 2 days. She admits to eating a lot of green vegetables at home. If both events were provoked why is she still on anticoagulation? There were no significant complications on rehab and Elsa did very wellwith therapy. At the time of DC. Her hemoglobin has been stable at 9.6. INR on 04/03/2025 was high at 3.9 and warfarin was held on that date. She will have an INR done on 04/04/2025 prior to her discharge home and I will call her to tellher what to do with the warfarin if the instructions change. She was instructedto take 8 mg daily at discharge and she was given a lab slip to obtain a PTT/INRon Sunday of the coming week. At the time of discharge she is able to complete 1 curb step using a front wheel walker at contact-guard assist. She is able to do 10 sit to stands using her bilateral upper extremities to rise in 30 seconds. She has ambulated up to 210 feet on various surfaces [place] [facility] [place] is supervision/set up for grooming, toileting and toilet transfer. She is standby assist for bathing and contact-guard assist for tub/shower transfer.. She is independent with upper body dressing and contact-guard assist for lower body dressing. Her Chion came in for family training prior to discharge to learn how best to help Jyothi. She has appointments to follow-up with Dr. Zepeda and Dr. Terry scheduled for the week following discharge. She will continue to follow-up with Dr. Rasmussen for restless leg syndrome and Dr. Mackey for chronic pain management. She will continue warfarin for 2 months and then call to schedule an appointmentwith Dr. Mckenzie for a hypercoagulable workup. If the hypercoagulable workup is negative I see no reason why she needs to stay on chronic Coumadin as both of her VTE events were provoked. Physical Exam Const alert, oriented x3 and no apparent distress General Appearance: cooperative and well developed HEENT normocephalic, head/scalp atraumatic and hearing grossly normal bilaterally HEENT Narrative: Mucous membranes are more moist than they were at admission. Eyes PERRL, EOMs intact bilaterally, conjunctivae normal and no scleral icterus Eyes Narrative: No discharge from the eyes General Eye: normal appearance of both eyes Neck supple, no JVD and no carotid bruits Neck Narrative: Brisk carotid upstroke with good pulse volume. Chest Chest: symmetrical chest wall rise Resp normal respiratory effort and clear to auscultation bilaterally Resp Narrative: Breath sounds are mildly diminished which may be due to body habitus. No wheezing and no crackles. Not tachypneic. Effort and Inspection: able to speak in complete sentences Cardio regular rhythm, no murmurs, no rub and no gallops Cardio Narrative: No ectopy GI normal to inspection, nondistended, normoactive bowel sounds, soft to palpation and non-tender Bladder / Kidney Exam: No catheter in place Back/Spine no CVA tenderness Extremity Extremity Narrative: She has swelling of the RLE.......she did not have compression stockings on today or WILLIAMS wraps? Peripheral Pulses: Yes pulses 2+ throughout Skin no jaundice General Skin Exam: no breakdown Rashes: no rashes Wound Narrative: The R hip incision is intact with no dehiscence. There is a small amount of serous drainage but no purulent drainage. There is no sybil-incisional erythema. She did not complain of pain when I palpated around the incision. Neuro oriented x3, CN's II-XII intact bilaterally and moves all extremities Neuro Narrative: Has chronic radicular pain in the left calf and also in the right buttock and right thigh/groin. Psych mental status grossly normal, thought process normal, cooperative, affect normal, speech normal, denies hallucinations, denies homicidal ideation and denies suicidal ideation Appearance: appropriate and well kempt Attitude: calm Activity / Motor Behavior: appropriate eye contact Medical Records Data Homelessness:: Sheltered Weight / BMI Weight Weight: 233 lb 0.458 oz Body Mass Index (BMI) 38.8 ABG / Lab / Microbiology Data 03/31/25 07:20 03/28/25 06:48 Laboratory: Laboratory Results - last 24 hr 04/03/25 06:06: PT 38.8 H, INR 3.9 D/C Instructions Weight Bearing Status: Weight bearing as tolerated (RLE) Keep extremity elevated above heart level: Legs Call your doctor if your incision/area has: Continuous Slow Oozing, Sudden Increased Bleeding, Increased Pain/ Swelling, Increased Redness, Foul Smelling Discharge and Swelling at the incision site Call your doctor if you observe: Fever of 101 or Higher, Inability to have a bowel movement, Shortness of breath, Dizziness, Fainting spells, Swelling in theankles, Chest pain, Increased palpitations (irregular heartbeat), Calf discomfort (calf discomfort that is different than the chronic calf pain on the L. ) and Uncontrolled pain Suture Line Care: Avoid Pulling/Pushing and Avoid Pinching/Bending Cleanse incision/area with: Soap & Water and - (You do not need to have a dressing on the incision but, if there is drainage you can just cover it with a dry non stick dressing. It is OK to shower. Do not soak the incision (so no tub baths for now). ) DC O2, CPAP, BIPAP Needs Home O2 Discharge instructions: No Pending Tests Upon Discharge: none When: Appointment with Dr. Rasmussen and Dr. Terry are listed later in this document. He will need to make an appointment with Dr. Zepeda within the next 2 weeks. Meaningful Use Info Meaningful Use Meaningful Use Diagnoses (Choose all that apply): None applicable Discharge Plan Admission Admit Date/Time: 03/27/25 13:30 Primary Reason for Your Visit: debility due to R DUNCAN Attending Provider: Farida Zavala Primary Care Provider: Meir Zepeda Instructions Patient Instructions: Caring for Your Incision Additional Instructions / Restrictions: 1. You are doing great and will continue to improve with additional therapy. When the incision is completely healed and there is no discharge you can transition from home health care to [facility].........in the pool with Jenae. Either Dr. Zepeda or Dr. Terry will need to write the order for therapy at [facility] and they will need to specify you need aquatic therapy in the pool. Because of all you joints pains and back pain you will do better in the pool because the water offloads body weight and you can strengthen the muscles without stress the back and joints so much. 2. We have had you on Metformin 750 mg twice a day in the hospital and the blood sugars have been good......BUT, you are on a carb control diet. You will go back to 1,000 mg BID of Metformin when you go home. If you want to try and lose more weight increase lean proteins in your diet and decrease carbohydrate intake. Lean proteins include skinless chicken and turkey, fish, shrimp, tofu. It is OK to have some red meat but, buy the 93% lean meat. Weight watcher's is a healthy diet. There are MANY free foods and lots of recipes on the web site. Do not weigh yourself more than once a week. Try and stick to a low salt diet.......salt makes you retain water this increases weight.....it also increases the BP. The weight watchers otilia will also track your salt intake........stay under 4,000 mg daily. Regular exercise helps with weight loss and keeps you more flexible which helps with chronic joint pains. Strengthening your abdominal muscles definitely helps with back pain. Jenae canhelp you with a routing in the pool to work your abs. YOU CAN DO THIS! 3. I do not know that you need to be on Coumadin chronically. You have had only 2 events of blood clots in your life and both occurred after major surgeries........blood clots after surgery when you are not as active are not uncommon. We call these provoked events. Unprovoked events are when you get blood clots when there is no reason to have a blood clot........no surgeries, notraumatic injuries to the legs, no prolonged immobilization. Provoked events are generally treated with 3-6 months of anticoagulation and then the anticoagulant is stopped. You have never had a clot that was not provoked. some people have a problem with the clotting system and their blood clots more easily than normal. These people have Hypercoagulable disorders and they needchronic anticoagulation to prevent blood clots. There are blood tests that can be done on you to check to see if you have a hypercoagulable disorder. The testcan not be done while you are on Warfarin. You would need to be off Warfarin for a week before the tests can be done. Because you just had surgery and are at increased risk for clots I would continue Warfarin for 2-3 months and then follow up with Dr. Mckenzie.......he can order the tests to see if you have a hypercoagulable disorder. 4. Increasing the Lisinopril dose to 20 mg daily helped with the BP control. 5. I can only prescribe a limited amount of pain medication because I am not your PCP or surgeon. If you are running out of pain medication you will need tocontact, Dr. Zepeda, Dr. Mackey or Dr. Terry. 6. The R leg is going to be swollen for at least another 1-2 months. The best way to control the swelling is to wear a compression stocking. This should be put on as soon as you get out of bed in the morning and do not take it off untilyou get in bed at night. I would plan on wearing this for the next 4-6 weeks. Sometimes after a joint replacement you will always have some increased swelling in the involved leg. The surgery cuts through veins and lymphatic channels and swelling can be chronic. [facility] has some really funky compression socks so you might want to check that out. when you are seated in ca chair elevate your legs. Do not sit for longer than an hour without getting up to take a walk. This will help with the stiffness. 7. Your INR was too high on Sunday at 3.9. We held the Warfarin and will recheck in the AM. I am going to have you take 8 mg every day and I am giving you a lab slip to have a bleeding time done on Sunday.........you can call mefor the results on . 8. It was a pleasure meeting you and [place]. You are welcome back anytime.....hope you don't need us though. If you or [place] have any questions after you leave rehab please do not hesitate to call me. OFFICE: [phone] CELL: [phone] NURSES STATION ON REHAB: [phone] Discharge Orders/Prescriptions Prescriptions: New gabapentin 300 mg Capsule 300 mg PO Q8 Qty: 90 0RF duloxetine 30 mg Capsule,Delayed Release(Dr/Ec) 90 mg PO DAILY Qty: 90 0RF Rx Instructions: 3 capsules daily in the AM sennosides-docusate sodium [Stimulant Laxative Plus] 8.6-50 mg Tablet 2 tab PO BID Qty: 60 0RF tramadol 50 mg Tablet 100 mg PO Q6H PRN PRN (Reason: pain 4-10) 14 Days Qty: 56 0RF Rx Instructions: Do not exceed 400 mg daily warfarin [Jantoven] 4 mg Tablet 8 mg PO DAILY Qty: 60 0RF lisinopril 20 mg tablet 20 mg PO DAILY Qty: 30 0RF Continued calcium carbonate-vitamin D3 [Calcium 600 with Vitamin D3] 600 mg(1,500mg) -500 unit capsule 1 cap PO BID hydroxychloroquine 200 mg tablet 200 mg PO BID trazodone 50 MG tablet 100 mg PO QHS Patient Comments: INSOMINIA multivitamin with folic acid 1 TABLET tablet 1 tab PO DAILY Patient Comments: SUPPLEMENT biotin 10,000 mcg capsule 10,000 mcg PO DAILY Patient Comments: SUPPLEMENT ropinirole 2 mg tablet 2 mg PO QHS (DME) CPAP - Continuous Positive Airway Pressure([facility] INFORMATIONAL USE ONLY) Device See Rx Instructions .ROUTE Rx Instructions: As directed ropinirole 2 mg tablet 2 mg PO 1700 omeprazole 20 mg capsule,delayed release(DR/EC) 20 mg PO DAILY ascorbic acid (vitamin C) [C-1000] 1,000 mg tablet 1 g PO 1200 acetaminophen 500 mg tablet 1,000 mg PO Q8H tizanidine 4 mg tablet 8 mg PO QHS Qty: 60 0RF Rx Instructions: Take 1 to 2 tablets orally nightly. ferrous sulfate 325 MG tablet 325 mg PO 1200 Qty: 90 0RF Rx Instructions: Can stop after 3 months....take with vitamin C to improve absorption Changed metformin 1,000 mg tablet 1,000 mg PO BID Qty: 60 0RF Held methotrexate sodium 2.5 mg tablet 20 mg PO SA Hold Instructions: Do Not take this medication until Dr. Terry tells you itis OK to restart. Discontinued duloxetine [Cymbalta] 60 mg capsule,delayed release(DR/EC) 60 mg PO QAM Qty: 90 1RF duloxetine 30 mg capsule,delayed release(DR/EC) 30 mg PO QPM Qty: 90 1RF tramadol 50 mg Tablet 50 mg PO Q6H PRN (Reason: Pain Score 6-10) Qty: 25 0RF warfarin [Jantoven] 5 mg tablet 10 mg PO SUTUWETHSA enoxaparin [Lovenox] 40 mg/0.4 mL syringe 40 mg subcut DAILY Qty: 4 0RF Rx Instructions: Discontinue when INR therapeutic gabapentin 100 mg capsule 200 mg PO Q8H No Action warfarin 4 mg tablet 8 mg PO MOFR Other Ambulatory Orders: Prothrombin Time w/INR (Routine) Timeframe: [id number] Facility: [facility] - Location: Laboratory Ordered By: Dr. Farida Zavala Referrals / Follow Up: staple removal [Other] - 04/08/25 [facility] [Provider Group] (referral sent, office will call patient to set up appt) Meir Zepeda MD [Primary Care Provider] - 04/17/25 10:30 am Jose Ramon Terry DO [Med Staff - Active Staff] - 05/04/25 10:45 am Gilberto Rasmussen MD [Non-Staff -Ordering Privileges] - 04/14/25 2:40 pm Disposition Disposition (needs filled in before D/C Order can be placed): Home Health Service Charges/Coding Visit Charges Inpatient E&M: 17748 Disch Hosp >30min 04/03/25 1719 <Electronically signed by Farida Zavala DO> Cosigner Signature (if applicable): CC: Dr. Nicholas Mackey DO; Dr. Meir Zepeda MD; Dr. Jose Ramon Terry DO; Dr. Jose Ramon Mckenzie MD; Dr. Farida Zavala DO; Dr. Gilberto Rasmussen MD~ Signed [facility] Work Phone: [phone]) 189-853709-12-2025 Discharge summary Author Farida [facility] Note Date/Time April 03, 2025 4:51pm [facility] Medical Records Department [facility] [place] [address] Instructions for Home/Discharge Instructions 04/03/25 1026 MR#: [id number] Acct: [id number] Name: ELSA BLUE Rep #:[id number] : 1955 69 From: Farida Zavala DO PCP: Dr. Meir Zepeda MD Status:ADM IN Discharge Instructions DC O2, CPAP, BIPAP needs Home O2 Discharge instructions: No Dressing / Incision Discharge Activity: May Not Drive, May Shower and Use Walker Weight Bearing Status: Weight bearing as tolerated (RLE) Keep extremity elevated above heart level: Legs Dressing / Incision Call your doctor if your incision/area has: Continuous Slow Oozing, Sudden Increased Bleeding, Increased Pain/ Swelling, Increased Redness, Foul Smelling Discharge and Swelling at the incision site Call your doctor if you observe: Fever of 101 or Higher, Inability to have a bowel movement, Shortness of breath, Dizziness, Fainting spells, Swelling in theankles, Chest pain, Increased palpitations (irregular heartbeat), Calf discomfort (calf discomfort that is different than the chronic calf pain on the L. ) and Uncontrolled pain Suture Line Care: Avoid Pulling/Pushing and Avoid Pinching/Bending Cleanse incision/area with: Soap & Water and - (You do not need to have a dressing on the incision but, if there is drainage you can just cover it with a dry non stick dressing. It is OK to shower. Do not soak the incision (so no tub baths for now). ) Follow Up Care When: Appointment with Dr. Rasmussen and Dr. Terry are listed later in this document. He will need to make an appointment with Dr. Zepeda within the next 2 weeks. Test Results: Test results from this visit will be discussed in further detail at your follow- up appointment, if applicable. Pending Tests Upon Discharge: none Discharge Plan Admission Admit Date/Time: 03/27/25 13:30 Primary Reason for Your Visit: debility due to R DUNCAN Attending Provider: Farida Zavala Primary Care Provider: Meir Zepeda Instructions Patient Instructions: Caring for Your Incision Additional Instructions / Restrictions: 1. You are doing great and will continue to improve with additional therapy. When the incision is completely healed and there is no discharge you can transition from home health care to [facility].........in the pool with Jenae. Either Dr. Zepeda or Dr. Terry will need to write the order for therapy at [facility] and they will need to specify you need aquatic therapy in the pool. Because of all you joints pains and back pain you will do better in the pool because the water offloads body weight and you can strengthen the muscles without stress the back and joints so much. 2. We have had you on Metformin 750 mg twice a day in the hospital and the blood sugars have been good......BUT, you are on a carb control diet. You will go back to 1,000 mg BID of Metformin when you go home. If you want to try and lose more weight increase lean proteins in your diet and decrease carbohydrate intake. Lean proteins include skinless chicken and turkey, fish, shrimp, tofu. It is OK to have some red meat but, buy the 93% lean meat. Weight watcher's is a healthy diet. There are MANY free foods and lots of recipes on the web site. Do not weigh yourself more than once a week. Try and stick to a low salt diet.......salt makes you retain water this increases weight.....it also increases the BP. The weight watchers otilia will also track your salt intake........stay under 4,000 mg daily. Regular exercise helps with weight loss and keeps you more flexible which helps with chronic joint pains. Strengthening your abdominal muscles definitely helps with back pain. Jenae canhelp you with a routing in the pool to work your abs. YOU CAN DO THIS! 3. I do not know that you need to be on Coumadin chronically. You have had only 2 events of blood clots in your life and both occurred after major surgeries........blood clots after surgery when you are not as active are not uncommon. We call these provoked events. Unprovoked events are when you get blood clots when there is no reason to have a blood clot........no surgeries, notraumatic injuries to the legs, no prolonged immobilization. Provoked events are generally treated with 3-6 months of anticoagulation and then the anticoagulant is stopped. You have never had a clot that was not provoked. some people have a problem with the clotting system and their blood clots more easily than normal. These people have Hypercoagulable disorders and they needchronic anticoagulation to prevent blood clots. There are blood tests that can be done on you to check to see if you have a hypercoagulable disorder. The testcan not be done while you are on Warfarin. You would need to be off Warfarin for a week before the tests can be done. Because you just had surgery and are at increased risk for clots I would continue Warfarin for 2-3 months and then follow up with Dr. Mckenzie.......he can order the tests to see if you have a hypercoagulable disorder. 4. Increasing the Lisinopril dose to 20 mg daily helped with the BP control. 5. I can only prescribe a limited amount of pain medication because I am not your PCP or surgeon. If you are running out of pain medication you will need tocontact, Dr. Zepeda, Dr. Mackey or Dr. Terry. 6. The R leg is going to be swollen for at least another 1-2 months. The best way to control the swelling is to wear a compression stocking. This should be put on as soon as you get out of bed in the morning and do not take it off untilyou get in bed at night. I would plan on wearing this for the next 4-6 weeks. Sometimes after a joint replacement you will always have some increased swelling in the involved leg. The surgery cuts through veins and lymphatic channels and swelling can be chronic. [facility] has some really funky compression socks so you might want to check that out. when you are seated in ca chair elevate your legs. Do not sit for longer than an hour without getting up to take a walk. This will help with the stiffness. 7. Your INR was too high on Sunday at 3.9. We held the Warfarin and will recheck in the AM. I am going to have you take 8 mg every day and I am giving you a lab slip to have a bleeding time done on Sunday.........you can call mefor the results on . 8. It was a pleasure meeting you and [place]. You are welcome back anytime.....hope you don't need us though. If you or [place] have any questions after you leave rehab please do not hesitate to call me. OFFICE: [phone] CELL: [phone] NURSES STATION ON REHAB: [phone] Discharge Orders/Prescriptions Prescriptions: New gabapentin 300 mg Capsule 300 mg PO Q8 Qty: 90 0RF duloxetine 30 mg Capsule,Delayed Release(Dr/Ec) 90 mg PO DAILY Qty: 90 0RF Rx Instructions: 3 capsules daily in the AM sennosides-docusate sodium [Stimulant Laxative Plus] 8.6-50 mg Tablet 2 tab PO BID Qty: 60 0RF tramadol 50 mg Tablet 100 mg PO Q6H PRN PRN (Reason: pain 4-10) 14 Days Qty: 56 0RF Rx Instructions: Do not exceed 400 mg daily warfarin [Jantoven] 4 mg Tablet 8 mg PO DAILY Qty: 60 0RF lisinopril 20 mg tablet 20 mg PO DAILY Qty: 30 0RF Continued calcium carbonate-vitamin D3 [Calcium 600 with Vitamin D3] 600 mg(1,500mg) -500 unit capsule 1 cap PO BID hydroxychloroquine 200 mg tablet 200 mg PO BID trazodone 50 MG tablet 100 mg PO QHS Patient Comments: INSOMINIA multivitamin with folic acid 1 TABLET tablet 1 tab PO DAILY Patient Comments: SUPPLEMENT biotin 10,000 mcg capsule 10,000 mcg PO DAILY Patient Comments: SUPPLEMENT ropinirole 2 mg tablet 2 mg PO QHS (DME) CPAP - Continuous Positive Airway Pressure([facility] INFORMATIONAL USE ONLY) Device See Rx Instructions .ROUTE Rx Instructions: As directed ropinirole 2 mg tablet 2 mg PO 1700 omeprazole 20 mg capsule,delayed release(DR/EC) 20 mg PO DAILY ascorbic acid (vitamin C) [C-1000] 1,000 mg tablet 1 g PO 1200 acetaminophen 500 mg tablet 1,000 mg PO Q8H tizanidine 4 mg tablet 8 mg PO QHS Qty: 60 0RF Rx Instructions: Take 1 to 2 tablets orally nightly. ferrous sulfate 325 MG tablet 325 mg PO 1200 Qty: 90 0RF Rx Instructions: Can stop after 3 months....take with vitamin C to improve absorption Changed metformin 1,000 mg tablet 1,000 mg PO BID Qty: 60 0RF Held methotrexate sodium 2.5 mg tablet 20 mg PO SA Hold Instructions: Do Not take this medication until Dr. Terry tells you itis OK to restart. Discontinued duloxetine [Cymbalta] 60 mg capsule,delayed release(DR/EC) 60 mg PO QAM Qty: 90 1RF duloxetine 30 mg capsule,delayed release(DR/EC) 30 mg PO QPM Qty: 90 1RF tramadol 50 mg Tablet 50 mg PO Q6H PRN (Reason: Pain Score 6-10) Qty: 25 0RF warfarin [Jantoven] 5 mg tablet 10 mg PO SUTUWETHSA enoxaparin [Lovenox] 40 mg/0.4 mL syringe 40 mg subcut DAILY Qty: 4 0RF Rx Instructions: Discontinue when INR therapeutic gabapentin 100 mg capsule 200 mg PO Q8H No Action warfarin 4 mg tablet 8 mg PO MOFR Other Ambulatory Orders: Prothrombin Time w/INR (Routine) Timeframe: [id number] Facility: [facility] - Location: Laboratory Ordered By: Dr. Farida Zavala Referrals / Follow Up: staple removal [Other] - 04/08/25 [facility] [Provider Group] (referral sent, office will call patient to set up appt) Meir Zepeda MD [Primary Care Provider] - 04/17/25 10:30 am Jose Ramon Terry DO [Med Staff - Active Staff] - 05/04/25 10:45 am Gilberto Rasmussen MD [Non-Staff -Ordering Privileges] - 04/14/25 2:40 pm Disposition Disposition (needs filled in before D/C Order can be placed): Home Health Service 04/03/25 1651<Electronically signed by Farida Zavala DO>Farida Zavala DO CC: Dr. Meir Zepeda MD; Dr. Jose Ramon Terry DO; Dr. Narendra Ruffin MD ~ Signed [facility] Work Phone: 1(126) 189-765409-12-2025 [facility]09-11-2025 Progress note Author Farida Zavala [facility] Note Date/Time April 02, 2025 4:28pm [facility] Medical Records Department [address] [place] [address] Progress Note 04/02/25 0817 MR#: [id number] Acct: [id number] Name: ELSA BLUE Rep #:[id number] : 1955 69 From: Farida Zavala DO PCP: Dr. Meir Zepeda MD Status:ADM IN Location: [place] [address] Subjective Subjective Cris was seen on team rounds today. Her [place] was present in the room. All questions were answered to their satisfaction. Afebrile VSS - Maintaining appropriate oxygen saturation on RA Oral intake - FOOD good FLUIDS good The blood sugar record was reviewed. Blood sugars are under excellent control with none greater than 200 and no hypoglycemia. Discussed with nursing - no problems that need addressed Reviewed the THERAPY notes Medication list reviewed. Still having some burning in the R buttocks and groin but, more tolerable and does not want to go up on the Gabapentin. Denies CP, SOB, N/V/Abd pain, dysuria. Sleeping better at night. Feels rested in the AM. Denies lightheadeness. Objective Data Objective Data Vital Signs: Vital Signs Temp Pulse Resp BP Pulse Ox O2 Del Method FiO2 98.3 F 74 18 139/57 H 98 Room Air 96 04/02/25 05:00 04/02/25 05:00 04/02/25 05:00 04/02/25 05:00 04/02/25 08:15 04/02/25 08:15 03/27/25 17:28 Oxygen Delivery Method Room Air Weight: 233 lb 0.458 oz Body Mass Index (BMI) 38.8 Intake & Output: Intake and Output for Last 24 Hours 03/31/25 04/01/25 04/02/25 23:59 23:59 23:59 Intake Total 820 / 820 1500 / 1640 1020 / 1020 Output Total 1100 / 1100 550 / 550 Balance -280 / -280 950 / 1090 1020 / 1020 Lab / Micro Data 03/31/25 07:20 03/28/25 06:48 Labs: Laboratory Results - last 24 hr 04/01/25 21:04: POC Glucose 132 H 04/02/25 06:30: POC Glucose 132 H Radiography Diagnostic Testing: Radiology Impression Venous Doppler Study 03/27/25 14:17 Interpretation Summary Deep veins of the bilateral lower extremities are patent and compressible segmentally. There is no evidence of bilateral lower extremity deep vein thrombosis. The bilateral great saphenous veins appearpatent and compressible segmentally. Ordering Physician: Farida Zavala Referring Physician: Meir Zepeda Performed By: Ludmila Hernandez RVT Social Homelessness:: Sheltered Physical Exam Const alert and no apparent distress General Appearance: cooperative HEENT Mouth: dry mucous membranes Resp normal respiratory effort and clear to auscultation bilaterally Cardio regular rate, regular rhythm and no gallops Cardio Narrative: No ectopy GI normal to inspection, nondistended, normoactive bowel sounds, soft to palpation and non-tender Extremity Extremity Narrative: TEJAS hose are in place. Tenderness of the left calf has not changed and this is chronic and I suspect radicular. General Extremity: Negative for edema Skin Rashes: no rashes Wound Narrative: The right hip incision is intact with no dehiscence. There is a small amount ofserous drainage on the dressing. No sybil-incisional erythema and no increased warmth to touch. I can palpate around the incision without her having pain. Mild swelling now around the incision. Assessment & Plan Assessment/Plan (1) Physical debility: (2) S/P total right hip arthroplasty: (3) Primary osteoarthritis of right hip: (4) Acute blood loss as cause of postoperative anemia: (5) Chronic anticoagulation: (6) DVT (deep venous thrombosis): QUALIFIERS: DVT location: lower extremity Affected thrombotic vein of extremity: unspecified lower extremity proximal vein Chronicity: unspecified Laterality: right Qualified Code(s): I82.4Y1 - Acute embolism and thrombosis of unspecified deep veins of right proximal lower extremity (7) Pulmonary embolism: QUALIFIERS: Pulmonary embolism type: unspecified Chronicity: unspecified Acute cor pulmonale presence: unspecified Qualified Code(s): I26.99- Other pulmonary embolism without acute cor pulmonale (8) Presence of IVC filter: (9) Spinal stenosis of lumbar region with neurogenic claudication: (10) Lumbar radiculopathy: (11) Fibromyalgia: (12) HTN (hypertension): QUALIFIERS: Hypertension type: primary hypertension Qualified Code(s): I10 - Essential (primary) hypertension (13) Diabetes mellitus, type 2: QUALIFIERS: Diabetes mellitus termite treater insulin use: without alf use Diabetes mellitus complication status: with neurologic complications Diabetes mellitus complication detail: with polyneuropathy Qualified Code(s): E11.42 - Type 2 diabetes mellitus with diabetic polyneuropathy (14) Rheumatoid arthritis: QUALIFIERS: Rheumatoid arthritis location: unspecified site Rheumatoid factor presence: without rheumatoid factor Qualified Code(s): M06.00 - Rheumatoid arthritis without rheumatoid factor, unspecified site (15) Class II obesity: (16) STEFFI (obstructive sleep apnea): PLAN: Plan 1. Continue therapy 2. Change the Accu-Cheks to as needed 3. We discussed weight loss and carb control. She has been following weight watchers diet but, admits to overdoing it with carbs. Knows that she needs to increase protein and decrease carbs. HDL is a little low at 41 and the LDL is alittle maria t at 77. Many RF's for CAD. Would like to see the LDL < 70 and the HDL 45 or greater. We discussed increasing exercise to help get the HDL up. Nomedication at this time. she is going to work on diet and exercise and recheck a Lipid panel in 6 months. If the LDL is still > 70 would consider Adding a lipid lowering drug.......had myalgias with Atorvastatin. Did not know the dose. May try Crestor 5 mg........many people with myalgias on Lipitor toleratelow dose Creator. Since the LDL is only mildly elevated could consider Questran. Would like to see HDL 45 or >. If regular exercise does not result in an increase in HDL would consider niacin SA 500 mg at bedtime. 4. She will continue Warfarin ar [place] for 2 months. Then she can follow up with Dr. Mckenzie for a hypercoagulable W/U......needs to be off an anticoagulant for 1 week prior to the blood work being drawn. 5. Planning DC home on Sunday with [facility] for a couple weeks until the incision is completely closed and then transitioning to aquatic therapy at [facility]. 6. Check a PTT/INR in the AM. Charges/Coding Visit Charges Inpatient E&M: 84444 Subs Hosp L2 04/02/25 9651 <Electronically signed by Farida Zavala DO> Farida Zavala DO Cosalexer Signature (if applicable): CC: ~ Signed ADDENDUM by Dr. Farida Zavala DO on 04/02/25 at 1628 Addendum Patient was taking 20 mg of lisinopril at home. Will give an extra 10 mg tonight and continue to monitor blood pressure. 04/02/25 1628 <Electronically signed by Farida santamaria DO> Date _ Farida Zavalaer Signature (if applicable): Date cc: ~* Signed [facility] Work Phone: 1(937) 889-143109-11-2025 Progress note Author Farida Zavala [facility] Note Date/Time April 02, 2025 8:32am [facility] Medical Records Department [address] [place] [address] Progress Note 03/31/25 1414 MR#: [id number] Acct: [id number] Name: ELSA BLUE Rep #:[id number] : 1955 69 From: Farida Zavala DO PCP: Dr. Meir Zepeda MD Status:ADM IN Location: [place] [address] Subjective Subjective Afebrile Vital signs stable The blood sugar record was reviewed and all blood sugars are in the 200s. Fasting was a little on the high side today but she had a lot of of kettle corn last night. She denies waking up with night sweats or nausea. She is c/o pain in the R buttock, R groin, R anterior and lateral thigh and alsohas persistent pain in the Left calf/foot. Tells me that she slept better last night since we are giving the Duloxetine all in the morning now. All lab done this morning was personally reviewed. Triglycerides of 134 and thetotal cholesterol is 145. LDL is 77 and the HDL is 41. INR today is 2.5. She is sleeping better at night since we changed the dosing on the duloxetine. Denies chest pain, shortness of breath, hemoptysis, lightheadedness, nausea/vomiting/heartburn/abdominal pain, dysuria. Objective Data Objective Data Vital Signs: Vital Signs Temp Pulse Resp BP Pulse Ox O2 Del Method FiO2 97.4 F L 78 16 153/71 H 93 Room Air 96 03/31/25 06:00 03/31/25 06:00 03/31/25 06:00 03/31/25 06:00 03/31/25 07:14 03/31/25 07:14 03/27/25 17:28 Oxygen Delivery Method Room Air Weight: 233 lb 0.458 oz Body Mass Index (BMI) 38.8 Intake & Output: Intake and Output for Last 24 Hours 03/29/25 03/30/25 03/31/25 23:59 23:59 23:59 Intake Total 1730 / 1730 2520 / 2520 240 / 240 Output Total 2400 / 2800 1850 / 2050 700 / 700 Balance -670 / -1070 670 / 470 -460 / -460 Lab / Micro Data 03/31/25 07:20 03/28/25 06:48 Labs: Laboratory Results - last 24 hr 03/30/25 16:58: POC Glucose 150 H 03/30/25 21:09: POC Glucose 136 H 03/31/25 06:33: POC Glucose 191 H 03/31/25 07:20: Hgb 9.8 L, Hct 29.3 L, PT 28.0 H, INR 2.5, Triglycerides 134, Cholesterol 145, LDL Cholesterol, Calc 77, VLDL Cholesterol 27, HDL Cholesterol 41, Cholesterol/HDL Ratio 3.52 Social Homelessness:: Sheltered Physical Exam Const alert and no apparent distress Constitutional Narrative: Sitting in the recliner at the bedside. General Appearance: cooperative HEENT Mouth: dry mucous membranes Resp normal respiratory effort and clear to auscultation bilaterally Cardio regular rate, regular rhythm and no gallops Cardio Narrative: No ectopy GI normal to inspection, nondistended, normoactive bowel sounds, soft to palpation and non-tender Extremity Extremity Narrative: TEJAS hose are in place. Tenderness of the left calf has not changed and this is chronic and I suspect radicular. General Extremity: Negative for edema Skin Rashes: no rashes Assessment & Plan Assessment/Plan (1) Physical debility: (2) S/P total right hip arthroplasty: (3) Primary osteoarthritis of right hip: (4) Acute blood loss as cause of postoperative anemia: (5) Chronic anticoagulation: (6) DVT (deep venous thrombosis): QUALIFIERS: DVT location: lower extremity Affected thrombotic vein of extremity: unspecified lower extremity proximal vein Chronicity: unspecified Laterality: right Qualified Code(s): I82.4Y1 - Acute embolism and thrombosis of unspecified deep veins of right proximal lower extremity (7) Pulmonary embolism: QUALIFIERS: Pulmonary embolism type: unspecified Chronicity: unspecified Acute cor pulmonale presence: unspecified Qualified Code(s): I26.99- Other pulmonary embolism without acute cor pulmonale (8) Presence of IVC filter: (9) Spinal stenosis of lumbar region with neurogenic claudication: (10) Lumbar radiculopathy: (11) Fibromyalgia: (12) HTN (hypertension): QUALIFIERS: Hypertension type: primary hypertension Qualified Code(s): I10 - Essential (primary) hypertension (13) Diabetes mellitus, type 2: QUALIFIERS: Diabetes mellitus termite treater insulin use: without alf use Diabetes mellitus complication status: with neurologic complications Diabetes mellitus complication detail: with polyneuropathy Qualified Code(s): E11.42 - Type 2 diabetes mellitus with diabetic polyneuropathy (14) Rheumatoid arthritis: QUALIFIERS: Rheumatoid arthritis location: unspecified site Rheumatoid factor presence: without rheumatoid factor Qualified Code(s): M06.00 - Rheumatoid arthritis without rheumatoid factor, unspecified site (15) Class II obesity: (16) STEFFI (obstructive sleep apnea): PLAN: Plan 1. Continue therapy 2. Increase gabapentin to 300 mg 3 times daily. 3. Recheck PTT/INR on Sunday 4. Blood pressure is a little high and this may be related to discontinuation of hydrochlorothiazide. She was dehydrated at admission with complaints of lightheadedness. Orthostatics were negative. Consider restarting hydrochlorothiazide at 12.5 mg daily. Charges/Coding Visit Charges Inpatient E&M: 70886 Subs Hosp L1 04/02/25 0832 <Electronically signed by Farida Zavala DO> Farida Zavala DO Cosigner Signature (if applicable): CC: ~ Signed [facility] Work Phone: 1(169) 991-127909-08-2025 History and physical note Author Farida Muscogeehina [facility] Note Date/Time March 30, 2025 2:09pm [facility] Medical Records Department [address] [place] [address] Post Admission Physician Beatrice 03/27/25 1700 MR#: [id number] Acct: [id number] Name: ELSA BLUE Rep #:[id number] : 1955 69 From: Farida Zavala DO PCP: Dr. Meir Zepeda MD Status:ADM IN Location: [place] [address] Admission Information Primary Diagnosis:: Debility secondary to right total hip arthroplasty Status Changes from Prescreening?: No changes Identified Actual Problem List:: Falls, Skin Intergrity, Pain, ALteration in Cmfrt, Bowel, Constipation, Mobility Impaired, Self Care Deficit, Fluid Change-Dehydration andAlteration-Leisure Activ. Potential Problem List:: DVT, Bleeding, Infection, UTI, Aspiration, Falls, Skin Integrity and Depression Risk of Complications DVT: LMWH, TEJAS Hose and - (Transitioning to warfarin) Bleeding: Monitor Lab Values, Nursing to Teach Precautions for anti-coagulation therapy., Wound, if applicable, to be assessed every shift. and Stroke patients assessed for lethargy or change in status. Infection: Clinical Staff to Monitor for S/S of infection: and S/S of infection include fever, redness, warmth, etc. Urinary Tract Infection: Monitor for frequency, burning, discomfort, or incontinence. and Nursing will obtain urine sample for urinalysis and C&S when ordered. Aspiration: Clinical staff will monitor for coughing, drooling, congestion., Speech will evaluate swallowing and dsyphasia. and Nursing will monitor patient swallowing during meals. Falls: Patient will be evaluated for Fall Precautions and Patient will be placedon Fall Precautions as indicated per protocol. Skin Breakdown: Nursing will assess skin daily using assessment tool. and Nursing will place on Skin Breakdown Precautions as indicated. Pain: Clinical staff will assess patient's pain level per protocol., Medicationswill be given, if needed, and the pain level reassessed. and Other methods: Massage, distraction, decrease stimulus, etc. used PRN. Plan of Care Patient requires physician specializing in physical medicine and rehab oversightto provide close medical supervision of rehab issues including: Pain Management,Sleep Problems, Bowel and Bladder, Medical and co-morbidity Management, DVT prophylaxis, Rehabilitation Leadership and Coordination of treatment team Patient needs Physical Therapy: For a minimum of 1 hour and At least 5 out of 7 days Patient needs Physical Therapy to improve:: Mobility, Strengthening, Transfers, Stretching, ROM, Endurance, Stairs, Gait and Balance Patient needs Occupational Therapy: For a minimum of 1 hour and At least 5 out of 7 days Patient needs Occupational Therapy to improve ADL's incl.: Eating, Grooming, Bathing, Dressing, Toileting, Toilet transfers, Community Reintegration, Higher functioning activities, Household tasks, Adaptive Equipment, Splinting and Otheractivities as determined Patient requires 24/7 Rehabilitation Nursing for: Pain Issues, Identifying and preventing risk factors, Monitoring and reporting current medical conditions, Assisting with ambulation, transfer, and all ADL's, Teaching patients about disease process and medications, Family teaching, Providing safe environment, Bowel and Bladder Issues, Skin integrity and Medication Management Patient needs Gear Grinder/ Case Management for: Discharge Planning, Arranging Home Equipment or Services and Family Interventions Patient needs Dietary and Nutrition Services for: Adequate Nutrition, Nutritional Supplements and Nutritional Education Goals Goals Patient will remain: free from falls Patient will perform eating at: MOD I level of assist. Patient will perform bed mobility at: MOD I level of assist. Patient will complete transfers from bed to chair at: MOD I level of assist. Patient will ambulate: - (150 feet with least restrictive device at modified) Patient will complete upper body dressing at: MOD I level of assist. Patient will complete lower body dressing at: MOD I level of assist. (Modify using adaptive equipment as needed) Patient will complete toilet transfer at: MOD I level of assist. Patient will complete toileting at: MOD I level of assist. Patient will perform bathing at: MOD I level of assist. (Using adaptive equipment as needed) Patient will perform Tub/Shower transfer at: - (Contact-guard assist) Patient will complete grooming at: MOD I level of assist. Patient will complete home management skills at: MOD I level of assist. Patient will achieve: - (2 steps with a straight cane at supervision) Patient will have pain level of: of 3 or less Patient's skin will: remain intact Patient will receive: adequate nutrition. Discharge Planning Pt Prognosis for Sig. Practical Improv. w/in Reasonable Time: Good Estimated Length of stay (days): 14 Anticipated D/C Destination: Home with Outpt Therapy Was Preadmission Assessment Accurate?: Yes 03/30/25 3246 <Electronically signed by Farida Zavala DO> Cosigner Signature (if applicable): CC: ~ Signed [facility] Work Phone: 1(760) 509-666709-08-2025 Progress note Author Farida Zavala [facility] Note Date/Time March 30, 2025 2:05pm [facility] Medical Records Department [address] [place] [address] Progress Note 03/30/25 0800 MR#: [id number] Acct: [id number] Name: ELSA BLUE Rep #:[id number] : 1955 69 From: Farida Zavala DO PCP: Dr. Meir Zepeda MD Status:ADM IN Location: [place] [address]1 Subjective Subjective Afebrile VSS -blood pressure over the weekend ranged from 105/60 to 143/89. The heart rate is within normal limits. Maintaining appropriate oxygen saturation on RA Oral intake - FOOD good FLUIDS good The blood sugar record was reviewed. All blood sugars are under 200 with no hypoglycemia. Discussed with nursing - no problems that need addressed Reviewed the THERAPY notes Medication list reviewed. Had Tramadol yesterday TID (75mg) and also took 3 doses of Oxycodone 5 mg. INR yesterday was 2.1 and Lovenox was discontinued. All lab done over the weekend was personally reviewed. Hemoglobin is 9.6 and the white blood cell count was normal. The differential was unremarkable. Platelets are within normal limits. ESR was 68 and the CRP is markedly elevated at 186. Sodium was 138 and the potassium was 3.8. BUN is 16 with a creatinine of 0.63 which is stable. Hemoglobin A1c is 6.8. Calcium, phosphorus and magnesium are all within normal limits. LFTs are normal. CRP in the past has been as high as 278 and that was in January 2023. At that sametime the ESR was 36. EM and RA were negative at that time. Anti-CCP antibodies were also negative. She has never had a hypercoagulable W/U at [facility]. ANCA c and p negative in the past. Not sleeping well at night.......tells me that she is getting up frequently to urinate. Denies lightheadedness, chest pain, shortness of breath at rest, cough, nausea/vomiting/abdominal pain, dysuria and change in the chronic L calf pain. She is complaining of dry mouth. Objective Data Objective Data Vital Signs: Vital Signs Temp Pulse Resp BP Pulse Ox O2 Del Method FiO2 97.8 F 78 16 151/64 H 99 Room Air 96 03/30/25 06:00 03/30/25 06:00 03/30/25 06:00 03/30/25 06:00 03/30/25 06:00 03/30/25 06:00 03/27/25 17:28 Oxygen Delivery Method Room Air Weight: 233 lb 0.458 oz Body Mass Index (BMI) 38.8 Intake & Output: Intake and Output for Last 24 Hours 03/28/25 03/29/25 03/30/25 23:59 23:59 23:59 Intake Total 1880 / 1880 1730 / 1730 720 / 720 Output Total 4275 / 4275 2400 / 2800 850 / 850 Balance -2395 / -2395 -670 / -1070 -130 / -130 Lab / Micro Data 03/28/25 06:48 03/28/25 06:48 Labs: Laboratory Results - last 24 hr 03/29/25 08:08: PT 24.3 H, INR 2.1 03/29/25 11:56: POC Glucose 149 H 03/29/25 16:19: POC Glucose 125 H 03/29/25 21:01: POC Glucose 187 H 03/30/25 06:26: POC Glucose 136 H Social Homelessness:: Sheltered Physical Exam Const alert, oriented x3 and no apparent distress Constitutional Narrative: Sitting in the recliner at the bedside. General Appearance: cooperative HEENT Mouth: dry mucous membranes Resp normal respiratory effort and clear to auscultation bilaterally Cardio regular rate, regular rhythm and no gallops Cardio Narrative: No ectopy GI normal to inspection, nondistended, normoactive bowel sounds, soft to palpation and non-tender Extremity Extremity Narrative: TEJAS hose are in place General Extremity: Negative for edema Skin Rashes: no rashes Assessment & Plan Assessment/Plan (1) Physical debility: (2) S/P total right hip arthroplasty: (3) Primary osteoarthritis of right hip: (4) Acute blood loss as cause of postoperative anemia: (5) Chronic anticoagulation: (6) DVT (deep venous thrombosis): QUALIFIERS: DVT location: lower extremity Affected thrombotic vein of extremity: unspecified lower extremity proximal vein Chronicity: unspecified Laterality: right Qualified Code(s): I82.4Y1 - Acute embolism and thrombosis of unspecified deep veins of right proximal lower extremity (7) Pulmonary embolism: QUALIFIERS: Pulmonary embolism type: unspecified Chronicity: unspecified Acute cor pulmonale presence: unspecified Qualified Code(s): I26.99- Other pulmonary embolism without acute cor pulmonale (8) Presence of IVC filter: (9) Spinal stenosis of lumbar region with neurogenic claudication: (10) Lumbar radiculopathy: (11) Fibromyalgia: (12) HTN (hypertension): QUALIFIERS: Hypertension type: primary hypertension Qualified Code(s): I10 - Essential (primary) hypertension (13) Diabetes mellitus, type 2: QUALIFIERS: Diabetes mellitus termite treater insulin use: without termite treater use Diabetes mellitus complication status: with neurologic complications Diabetes mellitus complication detail: with polyneuropathy Qualified Code(s): E11.42 - Type 2 diabetes mellitus with diabetic polyneuropathy (14) Rheumatoid arthritis: QUALIFIERS: Rheumatoid arthritis location: unspecified site Rheumatoid factor presence: without rheumatoid factor Qualified Code(s): M06.00 - Rheumatoid arthritis without rheumatoid factor, unspecified site (15) Class II obesity: (16) STEFFI (obstructive sleep apnea): PLAN: Plan 1. Continue therapy 2. Increase tramadol to 100 mg 3 times daily and continue as needed oxycodone 3. Increase lisinopril to 10 mg daily. 4. Change the dosing of the duloxetine to 90 mg every morning rather than 60 inthe morning and 30 at at bedtime. 5. Increase metformin to 750 twice daily 6. When she is back on methotrexate would recommend MTX level be drawn.......with the hx of gastric bypass she may not be absorbing methotrexate. 7. Check a lipid panel in the AM. The last LDL we have on record was from it was 118. With history of diabetes it should be 70 or less. 8. Continue warfarin because she has had 2 prior VTE events and both were aftersurgeries. Will recommend that she follow-up with Dr. Mckenzie in the future for a hypercoagulable workup Charges/Coding Visit Charges Inpatient E&M: 33424 Subs Hosp L1 03/30/25 1405 <Electronically signed by Farida Zavala DO> Farida Reyes Signature (if applicable): CC: ~ Signed [facility] Work Phone: 1(338) 101-107409-08-2025 [facility]09-05-2025 History and physical note Author Farida Zavala [facility] Note Date/Time March 27, 2025 4:59pm [facility] Medical Records Department [address] [place] [address] History & Physical Exam 03/27/25 1453 MR#: [id number] Acct: [id number] Name: ELSA BLUE Rep #:[id number] : 1955 69 From: Farida Kamilla Sally PCP: Dr. Meir Zepeda MD Status:ADM IN Location: [address] General General Date of Admission: 03/27/25 Date of Service: 03/27/25 Chief Complaint: debility due to R DUNCAN HPI Narrative ELSA BLUE, is a 69 YO F with a PMH of DM II, RA (RF and CCP negative in the past), fibromyalgia, chronic low back pain with radicular pain, HTN, HLD, tobacco dependence in remission, DVT/PE (both were after surgeries when she was sedentary), chronic anticoagulation with warfarin, RLS, Anxiety/depression, STEFFI (compliant with CPAP....follows with Dr. Pereyra), Hx ofiron deficiency, peripheral neuropathy, nephrolithiasis, glaucoma, history of a gastric ulcer, GERD, history of [place]-en-Y gastric bypass, history of an IVC filter, small vessel cerebrovascular disease, right frontal convexity meningiomafound on MRI, IgG monoclonal protein (lambda type) in the past (follows with ), remote lacunar infarcts, cervical foraminal stenosis/spinal stenosis, lumbar canal stenosis/foraminal narrowing, positive atypical p-ANCA, diverticulosis, fatty infiltration of the liver, adrenal nodules/adenomas, multinodular goiter and morbid obesity who underwent a R DUNCAN on 03/24/[address] Terry. Post op course was remarkable for confusion (related to Oxycodone) andhypotension. She was transferred to the acute inpt rehab unit at [facility] on 03/27/25 for 3 hours of therapy daily to restore function/independence at or near her level prior to the DUNCAN. Pt tells me that she has been on Warfarin for many years. She has had 2 VTE events in the past (in 2006 after [place]-en-Y gastric bypass and in 2014 after panniculectomy )....... PE and DVT R upper thigh/groin. Both events occurred after surgery. She denies ever being told she has a hypercoagulable disorder. She has an IVC filter. INR's in the EMR since October of 2024 have all been WNL? She tells me that Dr. Zepeda has been managing the AC. If both events were provoked why is she still on anticoagulation? Will get records from Dr. Zepeda. [facility] Medical History (Updated 03/27/25 @ 16:[address] Farida Zavala, DO) STEFFI (obstructive sleep apnea) Diabetes mellitus, type 2 Physical debility Diverticulosis Presence of IVC filter Chronic anticoagulation Iron deficiency Class II obesity Ambulates with cane Fatty liver Restless legs Syncope Dietary restriction Chronic constipation Gastric reflux History of pain when walking History of GI bleed History of pneumonia Fibromyalgia Rheumatoid arthritis Post-menopausal Wears glasses Depression Anemia Pulmonary embolism DVT (deep venous thrombosis) CPAP (continuous positive airway pressure) dependence Former smoker Shortness of breath on exertion Leg cramps History of edema History of stress test (~04/06/20) Hypoxia History of iron deficiency Claustrophobia Mild cognitive impairment Peripheral vestibulopathy Encounter for screening for COVID-19 Cerebrovascular small vessel disease Cerebral convexity meningioma Neuropathy High cholesterol Glaucoma Cervical radiculitis HTN (hypertension) Renal calculus, bilateral Home Medications ?Medication ?Instructions ?Recorded ?Last Taken ?Type ferrous sulfate 325 mg (65 mg 325 mg PO BID SUPPLEMENT 02/11/14 03/23/25 History iron) tablet multivitamin with folic acid 400 1 tab PO DAILY SUPPLE MENT 02/11/14 03/23/25 History mcg tablet trazodone 50 mg tablet 100 mg PO QHS SLEEP 02/11/14 03/23/25 History biotin 10,000 mcg capsule 10,000 mcg PO DAILY HAIR LOS S 05/30/21 03/23/25 History calcium 600 mg (as 1 cap PO BID SUPPLEMENT 03/1203/23/25 History carbonate)-vitamin D3 12.5 mcg (500 unit) capsule (Calcium with Vit D3) tramadol 50 mg tablet 50 mg PO Q6H PRN Pain Score 6-10 01/25/23 Unknown Rx #25 tabs hydroxychloroquine 200 mg tablet 200 mg PO BID OA 12/2203/24/25 History metformin 1,000 mg tablet 1,000 mg PO BID DIABETES 03/23/25 History warfarin 5 mg tablet (Jantoven) 10 mg PO BIPINUWSTEVEN BL OOD THINNER 10/06/24 03/19/25 History duloxetine 30 mg capsule,delayed 30 mg PO QPM DEPRESSI ON #90 caps 01/29/25 03/23/25 Rx release duloxetine 60 mg capsule,delayed 60 mg PO QAM DEPRESSI ON #90 caps 01/29/25 03/24/25 Rx release (Cymbalta) methotrexate sodium 2.5 mg tablet 20 mg PO SA OA 02/2502/21/25 History Held on 03/27/25. Instructions: Hold until after 2 weeks postop visit CPAP - Continuous Positive Airway 03/10/25 Unknown Hi story Pressure([facility] INFORMATIONAL USE ONLY) omeprazole 20 mg capsule,delayed 20 mg PO DAILY GERD 0 03/10/25 03/24/25 History release ropinirole 2 mg tablet 2 mg PO 1700 RLS 03/10/25 History ropinirole 2 mg tablet 2 mg PO QHS RLS 03/10/2508/16 History tizanidine 4 mg tablet 8 mg PO QHS muscle spasticit y/leg 03/10/25 03/23/25 History restlessness warfarin 4 mg tablet 8 mg PO MOFR BLOOD THINNER 0 03/10/25 03/19/25 History acetaminophen 500 mg tablet 1,000 mg PO Q8H pain 03/27 Unknown History ascorbic acid (vitamin C) 1,000 mg 1 g PO 1200 supplem ent 03/27/25 Unknown History tablet (C-1000) enoxaparin 40 mg/0.4 mL 40 mg (0.4 mL) subcut DAILY #4 mL 03/27/25 Unknown Rx subcutaneous syringe (Lovenox) gabapentin 100 mg capsule 200 mg PO Q8H neuropathy 12/14 Unknown History Allergy/AdvReac Type Severity Reaction Status Date / Time amoxicillin Allergy Mild rash Verified 03/24/25 06:17 atorvastatin AdvReac Mild myalgiias Verified 03/24/25 06:17 levofloxacin (From Levaquin) AdvReac Unknown Nausea Verified 03/24/25 06:17 Family History Mother Heart disease Hypertension Father Heart disease CVA (cerebral vascular accident) Brother Cancer Surgical History (Updated 03/27/25 @ 15:[address] Farida Zavala DO) Hx of superior vena cava filter placement History of cystoscopy Status post biopsy of thyroid gland (~08/2019) History of colonoscopy (~2014) History of dilation and curettage History of carpal tunnel release of both wrists Status post panniculectomy History of [place]-en-Y gastric bypass History of umbilical hernia repair Social History (Updated 03/27/25 @ 15:[address] Farida Zavala DO) household members: spouse housing: house number of children: 1 Smoking Status: Former smoker Tobacco: How many years used: 40 Electronic Cigarette Use: not used how long ago did patient quit smoking: about a year and half ago second hand exposure: No alcohol intake: current alcohol intake frequency: holidays/special occasions only substance use type: does not use what type of physical activity do you participate in: none do you feel safe at home: Yes Homelessness:: Sheltered Prior Cardiac Testing/Procedures Prior Cardiac Testing/Procedures: Stress Test (March 2020 negative for ischemia, gated nuclear ejection fraction 78%) ROS Constitutional Constitutional: Reports change in weight, fatigue, weakness and other Details: She had to lose weight prior to surgery for total hip replacement. ; Denies anorexia, chills, fever(s) or night sweats Eyes Eyes: Denies blurry vision, change in vision, eye pain or loss of vision ENT HEENT: Denies abnormal hearing, dysphagia, headache(s), hearing loss, nasal congestion or sore throat Cardiovascular Cardiovascular: Reports dyspnea on exertion and lightheadedness; Denies chest pain, edema, orthopnea, palpitations, paroxysmal nocturnal dyspnea or syncope Respiratory/Chest Respiratory/Chest: Reports shortness of breath with exertion; Denies cough, dyspnea, hemoptysis, shortness of breath at rest or wheezing Gastrointestinal Gastrointestinal: Reports constipation; Denies abdominal pain, diarrhea, dyspepsia, heartburn, hematemesis, hematochezia, nausea or vomiting Genitourinary Genitourinary: Denies dysuria, hematuria, nocturia, urinary frequency, urinary hesitancy, urinary incontinence or urinary urgency Musculoskeletal Musculoskeletal: Reports back pain, difficulty walking, joint pain, numbness, radiating pain into limb and tingling; Denies joint swelling or neck pain Integumentary Integumentary: Reports alopecia; Denies jaundice or rash Neurologic Neurologic: Reports confusion, dizziness, paresthesias, radicular pain, restlesslegs and other Details: Confusion was due t Oxycodone recently ; Denies disequilibrium, focal weakness, headache(s), seizures or tremor(s) Psychiatric Psychiatric: Reports anxiety and depression; Denies homicidal ideation, mood swings, panic attacks, suicidal ideation or visual hallucinations Endocrine Endocrinology: Denies change in body appearance, polydipsia or polyuria Hematologic/Lymphatic Hematologic/Lymphatic: Reports easy bleeding and easy bruising; Denies lymphadenopathy Allergic/Immunologic Allergic/Immunologic: Reports rhinitis; Denies eczemia or asthma Physical Exam Const alert, oriented x3 and no apparent distress General Appearance: cooperative and well developed HEENT normocephalic, head/scalp atraumatic and hearing grossly normal bilaterally HEENT Narrative: Mucous membranes are very dry Eyes PERRL, EOMs intact bilaterally, conjunctivae normal and no scleral icterus Eyes Narrative: No discharge from the eyes General Eye: normal appearance of both eyes Neck supple, no JVD and no carotid bruits Neck Narrative: Brisk carotid upstroke with good pulse volume. Chest Chest: symmetrical chest wall rise Resp normal respiratory effort and clear to auscultation bilaterally Resp Narrative: Breath sounds are mildly diminished which may be due to body habitus. No wheezing and no crackles. Not tachypneic. Effort and Inspection: able to speak in complete sentences Cardio regular rhythm, no murmurs, no rub and no gallops Cardio Narrative: Resting heart rate is in the 90s. No ectopy GI normal to inspection, nondistended, normoactive bowel sounds, soft to palpation and non-tender GI Narrative: Bowel sounds are very active but not hyperactive. No guarding with palpation. Bladder / Kidney Exam: No catheter in place Back/Spine no CVA tenderness Extremity no clubbing, cyanosis or edema Extremity Narrative: She has pain with compression of the left calf and with dorsiflexion. Has some pain in the R thigh and in the R buttock and describes it as burning. She has numbness of her feet in a stocking glove distribution. The pain in the left foot and calf is long standing. Both feet are warm to the touch. Pain in the Lcalf increases with weight bearing and prolonged standing and goes away when shesits. Peripheral Pulses: Yes pulses 2+ throughout Skin no jaundice General Skin Exam: no breakdown Rashes: no rashes Neuro oriented x3, CN's II-XII intact bilaterally and moves all extremities Psych mental status grossly normal, thought process normal, cooperative, affect normal, speech normal, denies hallucinations, denies homicidal ideation and denies suicidal ideation Appearance: appropriate and well kempt Attitude: calm Activity / Motor Behavior: appropriate eye contact Assessment & Plan Assessment/Plan (1) Physical debility: (2) S/P total right hip arthroplasty: (3) Primary osteoarthritis of right hip: (4) Acute blood loss as cause of postoperative anemia: (5) Chronic anticoagulation: (6) DVT (deep venous thrombosis): QUALIFIERS: DVT location: lower extremity Affected thrombotic vein of extremity: unspecified lower extremity proximal vein Chronicity: unspecified Laterality: right Qualified Code(s): I82.4Y1 - Acute embolism and thrombosis of unspecified deep veins of right proximal lower extremity PLAN: 2014 following panniculectomy (7) Pulmonary embolism: QUALIFIERS: Pulmonary embolism type: unspecified Chronicity: unspecified Acute cor pulmonale presence: unspecified Qualified Code(s): I26.99 - Other pulmonary embolism without acute cor pulmonale PLAN: 2006 following [place]-en-Y gastric bypass (8) Presence of IVC filter: (9) Spinal stenosis of lumbar region with neurogenic claudication: PLAN: Follows with Dr. Johnson (10) Lumbar radiculopathy: (11) Fibromyalgia: (12) HTN (hypertension): QUALIFIERS: Hypertension type: primary hypertension Qualified Code(s): I10 - Essential (primary) hypertension (13) Diabetes mellitus, type 2: QUALIFIERS: Diabetes mellitus termite treater insulin use: without termite treater use Diabetes mellitus complication status: with neurologic complications Diabetes mellitus complication detail: with polyneuropathy Qualified Code(s): E11.42 - Type 2 diabetes mellitus with diabetic polyneuropathy (14) Rheumatoid arthritis: QUALIFIERS: Rheumatoid arthritis location: unspecified site Rheumatoid factor presence: without rheumatoid factor Qualified Code(s): M06.00- Rheumatoid arthritis without rheumatoid factor, unspecified site (15) Class II obesity: (16) Fatty liver: (17) STEFFI (obstructive sleep apnea): (18) COPD (chronic obstructive pulmonary disease): QUALIFIERS: COPD type: unspecified COPD Qualified Code(s): J44.9 - Chronic obstructive pulmonary disease, unspecified (19) Elevated serum immunoglobulin free light chain level: PLAN: Follows with Dr. Mckenzie. (20) Restless legs syndrome: PLAN: Follows with Dr. Rasmussen. (21) Polyneuropathy: PLAN: Plan PLAN PT for gait stability OT for ADL's Analgesics as needed Bowel protocol Fall precautions Assess for Anxiety/Depression GI prophylaxis -pantoprazole DVT prophylaxis with currently on Lovenox 40 mg subcu daily. Has been restartedon Warfarin but, I am unclear why she is even on chronic anticoagulation. She has had 2 events in the past, 2006 and 2014, and both were post-op..... 1 after [place]-en-Y gastric bypass and the other after panniculectomy Follow up with Dr. Terry, PCP, rheumatology, Dr. Mckenzie, Dr. Rasmussen, Pain management following DC from [facility] AM lab including CMP, CBC, Mag, HGBA1C, ESR, CRP and Phos 80 Minutes spent reviewing past diagnostic tests, lab results, vital sign trends, medical history, medications, all additional paperwork sent by the previous hospital, and ordering medications, examining the the patient and completing documentation. Charges/Coding Visit Charges Inpatient E&M: 32136 Init Hosp L3 03/27/25 1659 <Electronically signed by Farida Zavala DO> Cosigner Signature (if applicable): CC: Dr. Meir Zepeda MD; Dr. Jose Ramon Terry DO; Dr. Jose Ramon Mckenzie MD; Dr. Farida Zavala DO; Dr. Gilberto Rasmussen MD; Dr. Gerard Pereyra MD~ Signed [facility] Work Phone: [phone]) 931-285309-05-2025 [facility]09-05-2025 Consult note [facility] Medical Records Department [address] [place] [address] Anesthesia Postop Eval II 03/24/25 1436 MR#: [id number] Acct: [id number] Name: ELSA BLUE Rep #:[id number] : 1955 69 From: Jasmin Diaz CRNA PCP: Dr. Meir Zepeda MD Status:ADM IN Y Race: C Location: MS3 MS313 -1 Anesthesia Postop Eval I Sum Postop Eval Completion status Anesthesia document: Postop Eval 1 completed: Yes Anesthesia Postop Eval I Summary Anesthesia Postop Eval I Summary: Anesthesia Postop Eval I: Assessment Summary 3 Airway patent Yes 03/24/25 10:18 PLUNGER SHOVEL OPERATOR.[email or web address] Spontaneous unlabored Yes 03/24/25 10:18 PLUNGER SHOVEL OPERATOR.TNES respirations Mental status nausea No 03/24/25 10:18 PLUNGER SHOVEL OPERATOR.TNES Vomiting No 03/24/25 10:18 PLUNGER SHOVEL OPERATOR.TNES Anesthesia Postop Eval I: Fluid Summary Crystalloid volume administer 1,600 03/24/25 10:18 PLUNGER SHOVEL OPERATOR.TNES (ml) Colloids volume administered ( ml) Blood Product volume administered (ml) Total IV fluid infused 1,600 03/24/25 10:18 PLUNGER SHOVEL OPERATOR.TNES Anesthesia Postop Eval I: Summary Notes Anesthesia Complication No 03/24/25 10:18 PLUNGER SHOVEL OPERATOR.TNES Anesthesia Complication Comment: Post-operative progress note Anesthesia: Postop Eval II Evaluation Mental status: Awake Pain Level: 4 nausea: No Vomiting: No 03/24/25 1436 a PLUNGER SHOVEL OPERATOR> Date _ Jasmin Diaz PLUNGER SHOVEL OPERATOR Cosigner Signature: Date CC: ~ Signed [facility]09-05-2025 Consult note [facility] Medical Records Department [address] [place] [address] Counseling Note - Pharmacy 03/27/25 1030 MR#: [id number] Acct: [id number] Name: ELSA BLUE Rep #:[id number] : 1955 69 From: Adele Castellano PCP: Dr. Meir Zepeda MD Status:ADM IN Location: [place] [address] Pharmacy [place] Med Reconciliation Pharmacy Service has performed discharge medication reconciliation for this patient. The patient's discharge medication list was reviewed for discrepancies and discrepancies were resolved. Medications at Discharge Home Medications ferrous sulfate 325 mg (65 mg iron) tablet 325 mg PO BID SUPPLEMENT 02/11/14 multivitamin with folic acid 400 mcg tablet 1 tab PO DAILY SUPPLEMENT 02/11/14 trazodone 50 mg tablet 100 mg PO QHS SLEEP 02/11/14 biotin 10,000 mcg capsule 10,000 mcg PO DAILY HAIR LOSS 05/30/21 calcium 600 mg (as carbonate)-vitamin D3 12.5 mcg (500 unit) capsule (Calcium with Vit D3) 1 cap POBID SUPPLEMENT 05/30/21 tramadol 50 mg tablet 50 mg PO Q6H PRN Pain Score 6-10 #25 tabs 01/25/23 hydroxychloroquine 200 mg tablet 200 mg PO BID OA 01/18/24 gabapentin 300 mg capsule 300 mg PO BID PAIN 10/06/24 lisinopril 20 mg-hydrochlorothiazide 12.5 mg tablet 1 tab PO QDAY BP 10/06/24 metformin 1,000 mg tablet 1,000 mg PO BID DIABETES 10/06/24 warfarin 5 mg tablet (Jantoven) 10 mg PO SUTUWETHSA BLOOD THINNER 10/06/24 duloxetine 30 mg capsule,delayed release 30 mg PO QPM DEPRESSION #90 caps 01/29/25 duloxetine 60 mg capsule,delayed release (Cymbalta) 60 mg PO QAM DEPRESSION #90 caps 01/29/25 meclizine 25 mg tablet 25 mg PO BID PRN dizziness #180 tabs 01/30/25 methotrexate sodium 2.5 mg tablet 20 mg PO SA OA 02/25/25 Held on 03/27/25. Instructions: Hold until after 2 weeks postop visit CPAP - Continuous Positive Airway Pressure([facility] INFORMATIONAL USE ONLY) 03/10/25 omeprazole 20 mg capsule,delayed release 20 mg PO DAILY GERD 03/10/25 ropinirole 2 mg tablet 2 mg PO 1700 RLS 03/10/25 ropinirole 2 mg tablet 2 mg PO QHS RLS 03/10/25 tizanidine 4 mg tablet 8 mg PO QHS muscle spasticity/leg restlessness 03/10/25 warfarin 4 mg tablet 8 mg PO MOFR BLOOD THINNER 03/10/25 acetaminophen 500 mg tablet 1,000 mg (2 x 500 mg) PO Q6H #90 tabs 03/27/25 enoxaparin 40 mg/0.4 mL subcutaneous syringe (Lovenox) 40 mg (0.4 mL) subcut DAILY #4 mL 03/27/25 oxycodone 5 mg tablet 5 - 10 mg (1 - 2 x 5 mg) PO Q4H PRN pain 7 days #60 tabs 03/27/25 03/27/25 1030 Date _ Adele Fragaigner Signature (if applicable): Date CC: ~ Signed [facility]09-05-2025 Progress note Author Chino Masters [facility] Note Date/Time March 27, 2025 10:31am [facility] Medical Records Department [address] [place] [address] Progress Note - Hospitalist 03/27/25 1029 MR#: [id number] Acct: [id number] Name: ELSA BLUE Rep #:[id number] 0 : 1955 69 From: Chino Masters DO PCP: Dr. Meir Zepeda MD Status:ADM IN Location: [place] [address] Subjective Subjective Patient was seen and examined today, her blood pressure was 143/60, the rehab unit has agreed to take her today Objective Data Objective Data Vital Signs: Vital Signs Temp Pulse Resp BP Pulse Ox O2 Del Method O2 Flow Rate 98.4 F 79 16 143/60 H 98 Room Air 2 03/27/25 08:00 03/27/25 08:00 03/27/25 08:00 03/27/25 08:00 03/27/25 08:00 03/27/25 09:00 03/27/25 03:00 FiO2 97 03/27/25 03:00 Oxygen Flow Rate (L/min) 2 Oxygen Delivery Method Room Air Weight: 102.5 kg Body Mass Index (BMI) 37.5 Intake & Output: Intake and Output for Last 24 Hours 03/25/25 03/26/25 03/27/25 23:59 23:59 23:59 Intake Total 1719 550 / 550 Balance 1719 550 / 550 Lab / Micro Data 03/25/25 06:39 03/25/25 06:39 Labs: Laboratory Results - last 24 hr 03/26/25 11:05: POC Glucose 155 H 03/26/25 16:12: POC Glucose 177 H 03/26/25 22:38: POC Glucose 166 H 03/27/25 06:35: PT 18.9 H, INR 1.6 03/27/25 07:02: POC Glucose 172 H Micro: Microbiology 03/16/25 08:07 Swab (Method) Nasal Screen MRSA/MSSA - Final Physical Exam Narrative alert, oriented x3 and no apparent distress General Appearance: cooperative, well kempt and well developed Orientation / Consciousness: awake, oriented to person, oriented to place and oriented to time HEENT normocephalic, head/scalp atraumatic and moist oral mucous membranes Eyes PERRL, EOMs intact bilaterally and conjunctivae normal Neck supple, no JVD, thyroid normal and no carotid bruits General: trachea midline Resp normal respiratory effort, no retractions, no use of accessory muscles and clearto auscultation bilaterally Auscultation: Negative for rales, rhonchi or wheezes Cardio regular rate, regular rhythm, S1 normal heart sound, S2 normal heart sound, no murmurs, no rub and no gallops GI normal to inspection, nondistended, normoactive bowel sounds, soft to palpation,non-tender and non-distended Extremity no clubbing, cyanosis or edema Skin no rashes or lesions noted General Skin Exam: no breakdown Neuro oriented x3, CN's II-XII intact bilaterally, moves all extremities, no focal motor deficits and no sensory deficits noted Sensorium / Orientation: awake and alert Speech: speech normal Psych affect normal Assessment & Plan Assessment/Plan (1) S/P total right hip arthroplasty: PLAN: Plan 1. 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-patient will resume her warfarin, INR will be rechecked tomorrow, patient is currently also on Lovenox until her INR becomes therapeutic, INR today was 1.6, she was given extra warfarin this morning #5 rheumatoid arthritis-complicates care, management, recovery, and prognosis #6 degenerative disc disease of the lumbar spine with lumbar radiculopathy- patient is on gabapentin #7 essential hypertension-due to hypotension yesterday, her blood pressure medication was stopped, her blood pressure will need to be monitored in the rehab unit #8 status post right hip replacement postop day 3 -PT and OT will work with patient, patient will be transferred to the rehab unit today for further inpatient rehab services Total clinical time spent by myself addressing the patient's medical issues, reviewing all of her data, and collaborating with patient's care team: 35-minute Charges/Coding Visit Charges Inpatient E&M: 17644 Subs Hosp L2 03/27/25 1031 <Electronically signed by Chino Masters DO> Cosigner Signature (if applicable): CC: ~ Signed [facility] Work Phone: 1(441) 436-627809-05-2025 Consult note Author Adele Castellano [facility] Note Date/Time March 27, 2025 1:23pm [facility] Medical Records Department [address] [place] [address] Counseling Note - Pharmacy 03/27/25 1030 MR#: [id number] Acct: [id number] Name: ELSA BLUE Rep #:[id number] : 1955 69 From: Adele Castellano PCP: Dr. Meir Zepeda MD Status:ADM IN Location: [place] [id number] Pharm[facility] [place] Med Reconciliation Pharmacy Service has performed discharge medication reconciliation for this patient. The patient's discharge medication list was reviewed for discrepancies and discrepancies were resolved. Medications at Discharge Home Medications ferrous sulfate 325 mg (65 mg iron) tablet 325 mg PO BID SUPPLEMENT 02/11/14 multivitamin with folic acid 400 mcg tablet 1 tab PO DAILY SUPPLEMENT 02/11/14 trazodone 50 mg tablet 100 mg PO QHS SLEEP 02/11/14 biotin 10,000 mcg capsule 10,000 mcg PO DAILY HAIR LOSS 05/30/21 calcium 600 mg (as carbonate)-vitamin D3 12.5 mcg (500 unit) capsule (Calcium with Vit D3) 1 cap PO BID SUPPLEMENT 05/30/21 tramadol 50 mg tablet 50 mg PO Q6H PRN Pain Score 6-10 #25 tabs 01/25/23 hydroxychloroquine 200 mg tablet 200 mg PO BID OA 01/18/24 gabapentin 300 mg capsule 300 mg PO BID PAIN 10/06/24 lisinopril 20 mg-hydrochlorothiazide 12.5 mg tablet 1 tab PO QDAY BP 10/06/24 metformin 1,000 mg tablet 1,000 mg PO BID DIABETES 10/06/24 warfarin 5 mg tablet (Jantoven) 10 mg PO SUTUWETHSA BLOOD THINNER 10/06/24 duloxetine 30 mg capsule,delayed release 30 mg PO QPM DEPRESSION #90 caps 01/29/25 duloxetine 60 mg capsule,delayed release (Cymbalta) 60 mg PO QAM DEPRESSION #90 caps 01/29/25 meclizine 25 mg tablet 25 mg PO BID PRN dizziness #180 tabs 01/30/25 methotrexate sodium 2.5 mg tablet 20 mg PO SA OA 02/25/25 Held on 03/27/25. Instructions: Hold until after 2 weeks postop visit CPAP - Continuous Positive Airway Pressure([facility] INFORMATIONAL USE ONLY) 03/10/25 omeprazole 20 mg capsule,delayed release 20 mg PO DAILY GERD 03/10/25 ropinirole 2 mg tablet 2 mg PO 1700 RLS 03/10/25 ropinirole 2 mg tablet 2 mg PO QHS RLS 03/10/25 tizanidine 4 mg tablet 8 mg PO QHS muscle spasticity/leg restlessness 03/10/25 warfarin 4 mg tablet 8 mg PO MOFR BLOOD THINNER 03/10/25 acetaminophen 500 mg tablet 1,000 mg (2 x 500 mg) PO Q6H #90 tabs 03/27/25 enoxaparin 40 mg/0.4 mL subcutaneous syringe (Lovenox) 40 mg (0.4 mL) subcut DAILY #4 mL 03/27/25 oxycodone 5 mg tablet 5 - 10 mg (1 - 2 x 5 mg) PO Q4H PRN pain 7 days #60 tabs 03/27/25 03/27/25 1030 <Electronically signed by Adele Castellano> Date _ Adele Steward Signature (if applicable): Date CC: ~ Signed [facility] Work Phone: [phone]) 306-790409-05-2025 Discharge summary Author Chino [facility] Note Date/Time March 27, 2025 10:28am [facility] Medical Records Department [address] [place] [address] Transfer to [facility] MR#: [id number] Acct: [id number] Name: ELSA BLUE Rep #:[id number] : 1955 69 From: Chino Masters DO PCP: Dr. Meir Zepeda MD Status:ADM IN Certification of patient admission REQUIRED AT TIME OF ADMISSION. I CERTIFY THAT POST-HOSPITAL ECF SERVICES ARE REQUIRED TO BE GIVEN ON AN IN-PATIENT BASIS BECAUSE OF THE ABOVE NAMED PATIENT'S NEED FOR CARE HOME CARE ON A CONTINUING BASIS FOR THE CONDITION(S) FOR WHICH HE/SHE WAS RECEIVING IN-PATIENT HOSPITAL SERVICES PRIOR TO HIS/HER TRANSFER TO THE [facility]. 03/27/25 1028<Electronically signed by Chino Masters DO> Diet Diet Order/Speech Therapy: INPATIENT Hospital Diet / Speech Therapy Order(s) 03/24/25 14:50 Diet: Regular - General Routine Orders/Code Status Routine Lab Work: INR (Daily starting 03/28/25 x 3 days, discontinue Lovenox when INR above 2) Code Status: Full Code DC O2, CPAP, BIPAP needs Home O2 Discharge instructions: No Wound(s) rt hip: Wound Type: Surgical Incision RLQ: Wound Type: Surgical Incision Therapies Weight Bearing: Weight bearing as tolerated Physical Therapy: Eval and Treat Occupational Therapy: Eval and Treat Problem/Diagnosis (1) S/P total right hip arthroplasty: Status: Acute Code(s): Z96.641 - Presence of right artificial hip joint Plan 1. 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-patient will resume her warfarin, INR will be rechecked tomorrow, patient is currently also on Lovenox until her INR becomes therapeutic, INR today was 1.6, she was given extra warfarin this morning #5 rheumatoid arthritis-complicates care, management, recovery, and prognosis #6 degenerative disc disease of the lumbar spine with lumbar radiculopathy- patient is on gabapentin #7 essential hypertension-due to hypotension yesterday, her blood pressure medication was stopped, her blood pressure will need to be monitored in the rehab unit #8 status post right hip replacement postop day 3 -PT and OT will work with patient, she states her plan is to go to a alf facility for short-term rehab services. Total clinical time spent by myself addressing the patient's medical issues, reviewing all of her data, and collaborating with patient's care team: 35-minute Allergies/Procedures Done in Hospital Allergies amoxicillin Allergy (Mild, Verified 03/24/25 06:17) rash atorvastatin Adverse Reaction (Mild, Verified 03/24/25 06:17) myalgiias muscle pain levofloxacin (From Levaquin) Adverse Reaction (Unknown, Verified 03/24/25 06:17) Nausea Procedures: - (CT-guided MAKOplasty assisted right total hip arthroplasty- 03/24/2025) Type of Care/Length of Stay Estimated LOS: Convalescent Care Less Than 30 days Type of Care Needed: Acute Rehab Rehab Potential: Good Prognosis: Good Additional Orders/Day of Discharge H&P will serve as current which was dated: 03/24/25 Day of Discharge: 03/27/25 Follow Up Care Please Follow Up With: Jose Ramon Terry DO When: 2 weeks Discharge Plan Admission Admit Date/Time: 03/24/25 10:28 Primary Reason for Your Visit: Right total hip arthroplasty Attending Provider: Jose Ramon Terry Primary Care Provider: Meir Zepeda Consulting Providers: Juarez Muñoz; Chino Masters Instructions Additional Instructions / Restrictions: Do not shower for 1 week. May Begin daily showering with warm water antibacterial soap postop day 7 and then daily. Leave the dressing on for 7day postoperatively then remove prior to first shower and change dressing daily after this until no drainage for 2 consecutive days then may leave open to air. Do not submerge for 3 weeks. If not showering daily after the initial dressingis removed you must clean incision and change dressing daily after the dressingcomes off, must come off by 7 days postop. Do not allow animals near the incision area. Keep clean. Follow hip precautions that were reviewed in hospital. Wear compression stockings, may remove at night. Start physical therapy as directed in hospital. Follow prescriptions instructions do not take any other pain medication or differ dosing without consulting your physician. Do not take oral NSAIDs. Call Dr. Terry's office with any concerns. Discharge Orders/Prescriptions Prescriptions: New acetaminophen 500 mg tablet 1,000 mg PO Q6H Qty: 90 0RF oxycodone 5 mg tablet 5 - 10 mg PO Q4H PRN (Reason: pain) 7 Days Qty: 60 0RF enoxaparin [Lovenox] 40 mg/0.4 mL syringe 40 mg subcut DAILY Qty: 4 0RF Rx Instructions: Discontinue when INR therapeutic Continued calcium carbonate-vitamin D3 [Calcium 600 with Vitamin D3] 600 mg(1,500mg) -500 unit capsule 1 cap PO BID metformin 1,000 mg tablet 1,000 mg PO BID hydroxychloroquine 200 mg tablet 200 mg PO BID gabapentin 300 mg capsule 300 mg PO BID duloxetine [Cymbalta] 60 mg capsule,delayed release(DR/EC) 60 mg PO QAM Qty: 90 1RF duloxetine 30 mg capsule,delayed release(DR/EC) 30 mg PO QPM Qty: 90 1RF meclizine 25 mg tablet 25 mg PO BID PRN (Reason: dizziness) Qty: 180 0RF lisinopril-hydrochlorothiazide 20-12.5 mg tablet 1 tab PO QDAY trazodone 50 MG tablet 100 mg PO QHS Patient Comments: INSOMINIA ferrous sulfate 325 MG tablet 325 mg PO BID Patient Comments: SUPPLEMENT multivitamin with folic acid 1 TABLET tablet 1 tab PO DAILY Patient Comments: SUPPLEMENT biotin 10,000 mcg capsule 10,000 mcg PO DAILY Patient Comments: SUPPLEMENT tramadol 50 mg Tablet 50 mg PO Q6H PRN (Reason: Pain Score 6-10) Qty: 25 0RF warfarin [Jantoven] 5 mg tablet 10 mg PO SUTUWETHSA ropinirole 2 mg tablet 2 mg PO QHS warfarin 4 mg tablet 8 mg PO MOFR (DME) CPAP - Continuous Positive Airway Pressure([facility] INFORMATIONAL USE ONLY) Device See Rx Instructions .ROUTE Rx Instructions: As directed tizanidine 4 mg tablet 8 mg PO QHS Rx Instructions: Take 1 to 2 tablets orally nightly. ropinirole 2 mg tablet 2 mg PO 1700 Rx Instructions: Take 1 tablet orally q5PM and 1 tablet nightly as needed omeprazole 20 mg capsule,delayed release(DR/EC) 20 mg PO DAILY Held methotrexate sodium 2.5 mg tablet 20 mg PO SA Hold Instructions: Hold until after 2 weeks postop visit Referrals / Follow Up: Meir Zepeda MD [Primary Care Provider] - Disposition Disposition (needs filled in before D/C Order can be placed): Inpatient Rehab Unit/Facility 03/27/25 1028 <Electronically signed by Chino Masters DO> Cosigner Signature (if applicable): CC: Dr. Meir Zepeda MD; Dr. Juarez Muñoz MD; Dr. Chino Masters DO ~ [facility] Work Phone: [phone] Progress note Author Chino [facility] Note Date/Time March 27, 2025 10:21am [facility] Medical Records Department [address] [place] [address] Progress Note - Hospitalist 03/26/25 1854 MR#: [id number] Acct: [id number] Name: ELSA BLUE Rep #:[id number] : 1955 69 From: Chino Masters DO PCP: Dr. Meir Zepeda MD Status:ADM IN [id number] Subjective Subjective Patient was seen and examined today, I held her blood pressure medications because her pressure was low this morning with a systolic reading in the 90s. The rehab unit declined to take her due to her pressure being low today and wanted to have her reevaluated tomorrow morning. I have decided to stop her Zestril and hydrochlorothiazide. Patient was given extra warfarin today due to a low INR. She remains on Lovenox for DVT prophylaxis. Objective Data Objective Data Vital Signs: Vital Signs Temp Pulse Resp BP Pulse Ox O2 Del Method O2 Flow Rate 97.8 F 98 16 145/55 H 100 Room Air 2 03/26/25 14:12 03/26/25 17:58 03/26/25 14:12 03/26/25 17:58 03/26/25 14:12 03/26/25 14:12 03/26/25 07:30 Oxygen Flow Rate (L/min) 2 Oxygen Delivery Method Room Air Weight: 102.5 kg Body Mass Index (BMI) 37.5 Intake & Output: Intake and Output for Last 24 Hours 03/24/25 03/25/25 03/26/25 23:59 23:59 23:59 Intake Total 2764 / 2964 1719 550 / 550 Output Total 150 / 150 Balance 2614 / 2814 1719 550 / 550 Lab / Micro Data 03/25/25 06:39 03/25/25 06:39 Labs: Laboratory Results - last 24 hr 03/26/25 06:12: PT 16.1 H, INR 1.3 03/26/25 06:29: POC Glucose 184 H 03/26/25 11:05: POC Glucose 155 H 03/26/25 16:12: POC Glucose 177 H Micro: Microbiology 03/16/25 08:07 Swab (Method) Nasal Screen MRSA/MSSA - Final Physical Exam Narrative alert, oriented x3 and no apparent distress General Appearance: cooperative, well kempt and well developed Orientation / Consciousness: awake, oriented to person, oriented to place and oriented to time HEENT normocephalic, head/scalp atraumatic and moist oral mucous membranes Eyes PERRL, EOMs intact bilaterally and conjunctivae normal Neck supple, no JVD, thyroid normal and no carotid bruits General: trachea midline Resp normal respiratory effort, no retractions, no use of accessory muscles and clearto auscultation bilaterally Auscultation: Negative for rales, rhonchi or wheezes Cardio regular rate, regular rhythm, S1 normal heart sound, S2 normal heart sound, no murmurs, no rub and no gallops GI normal to inspection, nondistended, normoactive bowel sounds, soft to palpation,non-tender and non-distended Extremity no clubbing, cyanosis or edema Skin no rashes or lesions noted General Skin Exam: no breakdown Neuro oriented x3, CN's II-XII intact bilaterally, moves all extremities, no focal motor deficits and no sensory deficits noted Sensorium / Orientation: awake and alert Speech: speech normal Psych affect normal Assessment & Plan Assessment/Plan (1) Degenerative joint disease of right hip: QUALIFIERS: Osteoarthritis type: primary Qualified Code(s): M16.11 - Unilateral primary osteoarthritis, right hip (2) S/P total right hip arthroplasty: PLAN: Plan 1. 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 Total clinical time spent by myself addressing the patient's medical issues, reviewing all of her data, and collaborating with patient's care team: 35-minute Charges/Coding Visit Charges Inpatient E&M: 03621 Subs Hosp L2 03/27/25 1021 <Electronically signed by Chino Masters DO> Cosigner Signature (if applicable): CC: ~ Signed [facility] Work Phone: 1([phone] 247-422009-05-2025 Progress note [facility] Medical Records Department [address] [place] [address] Progress Note - Hospitalist 03/27/25 1029 MR#: [id number] Acct: [id number] Name: ELSA BLUE Rep #:[id number] : 1955 69 From: Chino Masters DO PCP: Dr. Meir Zepeda MD Status:ADM IN Location: [place] [address]-1 Subjective Subjective Patient was seen and examined today, her blood pressure was 143/60, the rehab unit has agreed to take her today Objective Data Objective Data Vital Signs: Vital Signs Temp Pulse Resp BP Pulse Ox O2 Del Method O2 Flow Rate 98.4 F 79 16 143/60 H 98 Room Air 2 03/27/25 08:00 03/27/25 08:00 03/27/25 08:00 03/27/25 08:00 03/27/25 08:00 03/27/25 09:00 03/27/25 03:00 FiO2 97 03/27/25 03:00 Oxygen Flow Rate (L/min) 2 Oxygen Delivery Method Room Air Weight: 102.5 kg Body Mass Index (BMI) 37.5 Intake & Output: Intake and Output for Last 24 Hours 03/25/25 03/26/25 03/27/25 23:59 23:59 23:59 Intake Total 1719 550 / 550 Balance 1719 550 / 550 Lab / Micro Data 03/25/25 06:39 03/25/25 06:39 Labs: Laboratory Results - last 24 hr 03/26/25 11:05: POC Glucose 155 H 03/26/25 16:12: POC Glucose 177 H 03/26/25 22:38: POC Glucose 166 H 03/27/25 06:35: PT 18.9 H, INR 1.6 03/27/25 07:02: POC Glucose 172 H Micro: Microbiology 03/16/25 08:07 Swab (Method) Nasal Screen MRSA/MSSA - Final Physical Exam Narrative alert, oriented x3 and no apparent distress General Appearance: cooperative, well kempt and well developed Orientation / Consciousness: awake, oriented to person, oriented to place and oriented to time HEENT normocephalic, head/scalp atraumatic and moist oral mucous membranes Eyes PERRL, EOMs intact bilaterally and conjunctivae normal Neck supple, no JVD, thyroid normal and no carotid bruits General: trachea midline Resp normal respiratory effort, no retractions, no use of accessory muscles and clearto auscultation bilaterally Auscultation: Negative for rales, rhonchi or wheezes Cardio regular rate, regular rhythm, S1 normal heart sound, S2 normal heart sound, no murmurs, no rub and no gallops GI normal to inspection, nondistended, normoactive bowel sounds, soft to palpation,non-tender and non-distended Extremity no clubbing, cyanosis or edema Skin no rashes or lesions noted General Skin Exam: no breakdown Neuro oriented x3, CN's II-XII intact bilaterally, moves all extremities, no focal motor deficits and no sensory deficits noted Sensorium / Orientation: awake and alert Speech: speech normal Psych affect normal Assessment & Plan Assessment/Plan (1) S/P total right hip arthroplasty: PLAN: Plan 1. 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-patient will resume her warfarin, INR will be rechecked tomorrow, patient is currently also on Lovenox until her INR becomes therapeutic, INR today was 1.6, she was given extra warfarin this morning #5 rheumatoid arthritis-complicates care, management, recovery, and prognosis #6 degenerative disc disease of the lumbar spine with lumbar radiculopathy- patient is on gabapentin #7 essential hypertension-due to hypotension yesterday, her blood pressure medication was stopped, her blood pressure will need to be monitored in the rehab unit #8 status post right hip replacement postop day 3 -PT and OT will work with patient, patient will be transferred to the rehab unit today for further inpatient rehab services Total clinical time spent by myself addressing the patient's medical issues, reviewing all of her data, and collaborating with patient's care team: 35-minute Charges/Coding Visit Charges Inpatient E&M: 65883 Subs Hosp L2 03/27/25 1031 Cosigner Signature (if applicable): CC: ~ Signed [facility]09-05-2025 Discharge summary [facility] Medical Records Department [address] [place] [address] Transfer to [facility] MR#: [id number] Acct: [id number] Name: ELSA BLUE Rep #:[id number] 0 : 1955 69 From: Chion Masters DO PCP: Dr. Meir Zepeda MD Status:ADM IN Certification of patient admission REQUIRED AT TIME OF ADMISSION. I CERTIFY THAT POST-HOSPITAL ECF SERVICES ARE REQUIRED TO BE GIVEN ON AN IN-PATIENT BASIS BECAUSE OF THE ABOVE NAMED PATIENT'S NEED FOR CARE HOME CARE ON A CONTINUING BASIS FOR THE CONDITION(S) FOR WHICH HE/SHE WAS RECEIVING IN-PATIENT HOSPITAL SERVICES PRIOR TO HIS/HER TRANSFER TO THE [facility]. 03/27/25 1028 Diet Diet Order/Speech Therapy: INPATIENT Hospital Diet / Speech Therapy Order(s) 03/24/25 14:50 Diet: Regular - General Routine Orders/Code Status Routine Lab Work: INR (Daily starting 03/28/25 x 3 days, discontinue Lovenox when INR above 2) Code Status: Full Code DC O2, CPAP, BIPAP needs Home O2 Discharge instructions: No Wound(s) rt hip: Wound Type: Surgical Incision RLQ: Wound Type: Surgical Incision Therapies Weight Bearing: Weight bearing as tolerated Physical Therapy: Eval and Treat Occupational Therapy: Eval and Treat Problem/Diagnosis (1) S/P total right hip arthroplasty: Status: Acute Code(s): Z96.641 - Presence of right artificial hip joint Plan 1. 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-patient will resume her warfarin, INR will be rechecked tomorrow, patient is currently also on Lovenox until her INR becomes therapeutic, INR today was 1.6, she was given extra warfarin this morning #5 rheumatoid arthritis-complicates care, management, recovery, and prognosis #6 degenerative disc disease of the lumbar spine with lumbar radiculopathy- patient is on gabapentin #7 essential hypertension-due to hypotension yesterday, her blood pressure medication was stopped, her blood pressure will need to be monitored in the rehab unit #8 status post right hip replacement postop day 3 -PT and OT will work with patient, she states herplan is to go to a alf facility for short- term rehab services. Total clinical time spent by myself addressing the patient's medical issues, reviewing all of her data, and collaborating with patient's care team: 35-minute Allergies/Procedures Done in Hospital Allergies amoxicillin Allergy (Mild, Verified 03/24/25 06:17) rash atorvastatin Adverse Reaction (Mild, Verified 03/24/25 06:17) myalgiias muscle pain levofloxacin (From Levaquin) Adverse Reaction (Unknown, Verified 03/24/25 06:17) Nausea Procedures: - (CT-guided MAKOplasty assisted right total hip arthroplasty-03/24/2025) Type of Care/Length of Stay Estimated LOS: Convalescent Care Less Than 30 days Type of Care Needed: Acute Rehab Rehab Potential: Good Prognosis: Good Additional Orders/Day of Discharge H&P will serve as current which was dated: 03/24/25 Day of Discharge: 03/27/25 Follow Up Care Please Follow Up With: Jose Ramon Terry DO When: 2 weeks Discharge Plan Admission Admit Date/Time: 03/24/25 10:28 Primary Reason for Your Visit: Right total hip arthroplasty Attending Provider: Jose Ramon Terry Primary Care Provider: Meir Zepeda Consulting Providers: Juarez Muñoz; Chino Masters Instructions Additional Instructions / Restrictions: Do not shower for 1 week. May Begin daily showering with warm water antibacterial soap postop day 7and then daily. Leave the dressing on for 7day postoperatively then remove prior to first shower and change dressing daily after this until no drainage for 2 consecutive days then may leave open to air. Do not submerge for 3 weeks. If not showering daily after the initial dressingis removed you must clean incision and change dressing daily after the dressingcomes off, must come off by 7 days postop.Do not allow animals near the incision area. Keep clean. Follow hip precautions that were reviewed in hospital. Wear compression stockings, may remove at night. Start physical therapy as directed in hospital. Follow prescriptions instructions do not take any other pain medication or differ dosing without consulting your physician. Do not take oral NSAIDs. Call Dr. Terry's office with any concerns. Discharge Orders/Prescriptions Prescriptions: New acetaminophen 500 mg tablet 1,000 mg PO Q6H Qty: 90 0RF oxycodone 5 mg tablet 5 - 10 mg PO Q4H PRN (Reason: pain) 7 Days Qty: 60 0RF enoxaparin [Lovenox] 40 mg/0.4 mL syringe 40 mg subcut DAILY Qty: 4 0RF Rx Instructions: Discontinue when INR therapeutic Continued calcium carbonate-vitamin D3 [Calcium 600 with Vitamin D3] 600 mg(1,500mg) -500 unit capsule 1 cap PO BID metformin 1,000 mg tablet 1,000 mg PO BID hydroxychloroquine 200 mg tablet 200 mg PO BID gabapentin 300 mg capsule 300 mg PO BID duloxetine [Cymbalta] 60 mg capsule,delayed release(DR/EC) 60 mg PO QAM Qty: 90 1RF duloxetine 30 mg capsule,delayed release(DR/EC) 30 mg PO QPM Qty: 90 1RF meclizine 25 mg tablet 25 mg PO BID PRN (Reason: dizziness) Qty: 180 0RF lisinopril-hydrochlorothiazide 20-12.5 mg tablet 1 tab PO QDAY trazodone 50 MG tablet 100 mg PO QHS Patient Comments: INSOMINIA ferrous sulfate 325 MG tablet 325 mg PO BID Patient Comments: SUPPLEMENT multivitamin with folic acid 1 TABLET tablet 1 tab PO DAILY Patient Comments: SUPPLEMENT biotin 10,000 mcg capsule 10,000 mcg PO DAILY Patient Comments: SUPPLEMENT tramadol 50 mg Tablet 50 mg PO Q6H PRN (Reason: Pain Score 6-10) Qty: 25 0RF warfarin [Jantoven] 5 mg tablet 10 mg PO SUTUWETHSA ropinirole 2 mg tablet 2 mg PO QHS warfarin 4 mg tablet 8 mg PO MOFR (DME) CPAP - Continuous Positive Airway Pressure([facility] INFORMATIONAL USE ONLY) Device See Rx Instructions .ROUTE Rx Instructions: As directed tizanidine 4 mg tablet 8 mg PO QHS Rx Instructions: Take 1 to 2 tablets orally nightly. ropinirole 2 mg tablet 2 mg PO 1700 Rx Instructions: Take 1 tablet orally q5PM and 1 tablet nightly as needed omeprazole 20 mg capsule,delayed release(DR/EC) 20 mg PO DAILY Held methotrexate sodium 2.5 mg tablet 20 mg PO SA Hold Instructions: Hold until after 2 weeks postop visit Referrals / Follow Up: Meir Zepeda MD [Primary Care Provider] - Disposition Disposition (needs filled in before D/C Order can be placed): Inpatient Rehab Unit/Facility 03/27/25 1028 Cosigner Signature (if applicable): CC: Dr. Meir Zepeda MD; Dr. Juarez Muñoz MD; Dr. Chino Masters DO ~ [facility]09-05-2025 Progress note [facility] Medical Records Department [address] [place] [address] Progress Note - Hospitalist 03/26/25 1854 MR#: [id number] Acct: [id number] Name: ELSA BLUE Rep #:[id number] : 1955 69 From: Chino Masters DO PCP: Dr. Meir Zepeda MD Status:ADM IN Location: [address] Subjective Subjective Patient was seen and examined today, I held her blood pressure medications because her pressure waslow this morning with a systolic reading in the 90s. The rehab unit declined to take her due to herpressure being low today and wanted to have her reevaluated tomorrow morning. I have decided to stop her Zestril and hydrochlorothiazide. Patient was given extra warfarin today due to a low INR. She remains on Lovenox for DVT prophylaxis. Objective Data Objective Data Vital Signs: Vital Signs Temp Pulse Resp BP Pulse Ox O2 Del Method O2 Flow Rate 97.8 F 98 16 145/55 H 100 Room Air 2 03/26/25 14:12 03/26/25 17:58 03/26/25 14:12 03/26/25 17:58 03/26/25 14:12 03/26/25 14:12 03/26/25 07:30 Oxygen Flow Rate (L/min) 2 Oxygen Delivery Method Room Air Weight: 102.5 kg Body Mass Index (BMI) 37.5 Intake & Output: Intake and Output for Last 24 Hours 03/24/25 03/25/25 03/26/25 23:59 23:59 23:59 Intake Total 2764 / 2964 1719 550 / 550 Output Total 150 / 150 Balance 2614 / 2814 1719 550 / 550 Lab / Micro Data 03/25/25 06:39 03/25/25 06:39 Labs: Laboratory Results - last 24 hr 03/26/25 06:12: PT 16.1 H, INR 1.3 03/26/25 06:29: POC Glucose 184 H 03/26/25 11:05: POC Glucose 155 H 03/26/25 16:12: POC Glucose 177 H Micro: Microbiology 03/16/25 08:07 Swab (Method) Nasal Screen MRSA/MSSA - Final Physical Exam Narrative alert, oriented x3 and no apparent distress General Appearance: cooperative, well kempt and well developed Orientation / Consciousness: awake, oriented to person, oriented to place and oriented to time HEENT normocephalic, head/scalp atraumatic and moist oral mucous membranes Eyes PERRL, EOMs intact bilaterally and conjunctivae normal Neck supple, no JVD, thyroid normal and no carotid bruits General: trachea midline Resp normal respiratory effort, no retractions, no use of accessory muscles and clearto auscultation bilaterally Auscultation: Negative for rales, rhonchi or wheezes Cardio regular rate, regular rhythm, S1 normal heart sound, S2 normal heart sound, no murmurs, no rub and no gallops GI normal to inspection, nondistended, normoactive bowel sounds, soft to palpation,non-tender and non-distended Extremity no clubbing, cyanosis or edema Skin no rashes or lesions noted General Skin Exam: no breakdown Neuro oriented x3, CN's II-XII intact bilaterally, moves all extremities, no focal motor deficits and no sensory deficits noted Sensorium / Orientation: awake and alert Speech: speech normal Psych affect normal Assessment & Plan Assessment/Plan (1) Degenerative joint disease of right hip: QUALIFIERS: Osteoarthritis type: primary Qualified Code(s): M16.11 - Unilateral primary osteoarthritis, right hip (2) S/P total right hip arthroplasty: PLAN: Plan 1. 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 Total clinical time spent by myself addressing the patient's medical issues, reviewing all of her data, and collaborating with patient's care team: 35-minute Charges/Coding Visit Charges Inpatient E&M: 62096 Subs Hosp L2 03/27/25 1021 Cosigner Signature (if applicable): CC: ~ Signed [facility]09-05-2025 Discharge summary Author Jose Ramon Terry [facility] Note Date/Time March 27, 2025 7:31am [facility] Medical Records Department [address] [place] [address] Transfer to [facility] MR#: [id number] Acct: [id number] Name: ELSA BLUE Rep #:[id number] : 1955 69 From: Jose Ramon Terry DO PCP: Dr. Meir Zepeda MD Status:ADM IN Certification of patient admission REQUIRED AT TIME OF ADMISSION. I CERTIFY THAT POST-HOSPITAL ECF SERVICES ARE REQUIRED TO BE GIVEN ON AN IN-PATIENT BASIS BECAUSE OF THE ABOVE NAMED PATIENT'S NEED FOR CARE HOME CARE ON A CONTINUING BASIS FOR THE CONDITION(S) FOR WHICH HE/SHE WAS RECEIVING IN-PATIENT HOSPITAL SERVICES PRIOR TO HIS/HER TRANSFER TO THE [facility]. 03/27/25 0731<Electronically signed by Jose Ramon Terry DO> Diet Diet Order/Speech Therapy: INPATIENT Hospital Diet / Speech Therapy Order(s) 03/24/25 14:50 Diet: Regular - General DC O2, CPAP, BIPAP needs Home O2 Discharge instructions: No Wound(s) rt hip: Wound Type: Surgical Incision RLQ: Wound Type: Surgical Incision Therapies Weight Bearing: Full weight bearing (standard hip precautions) Extremity Affected:: Bilateral Lower Problem/Diagnosis (1) S/P total right hip arthroplasty: Status: Acute Code(s): Z96.641 - Presence of right artificial hip joint Plan Postop day #3 right total hip arthroplasty PT OT weightbearing as tolerated with hip precautions DVT prophylaxis Coumadin and Lovenox until INR therapeutic then DC Lovenox. Plan for discharge to rehab today if okay with medicine Dressing to be undisturbed for 7 days postop then remove prior to for shower andclean daily with antibacterial soap and warm water daily after dressing is removed with reapplication of dry dressing. Discussed with Dr. Terry. Follow-up in the office 2 weeks postop for wound check and staple removal. Allergies/Procedures Done in Hospital Allergies amoxicillin Allergy (Mild, Verified 03/24/25 06:17) rash atorvastatin Adverse Reaction (Mild, Verified 03/24/25 06:17) myalgiias muscle pain levofloxacin (From Levaquin) Adverse Reaction (Unknown, Verified 03/24/25 06:17) Nausea Type of Care/Length of Stay Estimated LOS: Convalescent Care Less Than 30 days Type of Care Needed: Skilled Rehab Potential: Good Prognosis: Good Additional Orders/Day of Discharge Day of Discharge: 03/27/25 Follow Up Care Please Follow Up With: Jose Ramon Terry DO When: 2 weeks Discharge Plan Admission Admit Date/Time: 03/24/25 10:28 Primary Reason for Your Visit: Right total hip arthroplasty Attending Provider: Jose Ramon Terry Primary Care Provider: Meir Zepeda Consulting Providers: Juarez Muñoz; Chino Masters Instructions Additional Instructions / Restrictions: Do not shower for 1 week. May Begin daily showering with warm water antibacterial soap postop day 7 and then daily. Leave the dressing on for 7day postoperatively then remove prior to first shower and change dressing daily after this until no drainage for 2 consecutive days then may leave open to air. Do not submerge for 3 weeks. If not showering daily after the initial dressingis removed you must clean incision and change dressing daily after the dressingcomes off, must come off by 7 days postop. Do not allow animals near the incision area. Keep clean. Follow hip precautions that were reviewed in hospital. Wear compression stockings, may remove at night. Start physical therapy as directed in hospital. Follow prescriptions instructions do not take any other pain medication or differ dosing without consulting your physician. Do not take oral NSAIDs. Call Dr. Terry's office with any concerns. Discharge Orders/Prescriptions Prescriptions: New acetaminophen 500 mg tablet 1,000 mg PO Q6H Qty: 90 0RF oxycodone 5 mg tablet 5 - 10 mg PO Q4H PRN (Reason: pain) 7 Days Qty: 60 0RF enoxaparin [Lovenox] 40 mg/0.4 mL syringe 40 mg subcut DAILY Qty: 4 0RF Rx Instructions: Discontinue when INR therapeutic Continued calcium carbonate-vitamin D3 [Calcium 600 with Vitamin D3] 600 mg(1,500mg) -500 unit capsule 1 cap PO BID metformin 1,000 mg tablet 1,000 mg PO BID hydroxychloroquine 200 mg tablet 200 mg PO BID gabapentin 300 mg capsule 300 mg PO BID duloxetine [Cymbalta] 60 mg capsule,delayed release(DR/EC) 60 mg PO QAM Qty: 90 1RF duloxetine 30 mg capsule,delayed release(DR/EC) 30 mg PO QPM Qty: 90 1RF meclizine 25 mg tablet 25 mg PO BID PRN (Reason: dizziness) Qty: 180 0RF lisinopril-hydrochlorothiazide 20-12.5 mg tablet 1 tab PO QDAY trazodone 50 MG tablet 100 mg PO QHS Patient Comments: INSOMINIA ferrous sulfate 325 MG tablet 325 mg PO BID Patient Comments: SUPPLEMENT multivitamin with folic acid 1 TABLET tablet 1 tab PO DAILY Patient Comments: SUPPLEMENT biotin 10,000 mcg capsule 10,000 mcg PO DAILY Patient Comments: SUPPLEMENT tramadol 50 mg Tablet 50 mg PO Q6H PRN (Reason: Pain Score 6-10) Qty: 25 0RF warfarin [Jantoven] 5 mg tablet 10 mg PO SUTUWETHSA ropinirole 2 mg tablet 2 mg PO QHS warfarin 4 mg tablet 8 mg PO MOFR (DME) CPAP - Continuous Positive Airway Pressure([facility] INFORMATIONAL USE ONLY) Device See Rx Instructions .ROUTE Rx Instructions: As directed tizanidine 4 mg tablet 8 mg PO QHS Rx Instructions: Take 1 to 2 tablets orally nightly. ropinirole 2 mg tablet 2 mg PO 1700 Rx Instructions: Take 1 tablet orally q5PM and 1 tablet nightly as needed omeprazole 20 mg capsule,delayed release(DR/EC) 20 mg PO DAILY Held methotrexate sodium 2.5 mg tablet 20 mg PO SA Hold Instructions: Hold until after 2 weeks postop visit Referrals / Follow Up: Meir Zepeda MD [Primary Care Provider] - Disposition Disposition (needs filled in before D/C Order can be placed): Inpatient Rehab Unit/Facility 03/27/25 0731 <Electronically signed by Jose Ramon Terry DO> Cosigner Signature (if applicable): CC: Dr. Meir Zepeda MD; Dr. Juarez Muñoz MD; Dr. Chino Masters DO ~ [facility] Work Phone: 1(920) 516-900009-05-2025 Progress note [facility] Note Date/Time March 27, 2025 7:21am [facility] Medical Records Department [address] [place] [address] Progress Note - Orthopedic 03/27/25718 MR#: [id number] Acct: [id number] Name: ELSA BLUE Rep #:[id number] : 1955 69 From: Jose Ramon Terry DO PCP: Dr. Meir Zepeda MD Status:ADM IN Location: [place]-0 Subjective Subjective Seen and examined. Doing okay pain is slightly better. No fevers or chills nausea vomiting shortness of breath or chest pain or dizziness with ambulating. Eating and drinking okay bowel movement and urination no difficulty. Ready for discharge Objective Data Objective Data Vital Signs: Vital Signs Temp Pulse Resp BP Pulse Ox O2 Del Method O2 Flow Rate 98.0 F 72 15 113/90 H 97 Nasal Cannula 2 03/27/25 02:00 03/27/25 02:00 03/27/25 02:00 03/27/25 02:00 03/27/25 02:00 03/27/25 03:00 03/27/25 03:00 FiO2 97 03/27/25 03:00 Oxygen Flow Rate (L/min) 2 Oxygen Delivery Method Nasal Cannula Weight: 225 lb 15.581 oz Body Mass Index (BMI) 37.5 Intake & Output: Intake and Output for Last 24 Hours 03/25/25 03/26/25 03/27/25 23:59 23:59 23:59 Intake Total 1719 550 / 550 Balance 1719 550 / 550 Lab / Micro Data 03/25/25 06:39 03/25/25 06:39 Labs: Laboratory Results - last 24 hr 03/26/25 11:05: POC Glucose 155 H 03/26/25 16:12: POC Glucose 177 H 03/26/25 22:38: POC Glucose 166 H Micro: Microbiology 03/16/25 08:07 Swab (Method) Nasal Screen MRSA/MSSA - Final Physical Exam Narrative Patient sitting in chair. Dressing CDI. Mild staining at the iliac crest dressing. Distal neurovascular exam is intact. Const alert, oriented x3 and no apparent distress General Appearance: cooperative Extremity normal capillary refill Extremity Narrative: Right hip dressing clean dry intact compartment soft neurovasc intact right lower extremity EHL tibialis anterior gastrocsoleus intact sensation light touchpalpable pedal pulses Assessment & Plan Assessment/Plan (1) S/P total right hip arthroplasty: PLAN: Plan Postop day #3 right total hip arthroplasty PT OT weightbearing as tolerated with hip precautions DVT prophylaxis Coumadin and Lovenox until INR therapeutic then DC Lovenox. Plan for discharge to rehab today if okay with medicine Dressing to be undisturbed for 7 days postop then remove prior to for shower andclean daily with antibacterial soap and warm water daily after dressing is removed with reapplication of dry dressing. Discussed with Dr. Terry. Follow-up in the office 2 weeks postop for wound check and staple removal. 03/27/25 0721 <Electronically signed by Jose Ramon Terry DO> Cosigner Signature (if applicable): CC: ~ Signed [facility] Work Phone: [phone] 653-442509-05-2025 Discharge summary [facility] Medical Records Department [address] [place] [id number] Transfer to [facility] MR#: [id number] Acct: [id number] Name: ELSA BLUE Rep #:[id number] : 1955 69 From: Jose Ramon Terry DO PCP: Dr. Meir Zepeda MD Status:ADM IN Certification of patient admission REQUIRED AT TIME OF ADMISSION. I CERTIFY THAT POST-HOSPITAL F SERVICES ARE REQUIRED TO BE GIVEN ON AN IN-PATIENT BASIS BECAUSE OF THE ABOVE NAMED PATIENT'S NEED FOR CARE HOME CARE ON A CONTINUING BASIS FOR THE CONDITION(S) FOR WHICH HE/SHE WAS RECEIVING IN-PATIENT HOSPITAL SERVICES PRIOR TO HIS/HER TRANSFER TO THE [facility]. 03/27/25 0731 Diet Diet Order/Speech Therapy: INPATIENT Hospital Diet / Speech Therapy Order(s) 03/24/25 14:50 Diet: Regular - General DC O2, CPAP, BIPAP needs Home O2 Discharge instructions: No Wound(s) rt hip: Wound Type: Surgical Incision RLQ: Wound Type: Surgical Incision Therapies Weight Bearing: Full weight bearing (standard hip precautions) Extremity Affected:: Bilateral Lower Problem/Diagnosis (1) S/P total right hip arthroplasty: Status: Acute Code(s): Z96.641 - Presence of right artificial hip joint Plan Postop day #3 right total hip arthroplasty PT OT weightbearing as tolerated with hip precautions DVT prophylaxis Coumadin and Lovenox until INR therapeutic then DC Lovenox. Plan for discharge to rehab today if okay with medicine Dressing to be undisturbed for 7 days postop then remove prior to for shower andclean daily with antibacterial soap and warm water daily after dressing is removed with reapplication of dry dressing. Discussed with Dr. Terry. Follow-up in the office 2 weeks postop for wound check and staple removal. Allergies/Procedures Done in Hospital Allergies amoxicillin Allergy (Mild, Verified 03/24/25 06:17) rash atorvastatin Adverse Reaction (Mild, Verified 03/24/25 06:17) myalgiias muscle pain levofloxacin (From Levaquin) Adverse Reaction (Unknown, Verified 03/24/25 06:17) Nausea Type of Care/Length of Stay Estimated LOS: Convalescent Care Less Than 30 days Type of Care Needed: Skilled Rehab Potential: Good Prognosis: Good Additional Orders/Day of Discharge Day of Discharge: 03/27/25 Follow Up Care Please Follow Up With: Jose Ramon Terry DO When: 2 weeks Discharge Plan Admission Admit Date/Time: 03/24/25 10:28 Primary Reason for Your Visit: Right total hip arthroplasty Attending Provider: Jose Ramon Terry Primary Care Provider: Meir Zepeda Consulting Providers: Juarez Muñoz; Chino Masters Instructions Additional Instructions / Restrictions: Do not shower for 1 week. May Begin daily showering with warm water antibacterial soap postop day 7and then daily. Leave the dressing on for 7day postoperatively then remove prior to first shower and change dressing daily after this until no drainage for 2 consecutive days then may leave open to air. Do not submerge for 3 weeks. If not showering daily after the initial dressingis removed you must clean incision and change dressing daily after the dressingcomes off, must come off by 7 days postop.Do not allow animals near the incision area. Keep clean. Follow hip precautions that were reviewed in hospital. Wear compression stockings, may remove at night. Start physical therapy as directed in hospital. Follow prescriptions instructions do not take any other pain medication or differ dosing without consulting your physician. Do not take oral NSAIDs. Call Dr. Terry's office with any concerns. Discharge Orders/Prescriptions Prescriptions: New acetaminophen 500 mg tablet 1,000 mg PO Q6H Qty: 90 0RF oxycodone 5 mg tablet 5 - 10 mg PO Q4H PRN (Reason: pain) 7 Days Qty: 60 0RF enoxaparin [Lovenox] 40 mg/0.4 mL syringe 40 mg subcut DAILY Qty: 4 0RF Rx Instructions: Discontinue when INR therapeutic Continued calcium carbonate-vitamin D3 [Calcium 600 with Vitamin D3] 600 mg(1,500mg) -500 unit capsule 1 cap PO BID metformin 1,000 mg tablet 1,000 mg PO BID hydroxychloroquine 200 mg tablet 200 mg PO BID gabapentin 300 mg capsule 300 mg PO BID duloxetine [Cymbalta] 60 mg capsule,delayed release(DR/EC) 60 mg PO QAM Qty: 90 1RF duloxetine 30 mg capsule,delayed release(DR/EC) 30 mg PO QPM Qty: 90 1RF meclizine 25 mg tablet 25 mg PO BID PRN (Reason: dizziness) Qty: 180 0RF lisinopril-hydrochlorothiazide 20-12.5 mg tablet 1 tab PO QDAY trazodone 50 MG tablet 100 mg PO QHS Patient Comments: INSOMINIA ferrous sulfate 325 MG tablet 325 mg PO BID Patient Comments: SUPPLEMENT multivitamin with folic acid 1 TABLET tablet 1 tab PO DAILY Patient Comments: SUPPLEMENT biotin 10,000 mcg capsule 10,000 mcg PO DAILY Patient Comments: SUPPLEMENT tramadol 50 mg Tablet 50 mg PO Q6H PRN (Reason: Pain Score 6-10) Qty: 25 0RF warfarin [Jantoven] 5 mg tablet 10 mg PO SUTUWETHSA ropinirole 2 mg tablet 2 mg PO QHS warfarin 4 mg tablet 8 mg PO MOFR (DME) CPAP - Continuous Positive Airway Pressure([facility] INFORMATIONAL USE ONLY) Device See Rx Instructions .ROUTE Rx Instructions: As directed tizanidine 4 mg tablet 8 mg PO QHS Rx Instructions: Take 1 to 2 tablets orally nightly. ropinirole 2 mg tablet 2 mg PO 1700 Rx Instructions: Take 1 tablet orally q5PM and 1 tablet nightly as needed omeprazole 20 mg capsule,delayed release(DR/EC) 20 mg PO DAILY Held methotrexate sodium 2.5 mg tablet 20 mg PO SA Hold Instructions: Hold until after 2 weeks postop visit Referrals / Follow Up: Meir Zepeda MD [Primary Care Provider] - Disposition Disposition (needs filled in before D/C Order can be placed): Inpatient Rehab Unit/Facility 03/27/25730 Cosigner Signature (if applicable): CC: Dr. Meir Zepeda MD; Dr. Juarez Muñoz MD; Dr. Chino Masters DO ~ [facility]09-05-2025 Progress note [facility] Medical Records Department [address] [place] [address] Progress Note - Orthopedic 03/27/25718 MR#: [id number] Acct: [id number] Name: ELSA BLUE Rep #:[id number] : 1955 69 From: Jose Ramon Terry DO PCP: Dr. Meir Zepeda MD Status:ADM IN Location: [place] [address] Subjective Subjective Seen and examined. Doing okay pain is slightly better. No fevers or chills nausea vomiting shortness of breath or chest pain or dizziness with ambulating. Eating and drinking okay bowel movement and urination no difficulty. Ready for discharge Objective Data Objective Data Vital Signs: Vital Signs Temp Pulse Resp BP Pulse Ox O2 Del Method O2 Flow Rate 98.0 F 72 15 113/90 H 97 Nasal Cannula 2 03/27/25 02:00 03/27/25 02:00 03/27/25 02:00 03/27/25 02:00 03/27/25 02:00 03/27/25 03:00 03/27/25 03:00 FiO2 97 03/27/25 03:00 Oxygen Flow Rate (L/min) 2 Oxygen Delivery Method Nasal Cannula Weight: 225 lb 15.581 oz Body Mass Index (BMI) 37.5 Intake & Output: Intake and Output for Last 24 Hours 03/25/25 03/26/25 03/27/25 23:59 23:59 23:59 Intake Total 1719 550 / 550 Balance 1719 550 / 550 Lab / Micro Data 03/25/25 06:39 03/25/25 06:39 Labs: Laboratory Results - last 24 hr 03/26/25 11:05: POC Glucose 155 H 03/26/25 16:12: POC Glucose 177 H 03/26/25 22:38: POC Glucose 166 H Micro: Microbiology 03/16/25 08:07 Swab (Method) Nasal Screen MRSA/MSSA - Final Physical Exam Narrative Patient sitting in chair. Dressing CDI. Mild staining at the iliac crest dressing. Distal neurovascular exam is intact. Const alert, oriented x3 and no apparent distress General Appearance: cooperative Extremity normal capillary refill Extremity Narrative: Right hip dressing clean dry intact compartment soft neurovasc intact right lower extremity EHL tibialis anterior gastrocsoleus intact sensation light touchpalpable pedal pulses Assessment & Plan Assessment/Plan (1) S/P total right hip arthroplasty: PLAN: Plan Postop day #3 right total hip arthroplasty PT OT weightbearing as tolerated with hip precautions DVT prophylaxis Coumadin and Lovenox until INR therapeutic then DC Lovenox. Plan for discharge to rehab today if okay with medicine Dressing to be undisturbed for 7 days postop then remove prior to for shower andclean daily with antibacterial soap and warm water daily after dressing is removed with reapplication of dry dressing. Discussed with Dr. Terry. Follow-up in the office 2 weeks postop for wound check and staple removal. 03/27/25 0721 Cosigner Signature (if applicable): CC: ~ Signed [facility]09-04-2025 Progress note Author Juve Johnson [facility] Note Date/Time March 26, 2025 1:03pm [facility] Medical Records Department [address] [place] [address] Progress Note - Orthopedic 03/26/25 1246 MR#: [id number] Acct: [id number] Name: ELSA BLUE Rep #:[id number] : 1955 69 From: Juve Johnson MD PCP: Dr. Meir Zepeda MD Status:ADM IN Location: [id number] Documented by User: ARIANA Field 03/26/25 12:49 Subjective Subjective Postop day 2 right hip total arthroplasty. Seen and examined. Complaint of pain. Denies fevers chills nausea vomiting shortness of breath or chest pain. Sitting upright comfortably. Objective Data Objective Data Vital Signs: Vital Signs Temp Pulse Resp BP Pulse Ox O2 Del Method O2 Flow Rate 97.8 F 85 18 105/45 L 99 Room Air 2 03/26/25 10:15 03/26/25 11:31 03/26/25 10:15 03/26/25 11:31 03/26/25 10:15 03/26/25 10:15 03/26/25 07:30 Oxygen Flow Rate (L/min) 2 Oxygen Delivery Method Room Air Weight: 225 lb 15.581 oz Body Mass Index (BMI) 37.5 Intake & Output: Intake and Output for Last 24 Hours 03/24/25 03/25/25 03/26/25 23:59 23:59 23:59 Intake Total 2764 / 2964 172 / 1969 550 / 550 Output Total 150 / 150 Balance 2614 / 2814 1719 550 / 550 Lab / Micro Data 03/25/25 06:39 03/25/25 06:39 Labs: Laboratory Results - last 24 hr 03/25/25 16:24: POC Glucose 199 H 03/26/25 06:12: PT 16.1 H, INR 1.3 03/26/25 06:29: POC Glucose 184 H 03/26/25 11:05: POC Glucose 155 H Micro: Microbiology 03/16/25 08:07 Swab (Method) Nasal Screen MRSA/MSSA - Final Physical Exam Const alert, oriented x3 and no apparent distress General Appearance: cooperative Extremity normal capillary refill Extremity Narrative: Right hip dressing clean dry intact compartment soft neurovasc intact right lower extremity EHL tibialis anterior gastrocsoleus intact sensation light touchpalpable pedal pulses Assessment & Plan Assessment/Plan (1) S/P total right hip arthroplasty: PLAN: Plan Postop day #2 right total hip arthroplasty PT OT weightbearing as tolerated with hip precautions Pain control oxycodone and Tylenol DVT prophylaxis Coumadin and Lovenox until INR therapeutic then DC Lovenox. INRtoday 1.3. Plan for discharge to either [facility]CU vs [facility] rehab unit when bed available. According to case management note from today, bed would be available at the TCU on Sunday, patient wishes to discuss discharge with Dr. Terry. Dressing to be undisturbed for 7 days postop then remove prior to for shower andclean daily with antibacterial soap and warm water daily after dressing is removed with reapplication of dry dressing Follow-up in the office 2 weeks postop for wound check and staple removal if still in transitional care or rehab at the hospital I can see her there if notified. Documented by User: Dr. Juve Johnson MD 03/26/25 13:03 Subjective Subjective Postop day 2 right hip total arthroplasty. Seen and examined. Complaint of pain. Denies fevers chills nausea vomiting shortness of breath or chest pain. Sitting upright comfortably. Had hypotension this morning which made it difficult for her to do PT, but now seems stabilized. Objective Data Lab / Micro Data 03/25/25 06:39 03/25/25 06:39 Physical Exam Narrative Patient sitting in chair. Dressing CDI. Mild staining at the iliac crest dressing. Distal neurovascular exam is intact. Assessment & Plan Assessment/Plan (1) S/P total right hip arthroplasty: PLAN: Plan Postop day #2 right total hip arthroplasty PT OT weightbearing as tolerated with hip precautions DVT prophylaxis Coumadin and Lovenox until INR therapeutic then DC Lovenox. INRtoday 1.3. Plan for discharge to rehab when bed available. Dressing to be undisturbed for 7 days postop then remove prior to for shower andclean daily with antibacterial soap and warm water daily after dressing is removed with reapplication of dry dressing. Discussed with Dr. Terry. Follow-up in the office 2 weeks postop for wound check and staple removal. 03/26/25 1303 <Electronically signed by Juve Johnson MD> Cosigner Signature (if applicable): CC: ~ Signed [facility] Work Phone: 1(425) 584-446009-04-2025 Progress note [facility] Medical Records Department [address] [place] [address] Progress Note - Orthopedic 03/26/25 1246 MR#: [id number] Acct: [id number] Name: ELSA BLUE Rep #:[id number] : 1955 69 From: Juve Johnson MD PCP: Dr. Meir Zepeda MD Status:ADM IN Location: [facility] [id number] Documented by User: ARIANA Field 03/26/25 12:49 Subjective Subjective Postop day 2 right hip total arthroplasty. Seen and examined. Complaint of pain. Denies fevers chills nausea vomiting shortness of breath or chest pain. Sitting upright comfortably. Objective Data Objective Data Vital Signs: Vital Signs Temp Pulse Resp BP Pulse Ox O2 Del Method O2 Flow Rate 97.8 F 85 18 105/45 L 99 Room Air 2 03/26/25 10:15 03/26/25 11:31 03/26/25 10:15 03/26/25 11:31 03/26/25 10:15 03/26/25 10:15 03/26/25 07:30 Oxygen Flow Rate (L/min) 2 Oxygen Delivery Method Room Air Weight: 225 lb 15.581 oz Body Mass Index (BMI) 37.5 Intake & Output: Intake and Output for Last 24 Hours 03/24/25 03/25/25 03/26/25 23:59 23:59 23:59 Intake Total 2764 / 2964 1720 / 1970 550 / 550 Output Total 150 / 150 Balance 2614 / 2814 172 / 1969 550 / 550 Lab / Micro Data 03/25/25 06:39 03/25/25 06:39 Labs: Laboratory Results - last 24 hr 03/25/25 16:24: POC Glucose 199 H 03/26/25 06:12: PT 16.1 H, INR 1.3 03/26/25 06:29: POC Glucose 184 H 03/26/25 11:05: POC Glucose 155 H Micro: Microbiology 03/16/25 08:07 Swab (Method) Nasal Screen MRSA/MSSA - Final Physical Exam Const alert, oriented x3 and no apparent distress General Appearance: cooperative Extremity normal capillary refill Extremity Narrative: Right hip dressing clean dry intact compartment soft neurovasc intact right lower extremity EHL tibialis anterior gastrocsoleus intact sensation light touchpalpable pedal pulses Assessment & Plan Assessment/Plan (1) S/P total right hip arthroplasty: PLAN: Plan Postop day #2 right total hip arthroplasty PT OT weightbearing as tolerated with hip precautions Pain control oxycodone and Tylenol DVT prophylaxis Coumadin and Lovenox until INR therapeutic then DC Lovenox. INRtoday 1.3. Plan for discharge to either [facility]CU vs [facility] rehab unit when bed available. According to case managementnote from today, bed would be available at the TCU on Sunday, patient wishes to discuss dischargewith Dr. Terry. Dressing to be undisturbed for 7 days postop then remove prior to for shower andclean daily with antibacterial soap and warm water daily after dressing is removed with reapplication of dry dressing Follow-up in the office 2 weeks postop for wound check and staple removal if still in transitional care or rehab at the hospital I can see her there if notified. Documented by User: Dr. Juve Johnson MD 03/26/25 13:03 Subjective Subjective Postop day 2 right hip total arthroplasty. Seen and examined. Complaint of pain. Denies fevers chills nausea vomiting shortness of breath or chest pain. Sitting upright comfortably. Had hypotension this morning which made it difficult for her to do PT, but now seems stabilized. Objective Data Lab / Micro Data 03/25/25 06:39 03/25/25 06:39 Physical Exam Narrative Patient sitting in chair. Dressing CDI. Mild staining at the iliac crest dressing. Distal neurovascular exam is intact. Assessment & Plan Assessment/Plan (1) S/P total right hip arthroplasty: PLAN: Plan Postop day #2 right total hip arthroplasty PT OT weightbearing as tolerated with hip precautions DVT prophylaxis Coumadin and Lovenox until INR therapeutic then DC Lovenox. INRtoday 1.3. Plan for discharge to rehab when bed available. Dressing to be undisturbed for 7 days postop then remove prior to for shower andclean daily with antibacterial soap and warm water daily after dressing is removed with reapplication of dry dressing. Discussed with Dr. Terry. Follow-up in the office 2 weeks postop for wound check and staple removal. 03/26/25 1303 Cosigner Signature (if applicable): CC: ~ Signed [facility]09-03-2025 Progress note Author Chino Masters [facility] Note Date/Time March 25, 2025 5:44pm [facility] Medical Records Department [address] [place] [address] Progress Note - Hospitalist 03/25/25 1739 MR#: [id number] Acct: [id number] Name: ELSA BLUE Rep #:[id number] : 1955 69 From: Chino Masters DO PCP: Dr. Meir Zepeda MD Status:ADM IN Location: [place] [id number] Subjective Subjective Patient was seen and examined today, she has no specific complaints to this examiner. Objective Data Objective Data Vital Signs: Vital Signs Temp Pulse Resp BP Pulse Ox O2 Del Method O2 Flow Rate 99.4 F H 89 16 123/58 H 97 Nasal Cannula 2 03/25/25 16:32 03/25/25 16:32 03/25/25 16:32 03/25/25 16:32 03/25/25 16:32 03/25/25 16:32 03/25/25 16:32 Oxygen Flow Rate (L/min) 2 Oxygen Delivery Method Nasal Cannula Weight: 102.5 kg Body Mass Index (BMI) 37.5 Intake & Output: Intake and Output for Last 24 Hours 03/23/25 03/24/25 03/25/25 23:59 23:59 23:59 Intake Total 2764 / 2964 1070 / 1070 Output Total 150 / 150 Balance 2614 / 2814 1070 / 1070 Lab / Micro Data 03/25/25 06:39 03/25/25 06:39 Labs: Laboratory Results - last 24 hr 03/24/25 18:01: POC Glucose 347 H 03/24/25 22:14: POC Glucose 250 H 03/25/25 06:23: POC Glucose 236 H 03/25/25 06:39: WBC 11.5 H, RBC 3.55 L, Hgb 10.9 L, Hct 32.7 L, MCV 92.1, MCH 30.7, MCHC 33.3, RDW Std Deviation 46.1 H, RDW Coeff of Les 13.4, Plt Count 297,MPV 10.0, Immature Gran % (Auto) 0.600, Neut % (Auto) 78.4 H, Lymph % (Auto) 11.9 L, Fleming % (Auto) 8.5, Eos % (Auto) 0.3, Baso % (Auto) 0.3, Absolute Neuts (auto) 9.0 H, Absolute Lymphs (auto) 1.37, Nucleated RBC % 0, Sodium 134, Potassium 4.1, Chloride 96 L, Carbon Dioxide 27.0, Anion Gap 11, BUN 20 H, Creatinine 0.69 L, Estim Creat Clear Calc 79.90, Est GFR (MDRD) Non-Af 94, BUN/Creatinine Ratio 28.1 H, Glucose 247 H, Calcium 8.6 03/25/25 11:00: PT 15.1 H, INR 1.2 03/25/25 11:09: POC Glucose 352 H 03/25/25 16:24: POC Glucose 199 H Micro: Microbiology 03/16/25 08:07 Swab (Method) Nasal Screen MRSA/MSSA - Final Physical Exam Narrative alert, oriented x3 and no apparent distress General Appearance: cooperative, well kempt and well developed Orientation / Consciousness: awake, oriented to person, oriented to place and oriented to time HEENT normocephalic, head/scalp atraumatic and moist oral mucous membranes Eyes PERRL, EOMs intact bilaterally and conjunctivae normal Neck supple, no JVD, thyroid normal and no carotid bruits General: trachea midline Resp normal respiratory effort, no retractions, no use of accessory muscles and clearto auscultation bilaterally Auscultation: Negative for rales, rhonchi or wheezes Cardio regular rate, regular rhythm, S1 normal heart sound, S2 normal heart sound, no murmurs, no rub and no gallops GI normal to inspection, nondistended, normoactive bowel sounds, soft to palpation,non-tender and non-distended Extremity no clubbing, cyanosis or edema Skin no rashes or lesions noted General Skin Exam: no breakdown Neuro oriented x3, CN's II-XII intact bilaterally, moves all extremities, no focal motor deficits and no sensory deficits noted Sensorium / Orientation: awake and alert Speech: speech normal Psych affect normal Assessment & Plan Assessment/Plan (1) S/P total right hip arthroplasty: PLAN: Plan 1. 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 Total clinical time spent by myself addressing the patient's medical issues, reviewing all of her data, and collaborating with patient's care team: 35-minute Charges/Coding Visit Charges Inpatient E&M: 51964 Subs Hosp L2 03/25/25 1744 <Electronically signed by Chino Masters DO> Cosigner Signature (if applicable): CC: ~ Signed [facility] Work Phone: 1(948) 936-503209-03-2025 Progress note [facility] Medical Records Department [address] [place] [address] Progress Note - Hospitalist 03/25/25 1739 MR#: [id number] Acct: [id number] Name: ELSA BLUE Rep #:[id number] : 1955 69 From: Chino Masters DO PCP: Dr. Meir Zepeda MD Status:ADM IN Location: [place] [address] Subjective Subjective Patient was seen and examined today, she has no specific complaints to this examiner. Objective Data Objective Data Vital Signs: Vital Signs Temp Pulse Resp BP Pulse Ox O2 Del Method O2 Flow Rate 99.4 F H 89 16 123/58 H 97 Nasal Cannula 2 03/25/25 16:32 03/25/25 16:32 03/25/25 16:32 03/25/25 16:32 03/25/25 16:32 03/25/25 16:32 03/25/25 16:32 Oxygen Flow Rate (L/min) 2 Oxygen Delivery Method Nasal Cannula Weight: 102.5 kg Body Mass Index (BMI) 37.5 Intake & Output: Intake and Output for Last 24 Hours 03/23/25 03/24/25 03/25/25 23:59 23:59 23:59 Intake Total 2764 / 2964 1070 / 1070 Output Total 150 / 150 Balance 2614 / 2814 1070 / 1070 Lab / Micro Data 03/25/25 06:39 03/25/25 06:39 Labs: Laboratory Results - last 24 hr 03/24/25 18:01: POC Glucose 347 H 03/24/25 22:14: POC Glucose 250 H 03/25/25 06:23: POC Glucose 236 H 03/25/25 06:39: WBC 11.5 H, RBC 3.55 L, Hgb 10.9 L, Hct 32.7 L, MCV 92.1, MCH 30.7, MCHC 33.3, RDW Std Deviation 46.1 H, RDW Coeff of Les 13.4, Plt Count 297,MPV 10.0, Immature Gran % (Auto) 0.600, Neut % (Auto) 78.4 H, Lymph % (Auto) 11.9 L, Fleming % (Auto) 8.5, Eos % (Auto) 0.3, Baso % (Auto) 0.3, Absolute Neuts (auto) 9.0 H, Absolute Lymphs (auto) 1.37, Nucleated RBC % 0, Sodium 134, Potassium 4.1, Chloride 96 L, Carbon Dioxide 27.0, Anion Gap 11, BUN 20 H, Creatinine 0.69 L, Estim Creat ClearCalc 79.90, Est GFR (MDRD) Non-Af 94, BUN/Creatinine Ratio 28.1 H, Glucose 247 H, Calcium 8.6 03/25/25 11:00: PT 15.1 H, INR 1.2 03/25/25 11:09: POC Glucose 352 H 03/25/25 16:24: POC Glucose 199 H Micro: Microbiology 03/16/25 08:07 Swab (Method) Nasal Screen MRSA/MSSA - Final Physical Exam Narrative alert, oriented x3 and no apparent distress General Appearance: cooperative, well kempt and well developed Orientation / Consciousness: awake, oriented to person, oriented to place and oriented to time HEENT normocephalic, head/scalp atraumatic and moist oral mucous membranes Eyes PERRL, EOMs intact bilaterally and conjunctivae normal Neck supple, no JVD, thyroid normal and no carotid bruits General: trachea midline Resp normal respiratory effort, no retractions, no use of accessory muscles and clearto auscultation bilaterally Auscultation: Negative for rales, rhonchi or wheezes Cardio regular rate, regular rhythm, S1 normal heart sound, S2 normal heart sound, no murmurs, no rub and no gallops GI normal to inspection, nondistended, normoactive bowel sounds, soft to palpation,non-tender and non-distended Extremity no clubbing, cyanosis or edema Skin no rashes or lesions noted General Skin Exam: no breakdown Neuro oriented x3, CN's II-XII intact bilaterally, moves all extremities, no focal motor deficits and no sensory deficits noted Sensorium / Orientation: awake and alert Speech: speech normal Psych affect normal Assessment & Plan Assessment/Plan (1) S/P total right hip arthroplasty: PLAN: Plan 1. 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 Total clinical time spent by myself addressing the patient's medical issues, reviewing all of her data, and collaborating with patient's care team: 35-minute Charges/Coding Visit Charges Inpatient E&M: 55005 Subs Hosp L2 03/25/25 8590 Cosigner Signature (if applicable): CC: ~ Signed [facility]09-03-2025 Progress [facility] Note Date/Time March 25, 2025 1:03pm [facility] Medical Records Department [address] [place] [address] Progress Note - Orthopedic 03/25/25 1300 MR#: [id number] Acct: [id number] Name: ELSA BLUE Rep #:[id number] 1 : 1955 69 From: Jose aRmon Terry DO PCP: Dr. Meir Zepeda MD Status:ADM IN [id number] Subjective Subjective Seen and examined. Complaint of pain. Denies fevers chills nausea vomiting shortness of breath or chest pain she is sitting in the chair eating and comfortable family member at bedside. Objective Data Objective Data Vital Signs: Vital Signs Temp Pulse Resp BP Pulse Ox O2 Del Method O2 Flow Rate 99 F 81 18 143/54 H 92 Room Air 2 03/25/25 10:28 03/25/25 10:28 03/25/25 10:28 03/25/25 10:28 03/25/25 10:28 03/25/25 10:28 03/24/25 15:16 Oxygen Flow Rate (L/min) 2 Oxygen Delivery Method Room Air Weight: 225 lb 15.581 oz Body Mass Index (BMI) 37.5 Intake & Output: Intake and Output for Last 24 Hours 03/23/25 03/24/25 03/25/25 23:59 23:59 23:59 Intake Total 2764 / 2964 1070 / 1070 Output Total 150 / 150 Balance 2614 / 2814 1070 / 1070 Lab / Micro Data 03/25/25 06:39 03/25/25 06:39 Labs: Laboratory Results - last 24 hr 03/24/25 12:56: POC Glucose 196 H 03/24/25 18:01: POC Glucose 347 H 03/24/25 22:14: POC Glucose 250 H 03/25/25 06:23: POC Glucose 236 H 03/25/25 06:39: WBC 11.5 H, RBC 3.55 L, Hgb 10.9 L, Hct 32.7 L, MCV 92.1, MCH 30.7, MCHC 33.3, RDW Std Deviation 46.1 H, RDW Coeff of Les 13.4, Plt Count 297,MPV 10.0, Immature Gran % (Auto) 0.600, Neut % (Auto) 78.4 H, Lymph % (Auto) 11.9 L, Fleming % (Auto) 8.5, Eos % (Auto) 0.3, Baso % (Auto) 0.3, Absolute Neuts (auto) 9.0 H, Absolute Lymphs (auto) 1.37, Nucleated RBC % 0, Sodium 134, Potassium 4.1, Chloride 96 L, Carbon Dioxide 27.0, Anion Gap 11, BUN 20 H, Creatinine 0.69 L, Estim Creat Clear Calc 79.90, Est GFR (MDRD) Non-Af 94, BUN/Creatinine Ratio 28.1 H, Glucose 247 H, Calcium 8.6 03/25/25 11:00: PT 15.1 H, INR 1.2 03/25/25 11:09: POC Glucose 352 H Micro: Microbiology 03/16/25 08:07 Swab (Method) Nasal Screen MRSA/MSSA - Final Physical Exam Const alert, oriented x3 and no apparent distress General Appearance: cooperative Extremity normal capillary refill Extremity Narrative: Right hip dressing clean dry intact compartment soft neurovasc intact right lower extremity EHL tibialis anterior gastrocsoleus intact sensation light touchpalpable pedal pulses Assessment & Plan Assessment/Plan (1) S/P total right hip arthroplasty: PLAN: Plan Postop day #1 right total hip arthroplasty PT OT weightbearing as tolerated with hip precautions Pain control oxycodone and Tylenol DVT prophylaxis Coumadin and Lovenox until INR therapeutic then DC Lovenox DC planning rehab versus TCU when bed available Dressing to be undisturbed for 7 days postop then remove prior to for shower andclean daily with antibacterial soap and warm water daily after dressing is removed with reapplication of dry dressing Follow-up in the office 2 weeks postop for wound check and staple removal if still in transitional care or rehab at the hospital I can see her there if notified. 03/25/25 1303 <Electronically signed by Jose Ramon Terry DO> Cosigner Signature (if applicable): CC: ~ Signed [facility] Work Phone: 1(862) 247-821909-03-2025 Progress note [facility] Medical Records Department [address] [place] [address] Progress Note - Orthopedic 03/25/25 1300 MR#: [id number] Acct: [id number] Name: ELSA BLUE Rep #:[id number] 1 : 1955 69 From: Jose Ramon Harrison RICHTER PCP: Dr. Meir Zepeda MD Status:ADM IN Location: [place] [id number] Subjective Subjective Seen and examined. Complaint of pain. Denies fevers chills nausea vomiting shortness of breath or chest pain she is sitting in the chair eating and comfortable family member at bedside. Objective Data Objective Data Vital Signs: Vital Signs Temp Pulse Resp BP Pulse Ox O2 Del Method O2 Flow Rate 99 F 81 18 143/54 H 92 Room Air 2 03/25/25 10:03/25/25 10:28 03/25/25 10:28 03/25/25 10:28 03/25/25 10:28 03/25/25 10:28 03/24/25 15:16 Oxygen Flow Rate (L/min) 2 Oxygen Delivery Method Room Air Weight: 225 lb 15.581 oz Body Mass Index (BMI) 37.5 Intake & Output: Intake and Output for Last 24 Hours 03/23/25 03/24/25 03/25/25 23:59 23:59 23:59 Intake Total 2764 / 2964 1070 / 1070 Output Total 150 / 150 Balance 2614 / 2814 1070 / 1070 Lab / Micro Data 03/25/25 06:39 03/25/25 06:39 Labs: Laboratory Results - last 24 hr 03/24/25 12:56: POC Glucose 196 H 03/24/25 18:01: POC Glucose 347 H 03/24/25 22:14: POC Glucose 250 H 03/25/25 06:23: POC Glucose 236 H 03/25/25 06:39: WBC 11.5 H, RBC 3.55 L, Hgb 10.9 L, Hct 32.7 L, MCV 92.1, MCH 30.7, MCHC 33.3, RDW Std Deviation 46.1 H, RDW Coeff of Les 13.4, Plt Count 297,MPV 10.0, Immature Gran % (Auto) 0.600, Neut % (Auto) 78.4 H, Lymph % (Auto) 11.9 L, Fleming % (Auto) 8.5, Eos % (Auto) 0.3, Baso % (Auto) 0.3, Absolute Neuts (auto) 9.0 H, Absolute Lymphs (auto) 1.37, Nucleated RBC % 0, Sodium 134, Potassium 4.1, Chloride 96 L, Carbon Dioxide 27.0, Anion Gap 11, BUN 20 H, Creatinine 0.69 L, Estim Creat ClearCalc 79.90, Est GFR (MDRD) Non-Af 94, BUN/Creatinine Ratio 28.1 H, Glucose 247 H, Calcium 8.6 03/25/25 11:00: PT 15.1 H, INR 1.2 03/25/25 11:09: POC Glucose 352 H Micro: Microbiology 03/16/25 08:07 Swab (Method) Nasal Screen MRSA/MSSA - Final Physical Exam Const alert, oriented x3 and no apparent distress General Appearance: cooperative Extremity normal capillary refill Extremity Narrative: Right hip dressing clean dry intact compartment soft neurovasc intact right lower extremity EHL tibialis anterior gastrocsoleus intact sensation light touchpalpable pedal pulses Assessment & Plan Assessment/Plan (1) S/P total right hip arthroplasty: PLAN: Plan Postop day #1 right total hip arthroplasty PT OT weightbearing as tolerated with hip precautions Pain control oxycodone and Tylenol DVT prophylaxis Coumadin and Lovenox until INR therapeutic then DC Lovenox DC planning rehab versus TCU when bed available Dressing to be undisturbed for 7 days postop then remove prior to for shower andclean daily with antibacterial soap and warm water daily after dressing is removed with reapplication of dry dressing Follow-up in the office 2 weeks postop for wound check and staple removal if still in transitional care or rehab at the hospital I can see her there if notified. 03/25/25 1303 Cosigner Signature (if applicable): CC: ~ Signed [facility]09-02-2025 Progress note Author Chino Masters [facility] Note Date/Time March 24, 2025 6:34pm [facility] Medical Records Department [address] [place] [address] Progress Note - Hospitalist 03/24/25 1679 MR#: [id number] Acct: [id number] Name: ELSA BLUE #:[id number] : 1955 69 From: Chino Masters DO PCP: Dr. Meir Zepeda MD Status:ADM IN Location: [facility] [id number] Subjective Subjective Patient was seen and examined today at the request of orthopedic surgery, she underwent a right hip replacement today due to degenerative joint disease of theright hip. 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 Objective Data Objective Data Vital Signs: Vital Signs Temp Pulse Resp BP Pulse Ox O2 Del Method O2 Flow Rate 99 F 82 18 143/53 H 96 Room Air 2 03/24/25 16:32 03/24/25 16:32 03/24/25 16:32 03/24/25 16:32 03/24/25 16:32 03/24/25 16:32 03/24/25 15:16 Oxygen Flow Rate (L/min) 2 Oxygen Delivery Method Room Air Weight: 102.5 kg Body Mass Index (BMI) 37.5 Intake & Output: Intake and Output for Last 24 Hours 03/22/25 03/23/25 03/24/25 23:59 23:59 23:59 Intake Total 1764 / 1764 Output Total 150 / 150 Balance 1614 / 1614 Lab / Micro Data Labs: Laboratory Results - last 24 hr 03/24/25 06:07: POC PT 16.0 H, INR 1.4 03/24/25 06:22: PT 12.9, INR 1.0 03/24/25 12:56: POC Glucose 196 H 03/24/25 18:01: POC Glucose 347 H Micro: Microbiology 03/16/25 08:07 Swab (Method) Nasal Screen MRSA/MSSA - Final Radiography Diagnostic Testing: Radiology Impression Hip X-Ray 03/24/25 10:34 IMPRESSION: Postoperative changes as above. Reading Location: [facility] Physical Exam Const alert, oriented x3 and no apparent distress General Appearance: cooperative, well kempt and well developed Orientation / Consciousness: awake, oriented to person, oriented to place and oriented to time HEENT normocephalic, head/scalp atraumatic and moist oral mucous membranes Eyes PERRL, EOMs intact bilaterally and conjunctivae normal Neck supple, no JVD, thyroid normal and no carotid bruits General: trachea midline Resp normal respiratory effort, no retractions, no use of accessory muscles and clearto auscultation bilaterally Auscultation: Negative for rales, rhonchi or wheezes Cardio regular rate, regular rhythm, S1 normal heart sound, S2 normal heart sound, no murmurs, no rub and no gallops GI normal to inspection, nondistended, normoactive bowel sounds, soft to palpation,non-tender and non-distended Extremity no clubbing, cyanosis or edema Skin no rashes or lesions noted General Skin Exam: no breakdown Neuro oriented x3, CN's II-XII intact bilaterally, moves all extremities, no focal motor deficits and no sensory deficits noted Sensorium / Orientation: awake and alert Speech: speech normal Psych affect normal Assessment & Plan Assessment/Plan (1) COPD (chronic obstructive pulmonary disease): QUALIFIERS: COPD type: unspecified COPD Qualified Code(s): J44.9 - Chronic obstructive pulmonary disease, unspecified PLAN: Plan 1. Type 2 diabetes-patient takes metformin at home, I will place her on slidingscale insulin per fingerstick blood sugars #2 chronic obstructive pulmonary disease-patient will be placed on as needed aerosol treatments #3 chronic depression-patient will remain on duloxetine #4 chronic use of anticoagulants due to past history of VTE-patient will resume her warfarin, INR will be rechecked tomorrow, patient is currently also on Lovenox until her INR becomes therapeutic #5 rheumatoid arthritis-complicates care, management, recovery, and prognosis #6 degenerative disc disease of the lumbar spine with lumbar radiculopathy- patient is on gabapentin #7 essential hypertension-patient will remain on her present medication #8 status post right hip replacement postop day 0-PT and OT will work with patient, she states her plan is to go to a alf facility for short-term rehab services. Total clinical time spent by myself addressing the patient's medical issues, reviewing all of her data, and collaborating with patient's care team: 35-minute Charges/Coding Visit Charges Inpatient E&M: 41171 Subs Hosp L2 03/24/25 5129 <Electronically signed by Chino Tereletsky DO> Cosigner Signature (if applicable): CC: ~ Signed [facility] Work Phone: 1(806) 275-147309-02-2025 Progress note [facility] Medical Records Department [address] [place] [address] Progress Note - Hospitalist 03/24/25 1826 MR#: [id number] Acct: [id number] Name: ELSA BLUE Rep #:[id number] : 1955 69 From: Chino Masters DO PCP: Dr. Meir Zepeda MD Status:ADM IN Location: [place] [address] Subjective Subjective Patient was seen and examined today at the request of orthopedic surgery, she underwent a right hipreplacement today due to degenerative joint disease of theright hip. Patient's past medical historyincludes type 2 diabetes, degenerative disc disease of the lumbar spine, COPD, rheumatoid arthritis, chronic depression, chronic use of anticoagulants due to past history of VTE, and lumbar radiculopathy. Objective Data Objective Data Vital Signs: Vital Signs Temp Pulse Resp BP Pulse Ox O2 Del Method O2 Flow Rate 99 F 82 18 143/53 H 96 Room Air 2 03/24/25 16:32 03/24/25 16:32 03/24/25 16:32 03/24/25 16:32 03/24/25 16:32 03/24/25 16:32 03/24/25 15:16 Oxygen Flow Rate (L/min) 2 Oxygen Delivery Method Room Air Weight: 102.5 kg Body Mass Index (BMI) 37.5 Intake & Output: Intake and Output for Last 24 Hours 03/22/25 03/23/25 03/24/25 23:59 23:59 23:59 Intake Total 1764 / 1764 Output Total 150 / 150 Balance 1614 / 1614 Lab / Micro Data Labs: Laboratory Results - last 24 hr 03/24/25 06:07: POC PT 16.0 H, INR 1.4 03/24/25 06:22: PT 12.9, INR 1.0 03/24/25 12:56: POC Glucose 196 H 03/24/25 18:01: POC Glucose 347 H Micro: Microbiology 03/16/25 08:07 Swab (Method) Nasal Screen MRSA/MSSA - Final Radiography Diagnostic Testing: Radiology Impression Hip X-Ray 03/24/25 10:34 IMPRESSION: Postoperative changes as above. Reading Location: [facility] Physical Exam Const alert, oriented x3 and no apparent distress General Appearance: cooperative, well kempt and well developed Orientation / Consciousness: awake, oriented to person, oriented to place and oriented to time HEENT normocephalic, head/scalp atraumatic and moist oral mucous membranes Eyes PERRL, EOMs intact bilaterally and conjunctivae normal Neck supple, no JVD, thyroid normal and no carotid bruits General: trachea midline Resp normal respiratory effort, no retractions, no use of accessory muscles and clearto auscultation bilaterally Auscultation: Negative for rales, rhonchi or wheezes Cardio regular rate, regular rhythm, S1 normal heart sound, S2 normal heart sound, no murmurs, no rub and no gallops GI normal to inspection, nondistended, normoactive bowel sounds, soft to palpation,non-tender and non-distended Extremity no clubbing, cyanosis or edema Skin no rashes or lesions noted General Skin Exam: no breakdown Neuro oriented x3, CN's II-XII intact bilaterally, moves all extremities, no focal motor deficits and no sensory deficits noted Sensorium / Orientation: awake and alert Speech: speech normal Psych affect normal Assessment & Plan Assessment/Plan (1) COPD (chronic obstructive pulmonary disease): QUALIFIERS: COPD type: unspecified COPD Qualified Code(s): J44.9 - Chronic obstructive pulmonary disease, unspecified PLAN: Plan 1. Type 2 diabetes-patient takes metformin at home, I will place her on slidingscale insulin per fingerstick blood sugars #2 chronic obstructive pulmonary disease-patient will be placed on as needed aerosol treatments #3 chronic depression-patient will remain on duloxetine #4 chronic use of anticoagulants due to past history of VTE-patient will resume her warfarin, INR will be rechecked tomorrow, patient is currently also on Lovenox until her INR becomes therapeutic #5 rheumatoid arthritis-complicates care, management, recovery, and prognosis #6 degenerative disc disease of the lumbar spine with lumbar radiculopathy- patient is on gabapentin #7 essential hypertension-patient will remain on her present medication #8 status post right hip replacement postop day 0-PT and OT will work with patient, she states her plan is to go to a alf facility for short- term rehab services. Total clinical time spent by myself addressing the patient's medical issues, reviewing all of her data, and collaborating with patient's care team: 35-minute Charges/Coding Visit Charges Inpatient E&M: 40125 Subs Hosp L2 03/24/25 1834 Cosigner Signature (if applicable): CC: ~ Signed [facility]09-02-2025 Consult note Author Jasmin Diaz [facility] Note Date/Time March 27, 2025 1:23pm [facility] Medical Records Department [address] [place] [address] Anesthesia Postop Eval II 03/24/25 1436 MR#: [id number] Acct: [id number] Name: ELSA BLUE Rep #:[id number] : 1955 69 From: Jasmin Diaz CRNA PCP: Dr. Meir Zepeda MD Status:ADM IN Y Race: C Location: [facility] [id number] -1 Anesthesia Postop Eval I Sum Postop Eval Completion status Anesthesia document: Postop Eval 1 completed: Yes Anesthesia Postop Eval I Summary Anesthesia Postop Eval I Summary: Anesthesia Postop Eval I: Assessment Summary 3 Airway patent Yes 03/24/25 10:18 PLUNGER SHOVEL [email or web address] Spontaneous unlabored Yes 03/24/25 10:18 PLUNGER SHOVEL [email or web address] respirations Mental status nausea No 03/24/25 10:18 PLUNGER SHOVEL [email or web address].[email or web address] Vomiting No 03/24/25 10:18 PLUNGER SHOVEL [email or web address] Anesthesia Postop Eval I: Fluid Summary Crystalloid volume administer 1,600 03/24/25 10:18 PLUNGER SHOVEL [email or web address].[email or web address] (ml) Colloids volume administered ( ml) Blood Product volume administered (ml) Total IV fluid infused 1,600 03/24/25 10:18 PLUNGER SHOVEL [email or web address].[email or web address] Anesthesia Postop Eval I: Summary Notes Anesthesia Complication No 03/24/25 10:18 PLUNGER SHOVEL [email or web address].[email or web address] Anesthesia Complication Comment: Post-operative progress note Anesthesia: Postop Eval II Evaluation Mental status: Awake Pain Level: 4 nausea: No Vomiting: No 03/24/25 1436 <Electronically signed by Jasmin Sirc a PLUNGER SHOVEL OPERATOR> Date _ Jasmin Sirca PLUNGER SHOVEL OPERATOR Cosigner Signature: Date CC: ~ Signed [facility] Work Phone: 1(173) 669-386309-02-2025 Consult note Author Jim Maya [facility] Note Date/Time March 24, 2025 10:19[facility] Medical Records Department [address] [place] [address] Anesthesia Postop Eval I 03/24/25 1018 MR#: [id number] Acct: [id number] Name: ELSA BLUE Rep #:[id number] : 1955 69 From: Jim AUSTIN PCP: Dr. Meir Zepeda MD Status:ADM IN Y Race: C Location: [place] [address] Anesthesia: Postop Eval I Current Vital Signs Temperature: 97.1 F Pulse Rate: 95 Blood Pressure: 139/82 Respiratory Rate: 18 Pulse Ox: 98 Assessment Airway patent: Yes Spontaneous unlabored respirations: Yes nausea: No Vomiting: No Anesthesia Complication: No Fluid Hydration Crystalloid volume administer (ml): 1,600 Total IV fluid infused: 1,600 Progress Note Anesthesia document: Postop Eval 1 completed: Yes 03/24/25 1019 <Electronically signed by Jim Maya CRNA> Date _ Jim Maya PLUNGER SHOVEL OPERATOR Cosigner Signature: Date CC: ~ Signed [facility] Work Phone: 1(166) 195-613109-02-2025 Radiology Diagnostic study note [facility] Imaging Services [address] [place], [place] [address] Hip Min 2 Views (Portable) MR#: [id number] Acct: [id number] Name: ELSA BLUE Rep #: [id number] : 1955 F 69 From: Candice Rueda MD PCP: Dr. Meir Zepeda MD Status: ADM IN Study:Hip Min 2 Views (Portable) Date of Exam : 03/24/25 Exam# [id number] Ordering Dr: Jose Ramon Terry DO EXAM: XR Right Hip With Pelvis When Performed, 1 View CLINICAL INDICATION: POST OP TECHNIQUE: Frontal view of the right hip with pelvis when performed. COMPARISON: No relevant prior studies available. FINDINGS: BONES/JOINTS: Total right hip replacement. Intact hardware. Anatomic position. No acute fracture. No dislocation. SOFT TISSUES: Soft tissue swelling and emphysema. RAD/Hip Min 2 Views (Portable) IMPRESSION: Postoperative changes as above. Reading Location: [facility] CC: Dr. Meir Zepeda MD; Dr. Jose Ramon Terry DO ~ Clean Room Assembler: Signed [facility]09-02-2025 Procedure note [facility] Medical Records Department [address] [place] [address] Operative Report 03/24/25 1030 MR#: [id number] Acct: [id number] Name: ELSA BLUE Rep #:[id number] : 1955 69 From: Jose Ramon Terry DO PCP: Dr. Meir Zepeda MD Status:ADM IN [id number] Report (Standard) Operative Information Date of Procedure: 03/24/25 Pre-Operative Diagnosis: Right hip DJD Post-Operative Diagnosis: Same Surgery/Procedure Performed: Right total hip arthroplasty associate scientist: Yes Regional Environmental Manager: Jose L Lopez Tasks completed by radiology practitioner assistant: Opening & closing and Implanting device Type of Anesthesia: Spinal RN Documented Start/Stop Times: Operation Date: 03/24/25 07:30 Case Time Into Pre-Op 03/24/25 05:51 Out of Pre-Op 03/24/25 07:25 Anesthesia Start 03/24/25 07:35 Into Room 03/24/25 07:35 Procedure Start 03/24/25 08:15 Procedure End 03/24/25 10:05 Anesthesia End 03/24/25 10:13 Out of Room 03/24/25 10:13 Procedure Start Time: 08:15 Procedure Stop Time: 10:05 Select all DRAINS/GRAFTS/IMPLANTS that apply: Implanted device Implanted device details: [place] Estimated Blood Loss: 125 Specimen collected: Yes Description of specimen(s) removed: Femoral head Description of surgery: Preoperative diagnosis: Right hip DJD Postoperative diagnosis: Same Procedure: CT-guided Makoplasty assisted right total hip arthroplasty Implants: [place] Accolade II stem size [5], 132 degree neck angle -4 head neck length 50 mm Trident II acetabular shell with 40 mm cancellous screw 32mm [ceramic] head, 10 degree Trident X3 polyethylene insert. Anesthesia: [Spinal] EBL: 125 cc Complications: None Condition: Stable to PACU [Telephone Operators Supervisor Jose L Lopez. My physician residential assistant was a vital part of this case. He was important in appropriate retraction during the case, and protection of soft tissues during procedure. His intimate knowledge of the case and my steps aided in safe and expedient completion of the procedure as wellas appropriate position of the extremity during the case. He was also vital in assisting with closure under my direct supervision.] Indication for procedure: This is a 69-year-old female who has had long- standingarthrosis of the hip who has failed conservative treatment and wished to undergototal hip arthroplasty. We did discuss operative versus nonoperative intervention including risks of bleeding, infection , nerve artery tissue damage, need for further surgery, fracture, leg length discrepancy dislocation blood clot and need for postoperative physical therapy and postoperative expectations. An informed consent was signed. Procedure: Patient was met in the preoperative holding area once again the operative extremity was identified by both patient and physician and was marked. Patient was met by anesthesia . Anesthesia was started. patient was then positioned in the lateral decubitus position on a well-padded pegboardwith an axillary roll. All bony prominences were checked and padded. The patient was prepped and draped in the usual sterile fashion. A timeout was called to ensurethe proper patient procedure and extremity were being contemplated. Anatomic landmarks were palpated and marked for a standard posterior lateral approach. Prior to this the ASIS was palpated and 3 fingerbreadths proximal to this 3 pinswere placed at a 45 degree angle into the iliac crest with good purchase, stab incisions were made with a 15 blade into the skin prior to placement. The Makoplasty array was then secured. A 10 blade scalpel was used to make a posterior incision through the skin and subcutaneous tissue. retractors were used and electrocautery was used to maintain meticulous hemostasis and dissect full-thickness flaps until the gluteal fascia was reached. The gluteal fascia was incised in line with the gluteal fibers. The bursal tissue was then freed from the underside and a Charnley retractor was placed. The femoral trochanteric checkpoint was placed and leg length was assessed using the trochanteric checkpoint and an EKG lead that was placed on the knee prior to prepping the leg .the fat pad was then elevated off of the external rotators with electrocautery and the external rotators were dissected off ofthe greater trochanter including the piriformis and were tagged with #1 Ethibond for later repair. The joint capsule opened with posterior trapdoor technique. The hip was surgically dislocated. The measurement on the preoperative CT from the top of the lesser trochanter to the femoral neck cut was marked Hohmann was placed around the lesser trochanter. A neck cutting guide was used to chino the neck with a Bovie and an oscillating saw was used complete the femoral neck cut. Thefemoral head was then removed and sized. We then turned our attention to the acetabulum. A Bovie was used to make a perforation in the anterior joint capsule and a Hampton retractor was placed this was repeated in the 6 o'clock position and a wide johnny was placed there. With a long handled knife the labral and pulvinar tissue were removed. We then registered the acetabulum withthe pointing array and confirmed our landmarks. Once the socket was thoroughlyprepared and labral tissue and pulvinar was removed we single reamed with the robotic arm. We then used the robotic arm to position the acetabular implant and impacted it into place under robotic guidance. [We then proceeded to place a posterior superior screw by drilling first measuring and inserting the screw]. We then inserted a trial liner. And turned our attention back to the femur at this point a femoral elevator was used. As well as a pointed wide Hohmann around the lesser trochanter and a Hohmann to help retract the gluteus medius. A box chisel was used to remove excess lateral neck followed by a canal finder and a lateralizing reamer. This was followed by sequential broaches. Attentionwas made of the version within the canal based on preoperative templating. Oncethe final broach was seated we then trialed reduced the hip it was determinedthat a 132 degree neck angle with a -4 neck length was the appropriate size. Jose Alfredo checked stability with shuck testing as well as flexion and internal rotation. then proceeded with hip extension and checked leg lengths at the knees and heels as well as with the trochanteric checkpoint and knee EKG lead. At this point trials were removed. A liner was inserted to the cup. The femoral stem was inserted. We re-trialed and then proceeded to impact the femoral head onto the López taper. We then surgically reduce the hip check stability again and leg lengths and were satisfied. Betadine rinse wasallowed to sit for 5 minutes while everyone changed their gloves. Thorough irrigation was performed. Followed by closure of the external rotators with #2 FiberWire followed by closure of gluteal fascia with #1 Ethibond. 0 Vicryl fat stitches and 2-0 Vicryl subcutaneous stitches and zeina in the skin. Zeina were placed in the skin pin sites over the iliac crest and dressed with a Mepilex dressing. The main incision was dressed with a Mepilex ag dressing and an abduction pillow was placed. Patient tolerated the procedure well there was no intraoperative complications all counts were correct and the patient was broughtback to the PACU in stable condition Surgical Findings: DJD hip Complications Complications: No 03/24/25 1032 Cosigner Signature (if applicable): CC: Dr. Meir Zepeda MD; Dr. Juarez Muñoz MD; Dr. Jose Ramon Terry DO~ Signed [facility]09-02-2025 Consult note [facility] Medical Records Department [address] [place] [address] Anesthesia Postop Eval I 03/24/25 1018 MR#: [id number] Acct: [id number] Name: ELSA BLUE Rep #:[id number] : 1955 69 From: Jim AUSTIN PCP: Dr. Meir Zepeda MD Status:ADM IN Y Race: C Location: [place] [address] Anesthesia: Postop Eval I Current Vital Signs Temperature: 97.1 F Pulse Rate: 95 Blood Pressure: 139/82 Respiratory Rate: 18 Pulse Ox: 98 Assessment Airway patent: Yes Spontaneous unlabored respirations: Yes nausea: No Vomiting: No Anesthesia Complication: No Fluid Hydration Crystalloid volume administer (ml): 1,600 Total IV fluid infused: 1,600 Progress Note Anesthesia document: Postop Eval 1 completed: Yes 03/24/25 1019 PLUNGER SHOVEL OPERATOR> Date _ Jim Maya PLUNGER SHOVEL OPERATOR Cosigner Signature: Date CC: ~ Signed [facility]09-02-2025 History and physical note Author [facility] Note Date/Time March 24, 2025 7:18am [facility] Medical Records Department [address] [place] [id number] History & Physical Exam 03/24/25 0716 MR#: [id number] Acct: [id number] Name: ELSA BLUE Rep #:[id number] : 1955 69 From: Jose Ramon Terry DO PCP: Dr. Meir Zepeda MD Status:ADM IN Location: [place] [address] History and Physical Date of Admission: 03/24/25 [facility] [address] [place], [place] [id number] OFFICE VISIT Date of Service: 02/25/25 MR#: [id number] Acct: [id number] Name: DELGADOIMANI MONTESE Rep #: [id number] : 1955 Provider: Dr. Jose Ramon Terry DO Age/Sex: 69/F Location: [facility] Status: Signed Intake Vital Signs 11/21/2509:15 01/29/2510:48 02/25/2509:53 Height 5 ft 5 in 5 ft 5 in 5 ft 5 in Weight: 223 lb BMI 37.0 Intake Visit Reasons: RIGHT HIP Chief Complaint: Allergies amoxicillin Allergy (Mild, Verified 02/25/25 09:55) rashatorvastatin Adverse Reaction (Mild, Verified 02/25/25 09:55) myalgiiaslevofloxacin (From Levaquin) Adverse Reaction (Unknown, Verified 02/25/25 09:55) Nausea Medications ?Medication ?Instructions ?Recorded ?Confirmed ?Type ferrous sulfate 325 mg (65 mg 325 mg PO BID SUPPLEMENT 02/11/14 History iron) tablet multivitamin with folic acid 400 1 tab PO DAILY SUPPLEMENT 02/11/1402/25 History mcg tablet trazodone 50 mg tablet 50 mg PO QHS SLEEP 02/11/14 02/25/25 His tory Held on 04/27/23. Instructions: MD Ordered biotin 10,000 mcg capsule 10,000 mcg PO DAILY HAIR LOSS 05/30/21 0 02/25/25 History buspirone 5 mg tablet 5 mg PO TID PRN anxiety 05/30/21 5 History calcium 600 mg (as 1 cap PO BID 05/30/21 02/25/25 History carbonate)-vitamin D3 12.5 mcg (500 unit) capsule (Calcium with Vit D3) tramadol 50 mg tablet 50 mg PO Q6H PRN Pain Score 6-10 3 02/25/25 Rx Held on 04/27/23. #25 tabs Instructions: Ordered hydroxychloroquine 200 mg tablet 200 mg PO BID 01/18/24 02/25/25 History loratadine 10 mg tablet 10 mg PO QDAY PRN sinus 08/01/24 5 Rx symptoms/ear pressure #90 tabs gabapentin 300 mg capsule 300 mg PO TID 10/06/24 02/25/25 History lisinopril 20 1 tab PO QDAY 10/06/24 02/25/25 History mg-hydrochlorothiazide 12.5 mg tablet metformin 1,000 mg tablet 1,000 mg PO BID 10/06/24 02/25/25 Histor y warfarin 5 mg tablet (Jantoven) 10 mg PO DAILY 10/06/24 02/25/25 History cyclobenzaprine 10 mg tablet 10 mg PO TID PRN Muscle Spasm #20 02/25/25 Rx TABLETS duloxetine 30 mg capsule,delayed 30 mg PO QPM #90 caps 01/29/25 02/25/25 Rx release duloxetine 60 mg capsule,delayed 60 mg PO QAM #90 caps 01/29/25 02/25/25 Rx release (Cymbalta) meclizine 25 mg tablet 25 mg PO BID PRN dizziness #180 01/30/25 02/25/25 Rx tabs ropinirole 2 mg tablet 2 mg PO .COMPLEX #180 tabs 01/30/2501/14 Rx tizanidine 4 mg tablet See Rx Instructions .Route 01/30/25 02/25/25 Rx .COMPLEX muscle spasticity/leg restlessness #180 tabs methotrexate sodium 2.5 mg tablet 2.5 mg PO 02/25/25 02/25/25 History Have you fallen in the past year?: Yes PFSH Medical History (Updated 02/25/25 @ 10:09 by Alyssa Tolentino) Hx pulmonary embolism Fibromyalgia Rheumatoid arthritis Contact with or exposure to other viral diseases Preop testing Post-menopausal Wears glasses Depression Anemia Pulmonary embolism DVT (deep venous thrombosis) History of ulceration CPAP (continuous positive airway pressure) dependence Sleep apnea Former smoker Shortness of breath on exertion Leg cramps History of edema History of stress test (~04/06/20) Hypoxia Pneumonia Right hip pain History of [...] History Status post biopsy of thyroid gland (~08/2019) History of colonoscopy (~2014) History of dilation and curettage History of carpal tunnel release of both wrists Status post panniculectomy History of [place]-en-Y gastric bypass History of umbilical hernia repair Family History Mother Heart disease HypertensionFather Heart disease CVA (cerebral vascular accident)Brother Cancer Social History household members: spouse housing: [...] made by me, Dr. Jose Ramon Terry, DO 02/25/25 0812. Part of today?s visit was documented by Zuri TYLER, acting as scribe. ELSA BLUE is a 69 year old F here today for continue right hip pain particularly in her groin. She would like to talk about surgery as she is ready to proceed with a hip replacement. She did do the aquatic therapy and has started going swimming twice a week doing the exercises they taught her in therapy. She does have a hx of DVT and PE. Her PE was in 2007 but she is unable to recall when her last DVT was. Her last A1C was done 1 week ago and was 6.5 according to patient but I do not have these results. She does take methotrexate Plaquenil tramadol tizanidine gabapentin cyclobenzaprine 11/21/2024 visit: here today for continued right hip pain. Her pain now is in the groin and in her glute. Last visit it was more in the trochanteric bursa she isnot having much lateral sided pain now. she Dr. Johnson on 11/07/24 and she statesthat he told her she should get her hip taken care of first before he will do anything with her back. She would like to talk about doing another injection in the hip because she is going on a vacation in about a week. She would like to also talk about a hip replacement. It is affecting her quality of life she knows that she is overweight and in poor physical condition. Plan:Patient is here today for continued right hip pain. I obtained and reviewedxrays today and her hip arthrosis has progressed , does show severe arthritis ofthe right hip which has progressed since her last xray. Her treatment options are do nothing, weight loss, physical therapy, or a DUNCAN. She is unable to take NSAIDs secondary to her taking Coumadin. Risks, benefits and alternatives of surgery reviewed including but not limited to bleeding, infection, nerve, foot drop, artery and/or tissue damage, fracture, VTE, leg length discrepancy, dislocation, need for hip precautions, continued pain and expected post-operative course. She does have a history of a DVT many years ago in her right leg as she also does have a history of a PE. She will start her Coumadin right after surgery and will also likely be on Lovenox bridge until her INR up, however we will coordinate this with her primary care physician her INR will need to be less than 1.5 to proceed with surgery. She should avoid getting any injection into the hip for 3 months before surgery. Patient requested and I will send an order for aquatic therapy to [facility] for her to start after hervacation for her right hip . She will call our office after therapy to let us know when she would like to proceed with the hip replacement. 01/18/2024 visit:68 year old F here today for follow-up on her right hip last seen December 2022 at which time we recommended physical therapy for her hip osteoarthritis. Patient has well-known lumbar pathology for which she sees Dr. Anna she does have a L5-S1 disc herniation as well as significant lumbar stenosis with associated neurogenic claudication she was recently sent to physical therapy for this by spine surgery. Patient is here for right hip pain for a few months, She states that she has been doing aqua therapy for her low back and feels like that has been flaring upher hip. She has pain over her lateral hip and groin. She does have low back pain that she sees Dr. Johnson for. She denies radiating pain. She does have some numbness in her foot and ankle but notes that she has neuropathy. She states that her lateral hip is tender to touch. She takes Tylenol fir the pain along with she does have some tramadol but it doesn't seem to relieve her pain. 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 She denies any previous injury. She did do PT for the hip last year which did help but discontinued it due to health issues. She has had an injection many years ago with Dr. Johnson. She also c/o left calf pain/claudication with walking. In the calf she denies redness or tenderness to the calf. She has pain in the calf whenever she is up and walking. Plan: X-rays were reviewed. There is no obvious fracture, dislocation, or lucency noted. Spoke with patient that her hip arthritis hasn't progressed sinceher last x-ray last year. Spoke with patient that her groin pain is coming from the arthritis in her hip and the tenderness on the laterl hip is from the bursa in the hip which can be relieved with stretching/physical therapy and injectionsand weight loss. Her treatment options are do nothing, stretching the IT band, weight loss, injections, or a hip replacement. Patient wished to proceed and did receive a right hip trochanteric bursal injection today which she tolerated well she also requests referral to pain management for her left lower extremity claudication and known lumbar stenosis. Ortho Exam General General: Yes no acute distress Neurologic: Yes alert and Yes oriented x3 Psychologic: Yes reasonable and appropriate Right Hip Skin: No Ecchymosis, No soft tissue swelling and No Erythema internal rotation @90 degree flexion: 0 degrees external rotation @90 degree extension: 25 degrees Special Tests: No iliopsoas snap, No IT band snap and Yes TTP Greater Troch HIP: She does have groin pain with hip range of motion She is morbidly obese. 5-5 hip abduction and adduction without pain against resistance Constitutional: Well-developed; well-nourished; in no acute distress Eyes: No jaundice ENT: Nares patent; no obvious deformity Cardiovascular: No cyanosis; clubbing; or edema Lymphatic: No adenopathy in area of examination Skin: No rashes or lesions in the area of examination and intact Neurologic: Alert and oriented x 3 Psychiatric: Mood and affect appropriate Supplemental Info 11/21/2024 x-ray right hip: Severe joint space narrowing superiorly subchondral sclerosis advanced hip arthrosis 11/07/2024 x-ray lumbar spine: L2-L3 moderate to space narrowing with degenerative endplate changes, L3-L4 moderate disc space narrowing with degenerative endplate changes. Spondylosis and discogenic change of L5-S1. 01/18/2024 x-ray right hip: There is joint space narrowing superior medial there is osteophyte formation 12/25/2022 x-ray right hip: there is mild superior joint space narrowing and spurring 06/08/2022 x-ray lumbar spine: Scoliosis and degenerative changes with probable multilevel spinal stenosis This may be further assessed with CT or MRI if indicated , degenerative disc disease most severe L5-S1 multilevel facet arthrosis. 06/08/2022 x-ray right hip: there is mild superior joint space narrowing and spurring, Coding Level of Care Code Off vis,est,level 4 Diagnoses Primary osteoarthritis of right hip M16.11 Class 2 obesity without serious comorbidity with body mass index (BMI) of 39.0 to 39.9 in adult, unspecified obesity type E66.9; Z68.39 Obesity type: unspecified obesity type Obesity classification: adult class 2 (BMI 35 - 39.9) Serious obesity comorbidity presence: without serious comorbidity Body mass index: BMI 39.0-39.9 Polyneuropathy G62.9 Spinal stenosis of lumbar region with neurogenic claudication M48.062 Assessment and Plan Assessment and Plan (1) Primary osteoarthritis of right hip: Status: Acute (2) Obesity: Status: Acute Qualifiers: Obesity type: unspecified obesity type Obesity classification: adult class 2 (BMI 35 - 39.9) Serious obesity comorbidity presence: without serious comorbidity Body mass index: BMI 39.0-39.9 Qualified Code(s): E66.9 - Obesity,unspecified; Z68.39 - Body mass index [BMI] 39.0-39.9, adult (3) Polyneuropathy: Status: Chronic (4) Spinal stenosis of lumbar region with neurogenic claudication: Status: Acute Orders: Orders Venous Duplex US, Unilateral Today Z86.711 - Personal history of pulmonary embolism, Z86.718 - Personal history of other venous thrombosis and embolism Plan Patient is here today for continued right hip pain. Patient would like to proceed with a hip replacement. Patient is morbidly obese diabetic on narcotics history of pulmonary embolism DVT, her physically handicapped and cannot help her postoperatively. She needs to be an admission we will also request inpatient rehab for her. She has had DVT and pulmonary embolism after surgeries in the past, but is not sure if she ever had a Doppler ultrasound to confirm that her DVT had resolved. I would like to get bilateral lower extremity Doppler ultrasounds to make sure there is no current DVT. In addition she will need to have her Coumadin managed by her primary care physician to have her INR less than 1.5 the day of surgery I also need medical clearance and his recommendations on whether or not she should be bridged with Lovenox postoperatively. Her last A1c I have on record was over 7 however she states she had 1 recently that was 6.5 we will need to get copies of this. Risks, benefits and alternatives of surgery reviewed including but not limited to bleeding, infection, nerve, foot drop, artery and/or tissue damage, fracture, VTE, leg length discrepancy, dislocation, need for hip precautions, continued pain and expected post-operative course. I spoke with patient that since she does take Tramadol she will have a tolerance to narcotics so it might be harder for her to control her pain after surgery. She does also take methotrexate, we discussed the literature does recommend holding this medication as long as less than 20 mg/week however we do know that it does lower the immune system and she wishes to hold it pre and postoperatively to minimize her risk of perioperative infection. She should avoid getting any injection around the hip for 3 months before surgery. Tentative surgery date March 24, 2025 admission with plans for rehab. Follow up for 2 weeks post-op or sooner if pain, swelling, numbness or associated symptoms, or concerns develop. All questions answered. Patient in agreement of plan. Clinical Quality Measures Falls Risk Screening/Assistive Devices Have you fallen in the past year?: Yes 02/25/25 1039 <Electronically signed by Jose Ramon Terry DO> Date Jose Ramon Terry DO I have examined the patient and the H&P has been reviewed. There are no clinical changes since date of exam. 03/24/25 0718 <Electronically signed by Jose Ramon Terry DO> Cosigner Signature (if applicable): CC: Dr. Meir Zepeda MD; Dr. Jose Ramon Terry DO~ Signed [facility] Work Phone: 1(476) 162-768609-02-2025 Consult note Author Jim [facility] Note Date/Time March 24, 2025 7:12am [facility] Medical Records Department [address] [place] [address] Pre-Anesthesia Evaluation 03/24/25 0708 MR#: [id number] Acct: [id number] Name: ELSA BLUE Rep #:[id number] : 1955 69 From: Jim AUSTIN PCP: Dr. Meir Zepeda MD Status:ADM IN Y Race: C Location: [place] [address] ASA Classification* ASA Classification ASA Classification: 3 Assessment & Plan Anesthesia* Anesthesia Assessment Anesthesia Assessment: Discussed sedation and/or anesthesia options, risks, benefits, and alternatives with patient/parents/legal guardian/POA. Questions invited. The patient/parents/legal guardian/POA seems to understand and agrees to proceedwith anesthesia plan. Reviewed the physical assessment, medical history, allergy history and patient home medications list prior to surgery/procedure/anesthetic and documented any changes. Performed airway and anesthesia risk assessments. Anesthesia Type Anesthesia Type: Spinal (General Backup) Anesthesia Focused Assessment* Temperature: 97.1 F Pulse Rate: 81 Blood Pressure: 117/89 Respiratory Rate: 18 Pulse Ox: 97 Airway Assessment Mouth opens: >3 cm Mallampati Score: III Labs Anesthesia Preop lab: CBC WBC 8.8 K/mm3 (4.4-11.0) 01/12/25 13:35 01/12/25 RBC 3.98 M/mm3 (4.2-5.4) L 01/12/25 13:35 01/12/25 Hgb 12.3 g/dL (12.0-15.0) 01/12/25 13:35 01/12/25 Hct 37.4 % (37-47) 01/12/25 13:35 01/12/25 Plt Count 311 K/mm3 (150-450) 01/12/25 13:35 01/12/25 CHEMISTRY Potassium 4.4 mmol/L (3.3-5.1) 02/19/25 11:31 02/19/25 Sodium 138 mmol/L (133-145) 02/19/25 11:31 02/19/25 Magnesium 1.9 mg/dL (1.5-2.2) 03/16/25 08:08 03/16/25 Phosphorus 3.4 mg/dL (2.5-4.9) 04/13/23 09:20 04/13/23 BUN 27 mg/dL (4-19) H 02/19/25 11:31 02/19/25 Creatinine 0.98 mg/dL (0.70-1.20) 02/19/25 11:31 02/19/25 Glucose 123 mg/dL (70-99) H 02/19/25 11:31 02/19/25 POC Glucose 177 mg/dL (74-106) H 01/25/23 11:36 01/25/23 TSH 0.814 uIU/mL (0.300-4.200) 09/29/24 13:11 03 COAG PT 12.9 SECONDS (11.7-14.9) 03/24/25 06:22 Pre-Assessment Diagnosis/Proposed Procedure Planned Operative Procedure(s): RIGHT TOTAL H IP ARTHROPLASTY Anesthesia History 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 When Was Last Pacemaker Check QUESTION #4 FULL TEXT: You/Your Family Experience fever (hyperthermia) with Anesthesia Last Oral Intake Last Oral intake: Last Oral Intake NPO since 03:00 03/24/25 06:36 Meds taken in AM with sips of Yes 03/24/25 06:36 water? Meds patient instructed to take am of surgery PONV PONV - labor supervisor: PONV - labor supervisor Female Yes 03/10/25 15:14 HX of Motion Sickness Yes 03/10/25 15:14 HX of N/V After Surgery No 03/10/25 15:14 Non-Smoker Yes 03/10/25 15:14 Duration of Surgery greater Yes 03/10/25 15:14 than 60 minutes Number of Risk Factors 4 03/10/25 15:14 PONV Score Severe Risk 03/10/25 15:14 Height & Weight Height & Weight: Anesthesia: Height & Weight Height 5 ft 5 in 03/24/25 06:36 Weight: 102.5 kg 03/24/25 06:36 Body Mass Index (BMI) 37.5 03/24/25 06:36 Respiratory Assessment Respiratory Assessment - labor supervisor: Respiratory Tract Infection Hx - labor supervisor Hx Respiratory Tract Infection No 03/10/25 15:14 STOP Sleep Apnea STOP Sleep Apnea - labor supervisor: STOP Sleep Apnea - labor supervisor Hx Hypertension Yes: CONTROLLED WITH MED 03/10/25 15:14 Hx Sleep Apnea Yes 03/10/25 15:14 CPAP Yes 03/10/25 15:14 BIPAP No 03/10/25 15:14 Do you snore loudly (louder than talking or can be heard Do you often feel tired/ fatigued/ sleepy during daytime? Has anyone observed you stop breathing during sleep? STOP Results Positive 03/10/25 15:14 QUESTION #5 FULL TEXT : Do you snore loudly (louder than talking or can be heard through closed doors)? 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 Specify any problems Hx of Preganancy in last 3 No 03/10/25 15:14 Months Nurse Filling Out Transfusion DSCHRIBER 03/10/25 15:14 & Questions: Date: 03/10/25 03/10/25 15:14 Time: 15:18 03/10/25 15:14 Patient unable to answer at this time (ie. confused, unrespo /Reproduction History /Reproductive History - labor supervisor: /Reproductive Hx- labor supervisor Hx Now No 03/10/25 15:14 Gestational Age (in weeks): EDC: Hx Hx Para Hx Section SAB No 03/10/25 15:14 Active Medications Active Medications: Current Medications Generic Name Dose Route Start Last Admin Trade Name Freq PRN Reason Stop Dose Admin Acetaminophen 1,000 mg 03/24/25 07:30 03/24/25 06:46 Acetaminophen 500 Mg Tablet PO 03/24/25 07:31 1,000 mg PREOP ONE Administration Dexamethasone Sodium Phosphate 10 mg 03/24/25 07:30 Dexamethasone 10 Mg/Ml Vial IV 03/24/25 07:31 INTRAOP ONE Gabapentin 600 mg 03/24/25 07:30 03/24/25 06:46 Gabapentin 600 Mg Tablet PO 03/24/25 07:31 600 mg PREOP ONE Administration Lactated Ringer's 1,000 mls @ 999 mls/hr 03/24/25 07:30 03/24/25 06:18 IV 03/24/25 08:30 999 mls/hr .Q1H1M DANYELL Administration Tranexamic Acid 2,000 mg/ 120 mls @ 280 mls/hr 03/24/25 07:30 Sodium Chloride IV 03/24/25 07:55 INTRAOP ONE Lactated Ringer's 1,000 mls @ 125 mls/hr 03/24/25 07:30 IV 03/24/25 15:29 .Q8H DANYELL Cefazolin Sodium 2 gm/ Sodium 110 mls @ 200 mls/hr 03/24/25 07:30 Chloride IV 03/24/25 08:02 INTRAOP ONE Magnesium Sulfate 2 gm/ 104 mls @ 208 mls/hr 03/24/25 07:30 03/24/25 06:18 Dextrose IV 03/24/25 07:59 208 mls/hr PREOP ONE Administration Insulin Human Lispro 1 - 6 unit 03/24/25 07:30 Insulin Lispro 100 Unit/Ml Insuln.Pen SC Q4H PRN PRN BG>/= 180, SEE PROTOCOL Protocol Scopolamine HBr 1 patch 03/24/25 07:30 03/24/25 06:46 Scopolamine 1mg/72hr Patch TD 03/24/25 07:31 1 patch PREOP ONE Administration [facility] Medical History (Updated 03/10/25 @ 15:33 by Gloria Coleman) Diabetes Ambulates with cane Fatty liver Restless legs Syncope Dietary restriction Chronic constipation Gastric reflux History of pain when walking History of GI bleed History of pneumonia Fibromyalgia Rheumatoid arthritis Post-menopausal Wears glasses Depression Anemia Pulmonary embolism DVT (deep venous thrombosis) CPAP (continuous positive airway pressure) dependence Former smoker Shortness of breath on exertion Leg cramps History of edema History of stress test (~04/06/20) Hypoxia Right hip pain History of iron deficiency Fatigue Claustrophobia Mild cognitive impairment Peripheral vestibulopathy Encounter for screening for COVID-19 Cerebrovascular small vessel disease Cerebral convexity meningioma Neuropathy High cholesterol Glaucoma Cervical radiculitis HTN (hypertension) Renal calculus, bilateral Home Medications ?Medication ?Instructions ?Recorded ?Last Taken ?Type ferrous sulfate 325 mg (65 mg 325 mg PO BID SUPPLEMENT 02/11/14 03/23/25 History iron) tablet multivitamin with folic acid 400 1 tab PO DAILY SUPPLE MENT 02/11/14 03/23/25 History mcg tablet trazodone 50 mg tablet 100 mg PO QHS SLEEP 02/11/14 03/23/25 History Held on 04/27/23. Instructions: Ordered biotin 10,000 mcg capsule 10,000 mcg PO DAILY HAIR LOS S 05/30/21 03/23/25 History calcium 600 mg (as 1 cap PO BID SUPPLEMENT 03/1203/23/25 History carbonate)-vitamin D3 12.5 mcg (500 unit) capsule (Calcium with Vit D3) tramadol 50 mg tablet 50 mg PO Q6H PRN Pain Score 6-10 01/25/23 Unknown Rx Held on 04/27/23. #25 tabs Instructions: Ordered hydroxychloroquine 200 mg tablet 200 mg PO BID OA 12/2203/24/25 History gabapentin 300 mg capsule 300 mg PO BID PAIN 10/06/24 03/23/25 History lisinopril 20 1 tab PO QDAY BP 10/06/24 History mg-hydrochlorothiazide 12.5 mg tablet metformin 1,000 mg tablet 1,000 mg PO BID DIABETES 03/23/25 History warfarin 5 mg tablet (Jantoven) 10 mg PO SUTUWETHSA BL OOD THINNER 10/06/24 03/19/25 History duloxetine 30 mg capsule,delayed 30 mg PO QPM DEPRESSI ON #90 caps 01/29/25 03/23/25 Rx release duloxetine 60 mg capsule,delayed 60 mg PO QAM DEPRESSI ON #90 caps 01/29/25 03/24/25 Rx release (Cymbalta) meclizine 25 mg tablet 25 mg PO BID PRN dizziness # 180 01/30/25 Unknown Rx tabs methotrexate sodium 2.5 mg tablet 20 mg PO SA OA 02/2502/21/25 History CPAP - Continuous Positive Airway 03/10/25 Unknown Hi story Pressure([facility] INFORMATIONAL USE ONLY) omeprazole 20 mg capsule,delayed 20 mg PO DAILY GERD 0 03/10/25 03/24/25 History release ropinirole 2 mg tablet 2 mg PO 1700 RLS 03/10/25 History ropinirole 2 mg tablet 2 mg PO QHS RLS 03/10/2508/16 History tizanidine 4 mg tablet 8 mg PO QHS muscle spasticit y/leg 03/10/25 03/23/25 History restlessness warfarin 4 mg tablet 8 mg PO MOFR BLOOD THINNER 0 03/10/25 03/19/25 History Allergy/AdvReac Type Severity Reaction Status Date / Time amoxicillin Allergy Mild rash Verified 03/24/25 06:17 atorvastatin AdvReac Mild myalgiias Verified 03/24/25 06:17 levofloxacin (From Levaquin) AdvReac Unknown Nausea Verified 03/24/25 06:17 Family History Mother Heart disease Hypertension Father Heart disease CVA (cerebral vascular accident) Brother Cancer Surgical History (Updated 03/10/25 @ 15:33 by Gloria Coleman) Hx of superior vena cava filter placement History of cystoscopy Status post biopsy of thyroid gland (~08/2019) History of colonoscopy (~2014) History of dilation and curettage History of carpal tunnel release of both wrists Status post panniculectomy History of [place]-en-Y gastric bypass History of umbilical hernia repair Social History household members: spouse housing: house [...] do you feel safe at home: Yes Review of Systems (Anesthesia) ROS Narrative System reviewed and no additional complaints, except as documented. 03/24/25711 <Electronically signed by Jim Maya CRNA> Date _ Jim Maya CRNA Cosigner Signature: Date CC: ~ Signed [facility] Work Phone: [phone] History and physical note [facility] Medical Records Department [address] [place] [id number] History & Physical Exam 03/24/25715 MR#: [id number] Acct: [id number] Name: ELSA BLUE Rep #:[id number] : 1955 69 From: Jose Ramon Terry DO PCP: Dr. Meir Zepeda MD Status:ADM IN Location: [facility] A1 History and Physical Date of Admission: 03/24/25 [facility] [address] [place], [place] [address] OFFICE VISIT Date of Service: 02/25/25 MR#: [id number] Acct: [id number] Name: ELSA BLUE Rep #: [id number] : 1955 Provider: Dr. Jose Ramon Terry DO Age/Sex: 69/F [place] [facility] Status: Signed Intake Vital Signs 11/21/2509:15 01/29/2510:48 02/25/2509:53 Height 5 ft 5 in 5 ft 5 in 5 ft 5 in Weight: 223 lb BMI 37.0 Intake Visit Reasons: RIGHT HIP Chief Complaint: Allergies amoxicillin Allergy (Mild, Verified 02/25/25 09:55) rashatorvastatin Adverse Reaction (Mild, Verified 02/25/25 09:55) myalgiiaslevofloxacin (From Levaquin) Adverse Reaction (Unknown, Verified 02/25/25 09:55) Nausea Medications ?Medication ?Instructions ?Recorded ?Confirmed ?Type ferrous sulfate 325 mg (65 mg 325 mg PO BID SUPPLEMENT 02/11/14 History iron) tablet multivitamin with folic acid 400 1 tab PO DAILY SUPPLEMENT 02/11/1402/25 History mcg tablet trazodone 50 mg tablet 50 mg PO QHS SLEEP 02/11/14 02/25/25 His tory Held on 04/27/23. Instructions: MD Ordered biotin 10,000 mcg capsule 10,000 mcg PO DAILY HAIR LOSS 05/30/21 0 02/25/25 History buspirone 5 mg tablet 5 mg PO TID PRN anxiety 05/30/21 5 History calcium 600 mg (as 1 cap PO BID 05/30/21 02/25/25 History carbonate)-vitamin D3 12.5 mcg (500 unit) capsule (Calcium with Vit D3) tramadol 50 mg tablet 50 mg PO Q6H PRN Pain Score 6-10 3 02/25/25 Rx Held on 04/27/23. #25 tabs Instructions: Ordered hydroxychloroquine 200 mg tablet 200 mg PO BID 01/18/24 02/25/25 History loratadine 10 mg tablet 10 mg PO QDAY PRN sinus 08/01/24 5 Rx symptoms/ear pressure #90 tabs gabapentin 300 mg capsule 300 mg PO TID 10/06/24 02/25/25 History lisinopril 20 1 tab PO QDAY 10/06/24 02/25/25 History mg-hydrochlorothiazide 12.5 mg tablet metformin 1,000 mg tablet 1,000 mg PO BID 10/06/24 02/25/25 Histor y warfarin 5 mg tablet (Jantoven) 10 mg PO DAILY 10/06/24 02/25/25 History cyclobenzaprine 10 mg tablet 10 mg PO TID PRN Muscle Spasm #20 02/25/25 Rx TABLETS duloxetine 30 mg capsule,delayed 30 mg PO QPM #90 caps 01/29/25 02/25/25 Rx release duloxetine 60 mg capsule,delayed 60 mg PO QAM #90 caps 01/29/25 02/25/25 Rx release (Cymbalta) meclizine 25 mg tablet 25 mg PO BID PRN dizziness #180 01/30/25 02/25/25 Rx tabs ropinirole 2 mg tablet 2 mg PO .COMPLEX #180 tabs 01/30/25 0801/14 Rx tizanidine 4 mg tablet See Rx Instructions .Route 01/30/25 02/25/25 Rx .COMPLEX muscle spasticity/leg restlessness #180 tabs methotrexate sodium 2.5 mg tablet 2.5 mg PO 02/25/25 02/25/25 History Have you fallen in the past year?: Yes PFSH Medical History (Updated 02/25/25 @ 10:09 by Alyssa Tolentino) Hx pulmonary embolism Fibromyalgia Rheumatoid arthritis Contact with or exposure to other viral diseases Preop testing Post-menopausal Wears glasses Depression Anemia Pulmonary embolism DVT (deep venous thrombosis) History of ulceration CPAP (continuous positive airway pressure) dependence Sleep apnea Former smoker Shortness of breath on exertion Leg cramps History of edema History of stress test (~04/06/20) Hypoxia Pneumonia Right hip pain History of [...] History Status post biopsy of thyroid gland (~08/2019) History of colonoscopy (~2014) History of dilation and curettage History of carpal tunnel release of both wrists Status post panniculectomy History of [place]-en-Y gastric bypass History of umbilical hernia repair Family History Mother Heart disease HypertensionFather Heart disease CVA (cerebral vascular accident)Brother Cancer Social History household members: spouse housing: [...] made by me, Dr. Jose Ramon Terry, DO 02/25/25 0812. Part of today?s visit was documented by Zuri TYLER, acting as scribe. ELSA BLUE is a 69 year old F here today for continue right hip pain particularly in her groin. She would like to talk about surgery as she is ready to proceed with a hip replacement. She did do the aquatic therapy and has started going swimming twice a week doing the exercises they taught her in therapy. She does have a hx of DVT and PE. Her PE was in 2007 but she is unable to recall whenher last DVT was. Her last A1C was done 1 week ago and was 6.5 according to patient but I do not have these results. She does take methotrexate Plaquenil tramadol tizanidine gabapentin cyclobenzaprine 11/21/2024 visit: here today for continued right hip pain. Her pain now is in the groin and in her glute. Last visit it was more in the trochanteric bursa she isnot having much lateral sided pain now. she DrDiamond Johnson on 11/07/24 and she statesthat he told her she should get her hip taken care of first before he will do anything with her back. She would like to talk about doing another injection in thehip because she is going on a vacation in about a week. She would like to also talk about a hip replacement. It is affecting her quality of life she knows that she is overweight and in poor physical condition. Plan:Patient is here today for continued right hip pain. I obtained and reviewedxrays today and herhip arthrosis has progressed , does show severe arthritis ofthe right hip which has progressed since her last xray. Her treatment options are do nothing, weight loss, physical therapy, or a DUNCAN. She i s unable to take NSAIDs secondary to her taking Coumadin. Risks, benefits and alternatives of surgery reviewed including but not limited to bleeding, infection, nerve, foot drop, artery and/or tissuedamage, fracture, VTE, leg length discrepancy, dislocation, need for hip precautions, continued pain and expected post-operative course. She does have a history of a DVT many years ago in her right leg as she also does have a history of a PE. She will start her Coumadin right after surgery and willalso likely be on Lovenox bridge until her INR up, however we will coordinate this with her primarycare physician her INR will need to be less than 1.5 to proceed with surgery. She should avoid getting any injection into the hip for 3 months before surgery. Patient requested and I will send an order for aquatic therapy to [facility] for her to start after hervacation for her right hip . She will call our office after therapy to let us know when she would like to proceed with the hip replacement. 01/18/2024 visit:68 year old F here today for follow-up on her right hip last seen December 2022 at which time we recommended physical therapy for her hip osteoarthritis. Patient has well-known lumbar pathology for which she sees Dr. Anna she does have a L5-S1 disc herniation as well as significant lumbar stenosis with associated neurogenic claudication she was recently sent to physical therapy for this by spine surgery. Patient is here for right hip pain for a few months, She states that she has been doing aqua therapy for her low back and feels like that has been flaring upher hip. She has pain over her lateral hipand groin. She does have low back pain that she sees Dr. Johnson for. She denies radiating pain. She does have some numbness in her foot and ankle but notes that she has neuropathy. She states that herlateral hip is tender to touch. She takes Tylenol fir the pain along with she does have some tramadol but it doesn't seem to relieve her pain. 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 She denies any previous injury. She did do PT for the hip last year which did help but disconti nued it due to health issues. She has had an injection many years ago with Dr. Basali. She also c/oleft calf pain/claudication with walking. In the calf she denies redness or tenderness to the calf.She has pain in the calf whenever she is up and walking. Plan: X-rays were reviewed. There is no obvious fracture, dislocation, or lucency noted. Spoke withpatient that her hip arthritis hasn't progressed sinceher last x-ray last year. Spoke with patient that her groin pain is coming from the arthritis in her hip and the tenderness on the laterl hip is from the bursa in the hip which can be relieved with stretching/physical therapy and injectionsand weight loss. Her treatment options are do nothing, stretching the IT band, weight loss, injections, or a hip replacement. Patient wished to proceed and did receive a right hip trochanteric bursal injection today which she tolerated well she also requests referral to pain management for her left lowerextremity claudication and known lumbar stenosis. Ortho Exam General General: Yes no acute distress Neurologic: Yes alert and Yes oriented x3 Psychologic: Yes reasonable and appropriate Right Hip Skin: No Ecchymosis, No soft tissue swelling and No Erythema internal rotation @90 degree flexion: 0 degrees external rotation @90 degree extension: 25 degrees Special Tests: No iliopsoas snap, No IT band snap and Yes TTP [place] HIP: She does have groin pain with hip range of motion She is morbidly obese. 5-5 hip abduction and adduction without pain against resistance Constitutional: Well-developed; well-nourished; in no acute distress Eyes: No jaundice ENT: Nares patent; no obvious deformity Cardiovascular: No cyanosis; clubbing; or edema Lymphatic: No adenopathy in area of examination Skin: No rashes or lesions in the area of examination and intact Neurologic: Alert and oriented x 3 Psychiatric: Mood and affect appropriate Supplemental Info 11/21/2024 x-ray right hip: Severe joint space narrowing superiorly subchondral sclerosis advanced hip arthrosis 11/07/2024 x-ray lumbar spine: L2-L3 moderate to space narrowing with degenerative endplate changes,L3-L4 moderate disc space narrowing with degenerative endplate changes. Spondylosis and discogenic change of L5-S1. 01/18/2024 x-ray right hip: There is joint space narrowing superior medial there is osteophyte formation 12/25/2022 x-ray right hip: there is mild superior joint space narrowing and spurring 06/08/2022 x-ray lumbar spine: Scoliosis and degenerative changes with probable multilevel spinal stenosis This may be further assessed with CT or MRI if indicated , degenerative disc disease most severe L5-S1 multilevel facet arthrosis. 06/08/2022 x-ray right hip: there is mild superior joint space narrowing and spurring, Coding Level of Care Code Off vis,est,level 4 Diagnoses Primary osteoarthritis of right hip M16.11 Class 2 obesity without serious comorbidity with body mass index (BMI) of 39.0 to 39.9 in adult, unspecified obesity type E66.9; Z68.39 Obesity type: unspecified obesity type Obesity classification: adult class 2 (BMI 35 - 39.9) Serious obesity comorbidity presence: without serious comorbidity Body mass index: BMI 39.0-39.9 Polyneuropathy G62.9 Spinal stenosis of lumbar region with neurogenic claudication M48.062 Assessment and Plan Assessment and Plan (1) Primary osteoarthritis of right hip: Status: Acute (2) Obesity: Status: Acute Qualifiers: Obesity type: unspecified obesity type Obesity classification: adult class 2 (BMI 35 - 39.9) Serious obesity comorbidity presence: without serious comorbidity Body mass index: BMI 39.0-39.9 QualifiedCode(s): E66.9 - Obesity,unspecified; Z68.39 - Body mass index [BMI] 39.0-39.9, adult (3) Polyneuropathy: Status: Chronic (4) Spinal stenosis of lumbar region with neurogenic claudication: Status: Acute Orders: Orders Venous Duplex US, Unilateral Today Z86.711 - Personal history of pulmonary embolism, Z86.718 - Personal history of other venous thrombosis and embolism Plan Patient is here today for continued right hip pain. Patient would like to proceed with a hip replacement. Patient is morbidly obese diabetic on narcotics history of pulmonary embolism DVT, her physically handicapped and cannot help her postoperatively. She needs to be an admission we will also request inpatient rehab for her. She has had DVT and pulmonary embolism after surgeries in the past, but is not sure if she ever hada Doppler ultrasound to confirm that her DVT had resolved. I would like to get bilateral lower extremity Doppler ultrasounds to make sure there is no current DVT. In addition she will need to have her Coumadin managed by her primary care physician to have her INR less than 1.5 the day of surgery I also need medical clearance and his recommendations on whether or not she should be bridged with Lovenox postoperatively. Her last A1c I have on record was over 7 however she states she had 1 recently that was 6.5 we willneed to get copies of this. Risks, benefits and alternatives of surgery reviewed including but not limited to bleeding, infection, nerve, foot drop, artery and/or tissue damage, fracture, VTE, leg length discrepancy, dislocation, need for hip precautions, continued pain and expected post-operative course. I spoke with patient that since she does take Tramadol she will have a tolerance to narcotics so itmight be harder for her to control her pain after surgery. She does also take methotrexate, we discussed the literature does recommend holding this medication as long as less than 20 mg/week however we do know that it does lower the immune system and she wishes to hold it pre and postoperatively tominimize her risk of perioperative infection. She should avoid getting any injection around the hip for 3 months before surgery. Tentative surgery date March 24, 2025 admission with plans for rehab. Follow up for 2 weeks post-op or sooner if pain, swelling, numbness or associated symptoms, or concerns develop. All questions answered. Patient in agreement of plan. Clinical Quality Measures Falls Risk Screening/Assistive Devices Have you fallen in the past year?: Yes 02/25/25 1039 Date Jose Ramon Terry DO I have examined the patient and the H&P has been reviewed. There are no clinical changes since date of exam. 03/24/25717 Cosigner Signature (if applicable): CC: Dr. Meir Zepeda MD; Dr. Jose Ramon Terry DO~ Signed [facility]09-02-2025 [facility]09-02-2025 Consult note [facility] Medical Records Department [address] [place] [address] Pre-Anesthesia Evaluation 03/24/25 0708 MR#: [id number] Acct: [id number] Name: DELGADOELSA Rep #:[id number] : 1955 69 From: Jim AUSTIN PCP: Dr. Meir Zepeda MD Status:ADM IN Y Race: C Location: [place] [address] ASA Classification* ASA Classification ASA Classification: 3 Assessment & Plan Anesthesia* Anesthesia Assessment Anesthesia Assessment: Discussed sedation and/or anesthesia options, risks, benefits, and alternatives with patient/parents/legal guardian/POA. Questions invited. The patient/parents/legal guardian/POA seems to understand and agrees to proceedwith anesthesia plan. Reviewed the physical assessment, medical history, allergy history and patient home medications list prior to surgery/procedure/anesthetic and documented any changes. Performed airway and anesthesia risk assessments. Anesthesia Type Anesthesia Type: Spinal (General Backup) Anesthesia Focused Assessment* Temperature: 97.1 F Pulse Rate: 81 Blood Pressure: 117/89 Respiratory Rate: 18 Pulse Ox: 97 Airway Assessment Mouth opens: >3 cm Mallampati Score: III Labs Anesthesia Preop lab: CBC WBC 8.8 K/mm3 (4.4-11.0) 01/12/25 13:35 01/12/25 RBC 3.98 M/mm3 (4.2-5.4) L 01/12/25 13:35 01/12/25 Hgb 12.3 g/dL (12.0-15.0) 01/12/25 13:35 01/12/25 Hct 37.4 % (37-47) 01/12/25 13:35 01/12/25 Plt Count 311 K/mm3 (150-450) 01/12/25 13:35 01/12/25 CHEMISTRY Potassium 4.4 mmol/L (3.3-5.1) 02/19/25 11:31 02/19/25 Sodium 138 mmol/L (133-145) 02/19/25 11:31 02/19/25 Magnesium 1.9 mg/dL (1.5-2.2) 03/16/25 08:08 03/16/25 Phosphorus 3.4 mg/dL (2.5-4.9) 04/13/23 09:20 04/13/23 BUN 27 mg/dL (4-19) H 02/19/25 11:31 02/19/25 Creatinine 0.98 mg/dL (0.70-1.20) 02/19/25 11:31 02/19/25 Glucose 123 mg/dL (70-99) H 02/19/25 11:31 02/19/25 POC Glucose 177 mg/dL (74-106) H 01/25/23 11:36 01/25/23 TSH 0.814 uIU/mL (0.300-4.200) 09/29/24 13:11 09/20 COAG PT 12.9 SECONDS (11.7-14.9) 03/24/25 06:22 Pre-Assessment Diagnosis/Proposed Procedure Planned Operative Procedure(s): RIGHT TOTAL H IP ARTHROPLASTY Anesthesia History 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 When Was Last Pacemaker Check QUESTION #4 FULL TEXT: You/Your Family Experience fever (hyperthermia) with Anesthesia Last Oral Intake Last Oral intake: Last Oral Intake NPO since 03:00 03/24/25 06:36 Meds taken in AM with sips of Yes 03/24/25 06:36 water? Meds patient instructed to take am of surgery PONV PONV - labor supervisor: PONV - labor supervisor Female Yes 03/10/25 15:14 HX of Motion Sickness Yes 03/10/25 15:14 HX of N/V After Surgery No 03/10/25 15:14 Non-Smoker Yes 03/10/25 15:14 Duration of Surgery greater Yes 03/10/25 15:14 than 60 minutes Number of Risk Factors 4 03/10/25 15:14 PONV Score Severe Risk 03/10/25 15:14 Height & Weight Height & Weight: Anesthesia: Height & Weight Height 5 ft 5 in 03/24/25 06:36 Weight: 102.5 kg 03/24/25 06:36 Body Mass Index (BMI) 37.5 03/24/25 06:36 Respiratory Assessment Respiratory Assessment - labor supervisor: Respiratory Tract Infection Hx - labor supervisor Hx Respiratory Tract Infection No 03/10/25 15:14 STOP Sleep Apnea STOP Sleep Apnea - labor supervisor: STOP Sleep Apnea - labor supervisor Hx Hypertension Yes: CONTROLLED WITH MED 03/10/25 15:14 Hx Sleep Apnea Yes 03/10/25 15:14 CPAP Yes 03/10/25 15:14 BIPAP No 03/10/25 15:14 Do you snore loudly (louder than talking or can be heard Do you often feel tired/ fatigued/ sleepy during daytime? Has anyone observed you stop breathing during sleep? STOP Results Positive 03/10/25 15:14 QUESTION #5 FULL TEXT : Do you snore loudly (louder than talking or can be heard through closeddoors)? 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 Specify any problems Hx of Preganancy in last 3 No 03/10/25 15:14 Months Nurse Filling Out Transfusion DSCHRIBER 03/10/25 15:14 & Questions: Date: 03/10/25 03/10/25 15:14 Time: 15:18 03/10/25 15:14 Patient unable to answer at this time (ie. confused, unrespo /Reproduction History /Reproductive History - labor supervisor: /Reproductive Hx- labor supervisor Hx Now No 03/10/25 15:14 Gestational Age (in weeks): EDC: Hx Hx Para Hx Section SAB No 03/10/25 15:14 Active Medications Active Medications: Current Medications Generic Name Dose Route Start Last Admin Trade Name Erendira PRN Reason Stop Dose Admin Acetaminophen 1,000 mg 03/24/25 07:30 03/24/25 06:46 Acetaminophen 500 Mg Tablet PO 03/24/25 07:31 1,000 mg PREOP ONE Administration Dexamethasone Sodium Phosphate 10 mg 03/24/25 07:30 Dexamethasone 10 Mg/Ml Vial IV 03/24/25 07:31 INTRAOP ONE Gabapentin 600 mg 03/24/25 07:30 03/24/25 06:46 Gabapentin 600 Mg Tablet PO 03/24/25 07:31 600 mg PREOP ONE Administration Lactated Ringer's 1,000 mls @ 999 mls/hr 03/24/25 07:30 03/24/25 06:18 IV 03/24/25 08:30 999 mls/hr .Q1H1M DANYELL Administration Tranexamic Acid 2,000 mg/ 120 mls @ 280 mls/hr 03/24/25 07:30 Sodium Chloride IV 03/24/25 07:55 INTRAOP ONE Lactated Ringer's 1,000 mls @ 125 mls/hr 03/24/25 07:30 IV 03/24/25 15:29 .Q8H DANYELL Cefazolin Sodium 2 gm/ Sodium 110 mls @ 200 mls/hr 03/24/25 07:30 Chloride IV 03/24/25 08:02 INTRAOP ONE Magnesium Sulfate 2 gm/ 104 mls @ 208 mls/hr 03/24/25 07:30 03/24/25 06:18 Dextrose IV 03/24/25 07:59 208 mls/hr PREOP ONE Administration Insulin Human Lispro 1 - 6 unit 03/24/25 07:30 Insulin Lispro 100 Unit/Ml Insuln.Pen SC Q4H PRN PRN BG>/= 180, SEE PROTOCOL Protocol Scopolamine HBr 1 patch 03/24/25 07:30 03/24/25 06:46 Scopolamine 1mg/72hr Patch TD 03/24/25 07:31 1 patch PREOP ONE Administration PFSH Medical History (Updated 03/10/25 @ 15:33 by Gloria Coleman) Diabetes Ambulates with cane Fatty liver Restless legs Syncope Dietary restriction Chronic constipation Gastric reflux History of pain when walking History of GI bleed History of pneumonia Fibromyalgia Rheumatoid arthritis Post-menopausal Wears glasses Depression Anemia Pulmonary embolism DVT (deep venous thrombosis) CPAP (continuous positive airway pressure) dependence Former smoker Shortness of breath on exertion Leg cramps History of edema History of stress test (~04/06/20) Hypoxia Right hip pain History of iron deficiency Fatigue Claustrophobia Mild cognitive impairment Peripheral vestibulopathy Encounter for screening for COVID-19 Cerebrovascular small vessel disease Cerebral convexity meningioma Neuropathy High cholesterol Glaucoma Cervical radiculitis HTN (hypertension) Renal calculus, bilateral Home Medications ?Medication ?Instructions ?Recorded ?Last Taken ?Type ferrous sulfate 325 mg (65 mg 325 mg PO BID SUPPLEMENT 02/11/14 03/23/25 History iron) tablet multivitamin with folic acid 400 1 tab PO DAILY SUPPLE MENT 02/11/14 03/23/25 History mcg tablet trazodone 50 mg tablet 100 mg PO QHS SLEEP 02/11/14 03/23/25 History Held on 04/27/23. Instructions: MD Ordered biotin 10,000 mcg capsule 10,000 mcg PO DAILY HAIR LOS S 05/30/21 03/23/25 History calcium 600 mg (as 1 cap PO BID SUPPLEMENT 03/1203/23/25 History carbonate)-vitamin D3 12.5 mcg (500 unit) capsule (Calcium with Vit D3) tramadol 50 mg tablet 50 mg PO Q6H PRN Pain Score 6-10 01/25/23 Unknown Rx Held on 04/27/23. #25 tabs Instructions: Ordered hydroxychloroquine 200 mg tablet 200 mg PO BID OA 12/2203/24/25 History gabapentin 300 mg capsule 300 mg PO BID PAIN 10/06/24 03/23/25 History lisinopril 20 1 tab PO QDAY BP 10/06/24 History mg-hydrochlorothiazide 12.5 mg tablet metformin 1,000 mg tablet 1,000 mg PO BID DIABETES 03/23/25 History warfarin 5 mg tablet (Jantoven) 10 mg PO SUTUWETHSA BL OOD THINNER 10/06/24 03/19/25 History duloxetine 30 mg capsule,delayed 30 mg PO QPM DEPRESSI ON #90 caps 01/29/25 03/23/25 Rx release duloxetine 60 mg capsule,delayed 60 mg PO QAM DEPRESSI ON #90 caps 01/29/25 03/24/25 Rx release (Cymbalta) meclizine 25 mg tablet 25 mg PO BID PRN dizziness # 180 01/30/25 Unknown Rx tabs methotrexate sodium 2.5 mg tablet 20 mg PO SA OA 02/2502/21/25 History CPAP - Continuous Positive Airway 03/10/25 Unknown Hi story Pressure([facility] INFORMATIONAL USE ONLY) omeprazole 20 mg capsule,delayed 20 mg PO DAILY GERD 0 03/10/25 03/24/25 History release ropinirole 2 mg tablet 2 mg PO 1700 RLS 03/10/25 History ropinirole 2 mg tablet 2 mg PO QHS RLS 03/10/2508/16 History tizanidine 4 mg tablet 8 mg PO QHS muscle spasticit y/leg 03/10/25 03/23/25 History restlessness warfarin 4 mg tablet 8 mg PO MOFR BLOOD THINNER 0 03/10/25 03/19/25 History Allergy/AdvReac Type Severity Reaction Status Date / Time amoxicillin Allergy Mild rash Verified 03/24/25 06:17 atorvastatin AdvReac Mild myalgiias Verified 03/24/25 06:17 levofloxacin (From Levaquin) AdvReac Unknown Nausea Verified 03/24/25 06:17 Family History Mother Heart disease Hypertension Father Heart disease CVA (cerebral vascular accident) Brother Cancer Surgical History (Updated 03/10/25 @ 15:33 by Gloria Coleman) Hx of superior vena cava filter placement History of cystoscopy Status post biopsy of thyroid gland (~08/2019) History of colonoscopy (~2014) History of dilation and curettage History of carpal tunnel release of both wrists Status post panniculectomy History of [place]-en-Y gastric bypass History of umbilical hernia repair Social History household members: spouse housing: house [...] do you feel safe at home: Yes Review of Systems (Anesthesia) ROS Narrative System reviewed and no additional complaints, except as documented. 03/24/25 0712 PLUNGER SHOVEL OPERATOR> Date _ Jim Pollock PLUNGER SHOVEL OPERATOR Cosigner Signature: Date CC: ~ Signed [facility]08-22-2025 Radiology Diagnostic study note [facility] Imaging Services [address] [place], [place] [address] Extremity Lower without Contra MR#: [id number] Acct: [id number] Name: ELSA BLUE Rep #: [id number] : 1955 F 69 From: Ajit Tian MD PCP: Dr. Meir Zepeda MD Status: REG CL I Study:Extremity Lower without Contra Date of Exam: 03/13/25 Exam# [id number] Ordering Dr: Jose Ramon Terry DO PROCEDURE: EXTREMITY LOWER WITHOUT CONTRA 03/13/2025 REASON FOR EXAM: TEMPLATING FOR RIGHT [place] TECHNIQUE: [place] right hip noncontrasted CT, templating for right [...] changes are seen, with severe superiorjoint narrowing andosseous reactive changes. Limited imaging of the right knee shows no joint effusion. At least mild degenerative changes are present. CT/Extremity Lower without Contra IMPRESSION: Successful [facility] right hip CT, as noted. Reading Location: [place] [address] CC: Dr. Meir Zepeda MD; Dr. Jose Ramon Terry DO ~ Clean Room Assembler: Signed [facility]08-22-2025 NoteHNO ID: [id number] Author: MANUELA MONTANA APRN.SMOKING PIPE REPAIRER Service: ? Author Type: Nurse Practitioner Type: Progress Notes Filed: 03/13/2025 11:30 Note Text: Elsa is a 69 year old who presents for an annual gynecologic exam without complaints. - Scheduled for hip replacement surgery in 9 days at [facility]. Plans to stay in a facility for rehabilitation post-surgery due to her 's severe neuropathy, which limits his ability to assist at home. Postmenopausal: Yes since age Late 40's, early 50's HRT use: No. Last Pap: 05/10/2022 normal HPV: 05/10/2022 negative History of abnormal pap: Yes - cryo 's Last mammogram: 2024 normal History of abnormal mammogram: No Sexually active: No Vaginal dryness: No Menopause symptoms: None Bothersome pelvic pain: No Documentation from previous visit of 05/10/2022 was copied and pasted, documentation has been reviewed and edited as necessary for today's visit. OB History Gravida1 Para1 Term0 Preterm1 AB0 Living1 SAB0 IAB0 Ectopic0 Multiple0 Live Births0 Audio/Video Engineer History LMP: Postmenopausal Age at Menarche: 13 Age at First : Age at Menopause: Audio/Video Engineer History Comments: Sexual Activity: Not Currently; Male; [...] tunnel decomp Left PAST SURGICAL HISTORY OF [place] PAST SURGICAL HISTORY OF 2014 panelectomy REPAIR [...] discussed with the Patient or Patient's Authorized [employer] Clerk. As applicable, any other physician, advance practice provider, medical student, or other health professional student that will be observing or involved in the sensitive examination for educational or training purposes was discussed with the Patient or Authorized [employer] Clerk. The Patient or Authorized [employer] Clerk has agreed to proceed with the sensitive [...] external genitalia normal, normal Bartholin's glands, urethra, Dorrance's glands, no vulvar lesions, no cervical lesions, physio (more content not included)...[facility]08-22-2025 History of Present illness Narrative* Manuela Montana, [facility]ATH.[facility] - 03/13/2025 9:33 AM EDT Elsa is a 69 year old who presents for an annual gynecologic exam without complaints. - Scheduled for hip replacement surgery in 9 days at [facility]. Plans to stay in a facility for rehabilitation post-surgery due to her 's severe neuropathy, which limits his ability to assist at home. Postmenopausal: Yes since age Late 40's, early 50's HRT use: No. Last Pap: 05/10/2022 normal HPV: 05/10/2022 negative History of abnormal pap: Yes - cryo 's Last mammogram: 2024 normal History of abnormal mammogram: No Sexually active: No Vaginal dryness: No Menopause symptoms: None Bothersome pelvic pain: No Documentation from previous visit of 05/10/2022 was copied and pasted, documentation has been reviewed and edited as necessary for today's visit. OB History Gravida1 Para1 Term0 Preterm1 AB0 Living1 SAB0 IAB0 Ectopic0 Multiple0 Live Births0 Audio/Video Engineer History LMP: Postmenopausal Age at Menarche: 13 Age at First : Age at Menopause: Audio/Video Engineer History Comments: Sexual Activity: Not Currently; Male; [...] tunnel decomp Left PAST SURGICAL HISTORY OF [place] PAST SURGICAL HISTORY OF 2014 panelectomy REPAIR [...] discussed with the Patient or Patient's Authorized [employer] Clerk. As applicable, any other physician, advance practice provider, medical student, or other health professional student that will be observing or involved in the sensitive examination for educational or training purposes was discussed with the Patient or Authorized [employer] Clerk. The Patient or Authorized [employer] Clerk has agreed to proceed with the sensitive [...] external genitalia normal, normal Bartholin's glands, urethra, Dorrance's glands, no vulvar lesions, no cervical lesions, [...] year or sooner as needed Manuela Montana APRN.CNP documented [facility] encounterC[facility] History of Present illness Narrative* Manolo Sebastian Mammo Shania - 02/23/2025 2:30 PM EDT Radiology Service Progress Note PATIENT NAME: Elsa Blue DATE OF SERVICE: February 23, 2025 [...] PATIENT PRESENTS WITH AN IMPLANTABLE OR ATTACHED HEAT REGULATOR: No RADIOLOGY DEPARTMENT: Mammography PERIPHERAL IV DATA: Not applicable SIGNED BY: Naldo Marteo Shania February 23, 2025 2:53 PM documented in this encounterC[facility]08-04-2025 Miscellaneous Notes* Addendum Note - Manolo Sebastian Mammo Tech - 02/23/2025 2:30 PM EDTEncounter addended by: Manolo Sebastian Mammo Shania on: 02/23/2025 3:20 PM Actions taken: Clinical Note Signed documented in this encounterC[facility]08-04-2025 Note* Addendum Note - Manolo Sebastian Mammo Tech - 02/23/2025 2:30 PM EDTEncounter addended by: Manolo Sebastian Mammo Shania on: 02/23/2025 3:20 PM Actions taken: Clinical Note Signed [facility]08-04-2025 NoteHNO ID: [id number] Author: MANOLO SEBASTIAN Mammo Tech Service: ? Author Type: Technologist Type: Progress Notes Filed: 02/23/2025 15:20 Note Text: Radiology Service Progress Note PATIENT NAME: Elsa Blue DATE OF SERVICE: February 23, 2025 [...] PATIENT PRESENTS WITH AN IMPLANTABLE OR ATTACHED HEAT REGULATOR: No RADIOLOGY DEPARTMENT: Mammography PERIPHERAL IV DATA: Not applicable SIGNED BY: Ed Marte February 23, 2025 2:53 [facility] Evaluation note* Diagnosis Onset Date Resolution Status Admit Date Fibromyalgia inactive January 29 10:49am Peripheral vestibulopathy inactive January 29, 2025 10:49am Restless legs syndrome inactive 2024 10:49am Fatigue deleted January 29 10:49am Polyneuropathy inactive February 9:44am Primary osteoarthritis of right hip inactive February 25, 2025 9:44am Spinal stenosis of lumbar region with neurogenic claudication inactive February 25, 2025 9:44am Obesity deleted February 25 9:44am Fatigue deleted March 09 11:23am S/P total right hip arthroplasty acute March 24 10:28am COPD (chronic obstructive pulmonary disease) inactive March 10:28am Degenerative joint disease o f right hip deleted March 24 10:28am Acute blood loss as cause of postoperative anemia acute March 272024 1:30pm Physical debility acute 2024 1:30pm S/P total right hip arthroplasty acute March 27 1:30pm Chronic anticoagulation inactive S eptemb2024 1:30pm Class II obesity inactive r 2024 1:30pm COPD (chronic obstructive pulmonary disease) inactive March 1:30pm Diabetes mellitus, type 2 inactive March 27, 2025 1:30pm DVT (deep venous thrombosis) inactiv e March 27, 2025 1:30pm Elevated serum immunoglobuli n free light chain level inactive March 27, 2025 1:30pm Fatty liver inactive March 1:30pm Fibromyalgia inactive March 1:30pm HTN (hypertension) inactive 2024 1:30pm Lumbar radiculopathy inactive Mar 1:30pm STEFFI (obstructive sleep apnea) inacti ve March 27, 2025 1:30pm Polyneuropathy inactive March 27, 2025 1:30pm Presence of IVC filter inactive Se 2024 1:30pm Primary osteoarthritis of right hip inactive March 27 1:30pm Pulmonary embolism inactive 2024 1:30pm Restless legs syndrome inactive Se 2024 1:30pm Rheumatoid arthritis inactive Mar 1:30pm Spinal stenosis of lumbar region with neurogenic claudication inactive March 27 1:30pm Orthopedic aftercare acute Mar 10:34am [facility] Work Phone: 1(386) 311-309707-10-2025 Evaluation note* Diagnosis Onset Date Resolution Status Admit Date Fibromyalgia inactive January 29 10:49am Peripheral vestibulopathy inactive January 29, 2025 10:49am Restless legs syndrome inactive 2024 10:49am Fatigue deleted January 29 10:49am Polyneuropathy inactive February 9:44am Primary osteoarthritis of right hip inactive February 25, 2025 9:44am Spinal stenosis of lumbar region with neurogenic claudication inactive February 25, 2025 9:44am Obesity deleted February 25 9:44am Fatigue deleted March 09 025 11:23am S/P total right hip arthroplasty acute March 24 10:28am COPD (chronic obstructive pulmonary disease) inactive March 10:28am Degenerative joint disease o f right hip deleted Solange 2nd, 2 025 10:28am Acute blood loss as cause of postoperative anemia acute March 272024 1:30pm Physical debility acute er 2024 1:30pm S/P total right hip arthroplasty acute March 27 025 1:30pm Chronic anticoagulation inactive S eptemb2024 1:30pm Class II obesity inactive r 2024 1:30pm COPD (chronic obstructive pulmonary disease) inactive March 1:30pm Diabetes mellitus, type 2 inactive March 27, 2025 1:30pm DVT (deep venous thrombosis) inactiv e March 27, 2025 1:30pm Elevated serum immunoglobuli n free light chain level inactive March 27, 2025 1:30pm Fatty liver inactive March 1:30pm Fibromyalgia inactive March 1:30pm HTN (hypertension) inactive 2024 1:30pm Lumbar radiculopathy inactive Mar 1:30pm STEFFI (obstructive sleep apnea) inacti ve March 27, 2025 1:30pm Polyneuropathy inactive March 27, 2025 1:30pm Presence of IVC filter inactive Se 2024 1:30pm Primary osteoarthritis of right hip inactive March 27 025 1:30pm Pulmonary embolism inactive 2024 1:30pm Restless legs syndrome inactive 2024 1:30pm Rheumatoid arthritis inactive Mar 1:30pm Spinal stenosis of lumbar region with neurogenic claudication inactive March 27 025 1:30pm Orthopedic aftercare acute Mar 10:34am Fatigue deleted May 04, 2025 9:13am Orthopedic aftercare acute 2024 10:28am [facility] Work Phone: 1(485) 979-124606-24-2025 Discharge summary Author Jesse Thrasher [facility] Note Date/Time January 13, 2025 7:00 pm [facility] Physical Therapy [facility] [address] [place] [address]. [address] [place] [address] / REHABILITATION SERVICES DISCHARGE SUMMARY MR#: [id number] Acct: [id number] Name: ELSA BLUE Rep #: [id number] : 1955 69 From: Jesse Sierra Referring Dr.: Dr. Jose Ramon Terry DO Status: REG RCR Insurance: MEDICARE PART A B [facility] Discharge Summary D/C summary: It has been my pleasure to treat ELSA BLUE referred by Dr. Jose Ramon Terry [...] please feel free to call me at [phone]. Thank you for the referral of thispatient. Sincerely, TONI BurtT Balance/Gait/Functional tests Balance/Special Test Scores Lower Extremity Functional Score: 29 TUG Test Time Seconds: 15.5 Tug Test: <20 sec.=mostly independent 30 Second Chair Rise Test Seconds: 11 Improvement % Improvement: 30 <Electronically signed by Jesse MUÑOZT> 01/13/25 1058 CC: Dr. Meir Zepeda MD; Dr. Jose Ramon Terry DO ~ CLS Signed [facility] Work Phone: 1(773) 954-389006-24-2025 Discharge summary [facility] [address] [place] [address] [address] [place] [address] / REHABILITATION SERVICES DISCHARGE SUMMARY MR#: [id number] Acct: [id number] Name: ELSA BLUE Rep #: [id number] : 1955 69 From: Jesse MUÑOZ T Referring Dr.: Dr. Jose Ramon Terry DO Status: REG RCR Insurance: MEDICARE PART A B [facility] Discharge Summary D/C summary: It has been my pleasure to treat ELSA BLUE referred by Dr. Jose Ramon Terry [...] please feel free to call me at [phone]. Thank you for the referral of thispatient. Sincerely, Jesse Thrasher, DPT Balance/Gait/Functional tests Balance/Special Test Scores Lower Extremity Functional Score: 29 TUG Test Time Seconds: 15.5 Tug Test: <20 sec.=mostly independent 30 Second Chair Rise Test Seconds: 11 Improvement % Improvement: 30 01/13/25 1058 CC: Dr. Meir Zepeda MD; Dr. Jose Ramon Terry, ~ CLS Signed [facility]06-23-2025 Radiology Diagnostic study note [facility] Imaging Services [address] [place], [place] [id number] Abdomen/Pelvis without Cont MR#: [id number] Acct: [id number] Name: ELSA BLUE Rep #: [id number] 8 : 1955 F 69 From: Rex Portillo MD PCP: Dr. Meir Zepeda MD Status: REG ER Study:Abdomen/Pelvis without Cont Date of Exa m: 01/12/25 Exam# [id number] Ordering Dr: Edith Enamorado DO PROCEDURE: ABDOMEN/PELVIS [...] is seen at this time. Reading Location: [id number] CC: Dr. Meir Zepeda MD; Dr. Juan Manuel Enamorado, DO ~ Clean Room Assembler: Signed [facility]06-19-2025 Radiology Diagnostic study note [facility] Imaging Services [address] [place], [place] [id number] Abdomen Single View MR#: [id number] Acct: [id number] Name: ELSA BLUE Rep #: [id number] : 1955 F 69 From: Savi Arshad MD PCP: Dr. Meir Zepeda MD Status: REG CL I Study:Abdomen Single View Date of Exam: 01/07/25 Exam# [id number] Ordering Dr: Manolo Valdez NP, NP-Sheryl PROCEDURE: ABDOMEN SINGLE VIEW [...] calcifications overlying the left kidney. [facility] CC: Manolo Valdez; Dr. Meir Zepeda MD ~ Clean Room Assembler: Signed [facility]06-09-2025 Telephone encounter Note* Telephone Encounter - Lucy Trujillo RN - 12/29/2024 8:46 AM EDT Patient notified of results and provider's instructions. Patient verbalizes understanding. Lucy Trujillo RN [facility]06-09-2025 Miscellaneous Notes* Telephone Encounter - Lucy Trujillo [...] family doctor as needed. documented in this encounterC[facility]06-09-2025 Telephone encounter Note * Telephone Encounter - Larisa West LPN - 12/29/2024 7:42 AM EDT Left message for patient to return call for results.Larisa West LPN [facility]06-07-2025 Telephone encounter Note* Telephone Encounter - Leonardo Dhillon APRN.CNP - 12/27/2024 12:56 PM EDT Attempted to contact patient to inform her that the x-ray of her ankle showed no sign of fracture or dislocation. I do feel that symptoms are more consistent with a generalized sprain/strain and she should resume activities as tolerated and follow-up with her family doctor as needed. [facility] Work Phone: 1(638) 627-624506-07-2025 History of Present illness Narrative* [place] RT(R) - 12/27/2024 10:30 AM EDT Radiology Service Progress Note PATIENT NAME: Elsa Blue DATE OF SERVICE: December 27, 2024 [...] PATIENT PRESENTS WITH AN IMPLANTABLE OR ATTACHED HEAT REGULATOR: No RADIOLOGY DEPARTMENT: General X-ray: Exam(s) Completed: Lower Extremity X- Ray(s): Ankle, Left PERIPHERAL IV DATA: Not applicable SIGNED BY: RT Muna(Laverne) December 27, 2024 10:31 AM documented in this encounterC[facility]06-07-2025 NoteHNO ID: [id number] Author: [place] RT(R) Service: ? Author Type: Technologist Type: Progress Notes Filed: 12/27/2024 10:37 Note Text: Radiology Service Progress Note PATIENT NAME: Elsa Blue DATE OF SERVICE: December 27, 2024 [...] PATIENT PRESENTS WITH AN IMPLANTABLE OR ATTACHED HEAT REGULATOR: No RADIOLOGY DEPARTMENT: General X-ray: Exam(s) Completed: Lower Extremity X-Ray(s): Ankle, Left PERIPHERAL IV DATA: Not applicable SIGNED BY: RT Muna(Laverne) December 27, 2024 10:31 [facility]06-07-2025 NoteHNO ID: [id number] Author: LEONARDO DHILLON APRN.ERAN Service: ? Author Type: Nurse Practitioner Type: Progress Notes Filed: 12/27/2024 12:59 Note Text: This note was created using [employer]. Kasey Blue is a 69 year old [...] ANKLE GENERAL 3V AP/LAT/OBL LEFT Leonardo Dhillon APRN.ERANChildren'S Hospital For [facility]06-07-2025 History of Present illness Narrative* Leonardo Dhillon APRN.ERAN - 12/27/2024 10:24 AM EDT This note was created using [employer]. Kasey Blue is a 69 year old [...] LEFT Leonardo Dhillon APRN.ERAN [facility]* Diagnosis Onset Date Resolution Status Admit Date Fatigue chronic December 08, 2024 11:32am Fibromyalgia acute January 29 025 10:49am Peripheral vestibulopathy acute January 29, 2025 10:49am Fatigue chronic January 29 10:49am Restless legs syndrome chronic 2024 10:49am Obesity acute February 25 9:44am Primary osteoarthritis of right hip acute February 25, 2025 9:44am Spinal stenosis of lumbar region with neurogenic claudication acute February 25, 2025 9:44am Polyneuropathy chronic February 9:44am Fatigue chronic March 09 11:23am Degenerative joint disease o f right hip acute March 24 10:28am S/P total right hip arthroplasty acute March 24 10:28am COPD (chronic obstructive pulmonary disease) chronic March 10:28am [facility] Work Phone: 1([phone]) 882-988805-19-2025 Evaluation note* Diagnosis Onset Date Resolution Status Admit Date Fatigue deleted December 08, 2024 11:32am Fibromyalgia inactive January 29 10:49am Peripheral vestibulopathy inactive January 29, 2025 10:49am Restless legs syndrome inactive 2024 10:49am Fatigue deleted January 29 10:49am Polyneuropathy inactive February 9:44am Primary osteoarthritis of right hip inactive February 25, 2025 9:44am Spinal stenosis of lumbar region with neurogenic claudication inactive February 25, 2025 9:44am Obesity deleted February 25 9:44am Fatigue deleted March 09 11:23am S/P total right hip arthroplasty acute March 24 10:28am COPD (chronic obstructive pulmonary disease) inactive March 10:28am Degenerative joint disease o f right hip deleted March 24 10:28am Acute blood loss as cause of postoperative anemia acute March 272024 1:30pm Physical debility acute 2024 1:30pm S/P total right hip arthroplasty acute March 27 1:30pm Chronic anticoagulation inactive S eptember 2024 1:30pm Class II obesity inactive 2024 1:30pm COPD (chronic obstructive pulmonary disease) inactive March 1:30pm Diabetes mellitus, type 2 inactive March 27, 2025 1:30pm DVT (deep venous thrombosis) inactiv e March 27, 2025 1:30pm Elevated serum immunoglobuli n free light chain level inactive March 27, 2025 1:30pm Fatty liver inactive March 1:30pm Fibromyalgia inactive March 1:30pm HTN (hypertension) inactive 2024 1:30pm Lumbar radiculopathy inactive Mar 1:30pm STEFFI (obstructive sleep apnea) inacti ve March 27, 2025 1:30pm Polyneuropathy inactive March 27, 2025 1:30pm Presence of IVC filter inactive Se pt2024 1:30pm Primary osteoarthritis of right hip inactive March 27, 025 1:30pm Pulmonary embolism inactive Marem 2024 1:30pm Restless legs syndrome inactive Se pt2024 1:30pm Rheumatoid arthritis inactive Mar 1:30pm Spinal stenosis of lumbar region with neurogenic claudication inactive March 27 025 1:30pm [facility] Work Phone: 1(575) 615-849905-02-2025 Evaluation note* Diagnosis Onset Date Resolution Status [...] acute Feb 9:44am Polyneuropathy chronic February 9:44am [facility] Work Phone: 1([phone]) 163-444005-02-2025 Evaluation note* Diagnosis Onset Date Resolution Status [...] January 29 10:49am Restless legs syndrome chronic Ju ly 2024 10:49am Obesity acute February 25 9:44am Primary osteoarthritis of ri ght hip acute February 25, 2025 9:44am Spinal stenosis of lumbar re gion with neurogenic claudication acute Feb us2024 9:44am Polyneuropathy chronic February 9:44am Fatigue chronic March 09 025 11:23am [facility] Work Phone: 1(585) 642-194804-17-2025 Evaluation note* Diagnosis Onset Date Resolution Status [...] January 29 10:49am Restless legs syndrome chronic Ju ly 2024 10:49am [employer] [facility] Work Phone: 1(852) 294-836903-13-2025 Evaluation note* Diagnosis Onset Date Resolution Status [...] 9:59am Polyneuropathy chronic November 21, 025 9:59am Fatigue chronic December 08, 2024 11:32am [facility] Work Phone: 1(872) 751-408303-13-2025 Evaluation note* Diagnosis Onset Date Resolution Status Admit Date Fatigue chronic October 02 11:25am Bilateral adrenal adenomas chronic October 06, 2024 10:58am Elevated serum immunoglobuli n free light chain level chronic September 10:58am Fatty liver chronic October 06, 10:58am Fatigue chronic November 06 11:28am Lumbar [...] 9:59am Polyneuropathy chronic November 21, 025 9:59am Fatigue chronic December 08, 2024 11:32am Peripheral vestibulopathy acute January 29, 2025 10:49am Fatigue chronic January 29 10:49am Restless legs syndrome chronic 2024 10:49am [facility] Work Phone: 1(112) 843-452803-10-2025 Radiology Diagnostic study note [facility] Services [address] [place], [place] [address] Abdomen/Pelvis W IV Cont ONLY MR#: [id number] Acct: [id number] Name: ELSA BLUE Rep #: [id number] : 1955 F 68 From: Candice Rueda MD PCP: Dr. Meir Zepeda MD Status: REG CL I Study:Abdomen/Pelvis W IV Cont ONLY Date of E xam: 09/29/24 Exam# [id number] Ordering Dr: Eugene Mckenzie MD EXAM: CT [...] spine as described. Reading Location: [facility] CC: Dr. Meir Zepeda MD; Dr. Jose Ramon Mckenzie MD ~ Clean Room Assembler: Signed [facility]02-11-2025 Evaluation note* Diagnosis Onset Date Resolution Status [...] 21, 2024 9: 59am Polyneuropathy chronic November 21 9:59am [facility] Work Phone: 1(906) 202-100601-09-2025 Evaluation note* Diagnosis Onset Date Resolution Status Admit Date Peripheral vestibulopathy acute July 31, 2024 1:29pm Fatigue chronic July 31 1:29pm Restless legs syndrome chronic [facility] 2024 1:29pm Fatigue chronic September 02, 2024 10:44am Fatigue chronic October 02 11:25am Hematuria acute October 06 10:58am Bilateral adrenal adenomas chronic October 06, 2024 10:58am Elevated serum immunoglobuli n free light chain level chronic September 10:58am [facility] Work Phone: 1([phone]) [phone] Evaluation note* Diagnosis Onset Date Resolution Status Admit Date Peripheral vestibulopathy acute July 31, 2024 1:29pm Fatigue chronic July 31 1:29pm Restless legs syndrome chronic [facility] 2024 1:29pm Fatigue chronic September 02, 2024 10:44am Fatigue chronic October 02 11:25am Bilateral adrenal adenomas chronic October 06, 2024 10:58am Elevated serum immunoglobuli n free light chain level chronic September 10:58am Fatty liver chronic October 06 025 10:58am [facility] Work Phone: 1([phone]) [phone] Evaluation note* Diagnosis Onset Date Resolution Status Admit Date Peripheral vestibulopathy acute July 31, 2024 1:29pm Fatigue chronic July 31 025 1:29pm Restless legs syndrome chronic [facility] 2024 1:29pm Fatigue chronic September 02, 2024 [...] neurogenic claudication acute November 07, 2024 1:47pm [facility] Work Phone: 1([phone]) 613-177112-01-2023 Progress note Author Mari Veliz [facility] June 22, 2023 2:08pm Note Date/Time June 22, 2023 2 :08pm [facility] [address] [place] [address] Progress Note - Wound Care 06/22/23 1402 MR#: [id number] Acct: [id number] Name: ELSA BLUE Rep #:[id number] : 1955 67 From: Mari Veliz DO PCP: Deysi Castro, DO Status:REG R CR Location: History of Present Illness Date of Service: 06/22/23 Chief Complaint: right lateral chest wound History of Wound: Elsa is a 67 yo woman that presents to the wound center today for evaluation and treatment of a nonhealing wound of her right chest wallfrom a chest tube. She was hospitalized the end of February and [facility] for pneumonia and pleural effusion which need surgical debridement. The wound has not healed since the chest tube was removed Mar.24. She has been applying Bacitracin. She states there is light drainage, no erythema or odor or fever or chills. Subjective Subjective Elsa is here today for follow up of [...] Room Air 06/22/23 10:09 06/22/23 10:09 06/22/23 10:06/22/23 10:06/22/23 10:09 Oxygen Delivery Method Room [...] Recorded By Document 06/22/23 10:09 [facility] Desktop 06/22/23 10:17 [facility] 06/22/23 10:09 - Today's Visit Information Type of service Follow-up Visit (Physician/SMOKING PIPE REPAIRER ) Arrival Mode Ambulatory Transfer Assistance None [...] Recorded By Document 06/22/23 10:09 [facility] [employer] 06/22/23 10:17 [facility] 06/22/23 10:09 Wound Center Nurse 1 [...] Abnormality Appearance) (Pt Warm) -Tenderness on Palpation (Syibl-wound No Skin Appearance) -Ulcer Cleansing Rinsed/ Irrigated with Saline -Foul Odor after Cleansing No -Anesthetic Used 5% Lidocaine Gel - Nurse 2 - General Ulcer CM Notes Start: 06/22/23 10:08 Freq: Status: Active Protocol: Activity Type Activity Date Activity User E-sign Co-sign Detail Recorded Client Recorded Date Recorded By Document 06/22/23 10:29 [facility] 06/22/23 10:30 06/22/23 10:29 Wound Center Nurse [...] her in the future if needed. Note: [employer] speech recognition core drill operator software was used to create portions of this document. Sound-alike and misspelled words, as well as other core drill operator errors may be contained in the documentation. 06/22/23 1401 <Electronically signed by Mari Veliz DO> Cosigner Signature (if applicable): CC: ~ Signed [facility] Work Phone: 1([phone]) 626-631211-17-2023 Progress note Author Mari Veliz [facility] June 08, 2023 3:20pm Note Date/Time June 08, 2023 3:15pm [facility] [address] [place] [address] Progress Note - Wound Care 06/08/23 1513 MR#: [id number] Acct: [id number] Name: ELSA BLUE Rep #:[id number] : 1955 67 From: Mari Veliz DO PCP: Deysi Castro DO Status:REG R CR Location: History of Present Illness Date of Service: 06/08/23 Chief Complaint: right lateral chest wound History of Wound: Elsa is a 67 yo woman that presents to the wound center today for evaluation and treatment of a nonhealing wound of her right chest wallfrom a chest tube. She was hospitalized the end of February and [facility] for pneumonia and pleural effusion which need surgical debridement. The wound has not healed since the chest tube was removed Mar.24. She has been applying Bacitracin. She states there is light drainage, no erythema or odor or fever or chills. Subjective Subjective Elsa is here today for follow up of [...] Recorded By Document 05/25/23 09:18 [facility] Desktop 05/25/23 09:27 [facility] Document 06/01/23 10:02 RB Desktop 06/01/23 10:03 RB Document 06/08/23 08:29 DL Desktop 06/08/23 08:35 DL 05/25/23 06/01/23 06/08/23 09:18 10:02 08:29 - Today's Visit Information Type of service Follow-up Visit Follow-up Visit Follow-up Visit (Physician/SMOKING PIPE REPAIRER (Physician/SMOKING PIPE REPAIRER (Physician/SMOKING PIPE REPAIRER ) ) ) Arrival Mode Ambulatory Ambulatory [...] Recorded By Document 05/25/23 09:18 [facility] Desktop 05/25/23 09:27 BM Document 06/01/23 [...] Medium (34-66%) Large (67-100%) -Granulation Quality Red [place] -Slough/Fibrin No Yes -Necrosis Amt None Present [...] GM Edit Result 06/01/23 10:06 GM (1) [id number] 06/01/23 10:32 GM Document 06/08/23 09:42 GM [...] symptoms worsen, or new symptoms arise. Note: [employer] speech recognition core drill operator software was used to create portions of this document. Sound-alike and misspelled words, as well as other core drill operator errors may be contained in the documentation. 06/08/23 1520 <Electronically signed by Mari Veliz DO> Cosigner Signature (if applicable): CC: ~ Signed [facility] Work Phone: 1(195) 433-888411-10-2023 Progress note Author [facility] June 01, 2023 12:17pm Note Date/Time June 01, 2023 10:29am [facility] [address] [place] [address] Progress Note - Wound Care 06/01/23 1026 MR#: [id number] Acct: [id number] Name: ELSA BLUE Rep #:[id number] : 1955 67 From: Mari Veliz DO PCP: Deysi Castro DO Status:REG R CR Location: History of Present Illness Date of Service: 06/01/23 Chief Complaint: right lateral chest wound History of Wound: Elsa is a 67 yo woman that presents to the wound center today for evaluation and treatment of a nonhealing wound of her right chest wallfrom a chest tube. She was hospitalized the end of February and [facility] Mar[facility] for pneumonia and pleural effusion which need surgical debridement. The wound has not healed since the chest tube was removed Mar.24. She has been applying Bacitracin. She states there is light drainage, no erythema or odor or fever or chills. Subjective Subjective Elsa is here today for follow up of [...] Recorded By Document 05/25/23 09:18 [facility] Desktop 05/25/23 09:27 [facility] Document 06/01/23 10:02 Desktop 06/01/23 10:03 RB 05/25/23 06/01/23 09:18 10:02 - Today's Visit Information Type of service Follow-up Visit Follow-up Visit (Physician/SMOKING PIPE REPAIRER (Physician/SMOKING PIPE REPAIRER ) ) Arrival Mode Ambulatory Ambulatory Transfer [...] Recorded By Document 05/25/23 09:18 [facility] Desktop 05/25/23 09:27 [facility] Document 06/01/23 10:02 Desktop 06/01/23 10:03 RB 05/25/23 06/01/23 09:18 [...] Large (67-100%) Medium (34-66%) -Granulation Quality Red [place] -Slough/Fibrin No Yes -Necrosis Amt None Present [...] Recorded Date Recorded By Document 05/25/23 10:00 [facility] 05/25/23 10:02 [facility] 06/01/23 [facility]:06 [facility] 06/01/23 10:13 05/25/23 06/01/23 10:00 10:06 Wound [...] Document 05/25/23 10:14 RB Desktop 05/25/23 10:15 05/25/23 10:14 Wound Care [...] symptoms worsen, or new symptoms arise. Note: [employer] speech recognition core drill operator software was used to create portions of this document. Sound-alike and misspelled words, as well as other core drill operator errors may be contained in the documentation. 06/01/23 1217 <Electronically signed by Mari Veliz DO> Cosigner Signature (if applicable): CC: ~ Signed [facility] Work Phone: 1([phone]) 908-323711-03-2023 Progress note Author Mari Veliz [facility] May 25, 2023 2:25pm Note Date/Time May 25, 2023 2 :25pm [facility] [address] [place] [address] Progress Note - Wound Care 05/25/23 1420 MR#: [id number] Acct: [id number] Name: ELSA BLUE Rep #:[id number] : 1955 67 From: Mari Veliz DO PCP: Deysi Castro DO Status:REG R CR Location: History of Present Illness Date of Service: 05/25/23 Chief Complaint: right lateral chest wound History of Wound: Elsa is a 67 yo woman that presents to the wound center today for evaluation and treatment of a nonhealing wound of her right chest wallfrom a chest tube. She was hospitalized the end of February and discharged on Mar.24 from [facility] for pneumonia and pleural effusion which need surgical debridement. The wound has not healed since the chest tube was removed Mar.24. She has been applying Bacitracin. She states there is light drainage, no erythema or odor or fever or chills. Subjective Subjective Elsa is here today for follow up of [...] Recorded By Document 05/25/23 09:18 [facility] Desktop 05/25/23 09:27 [facility] 05/25/23 09:18 - Today's Visit Information Type of service Follow-up Visit (Physician/SMOKING PIPE REPAIRER ) Arrival Mode Ambulatory Transfer Assistance None [...] Recorded By Document 05/25/23 09:18 [facility] Desktop 05/25/23 09:27 [facility] 05/25/23 09:18 Wound Center Nurse 1 [...] symptoms worsen, or new symptoms arise. Note: [employer] speech recognition core drill operator software was used to create portions of this document. Sound-alike and misspelled words, as well as other core drill operator errors may be contained in the documentation. 05/25/23 1425 <Electronically signed by Mari Veliz DO> Cosigner Signature (if applicable): CC: ~ Signed [facility] Work Phone: 1([phone]) 673-972810-27-2023 Progress note Author Mari Veliz [facility] May 18, 2023 1:56pm Note Date/Time May 18, 2023 1 :56pm [facility] [address] [place] [address] Progress Note - Wound Care 05/18/23 1353 MR#: [id number] Acct: [id number] Name: ELSA BLUE Rep #:[id number] : 1955 67 From: Mari Veliz DO PCP: Deysi Castro, DO Status:REG R CR Location: History of Present Illness Date of Service: 05/18/23 Chief Complaint: right lateral chest wound History of Wound: Elsa is a 67 yo woman that presents to the wound center today for evaluation and treatment of a nonhealing wound of her right chest wallfrom a chest tube. She was hospitalized the end of February and discharged on Mar.24 from [facility] for pneumonia and pleural effusion which need surgical debridement. The wound has not healed since the chest tube was removed Mar.24. She has been applying Bacitracin. She states there is light drainage, no erythema or odor or fever or chills. Subjective Subjective Elsa is here today for follow up of [...] service Initial Visit Follow-up Visit Follow-up Visit (Physician/SMOKING PIPE REPAIRER (Physician/SMOKING PIPE REPAIRER ) ) Arrival Mode Ambulatory Ambulatory Ambulatory [...] Yes Yes Yes Communication Assessment Preferred language Prydeinig Testing Consultant Required No Able to Read Yes Able [...] Any Declines Assistive Device With Patient No Culture/Jewish/Shield Operator Cultural/Jewish Needs that may affect No Treatment Plan Would you allow our hospital senior commissary agent to No meet you for the purpose of spiritual/ emotional support? Shield Operator to contact place of pentecostal No Teaching: Wound Center *Welcome to the Wound Center -Person Taught Patient -Teaching Method Discussion -Response to teaching Verbalize understanding 05/18/23 08:30 WC - Today's Visit Information Type of service Follow-up Visit (Physician/SMOKING PIPE REPAIRER ) Arrival Mode Ambulatory Transfer Assistance Accompanied [...] Patient Pain Free? Yes Communication Assessment Preferred bilingual speech language pathologist Required Able to Read Able to Write [...] Ability to Perform Assistive Device With Patient Culture/Jewish/Shield Operator Cultural/Jewish Needs that may affect Treatment Plan Would you allow our hospital senior commissary agent to meet you for the purpose of spiritual/ emotional support? Shield Operator to contact place of pentecostal Teaching: Wound Center *Welcome to the Wound [...] Document 05/18/23 08:30 MT Desktop 05/18/23 08:38 NM 04/27/23 05/04/23 05/11/23 10:48 10:33 10:16 Wound [...] (34-66%) Medium (34-66%) Medium (34-66%) -Granulation Quality [place] Red [place] -Slough/Fibrin Yes Yes -Necrosis Amt Medium (34-66%) [...] Intact -Granulation Amt Large (67-100%) -Granulation Quality Pale,[place],Red -Slough/Fibrin -Necrosis Amt None Present (0 %) [...] Date Recorded By Document 04/27/23 12:27 RB [id number] 04/27/23 12:28 RB Document 05/04/23 11:01 GM [...] symptoms worsen, or new symptoms arise. Note: [employer] speech recognition core drill operator software was used to create portions of this document. Sound-alike and misspelled words, as well as other core drill operator errors may be contained in the documentation. 05/18/23 1356 <Electronically signed by Mari Veliz DO> Cosigner Signature (if applicable): CC: ~ Signed [facility] Work Phone: 1(211) 369-308410-20-2023 Progress note Author Mari Veliz [facility] May 11, 2023 11:07am Note Date/Time May 11, 2023 1 1:07am [facility] [address] [place] [address] Progress Note - Wound Care 05/11/23 1104 MR#: [id number] Acct: [id number] Name: ELSA BLUE Rep #:[id number] : 1955 67 From: Mari Veliz DO PCP: Deysi Castro DO Status:REG R CR Location: History of Present Illness Date of Service: 05/11/23 Chief Complaint: right lateral chest wound History of Wound: Elsa is a 67 yo woman that presents to the wound center today for evaluation and treatment of a nonhealing wound of her right chest wallfrom a chest tube. She was hospitalized the end of February and discharged on Mar.24 from [facility] for pneumonia and pleural effusion which need surgical debridement. The wound has not healed since the chest tube was removed Mar.24. She has been applying Bacitracin. She states there is light drainage, no erythema or odor or fever or chills. Subjective Subjective Elsa is here today for follow up of [...] Start: 04/27/23 10:45 Freq: Status: Active Protocol: WC.LOWEXT Activity Type [...] service Initial Visit Follow-up Visit Follow-up Visit (Physician/SMOKING PIPE REPAIRER (Physician/SMOKING PIPE REPAIRER ) ) Arrival Mode Ambulatory Ambulatory Ambulatory [...] Yes Yes Yes Communication Assessment Preferred language Prydeinig Testing Consultant Required No Able to Read Yes Able [...] Any Declines Assistive Device With Patient No Culture/Jewish/Shield Operator Cultural/Jewish Needs that may affect No Treatment Plan Would you allow our hospital senior commissary agent to No meet you for the purpose of spiritual/ emotional support? Shield Operator to contact place of pentecostal No Teaching: Wound Center *Welcome to the Wound Center -Person Taught Patient -Teaching Method Discussion -Response to teaching Verbalize understanding - Nurse 1 - General Ulcer Measurement [...] (34-66%) Medium (34-66%) Medium (34-66%) -Granulation Quality [place] Red [place] -Slough/Fibrin Yes Yes -Necrosis Amt Medium (34-66%) [...] Recorded Date Recorded By Document 04/27/23 11:13 [facility] 04/27/23 11:19 Document 05/04/23 10:50 [facility] 05/04/23 10:56 Document 05/11/23 10:33 [facility] 05/11/23 10:38 04/27/23 05/04/23 05/11/23 11:13 10:50 [...] Recorded Date Recorded By Document 04/27/23 12:27 [id number] 04/27/23 12:28 RB Document 05/04/23 11:01 GM [...] symptoms worsen, or new symptoms arise. Note: [employer] speech recognition core drill operator software was used to create portions of this document. Sound-alike and misspelled words, as well as other core drill operator errors may be contained in the documentation. 05/11/23 1107 <Electronically signed by Mari Veliz DO> Cosigner Signature (if applicable): CC: ~ Signed [facility] Work Phone: 1([phone]) 182-694210-13-2023 Progress note Author Mari Veliz [facility] May 04, 2023 12:52pm Note Date/Time May 04, 2023 1 2:52pm [facility] [address] [place] [address] Progress Note - Wound Care 05/04/23 1249 MR#: [id number] Acct: [id number] Name: ELSA BLUE Rep #:[id number] : 1955 67 From: Mari Veliz DO PCP: Deysi Castro DO Status:REG R CR Location: History of Present Illness Date of Service: 05/04/23 Chief Complaint: right lateral chest wound History of Wound: Elsa is a 67 yo woman that presents to the wound center today for evaluation and treatment of a nonhealing wound of her right chest wallfrom a chest tube. She was hospitalized the end of February and discharged on Mar.24 from [facility] for pneumonia and pleural effusion which need surgical debridement. The wound has not healed since the chest tube was removed Mar.24. She has been applying Bacitracin. She states there is light drainage, no erythema or odor or fever or chills. Subjective Subjective Elsa is here today for follow up of [...] Type of service Initial Visit Follow-up Visit (Physician/SMOKING PIPE REPAIRER ) Arrival Mode Ambulatory Ambulatory Transfer Assistance [...] Free? Yes Yes Communication Assessment Preferred language Prydeinig Testing Consultant Required No Able to Read Yes Able [...] Any Declines Assistive Device With Patient No Culture/Jewish/Shield Operator Cultural/Jewish Needs that may affect No Treatment Plan Would you allow our hospital senior commissary agent to No meet you for the purpose of spiritual/ emotional support? Shield Operator to contact place of pentecostal No Teaching: Wound Center *Welcome to the [...] Amt Medium (34-66%) Medium (34-66%) -Granulation Quality [place] Red -Slough/Fibrin Yes -Necrosis Amt Medium (34-66%) [...] Date Recorded By Document 04/27/23 12:27 RB [id number] 04/27/23 12:28 RB Document 05/04/23 11:01 Desktop [...] symptoms worsen, or new symptoms arise. Note: easyOwn[employer] speech recognition core drill operator software was used to create portions of this document. Sound-alike and misspelled words, as well as other core drill operator errors may be contained in the documentation. 05/04/23 1252 <Electronically signed by Mari Veliz DO> Cosigner Signature (if applicable): CC: ~ Signed [facility] Work Phone: 1(711) 528-127210-12-2023 History of Present illness Narrative* Sahara Hoyt RT(R) - 05/03/2023 10:30 AM EDT Radiology Service Progress Note PATIENT NAME: Elsa Blue DATE OF SERVICE: May 03, 2023 [...] 03, 2023 10:18 AM documented in this encounterC[facility] History and physical note Author Mari Veliz [facility] April 27, 2023 3:35pm Note Date/Time April 27, 2023 3: 35pm [facility] [address] [place] [address] H&P Exam - Wound Care 04/27/23 1519 MR#: [id number] Acct: [id number] Name: ELSA BLUE Rep #:[id number] : 1955 67 From: Mari Veliz DO PCP: Deysi Castro DO Status:REG R CR Location: History of Present Illness Date of Service: 04/27/23 Chief Complaint: right lateral chest wound History of Wound: Elsa is a 67 yo woman that presents to the wound center today for evaluation and treatment of a nonhealing wound of her right chest wallfrom a chest tube. She was hospitalized the end of February and discharged [facility] Mar[facility] for pneumonia and pleural effusion which need surgical debridement. The wound has not healed since the chest tube was removed Mar.24. She has been applying Bacitracin. She states there is light drainage, no erythema or odor or fever or chills. [facility] Medical History Anemia Anxiety and depression Cerebral [...] Last Taken 01/22/23] warfarin 5 mg tablet (Jullibbyven) 7.5 mg PO DAILY 01/23/23 [History Last [...] Pain Free? Yes Communication Assessment Preferred language Prydeinig Testing Consultant Required No Able to Read Yes Able [...] Any Declines Assistive Device With Patient No Culture/Jewish/Shield Operator Cultural/Jewish Needs that may affect No Treatment Plan Would you allow our hospital senior commissary agent to No meet you for the purpose of spiritual/ emotional support? Shield Operator to contact place of pentecostal No Teaching: Wound Center *Welcome to the Wound Center -Person Taught Patient -Teaching Method Discussion -Response to teaching Verbalize understanding - Nurse 1 - General Ulcer Measurement [...] Attached -Granulation Amt Medium (34-66%) -Granulation Quality [place] -Slough/Fibrin Yes -Necrosis Amt Medium (34-66%) -Necrotic [...] Date Recorded By Document 04/27/23 12:27 RB [id number] 04/27/23 12:28 RB 04/27/23 12:27 Wound Care [...] symptoms worsen, or new symptoms arise. Note: easyOwn[employer] speech recognition core drill operator software was used to create portions of this document. Sound-alike and misspelled words, as well as other core drill operator errors may be contained in the documentation. 04/27/235 <Electronically signed by Mari Veliz DO> Cosigner Signature (if applicable): CC: ~ Signed [facility] Work Phone: 1(540) 708-504909-15-2023 History of Present illness Narrative* Chanel Martinez APRN.SMOKING PIPE REPAIRER - 04/06/2023 10:06 AM EDT Images from the original note were not included. [facility] - OUTPATIENT THORACIC SURGERY CLINIC NOTE [facility] [id number] THORACIC SURGEON: Jeanne Perez M.D. DATE OF SERVICE: April 06, 2023 PRINCIPAL DX: Right empyema (streptococcus anginosus) SURGICAL HX: 03/15/2023: Right VATS converted to right thoracotomy decortication and washout Surgical Pathology: FINAL DIAGNOSIS A - PLEURAL FLUID RIGHT Negative for malignant cells. Marked acute inflammation. REASON FOR VISIT: First post-operative visit HPI: Elsa Blue is a 67 year old female [...] intact. IMAGING/TESTS: CXR 04/06/23: PENDING INTERVAL HISTORY: Elsa Blue returns for first post op visit. She has been doing fairly well. She has had adequate pain management with the use of occasional [place]. Does not need a refill at this [...] inflammation. She will get a CXR in [place] in 4 weeks and will have a phone visit the next day. IMPRESSION: 67 year old female s/p Right VATS converted to right thoracotomy decortication and washout 03/15/23 for right empyema PLAN: - CXR in [place] in 4 weeks and will have a phone visit the next day. - Complete Augmentin as prescribed Chanel Martinez APRN.ERAN documented in this encounterC[facility]09-[facility] History of Present illness Narrative* Ericka Pina RT(R) - 04/06/2023 9:30 AM EDT Radiology Service Progress Note PATIENT NAME: Elsa Blue DATE OF SERVICE: April 06, 2023 [...] 06, 2023 9:18 AM documented in this encounterC[facility]08-[facility]-2023 Miscellaneous Notes* Telephone Encounter - Willard Pearl - 02/20/2023 3:06 PM EDT Reason for call: Ms Rivas called and she would like to schedule an appointment with Contact Name (If not the pt): Evelyn (Pulm Office) Home and cell number: [phone] Diagnosis: Hypoxemia; pneumonia; R. Pleural Effusion Willard Boudreaux documented in this encounterC[facility]07-12-2023 Discharge summary Author Isabella Garcia [facility] January 31, 2023 2:00pm Note Date/Time January 31, 2023 2:00 pm [facility] Physical Therapy [facility] [address] [place] [address] / REHABILITATION SERVICES DISCHARGE SUMMARY MR#: [id number] Acct: [id number] Name: ELSA BLUE Rep #: [id number] : 1955 67 From: Isabella Garcia PT, Cert. MDT Referring Dr.: Dr. Jose Ramon Terry, DO Status: REG RCR Insurance: MEDICARE PART A B [facility] Patient Information Patient Information: ELSA BLUE was seen in my office for [...] Rise Test Seconds: 5 <Electronically signed by Mina Sena PT. MDT> 01/31/23 1400 CC: Dr. Jose Ramon Terry DO; Deysi Castro DO ~ RYAN Signed [facility] Work Phone: 1(712) 580-589507-06-2023 Discharge summary Author Chino Peraltast. [facility] hospital[facility] January 25, 2023 1:18pm Note Date/Time January 25, 2023 1:06p [facility] Medical Records Department [address] [place] [address] Instructions for Home/Discharge Instructions 01/25/23 1303 MR#: [id number] Acct: [id number] Name: ELSA BLUE Rep #:[id number] : 1955 67 From: Chino Masters DO PCP: Deysi Castro DO Status:ADM [...] Visit: hypoxia, right oleural effusion Attending Provider: Chino Masters Primary Care Provider: Deysi Castro Consulting [...] Home, Self Care 01/25/23 1318<Electronically signed by Chino Masters DO>Chino Masters DO CC: Dr. Kenney Vizcarra MD; Deysi Castro DO ~ Signed [facility] Work Phone: 1([phone]) 703-889907-05-2023 Progress note Author Kenney Vizcarra [facility] January 24, 2023 9:07am Note Date/Time January 24, 2023 9:07a m [facility] Medical Records Department [address] [place] [address] Progress Note - Hospitalist 01/24/23 0906 MR#: [id number] Acct: [id number] Name: ELSA BLUE Rep #:[id number] : 1955 67 From: Kenney castillo MD PCP: Deysi Castro, DO Status:ADM I N Location: [place] [address] Subjective Subjective Doing well, still having chest [...] 71.1 H, Lymph % (Auto) 15.5 L, Fleming % (Auto) 8.9, Eos % (Auto) 3.3, [...] Therapeutic INR Charges/Coding Visit Charges Inpatient E&M: 30281 Subs Hosp L2 01/24/23 0907 <Electronically signed by Kenney Vizcrara MD> Cosigner Signature (if applicable): CC: ~ Signed [facility] Work Phone: 1(196) 529-947607-04-2023 History and physical note Author Kenney Vizcarra [facility] January 23, 2023 12:08pm Note Date/Time January 23, 2023 11:02 am [facility] Medical Records Department [address] [place] [address] H&P Exam - Hospitalist 01/23/23 1058 MR#: [id number] Acct: [id number] Name: ELSA BLUE Rep #:[id number] 4 : 1955 67 From: Kenney castillo MD PCP: Deysi Castro DO Status:ADM I NO Location: [facility] [id number] HPI - General General Date of Admission: 01/23/23 HPI Narrative ELSA BLUE, is a 67 F who presents [...] a right pleural effusion with possible loculation. [facility] Medical History Anxiety and depression Diabetes Gastric [...] 5 mg tablet (Marialuisa) 7.5 mg PO MOWE 01/23/23 [History Last [...] 77.1 H, Lymph % (Auto) 11.3 L, Fleming % (Auto) 8.5, Eos % (Auto) 1.9, [...] with colleagues Charges/Coding Visit Charges Inpatient E&M: 00912 Init Hosp L3 01/23/23 1208 <Electronically signed by Kenney Vizcarra MD> Cosigner Signature (if applicable): CC: Dr. Kenney Vizcarra MD; Deysi Castro DO~ Signed [facility] Work Phone: 1(174) 635-772607-04-2023 Discharge summary Author Max Lara [facility] January 23, 2023 8:12am Note Date/Time January 23, 2023 7:39a [facility] Medical Records Department [address] [place] [address] Emergency Department Summary 01/23/23 MR#: [id number] Acct: [id number] Name: ELSA BLUE Rep #:[id number] 8 : 1955 67 From: Max Lara [...] lung disorder or need for supplemental oxygen [facility] Medical History Anxiety and depression [...] 77.1 H Lymph % (Auto) 11.3 L Fleming % (Auto) 8.5 Eos % (Auto) 1.9 [...] Provider] - Disposition Disposition: Acute Care Hospital [facility] What to do if you have Problems For any increased pain, shortness of breath, bleeding, nausea or vomiting, chestpain, or any unexpected problems, contact your Primary Care Provider. Call [facility] ([phone]) or report to the closest Emergency Room. Call 911 if necessary. 01/23/23 0812 <Electronically signed by Max Lara DO> Cosigner Signature (if applicable): CC: Deysi Castro DO ~ Signed [facility] Work Phone: [phone]) 409-569707-01-2023 History of Present illness Narrative* Sean Villalba APRN.SMOKING PIPE REPAIRER - 01/20/2023 11:15 AM EDT Subjective HPI [...] Coumadin due to recurrent clots.Does have a [place] filter. Denies any fever body aches chills [...] tunnel decomp Left PAST SURGICAL H[place]ORY OF [place] PAST SURGICAL HISTORY OF 2015 panelectomy REPAIR [...] understand agrees plan of care. Sean Villalba APRN.CNP documented in this encounterC[facility]12-07-2022 NoteHNO ID: [id number] Author: Carmela Skinner RN Service: Nursing Author Type: Registered Nurse Type: Nursing Progress Note Filed: 06/28/2022 12:58 PM Note Text: Other: 1250-xray took Pt for barium enemaMccullough-Hyde Memorial [id number] History and physical note* Asad Guerin MD - 06/28/2022 1:00 PM EST Images from the original note were not included. HISTORY AND PHYSICAL Elsa Blue 1955 REFERRING PHYSICIAN: Milton Almanzar, * CHIEF COMPLAINT: Consult (colonoscopy) HPI: The patient is a 66 year old female referred for endoscopy. Elsa notes a history of colon polyps. Patient denies any change in bowel habits, weight changes, blood in stools, black tarry stools or abdominal pain. Denies family history of colon issues. The patient notes no upper GI complaints. Elsa has undergone prior endoscopy. The patient had a colonoscopy in December [address] Guerin with removal of adenomatous polyp. She also had a colonoscopy with Dr. Guerin in 2016 at [facility] which was incomplete. Per operative report, [...] the PFSH and ROS obtained by others. Clari Whitmore PA-C PHYSICAL EXAMINATION: General: The patient [...] patient was offered a surgery/procedure at [facility] facility. I have counseled the patient [...] letter to requesting physician via US mail.;l Clari Whitmore PA-C UPDATED HISTORY AND PHYSICAL EXAMINATION [...] SIGNATURE: Asad Guerin III, MD PATIENT NAME: Elsa Blue DATE: June 28, 2022 TIME: 10:49 AM documented in this encounterC[facility]12-07-2022 Nurse Note* Carmela Skinner RN - 06/28/2022 12:58 PM EST Other: 1250-xray took Pt for barium enema documented in this encounterC[facility]10-19-2022 History of Present illness Narrative* Manuela Montana APRN.SMOKING PIPE REPAIRER - 05/10/2022 10:19 AM EDT Manager Education offered: Patient declines. Elsa is a 66 year old who presents for an annual gynecologic exam without complaints. Enjoying fpc with . Postmenopausal: Yes HRT use: No. Last Pap: 01/11/2018 normal HPV: 01/09/2018 negative History of abnormal pap: Yes - cryo ' Last mammogram: 2021 normal History of abnormal mammogram: No Sexually active: No Vaginal dryness: No OB History T0 L1 SAB0 IAB0 Ectopic0 Multiple0 Live Births0 Audio/Video Engineer History LMP: Postmenopausal Age at Menarche: Age at First : Age at Menopause: Audio/Video Engineer History Comments: Sexual Activity: Not Currently; Male; [...] decomp Left PAST SURGICAL HISTORY OF [place] PAST SURGICAL HISTORY OF 2015 panelectomy REPAIR [...] external genitalia normal, normal Bartholin's glands, urethra, Dorrance's glands, no vulvar lesions, no cervical lesions, physiologic discharge present, normal appearing perineal body and perianal region BIMANUAL: non-tender and difficult exam due to body habitus RECTOVAGINAL: deferred. NEURO: alert and oriented x3,exam grossly non-focal EXTREMITIES: normal ASSESSMENT/PLAN: 1) Health maintenance: Pap done Mammogram up to date - done at [facility] Nutrition, exercise and routine health maintenance exams reviewed. Calcium/Vitamin D supplementation information provided. Colon cancer screening: upcoming BMD: up to date, normal [facility] 2) Follow up one year or sooner as needed Manuela Montana APRN.ERAN documented in this encounterC[facility]10-07-2022 History of Present illness Narrative* Clari Whitmore PA-C - 04/28/2022 11:00 AM EDT HISTORY AND PHYSICAL Elsa Blue 1955 REFERRING PHYSICIAN: Milton Almanzar, * CHIEF COMPLAINT: Consult (colonoscopy) HPI: The patient is a 66 year old female referred for endoscopy. Elsa notes a history of colon polyps. Patient denies any change in bowel habits, weight changes, blood in stools, black tarry stools or abdominal pain. Denies family history of colon issues. The patient notes no upper GI complaints. Elsa has undergone prior endoscopy. The patient had a colonoscopy in December [address] Guerin with removal of adenomatous polyp. She also had a colonoscopy with Dr. Guerin in 2016 at [facility] which was incomplete. Per operative report, [...] the PFSH and ROS obtained by others. Clari Whitmore PA-C PHYSICAL EXAMINATION: General: The patient [...] patient was offered a surgery/procedure at [facility]. I have counseled the patient [...] letter to requesting physician via US mail.;l Clari Whitmore PA-C documented in this encounterC[facility]10-07-2022 Nurse Note* Em Park RN - [...] 2016 Em Park RN documented in this encounterC[facility]04-16-2018 History of Past illness Narrative* Problem [...] of this encounter (statuses as of 04/28/2022) [facility] History of Past illness Narrative* Problem [...] of this encounter (statuses as of 05/10/2022) [facility] History of Past illness Narrative* Problem [...] of this encounter (statuses as of 06/29/2022) [facility] History of Past illness Narrative* Problem [...] of this encounter (statuses as of 01/20/2023) [facility] of Past illness Narrative* Problem [...] of this encounter (statuses as of 02/21/2023) [facility] of Past illness Narrative* Problem [...] of this encounter (statuses as of 03/30/2023) [facility] of Past illness Narrative* Problem [...] of this encounter (statuses as of 04/06/2023) [facility] of Past illness Narrative* Problem [...] of this encounter (statuses as of 04/07/2023) [facility] of Past illness Narrative* Problem [...] of this encounter (statuses as of 04/17/2023) [facility] of Past illness Narrative* Problem [...] of this encounter (statuses as of 05/27/2023) [facility] Hospital[facility] summary Author Max Lara [facility] January 23, 2023 8:12am Note Date/Time January 23, 2023 7:39a m [facility] Medical Records Department [address] [place] [address] Emergency Department Summary 01/23/23 MR#: [id number] Acct: [id number] Name: ELSA BLUE Rep #:[id number] 8 : 1955 67 From: Max Lara [...] lung disorder or need for supplemental [facility] Medical History Anxiety and depression Diabetes Gastric [...] 77.1 H Lymph % (Auto) 11.3 L Fleming % (Auto) 8.5 Eos % (Auto) 1.9 [...] Provider] - Disposition Disposition: Acute Care Hospital [facility] What to do if you have Problems For any increased pain, shortness of breath, bleeding, nausea or vomiting, chestpain, or any unexpected problems, contact your Primary Care Provider. Call [facility] ([phone]) or report to the closest Emergency Room. Call 911 if necessary. 01/23/23811 <Electronically signed by Max Lara DO> Cosigner Signature (if applicable): CC: Deysi Castro DO ~ Signed [facility] Work Phone: Evaluation noteNo assessment information available [facility] Work Phone: Evaluation note* Diagnosis Onset Date Resolution Status Iron deficiency acute Peripheral vestibulopathy [place] Restless legs syndrome acute Cerebral convexity meningioma chronic Cerebrovascular small vessel disease chronic Polyneuropathy chronic [facility] Work Phone: Evaluation note* Diagnosis History of colonic polyps- Primary Personal history of colonic polyps Encounter for screening for malignant neoplasm of colon Special screening for malignant neoplasms, colon documented in this encounter [facility]* Diagnosis Encounter for routine gynecologic examination in Medicare patient- Primary Encounter for Papanicolaou smear for cervical cancer screening documented in this encounter [facility]* Diagnosis Encounter for screening for malignant neoplasm of colon- Primary Special screening for malignant neoplasms, colon History of colonic polyps Personal history of colonic polyps Obesity, Class II, BMI 35-39.9 Obesity, unspecified documented in this encounter [facility]* Diagnosis Onset Date Resolution Status Mild cognitive impairment ac [place] Cerebral convexity meningioma chronic Cerebrovascular small vessel disease chronic Polyneuropathy chronic Restless legs syndrome chron ic [facility] Work Phone: Evaluation note* Diagnosis Onset Date Resolution Status Fatigue acute Cerebral convexity meningioma chronic Cerebrovascular small vessel disease chronic Polyneuropathy chronic Restless legs syndrome chron ic History of iron deficiency r esolved Fatigue acute Obesity acute Osteoarthritis of right hip noneactive [facility] Work Phone: Evaluation note* Diagnosis Onset Date Resolution Status Cerebral convexity meningioma chronic Cerebrovascular small vessel disease chronic Fatigue chronic Polyneuropathy chronic Restless legs syndrome chron ic History of iron deficiency r esolved Fatigue chronic Obesity acute Osteoarthritis of right hip noneactive Fatigue chronic [facility] Work Phone: Evaluation note* Diagnosis Pleuritic pain- Primary Painful respiration documented [facility] this encounter [facility]* Diagnosis Onset Date Resolution Status Cerebral convexity meningioma chronic Cerebrovascular small vessel disease chronic Fatigue chronic Polyneuropathy chronic Restless legs syndrome chron ic History of iron deficiency r esolved Fatigue chronic Obesity acute Osteoarthritis of right hip noneactive Fatigue chronic Hypoxia acute Pleural effusion acute Pneumonia acute [facility] Work Phone: Evaluation note* Diagnosis Onset Date Resolution Status Cerebral convexity meningioma chronic Cerebrovascular small vessel disease chronic Fatigue chronic Polyneuropathy chronic Restless legs syndrome chron ic History of iron deficiency r esolved Fatigue chronic Obesity acute Osteoarthritis of right hip noneactive Fatigue chronic Pleural effusion resolved [facility] Work Phone: Evaluation note* Diagnosis Onset Date Resolution Status Polyneuropathy chronic Restless legs syndrome chron ic History of iron deficiency r esolved Obesity acute Osteoarthritis of right hip noneactive Pleural effusion resolved [facility] Work Phone: Evaluation note* Diagnosis Onset Date Resolution Status Fatigue chronic Obesity acute Osteoarthritis of right hip noneactive Fatigue chronic Pleural effusion resolved Monoclonal gammopathy acute Fatigue chronic Polyneuropathy chronic Restless legs syndrome chron ic History of iron deficiency r esolved [facility] Work Phone: Evaluation note* Diagnosis Onset Date Resolution Status Fatigue chronic Obesity acute Osteoarthritis of right hip noneactive Fatigue chronic Pleural effusion resolved Monoclonal gammopathy acute Fatigue chronic Polyneuropathy chronic Restless legs syndrome chron ic History of iron deficiency r esolved Lumbar radiculopathy, right acute Myalgia acute Dyspnea on exertion acute [facility] Work Phone: Evaluation note* Diagnosis Surgery follow-up- Primary Follow-up examination, following unspecified surgery documented [facility] encounter [facility]* Diagnosis 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)- Primary Empyema without mention of fistula documented in this encounter [facility]* Diagnosis Surgery follow-up Follow-up examination, following unspecified surgery [facility] Diagnosis Onset Date Resolution Status Obesity [...] serum immunoglobulin free light chain level chronic [facility] Work Phone: Evaluation note* Diagnosis Onset Date [...] acute COPD (chronic obstructive pulmonary disease) chronic [facility] Work Phone: Evaluation note* Diagnosis 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) Empyema without mention of fistula [facility] this encounter [facility]* Diagnosis Onset Date Resolution Status Monoclonal [...] acute COPD (chronic obstructive pulmonary disease) chronic [facility] Work Phone: Evaluation note* Diagnosis Onset Date [...] acute COPD (chronic obstructive pulmonary disease) chronic [facility] Work Phone: Evaluation note* Diagnosis Onset Date [...] obstructive pulmonary disease) chronic Peripheral vestibulopathy [place] Fatigue chronic Polyneuropathy chronic Restless legs syndrome chron ic History of iron deficiency r esolved [facility] Work Phone: Evaluation note* Diagnosis Onset Date [...] obstructive pulmonary disease) chronic Peripheral vestibulopathy [place] Fatigue chronic Polyneuropathy chronic Restless legs syndrome chron ic History of iron deficiency r esolved Fatigue chronic Fatigue chronic [facility] Work Phone: Evaluation note* Diagnosis Onset Date Resolution Status Peripheral vestibulopathy [place] Fatigue chronic Polyneuropathy chronic Restless legs syndrome chron ic History of iron deficiency r esolved Fatigue chronic Fatigue chronic Hematuria acute Bilateral adrenal adenomas c hronic Elevated serum immunoglobulin free light chain level chronic Fatigue chronic Dysuria acute [facility] Work Phone: Evaluation note* Diagnosis Onset Date Resolution Status Fatigue chronic Fatigue chronic Hematuria acute Bilateral adrenal adenomas c hronic Elevated serum immunoglobulin free light chain level chronic Fatigue chronic Dysuria acute Peripheral vestibulopathy [place] Fatigue chronic Polyneuropathy chronic Restless legs syndrome chron ic History of iron deficiency r esolved Lumbar radiculopathy acute Other intervertebral disc degeneration, lumbar region acute [facility] Work Phone: Evaluation note* Diagnosis Onset Date Resolution Status Fatigue chronic Fatigue chronic Hematuria acute Bilateral adrenal adenomas c hronic Elevated serum immunoglobulin free light chain level chronic Fatigue chronic Dysuria acute Peripheral vestibulopathy [place] Fatigue chronic Polyneuropathy chronic Restless legs syndrome chron ic History of iron deficiency r esolved Lumbar radiculopathy acute Other intervertebral disc degeneration, lumbar region acute Lumbar radiculopathy acute Other intervertebral disc degeneration, lumbar region acute Spinal stenosis of lumbar re gion with neurogenic claudication acute [facility] Work Phone: Evaluation note* Diagnosis Onset Date [...] acute COPD (chronic obstructive pulmonary disease) chronic [facility] Work Phone: Evaluation note* Diagnosis Acute left ankle pain- Primary Acute [facility] Diagnosis Acute [facility] Diagnosis Encounter for gynecologic examination for high-risk patient covered by Medicare- Primary Routine gynecological examination 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) Encounter for Papanicolaou smear for cervical cancer screening Encounter for screening mammogram for breast cancer [facility]* Physical Therapy Referral Location: None Selected * Hematology & Oncology Location: None Selected [facility] Work Phone: Hospital Discharge instructionsAdditional Instructions Do not shower for 1 week. May Begin daily showering with warm water antibacterial soap postop day 7 and then daily. Leave the dressing on for 7day postoperatively then remove prior to first shower and change dressing daily after this until no drainage for 2 consecutive days then may leave open to air. Do not submerge for 3 weeks. If not showering daily after the initial dressing is removed you must clean incision and change dressing daily after the dressing comes off, must come off by 7 days postop. Do not allow animals near the incision area. Keep clean. Follow hip precautions that were reviewed in hospital. Wear compression stockings, may remove at night. Start physical therapy as directed in hospital. Follow prescriptions instructions do not take any other pain medication or differ dosing without consulting your physician. Do not take oral NSAIDs. Call Dr. Terry's office with any concerns.[facility] Work Phone: Hospital Discharge instructionsAdditional Instructions 1. You are doing great and will continue to improve with additional therapy. When the incision is completely healed and there is no discharge you can transition from home health care to [facility].........in the pool with Jille. Either Dr. Zepeda or Dr. Terry will need to write the order for therapy at [facility] and they will need to specify you need aquatic therapy in the pool. Because of all you joints pains and back pain you will do better in the pool because the water offloads body weight and you can strengthen the muscles without stress the back and joints so much. 2. We have had you on Metformin 750 mg twice a day in the hospital and the blood sugars have been good......BUT, you are on a carb control diet. You will go back to 1,000 mg BID of Metformin when you go home. If you want to try and lose more weight increase lean proteins in your diet and decrease carbohydrate intake. Lean proteins include skinless chicken and turkey, fish, shrimp, tofu. It is OK to have some red meat but, buy the 93% lean meat. Weight watcher's is a healthy diet. There are MANY free foods and lots of recipes on the web site. Do not weigh yourself more than once a week. Try and stick to a low salt diet.......salt makes you retain water this increases weight.....it also increases the BP. The weight watchers otilia will also track your salt intake........stay under 4,000 mg daily. Regular exercise helps with weight loss and keeps you more flexible which helps with chronic joint pains. Strengthening your abdominal muscles definitely helps with back pain. Jenae can help you with a routing in the pool to work your abs. YOU CAN DO THIS! 3. I do not know that you need to be on Coumadin chronically. You have had only 2 events of blood clots in your life and both occurred after major surgeries........blood clots after surgery when you are not as active are not uncommon. We call these provoked events. Unprovoked events are when you get blood clots when there is no reason to have a blood clot........no surgeries, no traumatic injuries to the legs, no prolonged immobilization. Provoked events are generally treated with 3-6 months of anticoagulation and then the anticoagulant is stopped. You have never had a clot that was not provoked. some people have a problem with the clotting system and their blood clots more easily than normal. These people have Hypercoagulable disorders and they need chronic anticoagulation to prevent blood clots. There are blood tests that can be done on you to check to see if you have a hypercoagulable disorder. The test can not be done while you are on Warfarin. You would need to be off Warfarin for a week before the tests can be done. Because you just had surgery and are at increased risk for clots I would continue Warfarin for 2-3 months and then follow up with Dr. Mckenzie.......he can order the tests to see if you have a hypercoagulable disorder. 4. Increasing the Lisinopril dose to 20 mg daily helped with the BP control. 5. I can only prescribe a limited amount of pain medication because I am not your PCP or surgeon. If you are running out of pain medication you will need to contact, Dr. Zepeda, Dr. Mackey or Dr. Terry. 6. The R leg is going to be swollen for at least another 1-2 months. The best way to control the swelling is to wear a compression stocking. This should be put on as soon as you get out of bed in the morning and do not take it off until you get in bed at night. I would plan on wearing this for the next 4-6 weeks. Sometimes after a joint replacement you will always have some increased swelling in the involved leg. The surgery cuts through veins and lymphatic channels and swelling can be chronic. [employer] has some really funky compression socks so you might want to check that out. when you are seated in ca chair elevate your legs. Do not sit for longer than an hour without getting up to take a walk. This will help with the stiffness. 7. Your INR was too high on Sunday at 3.9. We held the Warfarin and will recheck in the AM. I am going to have you take 8 mg every day and I am giving you a lab slip to have a bleeding time done on Sunday.........you can call me for the results on . 8. It was a pleasure meeting you and Chino. You are welcome back anytime.....hope you don't need us though. If you or Chino have any questions after you leave rehab please do not hesitate to call me. OFFICE: [phone] CELL: [phone] NURSES STATION ON REHAB: [phone] Date of Discharge: 04/04/25[facility] Work Phone: Hospital Discharge instructionsAmbulatory Orders* PT Referral Location: None [facility] Work Phone: Progress note Author Chino Masters [facility] January 25, 2023 4:33pm Note Date/Time January 25, 2023 4:33p [facility] Medical Records Department [address] [place] [address] Progress Note - Hospitalist 01/25/23 1632 MR#: [id number] Acct: [id number] Name: ELSA BLUE Rep #:[id number] : 1955 67 From: Chino Masters DO PCP: Deysi Castro, Status:ADM I N Location: [facility] [id number] Hospitalist Note Patient was ambulated on room [...] has agreed to use the oxygen accordingly. 01/25/23 1633 <Electronically signed by Chino Masters DO> Cosigner Signature (if applicable): CC: ~ Signed [facility] Work Phone: Progress note Author Gilberto Rasmussen [facility] Note Date/Time May 04, 2025 6 :11pm [facility] [address] [place] [address] OFFICE VISIT Date of Service: 05/04/25 MR#: [id number] Acct: [id number] Patient: ELSA BLUE Rep #: [id number] : 1955 Provider: Dr. Manasa Rasmussen MD Age/Sex: 69/F Location: [facility] Status: Signed Intake Vital Signs 03/31/25 12:05 05/04/25 13:11 Height 5 ft 4.96 in Weight: 228 lb 13 oz BP 116/60 Blood Pressure Location Lt brachial Position Sitting Respiration 17 Pulse 85 Pulse Source Monitor Temp 97.8 F Temp Source Temporal Pulse Oximetry (%) 96 Oxygen Delivery Method room air Intake Visit Reasons: B12 inject Chief Complaint: right hip Allergies amoxicillin Allergy (Mild, Verified 05/04/25 10:29) rash atorvastatin Adverse Reaction (Mild, Verified 05/04/25 10:29) myalgiias levofloxacin (From Levaquin) Adverse Reaction (Unknown, Verified 05/04/25 10:29) Nausea Have you fallen in the past year?: No Office Meds cyanocobalamin (vitamin B-12) 1,000 mcg/mL injection solution Performing Provider: Gilberto Rasmussen MD Performing Location: [facility] Administered by: Chinyere Mandel on 05/04/25 09:34 Dose Route Admin Location Dispensed Lot Number Expiration Date Pack age NDC NDC Local [employer] 1,500 mcg IM left deltoid 1.5 mL [id number] 11/19/26 89835-210-36 [id number] [employer] Comments: The patient presents for B12 injection for treatment of fatigue. She has fatigue. Her last B12 injection was of benefit for fatigue. The patient is awake and alert. B12 1500mcg IM was administered today. There were no complications. Assessment and Plan Assessment and Plan (1) Fatigue: Status: Deleted Qualifiers: Fatigue type: chronic, unspecified Qualified Code(s): R53.82 - Chronic fatigue, unspecified Orders: Orders Vitamin B12 Today R53.83 - Other fatigue Clinical Quality Measures Falls Risk Screening/Assistive Devices Have you fallen in the past year?: No 05/04/25 1811 <Electronically signed by Gilberto yanes MD> Date _ Gilberto Rasmussen MD Cosigner Signature: Date (if applicable) CC: ~ [facility] Work Phone: Progress note Author Jose Ramon Terry [facility] Note Date/Time May 04, 2025 1 1:02am [facility] [address] [place] [address] OFFICE VISIT Date of Service: 05/04/25 MR#: [id number] Acct: [id number] Name: ELSA BLUE Rep #: [id number] : 1955 Provider: Dr. Pancho Terry, Age/Sex: 69/F Location[place] [facility] Status: Signed Intake Vital Signs 02/25/25 09:53 03/31/25 12:05 05/04/25 10:36 Height 5 ft 5 in 5 ft 4.96 in 5 ft 4.69 in Weight: 229 lb BMI 38.5 Intake Visit Reasons: right hip Chief Complaint: right hip Accompanied by: Self Is patient in pain?: No Allergies amoxicillin Allergy (Mild, Verified 05/04/25 10:29) rash atorvastatin Adverse Reaction (Mild, Verified 05/04/25 10:29) myalgiias levofloxacin (From Levaquin) Adverse Reaction (Unknown, Verified 05/04/25 10:29) Nausea Medications ?Medication ?Instructions ?Recorded ?Confirmed ?Type multivitamin with folic acid 400 1 tab PO DAILY SUPPLE MENT 02/11/14 05/04/25 History mcg tablet trazodone 50 mg tablet 100 mg PO QHS SLEEP 02/11/14 05/04/25 History biotin 10,000 mcg capsule 10,000 mcg PO DAILY HAIR LOS S 05/30/21 05/04/25 History calcium 600 mg (as 1 cap PO BID SUPPLEMENT 03/1205/04/25 History carbonate)-vitamin D3 12.5 mcg (500 unit) capsule (Calcium with Vit D3) hydroxychloroquine 200 mg tablet 200 mg PO BID OA 12/2205/04/25 History methotrexate sodium 2.5 mg tablet 20 mg PO SA OA 02/2505/04/25 History Held on 04/03/25. Instructions: Do Not take this medication until Dr. Terry tells you it is OK to restart. CPAP - Continuous Positive Airway 03/10/25 05/04/25 H istory Pressure([facility] INFORMATIONAL USE ONLY) omeprazole 20 mg capsule,delayed 20 mg PO DAILY GERD 0 03/10/25 05/04/25 History release ropinirole 2 mg tablet 2 mg PO 1700 RLS 03/10/25 History ropinirole 2 mg tablet 2 mg PO QHS RLS 03/10/25 History warfarin 4 mg tablet 8 mg PO MOFR BLOOD THINNER 0 03/10/25 05/04/25 History acetaminophen 500 mg tablet 1,000 mg PO Q8H pain 03/2705/04/25 History ascorbic acid (vitamin C) 1,000 mg 1 g PO 1200 supplem ent 03/27/25 05/04/25 History tablet (C-1000) duloxetine 30 mg capsule,delayed 90 mg (3 x 30 mg) PO DAILY #90 caps 04/03/25 05/04/25 Rx release ferrous sulfate 325 mg (65 mg 325 mg PO 1200 SUPPLEMEN T #90 tabs 04/03/25 05/04/25 Rx iron) tablet gabapentin 300 mg capsule 300 mg PO Q8 #90 caps 05/04/25 Rx lisinopril 20 mg tablet 20 mg PO DAILY #30 tabs 03/2305/04/25 Rx metformin 1,000 mg tablet 1,000 mg PO BID DIABETES #60 tabs 04/03/25 05/04/25 Rx sennosides 8.6 mg-docusate sodium 2 tab PO BID #60 tab s 04/03/25 05/04/25 Rx 50 mg tablet (Stimulant Laxative Plus) tizanidine 4 mg tablet 8 mg (2 x 4 mg) PO QHS muscl e 04/03/25 05/04/25 Rx spasticity/leg restlessness #60 tabs tramadol 50 mg tablet 100 mg (2 x 50 mg) PO Q6H [place] N PRN 04/03/25 05/04/25 Rx pain 4-10 14 days #56 tabs warfarin 4 mg tablet (Jantoven) 8 mg (2 x 4 mg) PO DARYL LY #60 tabs 04/03/25 05/04/25 Rx Have you fallen in the past year?: No PFSH Medical History Primary osteoarthritis of right hip Fatty liver Trochanteric bursitis, right hip Spinal stenosis of lumbar region with neurogenic claudication Lumbar radiculopathy Other intervertebral disc degeneration, lumbar region Low back pain COPD (chronic obstructive pulmonary disease) Bilateral adrenal adenomas Elevated serum immunoglobulin free light chain level Abnormal serum total protein level Lumbar radiculopathy, right Monoclonal gammopathy Restless legs syndrome Polyneuropathy Chronic pain syndrome STEFFI (obstructive sleep apnea) Diabetes mellitus, type 2 Physical debility Diverticulosis Presence of IVC filter Chronic anticoagulation Iron deficiency Class II obesity Ambulates with cane Fatty liver Restless legs Syncope Dietary restriction Chronic constipation Gastric reflux History of pain when walking History of GI bleed History of pneumonia Fibromyalgia Rheumatoid arthritis Post-menopausal Wears glasses Depression Anemia Pulmonary embolism DVT (deep venous thrombosis) CPAP (continuous positive airway pressure) dependence Former smoker Shortness of breath on exertion Leg cramps History of edema History of stress test (~04/06/20) Hypoxia History of iron deficiency Claustrophobia Mild cognitive impairment Peripheral vestibulopathy Encounter for screening for COVID-19 Cerebrovascular small vessel disease Cerebral convexity meningioma Neuropathy High cholesterol Glaucoma Cervical radiculitis HTN (hypertension) Renal calculus, bilateral Surgical History Hx of superior vena cava filter placement History of cystoscopy Status post biopsy of thyroid gland (~08/2019) History of colonoscopy (~2014) History of dilation and curettage History of carpal tunnel release of both wrists Status post panniculectomy History of [place]-en-Y gastric bypass History of umbilical hernia repair Family History Mother Heart disease Hypertension Father Heart disease CVA (cerebral vascular accident) Brother Cancer Social History household members: spouse housing: house number of children: 1 Smoking Status: Former smoker Tobacco: How many years used: 40 Electronic Cigarette Use: not used how long ago did patient quit smoking: about a year and half ago second hand exposure: No alcohol intake: current alcohol intake frequency: holidays/special occasions only substance use type: does not use what type of physical activity do you participate in: none do you feel safe at home: Yes HPI right hip Details: This documentation accurately reflects the service provided and the decisions made by me, Dr. Jose Ramon Terry, DO 05/04/25 0856. Part of today?s visit was documented by Doreen Bean RN, acting as scribe. ELSA BLUE is a 69 year old F here today for s/p Right total hip arthroplasty DOS 03-24-25. She is currently in PT and reports it is helpful. patient has questions 1) ok to get flu shot today. Yes she can get a flu shot 2) when can she drive? Typically at the 6 week hcino, she is off narcotics and as long as she feels confident she can. 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 No issue flying at the end of May 4) can she take the raised toilet seat off. Yes she can 5) would like to talk about aqua therapy. Ok to do so 6) ok to sleep on side, which side is better to sleep on? either is fine 7) per pt therapy wanted her to do bending to stretch back but concerned about bending her hip. ok to bend 8) patient will be getting a cortisone injection via Dr. Vicente ( patient un sure of date) asking if this will be ok to do? ok to have this done. 04/06/2025 visit:69 year old F here today for 2 weeks postop right total hip arthroplasty DOS 03/24/2025. She states that she is having quite a bit of pain in the hip. She has been taking the Tramadol for pain. She has noticed that her right leg is bigger than her left ever since surgery. She has been having issuesfinding a chair that is comfortable for her to do her exercises in. She is goingto be having home health coming out starting tomorrow to work on physical therapy with her. She is ambulating with a walker. She did have a doppler on 04/01/25 that came back negative. Ortho Exam General General: Yes no acute distress Neurologic: Yes alert and Yes oriented x3 Psychologic: Yes reasonable and appropriate Right Hip Skin: No Ecchymosis, No soft tissue swelling and No Erythema HIP: She does have a mild scab on the top and bottom of the incision. No signs of infection or cellulitis she is neurovascular intact right lower extremity her swelling is much decreased relatively normal for her at this point. No gross motor or sensory deficits right lower extremity Supplemental Info 11/21/2024 x-ray right hip: Severe joint space narrowing superiorly subchondral sclerosis advanced hip arthrosis 11/07/2024 x-ray lumbar spine: L2-L3 moderate to space narrowing with degenerative endplate changes, L3-L4 moderate disc space narrowing with degenerative endplate changes. Spondylosis and discogenic change of L5-S1. 01/18/2024 x-ray right hip: There is joint space narrowing superior medial there is osteophyte formation 12/25/2022 x-ray right hip: there is mild superior joint space narrowing and spurring 06/08/2022 x-ray lumbar spine: Scoliosis and degenerative changes with probable multilevel spinal stenosis This may be further assessed with CT or MRI if indicated , degenerative disc disease most severe L5-S1 multilevel facet arthrosis. 06/08/2022 x-ray right hip: there is mild superior joint space narrowing and spurring, Coding Level of Care Code Global Post Op Diagnoses Orthopedic aftercare Z47.89 Assessment and Plan Assessment and Plan (1) Orthopedic aftercare: Status: Acute Orders: Orders HIP, UNI W/ Pelvis 2-3 Views Today Z96.641 - Presence of right artificial hip joint Referrals PT Referral Z96.641 - Presence of right artificial hip joint Plan Details Additional Comments: I reviewed post operative x-rays in detail with patient. We discussed that she should wait for 3 months post op to have a dental cleaning and she will require an antibiotic for this. She will call the week before her appointment so I can prescribe this. She would like to do aqua therapy and I am agreeable for her to do this. Follow up in March for a one year post operative visit or sooner ifpain, swelling, numbness or associated symptoms, or concerns develop. All questions answered. Patient in agreement of plan. Clinical Quality Measures Falls Risk Screening/Assistive Devices Have you fallen in the past year?: No 05/04/25 1211 <Electronically signed by Jose Ramon guerra DO> Date _ Jose Ramon Terry DO Cosigner Signature: Date (if applicable) CC: ~ [facility] Work Phone: Reason for referral (narrative)* Outpatient Procedure (Routine) - Closed Specialty Diagnoses / Procedures Referred By Tato sierra Referred To Contact [facility] Diagnoses History of colonic polyps Procedures COLONOSCOPY SCREENING COLONOSCOPY FLX DX W/COLLJ SPEC WHEN PFRMD Clari Whitmore PA-C [address] [facility] [place] [address] [facility] [place] [address] [place] [id number] Referral ID Status Reason Start Date Expiration Date V isits Requested Visits Authorized [id number] Closed Auto-Generated Referral Financial Clearance Not Required 04/28/2022 04/28/2023 1 1 [facility]No reason for referral information [facility]WK[facility] Work Phone: Reason for visit Narrative* Outpatient Procedure (Routine) - Closed Specialty Diagnoses / Procedures Referred By Tato sierra Referred To Contact [facility] Diagnoses History of colonic polyps Procedures COLONOSCOPY SCREENING COLONOSCOPY FLX DX W/COLLJ SPEC WHEN PFRMD Clari Whitmore PA-C [address] [place] [address] [facility] [place] [address] [place] [address] Referral ID Status Reason Start Date Expiration Date V isits Requested Visits Authorized [id number] Closed Auto-Generated Referral Financial Clearance Not Required 04/28/2022 04/28/2023 1 1 [facility]* Diagnostic Procedure Only (Urgent) - Closed Specialty Diagnoses / Procedures Referred By Tato sierra Referred To Contact XR IMAGING Diagnoses Acute left ankle pain Procedures XR ANKLE GENERAL 3V AP/LAT/OBL LEFT RADEX ANKLE COMPLETE MINIMUM 3 VIEWS Moomaw, Leonardo, REGIONAL ENVIRONMENTAL MANAGER.SMOKING PIPE REPAIRER [address] [place] [address] Phone: tel: [place]: [place] [address] Referral ID Status Reason Start Date Expiration Date V isits Requested Visits Authorized [id number] Closed Auto-Generate d Referral 12/27/2024 01/26/2026 1 1 [facility] Summary Purpose Family History No Family History Records Found Relationship Condition Age at Onset Recorded Date/T cristina mother Cardiac disease Unknown Hypertension Unknown father Cardiac disease Unknown Cerebrovascular accident (CVA) Unknown brother Malignant neoplasm Unknown Advance Directives No Advanced Directives Records Found Advance Directive Response Recorded Date/ Time Advance Directives No March 10:55am Living Will Yes April 05, 2021 10:55am Power of Computer Hardware Technician Yes March 10:55am Advance Directive Response Recorded Date/ Time Advance Directives No March 9:55am Living Will Yes April 05, 2021 9:55am Power of Computer Hardware Technician Yes March 9:55am Advance Directive Response Recorded Date/ Time Name of Medical Power of Computer Hardware Technician January 20, 2023 11:55am Advance Directives No March 10:55am Living Will Yes January 20, 2023 1 1:55am Power of Computer Hardware Technician Yes January 20, 2023 11:55am Advance Directive Response Recorded Date/ Time Name of Medical Power of Computer Hardware Technician January 20, 2023 11:55am Advance Directives No March 10:55am Living Will No January 23, 2023 3 :03am Power of Computer Hardware Technician No January 23, 2023 3:03am Advance Directive Response Recorded Date/ Time Name of Medical Power of Computer Hardware Technician January 20, 2023 11:55am Advance Directives No March 10:55am Living Will No January 23, 2023 9 :35am Power of Computer Hardware Technician No January 23, 2023 9:35am Advance Directive Response Recorded Date/ Time Name of Medical Power of Computer Hardware Technician January 20, 2023 11:55am Advance Directives No March 10:55am Living Will Yes March 13 1:48pm Power of Computer Hardware Technician Yes March 13 023 1:48pm Latest Code Status on File Code Status Date Activated Date Inactivated Comments Full Code 03/14/2023 6:28 AM 03/24/2023 7:10 PM Question Answer Comments Full Code Order Discussed With: Patient Advance Directive Response Recorded Date/ Time Name of Medical Power of Computer Hardware Technician January 20, 2023 11:55am Name of Medical Power of Computer Hardware Technician ON FILE March 13, 2023 1:48pm Advance Directives No March 10:55am Living Will Yes March 13 1:48pm Power of Computer Hardware Technician Yes March 13 023 1:48pm Advance Directive Response Recorded Date/ Time Name of Medical Power of Computer Hardware Technician ON FILE March 13, 2023 1:48pm Advance Directives No March 10:55am Living Will Yes March 13 1:48pm Power of Computer Hardware Technician Yes March 13 023 1:48pm Advance Directive Response Recorded Date/ Time Name of Medical Power of Computer Hardware Technician ON FILE March 13, 2023 12:48pm Advance Directives No March 9:55am Living Will Yes March 13 12:48pm Power of Computer Hardware Technician Yes March 13 023 12:48pm Advance Directive Response Recorded Date/ Time Advance Directives No March 9:55am Living Will Yes March 13 12:48pm Power of Computer Hardware Technician Yes March 13 12:48pm Advance Directive Response Recorded Date/ Time Advance Directives No March 10:55am Living Will Yes March 13 1:48pm Power of Computer Hardware Technician Yes March 13 1:48pm Advance Directive Response Recorded Date/ Time Living Will Yes March 13 1:48pm Power of Computer Hardware Technician Yes March 13 1:48pm Advance Directives No March 10:55am Advance Directive Response Recorded Date/ Time Living Will Yes March 13 1:48pm Do you have a Healthcare Power of Computer Hardware Technician? Yes March 13, 2023 1:48pm Advance Directives [...] Do you have a Healthcare Power of Computer Hardware Technician? Yes March 13, 2023 1:48pm Do you have a Healthcare Power of Computer Hardware Technician? Yes January 12, 2025 1:43pm Advance Directives No March 10:55am Advance Directive Response Recorded Date/ Time Do you have a Healthcare Power of Computer Hardware Technician? Yes January 12, 2025 1:43pm Advance Directives No March 10:55am Advance Directive Response Recorded Date/ Time Do you have a Healthcare Power of Computer Hardware Technician? Yes January 12, 2025 1:43pm Do you have a Healthcare Power of Computer Hardware Technician? Yes March 24, 2025 12:37pm Advance Directives No March 10:55am Advance Directive Response Recorded Date/ Time Do you have a Healthcare Pow er of Computer Hardware Technician? Yes January 12, 2025 1:43pm Do you have a Healthcare Pow er of Computer Hardware Technician? Yes March 24, 2025 12:37pm Do you have a Healthcare Pow er of Computer Hardware Technician? Yes March 30, 2025 4:06pm Name of Medical Power of Computer Hardware Technician [place], March 30, 2025 4:06pm Advance Directives No March 10:55am Advance Directive Response Recorded Date/ Time Do you have a Healthcare Pow er of Computer Hardware Technician? Yes March 24, 2025 12:37pm Do you have a Healthcare Pow er of Computer Hardware Technician? Yes March 30, 2025 4:06pm Name of Medical Power of Computer Hardware Technician [place], March 30, 2025 4:06pm Advance Directives No March 10:55am Chief Complaint [...] Visit Admit Date Peripheral vestibulopathy July 31 1:29pm Fatigue July 31, 2024 1: 29pm Restless legs syndrome July 31, 2024 1:29pm Fatigue September 02, 2024 10:44am Fatigue October 02, 2024 11: 25am Hematuria October 06, 2024 10: 58am Bilateral adrenal adenomas October 06 10:58am Elevated serum immunoglobulin free light chain level October 06, 2024 10:58am Reason for Visit Admit Date Peripheral vestibulopathy July 31 1:29pm Fatigue July 31, 2024 1: 29pm [...] Visit Admit Date Peripheral vestibulopathy July 31 1:29pm Fatigue July 31, 2024 1: 29pm [...] 9:4 4am Primary osteoarthritis of right hip Febu 2024 9:44am Spinal stenosis of lumbar re [...] HIP OSTEO March 13, 2025 2: 09pm Chief Complaint Admit Date B12 inject December 08, 2024 11:32 am [...] LEG SWELLING March 09, 2025 2: 44pm PAIN RLE March 09, 2025 2: 54pm RIGHT HIP OSTEO March 13, 2025 2: 09pm ERAS, Right Total Hip Replacement [employer] March 24, 2025 7:16am ERAS, Right Total Hip Replacement [employer] March 24, 2025 10:28am ERAS, Right Total Hip Replacement [employer] March 24, 2025 6:26pm ERAS, Right Total Hip Replacement [employer] March 25, 2025 1:00pm ERAS, Right Total Hip Replacement [employer] March 25, 2025 5:39pm ERAS, Right Total Hip Replacement [employer] March 26, 2025 12:46pm ERAS, Right Total Hip Replacement [employer] March 26, 2025 6:54pm ERAS, Right Total Hip Replacement [employer] March 27, 2025 7:19am ERAS, Right Total Hip Replacement [employer] March 27, 2025 8:25am Reason for Visit Admit Date Fatigue December 08, 2024 11:32 am Fibromyalgia January 29, 2025 10:4 9am Peripheral vestibulopathy January 29 10:49am Fatigue January 29, 2025 10:4 9am Restless legs syndrome January 29, 2025 1 0:49am Obesity February 25, 2025 9:4 4am Primary osteoarthritis of right hip Augu 5 9:44am Spinal stenosis of lumbar re gion with neurogenic claudication February 25, 2025 9:44am Polyneuropathy February 25, 2025 9:4 4am Fatigue March 09, 2025 11 :23am Degenerative joint disease of right hip March 24, 2025 10:28am S/P total right hip arthroplasty Septemb er 2024 10:28am COPD (chronic obstructive pulmonary dise ase) March 24, 2025 10:28am Chief Complaint Admit Date B12 inject December 08, 2024 11:32 am [...] LEG SWELLING March 09, 2025 2: 44pm PAIN RLE March 09, 2025 2: 54pm RIGHT HIP OSTEO March 13, 2025 2: 09pm ERAS, Right Total Hip Replacement [employer] March 24, 2025 7:16am ERAS, Right Total Hip Replacement [employer] March 24, 2025 10:28am ERAS, Right Total Hip Replacement [employer] March 24, 2025 6:26pm ERAS, Right Total Hip Replacement [employer] March 25, 2025 1:00pm ERAS, Right Total Hip Replacement [employer] March 25, 2025 5:39pm ERAS, Right Total Hip Replacement [employer] March 26, 2025 12:46pm ERAS, Right Total Hip Replacement [employer] March 26, 2025 6:54pm ERAS, Right Total Hip Replacement [employer] March 27, 2025 7:19am ERAS, Right Total Hip Replacement [employer] March 27, 2025 8:25am RIGHT TOTAL HIP March 27, 2025 1:30pm RIGHT TOTAL HIP March 27, 2025 2:53pm RIGHT TOTAL HIP March 30, 2025 8:00am ERAS, Right Total Hip Replacement [employer] March 30, 2025 10:48am RIGHT TOTAL HIP March 31, 2025 2:14pm RIGHT TOTAL HIP April 02, 2025 8:17am RIGHT TOTAL HIP April 03, 2025 4:51pm Reason for Visit Admit Date Fatigue December 08, 2024 11:32 am Fibromyalgia January 29, 2025 10:4 9am Peripheral vestibulopathy January 29 10:49am Restless legs syndrome January 29, 2025 1 0:49am Fatigue January 29, 2025 10:4 9am Polyneuropathy February 25, 2025 9:4 4am Primary osteoarthritis of right hip Augu 2024 9:44am Spinal stenosis of lumbar re gion with neurogenic claudication February 25, 2025 9:44am Obesity February 25, 2025 9:4 4am Fatigue March 09, 2025 11 :23am S/P total right hip arthroplasty Septemb er 2024 10:28am COPD (chronic obstructive pulmonary dise ase) March 24, 2025 10:28am Degenerative joint disease of right hip March 24, 2025 10:28am Acute blood loss as cause of postoperati ve anemia March 27, 2025 1:30pm Physical debility March 27, 2025 1:30pm S/P total right hip arthroplasty Septemb er 2024 1:30pm Chronic anticoagulation March 27, 1:30pm Class II obesity March 27, 2025 1:30pm COPD (chronic obstructive pulmonary dise ase) March 27, 2025 1:30pm Diabetes mellitus, type 2 March 27, 2025 1:30pm DVT (deep venous thrombosis) March 272024 1:30pm Elevated serum immunoglobulin free light chain level March 27, 2025 1:30pm Fatty liver March 27, 2025 1:30pm Fibromyalgia March 27, 2025 1:30pm HTN (hypertension) March 27, 2025 1:30pm Lumbar radiculopathy March 27, 2025 1:30pm STEFFI (obstructive sleep apnea) March 27, 2025 1:30pm Polyneuropathy March 27, 2025 1:30pm Presence of IVC filter March 27 1:30pm Primary osteoarthritis of right hip Sept ember 2024 1:30pm Pulmonary embolism March 27, 2025 1:30pm Restless legs syndrome March 27 1:30pm Rheumatoid arthritis March 27, 2025 1:30pm Spinal stenosis of lumbar re gion with neurogenic claudication March 27, 2025 1:30pm Chief Complaint Admit Date B12 inject December 08, 2024 11:32 am [...] LEG SWELLING March 09, 2025 2: 44pm PAIN RLE March 09, 2025 2: 54pm RIGHT HIP OSTEO March 13, 2025 2: 09pm ERAS, Right Total Hip Replacement [employer] March 24, 2025 7:16am ERAS, Right Total Hip Replacement [employer] March 24, 2025 10:28am ERAS, Right Total Hip Replacement [employer] March 24, 2025 6:26pm ERAS, Right Total Hip Replacement [employer] March 25, 2025 1:00pm ERAS, Right Total Hip Replacement [employer] March 25, 2025 5:39pm ERAS, Right Total Hip Replacement [employer] March 26, 2025 12:46pm ERAS, Right Total Hip Replacement [employer] March 26, 2025 6:54pm ERAS, Right Total Hip Replacement [employer] March 27, 2025 7:19am ERAS, Right Total Hip Replacement [employer] March 27, 2025 8:25am RIGHT TOTAL HIP March 27, 2025 1:30pm RIGHT TOTAL HIP March 27, 2025 2:53pm RIGHT TOTAL HIP March 30, 2025 8:00am ERAS, Right Total Hip Replacement [employer] March 30, 2025 10:48am RIGHT TOTAL HIP March 31, 2025 2:14pm RIGHT TOTAL HIP April 02, 2025 8:17am RIGHT TOTAL HIP April 03, 2025 4:51pm right hip April 06, 2025 10:34am Chief Complaint Admit Date PAIN- COPY PCP/ ADD EORDERS LAB AND XRAY January 07, 2025 2:18pm LEFT FLANK PAIN January 12, 2025 12:3 3pm R HIP RX HERE January 13, 2025 10:3 0am 6 M FU January 29, 2025 10:4 9am RIGHT HIP February 25, 2025 9:4 4am B12 inject March 09, 2025 11 :23am RIGHT LEG SWELLING March 09, 2025 2: 44pm PAIN RLE March 09, 2025 2: 54pm RIGHT HIP OSTEO March 13, 2025 2: 09pm ERAS, Right Total Hip Replacement [employer] March 24, 2025 7:16am ERAS, Right Total Hip Replacement [employer] March 24, 2025 10:28am ERAS, Right Total Hip Replacement [employer] March 24, 2025 6:26pm ERAS, Right Total Hip Replacement [employer] March 25, 2025 1:00pm ERAS, Right Total Hip Replacement [employer] March 25, 2025 5:39pm ERAS, Right Total Hip Replacement [employer] March 26, 2025 12:46pm ERAS, Right Total Hip Replacement [employer] March 26, 2025 6:54pm ERAS, Right Total Hip Replacement [employer] March 27, 2025 7:19am ERAS, Right Total Hip Replacement [employer] March 27, 2025 8:25am RIGHT TOTAL HIP March 27, 2025 1:30pm RIGHT TOTAL HIP March 27, 2025 2:53pm RIGHT TOTAL HIP March 30, 2025 8:00am ERAS, Right Total Hip Replacement [employer] March 30, 2025 10:48am RIGHT TOTAL HIP March 31, 2025 2:14pm RIGHT TOTAL HIP April 02, 2025 8:17am RIGHT TOTAL HIP April 03, 2025 4:51pm right hip April 06, 2025 10:34am INR April 06, 2025 11:33am Reason for Visit Admit Date Fibromyalgia January 29, 2025 10:4 9am Peripheral vestibulopathy January 29 10:49am Restless legs syndrome January 29, 2025 1 0:49am Fatigue January 29, 2025 10:4 9am Polyneuropathy February 25, 2025 9:4 4am Primary osteoarthritis of right hip Augu 2024 9:44am Spinal stenosis of lumbar re gion with neurogenic claudication February 25, 2025 9:44am Obesity February 25, 2025 9:4 4am Fatigue March 09, 2025 11 :23am S/P total right hip arthroplasty Septemb er 2024 10:28am COPD (chronic obstructive pulmonary dise ase) March 24, 2025 10:28am Degenerative joint disease of right hip March 24, 2025 10:28am Acute blood loss as cause of postoperati ve anemia March 27, 2025 1:30pm Physical debility March 27, 2025 1:30pm S/P total right hip arthroplasty Septemb er 2024 1:30pm Chronic anticoagulation March 27, 1:30pm Class II obesity March 27, 2025 1:30pm COPD (chronic obstructive pulmonary dise ase) March 27, 2025 1:30pm Diabetes mellitus, type 2 March 27, 2025 1:30pm DVT (deep venous thrombosis) March 272024 1:30pm Elevated serum immunoglobulin free light chain level March 27, 2025 1:30pm Fatty liver March 27, 2025 1:30pm Fibromyalgia March 27, 2025 1:30pm HTN (hypertension) March 27, 2025 1:30pm Lumbar radiculopathy March 27, 2025 1:30pm STEFFI (obstructive sleep apnea) March 27, 2025 1:30pm Polyneuropathy March 27, 2025 1:30pm Presence of IVC filter March 27 1:30pm Primary osteoarthritis of right hip Sept emb2024 1:30pm Pulmonary embolism March 27, 2025 1:30pm Restless legs syndrome March 27 1:30pm Rheumatoid arthritis March 27, 2025 1:30pm Spinal stenosis of lumbar re gion with neurogenic claudication March 27, 2025 1:30pm Orthopedic aftercare April 06 10:34am Chief Complaint Admit Date PAIN- COPY PCP/ ADD EORDERS LAB AND XRAY January 07, 2025 2:18pm LEFT FLANK PAIN January 12, 2025 12:3 3pm R HIP RX HERE January 13, 2025 10:3 0am 6 M FU January 29, 2025 10:4 9am RIGHT HIP February 25, 2025 9:4 4am B12 inject March 09, 2025 11 :23am RIGHT LEG SWELLING March 09, 2025 2: 44pm PAIN RLE March 09, 2025 2: 54pm RIGHT HIP OSTEO March 13, 2025 2: 09pm ERAS, Right Total Hip Replacement [employer] March 24, 2025 7:16am ERAS, Right Total Hip Replacement [employer] March 24, 2025 10:28am ERAS, Right Total Hip Replacement [employer] March 24, 2025 6:26pm ERAS, Right Total Hip Replacement [employer] March 25, 2025 1:00pm ERAS, Right Total Hip Replacement [employer] March 25, 2025 5:39pm ERAS, Right Total Hip Replacement [employer] March 26, 2025 12:46pm ERAS, Right Total Hip Replacement [employer] March 26, 2025 6:54pm ERAS, Right Total Hip Replacement [employer] March 27, 2025 7:19am ERAS, Right Total Hip Replacement [employer] March 27, 2025 8:25am RIGHT TOTAL HIP March 27, 2025 1:30pm RIGHT TOTAL HIP March 27, 2025 2:53pm RIGHT TOTAL HIP March 30, 2025 8:00am ERAS, Right Total Hip Replacement [employer] March 30, 2025 10:48am RIGHT TOTAL HIP March 31, 2025 2:14pm RIGHT TOTAL HIP April 02, 2025 8:17am RIGHT TOTAL HIP April 03, 2025 4:51pm right hip April 06, 2025 10:34am INR April 06, 2025 11:33am B12 inject May 04, 2025 9 :13am LEFT ANKLE AND FOOT May 04, 2025 9 :51am right hip May 04, 2025 1 0:28am Room 2 May 04, 2025 1 0:42am Reason for Visit Admit Date Fibromyalgia January 29, 2025 10:4 9am Peripheral vestibulopathy January 29 10:49am Restless legs syndrome January 29, 2025 1 0:49am Fatigue January 29, 2025 10:4 9am Polyneuropathy February 25, 2025 9:4 4am Primary osteoarthritis of right hip Augu 2024 9:44am Spinal stenosis of lumbar re gion with neurogenic claudication February 25, 2025 9:44am Obesity February 25, 2025 9:4 4am Fatigue March 09, 2025 11 :23am S/P total right hip arthroplasty Septemb er 2024 10:28am COPD (chronic obstructive pulmonary dise ase) March 24, 2025 10:28am Degenerative joint disease of right hip March 24, 2025 10:28am Acute blood loss as cause of postoperati ve anemia March 27, 2025 1:30pm Physical debility March 27, 2025 1:30pm S/P total right hip arthroplasty Septemb er 2024 1:30pm Chronic anticoagulation March 27, 1:30pm Class II obesity March 27, 2025 1:30pm COPD (chronic obstructive pulmonary dise ase) March 27, 2025 1:30pm Diabetes mellitus, type 2 March 27, 2025 1:30pm DVT (deep venous thrombosis) March 272024 1:30pm Elevated serum immunoglobulin free light chain level March 27, 2025 1:30pm Fatty liver March 27, 2025 1:30pm Fibromyalgia March 27, 2025 1:30pm HTN (hypertension) March 27, 2025 1:30pm Lumbar radiculopathy March 27, 2025 1:30pm STEFFI (obstructive sleep apnea) March 27, 2025 1:30pm Polyneuropathy March 27, 2025 1:30pm Presence of IVC filter March 27 1:30pm Primary osteoarthritis of right hip [facility]2024 1:30pm Pulmonary embolism March 27, 2025 1:30pm Restless legs syndrome March 27 1:30pm Rheumatoid arthritis March 27, 2025 1:30pm Spinal stenosis of lumbar re gion with neurogenic claudication March 27, 2025 1:30pm Orthopedic aftercare April 06 10:34am Fatigue May 04, 2025 9 :13am Orthopedic aftercare May 04, 2025 10:28am Chief Complaint Admit Date 6 M FU January 29, 2025 10:4 9am RIGHT HIP February 25, 2025 9:4 4am B12 inject March 09, 2025 11 :23am RIGHT LEG SWELLING March 09, 2025 2: 44pm PAIN RLE March 09, 2025 2: 54pm RIGHT HIP OSTEO March 13, 2025 2: 09pm ERAS, Right Total Hip Replacement [employer] March 24, 2025 7:16am ERAS, Right Total Hip Replacement [employer] March 24, 2025 10:28am ERAS, Right Total Hip Replacement [employer] March 24, 2025 6:26pm ERAS, Right Total Hip Replacement [employer] March 25, 2025 1:00pm ERAS, Right Total Hip Replacement [employer] March 25, 2025 5:39pm ERAS, Right Total Hip Replacement [employer] March 26, 2025 12:46pm ERAS, Right Total Hip Replacement [employer] March 26, 2025 6:54pm ERAS, Right Total Hip Replacement [employer] March 27, 2025 7:19am ERAS, Right Total Hip Replacement [employer] March 27, 2025 8:25am RIGHT TOTAL HIP March 27, 2025 1:30pm RIGHT TOTAL HIP March 27, 2025 2:53pm RIGHT TOTAL HIP March 30, 2025 8:00am ERAS, Right Total Hip Replacement [employer] March 30, 2025 10:48am RIGHT TOTAL HIP March 31, 2025 2:14pm RIGHT TOTAL HIP April 02, 2025 8:17am RIGHT TOTAL HIP April 03, 2025 4:51pm right hip April 06, 2025 10:34am INR April 06, 2025 11:33am B12 inject May 04, 2025 9 :13am LEFT ANKLE AND FOOT May 04, 2025 9 :51am right hip May 04, 2025 1 0:28am Room 2 May 04, 2025 1 0:42am RIGHT HIP REPLACEMENT. RX HERE April 232024 5:53pm Medications Administered Section Inactive Administered Medications - [...] section and content) DATE CREATED AUTHOR 02/10/2020 [facility], [place], operated [facility] DATE CREATED AUTHOR AUTHOR'S ORGANIZ ATION 06/29/2022 [facility] DATE CREATED AUTHOR AUTHOR'S ORGANIZ ATION 03/22/2025 [facility] DATE CREATED AUTHOR AUTHOR'S ORGANIZ ATION 06/03/2025 [facility] Goals (unrecognized section and content) Goals may [...] or prosecute any alcohol or drug abuse patient.[facility] the event this information is protected by the Federal Confidentiality of Alcohol and Drug Abuse Patient Records regulations: The Federal rules restrict any use of the information to criminally investigate or prosecute any alcohol or drug abuse patient.[facility] Hospital[facility] the event this information is protected by the Federal Confidentiality of Alcohol and Drug Abuse Patient Records regulations: The Federal rules restrict any use of the information to criminally investigate or prosecute any alcohol or drug abuse patient.[facility] Hospital[facility] the event this information is protected by the Federal Confidentiality of Alcohol and Drug Abuse Patient Records regulations: The Federal rules restrict any use of the information to criminally investigate or prosecute any alcohol or drug abuse patient.[facility] HospitalIn the event this information is protected by the Federal Confidentiality of Alcohol and Drug Abuse Patient Records regulations: The Federal rules restrict any use of the information to criminally investigate or prosecute any alcohol or drug abuse patient.[facility] HospitalIn the event this information is protected by the Federal Confidentiality of Alcohol and Drug Abuse Patient Records regulations: The Federal rules restrict any use of the information to criminally investigate or prosecute any alcohol or drug abuse patient.[facility] HospitalIn the event this information is protected by the Federal Confidentiality of Alcohol and Drug Abuse Patient Records regulations: The Federal rules restrict any use of the information to criminally investigate or prosecute any alcohol or drug abuse patient.[facility] HospitalIn the event this information is protected by the Federal Confidentiality of Alcohol and Drug Abuse Patient Records regulations: The Federal rules restrict any use of the information to criminally investigate or prosecute any alcohol or drug abuse patient.[facility] HospitalIn the event this information is protected by the Federal Confidentiality of Alcohol and Drug Abuse Patient Records regulations: The Federal rules restrict any use of the information to criminally investigate or prosecute any alcohol or drug abuse patient.[facility] HospitalIn the event this information is protected by the Federal Confidentiality of Alcohol and Drug Abuse Patient Records regulations: The Federal rules restrict any use of the information to criminally investigate or prosecute any alcohol or drug abuse patient.[facility] HospitalIn the event this information is protected by the Federal Confidentiality of Alcohol and Drug Abuse Patient Records regulations: The Federal rules restrict any use of the information to criminally investigate or prosecute any alcohol or drug abuse patient.[facility] HospitalIn the event this information is protected by the Federal Confidentiality of Alcohol and Drug Abuse Patient Records regulations: The Federal rules restrict any use of the information to criminally investigate or prosecute any alcohol or drug abuse patient.[facility] HospitalIn the event this information is protected by the Federal Confidentiality of Alcohol and Drug Abuse Patient Records regulations: The Federal rules restrict any use of the information to criminally investigate or prosecute any alcohol or drug abuse patient.[facility] HospitalIn the event this information is protected by the Federal Confidentiality of Alcohol and Drug Abuse Patient Records regulations: The Federal rules restrict any use of the information to criminally investigate or prosecute any alcohol or drug abuse patient.[facility] HospitalIn the event this information is protected by the Federal Confidentiality of Alcohol and Drug Abuse Patient Records regulations: The Federal rules restrict any use of the information to criminally investigate or prosecute any alcohol or drug abuse patient.[facility] Reason for Visit (unrecogniz ed section [...] content) Team Status: Active Member Role Status Dates Meir Zepeda MD Primary Care Provider Active Team Status: Active Member Role Status Dates Deysi Castro DO Primary Care Provider Active Start: [...] End: October 06, 2024 Dr. Jose Ramon cMkenzie MD Attending Provider Active S tart: October [...] Provider Active St art: 2024 End: 2024 PERSONNEL SCHEDULER. Candida Diaz Attending Provider Active Star t: 2024 End: 2024 PERSONNEL SCHEDULER. Candida Diaz Referring Provider Active Star t: [...] Referring Provider Active Start: January 07, 2025 Manolo Tijerinaefra PERSONNEL SCHEDULER, PERSONNEL SCHEDULER-C Other Provider Active St art: January 07, 2025 Team Status: Active Member Role Status Dates Meir Zepeda MD Primary Care Provider Active St art: January 08, 2025 Dr. Jose Ramon Terry DO Attending Provider Active Start: January 08, 2025 Dr. Jose Ramon Terry DO Referring Provider Active Start: January 08, 2025 Team Status: Inactive Member Role Status Dates Meir Zepeda MD Primary Care Provider Active St art: January 12, 2025 End: January 12, 2025 Dr. Juan Manuel Enamorado DO Emergency Provider Active S tart: January 12, 2025 End: January 12, 2025 Helper/Driver Relationship Specialty Start Date End Date Milton Almanzar [address] [facility] [address] [place] [address] PCP - General Family Medicine 04/12/22 Helper/Driver Relationship Specialty Start Date End Date Milton Almanzar [address] [place] [address] PCP - General Family Medicine 04/12/22 Helper/Driver Relationship Specialty Start Date End Date Milton Almanzar [address] [facility] [address] [place] [address] PCP - General Family Medicine 04/12/22 Team Status: Active Member Role Status Dates Dr. Jeet Diaz III, MD Family Provider Active Dr. Milton Almanzar MD Primary Care Provider Active Team Status: Inactive Member Role Status Dates Dr. Milton Almanzar MD Primary Care Provider, Referr ing Provider Active Dr. Gilberto Rasmussen MD Attending Provider Active Team Status: Inactive Member Role Status Dates Dr. Milton Almanzar MD Primary Care Provider Active Josefa Rocha PERSONNEL SCHEDULER, PERSONNEL SCHEDULER-C Attending Provider Active Team Status: Inactive Member Role Status Dates Dr. Milton Almanzar MD Primary Care Provider Active Dr. Gilberto Rasmussen MD Attending Provider, Referring Provider Active Team Status: Inactive Member Role Status Dates Dr. Milton Almanzar MD Primary Care Pr ovider, Attending Provider, Referring Provider Active Team Status: Active Member Role Status Dates Dr. Jeet Diaz III, MD Family Provider Active Deysi Castro , DO Primary Care Provider Active Team Status: [...] Dr. Osiris Arana MD Emergency Provider Active Helper/Driver Relationship Specialty Start Date End Date Milton Almanzar [address] [facility] [address] [place] [address] PCP - General Family Medicine 04/12/22 Team [...] Active Dr. Kenney Vizcarra MD Admit Provi radha, Attending Provider, Other Provider Active Team Status: Active Member Role Status Dates Deysi Castro , DO Primary Care Provider Active Dr. Max Lara , DO Emergency Provider Active Dr. Kenney Vizcarra MD Admit Provider, Other Pro vider Active Dr. Chino Masters , DO Attending Provider, Other Pro vider Active Team Status: Inactive Member Role Status Dates Deysi Castro , DO Primary Care Provider Active Dr. Max Lara , DO Emergency Provider Active Dr. Kenney Vizcarra MD Admit Provider, Other Pro vider Active Dr. Chino Masters , DO Attending Provider Active Team [...] MD Attending Provider, Referrin g Provider Active Helper/Driver Relationship Specialty Start Date End Date Milton Almanzar [address] [place] [address] PCP - General Family Medicine 04/12/22 Gerard Peryera V [address] [place] [address] Internal Medicine 02/09/23 Team Status: Inactive Member Role Status Dates Deysi Castro , DO Primary Care Provider Active Meir Zepeda MD Attending Provider, Referring Provide r Active Team Status: Inactive Member Role Status Dates Deysi Castro , DO Primary Care Provider, Referring Provider Active Milton Caldwell PERSONNEL SCHEDULER, PERSONNEL SCHEDULER-C Attending Provider Active Team Status: Active Member Role Status Dates Deysi Castro , DO Primary Care Provider Active Cristina Guevara LPN Attending Provider Active Team Status: Inactive Member Role Status Dates Deysi Castro , DO Primary Care Provider Active Milton Caldwell PERSONNEL SCHEDULER, PERSONNEL SCHEDULER-C Attending Provider, Referring Pro vider Active Helper/Driver Relationship Specialty Start Date End Date Doreen Baig ([facility]) PCP - General 03/13/23 Gerard Pereyra V [address] [facility] [place] [id number] Internal Medicine 02/09/23 Helper/Driver Relationship Specialty Start Date End Date Doreen Baig ([facility]) PCP - General 03/13/23 Gerard Pereyra V [address] [facility] [place] [phone] Internal Medicine 02/09/23 Team Status: Inactive Member [...] Castro , DO Primary Care Provider Active Kathleen De [...] Dr. Gerard Pereyra MD Referring Provider Active Helper/Driver Relationship Specialty Start Date End Date Doreen Baig ([facility]) PCP - General 03/13/23 Gerard Pereyra V [address] [place] [phone] Internal Medicine 02/09/23 Team Status: Inactive Member Role Status Dates Deysi Albaer , DO Primary Care Provider, Referring Provider Active Jovan Chavez PA, PA Attending Provider Active Team Status: Inactive Member Role Status Dates Deysi Castro , DO Primary Care Provider Active Dr. Jose Ramon Mckenzie MD Attending Provider, Referring Pro vider Active Team Status: Inactive Member Role Status Dates Deysimindi Castro DO Primary Care Provider Active Dr. Doris Yip MD Attending Provider, Referring Provider Active Team Status: Inactive Member Role Status Dates Deysi Albaer , DO Primary Care Provider, Attending Provider Active Team Status: Inactive Member Role Status Dates Deysi Albasrini DO Primary Care Provider, Referring Provider Active Bernard LANE, PA Attending Provider Active Team Status: Inactive Member Role Status Dates Deysi Baeza Matthew DO Primary Care Provider, Referring Provider Active Dr. Juve Johnson MD Attending Provider Active Team Status: Active Member Role Status Petey Deysi Castro DO Primary Care Provider Active Dr. Juve Johnson MD Attending Provider, Referring Pr ovider Active Team Status: Active Member Role Status Dates Deysimindi Castro DO Primary Care Provider Active Dr. Doris Yip MD Attending Provider, Referring Provider Active Dr. Rajani Wharton MD Other Provider Active Team Status: Inactive Member Role Status Dates Deysi Mayfieldrachel Primary Care Provider Active UTE Salvador Attending Provider, Referring Pr ovider Active Team Status: Inactive Member Role Status Dates Deysi Castro DO Primary Care Provider Active Dr. Juve Johnson MD Attending Provider, Referring Pr ovider Active Team Status: Inactive Member Role Status Dates Deysi Aryan DO Matthew Primary Care Provider Active Dr. Doris Yip MD Attending Provider, Referring Provider Active Dr. Rajani Wharton MD Other Provider Active Team Status: Inactive Member Role Status Dates Meir Zepeda MD Primary Care Provider Active St art: July 07, 2024 End: July 07, 2024 Josefa Rocha PERSONNEL SCHEDULER, PERSONNEL SCHEDULER-C Attending Provider Active S tart: July 07, 2024 End: July 07, 2024 Josefa Rocha PERSONNEL SCHEDULER, PERSONNEL SCHEDULER-C Referring Provider Active S tart: July 07, [...] Team Status: Inactive Member Role Status Petey Rasmussen MD Attending Provider Active Start: July [...] 2024 End: August 04, 2024 Josefa Rocha PERSONNEL SCHEDULER, PERSONNEL SCHEDULER-C Attending Provider Active S tart: August 04, 2024 End: August 04, 2024 Josefa Rocha PERSONNEL SCHEDULER, PERSONNEL SCHEDULER-C Referring Provider Active S tart: August 04, [...] Status: Inactive Member Role Status Dates Meir Zepeda MD Primary Care Provider Active St art: October 02, 2024 End: October 02, 2024 Meir Zepeda MD Referring Provider Active Start : October 02, 2024 End: October 02, 2024 Dr. Gilberto Rasmussen MD Attending Provider Active Start: October 02, 2024 End: October 02, 2024 Team Status: Inactive Member Role Status Dates Meir Zepeda MD Primary Care Provider Active [...] December 08, 2024 End: December 08, 2024 Helper/Driver Relationship Specialty Start Date End Date Meir Zepeda MD [address] [place], [place] [address] PCP - General Internal Medicine 12/27/24 Gerard Pereyra V [address] [place] [address] Internal Medicine 02/09/23 Helper/Driver Relationship Specialty Start Date End Date Meir Zepeda MD [address] [place] [address] PCP - General Internal Medicine 12/27/24 Gerard Pereyra V [address] [place] [phone] Internal Medicine 02/09/23 Helper/Driver Relationship Specialty Start Date End Date Meir Zepeda MD [address] [place], [place] [id number] PCP - General Internal Medicine 12/27/24 Gerard Pereyra V [address] [place] [phone] Internal Medicine 02/09/23 Team Status: Inactive Member Role Status Petey Zepeda MD Primary Care Provider Active St art: January 07, 2025 End: January 07, 2025 Dr. Doris Yip MD Attending Provider Active Start: January 07, 2025 End: January 07, 2025 Dr. Doris Yip MD Referring Provider Active Start: January 07, 2025 End: January 07, 2025 Man[facility] PERSONNEL SCHEDULER, PERSONNEL SCHEDULER-C Other Provider Active St art: January 07, [...] Team Status: Active Member Role/Relationship Status Petey Zepeda MD Primary Care Provider Active Team Status: Inactive Member Role/Relationship Status Petey Zepeda MD Primary Care Provider Active St art: October 02, 2024 End: October 02, 2024 Dr. Gilberto Rasmussen MD Attending Provider Active Start: October 02, 2024 End: October 02, 2024 Dr. Gilberto Rasmussen MD Referring Provider Active Start: October 02, 2024 End: October 02, 2024 Team Status: Inactive Member Role/Relationship Status Petey Zepeda MD Primary Care Provider Active St art: October 06, 2024 End: October 06, 2024 Meir Zepeda MD Referring Provider Active Start : October 06, 2024 End: October 06, 2024 Dr. Jose Ramon Mckenzie MD Attending Provider Active S tart: October 06, 2024 End: October 06, 2024 Team Status: Inactive Member Role/Relationship Status Petey Zepeda MD Primary Care Provider Active St art: October 23, 2024 End: October 23, 2024 Dr. Doris Yip MD Attending Provider Active Start: October 23, 2024 End: October 23, 2024 Dr. Doris Yip MD Referring Provider Active Start: October 23, 2024 End: October 23, 2024 Team Status: Inactive Member Role/Relationship Status Petey Zepeda MD Primary Care Provider Active St art: November 06, 2024 End: November 06, 2024 Dr. Gilberto Rasmussen MD Attending Provider Active Start: November 06, 2024 End: November 06, 2024 Dr. Gilberto Rasmussen MD Referring Provider Active Start: November 06, 2024 End: November 06, 2024 Team Status: Inactive Member Role/Relationship Status Petey Zepeda MD Primary Care Provider Active St art: November 07, 2024 End: November 07, 2024 Meir Zepeda MD Referring Provider Active Start : November 07, 2024 End: November 07, 2024 Dr. Juve Johnson MD Attending Provider Active Start: November 07, 2024 End: November 07, 2024 Team Status: Inactive Member Role/Relationship Status Petey Zepeda MD Primary Care Provider Active St art: November 07, 2024 End: November 07, 2024 Dr. Librado Benjamin MD Attending Provider Active S tart: November 07, 2024 End: November 07, 2024 Team Status: Inactive Member Role/Relationship Status Petey Zepeda MD Primary Care Provider Active St art: 2024 End: 2024 PERSONNEL SCHEDULER. Candida Diaz Attending Provider Active Star t: 2024 End: 2024 PERSONNEL SCHEDULER. Candida Diaz Referring Provider Active Star t: 2024 End: 2024 Team Status: Inactive Member Role/Relationship Status Petey Zepeda MD Primary Care Provider Active St art: November 21, 2024 End: November 21, 2024 Meir Zepeda MD Referring Provider Active Start : November 21, 2024 End: November 21, 2024 Dr. JoseR amon Terry DO Attending Provider Active Start: November 21, 2024 End: November 21, 2024 Team Status: Inactive Member Role/Relationship Status Petey Zepeda MD Primary Care Provider Active St art: November 21, 2024 End: November 21, 2024 Dr. Librado Benjamin MD Attending Provider Active S tart: November 21, 2024 End: November 21, 2024 Team Status: Inactive Member Role/Relationship Status Petey Zepeda MD Primary Care Provider Active St art: December 08, 2024 End: December 08, 2024 Dr. Gilberto Rasmussen MD Attending Provider Active Start: December 08, 2024 End: December 08, 2024 Dr. Gilberto Rasmussen MD Referring Provider Active Start: December 08, 2024 End: December 08, 2024 Team Status: Inactive Member Role/Relationship Status Petey Zepeda MD Primary Care Provider Active St art: January 07, 2025 End: January 07, 2025 Dr. Doris Yip MD Attending Provider Active Start: January 07, 2025 End: January 07, 2025 Dr. Doris Yip MD Referring Provider Active Start: January 07, 2025 End: January 07, 2025 Manolo Valdez PERSONNEL SCHEDULER, PERSONNEL SCHEDULER-C Other Provider Active St art: January 07, 2025 End: January 07, 2025 Team Status: Inactive Member Role/Relationship Status Petey Zepeda MD Primary Care Provider Active St art: January 12, 2025 End: January 12, 2025 Dr. Juan Manuel Enamorado DO Attending Provider Active S tart: January 12, 2025 End: January 12, 2025 Dr. Juan Manuel Enamorado DO Emergency Provider Active S tart: January 12, 2025 End: January 12, 2025 Team Status: Inactive Member Role/Relationship Status Dates Meir Zepeda MD Primary Care Provider Active St art: January 13, 2025 End: January 13, 2025 Dr. Jose Ramon Terry DO Attending Provider Active Start: January 13, 2025 End: January 13, 2025 Dr. Jose Ramon Terry DO Referring Provider Active Start: January 13, 2025 End: January 13, 2025 Team Status: Inactive Member Role/Relationship Status Petey Zepeda MD Primary Care Provider Active St art: January 29, 2025 End: January 29, 2025 Meir Zepeda MD Referring Provider Active Start : January 29, 2025 End: January 29, 2025 Dr. Gilberto Rasmussen MD Attending Provider Active Start: January 29, 2025 End: January 29, 2025 Team Status: Inactive Member Role/Relationship Status Petey Zepeda MD Primary Care Provider Active St art: November 06, 2024 End: November 06, 2024 Dr. Gilberto Rasmussen MD Attending Provider Active Start: November 06, 2024 End: November 06, 2024 Dr. Gilberto Rasmussen MD Referring Provider Active Start: November 06, 2024 End: November 06, 2024 Team Status: Inactive Member Role/Relationship Status Petey Zepeda MD Primary Care Provider Active St art: November 07, 2024 End: November 07, 2024 Meir Zepeda MD Referring Provider Active Start : November 07, 2024 End: November 07, 2024 Dr. Juve Johnson MD Attending Provider Active Start: November 07, 2024 End: November 07, 2024 Team Status: Inactive Member Role/Relationship Status Petey Zepeda MD Primary Care Provider Active St art: November 07, 2024 End: November 07, 2024 Dr. Librado Benjamin MD Attending Provider Active S tart: November 07, 2024 End: November 07, 2024 Team Status: Inactive Member Role/Relationship Status Petey Zepeda MD Primary Care Provider Active St art: 2024 End: 2024 NP. Candida Shaverfield Attending Provider Active Star t: 2024 End: 2024 PERSONNEL SCHEDULER. Candida Joe Referring Provider Active Star t: 2024 End: 2024 Team Status: Inactive Member Role/Relationship Status Petey Zepeda MD Primary Care Provider Active St art: November 21, 2024 End: November 21, 2024 Meir Zepeda MD Referring Provider Active Start : November 21, 2024 End: November 21, 2024 Dr. Jose Ramon Terry DO Attending Provider Active Start: November 21, 2024 End: November 21, 2024 Team Status: Inactive Member Role/Relationship Status Petey Zepeda MD Primary Care Provider Active St art: November 21, 2024 End: November 21, 2024 Dr. Librado Benjamin MD Attending Provider Active S tart: November 21, 2024 End: November 21, 2024 Team Status: Inactive Member Role/Relationship Status Petey Zepeda MD Primary Care Provider Active St art: December 08, 2024 End: December 08, 2024 Dr. Gilberto Rasmussen MD Attending Provider Active Start: December 08, 2024 End: December 08, 2024 Dr. Gilberto Rasmussen MD Referring Provider Active Start: December 08, 2024 End: December 08, 2024 Team Status: Inactive Member Role/Relationship Status Petey Zepeda MD Primary Care Provider Active St art: January 07, 2025 End: January 07, 2025 Dr. Doris Yip MD Attending Provider Active Start: January 07, 2025 End: January 07, 2025 Dr. Doris Yip MD Referring Provider Active Start: January 07, 2025 End: January 07, 2025 Manolo [facility] PERSONNEL SCHEDULER, PERSONNEL SCHEDULER-C Other Provider Active St art: January 07, 2025 End: January 07, 2025 Team Status: Inactive Member Role/Relationship Status Petey Zepeda MD Primary Care Provider Active St art: January 12, 2025 End: January 12, 2025 Dr. Juan Manuel Enamorado DO Attending Provider Active S tart: January 12, 2025 End: January 12, 2025 Dr. Juan Manuel Enamorado DO Emergency Provider Active S tart: January 12, 2025 End: January 12, 2025 Team Status: Inactive Member Role/Relationship Status Petey Zepeda MD Primary Care Provider Active St art: January 13, 2025 End: January 13, 2025 Dr. Jose Ramon Terry DO Attending Provider Active Start: January 13, 2025 End: January 13, 2025 Dr. Jose Ramon Terry DO Referring Provider Active Start: January 13, 2025 End: January 13, 2025 Team Status: Inactive Member Role/Relationship Status Petey Zepeda MD Primary Care Provider Active St art: January 20, 2025 Dr. Rajani Wharton MD Attending Provider Active Start: January 20, 2025 Team Status: Inactive Member Role/Relationship Status Petey Zepeda MD Primary Care Provider Active St art: January 29, 2025 End: January 29, 2025 Meir Zepeda MD Referring Provider Active Start : January 29, 2025 End: January 29, 2025 Dr. Gilberto Rasmussen MD Attending Provider Active Start: January 29, 2025 End: January 29, 2025 Team Status: Active Member Role/Relationship Status Petey Zepeda MD Primary Care Provider Active St art: February 19, 2025 Meir Zepeda MD Attending Provider Active Start : February 19, 2025 Meir Zepeda MD Referring Provider Active Start : February 19, 2025 Team Status: Inactive Member Role/Relationship Status Petey Zepeda MD Primary Care Provider Active St art: February 25, 2025 End: February 25, 2025 Meir Zepeda MD Referring Provider Active Start : February 25, 2025 End: February 25, 2025 Dr. Jose Ramon Terry DO Attending Provider Active Start: February 25, 2025 End: February 25, 2025 Team Status: Inactive Member Role/Relationship Status Petey Zepeda MD Primary Care Provider Active St art: 2024 End: 2024 NP. Candida Diaz Attending Provider Active Star t: 2024 End: 2024 NP. Candida Diaz Referring Provider Active Star t: 2024 End: 2024 Team Status: Inactive Member Role/Relationship Status Petey Zepeda MD Primary Care Provider Active St art: November 21, 2024 End: November 21, 2024 Meir Zepeda MD Referring Provider Active Start : November 21, 2024 End: November 21, 2024 Dr. Jose Ramon Terry DO Attending Provider Active Start: November 21, 2024 End: November 21, 2024 Team Status: Inactive Member Role/Relationship Status Petey Zepeda MD Primary Care Provider Active St art: November 21, 2024 End: November 21, 2024 Dr. Librado Benjamin MD Attending Provider Active S tart: November 21, 2024 End: November 21, 2024 Team Status: Inactive Member Role/Relationship Status Petey Zepeda MD Primary Care Provider Active St art: December 08, 2024 End: December 08, 2024 Dr. Gilberto Rasmussen MD Attending Provider Active Start: December 08, 2024 End: December 08, 2024 Dr. Gilberto Rasmussen MD Referring Provider Active Start: December 08, 2024 End: December 08, 2024 Team Status: Inactive Member Role/Relationship Status Petey Zepeda MD Primary Care Provider Active St art: January 07, 2025 End: January 07, 2025 Dr. Doris Yip MD Attending Provider Active Start: January 07, 2025 End: January 07, 2025 Dr. Doris Yip MD Referring Provider Active Start: January 07, 2025 End: January 07, 2025 Manolo [facility] PERSONNEL SCHEDULER, PERSONNEL SCHEDULER-C Other Provider Active St art: January 07, 2025 End: January 07, 2025 Team Status: Inactive Member Role/Relationship Status Petey Zepeda MD Primary Care Provider Active St art: January 12, 2025 End: January 12, 2025 Dr. Juan Manuel Enamorado DO Attending Provider Active S tart: January 12, 2025 End: January 12, 2025 Dr. Juan Manuel Enamorado DO Emergency Provider Active S tart: January 12, 2025 End: January 12, 2025 Team Status: Inactive Member Role/Relationship Status Petey Zepeda MD Primary Care Provider Active St art: January 13, 2025 End: January 13, 2025 Dr. Jose Ramon Terry DO Attending Provider Active Start: January 13, 2025 End: January 13, 2025 Dr. Jose Ramon Terry DO Referring Provider Active Start: January 13, 2025 End: January 13, 2025 Team Status: Inactive Member Role/Relationship Status Dates Meir Zepeda MD Primary Care Provider Active St art: January 20, 2025 Dr. Rajani Wharton MD Attending Provider Active Start: January 20, 2025 Team Status: Inactive Member Role/Relationship Status Dates Meir Zepeda MD Primary Care Provider Active St art: January 29, 2025 End: January 29, 2025 Meir Zepeda MD Referring Provider Active Start : January 29, 2025 End: January 29, 2025 Dr. Gilberto Rasmussen MD Attending Provider Active Start: January 29, 2025 End: January 29, 2025 Team Status: Inactive Member Role/Relationship Status Dates Meir Zepeda MD Primary Care Provider Active St art: February 19, 2025 End: February 19, 2025 Meir Zepeda MD Attending Provider Active Start : February 19, 2025 End: February 19, 2025 Meir Zepeda MD Referring Provider Active Start : February 19, 2025 End: February 19, 2025 Team Status: Inactive Member Role/Relationship Status Petey Zepeda MD Primary Care Provider Active St art: February 25, 2025 End: February 25, 2025 Meir Zepeda MD Referring Provider Active Start : February 25, 2025 End: February 25, 2025 Dr. Jose Ramon Terry DO Attending Provider Active Start: February 25, 2025 End: February 25, 2025 Team Status: Inactive Member Role/Relationship Status Petey Zepeda MD Primary Care Provider Active St art: March 09, 2025 End: March 09, 2025 Meir Zepeda MD Referring Provider Active Start : March 09, 2025 End: March 09, 2025 Dr. 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 Jose Ramon Terry DO Attending Provider Active Start: November 21, 2024 End: November 21, 2024 Team Status: Inactive Member Role/Relationship Status Petey Zepeda MD Primary Care Provider Active St art: November 21, 2024 End: November 21, 2024 Dr. Librado Benjamin MD Attending Provider Active S tart: November 21, 2024 End: November 21, 2024 Team Status: Inactive Member Role/Relationship Status Petey Zepeda MD Primary Care Provider Active St art: December 08, 2024 End: December 08, 2024 Dr. Gilberto Rasmussen MD Attending Provider Active Start: December 08, 2024 End: December 08, 2024 Dr. Gilberto Rasmussen MD Referring Provider Active Start: December 08, 2024 End: December 08, 2024 Team Status: Inactive Member Role/Relationship Status Petey Zepeda MD Primary Care Provider Active St art: January 07, 2025 End: January 07, 2025 Dr. Doris Yip MD Attending Provider Active Start: January 07, 2025 End: January 07, 2025 Dr. Doris Yip MD Referring Provider Active Start: January 07, 2025 End: January 07, 2025 [facility] PERSONNEL SCHEDULER, PERSONNEL SCHEDULER-C Other Provider Active St art: January 07, 2025 End: January 07, 2025 Team Status: Inactive Member Role/Relationship Status Petey Zepeda MD Primary Care Provider Active St art: January 12, 2025 End: January 12, 2025 Dr. Juan Manuel Enamorado DO Attending Provider Active S tart: January 12, 2025 End: January 12, 2025 Dr. Juan Manuel Enamorado DO Emergency Provider Active S tart: January 12, 2025 End: January 12, 2025 Team Status: Inactive Member Role/Relationship Status Petey Zepeda MD Primary Care Provider Active St art: January 13, 2025 End: January 13, 2025 Dr. Jose Ramon Terry DO Attending Provider Active Start: January 13, 2025 End: January 13, 2025 Dr. Jose Ramon Terry DO Referring Provider Active Start: January 13, 2025 End: January 13, 2025 Team Status: Inactive Member Role/Relationship Status Petey Zepeda MD Primary Care Provider Active St art: January 20, 2025 Dr. Rajani Wharton MD Attending Provider Active Start: January 20, 2025 Team Status: Inactive Member Role/Relationship Status Petey Zepeda MD Primary Care Provider Active St art: January 29, 2025 End: January 29, 2025 Dr. Gilberto Rasmussen MD Attending Provider Active Start: January 29, 2025 End: January 29, 2025 Dr. Gilberto Rasmussen MD Referring Provider Active Start: January 29, 2025 End: January 29, 2025 Team Status: Inactive Member Role/Relationship Status Petey Zepeda MD Primary Care Provider Active St art: February 19, 2025 End: February 19, 2025 Meir Zepeda MD Attending Provider Active Start : February 19, 2025 End: February 19, 2025 Meir Zepeda MD Referring Provider Active Start : February 19, 2025 End: February 19, 2025 Team Status: Inactive Member Role/Relationship Status Petey Zepeda MD Primary Care Provider Active St art: February 25, 2025 End: February 25, 2025 Meir Zepeda MD Referring Provider Active Start : February 25, 2025 End: February 25, 2025 Dr. Jose Ramon Terry DO Attending Provider Active Start: February 25, 2025 End: February 25, 2025 Team Status: Inactive Member Role/Relationship Status Petey Zepeda MD Primary Care Provider Active St art: March 09, 2025 End: March 09, 2025 Meir Zepeda MD Referring Provider Active Start : March 09, 2025 End: March 09, 2025 Dr. Gilberto Rasmussen MD Attending Provider Active Start: March 09, 2025 End: March 09, 2025 Team Status: Inactive Member Role/Relationship Status Petey Zepeda MD Primary Care Provider Active St art: March 09, 2025 End: March 09, 2025 Dr. Jose Ramon Terry DO Attending Provider Active Start: March 09, 2025 End: March 09, 2025 Dr. Jose Ramon Terry DO Referring Provider Active Start: March 09, 2025 End: March 09, 2025 Team Status: Active Member Role/Relationship Status Petey Zepeda MD Primary Care Provider Active St art: March 13, 2025 Dr. Jose Ramon Terry DO Attending Provider Active Start: March 13, 2025 Dr. Jose Ramon Terry DO Referring Provider Active Start: March 13, 2025 Team Status: Inactive Member Role/Relationship Status Petey Zepeda MD Primary Care Provider Active St art: March 13, 2025 End: March 13, 2025 Dr. Jose Ramon Terry DO Attending Provider Active Start: March 13, 2025 End: March 13, 2025 Dr. Jose Ramon Terry DO Referring Provider Active Start: March 13, 2025 End: March 13, 2025 Team Status: Inactive Member Role/Relationship Status Petey Zepeda MD Primary Care Provider Active St art: December 08, 2024 End: December 08, 2024 Dr. Gilberto Rasmussen MD Attending Provider Active Start: December 08, 2024 End: December 08, 2024 Dr. Gilberto Rasmussen MD Referring Provider Active Start: December 08, 2024 End: December 08, 2024 Team Status: Inactive Member Role/Relationship Status Petey Zepeda MD Primary Care Provider Active St art: January 07, 2025 End: January 07, 2025 Dr. Doris Yip MD Attending Provider Active Start: January 07, 2025 End: January 07, 2025 Dr. Doris Yip MD Referring Provider Active Start: January 07, 2025 End: January 07, 2025 [facility] PERSONNEL SCHEDULER, PERSONNEL SCHEDULER-C Other Provider Active St art: January 07, 2025 End: January 07, 2025 Team Status: Inactive Member Role/Relationship Status Petey Zepeda MD Primary Care Provider Active St art: January 12, 2025 End: January 12, 2025 Dr. Juan Manuel Enamorado DO Attending Provider Active S tart: January 12, 2025 End: January 12, 2025 Dr. Juan Manuel Enamorado DO Emergency Provider Active S tart: January 12, 2025 End: January 12, 2025 Team Status: Inactive Member Role/Relationship Status Petey Zepeda MD Primary Care Provider Active St art: January 13, 2025 End: January 13, 2025 Dr. Jose Ramon Terry DO Attending Provider Active Start: January 13, 2025 End: January 13, 2025 Dr. Jose Ramon Terry DO Referring Provider Active Start: January 13, 2025 End: January 13, 2025 Team Status: Inactive Member Role/Relationship Status Petey Zepeda MD Primary Care Provider Active St art: January 20, 2025 Dr. Rajani Wharton MD Attending Provider Active Start: January 20, 2025 Team Status: Inactive Member Role/Relationship Status Petey Zepeda MD Primary Care Provider Active St art: January 29, 2025 End: January 29, 2025 Dr. Gilberto Rasmussen MD Attending Provider Active Start: January 29, 2025 End: January 29, 2025 Dr. Gilberto Rasmussen MD Referring Provider Active Start: January 29, 2025 End: January 29, 2025 Team Status: Inactive Member Role/Relationship Status Petey Zepeda MD Primary Care Provider Active St art: February 19, 2025 End: February 19, 2025 Meir Zepeda MD Attending Provider Active Start : February 19, 2025 End: February 19, 2025 Meir Zepeda MD Referring Provider Active Start : February 19, 2025 End: February 19, 2025 Team Status: Inactive Member Role/Relationship Status Petey Zepeda MD Primary Care Provider Active St art: February 25, 2025 End: February 25, 2025 Meir Zepeda MD Referring Provider Active Start : February 25, 2025 End: February 25, 2025 Dr. Jose Ramon Terry DO Attending Provider Active Start: February 25, 2025 End: February 25, 2025 Team Status: Inactive Member Role/Relationship Status Petey Zepeda MD Primary Care Provider Active St art: March 09, 2025 End: March 09, 2025 Meir Zepeda MD Referring Provider Active Start : March 09, 2025 End: March 09, 2025 Dr. Gilberto Rasmussen MD Attending Provider Active Start: March 09, 2025 End: March 09, 2025 Team Status: Inactive Member Role/Relationship Status Dates Meir Zepeda MD Primary Care Provider Active St art: March 09, 2025 End: March 09, 2025 Dr. Jose Ramon Terry DO Attending Provider Active Start: March 09, 2025 End: March 09, 2025 Dr. Jose Ramon Terry DO Referring Provider Active Start: March 09, 2025 End: March 09, 2025 Team Status: Active Member Role/Relationship Status Dates Dr. Addi Hassan MD Attending Provider Active Start: March 09, 2025 Dr. Jose Ramon Terry DO Referring Provider Active Start: March 09, 2025 Team Status: Inactive Member Role/Relationship Status Dates Meir Zepeda MD Primary Care Provider Active St art: March 13, 2025 End: March 13, 2025 Dr. Jose Ramon Terry DO Attending Provider Active Start: March 13, 2025 End: March 13, 2025 Dr. Jose Ramon Terry DO Referring Provider Active Start: March 13, 2025 End: March 13, 2025 Team Status: Active Member Role/Relationship Status Dates Meir Zepeda MD Primary Care Provider Active St art: March 24, 2025 Dr. Jose Ramon Terry DO Admit Provider Active St art: March 24, 2025 Dr. Jose Ramon Terry DO Attending Provider Active Start: March 24, 2025 Dr. Jose Ramon Terry DO Referring Provider Active Start: March 24, 2025 Dr. Jose Ramon Terry DO Other Provider Active St art: March 24, 2025 Dr. Juarez Muñoz MD Other Provider Active Start : March 24, 2025 Team Status: Inactive Member Role/Relationship Status Dates Meir Zepeda MD Primary Care Provider Active St art: March 24, 2025 End: March 27, 2025 Dr. Jose Ramon Terry DO Admit Provider Active St art: March 24, 2025 End: March 27, 2025 Dr. Jose Ramon Terry DO Attending Provider Active Start: March 24, 2025 End: March 27, 2025 Dr. Jose Ramon Terry DO Referring Provider Active Start: March 24, 2025 End: March 27, 2025 Dr. Juarez Muñoz MD Other Provider Active Start : March 24, 2025 End: March 27, 2025 Dr. Chino Masters , DO Other Provider Active S tart: March 24, 2025 End: March 27, 2025 Team Status: Active Member Role/Relationship Status Dates Meir Zepeda MD Primary Care Provider Active St art: March 24, 2025 Dr. Jose Ramon Terry DO Admit Provider Active St art: March 24, 2025 Dr. Jose Ramon Terry DO Referring Provider Active Start: March 24, 2025 Dr. Jose Ramon Terry DO Other Provider Active St art: March 24, 2025 Dr. Juarez Muñoz MD Other Provider Active Start : March 24, 2025 Dr. Chino Masters DO Attending Provider Active Start: March 24, 2025 Dr. Chino Masters , Other Provider Active S tart: March 24, 2025 Team Status: Active Member Role/Relationship Status Petey Zepeda MD Primary Care Provider Active St art: March 25, 2025 Dr. Jose Ramon Terry DO Admit Provider Active St art: March 25, 2025 Dr. Jose Ramon Terry DO Attending Provider Active Start: March 25, 2025 Dr. Jose Ramon Terry DO Referring Provider Active Start: March 25, 2025 Dr. Jose Ramon Terry DO Other Provider Active St art: March 25, 2025 Dr. Juarez Muñoz MD Other Provider Active Start : March 25, 2025 Dr. Chino Masters DO Other Provider Active S tart: March 25, 2025 Team Status: Active Member Role/Relationship Status Petey Zepeda MD Primary Care Provider Active St art: March 25, 2025 Dr. Jose Ramon Terry DO Admit Provider Active St art: March 25, 2025 Dr. Jose Ramon Terry DO Referring Provider Active Start: March 25, 2025 Dr. Jose Ramon Terry DO Other Provider Active St art: March 25, 2025 Dr. Juarez Muñoz MD Other Provider Active Start : March 25, 2025 Dr. Chino Masters DO Attending Provider Active Start: March 25, 2025 Dr. Chino Masters DO Other Provider Active S tart: March 25, 2025 Team Status: Active Member Role/Relationship Status Dates Meir Zepeda MD Primary Care Provider Active St art: March 26, 2025 Dr. Jose Ramon Terry DO Admit Provider Active St art: March 26, 2025 Dr. Jose Ramon Teryr DO Referring Provider Active Start: March 26, 2025 Dr. Jose Ramon Terry DO Other Provider Active St art: March 26, 2025 Dr. Juarez Muñoz MD Other Provider Active Start : March 26, 2025 Dr. Chino Masters DO Other Provider Active S tart: March 26, 2025 Dr. Juve Johnson MD Attending Provider Active Start: March 26, 2025 Team Status: Active Member Role/Relationship Status Dates Meir Zepeda MD Primary Care Provider Active St art: March 26, 2025 Dr. Jose Ramon Terry DO Admit Provider Active St art: March 26, 2025 Dr. Jose Ramon Terry DO Referring Provider Active Start: March 26, 2025 Dr. Jose Ramon Terry DO Other Provider Active St art: March 26, 2025 Dr. Juarez Muñoz MD Other Provider Active Start : March 26, 2025 Dr. Chino Masters DO Attending Provider Active Start: March 26, 2025 Dr. Chino Masters DO Other Provider Active S tart: March 26, 2025 Team Status: Active Member Role/Relationship Status Dates Meir Zepeda MD Primary Care Provider Active St art: March 27, 2025 Dr. Jose Ramon Terry DO Admit Provider Active St art: March 27, 2025 Dr. Jose Ramon Terry DO Attending Provider Active Start: March 27, 2025 Dr. Jose Ramon Terry DO Referring Provider Active Start: March 27, 2025 Dr. Jose Ramon Terry DO Other Provider Active St art: March 27, 2025 Dr. Juarez uMñoz MD Other Provider Active Start : March 27, 2025 Dr. Chino Masters DO Other Provider Active S tart: March 27, 2025 Team Status: Active Member Role/Relationship Status Dates Meir Zepeda MD Primary Care Provider Active St art: March 27, 2025 Dr. Jose Ramon Terry DO Admit Provider Active St art: March 27, 2025 Dr. Jose Ramon Terry DO Referring Provider Active Start: March 27, 2025 Dr. Jose Ramon Terry DO Other Provider Active St art: March 27, 2025 Dr. Juarez Muñoz MD Other Provider Active Start : March 27, 2025 Dr. Chino Masters DO Attending Provider Active Start: March 27, 2025 Dr. Chino Masters DO Other Provider Active S tart: March 27, 2025 Team Status: Active Member Role/Relationship Status Dates Meir Zepeda MD Primary Care Provider Active St art: March 25, 2025 Dr. Jose Ramon Terry DO Admit Provider Active St art: March 25, 2025 Dr. Jose Ramon Terry DO Other Provider Active St art: March 25, 2025 Dr. Juarez Muñoz MD Other Provider Active Start : March 25, 2025 Dr. Chino Masters DO Attending Provider Active Start: March 25, 2025 Dr. Chino Masters DO Other Provider Active S tart: March 25, 2025 Team Status: Active Member Role/Relationship Status Dates Meir Zepeda MD Primary Care Provider Active St art: March 26, 2025 Dr. Jose Ramon Terry DO Admit Provider Active St art: March 26, 2025 Dr. Jose Ramon Terry DO Other Provider Active St art: March 26, 2025 Dr. Juarez Muñoz MD Other Provider Active Start : March 26, 2025 Dr. Chino Masters DO Attending Provider Active Start: March 26, 2025 Dr. Chino Masters DO Other Provider Active S tart: March 26, 2025 Team Status: Active Member Role/Relationship Status Dates Meir Zepeda MD Primary Care Provider Active St art: March 27, 2025 Dr. Jose Ramon Terry DO Admit Provider Active St art: March 27, 2025 Dr. Jose Ramon Terry DO Other Provider Active St art: March 27, 2025 Dr. Juarez Muñoz MD Other Provider Active Start : March 27, 2025 Dr. Chino Masters DO Attending Provider Active Start: March 27, 2025 Dr. Chino Masters DO Other Provider Active S tart: March 27, 2025 Team Status: Inactive Member Role/Relationship Status Dates Meir Zepeda MD Primary Care Provider Active St art: March 27, 2025 End: April 04, 2025 Dr. Farida Zavala DO Admit Provider Active Start: March End: April 04, 2025 Dr. Farida Zavala DO Attending Provider Active Start: March End: April 04, 2025 Dr. Farida Zavala DO Referring Provider Active Start: March End: April 04, 2025 Team Status: Active Member Role/Relationship Status Dates Meir Zepeda MD Primary Care Provider Active St art: March 27, 2025 Dr. Farida Zavala DO Admit Provider Active Start: March Dr. Farida Zavala DO Attending Provider Active Start: March Dr. Farida Zavala DO Other Provider Active Start: March Team Status: Active Member Role/Relationship Status Dates Meir Zepeda MD Primary Care Provider Active St art: March 27, 2025 Dr. Jaiden Lizarraga MD Attending Provider Active S tart: March 27, 2025 Team Status: Active Member Role/Relationship Status Dates Meir Zepeda MD Primary Care Provider Active St art: March 30, 2025 Dr. Farida Zavala DO Admit Provider Active Start: March Dr. Farida Zavala DO Attending Provider Active Start: March Dr. Farida Zavala DO Referring Provider Active Start: March Dr. Farida Zavala DO Other Provider Active Start: March Team Status: Active Member Role/Relationship Status Dates Meir Zepeda MD Primary Care Provider Active St art: March 30, 2025 Dr. Jose Ramon Terry DO Admit Provider Active St art: March 30, 2025 Dr. Jose Ramon Terry DO Attending Provider Active Start: March 30, 2025 Dr. Jose Ramon Terry DO Referring Provider Active Start: March 30, 2025 Dr. Jose Ramon Terry DO Other Provider Active St art: March 30, 2025 Dr. Juarez Muñoz MD Other Provider Active Start : March 30, 2025 Dr. Chino Masters DO Other Provider Active S tart: March 30, 2025 Team Status: Active Member Role/Relationship Status Petey Zepeda MD Primary Care Provider Active St art: March 31, 2025 Dr. Farida Zavala DO Admit Provider Active Start: March Dr. Farida Zavala DO Attending Provider Active Start: March Dr. Farida Zavala DO Referring Provider Active Start: March Dr. Farida Zavala DO Other Provider Active Start: March Team Status: Active Member Role/Relationship Status Dates Meir Zepeda MD Primary Care Provider Active St art: April 02, 2025 Dr. Farida Zavala DO Admit Provider Active Start: March Dr. Farida Zavala DO Attending Provider Active Start: March Dr. Farida Zavala DO Referring Provider Active Start: March Dr. Farida Zavala DO Other Provider Active Start: March Team Status: Active Member Role/Relationship Status Dates Meir Zepeda MD Primary Care Provider Active St art: April 03, 2025 Dr. Farida Zavala DO Admit Provider Active Start: March Dr. Farida Zavala DO Attending Provider Active Start: March Dr. Farida Zavala DO Referring Provider Active Start: March Dr. Farida Zavala DO Other Provider Active Start: March Team Status: Inactive Member Role/Relationship Status Pteey Zepeda MD Primary Care Provider Active St art: April 06, 2025 End: April 06, 2025 Meir Zepeda MD Referring Provider Active Start : April 06, 2025 End: April 06, 2025 Dr. Jose Ramon Terry DO Attending Provider Active Start: April 06, 2025 End: April 06, 2025 Team Status: Active Member Role/Relationship Status Petey Zepeda MD Primary care physician Active Team Status: Inactive Member Role/Relationship Status Petey Zepeda MD Primary care physician Active S tart: January 07, 2025 End: January 07, 2025 Dr. Doris Yip MD Attending physician Active Start: January 07, 2025 End: January 07, 2025 Dr. Doris Yip MD Referring Provider Active Start: January 07, 2025 End: January 07, 2025 [facility] PERSONNEL SCHEDULER, PERSONNEL SCHEDULER-C Nurse Practitioner Active Start: January 07, 2025 End: January 07, 2025 Team Status: Inactive Member Role/Relationship Status Petey Zepeda MD Primary care physician Active S tart: January 12, 2025 End: January 12, 2025 Dr. Juan Manuel Enamorado DO Attending physician Active Start: January 12, 2025 End: January 12, 2025 Dr. Juan Manuel Enamorado DO Emergency Department Physician Ac tive Start: January 12, 2025 End: January 12, 2025 Team Status: Inactive Member Role/Relationship Status Petey Zepeda MD Primary care physician Active S tart: January 13, 2025 End: January 13, 2025 Dr. Jose Ramon Terry DO Attending physician Active Start: January 13, 2025 End: January 13, 2025 Dr. Jose Ramon Terry DO Referring Provider Active Start: January 13, 2025 End: January 13, 2025 Team Status: Inactive Member Role/Relationship Status Petey Zepeda MD Primary care physician Active S tart: January 20, 2025 Dr. Rajani Wharton MD Attending physician Active Start: January 20, 2025 Team Status: Inactive Member Role/Relationship Status Petey Zepeda MD Primary care physician Active S tart: January 29, 2025 End: January 29, 2025 Dr. Gilberto Rasmussen MD Attending physician Active Start: January 29, 2025 End: January 29, 2025 Dr. Gilberto Rasmussen MD Referring Provider Active Start: January 29, 2025 End: January 29, 2025 Team Status: Inactive Member Role/Relationship Status Petey Zepeda MD Primary care physician Active S tart: February 19, 2025 End: February 19, 2025 Meir Zepeda MD Attending physician Active Star t: February 19, 2025 End: February 19, 2025 Meir Zepeda MD Referring Provider Active Start : February 19, 2025 End: February 19, 2025 Team Status: Inactive Member Role/Relationship Status Petey Zepeda MD Primary care physician Active S tart: February 25, 2025 End: February 25, 2025 Meir Zepeda MD Referring Provider Active Start : February 25, 2025 End: February 25, 2025 Dr. Jose Ramon Terry DO Attending physician Active Start: February 25, 2025 End: February 25, 2025 Team Status: Inactive Member Role/Relationship Status Petey Zepeda MD Primary care physician Active S tart: March 09, 2025 End: March 09, 2025 Dr. Gilberto Rasmussen MD Attending physician Active Start: March 09, 2025 End: March 09, 2025 Dr. Gilberto Rasmussen MD Referring Provider Active Start: March 09, 2025 End: March 09, 2025 Team Status: Inactive Member Role/Relationship Status Dates Meir Zepeda MD Primary care physician Active S tart: March 09, 2025 End: March 09, 2025 Dr. Jose Ramon Terry DO Attending physician Active Start: March 09, 2025 End: March 09, 2025 Dr. Jose Ramon Terry DO Referring Provider Active Start: March 09, 2025 End: March 09, 2025 Team Status: Active Member Role/Relationship Status Dates Dr. Addi Hassan MD Attending physician Active Start: March 09, 2025 Dr. Joes Ramon Terry DO Referring Provider Active Start: March 09, 2025 Team Status: Inactive Member Role/Relationship Status Dates Meir Zepeda MD Primary care physician Active S tart: March 13, 2025 End: March 13, 2025 Dr. Jose Ramon Terry DO Attending physician Active Start: March 13, 2025 End: March 13, 2025 Dr. Jose Ramon Terry DO Referring Provider Active Start: March 13, 2025 End: March 13, 2025 Team Status: Active Member Role/Relationship Status Dates Meir Zepeda MD Primary care physician Active S tart: March 24, 2025 Dr. Jose Ramon Terry DO Admitting physician Active Start: March 24, 2025 Dr. Jose Ramon Terry DO Attending physician Active Start: March 24, 2025 Dr. Jose Ramon Terry DO Referring Provider Active Start: March 24, 2025 Dr. Jose Ramon Terry DO Nurse Practitioner Active Start: March 24, 2025 Dr. Juarez Muñoz MD Nurse Practitioner Active S tart: March 24, 2025 Team Status: Inactive Member Role/Relationship Status Petey Zepeda MD Primary care physician Active S tart: March 24, 2025 End: March 27, 2025 Dr. Jose Ramon Terry DO Admitting physician Active Start: March 24, 2025 End: March 27, 2025 Dr. Jose Ramon Terry DO Attending physician Active Start: March 24, 2025 End: March 27, 2025 Dr. Jose Ramon Terry DO Referring Provider Active Start: March 24, 2025 End: March 27, 2025 Dr. Juarez Muñoz MD Nurse Practitioner Active S tart: March 24, 2025 End: March 27, 2025 Dr. Chino Masters DO Nurse Practitioner Active Start: March 24, 2025 End: March 27, 2025 Team Status: Active Member Role/Relationship Status Dates Meir Zepeda MD Primary care physician Active S tart: March 24, 2025 Dr. Jose Ramon Terry DO Admitting physician Active Start: March 24, 2025 Dr. Jose Ramon Terry DO Referring Provider Active Start: March 24, 2025 Dr. Jose Ramon Terry DO Nurse Practitioner Active Start: March 24, 2025 Dr. Juarez Muñoz MD Nurse Practitioner Active S tart: March 24, 2025 Dr. Chino Masters DO Attending physician Active Start: March 24, 2025 Dr. Chino Masters DO Nurse Practitioner Active Start: March 24, 2025 Team Status: Active Member Role/Relationship Status Dates Meir Zepeda MD Primary care physician Active S tart: March 25, 2025 Dr. Jose Ramon Terry DO Admitting physician Active Start: March 25, 2025 Dr. Jose Ramon Terry DO Attending physician Active Start: March 25, 2025 Dr. Jose Ramon Terry DO Referring Provider Active Start: March 25, 2025 Dr. Jose Ramon Terry DO Nurse Practitioner Active Start: March 25, 2025 Dr. Juarez Muñoz MD Nurse Practitioner Active S tart: March 25, 2025 Dr. Chino Masters DO Nurse Practitioner Active Start: March 25, 2025 Team Status: Active Member Role/Relationship Status Dates Meir Zepeda MD Primary care physician Active S tart: March 25, 2025 Dr. Jose Ramon Terry DO Admitting physician Active Start: March 25, 2025 Dr. Jose Ramon Terry DO Nurse Practitioner Active Start: March 25, 2025 Dr. Juarez Muñoz MD Nurse Practitioner Active S tart: March 25, 2025 Dr. Chino Masters DO Attending physician Active Start: March 25, 2025 Dr. Chino Masters DO Nurse Practitioner Active Start: March 25, 2025 Team Status: Active Member Role/Relationship Status Dates Meir Zepeda MD Primary care physician Active S tart: March 26, 2025 Dr. Jose Ramon Terry DO Admitting physician Active Start: March 26, 2025 Dr. Jose Ramon Terry DO Referring Provider Active Start: March 26, 2025 Dr. Jose Ramon Terry DO Nurse Practitioner Active Start: March 26, 2025 Dr. Juarez uMñoz MD Nurse Practitioner Active S tart: March 26, 2025 Dr. Chino Masters DO Nurse Practitioner Active Start: March 26, 2025 Dr. Juve Johnson MD Attending physician Active Start: March 26, 2025 Team Status: Active Member Role/Relationship Status Dates Meir Zepeda MD Primary care physician Active S tart: March 26, 2025 Dr. Jose Ramon Terry DO Admitting physician Active Start: March 26, 2025 Dr. Jose Ramon Terry DO Nurse Practitioner Active Start: March 26, 2025 Dr. Juarez Muñoz MD Nurse Practitioner Active S tart: March 26, 2025 Dr. Chino Masters DO Attending physician Active Start: March 26, 2025 Dr. Chino Masters DO Nurse Practitioner Active Start: March 26, 2025 Team Status: Active Member Role/Relationship Status Dates Meir Zepeda MD Primary care physician Active S tart: March 27, 2025 Dr. Jose Ramon Terry DO Admitting physician Active Start: March 27, 2025 Dr. Jose Ramon Terry DO Attending physician Active Start: March 27, 2025 Dr. Jose Ramon Terry DO Referring Provider Active Start: March 27, 2025 Dr. Jose Ramon Terry DO Nurse Practitioner Active Start: March 27, 2025 Dr. Juarez Muñoz MD Nurse Practitioner Active S tart: March 27, 2025 Dr. Chino Masters DO Nurse Practitioner Active Start: March 27, 2025 Team Status: Active Member Role/Relationship Status Dates Meir Zepeda MD Primary care physician Active S tart: March 27, 2025 Dr. Jose Ramon Terry DO Admitting physician Active Start: March 27, 2025 Dr. Jose Ramon Terry DO Nurse Practitioner Active Start: March 27, 2025 Dr. Juarez Muñoz MD Nurse Practitioner Active S tart: March 27, 2025 Dr. Chino Masters DO Attending physician Active Start: March 27, 2025 Dr. Chino Masters DO Nurse Practitioner Active Start: March 27, 2025 Team Status: Inactive Member Role/Relationship Status Dates Meir Zepeda MD Primary care physician Active S tart: March 27, 2025 End: April 04, 2025 Dr. Farida Zavala DO Admitting physician Active Start: March End: April 04, 2025 Dr. Farida Zavala DO Attending physician Active Start: March End: April 04, 2025 Dr. Farida Zavala DO Referring Provider Active Start: March End: April 04, 2025 Team Status: Active Member Role/Relationship Status Dates Meir Zepeda MD Primary care physician Active S tart: March 27, 2025 Dr. Farida Zavala DO Admitting physician Active Start: March Dr. Farida Zavala DO Attending physician Active Start: March Dr. Farida Zavala DO Nurse Practitioner Active Start: March Team Status: Active Member Role/Relationship Status Dates Meir Zepeda MD Primary care physician Active S tart: March 27, 2025 Dr. Jaiden Lizarraga MD Attending physician Active Start: March 27, 2025 Dr. Farida Zavala DO Referring Provider Active Start: March Team Status: Active Member Role/Relationship Status Petey Zepeda MD Primary care physician Active S tart: March 30, 2025 Dr. Farida Zavala DO Admitting physician Active Start: March Dr. Farida Zavala DO Attending physician Active Start: March Dr. Farida Zavala DO Nurse Practitioner Active Start: March Team Status: Active Member Role/Relationship Status Dates Meir Zepeda MD Primary care physician Active S tart: March 30, 2025 Dr. Jose Ramon Terry DO Admitting physician Active Start: March 30, 2025 Dr. Jose Ramon Terry DO Attending physician Active Start: March 30, 2025 Dr. Jose Ramon Terry DO Referring Provider Active Start: March 30, 2025 Dr. Jose Ramon Terry DO Nurse Practitioner Active Start: March 30, 2025 Dr. Juarez Muñoz MD Nurse Practitioner Active S tart: March 30, 2025 Dr. Chino Masters DO Nurse Practitioner Active Start: March 30, 2025 Team Status: Active Member Role/Relationship Status Petey Zepeda MD Primary care physician Active S tart: March 31, 2025 Dr. Farida Zavala DO Admitting physician Active Start: March Dr. Farida Zavala DO Attending physician Active Start: March Dr. Farida Zavala DO Nurse Practitioner Active Start: March Team Status: Active Member Role/Relationship Status Petey Zepeda MD Primary care physician Active S tart: April 02, 2025 Dr. Farida Zavala DO Admitting physician Active Start: March Dr. Farida Zavala DO Attending physician Active Start: March Dr. Farida Zavala DO Nurse Practitioner Active Start: March Team Status: Active Member Role/Relationship Status Petey Zepeda MD Primary care physician Active S tart: April 03, 2025 Dr. Farida Zavala DO Admitting physician Active Start: March Dr. Farida Zavala DO Attending physician Active Start: March Dr. Farida Zavala DO Nurse Practitioner Active Start: March Team Status: Inactive Member Role/Relationship Status Petey Zepeda MD Primary care physician Active S tart: April 06, 2025 End: April 06, 2025 Meir Zepeda MD Referring Provider Active Start : April 06, 2025 End: April 06, 2025 Dr. Jose Ramon Terry DO Attending physician Active Start: April 06, 2025 End: April 06, 2025 Team Status: Inactive Member Role/Relationship Status Petey Zepeda MD Primary care physician Active S tart: April 06, 2025 End: April 21, 2025 Dr. Farida Zavala DO Attending physician Active Start: March End: April 21, 2025 Dr. Farida Zavala DO Referring Provider Active Start: March End: April 21, 2025 Team Status: Inactive Member Role/Relationship Status Petey Zepeda MD Primary care physician Active S tart: April 17, 2025 End: April 17, 2025 Meir Zepeda MD Attending physician Active Star t: April 17, 2025 End: April 17, 2025 Meir Zepeda MD Referring Provider Active Start : April 17, 2025 End: April 17, 2025 Team Status: Inactive Member Role/Relationship Status Petey Zepeda MD Primary care physician Active S tart: May 04, 2025 End: May 04, 2025 Meir Zepeda MD Referring Provider Active Start : May 04, 2025 End: May 04, 2025 Dr. Gilberto Rasmussen MD Attending physician Active Start: May 04, 2025 End: May 04, 2025 Team Status: Active Member Role/Relationship Status Petey Zepeda MD Primary care physician Active S tart: May 04, 2025 NP. Candida Diaz Attending physician Active Sta rt: May 04, 2025 NP. Candida Diaz Referring Provider Active Star t: May 04, 2025 Team Status: Inactive Member Role/Relationship Status Petey Zepeda MD Primary care physician Active S tart: May 04, 2025 End: May 04, 2025 Meir Zepeda MD Referring Provider Active Start : May 04, 2025 End: May 04, 2025 Dr. Jose Ramon Terry DO Attending physician Active Start: May 04, 2025 End: May 04, 2025 Team Status: Inactive Member Role/Relationship Status Petey Zepeda MD Primary care physician Active S tart: May 04, 2025 End: May 04, 2025 Dr. Librado Benjamin MD Attending physician Active Start: May 04, 2025 End: May 04, 2025 Team Status: Inactive Member Role/Relationship Status Petey Zepeda MD Primary care physician Active S tart: January 20, 2025 Dr. Rajani Wharton MD Attending physician Active Start: January 20, 2025 Team Status: Inactive Member Role/Relationship Status Petey Zepeda MD Primary care physician Active S tart: January 29, 2025 End: January 29, 2025 Dr. Gilberto Rasmussen MD Attending physician Active Start: January 29, 2025 End: January 29, 2025 Dr. Gilberto Rasmussen MD Referring Provider Active Start: January 29, 2025 End: January 29, 2025 Team Status: Inactive Member Role/Relationship Status Petey Zepeda MD Primary care physician Active S tart: February 19, 2025 End: February 19, 2025 Meir Zepeda MD Attending physician Active Star t: February 19, 2025 End: February 19, 2025 Meir Zepeda MD Referring Provider Active Start : February 19, 2025 End: February 19, 2025 Team Status: Inactive Member Role/Relationship Status Petey Zepeda MD Primary care physician Active S tart: February 25, 2025 End: February 25, 2025 Meir Zepeda MD Referring Provider Active Start : February 25, 2025 End: February 25, 2025 Dr. Jose Ramon Terry DO Attending physician Active Start: February 25, 2025 End: February 25, 2025 Team Status: Inactive Member Role/Relationship Status Petey Zepeda MD Primary care physician Active S tart: March 09, 2025 End: March 09, 2025 Dr. Gilberto Rasmussen MD Attending physician Active Start: March 09, 2025 End: March 09, 2025 Dr. Gilberto Rasmussen MD Referring Provider Active Start: March 09, 2025 End: March 09, 2025 Team Status: Inactive Member Role/Relationship Status Petey Zepeda MD Primary care physician Active S tart: March 09, 2025 End: March 09, 2025 Dr. Jose Ramon Terry DO Attending physician Active Start: March 09, 2025 End: March 09, 2025 Dr. Jose Ramon Terry DO Referring Provider Active Start: March 09, 2025 End: March 09, 2025 Team Status: Active Member Role/Relationship Status Dates Dr. Addi Hassan MD Attending physician Active Start: March 09, 2025 Dr. Jose Ramon Terry DO Referring Provider Active Start: March 09, 2025 Team Status: Inactive Member Role/Relationship Status Petey Zepeda MD Primary care physician Active S tart: March 13, 2025 End: March 13, 2025 Dr. Jose Ramon Terry DO Attending physician Active Start: March 13, 2025 End: March 13, 2025 Dr. Jose Ramon Terry DO Referring Provider Active Start: March 13, 2025 End: March 13, 2025 Team Status: Active Member Role/Relationship Status Petey Zepeda MD Primary care physician Active S tart: March 24, 2025 Dr. Jose Ramon Terry DO Admitting physician Active Start: March 24, 2025 Dr. Jose Ramon Terry DO Attending physician Active Start: March 24, 2025 Dr. Jose Ramon Terry DO Referring Provider Active Start: March 24, 2025 Dr. Jose Ramon Terry DO Nurse Practitioner Active Start: March 24, 2025 Dr. Juarez Muñoz MD Nurse Practitioner Active S tart: March 24, 2025 Team Status: Inactive Member Role/Relationship Status Petey Zepeda MD Primary care physician Active S tart: March 24, 2025 End: March 27, 2025 Dr. Jose Ramon Terry DO Admitting physician Active Start: March 24, 2025 End: March 27, 2025 Dr. Jose Ramon Terry DO Attending physician Active Start: March 24, 2025 End: March 27, 2025 Dr. Jose Ramon Terry DO Referring Provider Active Start: March 24, 2025 End: March 27, 2025 Dr. Juarez Muñoz MD Nurse Practitioner Active S tart: March 24, 2025 End: March 27, 2025 Dr. Chino Masters DO Nurse Practitioner Active Start: March 24, 2025 End: March 27, 2025 Team Status: Active Member Role/Relationship Status Petey Zepeda MD Primary care physician Active S tart: March 24, 2025 Dr. Jose Ramon Terry DO Admitting physician Active Start: March 24, 2025 Dr. Jose Ramon Terry DO Referring Provider Active Start: March 24, 2025 Dr. Jose Ramon Terry DO Nurse Practitioner Active Start: March 24, 2025 Dr. Juarez Muñoz MD Nurse Practitioner Active S tart: March 24, 2025 Dr. Chino Masters DO Attending physician Active Start: March 24, 2025 Dr. Chino Masters DO Nurse Practitioner Active Start: March 24, 2025 Team Status: Active Member Role/Relationship Status Petey Zepeda MD Primary care physician Active S tart: March 25, 2025 Dr. Jose Ramon Terry DO Admitting physician Active Start: March 25, 2025 Dr. Jose Ramon Terry DO Attending physician Active Start: March 25, 2025 Dr. Jose Ramon Terry DO Referring Provider Active Start: March 25, 2025 Dr. Jose Ramon Terry DO Nurse Practitioner Active Start: March 25, 2025 Dr. Juarez Muñoz MD Nurse Practitioner Active S tart: March 25, 2025 Dr. Chino Masters DO Nurse Practitioner Active Start: March 25, 2025 Team Status: Active Member Role/Relationship Status Dates Meir Zepeda MD Primary care physician Active S tart: March 25, 2025 Dr. Jose Ramon Teryr DO Admitting physician Active Start: March 25, 2025 Dr. Jose Ramon Terry DO Nurse Practitioner Active Start: March 25, 2025 Dr. Juarez Muñoz MD Nurse Practitioner Active S tart: March 25, 2025 Dr. Chino Masters DO Attending physician Active Start: March 25, 2025 Dr. Chino Masters DO Nurse Practitioner Active Start: March 25, 2025 Team Status: Active Member Role/Relationship Status Dates Meir Zepeda MD Primary care physician Active S tart: March 26, 2025 Dr. Jose Ramon Terry DO Admitting physician Active Start: March 26, 2025 Dr. Jose Ramon Terry DO Referring Provider Active Start: March 26, 2025 Dr. Jose Ramon Terry DO Nurse Practitioner Active Start: March 26, 2025 Dr. Juarez Muñoz MD Nurse Practitioner Active S tart: March 26, 2025 Dr. Chino Masters DO Nurse Practitioner Active Start: March 26, 2025 Dr. Juve Johnson MD Attending physician Active Start: March 26, 2025 Team Status: Active Member Role/Relationship Status Dates Meir Zepeda MD Primary care physician Active S tart: March 26, 2025 Dr. Jose Ramon Terry DO Admitting physician Active Start: March 26, 2025 Dr. Jose Ramon Terry DO Nurse Practitioner Active Start: March 26, 2025 Dr. Juarez Muñoz MD Nurse Practitioner Active S tart: March 26, 2025 Dr. Chino Masters DO Attending physician Active Start: March 26, 2025 Dr. Chino Tereletsky , DO Nurse Practitioner Active Start: March 26, 2025 Team Status: Active Member Role/Relationship Status Dates Meir Zepeda MD Primary care physician Active S tart: March 27, 2025 Dr. Jose Ramon Terry DO Admitting physician Active Start: March 27, 2025 Dr. Jose Ramon Terry DO Attending physician Active Start: March 27, 2025 Dr. Jose Ramon Terry DO Referring Provider Active Start: March 27, 2025 Dr. Jose Ramon Terry DO Nurse Practitioner Active Start: March 27, 2025 Dr. Juarez Muñoz MD Nurse Practitioner Active S tart: March 27, 2025 Dr. Chino Masters DO Nurse Practitioner Active Start: March 27, 2025 Team Status: Active Member Role/Relationship Status Dates Meir Zepeda MD Primary care physician Active S tart: March 27, 2025 Dr. Jose Ramon Terry DO Admitting physician Active Start: March 27, 2025 Dr. Jose Ramon Terry DO Nurse Practitioner Active Start: March 27, 2025 Dr. Juarez Muñoz MD Nurse Practitioner Active S tart: March 27, 2025 Dr. Chino Masters DO Attending physician Active Start: March 27, 2025 Dr. Chino Masters DO Nurse Practitioner Active Start: March 27, 2025 Team Status: Inactive Member Role/Relationship Status Dates Meir Zepeda MD Primary care physician Active S tart: March 27, 2025 End: April 04, 2025 Dr. Farida Zavala DO Admitting physician Active Start: March End: April 04, 2025 Dr. Farida Zavala DO Attending physician Active Start: March End: April 04, 2025 Dr. Farida Zavala DO Referring Provider Active Start: March End: April 04, 2025 Team Status: Active Member Role/Relationship Status Dates Meir Zepeda MD Primary care physician Active S tart: March 27, 2025 Dr. Farida Zavala DO Admitting physician Active Start: March Dr. Farida Zavala DO Attending physician Active Start: March Dr. Farida Zavala DO Nurse Practitioner Active Start: March Team Status: Active Member Role/Relationship Status Dates Meir Zepeda MD Primary care physician Active S tart: March 27, 2025 Dr. Jaiden Lizarraga MD Attending physician Active Start: March 27, 2025 Dr. Farida Zavala DO Referring Provider Active Start: March Team Status: Active Member Role/Relationship Status Petey Zepeda MD Primary care physician Active S tart: March 30, 2025 Dr. Farida Zavala DO Admitting physician Active Start: March Dr. Farida Zavala DO Attending physician Active Start: March Dr. Farida Zavala DO Nurse Practitioner Active Start: March Team Status: Active Member Role/Relationship Status Petey Zepeda MD Primary care physician Active S tart: March 30, 2025 Dr. Jose Ramon Terry DO Admitting physician Active Start: March 30, 2025 Dr. Jose Ramon Terry DO Attending physician Active Start: March 30, 2025 Dr. Jose Ramon Terry DO Referring Provider Active Start: March 30, 2025 Dr. Jose Ramon Terry DO Nurse Practitioner Active Start: March 30, 2025 Dr. Juarez Muñoz MD Nurse Practitioner Active S tart: March 30, 2025 Dr. Chino Masters DO Nurse Practitioner Active Start: March 30, 2025 Team Status: Active Member Role/Relationship Status Petey Zepeda MD Primary care physician Active S tart: March 31, 2025 Dr. Farida Zavala DO Admitting physician Active Start: March Dr. Farida Zavala DO Attending physician Active Start: March Dr. Farida Zavala DO Nurse Practitioner Active Start: March Team Status: Active Member Role/Relationship Status Petey Zepeda MD Primary care physician Active S tart: April 02, 2025 Dr. Farida Zavala DO Admitting physician Active Start: March Dr. Farida Zavala DO Attending physician Active Start: March Dr. Farida Zavala DO Nurse Practitioner Active Start: March Team Status: Active Member Role/Relationship Status Petey Zepeda MD Primary care physician Active S tart: April 03, 2025 Dr. Farida Zavala DO Admitting physician Active Start: March Dr. Farida Zavala DO Attending physician Active Start: March Dr. Farida Zavala DO Nurse Practitioner Active Start: March Team Status: Inactive Member Role/Relationship Status Petey Zepeda MD Primary care physician Active S tart: April 06, 2025 End: April 06, 2025 Meir Zepeda MD Referring Provider Active Start : April 06, 2025 End: April 06, 2025 Dr. Jose Ramon Terry DO Attending physician Active Start: April 06, 2025 End: April 06, 2025 Team Status: Inactive Member Role/Relationship Status Petey Zepeda MD Primary care physician Active S tart: April 06, 2025 End: April 21, 2025 Dr. Farida Zavala DO Attending physician Active Start: March End: April 21, 2025 Dr. Farida Zavala DO Referring Provider Active Start: March End: April 21, 2025 Team Status: Inactive Member Role/Relationship Status Petey Zepeda MD Primary care physician Active S tart: April 17, 2025 End: April 17, 2025 Meir Zepeda MD Attending physician Active Star t: April 17, 2025 End: April 17, 2025 Meir Zepeda MD Referring Provider Active Start : April 17, 2025 End: April 17, 2025 Team Status: Inactive Member Role/Relationship Status Petey Zepeda MD Primary care physician Active S tart: May 04, 2025 End: May 04, 2025 Meir Zepeda MD Referring Provider Active Start : May 04, 2025 End: May 04, 2025 Dr. Gilberto Rasmussen MD Attending physician Active Start: May 04, 2025 End: May 04, 2025 Team Status: Inactive Member Role/Relationship Status Petey Zepeda MD Primary care physician Active S tart: May 04, 2025 End: May 04, 2025 NP. Candida Diaz Attending physician Active Sta rt: May 04, 2025 End: May 04, 2025 NP. Candida Diaz Referring Provider Active Star t: May 04, 2025 End: May 04, 2025 Team Status: Inactive Member Role/Relationship Status Dates Meir Zepeda MD Primary care physician Active S tart: May 04, 2025 End: May 04, 2025 Meir Zepdea MD Referring Provider Active Start : May 04, 2025 End: May 04, 2025 Dr. Jose Ramon Terry DO Attending physician Active Start: May 04, 2025 End: May 04, 2025 Team Status: Inactive Member Role/Relationship Status Dates Meir Zepeda MD Primary care physician Active S tart: May 04, 2025 End: May 04, 2025 Dr. Libardo Benjamin MD Attending physician Active Start: May 04, 2025 End: May 04, 2025 Team Status: Active Member Role/Relationship Status Dates Meir Zepeda MD Primary care physician Active S tart: May 13, 2025 Dr. Jose Ramon Terry DO Attending physician Active Start: May 13, 2025 Dr. Jose Ramon Terry DO Referring Provider Active Start: May 13, 2025 FOR RECORDS PERTAINING TO PATIENTS [...] BE BASED ON THE PRIMARY CLINICAL RECORDS. [facility] [employer] [facility]. provides no warranty or guarantee of the accuracy or completeness of information in this document.
[2025-07-15 12:23] LABS: Hematocrit 40.2 % (37-47); Hemoglobin 12.9 g/dL (12.0-15.0); Immature Granulocytes Count 0.120 X10^3/uL (0.0-0.0); Mean Corp Hgb Conc 32.1 g/dL (32-36); Mean Corpuscular Volume 90.3 fL (81-99); Mean Platelet Vol. 9.8 fl (6.2-12.0); NRBC Flagged by Analyzer 0 % (0-5); Platelet Count 352 K/mm3 (150-450); RBC Distribution Width CV 15.1 % (11.6-14.6); RBC Distribution Width SD 50.4 fl (35.1-43.9); Red Blood Count 4.45 M/mm3 (4.2-5.4); White Blood Count 7.8 K/mm3 (4.4-11.0)
[2025-07-15 12:46] LABS: AST(SGOT) 22 U/L (<=31); Alanine Aminotransfer ALT/SGPT 20 U/L (<=34); Albumin, Serum 4.3 g/dL (3.4-4.8); Alkaline Phosphatase 83 U/L (35-104); Anion Gap 12 (7-18); BUN 17 mg/dL (4-19); BUN/Creat Ratio 25.9 RATIO (10-20); Calcium,Total 9.6 mg/dL (7.6-11.0); Carbon Dioxide 29.3 mmol/L (20.0-29.0); Chloride 101 mmol/L (96-106); Globulin 3.1 g/dL (2.2-4.2); Glucose 149 mg/dL (70-99); Potassium 4.1 mmol/L (3.5-5.1)
== END | disposition home or self-care (01) ==
LOC: MTLAB 10:42
PROVIDERS: PCP Family Medicine; Referring Provider Internal Medicine Rheumatology; Visit Provider Internal Medicine Rheumatology
DX: M06.4 Inflammatory polyarthropathy (principal); Z79.899 Other long term (current) drug therapy
CPT/HCPCS: 36415; 80053; 85025